=== PATIENT | female | born 2000 | race Caucasian/White ===

== ENCOUNTER 2021-03-09 08:04 | Inpatient (IN) ==
[2021-03-09] MEDS ORDERED: MoRPHine SULFATE 4 MG/ML 1 ML CARP\\VIAL IV STA (08:22)
--- NOTE | 2021-03-09 08:30 | Emergency Department Note ---
Impression & Plan Portal vein thrombosis, Superior mesenteric vein thrombosis, Acute vascular insufficiency of intestine ED Provider Note CHIEF COMPLAINT: Diffuse abdominal pain HISTORY OF PRESENTING ILLNESS: This is a 20-year-old female who presents to the emergency department by private vehicle with complaint of diffuse abdominal pain that started this morning a few hours ago and woke her up out of sleep. The patient was recently evaluated about 1 week ago for similar pain and was diagnosed with portal vein thrombosis and superior mesenteric vein thrombosis. The patient was transferred to [facility] in [place] and was admitted for 3 days on a heparin drip and states that she was discharged on Eliquis. She denies having any interventions done while she was in the hospital. She states she is supposed to follow-up with her primary care provider. She does note that she saw her PCP yesterday and they did some blood work. She also notes a history of asplenia from childhood and states that her PCP stopped her penicillin yesterday, which she has been on daily "for years." She states her PCP said that they stopped the penicillin after age 19 for asplenia. The patient has not had any other changes since yesterday. Patient states that the pain is all over her abdomen, is constant, and she describes it as a dull ache. She rates the pain 8/10. She took 2 extra strength Tylenol this morning without any relief, and she notes this was previously controlling her pain. She also has a history of moyamoya disease and notes that she had brain surgery a little over 1 year ago for this, and she takes aspirin and Plavix since that surgery as well. REVIEW OF SYSTEMS: A complete 10 point review of systems was reviewed with the patient with pertinent positives and negatives as per history of present illness. All else were negative. 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 Nontoxic-appearing and in no acute distress, but appears uncomfortable from pain. Well appearing and well nourished. HEENT: Normocephalic, atraumatic. PERRL, EOMI. TMs normal. Pharynx normal. NECK: Supple, full active range of motion without discomfort. RESPIRATORY: Clear to auscultation bilaterally with no wheezing, crackles, rhonchi or stridor. Equal expansion bilaterally. CARDIOVASCULAR: Regular rate and rhythm with no murmurs, rubs or gallops. Normal peripheral perfusion. No edema. GASTROINTESTINAL: Tender to palpation throughout the diffuse abdomen, no rebound tenderness or guarding. Abdomen is soft and nondistended. Obese abdomen. No palpable masses or HSM. Bowel sounds present in all quadrants. No CVA tenderness bilaterally. MUSCULOSKELETAL: Full range of motion of all joints without discomfort. INTEGUMENTARY: No rash or other significant dermatologic conditions noted. NEUROLOGIC: Alert and oriented X 4 with normal affect. Normal strength and sensation in all 4 extremities. Normal speech. Normal gait observed. ED COURSE AND MEDICAL DECISION MAKING: CC: Patient presenting with complaint of diffuse abdominal pain DIFFERENTIAL DIAGNOSIS: Includes, but not limited to mesenteric ischemia, abdominal vein thrombosis, appendicitis, ovarian cyst, ovarian torsion, ectopic , diverticulitis, UTI, small bowel obstruction,aortic pathology, i nflammatory bowel disease, renal colic, PUD, pancreatitis, biliary pathology, hernia, volvulus, constipation, pulmonary embolism, as well as other pathologies. INTERPRETATION OF LABS: Mild leukocytosis, mild anemia, thrombocytosis, no significant electrolyte abnormality, normal renal function, normal liver enzymes and lipase, elevated alk phos. Urinalysis is negative, negative urine . SARS-CoV-2 negative. MEDICATION RECONCILIATION: I attest that I have personally reviewed the darren prabhakar's current medication list. INITIAL VITAL SIGNS REVIEW: I reviewed the patient's initial vital signs and interpret them as follows: T: Afebrile; BP: Normotensive; HR: Mildly tachycardic; RR: Within normal limit; Pulse Ox: Within normal limits on room air. MDM SUMMARY: Patient was evaluated at bedside, history and physical exam performed. Patient is alert and oriented, in no acute distress, resting calmly in stretcher. She is afebrile and nontoxic-appearing, but is noted to be mildly tachycardic and appears uncomfortable from pain. Diffuse abdominal tenderness to palpation throughout, no acute abdomen. Cardiac monitoring: An order was placed for continuous cardiac monitoring. The monitor shows a rate of 107 bpm with sinus tachycardia rhythm. The patient's chart was reviewed, noting her recent evaluation and transfer for thrombosis of the portal vein and superior mesenteric vein. I did request records from [facility] and reviewed these, she was evaluated by vascular surgery and was discharged after 4-day stay on Eliquis. The patient states she has been taking the Eliquis as prescribed and has not missed any doses. Orders were placed for labs, lactic acid level, UA and urine , IV morphine for pain, CT angio of the chest, abdomen and pelvis to evaluate for worsening abdominal pain and flank pain in the setting of tachycardia with known thrombus. Patient discussed with Dr. Wiley, who agrees with my assessment, plan, and disposition. Labs and imaging reviewed, labs notable for mild leukocytosis and her lactate is slightly elevated. 1 L normal saline IV fluid bolus was ordered for hydration and a repeat lactate is pending. CTA of the chest is negative for PE or other abnormality. CTA of the abdomen/pelvis shows progression of her thrombus, with interval development of mesenteric venous congestion associated with multiple small bowel loops within the left mid abdomen and trace interloop fluid. There was no pneumatosis, portal venous gas, or bowel obstruction. Given the findings on the patient's abdominal CTA, I did speak with vascular s suzi at [facility] in [place], Dr. Lora. He did not feel anything needed to be done from a vascular standpoint, but recommended the patient be evaluated by a general surgeon and recommended the patient be transferred to their facility due to her complicated history. I spoke on the phone with Dr. Mendoza, general surgery at [facility], who agreed to accept the patient in transfer. However, they do not have any available beds and she states that it may be as much as 24 hours until they are able to accept the patient in transfer. Dr. Mendoza recommended q6hour lactic acid levels and MIVF and keep her NPO for now. I spoke with Myrna Cerda PA-C with general surgery at [facility], who agrees to be available for the patient's care. I also spoke with MACEY Martinez with the [facility] Hospitalist service, who agrees to evaluate the patient for admission here pending transfer to [facility]. All consent forms and paperwork was completed for the transfer. Patient reassessed multiple times throughout ED stay, she has remained hemodynamically stable and afebrile, her abdominal pain is improved after the morphine and her abdominal exam has remained soft and with no concerns for peritoneal signs. The patient was updated on all results and plan for temporary admission here until she is able to be transferred to [place], all questions were answered to the best of my ability the patient was agreeable to the plan of care. The patient was stable at time of admission. The chart was completed utilizing [employer] Speech voice recognition software. Grammatical errors, random word insertions, pronoun errors, and incomplete sentences are an occasional consequence of this system due to software limitations, ambient noise, and hardware issues. Any formal questions or concerns about the content, text, or information contained within the body of this dictation should be directly addressed to the nurse practitioner for c larification. Past Med/Surg History Medical History Asplenia Brock brock disease Social History Smoking Status: Never smoker Preferred Language: Kyrgyz Feels Safe at Home: Yes Allergies Allergies Allergy/AdvReac Type Severity Reaction Status Date / Time vancomycin Allergy Mild Red/Itchy Unverified 03/09/21 09:49 skin Home Meds Home Medications Medication Instructions Recorded Confirmed aspirin 81 mg tablet,delayed 81 mg PO QAM 03/01/21 03/09/21 release (Aspirin Low Dose) clopidogrel 75 mg tablet (Plavix) 75 mg PO QAM 03/01/21 03/09/21 acetaminophen 500 mg tablet 1,000 mg PO Q6H PRN 03/09/21 03/09/21 (Tylenol Extra Strength) apixaban 5 mg tablet (Eliquis) 5 mg PO BID 03/09/21 03/09/21 benztropine 2 mg tablet 2 mg PO BID 03/09/21 03/09/21 duloxetine 30 mg capsule,delayed 30 mg PO DAILY 03/09/21 03/09/21 release duloxetine 60 mg capsule,delayed 60 mg PO DAILY 03/09/21 03/09/21 release famotidine 20 mg tablet 20 mg PO BID 03/09/21 03/09/21 gabapentin 800 mg tablet 800 mg PO TID 03/09/21 03/09/21 haloperidol 5 mg tablet 5 mg PO DAILY 03/09/21 03/09/21 haloperidol 5 mg tablet 10 mg PO HS 03/09/21 03/09/21 hydroxyzine pamoate 50 mg capsule 50 mg PO TID PRN 03/09/21 03/09/21 mirtazapine 15 mg tablet 15 mg PO HS 03/09/21 03/09/21 propranolol 40 mg tablet 40 mg PO BID 03/09/21 03/09/21 Results & Data (ED) Vital Signs Vital Signs - 24 hr 03/09/21 08:04 03/09/21 08:07 03/09/21 08:22 Temperature 37 C 36.8 C Temperature Source Oral Temporal Artery Scan Pulse Rate 107 H Pulse Rate [Right Finger] 78 Pulse Rhythm [Right Finger] Regular Pulse Strength [Right Finger] Normal Respiratory Rate 17 18 Respiratory Effort / Characteristics Non-Labored Respiratory Depth Normal Blood Pressure 128/83 Blood Pressure [Right Arm] 131/71 Blood Pressure Mean 98 Blood Pressure Mean [Right Arm] 91 Pulse Oximetry 94 98 94 Oxygen Delivery Method Room Air Room Air Room Air Sepsis Recent Fever Within 48 Hours No Sepsis New/Unexplained Change in Mental Status No Sepsis Action Taken by Nursing No Action Required 03/09/21 10:04 03/09/21 12:00 03/09/21 13:54 Temperature 36.6 C 37 C 36.8 C Temperature Source Oral Oral Oral Pulse Rate Pulse Rate [Right Finger] 74 75 81 Pulse Rhythm [Right Finger] Regular Regular Regular Pulse Strength [Right Finger] Respiratory Rate 18 15 16 Respiratory Effort / Characteristics Respiratory Depth Normal Blood Pressure Blood Pressure [Right Arm] 115/67 117/77 116/76 Blood Pressure Mean Blood Pressure Mean [Right Arm] 83 90 89 Pulse Oximetry 94 97 98 Oxygen Delivery Method Room Air Room Air Sepsis Recent Fever Within 48 Hours Sepsis New/Unexplained Change in Mental Status Sepsis Action Taken by Nursing Laboratory Data Result diagrams: 03/09/21 08:55 03/09/21 08:55 Lab Results 03/09/21 03/09/21 03/09/21 Range/Units 08:19 08:19 08:55 WBC 12.12 H (4.8-10.8) K/uL RBC 3.95 L (4.2-5.4) M/uL Hgb 11.7 L (12.0-16.0) g/dL Hct 34.4 L (37-47) % MCV 87.1 (80-100) fL MCH 29.6 (25-34) pg MCHC 34.0 (32-36) g/dL RDW Std Deviation 44.7 (36.4-46.3) fL RDW Coeff of Toni 14.1 (11.5-14.5) % Plt Count 934 H (130-400) K/uL MPV 8.6 (7.4-10.4) fL Immature Gran % (Auto) 0.4 % Neut % (Auto) 63.6 % Lymph % (Auto) 20.4 % [place] % (Auto) 13.2 % Eos % (Auto) 2.1 % Baso % (Auto) 0.3 % Neut # (Auto) 7.71 H (1.4-6.5) K/uL Lymph # (Auto) 2.47 (1.2-3.4) K/uL [place] # (Auto) 1.60 H (0.11-0.59) K/uL Eos # (Auto) 0.25 (0-0.5) K/uL Baso # (Auto) 0.04 (0-0.2) K/uL Immature Gran # (Auto) 0.05 H (0.00-0.02) K/uL Sodium (136-145) mmol/L Potassium (3.5-5.1) mmol/L Chloride (98-107) mmol/L Carbon Dioxide (21-32) mmol/L Anion Gap (3-11) BUN (7-18) mg/dl Creatinine (0.6-1.2) mg/dl Est Cr Clr Drug Dosing ml/min Est GFR ( Amer) ml/min Est GFR (Non-Af Amer) ml/min BUN/Creatinine Ratio (10-20) Glucose (70-99) mg/dl Lactate (0.4-2.0) mmol/L Calcium (8.5-10.1) mg/dl Total Bilirubin (0.2-1) mg/dl AST (15-37) U/L ALT (12-78) U/L Alkaline Phosphatase (45-117) U/L Total Protein (6.4-8.2) gm/dl Albumin (3.4-5.0) gm/dl Globulin (2.5-4.0) gm/dl Albumin/Globulin Ratio (0.9-2) Lipase (73-393) U/L Urine Color Yellow Urine Appearance Clear (Clear) Urine pH 6.5 (4.5-7.5) Ur Specific [place] 1.025 (1.000-1.030) Urine Protein Negative (Negative) Urine Glucose (UA) Negative (Negative) Urine Ketones Negative (Negative) Urine Blood Negative (Negative) Urine Nitrite Negative (Negative) Urine Bilirubin Negative (Negative) Urine Urobilinogen Negative (Negative) Ur Leukocyte Esterase Negative (Negative) POC Ur Test NEG (NEG) COVID-19 Eval Order SARS-CoV-2 (PCR) (Negative) 03/09/21 03/09/21 03/09/21 Range/Units 08:55 09:09 13:15 WBC (4.8-10.8) K/uL RBC (4.2-5.4) M/uL Hgb (12.0-16.0) g/dL Hct (37-47) % MCV (80-100) fL MCH (25-34) pg MCHC (32-36) g/dL RDW Std Deviation (36.4-46.3) fL RDW Coeff of Toni (11.5-14.5) % Plt Count (130-400) K/uL MPV (7.4-10.4) fL Immature Gran % (Auto) % Neut % (Auto) % Lymph % (Auto) % [place] % (Auto) % Eos % (Auto) % Baso % (Auto) % Neut # (Auto) (1.4-6.5) K/uL Lymph # (Auto) (1.2-3.4) K/uL [place] # (Auto) (0.11-0.59) K/uL Eos # (Auto) (0-0.5) K/uL Baso # (Auto) (0-0.2) K/uL Immature Gran # (Auto) (0.00-0.02) K/uL Sodium 139 (136-145) mmol/L Potassium 4.2 (3.5-5.1) mmol/L Chloride 111 H (98-107) mmol/L Carbon Dioxide 22 (21-32) mmol/L Anion Gap 6.0 (3-11) BUN 9 (7-18) mg/dl Creatinine 0.60 (0.6-1.2) mg/dl Est Cr Clr Drug Dosing 156.1 ml/min Est GFR ( Amer) 150.0 ml/min Est GFR (Non-Af Amer) 129.4 ml/min BUN/Creatinine Ratio 14.5 (10-20) Glucose 100 H (70-99) mg/dl Lactate 2.2 H* (0.4-2.0) mmol/L Calcium 9.0 (8.5-10.1) mg/dl Total Bilirubin 0.3 (0.2-1) mg/dl AST 34 (15-37) U/L ALT 58 (12-78) U/L Alkaline Phosphatase 258 H (45-117) U/L Total Protein 7.0 (6.4-8.2) gm/dl Albumin 3.1 L (3.4-5.0) gm/dl Globulin 3.9 (2.5-4.0) gm/dl Albumin/Globulin Ratio 0.8 L (0.9-2) Lipase 293 (73-393) U/L Urine Color Urine Appearance (Clear) Urine pH (4.5-7.5) Ur Specific [place] (1.000-1.030) Urine Protein (Negative) Urine Glucose (UA) (Negative) Urine Ketones (Negative) Urine Blood (Negative) Urine Nitrite (Negative) Urine Bilirubin (Negative) Urine Urobilinogen (Negative) Ur Leukocyte Esterase (Negative) POC Ur Test (NEG) COVID-19 Eval Order Covid19 at [facility] SARS-CoV-2 (PCR) (Negative) 03/09/21 03/09/21 Range/Units 13:15 13:50 WBC (4.8-10.8) K/uL RBC (4.2-5.4) M/uL Hgb (12.0-16.0) g/dL Hct (37-47) % MCV (80-100) fL MCH (25-34) pg MCHC (32-36) g/dL RDW Std Deviation (36.4-46.3) fL RDW Coeff of Toni (11.5-14.5) % Plt Count (130-400) K/uL MPV (7.4-10.4) fL Immature Gran % (Auto) % Neut % (Auto) % Lymph % (Auto) % [place] % (Auto) % Eos % (Auto) % Baso % (Auto) % Neut # (Auto) (1.4-6.5) K/uL Lymph # (Auto) (1.2-3.4) K/uL [place] # (Auto) (0.11-0.59) K/uL Eos # (Auto) (0-0.5) K/uL Baso # (Auto) (0-0.2) K/uL Immature Gran # (Auto) (0.00-0.02) K/uL Sodium (136-145) mmol/L Potassium (3.5-5.1) mmol/L Chloride (98-107) mmol/L Carbon Dioxide (21-32) mmol/L Anion Gap (3-11) BUN (7-18) mg/dl Creatinine (0.6-1.2) mg/dl Est Cr Clr Drug Dosing ml/min Est GFR ( Amer) ml/min Est GFR (Non-Af Amer) ml/min BUN/Creatinine Ratio (10-20) Glucose (70-99) mg/dl Lactate 0.7 (0.4-2.0) mmol/L Calcium (8.5-10.1) mg/dl Total Bilirubin (0.2-1) mg/dl AST (15-37) U/L ALT (12-78) U/L Alkaline Phosphatase (45-117) U/L Total Protein (6.4-8.2) gm/dl Albumin (3.4-5.0) gm/dl Globulin (2.5-4.0) gm/dl Albumin/Globulin Ratio (0.9-2) Lipase (73-393) U/L Urine Color Urine Appearance (Clear) Urine pH (4.5-7.5) Ur Specific [place] (1.000-1.030) Urine Protein (Negative) Urine Glucose (UA) (Negative) Urine Ketones (Negative) Urine Blood (Negative) Urine Nitrite (Negative) Urine Bilirubin (Negative) Urine Urobilinogen (Negative) Ur Leukocyte Esterase (Negative) POC Ur Test (NEG) COVID-19 Eval Order SARS-CoV-2 (PCR) NEGATIVE (Negative) Administered Medications Discontinued Medications Sodium Chloride (Nss 1000ml) 1,000 mls @ 999 mls/hr IV .Q1H1M ONE Stop: 03/09/21 13:37 Last Infusion: 03/09/21 13:57 Dose: 0 mls/hr Documented by: [id number] Admin: 03/09/21 12:57 Dose: 999 mls/hr Documented by: [id number] Morphine Sulfate (Morphine Sulfate 4 Mg/Ml 1 Ml Carp\\Vial) 4 mg IV NOW STA Stop: 03/09/21 08:23 Last Admin: 03/09/21 09:33 Dose: 4 mg Documented by: [id number] Imaging Data Radiologist's Impression: Abdomen/Pelvis CTA 03/09/21 08:22 CT ANGIOGRAPHY OF THE ABDOMEN AND PELVIS CLINICAL HISTORY: diffuse abd pain, recent portal and SMV thrombosis COMPARISON STUDY: CT of the abdomen and pelvis March 01, 2021. TECHNIQUE: Axial images of the abdomen and pelvis were obtained during arterial phase following intravenous injection of 120 cc Optiray 320 IV. Sagittal and coronal reconstructions were viewed as well as maximal intensity projections on an independent 3-D workstation. Automated exposure control was utilized for the study. A dose lowering technique was utilized adhering to the principles of ALARA. FINDINGS: Please note that the chest CT will be reported separately. No pneumatosis, free air or portal venous gas is present. No hepatic lesions are present. There is slight heterogeneity of the liver. Note is again made of extensive portal and superior mesenteric venous thrombus which was shown on CT of March 01, 2021. The amount of flow within the superior mesenteric vein has slightly decreased since prior examination. Vessels are essentially thrombosed. Flow within the feeding veins is also diminished. The findings represent slight progression of extensive thrombus. Note is again made of reactive stranding within the mesentery. Mildly enlarged lymph nodes are also unchanged. Mesenteric venous congestion associated with multiple small bowel loops within the left mid abdomen has increased. There is trace interloop fluid. No definite bowel wall thickening is noted. There is trace ascites. The appendix is normal. The spleen is absent. The adrenal glands, kidneys and pancreas are unremarkable. There is no biliary or pancreatic ductal dilatation. IMPRESSION: 1. Extensive portal and superior mesenteric venous thrombosis with slight progression of thrombosis since CT of March 01, 2021, as detailed above. 2. Interval development of mesenteric venous congestion associated with multiple small bowel loops within the left mid abdomen with trace interloop fluid. No pne umatosis or portal venous gas. 3. Otherwise, unchanged appearance of the abdomen and pelvis, as described above. ACT 112: Negative or not required by law. Electronically signed by: Fitz Javier M.D. 03/09/2021 11:14 AM Chest CTA 03/09/21 08:22 CT ANGIOGRAM OF THE CHEST CLINICAL HISTORY: recent thrombus, tachycardic, flank pain COMPARISON STUDY: No previous studies for comparison. TECHNIQUE: Following the IV administration of 120 mL of Optiray, CT angiogram of the thorax was performed from the thoracic inlet to the lung bases utilizing the pulmonary embolus protocol. Images are reviewed in the axial, sagittal, and coronal planes. IV contrast was administered without complication. MIP imaging was performed. A dose lowering technique was utilized adhering to the principles of ALARA. CT DOSE: 883.34 mGy.cm FINDINGS: Left axillary lymph nodes are the upper limits of normal in size. There is no pathologic mediastinal or hilar lymphadenopathy There was no evidence of thoracic aortic dilatation. There is a left aortic arch with an aberrant right subclavian artery. There were no pulmonary artery filling defects to indicate acute pulmonary embolism. No pleural effusions are visualized. There was no evidence of focal pulmonary consolidation. There is an azygos fissure. The visualized portions the upper abdomen suggest enlargement of the superior mesenteric vein. This is consistent with the patient's known superior mesenteric and portal vein thrombus. IMPRESSION: 1. No evidence of acute pulmonary embolism. 2. Left aortic arch with an aberrant right subclavian artery ACT 112: Negative or not required by law. Electronically signed by: Lemuel Winn M.D. 03/09/2021 10:41 AM Discharge Plan Visit Data Chief Complaint: Abdominal Pain Stated Complaint: BACK AND ABDOMINAL PAIN ED Provider: Christopher Wiley ED Midlevel Provider: Adeline Zhu Discharge Problem: Portal vein thrombosis, Superior mesenteric vein thrombosis, Acute vascular insufficiency of intestine Patient Disposition: Admitted As Inpatient Condition: Good Forms Stand Alone Forms: My [employer] Prescriptions Prescriptions: No Action clopidogrel [Plavix] 75 mg Tablet 75 mg PO QAM RF: 0 aspirin [Aspirin Low Dose] 81 mg Tablet,Delayed Release (Dr/Ec) 81 mg PO QAM RF: 0 acetaminophen [Tylenol Extra Strength] 500 mg Tablet 1,000 mg PO Q6H PRN (Reason: Pain) RF: 0 gabapentin 800 mg tablet 800 mg PO TID RF: 0 haloperidol 5 mg tablet 5 mg PO DAILY RF: 0 haloperidol 5 mg tablet 10 mg PO HS RF: 0 hydroxyzine pamoate 50 mg capsule 50 mg PO TID PRN (Reason: Anxiety) RF: 0 propranolol 40 mg tablet 40 mg PO BID RF: 0 famotidine 20 mg tablet 20 mg PO BID RF: 0 benztropine 2 mg tablet 2 mg PO BID RF: 0 mirtazapine 15 mg tablet 15 mg PO HS RF: 0 duloxetine 30 mg capsule,delayed release(DR/EC) 30 mg PO DAILY RF: 0 duloxetine 60 mg capsule,delayed release(DR/EC) 60 mg PO DAILY RF: 0 Eliquis 5 mg tablet 5 mg PO BID RF: 0 Referrals Referrals: Babatunde Bergman MD [Primary Care Provider] -
[2021-03-09 09:23] LABS: Basophils # (auto) 0.04 K/uL (0-0.2); Basophils % (auto) 0.3 %; Eosinophils # (auto) 0.25 K/uL (0-0.5); Eosinophils % (auto) 2.1 %; Hematocrit (blood only) 34.4 % (37-47); Hemoglobin 11.7 g/dL (12.0-16.0); Immature Granulocytes # (auto) 0.05 K/uL (0.00-0.02); Immature Granulocytes % (auto) 0.4 %; Lymphocytes # (auto) 2.47 K/uL (1.2-3.4); Lymphocytes % (auto) 20.4 %; Mean Corpuscular Hemoglobin 29.6 pg (25-34); Mean Corpuscular Volume 87.1 fL (80-100); Mean Platelet Volume 8.6 fL (7.4-10.4); Monocytes % (auto) 13.2 %; Neutrophils # (auto) 7.71 K/uL (1.4-6.5); Neutrophils % (auto) 63.6 %; Platelet Count 934 K/uL (130-400); RDW Coefficient of Variation 14.1 % (11.5-14.5); RDW Standard Deviation 44.7 fL (36.4-46.3); Red Blood Count 3.95 M/uL (4.2-5.4); White Blood Count 12.12 K/uL (4.8-10.8)
[2021-03-09 09:24] LABS: Appearance Urine Clear (Clear); Bilirubin Urine Negative (Negative); Blood Urine Negative (Negative); Color Urine Yellow; Glucose Urine UA Negative (Negative); Ketones Urine Negative (Negative); Leukocyte Esterase Urine Negative (Negative); Nitrite Urine Negative (Negative); Protein Urine Negative (Negative); Specific Gravity Urine 1.025 (1.000-1.030); Urobilinogen Urine Negative (Negative); pH Urine 6.5 (4.5-7.5)
[2021-03-09 09:41] LABS: Albumin Level 3.1 gm/dl (3.4-5.0); BUN Creatinine Ratio 14.5 (10-20); Creatinine Clr Calc Pharmacy 156.1 ml/min; Est GFR (Non-African American) 129.4 ml/min; Potassium 4.2 mmol/L (3.5-5.1)
[2021-03-09 09:44] LABS: Albumin Globulin Ratio 0.8 (0.9-2); Bilirubin,Total 0.3 mg/dl (0.2-1); Globulin 3.9 gm/dl (2.5-4.0)
--- NOTE | 2021-03-09 10:43 | CT Scan Report ---
CT ANGIOGRAM OF THE CHEST CLINICAL HISTORY: recent thrombus, tachycardic, flank pain COMPARISON STUDY: No previous studies for comparison. TECHNIQUE: Following the IV administration of 120 mL of Optiray, CT angiogram of the thorax was perfo rmed from the thoracic inlet to the lung bases utilizing the pulmonary embolus protocol. Images are r eviewed in the axial, sagittal, and coronal planes. IV contrast was administered without complication . MIP imaging was performed. A dose lowering technique was utilized adhering to the principles of AL LU. CT DOSE: 883.34 mGy.cm FINDINGS: Left axillary lymph nodes are the upper limits of normal in size. There is no pathologic mediastinal or hilar lymphadenopathy There was no evidence of thoracic aortic dilatation. There is a left aortic arch with an aberrant rig ht subclavian artery. There were no pulmonary artery filling defects to indicate acute pulmonary embolism. No pleural effusions are visualized. There was no evidence of focal pulmonary consolidation. There is an azygos fissure. The visualized portions the upper abdomen suggest enlargement of the superior mesenteric vein. This i s consistent with the patient's known superior mesenteric and portal vein thrombus. IMPRESSION: 1. No evidence of acute pulmonary embolism. 2. Left aortic arch with an aberrant right subclavian artery ACT 112: Negative or not required by law. Electronically signed by: Lemuel Winn M.D. 03/09/2021 10:41 AM
--- NOTE | 2021-03-09 11:15 | CT Scan Report ---
CT ANGIOGRAPHY OF THE ABDOMEN AND PELVIS CLINICAL HISTORY: diffuse abd pain, recent portal and SMV thrombosis COMPARISON STUDY: CT of the abdomen and pelvis March 01, 2021. TECHNIQUE: Axial images of the abdomen and pelvis were obtained during arterial phase following intra venous injection of 120 cc Optiray 320 IV. Sagittal and coronal reconstructions were viewed as well a s maximal intensity projections on an independent 3-D workstation. Automated exposure control was uti lized for the study. A dose lowering technique was utilized adhering to the principles of ALARA. FINDINGS: Please note that the chest CT will be reported separately. No pneumatosis, free air or port al venous gas is present. No hepatic lesions are present. There is slight heterogeneity of the liver. Note is again made of extensive portal and superior mesenteric venous thrombus which was shown on CT of March 01, 2021. The amount of flow within the superior mesenteric vein has slightly decreased since prior examination. Vessels are essentially thrombosed. Flow within the feeding veins is also diminis hed. The findings represent slight progression of extensive thrombus. Note is again made of reactive stranding within the mesentery. Mildly enlarged lymph nodes are also unchanged. Mesenteric venous co ngestion associated with multiple small bowel loops within the left mid abdomen has increased. There is trace interloop fluid. No definite bowel wall thickening is noted. There is trace ascites. The [place] endix is normal. The spleen is absent. The adrenal glands, kidneys and pancreas are unremarkable. The re is no biliary or pancreatic ductal dilatation. IMPRESSION: 1. Extensive portal and superior mesenteric venous thrombosis with slight progression of thrombosis s keya CT of March 01, 2021, as detailed above. 2. Interval development of mesenteric venous congestion associated with multiple small bowel loops wi thin the left mid abdomen with trace interloop fluid. No pneumatosis or portal venous gas. 3. Otherwise, unchanged appearance of the abdomen and pelvis, as described above. ACT 112: Negative or not required by law. Electronically signed by: Fitz Javier M.D. 03/09/2021 11:14 AM
[2021-03-09] MEDS ORDERED: SODIUM CHLORIDE 0.9% 1000ML 1,000 ML IV ONE (12:37)
--- NOTE | 2021-03-09 13:45 | Surgery Consultation ---
Date of Consultation March 09, 2021 Assessment & Plan (1) Superior mesenteric vein thrombosis: This is a 20y F with a PMH of brock brock disease, and splenectomy in 2002, who presents to the [facility] ED on 03/09/21 with complaints of abdominal pain. Of significance the patient was here last week and diagnosed with portal and superior mesenteric vein thrombus. She was transferred to [facility] and was on 3 days of IV heparin and transitioned to eliquis prior to discharge. Patient has been doing okay up until this AM she woke up with more severe abdominal pain. She presented to the ER where a CT a/p obtained showed "extensive portal and superior mesenteric venous thrombosis with slight progression of thrombosis since CT of March 01, 2021. As well as interval development of mesenteric venous congestion associated with multiple small bowel loops within the left mid abdomen with trace interloop fluid. No pneumatosis or portal venous gas." WBC 12. Lactate 2.2. Vital signs are stable. On examination patient's abdomen is soft and tender to palpation in the epigastric region. She reports mild improve ment in her pain since arrival. Plan is in place for patient to be transferred to [facility] for further treatment, however there are no beds at this current time. For now the hospitalists will plan to admit with our services on consult if needed. We recommend a vascular consult given the extent of thrombus, should she need anything done procedurally while she is here should she decompensate. We would want to avoid an extensive bowel resection in this patient. In the meantime she will be started on an IV heparin gtt. Plan to continue to monitor patient and repeat labs and lactate q6h. Patient was seen and examined by Dr. Keenan. (2) Portal vein thrombosis: Supervising Physician Co-Signing Physician Notes Last evening I discussed situation with Dr. Oneill vascular surgery apparently he had been contacted on the patient prior visit to the emergency room where he recommended transferring to a tertiary center possibility of doing a TIPS procedure and chemical thrombolysis The patient has a bed available this morning at [facility] and is waiting to be transferred Patient states her abdomen is unchanged as far as discomfort from yesterday and pretty much the physical exam confirms that History of Present Illness History of Present Illness This is a 20y F with a PMH of brock brock disease, & splenectomy in 2002 who presents to the [facility] ED on 03/09/21 with complaints of abdominal pain. Of significance the patient was here last week and diagnosed with portal and superior mesenteric vein thrombus. She was transferred to [facility] due to multiple medical issues and she was on IV heparin for a few days prior to transitioning to Eliquis and discharging to home. Patient says since diagnosis she has had some mild abdominal pain that has been controlled with Tylenol. She went to her PCP yesterday for post discharge follow up and everything went well. Only change is they took her off her twice daily penicillin she was on since s/p splenectomy. Today patient woke up with worsening abdominal pain. She drove her significant other to work and felt like the pain increased over bumps in the road. Upon returning home she attempted to take a nap, but could not get comfortable and sleep. She tried taking Tylenol which usually works for her but today it did not. She then presented to the ER for further evaluation. In the ER a CT a/p was performed that revealed "extensive portal and superior mesenteric venous thrombosis with slight progression of thrombosis since CT of March 01, 2021. As well as interval development of mesenteric venous congestion associated with multiple small bowel loops within the left mid abdomen with trace interloop fluid. No pneumatosis or portal venous gas." Patient denies any fever/chills, nausea/vomiting, diarrhea/constipation, bloody stools. She says she has been eating well without issues. Allergies Allergy/AdvReac Type Severity Reaction Status Date / Time vancomycin Allergy Mild Red/Itchy Unverified 03/09/21 09:49 skin Home Medications Medication Instructions Recorded Confirmed Type aspirin 81 mg tablet,delayed 81 mg PO QAM 03/01/21 03/09/21 History release (Aspirin Low Dose) clopidogrel 75 mg tablet (Plavix) 75 mg PO QAM 03/01/21 03/09/21 History acetaminophen 500 mg tablet 1,000 mg PO Q6H PRN 03/09/21 03/09/21 History (Tylenol Extra Strength) apixaban 5 mg tablet (Eliquis) 5 mg PO BID 03/09/21 03/09/21 History benztropine 2 mg tablet 2 mg PO BID 03/09/21 03/09/21 History duloxetine 30 mg capsule,delayed 30 mg PO DAILY 03/09/21 03/09/21 History release duloxetine 60 mg capsule,delayed 60 mg PO DAILY 03/09/21 03/09/21 History release famotidine 20 mg tablet 20 mg PO BID 03/09/21 03/09/21 History gabapentin 800 mg tablet 800 mg PO TID 03/09/21 03/09/21 History haloperidol 5 mg tablet 5 mg PO DAILY 03/09/21 03/09/21 History haloperidol 5 mg tablet 10 mg PO HS 03/09/21 03/09/21 History hydroxyzine pamoate 50 mg capsule 50 mg PO TID PRN 03/09/21 03/09/21 History mirtazapine 15 mg tablet 15 mg PO HS 03/09/21 03/09/21 History propranolol 40 mg tablet 40 mg PO BID 03/09/21 03/09/21 History Patient History Medical History Asplenia Intermittent asthma Brock brock disease Portal vein thrombosis PTSD (post-traumatic stress disorder) Schizoaffective disorder Superior mesenteric vein thrombosis Thrombocytosis Family History Other Family history non-contributory Social History Smoking Status: Never smoker Hx Alcohol Use: No Hx Substance Use: No Preferred Language: Irish Communication Ability: Effective Online User Experience Strategist Required: No Beliefs That Will Affect Care: None Current Living Situation: Spouse Other Information That Helps Us Care for You: No Feels Safe at Home: Yes Safety Concerns: Feels Safe At This Time Assistive Devices: None Review of Systems Review of Systems: awake/alert Constitutional: no fever and no chills Respiratory: no dyspnea Cardiovascular: no chest pain Gastrointestinal: + abdominal pain; no bloating, no nausea, no vomiting, no change in bowel habits and no blood in stools Physical Exam Physical Exam: awake/alert Constitutional: no acute distress Respiratory: normal respiratory effort Gastrointestinal (Abdomen): Inspection/Auscultation: abdomen not distended Percussion/Palpation: + abdomen tender (in epigastric region) and abdomen soft Results & Data ([facility]) Vital Signs (Past 12 Hours) Vital Signs Temp Pulse Pulse Resp BP BP Pulse Ox 03/09/21 12:00 37 C 75 15 117/77 97 03/09/21 10:04 36.6 C 74 18 115/67 94 03/09/21 08:22 94 03/09/21 08:07 36.8 C 107 H 18 128/83 98 03/09/21 08:04 37 C 78 17 131/71 94 PG Care Time/CCT Total # of Minutes Spent Total Time Spent with Patient: Total time spent is greater than 50% in coordination of care (as documented) at patient's floor/unit and/or counseling patient: Coding Level of Care Code 35399 Inpt Consult Level 3 Diagnoses Superior mesenteric vein thrombosis K55.069 Portal vein thrombosis I81
--- NOTE | 2021-03-09 18:10 | History & Physical Report ---
Date of Service March 09, 2021 Assessment & Plan (1) Superior mesenteric vein thrombosis: (2) Portal vein thrombosis: Plan: 20-year-old female with PMH of moyamoya disease, splenectomy in 2002 who presented to the ED with reports of abdominal pain. Diagnosed last week with superior mesenteric venous and portal vein thrombosis. Treated at [facility] with IV heparin with transition to Eliquis. Repeat CTA ABD/pelvis today shows slight progression of thrombosis. Patient accepted in transfer to [facility] however awaiting bed. Case was discussed with Dr. Geovanni Hair with hematology who recommends holding Eliquis and starting patient on IV heparin. History of Present Illness Chief Complaint: Abdominal pain Primary Care Provider: Babatunde Bergman MD 20-year-old female with PMH intermittent asthma, moyamoya disease, history of splenectomy with resultant thrombocytosis, schizoaffective disorder, PTSD, and other problems listed below who presents to the ED for evaluation abdominal pain. 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 Patient was transferred to [facility] for further management. Patient was placed on a heparin drip and subsequently transitioned to Eliquis. Patient discharged on 03/06. Reports abdominal pain was controlled with Tylenol until today. She then presented back to the ED for further evaluation. Patient reports pain is located in the mid abdomen and along both sides. She denies fevers and chills. No nausea, vomiting, diarrhea. Denies chest pain or shortness of breath. No lightheadedness, dizziness, diaphoresis, syncopal events. Denies urinary symptoms. 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 Patient is hemodynamically stable. Initial lactate 2.2, repeat 0.7. Vascular surgery at [facility] was contacted and patient was accepted in transfer however no beds available at this time. Case was discussed with Dr. Geovanni Hair, hematology, who recommends holding Eliquis and starting IV heparin drip. Allergies Allergy/AdvReac Type Severity Reaction Status Date / Time vancomycin Allergy Mild Red/Itchy Unverified 03/09/21 09:49 skin Home Medications Medication Instructions Recorded Confirmed Type aspirin 81 mg tablet,delayed 81 mg PO QAM 03/01/21 03/09/21 History release (Aspirin Low Dose) clopidogrel 75 mg tablet (Plavix) 75 mg PO QAM 03/01/21 03/09/21 History acetaminophen 500 mg tablet 1,000 mg PO Q6H PRN 03/09/21 03/09/21 History (Tylenol Extra Strength) apixaban 5 mg tablet (Eliquis) 5 mg PO BID 03/09/21 03/09/21 History benztropine 2 mg tablet 2 mg PO BID 03/09/21 03/09/21 History duloxetine 30 mg capsule,delayed 30 mg PO DAILY 03/09/21 03/09/21 History release duloxetine 60 mg capsule,delayed 60 mg PO DAILY 03/09/21 03/09/21 History release famotidine 20 mg tablet 20 mg PO BID 03/09/21 03/09/21 History gabapentin 800 mg tablet 800 mg PO TID 03/09/21 03/09/21 History haloperidol 5 mg tablet 5 mg PO DAILY 03/09/21 03/09/21 History haloperidol 5 mg tablet 10 mg PO HS 03/09/21 03/09/21 History hydroxyzine pamoate 50 mg capsule 50 mg PO TID PRN 03/09/21 03/09/21 History mirtazapine 15 mg tablet 15 mg PO HS 03/09/21 03/09/21 History propranolol 40 mg tablet 40 mg PO BID 03/09/21 03/09/21 History Past Med/Surg History Medical History Asplenia Intermittent asthma Brock brock disease Portal vein thrombosis PTSD (post-traumatic stress disorder) Schizoaffective disorder Superior mesenteric vein thrombosis Thrombocytosis Family History Other Family history non-contributory Social History Smoking Status: Never smoker Hx Alcohol Use: No Hx Substance Use: No Preferred Language: Maltese Communication Ability: Effective Mash Tub Cooker Required: No Beliefs That Will Affect Care: None Current Living Situation: Spouse Feels Safe at Home: Yes Assistive Devices: None Review of Systems Review of Systems: ROS per HPI, all other systems reviewed and negative Physical Exam Constitutional: WD/WN, vitals as above Eyes: PERRL, conjunctivae normal, anicteric sclerae ENMT: external ear and nose normal, oropharynx normal Respiratory: normal respiratory effort, lungs clear to auscultation Cardiovascular: Rate/Rhythm: regular rate and regular rhythm Vessels: normal peripheral pulses Extremities: no edema Gastrointestinal (Abdomen): normal bowel sounds, soft, nontender, no hepatosplenomegaly Musculoskeletal: no cyanosis or clubbing, extremities motor strength 5/5 Skin: no rashes, warm and dry Neurologic: PERRL, EOMI, accommodation nl, no face palsy, no dysarthria Psychiatric: A+Ox3, euthymic affect Results & Data Results & Data ([facility]) Vital Signs (Past 12 Hours) Vital Signs Temp Pulse Pulse Resp BP BP Pulse Ox 03/09/21 17:39 36.8 C 84 18 95 03/09/21 16:25 36.8 C 70 17 116/59 L 97 03/09/21 15:00 36.8 C 72 18 106/84 97 03/09/21 13:54 36.8 C 81 16 116/76 98 03/09/21 12:00 37 C 75 15 117/77 97 03/09/21 10:04 36.6 C 74 18 115/67 94 03/09/21 08:22 94 03/09/21 08:07 36.8 C 107 H 18 128/83 98 03/09/21 08:04 37 C 78 17 131/71 94 Laboratory Results Short CBC 03/09/21 03/09/21 03/09/21 Range/Units 08:55 09:09 13:50 WBC 12.12 H (4.8-10.8) K/uL Hgb 11.7 L (12.0-16.0) g/dL Hct 34.4 L (37-47) % Plt Count 934 H (130-400) K/uL Lactate 2.2 H* 0.7 (0.4-2.0) mmol/L 03/09/21 03/09/21 Range/Units 18:55 19:11 WBC 11.08 H (4.8-10.8) K/uL Hgb 12.2 (12.0-16.0) g/dL Hct 36.7 L (37-47) % Plt Count 912 H (130-400) K/uL Lactate 1.2 (0.4-2.0) mmol/L [facility] 03/09/21 08:55 Sodium 139 Potassium 4.2 Chloride 111 H Carbon Dioxide 22 BUN 9 Creatinine 0.60 Glucose 100 H Calcium 9.0 Liver Function 03/09/21 Range/Units 08:55 Total Bilirubin 0.3 (0.2-1) mg/dl AST 34 (15-37) U/L ALT 58 (12-78) U/L Alkaline Phosphatase 258 H (45-117) U/L Albumin 3.1 L (3.4-5.0) gm/dl Urine 03/09/21 Range/Units 08:19 Urine Color Yellow Urine Appearance Clear (Clear) Urine pH 6.5 (4.5-7.5) Ur Specific [place] 1.025 (1.000-1.030) Urine Protein Negative (Negative) Urine Glucose (UA) Negative (Negative) Diagnostic Findings Abdomen/Pelvis CTA 03/09/21 08:22 CT ANGIOGRAPHY OF THE ABDOMEN AND PELVIS CLINICAL HISTORY: diffuse abd pain, recent portal and SMV thrombosis COMPARISON STUDY: CT of the abdomen and pelvis March 01, 2021. TECHNIQUE: Axial images of the abdomen and pelvis were obtained during arterial phase following intravenous injection of 120 cc Optiray 320 IV. Sagittal and coronal reconstructions were viewed as well as maximal intensity projections on an independent 3-D workstation. Automated exposure control was utilized for the study. A dose lowering technique was utilized adhering to the principles of ALARA. FINDINGS: Please note that the chest CT will be reported separately. No pneumatosis, free air or portal venous gas is present. No hepatic lesions are present. There is slight heterogeneity of the liver. Note is again made of extensive portal and superior mesenteric venous thrombus which was shown on CT of March 01, 2021. The amount of flow within the superior mesenteric vein has slightly decreased since prior examination. Vessels are essentially thrombosed. Flow within the feeding veins is also diminished. The findings represent slight progression of extensive thrombus. Note is again made of reactive stranding within the mesentery. Mildly enlarged lymph nodes are also unchanged. Mesenteric venous congestion associated with multiple small bowel loops within the left mid abdomen has increased. There is trace interloop fluid. No definite bowel wall thickening is noted. There is trace ascites. The appendix is normal. The spleen is absent. The adrenal glands, kidneys and pancreas are unremarkable. There is no biliary or pancreatic ductal dilatation. IMPRESSION: 1. Extensive portal and superior mesenteric venous thrombosis with slight progression of thrombosis since CT of March 01, 2021, as detailed above. 2. Interval development of mesenteric venous congestion associated with multiple small bowel loops within the left mid abdomen with trace interloop fluid. No pneumatosis or portal venous gas. 3. Otherwise, unchanged appearance of the abdomen and pelvis, as described above. ACT 112: Negative or not required by law. Electronically signed by: Fitz Javier M.D. 03/09/2021 11:14 AM Chest CTA 03/09/21 08:22 CT ANGIOGRAM OF THE CHEST CLINICAL HISTORY: recent thrombus, tachycardic, flank pain COMPARISON STUDY: No previous studies for comparison. TECHNIQUE: Following the IV administration of 120 mL of Optiray, CT angiogram of the thorax was performed from the thoracic inlet to the lung bases utilizing the pulmonary embolus protocol. Images are reviewed in the axial, sagittal, and dru nal planes. IV contrast was administered without complication. MIP imaging was performed. A dose lowering technique was utilized adhering to the principles of ALARA. CT DOSE: 883.34 mGy.cm FINDINGS: Left axillary lymph nodes are the upper limits of normal in size. There is no pathologic mediastinal or hilar lymphadenopathy There was no evidence of thoracic aortic dilatation. There is a left aortic arch with an aberrant right subclavian artery. There were no pulmonary artery filling defects to indicate acute pulmonary embolism. No pleural effusions are visualized. There was no evidence of focal pulmonary consolidation. There is an azygos fissure. The visualized portions the upper abdomen suggest enlargement of the superior mesenteric vein. This is consistent with the patient's known superior mesenteric and portal vein thrombus. IMPRESSION: 1. No evidence of acute pulmonary embolism. 2. Left aortic arch with an aberrant right subclavian artery ACT 112: Negative or not required by law. Electronically signed by: Lemuel Winn M.D. 03/09/2021 10:41 AM Code Status & VTE Plan VTE Prophylaxis Plan VTE Prophylaxis will be ordered: No Supervising Physician Co-Signing Physician Notes Attending Addendum: Delayed entry Date of service noted above care coordinated with MACEY andrade please refer to her notes for full details, I agree with her notes patient seen and examined, records reviewed by myself as well on exam, patient seen resting in bed, comfortable not in distress abdominal pain improving no other symptoms VS noted and reviewed oriented x 3, not in distress, speaks in sentences with no effort nor accessory muscle use normal rate, regular rhythm, no murmurs clear breath sounds bilaterally non distended, soft, nontender no bipedal edema, erythema, warmth no neuro deficits WBC 12.2 Hg 11.7 Crea 0.6 ASSESSMENT AND PLAN Progression of superior mesenteric venous and portal vein thrombosis. -- IV heparin awaiting transfer to [facility] other diagnoses and plan of care as per MACEY Ricks MD
[2021-03-09] MEDS ORDERED: HEPARIN SODIUM/DEXTROSE 25,000 UNITS/500 ML BAG IV SCH (18:24)
[2021-03-09] MEDS ORDERED: Heparin IV Adult Wt-Based Standard *NO* Bolus Protocol IV SCH (18:24)
[2021-03-09] MEDS ORDERED: ACETAMINOPHEN 325 MG TAB PO PRN (18:30)
[2021-03-09 19:26] LABS: Basophils # (auto) 0.03 K/uL (0-0.2); Basophils % (auto) 0.3 %; Eosinophils # (auto) 0.31 K/uL (0-0.5); Eosinophils % (auto) 2.8 %; Hematocrit (blood only) 36.7 % (37-47); Hemoglobin 12.2 g/dL (12.0-16.0); Immature Granulocytes # (auto) 0.02 K/uL (0.00-0.02); Immature Granulocytes % (auto) 0.2 %; Lymphocytes # (auto) 4.39 K/uL (1.2-3.4); Lymphocytes % (auto) 39.6 %; Mean Corpuscular Hemoglobin 29.8 pg (25-34); Mean Corpuscular Volume 89.7 fL (80-100); Mean Platelet Volume 8.3 fL (7.4-10.4); Monocytes # (auto) 1.32 K/uL (0.11-0.59); Monocytes % (auto) 11.9 %; Neutrophils # (auto) 5.01 K/uL (1.4-6.5); Neutrophils % (auto) 45.2 %; Nucleated RBC # (auto) 0.02 K/uL (0-0); Nucleated RBC % (auto) 0.2 %; Platelet Count 912 K/uL (130-400); RDW Coefficient of Variation 14.4 % (11.5-14.5); RDW Standard Deviation 47.1 fL (36.4-46.3); Red Blood Count 4.09 M/uL (4.2-5.4); White Blood Count 11.08 K/uL (4.8-10.8)
[2021-03-09 19:36] LABS: Mean Corpuscular Hgb Conc 33.2 g/dL (32-36)
[2021-03-09 19:39] LABS: Partial Thromboplastin Time 26.4 Seconds (21.0-31.0); Prothrombin Time 10.6 Seconds (9.0-12.0)
--- NOTE | 2021-03-09 20:35 | Discharge Summary ---
Date of Service March 09, 2021 Admission HPI Per Admitting Provider 20-year-old female with PMH intermittent asthma, moyamoya disease, history of splenectomy with resultant thrombocytosis, schizoaffective disorder, PTSD, and other problems listed below who presents to the ED for evaluation abdominal pain. 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 Patient was transferred to [facility] for further management. Patient was placed on a heparin drip and subsequently transitioned to Eliquis. Patient discharged on 03/06. Reports abdominal pain was controlled with Tylenol until today. She then presented back to the ED for further evaluation. Patient reports pain is located in the mid abdomen and along both sides. She denies fevers and chills. No nausea, vomiting, diarrhea. Denies chest pain or shortness of breath. No lightheadedness, dizziness, diaphoresis, syncopal events. Denies urinary symptoms. 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 Patient is hemodynamically stable. Initial lactate 2.2, repeat 0.7. Vascular surgery at [facility] was contacted and patient was accepted in transfer however no beds available at this time. Case was discussed with Dr. Geovanni Hair, hematology, who recommends holding Eliquis and starting IV heparin drip. Admission Exam Per Admitting Provider Constitutional: WD/WN, vitals as above Eyes: PERRL, conjunctivae normal, anicteric sclerae ENMT: external ear and nose normal, oropharynx normal Respiratory: normal respiratory effort, lungs clear to auscultation Cardiovascular: Rate/Rhythm: regular rate and regular rhythm Vessels: normal peripheral pulses Extremities: no edema Gastrointestinal (Abdomen): normal bowel sounds, soft, nontender, no hepatosplenomegaly Musculoskeletal: no cyanosis or clubbing, extremities motor strength 5/5 Skin: no rashes, warm and dry Neurologic: PERRL, EOMI, accommodation nl, no face palsy, no dysarthria Psychiatric: A+Ox3, euthymic affect Principal Diagnosis 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 Discharge Exam Constitutional WD/WN, vitals as above Eyes PERRL, conjunctivae normal, anicteric sclerae ENMT external ear and nose normal, oropharynx normal Respiratory normal respiratory effort, lungs clear to auscultation Cardiovascular Rate/Rhythm: regular rate and regular rhythm Vessels: normal peripheral pulses Extremities: no edema Gastrointestinal (Abdomen) normal bowel sounds, soft, nontender, no hepatosplenomegaly Musculoskeletal no cyanosis or clubbing, extremities motor strength 5/5 Skin no rashes, warm and dry Neurologic PERRL, EOMI, accommodation nl, no face palsy, no dysarthria Psychiatric A+Ox3, euthymic affect Discharge Data Allergies Allergy/AdvReac Type Severity Reaction Status Date / Time vancomycin Allergy Mild Red/Itchy Unverified 03/09/21 09:49 skin Consultations 03/09/21 13:22 ED Decision to Admit Stat 03/09/21 15:31 Consult Vascular Surgery Routine 03/09/21 17:47 Consult General Surgery Routine Ordered Studies 03/09/21 08:22 CT angio abdomen pelvis w con Stat CT angio chest PE protocol Stat Hospital Course (1) Superior mesenteric vein thrombosis: (2) Portal vein thrombosis: 20-year-old female with PMH of moyamoya disease, splenectomy in 2002 who presented to the ED with reports of abdominal pain. Diagnosed last week with superior mesenteric venous and portal vein thrombosis. Treated at [facility] with IV heparin with transition to Eliquis. Repeat CTA ABD/pelvis today shows slight progression of thrombosis. Patient accepted in transfer to [facility] however awaiting bed. Case was discussed with Dr. Geovanni Hair with hematology who recommends holding Eliquis and starting patient on IV heparin. Attending Addendum: care coordinated with MACEY Carlton please refer to her notes for full details, I agree with her notes patient seen and examined, records reviewed by myself as well on exam, patient seen resting, comfortable no abdominal pain, bleeding no other symptoms Jorge Ricks MD Total Time Total Time Spent Total Time Spent (In Minutes): 40 Discharge Plan Discharge Items Patient Disposition: Transfer Acute Care Hospital Reason For Visit: [facility] THROMBOSIS Discharge Diagnosis: Portal and mesenteric vein thrombus History of moyamoya disease Condition on Discharge: Good Activity: Resume your previous activity Non-emergency contact: Primary Care Provider Call non-emergency contact if: you have any medication questions, your symptoms worsen, your pain is not controlled, your pain is worsening, your pain is unusual for you and your pain is concerning for you Follow-up/Referrals: Babatunde Bergman MD [Primary Care Provider] - Diet: Regular Addtl Attending Provider Instructions: Please refer to discharge summary for further details Pending Studies at Discharge: No Stand-Alone Forms: My [facility] Skilled Items Patient informed of condition?: Yes DNR: No Discharge Level of Care: Other Communicable Disease: No Discharge Prognosis: Stable Lines: Peripheral IV Urinary Catheter: No Medications and DC Order Prescriptions: Continued clopidogrel [Plavix] 75 mg Tablet 75 mg PO QAM RF: 0 aspirin [Aspirin Low Dose] 81 mg Tablet,Delayed Release (Dr/Ec) 81 mg PO QAM RF: 0 acetaminophen [Tylenol Extra Strength] 500 mg Tablet 1,000 mg PO Q6H PRN (Reason: Pain) RF: 0 gabapentin 800 mg tablet 800 mg PO TID RF: 0 haloperidol 5 mg tablet 5 mg PO DAILY RF: 0 haloperidol 5 mg tablet 10 mg PO HS RF: 0 hydroxyzine pamoate 50 mg capsule 50 mg PO TID PRN (Reason: Anxiety) RF: 0 propranolol 40 mg tablet 40 mg PO BID RF: 0 benztropine 2 mg tablet 2 mg PO BID RF: 0 mirtazapine 15 mg tablet 15 mg PO HS RF: 0 duloxetine 30 mg capsule,delayed release(DR/EC) 30 mg PO DAILY RF: 0 duloxetine 60 mg capsule,delayed release(DR/EC) 60 mg PO DAILY RF: 0 Discontinued Eliquis 5 mg tablet 5 mg PO BID RF: 0 No Action famotidine 20 mg tablet 20 mg PO BID RF: 0 Discharge Orders: Discharge Order (Routine); Ordered 03/09/21 Ordered By: Jorge Ricks Admission Data Admit Date/Time: 03/09/21 13:24 Attending Provider: Jorge Ricks Admit Provider: Jorge Ricks Primary Care Provider: Babatunde Bergman Other Providers: Rudy Keenan ; Jorge Ricks ; Raleigh Oneill Other Interventions: Discharge Summary Assessment (RN) Last Done: 03/10/21 10:38
[2021-03-09] MEDS ORDERED: haloperidoL 5 MG TAB PO SCH (21:00)
[2021-03-09] MEDS ORDERED: MIRTAZAPINE TAB 15 MG TAB PO SCH (21:00)
[2021-03-09] MEDS: PROPRANOLOL HCL 20 MG TAB PO SCH (21:09)
[2021-03-09] MEDS: BENZTROPINE MESYLATE 1 MG TAB PO SCH (21:10)
[2021-03-09] MEDS: FAMOTIDINE 20 MG TAB PO SCH (21:11)
[2021-03-09] MEDS: MoRPHine SULFATE 2 MG/ML CARP IV PRN (21:11)
[2021-03-09] MEDS: GABAPENTIN 800 MG TAB PO SCH (21:11)
[2021-03-10 02:34] LABS: Partial Thromboplastin Time 53.4 Seconds (21.0-31.0)
[2021-03-10] MEDS: FAMOTIDINE 20 MG TAB PO SCH (08:16)
[2021-03-10] MEDS: PROPRANOLOL HCL 20 MG TAB PO SCH (08:16)
[2021-03-10] MEDS: GABAPENTIN 800 MG TAB PO SCH (08:16)
[2021-03-10] MEDS: BENZTROPINE MESYLATE 1 MG TAB PO SCH (08:17)
[2021-03-10] MEDS: MoRPHine SULFATE 2 MG/ML CARP IV PRN (08:52)
[2021-03-10] MEDS ORDERED: DULoxetine HCL 30 MG CAP PO SCH (09:00)
[2021-03-10] MEDS ORDERED: haloperidoL 5 MG TAB PO SCH (09:00)
[2021-03-10] MEDS ORDERED: ASPIRIN 81 MG ECTAB PO SCH (09:00)
[2021-03-10] MEDS ORDERED: CLOPIDOGREL BISULFATE 75 MG TAB PO SCH (09:00)
[2021-03-10] MEDS ORDERED: DULoxetine HCL 60 MG CAP PO SCH (09:00)
[2021-03-10 09:40] LABS: Hematocrit (blood only) 37.1 % (37-47); Hemoglobin 12.3 g/dL (12.0-16.0); Mean Corpuscular Hemoglobin 29.9 pg (25-34); Mean Corpuscular Hgb Conc 33.2 g/dL (32-36); Mean Platelet Volume 8.3 fL (7.4-10.4); Nucleated RBC # (auto) 0.03 K/uL (0-0); Nucleated RBC % (auto) 0.2 %; Platelet Count 974 K/uL (130-400); RDW Coefficient of Variation 14.3 % (11.5-14.5); RDW Standard Deviation 47.1 fL (36.4-46.3); Red Blood Count 4.12 M/uL (4.2-5.4); White Blood Count 12.76 K/uL (4.8-10.8)
[2021-03-10 10:04] LABS: Basophils # (auto) 0.05 K/uL (0-0.2); Basophils % (auto) 0.4 %; Eosinophils # (auto) 0.45 K/uL (0-0.5); Eosinophils % (auto) 3.5 %; Immature Granulocytes # (auto) 0.03 K/uL (0.00-0.02); Immature Granulocytes % (auto) 0.2 %; Lymphocytes # (auto) 5.73 K/uL (1.2-3.4); Lymphocytes % (auto) 44.9 %; Monocytes # (auto) 1.29 K/uL (0.11-0.59); Monocytes % (auto) 10.1 %; Neutrophils # (auto) 5.21 K/uL (1.4-6.5); Neutrophils % (auto) 40.9 %
[2021-03-10 10:11] LABS: BUN Creatinine Ratio 11.9 (10-20); Calcium 8.9 mg/dl (8.5-10.1); Creatinine Clr Calc Pharmacy 144.8 ml/min; Est GFR (African American) 146.8 ml/min; Est GFR (Non-African American) 126.7 ml/min; Potassium 3.7 mmol/L (3.5-5.1)
--- NOTE | 2021-03-10 19:11 | Hospitalist Progress Note ---
Date of Service March 10, 2021 Assessment & Plan (1) Superior mesenteric vein thrombosis: (2) Portal vein thrombosis: Plan: hemodynamically stable abdominal pain resolved no signs of bleeding tolerating heparin IV Admission and Anticipated Discharge Date Admission Date: March 09, 2021 Subjective delayed entry date of service noted above seen resting in bed, comfortable not in distress states she feels fine overall no abdominal pain, chest pain, dyspnea, palpitations, dizziness no other symptoms states she is ready for transfer to [facility] Review of Systems Review of Systems: all noted and negative except for above Physical Exam Physical Exam: General- oriented x 3, not in distress, speaks in sentences with no effort or accessory muscle use Eyes- anicteric Neck- no JVD Lungs- clear breath sounds bilaterally, no rales/wheezes Heart- normal rate, regular rhythm; no murmurs Abdomen- normal bowel sounds, nondistended, soft, nontender Extremities- no pretibial edema, no calf tenderness Neuro- alert, oriented x 3; no gross focal neurologic deficits Skin- warm & dry Results & Data Results & Data ([facility]) Vital Signs (Past 12 Hours) Vital Signs Temp Pulse Pulse Resp BP BP Pulse Ox 03/10/21 10:38 36.9 C 82 16 112/68 116/59 L 98 03/10/21 08:00 36.9 C 79 82 16 112/68 98
--- NOTE | 2021-03-14 12:33 | Consultation ---
Date of Consultation March 14, 2021 History of Present Illness Attending Physician: Jorge Ricks MD History of Present Illness Pt was transferred prior to being seen by vascular surgery. DO NOT charge pt for this consult. Allergies Allergy/AdvReac Type Severity Reaction Status Date / Time vancomycin Allergy Mild Red/Itchy Unverified 03/09/21 09:49 skin Home Medications Medication Instructions Recorded Confirmed Type aspirin 81 mg tablet,delayed 81 mg PO QAM 03/01/21 03/09/21 History release (Aspirin Low Dose) clopidogrel 75 mg tablet (Plavix) 75 mg PO QAM 03/01/21 03/09/21 History acetaminophen 500 mg tablet 1,000 mg PO Q6H PRN 03/09/21 03/09/21 History (Tylenol Extra Strength) apixaban 5 mg tablet (Eliquis) 5 mg PO BID 03/09/21 03/09/21 History benztropine 2 mg tablet 2 mg PO BID 03/09/21 03/09/21 History duloxetine 30 mg capsule,delayed 30 mg PO DAILY 03/09/21 03/09/21 History release duloxetine 60 mg capsule,delayed 60 mg PO DAILY 03/09/21 03/09/21 History release famotidine 20 mg tablet 20 mg PO BID 03/09/21 03/09/21 History gabapentin 800 mg tablet 800 mg PO TID 03/09/21 03/09/21 History haloperidol 5 mg tablet 5 mg PO DAILY 03/09/21 03/09/21 History haloperidol 5 mg tablet 10 mg PO HS 03/09/21 03/09/21 History hydroxyzine pamoate 50 mg capsule 50 mg PO TID PRN 03/09/21 03/09/21 History mirtazapine 15 mg tablet 15 mg PO HS 03/09/21 03/09/21 History propranolol 40 mg tablet 40 mg PO BID 03/09/21 03/09/21 History Patient History Medical History Asplenia Intermittent asthma Brock brock disease Portal vein thrombosis PTSD (post-traumatic stress disorder) Schizoaffective disorder Superior mesenteric vein thrombosis Thrombocytosis Family History Other Family history non-contributory Social History Smoking Status: Never smoker Hx Alcohol Use: No Hx Substance Use: No Preferred Language: Swazi Communication Ability: Effective Furnace Feeder Required: No Beliefs That Will Affect Care: None Current Living Situation: Spouse Feels Safe at Home: Yes Assistive Devices: None
== END 2021-03-10 10:39 | disposition short-term general hospital (02) | DRG 441 ==
LOC: ED 08:04 → 1E 13:24
DX: I67.5 Moyamoya disease; K55.059 Acute (reversible) ischemia of intestine, part and extent unspecified; J45.909 Unspecified asthma, uncomplicated; I81 Portal vein thrombosis; Z79.82 Long term (current) use of aspirin; F43.10 Post-traumatic stress disorder, unspecified; F25.9 Schizoaffective disorder, unspecified; Z79.02 Long term (current) use of antithrombotics/antiplatelets; Z90.81 Acquired absence of spleen; Z88.1 Allergy status to other antibiotic agents

== ENCOUNTER 2021-05-10 21:22 | Inpatient (IN) ==
[2021-05-11] MEDS ORDERED: MoRPHine SULFATE 2 MG/ML CARP IV STA (00:10)
[2021-05-11 00:28] LABS: Basophils # (auto) 0.06 K/uL (0-0.2); Basophils % (auto) 0.4 %; Eosinophils # (auto) 0.15 K/uL (0-0.5); Eosinophils % (auto) 0.9 %; Hematocrit (blood only) 40.3 % (37-47); Hemoglobin 13.7 g/dL (12.0-16.0); Immature Granulocytes # (auto) 0.04 K/uL (0.00-0.02); Immature Granulocytes % (auto) 0.2 %; Lymphocytes # (auto) 4.91 K/uL (1.2-3.4); Lymphocytes % (auto) 28.9 %; Mean Corpuscular Hemoglobin 30.2 pg (25-34); Mean Platelet Volume 8.7 fL (7.4-10.4); Monocytes # (auto) 1.95 K/uL (0.11-0.59); Monocytes % (auto) 11.5 %; Neutrophils # (auto) 9.89 K/uL (1.4-6.5); Neutrophils % (auto) 58.1 %; Platelet Count 740 K/uL (130-400); RDW Coefficient of Variation 13.9 % (11.5-14.5); RDW Standard Deviation 45.6 fL (36.4-46.3); Red Blood Count 4.53 M/uL (4.2-5.4)
[2021-05-11 00:35] LABS: Appearance Urine Clear (Clear); Bilirubin Urine Negative (Negative); Blood Urine Negative (Negative); Color Urine Yellow; Glucose Urine UA Negative (Negative); Ketones Urine Negative (Negative); Leukocyte Esterase Urine Negative (Negative); Nitrite Urine Negative (Negative); Protein Urine Negative (Negative); Specific Gravity Urine 1.007 (1.000-1.030); Urobilinogen Urine Negative (Negative); pH Urine 7.5 (4.5-7.5)
[2021-05-11 00:46] LABS: Alanine Aminotransferase 96 U/L (12-78); Albumin Level 3.7 gm/dl (3.4-5.0); Aspartate Aminotransferase 60 U/L (15-37); BUN Creatinine Ratio 7.1 (10-20); Blood Urea Nitrogen 6 mg/dl (7-18); Calcium 9.3 mg/dl (8.5-10.1); Carbon Dioxide 29 mmol/L (21-32); Chloride 104 mmol/L (98-107); Est GFR (African American) 105.2 ml/min; Est GFR (Non-African American) 90.8 ml/min; Glucose 107 mg/dl (70-99); Lipase 70 U/L (73-393); Potassium 3.6 mmol/L (3.5-5.1); Sodium 138 mmol/L (136-145)
[2021-05-11 00:49] LABS: Albumin Globulin Ratio 0.9 (0.9-2); Alkaline Phosphatase 242 U/L (45-117); Bilirubin,Total 0.5 mg/dl (0.2-1); Globulin 4.2 gm/dl (2.5-4.0); Total Protein 7.9 gm/dl (6.4-8.2)
[2021-05-11] MEDS ORDERED: OPTIRAY 320 100ml IV ONE (01:39)
[2021-05-11] MEDS ORDERED: MoRPHine SULFATE 4 MG/ML 1 ML CARP\\VIAL IV STA (02:39)
--- NOTE | 2021-05-11 07:17 | Emergency Department Note ---
History of Present Illness General Chief complaint: Abdominal Pain Stated complaint: ABDOMINAL PAIN Time Seen by Provider: 05/10/21 23:54 Source: patient Mode of arrival: ambulatory Limitations: no limitations History of Present Illness Maximum Pain Intensity: 6 This patient is a 20-year-old female who presents to the emergency department for evaluation of abdominal pain. She states that she was here yesterday for the same symptoms. She was also seen here a few weeks ago and diagnosed with mesenteric adenitis. She states that at that time, the pain was only on her right side, however now her entire abdomen hurts. It hurts to lay down. Tylenol has not helped. She states that her pain now feels different than a few weeks ago when she had a CT scan of her abdomen. Patient currently is on Lovenox due to history of a superior mesenteric vein thrombosis. She denies missing any doses of this. She does also report a history of moyamoya disease. Home Medications Medication Instructions Recorded Confirmed Type acetaminophen 500 mg tablet 1,000 mg PO Q6H PRN 03/09/21 05/11/21 History (Tylenol Extra Strength) benztropine 2 mg tablet 2 mg PO BID 03/09/21 05/11/21 History duloxetine 30 mg capsule,delayed 30 mg PO DAILY 03/09/21 05/11/21 History release duloxetine 60 mg capsule,delayed 60 mg PO DAILY 03/09/21 05/11/21 History release famotidine 20 mg tablet 20 mg PO BID 03/09/21 05/11/21 History gabapentin 800 mg tablet 800 mg PO TID 03/09/21 05/11/21 History haloperidol 5 mg tablet 5 mg PO DAILY 03/09/21 05/11/21 History haloperidol 5 mg tablet 10 mg PO HS 03/09/21 05/11/21 History hydroxyzine pamoate 50 mg capsule 50 mg PO TID PRN 03/09/21 05/11/21 History mirtazapine 15 mg tablet 15 mg PO HS 03/09/21 05/11/21 History propranolol 40 mg tablet 40 mg PO BID 03/09/21 05/11/21 History enoxaparin 60 mg/0.6 mL 60 mg SUBCUT Q12H 04/30/21 05/11/21 History subcutaneous syringe (Lovenox) Allergies Allergy/AdvReac Type Severity Reaction Status Date / Time vancomycin Allergy Mild Red/Itchy Verified 05/09/21 20:25 skin Past Med/Surg History Medical History Asplenia Intermittent asthma Brock brock disease Portal vein thrombosis PTSD (post-traumatic stress disorder) Schizoaffective disorder Superior mesenteric vein thrombosis Thrombocytosis Family History Other Family history non-contributory Social History Smoking Status: Never smoker Hx Alcohol Use: No Hx Substance Use: No Preferred Language: Armenian Communication Ability: Effective Locomotive Engineer Required: No Beliefs That Will Affect Care: None Current Living Situation: Spouse Feels Safe at Home: Yes Assistive Devices: None Review of Systems A total of 10 systems reviewed and were otherwise negative Physical Exam Vital Signs Vital Signs - 24 hr 05/10/21 21:25 05/11/21 00:29 05/11/21 00:30 Temperature 36.6 C Temperature Source Temporal Artery Scan Pulse Rate 101 H 78 Pulse Rate [Right] 81 Pulse Rate from SpO2 Sensor 78 Pulse Rhythm [Right] Regular Pulse Strength [Right] Normal Respiratory Rate 20 16 16 Respiratory Effort / Characteristics Non-Labored Spontaneous Respiratory Depth Normal Blood Pressure 119/73 125/65 Blood Pressure [Right Arm] 114/78 Blood Pressure Mean 88 85 Blood Pressure Mean [Right Arm] 90 Blood Pressure Position Sitting Blood Pressure Position [Right Arm] Lying Pulse Oximetry 96 98 94 Oxygen Delivery Method Room Air Room Air Sepsis Recent Fever Within 48 Hours No Sepsis New/Unexplained Change in Mental Status N/A Sepsis Action Taken by Nursing No Action Required 05/11/21 01:00 05/11/21 01:50 05/11/21 02:00 Temperature Temperature Source Pulse Rate 81 76 86 Pulse Rate [Right] Pulse Rate from SpO2 Sensor 81 76 88 Pulse Rhythm [Right] Pulse Strength [Right] Respiratory Rate 16 20 19 Respiratory Effort / Characteristics Respiratory Depth Blood Pressure 105/77 114/64 Blood Pressure [Right Arm] Blood Pressure Mean 86 80 Blood Pressure Mean [Right Arm] Blood Pressure Position Blood Pressure Position [Right Arm] Pulse Oximetry 95 99 97 Oxygen Delivery Method Sepsis Recent Fever Within 48 Hours Sepsis New/Unexplained Change in Mental Status Sepsis Action Taken by Nursing 05/11/21 02:50 05/11/21 03:00 05/11/21 03:30 Temperature Temperature Source Pulse Rate 86 91 H 93 H Pulse Rate [Right] Pulse Rate from SpO2 Sensor 89 91 H 95 H Pulse Rhythm [Right] Pulse Strength [Right] Respiratory Rate 17 16 18 Respiratory Effort / Characteristics Respiratory Depth Blood Pressure 109/51 L 130/61 102/59 L Blood Pressure [Right Arm] Blood Pressure Mean 70 84 73 Blood Pressure Mean [Right Arm] Blood Pressure Position Blood Pressure Position [Right Arm] Pulse Oximetry 98 94 91 Oxygen Delivery Method Sepsis Recent Fever Within 48 Hours Sepsis New/Unexplained Change in Mental Status Sepsis Action Taken by Nursing 05/11/21 04:00 05/11/21 04:30 05/11/21 05:00 Temperature Temperature Source Pulse Rate 85 89 89 Pulse Rate [Right] Pulse Rate from SpO2 Sensor 85 89 88 Pulse Rhythm [Right] Pulse Strength [Right] Respiratory Rate 17 19 16 Respiratory Effort / Characteristics Respiratory Depth Blood Pressure 115/54 L 105/68 124/66 Blood Pressure [Right Arm] Blood Pressure Mean 74 80 85 Blood Pressure Mean [Right Arm] Blood Pressure Position Blood Pressure Position [Right Arm] Pulse Oximetry 90 91 92 Oxygen Delivery Method Sepsis Recent Fever Within 48 Hours Sepsis New/Unexplained Change in Mental Status Sepsis Action Taken by Nursing 05/11/21 05:30 05/11/21 06:00 Temperature Temperature Source Pulse Rate 88 88 Pulse Rate [Right] Pulse Rate from SpO2 Sensor 87 88 Pulse Rhythm [Right] Pulse Strength [Right] Respiratory Rate 18 20 Respiratory Effort / Characteristics Respiratory Depth Blood Pressure 116/74 110/65 Blood Pressure [Right Arm] Blood Pressure Mean 88 80 Blood Pressure Mean [Right Arm] Blood Pressure Position Blood Pressure Position [Right Arm] Pulse Oximetry 92 97 Oxygen Delivery Method Sepsis Recent Fever Within 48 Hours Sepsis New/Unexplained Change in Mental Status Sepsis Action Taken by Nursing VITALS: Vitals are noted on the nurse's note and reviewed by myself. GENERAL: This is a 20-year-old female, in no acute distress, well-developed well-nourished. SKIN: The skin was without rashes. EARS: External auditory canals clear, tympanic membranes pearly monroe without erythema or effusion bilaterally. EYES: Pupils equal round and reactive to light and accommodation. MOUTH: Mucous membranes moist. Tonsils are not enlarged. Pharynx without erythema or exudate. NECK: Supple without nuchal rigidity. No lymphadenopathy. HEART: Regular rate and rhythm without murmurs gallops or rubs. LUNGS: Clear to auscultation bilaterally without wheezes, rales or rhonchi. ABDOMEN: Positive bowel sounds x 4. Soft, generalized mild tenderness to palpation. No guarding or rebound tenderness. NEURO: Patient was alert and oriented to person place and time. Course Consultations Consultation #1: [facility] hospitalist Administered Medications Discontinued Medications Ioversol (Optiray 320 100ml) 89 ml IV ONCE ONE Stop: 05/11/21 01:40 Last Admin: 05/11/21 01:40 Dose: 89 ml Documented by: [id number] Morphine Sulfate (Morphine Sulfate 2 Mg/Ml Carp) 2 mg IV NOW STA Stop: 05/11/21 00:11 Last Admin: 05/11/21 00:28 Dose: 2 mg Documented by: [id number] Morphine Sulfate (Morphine Sulfate 4 Mg/Ml 1 Ml Carp\Vial) 4 mg IV NOW STA Stop: 05/11/21 02:40 Last Admin: 05/11/21 02:47 Dose: 4 mg Documented by: [id number] Medical Decision Making Differential Diagnosis Appendicitis, ovarian cyst, ovarian torsion, ectopic , TOA, PID, infections, diverticulitis, UTI, obstruction, mesenteric ischemia, aortic pathology, inflammatory bowel disease, renal colic, PUD, pancreatitis, biliary pathology, hernia, volvulus, constipation, as well as other pathologies. Home Medications Current Medication List: was personally reviewed by me Laboratory Data Attestation: I reviewed the patient's lab results. Result diagrams: 05/11/21 00:18 05/11/21 00:18 Lab Results 05/11/21 05/11/21 05/11/21 Range/Units 00:18 00:18 00:18 WBC 17.00 H (4.8-10.8) K/uL RBC 4.53 (4.2-5.4) M/uL Hgb 13.7 (12.0-16.0) g/dL Hct 40.3 (37-47) % MCV 89.0 (80-100) fL MCH 30.2 (25-34) pg MCHC 34.0 (32-36) g/dL RDW Std Deviation 45.6 (36.4-46.3) fL RDW Coeff of Toni 13.9 (11.5-14.5) % Plt Count 740 H (130-400) K/uL MPV 8.7 (7.4-10.4) fL Immature Gran % (Auto) 0.2 % Neut % (Auto) 58.1 % Lymph % (Auto) 28.9 % [place] % (Auto) 11.5 % Eos % (Auto) 0.9 % Baso % (Auto) 0.4 % Neut # (Auto) 9.89 H (1.4-6.5) K/uL Lymph # (Auto) 4.91 H (1.2-3.4) K/uL [place] # (Auto) 1.95 H (0.11-0.59) K/uL Eos # (Auto) 0.15 (0-0.5) K/uL Baso # (Auto) 0.06 (0-0.2) K/uL Immature Gran # (Auto) 0.04 H (0.00-0.02) K/uL Sodium 138 (136-145) mmol/L Potassium 3.6 (3.5-5.1) mmol/L Chloride 104 (98-107) mmol/L Carbon Dioxide 29 (21-32) mmol/L Anion Gap 5.0 (3-11) BUN 6 L (7-18) mg/dl Creatinine 0.90 (0.6-1.2) mg/dl Est Cr Clr Drug Dosing Not Reportable Est GFR ( Amer) 105.2 ml/min Est GFR (Non-Af Amer) 90.8 ml/min BUN/Creatinine Ratio 7.1 L (10-20) Glucose 107 H (70-99) mg/dl Calcium 9.3 (8.5-10.1) mg/dl Total Bilirubin 0.5 (0.2-1) mg/dl AST 60 H (15-37) U/L ALT 96 H (12-78) U/L Alkaline Phosphatase 242 H (45-117) U/L Total Protein 7.9 (6.4-8.2) gm/dl Albumin 3.7 (3.4-5.0) gm/dl Globulin 4.2 H (2.5-4.0) gm/dl Albumin/Globulin Ratio 0.9 (0.9-2) Lipase 70 L (73-393) U/L Urine Color Yellow Urine Appearance Clear (Clear) Urine pH 7.5 (4.5-7.5) Ur Specific Burgess 1.007 (1.000-1.030) Urine Protein Negative (Negative) Urine Glucose (UA) Negative (Negative) Urine Ketones Negative (Negative) Urine Blood Negative (Negative) Urine Nitrite Negative (Negative) Urine Bilirubin Negative (Negative) Urine Urobilinogen Negative (Negative) Ur Leukocyte Esterase Negative (Negative) POC Ur Test (NEG) COVID-19 Eval Order SARS-CoV-2 (PCR) (Negative) 05/11/21 05/11/21 05/11/21 Range/Units 00:18 02:52 02:52 WBC (4.8-10.8) K/uL RBC (4.2-5.4) M/uL Hgb (12.0-16.0) g/dL Hct (37-47) % MCV (80-100) fL MCH (25-34) pg MCHC (32-36) g/dL RDW Std Deviation (36.4-46.3) fL RDW Coeff of Toni (11.5-14.5) % Plt Count (130-400) K/uL MPV (7.4-10.4) fL Immature Gran % (Auto) % Neut % (Auto) % Lymph % (Auto) % [place] % (Auto) % Eos % (Auto) % Baso % (Auto) % Neut # (Auto) (1.4-6.5) K/uL Lymph # (Auto) (1.2-3.4) K/uL [place] # (Auto) (0.11-0.59) K/uL Eos # (Auto) (0-0.5) K/uL Baso # (Auto) (0-0.2) K/uL Immature Gran # (Auto) (0.00-0.02) K/uL Sodium (136-145) mmol/L Potassium (3.5-5.1) mmol/L Chloride (98-107) mmol/L Carbon Dioxide (21-32) mmol/L Anion Gap (3-11) BUN (7-18) mg/dl Creatinine (0.6-1.2) mg/dl Est Cr Clr Drug Dosing Est GFR ( Amer) ml/min Est GFR (Non-Af Amer) ml/min BUN/Creatinine Ratio (10-20) Glucose (70-99) mg/dl Calcium (8.5-10.1) mg/dl Total Bilirubin (0.2-1) mg/dl AST (15-37) U/L ALT (12-78) U/L Alkaline Phosphatase (45-117) U/L Total Protein (6.4-8.2) gm/dl Albumin (3.4-5.0) gm/dl Globulin (2.5-4.0) gm/dl Albumin/Globulin Ratio (0.9-2) Lipase (73-393) U/L Urine Color Urine Appearance (Clear) Urine pH (4.5-7.5) Ur Specific Burg[place] (1.000-1.030) Urine Protein (Negative) Urine Glucose (UA) (Negative) Urine Ketones (Negative) Urine Blood (Negative) Urine Nitrite (Negative) Urine Bilirubin (Negative) Urine Urobilinogen (Negative) Ur Leukocyte Esterase (Negative) POC Ur Test NEG (NEG) COVID-19 Eval Order Covid19 at [facility] SARS-CoV-2 (PCR) NEGATIVE (Negative) Imaging Data Attestation: I personally reviewed and interpreted this imaging study as follows: Radiologist's Impression: CT ABDOMEN & PELVIS With Contrast: The solid organs are within normal limits. There is inflammatory stranding of the mesentery with prominent lymph nodes concerning for panniculitis. Normal appendix. No obstruction. No fracture. Radiologist: Giselle Reddy MD MDM Narrative Continuous monitor technician: Order was placed for continuous monitor technician. Patient was placed on the monitor technician. Patient was noted to be in normal sinus rhythm at an initial rate of 80 bpm. The patient is a 20-year-old female who presents today complaining of generalized abdominal pain. Patient has been seen here twice recently. She did have a CT scan done about 10 days ago which showed findings suggestive of mesenteric adenitis. A repeat CT was performed today as patient reports her symptoms have changed. This shows inflammation of the mesentery, likely panniculitis. Patient has not been coping well with her pain at home. She did require 2 doses of IV pain medication. Patient does not feel that she can go home. [facility] the patient for further care. Impression & Plan Generalized abdominal pain, Mesenteric adenitis Discharge Plan Visit Data Chief Complaint: Abdominal Pain Stated Complaint: ABDOMINAL PAIN ED Provider: Tim Holliday ED Midlevel Provider: Susan Phillips Discharge Problem: Generalized abdominal pain, Mesenteric adenitis Forms Stand Alone Forms: [facility] Prescriptions Prescriptions: No Action acetaminophen [Tylenol Extra Strength] 500 mg Tablet 1,000 mg PO Q6H PRN (Reason: Pain) RF: 0 gabapentin 800 mg tablet 800 mg PO TID RF: 0 haloperidol 5 mg tablet 5 mg PO DAILY RF: 0 haloperidol 5 mg tablet 10 mg PO HS RF: 0 hydroxyzine pamoate 50 mg capsule 50 mg PO TID PRN (Reason: Anxiety) RF: 0 propranolol 40 mg tablet 40 mg PO BID RF: 0 famotidine 20 mg tablet 20 mg PO BID RF: 0 benztropine 2 mg tablet 2 mg PO BID RF: 0 mirtazapine 15 mg tablet 15 mg PO HS RF: 0 duloxetine 30 mg capsule,delayed release(DR/EC) 30 mg PO DAILY RF: 0 duloxetine 60 mg capsule,delayed release(DR/EC) 60 mg PO DAILY RF: 0 enoxaparin [Lovenox] 60 mg/0.6 mL Syringe 60 mg SUBCUT Q12H RF: 0 Referrals Referrals: Babatunde Bergman MD [Primary Care Provider] -
--- NOTE | 2021-05-11 07:42 | History and Physical Report ---
DATE OF ADMISSION: 05/11/21 CHIEF COMPLAINT: Abdominal pain. 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 The patient was recently diagnosed with splenic and portal vein thrombosis, currently on Lovenox. The patient had a splenectomy at the age of 1 or 2 for hereditary spherocytosis. In 10/2019 she started to have recurrent headaches and episodes of syncope which led her to do MRI scan of the brain, which was abnormal and investigations revealed presence of occlusive disease of the right carotid and was documented as moyamoya disease and led to carotid bypass surgery by neurosurgery at [facility] around 12/2019. At that time she was found to have moderate thrombocytosis. In February of this year she was at [facility] with abdominal pain and found to have portal and splenic as well as superior mesenteric vein thrombosis and transferred to [facility]. She was discharged on Eliquis and was readmitted to [facility] to general surgery service and discharged with Lovenox. She also got admitted one more time to [facility] and also discharged on Lovenox. Currently comes again with abdominal pain. CT scan preliminary report unremarkable. Currently, resting comfortably, hemodynamically stable. Denies any chest pain, no shortness of breath, no cough, no nausea, no headache, no blurred vision, no earache, no runny nose, no sore throat. Appetite is okay, no dysphagia, no nausea, no diarrhea or constipation, no blood in stool or black stools, no hematuria. Ambulating okay. ALLERGIES: VANCOMYCIN. PAST MEDICAL HISTORY: As mentioned above. PAST SURGICAL HISTORY: Bilateral carotid artery catheter placement, fusion of skull arteries, nasal surgery, splenectomy, sinus surgery. MEDICATIONS: Currently the patient is on Tylenol 1000 mg p.o. q. 6 hours p.r.n., benztropine 2 mg p.o. b.i.d., duloxetine 90 mg p.o. daily, Lovenox 60 mg subcutaneous b.i.d., famotidine 20 mg p.o. b.i.d., gabapentin 800 mg p.o. t.i.d., haloperidol 5 mg p.o. daily, enalapril 10 mg p.o. at bedtime, hydroxyzine 50 mg p.o. t.i.d. p.r.n., mirtazapine 15 mg p.o. at bedtime, propranolol 40 mg p.o. b.i.d. FAMILY HISTORY: No significant family history. SOCIAL HISTORY: , no smoking. Alcohol, occasional. No drug use. REVIEW OF SYSTEMS: As per HPI. Rest of the review of systems is negative. PHYSICAL EXAMINATION: GENERAL: The patient is moderate build, not in acute distress. VITAL SIGNS: Temperature 36.6, pulse 89, respiratory rate 16, blood pressure 124/66, oxygen 92% on room air. HEENT: Pupils equal, round and reactive to light. Oral mucosa moist. NECK: No JVD, no neck masses. CARDIOVASCULAR: S1 and S2 heard. Regular rate and rhythm. No murmur, no gallop. RESPIRATORY SYSTEM: Normal AP diameter. No accessory muscle use. No wheezing, no crackles. ABDOMEN: Soft, bowel sounds are present. Mild abdominal discomfort, no guarding, no rigidity, no distention. CENTRAL NERVOUS SYSTEM: Cranial nerves II-XII grossly intact, nonfocal. EXTREMITIES: No edema, no erythema. LABORATORY DATA: WBC 17, hemoglobin 13.7, hematocrit 40.3, platelets 740. Sodium 138, potassium 3.6, chloride 104, bicarbonate 29, BUN 6, creatinine 0.9, serum glucose 107, calcium 9.3, total bilirubin 0.5, AST 60, ALT 96, alkaline phosphatase 242. Lipase 17. Urinalysis negative. SARS-CoV-2 PCR negative. IMAGING DATA: CT of abdomen and pelvis with contrast:Superior mesenteric venous thrombosis. Surrounding inflammatory changes including fat stranding and lymphadenopathy may be reactive or represent infectious/inflammatory component. ASSESSMENT AND PLAN: This 20-year-old female who was admitted with splenic and portal vein thrombosis, presents with ongoing abdominal pain. 1. Abdominal pain. The patient has almost 3 months of diagnosis of splenic and portal vein thrombosis on Lovenox, with multiple times admitted with abdominal pain. Pain control with tramadol p.r.n. We will also consider GI evaluation in the hospital. Keep her on full liquid diet and gentle fluids. 2. 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 Continue her home medications. 3. History of hereditary spherocytosis. 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 5. Deep venous thrombosis prophylaxis: Lovenox. DISPOSITION: Observation in medical floor. Expect to discharge home and follow with family doctor. Job ID: [id number] [facility]
--- NOTE | 2021-05-11 07:58 | CT Scan Report ---
CT abd pelvis IV con only CLINICAL INDICATION: MN ^C6 CTR ^diffuse abdominal pain. TECHNIQUE: Helical axial images of the abdomen and pelvis were obtained and displayed at 5 and 1 mm i ntervals. Automated dose lowering techniques and/or adjustment according to patient size were utilize d for this exam. This exam was performed with intravenous contrast. COMPARISON: Comparison is made to CT abdomen and pelvis 04/30/2021 FINDINGS: Lower chest: No acute abnormality Liver: Unremarkable. No focal lesions are seen. Gallbladder and biliary tree: No calcified gallstones. Normal caliber wall. No intra- or extrahepatic biliary ductal dilation. Pancreas: Unremarkable, no focal lesions. Spleen: Patient is status post splenectomy. Adrenals: Unremarkable. Kidneys and ureters: Subcentimeter hypodensities are too small to characterize. Bladder: Unremarkable. Bowel: The appendix is unremarkable. There is diffuse fat stranding in the mesentery without a defini te focus of bowel thickening or obstruction. Lymph nodes Retroperitoneal: Subcentimeter lymph nodes are noted. Mesenteric: Multiple enlarged mesenteric lymph nodes are seen measuring up to 11 mm in diameter. Pelvic: Unremarkable. Reproductive organs: A left ovarian hypodensity is seen compatible with follicle. Peritoneum: A small amount of free fluid is seen in the abdomen. Vessels: Distended and hypodense superior mesenteric vein with surrounding fat stranding compatible w ith thrombosis. Abdominal wall: Soft tissue densities in the subcutaneous fat may represent injection granulomata. Bones: Unremarkable. IMPRESSION: Superior mesenteric venous thrombosis. Surrounding inflammatory changes including fat stranding and l ymphadenopathy may be reactive or represent infectious/inflammatory component. ACT 112: Negative or not required by law. Electronically signed by: Rakesh Dimas M.D. 05/11/2021 7:57 AM
[2021-05-11] MEDS ORDERED: ACETAMINOPHEN HOME PACK 500 MG TABLET PO PRN (09:02)
[2021-05-11] MEDS ORDERED: ONDANSETRON INJ 2 MG/ML 2 ML VIAL IV PRN (09:02)
[2021-05-11] MEDS ORDERED: hydrOXYzine HCl 25 MG TAB PO PRN (09:02)
[2021-05-11] MEDS ORDERED: SODIUM CHLORIDE 0.9% 1000ML 1,000 ML IV SCH (09:02)
[2021-05-11] MEDS ORDERED: POLYETHYLENE (MIRALAX) 17 GM PACK PO PRN (09:02)
[2021-05-11] MEDS ORDERED: PIPERACILL/TAZOBAC CONSULT ACTIVE PRN (09:39)
[2021-05-11] MEDS: traMADol HCL 50 MG TABLET PO PRN ×2 (09:42→20:22)
[2021-05-11] MEDS ORDERED: ENOXAPARIN INJ 60 MG/0.6 ML SYR SQ SCH (10:00)
[2021-05-11] MEDS ORDERED: PIPERACILLIN/TAZOBACTAM 3.375 GM in DEXTROSE 5% 100 ML IV ONE (10:00)
--- NOTE | 2021-05-11 10:29 | Gastrointestinal Consultation ---
Date of Consultation May 11, 2021 Assessment & Plan (1) Diffuse abdominal pain: This is a 20-year-old female with multiple comorbidities including recent splenic, portal vein and superior mesenteric vein thrombosis of unclear etiology. Patient now admitted with right lower quadrant abdominal pain, and is noted to have elevated LFTs. Previous imaging reviewed. On exam abd is soft; no jaundice/icterus; she's afebrile, no tachycardia. - Regarding her thrombotic disease, will obtain Doppler ultrasound of the hepatic and portal veins to further evaluate for any additional occlusive disease - Recommend vascular surgery consult as an outpt; we will arrange - F/u with hematology as an outpt - Will arrange outpt EGD/colonoscopy given her abd pain and h/o mesenteric thrombosis - No obvious need for ABX at this point - For elevated LFTs: MRCP pending - Check liver serologies including viral, AIH labs - Check Tylenol and ETOH level - Daily LFTs, CMP, INR - Diet as tolerated - Avoid hepatotoxins (2) Elevated LFTs: Supervising Physician Co-Signing Physician Notes I performed a history and physical examination of the patient today, including specifically on physical exam - soft abdomen. I have discussed the patient's management with the advanced practitioner. Please refer to the nurse practitioner's note for the documented findings and plan of care. Chronic SMV thrombosis, unclear etiology, on Lovenox, admitted with abdominal pain, lactic acid normal. No signs of mesenteric ischemia. Has abnormal LFTs hence will obtain labs and MRCP and PV duplex US. EGD/colonoscopy as OP F/U with Vascular surgery as OP. History of Present Illness Reason for Consultation: abdominal pain, portal thrombosis Requesting Physician: Dr. Dorado Attending Physician: Charles Merrill MD History of Present Illness This is a 20 y/o female with PMhX schizoaffective disorder, depression, hereditary spherocytosis status post splenectomy age 1 or 2, moyamoya disease, with recent multiple admissions including [facility] for portal and splenic, as well as superior mesenteric vein thrombosis, currently prescribed Lovenox. She is followed by hematology. She presented to the ER yesterday with abdominal pain. CT on admission essentially similar to previous ones, noting SMV thrombosis, surrounding inflammatory changes. GI consulted for abd pain, SMV thrombosis. Of note, she's had elevated LFTs since February. Currently, resting comfortably, hemodynamically stable. She states for the past 4 days, she has had chronic stabbing right lower quadrant abdominal pain rated as an 8 out of 10. No improvement or worsening with any particular factor, including eating or defecation. Otherwise she has no complaints. She has chronic thrombocytosis, baseline ~ 500, today is 740; WBC 17 (chronic). LFTs elevated including ALP (since February 2021). Denies any chest pain, no shortness of breath, no cough, no nausea, no headache, no blurred vision, no earache, no runny nose, no sore throat. Appetite is okay, no dysphagia, no nausea, no diarrhea or constipation, no blood in stool or black stools, no hematuria, jaundice, icterus, pruritus, leg edema. No NSAIDs, EtOH or tobacco use. No herbal medicines. No other new meds. Uses Tylenol may be 1-2000 mg daily. CTAP on admission = Superior mesenteric venous thrombosis. Surrounding inflammatory changes including fat stranding and lymphadenopathy may be reactive or represent infectious/inflammatory component. CTA 02/2021: 1. Redemonstration of extensive portal/superior mesenteric vein thrombosis with associated reactive mesenteric edema. 2. Patent celiac and superior mesenteric arteries. 3. Additional chronic and incidental findings as above. Allergies Allergy/AdvReac Type Severity Reaction Status Date / Time vancomycin Allergy Mild Red/Itchy Verified 05/09/21 20:25 skin Home Medications Medication Instructions Recorded Confirmed Type acetaminophen 500 mg tablet 1,000 mg PO Q6H PRN 03/09/21 05/11/21 History (Tylenol Extra Strength) benztropine 2 mg tablet 2 mg PO BID 03/09/21 05/11/21 History duloxetine 30 mg capsule,delayed 30 mg PO DAILY 03/09/21 05/11/21 History release duloxetine 60 mg capsule,delayed 60 mg PO DAILY 03/09/21 05/11/21 History release famotidine 20 mg tablet 20 mg PO BID 03/09/21 05/11/21 History gabapentin 800 mg tablet 800 mg PO TID 03/09/21 05/11/21 History haloperidol 5 mg tablet 5 mg PO DAILY 03/09/21 05/11/21 History haloperidol 5 mg tablet 10 mg PO HS 03/09/21 05/11/21 History hydroxyzine pamoate 50 mg capsule 50 mg PO TID PRN 03/09/21 05/11/21 History mirtazapine 15 mg tablet 15 mg PO HS 03/09/21 05/11/21 History propranolol 40 mg tablet 40 mg PO BID 03/09/21 05/11/21 History enoxaparin 60 mg/0.6 mL 60 mg SUBCUT Q12H 04/30/21 05/11/21 History subcutaneous syringe (Lovenox) Patient History Medical History Asplenia Intermittent asthma Brock brock disease Portal vein thrombosis PTSD (post-traumatic stress disorder) Schizoaffective disorder Superior mesenteric vein thrombosis Thrombocytosis Family History Other Family history non-contributory Social History Smoking Status: Never smoker Hx Alcohol Use: No Hx Substance Use: No Preferred Language: Iranian Communication Ability: Effective Director Trading Required: No Beliefs That Will Affect Care: None Current Living Situation: Significant Other Other Information That Helps Us Care for You: No Feels Safe at Home: Yes Safety Concerns: Feels Safe At This Time Assistive Devices: None Review of Systems Review of Systems: A complete review of systems is performed and negative except as noted in HPI Physical Exam Constitutional: WD/WN, vitals as above Eyes: Sclera anicteric Neck: trachea midline, no thyromegaly Respiratory: normal respiratory effort, lungs clear to auscultation Cardiovascular: RRR, no murmur, no edema Gastrointestinal (Abdomen): Inspection/Auscultation: abdomen normal to inspection Percussion/Palpation: abdomen soft; no guarding tender to RLQ; no rebound, distention Skin: no rashes, warm and dry Psychiatric: A+Ox3, euthymic affect Results & Data ([facility]) Vital Signs (Past 12 Hours) Vital Signs Temp Pulse Pulse Resp BP BP Pulse Ox 05/11/21 08:53 36.8 C 83 16 102/68 92 05/11/21 08:00 81 14 110/65 96 05/11/21 07:30 83 16 05/11/21 07:00 92 H 17 05/11/21 06:00 88 20 110/65 97 09/16/21 05:30 88 18 116/74 92 05/11/21 05:00 89 16 124/66 92 05/11/21 04:30 89 19 105/68 91 05/11/21 04:00 85 17 115/54 L 90 05/11/21 03:30 93 H 18 102/59 L 91 05/11/21 03:00 91 H 16 130/61 94 05/11/21 02:50 86 17 109/51 L 98 05/11/21 02:00 86 19 114/64 97 05/11/21 01:50 76 20 99 05/11/21 01:00 81 16 105/77 95 05/11/21 00:30 78 16 125/65 94 05/11/21 00:29 81 16 114/78 98 Laboratory Results 05/11/21 05/11/21 05/11/21 Range/Units 02:52 02:52 00:18 WBC (4.8-10.8) K/uL RBC (4.2-5.4) M/uL Hgb (12.0-16.0) g/dL Hct (37-47) % MCV (80-100) fL MCH (25-34) pg MCHC (32-36) g/dL RDW Std Deviation (36.4-46.3) fL RDW Coeff of Toni (11.5-14.5) % Plt Count (130-400) K/uL MPV (7.4-10.4) fL Immature Gran % (Auto) % Neut % (Auto) % Lymph % (Auto) % [place] % (Auto) % Eos % (Auto) % Baso % (Auto) % Neut # (Auto) (1.4-6.5) K/uL Lymph # (Auto) (1.2-3.4) K/uL [place] # (Auto) (0.11-0.59) K/uL Eos # (Auto) (0-0.5) K/uL Baso # (Auto) (0-0.2) K/uL Immature Gran # (Auto) (0.00-0.02) K/uL Sodium (136-145) mmol/L Potassium (3.5-5.1) mmol/L Chloride (98-107) mmol/L Carbon Dioxide (21-32) mmol/L Anion Gap (3-11) BUN (7-18) mg/dl Creatinine (0.6-1.2) mg/dl Est Cr Clr Drug Dosing Est GFR ( Amer) ml/min Est GFR (Non-Af Amer) ml/min BUN/Creatinine Ratio (10-20) Glucose (70-99) mg/dl Calcium (8.5-10.1) mg/dl Total Bilirubin (0.2-1) mg/dl AST (15-37) U/L ALT (12-78) U/L Alkaline Phosphatase (45-117) U/L Total Protein (6.4-8.2) gm/dl Albumin (3.4-5.0) gm/dl Globulin (2.5-4.0) gm/dl Albumin/Globulin Ratio (0.9-2) Lipase (73-393) U/L Urine Color Urine Appearance (Clear) Urine pH (4.5-7.5) Ur Specific [place] (1.000-1.030) Urine Protein (Negative) Urine Glucose (UA) (Negative) Urine Ketones (Negative) Urine Blood (Negative) Urine Nitrite (Negative) Urine Bilirubin (Negative) Urine Urobilinogen (Negative) Ur Leukocyte Esterase (Negative) POC Ur Test NEG (NEG) COVID-19 Eval Order Covid19 at [facility] SARS-CoV-2 (PCR) NEGATIVE (Negative) 05/11/21 05/11/21 05/11/21 Range/Units 00:18 00:18 00:18 WBC 17.00 H (4.8-10.8) K/uL RBC 4.53 (4.2-5.4) M/uL Hgb 13.7 (12.0-16.0) g/dL Hct 40.3 (37-47) % MCV 89.0 (80-100) fL MCH 30.2 (25-34) pg MCHC 34.0 (32-36) g/dL RDW Std Deviation 45.6 (36.4-46.3) fL RDW Coeff of Toni 13.9 (11.5-14.5) % Plt Count 740 H (130-400) K/uL MPV 8.7 (7.4-10.4) fL Immature Gran % (Auto) 0.2 % Neut % (Auto) 58.1 % Lymph % (Auto) 28.9 % [place] % (Auto) 11.5 % Eos % (Auto) 0.9 % Baso % (Auto) 0.4 % Neut # (Auto) 9.89 H (1.4-6.5) K/uL Lymph # (Auto) 4.91 H (1.2-3.4) K/uL [place] # (Auto) 1.95 H (0.11-0.59) K/uL Eos # (Auto) 0.15 (0-0.5) K/uL Baso # (Auto) 0.06 (0-0.2) K/uL Immature Gran # (Auto) 0.04 H (0.00-0.02) K/uL Sodium 138 (136-145) mmol/L Potassium 3.6 (3.5-5.1) mmol/L Chloride 104 (98-107) mmol/L Carbon Dioxide 29 (21-32) mmol/L Anion Gap 5.0 (3-11) BUN 6 L (7-18) mg/dl Creatinine 0.90 (0.6-1.2) mg/dl Est Cr Clr Drug Dosing Not Reportable Est GFR ( Amer) 105.2 ml/min Est GFR (Non-Af Amer) 90.8 ml/min BUN/Creatinine Ratio 7.1 L (10-20) Glucose 107 H (70-99) mg/dl Calcium 9.3 (8.5-10.1) mg/dl Total Bilirubin 0.5 (0.2-1) mg/dl AST 60 H (15-37) U/L ALT 96 H (12-78) U/L Alkaline Phosphatase 242 H (45-117) U/L Total Protein 7.9 (6.4-8.2) gm/dl Albumin 3.7 (3.4-5.0) gm/dl Globulin 4.2 H (2.5-4.0) gm/dl Albumin/Globulin Ratio 0.9 (0.9-2) Lipase 70 L (73-393) U/L Urine Color Yellow Urine Appearance Clear (Clear) Urine pH 7.5 (4.5-7.5) Ur Specific [place] 1.007 (1.000-1.030) Urine Protein Negative (Negative) Urine Glucose (UA) Negative (Negative) Urine Ketones Negative (Negative) Urine Blood Negative (Negative) Urine Nitrite Negative (Negative) Urine Bilirubin Negative (Negative) Urine Urobilinogen Negative (Negative) Ur Leukocyte Esterase Negative (Negative) POC Ur Test (NEG) COVID-19 Eval Order SARS-CoV-2 (PCR) (Negative) Diagnostic Findings CTAP: Superior mesenteric venous thrombosis. Surrounding inflammatory changes including fat stranding and lymphadenopathy may be reactive or represent infectious/inflammatory component.
[2021-05-11] MEDS ORDERED: Heparin IV Adult Wt-Based Standard WITH Bolus Protocol IV SCH (10:41)
[2021-05-11] MEDS ORDERED: HEPARIN SOD (PORCINE) 1000 UNIT/ML IV ONE (11:15)
[2021-05-11 11:23] LABS: Basophils # (auto) 0.04 K/uL (0-0.2); Basophils % (auto) 0.3 %; Eosinophils # (auto) 0.34 K/uL (0-0.5); Eosinophils % (auto) 2.5 %; Hematocrit (blood only) 37.1 % (37-47); Hemoglobin 12.7 g/dL (12.0-16.0); Immature Granulocytes # (auto) 0.03 K/uL (0.00-0.02); Immature Granulocytes % (auto) 0.2 %; Lymphocytes # (auto) 3.93 K/uL (1.2-3.4); Lymphocytes % (auto) 28.9 %; Mean Corpuscular Hemoglobin 30.5 pg (25-34); Mean Platelet Volume 8.4 fL (7.4-10.4); Monocytes # (auto) 2.01 K/uL (0.11-0.59); Monocytes % (auto) 14.8 %; Neutrophils # (auto) 7.24 K/uL (1.4-6.5); Neutrophils % (auto) 53.3 %; Nucleated RBC # (auto) 0.02 K/uL (0-0); Nucleated RBC % (auto) 0.2 %; Platelet Count 659 K/uL (130-400); RDW Standard Deviation 45.8 fL (36.4-46.3); Red Blood Count 4.17 M/uL (4.2-5.4); White Blood Count 13.59 K/uL (4.8-10.8)
[2021-05-11 11:29] LABS: Mean Corpuscular Hgb Conc 34.2 g/dL (32-36)
[2021-05-11] MEDS: PROPRANOLOL HCL 20 MG TAB PO SCH ×2 (11:49→20:18)
[2021-05-11] MEDS: GABAPENTIN 800 MG TAB PO SCH ×3 (11:49→20:16)
[2021-05-11] MEDS: FAMOTIDINE 20 MG TAB PO SCH ×2 (11:49→20:15)
[2021-05-11] MEDS: BENZTROPINE MESYLATE 1 MG TAB PO SCH ×2 (11:49→20:14)
[2021-05-11] MEDS: haloperidoL 5 MG TAB PO SCH ×2 (11:49→20:16)
[2021-05-11] MEDS: DULoxetine HCL 30 MG CAP PO SCH (11:49)
[2021-05-11] MEDS: DULoxetine HCL 60 MG CAP PO SCH (11:49)
[2021-05-11] MEDS: HEPARIN SODIUM/DEXTROSE 25,000 UNITS/500 ML BAG IV SCH (11:52)
[2021-05-11 12:17] LABS: Partial Thromboplastin Time 26.8 Seconds (21.0-31.0)
[2021-05-11] MEDS: MoRPHine SULFATE 2 MG/ML CARP IV PRN (13:08)
--- NOTE | 2021-05-11 13:12 | Hospitalist Progress Note ---
Date of Service May 11, 2021 Assessment & Plan (1) Generalized abdominal pain: (2) Mesenteric adenitis: (3) Superior mesenteric vein thrombosis: Plan: Superior mesenteric vein thrombosis This is a 20-year-old female who was admitted with splenic and portal vein thrombosis, presents with ongoing abdominal pain. 1. Abdominal pain. The patient has almost 3 months of diagnosis of splenic and portal vein thrombosis on Lovenox, with multiple times admitted with abdominal pain. Pain control with tramadol p.r.n. Will add IV morphine [address] abdomen / pelvis - Superior mesenteric venous thrombosis. Surrounding inflammatory changes including fat stranding and lymphadenopathy may be reactive or represent infectious/inflammatory component. Discussed CT abdomen pelvis with the radiologist, reports vein itself is more distended, more inflammation, mesenteric lymph nodes enlarged, possible infection/adenitis Patient uses Lovenox 60 mg every 12 hours Reports using it at 4:45 AM and 4:[address] Hair, hematology, that her antiten a factor should be checked 4 hours after injection For now recommend IV heparin, and monitor for small bowel ischemia Given WBC 17K on admission -also ordered blood cultures and started empiric [facility] also consulted and appreciate their evaluation MRCP ordered, awaiting further recommendations full liquid diet and gentle fluids. 2. 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 Continue her home medications. 3. History of hereditary spherocytosis. 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 DVT prophylaxis: Lovenox changed to IV heparin Admission and Anticipated Discharge Date Admission Date: May 11, 2021 Subjective Patient seen in follow-up of abdominal pain, supraventricular vein thrombosis Patient was admitted this morning by my colleague Dr. Dorado Currently sitting up in bed, in no acute distress, however reports pain 8 out of 10 in her right lower quadrant Also reports it feels worse with eating, reports stabbing pain and also says that usually her pain is at left side of her abdomen Denies any blood in the stool Reports having regular bowel movement once a day, no diarrhea Denies any fevers or chills chest pain, shortness of breath Review of Systems Review of Systems: All systems reviewed & are unremarkable except as noted in Subjective Physical Exam Physical Exam: GENERAL: The patient is moderate build, not in acute distress. HEENT: NC, EOMI, PERRL, Oral mucosa moist. NECK: No JVD, no neck masses. CARDIOVASCULAR: S1 and S2 heard. Regular rate and rhythm. No murmur, no gallop. RESPIRATORY SYSTEM: Normal AP diameter. No accessory muscle use. No wheezing, no crackles. ABDOMEN: Soft, bowel sounds are present. Mild abdominal discomfort pratima. at RLQ, no guarding, no rigidity, no distention. NEURO: Awake and alert, answering questions appropriately, speech fluent, moves extremities EXTREMITIES: No edema, no erythema. Results & Data Results & Data ([facility]) Vital Signs (Past 12 Hours) Vital Signs Temp Pulse Pulse Pulse Resp BP BP 05/11/21 09:00 36.8 C 83 16 102/68 05/11/21 08:53 36.8 C 83 16 102/68 05/11/21 08:00 81 14 110/65 05/11/21 07:30 83 16 05/11/21 07:00 92 H 17 05/11/21 06:00 88 20 110/65 05/11/21 05:30 88 18 116/74 05/11/21 05:00 89 16 124/66 05/11/21 04:30 89 19 105/68 05/11/21 04:00 85 17 115/54 L 05/11/21 03:30 93 H 18 102/59 L 05/11/21 03:00 91 H 16 130/61 05/11/21 02:50 86 17 109/51 L 05/11/21 02:00 86 19 114/64 05/11/21 01:50 76 20 Pulse Ox 05/11/21 09:00 92 05/11/21 08:53 92 05/11/21 08:00 96 05/11/21 07:30 05/11/21 07:00 05/11/21 06:00 97 05/11/21 05:30 92 05/11/21 05:00 92 05/11/21 04:30 91 05/11/21 04:00 90 05/11/21 03:30 91 05/11/21 03:00 94 05/11/21 02:50 98 05/11/21 02:00 97 05/11/21 01:50 99 Laboratory Results 05/11/21 05/11/21 05/11/21 Range/Units 11:05 11:05 02:52 WBC 13.59 H (4.8-10.8) K/uL RBC 4.17 L (4.2-5.4) M/uL Hgb 12.7 (12.0-16.0) g/dL Hct 37.1 (37-47) % MCV 89.0 (80-100) fL MCH 30.5 (25-34) pg MCHC 34.2 (32-36) g/dL RDW Std Deviation 45.8 (36.4-46.3) fL RDW Coeff of Toni 14.0 (11.5-14.5) % Plt Count 659 H (130-400) K/uL MPV 8.4 (7.4-10.4) fL Immature Gran % (Auto) 0.2 % Neut % (Auto) 53.3 % Lymph % (Auto) 28.9 % [place]rick % (Auto) 14.8 % Eos % (Auto) 2.5 % Baso % (Auto) 0.3 % Neut # (Auto) 7.24 H (1.4-6.5) K/uL Lymph # (Auto) 3.93 H (1.2-3.4) K/uL Warrick # (Auto) 2.01 H (0.11-0.59) K/uL Eos # (Auto) 0.34 (0-0.5) K/uL Baso # (Auto) 0.04 (0-0.2) K/uL Immature Gran # (Auto) 0.03 H (0.00-0.02) K/uL Absolute Nucleated RBC 0.02 H (0-0) K/uL Nucleated RBC % (auto) 0.2 % PT 10.0 (9.0-12.0) Seconds INR 1.0 (0.9-1.1) APTT 26.8 (21.0-31.0) Seconds PTT Ratio 1.0 Sodium (136-145) mmol/L Potassium (3.5-5.1) mmol/L Chloride (98-107) mmol/L Carbon Dioxide (21-32) mmol/L Anion Gap (3-11) BUN (7-18) mg/dl Creatinine (0.6-1.2) mg/dl Est Cr Clr Drug Dosing Est GFR ( Amer) ml/min Est GFR (Non-Af Amer) ml/min BUN/Creatinine Ratio (10-20) Glucose (70-99) mg/dl Calcium (8.5-10.1) mg/dl Total Bilirubin (0.2-1) mg/dl AST (15-37) U/L ALT (12-78) U/L Alkaline Phosphatase (45-117) U/L Total Protein (6.4-8.2) gm/dl Albumin (3.4-5.0) gm/dl Globulin (2.5-4.0) gm/dl Albumin/Globulin Ratio (0.9-2) Lipase (73-393) U/L Urine Color Urine Appearance (Clear) Urine pH (4.5-7.5) Ur Specific [place] (1.000-1.030) Urine Protein (Negative) Urine Glucose (UA) (Negative) Urine Ketones (Negative) Urine Blood (Negative) Urine Nitrite (Negative) Urine Bilirubin (Negative) Urine Urobilinogen (Negative) Ur Leukocyte Esterase (Negative) POC Ur Test (NEG) COVID-19 Eval Order SARS-CoV-2 (PCR) NEGATIVE (Negative) 05/11/21 05/11/21 05/11/21 Range/Units 02:52 00:18 00:18 WBC (4.8-10.8) K/uL RBC (4.2-5.4) M/uL Hgb (12.0-16.0) g/dL Hct (37-47) % MCV (80-100) fL MCH (25-34) pg MCHC (32-36) g/dL RDW Std Deviation (36.4-46.3) fL RDW Coeff of Toni (11.5-14.5) % Plt Count (130-400) K/uL MPV (7.4-10.4) fL Immature Gran % (Auto) % Neut % (Auto) % Lymph % (Auto) % [place] % (Auto) % Eos % (Auto) % Baso % (Auto) % Neut # (Auto) (1.4-6.5) K/uL Lymph # (Auto) (1.2-3.4) K/uL [place] # (Auto) (0.11-0.59) K/uL Eos # (Auto) (0-0.5) K/uL Baso # (Auto) (0-0.2) K/uL Immature Gran # (Auto) (0.00-0.02) K/uL Absolute Nucleated RBC (0-0) K/uL Nucleated RBC % (auto) % PT (9.0-12.0) Seconds INR (0.9-1.1) APTT (21.0-31.0) Seconds PTT Ratio Sodium (136-145) mmol/L Potassium (3.5-5.1) mmol/L Chloride (98-107) mmol/L Carbon Dioxide (21-32) mmol/L Anion Gap (3-11) BUN (7-18) mg/dl Creatinine (0.6-1.2) mg/dl Est Cr Clr Drug Dosing Est GFR ( Amer) ml/min Est GFR (Non-Af Amer) ml/min BUN/Creatinine Ratio (10-20) Glucose (70-99) mg/dl Calcium (8.5-10.1) mg/dl Total Bilirubin (0.2-1) mg/dl AST (15-37) U/L ALT (12-78) U/L Alkaline Phosphatase (45-117) U/L Total Protein (6.4-8.2) gm/dl Albumin (3.4-5.0) gm/dl Globulin (2.5-4.0) gm/dl Albumin/Globulin Ratio (0.9-2) Lipase (73-393) U/L Urine Color Yellow Urine Appearance Clear (Clear) Urine pH 7.5 (4.5-7.5) Ur Specific [place] 1.007 (1.000-1.030) Urine Protein Negative (Negative) Urine Glucose (UA) Negative (Negative) Urine Ketones Negative (Negative) Urine Blood Negative (Negative) Urine Nitrite Negative (Negative) Urine Bilirubin Negative (Negative) Urine Urobilinogen Negative (Negative) Ur Leukocyte Esterase Negative (Negative) POC Ur Test NEG (NEG) COVID-19 Eval Order Covid19 at [facility] SARS-CoV-2 (PCR) (Negative) 05/11/21 05/11/21 Range/Units 00:18 00:18 WBC 17.00 H (4.8-10.8) K/uL RBC 4.53 (4.2-5.4) M/uL Hgb 13.7 (12.0-16.0) g/dL Hct 40.3 (37-47) % MCV 89.0 (80-100) fL MCH 30.2 (25-34) pg MCHC 34.0 (32-36) g/dL RDW Std Deviation 45.6 (36.4-46.3) fL RDW Coeff of Toni 13.9 (11.5-14.5) % Plt Count 740 H (130-400) K/uL MPV 8.7 (7.4-10.4) fL Immature Gran % (Auto) 0.2 % Neut % (Auto) 58.1 % Lymph % (Auto) 28.9 % [place] % (Auto) 11.5 % Eos % (Auto) 0.9 % Baso % (Auto) 0.4 % Neut # (Auto) 9.89 H (1.4-6.5) K/uL Lymph # (Auto) 4.91 H (1.2-3.4) K/uL [place] # (Auto) 1.95 H (0.11-0.59) K/uL Eos # (Auto) 0.15 (0-0.5) K/uL Baso # (Auto) 0.06 (0-0.2) K/uL Immature Gran # (Auto) 0.04 H (0.00-0.02) K/uL Absolute Nucleated RBC (0-0) K/uL Nucleated RBC % (auto) % PT (9.0-12.0) Seconds INR (0.9-1.1) APTT (21.0-31.0) Seconds PTT Ratio Sodium 138 (136-145) mmol/L Potassium 3.6 (3.5-5.1) mmol/L Chloride 104 (98-107) mmol/L Carbon Dioxide 29 (21-32) mmol/L Anion Gap 5.0 (3-11) BUN 6 L (7-18) mg/dl Creatinine 0.90 (0.6-1.2) mg/dl Est Cr Clr Drug Dosing Not Reportable Est GFR ( Amer) 105.2 ml/min Est GFR (Non-Af Amer) 90.8 ml/min BUN/Creatinine Ratio 7.1 L (10-20) Glucose 107 H (70-99) mg/dl Calcium 9.3 (8.5-10.1) mg/dl Total Bilirubin 0.5 (0.2-1) mg/dl AST 60 H (15-37) U/L ALT 96 H (12-78) U/L Alkaline Phosphatase 242 H (45-117) U/L Total Protein 7.9 (6.4-8.2) gm/dl Albumin 3.7 (3.4-5.0) gm/dl Globulin 4.2 H (2.5-4.0) gm/dl Albumin/Globulin Ratio 0.9 (0.9-2) Lipase 70 L (73-393) U/L Urine Color Urine Appearance (Clear) Urine pH (4.5-7.5) Ur Specific [place] (1.000-1.030) Urine Protein (Negative) Urine Glucose (UA) (Negative) Urine Ketones (Negative) Urine Blood (Negative) Urine Nitrite (Negative) Urine Bilirubin (Negative) Urine Urobilinogen (Negative) Ur Leukocyte Esterase (Negative) POC Ur Test (NEG) COVID-19 Eval Order SARS-CoV-2 (PCR) (Negative) Medications Administered Current Inpatient Medications Acetaminophen (Acetaminophen 325 Mg Tab) 650 mg PO Q4H PRN PRN Reason: pain/fever Stop: 06/10/21 09:01 Benztropine Mesylate (Benztropine Mesylate 1 Mg Tab) 2 mg PO BID RENU Stop: 06/10/21 09:59 Last Admin: 05/11/21 11:49 Dose: 2 mg Documented by: Duloxetine HCl (Duloxetine Hcl 30 Mg Cap) 30 mg PO DAILY RENU Stop: 06/10/21 09:59 Last Admin: 05/11/21 11:49 Dose: 30 mg Documented by: Duloxetine HCl (Duloxetine Hcl 60 Mg Cap) 60 mg PO DAILY RENU Stop: 06/10/21 09:59 Last Admin: 05/11/21 11:49 Dose: 60 mg Documented by: Famotidine (Famotidine 20 Mg Tab) 20 mg PO BID RENU Stop: 06/10/21 09:59 Last Admin: 05/11/21 11:49 Dose: 20 mg Documented by: Gabapentin (Gabapentin 800 Mg Tab) 800 mg PO TID RENU Stop: 06/10/21 09:59 Last Admin: 05/11/21 11:49 Dose: 800 mg Documented by: Haloperidol (Haloperidol 5 Mg Tab) 5 mg PO DAILY RENU Stop: 06/10/21 09:59 Last Admin: 05/11/21 11:49 Dose: 5 mg Documented by: Haloperidol (Haloperidol 5 Mg Tab) 10 mg PO HS [facility] Stop: 06/10/21 20:59 Hydroxyzine HCl (Hydroxyzine Hcl 25 Mg Tab) 50 mg PO TID PRN PRN Reason: Anxiety Stop: 06/10/21 09:01 Sodium Chloride (Nss 1000ml) 1,000 mls @ 100 mls/hr IV .Q10H [facility] Stop: 05/11/21 19:01 Last Admin: 05/11/21 09:44 Dose: 100 mls/hr Documented by: Heparin Sodium/Dextrose (Heparin Sodium/Dextrose) 25,000 units in 500 mls @ 24 mls/hr IV .[id number] [facility]; Protocol Stop: 06/10/21 10:59 Last Admin: 05/11/21 11:52 Dose: 1,200 units/hr, 24 mls/hr Documented by: Piperacillin Sod/Tazobactam (Sod 3.375 gm/ Dextrose) 115 mls @ 28.75 mls/hr IV Q8H [facility]; Protocol Stop: 05/13/21 14:59 Mirtazapine (Mirtazapine Tab 15 Mg Tab) 15 mg PO HS [facility] Stop: 06/10/21 20:59 Miscellaneous Information (Piperacill/Tazobac Consult Active) 1 ea N/A UD PRN PRN Reason: Consult Stop: 06/10/21 09:38 Morphine Sulfate (Morphine Sulfate 2 Mg/Ml [place]) 2 mg IV Q3H PRN PRN Reason: Pain Stop: 05/25/21 12:26 Ondansetron HCl (Ondansetron Inj 2 Mg/Ml 2 Ml Vial) 4 mg IV Q6H PRN PRN Reason: Nausea Stop: 06/10/21 09:01 Polyethylene Glycol (Polyethylene (Miralax) 17 Gm Pack) 17 gm PO DAILY PRN PRN Reason: Constipation Stop: 06/10/21 09:01 Propranolol HCl (Propranolol Hcl 20 Mg Tab) 40 mg PO BID [facility] Stop: 06/10/21 09:59 Last Admin: 05/11/21 11:49 Dose: 40 mg Documented by: Tramadol HCl (Tramadol Hcl 50 Mg Tablet) 50 mg PO Q6H PRN PRN Reason: Pain Stop: 06/10/21 09:01 Last Admin: 05/11/21 09:42 Dose: 50 mg Documented by:
[2021-05-11 14:40] LABS: Ferritin 55.2 ng/ml (8-388)
[2021-05-11 15:02] LABS: Hepatitis B Surf Ag Rflx Conf Neg (Neg)
[2021-05-11 15:31] LABS: Hepatitis C IgG 13Yrs+Old_Rflx Neg (Neg)
[2021-05-11] MEDS: PIPERACILLIN/TAZOBACTAM 3.375 GM in DEXTROSE 5% 100 ML IV SCH (15:51)
[2021-05-11 19:11] LABS: Partial Thromboplastin Ratio 2.6
[2021-05-11 19:28] LABS: Partial Thromboplastin Time 68.4 Seconds (21.0-31.0)
--- NOTE | 2021-05-11 19:35 | Ultrasound Report ---
DOPPLER ULTRASOUND OF THE HEPATIC AND PORTAL VASCULATURE CLINICAL HISTORY: Splenic and portal venous thrombosis. COMPARISON STUDY: Abdominal CT dated 05/11/2021. FINDINGS: Real-time grayscale and color Doppler sonography of the hepatic and portal vasculature is p erformed. 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 The right and le ft portal venous branches are patent. The hepatic artery is patent with velocities measuring up to 11 7 cm/s. The hepatic veins are patent and maintain normal hepatic venous waveforms. The inferior vena cava is patent. The superior mesenteric vein and the splenic vein were not visualized. IMPRESSION: 1. There is thrombosis in the main portal vein with cavernous transformation. This was better assesse d on today's CT scan. 2. The superior mesenteric vein and the splenic vein were not visualized. This was better evaluated o n today's CT scan. Electronically signed by: Angelito Hanks M.D. 05/11/2021 7:34 PM
--- NOTE | 2021-05-11 20:15 | Magnetic Resonance Report ---
MRCP CLINICAL HISTORY: Elevated hepatic transaminases. COMPARISON STUDY: Abdominal CT dated 05/11/2021. TECHNIQUE: Abdominal MRCP is performed utilizing various T2-weighted sequences in the axial and coron al planes. IV contrast was not administered for this examination. 3-D reformats are created and asses sed. The examination is degraded by motion artifact. Several sequences were repeated in an effort to improve image quality. FINDINGS: The gallbladder is normal in appearance. No gallstones are identified. There is no intra or extrahepa tic biliary ductal dilatation. The common bile duct measures up to 4 mm in diameter. No intraluminal filling defects are identified to suggest choledocholithiasis. The pancreatic duct is normal in calib er. The unenhanced liver, adrenal glands, kidneys, and pancreas are grossly normal. A normal spleen is no t identified and this is presumed surgically absent. Again seen is evidence of thrombosis of the main portal vein with cavernous transformation. There is also thrombosis of the superior mesenteric vein with associated mesenteric lymphadenopathy. The abdominal aorta is normal in caliber. There is trace abdominal ascites, as well as trace pleural effusions. The bony structures are intact as visualized. IMPRESSION: 1. Normal MRCP. 2. Trace pleural effusions and trace abdominal ascites. 3. Again seen is evidence of thrombosis of the main portal vein with cavernous transformation and thr ombosis of the superior mesenteric vein. There is infiltration of the surrounding mesentery. 4. Status post splenectomy. Dictated: 05/11/2021 7:26 PM Transcribed: 05/11/2021 8:08 PM Liv [id number] [email or web address] Electronically signed by: Angelito Hanks M.D. 05/11/2021 8:13 PM
[2021-05-11] MEDS: MIRTAZAPINE TAB 15 MG TAB PO SCH (20:17)
[2021-05-12] MEDS: PIPERACILLIN/TAZOBACTAM 3.375 GM in DEXTROSE 5% 100 ML IV SCH ×4 (00:16→22:46)
[2021-05-12 02:34] LABS: Partial Thromboplastin Ratio 2.2
[2021-05-12 02:50] LABS: Partial Thromboplastin Time 58.8 Seconds (21.0-31.0)
[2021-05-12 05:39] LABS: Hematocrit (blood only) 36.4 % (37-47); Hemoglobin 12.4 g/dL (12.0-16.0); Mean Corpuscular Hgb Conc 34.1 g/dL (32-36); Mean Corpuscular Volume 87.9 fL (80-100); Mean Platelet Volume 8.4 fL (7.4-10.4); Nucleated RBC # (auto) 0.03 K/uL (0-0); Nucleated RBC % (auto) 0.2 %; Platelet Count 641 K/uL (130-400); RDW Coefficient of Variation 14.2 % (11.5-14.5); RDW Standard Deviation 46.1 fL (36.4-46.3); Red Blood Count 4.14 M/uL (4.2-5.4); White Blood Count 15.24 K/uL (4.8-10.8)
[2021-05-12 06:00] LABS: Partial Thromboplastin Ratio 2.7
[2021-05-12 06:05] LABS: Albumin Level 2.9 gm/dl (3.4-5.0); Calcium 8.5 mg/dl (8.5-10.1); Creatinine Clr Calc Pharmacy 127.7 ml/min; Est GFR (African American) 137.8 ml/min; Est GFR (Non-African American) 118.9 ml/min; Magnesium 2.2 mg/dl (1.8-2.4); Potassium 3.8 mmol/L (3.5-5.1)
[2021-05-12 06:08] LABS: Albumin Globulin Ratio 0.8 (0.9-2); Bilirubin,Total 0.6 mg/dl (0.2-1); Globulin 3.7 gm/dl (2.5-4.0); Total Protein 6.6 gm/dl (6.4-8.2)
[2021-05-12 06:20] LABS: Partial Thromboplastin Time 68.4 Seconds (21.0-31.0)
[2021-05-12] MEDS: traMADol HCL 50 MG TABLET PO PRN ×3 (06:42→19:04)
[2021-05-12 06:52] LABS: Basophils # (auto) 0.06 K/uL (0-0.2); Basophils % (auto) 0.4 %; Eosinophils # (auto) 0.51 K/uL (0-0.5); Eosinophils % (auto) 3.3 %; Immature Granulocytes # (auto) 0.04 K/uL (0.00-0.02); Immature Granulocytes % (auto) 0.3 %; Lymphocytes # (auto) 7.12 K/uL (1.2-3.4); Lymphocytes % (auto) 46.7 %; Monocytes # (auto) 1.92 K/uL (0.11-0.59); Monocytes % (auto) 12.6 %; Neutrophils # (auto) 5.59 K/uL (1.4-6.5); Neutrophils % (auto) 36.7 %
[2021-05-12] MEDS: DULoxetine HCL 60 MG CAP PO SCH (08:00)
[2021-05-12] MEDS: DULoxetine HCL 30 MG CAP PO SCH (08:00)
[2021-05-12] MEDS: haloperidoL 5 MG TAB PO SCH ×2 (08:01→20:37)
[2021-05-12] MEDS: FAMOTIDINE 20 MG TAB PO SCH ×2 (08:01→20:36)
[2021-05-12] MEDS: GABAPENTIN 800 MG TAB PO SCH ×3 (08:01→20:36)
[2021-05-12] MEDS: BENZTROPINE MESYLATE 1 MG TAB PO SCH ×2 (08:01→20:36)
[2021-05-12] MEDS: PROPRANOLOL HCL 20 MG TAB PO SCH ×2 (08:03→20:37)
[2021-05-12] MEDS: HEPARIN SODIUM/DEXTROSE 25,000 UNITS/500 ML BAG IV SCH (08:21)
--- NOTE | 2021-05-12 10:11 | Gastroenterology Progress Note ---
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 Patient now admitted with right lower quadrant abdominal pain, and is noted to have elevated LFTs. 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 Please call with any acute changes, questions or concerns. Please see addendum below with additional recommendation from my supervising physician. (2) Elevated LFTs: Admission and Anticipated Discharge Date Admission Date: May 11, 2021 Supervising Physician Co-Signing Physician Notes I performed a history and physical examination of the patient today, including specifically on physical exam - soft abdomen. I have discussed the patient's management with the advanced practitioner. Please refer to the nurse practitioner's note for the documented findings and plan of care. 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 Recommend: Follow up with Vascular surgery. Recall GI if needed. Subjective Pt was seen and evaluated, chart reviewed. Remained stable overnight. No change in her symptoms, some persistent gwyn denies nausea/vomiting Review of Systems Review of Systems: All systems reviewed & are unremarkable except as noted in HPI & below Physical Exam Constitutional: WD/WN, vitals as above Respiratory: normal respiratory effort, lungs clear to auscultation Cardiovascular: RRR, no murmur, no edema Gastrointestinal (Abdomen): Inspection/Auscultation: abdomen normal to inspection and normal bowel sounds Percussion/Palpation: + abdomen tender (right side) and abdomen soft Skin: no rashes, warm and dry Results & Data ([facility]) Vital Signs (Past 12 Hours) Vital Signs Temp Pulse Resp BP Pulse Ox 05/12/21 08:33 37.4 C 73 16 110/76 91 05/11/21 23:00 36.9 C 73 16 87/63 L 95 Laboratory Results 05/12/21 05/12/21 05/12/21 Range/Units 05:24 05:24 05:24 WBC 15.24 H (4.8-10.8) K/uL RBC 4.14 L (4.2-5.4) M/uL Hgb 12.4 (12.0-16.0) g/dL Hct 36.4 L (37-47) % MCV 87.9 (80-100) fL MCH 30.0 (25-34) pg MCHC 34.1 (32-36) g/dL RDW Std Deviation 46.1 (36.4-46.3) fL RDW Coeff of Toni 14.2 (11.5-14.5) % Plt Count 641 H (130-400) K/uL MPV 8.4 (7.4-10.4) fL Immature Gran % (Auto) 0.3 % Neut % (Auto) 36.7 % Lymph % (Auto) 46.7 % [place] % (Auto) 12.6 % Eos % (Auto) 3.3 % Baso % (Auto) 0.4 % Neut # (Auto) 5.59 (1.4-6.5) K/uL Lymph # (Auto) 7.12 H (1.2-3.4) K/uL [place] # (Auto) 1.92 H (0.11-0.59) K/uL Eos # (Auto) 0.51 H (0-0.5) K/uL Baso # (Auto) 0.06 (0-0.2) K/uL Immature Gran # (Auto) 0.04 H (0.00-0.02) K/uL Absolute Nucleated RBC 0.03 H (0-0) K/uL Nucleated RBC % (auto) 0.2 % PT (9.0-12.0) Seconds INR (0.9-1.1) APTT (21.0-31.0) Seconds PTT Ratio Sodium 139 (136-145) mmol/L Potassium 3.8 (3.5-5.1) mmol/L Chloride 109 H (98-107) mmol/L Carbon Dioxide 25 (21-32) mmol/L Anion Gap 5.0 (3-11) BUN 4 L (7-18) mg/dl Creatinine 0.72 (0.6-1.2) mg/dl Est Cr Clr Drug Dosing 127.7 ml/min Est GFR ( Amer) 137.8 ml/min Est GFR (Non-Af Amer) 118.9 ml/min BUN/Creatinine Ratio 5.0 L (10-20) Glucose 95 (70-99) mg/dl Calcium 8.5 (8.5-10.1) mg/dl Magnesium 2.2 (1.8-2.4) mg/dl Iron (35-150) mcg/dl Ferritin (8-388) ng/ml Total Bilirubin 0.6 (0.2-1) mg/dl AST 46 H (15-37) U/L ALT 86 H (12-78) U/L Alkaline Phosphatase 204 H (45-117) U/L Total Protein 6.6 (6.4-8.2) gm/dl Total Protein (PEP) Pending Albumin 2.9 L (3.4-5.0) gm/dl Albumin (PEP) Pending Globulin 3.7 (2.5-4.0) gm/dl Albumin/Globulin Ratio 0.8 L (0.9-2) Jzfcp-2-Gbhrfvbdp Pending Sddfq-9-Bvarqghdk Pending Cxrj-9-Vihfoulx Pending Ptut-1-Pzomlddv Pending Gamma Globulins Pending Monoclonal Peak 3 Pending Ser Monoclonl Protein Pending Ser Monoclonal Prot 2 Pending PEP Interpretation Pending Hfaea-8-Tvicsnogijk Ceruloplasmin Acetaminophen (10-30) ug/ml Ethyl Alcohol mg/dL (0-3) mg/dl RISHI Screen Anti-Mitochondrial Ab Anti-Smooth Muscle Ab CMV IgM Ab EBV Capsid Ag IgM Ab Hepatitis A IgM Ab Hep Bs Antigen (Neg) Hep B Core IgM Ab Hepatitis C Antibody (Neg) HSV I IgM TORCH HSV II IgM TORCH 05/12/21 05/12/21 05/11/21 Range/Units 05:24 01:53 18:28 WBC (4.8-10.8) K/uL RBC (4.2-5.4) M/uL Hgb (12.0-16.0) g/dL Hct (37-47) % MCV (80-100) fL MCH (25-34) pg MCHC (32-36) g/dL RDW Std Deviation (36.4-46.3) fL RDW Coeff of Toni (11.5-14.5) % Plt Count (130-400) K/uL MPV (7.4-10.4) fL Immature Gran % (Auto) % Neut % (Auto) % Lymph % (Auto) % [place] % (Auto) % Eos % (Auto) % Baso % (Auto) % Neut # (Auto) (1.4-6.5) K/uL Lymph # (Auto) (1.2-3.4) K/uL [place] # (Auto) (0.11-0.59) K/uL Eos # (Auto) (0-0.5) K/uL Baso # (Auto) (0-0.2) K/uL Immature Gran # (Auto) (0.00-0.02) K/uL Absolute Nucleated RBC (0-0) K/uL Nucleated RBC % (auto) % PT (9.0-12.0) Seconds INR (0.9-1.1) APTT 68.4 H* 58.8 H* 68.4 H* (21.0-31.0) Seconds PTT Ratio 2.7 2.2 2.6 Sodium (136-145) mmol/L Potassium (3.5-5.1) mmol/L Chloride (98-107) mmol/L Carbon Dioxide (21-32) mmol/L Anion Gap (3-11) BUN (7-18) mg/dl Creatinine (0.6-1.2) mg/dl Est Cr Clr Drug Dosing ml/min Est GFR ( Amer) ml/min Est GFR (Non-Af Amer) ml/min BUN/Creatinine Ratio (10-20) Glucose (70-99) mg/dl Calcium (8.5-10.1) mg/dl Magnesium (1.8-2.4) mg/dl Iron (35-150) mcg/dl Ferritin (8-388) ng/ml Total Bilirubin (0.2-1) mg/dl AST (15-37) U/L ALT (12-78) U/L Alkaline Phosphatase (45-117) U/L Total Protein (6.4-8.2) gm/dl Total Protein (PEP) Albumin (3.4-5.0) gm/dl Albumin (PEP) Globulin (2.5-4.0) gm/dl Albumin/Globulin Ratio (0.9-2) Piskl-5-Bsrlonaaf Fdbix-9-Yxpqttlfy Jlbe-3-Ywjhcman Svab-9-Ixqrcyvm Gamma Globulins Monoclonal Peak 3 Ser Monoclonl Protein Ser Monoclonal Prot 2 PEP Interpretation Pyzco-0-Rgqrztqxgum Ceruloplasmin Acetaminophen (10-30) ug/ml Ethyl Alcohol mg/dL (0-3) mg/dl RISHI Screen Anti-Mitochondrial Ab Anti-Smooth Muscle Ab CMV IgM Ab EBV Capsid Ag IgM Ab Hepatitis A IgM Ab Hep Bs Antigen (Neg) Hep B Core IgM Ab Hepatitis C Antibody (Neg) HSV I IgM TORCH HSV II IgM TORCH 05/11/21 05/11/21 05/11/21 Range/Units 14:29 14:29 14:29 WBC (4.8-10.8) K/uL RBC (4.2-5.4) M/uL Hgb (12.0-16.0) g/dL Hct (37-47) % MCV (80-100) fL MCH (25-34) pg MCHC (32-36) g/dL RDW Std Deviation (36.4-46.3) fL RDW Coeff of Toni (11.5-14.5) % Plt Count (130-400) K/uL MPV (7.4-10.4) fL Immature Gran % (Auto) % Neut % (Auto) % Lymph % (Auto) % [place] % (Auto) % Eos % (Auto) % Baso % (Auto) % Neut # (Auto) (1.4-6.5) K/uL Lymph # (Auto) (1.2-3.4) K/uL [place] # (Auto) (0.11-0.59) K/uL Eos # (Auto) (0-0.5) K/uL Baso # (Auto) (0-0.2) K/uL Immature Gran # (Auto) (0.00-0.02) K/uL Absolute Nucleated RBC (0-0) K/uL Nucleated RBC % (auto) % PT (9.0-12.0) Seconds INR (0.9-1.1) APTT (21.0-31.0) Seconds PTT Ratio Sodium (136-145) mmol/L Potassium (3.5-5.1) mmol/L Chloride (98-107) mmol/L Carbon Dioxide (21-32) mmol/L Anion Gap (3-11) BUN (7-18) mg/dl Creatinine (0.6-1.2) mg/dl Est Cr Clr Drug Dosing ml/min Est GFR ( Amer) ml/min Est GFR (Non-Af Amer) ml/min BUN/Creatinine Ratio (10-20) Glucose (70-99) mg/dl Calcium (8.5-10.1) mg/dl Magnesium (1.8-2.4) mg/dl Iron (35-150) mcg/dl Ferritin (8-388) ng/ml Total Bilirubin (0.2-1) mg/dl AST (15-37) U/L ALT (12-78) U/L Alkaline Phosphatase (45-117) U/L Total Protein (6.4-8.2) gm/dl Total Protein (PEP) Albumin (3.4-5.0) gm/dl Albumin (PEP) Globulin (2.5-4.0) gm/dl Albumin/Globulin Ratio (0.9-2) Loqgp-7-Qbpgwjlvj Ckpbq-3-Ybalpbkpk Leua-4-Njgammer Kste-5-Wdsozypt Gamma Globulins Monoclonal Peak 3 Ser Monoclonl Protein Ser Monoclonal Prot 2 PEP Interpretation Njgzy-9-Plcnugqcuth Pending Ceruloplasmin Pending Acetaminophen < 2 L (10-30) ug/ml Ethyl Alcohol mg/dL < 3.0 (0-3) mg/dl RISHI Screen Pending Anti-Mitochondrial Ab Pending Anti-Smooth Muscle Ab Pending CMV IgM Ab Pending EBV Capsid Ag IgM Ab Pending Hepatitis A IgM Ab Pending Hep Bs Antigen (Neg) Hep B Core IgM Ab Pending Hepatitis C Antibody (Neg) HSV I IgM TORCH Pending HSV II IgM TORCH Pending 05/11/21 05/11/21 05/11/21 Range/Units 11:05 11:05 10:35 WBC 13.59 H (4.8-10.8) K/uL RBC 4.17 L (4.2-5.4) M/uL Hgb 12.7 (12.0-16.0) g/dL Hct 37.1 (37-47) % MCV 89.0 (80-100) fL MCH 30.5 (25-34) pg MCHC 34.2 (32-36) g/dL RDW Std Deviation 45.8 (36.4-46.3) fL RDW Coeff of Toni 14.0 (11.5-14.5) % Plt Count 659 H (130-400) K/uL MPV 8.4 (7.4-10.4) fL Immature Gran % (Auto) 0.2 % Neut % (Auto) 53.3 % Lymph % (Auto) 28.9 % [place] % (Auto) 14.8 % Eos % (Auto) 2.5 % Baso % (Auto) 0.3 % Neut # (Auto) 7.24 H (1.4-6.5) K/uL Lymph # (Auto) 3.93 H (1.2-3.4) K/uL [place] # (Auto) 2.01 H (0.11-0.59) K/uL Eos # (Auto) 0.34 (0-0.5) K/uL Baso # (Auto) 0.04 (0-0.2) K/uL Immature Gran # (Auto) 0.03 H (0.00-0.02) K/uL Absolute Nucleated RBC 0.02 H (0-0) K/uL Nucleated RBC % (auto) 0.2 % PT 10.0 (9.0-12.0) Seconds INR 1.0 (0.9-1.1) APTT 26.8 (21.0-31.0) Seconds PTT Ratio 1.0 Sodium (136-145) mmol/L Potassium (3.5-5.1) mmol/L Chloride (98-107) mmol/L Carbon Dioxide (21-32) mmol/L Anion Gap (3-11) BUN (7-18) mg/dl Creatinine (0.6-1.2) mg/dl Est Cr Clr Drug Dosing ml/min Est GFR ( Amer) ml/min Est GFR (Non-Af Amer) ml/min BUN/Creatinine Ratio (10-20) Glucose (70-99) mg/dl Calcium (8.5-10.1) mg/dl Magnesium (1.8-2.4) mg/dl Iron (35-150) mcg/dl Ferritin (8-388) ng/ml Total Bilirubin (0.2-1) mg/dl AST (15-37) U/L ALT (12-78) U/L Alkaline Phosphatase (45-117) U/L Total Protein (6.4-8.2) gm/dl Total Protein (PEP) Albumin (3.4-5.0) gm/dl Albumin (PEP) Globulin (2.5-4.0) gm/dl Albumin/Globulin Ratio (0.9-2) Bqahe-9-Kowlsdokj Fucfh-9-Idxeghuhk Snwu-9-Picxedbl Ryel-0-Gejlxkci Gamma Globulins Monoclonal Peak 3 Ser Monoclonl Protein Ser Monoclonal Prot 2 PEP Interpretation Ismbz-7-Wvssjhxtraz Ceruloplasmin Acetaminophen (10-30) ug/ml Ethyl Alcohol mg/dL (0-3) mg/dl RISHI Screen Anti-Mitochondrial Ab Anti-Smooth Muscle Ab CMV IgM Ab EBV Capsid Ag IgM Ab Hepatitis A IgM Ab Hep Bs Antigen Neg (Neg) Hep B Core IgM Ab Hepatitis C Antibody Neg (Neg) HSV I IgM TORCH HSV II IgM TORCH 05/11/21 Range/Units 10:35 WBC (4.8-10.8) K/uL RBC (4.2-5.4) M/uL Hgb (12.0-16.0) g/dL Hct (37-47) % MCV (80-100) fL MCH (25-34) pg MCHC (32-36) g/dL RDW Std Deviation (36.4-46.3) fL RDW Coeff of Toni (11.5-14.5) % Plt Count (130-400) K/uL MPV (7.4-10.4) fL Immature Gran % (Auto) % Neut % (Auto) % Lymph % (Auto) % [place] % (Auto) % Eos % (Auto) % Baso % (Auto) % Neut # (Auto) (1.4-6.5) K/uL Lymph # (Auto) (1.2-3.4) K/uL [place] # (Auto) (0.11-0.59) K/uL Eos # (Auto) (0-0.5) K/uL Baso # (Auto) (0-0.2) K/uL Immature Gran # (Auto) (0.00-0.02) K/uL Absolute Nucleated RBC (0-0) K/uL Nucleated RBC % (auto) % PT (9.0-12.0) Seconds INR (0.9-1.1) APTT (21.0-31.0) Seconds PTT Ratio Sodium (136-145) mmol/L Potassium (3.5-5.1) mmol/L Chloride (98-107) mmol/L Carbon Dioxide (21-32) mmol/L Anion Gap (3-11) BUN (7-18) mg/dl Creatinine (0.6-1.2) mg/dl Est Cr Clr Drug Dosing ml/min Est GFR ( Amer) ml/min Est GFR (Non-Af Amer) ml/min BUN/Creatinine Ratio (10-20) Glucose (70-99) mg/dl Calcium (8.5-10.1) mg/dl Magnesium (1.8-2.4) mg/dl Iron 29 L (35-150) mcg/dl Ferritin 55.2 (8-388) ng/ml Total Bilirubin (0.2-1) mg/dl AST (15-37) U/L ALT (12-78) U/L Alkaline Phosphatase (45-117) U/L Total Protein (6.4-8.2) gm/dl Total Protein (PEP) Albumin (3.4-5.0) gm/dl Albumin (PEP) Globulin (2.5-4.0) gm/dl Albumin/Globulin Ratio (0.9-2) Qqwoi-1-Ucyygfzpv Cbqoq-3-Iagkjbyym Xhab-9-Hezgmjah Wmyb-4-Lrryoyav Gamma Globulins Monoclonal Peak 3 Ser Monoclonl Protein Ser Monoclonal Prot 2 PEP Interpretation Nnmje-8-Jbioukxhzzr Ceruloplasmin Acetaminophen (10-30) ug/ml Ethyl Alcohol mg/dL (0-3) mg/dl RISHI Screen Anti-Mitochondrial Ab Anti-Smooth Muscle Ab CMV IgM Ab EBV Capsid Ag IgM Ab Hepatitis A IgM Ab Hep Bs Antigen (Neg) Hep B Core IgM Ab Hepatitis C Antibody (Neg) HSV I IgM TORCH HSV II IgM TORCH
--- NOTE | 2021-05-12 10:49 | Hospitalist Progress Note ---
Date of Service May 12, 2021 Assessment & Plan (1) Generalized abdominal pain: (2) Mesenteric adenitis: (3) Superior mesenteric vein thrombosis: Plan: Splenic, portal vein and superior mesenteric vein thrombosis of unclear etiology This is a 20-year-old female who was admitted with splenic and portal vein thrombosis, presents with ongoing abdominal pain. 1. Abdominal pain. The patient has almost 3 months of diagnosis of splenic and portal vein thrombosis on Lovenox, with multiple times admitted with abdominal pain. Pain control with tramadol p.r.n. Add IV morphine [address] abdomen / pelvis - Superior mesenteric venous thrombosis. Surrounding inflammatory changes including fat stranding and lymphadenopathy may be reactive or represent infectious/inflammatory component. Discussed CT abdomen pelvis with the radiologist, reports vein itself is more distended, more inflammation, mesenteric lymph nodes enlarged, possible infection/adenitis Patient uses Lovenox 60 mg every 12 hours Reports using it at 4:45 AM and 4:[address] Hair, hematology, that her anti-Xa factor should be checked 4 hours after injection For now recommend IV heparin, and monitor for small bowel ischemia Given WBC 17K on admission -also ordered blood cultures and started empiric Zosyn, will DC zosyn now GI also consulted and appreciate their evaluation MRCP obtained - IMPRESSION: 1. Normal MRCP. 2. Trace pleural effusions and trace abdominal ascites. 3. Again seen is evidence of thrombosis of the main portal vein with cavernous transformation and thrombosis of the superior mesenteric vein. There is infiltration of the surrounding mesentery. 4. Status post splenectomy. US of portal and hepatic vasculature IMPRESSION: 1. There is thrombosis in the main portal vein with cavernous transformation. This was better assessed on today's CT scan. 2. The superior mesenteric vein and the splenic vein were not visualized. This was better evaluated on today's CT scan. For now continue full liquid diet and gentle fluids. per GI - patient will need outpatient EGD/colonoscopy and evaluation with vascular surgery -Close follow-up with anticoagulation clinic, anticoagulant clinic contacted 2. 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 Continue her home medications. 3. History of hereditary spherocytosis. 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 DVT prophylaxis: Lovenox changed to IV heparin while inpt Admission and Anticipated Discharge Date Admission Date: May 11, 2021 Subjective Patient seen in follow-up of abdominal pain, splenic, portal vein and superior mesenteric vein thrombosis Currently sitting up in bed, in no acute distress, however reports pain 8/10 in her right lower quadrant Reports that her night was uneventful, she actually did not have much of abdominal pain overnight however as soon as she starts eating, she develops pain Also reports that usually her pain is at left side of her abdomen Denies any blood in the stool (did not have a BM this admission) Reports having regular bowel movement once a day, no diarrhea Denies any fevers or chills chest pain, shortness of breath Review of Systems Review of Systems: All systems reviewed & are unremarkable except as noted in Subjective Physical Exam Physical Exam: GENERAL: obese young F, not in acute distress. HEENT: NC, EOMI, PERRL, Oral mucosa moist. NECK: No JVD, no neck masses. CARDIOVASCULAR: S1 and S2 heard. Regular rate and rhythm. No murmur, no gallop. RESPIRATORY SYSTEM: Normal AP diameter. No accessory muscle use. No wheezing, no crackles. ABDOMEN: Soft, bowel sounds are present. + abdominal discomfort pratima. at RLQ, no guarding, no rigidity, no distention. NEURO: Awake and alert, answering questions appropriately, speech fluent, moves extremities EXTREMITIES: No edema, no erythema. Results & Data Results & Data ([facility]) Vital Signs (Past 12 Hours) Vital Signs Temp Pulse Resp BP Pulse Ox 05/12/21 08:33 37.4 C 73 16 110/76 91 05/11/21 23:00 36.9 C 73 16 87/63 L 95 Laboratory Results 05/12/21 05/12/21 05/12/21 Range/Units 05:24 05:24 05:24 WBC 15.24 H (4.8-10.8) K/uL RBC 4.14 L (4.2-5.4) M/uL Hgb 12.4 (12.0-16.0) g/dL Hct 36.4 L (37-47) % MCV 87.9 (80-100) fL MCH 30.0 (25-34) pg MCHC 34.1 (32-36) g/dL RDW Std Deviation 46.1 (36.4-46.3) fL RDW Coeff of Toni 14.2 (11.5-14.5) % Plt Count 641 H (130-400) K/uL MPV 8.4 (7.4-10.4) fL Immature Gran % (Auto) 0.3 % Neut % (Auto) 36.7 % Lymph % (Auto) 46.7 % [place] % (Auto) 12.6 % Eos % (Auto) 3.3 % Baso % (Auto) 0.4 % Neut # (Auto) 5.59 (1.4-6.5) K/uL Lymph # (Auto) 7.12 H (1.2-3.4) K/uL [place] # (Auto) 1.92 H (0.11-0.59) K/uL Eos # (Auto) 0.51 H (0-0.5) K/uL Baso # (Auto) 0.06 (0-0.2) K/uL Immature Gran # (Auto) 0.04 H (0.00-0.02) K/uL Absolute Nucleated RBC 0.03 H (0-0) K/uL Nucleated RBC % (auto) 0.2 % PT (9.0-12.0) Seconds INR (0.9-1.1) APTT (21.0-31.0) Seconds PTT Ratio Sodium 139 (136-145) mmol/L Potassium 3.8 (3.5-5.1) mmol/L Chloride 109 H (98-107) mmol/L Carbon Dioxide 25 (21-32) mmol/L Anion Gap 5.0 (3-11) BUN 4 L (7-18) mg/dl Creatinine 0.72 (0.6-1.2) mg/dl Est Cr Clr Drug Dosing 127.7 ml/min Est GFR ( Amer) 137.8 ml/min Est GFR (Non-Af Amer) 118.9 ml/min BUN/Creatinine Ratio 5.0 L (10-20) Glucose 95 (70-99) mg/dl Calcium 8.5 (8.5-10.1) mg/dl Magnesium 2.2 (1.8-2.4) mg/dl Iron (35-150) mcg/dl Ferritin (8-388) ng/ml Total Bilirubin 0.6 (0.2-1) mg/dl AST 46 H (15-37) U/L ALT 86 H (12-78) U/L Alkaline Phosphatase 204 H (45-117) U/L Total Protein 6.6 (6.4-8.2) gm/dl Total Protein (PEP) Pending Albumin 2.9 L (3.4-5.0) gm/dl Albumin (PEP) Pending Globulin 3.7 (2.5-4.0) gm/dl Albumin/Globulin Ratio 0.8 L (0.9-2) Yayaf-8-Potkljvfx Pending Zhqga-7-Cbnngzsbe Pending Mwds-8-Viwksrjt Pending Pyfk-0-Gphwsgnn Pending Gamma Globulins Pending Monoclonal Peak 3 Pending Ser Monoclonl Protein Pending Ser Monoclonal Prot 2 Pending PEP Interpretation Pending Dwask-6-Ninbsvchmyn Ceruloplasmin Acetaminophen (10-30) ug/ml Ethyl Alcohol mg/dL (0-3) mg/dl RISHI Screen Anti-Mitochondrial Ab Anti-Smooth Muscle Ab CMV IgM Ab EBV Capsid Ag IgM Ab Hepatitis A IgM Ab Hep Bs Antigen (Neg) Hep B Core IgM Ab Hepatitis C Antibody (Neg) HSV I IgM TORCH HSV II IgM TORCH 05/12/21 05/12/21 05/11/21 Range/Units 05:24 01:53 18:28 WBC (4.8-10.8) K/uL RBC (4.2-5.4) M/uL Hgb (12.0-16.0) g/dL Hct (37-47) % MCV (80-100) fL MCH (25-34) pg MCHC (32-36) g/dL RDW Std Deviation (36.4-46.3) fL RDW Coeff of Toni (11.5-14.5) % Plt Count (130-400) K/uL MPV (7.4-10.4) fL Immature Gran % (Auto) % Neut % (Auto) % Lymph % (Auto) % [place] % (Auto) % Eos % (Auto) % Baso % (Auto) % Neut # (Auto) (1.4-6.5) K/uL Lymph # (Auto) (1.2-3.4) K/uL [place] # (Auto) (0.11-0.59) K/uL Eos # (Auto) (0-0.5) K/uL Baso # (Auto) (0-0.2) K/uL Immature Gran # (Auto) (0.00-0.02) K/uL Absolute Nucleated RBC (0-0) K/uL Nucleated RBC % (auto) % PT (9.0-12.0) Seconds INR (0.9-1.1) APTT 68.4 H* 58.8 H* 68.4 H* (21.0-31.0) Seconds PTT Ratio 2.7 2.2 2.6 Sodium (136-145) mmol/L Potassium (3.5-5.1) mmol/L Chloride (98-107) mmol/L Carbon Dioxide (21-32) mmol/L Anion Gap (3-11) BUN (7-18) mg/dl Creatinine (0.6-1.2) mg/dl Est Cr Clr Drug Dosing ml/min Est GFR ( Amer) ml/min Est GFR (Non-Af Amer) ml/min BUN/Creatinine Ratio (10-20) Glucose (70-99) mg/dl Calcium (8.5-10.1) mg/dl Magnesium (1.8-2.4) mg/dl Iron (35-150) mcg/dl Ferritin (8-388) ng/ml Total Bilirubin (0.2-1) mg/dl AST (15-37) U/L ALT (12-78) U/L Alkaline Phosphatase (45-117) U/L Total Protein (6.4-8.2) gm/dl Total Protein (PEP) Albumin (3.4-5.0) gm/dl Albumin (PEP) Globulin (2.5-4.0) gm/dl Albumin/Globulin Ratio (0.9-2) Rlvtv-2-Oktpgqiby Jonob-2-Cbdnxigzz Nlcz-2-Vldkucem Ijlh-8-Zjzmieql Gamma Globulins Monoclonal Peak 3 Ser Monoclonl Protein Ser Monoclonal Prot 2 PEP Interpretation Lpizk-8-Wyifqrlsamc Ceruloplasmin Acetaminophen (10-30) ug/ml Ethyl Alcohol mg/dL (0-3) mg/dl RISHI Screen Anti-Mitochondrial Ab Anti-Smooth Muscle Ab CMV IgM Ab EBV Capsid Ag IgM Ab Hepatitis A IgM Ab Hep Bs Antigen (Neg) Hep B Core IgM Ab Hepatitis C Antibody (Neg) HSV I IgM TORCH HSV II IgM TORCH 05/11/21 05/11/21 05/11/21 Range/Units 14:29 14:29 14:29 WBC (4.8-10.8) K/uL RBC (4.2-5.4) M/uL Hgb (12.0-16.0) g/dL Hct (37-47) % MCV (80-100) fL MCH (25-34) pg MCHC (32-36) g/dL RDW Std Deviation (36.4-46.3) fL RDW Coeff of Toni (11.5-14.5) % Plt Count (130-400) K/uL MPV (7.4-10.4) fL Immature Gran % (Auto) % Neut % (Auto) % Lymph % (Auto) % [place] % (Auto) % Eos % (Auto) % Baso % (Auto) % Neut # (Auto) (1.4-6.5) K/uL Lymph # (Auto) (1.2-3.4) K/uL [place] # (Auto) (0.11-0.59) K/uL Eos # (Auto) (0-0.5) K/uL Baso # (Auto) (0-0.2) K/uL Immature Gran # (Auto) (0.00-0.02) K/uL Absolute Nucleated RBC (0-0) K/uL Nucleated RBC % (auto) % PT (9.0-12.0) Seconds INR (0.9-1.1) APTT (21.0-31.0) Seconds PTT Ratio Sodium (136-145) mmol/L Potassium (3.5-5.1) mmol/L Chloride (98-107) mmol/L Carbon Dioxide (21-32) mmol/L Anion Gap (3-11) BUN (7-18) mg/dl Creatinine (0.6-1.2) mg/dl Est Cr Clr Drug Dosing ml/min Est GFR ( Amer) ml/min Est GFR (Non-Af Amer) ml/min BUN/Creatinine Ratio (10-20) Glucose (70-99) mg/dl Calcium (8.5-10.1) mg/dl Magnesium (1.8-2.4) mg/dl Iron (35-150) mcg/dl Ferritin (8-388) ng/ml Total Bilirubin (0.2-1) mg/dl AST (15-37) U/L ALT (12-78) U/L Alkaline Phosphatase (45-117) U/L Total Protein (6.4-8.2) gm/dl Total Protein (PEP) Albumin (3.4-5.0) gm/dl Albumin (PEP) Globulin (2.5-4.0) gm/dl Albumin/Globulin Ratio (0.9-2) Yoipm-2-Prjbyegbv Krkbc-4-Tictjwalj Stud-5-Qomyhnne Khvn-5-Byutmbsa Gamma Globulins Monoclonal Peak 3 Ser Monoclonl Protein Ser Monoclonal Prot 2 PEP Interpretation Goanh-0-Gqmzqvvnrnj Pending Ceruloplasmin Pending Acetaminophen < 2 L (10-30) ug/ml Ethyl Alcohol mg/dL < 3.0 (0-3) mg/dl RISHI Screen Pending Anti-Mitochondrial Ab Pending Anti-Smooth Muscle Ab Pending CMV IgM Ab Pending EBV Capsid Ag IgM Ab Pending Hepatitis A IgM Ab Pending Hep Bs Antigen (Neg) Hep B Core IgM Ab Pending Hepatitis C Antibody (Neg) HSV I IgM TORCH Pending HSV II IgM TORCH Pending 05/11/21 05/11/21 05/11/21 Range/Units 11:05 11:05 10:35 WBC 13.59 H (4.8-10.8) K/uL RBC 4.17 L (4.2-5.4) M/uL Hgb 12.7 (12.0-16.0) g/dL Hct 37.1 (37-47) % MCV 89.0 (80-100) fL MCH 30.5 (25-34) pg MCHC 34.2 (32-36) g/dL RDW Std Deviation 45.8 (36.4-46.3) fL RDW Coeff of Toni 14.0 (11.5-14.5) % Plt Count 659 H (130-400) K/uL MPV 8.4 (7.4-10.4) fL Immature Gran % (Auto) 0.2 % Neut % (Auto) 53.3 % Lymph % (Auto) 28.9 % [place] % (Auto) 14.8 % Eos % (Auto) 2.5 % Baso % (Auto) 0.3 % Neut # (Auto) 7.24 H (1.4-6.5) K/uL Lymph # (Auto) 3.93 H (1.2-3.4) K/uL [place] # (Auto) 2.01 H (0.11-0.59) K/uL Eos # (Auto) 0.34 (0-0.5) K/uL Baso # (Auto) 0.04 (0-0.2) K/uL Immature Gran # (Auto) 0.03 H (0.00-0.02) K/uL Absolute Nucleated RBC 0.02 H (0-0) K/uL Nucleated RBC % (auto) 0.2 % PT 10.0 (9.0-12.0) Seconds INR 1.0 (0.9-1.1) APTT 26.8 (21.0-31.0) Seconds PTT Ratio 1.0 Sodium (136-145) mmol/L Potassium (3.5-5.1) mmol/L Chloride (98-107) mmol/L Carbon Dioxide (21-32) mmol/L Anion Gap (3-11) BUN (7-18) mg/dl Creatinine (0.6-1.2) mg/dl Est Cr Clr Drug Dosing ml/min Est GFR ( Amer) ml/min Est GFR (Non-Af Amer) ml/min BUN/Creatinine Ratio (10-20) Glucose (70-99) mg/dl Calcium (8.5-10.1) mg/dl Magnesium (1.8-2.4) mg/dl Iron (35-150) mcg/dl Ferritin (8-388) ng/ml Total Bilirubin (0.2-1) mg/dl AST (15-37) U/L ALT (12-78) U/L Alkaline Phosphatase (45-117) U/L Total Protein (6.4-8.2) gm/dl Total Protein (PEP) Albumin (3.4-5.0) gm/dl Albumin (PEP) Globulin (2.5-4.0) gm/dl Albumin/Globulin Ratio (0.9-2) Blvos-3-Mqvykccuc Rpgms-2-Lmspvzwam Unhx-3-Qfypbxty Rdgm-3-Pvnquhki Gamma Globulins Monoclonal Peak 3 Ser Monoclonl Protein Ser Monoclonal Prot 2 PEP Interpretation Ctbkt-1-Ahbrtftpezo Ceruloplasmin Acetaminophen (10-30) ug/ml Ethyl Alcohol mg/dL (0-3) mg/dl RISHI Screen Anti-Mitochondrial Ab Anti-Smooth Muscle Ab CMV IgM Ab EBV Capsid Ag IgM Ab Hepatitis A IgM Ab Hep Bs Antigen Neg (Neg) Hep B Core IgM Ab Hepatitis C Antibody Neg (Neg) HSV I IgM TORCH HSV II IgM TORCH 05/11/21 Range/Units 10:35 WBC (4.8-10.8) K/uL RBC (4.2-5.4) M/uL Hgb (12.0-16.0) g/dL Hct (37-47) % MCV (80-100) fL MCH (25-34) pg MCHC (32-36) g/dL RDW Std Deviation (36.4-46.3) fL RDW Coeff of Toni (11.5-14.5) % Plt Count (130-400) K/uL MPV (7.4-10.4) fL Immature Gran % (Auto) % Neut % (Auto) % Lymph % (Auto) % [place] % (Auto) % Eos % (Auto) % Baso % (Auto) % Neut # (Auto) (1.4-6.5) K/uL Lymph # (Auto) (1.2-3.4) K/uL [place] # (Auto) (0.11-0.59) K/uL Eos # (Auto) (0-0.5) K/uL Baso # (Auto) (0-0.2) K/uL Immature Gran # (Auto) (0.00-0.02) K/uL Absolute Nucleated RBC (0-0) K/uL Nucleated RBC % (auto) % PT (9.0-12.0) Seconds INR (0.9-1.1) APTT (21.0-31.0) Seconds PTT Ratio Sodium (136-145) mmol/L Potassium (3.5-5.1) mmol/L Chloride (98-107) mmol/L Carbon Dioxide (21-32) mmol/L Anion Gap (3-11) BUN (7-18) mg/dl Creatinine (0.6-1.2) mg/dl Est Cr Clr Drug Dosing ml/min Est GFR ( Amer) ml/min Est GFR (Non-Af Amer) ml/min BUN/Creatinine Ratio (10-20) Glucose (70-99) mg/dl Calcium (8.5-10.1) mg/dl Magnesium (1.8-2.4) mg/dl Iron 29 L (35-150) mcg/dl Ferritin 55.2 (8-388) ng/ml Total Bilirubin (0.2-1) mg/dl AST (15-37) U/L ALT (12-78) U/L Alkaline Phosphatase (45-117) U/L Total Protein (6.4-8.2) gm/dl Total Protein (PEP) Albumin (3.4-5.0) gm/dl Albumin (PEP) Globulin (2.5-4.0) gm/dl Albumin/Globulin Ratio (0.9-2) Yqyho-6-Sxlkzrnbh Xygbz-7-Hakocaiei Qbji-5-Sbnbkzod Twix-6-Fepvyajr Gamma Globulins Monoclonal Peak 3 Ser Monoclonl Protein Ser Monoclonal Prot 2 PEP Interpretation Ewkvc-3-Wrxhclunsbb Ceruloplasmin Acetaminophen (10-30) ug/ml Ethyl Alcohol mg/dL (0-3) mg/dl RISHI Screen Anti-Mitochondrial Ab Anti-Smooth Muscle Ab CMV IgM Ab EBV Capsid Ag IgM Ab Hepatitis A IgM Ab Hep Bs Antigen (Neg) Hep B Core IgM Ab Hepatitis C Antibody (Neg) HSV I IgM TORCH HSV II IgM TORCH Medications Administered Current Inpatient Medications Acetaminophen (Acetaminophen 325 Mg Tab) 650 mg PO Q4H PRN PRN Reason: pain/fever Stop: 06/10/21 09:01 Benztropine Mesylate (Benztropine Mesylate 1 Mg Tab) 2 mg PO BID RENU Stop: 06/10/21 09:59 Last Admin: 05/12/21 08:01 Dose: 2 mg Documented by: Duloxetine HCl (Duloxetine Hcl 30 Mg Cap) 30 mg PO DAILY RENU Stop: 06/10/21 09:59 Last Admin: 05/12/21 08:00 Dose: 30 mg Documented by: Duloxetine HCl (Duloxetine Hcl 60 Mg Cap) 60 mg PO DAILY RENU Stop: 06/10/21 09:59 Last Admin: 05/12/21 08:00 Dose: 60 mg Documented by: Famotidine (Famotidine 20 Mg Tab) 20 mg PO BID RENU Stop: 06/10/21 09:59 Last Admin: 05/12/21 08:01 Dose: 20 mg Documented by: Gabapentin (Gabapentin 800 Mg Tab) 800 mg PO TID [facility] Stop: 06/10/21 09:59 Last Admin: 05/12/21 08:01 Dose: 800 mg Documented by: Haloperidol (Haloperidol 5 Mg Tab) 5 mg PO DAILY [facility] Stop: 06/10/21 09:59 Last Admin: 05/12/21 08:01 Dose: 5 mg Documented by: Haloperidol (Haloperidol 5 Mg Tab) 10 mg PO [facility] Stop: 06/10/21 20:59 Last Admin: 05/11/21 20:16 Dose: 10 mg Documented by: Hydroxyzine HCl (Hydroxyzine Hcl 25 Mg Tab) 50 mg PO TID PRN PRN Reason: Anxiety Stop: 06/10/21 09:01 Heparin Sodium/Dextrose (Heparin Sodium/Dextrose) 25,000 units in 500 mls @ 23 mls/hr IV .[id number] [facility]; Protocol Stop: 06/10/21 10:59 Last Admin: 05/12/21 08:21 Dose: 1,150 units/hr, 23 mls/hr Documented by: Piperacillin Sod/Tazobactam (Sod 3.375 gm/ Dextrose) 115 mls @ 28.75 mls/hr IV Q8H [facility]; Protocol Stop: 05/13/21 14:59 Last Admin: 05/12/21 08:00 Dose: 28.8 mls/hr Documented by: Mirtazapine (Mirtazapine Tab 15 Mg Tab) 15 mg PO [facility] Stop: 06/10/21 20:59 Last Admin: 05/11/21 20:17 Dose: 15 mg Documented by: Miscellaneous Information (Piperacill/Tazobac Consult Active) 1 ea N/A UD PRN PRN Reason: Consult Stop: 06/10/21 09:38 Morphine Sulfate (Morphine Sulfate 2 Mg/Ml Carp) 2 mg IV Q3H PRN PRN Reason: Pain Stop: 05/25/21 12:26 Last Admin: 05/11/21 13:08 Dose: 2 mg Documented by: Ondansetron HCl (Ondansetron Inj 2 Mg/Ml 2 Ml Vial) 4 mg IV Q6H PRN PRN Reason: Nausea Stop: 06/10/21 09:01 Polyethylene Glycol (Polyethylene (Miralax) 17 Gm Pack) 17 gm PO DAILY PRN PRN Reason: Constipation Stop: 06/10/21 09:01 Propranolol HCl (Propranolol Hcl 20 Mg Tab) 40 mg PO BID RENU Stop: 06/10/21 09:59 Last Admin: 05/12/21 08:03 Dose: 40 mg Documented by: Tramadol HCl (Tramadol Hcl 50 Mg Tablet) 50 mg PO Q6H PRN PRN Reason: Pain Stop: 06/10/21 09:01 Last Admin: 05/12/21 06:42 Dose: 50 mg Documented by:
[2021-05-12] MEDS: ACETAMINOPHEN 325 MG TAB PO PRN (17:58)
[2021-05-12] MEDS: MIRTAZAPINE TAB 15 MG TAB PO SCH (20:37)
[2021-05-13] MEDS: traMADol HCL 50 MG TABLET PO PRN ×3 (02:36→13:56)
[2021-05-13] MEDS: ACETAMINOPHEN 325 MG TAB PO PRN ×2 (04:06→22:41)
[2021-05-13] MEDS: HEPARIN SODIUM/DEXTROSE 25,000 UNITS/500 ML BAG IV SCH ×3 (04:06→10:03)
[2021-05-13] MEDS: PIPERACILLIN/TAZOBACTAM 3.375 GM in DEXTROSE 5% 100 ML IV SCH (06:22)
[2021-05-13 06:40] LABS: Hematocrit (blood only) 36.9 % (37-47); Hemoglobin 12.6 g/dL (12.0-16.0); Mean Corpuscular Hemoglobin 29.7 pg (25-34); Mean Corpuscular Hgb Conc 34.1 g/dL (32-36); Mean Platelet Volume 8.6 fL (7.4-10.4); Nucleated RBC # (auto) 0.02 K/uL (0-0); Nucleated RBC % (auto) 0.2 %; Platelet Count 705 K/uL (130-400); RDW Standard Deviation 44.5 fL (36.4-46.3); Red Blood Count 4.24 M/uL (4.2-5.4)
[2021-05-13 07:13] LABS: Albumin Globulin Ratio 0.9 (0.9-2); Albumin Level 3.1 gm/dl (3.4-5.0); BUN Creatinine Ratio 4.2 (10-20); Bilirubin,Total 0.4 mg/dl (0.2-1); Calcium 8.8 mg/dl (8.5-10.1); Est GFR (African American) 129.1 ml/min; Est GFR (Non-African American) 111.3 ml/min; Globulin 3.6 gm/dl (2.5-4.0); Magnesium 2.3 mg/dl (1.8-2.4); Phosphorus 4.2 mg/dl (2.5-4.9); Potassium 3.8 mmol/L (3.5-5.1); Total Protein 6.7 gm/dl (6.4-8.2)
[2021-05-13 07:45] LABS: Partial Thromboplastin Ratio 3.2
[2021-05-13 08:00] LABS: Partial Thromboplastin Time 83.1 Seconds (21.0-31.0)
[2021-05-13] MEDS: haloperidoL 5 MG TAB PO SCH ×2 (09:13→21:22)
[2021-05-13] MEDS: FAMOTIDINE 20 MG TAB PO SCH ×2 (09:13→21:21)
[2021-05-13] MEDS: GABAPENTIN 800 MG TAB PO SCH ×3 (09:13→21:22)
[2021-05-13] MEDS: DULoxetine HCL 60 MG CAP PO SCH (09:13)
[2021-05-13] MEDS: DULoxetine HCL 30 MG CAP PO SCH (09:13)
[2021-05-13] MEDS: BENZTROPINE MESYLATE 1 MG TAB PO SCH ×2 (09:13→21:21)
[2021-05-13] MEDS: PROPRANOLOL HCL 20 MG TAB PO SCH ×2 (09:14→21:22)
[2021-05-13 14:36] LABS: Partial Thromboplastin Ratio 2.5
[2021-05-13 14:44] LABS: Partial Thromboplastin Time 66.5 Seconds (21.0-31.0)
[2021-05-13] MEDS: AMPICILLIN/SULBACTAM SOD 1,500 MG in 0.9 % SODIUM CHLORIDE 100 ML IV SCH ×2 (15:21→21:19)
--- NOTE | 2021-05-13 18:44 | Hospitalist Progress Note ---
Date of Service May 13, 2021 Assessment & Plan (1) Generalized abdominal pain: (2) Mesenteric adenitis: (3) Superior mesenteric vein thrombosis: Plan: Superior mesenteric vein thrombosis H/O Splenic, portal vein thrombosis On Lovenox prior to admission --CT abdomen / pelvis - Superior mesenteric venous thrombosis. Surrounding inflammatory changes including fat stranding and lymphadenopathy may be reactive or represent infectious/inflammatory component. Discussed CT abdomen pelvis with the radiologist, reports vein itself is more distended, more inflammation, mesenteric lymph nodes enlarged, possible infection/adenitis --MRCP: Normal MRCP. Trace pleural effusions and trace abdominal ascites. Again seen is evidence of thrombosis of the main portal vein with cavernous transformation and thrombosis of the superior mesenteric vein. There is infiltra tion of the surrounding mesentery. Status post splenectomy. --US of portal and hepatic vasculature: There is thrombosis in the main portal vein with cavernous transformation. This was better assessed on today's CT scan. The superior mesenteric vein and the splenic vein were not visualized. This was better evaluated on today's CT scan. -Held Lovenox Continue IV Heparin Appreciate GI/ Oncology Input Had Anti-Xa factor as outpatient Monitor for small bowel ischemia Empirically started on IV Zosyn for leukocytosis>>Unasyn Blood Cx: Negative to date -Needs follow-up with vascular surgery upon discharge--Has appointment on Saturday -We will need outpatient EGD colonoscopy -Also will need follow-up with anticoagulation clinic, anticoagulant clinic contacted Borderline personality disorder Schizoaffective disorder 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 H/O Hereditary spherocytosis. H/O Moyamoya disease S/P Carotid endarterectomy. DVT Px: IV heparin Admission and Anticipated Discharge Date Admission Date: May 11, 2021 Subjective Patient is seen and examined at bedside Abdominal pain is better today Tolerating diet No new complaints Denies chest pain, dyspnea, dizziness, nausea, vomiting Review of Systems Review of Systems: All systems reviewed & are unremarkable except as noted in Subjective Physical Exam Physical Exam: Physical Exam: Vitals signs as noted above General Appearance:Moderately built and nourished, no apparent distress Head: normocephalic, Atraumatic Eyes: normal inspection, EOMI Neck: supple, Trachea midline Respiratory/Chest: Normal breath sounds, CTA, No accessory muscle use Cardiovascular: S1, S2, No murmur Abdomen/GI:Soft, Mild Epigastric/ RLQ tender, Bowel sounds present Extremities/Musculoskeletal:normal inspection, no edema Neurologic/Psych:AAOX3, grossly no focal neurological deficits Skin: normal color, warm Results & Data Results & Data ([facility]) Vital Signs (Past 12 Hours) Vital Signs Temp Pulse Pulse Pulse Resp BP BP 05/13/21 15:05 36.5 C 70 16 93/61 L 05/13/21 12:21 36.5 C 80 80 18 120/76 05/13/21 08:18 36.5 C 76 18 118/76 05/13/21 07:14 36.5 C 73 16 112/73 Pulse Ox 05/13/21 15:05 95 05/13/21 12:21 98 05/13/21 08:18 98 05/13/21 07:14 98 Laboratory Results Short CBC 05/13/21 Range/Units 06:05 WBC 12.40 H (4.8-10.8) K/uL Hgb 12.6 (12.0-16.0) g/dL Hct 36.9 L (37-47) % Plt Count 705 H (130-400) K/uL BMP 05/13/21 06:05 Sodium 138 Potassium 3.8 Chloride 105 Carbon Dioxide 28 BUN 3 L Creatinine 0.76 Glucose 101 H Calcium 8.8 Liver Function 05/13/21 Range/Units 06:05 Total Bilirubin 0.4 (0.2-1) mg/dl AST 47 H (15-37) U/L ALT 100 H (12-78) U/L Alkaline Phosphatase 230 H (45-117) U/L Albumin 3.1 L (3.4-5.0) gm/dl
[2021-05-13] MEDS: MoRPHine SULFATE 2 MG/ML CARP IV PRN (20:10)
[2021-05-13] MEDS ORDERED: SODIUM CHLORIDE 0.9% 500 ML IV SCH (20:15)
[2021-05-13] MEDS: MIRTAZAPINE TAB 15 MG TAB PO SCH (21:22)
[2021-05-13 21:52] LABS: Partial Thromboplastin Ratio 2.2
[2021-05-13 21:55] LABS: Partial Thromboplastin Time 58.9 Seconds (21.0-31.0)
[2021-05-14] MEDS: AMPICILLIN/SULBACTAM SOD 1,500 MG in 0.9 % SODIUM CHLORIDE 100 ML IV SCH ×4 (02:15→19:54)
[2021-05-14] MEDS: HEPARIN SODIUM/DEXTROSE 25,000 UNITS/500 ML BAG IV SCH (02:16)
[2021-05-14] MEDS: ACETAMINOPHEN 325 MG TAB PO PRN (02:45)
[2021-05-14 08:07] LABS: Partial Thromboplastin Ratio 2.5
[2021-05-14 08:08] LABS: Partial Thromboplastin Time 66.1 Seconds (21.0-31.0)
[2021-05-14] MEDS: PROPRANOLOL HCL 20 MG TAB PO SCH ×2 (08:54→20:27)
[2021-05-14] MEDS: GABAPENTIN 800 MG TAB PO SCH ×3 (08:55→20:26)
[2021-05-14] MEDS: DULoxetine HCL 30 MG CAP PO SCH (08:55)
[2021-05-14] MEDS: DULoxetine HCL 60 MG CAP PO SCH (08:55)
[2021-05-14] MEDS: FAMOTIDINE 20 MG TAB PO SCH ×2 (08:55→20:26)
[2021-05-14] MEDS: haloperidoL 5 MG TAB PO SCH ×2 (08:55→20:26)
[2021-05-14] MEDS: BENZTROPINE MESYLATE 1 MG TAB PO SCH ×2 (08:55→20:26)
[2021-05-14] MEDS: traMADol HCL 50 MG TABLET PO PRN ×2 (12:20→20:26)
[2021-05-14] MEDS: MoRPHine SULFATE 2 MG/ML CARP IV PRN ×2 (14:30→21:41)
--- NOTE | 2021-05-14 16:53 | Hospitalist Progress Note ---
Date of Service May 14, 2021 Assessment & Plan (1) Generalized abdominal pain: (2) Mesenteric adenitis: (3) Superior mesenteric vein thrombosis: Plan: Superior mesenteric vein thrombosis H/O Splenic, portal vein thrombosis On Lovenox prior to admission --CT abdomen / pelvis - Superior mesenteric venous thrombosis. Surrounding inflammatory changes including fat stranding and lymphadenopathy may be reactive or represent infectious/inflammatory component. Discussed CT abdomen pelvis with the radiologist, reports vein itself is more distended, more inflammation, mesenteric lymph nodes enlarged, possible infection/adenitis --MRCP: Normal MRCP. Trace pleural effusions and trace abdominal ascites. Again seen is evidence of thrombosis of the main portal vein with cavernous transformation and thrombosis of the superior mesenteric vein. There is infiltra tion of the surrounding mesentery. Status post splenectomy. --US of portal and hepatic vasculature: There is thrombosis in the main portal vein with cavernous transformation. This was better assessed on today's CT scan. The superior mesenteric vein and the splenic vein were not visualized. This was better evaluated on today's CT scan. -Held Lovenox Continue IV Heparin for now Appreciate GI/ Oncology Input Had Anti-Xa factor as outpatient Monitor for small bowel ischemia Empirically started on IV Zosyn for leukocytosis>>Unasyn Blood Cx: Negative to date -Needs follow-up with vascular surgery upon discharge--Has appointment on Saturday -We will need outpatient EGD colonoscopy -Also will need follow-up with anticoagulation clinic, anticoagulant clinic contacted Leukocytosis trending down -Adjust Lovenox dose upon discharge based on Anti-Xa levels Borderline personality disorder Schizoaffective disorder 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 H/O Hereditary spherocytosis. H/O Moyamoya disease S/P Carotid endarterectomy. DVT Px: IV heparin Admission and Anticipated Discharge Date Admission Date: May 11, 2021 Subjective Patient is seen and examined at bedside Abdominal pain continues to improve Tolerating diet Denies chest pain, dyspnea, dizziness, nausea, vomiting, bleeding issues Review of Systems Review of Systems: All systems reviewed & are unremarkable except as noted in Subjective Physical Exam Physical Exam: Physical Exam: Vitals signs as noted above General Appearance:Moderately built and nourished, no apparent distress Head: normocephalic, Atraumatic Eyes: normal inspection, EOMI Neck: supple, Trachea midline Respiratory/Chest: Normal breath sounds, CTA, No accessory muscle use Cardiovascular: S1, S2, No murmur Abdomen/GI:Soft, Mild Epigastric/ RLQ tender, Bowel sounds present Extremities/Musculoskeletal:normal inspection, no edema Neurologic/Psych:AAOX3, grossly no focal neurological deficits Skin: normal color, warm Results & Data Results & Data ([facility]) Vital Signs (Past 12 Hours) Vital Signs Temp Pulse Pulse Resp BP BP Pulse Ox 05/14/21 15:02 36.9 C 77 16 106/71 93 05/14/21 11:49 36.4 C L 64 16 94/62 L 98 05/14/21 07:13 36.1 C L 76 16 118/72 98
[2021-05-14] MEDS: MIRTAZAPINE TAB 15 MG TAB PO SCH (20:27)
--- NOTE | 2021-05-14 20:29 | Electrocardiogram Report ---
Test Reason : Blood Pressure : / mmHG Vent. Rate : 080 BPM Atrial Rate : 080 BPM P-R Int : 138 ms QRS Dur : 094 ms QT Int : 380 ms P-R-T Axes : 041 081 058 degrees QTc Int : 438 ms Normal sinus rhythm Incomplete right bundle branch block Borderline ECG When compared with ECG of 01-MAR-2021 15:42, Nonspecific T wave abnormality no longer evident in Inferior leads Confirmed by Santana Gonzales ([id number]) on 05/14/2021 8:28:44 PM Referred By: REFERRED SELF Confirmed By:Santana Gonzales
[2021-05-15] MEDS: HEPARIN SODIUM/DEXTROSE 25,000 UNITS/500 ML BAG IV SCH ×2 (02:10→06:10)
[2021-05-15] MEDS: AMPICILLIN/SULBACTAM SOD 1,500 MG in 0.9 % SODIUM CHLORIDE 100 ML IV SCH ×3 (02:11→14:13)
[2021-05-15] MEDS: traMADol HCL 50 MG TABLET PO PRN ×2 (02:36→09:01)
[2021-05-15 05:21] LABS: Hematocrit (blood only) 38.6 % (37-47); Hemoglobin 13.2 g/dL (12.0-16.0); Mean Corpuscular Hemoglobin 29.9 pg (25-34); Mean Corpuscular Hgb Conc 34.2 g/dL (32-36); Mean Corpuscular Volume 87.5 fL (80-100); Mean Platelet Volume 8.4 fL (7.4-10.4); Nucleated RBC # (auto) 0.02 K/uL (0-0); Nucleated RBC % (auto) 0.1 %; Platelet Count 754 K/uL (130-400); RDW Coefficient of Variation 13.9 % (11.5-14.5); RDW Standard Deviation 44.2 fL (36.4-46.3); Red Blood Count 4.41 M/uL (4.2-5.4); White Blood Count 14.88 K/uL (4.8-10.8)
[2021-05-15 05:49] LABS: Partial Thromboplastin Ratio 2.7
[2021-05-15 06:00] LABS: Albumin Level 3.2 gm/dl (3.4-5.0); BUN Creatinine Ratio 3.8 (10-20); Creatinine Clr Calc Pharmacy 110.8 ml/min; Est GFR (Non-African American) 100.1 ml/min; Potassium 3.6 mmol/L (3.5-5.1)
[2021-05-15 06:01] LABS: Partial Thromboplastin Time 72.1 Seconds (21.0-31.0)
[2021-05-15 06:03] LABS: Albumin Globulin Ratio 0.8 (0.9-2); Bilirubin,Total 0.3 mg/dl (0.2-1); Globulin 3.8 gm/dl (2.5-4.0)
--- NOTE | 2021-05-15 08:36 | Hospitalist Progress Note ---
Date of Service May 15, 2021 Assessment & Plan (1) Generalized abdominal pain: (2) Mesenteric adenitis: (3) Superior mesenteric vein thrombosis: Plan: Superior mesenteric vein thrombosis H/O Splenic, portal vein thrombosis On Lovenox prior to admission --CT abdomen / pelvis - Superior mesenteric venous thrombosis. Surrounding inflammatory changes including fat stranding and lymphadenopathy may be reactive or represent infectious/inflammatory component. Discussed CT abdomen pelvis with the radiologist, reports vein itself is more distended, more inflammation, mesenteric lymph nodes enlarged, possible infection/adenitis --MRCP: Normal MRCP. Trace pleural effusions and trace abdominal ascites. Again seen is evidence of thrombosis of the main portal vein with cavernous transformation and thrombosis of the superior mesenteric vein. There is infiltra tion of the surrounding mesentery. Status post splenectomy. --US of portal and hepatic vasculature: There is thrombosis in the main portal vein with cavernous transformation. This was better assessed on today's CT scan. The superior mesenteric vein and the splenic vein were not visualized. This was better evaluated on today's CT scan. -Held Lovenox Continue IV Heparin while inpt Appreciate GI/ Oncology Input Had Anti-Xa factor as outpatient Monitor for small bowel ischemia Empirically started on IV Zosyn for leukocytosis>>Unasyn - ok to stop Abx per GI Blood Cx: Negative to date -Needs follow-up with vascular surgery upon discharge -- Has appointment on Saturday05/16/2021 -We will need outpatient EGD colonoscopy -Also will need follow-up with anticoagulation clinic, anticoagulant clinic contacted - for now recommend to continue current dose of Lovenox 60 twice daily, plan to follow-up closely Leukocytosis trending down (some leukocytosis present at baseline) Borderline personality disorder Schizoaffective disorder 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 H/O Hereditary spherocytosis. H/O Moyamoya disease S/P Carotid endarterectomy. DVT Px: IV heparin - switch to lovenox as outpt Admission and Anticipated Discharge Date Admission Date: May 11, 2021 Subjective Patient seen in follow-up of abdominal pain, splenic, portal vein and superior mesenteric vein thrombosis Currently sitting up in bed, in no acute distress Abdominal pain continues to improve Tolerating diet Denies any blood in the stool, reports normal stools while in the hospital Denies any fevers or chills chest pain, shortness of breath, nausea, vomiting Patient to be seen by vascular surgery as outpatient tomorrow, plan for discharge today, patient aware of the plan Review of Systems Review of Systems: All systems reviewed & are unremarkable except as noted in Subjective Physical Exam Physical Exam: GENERAL: obese young F, not in acute distress. HEENT: NC, EOMI, PERRL, Oral mucosa moist. NECK: No JVD, no neck masses. CARDIOVASCULAR: S1 and S2 heard. Regular rate and rhythm. No murmur, no gallop. RESPIRATORY SYSTEM: Normal AP diameter. No accessory muscle use. No wheezing, no crackles. ABDOMEN: Soft, bowel sounds are present. + mild abdominal discomfort pratima. at RLQ (much improved), no guarding, no rigidity, no distention. NEURO: Awake and alert, answering questions appropriately, speech fluent, moves extremities EXTREMITIES: No edema, no erythema. Results & Data Results & Data ([facility]) Vital Signs (Past 12 Hours) Vital Signs Temp Pulse Resp BP BP Pulse Ox 05/15/21 07:51 37.0 C 78 16 100/68 97 05/14/21 22:47 36.8 C 75 16 101/64 93 Laboratory Results 05/15/21 05/15/21 05/15/21 Range/Units 05:02 05:02 05:02 WBC 14.88 H (4.8-10.8) K/uL RBC 4.41 (4.2-5.4) M/uL Hgb 13.2 (12.0-16.0) g/dL Hct 38.6 (37-47) % MCV 87.5 (80-100) fL MCH 29.9 (25-34) pg MCHC 34.2 (32-36) g/dL RDW Std Deviation 44.2 (36.4-46.3) fL RDW Coeff of Toni 13.9 (11.5-14.5) % Plt Count 754 H (130-400) K/uL MPV 8.4 (7.4-10.4) fL Absolute Nucleated RBC 0.02 H (0-0) K/uL Nucleated RBC % (auto) 0.1 % APTT 72.1 H* (21.0-31.0) Seconds PTT Ratio 2.7 Sodium 138 (136-145) mmol/L Potassium 3.6 (3.5-5.1) mmol/L Chloride 103 (98-107) mmol/L Carbon Dioxide 30 (21-32) mmol/L Anion Gap 5.0 (3-11) BUN 3 L (7-18) mg/dl Creatinine 0.83 (0.6-1.2) mg/dl Est Cr Clr Drug Dosing 110.8 ml/min Est GFR ( Amer) 116.0 ml/min Est GFR (Non-Af Amer) 100.1 ml/min BUN/Creatinine Ratio 3.8 L (10-20) Glucose 108 H (70-99) mg/dl Calcium 9.0 (8.5-10.1) mg/dl Total Bilirubin 0.3 (0.2-1) mg/dl AST 21 (15-37) U/L ALT 74 (12-78) U/L Alkaline Phosphatase 226 H (45-117) U/L Total Protein 7.0 (6.4-8.2) gm/dl Albumin 3.2 L (3.4-5.0) gm/dl Globulin 3.8 (2.5-4.0) gm/dl Albumin/Globulin Ratio 0.8 L (0.9-2) Medications Administered Current Inpatient Medications Acetaminophen (Acetaminophen 325 Mg Tab) 650 mg PO Q4H PRN PRN Reason: pain/fever Stop: 06/10/21 09:01 Last Admin: 05/14/21 02:45 Dose: 650 mg Documented by: Benztropine Mesylate (Benztropine Mesylate 1 Mg Tab) 2 mg PO BID [facility] Stop: 06/10/21 09:59 Last Admin: 05/14/21 20:26 Dose: 2 mg Documented by: Duloxetine HCl (Duloxetine Hcl 30 Mg Cap) 30 mg PO DAILY RENU Stop: 06/10/21 09:59 Last Admin: 05/14/21 08:55 Dose: 30 mg Documented by: Duloxetine HCl (Duloxetine Hcl 60 Mg Cap) 60 mg PO DAILY RENU Stop: 06/10/21 09:59 Last Admin: 05/14/21 08:55 Dose: 60 mg Documented by: Famotidine (Famotidine 20 Mg Tab) 20 mg PO BID [facility] Stop: 06/10/21 09:59 Last Admin: 05/14/21 20:26 Dose: 20 mg Documented by: Gabapentin (Gabapentin 800 Mg Tab) 800 mg PO TID [facility] Stop: 06/10/21 09:59 Last Admin: 05/14/21 20:26 Dose: 800 mg Documented by: Haloperidol (Haloperidol 5 Mg Tab) 5 mg PO DAILY [facility] Stop: 06/10/21 09:59 Last Admin: 05/14/21 08:55 Dose: 5 mg Documented by: Haloperidol (Haloperidol 5 Mg Tab) 10 mg PO HS [facility] Stop: 06/10/21 20:59 Last Admin: 05/14/21 20:26 Dose: 10 mg Documented by: Hydroxyzine HCl (Hydroxyzine Hcl 25 Mg Tab) 50 mg PO TID PRN PRN Reason: Anxiety Stop: 06/10/21 09:01 Heparin Sodium/Dextrose (Heparin Sodium/Dextrose) 25,000 units in 500 mls @ 20 mls/hr IV .Q24H [facility]; Protocol Stop: 06/10/21 10:59 Last Titration: 05/15/21 07:08 Dose: 1,000 units/hr, 20 mls/hr Documented by: Ampicillin Sodium/Sulbactam Sodium 1,500 mg/ Sodium Chloride 104 mls @ 208 mls/hr IV Q6H [facility]; Protocol Stop: 05/16/21 23:59 Last Admin: 05/15/21 08:06 Dose: 208 mls/hr Documented by: Mirtazapine (Mirtazapine Tab 15 Mg Tab) 15 mg PO HS [facility] Stop: 06/10/21 20:59 Last Admin: 05/14/21 20:27 Dose: 15 mg Documented by: Morphine Sulfate (Morphine Sulfate 2 Mg/Ml Carp) 2 mg IV Q3H PRN PRN Reason: Pain Stop: 05/25/21 12:26 Last Admin: 05/14/21 21:41 Dose: 2 mg Documented by: Ondansetron HCl (Ondansetron Inj 2 Mg/Ml 2 Ml Vial) 4 mg IV Q6H PRN PRN Reason: Nausea Stop: 06/10/21 09:01 Polyethylene Glycol (Polyethylene (Miralax) 17 Gm Pack) 17 gm PO DAILY PRN PRN Reason: Constipation Stop: 06/10/21 09:01 Last Admin: 05/13/21 08:10 Dose: 17 gm Documented by: Propranolol HCl (Propranolol Hcl 20 Mg Tab) 40 mg PO BID [facility] Stop: 06/10/21 09:59 Last Admin: 05/14/21 20:27 Dose: 40 mg Documented by: Tramadol HCl (Tramadol Hcl 50 Mg Tablet) 50 mg PO Q6H PRN PRN Reason: Pain Stop: 06/10/21 09:01 Last Admin: 05/15/21 02:36 Dose: 50 mg Documented by:
[2021-05-15] MEDS: FAMOTIDINE 20 MG TAB PO SCH (08:53)
[2021-05-15] MEDS: BENZTROPINE MESYLATE 1 MG TAB PO SCH (08:53)
[2021-05-15] MEDS: DULoxetine HCL 30 MG CAP PO SCH (08:53)
[2021-05-15] MEDS: GABAPENTIN 800 MG TAB PO SCH ×2 (08:53→13:38)
[2021-05-15] MEDS: DULoxetine HCL 60 MG CAP PO SCH (08:53)
[2021-05-15] MEDS: PROPRANOLOL HCL 20 MG TAB PO SCH (08:54)
[2021-05-15] MEDS: haloperidoL 5 MG TAB PO SCH (08:54)
[2021-05-15] MEDS ORDERED: POTASSIUM CHLORIDE CRTAB 20 MEQ TABCR PO STA (10:40)
[2021-05-15] MEDS: MoRPHine SULFATE 2 MG/ML CARP IV PRN (10:46)
--- NOTE | 2021-05-15 11:09 | Discharge Summary ---
Date of Service May 15, 2021 Admission HPI Per Admitting Provider This is a 20-year-old female with past medical history significant for asthma, history of thrombus in the mesenteric vein, moyamoya disease, portal vein thrombosis, vitamin D deficiency, posttraumatic stress disorder, opioid dependence in remission, migraines, thrombocytosis after splenectomy, hereditary spherocytosis, depression, schizoaffective disorder, depression type major depression with psychotic features, borderline personality disorder, presents with abdominal pain. The patient was recently diagnosed with splenic and portal vein thrombosis, currently on Lovenox. The patient had a splenectomy at the age of 1 or 2 for hereditary spherocytosis. In 10/2019 she started to have recurrent headaches and episodes of syncope which led her to do MRI scan of the brain, which was abnormal and investigations revealed presence of occlusive disease of the right carotid and was documented as moyamoya disease and led to carotid bypass surgery by neurosurgery at [facility] around 12/2019. At that time she was found to have moderate thrombocytosis. In February of this year she was at [facility] with abdominal pain and found to have portal and splenic as well as superior mesenteric vein thrombosis and transferred to [facility]. She was discharged on Eliquis and was readmitted to [facility] to general surgery service and discharged with Lovenox. She also got admitted one more time to [facility] and also discharged on Lovenox. Currently comes again with abdominal pain. CT scan preliminary report unremarkable. Currently, resting comfortably, hemodynamically stable. Denies any chest pain, no shortness of breath, no cough, no nausea, no headache, no blurred vision, no earache, no runny nose, no sore throat. Appetite is okay, no dysphagia, no nausea, no diarrhea or constipation, no blood in stool or black stools, no hematuria. Ambulating okay. Admission Exam Per Admitting Provider GENERAL: The patient is moderate build, not in acute distress. VITAL SIGNS: Temperature 36.6, pulse 89, respiratory rate 16, blood pressure 124/66, oxygen 92% on room air. HEENT: Pupils equal, round and reactive to light. Oral mucosa moist. NECK: No JVD, no neck masses. CARDIOVASCULAR: S1 and S2 heard. Regular rate and rhythm. No murmur, no gallop. RESPIRATORY SYSTEM: Normal AP diameter. No accessory muscle use. No wheezing, no crackles. ABDOMEN: Soft, bowel sounds are present. Mild abdominal discomfort, no guarding, no rigidity, no distention. CENTRAL NERVOUS SYSTEM: Cranial nerves II-XII grossly intact, nonfocal. EXTREMITIES: No edema, no erythema. Principal Diagnosis Abdominal pain in the setting of splenic, portal vein and superior mesenteric vein thrombosis Discharge Exam GENERAL: obese young F, not in acute distress. HEENT: NC, EOMI, PERRL, Oral mucosa moist. NECK: No JVD, no neck masses. CARDIOVASCULAR: S1 and S2 heard. Regular rate and rhythm. No murmur, no gallop. RESPIRATORY SYSTEM: Normal AP diameter. No accessory muscle use. No wheezing, no crackles. ABDOMEN: Soft, bowel sounds are present. + mild abdominal discomfort pratima. at RLQ (much improved), no guarding, no rigidity, no distention. NEURO: Awake and alert, answering questions appropriately, speech fluent, moves extremities EXTREMITIES: No edema, no erythema. Discharge Data Allergies Allergy/AdvReac Type Severity Reaction Status Date / Time vancomycin Allergy Mild Red/Itchy Verified 05/09/21 20:25 skin Consultations 05/11/21 06:00 ED Decision to Admit Stat 05/11/21 09:02 Consult Gastroenterology Routine Ordered Studies 05/11/21 00:30 CT abd pelvis IV con only Urgent 05/11/21 11:30 MR MRCP Routine 05/11/21 13:59 US duplex portal hepatic veins Routine Hospital Course (1) Generalized abdominal pain: (2) Mesenteric adenitis: (3) Superior mesenteric vein thrombosis: Superior mesenteric vein thrombosis H/O Splenic, portal vein thrombosis On Lovenox prior to admission --CT abdomen / pelvis - Superior mesenteric venous thrombosis. Surrounding inflammatory changes including fat stranding and lymphadenopathy may be reactive or represent infectious/inflammatory component. Discussed CT abdomen pelvis with the radiologist, reports vein itself is more distended, more inflammation, mesenteric lymph nodes enlarged, possible infecti on/adenitis --MRCP: Normal MRCP. Trace pleural effusions and trace abdominal ascites. Again seen is evidence of thrombosis of the main portal vein with cavernous transformation and thrombosis of the superior mesenteric vein. There is infiltration of the surrounding mesentery. Status post splenectomy. --US of portal and hepatic vasculature: There is thrombosis in the main portal vein with cavernous transformation. This was better assessed on today's CT scan. The superior mesenteric vein and the splenic vein were not visualized. This was better evaluated on today's CT scan. -Held Lovenox Continue IV Heparin while inpt Appreciate GI/ Oncology Input Had Anti-Xa factor as outpatient Monitor for small bowel ischemia Empirically started on IV Zosyn for leukocytosis>>Unasyn - ok to stop Abx per GI Blood Cx: Negative to date -Needs follow-up with vascular surgery upon discharge -- Has appointment on Saturday05/16/2021 -We will need outpatient EGD colonoscopy -Also will need follow-up with anticoagulation clinic, anticoagulant clinic contacted - for now recommend to continue current dose of Lovenox 60 twice daily, plan to follow-up closely Leukocytosis trending down (some leukocytosis present at baseline) Borderline personality disorder Schizoaffective disorder 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 H/O Hereditary spherocytosis. H/O Moyamoya disease S/P Carotid endarterectomy. DVT Px: IV heparin - switch to lovenox as outpt Total Time Total Time Spent Total Time Spent (In Minutes): 40 Discharge Plan Discharge Items Patient Disposition: Home - Self-Care Reason For Visit: ABDOMINAL PAIN Discharge Diagnosis: Abdominal pain in the setting of splenic, portal vein and superior mesenteric vein thrombosis Activity: Per Instructions section Non-emergency contact: Primary Care Provider Call non-emergency contact if: you have any medication questions and your symptoms worsen Follow-up/Referrals: Babatunde Bergman MD [Primary Care Provider] - 05/18/21 10:20 am (Date & Time 05/18/2021 10:20 AM Provider Babatunde Bergman MD [facility] ) Diet: Full liquid Addtl Attending Provider Instructions: The appointment with vascular surgery was arranged for you at the [facility], for tomorrow - 05/16/2021. Your Lovenox dose was also discussed with anticoagulation clinic, you will need to follow-up with them closely. For now they recommend that you continue Lovenox 60 twice daily, as previously. Lastly, follow-up with your primary care doctor, the appointment was scheduled for you for May 18. Pending Studies at Discharge: No Stand-Alone Forms: My [employer], Smoking Cessation Medications and DC Order Prescriptions: New tramadol 50 mg Tablet 50 mg PO Q6H PRN (Reason: pain) Qty: 10 RF: 0 Continued acetaminophen [Tylenol Extra Strength] 500 mg Tablet 1,000 mg PO Q6H PRN (Reason: Pain) RF: 0 gabapentin 800 mg tablet 800 mg PO TID RF: 0 haloperidol 5 mg tablet 5 mg PO DAILY RF: 0 haloperidol 5 mg tablet 10 mg PO HS RF: 0 hydroxyzine pamoate 50 mg capsule 50 mg PO TID PRN (Reason: Anxiety) RF: 0 propranolol 40 mg tablet 40 mg PO BID RF: 0 famotidine 20 mg tablet 20 mg PO BID RF: 0 benztropine 2 mg tablet 2 mg PO BID RF: 0 mirtazapine 15 mg tablet 15 mg PO HS RF: 0 duloxetine 30 mg capsule,delayed release(DR/EC) 30 mg PO DAILY RF: 0 duloxetine 60 mg capsule,delayed release(DR/EC) 60 mg PO DAILY RF: 0 enoxaparin [Lovenox] 60 mg/0.6 mL Syringe 60 mg SUBCUT Q12H RF: 0 Discharge Orders: Discharge Order (Routine); Ordered 05/15/21 Ordered By: Charles Merrill Admission Data Admit Date/Time: 05/11/21 18:04 Attending Provider: Charles Merrill Admit Provider: Toi Dorado Primary Care Provider: Babatunde Bergman Other Providers: Toi Dorado ; Pop Daniel ; Hima Espinal
[2021-05-15 13:27] LABS: Partial Thromboplastin Ratio 2.1
[2021-05-15 13:36] LABS: Partial Thromboplastin Time 56.4 Seconds (21.0-31.0)
[2021-05-15] MEDS ORDERED: ENOXAPARIN INJ 60 MG/0.6 ML SYR SQ SCH (16:30)
[2021-05-16 18:01] LABS: Albumin 3.2 g/dL (3.8-4.8); Alpha 1 Globulin 0.4 g/dL (0.2-0.3); Alpha 2 Globulin 0.9 g/dL (0.5-0.9); Beta-1-Globulin 0.4 g/dL (0.4-0.6); Beta-2-Globulin 0.4 g/dL (0.2-0.5); Gamma Globulin 0.6 g/dL (0.8-1.7); Monoclonal Protein Band 1 DNR g/dL (NONE DETECTED); Monoclonal Protein Band 2 DNR g/dL (NONE DETECTED); Monoclonal Protein Band 3 DNR g/dL (NONE DETECTED); Total Protein 5.9 g/dL (6.1-8.1)
[2021-05-18 17:45] LABS: Alpha 1 Antitrypsin 207 mg/dL (83-199); Anti Mitochondrial Antibody NEGATIVE (NEGATIVE); Anti Nuclear Antibody Screen NEGATIVE (NEGATIVE); CMV IgM Antibody <30.00 AU/mL; Ceruloplasmin 35 mg/dL (18-53); Hepatitis A Antibody IgM NON-REACTIVE (NON-REACTIVE); Hepatitis B Core Antibody IgM NON-REACTIVE (NON-REACTIVE); Smooth Muscle Antibody NEGATIVE (NEGATIVE)
== END 2021-05-15 16:30 | disposition home or self-care (01) | DRG 441 ==
LOC: 3W 21:22 → ED 21:22 → 3W 05-11 08:16 → SUATTDRO 05-11 18:04

== ENCOUNTER 2021-06-07 06:32 | Inpatient (IN) ==
--- NOTE | 2021-06-07 06:58 | Emergency Department Note ---
Impression & Plan Schizoaffective disorder, Bipolar disorder ED Provider Note NAME: MAKENZIE COSTA AGE: 20 SEX: F : 2000 ARRIVES VIA: Walk-In INFORMANT: Patient ED PROVIDER(S): Enrique Guillen DO CHIEF COMPLAINT: Suicidal ideations HPI: Patient is a 20-year-old female who presents ER for suicidal ideations. She has a history of PTSD, and depression. She notes that she feels unsafe at home and she has thoughts of grabbing a knife and killing her self. This started in the past 24 hours. She does not believe she can take it anymore. She denies any auditory or visual hallucinations. No chest pain or shortness of breath. No belly pain, nausea, vomiting, or diarrhea. No dysuria, urgency, or frequency. No other exacerbating or remitting factors. ROS: See above HPI for pertinent positives & negatives. A total of 10 systems reviewed and were otherwise negative. PAST MEDICAL HISTORY:See Below PAST SURGICAL HISTORY:See Below FAMILY HISTORY:See Below SOCIAL HISTORY:See Below HOME MEDICATIONS:See Below ALLERGIES:See Below VITALS:See Below PHYSICAL EXAMINATION: GENERAL: Sitting up in bed, alert, well appearing, well nourished, no distress, non-toxic EYE EXAM: normal conjunctiva. OROPHARYNX: no exudate, no erythema, lips, buccal mucosa, and tongue normal and mucous membranes are moist NECK: supple, no nuchal rigidity, no adenopathy, non-tender LUNGS: Clear to auscultation. Normal chest wall mechanics HEART: no murmurs, S1 normal and S2 normal ABDOMEN: abdomen soft, non-tender, normo-active bowel sounds, no masses, no rebound or guarding. UPPER EXTREMITIES: upper extremities are grossly normal. LOWER EXTREMITIES: No pitting edema. NEURO EXAM: Normal sensorium, cranial nerves II-XII grossly intact, normal speech, no gross weakness of arms, no gross weakness of legs. PSYCH: Admits to suicidal ideations with a plan to kill her self with a knife MEDICAL DECISION MAKING: Patient is a 18-year-old female who presents ER for suicidal ideations with a plan to kill her self. Blood work was obtained and showed no significant leukocytosis or anemia. Platelets were slightly elevated at 638. BMP with LFTs bilirubin and TSH was unremarkable. UA was clean. Tox was negative. Alcohol was negative. Covid was negative. Patient was seen and evaluated and accepted to 3 S. on 201. Observation Status: Indication: Medical stability and psychiatric evaluation Patient with no pertinent family history, was seen first at 0630 hrs and was necessary in order to determine medical stability and avoid unnecessary admission. Upon reevaluation, 8 hours of observation revealed that the patient should be admitted to 3 S. Disposition date and time 1450 on 06/07/2021. Triage Nursing notes reviewed. Limited review of prior medical records performed Vital Signs: reviewed and remarkable for no significant abnormalities Differential diagnosis: Mood disorder, infection, hypoglycemia, electrolyte abnormalities, cardiac sources, intracerebral event, toxicologic, trauma, neurologic, as well as other pathologies. ER treatment provided: See below Diagnostics interpreted by me: ECG: none Laboratory studies: As stated above and show below. 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 Beliefs That Will Affect Care: None marital status: Current Living Situation: Significant Other How many Children do You have: 0 Feels Safe at Home: Yes Assistive Devices: None Allergies Allergies Allergy/AdvReac Type Severity Reaction Status Date / Time vancomycin Allergy Mild Red/Itchy Verified 06/05/21 22:53 skin Home Meds Home Medications Medication Instructions Recorded Confirmed acetaminophen 500 mg tablet 1,000 mg PO Q6H PRN 03/09/21 06/07/21 (Tylenol Extra Strength) benztropine 2 mg tablet 2 mg PO BID 03/09/21 06/07/21 duloxetine 30 mg capsule,delayed 30 mg PO DAILY 03/09/21 06/07/21 release duloxetine 60 mg capsule,delayed 60 mg PO DAILY 03/09/21 06/07/21 release famotidine 20 mg tablet 20 mg PO BID 03/09/21 06/07/21 gabapentin 800 mg tablet 800 mg PO TID 03/09/21 06/07/21 haloperidol 5 mg tablet 5 mg PO DAILY 03/09/21 06/07/21 haloperidol 5 mg tablet 10 mg PO HS 03/09/21 06/07/21 hydroxyzine pamoate 50 mg capsule 50 mg PO TID PRN 03/09/21 06/07/21 mirtazapine 15 mg tablet 15 mg PO HS 03/09/21 06/07/21 propranolol 40 mg tablet 40 mg PO BID 03/09/21 06/07/21 enoxaparin 60 mg/0.6 mL 60 mg SUBCUT Q12H 04/30/21 06/07/21 subcutaneous syringe (Lovenox) Previous Rx's Medication Instructions Recorded tramadol 50 mg tablet 50 mg PO Q6H PRN #10 tab 05/15/21 Results & Data (ED) Vital Signs Vital Signs - 24 hr 06/07/21 06:35 Temperature 36.7 C Temperature Source Oral Pulse Rate 112 H Respiratory Rate 20 Respiratory Effort / Characteristics Non-Labored Spontaneous Respiratory Depth Normal Blood Pressure 109/73 Blood Pressure Mean 85 Pulse Oximetry 97 Oxygen Delivery Method Room Air Sepsis New/Unexplained Change in Mental Status N/A Sepsis Action Taken by Nursing No Action Required Laboratory Data Result diagrams: 06/07/21 07:29 06/07/21 07:29 Lab Results 06/07/21 06/07/21 06/07/21 Range/Units 07:15 07:15 07:29 WBC 8.33 (4.8-10.8) K/uL RBC 4.33 (4.2-5.4) M/uL Hgb 12.9 (12.0-16.0) g/dL Hct 37.2 (37-47) % MCV 85.9 (80-100) fL MCH 29.8 (25-34) pg MCHC 34.7 (32-36) g/dL RDW Std Deviation 44.3 (36.4-46.3) fL RDW Coeff of Toni 14.0 (11.5-14.5) % Plt Count 638 H (130-400) K/uL MPV 8.3 (7.4-10.4) fL Immature Gran % (Auto) 0.1 % Neut % (Auto) 36.9 % Lymph % (Auto) 44.3 % [place] % (Auto) 13.0 % Eos % (Auto) 5.3 % Baso % (Auto) 0.4 % Neut # (Auto) 3.08 (1.4-6.5) K/uL Lymph # (Auto) 3.69 H (1.2-3.4) K/uL [place] # (Auto) 1.08 H (0.11-0.59) K/uL Eos # (Auto) 0.44 (0-0.5) K/uL Baso # (Auto) 0.03 (0-0.2) K/uL Immature Gran # (Auto) 0.01 (0.00-0.02) K/uL PT (9.0-12.0) Seconds INR (0.9-1.1) APTT (21.0-31.0) Seconds PTT Ratio Sodium (136-145) mmol/L Potassium (3.5-5.1) mmol/L Chloride (98-107) mmol/L Carbon Dioxide (21-32) mmol/L Anion Gap (3-11) BUN (7-18) mg/dl Creatinine (0.6-1.2) mg/dl Est Cr Clr Drug Dosing ml/min Est GFR ( Amer) ml/min Est GFR (Non-Af Amer) ml/min BUN/Creatinine Ratio (10-20) Glucose (70-99) mg/dl Calcium (8.5-10.1) mg/dl Total Bilirubin (0.2-1) mg/dl AST (15-37) U/L ALT (12-78) U/L Alkaline Phosphatase (45-117) U/L Total Protein (6.4-8.2) gm/dl Albumin (3.4-5.0) gm/dl Globulin (2.5-4.0) gm/dl Albumin/Globulin Ratio (0.9-2) TSH (0.300-4.500) uIu/ml Urine Color Urine Appearance (Clear) Urine pH (4.5-7.5) Ur Specific [place] (1.000-1.030) Urine Protein (Negative) Urine Glucose (UA) (Negative) Urine Ketones (Negative) Urine Blood (Negative) Urine Nitrite (Negative) Urine Bilirubin (Negative) Urine Urobilinogen (Negative) Ur Leukocyte Esterase (Negative) POC Ur Test (NEG) Salicylates (2.8-20) mg/dl Urine Opiates Screen (Neg) Ur Methadone, Qual (Neg) Acetaminophen (10-30) ug/ml Urine Barbiturates (Neg) Ur Phencyclidine (PCP) (Neg) U Amphetamin/Meth Scrn (Neg) MDMA (Ecstasy) Screen (Neg) U Benzodiazepines Scrn (Neg) Ur Cocaine Metabolite (Neg) U Marijuana (THC) Screen (Neg) Ethyl Alcohol mg/dL (0-3) mg/dl COVID-19 Eval [facility] SARS-[facility]-2, RNA, NAAT NEGATIVE (NEGATIVE) 06/07/21 06/07/21 06/07/21 Range/Units 07:29 07:29 07:29 WBC (4.8-10.8) K/uL RBC (4.2-5.4) M/uL Hgb (12.0-16.0) g/dL Hct (37-47) % MCV (80-100) fL MCH (25-34) pg MCHC (32-36) g/dL RDW Std Deviation (36.4-46.3) fL RDW Coeff of Toni (11.5-14.5) % Plt Count (130-400) K/uL MPV (7.4-10.4) fL Immature Gran % (Auto) % Neut % (Auto) % Lymph % (Auto) % [place] % (Auto) % Eos % (Auto) % Baso % (Auto) % Neut # (Auto) (1.4-6.5) K/uL Lymph # (Auto) (1.2-3.4) K/uL [place] # (Auto) (0.11-0.59) K/uL Eos # (Auto) (0-0.5) K/uL Baso # (Auto) (0-0.2) K/uL Immature Gran # (Auto) (0.00-0.02) K/uL PT (9.0-12.0) Seconds INR (0.9-1.1) APTT (21.0-31.0) Seconds PTT Ratio Sodium 137 (136-145) mmol/L Potassium 4.2 (3.5-5.1) mmol/L Chloride 106 (98-107) mmol/L Carbon Dioxide 26 (21-32) mmol/L Anion Gap 5.0 (3-11) BUN 8 (7-18) mg/dl Creatinine 0.76 (0.6-1.2) mg/dl Est Cr Clr Drug Dosing 117.9 ml/min Est GFR ( Amer) 129.1 ml/min Est GFR (Non-Af Amer) 111.3 ml/min BUN/Creatinine Ratio 10.3 (10-20) Glucose 104 H (70-99) mg/dl Calcium 8.9 (8.5-10.1) mg/dl Total Bilirubin 0.4 (0.2-1) mg/dl AST 13 L (15-37) U/L ALT 24 (12-78) U/L Alkaline Phosphatase 109 (45-117) U/L Total Protein 6.6 (6.4-8.2) gm/dl Albumin 3.4 (3.4-5.0) gm/dl Globulin 3.2 (2.5-4.0) gm/dl Albumin/Globulin Ratio 1.1 (0.9-2) TSH 1.800 (0.300-4.500) uIu/ml Urine Color Urine Appearance (Clear) Urine pH (4.5-7.5) Ur Specific [place] (1.000-1.030) Urine Protein (Negative) Urine Glucose (UA) (Negative) Urine Ketones (Negative) Urine Blood (Negative) Urine Nitrite (Negative) Urine Bilirubin (Negative) Urine Urobilinogen (Negative) Ur Leukocyte Esterase (Negative) POC Ur Test (NEG) Salicylates < 1.7 L (2.8-20) mg/dl Urine Opiates Screen (Neg) Ur Methadone, Qual (Neg) Acetaminophen < 2 L (10-30) ug/ml Urine Barbiturates (Neg) Ur Phencyclidine (PCP) (Neg) U Amphetamin/Meth Scrn (Neg) MDMA (Ecstasy) Screen (Neg) U Benzodiazepines Scrn (Neg) Ur Cocaine Metabolite (Neg) U Marijuana (THC) Screen (Neg) Ethyl Alcohol mg/dL < 3.0 (0-3) mg/dl COVID-19 Eval Order SARS-CoV-2, RNA, NAAT (NEGATIVE) 06/07/21 06/07/21 06/07/21 Range/Units 10:30 10:30 10:30 WBC (4.8-10.8) K/uL RBC (4.2-5.4) M/uL Hgb (12.0-16.0) g/dL Hct (37-47) % MCV (80-100) fL MCH (25-34) pg MCHC (32-36) g/dL RDW Std Deviation (36.4-46.3) fL RDW Coeff of Toni (11.5-14.5) % Plt Count (130-400) K/uL MPV (7.4-10.4) fL Immature Gran % (Auto) % Neut % (Auto) % Lymph % (Auto) % [place] % (Auto) % Eos % (Auto) % Baso % (Auto) % Neut # (Auto) (1.4-6.5) K/uL Lymph # (Auto) (1.2-3.4) K/uL [place] # (Auto) (0.11-0.59) K/uL Eos # (Auto) (0-0.5) K/uL Baso # (Auto) (0-0.2) K/uL Immature Gran # (Auto) (0.00-0.02) K/uL PT (9.0-12.0) Seconds INR (0.9-1.1) APTT (21.0-31.0) Seconds PTT Ratio Sodium (136-145) mmol/L Potassium (3.5-5.1) mmol/L Chloride (98-107) mmol/L Carbon Dioxide (21-32) mmol/L Anion Gap (3-11) BUN (7-18) mg/dl Creatinine (0.6-1.2) mg/dl Est Cr Clr Drug Dosing ml/min Est GFR ( Amer) ml/min Est GFR (Non-Af Amer) ml/min BUN/Creatinine Ratio (10-20) Glucose (70-99) mg/dl Calcium (8.5-10.1) mg/dl Total Bilirubin (0.2-1) mg/dl AST (15-37) U/L ALT (12-78) U/L Alkaline Phosphatase (45-117) U/L Total Protein (6.4-8.2) gm/dl Albumin (3.4-5.0) gm/dl Globulin (2.5-4.0) gm/dl Albumin/Globulin Ratio (0.9-2) TSH (0.300-4.500) uIu/ml Urine Color Yellow Urine Appearance Clear (Clear) Urine pH 8.0 H (4.5-7.5) Ur Specific [place] 1.004 (1.000-1.030) Urine Protein Negative (Negative) Urine Glucose (UA) Negative (Negative) Urine Ketones Negative (Negative) Urine Blood Negative (Negative) Urine Nitrite Negative (Negative) Urine Bilirubin Negative (Negative) Urine Urobilinogen Negative (Negative) Ur Leukocyte Esterase Negative (Negative) POC Ur Test NEG (NEG) Salicylates (2.8-20) mg/dl Urine Opiates Screen Neg (Neg) Ur Methadone, Qual Neg (Neg) Acetaminophen (10-30) ug/ml Urine Barbiturates Neg (Neg) Ur Phencyclidine (PCP) Neg (Neg) U Amphetamin/Meth Scrn Neg (Neg) MDMA (Ecstasy) Screen Neg (Neg) U Benzodiazepines Scrn Neg (Neg) Ur Cocaine Metabolite Neg (Neg) U Marijuana (THC) Screen Neg (Neg) Ethyl Alcohol mg/dL (0-3) mg/dl COVID-19 Eval Order SARS-CoV-2, RNA, NAAT (NEGATIVE) 06/07/21 Range/Units 13:49 WBC (4.8-10.8) K/uL RBC (4.2-5.4) M/uL Hgb (12.0-16.0) g/dL Hct (37-47) % MCV (80-100) fL MCH (25-34) pg MCHC (32-36) g/dL RDW Std Deviation (36.4-46.3) fL RDW Coeff of Toni (11.5-14.5) % Plt Count (130-400) K/uL MPV (7.4-10.4) fL Immature Gran % (Auto) % Neut % (Auto) % Lymph % (Auto) % [place] % (Auto) % Eos % (Auto) % Baso % (Auto) % Neut # (Auto) (1.4-6.5) K/uL Lymph # (Auto) (1.2-3.4) K/uL [place] # (Auto) (0.11-0.59) K/uL Eos # (Auto) (0-0.5) K/uL Baso # (Auto) (0-0.2) K/uL Immature Gran # (Auto) (0.00-0.02) K/uL PT 10.3 (9.0-12.0) Seconds INR 1.0 (0.9-1.1) APTT 23.9 (21.0-31.0) Seconds PTT Ratio 0.9 Sodium (136-145) mmol/L Potassium (3.5-5.1) mmol/L Chloride (98-107) mmol/L Carbon Dioxide (21-32) mmol/L Anion Gap (3-11) BUN (7-18) mg/dl Creatinine (0.6-1.2) mg/dl Est Cr Clr Drug Dosing ml/min Est GFR ( Amer) ml/min Est GFR (Non-Af Amer) ml/min BUN/Creatinine Ratio (10-20) Glucose (70-99) mg/dl Calcium (8.5-10.1) mg/dl Total Bilirubin (0.2-1) mg/dl AST (15-37) U/L ALT (12-78) U/L Alkaline Phosphatase (45-117) U/L Total Protein (6.4-8.2) gm/dl Albumin (3.4-5.0) gm/dl Globulin (2.5-4.0) gm/dl Albumin/Globulin Ratio (0.9-2) TSH (0.300-4.500) uIu/ml Urine Color Urine Appearance (Clear) Urine pH (4.5-7.5) Ur Specific [place] (1.000-1.030) Urine Protein (Negative) Urine Glucose (UA) (Negative) Urine Ketones (Negative) Urine Blood (Negative) Urine Nitrite (Negative) Urine Bilirubin (Negative) Urine Urobilinogen (Negative) Ur Leukocyte Esterase (Negative) POC Ur Test (NEG) Salicylates (2.8-20) mg/dl Urine Opiates Screen (Neg) Ur Methadone, Qual (Neg) Acetaminophen (10-30) ug/ml Urine Barbiturates (Neg) Ur Phencyclidine (PCP) (Neg) U Amphetamin/Meth Scrn (Neg) MDMA (Ecstasy) Screen (Neg) U Benzodiazepines Scrn (Neg) Ur Cocaine Metabolite (Neg) U Marijuana (THC) Screen (Neg) Ethyl Alcohol mg/dL (0-3) mg/dl COVID-19 Eval Order SARS-CoV-2, RNA, NAAT (NEGATIVE) Discharge Plan Visit Data Chief Complaint: Mental Health Evaluation Stated Complaint: SUICIDAL ED Provider: Enrique Guillen Discharge Problem: Schizoaffective disorder, Bipolar disorder Forms Stand Alone Forms: [facility], Suicide Prevention Resources Prescriptions Prescriptions: No Action acetaminophen [Tylenol Extra Strength] 500 mg Tablet 1,000 mg PO Q6H PRN (Reason: Pain) RF: 0 gabapentin 800 mg tablet 800 mg PO TID RF: 0 haloperidol 5 mg tablet 5 mg PO DAILY RF: 0 haloperidol 5 mg tablet 10 mg PO HS RF: 0 hydroxyzine pamoate 50 mg capsule 50 mg PO TID PRN (Reason: Anxiety) RF: 0 propranolol 40 mg tablet 40 mg PO BID RF: 0 famotidine 20 mg tablet 20 mg PO BID RF: 0 benztropine 2 mg tablet 2 mg PO BID RF: 0 mirtazapine 15 mg tablet 15 mg PO HS RF: 0 duloxetine 30 mg capsule,delayed release(DR/EC) 30 mg PO DAILY RF: 0 duloxetine 60 mg capsule,delayed release(DR/EC) 60 mg PO DAILY RF: 0 enoxaparin [Lovenox] 60 mg/0.6 mL Syringe 60 mg SUBCUT Q12H RF: 0 tramadol 50 mg Tablet 50 mg PO Q6H PRN (Reason: pain) Qty: 10 RF: 0 Referrals Referrals: Babatunde Bergman MD [Primary Care Provider] - Discharge Problem: Schizoaffective disorder Qualifiers: Schizoaffective disorder type: unspecified Qualified Code(s): F25.9 - Schizoaffective disorder, unspecified Bipolar disorder Qualifiers: Active/Remission status: remission status unspecified Qualified Code(s): F31.9 - Bipolar disorder, unspecified
[2021-06-07 07:41] LABS: Basophils # (auto) 0.03 K/uL (0-0.2); Basophils % (auto) 0.4 %; Eosinophils # (auto) 0.44 K/uL (0-0.5); Eosinophils % (auto) 5.3 %; Hematocrit (blood only) 37.2 % (37-47); Hemoglobin 12.9 g/dL (12.0-16.0); Immature Granulocytes # (auto) 0.01 K/uL (0.00-0.02); Immature Granulocytes % (auto) 0.1 %; Lymphocytes # (auto) 3.69 K/uL (1.2-3.4); Lymphocytes % (auto) 44.3 %; Mean Corpuscular Hemoglobin 29.8 pg (25-34); Mean Corpuscular Hgb Conc 34.7 g/dL (32-36); Mean Corpuscular Volume 85.9 fL (80-100); Mean Platelet Volume 8.3 fL (7.4-10.4); Monocytes # (auto) 1.08 K/uL (0.11-0.59); Neutrophils # (auto) 3.08 K/uL (1.4-6.5); Neutrophils % (auto) 36.9 %; Platelet Count 638 K/uL (130-400); RDW Standard Deviation 44.3 fL (36.4-46.3); Red Blood Count 4.33 M/uL (4.2-5.4); White Blood Count 8.33 K/uL (4.8-10.8)
[2021-06-07 08:11] LABS: Acetaminophen < 2 ug/ml (10-30); Salicylate < 1.7 mg/dl (2.8-20)
[2021-06-07 08:12] LABS: Albumin Level 3.4 gm/dl (3.4-5.0); BUN Creatinine Ratio 10.3 (10-20); Calcium 8.9 mg/dl (8.5-10.1); Creatinine Clr Calc Pharmacy 117.9 ml/min; Est GFR (African American) 129.1 ml/min; Est GFR (Non-African American) 111.3 ml/min; Potassium 4.2 mmol/L (3.5-5.1)
[2021-06-07 08:23] LABS: Albumin Globulin Ratio 1.1 (0.9-2); Bilirubin,Total 0.4 mg/dl (0.2-1); Globulin 3.2 gm/dl (2.5-4.0); Thyroid Stimulating Hormone 1.8 uIu/ml (0.300-4.500); Total Protein 6.6 gm/dl (6.4-8.2)
[2021-06-07 10:44] LABS: Appearance Urine Clear (Clear); Bilirubin Urine Negative (Negative); Blood Urine Negative (Negative); Color Urine Yellow; Glucose Urine UA Negative (Negative); Ketones Urine Negative (Negative); Leukocyte Esterase Urine Negative (Negative); Nitrite Urine Negative (Negative); Protein Urine Negative (Negative); Specific Gravity Urine 1.004 (1.000-1.030); Urobilinogen Urine Negative (Negative)
[2021-06-07 11:09] LABS: Amphetamines+Metham, Urine Neg (Neg); Barbiturates, Urine Neg (Neg); Benzodiazepine, Urine Neg (Neg); Cocaine, Urine Neg (Neg); MDMA (Ecstacy), Urine Neg (Neg); Methadone, Urine Neg (Neg); Opiate, Urine Neg (Neg); Phencyclidine, Urine Neg (Neg)
[2021-06-07] MEDS ORDERED: MAGNESIUM HYDROXIDE SUSP 30 ML UDC PO PRN (13:59)
[2021-06-07] MEDS ORDERED: BISMUTH SUBSALICYLATE LIQD 236 ML PO PRN (13:59)
[2021-06-07] MEDS ORDERED: hydrOXYzine HCl 25 MG TAB PO PRN ×2 (13:59)
[2021-06-07] MEDS ORDERED: ACETAMINOPHEN 325 MG TAB PO PRN (13:59)
[2021-06-07] MEDS ORDERED: SODIUM CHLORIDE 0.65% NA SOLN 45 ML (OCEAN) PRN (13:59)
[2021-06-07] MEDS ORDERED: ALUMINUM/MAGNESIUM SUSP 30 ML UDC PO PRN (13:59)
[2021-06-07 14:25] LABS: Partial Thromboplastin Ratio 0.9; Partial Thromboplastin Time 23.9 Seconds (21.0-31.0); Prothrombin Time 10.3 Seconds (9.0-12.0)
[2021-06-07] MEDS: ENOXAPARIN INJ 60 MG/0.6 ML SYR SQ SCH (18:03)
[2021-06-07] MEDS ORDERED: MIRTAZAPINE TAB 15 MG TAB PO SCH (21:00)
[2021-06-07] MEDS: BENZTROPINE MESYLATE 1 MG TAB PO SCH (21:03)
[2021-06-07] MEDS: FAMOTIDINE 20 MG TAB PO SCH (21:03)
[2021-06-07] MEDS: GABAPENTIN 800 MG TAB PO SCH (21:04)
[2021-06-07] MEDS: haloperidoL 5 MG TAB PO SCH (21:04)
[2021-06-07] MEDS: PROPRANOLOL HCL 20 MG TAB PO SCH (21:04)
[2021-06-08] MEDS: ENOXAPARIN INJ 60 MG/0.6 ML SYR SQ SCH ×2 (06:06→17:44)
[2021-06-08] MEDS: GABAPENTIN 800 MG TAB PO SCH ×3 (08:33→20:56)
[2021-06-08] MEDS: DULoxetine HCL 60 MG CAP PO SCH (08:33)
[2021-06-08] MEDS: DULoxetine HCL 30 MG CAP PO SCH (08:33)
[2021-06-08] MEDS: BENZTROPINE MESYLATE 1 MG TAB PO SCH ×2 (08:33→20:56)
[2021-06-08] MEDS: FAMOTIDINE 20 MG TAB PO SCH ×2 (08:33→20:56)
[2021-06-08] MEDS: haloperidoL 5 MG TAB PO SCH ×2 (08:34→20:56)
[2021-06-08 08:56] LABS: Chol HDL Ratio 5; Cholesterol 169 mg/dl (0-200); HDL Cholesterol 34 mg/dl; LDL Cholesterol Calculated 107 mg/dl; Triglycerides 141 mg/dl (0-150); VLDL Cholesterol 28 mg/dl
[2021-06-08 09:38] LABS: Estimated Average Glucose 103 mg/dl; Hemoglobin A1C 5.2 % (4.5-5.6)
[2021-06-08] MEDS: PROPRANOLOL HCL 20 MG TAB PO SCH ×2 (10:36→20:56)
[2021-06-08] MEDS: ACETAMINOPHEN 500 MG TAB PO PRN (10:43)
--- NOTE | 2021-06-08 11:31 | History & Physical ---
Date of Service June 08, 2021 Impression / Recommendations Impression 20 yo female with multiple medical conditions, reports hx of primarily depressive dx but both schizoaffective and bipolar disorder have been listed on chart for various admissions (records pending). Patient presented with CAH in the context of worsening depression with SI. Currently experiencing generalized abdominal complaints. (1) Major depression: (2) Generalized abdominal pain: (3) Mesenteric adenitis: (4) Thrombocytosis: (5) Asplenia: (6) Brock brock disease: The patient was admitted to the [facility] ([facility]) on q15 min checks (behavioral with suicide precautions) for safety. The patient will participate in group, recreational, and milieu therapies and will be offered additional individual and family sessions as clinically appropriate. MNPR given multiple medical issues/risk of peers to patient if unpredictable/aggressive behavior and during COVID. Continue current medications pending records, patient may benefit from increase in hs Remeron. Likely some anxiety component to rhoades as resolved upon admission. Unlikely to taper Cymbalta as may be helping recurrent pain syndromes. Consider medical consult (currently nothing acute as pain is typical and offering prns). Inventory Assets Strengths: working, supportive , wants to resume therapy Needs: therapist, coordination with medical Risk Factors Assessment Male: No : Yes Do You Have Access To A Gun?: No Health Problems: Yes Mental Health Diagnoses: Yes Substance Use Disorders: No Previous Attempt: Yes Family History of Suicide: No Previous Psychiatric Hospitalization: Yes Protective Factors Assessment : Yes Responsible for Young Children: No Employed: Yes ([employer]) Psychiatric History Identifying Data MAKENZIE COSTA is a 20-year-old F who currently lives in [place], has a history of depression with SI and a prior suicide attempt, and was admitted on 06/07/21 14:00 on a 201 voluntary commitment for SI with plan. Chief Complaint "My depression just gets out of hand and I can't deal with it". History of Present Illness Makenzie presented to ED yesterday with worsening depression for a few weeks, doesn't feel like meds are helping or "I wouldn't get voices". States when she becomes depressed her voices tell her to cut herself. Her suicide plan would be to "slit" her wrist. 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 She denies ever having hallucinations outside of depression and denies she has been diagnosed with schizoaffective disorder so it will be removed from her problem list. She did not endorse any periods of elevated mood. Her mood symptoms resulted in inpatient care age 18, only diagnosed with brock brock disease about 1 year ago as "I kept passing out". 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 She reports her marriage is strong and views and her sister as supportive, otherwise "family doesn't understand me". Her parents remain in [place] and brother is at [place] and won't respond to texts but he's "always been like that". Past Psychiatric History Previous Psych History: MDD, ARELY Current Psychiatric Diagnosis: MDD Outpatient Services: Dr. Renae--Myles MIGUEL, previously therapy with [facility] and would like to resume. Previous Psych Admissions: [facility]--6 months ago, [facility] 1 year ago s/p OD. Do You Have Access To A Gun?: No History of Previous Suicide Attempt: Yes Describe Attempts in the Past: overdose of prescription sleeping pills Past Medication Trials: only notes Prozac. Denies Invega. Allergies Allergy/AdvReac Type Severity Reaction Status Date / Time vancomycin Allergy Mild Red/Itchy Verified 06/05/21 22:53 skin Home Medications Medication Instructions Recorded Confirmed Type acetaminophen 500 mg tablet 1,000 mg PO Q6H PRN 03/09/21 06/07/21 History (Tylenol Extra Strength) benztropine 2 mg tablet 2 mg PO BID 03/09/21 06/07/21 History duloxetine 30 mg capsule,delayed 30 mg PO DAILY 03/09/21 06/07/21 History release duloxetine 60 mg capsule,delayed 60 mg PO DAILY 03/09/21 06/07/21 History release famotidine 20 mg tablet 20 mg PO BID 03/09/21 06/07/21 History gabapentin 800 mg tablet 800 mg PO TID 03/09/21 06/07/21 History haloperidol 5 mg tablet 5 mg PO DAILY 03/09/21 06/07/21 History haloperidol 5 mg tablet 10 mg PO HS 03/09/21 06/07/21 History hydroxyzine pamoate 50 mg capsule 50 mg PO TID PRN 03/09/21 06/07/21 History mirtazapine 15 mg tablet 15 mg PO HS 03/09/21 06/07/21 History propranolol 40 mg tablet 40 mg PO BID 03/09/21 06/07/21 History enoxaparin 60 mg/0.6 mL 60 mg SUBCUT Q12H 04/30/21 06/07/21 History subcutaneous syringe (Lovenox) tramadol 50 mg tablet 50 mg PO Q6H PRN #10 tab 05/15/21 06/07/21 Rx Family History Family History of: None Alcohol History Hx of Alcohol Use Over the Past 12 Months: No AUDIT Total Score: 1 Smoking Use Have You Smoked or Used Tobacco Products in the Last 30 Days: No Smoking Status: Never smoker Substance History Hx of Prescription Med Misuse Over the Past 12 Months: No Hx of Over the Counter Med Misuse Over the Past 12 Months: No Hx of Inhalent Misuse Over the Past 12 Months: No Hx of Organic Substance Use Over the Past 12 Months: No Hx of Illegal Substances/Street Drug Use Over Past 12 Months: No Problems as a Result of Past Substance Use: None Identified Personal History Living Arrangements: Apartment Childhood: 1 bro and 1 sis, grew up in [place] Highest Grade Completed: Some College 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[employer]) Marital Status: Number Of Children: 0 Beliefs That Will Affect Care: None Current Legal Problems: No Hx Traumatic Life Events: No Patient History Medical History Asplenia Intermittent asthma Brock brock disease Portal vein thrombosis PTSD (post-traumatic stress disorder) Superior mesenteric vein thrombosis Thrombocytosis Family History Other Family history non-contributory Social History Smoking Status: Never smoker Hx Alcohol Use: No Hx Substance Use: No Preferred Language: Bengali Communication Ability: Effective Molecular Technologist Required: No Beliefs That Will Affect Care: None marital status: Current Living Situation: Significant Other How many Children do You have: 0 Feels Safe at Home: Yes Assistive Devices: None Review of Systems Review of Systems: All systems reviewed & are unremarkable except as noted in HPI & below Physical Exam Psychiatric: Orientation: alert and oriented x 3 Apperance: appropriately dressed and appropriately groomed Eye Contact: + fair eye contact Motor Behavior: no abnormal motor movements Speech: normal rate/rhythm/volume of speech Affect: + depressed affect Mood: + depressed mood Thought Process: goal directed thought process Thought Content: reality based without delusions Suicidal Thoughts: denies suicidal intent; + reports suicidal thoughts and + reports suicidal plan Homicidal Thoughts: denies homicidal thoughts Hallucinations: no auditory hallucinations and no visual hallucinations Cognition: attention grossly intact and language grossly intact Estimated Intelligence: consistent with education level Insight: + limited insight Judgement: + limited judgement Vital Signs (Past 24 Hours): Last Vital Signs Temp 36.8 C 06/08/21 06:24 Pulse 75 06/08/21 08:41 Resp 16 06/08/21 06:24 BP 94/60 L 06/08/21 10:47 Pulse Ox 97 06/07/21 06:35 Exam Statement: A physical exam was performed in the ED by Dr. Guillen for the purposes of medical clearance. I accept that physical as correct and adequate for the purposes of the inpatient physical exam. Results & Data ([facility]) Laboratory Results Laboratory Results - last 24 hr 06/07/21 06/07/21 06/08/21 10:30 13:49 07:30 PT 10.3 INR 1.0 APTT 23.9 PTT Ratio 0.9 Estimat Average Glucose 103 Hemoglobin A1c 5.2 Triglycerides Cholesterol LDL Cholesterol, Calc VLDL Cholesterol, Calc HDL Cholesterol Cholesterol/HDL Ratio Urine Opiates Screen Neg Ur Methadone, Qual Neg Urine Barbiturates Neg Ur Phencyclidine (PCP) Neg U Amphetamin/Meth Scrn Neg MDMA (Ecstasy) Screen Neg U Benzodiazepines Scrn Neg Ur Cocaine Metabolite Neg U Marijuana (THC) Screen Neg 06/08/21 07:30 PT INR APTT PTT Ratio Estimat Average Glucose Hemoglobin A1c Triglycerides 141 Cholesterol 169 LDL Cholesterol, Calc 107 VLDL Cholesterol, Calc 28 HDL Cholesterol 34 Cholesterol/HDL Ratio 5 Urine Opiates Screen Ur Methadone, Qual Urine Barbiturates Ur Phencyclidine (PCP) U Amphetamin/Meth Scrn MDMA (Ecstasy) Screen U Benzodiazepines Scrn Ur Cocaine Metabolite U Marijuana (THC) Screen Current Inpatient Medications Current Inpatient Medications: Current Inpatient Medications Acetaminophen (Acetaminophen 500 Mg Tab) 1,000 mg PO Q6H PRN PRN Reason: Pain Stop: 07/07/21 16:27 Last Admin: 06/08/21 10:43 Dose: 1,000 mg Documented by: Al Hydrox/Mg Hydrox/Simethicone (Aluminum/Magnesium Susp 30 Ml Udc) 30 ml PO Q4H PRN PRN Reason: GI Upset Stop: 07/07/21 13:58 Benztropine Mesylate (Benztropine Mesylate 1 Mg Tab) 2 mg PO BID RENU Stop: 07/07/21 20:59 Last Admin: 06/08/21 08:33 Dose: 2 mg Documented by: Bismuth Subsalicylate (Bismuth Subsalicylate Liqd 236 Ml) 15 ml PO PRN PRN PRN Reason: Loose Stool Stop: 07/07/21 13:58 Duloxetine HCl (Duloxetine Hcl 30 Mg Cap) 30 mg PO DAILY RENU Stop: 07/08/21 08:59 Last Admin: 06/08/21 08:33 Dose: 30 mg Documented by: Duloxetine HCl (Duloxetine Hcl 60 Mg Cap) 60 mg PO DAILY RENU Stop: 07/08/21 08:59 Last Admin: 06/08/21 08:33 Dose: 60 mg Documented by: Enoxaparin Sodium (Enoxaparin Inj 60 Mg/0.6 Ml Syr) 60 mg SQ Q12H RENU Stop: 07/07/21 17:59 Last Admin: 06/08/21 06:06 Dose: 60 mg Documented by: Famotidine (Famotidine 20 Mg Tab) 20 mg PO BID RENU Stop: 07/07/21 20:59 Last Admin: 06/08/21 08:33 Dose: 20 mg Documented by: Gabapentin (Gabapentin 800 Mg Tab) 800 mg PO TID RENU Stop: 07/07/21 20:59 Last Admin: 06/08/21 08:33 Dose: 800 mg Documented by: Haloperidol (Haloperidol 5 Mg Tab) 5 mg PO DAILY RENU Stop: 07/08/21 08:59 Last Admin: 06/08/21 08:34 Dose: 5 mg Documented by: Haloperidol (Haloperidol 5 Mg Tab) 10 mg PO HS RENU Stop: 07/07/21 20:59 Last Admin: 06/07/21 21:04 Dose: 10 mg Documented by: Hydroxyzine HCl (Hydroxyzine Hcl 25 Mg Tab) 50 mg PO TID PRN PRN Reason: Anxiety Stop: 07/07/21 14:02 Magnesium Hydroxide (Magnesium Hydroxide Susp 30 Ml Udc) 30 ml PO DAILY PRN PRN Reason: Constipation Stop: 07/07/21 13:58 Mirtazapine (Mirtazapine Tab 15 Mg Tab) 15 mg PO HS RENU Stop: 07/07/21 20:59 Last Admin: 06/07/21 21:04 Dose: 15 mg Documented by: Propranolol HCl (Propranolol Hcl 20 Mg Tab) 40 mg PO BID RENU Stop: 07/07/21 20:59 Last Admin: 06/08/21 10:36 Dose: Not Given Documented by: Sodium Chloride (Sodium Chloride 0.65% Na Soln 45 Ml ([place])) 1 - 2 sprays NA PRN PRN PRN Reason: Nasal Dryness/Congestion Stop: 07/07/21 13:58 Tramadol HCl (Tramadol Hcl 50 Mg Tablet) 50 mg PO Q6H PRN PRN Reason: pain Stop: 07/07/21 14:02
--- NOTE | 2021-06-08 13:47 | Communication Note ---
Date of Service: June 08, 2021 Patient seen following meal. States pain is unchanged. Reviewed nature of prns and that Ultram is ordered. Continues to deny hx of bipolar or schizoaffective disorder, states only depression with subsequent psychotic symptoms. Patient agreed to titrate Remeron to 30 mg hs.
[2021-06-08] MEDS: traMADol HCL 50 MG TABLET PO PRN (13:52)
[2021-06-08] MEDS: MIRTAZAPINE TAB 15 MG TAB PO SCH (20:56)
[2021-06-09] MEDS: ENOXAPARIN INJ 60 MG/0.6 ML SYR SQ SCH ×2 (06:08→17:38)
[2021-06-09] MEDS: BENZTROPINE MESYLATE 1 MG TAB PO SCH ×2 (09:03→20:44)
[2021-06-09] MEDS: DULoxetine HCL 30 MG CAP PO SCH (09:04)
[2021-06-09] MEDS: GABAPENTIN 800 MG TAB PO SCH ×3 (09:04→20:44)
[2021-06-09] MEDS: FAMOTIDINE 20 MG TAB PO SCH ×2 (09:04→20:44)
[2021-06-09] MEDS: DULoxetine HCL 60 MG CAP PO SCH (09:04)
[2021-06-09] MEDS: PROPRANOLOL HCL 20 MG TAB PO SCH ×2 (09:05→20:44)
[2021-06-09] MEDS: haloperidoL 5 MG TAB PO SCH ×2 (09:05→20:45)
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
[2021-06-09] MEDS: traMADol HCL 50 MG TABLET PO PRN ×2 (14:42→20:47)
[2021-06-09] MEDS: ACETAMINOPHEN 500 MG TAB PO PRN (17:18)
[2021-06-09] MEDS: MIRTAZAPINE TAB 15 MG TAB PO SCH (20:45)
[2021-06-10] MEDS: ACETAMINOPHEN 500 MG TAB PO PRN (02:20)
[2021-06-10] MEDS: ENOXAPARIN INJ 60 MG/0.6 ML SYR SQ SCH ×2 (06:18→17:40)
[2021-06-10] MEDS: BENZTROPINE MESYLATE 1 MG TAB PO SCH ×2 (10:25→21:11)
[2021-06-10] MEDS: GABAPENTIN 800 MG TAB PO SCH ×3 (10:26→21:10)
[2021-06-10] MEDS: DULoxetine HCL 60 MG CAP PO SCH (10:26)
[2021-06-10] MEDS: DULoxetine HCL 30 MG CAP PO SCH (10:27)
[2021-06-10] MEDS: haloperidoL 5 MG TAB PO SCH (10:27)
[2021-06-10] MEDS: FAMOTIDINE 20 MG TAB PO SCH ×2 (10:27→21:10)
[2021-06-10] MEDS: PROPRANOLOL HCL 20 MG TAB PO SCH ×2 (10:36→21:10)
[2021-06-10] MEDS: traMADol HCL 50 MG TABLET PO PRN (15:29)
--- NOTE | 2021-06-10 16:05 | Psychiatric Progress Note ---
Date of Service June 10, 2021 Impression / Recommendations Impression 20 yo woman with history of brock brock disease, mesenteric adenitis, pain and possible schizoaffective vs BPAD vs depression who was admitted for cAH with worsening depression and SI. 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 She remains at high acute risk given ongoing cAH telling her to harm herself. Discussed medication options at length. She finds remeron, cymbalta and gabapentin to be helpful and denies any side effects. Discussed switching from haldol to an alternative antipsychotic given poor control of cAH. She would like to try risperidone instead and consented to this. Discussed risks of movement side effects (dystonia, TD, akathisia), elevated prolactin and metabolic risks. -Voluntary -MNPR due to intensity of psychotic symptoms (1) Major depression: (2) Generalized abdominal pain: (3) Mesenteric adenitis: (4) Thrombocytosis: (5) Asplenia: (6) Brock brock disease: 06/10/21: Start cross-taper from haldol to risperidone. Decrease haldol from 5mg qAm to 2.5 and evening dose from 10 mg to 5 mg qhs. Will start risperi done 0.25 qAM & 0.5 qHS. Continue remeron, cymbalta and gabapentin. Goal to taper cogentin to discontinuation once cross-taper is complete. 06/09/21: Remeron just increased last pm. I'm hesitant to increase haldol as rhoades seem mood driven and it is not clear to me that she has been tried on atypcials other than Invega or Seroquel. Consider Abilify or Latuda trial. 06/08/21: [facility] patient [facility] ([facility] inpatient mental health unit) on q15 min checks (behavioral with suicide precautions) for safety. The patient will participate in group, recreational, and milieu therapies and will be offered additional individual and family sessions as clinically appropriate. MNPR given multiple medical issues/risk of peers to patient if unpredictable/aggressive behavior and during COVID. Continue current medications pending records, patient may benefit from increase in hs Remeron. Likely some anxiety component to rhoades as resolved upon admission. Unlikely to taper Cymbalta as may be helping recurrent pain syndromes. Consider medical consult (currently nothing acute as pain is typical and offering prns). Inventory Assets Strengths: working, supportive , wants to resume therapy Needs: therapist, coordination with medical Risk Factors Assessment Male: No : Yes Do You Have Access To A Gun?: No Health Problems: Yes Mental Health Diagnoses: Yes Substance Use Disorders: No Previous Attempt: Yes Family History of Suicide: No Previous Psychiatric Hospitalization: Yes Protective Factors Assessment : Yes Responsible for Young Children: No Employed: Yes ([employer]) Interval History Identifying Information MAKENZIE COSTA is a 20-year-old F with a history of depression with SI and a prior suicide attempt, who was admitted on 06/07/21 14:00 on a 201 voluntary commitment for cAH telling her to hurt herself and SI with plan. Chief Complaint "The voices are still telling me to hurt myself". Review of Systems Sleep Information Total Hours of Sleep: 5.75 Sleep Comments: pt on q-15 minute checks Meal Information Percent Meal Consumed - Breakfast: 100 Percent Meal Consumed - Lunch: 100 Percent Meal Consumed - Dinner: 100 Subjective Subjective Patient was seen & assessed and interval progress reviewed with treatment team nursing and social work. She is lying in bed but has been eating. She reports low mood due to intensity of cAH telling her to hurt herself. These voices have been present for a long time but intensity recently worsened. Haldol doesn't seem to help much. Physical Exam Psychiatric Orientation: alert and oriented x 3 Apperance: appropriately dressed and appropriately groomed Eye Contact: good eye contact Motor Behavior: no abnormal motor movements Speech: normal rate/rhythm/volume of speech Affect: + flat affect Mood: + depressed mood Thought Process: linear/logical thought process and + concrete thought process Thought Content: reality based without delusions intermittent ego-dystonic SI related to cAH Homicidal Thoughts: denies homicidal thoughts Hallucinations: + auditory hallucinations Cognition: recent memory grossly intact, remote memory grossly intact, attention grossly intact and language grossly intact Estimated Intelligence: + below average estimated intelligence Insight: + fair insight Judgement: + fair judgement Vital Signs (Past 24 Hours) Last Vital Signs Temp 36.7 C 06/10/21 06:00 Pulse 87 06/10/21 06:40 Resp 16 06/10/21 06:00 BP 102/70 06/10/21 10:38 Pulse Ox 97 06/07/21 06:35 Results & Data ([facility]) Current Inpatient Medications Current Inpatient Medications: Current Inpatient Medications Acetaminophen (Acetaminophen 500 Mg Tab) 1,000 mg PO Q6H PRN PRN Reason: Pain Stop: 07/07/21 16:27 Last Admin: 06/10/21 02:20 Dose: 1,000 mg Documented by: Al Hydrox/Mg Hydrox/Simethicone (Aluminum/Magnesium Susp 30 Ml Udc) 30 ml PO Q4H PRN PRN Reason: GI Upset Stop: 07/07/21 13:58 Benztropine Mesylate (Benztropine Mesylate 1 Mg Tab) 2 mg PO BID RENU Stop: 07/07/21 20:59 Last Admin: 06/10/21 10:25 Dose: 2 mg Documented by: Bismuth Subsalicylate (Bismuth Subsalicylate Liqd 236 Ml) 15 ml PO PRN PRN PRN Reason: Loose Stool Stop: 07/07/21 13:58 Duloxetine HCl (Duloxetine Hcl 30 Mg Cap) 30 mg PO DAILY RENU Stop: 07/08/21 08:59 Last Admin: 06/10/21 10:27 Dose: 30 mg Documented by: Duloxetine HCl (Duloxetine Hcl 60 Mg Cap) 60 mg PO DAILY RENU Stop: 07/08/21 08:59 Last Admin: 06/10/21 10:26 Dose: 60 mg Documented by: Enoxaparin Sodium (Enoxaparin Inj 60 Mg/0.6 Ml Syr) 60 mg SQ Q12H RENU Stop: 07/07/21 17:59 Last Admin: 06/10/21 06:18 Dose: 60 mg Documented by: Famotidine (Famotidine 20 Mg Tab) 20 mg PO BID RENU Stop: 07/07/21 20:59 Last Admin: 06/10/21 10:27 Dose: 20 mg Documented by: Gabapentin (Gabapentin 800 Mg Tab) 800 mg PO TID RENU Stop: 07/07/21 20:59 Last Admin: 06/10/21 12:58 Dose: 800 mg Documented by: Haloperidol (Haloperidol 5 Mg Tab) 5 mg PO HS RENU Stop: 07/10/21 21:59 Haloperidol (Haloperidol 0.5 Mg Tab) 2.5 mg PO DAILY RENU Stop: 07/11/21 08:59 Hydroxyzine HCl (Hydroxyzine Hcl 25 Mg Tab) 50 mg PO TID PRN PRN Reason: Anxiety Stop: 07/07/21 14:02 Magnesium Hydroxide (Magnesium Hydroxide Susp 30 Ml Udc) 30 ml PO DAILY PRN PRN Reason: Constipation Stop: 07/07/21 13:58 Mirtazapine (Mirtazapine Tab 15 Mg Tab) 30 mg PO HS RENU Stop: 07/08/21 21:59 Last Admin: 06/09/21 20:45 Dose: 30 mg Documented by: Propranolol HCl (Propranolol Hcl 20 Mg Tab) 40 mg PO BID RENU Stop: 07/07/21 20:59 Last Admin: 06/10/21 10:36 Dose: 40 mg Documented by: Risperidone (Risperidone 0.5 Mg Tablet) 0.5 mg PO HS RENU Stop: 07/10/21 21:59 Risperidone (Risperidone 0.5 Mg Tablet) 0.25 mg PO QAM RENU Stop: 07/11/21 08:59 Sodium Chloride (Sodium Chloride 0.65% Na Soln 45 Ml ([place])) 1 - 2 sprays NA PRN PRN PRN Reason: Nasal Dryness/Congestion Stop: 07/07/21 13:58 Tramadol HCl (Tramadol Hcl 50 Mg Tablet) 50 mg PO Q6H PRN PRN Reason: pain Stop: 07/07/21 14:02 Last Admin: 06/10/21 15:29 Dose: 50 mg Documented by: Mental Health & Subst Abuse Tx Psychiatrist Name of Psychiatrist: Bruna Renae Psychiatrist's Date of Appointment with Psychiatrist: 06/30/21 Time of Appointment with Psychiatrist: 2 p.m. Psychiatric Appointment Comment: telehealth Therapist Name of Therapist: [facility] Therapist's Therapy Appointment Comment: [phone] [facility] [address] Receivables Specialist Name of Receivables Specialist: . Post Discharge Appointments Primary Care Physician Name Of Family Doctor: Guido Bergman Primary Care Provider Appointment Comment: [address] [facility] [place] [address] Contact Information Discharge Discharge Address: [facility] [address] [place], [place] [address]
[2021-06-10] MEDS: hydrOXYzine HCl 25 MG TAB PO PRN (18:49)
[2021-06-10] MEDS: MIRTAZAPINE TAB 15 MG TAB PO SCH (21:10)
[2021-06-10] MEDS ORDERED: haloperidoL 5 MG TAB PO SCH (22:00)
[2021-06-10] MEDS ORDERED: risperiDONE 0.5 MG TABLET PO SCH (22:00)
[2021-06-11] MEDS: ACETAMINOPHEN 500 MG TAB PO PRN ×2 (01:54→18:05)
[2021-06-11] MEDS: ENOXAPARIN INJ 60 MG/0.6 ML SYR SQ SCH ×2 (06:10→16:31)
[2021-06-11 08:40] LABS: Hematocrit (blood only) 41.4 % (37-47); Hemoglobin 14.4 g/dL (12.0-16.0); Mean Corpuscular Hemoglobin 30.3 pg (25-34); Mean Corpuscular Hgb Conc 34.8 g/dL (32-36); Mean Corpuscular Volume 87.2 fL (80-100); Mean Platelet Volume 8.4 fL (7.4-10.4); Platelet Count 650 K/uL (130-400); RDW Coefficient of Variation 13.7 % (11.5-14.5); Red Blood Count 4.75 M/uL (4.2-5.4); White Blood Count 7.81 K/uL (4.8-10.8)
[2021-06-11] MEDS: BENZTROPINE MESYLATE 1 MG TAB PO SCH ×2 (08:45→20:50)
[2021-06-11] MEDS: DULoxetine HCL 60 MG CAP PO SCH (08:45)
[2021-06-11] MEDS: DULoxetine HCL 30 MG CAP PO SCH (08:45)
[2021-06-11] MEDS: GABAPENTIN 800 MG TAB PO SCH ×3 (08:46→20:51)
[2021-06-11] MEDS: FAMOTIDINE 20 MG TAB PO SCH ×2 (08:46→20:51)
[2021-06-11] MEDS: PROPRANOLOL HCL 20 MG TAB PO SCH ×2 (08:49→20:52)
[2021-06-11 08:57] LABS: Creatinine Clr Calc Pharmacy 109.7 ml/min; Est GFR (African American) 117.7 ml/min; Est GFR (Non-African American) 101.6 ml/min
[2021-06-11] MEDS ORDERED: haloperidoL 5 MG TAB PO SCH (09:00)
[2021-06-11] MEDS ORDERED: risperiDONE 0.5 MG TABLET PO SCH (09:00)
--- NOTE | 2021-06-11 13:02 | Psychiatric Progress Note ---
Date of Service June 11, 2021 Impression / Recommendations Impression 20 yo woman with history of brock brock disease, mesenteric adenitis, pain and possible schizoaffective vs BPAD vs depression who was admitted for cAH with worsening depression and SI. 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 She remains at high acute risk given ongoing cAH telling her to harm herself. She would like to discontinue remeron and consented to reducing the dose today and then discontinuing after tomorrow night. Continuing with cross-taper. Discussed strategies to help distract from cAH and ways to cope with urges for self-harm. Evenings remain much more challenging for her. -Voluntary -MNPR due to intensity of psychotic symptoms in the evenings and need for reduced stimulation (1) Major depression: (2) Generalized abdominal pain: (3) Mesenteric adenitis: (4) Thrombocytosis: (5) Asplenia: (6) Brock brock disease: 06/11/21: Some improvement in intensity of cAH today but continues to struggle in the evenings with increased thoughts of SI and self-harm urges. Tolerating cross-taper well will continue with haldol reduction from 5mg to 2.5mg at qhs and discontinuation of qAM dose and increase of risperidone from 0.5 to 1 mg at qhs and from 0.25 to 0.5 at qAM. Will taper remeron per her request from 30mg qhs to 15 mg qhs with plan for discontinuation after that. 06/10/21: Start cross-taper from haldol to risperidone. Decrease haldol from 5mg qAm to 2.5 and evening dose from 10 mg to 5 mg qhs. Will start risperidone 0.25 qAM & 0.5 qHS. Continue remeron, cymbalta and gabapentin. Goal to taper cogentin to discontinuation once cross-taper is complete. 06/09/21: Remeron just increased last pm. I'm hesitant to increase haldol as rhoades seem mood driven and it is not clear to me that she has been tried on atypcials other than Invega or Seroquel. Consider Abilify or Latuda trial. 06/08/21: The patient was admitted to the [facility] ([facility] inpatient mental health unit) on q15 min checks (behavioral with suicide precautions) for safety. The patient will participate in group, recreational, and milieu therapies and will be offered additional individual and family sessions as clinically appropriate. MNPR given multiple medical issues/risk of peers to patient if unpredictable/aggressive behavior and during COVID. Continue current medications pending records, patient may benefit from increase in hs Remeron. Likely some anxiety component to rhoades as resolved upon admission. Unlikely to taper Cymbalta as may be helping recurrent pain syndromes. Consider medical consult (currently nothing acute as pain is typical and offering prns). Inventory Assets Strengths: working, supportive , wants to resume therapy Needs: therapist, coordination with medical Risk Factors Assessment Male: No : Yes Do You Have Access To A Gun?: No Health Problems: Yes Mental Health Diagnoses: Yes Substance Use Disorders: No Previous Attempt: Yes Family History of Suicide: No Previous Psychiatric Hospitalization: Yes Protective Factors Assessment : Yes Responsible for Young Children: No Employed: Yes ([employer]) Interval History Identifying Information MAKENZIE COSTA is a 20-year-old F with a history of depression with SI and a prior suicide attempt, who was admitted on 06/07/21 14:00 on a 201 voluntary commitment for cAH telling her to hurt herself and SI with plan. Chief Complaint "I'm feeling a little more like myself". Review of Systems Sleep Information Total Hours of Sleep: 6.25 Sleep Comments: pt on q-15 minute checks Meal Information Percent Meal Consumed - Breakfast: 100 Percent Meal Consumed - Lunch: 100 Percent Meal Consumed - Dinner: 100 Subjective Subjective Chart and events of last 24 hours reviewed and discussed with multidisciplinary treatment team including nursing and social work. Had increasing SI last night and required some 1:1 support before improving and being able to sleep. Slept well after that. Eating well. Adherent with medications. Today she reports stable mood with some lessening in the intensity of cAH but they are still telling her to hurt herself. She had a family meeting and her brought up a concern for purging at times. Makenzie reports this occurs about once per month when she intentionally throws up due to feeling strong emotions. Discussed alternative strategies she can use when she experiences this urge including talking to her and going for a walk which she agreed to try. she denies any purging since being admitted. She hasn't noticed any side effects from the risperidone. Her raised concern for morning grogginess which they both attribute to the mirtazapine and she worries about driving in the mornings to pick him up from work while groggy. Spent more than 20 minutes in the care and coordination of this patient of which greater than 50% was dedicated to counseling and coordination of care. Physical Exam Psychiatric Orientation: alert and oriented x 3 Apperance: appropriately dressed and appropriately groomed Eye Contact: + fair eye contact Motor Behavior: no abnormal motor movements Speech: normal rate/rhythm/volume of speech Affect: + flat affect Mood: + depressed mood Thought Process: goal directed thought process and + concrete thought process Thought Content: reality based without delusions Suicidal Thoughts: denies suicidal thoughts Homicidal Thoughts: denies homicidal thoughts Hallucinations: + auditory hallucinations (cAH instructing her to harm herself, less loud today) and + visual hallucinations Cognition: recent memory grossly intact, remote memory grossly intact, attention grossly intact and language grossly intact Estimated Intelligence: + below average estimated intelligence Insight: + fair insight Judgement: + fair judgement Vital Signs (Past 24 Hours) Last Vital Signs Temp 36.9 C 06/11/21 06:00 Pulse 70 06/11/21 06:28 Resp 14 06/11/21 06:00 BP 90/62 L 06/11/21 06:28 Pulse Ox 97 06/07/21 06:35 Results & Data ([facility]) Laboratory Results Laboratory Results - last 24 hr 06/11/21 06/11/21 08:29 08:29 WBC 7.81 RBC 4.75 Hgb 14.4 Hct 41.4 MCV 87.2 MCH 30.3 MCHC 34.8 RDW Std Deviation 44.0 RDW Coeff of Toni 13.7 Plt Count 650 H MPV 8.4 Creatinine 0.82 Est Cr Clr Drug Dosing 109.7 Est GFR ( Amer) 117.7 Est GFR (Non-Af Amer) 101.6 Current Inpatient Medications Current Inpatient Medications: Current Inpatient Medications Acetaminophen (Acetaminophen 500 Mg Tab) 1,000 mg PO Q6H PRN PRN Reason: Pain Stop: 07/07/21 16:27 Last Admin: 06/11/21 01:54 Dose: 1,000 mg Documented by: Al Hydrox/Mg Hydrox/Simethicone (Aluminum/Magnesium Susp 30 Ml Udc) 30 ml PO Q4H PRN PRN Reason: GI Upset Stop: 07/07/21 13:58 Benztropine Mesylate (Benztropine Mesylate 1 Mg Tab) 2 mg PO BID RENU Stop: 07/07/21 20:59 Last Admin: 06/11/21 08:45 Dose: 2 mg Documented by: Bismuth Subsalicylate (Bismuth Subsalicylate Liqd 236 Ml) 15 ml PO PRN PRN PRN Reason: Loose Stool Stop: 07/07/21 13:58 Duloxetine HCl (Duloxetine Hcl 30 Mg Cap) 30 mg PO DAILY RENU Stop: 07/08/21 08:59 Last Admin: 06/11/21 08:45 Dose: 30 mg Documented by: Duloxetine HCl (Duloxetine Hcl 60 Mg Cap) 60 mg PO DAILY RENU Stop: 07/08/21 08:59 Last Admin: 06/11/21 08:45 Dose: 60 mg Documented by: Enoxaparin Sodium (Enoxaparin Inj 60 Mg/0.6 Ml Syr) 60 mg SQ Q12H RENU Stop: 07/07/21 17:59 Last Admin: 06/11/21 06:10 Dose: 60 mg Documented by: Famotidine (Famotidine 20 Mg Tab) 20 mg PO BID RENU Stop: 07/07/21 20:59 Last Admin: 06/11/21 08:46 Dose: 20 mg Documented by: Gabapentin (Gabapentin 800 Mg Tab) 800 mg PO TID RENU Stop: 07/07/21 20:59 Last Admin: 06/11/21 08:46 Dose: 800 mg Documented by: Haloperidol (Haloperidol 0.5 Mg Tab) 2.5 mg PO HS RENU Stop: 07/11/21 21:59 Hydroxyzine HCl (Hydroxyzine Hcl 25 Mg Tab) 50 mg PO TID PRN PRN Reason: Anxiety Stop: 07/07/21 14:02 Last Admin: 06/10/21 18:49 Dose: 50 mg Documented by: Magnesium Hydroxide (Magnesium Hydroxide Susp 30 Ml Udc) 30 ml PO DAILY PRN PRN Reason: Constipation Stop: 07/07/21 13:58 Mirtazapine (Mirtazapine Tab 15 Mg Tab) 15 mg PO HS RENU Stop: 07/11/21 21:59 Propranolol HCl (Propranolol Hcl 20 Mg Tab) 40 mg PO BID RENU Stop: 07/07/21 20:59 Last Admin: 06/11/21 08:49 Dose: Not Given Documented by: Risperidone (Risperidone 1 Mg Tablet) 1 mg PO HS RENU Stop: 07/11/21 21:59 Risperidone (Risperidone 0.5 Mg Tablet) 0.5 mg PO QAM RENU Stop: 07/12/21 08:59 Sodium Chloride (Sodium Chloride 0.65% Na Soln 45 Ml ([place])) 1 - 2 sprays NA PRN PRN PRN Reason: Nasal Dryness/Congestion Stop: 07/07/21 13:58 Tramadol HCl (Tramadol Hcl 50 Mg Tablet) 50 mg PO Q6H PRN PRN Reason: pain Stop: 07/07/21 14:02 Last Admin: 06/10/21 15:29 Dose: 50 mg Documented by: Mental Health & Subst Abuse Tx Psychiatrist Name of Psychiatrist: Bruna Renae Psychiatrist's Date of Appointment with Psychiatrist: 06/30/21 Time of Appointment with Psychiatrist: 2 p.m. Psychiatric Appointment Comment: telehealth Therapist Name of Therapist: [facility] Therapist's Therapy Appointment Comment: [phone] [place] [address] In Flight Refueling Manager Name of In Flight Refueling Manager: . Post Discharge Appointments Primary Care Physician Name Of Family Doctor: Guido Bergman Primary Care Provider Appointment Comment: [address] [place] [address] Contact Information Discharge Discharge Address: [address] [place] [address] [place] [address]
[2021-06-11] MEDS: risperiDONE 1 MG TABLET PO SCH (20:52)
[2021-06-11] MEDS ORDERED: haloperidoL 0.5 MG TAB PO SCH (22:00)
[2021-06-11] MEDS ORDERED: MIRTAZAPINE TAB 15 MG TAB PO SCH (22:00)
[2021-06-12] MEDS: ACETAMINOPHEN 500 MG TAB PO PRN ×3 (03:05→18:09)
[2021-06-12] MEDS: ENOXAPARIN INJ 60 MG/0.6 ML SYR SQ SCH ×2 (06:14→17:15)
[2021-06-12] MEDS ORDERED: risperiDONE 0.5 MG TABLET PO SCH (09:00)
[2021-06-12] MEDS: BENZTROPINE MESYLATE 1 MG TAB PO SCH ×2 (09:06→20:10)
[2021-06-12] MEDS: DULoxetine HCL 30 MG CAP PO SCH (09:07)
[2021-06-12] MEDS: DULoxetine HCL 60 MG CAP PO SCH (09:07)
[2021-06-12] MEDS: FAMOTIDINE 20 MG TAB PO SCH ×2 (09:07→20:10)
[2021-06-12] MEDS: PROPRANOLOL HCL 20 MG TAB PO SCH ×2 (09:07→20:12)
[2021-06-12] MEDS: GABAPENTIN 800 MG TAB PO SCH ×3 (09:07→20:11)
--- NOTE | 2021-06-12 16:10 | Psychiatric Progress Note ---
Date of Service June 12, 2021 Impression / Recommendations Impression 20 yo woman with history of brock brock disease, mesenteric adenitis, pain and possible schizoaffective vs BPAD vs depression with psychotic features who was admitted for cAH with worsening depression and SI. 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 She remains at high acute risk given ongoing cAH telling her to harm herself. Showing some ongoing slow improvements as she's better able to distract from and not listen to the voices. Per record review from outpatient psychiatry appointments and past hospitalization the voices have been present since 10th grade. Differential diagnoses from these providers have included MDD with psychotic features, BPAD, schizoaffective disorder, and BPD. -Voluntary -MNPR due to intensity of psychotic symptoms in the evenings and need for reduced stimulation and comorbid medical condition (1) Major depression: (2) Generalized abdominal pain: (3) Mesenteric adenitis: (4) Thrombocytosis: (5) Asplenia: (6) Brock brock disease: 06/12/21: Will continue with cross-taper with discontinuation of haldol at qhs and will move risperidone dose from 0.5 mg qam to qafternoon (cAH are loudest then) and continue with risperidone 1 mg at qhs. Will discontinue mirtazapine. Patient consents to this plan. 06/11/21: Some improvement in intensity of cAH today but continues to struggle in the evenings with increased thoughts of SI and self-harm urges. Tolerating cross-taper well will continue with haldol reduction from 5mg to 2.5mg at qhs and discontinuation of qAM dose and increase of risperidone from 0.5 to 1 mg at qhs and from 0.25 to 0.5 at qAM. Will taper remeron per her request from 30mg qhs to 15 mg qhs with plan for discontinuation after that. 06/10/21: Start cross-taper from haldol to risperidone. Decrease haldol from 5mg qAm to 2.5 and evening dose from 10 mg to 5 mg qhs. Will start risperidone 0.25 qAM & 0.5 qHS. Continue remeron, cymbalta and gabapentin. Goal to taper cogentin to discontinuation once cross-taper is complete. 06/09/21: Remeron just increased last pm. I'm hesitant to increase haldol as rhoades seem mood driven and it is not clear to me that she has been tried on atypcials other than Invega or Seroquel. Consider Abilify or Latuda trial. 06/08/21: The patient was admitted to the [facility] ([facility]) on q15 min checks (behavioral with suicide precautions) for safety. The patient will participate in group, recreational, and milieu therapies and will be offered additional individual and family sessions as clinically appropriate. MNPR given multiple medical issues/risk of peers to patient if unpredictable/aggressive behavior and during COVID. Continue current medications pending records, patient may benefit from increase in hs Remeron. Likely some anxiety component to rhoades as resolved upon admission. Unlikely to taper Cymbalta as may be helping recurrent pain syndromes. Consider medical consult (currently nothing acute as pain is typical and offering prns). Inventory Assets Strengths: working, supportive , wants to resume therapy Needs: therapist, coordination with medical Risk Factors Assessment Male: No : Yes Do You Have Access To A Gun?: No Health Problems: Yes Mental Health Diagnoses: Yes Substance Use Disorders: No Previous Attempt: Yes Family History of Suicide: No Previous Psychiatric Hospitalization: Yes Protective Factors Assessment : Yes Responsible for Young Children: No Employed: Yes ([employer]) Interval History Identifying Information MAKENZIE COSTA is a 20-year-old F with a history of depression with SI and a prior suicide attempt, who was admitted on 06/07/21 14:00 on a 201 voluntary commitment for [facility] telling her to hurt herself and SI with plan. Chief Complaint "I'm good". Review of Systems Sleep Information Total Hours of Sleep: 7.5 Sleep Comments: pt on q-15 minute checks Meal Information Percent Meal Consumed - Breakfast: 100 Percent Meal Consumed - Lunch: 100 Percent Meal Consumed - Dinner: 100 Subjective Subjective Chart and events of last 24 hours reviewed and discussed with multidisciplinary treatment team including nursing and social work. No acute events reported overnight. Slept well. Eating well. Attending a few groups. Adherent with medications. Makenzie reports some improvement in mood today though she continues to find afternoons and evenings the most difficult, often with worsening of cAH and emergence of SI. Currently she feels the voices are less intense and while she continues to have cAH telling her to harm herself they are quieter and manageable. She denies any medication side effects. Spent more than 20 minutes in the care and coordination of this patient of which greater than 50% was dedicated to counseling and coordination of care. Physical Exam Psychiatric Orientation: alert and oriented x 3 Apperance: appropriately dressed and appropriately groomed Eye Contact: + fair eye contact Motor Behavior: no abnormal motor movements Speech: normal rate/rhythm/volume of speech Affect: + flat affect Mood: + depressed mood Thought Process: + concrete thought process Thought Content: reality based without delusions Suicidal Thoughts: denies suicidal thoughts Homicidal Thoughts: denies homicidal thoughts Hallucinations: + auditory hallucinations (cAH instructing her to harm herself, less loud today) Cognition: recent memory grossly intact, remote memory grossly intact, attention grossly intact and language grossly intact Estimated Intelligence: + below average estimated intelligence Insight: + fair insight Judgement: + fair judgement Vital Signs (Past 24 Hours) Last Vital Signs Temp 36.6 C 06/12/21 06:36 Pulse 94 H 06/12/21 06:37 Resp 16 06/12/21 06:36 BP 106/74 06/12/21 06:37 Pulse Ox 97 06/07/21 06:35 Results & Data ([facility]) Laboratory Results Laboratory Results - last 24 hr 06/12/21 Unknown SARS-CoV-2 RNA (NAOMY) Pending Current Inpatient Medications Current Inpatient Medications: Current Inpatient Medications Acetaminophen (Acetaminophen 500 Mg Tab) 1,000 mg PO Q6H PRN PRN Reason: Pain Stop: 07/07/21 16:27 Last Admin: 06/12/21 11:17 Dose: 1,000 mg Documented by: Al Hydrox/Mg Hydrox/Simethicone (Aluminum/Magnesium Susp 30 Ml Udc) 30 ml PO Q4H PRN PRN Reason: GI Upset Stop: 07/07/21 13:58 Benztropine Mesylate (Benztropine Mesylate 1 Mg Tab) 2 mg PO BID RENU Stop: 07/07/21 20:59 Last Admin: 06/12/21 09:06 Dose: 2 mg Documented by: Bismuth Subsalicylate (Bismuth Subsalicylate Liqd 236 Ml) 15 ml PO PRN PRN PRN Reason: Loose Stool Stop: 07/07/21 13:58 Duloxetine HCl (Duloxetine Hcl 30 Mg Cap) 30 mg PO DAILY RENU Stop: 07/08/21 08:59 Last Admin: 06/12/21 09:07 Dose: 30 mg Documented by: Duloxetine HCl (Duloxetine Hcl 60 Mg Cap) 60 mg PO DAILY RENU Stop: 07/08/21 08:59 Last Admin: 06/12/21 09:07 Dose: 60 mg Documented by: Enoxaparin Sodium (Enoxaparin Inj 60 Mg/0.6 Ml Syr) 60 mg SQ Q12H RENU Stop: 07/07/21 17:59 Last Admin: 06/12/21 06:14 Dose: 60 mg Documented by: Famotidine (Famotidine 20 Mg Tab) 20 mg PO BID RENU Stop: 07/07/21 20:59 Last Admin: 06/12/21 09:07 Dose: 20 mg Documented by: Gabapentin (Gabapentin 800 Mg Tab) 800 mg PO TID RENU Stop: 07/07/21 20:59 Last Admin: 06/12/21 14:20 Dose: 800 mg Documented by: Haloperidol (Haloperidol 0.5 Mg Tab) 2.5 mg PO HS RENU Stop: 07/11/21 21:59 Last Admin: 06/11/21 20:51 Dose: 2.5 mg Documented by: Hydroxyzine HCl (Hydroxyzine Hcl 25 Mg Tab) 50 mg PO TID PRN PRN Reason: Anxiety Stop: 07/07/21 14:02 Last Admin: 06/10/21 18:49 Dose: 50 mg Documented by: Magnesium Hydroxide (Magnesium Hydroxide Susp 30 Ml Udc) 30 ml PO DAILY PRN PRN Reason: Constipation Stop: 07/07/21 13:58 Mirtazapine (Mirtazapine Tab 15 Mg Tab) 15 mg PO HS RENU Stop: 07/11/21 21:59 Last Admin: 06/11/21 20:51 Dose: 15 mg Documented by: Propranolol HCl (Propranolol Hcl 20 Mg Tab) 40 mg PO BID RENU Stop: 07/07/21 20:59 Last Admin: 06/12/21 09:07 Dose: 40 mg Documented by: Risperidone (Risperidone 1 Mg Tablet) 1 mg PO HS RENU Stop: 07/11/21 21:59 Last Admin: 06/11/21 20:52 Dose: 1 mg Documented by: Risperidone (Risperidone 0.5 Mg Tablet) 0.5 mg PO QAM RENU Stop: 07/12/21 08:59 Last Admin: 06/12/21 09:07 Dose: 0.5 mg Documented by: Sodium Chloride (Sodium Chloride 0.65% Na Soln 45 Ml ([place])) 1 - 2 sprays NA PRN PRN PRN Reason: Nasal Dryness/Congestion Stop: 07/07/21 13:58 Tramadol HCl (Tramadol Hcl 50 Mg Tablet) 50 mg PO Q6H PRN PRN Reason: pain Stop: 07/07/21 14:02 Last Admin: 06/10/21 15:29 Dose: 50 mg Documented by: Mental Health & Subst Abuse Tx Psychiatrist Name of Psychiatrist: Bruna Renae Psychiatrist's Date of Appointment with Psychiatrist: 06/30/21 Time of Appointment with Psychiatrist: 2 p.m. Psychiatric Appointment Comment: telehealth Therapist Name of Therapist: [facility] Therapist's Therapy Appointment Comment: [id number] [place] [address] - they will call to do intake Air Conditioning Engineer Name of Air Conditioning Engineer: . Post Discharge Appointments Primary Care Physician Name Of Family Doctor: Bubba [facility] Date of Appointment with PCP: 06/19/21 Time of Appointment with PCP: 11:00 a.m. Provider Appointment Comment: [address] [place] [address] Contact Information Discharge Discharge Address: [facility] [place] [address]
[2021-06-12] MEDS: risperiDONE 0.5 MG TABLET PO SCH (17:14)
[2021-06-12] MEDS: risperiDONE 1 MG TABLET PO SCH (20:12)
[2021-06-12] MEDS: hydrOXYzine HCl 25 MG TAB PO PRN (21:53)
[2021-06-13] MEDS: ENOXAPARIN INJ 60 MG/0.6 ML SYR SQ SCH ×2 (06:17→16:59)
[2021-06-13] MEDS: DULoxetine HCL 60 MG CAP PO SCH (08:36)
[2021-06-13] MEDS: DULoxetine HCL 30 MG CAP PO SCH (08:36)
[2021-06-13] MEDS: BENZTROPINE MESYLATE 1 MG TAB PO SCH ×2 (08:36→20:12)
[2021-06-13] MEDS: PROPRANOLOL HCL 20 MG TAB PO SCH ×2 (08:37→20:13)
[2021-06-13] MEDS: GABAPENTIN 800 MG TAB PO SCH ×3 (08:37→20:13)
[2021-06-13] MEDS: FAMOTIDINE 20 MG TAB PO SCH ×2 (08:37→20:13)
--- NOTE | 2021-06-13 16:14 | Psychiatric Progress Note ---
Date of Service June 13, 2021 Impression / Recommendations Impression 20 yo woman with history of brock brock disease, mesenteric adenitis, pain and possible schizoaffective vs BPAD vs depression with psychotic features who was admitted for cAH with worsening depression and SI. 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 She remains at high acute risk given ongoing cAH telling her to harm herself. Showing ongoing slow improvements as she's better able to distract from and not listen to the voices and feels that frequency of SI has lessened-only passive SI last night that went away quickly. -Voluntary -MNPR due to intensity of psychotic symptoms in the evenings and need for reduced stimulation and comorbid medical condition (1) Major depression: (2) Generalized abdominal pain: (3) Mesenteric adenitis: (4) Thrombocytosis: (5) Asplenia: (6) Brock brock disease: 06/13/21: She tolerated the cross-taper well without side effects and reduction in intensity of the cAH. Continue with current regimen. Discussed option to use atarax for anxiety. If chest pain persists or worsens we will get an EKG to assess for QTc but vital signs, medical workup, and ROS all reassuring that somatic symptom from anxiety. She was able to discuss reading and her love for this with brighter affect and more linear thought process-most give and take spontaneous conversation since her admission signaling good progress. 06/12/21: Will continue with cross-taper with discontinuation of haldol at qhs and will move risperidone dose from 0.5 mg qam to qafternoon (cAH are loudest then) and continue with risperidone 1 mg at qhs. Will discontinue mirtazapine. Patient consents to this plan. 06/11/21: Some improvement in intensity of cAH today but continues to struggle in the evenings with increased thoughts of SI and self-harm urges. Tolerating cross-taper well will continue with haldol reduction from 5mg to 2.5mg at qhs and discontinuation of qAM dose and increase of risperidone from 0.5 to 1 mg at qhs and from 0.25 to 0.5 at qAM. Will taper remeron per her request from 30mg qhs to 15 mg qhs with plan for discontinuation after that. 06/10/21: Start cross-taper from haldol to risperidone. Decrease haldol from 5mg qAm to 2.5 and evening dose from 10 mg to 5 mg qhs. Will start risperidone 0.25 qAM & 0.5 qHS. Continue remeron, cymbalta and gabapentin. Goal to taper cogentin to discontinuation once cross-taper is complete. 06/09/21: Remeron just increased last pm. I'm hesitant to increase haldol as rhoades seem mood driven and it is not clear to me that she has been tried on atypcials other than Invega or Seroquel. Consider Abilify or Latuda trial. 06/08/21: The patient was admitted to the [facility] ([facility] mental health unit) on q15 min checks (behavioral with suicide precautions) for safety. The patient will participate in group, recreational, and milieu therapies and will be offered additional individual and family sessions as clinically appropriate. MNPR given multiple medical issues/risk of peers to patient if unpredictable/aggressive behavior and during COVID. Continue current medications pending records, patient may benefit from increase in hs Remeron. Likely some anxiety component to rhoades as resolved upon admission. Unlikely to taper Cymbalta as may be helping recurrent pain syndromes. Consider medical consult (currently nothing acute as pain is typical and offering prns). Inventory Assets Strengths: working, supportive , wants to resume therapy Needs: therapist, coordination with medical Risk Factors Assessment Male: No : Yes Do You Have Access To A Gun?: No Health Problems: Yes Mental Health Diagnoses: Yes Substance Use Disorders: No Previous Attempt: Yes Family History of Suicide: No Previous Psychiatric Hospitalization: Yes Protective Factors Assessment : Yes Responsible for Young Children: No Employed: Yes ([employer]) Interval History Identifying Information MAKENZIE COSTA is a 20-year-old F with a history of depression with SI and a prior suicide attempt, who was admitted on 06/07/21 14:00 on a 201 voluntary commitment for [facility] telling her to hurt herself and SI with plan. Chief Complaint "I love reading". Review of Systems Sleep Information Total Hours of Sleep: 5.5 Sleep Comments: pt on q-15 minute checks Meal Information Percent Meal Consumed - Breakfast: 100 Percent Meal Consumed - Lunch: 100 Percent Meal Consumed - Dinner: 100 Subjective Subjective Chart and events of last 24 hours reviewed and discussed with multidisciplinary treatment team including nursing and social work. Isolative yesterday, had some passive SI last night. Slept well. Eating well. Adherent with medications. Today she is lying in bed reading. Her affect is slightly more expressive and she notes her mood is "better". She attributes this to the change from haldol to risperidone and that it's easier to distract herself from the voices. She had SI last night but found she could get the thought out of her mind quickly. She hasn't noticed any side effects from the medications. Continues to experience anxiety which she notices as somatic symptoms of chest tightness, and worries. She denies any palpitations, SOB, heart racing, dizziness, arm pain, jaw pain, diaphoresis, nausea or other symptoms. Spent more than 20 minutes in the care and coordination of this patient of which greater than 50% was dedicated to counseling and coordination of care. Physical Exam Psychiatric Orientation: alert and oriented x 3 Apperance: appropriately dressed and appropriately groomed Eye Contact: good eye contact Motor Behavior: no abnormal motor movements Speech: normal rate/rhythm/volume of speech Affect: + blunted affect Mood: + depressed mood Thought Process: linear/logical thought process Suicidal Thoughts: denies suicidal intent; + reports suicidal thoughts (passive SI last night) Homicidal Thoughts: denies homicidal thoughts Hallucinations: + auditory hallucinations (cAH instructing her to harm herself, less loud today) Cognition: recent memory grossly intact, remote memory grossly intact, attention grossly intact and language grossly intact Estimated Intelligence: consistent with education level Insight: + fair insight Judgement: + fair judgement Vital Signs (Past 24 Hours) Last Vital Signs Temp 36.8 C 06/13/21 06:32 Pulse 80 06/13/21 06:32 Resp 16 06/13/21 06:32 BP 104/70 06/13/21 06:32 Pulse Ox 97 06/07/21 06:35 Results & Data ([facility]) Laboratory Results Laboratory Results - last 24 hr 06/12/21 Unknown SARS-CoV-2 RNA (NAOMY) Negative Current Inpatient Medications Current Inpatient Medications: Current Inpatient Medications Acetaminophen (Acetaminophen 500 Mg Tab) 1,000 mg PO Q6H PRN PRN Reason: Pain Stop: 07/07/21 16:27 Last Admin: 06/12/21 18:09 Dose: 1,000 mg Documented by: Al Hydrox/Mg Hydrox/Simethicone (Aluminum/Magnesium Susp 30 Ml Udc) 30 ml PO Q4H PRN PRN Reason: GI Upset Stop: 07/07/21 13:58 Benztropine Mesylate (Benztropine Mesylate 1 Mg Tab) 2 mg PO BID RENU Stop: 07/07/21 20:59 Last Admin: 06/13/21 08:36 Dose: 2 mg Documented by: Bismuth Subsalicylate (Bismuth Subsalicylate Liqd 236 Ml) 15 ml PO PRN PRN PRN Reason: Loose Stool Stop: 07/07/21 13:58 Duloxetine HCl (Duloxetine Hcl 30 Mg Cap) 30 mg PO DAILY [facility] Stop: 07/08/21 08:59 Last Admin: 06/13/21 08:36 Dose: 30 mg Documented by: Duloxetine HCl (Duloxetine Hcl 60 Mg Cap) 60 mg PO DAILY [facility] Stop: 07/08/21 08:59 Last Admin: 06/13/21 08:36 Dose: 60 mg Documented by: Enoxaparin Sodium (Enoxaparin Inj 60 Mg/0.6 Ml Syr) 60 mg SQ Q12H [facility] Stop: 07/07/21 17:59 Last Admin: 06/13/21 06:17 Dose: 60 mg Documented by: Famotidine (Famotidine 20 Mg Tab) 20 mg PO BID RENU Stop: 07/07/21 20:59 Last Admin: 06/13/21 08:37 Dose: 20 mg Documented by: Gabapentin (Gabapentin 800 Mg Tab) 800 mg PO TID RENU Stop: 07/07/21 20:59 Last Admin: 06/13/21 13:09 Dose: 800 mg Documented by: Hydroxyzine HCl (Hydroxyzine Hcl 25 Mg Tab) 50 mg PO TID PRN PRN Reason: Anxiety Stop: 07/07/21 14:02 Last Admin: 06/12/21 21:53 Dose: 50 mg Documented by: Magnesium Hydroxide (Magnesium Hydroxide Susp 30 Ml Udc) 30 ml PO DAILY PRN PRN Reason: Constipation Stop: 07/07/21 13:58 Propranolol HCl (Propranolol Hcl 20 Mg Tab) 40 mg PO BID [facility] Stop: 07/07/21 20:59 Last Admin: 06/13/21 08:37 Dose: 40 mg Documented by: Risperidone (Risperidone 1 Mg Tablet) 1 mg PO HS RENU Stop: 07/11/21 21:59 Last Admin: 06/12/21 20:12 Dose: 1 mg Documented by: Risperidone (Risperidone 0.5 Mg Tablet) 0.5 mg PO DAILYBD RENU Stop: 07/12/21 17:14 Last Admin: 06/12/21 17:14 Dose: 0.5 mg Documented by: Sodium Chloride (Sodium Chloride 0.65% Na Soln 45 Ml ([place])) 1 - 2 sprays NA PRN PRN PRN Reason: Nasal Dryness/Congestion Stop: 07/07/21 13:58 Tramadol HCl (Tramadol Hcl 50 Mg Tablet) 50 mg PO Q6H PRN PRN Reason: pain Stop: 07/07/21 14:02 Last Admin: 06/10/21 15:29 Dose: 50 mg Documented by: Mental Health & Subst Abuse Tx Psychiatrist Name of Psychiatrist: Bruna Renae Psychiatrist's Date of Appointment with Psychiatrist: 06/30/21 Time of Appointment with Psychiatrist: 2 p.m. Psychiatric Appointment Comment: telehealth Therapist Name of Therapist: [facility] Therapist's Therapy Appointment Comment: [phone] [place] [address] - they will call to do intake Horizontal Resaw Operator Name of Horizontal Resaw Operator: . Post Discharge Appointments Primary Care Physician Name Of Family Doctor: Bubba [facility] Date of Appointment with PCP: 06/19/21 Time of Appointment with PCP: 11:00 a.m. Provider Appointment Comment: [address] [place] [address] Contact Information Discharge Discharge Address: [place] [address]
[2021-06-13] MEDS: hydrOXYzine HCl 25 MG TAB PO PRN (16:56)
[2021-06-13] MEDS: risperiDONE 0.5 MG TABLET PO SCH (16:58)
[2021-06-13] MEDS: risperiDONE 1 MG TABLET PO SCH (20:14)
[2021-06-14] MEDS: ENOXAPARIN INJ 60 MG/0.6 ML SYR SQ SCH ×2 (06:23→16:24)
[2021-06-14] MEDS: DULoxetine HCL 30 MG CAP PO SCH (07:54)
[2021-06-14] MEDS: BENZTROPINE MESYLATE 1 MG TAB PO SCH (07:54)
[2021-06-14] MEDS: DULoxetine HCL 60 MG CAP PO SCH (07:54)
[2021-06-14] MEDS: FAMOTIDINE 20 MG TAB PO SCH (07:55)
[2021-06-14] MEDS: GABAPENTIN 800 MG TAB PO SCH ×2 (07:55→13:24)
[2021-06-14] MEDS: PROPRANOLOL HCL 20 MG TAB PO SCH (07:55)
[2021-06-14 08:29] LABS: Hematocrit (blood only) 40.7 % (37-47); Hemoglobin 13.9 g/dL (12.0-16.0); Mean Corpuscular Hgb Conc 34.2 g/dL (32-36); Mean Corpuscular Volume 87.7 fL (80-100); Mean Platelet Volume 8.5 fL (7.4-10.4); Platelet Count 797 K/uL (130-400); RDW Coefficient of Variation 14.1 % (11.5-14.5); RDW Standard Deviation 45.5 fL (36.4-46.3); Red Blood Count 4.64 M/uL (4.2-5.4); White Blood Count 10.75 K/uL (4.8-10.8)
[2021-06-14 09:02] LABS: Creatinine Clr Calc Pharmacy 115.3 ml/min; Est GFR (African American) 125.1 ml/min; Est GFR (Non-African American) 107.9 ml/min
--- NOTE | 2021-06-14 11:13 | Discharge Summary ---
Date of Service June 14, 2021 History of Present Illness Delfina presented to ED yesterday with worsening depression for a few weeks, doesn't feel like meds are helping or "I wouldn't get voices". States when she becomes depressed her voices tell her to cut herself. Her suicide plan would be to "slit" her wrist. 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 She denies ever having hallucinations outside of depression and denies she has been diagnosed with schizoaffective disorder so it will be removed from her problem list. She did not endorse any periods of elevated mood. Her mood symptoms resulted in inpatient care age 18, only diagnosed with brock brock disease about 1 year ago as "I kept passing out". 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 She reports her marriage is strong and views and her sister as supportive, otherwise "family doesn't understand me". Her parents remain in [place] and brother is at [place] and won't respond to texts but he's "always been like that". Physical Exam Vital Signs (Past 24 Hours) Last Vital Signs Temp 36.7 C 06/14/21 06:00 Pulse 81 06/14/21 06:40 Resp 16 06/14/21 06:00 BP 105/73 06/14/21 06:40 Pulse Ox 97 06/07/21 06:35 See admission H&P and DOD summary. Principal Diagnosis Major Depressive Disorder with psychotic features Psychiatric Data See daily stay summary. In short, patient was engaged with the social/therapeutic milieu of the unit, safety was maintained and the patient was cooperative with care. Medication changes included cross-taper from haldol to ri speridone and discontinuation of mirtazapine due to morning sedation and they tolerated this well. Her platelet count was elevated during her stay (ranging 638- 797). She reports these were all within the normal elevated range for her and agreed to discuss this with her PCP at her scheduled follow-up appointment. Baseline labs of fasting glucose, fasting lipid profile were preformed and WNL with exception of slightly elevated glucose and low HDL. Recommend repeat weight in one month. Recommend repeat fasting glucose, HbA1c and fasting lipid profile every 12 weeks and then annually. If symptoms arise recommend checking BP, EKG, prolactin level as clinically indicated or relevant. A family session was held and safety plan was completed prior to discharge. Day of Discharge Assessment Today the patient voices readiness for discharge. She has a bright affect, spontaneous speech, enjoys discussing books she has been reading, future- oriented and states she "feels like myself again". She is no longer having any suicidal thoughts and hasn't had any cAH today. She did a few cAH last night (they have been chronic since 10th grade) but the voices were quiet and she was able to put them out of her mind "immediately". She feels safe and is excited about discharge. She had no further chest pain yesterday overnight, last night or today. She notes improvement in mood and anxiety. They deny thoughts of harm to self or others. Thoughts are organized and they are clinically improved from admission. There is no evidence of psychosis. They improved in the hospital with support and medication adjustments. They agree to take medications as prescribed and keep follow-up appointments. At the time of the discharge they are deemed to be stable and appropriate for outpatient level of care. They are not deemed to be at imminent risk of harm to self or others. They are aware of emergency and crisis services. Knows to call 911 or go to nearest emergency care center if in a crisis which cannot be handled as an outpatient. Transition of Care Transition Of Care Record: was reviewed with the patient Advance Directives Advance Directives Information Provided: Yes Advance Directives: No Mental Health Advance Directive: No Advance Directives on File: No Living Will: No Power of Cigarette Maker: No Advance Directives Reason:: Declines as Mental Health Visit. Risk Factors Assessment Male: No : Yes Do You Have Access To A Gun?: No Health Problems: Yes Mental Health Diagnoses: Yes Substance Use Disorders: No Previous Attempt: Yes Family History of Suicide: No Previous Psychiatric Hospitalization: Yes Hopelessness: No Protective Factors Assessment : Yes Responsible for Young Children: No Employed: Yes ([employer]) Stable Relationships: Yes Supportive Family: Yes Good Rapport with Provider: Yes Discharge Data Lab Results 06/07/21 06/07/21 06/07/21 07:15 07:15 07:29 WBC 8.33 RBC 4.33 Hgb 12.9 Hct 37.2 MCV 85.9 MCH 29.8 MCHC 34.7 RDW Std Deviation 44.3 RDW Coeff of Toni 14.0 Plt Count 638 H MPV 8.3 Immature Gran % (Auto) 0.1 Neut % (Auto) 36.9 Lymph % (Auto) 44.3 [place] % (Auto) 13.0 Eos % (Auto) 5.3 Baso % (Auto) 0.4 Neut # (Auto) 3.08 Lymph # (Auto) 3.69 H [place] # (Auto) 1.08 H Eos # (Auto) 0.44 Baso # (Auto) 0.03 Immature Gran # (Auto) 0.01 PT INR APTT PTT Ratio Sodium Potassium Chloride Carbon Dioxide Anion Gap BUN Creatinine Est Cr Clr Drug Dosing Est GFR ( Amer) Est GFR (Non-Af Amer) BUN/Creatinine Ratio Glucose Estimat Average Glucose Hemoglobin A1c Calcium Total Bilirubin AST ALT Alkaline Phosphatase Total Protein Albumin Globulin Albumin/Globulin Ratio Triglycerides Cholesterol LDL Cholesterol, Calc VLDL Cholesterol, Calc HDL Cholesterol Cholesterol/HDL Ratio TSH Urine Color Urine Appearance Urine pH Ur Specific [place] Urine Protein Urine Glucose (UA) Urine Ketones Urine Blood Urine Nitrite Urine Bilirubin Urine Urobilinogen Ur Leukocyte Esterase POC Ur Test Salicylates Urine Opiates Screen Ur Methadone, Qual Acetaminophen Urine Barbiturates Ur Phencyclidine (PCP) U Amphetamin/Meth Scrn MDMA (Ecstasy) Screen U Benzodiazepines Scrn Ur Cocaine Metabolite U Marijuana (THC) Screen Ethyl Alcohol mg/dL COVID-19 Eval [facility] [place] SARS-CoV-2 RNA (NAOMY) SARS-CoV-2, RNA, NAAT NEGATIVE 06/07/21 06/07/21 06/07/21 07:29 07:29 07:29 WBC RBC Hgb Hct MCV MCH MCHC RDW Std Deviation RDW Coeff of Toni Plt Count MPV Immature Gran % (Auto) Neut % (Auto) Lymph % (Auto) [place] % (Auto) Eos % (Auto) Baso % (Auto) Neut # (Auto) Lymph # (Auto) [place] # (Auto) Eos # (Auto) Baso # (Auto) Immature Gran # (Auto) PT INR APTT PTT Ratio Sodium 137 Potassium 4.2 Chloride 106 Carbon Dioxide 26 Anion Gap 5.0 BUN 8 Creatinine 0.76 Est Cr Clr Drug Dosing 117.9 Est GFR ( Amer) 129.1 Est GFR (Non-Af Amer) 111.3 BUN/Creatinine Ratio 10.3 Glucose 104 H Estimat Average Glucose Hemoglobin A1c Calcium 8.9 Total Bilirubin 0.4 AST 13 L ALT 24 Alkaline Phosphatase 109 Total Protein 6.6 Albumin 3.4 Globulin 3.2 Albumin/Globulin Ratio 1.1 Triglycerides Cholesterol LDL Cholesterol, Calc VLDL Cholesterol, Calc HDL Cholesterol Cholesterol/HDL Ratio TSH 1.800 Urine Color Urine Appearance Urine pH Ur Specific [place] Urine Protein Urine Glucose (UA) Urine Ketones Urine Blood Urine Nitrite Urine Bilirubin Urine Urobilinogen Ur Leukocyte Esterase POC Ur Test Salicylates < 1.7 L Urine Opiates Screen Ur Methadone, Qual Acetaminophen < 2 L Urine Barbiturates Ur Phencyclidine (PCP) U Amphetamin/Meth Scrn MDMA (Ecstasy) Screen U Benzodiazepines Scrn Ur Cocaine Metabolite U Marijuana (THC) Screen Ethyl Alcohol mg/dL < 3.0 COVID-19 Eval Order SARS-CoV-2 RNA (NAOMY) SARS-CoV-2, RNA, NAAT 06/07/21 06/07/21 06/07/21 10:30 10:30 10:30 WBC RBC Hgb Hct MCV MCH MCHC RDW Std Deviation RDW Coeff of Toni Plt Count MPV Immature Gran % (Auto) Neut % (Auto) Lymph % (Auto) [place] % (Auto) Eos % (Auto) Baso % (Auto) Neut # (Auto) Lymph # (Auto) [place] # (Auto) Eos # (Auto) Baso # (Auto) Immature Gran # (Auto) PT INR APTT PTT Ratio Sodium Potassium Chloride Carbon Dioxide Anion Gap BUN Creatinine Est Cr Clr Drug Dosing Est GFR ( Amer) Est GFR (Non-Af Amer) BUN/Creatinine Ratio Glucose Estimat Average Glucose Hemoglobin A1c Calcium Total Bilirubin AST ALT Alkaline Phosphatase Total Protein Albumin Globulin Albumin/Globulin Ratio Triglycerides Cholesterol LDL Cholesterol, Calc VLDL Cholesterol, Calc HDL Cholesterol Cholesterol/HDL Ratio TSH Urine Color Yellow Urine Appearance Clear Urine pH 8.0 H Ur Specific [place] 1.004 Urine Protein Negative Urine Glucose (UA) Negative Urine Ketones Negative Urine Blood Negative Urine Nitrite Negative Urine Bilirubin Negative Urine Urobilinogen Negative Ur Leukocyte Esterase Negative POC Ur Test NEG Salicylates Urine Opiates Screen Neg Ur Methadone, Qual Neg Acetaminophen Urine Barbiturates Neg Ur Phencyclidine (PCP) Neg U Amphetamin/Meth Scrn Neg MDMA (Ecstasy) Screen Neg U Benzodiazepines Scrn Neg Ur Cocaine Metabolite Neg U Marijuana (THC) Screen Neg Ethyl Alcohol mg/dL COVID-19 Eval Order SARS-CoV-2 RNA (NAOMY) SARS-CoV-2, RNA, NAAT 06/07/21 06/08/21 06/08/21 13:49 07:30 07:30 WBC RBC Hgb Hct MCV MCH MCHC RDW Std Deviation RDW Coeff of Toni Plt Count MPV Immature Gran % (Auto) Neut % (Auto) Lymph % (Auto) [place] % (Auto) Eos % (Auto) Baso % (Auto) Neut # (Auto) Lymph # (Auto) [place] # (Auto) Eos # (Auto) Baso # (Auto) Immature Gran # (Auto) PT 10.3 INR 1.0 APTT 23.9 PTT Ratio 0.9 Sodium Potassium Chloride Carbon Dioxide Anion Gap BUN Creatinine Est Cr Clr Drug Dosing Est GFR ( Amer) Est GFR (Non-Af Amer) BUN/Creatinine Ratio Glucose Estimat Average Glucose 103 Hemoglobin A1c 5.2 Calcium Total Bilirubin AST ALT Alkaline Phosphatase Total Protein Albumin Globulin Albumin/Globulin Ratio Triglycerides 141 Cholesterol 169 LDL Cholesterol, Calc 107 VLDL Cholesterol, Calc 28 HDL Cholesterol 34 Cholesterol/HDL Ratio 5 TSH Urine Color Urine Appearance Urine pH Ur Specific [place] Urine Protein Urine Glucose (UA) Urine Ketones Urine Blood Urine Nitrite Urine Bilirubin Urine Urobilinogen Ur Leukocyte Esterase POC Ur Test Salicylates Urine Opiates Screen Ur Methadone, Qual Acetaminophen Urine Barbiturates Ur Phencyclidine (PCP) U Amphetamin/Meth Scrn MDMA (Ecstasy) Screen U Benzodiazepines Scrn Ur Cocaine Metabolite U Marijuana (THC) Screen Ethyl Alcohol mg/dL COVID-19 Eval Order SARS-CoV-2 RNA (NAOMY) SARS-CoV-2, RNA, NAAT 06/11/21 06/11/21 06/12/21 08:29 08:29 Unknown WBC 7.81 RBC 4.75 Hgb 14.4 Hct 41.4 MCV 87.2 MCH 30.3 MCHC 34.8 RDW Std Deviation 44.0 RDW Coeff of Toni 13.7 Plt Count 650 H MPV 8.4 Immature Gran % (Auto) Neut % (Auto) Lymph % (Auto) [place] % (Auto) Eos % (Auto) Baso % (Auto) Neut # (Auto) Lymph # (Auto) [place] # (Auto) Eos # (Auto) Baso # (Auto) Immature Gran # (Auto) PT INR APTT PTT Ratio Sodium Potassium Chloride Carbon Dioxide Anion Gap BUN Creatinine 0.82 Est Cr Clr Drug Dosing 109.7 Est GFR ( Amer) 117.7 Est GFR (Non-Af Amer) 101.6 BUN/Creatinine Ratio Glucose Estimat Average Glucose Hemoglobin A1c Calcium Total Bilirubin AST ALT Alkaline Phosphatase Total Protein Albumin Globulin Albumin/Globulin Ratio Triglycerides Cholesterol LDL Cholesterol, Calc VLDL Cholesterol, Calc HDL Cholesterol Cholesterol/HDL Ratio TSH Urine Color Urine Appearance Urine pH Ur Specific [place] Urine Protein Urine Glucose (UA) Urine Ketones Urine Blood Urine Nitrite Urine Bilirubin Urine Urobilinogen Ur Leukocyte Esterase POC Ur Test Salicylates Urine Opiates Screen Ur Methadone, Qual Acetaminophen Urine Barbiturates Ur Phencyclidine (PCP) U Amphetamin/Meth Scrn MDMA (Ecstasy) Screen U Benzodiazepines Scrn Ur Cocaine Metabolite U Marijuana (THC) Screen Ethyl Alcohol mg/dL COVID-19 Eval Order SARS-CoV-2 RNA (NAOMY) Negative SARS-CoV-2, RNA, NAAT 06/14/21 06/14/21 08:07 08:07 WBC 10.75 RBC 4.64 Hgb 13.9 Hct 40.7 MCV 87.7 MCH 30.0 MCHC 34.2 RDW Std Deviation 45.5 RDW Coeff of Toni 14.1 Plt Count 797 H MPV 8.5 Immature Gran % (Auto) Neut % (Auto) Lymph % (Auto) [place] % (Auto) Eos % (Auto) Baso % (Auto) Neut # (Auto) Lymph # (Auto) [place] # (Auto) Eos # (Auto) Baso # (Auto) Immature Gran # (Auto) PT INR APTT PTT Ratio Sodium Potassium Chloride Carbon Dioxide Anion Gap BUN Creatinine 0.78 Est Cr Clr Drug Dosing 115.3 Est GFR ( Amer) 125.1 Est GFR (Non-Af Amer) 107.9 BUN/Creatinine Ratio Glucose Estimat Average Glucose Hemoglobin A1c Calcium Total Bilirubin AST ALT Alkaline Phosphatase Total Protein Albumin Globulin Albumin/Globulin Ratio Triglycerides Cholesterol LDL Cholesterol, Calc VLDL Cholesterol, Calc HDL Cholesterol Cholesterol/HDL Ratio TSH Urine Color Urine Appearance Urine pH Ur Specific [place] Urine Protein Urine Glucose (UA) Urine Ketones Urine Blood Urine Nitrite Urine Bilirubin Urine Urobilinogen Ur Leukocyte Esterase POC Ur Test Salicylates Urine Opiates Screen Ur Methadone, Qual Acetaminophen Urine Barbiturates Ur Phencyclidine (PCP) U Amphetamin/Meth Scrn MDMA (Ecstasy) Screen U Benzodiazepines Scrn Ur Cocaine Metabolite U Marijuana (THC) Screen Ethyl Alcohol mg/dL COVID-19 Eval Order SARS-CoV-2 RNA (NAOMY) SARS-CoV-2, RNA, NAAT Hospital Course (1) Major depression: (2) Generalized abdominal pain: (3) Mesenteric adenitis: (4) Thrombocytosis: (5) Asplenia: (6) Brock brock disease: 06/13/21: She tolerated the cross-taper well without side effects and reduction in intensity of the cAH. Continue with current regimen. Discussed option to use atarax for anxiety. If chest pain persists or worsens we will get an EKG to assess for QTc but vital signs, medical workup, and ROS all reassuring that somatic symptom from anxiety. She was able to discuss reading and her love for this with brighter affect and more linear thought process-most give and take spontaneous conversation since her admission signaling good progress. 06/12/21: Will continue with cross-taper with discontinuation of haldol at qhs and will move risperidone dose from 0.5 mg qam to qafternoon (cAH are loudest then) and continue with risperidone 1 mg at qhs. Will discontinue mirtazapine. Patient consents to this plan. 06/11/21: Some improvement in intensity of cAH today but continues to struggle in the evenings with increased thoughts of SI and self-harm urges. Tolerating cross-taper well will continue with haldol reduction from 5mg to 2.5mg at qhs and discontinuation of qAM dose and increase of risperidone from 0.5 to 1 mg at qhs and from 0.25 to 0.5 at qAM. Will taper remeron per her request from 30mg qhs to 15 mg qhs with plan for discontinuation after that. 06/10/21: Start cross-taper from haldol to risperidone. Decrease haldol from 5mg qAm to 2.5 and evening dose from 10 mg to 5 mg qhs. Will start risperidone 0.25 qAM & 0.5 qHS. Continue remeron, cymbalta and gabapentin. Goal to taper cogentin to discontinuation once cross-taper is complete. 06/09/21: Remeron just increased last pm. I'm hesitant to increase haldol as gentile seem mood driven and it is not clear to me that she has been tried on atypcials other than Invega or Seroquel. Consider Abilify or Latuda trial. 06/08/21: The patient was admitted to the [facility] ([facility]) on q15 min checks (behavioral with suicide precautions) for safety. The patient will participate in group, recreational, and milieu therapies and will be offered additional individual and family sessions as clinically appropriate. MNPR given multiple medical issues/risk of peers to patient if unpredictable/aggressive behavior and during COVID. Continue current medications pending records, patient may benefit from increase in hs Remeron. Likely some anxiety component to gentile as resolved upon admission. Unlikely to taper Cymbalta as may be helping recurrent pain syndromes. Consider medical consult (currently nothing acute as pain is typical and offering prns). Mental Health & Subst Abuse Tx Psychiatrist Name of Psychiatrist: Bruna Renae Psychiatrist's Date of Appointment with Psychiatrist: 06/30/21 Time of Appointment with Psychiatrist: 2 p.m. Psychiatric Appointment Comment: telehealth Therapist Name of Therapist: [facility] The[facility]'s Therapy Appointment Comment: [address] [facility] [place] [phone] -they will call to do intake Mud Jack Operator Name of Mud Jack Operator: . Post Discharge Appointments Primary Care Physician Name Of Family Doctor: Bubba Bergman Primary Care Date of Appointment with PCP: 06/19/21 Time of Appointment with PCP: 11:00 a.m. Provider Appointment Comment: [address] [place] [address] Contact Information Discharge Discharge [address] [address] [place], [place] [address] [address] Discharge Plan Discharge Items Patient Disposition: Home - Self-Care Reason For Visit: MDD Discharge Diagnosis: Major Depressive Disorder with psychotic features Activity: Resume your previous activity Non-emergency contact: Primary Care Provider and Psychiatrist Call non-emergency contact if: you have any medication questions and your symptoms worsen Follow-up/Referrals: Babatunde Bergman MD [Primary Care Provider] - Diet: Regular Addtl Attending Provider Instructions: SPECIAL CARE INSTRUCTIONS: 1. Follow through with your scheduled aftercare appointments. If unable to keep an appointment, please call to reschedule. 2. Take your medication only as prescribed. Medication should not be changed or stopped without the approval of your doctor. In the event of worsening symptoms or concerns about side effects, contact your doctor immediately. 3. Utilize new healthy coping skills, anger management skills, and stress management skills learned during your hospitalization. Journal feelings and process them with a support person. Identify stressors or situations that may result in relapse, deterioration or inappropriate behaviors and develop a plan to deal with those issues. 4. If your coping skills are ineffective and you are in crisis, contact your outpatient providers for direction. If unable to reach your providers, please call the [facility] CRISIS LINE AT , go to the [facility] walk-in center at [address], [place], or go to the closest Emergency Room. 5. Avoid alcohol and un-prescribed drugs. 6. You have been provided with the Mental Health Advance Directives Pamphlet for your review. 7. Your condition is stable for discharge to outpatient level of care, but recovery is an ongoing process. Ifthoughts to harm yourself or others return, follow the safety plan developed during your stay. Planning for a safe return home includes securing weapons. Our treatment team recommends weaponsbe removed from the home until your outpatient provider reassesses your progress. In rare cases where the items themselvescannot be removed, guns and ammunitionshould be secured separatelyand keys stored by a reliable personoutside of the home. If you were admitted on an involuntary commitment, the police or other legal authorities may be involved in this process. AFTERCARE APPOINTMENTS: * Please call your insurance company prior to your scheduled appointment to confirm your aftercare providers are covered. Take your insurance information to your appointments. WHO TO CALL AND WHEN: Medical Emergencies: For questions or emergencies related to your hospital stay, please contact the Inpatient Behavioral Health Unit at [phone]. A eap clinician is on-call 18/03 for the Behavioral Health Unit for emergencies At any time you feel your situation is an emergency, you may also call 911 immediately. Pending Studies at Discharge: No Stand-Alone Forms: My [facility] Medications and DC Order Prescriptions: New risperidone 1 mg Tablet 1 mg PO HS 30 Days Qty: 30 RF: 0 risperidone 0.5 mg Tablet 0.5 mg PO DAILYBD 30 Days Qty: 30 RF: 0 Continued acetaminophen [Tylenol Extra Strength] 500 mg Tablet 1,000 mg PO Q6H PRN (Reason: Pain) RF: 0 gabapentin 800 mg tablet 800 mg PO TID RF: 0 hydroxyzine pamoate 50 mg capsule 50 mg PO TID PRN (Reason: Anxiety) RF: 0 propranolol 40 mg tablet 40 mg PO BID RF: 0 famotidine 20 mg tablet 20 mg PO BID RF: 0 benztropine 2 mg tablet 2 mg PO BID RF: 0 duloxetine 30 mg capsule,delayed release(DR/EC) 30 mg PO DAILY RF: 0 duloxetine 60 mg capsule,delayed release(DR/EC) 60 mg PO DAILY RF: 0 enoxaparin [Lovenox] 60 mg/0.6 mL Syringe 60 mg SUBCUT Q12H RF: 0 tramadol 50 mg Tablet 50 mg PO Q6H PRN (Reason: pain) Qty: 10 RF: 0 Discontinued haloperidol 5 mg tablet 5 mg PO DAILY RF: 0 haloperidol 5 mg tablet 10 mg PO HS RF: 0 mirtazapine 15 mg tablet 15 mg PO HS RF: 0 Discharge Orders: Discharge Order (Routine); Ordered 06/14/21 Ordered By: Alma Rosa Yanez/Other Patient Handouts: Depression: Tips to Help Yourself Admission Data Admit Date/Time: 06/07/21 14:00 Attending Provider: Alma Rosa Mendez Admit Provider: Deepthi Mayo Primary Care Provider: Babatunde Bergman Coding Level of Care Code 90311 D/C day mgmt > 30 min Diagnoses Major depression F32.9 Generalized abdominal pain R10.84 Mesenteric adenitis I88.0 Thrombocytosis D47.3 Asplenia Q89.01 Brock brock disease I67.5 Time Spent (min) 45
[2021-06-14] MEDS: risperiDONE 0.5 MG TABLET PO SCH (16:23)
== END 2021-06-14 16:55 | disposition home or self-care (01) | DRG 885 ==
LOC: ED 06:32 → 3S 14:00 → SUATTDRO 14:00 → 3S 15:47

== ENCOUNTER 2021-06-22 14:36 | Observation (INO) ==
[2021-06-22] MEDS ORDERED: cefTRIAXone SODIUM 2,000 MG/70 ML BAG IV STA (15:14)
--- NOTE | 2021-06-22 15:14 | Emergency Department Note ---
History of Present Illness General Chief complaint: Flu Like Symptoms Stated complaint: ILLNESS, HEADACHE, SORE THROAT, COUGH Time Seen by Provider: 06/22/21 14:57 Source: patient Mode of arrival: ambulatory Limitations: no limitations History of Present Illness Maximum Pain Intensity: 8 This patient is a 20-year-old female who comes in after having Covid-like symptoms since yesterday. Her qiojuu-ba-oqf has Covid and she was exposed to him she has had a headache and fever at home. Has been coughing and body aches and nausea. She says her headache is in line with typical headache she get it is not extreme. She has no focal numbness or weakness. No nausea vomiting diarrhea. She has shortness of breath with exertion only. She had the A-STAR vaccine x2 with the last dose in December. She has been keeping up with her fluids. She is asplenic and her spleen was removed at age 1. 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 She had vascular brain surgery done this past year in [place]. He said her T-max at home was 99.9 Home Medications Medication Instructions Recorded Confirmed Type acetaminophen 500 mg tablet 1,000 mg PO Q6H PRN 03/09/21 06/22/21 History (Tylenol Extra Strength) benztropine 2 mg tablet 2 mg PO BID 03/09/21 06/22/21 History duloxetine 30 mg capsule,delayed 30 mg PO DAILY 03/09/21 06/22/21 History release duloxetine 60 mg capsule,delayed 60 mg PO DAILY 03/09/21 06/22/21 History release famotidine 20 mg tablet 20 mg PO BID PRN 03/09/21 06/22/21 History gabapentin 800 mg tablet 800 mg PO TID 03/09/21 06/22/21 History hydroxyzine pamoate 50 mg capsule 50 mg PO TID PRN 03/09/21 06/22/21 History propranolol 40 mg tablet 40 mg PO BID 03/09/21 06/22/21 History enoxaparin 60 mg/0.6 mL 60 mg SUBCUT Q12H 04/30/21 06/22/21 History subcutaneous syringe (Lovenox) tramadol 50 mg tablet 50 mg PO Q6H PRN #10 tab 05/15/21 06/22/21 Rx risperidone 0.5 mg tablet 0.5 mg PO DAILYBD 30 Days #30 tab 06/14/21 06/22/21 Rx risperidone 1 mg tablet 1 mg PO HS 30 Days #30 tab 06/14/21 06/22/21 Rx dicyclomine 10 mg capsule 10 mg PO QID PRN 06/22/21 06/22/21 History Allergies Allergy/AdvReac Type Severity Reaction Status Date / Time vancomycin Allergy Mild Red/Itchy Verified 06/22/21 16:49 skin Past Med/Surg History Medical History Asplenia Intermittent asthma Major depressive disorder with psychotic 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 PTSD (post-traumatic stress disorder) Superior mesenteric vein thrombosis Thrombocytosis Family History Other Family history non-contributory Social History Smoking Status: Never smoker Hx Alcohol Use: No Hx Substance Use: No Preferred Language: Estonian Communication Ability: Effective Overlock Hemmer Required: No Beliefs That Will Affect Care: None marital status: Current Living Situation: Significant Other How many Children do You have: 0 Feels Safe at Home: Yes Assistive Devices: None Review of Systems A total of 10 systems reviewed and were otherwise negative Physical Exam Vital Signs Vital Signs - 24 hr 06/22/21 14:51 06/22/21 15:16 06/22/21 15:19 Pulse Rate 86 84 Pulse Rate [Right Finger] Respiratory Rate 20 Respiratory Effort / Characteristics Non-Labored Non-Labored Respiratory Depth Normal Blood Pressure 143/82 H Blood Pressure [Right Arm] Blood Pressure Mean 102 Blood Pressure Mean [Right Arm] Pulse Oximetry 98 98 99 Oxygen Delivery Method Room Air Room Air Room Air Sepsis Recent Fever Within 48 Hours No Sepsis New/Unexplained Change in Mental Status N/A Sepsis Action Taken by Nursing No Action Required 06/22/21 15:31 06/22/21 16:00 06/22/21 17:00 Pulse Rate Pulse Rate [Right Finger] 82 82 97 H Respiratory Rate 22 18 20 Respiratory Effort / Characteristics Non-Labored Respiratory Depth Normal Blood Pressure Blood Pressure [Right Arm] 106/71 112/73 107/88 Blood Pressure Mean Blood Pressure Mean [Right Arm] 82 86 94 Pulse Oximetry 100 98 97 Oxygen Delivery Method Room Air Room Air Room Air Sepsis Recent Fever Within 48 Hours Sepsis New/Unexplained Change in Mental Status Sepsis Action Taken by Nursing 06/22/21 18:00 06/22/21 19:38 06/22/21 19:39 Pulse Rate Pulse Rate [Right Finger] 86 82 82 Respiratory Rate 14 18 18 Respiratory Effort / Characteristics Non-Labored Spontaneous Non-Labored Spontaneous Respiratory Depth Normal Normal Blood Pressure Blood Pressure [Right Arm] 111/67 117/73 117/73 Blood Pressure Mean Blood Pressure Mean [Right Arm] 81 87 87 Pulse Oximetry 95 97 97 Oxygen Delivery Method Room Air Room Air Room Air Sepsis Recent Fever Within 48 Hours Sepsis New/Unexplained Change in Mental Status Sepsis Action Taken by Nursing General: Well developed well nourished not ill-appearing young female who appears in no acute distress, breathing comfortably on room air. Normal speech HEENT: Normal cephalic atraumatic. Pupils are equal round and reactive to light. Extraocular movements are intact. Oropharynx is pink with moist mucous membranes. No swelling of the mouth lips or tongue. Neck: Supple with a midline trachea. No meningeal signs or stiffness, no JVD or bruits. No Stridor. Chest: Clear to auscultation bilaterally. No wheezes or rhonchi. No increased work of breathing. Heart: Regular rate and rhythm without murmurs or gallops. Abdomen: Soft nontender, nondistended without rebound guarding or rigidity. Extremities: No cyanosis clubbing or edema. No calf tenderness or assymetry Spine/Back. Non tender to palpation. No CVA tenderness Skin: Good turgor without rashes. Neurologic exam: Cranial nerves two through 12 are intact. Motor and sensation are intact and symmetrical throughout. Course Administered Medications Discontinued Medications Ceftriaxone Sodium (Rocephin) 2,000 mg in 70 mls @ 140 mls/hr IV NOW STA Stop: 06/22/21 15:43 Last Infusion: 06/22/21 17:38 Dose: 0 mls/hr Documented by: [id number] Admin: 06/22/21 15:53 Dose: 140 mls/hr Documented by: [id number] Medical Decision Making Differential Diagnosis Covid, sepsis, pneumonia, meningitis, electrolyte or metabolic abnormality, complications related to asplenia or moyamoya Medical Records Attestation: I reviewed the patient's medical records. Home Medications Current Medication List: was personally reviewed by me Laboratory Data Attestation: I reviewed the patient's lab results. Result diagrams: 06/22/21 15:07 06/22/21 15:07 Lab Results 06/22/21 06/22/21 06/22/21 Range/Units 15:07 15:07 15:07 WBC 10.51 (4.8-10.8) K/uL RBC 4.60 (4.2-5.4) M/uL Hgb 13.9 (12.0-16.0) g/dL Hct 40.6 (37-47) % MCV 88.3 (80-100) fL MCH 30.2 (25-34) pg MCHC 34.2 (32-36) g/dL RDW Std Deviation 44.8 (36.4-46.3) fL RDW Coeff of Toni 13.9 (11.5-14.5) % Plt Count 1031 H* (130-400) K/uL MPV 8.7 (7.4-10.4) fL Immature Gran % (Auto) 0.2 % Neut % (Auto) 33.3 % Lymph % (Auto) 49.4 % [place] % (Auto) 14.1 % Eos % (Auto) 2.5 % Baso % (Auto) 0.5 % Neut # (Auto) 3.51 (1.4-6.5) K/uL Lymph # (Auto) 5.19 H (1.2-3.4) K/uL [place] # (Auto) 1.48 H (0.11-0.59) K/uL Eos # (Auto) 0.26 (0-0.5) K/uL Baso # (Auto) 0.05 (0-0.2) K/uL Immature Gran # (Auto) 0.02 (0.00-0.02) K/uL RBC Morphology Unremarkable PT 10.3 (9.0-12.0) Seconds INR 1.0 (0.9-1.1) APTT 26.8 (21.0-31.0) Seconds PTT Ratio 1.0 Sodium 138 (136-145) mmol/L Potassium 3.6 (3.5-5.1) mmol/L Chloride 106 (98-107) mmol/L Carbon Dioxide 24 (21-32) mmol/L Anion Gap 8.0 (3-11) BUN 6 L (7-18) mg/dl Creatinine 0.74 (0.6-1.2) mg/dl Est Cr Clr Drug Dosing 122.4 ml/min Est GFR ( Amer) 133.3 ml/min Est GFR (Non-Af Amer) 115.0 ml/min BUN/Creatinine Ratio 8.3 L (10-20) Glucose 88 (70-99) mg/dl Lactate (0.4-2.0) mmol/L Calcium 9.6 (8.5-10.1) mg/dl Magnesium 2.4 (1.8-2.4) mg/dl Total Bilirubin 0.4 (0.2-1) mg/dl AST 20 (15-37) U/L ALT 88 H (12-78) U/L Alkaline Phosphatase 202 H (45-117) U/L Total Protein 8.0 (6.4-8.2) gm/dl Albumin 3.9 (3.4-5.0) gm/dl Globulin 4.1 H (2.5-4.0) gm/dl Albumin/Globulin Ratio 1.0 (0.9-2) COVID-19 Eval Order SARS-CoV-2 (PCR) (Negative) 06/22/21 06/22/21 06/22/21 Range/Units 15:19 15:19 15:40 WBC (4.8-10.8) K/uL RBC (4.2-5.4) M/uL Hgb (12.0-16.0) g/dL Hct (37-47) % MCV (80-100) fL MCH (25-34) pg MCHC (32-36) g/dL RDW Std Deviation (36.4-46.3) fL RDW Coeff of Toni (11.5-14.5) % Plt Count (130-400) K/uL MPV (7.4-10.4) fL Immature Gran % (Auto) % Neut % (Auto) % Lymph % (Auto) % [place] % (Auto) % Eos % (Auto) % Baso % (Auto) % Neut # (Auto) (1.4-6.5) K/uL Lymph # (Auto) (1.2-3.4) K/uL [place] # (Auto) (0.11-0.59) K/uL Eos # (Auto) (0-0.5) K/uL Baso # (Auto) (0-0.2) K/uL Immature Gran # (Auto) (0.00-0.02) K/uL RBC Morphology PT (9.0-12.0) Seconds INR (0.9-1.1) APTT (21.0-31.0) Seconds PTT Ratio Sodium (136-145) mmol/L Potassium (3.5-5.1) mmol/L Chloride (98-107) mmol/L Carbon Dioxide (21-32) mmol/L Anion Gap (3-11) BUN (7-18) mg/dl Creatinine (0.6-1.2) mg/dl Est Cr Clr Drug Dosing ml/min Est GFR ( Amer) ml/min Est GFR (Non-Af Amer) ml/min BUN/Creatinine Ratio (10-20) Glucose (70-99) mg/dl Lactate 0.8 (0.4-2.0) mmol/L Calcium (8.5-10.1) mg/dl Magnesium (1.8-2.4) mg/dl Total Bilirubin (0.2-1) mg/dl AST (15-37) U/L ALT (12-78) U/L Alkaline Phosphatase (45-117) U/L Total Protein (6.4-8.2) gm/dl Albumin (3.4-5.0) gm/dl Globulin (2.5-4.0) gm/dl Albumin/Globulin Ratio (0.9-2) COVID-19 Eval Order Covid19 at [facility] SARS-CoV-2 (PCR) POSITIVE A* (Negative) Imaging Data Attestation: I personally reviewed and interpreted this imaging study as follows: My Impression: Chest x-rayno acute infiltrate, failure, pneumothorax seen. Radiologist's Impression: Chest X-Ray 06/22/21 15:07 XR chest 1V portable CLINICAL HISTORY: SEPSIS TECHNIQUE: Single frontal radiograph of the chest was obtained. Comparison: None available at the time of this dictation. FINDINGS: No lines and tubes are seen. The cardiomediastinal silhouette is normal. The lungs are clear. An azygos fissure is incidentally noted. No evidence of pleural effusion or pneumothorax. IMPRESSION: No acute chest disease. ACT 112: Negative or not required by law. Electronically signed by: Rakesh Dimas M.D. 06/22/2021 3:36 PM ECG Data Attestation: I personally reviewed and interpreted this ECG as follows: Indication: + chest pain and + weakness Rate (beats per minute): 77 Rhythm: + normal sinus ECG Intervals/blocks: + Normal QRS and + Normal QT ECG [place]: + Normal ECG ST segments: + Normal ST segments ECG Findings: + Other (Nonspecific T wave abnormality); no PACs or no PVCs Comparison ECG Date: from (05/13/21) Change: the following changes noted (Nonspecific T waves are now present) MDM Narrative This patient comes in as described above. She was placed on a school lunch monitor room C5 she looks well and has stable vital signs my only concern with her is she is asplenic. She reports a low-grade fever at home up to 99.9 In light, a full sepsis work-up was obtained. she was hydrated with IV normal saline she was given IV Rocephin. She tells me she is only allergic to vancomycin. Chest x-ray does not show any focal infiltrates. EKG does not suggest ischemia. Covid testing was positive. Lactic acid was not elevated which would go against sepsis. There is no significant l electrolyte or metabolic abnormalities. CBC showed a significant elevated platelets. This is even higher than her baseline. Her white count is normal. She looks well but given her asplenic status as well as her elevated platelets and her fever and Covid diagnosis, I do think she would benefit from observation. I have consulted [facility] to see her in the ER for these measures. Continuous cardiac monitoring: Due to the patient's concern for infection/sepsis, an order was placed in EMR for tenuous cardiac monitoring. Upon my interpretation she was noted to be in normal sinus rhythm with a rate of 85 Impression & Plan COVID, Acquired asplenia, Elevated platelet count, Fever Discharge Plan Visit Data Chief Complaint: Flu Like Symptoms Stated Complaint: ILLNESS, HEADACHE, SORE THROAT, COUGH ED Provider: Javon Joseph Discharge Problem: COVID, Acquired asplenia, Elevated platelet count, Fever Forms Stand Alone Forms: [facility] [employer] Prescriptions Prescriptions: No Action acetaminophen [Tylenol Extra Strength] 500 mg Tablet 1,000 mg PO Q6H PRN (Reason: Pain) RF: 0 gabapentin 800 mg tablet 800 mg PO TID RF: 0 hydroxyzine pamoate 50 mg capsule 50 mg PO TID PRN (Reason: Anxiety) RF: 0 propranolol 40 mg tablet 40 mg PO BID RF: 0 famotidine 20 mg tablet 20 mg PO BID PRN (Reason: Acid Reflux) RF: 0 benztropine 2 mg tablet 2 mg PO BID RF: 0 duloxetine 30 mg capsule,delayed release(DR/EC) 30 mg PO DAILY RF: 0 duloxetine 60 mg capsule,delayed release(DR/EC) 60 mg PO DAILY RF: 0 dicyclomine 10 mg capsule 10 mg PO QID PRN (Reason: ..) RF: 0 enoxaparin [Lovenox] 60 mg/0.6 mL Syringe 60 mg SUBCUT Q12H RF: 0 tramadol 50 mg Tablet 50 mg PO Q6H PRN (Reason: pain) Qty: 10 RF: 0 risperidone 1 mg Tablet 1 mg PO HS 30 Days Qty: 30 RF: 0 risperidone 0.5 mg Tablet 0.5 mg PO DAILYBD 30 Days Qty: 30 RF: 0 Referrals Referrals: Babatunde Bergman MD [Primary Care Provider] -
--- NOTE | 2021-06-22 15:38 | XRay Report ---
XR chest 1V portable CLINICAL HISTORY: SEPSIS TECHNIQUE: Single frontal radiograph of the chest was obtained. Comparison: None available at the time of this dictation. FINDINGS: No lines and tubes are seen. The cardiomediastinal silhouette is normal. The lungs are clear. An azyg os fissure is incidentally noted. No evidence of pleural effusion or pneumothorax. IMPRESSION: No acute chest disease. ACT 112: Negative or not required by law. Electronically signed by: Rakesh Dimas M.D. 06/22/2021 3:36 PM
[2021-06-22 15:43] LABS: Partial Thromboplastin Time 26.8 Seconds (21.0-31.0); Prothrombin Time 10.3 Seconds (9.0-12.0)
[2021-06-22 16:11] LABS: Albumin Level 3.9 gm/dl (3.4-5.0); BUN Creatinine Ratio 8.3 (10-20); Calcium 9.6 mg/dl (8.5-10.1); Creatinine Clr Calc Pharmacy 122.4 ml/min; Est GFR (African American) 133.3 ml/min; Magnesium 2.4 mg/dl (1.8-2.4); Potassium 3.6 mmol/L (3.5-5.1)
[2021-06-22 16:14] LABS: Bilirubin,Total 0.4 mg/dl (0.2-1); Globulin 4.1 gm/dl (2.5-4.0)
[2021-06-22 16:39] LABS: Hematocrit (blood only) 40.6 % (37-47); Hemoglobin 13.9 g/dL (12.0-16.0); Mean Corpuscular Hemoglobin 30.2 pg (25-34); Mean Corpuscular Hgb Conc 34.2 g/dL (32-36); Mean Corpuscular Volume 88.3 fL (80-100); Mean Platelet Volume 8.7 fL (7.4-10.4); Platelet Count 1031 K/uL (130-400); RDW Coefficient of Variation 13.9 % (11.5-14.5); RDW Standard Deviation 44.8 fL (36.4-46.3); White Blood Count 10.51 K/uL (4.8-10.8)
[2021-06-22 16:47] LABS: Basophils # (auto) 0.05 K/uL (0-0.2); Basophils % (auto) 0.5 %; Eosinophils # (auto) 0.26 K/uL (0-0.5); Eosinophils % (auto) 2.5 %; Immature Granulocytes # (auto) 0.02 K/uL (0.00-0.02); Immature Granulocytes % (auto) 0.2 %; Lymphocytes # (auto) 5.19 K/uL (1.2-3.4); Lymphocytes % (auto) 49.4 %; Monocytes # (auto) 1.48 K/uL (0.11-0.59); Monocytes % (auto) 14.1 %; Neutrophils # (auto) 3.51 K/uL (1.4-6.5); Neutrophils % (auto) 33.3 %; RBC Morphology Unremarkable
--- NOTE | 2021-06-22 20:06 | Communication Note ---
Date of Service: June 22, 2021 Attending Addendum: care coordinated with BRIANNE Neeru Cheema please refer to her notes for full details, I agree with her notes patient seen and examined, records reviewed by myself as well on exam, patient seen resting in bed, sitting up, not in distress main complaint is headache, fever, cough no active dyspnea, chest pain, palpitations no abdominal pain, nausea/vomiting no diarrhea, dysuria no other symptoms VS noted and reviewed oriented x 3 , not in distress, speaks in sentences with no effort nor accessory muscle use normal rate, regular rhythm, no murmurs clear breath sounds bilaterally non distended, soft, nontender no bipedal edema, erythema, warmth no neuro deficits WBC 10.5 Hg 13.9 Crea 0.74 CXR: no infiltrates ASSESSMENT AND PLAN COVID 19 Infection Asplenia -- no signs of sepsis -- no hypoxia CXR clear -- cultures pending -- continue Ceftriaxone IV for now monitor closely other diagnoses and plan of care as per BRIANNE Ricks MD
--- NOTE | 2021-06-22 20:31 | History & Physical Report ---
Date of Service June 22, 2021 Assessment & Plan (1) COVID: (2) Acquired asplenia: (3) Thrombocytosis: (4) Elevated LFTs: (5) Superior mesenteric vein thrombosis: (6) Brock brock disease: Plan: This is a 20-year-old female who has significant past medical history of moyamoya syndrome, hyperprolactinemia, thrombosis of mesenteric vein, portal vein thrombosis, asthma, 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 CXR: No acute disease No oxygen requirements Given hx of asplenia, known vaccination status, thrombocytosis, fever will admit for observation and monitoring admit to med tele continue 2g Rocephin blood cultures pending IVF 80cc/hr x 1 L supportive care for Covid Sx Thrombocytosis 2/2 to splenectomy also hx of brock brock Plt persistently elevated 6-800s 1031 today consider discussion with heme in a.m. Superior mesenteric vein thrombosis/portal vein thrombosis Therapeutic Lovenox 60mg Q12 follows [facility] Elevated LFT no abd pain alt 88, alp 202 likely 2/2 to covid follow Brock Brock disease Dispo: med tele, d/c to home when stable FULL CODE PCP: Pacheco Pt was seen and examined in collaboration with Dr. Ricks, please see addendum/communication note History of Present Illness Chief Complaint: Flulike symptoms x1 day. Primary Care Provider: Babatunde Bergman MD This is a 20-year-old female who has significant past medical history of moyamoya syndrome, hyperprolactinemia, thrombosis of mesenteric vein, portal vein thrombosis, asthma, 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 Of significance patient is immunocompromise in setting of splenectomy. She is fully vaccinated for Covid with last dose in December. Her [id number] tested positive for Covid and she was exposed to him. She developed symptoms yesterday including headache and fever at home. She further complains of body aches, myalgias, nausea, and shortness of breath with exert ion. Her T-max at home was 99.9. She denies chills, sweats, lightheadedness, dizziness, chest pain, palpitations, emesis, abdominal pain, diarrhea, dysuria, hematochezia, hematuria. In ED patient remained hemodynamically stable. Her CBC and CMP was generally unremarkable except for thrombocytosis with platelet count of 1031. She did test positive for SARS-CoV-2. Her chest x-ray was negative for acute infection. She was saturating well on room air. In setting of asplenia and moyamoya blood cultures were obtained. She received IV Rocephin to cover for encapsulated organisms. Given underlying ailments it was recommended she be admitted for observation. Of significance patient had recent admission to [facility] from 06/08-06/14 Secondary to major depressive disorder. Allergies Allergy/AdvReac Type Severity Reaction Status Date / Time vancomycin Allergy Mild Red/Itchy Verified 06/22/21 16:49 skin Home Medications Medication Instructions Recorded Confirmed Type acetaminophen 500 mg tablet 1,000 mg PO Q6H PRN 03/09/21 06/22/21 History (Tylenol Extra Strength) benztropine 2 mg tablet 2 mg PO BID 03/09/21 06/22/21 History duloxetine 30 mg capsule,delayed 30 mg PO DAILY 03/09/21 06/22/21 History release duloxetine 60 mg capsule,delayed 60 mg PO DAILY 03/09/21 06/22/21 History release famotidine 20 mg tablet 20 mg PO BID PRN 03/09/21 06/22/21 History gabapentin 800 mg tablet 800 mg PO TID 03/09/21 06/22/21 History hydroxyzine pamoate 50 mg capsule 50 mg PO TID PRN 03/09/21 06/22/21 History propranolol 40 mg tablet 40 mg PO BID 03/09/21 06/22/21 History enoxaparin 60 mg/0.6 mL 60 mg SUBCUT Q12H 04/30/21 06/22/21 History subcutaneous syringe (Lovenox) tramadol 50 mg tablet 50 mg PO Q6H PRN #10 tab 05/15/21 06/22/21 Rx risperidone 0.5 mg tablet 0.5 mg PO DAILYBD 30 Days #30 tab 06/14/21 06/22/21 Rx risperidone 1 mg tablet 1 mg PO HS 30 Days #30 tab 06/14/21 06/22/21 Rx dicyclomine 10 mg capsule 10 mg PO QID PRN 06/22/21 06/22/21 History Past Med/Surg History Medical History Asplenia Intermittent asthma Major depressive disorder with psychotic 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 PTSD (post-traumatic stress disorder) Superior mesenteric vein thrombosis Thrombocytosis Surgical History (Updated 06/22/21 @ 20:19 by Neeru Cheema PA-C) History of splenectomy Family History (Updated 06/22/21 @ 20:21 by Neeru Cheema PA-C) Denies family history of Coronary heart disease Social History Smoking Status: Never smoker Hx Alcohol Use: No Hx Substance Use: No Preferred Language: Danish Communication Ability: Effective Production Supv Required: No Beliefs That Will Affect Care: None marital status: Current Living Situation: Significant Other How many Children do You have: 0 Feels Safe at Home: Yes Safety Concerns: Feels Safe At This Time Assistive Devices: None Review of Systems Review of Systems: All systems reviewed & are unremarkable except as noted in HPI & below Physical Exam Physical Exam: Please refer to attending communication note for physical exam findings Results & Data Results & Data ([facility]) Vital Signs (Past 12 Hours) Vital Signs Pulse Pulse Resp BP BP Pulse Ox 06/22/21 19:39 82 18 117/73 97 06/22/21 19:38 82 18 117/73 97 06/22/21 18:00 86 14 111/67 95 06/22/21 17:00 97 H 20 107/88 97 06/22/21 16:00 82 18 112/73 98 06/22/21 15:31 82 22 106/71 100 06/22/21 15:19 99 06/22/21 15:16 84 98 06/22/21 14:51 86 20 143/82 H 98 Diagnostic Findings Chest X-Ray 06/22/21 15:07 XR chest 1V portable CLINICAL HISTORY: SEPSIS TECHNIQUE: Single frontal radiograph of the chest was obtained. Comparison: None available at the time of this dictation. FINDINGS: No lines and tubes are seen. The cardiomediastinal silhouette is normal. The lungs are clear. An azygos fissure is incidentally noted. No evidence of pleural effusion or pneumothorax. IMPRESSION: No acute chest disease. ACT 112: Negative or not required by law. Electronically signed by: Rakesh Dimas M.D. 06/22/2021 3:36 PM Medications Administered Medication List Discontinued Medications Ceftriaxone Sodium (Rocephin) 2,000 mg in 70 mls @ 140 mls/hr IV NOW STA Stop: 06/22/21 15:43 Last Infusion: 06/22/21 17:38 Dose: 0 mls/hr Documented by: [id number] Admin: 06/22/21 15:53 Dose: 140 mls/hr Documented by: [id number] ECG Rate (beats per minute): 77 Rhythm: normal sinus COVID-19 Results Results COVID-19 Adm Lab Results: RBC 4.59 M/uL (4.2-5.4) 06/24/21 WBC 7.25 K/uL (4.8-10.8) 06/24/21 Hgb 13.8 g/dL (12.0-16.0) 06/24/21 Hct 40.5 % (37-47) 06/24/21 Plt Count 887 K/uL (130-400) H 06/24/21 Neutrophils (%) (Auto) 48.8 % 06/24/21 Lymphocytes (%) (Auto) 26.1 % 06/24/21 Monocytes # (Auto) 1.53 K/uL (0.11-0.59) H 06/24/21 Eosinophils # (Auto) 0.20 K/uL (0-0.5) 06/24/21 Immature Granulocyte % (Auto) 0.1 % 06/24/21 Neutrophils # (Auto) 3.54 K/uL (1.4-6.5) 06/24/21 Lymphocytes # (Auto) 1.89 K/uL (1.2-3.4) 06/24/21 Monocytes # (Auto) 1.53 K/uL (0.11-0.59) H 06/24/21 Eosinophils # (Auto) 0.20 K/uL (0-0.5) 06/24/21 Basophils # (Auto) 0.08 K/uL (0-0.2) 06/24/21 Immature Granulocyte # (Auto) 0.01 K/uL (0.00-0.02) 06/24/21 Red Blood Cell Morphology Unremarkable 06/22/21 Na 137 mmol/L (136-145) 06/24/21 K 3.9 mmol/L (3.5-5.1) 06/24/21 Cl 106 mmol/L (98-107) 06/24/21 CO2 23 mmol/L (21-32) 06/24/21 Anion Gap 8.0 (3-11) 06/24/21 BUN 9 mg/dl (7-18) 06/24/21 Creatinine 0.72 mg/dl (0.6-1.2) 06/24/21 BUN/Creatinine Ratio 12.6 (10-20) 06/24/21 Glucose Level 90 mg/dl (70-99) 06/24/21 Ca 9.1 mg/dl (8.5-10.1) 06/24/21 Total Bilirubin 0.3 mg/dl (0.2-1) 06/24/21 AST/SGOT 16 U/L (15-37) 06/24/21 ALT/SGPT 58 U/L (12-78) 06/24/21 Alkaline Phosphatase 164 U/L (45-117) H 06/24/21 Total Protein 7.1 gm/dl (6.4-8.2) 06/24/21 Albumin 3.4 gm/dl (3.4-5.0) 06/24/21 Globulin 3.7 gm/dl (2.5-4.0) 06/24/21 Albumin/Globulin Ratio 0.9 (0.9-2) 06/24/21 PTT 26.8 Seconds (21.0-31.0) 06/22/21 INR 1.0 (0.9-1.1) 06/22/21 COVID-19 PCR POSITIVE (Negative) A* 06/22/21 Chest X-Ray 06/22/21 Code Status & VTE Plan Code Status Full code VTE Prophylaxis Plan VTE Prophylaxis will be ordered: Yes Supervising Physician Co-Signing Physician Notes Attending Addendum: delayed entry date of service noted above care coordinated with BRIANNE Schaeffer please refer to her notes for full details, I agree with her notes patient seen and examined, records reviewed by myself as well on exam, patient seen resting in bed, comfortable not in distress denies active shortness of breath, chest pain, headache, dizziness, nausea/vomiting has occasional cough no other symptoms VS noted and reviewed oriented x 3, not in distress, speaks in sentences with no effort nor accessory muscle use normal rate, regular rhythm, no murmurs clear breath sounds bilaterally non distended, soft, nontender no bipedal edema, erythema, warmth no neuro deficits WBC 7.2 Hg 13.8 Crea 0.72 CXR: no infiltrates ASSESSMENT AND PLAN> COVID 19 infection History of Asplenia - no hypoxia, no signs of pneumonia on CXR - ff up blood cultures - Ceftriaxone IV ordered Superior Mesenteric Vein Thrombosis - continue Lovenox other diagnoses and plan of care as per BRIANNE Neeru Rueda notes Jorge Ricks MD
[2021-06-22] MEDS ORDERED: SODIUM CHLORIDE 0.9% 1000ML 1,000 ML IV SCH (22:04)
[2021-06-22] MEDS ORDERED: ALBUTEROL HFA 8 GM INHALER INH PRN (22:04)
[2021-06-22] MEDS ORDERED: POLYETHYLENE (MIRALAX) 17 GM PACK PO PRN (22:04)
[2021-06-22] MEDS ORDERED: traMADol HCL 50 MG TABLET PO PRN (22:04)
[2021-06-22] MEDS ORDERED: FAMOTIDINE 20 MG TAB PO PRN (22:04)
[2021-06-22] MEDS ORDERED: ALUMINUM/MAGNESIUM SUSP 30 ML UDC PO PRN (22:04)
[2021-06-22] MEDS ORDERED: MAGNESIUM HYDROXIDE SUSP 30 ML UDC PO PRN (22:04)
[2021-06-22] MEDS ORDERED: ONDANSETRON INJ 2 MG/ML 2 ML VIAL IV PRN (22:04)
[2021-06-22] MEDS ORDERED: hydrOXYzine HCl 25 MG TAB PO PRN (22:04)
[2021-06-22] MEDS ORDERED: DICYCLOMINE HCL 10 MG CAP PO PRN (22:04)
[2021-06-22] MEDS ORDERED: BENZONATATE 100 MG CAPSULE PO PRN (22:04)
[2021-06-22] MEDS: BENZTROPINE MESYLATE 1 MG TAB PO SCH (22:59)
[2021-06-22] MEDS: GABAPENTIN 800 MG TAB PO SCH (23:00)
[2021-06-22] MEDS: PROPRANOLOL HCL 20 MG TAB PO SCH (23:00)
[2021-06-22] MEDS: risperiDONE 1 MG TABLET PO SCH (23:01)
[2021-06-22] MEDS: ENOXAPARIN INJ 60 MG/0.6 ML SYR SQ SCH (23:31)
--- NOTE | 2021-06-23 06:40 | Electrocardiogram Report ---
Test Reason : Blood Pressure : / mmHG Vent. Rate : 077 BPM Atrial Rate : 077 BPM P-R Int : 148 ms QRS Dur : 092 ms QT Int : 380 ms P-R-T Axes : 020 061 017 degrees QTc Int : 430 ms Normal sinus rhythm Nonspecific T wave abnormality When compared with ECG of 13-MAY-2021 19:58, Nonspecific T wave abnormality now evident in Inferior leads Confirmed by Yaya Bey ([id number]) on 06/23/2021 6:40:08 AM Referred By: ED Confirmed By:Yaya Bey
[2021-06-23 06:52] LABS: Basophils # (auto) 0.07 K/uL (0-0.2); Basophils % (auto) 0.8 %; Eosinophils # (auto) 0.29 K/uL (0-0.5); Eosinophils % (auto) 3.5 %; Hematocrit (blood only) 39.7 % (37-47); Immature Granulocytes # (auto) 0.02 K/uL (0.00-0.02); Immature Granulocytes % (auto) 0.2 %; Mean Corpuscular Hemoglobin 29.3 pg (25-34); Mean Corpuscular Hgb Conc 32.7 g/dL (32-36); Mean Corpuscular Volume 89.4 fL (80-100); Mean Platelet Volume 8.6 fL (7.4-10.4); Monocytes # (auto) 1.48 K/uL (0.11-0.59); Monocytes % (auto) 17.9 %; Neutrophils # (auto) 4.02 K/uL (1.4-6.5); Neutrophils % (auto) 48.6 %; Nucleated RBC # (auto) 0.02 K/uL (0-0); Nucleated RBC % (auto) 0.3 %; Platelet Count 930 K/uL (130-400); RDW Standard Deviation 45.8 fL (36.4-46.3); Red Blood Count 4.44 M/uL (4.2-5.4); White Blood Count 8.28 K/uL (4.8-10.8)
[2021-06-23 07:28] LABS: Albumin Level 3.3 gm/dl (3.4-5.0); BUN Creatinine Ratio 10.5 (10-20); Calcium 9.1 mg/dl (8.5-10.1); Creatinine Clr Calc Pharmacy 120.3 ml/min; Est GFR (African American) 131.1 ml/min; Est GFR (Non-African American) 113.1 ml/min; Potassium 3.9 mmol/L (3.5-5.1)
[2021-06-23 07:31] LABS: Albumin Globulin Ratio 0.9 (0.9-2); Bilirubin,Total 0.5 mg/dl (0.2-1); Globulin 3.5 gm/dl (2.5-4.0); Total Protein 6.8 gm/dl (6.4-8.2)
[2021-06-23] MEDS: ENOXAPARIN INJ 60 MG/0.6 ML SYR SQ SCH ×2 (10:20→20:08)
[2021-06-23] MEDS: GABAPENTIN 800 MG TAB PO SCH ×3 (10:20→20:08)
[2021-06-23] MEDS: DULoxetine HCL 30 MG CAP PO SCH (10:21)
[2021-06-23] MEDS: DULoxetine HCL 60 MG CAP PO SCH (10:21)
[2021-06-23] MEDS: BENZTROPINE MESYLATE 1 MG TAB PO SCH ×2 (10:22→20:08)
[2021-06-23] MEDS: PROPRANOLOL HCL 20 MG TAB PO SCH ×2 (10:22→20:15)
[2021-06-23] MEDS: cefTRIAXone SODIUM 2,000 MG in DEXTROSE 5% 50 ML IV SCH (11:51)
[2021-06-23] MEDS ORDERED: risperiDONE 0.5 MG TABLET PO SCH (15:30)
--- NOTE | 2021-06-23 15:55 | Hospitalist Progress Note ---
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 COVID-19 infection status post vaccination CXR: No acute disease No oxygen requirements Given hx of asplenia, known vaccination status, thrombocytosis, fever will admit for observation and monitoring Has been saturating normally on room air Does not require any medications for Covid infection Given asplenia and fever antibiotic was started as below continue 2g Rocephin blood cultures pending IVF 80cc/hr x 1 L Continue antibiotic until the cultures are back Thrombocytosis 2/2 to splenectomy also hx of brock brock Plt persistently elevated 6-800s 1031 today Platelet count has been improving Superior mesenteric vein thrombosis/portal vein thrombosis Therapeutic Lovenox 60mg Q12 follows [facility] Will continue Lovenox Elevated LFT no abd pain alt 88, alp 202 likely 2/2 to covid follow-LFTs are better Brock Brock disease Dispo: med tele, d/c to home when stable FULL CODE PCP: Pacheco Likely discharge tomorrow Admission and Anticipated Discharge Date Admission Date: June 22, 2021 Subjective 06/23/2021 The patient was seen and examined in medical telemetry unit and in the Covid room She denies any symptoms of shortness of breath but has minimal cough Remains generally weak and lethargic but no fever and/or chill Review of Systems Review of Systems: All systems reviewed and are unremarkable except as noted below Musculoskeletal: Generalized weakness Physical Exam Physical Exam: Lying in bed comfortably Constitutional: well developed, well nourished and + obese; not ill appearing Eyes: PERRL, conjunctivae normal, anicteric sclerae ENMT: external ear and nose normal, oropharynx normal Neck: trachea midline, no thyromegaly Respiratory: + cough; no respiratory distress Auscultation: lungs clear to auscultation bilaterally and + diminished lung sounds; no crackles and no wheezes Cardiovascular: Rate/Rhythm: regular rate and regular rhythm; not tachycardic Heart Sounds: normal S1 and normal S2; no murmur Extremities: + edema (Trace edema bilaterally) Gastrointestinal (Abdomen): Inspection/Auscultation: normal bowel sounds; abdomen not distended Percussion/Palpation: abdomen soft; abdomen nontender Musculoskeletal: No acute arthritis in any joint Neurologic: Alert, awake and oriented x3. No focal sensory and motor deficit appreciated Results & Data Results & Data ([facility]) Vital Signs (Past 12 Hours) Vital Signs Temp Pulse Resp BP BP Pulse Ox 06/23/21 11:48 37.3 C 80 20 93/62 L 96 06/23/21 08:30 37.1 C 70 20 93/60 L 96 06/23/21 04:04 36.8 C 66 16 89/54 L 95 Laboratory Results Short CBC 06/22/21 06/23/21 Range/Units 15:07 06:05 WBC 10.51 8.28 (4.8-10.8) K/uL Hgb 13.9 13.0 (12.0-16.0) g/dL Hct 40.6 39.7 (37-47) % Plt Count 1031 H* 930 H (130-400) K/uL BMP 06/22/21 06/23/21 15:07 06:05 Sodium 138 140 Potassium 3.6 3.9 Chloride 106 108 H Carbon Dioxide 24 26 BUN 6 L 8 Creatinine 0.74 0.75 Glucose 88 87 Calcium 9.6 9.1 Liver Function 06/22/21 06/23/21 Range/Units 15:07 06:05 Total Bilirubin 0.4 0.5 (0.2-1) mg/dl AST 20 21 (15-37) U/L ALT 88 H 71 (12-78) U/L Alkaline Phosphatase 202 H 171 H (45-117) U/L Albumin 3.9 3.3 L (3.4-5.0) gm/dl Medications Administered Current Inpatient Medications Acetaminophen (Acetaminophen 325 Mg Tab) 650 mg PO Q4H PRN PRN Reason: Pain or Fever Stop: 07/22/21 22:03 Al Hydrox/Mg Hydrox/Simethicone (Aluminum/Magnesium Susp 30 Ml Udc) 15 ml PO Q4H PRN PRN Reason: Dyspepsia Stop: 07/22/21 22:03 Albuterol (Albuterol Hfa 8 Gm Inhaler) 2 puffs INH Q4H PRN PRN Reason: sob/wheezing Stop: 07/22/21 22:03 Benzonatate (Benzonatate 100 Mg Capsule) 100 mg PO TID PRN PRN Reason: Cough Stop: 07/22/21 22:03 Benztropine Mesylate (Benztropine Mesylate 1 Mg Tab) 2 mg PO BID [facility] Stop: 07/22/21 22:03 Last Admin: 06/23/21 10:22 Dose: 2 mg Documented by: Dicyclomine HCl (Dicyclomine Hcl 10 Mg Cap) 10 mg PO QID PRN PRN Reason: .. Stop: 07/22/21 22:03 Duloxetine HCl (Duloxetine Hcl 30 Mg Cap) 30 mg PO DAILY [facility] Stop: 07/23/21 08:59 Last Admin: 06/23/21 10:21 Dose: 30 mg Documented by: Duloxetine HCl (Duloxetine Hcl 60 Mg Cap) 60 mg PO DAILY [facility] Stop: 07/23/21 08:59 Last Admin: 06/23/21 10:21 Dose: 60 mg Documented by: Enoxaparin Sodium (Enoxaparin Inj 60 Mg/0.6 Ml Syr) 60 mg SQ Q12 [facility] Stop: 07/22/21 22:59 Last Admin: 06/23/21 10:20 Dose: 60 mg Documented by: Famotidine (Famotidine 20 Mg Tab) 20 mg PO BID PRN PRN Reason: Acid Reflux Stop: 07/22/21 22:03 Gabapentin (Gabapentin 800 Mg Tab) 800 mg PO TID [facility] Stop: 07/22/21 22:03 Last Admin: 06/23/21 13:25 Dose: 800 mg Documented by: Hydroxyzine HCl (Hydroxyzine Hcl 25 Mg Tab) 50 mg PO TID PRN PRN Reason: Anxiety Stop: 07/22/21 22:03 Ceftriaxone Sodium 2,000 mg/ (Dextrose) 70 mls @ 100 mls/hr IV Q24H [facility]; Protocol Stop: 06/25/21 07:59 Last Infusion: 06/23/21 12:50 Dose: Infused Documented by: Magnesium Hydroxide (Magnesium Hydroxide Susp 30 Ml Udc) 30 ml PO Q12H PRN PRN Reason: Constipation Stop: 07/22/21 22:03 Ondansetron HCl (Ondansetron Inj 2 Mg/Ml 2 Ml Vial) 4 mg IV Q6H PRN PRN Reason: Nausea Stop: 07/22/21 22:03 Polyethylene Glycol (Polyethylene (Miralax) 17 Gm Pack) 17 gm PO DAILY PRN PRN Reason: Constipation Stop: 07/22/21 22:03 Propranolol HCl (Propranolol Hcl 20 Mg Tab) 40 mg PO BID [facility] Stop: 07/22/21 22:03 Last Admin: 06/23/21 10:22 Dose: Not Given Documented by: Risperidone (Risperidone 1 Mg Tablet) 1 mg PO HS [facility] Stop: 07/22/21 22:03 Last Admin: 06/22/21 23:01 Dose: 1 mg Documented by: Risperidone (Risperidone 0.5 Mg Tablet) 0.5 mg PO DAILYBD [facility] Stop: 07/23/21 15:29 Tramadol HCl (Tramadol Hcl 50 Mg Tablet) 50 mg PO Q6H PRN PRN Reason: pain Stop: 07/22/21 22:03
[2021-06-23] MEDS: ACETAMINOPHEN 325 MG TAB PO PRN (17:08)
[2021-06-23] MEDS: risperiDONE 1 MG TABLET PO SCH (20:09)
[2021-06-24 08:11] LABS: Basophils # (auto) 0.08 K/uL (0-0.2); Basophils % (auto) 1.1 %; Eosinophils % (auto) 2.8 %; Hematocrit (blood only) 40.5 % (37-47); Hemoglobin 13.8 g/dL (12.0-16.0); Immature Granulocytes # (auto) 0.01 K/uL (0.00-0.02); Immature Granulocytes % (auto) 0.1 %; Lymphocytes # (auto) 1.89 K/uL (1.2-3.4); Lymphocytes % (auto) 26.1 %; Mean Corpuscular Hemoglobin 30.1 pg (25-34); Mean Corpuscular Hgb Conc 34.1 g/dL (32-36); Mean Corpuscular Volume 88.2 fL (80-100); Mean Platelet Volume 8.7 fL (7.4-10.4); Monocytes # (auto) 1.53 K/uL (0.11-0.59); Monocytes % (auto) 21.1 %; Neutrophils # (auto) 3.54 K/uL (1.4-6.5); Neutrophils % (auto) 48.8 %; Platelet Count 887 K/uL (130-400); RDW Coefficient of Variation 13.8 % (11.5-14.5); RDW Standard Deviation 44.5 fL (36.4-46.3); Red Blood Count 4.59 M/uL (4.2-5.4); White Blood Count 7.25 K/uL (4.8-10.8)
[2021-06-24 08:28] LABS: Albumin Level 3.4 gm/dl (3.4-5.0); BUN Creatinine Ratio 12.6 (10-20); Calcium 9.1 mg/dl (8.5-10.1); Creatinine Clr Calc Pharmacy 125.3 ml/min; Est GFR (African American) 137.8 ml/min; Est GFR (Non-African American) 118.9 ml/min; Potassium 3.9 mmol/L (3.5-5.1)
[2021-06-24 08:31] LABS: Albumin Globulin Ratio 0.9 (0.9-2); Bilirubin,Total 0.3 mg/dl (0.2-1); Globulin 3.7 gm/dl (2.5-4.0); Total Protein 7.1 gm/dl (6.4-8.2)
[2021-06-24] MEDS: cefTRIAXone SODIUM 2,000 MG in DEXTROSE 5% 50 ML IV SCH (08:46)
[2021-06-24] MEDS: BENZTROPINE MESYLATE 1 MG TAB PO SCH (08:47)
[2021-06-24] MEDS: GABAPENTIN 800 MG TAB PO SCH (08:48)
[2021-06-24] MEDS: PROPRANOLOL HCL 20 MG TAB PO SCH (08:48)
[2021-06-24] MEDS: ENOXAPARIN INJ 60 MG/0.6 ML SYR SQ SCH (08:49)
[2021-06-24] MEDS: DULoxetine HCL 60 MG CAP PO SCH (08:50)
[2021-06-24] MEDS: DULoxetine HCL 30 MG CAP PO SCH (08:50)
[2021-06-24] MEDS: ACETAMINOPHEN 325 MG TAB PO PRN (11:53)
--- NOTE | 2021-06-24 13:07 | Hospitalist Progress Note ---
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 also hx of brock brock Plt persistently elevated 6-800s 1031 today Platelet count has been improving and it is 8087 as of 06/24/2021 Superior mesenteric vein thrombosis/portal vein thrombosis Therapeutic Lovenox 60mg Q12 follows [facility] Will continue Lovenox Elevated LFT no abd pain alt 88, alp 202 likely 2/2 to covid follow-LFTs are better Brock Brock disease Dispo: med tele, d/c to home when stable FULL CODE PCP: Pacheco Discussed with the and she will be discharged home this afternoon Admission and Anticipated Discharge Date Admission Date: June 22, 2021 Subjective 06/23/2021 The patient was seen and examined in medical telemetry unit and in the Covid room She denies any symptoms of shortness of breath but has minimal cough Remains generally weak and lethargic but no fever and/or chill 06/24/2021 The patient was seen and examined in medical telemetry unit and in Covid room She denies any symptoms of shortness of breath and her cough Does not have any fever and/or chills No headache and no blurred vision and no abdominal pain nausea and or vomiting Review of Systems Review of Systems: All systems reviewed and are unremarkable except as noted below Musculoskeletal: Generalized weakness Physical Exam Physical Exam: Lying in bed comfortably Constitutional: well developed, well nourished and + obese; not ill appearing Eyes: PERRL, conjunctivae normal, anicteric sclerae ENMT: external ear and nose normal, oropharynx normal Neck: trachea midline, no thyromegaly Respiratory: + cough; no respiratory distress Auscultation: lungs clear to auscultation bilaterally and + diminished lung sounds; no crackles and no wheezes Cardiovascular: Rate/Rhythm: regular rate and regular rhythm; not tachycardic Heart Sounds: normal S1 and normal S2; no murmur Extremities: + edema ( Trace edema bilaterally) Gastrointestinal (Abdomen): Inspection/Auscultation: normal bowel sounds; abdomen not distended Percussion/Palpation: abdomen soft; abdomen nontender Musculoskeletal: No acute arthritis in any joint Neurologic: Alert awake and oriented. No focal neuro deficit Lymphatic: no cervical or axillary lymphadenopathy Results & Data Results & Data ([facility]) Vital Signs (Past 12 Hours) Vital Signs Temp Pulse Resp BP Pulse Ox 06/24/21 08:51 37 C 86 20 104/60 96 06/24/21 03:03 37.1 C 83 18 96/54 L 94 Laboratory Results Short CBC 06/24/21 Range/Units 07:16 WBC 7.25 (4.8-10.8) K/uL Hgb 13.8 (12.0-16.0) g/dL Hct 40.5 (37-47) % Plt Count 887 H (130-400) K/uL BMP 06/24/21 07:16 Sodium 137 Potassium 3.9 Chloride 106 Carbon Dioxide 23 BUN 9 Creatinine 0.72 Glucose 90 Calcium 9.1 Liver Function 06/24/21 Range/Units 07:16 Total Bilirubin 0.3 (0.2-1) mg/dl AST 16 (15-37) U/L ALT 58 (12-78) U/L Alkaline Phosphatase 164 H (45-117) U/L Albumin 3.4 (3.4-5.0) gm/dl Medications Administered Current Inpatient Medications Acetaminophen (Acetaminophen 325 Mg Tab) 650 mg PO Q4H PRN PRN Reason: Pain or Fever Stop: 07/22/21 22:03 Last Admin: 06/24/21 11:53 Dose: 650 mg Documented by: Al Hydrox/Mg Hydrox/Simethicone (Aluminum/Magnesium Susp 30 Ml Udc) 15 ml PO Q4H PRN PRN Reason: Dyspepsia Stop: 07/22/21 22:03 Albuterol (Albuterol Hfa 8 Gm Inhaler) 2 puffs INH Q4H PRN PRN Reason: sob/wheezing Stop: 07/22/21 22:03 Benzonatate (Benzonatate 100 Mg Capsule) 100 mg PO TID PRN PRN Reason: Cough Stop: 07/22/21 22:03 Benztropine Mesylate (Benztropine Mesylate 1 Mg Tab) 2 mg PO BID [facility] Stop: 07/22/21 22:03 Last Admin: 06/24/21 08:47 Dose: 2 mg Documented by: Dicyclomine HCl (Dicyclomine Hcl 10 Mg Cap) 10 mg PO QID PRN PRN Reason: .. Stop: 07/22/21 22:03 Duloxetine HCl (Duloxetine Hcl 30 Mg Cap) 30 mg PO DAILY [facility] Stop: 07/23/21 08:59 Last Admin: 06/24/21 08:50 Dose: 30 mg Documented by: Duloxetine HCl (Duloxetine Hcl 60 Mg Cap) 60 mg PO DAILY [facility] Stop: 07/23/21 08:59 Last Admin: 06/24/21 08:50 Dose: 60 mg Documented by: Enoxaparin Sodium (Enoxaparin Inj 60 Mg/0.6 Ml Syr) 60 mg SQ Q12 [facility] Stop: 07/22/21 22:59 Last Admin: 06/24/21 08:49 Dose: 60 mg Documented by: Famotidine (Famotidine 20 Mg Tab) 20 mg PO BID PRN PRN Reason: Acid Reflux Stop: 07/22/21 22:03 Gabapentin (Gabapentin 800 Mg Tab) 800 mg PO TID [facility] Stop: 07/22/21 22:03 Last Admin: 06/24/21 08:48 Dose: 800 mg Documented by: Hydroxyzine HCl (Hydroxyzine Hcl 25 Mg Tab) 50 mg PO TID PRN PRN Reason: Anxiety Stop: 07/22/21 22:03 Ceftriaxone Sodium 2,000 mg/ (Dextrose) 70 mls @ 100 mls/hr IV Q24H [facility]; Protocol Stop: 06/25/21 07:59 Last Infusion: 06/24/21 10:57 Dose: Infused Documented by: Magnesium Hydroxide (Magnesium Hydroxide Susp 30 Ml Udc) 30 ml PO Q12H PRN PRN Reason: Constipation Stop: 07/22/21 22:03 Ondansetron HCl (Ondansetron Inj 2 Mg/Ml 2 Ml Vial) 4 mg IV Q6H PRN PRN Reason: Nausea Stop: 07/22/21 22:03 Polyethylene Glycol (Polyethylene (Miralax) 17 Gm Pack) 17 gm PO DAILY PRN PRN Reason: Constipation Stop: 07/22/21 22:03 Propranolol HCl (Propranolol Hcl 20 Mg Tab) 40 mg PO BID [facility] Stop: 07/22/21 22:03 Last Admin: 06/24/21 08:48 Dose: 40 mg Documented by: Risperidone (Risperidone 1 Mg Tablet) 1 mg PO HS [facility] Stop: 07/22/21 22:03 Last Admin: 06/23/21 20:09 Dose: 1 mg Documented by: Risperidone (Risperidone 0.5 Mg Tablet) 0.5 mg PO DAILYBD [facility] Stop: 07/23/21 15:29 Last Admin: 06/23/21 18:55 Dose: 0.5 mg Documented by: Tramadol HCl (Tramadol Hcl 50 Mg Tablet) 50 mg PO Q6H PRN PRN Reason: pain Stop: 07/22/21 22:03
--- NOTE | 2021-06-24 17:36 | Discharge Summary ---
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 Of significance patient is immunocompromise in setting of splenectomy. She is fully vaccinated for Covid with last dose in December. Her [id number] tested positive for Covid and she was exposed to him. She developed symptoms yesterday including headache and fever at home. She further complains of body aches, myalgias, nausea, and shortness of breath with exertion. Her T-max at home was 99.9. She denies chills, sweats, lightheadedness, dizziness, chest pain, palpitations, emesis, abdominal pain, diarrhea, dysuria, hematochezia, hematuria. In ED patient remained hemodynamically stable. Her CBC and CMP was generally unremarkable except for thrombocytosis with platelet count of 1031. She did test positive for SARS-CoV-2. Her chest x-ray was negative for acute infection. She was saturating well on room air. In setting of asplenia and moyamoya blood cultures were obtained. She received IV Rocephin to cover for encapsulated organisms. Given underlying ailments it was recommended she be admitted for observation. Of significance patient had recent admission to [facility] from 06/08- 06/14 Secondary to major depressive disorder. Admission Exam Per Admitting Provider Oriented x 3 , not in distress, speaks in sentences with no effort nor accessory muscle use normal rate, regular rhythm, no murmurs clear breath sounds bilaterally non distended, soft, nontender no bipedal edema, erythema, warmth no neuro deficits Principal Diagnosis COVID-19 infection status post vaccination, asplenic without any evidence of other infection, thrombocytosis Discharge Exam Lying in bed comfortably Constitutional well developed, well nourished and + obese; not ill appearing Eyes PERRL, conjunctivae normal, anicteric sclerae ENMT external ear and nose normal, oropharynx normal Neck trachea midline, no thyromegaly Respiratory + cough; no respiratory distress Auscultation: lungs clear to auscultation bilaterally and + diminished lung sounds; no crackles and no wheezes Cardiovascular Rate/Rhythm: regular rate and regular rhythm; not tachycardic Heart Sounds: normal S1 and normal S2; no murmur Extremities: + edema (Trace edema bilaterally) Gastrointestinal (Abdomen) Inspection/Auscultation: normal bowel sounds; abdomen not distended Percussion/Palpation: abdomen soft; abdomen nontender Lymphatic no cervical or axillary lymphadenopathy Discharge Data Allergies Allergy/AdvReac Type Severity Reaction Status Date / Time vancomycin Allergy Mild Red/Itchy Verified 06/22/21 16:49 skin Consultations 06/22/21 17:53 ED Decision to Admit Stat Hospital Course (1) COVID: Asymptomatic Covid 19 infection (2) Acquired asplenia: (3) Thrombocytosis: Secondary to asplenia Level has been improving from 1031 to 887 as of 06/24/2021 Advised to drink more fluid (4) Elevated LFTs: (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 also hx of brock brock Plt persistently elevated 6-800s 1031 today Platelet count has been improving and it is 8087 as of 06/24/2021 Superior mesenteric vein thrombosis/portal vein thrombosis Therapeutic Lovenox 60mg Q12 follows [facility] Will continue Lovenox Elevated LFT no abd pain alt 88, alp 202 likely 2/2 to covid follow-LFTs are better Brock Brock disease Dispo: med tele, d/c to home when stable FULL CODE PCP: Pacheco Discussed with the and she will be discharged home this afternoon Total Time Total Time Spent Total Time Spent (In Minutes): 35 minutes Discharge Plan Discharge Items Patient Disposition: Home - Self-Care Reason For Visit: COVID-19, FEVER, ASPLENIC Discharge Diagnosis: COVID-19 infection status post vaccination, asplenic without any evidence of other infection, thrombocytosis Activity: Resume your previous activity Non-emergency contact: Primary Care Provider Call non-emergency contact if: you have any medication questions and your symptoms worsen Follow-up/Referrals: Babatunde Bergman MD [Primary Care Provider] - (Your doctor's office will call you with an appointment within 7 days) Diet: Regular Addtl Attending Provider Instructions: Please take precautions to avoid falls Please drink more fluid No change in your medications Please maintain home isolation for the next 7 days as per CDC guideline below: Home Isolation COVID-19 Instructions The following information about Home Isolation is from the CDC Website: https://www.cdc.gov/coronavirus/2019-ncov/hcp/rfcrhsav-xgzifpq-tvgywy.html Stay home except to get medical care People who are mildly ill with COVID-19 are able to isolate at home during their illness. You should restrict activities outside your home, except for getting medical care. Do not go to work, school, or public areas. Avoid using public transportation, ride-sharing, or taxis. Separate yourself from other people and animals in your home People: As much as possible, you should stay in a specific room and away from other people in your home. Also, you should use a separate bathroom, if av ailable. Animals: You should restrict contact with pets and other animals while you are sick with COVID-19, just like you would around other people. Although there have not been reports of pets or other animals becoming sick with COVID-19, it is still recommended that people sick with COVID-19 limit contact with animals until more information is known about the virus. When possible, have another member of your household care for your animals while you are sick. If you are sick with COVID-19, avoid contact with your pet, including petting, snuggling, being kissed or licked, and sharing food. If you must care for your pet or be around animals while you are sick, wash your hands before and after you interact with pets and wear a face mask. Call ahead before visiting your doctor If you have a medical appointment, call the healthcare provider and tell them that you have or may have COVID-19. This will help the healthcare providers office take steps to keep other people from getting infected or exposed. Wear a face mask You should wear a face mask when you are around other people (e.g., sharing a room or vehicle) or pets and before you enter a healthcare providers office. If you are not able to wear a face mask (for example, because it causes trouble breathing), then people who live with you should not stay in the same room with you, or they should wear a face mask if they enter your room. Cover your coughs and sneezes Cover your mouth and nose with a tissue when you cough or sneeze. Throw used tissues in a lined trash can. Immediately wash your hands with soap and water for at least 20 seconds or, if soap and water are not available, clean your hands with an alcohol-based hand application software developer that contains at least 60% alcohol. Clean your hands often Wash your hands often with soap and water for at least 20 seconds, especially after blowing your nose, coughing, or sneezing; going to the bathroom; and before eating or preparing food. If soap and water are not readily available, use an alcohol-based hand application software developer with at least 60% alcohol, covering all surfaces of your hands and rubbing them together until they feel dry. Soap and water are the best option if hands are visibly dirty. Avoid touching your eyes, nose, and mouth with unwashed hands. Avoid sharing personal household items You should not share dishes, drinking glasses, cups, eating utensils, towels, or bedding with other people or pets in your home. After using these items, they should be washed thoroughly with soap and water. Clean all high-touch surfaces everyday High touch surfaces include counters, tabletops, doorknobs, bathroom fixtures, toilets, phones, keyboards, tablets, and bedside tables. Also, clean any surfaces that may have blood, stool, or body fluids on them. Use a household cleaning spray or wipe, according to the label instructions. Labels contain instructions for safe and effective use of the cleaning product including precautions you should take when applying the product, such as wearing gloves and making sure you have good ventilation during use of the product. Monitor your symptoms Seek prompt medical attention if your illness is worsening (e.g., difficulty ranulfo athing).Beforeseeking care, call your healthcare provider and tell them that you have, or are being evaluated for, COVID-19. Put on a face mask before you enter the facility. These steps will help the healthcare providers office to keep other people in the office or waiting room from getting infected or exposed. Ask your healthcare provider to call the local or state health department. Persons who are placed under active monitoring or facilitated self- monitoring should follow instructions provided by their local health department or occupational health professionals, as appropriate. When working with your local health department check their available hours. If you have a medical emergency and need to call 911, notify the dispatch personnel that you have, or are being evaluated for COVID-19. If possible, put on a face mask before emergency medical services arrive. Discontinuing home isolation Patients with confirmed COVID-19 should remain under home isolation precautions until the risk of secondary transmission to others is thought to be low. The decision to discontinue home isolation precautions should be made on a [id number] basis, in consultation with healthcare providers and [facility] and [facility] health departments. Please maintain isolation for next 7 days as per CDC guideline below; No change in new medication Pending Studies at Discharge: No Stand-Alone Forms: [facility], Smoking Cessation Medications and DC Order Prescriptions: Continued acetaminophen [Tylenol Extra Strength] 500 mg Tablet 1,000 mg PO Q6H PRN (Reason: Pain) RF: 0 gabapentin 800 mg tablet 800 mg PO TID RF: 0 hydroxyzine pamoate 50 mg capsule 50 mg PO TID PRN (Reason: Anxiety) RF: 0 propranolol 40 mg tablet 40 mg PO BID RF: 0 famotidine 20 mg tablet 20 mg PO BID PRN (Reason: Acid Reflux) RF: 0 benztropine 2 mg tablet 2 mg PO BID RF: 0 duloxetine 30 mg capsule,delayed release(DR/EC) 30 mg PO DAILY RF: 0 duloxetine 60 mg capsule,delayed release(DR/EC) 60 mg PO DAILY RF: 0 dicyclomine 10 mg capsule 10 mg PO QID PRN (Reason: ..) RF: 0 enoxaparin [Lovenox] 60 mg/0.6 mL Syringe 60 mg SUBCUT Q12H RF: 0 tramadol 50 mg Tablet 50 mg PO Q6H PRN (Reason: pain) Qty: 10 RF: 0 risperidone 1 mg Tablet 1 mg PO HS 30 Days Qty: 30 RF: 0 risperidone 0.5 mg Tablet 0.5 mg PO DAILYBD 30 Days Qty: 30 RF: 0 Discharge Orders: Discharge Order (Routine); Ordered 06/24/21 Ordered By: Wellington Black Admission Data Admit Date/Time: 06/22/21 18:11 Attending Provider: Wellington Black Admit Provider: Jorge Ricks Primary Care Provider: Babatunde Bergman Other Providers: Jorge Ricks Other Interventions: Discharge Summary Assessment (RN) Last Done: 06/24/21 14:24
== END 2021-06-24 15:06 | disposition home or self-care (01) ==
LOC: 2W 14:36 → ED 14:36 → SUATTDRO 18:11 → 2W 21:28

== ENCOUNTER 2022-04-04 18:15 | Inpatient (IN) ==
--- NOTE | 2022-04-04 18:35 | Emergency Department Note ---
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 She notes over the past 1 to 2 weeks she is becoming more depressed. She is currently trying to switch meds but is still on her Effexor. Nothing in particular has sparked this. She notes that she is having trouble refraining from killing herself. She does want to come in. called the police to bring her in as she initially wanted to go to work after expressing these thoughts to her and come in afterward. ROS: See above HPI for pertinent positives & negatives. A total of 10 systems reviewed and were otherwise negative. PAST MEDICAL HISTORY:See Below PAST SURGICAL HISTORY:See Below FAMILY HISTORY:See Below SOCIAL HISTORY:See Below HOME MEDICATIONS:See Below ALLERGIES:See Below VITALS:See Below PHYSICAL EXAMINATION: GENERAL: Sitting up in bed, alert, well appearing, well nourished, no distress, non-toxic EYE EXAM: normal conjunctiva. PERRL and EOM's grossly intact. OROPHARYNX: no exudate, no erythema, lips, buccal mucosa, and tongue normal and mucous membranes are moist NECK: supple, no nuchal rigidity, no adenopathy, non-tender LUNGS: Clear to auscultation. Normal chest wall mechanics HEART: no murmurs, S1 normal and S2 normal ABDOMEN: abdomen soft, non-tender, normo-active bowel sounds, no masses, no rebound or guarding. UPPER EXTREMITIES: upper extremities are grossly normal. LOWER EXTREMITIES: No pitting edema. NEURO EXAM: Normal sensorium, cranial nerves II-XII grossly intact, normal speech, no gross weakness of arms, no gross weakness of legs. MEDICAL DECISION MAKING: Patient is a 21-year-old female who presents ER for suicidal ideations with a plan to kill her self. She wants to come in on 201. IV was established blood work was obtained. CBC was unremarkable. BMP with LFTs and TSH was unremarkable as well. INR was slightly low at 1.7. This will need to be followed up on in 2 days but no recent PEs or DVTs. UA was unremarkable. negative. Tox negative. COVID-negative. Patient was updated bedside evaluated by 3 S. and admitted for further work-up. Triage Nursing notes reviewed. Limited review of prior medical records performed Vital Signs: reviewed and remarkable for no significant abnormalities Differential diagnosis: Mood disorder, infection, hypoglycemia, electrolyte abnormalities, cardiac sources, intracerebral event, toxicologic, trauma, neurologic, as well as other pathologies. ER treatment provided: See below Diagnostics interpreted by me: ECG: none Laboratory studies: As stated above and show below. 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 PTSD (post-traumatic stress disorder) Superior mesenteric vein thrombosis Thrombocytosis Surgical History History of splenectomy Family History Denies family history of Coronary heart disease Social History Smoking Status: Never smoker Hx Alcohol Use: No Hx Substance Use: No Preferred Language: Uzbek Communication Ability: Effective Yarn Packer Required: No Beliefs That Will Affect Care: None marital status: Current Living Situation: Significant Other How many Children do You have: 0 Feels Safe at Home: Yes Assistive Devices: Glasses Allergies Allergies Allergy/AdvReac Type Severity Reaction Status Date / Time vancomycin Allergy Intermediate Red/Itchy Verified 03/31/22 19:40 skin Home Meds Home Medications Medication Instructions Recorded Confirmed acetaminophen 500 mg tablet 1,000 mg PO Q6H PRN Pain 03/09/21 04/04/22 (Tylenol Extra Strength) famotidine 20 mg tablet 20 mg PO BID PRN Acid Reflux 03/09/21 04/04/22 gabapentin 800 mg tablet See Rx Instructions .Route .COMPLEX 03/09/21 04/04/22 propranolol 40 mg tablet 40 mg PO BID 03/09/21 04/04/22 dicyclomine 10 mg capsule 10 mg PO QID PRN ABD PAIN 06/22/21 04/04/22 warfarin 5 mg tablet See Rx Instructions .Route .COMPLEX 03/31/22 04/04/22 lurasidone 20 mg tablet (Latuda) 20 mg PO DAILY 04/04/22 04/04/22 Results & Data (ED) Vital Signs Vital Signs - 24 hr 04/04/22 18:06 04/04/22 20:08 Temperature 37.0 C Temperature Source Oral Pulse Rate 78 Pulse Rate [Finger] 67 Respiratory Rate 16 20 Respiratory Effort / Characteristics Non-Labored Non-Labored Spontaneous Respiratory Depth Normal Normal Respiratory Pattern Regular Blood Pressure 107/68 Blood Pressure [Right Arm] 100/53 L Blood Pressure Mean 81 Blood Pressure Mean [Right Arm] 68 Blood Pressure Position Lying Blood Pressure Position [Right Arm] Lying Pulse Oximetry 96 98 Oxygen Delivery Method Room Air Room Air Sepsis Recent Fever Within 48 Hours No Sepsis New/Unexplained Change in Mental Status No Sepsis Action Taken by Nursing No Action Required Laboratory Data Result diagrams: 04/04/22 19:01 04/04/22 19:01 Lab Results 04/04/22 04/04/22 04/04/22 Range/Units 18:20 18:20 18:32 WBC (4.8-10.8) K/ul RBC (3.93-5.22) M/uL Hgb (12.0-16.0) g/dl Hct (34.1-44.9) % MCV (80.0-100.0) fL MCH (25.0-34.0) pg MCHC (32.0-36.0) g/dL RDW Std Deviation (36.4-46.3) fL RDW Coeff of Toni (11.5-14.5) % Plt Count (130-400) K/uL MPV (9.4-12.3) fL Immature Gran % (Auto) % Neut % (Auto) % Lymph % (Auto) % [place] % (Auto) % Eos % (Auto) % Baso % (Auto) % Neut # (Auto) (1.4-6.5) K/uL Lymph # (Auto) (1.2-3.4) K/uL [place] # (Auto) (0.24-0.82) K/uL Eos # (Auto) (0-0.50) K/uL Baso # (Auto) (0-0.2) K/uL Immature Gran # (Auto) (0.00-0.02) K/uL PT (9.0-12.0) Seconds INR (0.9-1.1) Sodium (136-145) mmol/L Potassium (3.5-5.1) mmol/L Chloride (98-107) mmol/L Carbon Dioxide (21-32) mmol/L Anion Gap (3-11) BUN (6-23) mg/dl Creatinine (0.6-1.2) mg/dl Est Cr Clr Drug Dosing Est GFR ( Amer) ml/min Est GFR (Non-Af Amer) ml/min BUN/Creatinine Ratio (10-20) Glucose (70-99(Fasting)) mg/dl Calcium (8.5-10.1) mg/dl Total Bilirubin (0.2-1.0) mg/dl AST (13-39) U/L ALT (7-52) U/L Alkaline Phosphatase (34-104) U/L Total Protein (6.0-8.3) gm/dl Albumin (3.4-5.0) gm/dl Globulin (2.5-4.0) gm/dl Albumin/Globulin Ratio (0.9-2) TSH (0.300-4.500) uIu/ml Urine Color Dark Yellow Urine Appearance Clear (Clear) Urine pH 6.0 (4.5-7.5) Ur Specific [place] 1.026 (1.000-1.030) Urine Protein Trace H (Negative) Urine Glucose (UA) Negative (Negative) Urine Ketones Trace H (Negative) Urine Blood 2+ H (Negative) Urine Nitrite Negative (Negative) Urine Bilirubin Negative (Negative) Urine Urobilinogen Negative (Negative) Ur Leukocyte Esterase Negative (Negative) Urine WBC (Auto) 1-5 (0-5) /hpf Urine RBC (Auto) 0-4 (0-4) /hpf U Hyaline Cast (Auto) 1-5 (0-5) /lpf U Epithel Cells (Auto) >30 H (0-5) /lpf Urine Bacteria (Auto) 1+ H (Negative) POC Ur Test NEG (NEG) Salicylates (3.0-30) mg/dl Urine Opiates Screen Neg (Neg) Ur Methadone, Qual Neg (Neg) Acetaminophen (10-30) ug/ml Urine Barbiturates Neg (Neg) Ur Phencyclidine (PCP) Neg (Neg) U Amphetamin/Meth Scrn Neg (Neg) MDMA (Ecstasy) Screen Pos H (Neg) U Benzodiazepines Scrn Neg (Neg) Ur Cocaine Metabolite Neg (Neg) U Marijuana (THC) Screen Neg (Neg) Ethyl Alcohol mg/dL (<10.0) mg/dl 04/04/22 04/04/22 04/04/22 Range/Units 19:01 19:01 19:01 WBC 10.60 (4.8-10.8) K/ul RBC 4.69 (3.93-5.22) M/uL Hgb 14.0 (12.0-16.0) g/dl Hct 40.5 (34.1-44.9) % MCV 86.4 (80.0-100.0) fL MCH 29.9 (25.0-34.0) pg MCHC 34.6 (32.0-36.0) g/dL RDW Std Deviation 42.4 (36.4-46.3) fL RDW Coeff of Toni 13.6 (11.5-14.5) % Plt Count 593 H (130-400) K/uL MPV 8.8 L (9.4-12.3) fL Immature Gran % (Auto) 0.2 % Neut % (Auto) 44.7 % Lymph % (Auto) 43.5 % [place] % (Auto) 9.5 % Eos % (Auto) 1.5 % Baso % (Auto) 0.6 % Neut # (Auto) 4.74 (1.4-6.5) K/uL Lymph # (Auto) 4.61 H (1.2-3.4) K/uL [place] # (Auto) 1.01 H (0.24-0.82) K/uL Eos # (Auto) 0.16 (0-0.50) K/uL Baso # (Auto) 0.06 (0-0.2) K/uL Immature Gran # (Auto) 0.02 (0.00-0.02) K/uL PT 17.6 H (9.0-12.0) Seconds INR 1.7 H (0.9-1.1) Sodium 138 (136-145) mmol/L Potassium 3.9 (3.5-5.1) mmol/L Chloride 106 (98-107) mmol/L Carbon Dioxide 25 (21-32) mmol/L Anion Gap 7 (3-11) BUN 9 (6-23) mg/dl Creatinine 0.76 (0.6-1.2) mg/dl Est Cr Clr Drug Dosing Not Reportable Est GFR ( Amer) 128.1 ml/min Est GFR (Non-Af Amer) 110.6 ml/min BUN/Creatinine Ratio 11.8 (10-20) Glucose 87 (70-99(Fasting)) mg/dl Calcium 9.1 (8.5-10.1) mg/dl Total Bilirubin 0.6 (0.2-1.0) mg/dl AST 16 (13-39) U/L ALT 25 (7-52) U/L Alkaline Phosphatase 116 H (34-104) U/L Total Protein 7.2 (6.0-8.3) gm/dl Albumin 4.2 (3.4-5.0) gm/dl Globulin 3.0 (2.5-4.0) gm/dl Albumin/Globulin Ratio 1.4 (0.9-2) TSH (0.300-4.500) uIu/ml Urine Color Urine Appearance (Clear) Urine pH (4.5-7.5) Ur Specific [place] (1.000-1.030) Urine Protein (Negative) Urine Glucose (UA) (Negative) Urine Ketones (Negative) Urine Blood (Negative) Urine Nitrite (Negative) Urine Bilirubin (Negative) Urine Urobilinogen (Negative) Ur Leukocyte Esterase (Negative) Urine WBC (Auto) (0-5) /hpf Urine RBC (Auto) (0-4) /hpf U Hyaline Cast (Auto) (0-5) /lpf U Epithel Cells (Auto) (0-5) /lpf Urine Bacteria (Auto) (Negative) POC Ur Test (NEG) Salicylates (3.0-30) mg/dl Urine Opiates Screen (Neg) Ur Methadone, Qual (Neg) Acetaminophen (10-30) ug/ml Urine Barbiturates (Neg) Ur Phencyclidine (PCP) (Neg) U Amphetamin/Meth Scrn (Neg) MDMA (Ecstasy) Screen (Neg) U Benzodiazepines Scrn (Neg) Ur Cocaine Metabolite (Neg) U Marijuana (THC) Screen (Neg) Ethyl Alcohol mg/dL (<10.0) mg/dl 04/04/22 04/04/22 04/04/22 Range/Units 19:01 19:01 19:01 WBC (4.8-10.8) K/ul RBC (3.93-5.22) M/uL Hgb (12.0-16.0) g/dl Hct (34.1-44.9) % MCV (80.0-100.0) fL MCH (25.0-34.0) pg MCHC (32.0-36.0) g/dL RDW Std Deviation (36.4-46.3) fL RDW Coeff of Toni (11.5-14.5) % Plt Count (130-400) K/uL MPV (9.4-12.3) fL Immature Gran % (Auto) % Neut % (Auto) % Lymph % (Auto) % [place] % (Auto) % Eos % (Auto) % Baso % (Auto) % Neut # (Auto) (1.4-6.5) K/uL Lymph # (Auto) (1.2-3.4) K/uL [place] # (Auto) (0.24-0.82) K/uL Eos # (Auto) (0-0.50) K/uL Baso # (Auto) (0-0.2) K/uL Immature Gran # (Auto) (0.00-0.02) K/uL PT (9.0-12.0) Seconds INR (0.9-1.1) Sodium (136-145) mmol/L Potassium (3.5-5.1) mmol/L Chloride (98-107) mmol/L Carbon Dioxide (21-32) mmol/L Anion Gap (3-11) BUN (6-23) mg/dl Creatinine (0.6-1.2) mg/dl Est Cr Clr Drug Dosing Est GFR ( Amer) ml/min Est GFR (Non-Af Amer) ml/min BUN/Creatinine Ratio (10-20) Glucose (70-99(Fasting)) mg/dl Calcium (8.5-10.1) mg/dl Total Bilirubin (0.2-1.0) mg/dl AST (13-39) U/L ALT (7-52) U/L Alkaline Phosphatase (34-104) U/L Total Protein (6.0-8.3) gm/dl Albumin (3.4-5.0) gm/dl Globulin (2.5-4.0) gm/dl Albumin/Globulin Ratio (0.9-2) TSH 3.394 (0.300-4.500) uIu/ml Urine Color Urine Appearance (Clear) Urine pH (4.5-7.5) Ur Specific [place] (1.000-1.030) Urine Protein (Negative) Urine Glucose (UA) (Negative) Urine Ketones (Negative) Urine Blood (Negative) Urine Nitrite (Negative) Urine Bilirubin (Negative) Urine Urobilinogen (Negative) Ur Leukocyte Esterase (Negative) Urine WBC (Auto) (0-5) /hpf Urine RBC (Auto) (0-4) /hpf U Hyaline Cast (Auto) (0-5) /lpf U Epithel Cells (Auto) (0-5) /lpf Urine Bacteria (Auto) (Negative) POC Ur Test (NEG) Salicylates < 3.0 L (3.0-30) mg/dl Urine Opiates Screen (Neg) Ur Methadone, Qual (Neg) Acetaminophen < 3 L (10-30) ug/ml Urine Barbiturates (Neg) Ur Phencyclidine (PCP) (Neg) U Amphetamin/Meth Scrn (Neg) MDMA (Ecstasy) Screen (Neg) U Benzodiazepines Scrn (Neg) Ur Cocaine Metabolite (Neg) U Marijuana (THC) Screen (Neg) Ethyl Alcohol mg/dL < 10.0 (<10.0) mg/dl Administered Medications Dicyclomine HCl (Dicyclomine Hcl 10 Mg Cap) 10 mg PO BID PRN PRN Reason: ABDOMINAL Pain Stop: 05/04/22 21:59 Last Admin: 04/04/22 22:35 Dose: 10 mg Documented By: TK Famotidine (Famotidine 20 Mg Tab) 20 mg PO BID PRN PRN Reason: Stomach pain Stop: 05/04/22 22:14 Last Admin: 04/04/22 22:35 Dose: 20 mg Documented By: TK Discharge Plan Visit Data Chief Complaint: Mental Health Evaluation Stated Complaint: [facility] ED Provider: Enrique Guillen Discharge Problem: Suicidal ideation, Depression, Subtherapeutic international normalized ratio (INR) Patient Disposition: Admitted As Inpatient Discharge Instructions Interventions: ED Discharge Assessment Last Done: 04/04/22 20:35
[2022-04-04 18:53] LABS: Appearance Urine Clear (Clear); Bacteria Urine Automated 1+ (Negative); Bilirubin Urine Negative (Negative); Blood Urine 2+ (Negative); Color Urine Dark Yellow; Epithelial Cell Urine Auto >30 /lpf (0-5); Glucose Urine UA Negative (Negative); Ketones Urine Trace (Negative); Leukocyte Esterase Urine Negative (Negative); Nitrite Urine Negative (Negative); Protein Urine Trace (Negative); RBC Urine Automated 0-4 /hpf (0-4); Specific Gravity Urine 1.026 (1.000-1.030); Urobilinogen Urine Negative (Negative)
[2022-04-04 19:15] LABS: Basophils # (auto) 0.06 K/uL (0-0.2); Basophils % (auto) 0.6 %; Eosinophils # (auto) 0.16 K/uL (0-0.50); Eosinophils % (auto) 1.5 %; Hematocrit (blood only) 40.5 % (34.1-44.9); Immature Granulocytes # (auto) 0.02 K/uL (0.00-0.02); Immature Granulocytes % (auto) 0.2 %; Lymphocytes # (auto) 4.61 K/uL (1.2-3.4); Lymphocytes % (auto) 43.5 %; Mean Corpuscular Hemoglobin 29.9 pg (25.0-34.0); Mean Corpuscular Hgb Conc 34.6 g/dL (32.0-36.0); Mean Corpuscular Volume 86.4 fL (80.0-100.0); Mean Platelet Volume 8.8 fL (9.4-12.3); Monocytes # (auto) 1.01 K/uL (0.24-0.82); Monocytes % (auto) 9.5 %; Neutrophils # (auto) 4.74 K/uL (1.4-6.5); Neutrophils % (auto) 44.7 %; Platelet Count 593 K/uL (130-400); RDW Coefficient of Variation 13.6 % (11.5-14.5); RDW Standard Deviation 42.4 fL (36.4-46.3); Red Blood Count 4.69 M/uL (3.93-5.22)
[2022-04-04 19:24] LABS: Amphetamines+Metham, Urine Neg (Neg); Barbiturates, Urine Neg (Neg); Benzodiazepine, Urine Neg (Neg); Cocaine, Urine Neg (Neg); MDMA (Ecstacy), Urine Pos (Neg); Methadone, Urine Neg (Neg); Opiate, Urine Neg (Neg); Phencyclidine, Urine Neg (Neg)
[2022-04-04 19:25] LABS: INR 1.7 (0.9-1.1); Prothrombin Time 17.6 Seconds (9.0-12.0)
[2022-04-04 19:47] LABS: Acetaminophen < 3 ug/ml (10-30); Salicylate < 3.0 mg/dl (3.0-30)
[2022-04-04 19:48] LABS: Alanine Aminotransferase 25 U/L (7-52); Albumin Globulin Ratio 1.4 (0.9-2); Albumin Level 4.2 gm/dl (3.4-5.0); Alkaline Phosphatase 116 U/L (34-104); Anion Gap 7 (3-11); Aspartate Aminotransferase 16 U/L (13-39); BUN Creatinine Ratio 11.8 (10-20); Bilirubin,Total 0.6 mg/dl (0.2-1.0); Blood Urea Nitrogen 9 mg/dl (6-23); Calcium 9.1 mg/dl (8.5-10.1); Carbon Dioxide 25 mmol/L (21-32); Chloride 106 mmol/L (98-107); Est GFR (African American) 128.1 ml/min; Est GFR (Non-African American) 110.6 ml/min; Glucose 87 mg/dl (70-99(Fasting)); Potassium 3.9 mmol/L (3.5-5.1); Sodium 138 mmol/L (136-145); Total Protein 7.2 gm/dl (6.0-8.3)
[2022-04-04] MEDS ORDERED: ACETAMINOPHEN 325 MG TAB PO PRN (20:45)
[2022-04-04] MEDS ORDERED: MAGNESIUM HYDROXIDE SUSP 30 ML UDC PO PRN (20:45)
[2022-04-04] MEDS ORDERED: SODIUM CHLORIDE 0.65% NA SOLN 45 ML (OCEAN) PRN (20:45)
[2022-04-04] MEDS ORDERED: ALUMINUM/MAGNESIUM SUSP 30 ML UDC PO PRN (20:45)
[2022-04-04] MEDS ORDERED: hydrOXYzine HCl 25 MG TAB PO PRN ×2 (20:45)
[2022-04-04] MEDS ORDERED: BISMUTH SUBSALICYLATE LIQD 236 ML PO PRN (20:45)
[2022-04-04] MEDS ORDERED: DICYCLOMINE HCL 10 MG CAP PO PRN (22:00)
[2022-04-04] MEDS ORDERED: FAMOTIDINE 20 MG TAB PO PRN (22:02)
--- NOTE | 2022-04-05 14:27 | History & Physical ---
Date of Service April 05, 2022 Impression / Recommendations Impression The patient is a 21-year-old woman has a history of MDD with psychotic features, PTSD, Brock brock disease, superior mesenteric venous thrombus, admitted for worsening depression and SI with plan of slitting her wrists in the context of recent transitions and care providers due to change in insurance and medication adjustments as well as worsening restrictive eating disorder. Diagnostically consistent with major depressive disorder and restrictive eating disorder. The patient is deemed unstable and requires psychiatric hospitalization for diagnostic clarification, safety and stabilization, medication management and development of further coping skills. Discussed medication treatment options in detail. Discussed risks, benefits and alternatives including SSRI/SNRI/mirtazapine/Latuda. Patient would like to continue with and consented to Latuda for depression. Reviewed side effects including but not limited to: movement (TD, NMS), cardiac (QTc prolongation), and metabolic (stroke, insulin resistance) and necessity for fasting lipid and glucose labwork and AIMS done with score of 0. Reviewed side effects of gabapentin including dizziness, she would like to continue with taper of this. She also consented to start mirtazapine to help with sleep and appetite and mood-reviewed side effects including but not limited to fatigue and increased appetite. MNPR due to asplenia with increased infection risk and other medical co- morbidities with increased bleeding risk on coumadin (1) MDD (major depressive disorder), recurrent episode, severe: (2) Suicidal ideation: (3) PTSD (post-traumatic stress disorder): (4) Eating disorder, unspecified: (5) Acquired asplenia: (6) Current use of senior care anticoagulation: (7) Elevated platelet count: (8) Superior mesenteric vein thrombosis: (9) Brock brock disease: Plan 04/05/22: The patient was admitted to the [facility] ([facility] mental [facility] unit) on q15 min checks (behavioral with suicide precautions) for safety. The patient will participate in group, recreational, and milieu therapies and will be offered additional individual and family sessions as clinically appropriate. -Fasting lipid panel qAM -Latuda 20mg qdinner -Warfarin -Gabapentin 600mg qd with plan for ongoing taper Inventory Assets Strengths: supportive and in-laws, employed, good rapport with PCP Needs: safety and stabilization, medication adjustment, additional coping skills, incr eased outpatient services Suicide Risk Level Suicide Risk Level Comments: High-Moderate due to severe depression with SI with plan prior to admission but feels safe in the hospital, able to safety contract and agrees to let nursing/staff know should they develop plan, intent or feel unable to remain safe. Risk Factors Assessment : Yes Do You Have Access To A Gun?: No Health Problems: Yes Mental Health Diagnoses: Yes Previous Attempt: Yes Previous Psychiatric Hospitalization: Yes Hopelessness: Yes Protective Factors Assessment : Yes Employed: Yes ([employer]) Stable Relationships: Yes Supportive Family: Yes Good Rapport with Provider: Yes Psychiatric History Identifying Data MAKENZIE COSTA is a 21-year-old woman who currently lives in [place] with her and his extended family, has a history of MDD with psychotic features, PTSD, Brock brock disease, superior mesenteric venous thrombus , and was admitted on 04/04/22 20:46 on a 201 voluntary commitment for SI with plan of slitting her wrists. Chief Complaint "The depression got really bad". History of Present Illness Makenzie presents for psychiatric admission for worsening depression and suicidal ideation with plans of slitting her wrists. He states that her depression suddenly worsened significantly on Saturday afternoon, 5 days ago, and by Saturday evening she was having intense suicidal ideation with thoughts of slitting her wrist. She states that the suicidal ideation got "pretty bad" to the point that she did not feel she would be able to remain safe. She told her that she was having these suicidal thoughts but that she still wanted to go to work he was very concerned for her safety and thus called police who then brought her to the emergency department where she agreed to voluntary treatment. She notes no specific recent stressors did change insurance after she started a new job and has had to switch providers resulting in no current therapist and switching between primary care doctors. She had been quite stable on Effexor 225 mg and recently due to her worsening depression her primary care provider had increased the dose to 150 mg twice a day. However her depression continued to worsen and so they tapered her off the Effexor and started Latuda but due to issues with insurance prior authorization she was not able to pick this up until yesterday. Her primary care doctor has also been tapering her gabapentin, which she states was started years ago for mood, due to ineffectiveness and she continues to use hydroxyzine for anxiety but feels that this is not helpful. She endorses depressive symptoms including tearfulness, anhedonia, decreased motivation, self-guilt, helplessness, hopelessness, decreased energy, decreased appetite, and intermittent sleep. She continues to have suicidal ideation with thoughts of cutting her wrists. She also endorses symptoms of anxiety including generalized worries and easily overwhelmed. She denies any symptoms of psychosis. She endorses ongoing self-harm via scratching her wrists. She notes that her eating disorder has gotten worse recently with increased restriction over the last few months but that she also has a low appetite due to depression. States she continues to eat every day but some days skips lunch. Psychiatric ROS notable for no current nor history of symptoms of sarmad, history of command auditory hallucinations in the context of worsening depression during her hospitalization in May 2021, hx PTSD, hx restrictive eating disorder. Past Psychiatric History Current Psychiatric Diagnosis: MDD w/ SI. Outpatient Services: Between therapists at [facility], no current psychiatrist due to a change in her insurance Previous Psych Admissions: Multiple most recently at [facility] in May 2021, previously at the [facility] in early 2020 and [facility] in 2019 status post overdose Do You Have Access To A Gun?: No History of Previous Suicide Attempt: Yes Describe Attempts in the Past: Overdose of prescription sleeping pills in 2020 Past Medication Trials: History of fluoxetine, Effexor, mom Haldol, risperidone, mirtazapine she states she has also tried Lexapro, sertraline Past Head Trauma/Neuro History History of Concussion/Seizure: No Allergies Allergy/AdvReac Type Severity Reaction Status Date / Time vancomycin Allergy Intermediate Red/Itchy Verified 03/31/22 19:40 skin Home Medications Medication Instructions Recorded Confirmed Type acetaminophen 500 mg tablet 1,000 mg PO Q6H PRN Pain 03/09/21 04/04/22 History (Tylenol Extra Strength) famotidine 20 mg tablet 20 mg PO BID PRN Acid Reflux 03/09/21 04/04/22 History gabapentin 800 mg tablet See Rx Instructions .Route .COMPLEX 03/09/21 04/04/22 History propranolol 40 mg tablet 40 mg PO BID 03/09/21 04/04/22 History dicyclomine 10 mg capsule 10 mg PO QID PRN ABD PAIN 06/22/21 04/04/22 History warfarin 5 mg tablet See Rx Instructions .Route .COMPLEX 03/31/22 04/04/22 History lurasidone 20 mg tablet (Latuda) 20 mg PO DAILY 04/04/22 04/04/22 History Family History Family History of: Doesn't Know Alcohol History Hx of Alcohol Use Over the Past 12 Months: Yes (a few drinks, a few times a month, a few weeks ago.) AUDIT Total Score: 2 Smoking Use Have You Smoked or Used Tobacco Products in the Last 30 Days: No Smoking Status: Never smoker Substance History Hx of Prescription Med Misuse Over the Past 12 Months: No Hx of Over the Counter Med Misuse Over the Past 12 Months: No Hx of Inhalent Misuse Over the Past 12 Months: No Hx of Organic Substance Use Over the Past 12 Months: No Hx of Illegal Substances/Street Drug Use Over Past 12 Months: No Problems as a Result of Past Substance Use: None Identified Personal History Living Arrangements: Apartment (Lives with and [id number] and 's grandmother) Childhood: Has a brother and sister but is not close with either of them Highest Grade Completed: Some College 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) Marital Status: Beliefs That Will Affect Care: None Current Legal Problems: No Hx Legal Problems: No Hx Traumatic Life Events: Yes Patient History Medical History (Updated 04/05/22 @ 17:03 by Alma Rosa Mendez MD) Asplenia Eating disorder, unspecified Intermittent asthma Major depressive disorder with psychotic 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 PTSD (post-traumatic stress disorder) Superior mesenteric vein thrombosis Thrombocytosis Surgical History History of splenectomy Family History Denies family history of Coronary heart disease Social History Smoking Status: Never smoker Hx Alcohol Use: No Hx Substance Use: No Preferred Language: Portuguese Communication Ability: Effective 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 Assisted Living Required: No Beliefs That Will Affect Care: None marital status: Current Living Situation: Significant Other How many Children do You have: 0 Feels Safe at Home: Yes Assistive Devices: Glasses Review of Systems Review of Systems: All systems reviewed & are unremarkable except as noted in HPI & below Physical Exam Psychiatric: Orientation: alert and oriented x 3 Apperance: appropriately dressed and appropriately groomed Eye Contact: good eye contact Motor Behavior: no abnormal motor movements Speech: normal rate/rhythm/volume of speech Affect: + flat affect Mood: + depressed mood and + anxious mood Thought Process: goal directed thought process and + concrete thought process Thought Content: reality based without delusions Suicidal Thoughts: denies suicidal intent; + reports suicidal thoughts and + reports suicidal plan (to cut Wrists if outside the hospital ) Homicidal Thoughts: denies homicidal thoughts Hallucinations: no auditory hallucinations and no visual hallucinations Cognition: recent memory grossly intact, remote memory grossly intact, attention grossly intact and language grossly intact Estimated Intelligence: consistent with education level Insight: + fair insight Judgement: + limited judgement Vital Signs (Past 24 Hours): Last Vital Signs Temp 36.9 C 04/05/22 06:00 Pulse 77 04/05/22 06:43 Resp 16 04/05/22 06:00 BP 97/67 L 04/05/22 06:43 Pulse Ox 98 04/05/22 06:00 O2 Del Method 04/05/22 06:00 Exam Statement: A physical exam was performed in the ED by Dr. Guillen for the purposes of medical clearance. I accept that physical as correct and adequate for the purposes of the inpatient physical exam. Results & Data ([facility]) Laboratory Results Laboratory Results - last 24 hr 04/04/22 04/04/22 04/04/22 18:20 18:20 18:20 WBC RBC Hgb Hct MCV MCH MCHC RDW Std Deviation RDW Coeff of Toni Plt Count MPV Immature Gran % (Auto) Neut % (Auto) Lymph % (Auto) [place] % (Auto) Eos % (Auto) Baso % (Auto) Neut # (Auto) Lymph # (Auto) [place] # (Auto) Eos # (Auto) Baso # (Auto) Immature Gran # (Auto) PT INR Sodium Potassium Chloride Carbon Dioxide Anion Gap BUN Creatinine Est Cr Clr Drug Dosing Est GFR ( Amer) Est GFR (Non-Af Amer) BUN/Creatinine Ratio Glucose Calcium Total Bilirubin AST ALT Alkaline Phosphatase Total Protein Albumin Globulin Albumin/Globulin Ratio TSH Urine Color Dark Yellow Urine Appearance Clear Urine pH 6.0 Ur Specific [place] 1.026 Urine Protein Trace H Urine Glucose (UA) Negative Urine Ketones Trace H Urine Blood 2+ H Urine Nitrite Negative Urine Bilirubin Negative Urine Urobilinogen Negative Ur Leukocyte Esterase Negative Urine WBC (Auto) 1-5 Urine RBC (Auto) 0-4 U Hyaline Cast (Auto) 1-5 U Epithel Cells (Auto) >30 H Urine Bacteria (Auto) 1+ H POC Ur Test Salicylates Urine Opiates Screen Neg Ur Methadone, Qual Neg Acetaminophen Urine Barbiturates Neg Ur Phencyclidine (PCP) Neg U Amphetamin/Meth Scrn Neg Urine MDEA Pending MDMA (Ecstasy) Screen Pos H MDMA Pending Urine MDMA Pending U Benzodiazepines Scrn Neg Ur Cocaine Metabolite Neg U Marijuana (THC) Screen Neg Ethyl Alcohol mg/dL SARS-CoV-2, RNA, NAAT 04/04/22 04/04/22 04/04/22 18:32 19:01 19:01 WBC 10.60 RBC 4.69 Hgb 14.0 Hct 40.5 MCV 86.4 MCH 29.9 MCHC 34.6 RDW Std Deviation 42.4 RDW Coeff of Toni 13.6 Plt Count 593 H MPV 8.8 L Immature Gran % (Auto) 0.2 Neut % (Auto) 44.7 Lymph % (Auto) 43.5 [place] % (Auto) 9.5 Eos % (Auto) 1.5 Baso % (Auto) 0.6 Neut # (Auto) 4.74 Lymph # (Auto) 4.61 H [place] # (Auto) 1.01 H Eos # (Auto) 0.16 Baso # (Auto) 0.06 Immature Gran # (Auto) 0.02 PT 17.6 H INR 1.7 H Sodium Potassium Chloride Carbon Dioxide Anion Gap BUN Creatinine Est Cr Clr Drug Dosing Est GFR ( Amer) Est GFR (Non-Af Amer) BUN/Creatinine Ratio Glucose Calcium Total Bilirubin AST ALT Alkaline Phosphatase Total Protein Albumin Globulin Albumin/Globulin Ratio TSH Urine Color Urine Appearance Urine pH Ur Specific [place] Urine Protein Urine Glucose (UA) Urine Ketones Urine Blood Urine Nitrite Urine Bilirubin Urine Urobilinogen Ur Leukocyte Esterase Urine WBC (Auto) Urine RBC (Auto) U Hyaline Cast (Auto) U Epithel Cells (Auto) Urine Bacteria (Auto) POC Ur Test NEG Salicylates Urine Opiates Screen Ur Methadone, Qual Acetaminophen Urine Barbiturates Ur Phencyclidine (PCP) U Amphetamin/Meth Scrn Urine MDEA MDMA (Ecstasy) Screen MDMA Urine MDMA U Benzodiazepines Scrn Ur Cocaine Metabolite U Marijuana (THC) Screen Ethyl Alcohol mg/dL SARS-CoV-2, RNA, NAAT 04/04/22 04/04/22 04/04/22 19:01 19:01 19:01 WBC RBC Hgb Hct MCV MCH MCHC RDW Std Deviation RDW Coeff of Toni Plt Count MPV Immature Gran % (Auto) Neut % (Auto) Lymph % (Auto) [place] % (Auto) Eos % (Auto) Baso % (Auto) Neut # (Auto) Lymph # (Auto) [place] # (Auto) Eos # (Auto) Baso # (Auto) Immature Gran # (Auto) PT INR Sodium 138 Potassium 3.9 Chloride 106 Carbon Dioxide 25 Anion Gap 7 BUN 9 Creatinine 0.76 Est Cr Clr Drug Dosing Not Reportable Est GFR ( Amer) 128.1 Est GFR (Non-Af Amer) 110.6 BUN/Creatinine Ratio 11.8 Glucose 87 Calcium 9.1 Total Bilirubin 0.6 AST 16 ALT 25 Alkaline Phosphatase 116 H Total Protein 7.2 Albumin 4.2 Globulin 3.0 Albumin/Globulin Ratio 1.4 TSH 3.394 Urine Color Urine Appearance Urine pH Ur Specific [place] Urine Protein Urine Glucose (UA) Urine Ketones Urine Blood Urine Nitrite Urine Bilirubin Urine Urobilinogen Ur Leukocyte Esterase Urine WBC (Auto) Urine RBC (Auto) U Hyaline Cast (Auto) U Epithel Cells (Auto) Urine Bacteria (Auto) POC Ur Test Salicylates < 3.0 L Urine Opiates Screen Ur Methadone, Qual Acetaminophen < 3 L Urine Barbiturates Ur Phencyclidine (PCP) U Amphetamin/Meth Scrn Urine MDEA MDMA (Ecstasy) Screen MDMA Urine MDMA U Benzodiazepines Scrn Ur Cocaine Metabolite U Marijuana (THC) Screen Ethyl Alcohol mg/dL SARS-CoV-2, RNA, NAAT 04/04/22 04/04/22 19:01 Unknown WBC RBC Hgb Hct MCV MCH MCHC RDW Std Deviation RDW Coeff of Toni Plt Count MPV Immature Gran % (Auto) Neut % (Auto) Lymph % (Auto) [place] % (Auto) Eos % (Auto) Baso % (Auto) Neut # (Auto) Lymph # (Auto) [place] # (Auto) Eos # (Auto) Baso # (Auto) Immature Gran # (Auto) PT INR Sodium Potassium Chloride Carbon Dioxide Anion Gap BUN Creatinine Est Cr Clr Drug Dosing Est GFR ( Amer) Est GFR (Non-Af Amer) BUN/Creatinine Ratio Glucose Calcium Total Bilirubin AST ALT Alkaline Phosphatase Total Protein Albumin Globulin Albumin/Globulin Ratio TSH Urine Color Urine Appearance Urine pH Ur Specific [place] Urine Protein Urine Glucose (UA) Urine Ketones Urine Blood Urine Nitrite Urine Bilirubin Urine Urobilinogen Ur Leukocyte Esterase Urine WBC (Auto) Urine RBC (Auto) U Hyaline Cast (Auto) U Epithel Cells (Auto) Urine Bacteria (Auto) POC Ur Test Salicylates Urine Opiates Screen Ur Methadone, Qual Acetaminophen Urine Barbiturates Ur Phencyclidine (PCP) U Amphetamin/Meth Scrn Urine MDEA MDMA (Ecstasy) Screen MDMA Urine MDMA U Benzodiazepines Scrn Ur Cocaine Metabolite U Marijuana (THC) Screen Ethyl Alcohol mg/dL < 10.0 SARS-CoV-2, RNA, NAAT NEGATIVE Current Inpatient Medications Current Inpatient Medications: Current Inpatient Medications Acetaminophen (Acetaminophen 325 Mg Tab) 650 mg PO Q4H PRN PRN Reason: Headache or Minor Fever Stop: 05/04/22 20:44 Al Hydrox/Mg Hydrox/Simethicone (Aluminum/Magnesium Susp 30 Ml Udc) 30 ml PO Q4H PRN PRN Reason: GI Upset Stop: 05/04/22 20:44 Bismuth Subsalicylate (Bismuth Subsalicylate Liqd 236 Ml) 15 ml PO PRN PRN PRN Reason: Loose Stool Stop: 05/04/22 20:44 Dicyclomine HCl (Dicyclomine Hcl 10 Mg Cap) 10 mg PO BID PRN PRN Reason: ABDOMINAL Pain Stop: 05/04/22 21:59 Last Admin: 04/04/22 22:35 Dose: 10 mg Famotidine (Famotidine 20 Mg Tab) 20 mg PO BID PRN PRN Reason: Stomach pain Stop: 05/04/22 22:14 Last Admin: 04/04/22 22:35 Dose: 20 mg Hydroxyzine HCl (Hydroxyzine Hcl 25 Mg Tab) 50 mg PO HSZ PRN PRN Reason: Insomnia Stop: 05/04/22 20:44 Hydroxyzine HCl (Hydroxyzine Hcl 25 Mg Tab) 25 mg PO Q4H PRN PRN Reason: Anxiety Stop: 05/04/22 20:44 Magnesium Hydroxide (Magnesium Hydroxide Susp 30 Ml Udc) 30 ml PO DAILY PRN PRN Reason: Constipation Stop: 05/04/22 20:44 Sodium Chloride (Sodium Chloride 0.65% Na Soln 45 Ml ([place])) 1 - 2 sprays NA P RN PRN PRN Reason: Nasal Dryness/Congestion Stop: 05/04/22 20:44
[2022-04-05] MEDS ORDERED: FAMOTIDINE 20 MG TAB PO PRN (17:05)
[2022-04-05] MEDS ORDERED: DICYCLOMINE HCL 10 MG CAP PO PRN (17:05)
[2022-04-05] MEDS ORDERED: WARFARIN SOD 5 MG TAB PO SCH (17:15)
[2022-04-05] MEDS: LURASIDONE HCL 40 MG TAB PO SCH (18:31)
[2022-04-05] MEDS: WARFARIN SOD 5 MG TAB PO SCH (18:32)
[2022-04-05] MEDS: PROPRANOLOL HCL 20 MG TAB PO SCH (20:23)
[2022-04-05] MEDS ORDERED: LORazepam 0.5 MG TAB PO PRN (21:15)
[2022-04-05] MEDS ORDERED: MIRTAZAPINE TAB 15 MG TAB PO SCH (22:00)
[2022-04-06 09:04] LABS: INR 1.5 (0.9-1.1); Prothrombin Time 15.7 Seconds (9.0-12.0)
[2022-04-06] MEDS ORDERED: LORazepam 0.5 MG TAB PO PRN (09:07)
[2022-04-06 09:13] LABS: Chol HDL Ratio 6.6 (0-5)
[2022-04-06] MEDS: GABAPENTIN 600 MG TAB PO SCH (09:41)
[2022-04-06] MEDS: PROPRANOLOL HCL 20 MG TAB PO SCH ×2 (09:41→22:04)
[2022-04-06] MEDS ORDERED: WARFARIN SOD 2.5 MG TAB PO SCH (16:00)
--- NOTE | 2022-04-06 16:07 | Psychiatric Progress Note ---
Date of Service April 06, 2022 Impression / Recommendations Impression The patient is a 21-year-old woman has a history of MDD with psychotic features, PTSD, Brock brock disease, superior mesenteric venous thrombus, admitted for worsening depression and SI with plan of slitting her wrists in the context of recent transitions and care providers due to change in insurance and medication adjustments as well as worsening restrictive eating disorder. Diagnostically consistent with major depressive disorder and restrictive eating disorder. The patient is deemed unstable and requires psychiatric hospitalization for diagnostic clarification, safety and stabilization, medication management and development of further coping skills. MNPR due to asplenia with increased infection risk and other medical co- morbidities with increased bleeding risk on coumadin 04/06/22: Reviewed fasting glucose and lipid panel which was normal with exception of very low HDL. Discussed trying to increase exercise to help with HDL and mood/anxiety management benefits. Will discontinue mirtazapine as she does not want to continue with this as she finds it unhelpful and is not interested in a dose adjustment. Discussed medication treatment options for sleep and mood to work with kalee for augmentation for depression and anxiety. Discussed risks, benefits and alternatives including SSRI, SNRI, trazodone, vs alternative antipsychotics vs buspar vs gabapentin adjustments vs lamictal. Patient would like to start and consented to trazodone for sleep and fluvoxamine for depression and anxiety. Reviewed side effects including but not limited to: GI, MERCADO, sexual side effects, and counseled on black box warning of potential for emergence of or increased SI and need to let staff know should this occur or should they feel unsafe. Also discussed importance of seeking emergency care following discharge if this side effect occurs in the future as well as syncope and fatigue with trazodone. Continued to encourage increased po intake to help with mood. (1) MDD (major depressive disorder), recurrent episode, severe: (2) Suicidal ideation: (3) PTSD (post-traumatic stress disorder): (4) Eating disorder, unspecified: (5) Acquired asplenia: (6) Current use of watermaster anticoagulation: (7) Elevated platelet count: (8) Superior mesenteric vein thrombosis: (9) Brock brock disease: Plan 04/06/22: Start fluvoxamine 50mg qd. Discontinued mirtazapine. Start trazodone 50mg qhs prn. Added ativan prn before meals to help with distress related to eating or for intensified SI. 04/05/22: The patient was admitted to the [facility] ([facility] unit) on q15 min checks (behavioral with suicide precautions) for safety. The patient will participate in group, recreational, and milieu therapies and will be offered additional individual and family sessions as clinically appropriate. -Fasting lipid panel qAM -Latuda 20mg qdinner -Warfarin -Gabapentin 600mg qd with plan for ongoing taper Inventory Assets Strengths: supportive and in-laws, employed, good rapport with PCP Needs: safety and stabilization, medication adjustment, additional coping skills, increased outpatient services Suicide Risk Level Suicide Risk Level Comments: High-Moderate due to severe depression with SI with plan prior to admission but feels safe in the hospital, able to safety contract and agrees to let nursing/staff know should they develop plan, intent or feel unable to remain safe. Domstrated she can alert nursing if she feels unsafe and felt support was helpful. Risk Factors Assessment : Yes Do You Have Access To A Gun?: No Health Problems: Yes Mental Health Diagnoses: Yes Previous Attempt: Yes Previous Psychiatric Hospitalization: Yes Hopelessness: Yes Protective Factors Assessment : Yes Employed: Yes ([employer]) Stable Relationships: Yes Supportive Family: Yes Good Rapport with Provider: Yes Interval History Identifying Information MAKENZIE COSTA is a 21-year-old woman who currently lives in [place] with her and his extended family, has a history of MDD with psychotic features, PTSD, Brock brock disease, superior mesenteric venous thrombus , and was admitted on 04/04/22 20:46 on a 201 voluntary commitment for SI with plan of slitting her wrists. Chief Complaint "The mirtazapine doesn't work, I need something for anxiety". Review of Systems Sleep Information Total Hours of Sleep: 7 Meal Information Percent Meal Consumed - Breakfast: 0 Percent Meal Consumed - Lunch: 0 Percent Meal Consumed - Dinner: 0 Subjective Subjective Patient was seen & assessed and interval progress reviewed with treatment team nursing and social work. Last night she alerted nursing when her suicidal id eation intensified and was offered as medication early and support was then able to fall asleep. When nursing did safety checks yesterday night there was a pillowcase on the floor next to her bed and she was asked about this though denied that it was at all related to suicidal ideation or self-harm but rather she prefers to sleep without a pillowcase. She did not eat anything yesterday and remained isolative to her room. Today she was isolative to her room all day laying in bed at times pulling the covers over her head when nursing tried to engage with her. Given limited p.o. intake and her history of eating disorder ordered a safe tray and she was provided food in her room at which point she then did consume a large portion of her lunch and was offered and drink a soda. This afternoon her mood is quite irritable and she notes that the suicidal ideation remains "they are still bad" and that she continues to think about possibly trying to cut her wrist but states she feels safe in the hospital as here there is nothing she can use to do this and continues to agree to let nursing know like she did last night if the thoughts intensify. She denies any self harming via scratching today. She continues to endorse high levels of anxiety for which she feels Vistaril is not helpful. Reviewed mirtazapine which she states "does not work" and that she does not want to continue trying this. Reviewed if any other medications have worked well for sleep in the past and she noted that trazodone was helpful so we will start this. Discussed potential medications to help with her mood see assessment below. Reviewed importance of attending groups to learn additional coping skills and strategies. Physical Exam Psychiatric Orientation: alert and oriented x 3 Apperance: appropriately dressed and appropriately groomed Eye Contact: good eye contact Motor Behavior: no abnormal motor movements Speech: normal rate/rhythm/volume of speech Affect: + flat affect and + irritable affect Mood: + depressed mood, + anxious mood and + irritable mood Thought Process: goal directed thought process and + concrete thought process Thought Content: reality based without delusions Suicidal Thoughts: denies suicidal intent; + reports suicidal thoughts and + reports suicidal plan (to cut Wrists if outside the hospital ) Homicidal Thoughts: denies homicidal thoughts Hallucinations: no auditory hallucinations and no visual hallucinations Cognition: recent memory grossly intact, remote memory grossly intact, attention grossly intact and language grossly intact Estimated Intelligence: consistent with education level Insight: + limited insight Judgement: + limited judgement Vital Signs (Past 24 Hours) Last Vital Signs Temp 37.0 C 04/06/22 06:00 Pulse 76 04/06/22 06:31 Resp 16 04/06/22 06:00 BP 98/68 L 04/06/22 09:40 Pulse Ox 98 04/06/22 06:00 O2 Del Method 04/06/22 06:00 Results & Data ([facility]) Laboratory Results Laboratory Results - last 24 hr 04/06/22 04/06/22 08:10 08:10 PT 15.7 H INR 1.5 H Fasting Glucose 70 Triglycerides 116 Cholesterol 171 LDL Cholesterol, Calc 122 VLDL Cholesterol, Calc 23 HDL Cholesterol 26 Cholesterol/HDL Ratio 6.6 H Current Inpatient Medications Current Inpatient Medications: Current Inpatient Medications Acetaminophen (Acetaminophen 500 Mg Tab) 1,000 mg PO Q6H PRN PRN Reason: Pain Stop: 05/05/22 17:04 Al Hydrox/Mg Hydrox/Simethicone (Aluminum/Magnesium Susp 30 Ml Udc) 30 ml PO Q4H PRN PRN Reason: GI Upset Stop: 05/04/22 20:44 Bismuth Subsalicylate (Bismuth Subsalicylate Liqd 236 Ml) 15 ml PO PRN PRN PRN Reason: Loose Stool Stop: 05/04/22 20:44 Dicyclomine HCl (Dicyclomine Hcl 10 Mg Cap) 10 mg PO QID PRN PRN Reason: ABD PAIN Stop: 05/05/22 17:04 Famotidine (Famotidine 20 Mg Tab) 20 mg PO BID PRN PRN Reason: Acid Reflux Stop: 05/05/22 17:04 Gabapentin (Gabapentin 600 Mg Tab) 600 mg PO QAM RENU Stop: 05/06/22 08:59 Last Admin: 04/06/22 09:41 Dose: 600 mg Hydroxyzine HCl (Hydroxyzine Hcl 25 Mg Tab) 50 mg PO HSZ PRN PRN Reason: Insomnia Stop: 05/04/22 20:44 Hydroxyzine HCl (Hydroxyzine Hcl 25 Mg Tab) 25 mg PO Q4H PRN PRN Reason: Anxiety Stop: 05/04/22 20:44 Lorazepam (Lorazepam 0.5 Mg Tab) 0.5 mg PO BID PRN PRN Reason: SI/distress before meals Stop: 05/05/22 21:14 Lurasidone HCl (Lurasidone Hcl 40 Mg Tab) 20 mg PO DAILYBD RENU Stop: 05/05/22 17:14 Last Admin: 04/05/22 18:31 Dose: 20 mg Magnesium Hydroxide (Magnesium Hydroxide Susp 30 Ml Udc) 30 ml PO DAILY PRN PRN Reason: Constipation Stop: 05/04/22 20:44 Mirtazapine (Mirtazapine Tab 15 Mg Tab) 7.5 mg PO HS [facility] Stop: 05/05/22 21:59 Last Admin: 04/05/22 20:20 Dose: 7.5 mg Olanzapine (Olanzapine 2.5 Mg Tab) 2.5 mg PO BID PRN PRN Reason: Anxiety/Agitation Stop: 05/06/22 08:59 Propranolol HCl (Propranolol Hcl 20 Mg Tab) 40 mg PO BID [facility] Stop: 05/05/22 20:59 Last Admin: 04/06/22 09:41 Dose: Not Given Sodium Chloride (Sodium Chloride 0.65% Na Soln 45 Ml ([place])) 1 - 2 sprays NA PRN PRN PRN Reason: Nasal Dryness/Congestion Stop: 05/04/22 20:44 Warfarin Sodium (Warfarin Sod 5 Mg Tab) 5 mg PO [id number] [facility] Stop: 05/05/22 17:29 Last Admin: 04/05/22 18:32 Dose: 5 mg Warfarin Sodium (Warfarin Sod 2.5 Mg Tab) 2.5 mg PO [email or web address] [facility] Stop: 05/06/22 15:59 Mental Health & Subst Abuse Tx Therapist Name of Therapist: Susan Mac. Post Discharge Appointments Primary Care Physician Name Of Family Doctor: Kinsey Chaparro PA-C
[2022-04-06] MEDS: LURASIDONE HCL 40 MG TAB PO SCH (17:35)
[2022-04-06] MEDS: traZODone HCL 50 MG TAB PO PRN (22:09)
[2022-04-07 08:22] LABS: INR 1.7 (0.9-1.1); Prothrombin Time 17.4 Seconds (9.0-12.0)
[2022-04-07] MEDS: fluvoxaMINE MALEATE 50 MG TAB PO SCH (08:57)
[2022-04-07] MEDS: GABAPENTIN 600 MG TAB PO SCH (08:57)
[2022-04-07] MEDS: PROPRANOLOL HCL 20 MG TAB PO SCH ×2 (08:58→21:39)
--- NOTE | 2022-04-07 13:42 | Psychiatric Progress Note ---
Date of Service April 07, 2022 Impression / Recommendations Impression The patient is a 21-year-old woman has a history of MDD with psychotic features, PTSD, Brock brock disease, superior mesenteric venous thrombus, admitted for worsening depression and SI with plan of slitting her wrists in the context of recent transitions and care providers due to change in insurance and medication adjustments as well as worsening restrictive eating disorder. Diagnostically consistent with major depressive disorder and restrictive eating disorder. The patient is deemed unstable and requires psychiatric hospitalization for diagnostic clarification, safety and stabilization, medication management and development of further coping skills. MNPR due to asplenia with increased infection risk and other medical co- morbidities with increased bleeding risk on coumadin 04/07/22: as per Dr. Mendez above, minimal change. 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 Confirm target INR and frequency of draws. 04/06/22: Start fluvoxamine 50mg qd. Discontinued mirtazapine. Start trazodone 50mg qhs prn. Added ativan prn before meals to help with distress related to eating or for intensified SI. 04/05/22: The patient was admitted to the [facility] ([facility] health unit) on q15 min checks (behavioral with suicide precautions) for safety. The patient will participate in group, recreational, and milieu therapies and will be offered additional individual and family sessions as clinically appropriate. -Fasting lipid panel qAM -Latuda 20mg qdinner -Warfarin -Gabapentin 600mg qd with plan for ongoing taper Inventory Assets Strengths: supportive and in-laws, employed, good rapport with PCP Needs: safety and stabilization, medication adjustment, additional coping skills, increased outpatient services Suicide Risk Level Suicide Risk Level Comments: High-Moderate due to severe depression with SI with plan prior to admission but feels safe in the hospital, able to safety contract and agrees to let nursing/staff know should they develop plan, intent or feel unable to remain safe. Domstrated she can alert nursing if she feels unsafe and felt support was helpful. Risk Factors Assessment : Yes Do You Have Access To A Gun?: No Health Problems: Yes Mental Health Diagnoses: Yes Previous Attempt: Yes Previous Psychiatric Hospitalization: Yes Hopelessness: Yes Protective Factors Assessment : Yes Employed: Yes ([place]) Stable Relationships: Yes Supportive Family: Yes Good Rapport with Provider: Yes Interval History Identifying Information MAKENZIE COSTA is a 21-year-old woman who currently lives in [place] with her and his extended family, has a history of MDD with psychotic features, PTSD, Brock brock disease, superior mesenteric venous thrombus , and was admitted on 04/04/22 20:46 on a 201 voluntary commitment for SI with plan of slitting her wrists. Chief Complaint "whatever". Review of Systems Sleep Information Total Hours of Sleep: 6.5 Meal Information Percent Meal Consumed - Breakfast: 0 Percent Meal Consumed - Lunch: 0 Percent Meal Consumed - Dinner: 25 Subjective Subjective Patient was seen & assessed and interval progress reviewed with nursing and social work. She has not been attending many groups, stays in room, hadn't been eating well but did eat 50% of dinner last night when allowed to eat in room. States she is tolerating medication changes, otherwise would not remove her covers to meet with me. Reviewed that ssris can impact bleeding as on warfarin. Physical Exam Psychiatric Orientation: alert Eye Contact: good eye contact Speech: + abnormal rate/rhythm/volume of speech (limited) Affect: + flat affect Mood: + depressed mood Thought Process: + concrete thought process Thought Content: reality based without delusions Suicidal Thoughts: denies suicidal intent; + reports suicidal thoughts and + reports suicidal plan (to cut Wrists if outside the hospital ) Homicidal Thoughts: denies homicidal thoughts Hallucinations: no auditory hallucinations and no visual hallucinations Cognition: recent memory grossly intact, remote memory grossly intact, attention grossly intact and language grossly intact Estimated Intelligence: consistent with education level Vital Signs (Past 24 Hours) Last Vital Signs Temp 36.7 C 04/06/22 20:00 Pulse 76 04/06/22 06:31 Resp 16 04/06/22 06:00 BP 98/68 L 04/06/22 09:40 Pulse Ox 98 04/06/22 06:00 O2 Del Method 04/06/22 06:00 Results & Data ([facility]) Laboratory Results Laboratory Results - last 24 hr 08/13/22 07:59 PT 17.4 H INR 1.7 H Current Inpatient Medications Current Inpatient Medications: Current Inpatient Medications Acetaminophen (Acetaminophen 500 Mg Tab) 1,000 mg PO Q6H PRN PRN Reason: Pain Stop: 05/05/22 17:04 Al Hydrox/Mg Hydrox/Simethicone (Aluminum/Magnesium Susp 30 Ml Udc) 30 ml PO Q4H PRN PRN Reason: GI Upset Stop: 05/04/22 20:44 Bismuth Subsalicylate (Bismuth Subsalicylate Liqd 236 Ml) 15 ml PO PRN PRN PRN Reason: Loose Stool Stop: 05/04/22 20:44 Dicyclomine HCl (Dicyclomine Hcl 10 Mg Cap) 10 mg PO QID PRN PRN Reason: ABD PAIN Stop: 05/05/22 17:04 Famotidine (Famotidine 20 Mg Tab) 20 mg PO BID PRN PRN Reason: Acid Reflux Stop: 05/05/22 17:04 Fluvoxamine Maleate (Fluvoxamine Maleate 50 Mg Tab) 50 mg PO DAILY RENU Stop: 05/07/22 08:59 Last Admin: 04/07/22 08:57 Dose: 50 mg Gabapentin (Gabapentin 600 Mg Tab) 600 mg PO QAM RENU Stop: 05/06/22 08:59 Last Admin: 04/07/22 08:57 Dose: 600 mg Hydroxyzine HCl (Hydroxyzine Hcl 25 Mg Tab) 50 mg PO HSZ PRN PRN Reason: Insomnia Stop: 05/04/22 20:44 Hydroxyzine HCl (Hydroxyzine Hcl 25 Mg Tab) 25 mg PO Q4H PRN PRN Reason: Anxiety Stop: 05/04/22 20:44 Lorazepam (Lorazepam 0.5 Mg Tab) 0.5 mg PO BID PRN PRN Reason: SI/distress before meals Stop: 05/05/22 21:14 Lurasidone HCl (Lurasidone Hcl 40 Mg Tab) 20 mg PO DAILYBD RENU Stop: 05/05/22 17:14 Last Admin: 04/06/22 17:35 Dose: 20 mg Magnesium Hydroxide (Magnesium Hydroxide Susp 30 Ml Udc) 30 ml PO DAILY PRN PRN Reason: Constipation Stop: 05/04/22 20:44 Olanzapine (Olanzapine 2.5 Mg Tab) 2.5 mg PO BID PRN PRN Reason: Anxiety/Agitation Stop: 05/06/22 08:59 Propranolol HCl (Propranolol Hcl 20 Mg Tab) 40 mg PO BID [facility] Stop: 05/05/22 20:59 Last Admin: 04/07/22 08:58 Dose: Not Given Sodium Chloride (Sodium Chloride 0.65% Na Soln 45 Ml ([place])) 1 - 2 sprays NA PRN PRN PRN Reason: Nasal Dryness/Congestion Stop: 05/04/22 20:44 Trazodone HCl (Trazodone Hcl 50 Mg Tab) 50 mg PO HS PRN PRN Reason: Insomnia Stop: 05/06/22 21:59 Last Admin: 04/06/22 22:09 Dose: 50 mg Warfarin Sodium (Warfarin Sod 5 Mg Tab) 5 mg PO [id number] [facility] Stop: 05/05/22 17:29 Last Admin: 04/05/22 18:32 Dose: 5 mg Warfarin Sodium (Warfarin Sod 2.5 Mg Tab) 2.5 mg PO [id number] [facility] Stop: 05/06/22 15:59 Last Admin: 04/06/22 17:34 Dose: 2.5 mg Mental Health & Subst Abuse Tx Therapist Name of Therapist: Susan Mac. Post Discharge Appointments Primary Care Physician Name Of Family Doctor: Kinsey Chaparro PA-C
[2022-04-07] MEDS: WARFARIN SOD 5 MG TAB PO SCH (17:06)
[2022-04-07] MEDS: LURASIDONE HCL 40 MG TAB PO SCH (17:06)
[2022-04-07] MEDS: OLANZAPINE 2.5 MG TAB PO PRN (19:27)
[2022-04-07] MEDS: traZODone HCL 50 MG TAB PO PRN (21:41)
[2022-04-08] MEDS: GABAPENTIN 600 MG TAB PO SCH (08:13)
[2022-04-08] MEDS: PROPRANOLOL HCL 20 MG TAB PO SCH ×2 (08:13→22:05)
[2022-04-08] MEDS: fluvoxaMINE MALEATE 50 MG TAB PO SCH (08:13)
[2022-04-08 08:23] LABS: INR 1.9 (0.9-1.1); Prothrombin Time 19.8 Seconds (9.0-12.0)
[2022-04-08] MEDS: ACETAMINOPHEN 500 MG TAB PO PRN ×2 (11:56→18:03)
--- NOTE | 2022-04-08 12:22 | Psychiatric Progress Note ---
Date of Service April 08, 2022 Impression / Recommendations Impression The patient is a 21-year-old woman has a history of MDD with psychotic features, PTSD, Brock brock disease, superior mesenteric venous thrombus, admitted for worsening depression and SI with plan of slitting her wrists in the context of recent transitions and care providers due to change in insurance and medication adjustments as well as worsening restrictive eating disorder. Diagnostically consistent with major depressive disorder and restrictive eating disorder. The patient is deemed unstable and requires psychiatric hospitalization for diagnostic clarification, safety and stabilization, medication management and development of further coping skills. 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 04/07/22: continue current meds and treatment plan as multiple changes on admission. Confirm target INR and frequency of draws. 04/06/22: Start fluvoxamine 50mg qd. Discontinued mirtazapine. Start trazodone 50mg qhs prn. Added ativan prn before meals to help with distress related to eating or for intensified SI. 04/05/22: The patient was admitted to the [facility] ([facility]) on q15 min checks (behavioral with suicide precautions) for safety. The patient will participate in group, recreational, and milieu therapies and will be offered additional individual and family sessions as clinically appropriate. -Fasting lipid panel qAM -Latuda 20mg qdinner -Warfarin -Gabapentin 600mg qd with plan for ongoing taper Inventory Assets Strengths: supportive and in-laws, employed, good rapport with PCP Needs: safety and stabilization, medication adjustment, additional coping skills, increased outpatient services Suicide Risk Level Suicide Risk Level: Moderate (q15 min suicide checks) Risk Factors Assessment : Yes Do You Have Access To A Gun?: No Health Problems: Yes Mental Health Diagnoses: Yes Previous Attempt: Yes Previous Psychiatric Hospitalization: Yes Hopelessness: Yes Protective Factors Assessment : Yes Employed: Yes ([employer]) Stable Relationships: Yes Supportive Family: Yes Good Rapport with Provider: Yes Interval History Identifying Information MAKENZIE COSTA is a 21-year-old woman who currently lives in [place] with her and his extended family, has a history of MDD with psychotic features, PTSD, Brock brock disease, superior mesenteric venous thrombus , and was admitted on 04/04/22 20:46 on a 201 voluntary commitment for SI with plan of slitting her wrists. Chief Complaint "I had some command hallucinations last night" Review of Systems Sleep Information Total Hours of Sleep: 8.5 Sleep Comments: trazodone 50 mg Meal Information Percent Meal Consumed - Breakfast: 90 Percent Meal Consumed - Lunch: 0 Percent Meal Consumed - Dinner: 80 Subjective Subjective Patient was seen & assessed and interval progress reviewed with nursing and social work. The patient is up early, bright and interacting with peers. Agreeable to meeting with . Staff report although she requested prn last pm she did not appear distressed or as if she was responding to internal stimuli. Physical Exam Psychiatric Orientation: alert and oriented x 3 Apperance: appropriately dressed and appropriately groomed Eye Contact: good eye contact Motor Behavior: no abnormal motor movements Speech: normal rate/rhythm/volume of speech Affect: euthymic affect Mood: + depressed mood Thought Process: goal directed thought process Thought Content: reality based without delusions Suicidal Thoughts: denies suicidal thoughts Homicidal Thoughts: denies homicidal thoughts Hallucinations: no auditory hallucinations and no visual hallucinations Cognition: attention grossly intact and language grossly intact Estimated Intelligence: consistent with education level Insight: + limited insight Judgement: + limited judgement Vital Signs (Past 24 Hours) Last Vital Signs Temp 36.7 C 04/07/22 20:00 Pulse 79 04/07/22 21:00 Resp 16 04/06/22 06:00 BP 105/74 04/07/22 21:00 Pulse Ox 98 04/06/22 06:00 O2 Del Method 04/06/22 06:00 Results & Data ([facility]) Laboratory Results Laboratory Results - last 24 hr 04/08/22 07:31 PT 19.8 H INR 1.9 H Current Inpatient Medications Current Inpatient Medications: Current Inpatient Medications Acetaminophen (Acetaminophen 500 Mg Tab) 1,000 mg PO Q6H PRN PRN Reason: Pain Stop: 05/05/22 17:04 Last Admin: 04/08/22 11:56 Dose: 1,000 mg Al Hydrox/Mg Hydrox/Simethicone (Aluminum/Magnesium Susp 30 Ml Udc) 30 ml PO Q4H PRN PRN Reason: GI Upset Stop: 05/04/22 20:44 Bismuth Subsalicylate (Bismuth Subsalicylate Liqd 236 Ml) 15 ml PO PRN PRN PRN Reason: Loose Stool Stop: 05/04/22 20:44 Dicyclomine HCl (Dicyclomine Hcl 10 Mg Cap) 10 mg PO QID PRN PRN Reason: ABD PAIN Stop: 05/05/22 17:04 Famotidine (Famotidine 20 Mg Tab) 20 mg PO BID PRN PRN Reason: Acid Reflux Stop: 05/05/22 17:04 Fluvoxamine Maleate (Fluvoxamine Maleate 50 Mg Tab) 50 mg PO DAILY RENU Stop: 05/07/22 08:59 Last Admin: 04/08/22 08:13 Dose: 50 mg Gabapentin (Gabapentin 600 Mg Tab) 600 mg PO QAM RENU Stop: 05/06/22 08:59 Last Admin: 04/08/22 08:13 Dose: 600 mg Hydroxyzine HCl (Hydroxyzine Hcl 25 Mg Tab) 50 mg PO HSZ PRN PRN Reason: Insomnia Stop: 05/04/22 20:44 Hydroxyzine HCl (Hydroxyzine Hcl 25 Mg Tab) 25 mg PO Q4H PRN PRN Reason: Anxiety Stop: 05/04/22 20:44 Lorazepam (Lorazepam 0.5 Mg Tab) 0.5 mg PO BID PRN PRN Reason: SI/distress before meals Stop: 05/05/22 21:14 Lurasidone HCl (Lurasidone Hcl 40 Mg Tab) 40 mg PO DAILYBD RENU Stop: 05/08/22 17:14 Magnesium Hydroxide (Magnesium Hydroxide Susp 30 Ml Udc) 30 ml PO DAILY PRN PRN Reason: Constipation Stop: 05/04/22 20:44 Olanzapine (Olanzapine 2.5 Mg Tab) 2.5 mg PO BID PRN PRN Reason: Anxiety/Agitation Stop: 05/06/22 08:59 Last Admin: 04/07/22 19:27 Dose: 2.5 mg Propranolol HCl (Propranolol Hcl 20 Mg Tab) 40 mg PO BID RENU Stop: 05/05/22 20:59 Last Admin: 04/08/22 08:13 Dose: 40 mg Sodium Chloride (Sodium Chloride 0.65% Na Soln 45 Ml ([place])) 1 - 2 sprays NA PRN PRN PRN Reason: Nasal Dryness/Congestion Stop: 05/04/22 20:44 Trazodone HCl (Trazodone Hcl 50 Mg Tab) 50 mg PO HS PRN PRN Reason: Insomnia Stop: 05/06/22 21:59 Last Admin: 04/07/22 21:41 Dose: 50 mg Warfarin Sodium (Warfarin Sod 5 Mg Tab) 5 mg PO [id number] [facility] Stop: 05/05/22 17:29 Last Admin: 04/07/22 17:06 Dose: 5 mg Warfarin Sodium (Warfarin Sod 2.5 Mg Tab) 2.5 mg PO [email or web address] [facility] Stop: 05/06/22 15:59 Last Admin: 04/06/22 17:34 Dose: 2.5 mg Mental Health & Subst Abuse Tx Psychiatrist Name of Psychiatrist: Temitope Trimble Psychiatrist's Psychiatric Appointment Comment: [address] [facility] Therapist Name of Therapist: [facility] Therapist's Therapy Appointment Comment: [address] [place] [address], [address] Implementation Analyst Name of Implementation Analyst: Andreea Smith Phone Number for Implementation Analyst: [phone] Case Management Appointment Comment: Call to re-establish your services Post Discharge Appointments Primary Care Physician Name Of Family Doctor: Bubba Chaparro PA-C Primary Care Provider Appointment Comment: [address] [facility] Contact Information Discharge Discharge Address: [address] [place] [address]
[2022-04-08] MEDS: OLANZAPINE 2.5 MG TAB PO PRN ×2 (12:40→19:59)
[2022-04-08] MEDS ORDERED: LURASIDONE HCL 40 MG TAB PO SCH (17:15)
[2022-04-08] MEDS: WARFARIN SOD 5 MG TAB PO SCH (17:17)
[2022-04-08 19:28] LABS: Appearance Urine Clear (Clear); Bacteria Urine Automated Negative (Negative); Bilirubin Urine Negative (Negative); Blood Urine 1+ (Negative); Cast Urine Automated 0 /lpf (0-5); Color Urine Yellow; Epithelial Cell Urine Auto 20-30 /lpf (0-5); Glucose Urine UA Negative (Negative); Ketones Urine Negative (Negative); Leukocyte Esterase Urine Negative (Negative); Nitrite Urine Negative (Negative); Protein Urine Negative (Negative); Specific Gravity Urine 1.009 (1.000-1.030); Urobilinogen Urine Negative (Negative); WBC Urine Automated 0 /hpf (0-5); pH Urine 6.5 (4.5-7.5)
[2022-04-08] MEDS: traZODone HCL 50 MG TAB PO PRN (22:02)
[2022-04-09] MEDS: PROPRANOLOL HCL 20 MG TAB PO SCH (09:01)
[2022-04-09] MEDS: GABAPENTIN 600 MG TAB PO SCH (09:03)
[2022-04-09] MEDS: fluvoxaMINE MALEATE 50 MG TAB PO SCH (09:03)
[2022-04-09 09:05] LABS: INR 2.1 (0.9-1.1); Prothrombin Time 21.4 Seconds (9.0-12.0)
--- NOTE | 2022-04-09 13:23 | Discharge Summary ---
Date of Service April 09, 2022 History of Present Illness As per Dr. Mendez on admission: Delfina presents for psychiatric admission for worsening depression and suicidal ideation with plans of slitting her wrists. He states that her depression suddenly worsened significantly on Saturday afternoon, 5 days ago, and by Saturday evening she was having intense suicidal ideation with thoughts of slitting her wrist. She states that the suicidal ideation got "pretty bad" to the point that she did not feel she would be able to remain safe. She told her that she was having these suicidal thoughts but that she still wanted to go to work he was very concerned for her safety and thus called police who then brought her to the emergency department where she agreed to voluntary treatment. She notes no specific recent stressors did change insurance after she started a new job and has had to switch providers resulting in no current therapist and switching between primary care doctors. She had been quite stable on Effexor 225 mg and recently due to her worsening depression her primary care provider had increased the dose to 150 mg twice a day. However her depression continued to worsen and so they tapered her off the Effexor and started Latuda but due to issues with insurance prior authorization she was not able to pick this up until yesterday. Her primary care doctor has also been tapering her gabapentin, which she states was started years ago for mood, due to ineffectiveness and she continues to use hydroxyzine for anxiety but feels that this is not helpful. She endorses depressive symptoms including tearfulness, anhedonia, decreased motivation, self-guilt, helplessness, hopelessness, decreased energy, decreased appetite, and intermittent sleep. She continues to have suicidal ideation with thoughts of cutting her wrists. She also endorses symptoms of anxiety including generalized worries and easily overwhelmed. She denies any symptoms of psychosis. She endorses ongoing self-harm via scratching her wrists. She notes that her eating disorder has gotten worse recently with increased restriction over the last few months but that she also has a low appetite due to depression. States she continues to eat every day but some days skips lunch. Psychiatric ROS notable for no current nor history of symptoms of sarmad, history of command auditory hallucinations in the context of worsening depression during her hospitalization in May 2021, hx PTSD, hx restrictive eating disorder. Physical Exam Vital Signs (Past 24 Hours) Last Vital Signs Temp 36.8 C 04/09/22 10:41 Pulse 79 04/09/22 10:41 Resp 16 04/09/22 10:41 BP 105/74 04/09/22 10:41 Pulse Ox 98 04/09/22 10:41 O2 Del Method 04/06/22 06:00 Principal Diagnosis major depressive disorder Psychiatric Data See daily stay summary. In short, safety was maintained and the patient was cooperative with care, though initially spent excessive time in room and avoided groups initially (like last stay). Medication changes included starting trial of Latuda and Luvox (SSRI in place of Remeron) and they tolerated this well. A family session was held with and safety plan was completed prior to discharge. Reviewed that a few doses of her propranolol (non-psychiatric indication) were held here due to low BP. She denies this is an issue at home and has a BP cuff. She voiced understanding of holding doses if dizzy and will notify provider if recurs/persists. She agrees to continue PT/INR as per Bubba. She expressed understanding of need for ongoing monitoring for longer term side effects of medications such as TD and metabolic. At discharge she reported having trazodone 50 mg hs prn at home. Day of Discharge Assessment Today the patient voices readiness for discharge. They note improvement in mood and deny thoughts to harm self or others. Thoughts remain organized and they are improved from admission. There is no evidence of psychosis. They agree to take mediations as prescribed and keep follow-up appointments. They are stable for discharge to outpatient level of care. Transition of Care Transition Of Care Record: was reviewed with the patient Advance Directives Advance Directives Information Provided: Yes Advance Directives: No Mental Health Advance Directive: No Advance Directives on File: No Living Will: No Power of Medicine Technologist: No Advance Directives Reason:: Declines as Mental Health Visit. Suicide Risk Level Suicide Risk Level Comments: Suicide risk at discharge is deemed low as the patient is no longer requiring 24-hr monitoring, has a safety plan, and is free of suicidal ideation at discharge. Risk Factors Assessment : Yes Do You Have Access To A Gun?: No Health Problems: Yes Mental Health Diagnoses: Yes Previous Attempt: Yes Previous Psychiatric Hospitalization: Yes Hopelessness: Yes Protective Factors Assessment : Yes Employed: Yes ([employer]) Stable Relationships: Yes Supportive Family: Yes Good Rapport with Provider: Yes Tobacco Cessation at Discharge Tobacco Cessation Medication Prescribed at Discharge: Not Applicable/Non-Smoker Total Time Total Time Spent: Greater Than 30 Minutes Total Time Includes: Examination of the patient, Discharge Planning and Medication Reconciliation Discharge Data Lab Results 04/04/22 04/04/22 04/04/22 18:20 18:20 18:32 WBC RBC Hgb Hct MCV MCH MCHC RDW Std Deviation RDW Coeff of Toni Plt Count MPV Immature Gran % (Auto) Neut % (Auto) Lymph % (Auto) [place] % (Auto) Eos % (Auto) Baso % (Auto) Neut # (Auto) Lymph # (Auto) [place] # (Auto) Eos # (Auto) Baso # (Auto) Immature Gran # (Auto) PT INR Sodium Potassium Chloride Carbon Dioxide Anion Gap BUN Creatinine Est Cr Clr Drug Dosing Est GFR ( Amer) Est GFR (Non-Af Amer) BUN/Creatinine Ratio Glucose Fasting Glucose Calcium Total Bilirubin AST ALT Alkaline Phosphatase Total Protein Albumin Globulin Albumin/Globulin Ratio Triglycerides Cholesterol LDL Cholesterol, Calc VLDL Cholesterol, Calc HDL Cholesterol Cholesterol/HDL Ratio TSH Urine Color Dark Yellow Urine Appearance Clear Urine pH 6.0 Ur Specific [place] 1.026 Urine Protein Trace H Urine Glucose (UA) Negative Urine Ketones Trace H Urine Blood 2+ H Urine Nitrite Negative Urine Bilirubin Negative Urine Urobilinogen Negative Ur Leukocyte Esterase Negative Urine WBC (Auto) 1-5 Urine RBC (Auto) 0-4 U Hyaline Cast (Auto) 1-5 U Epithel Cells (Auto) >30 H Urine Bacteria (Auto) 1+ H POC Ur Test NEG Salicylates Urine Opiates Screen Neg Ur Methadone, Qual Neg Acetaminophen Urine Barbiturates Neg Ur Phencyclidine (PCP) Neg U Amphetamin/Meth Scrn Neg MDMA (Ecstasy) Screen Pos H U Benzodiazepines Scrn Neg Ur Cocaine Metabolite Neg U Marijuana (THC) Screen Neg Ethyl Alcohol mg/dL SARS-CoV-2, RNA, NAAT 04/04/22 04/04/22 04/04/22 19:01 19:01 19:01 WBC 10.60 RBC 4.69 Hgb 14.0 Hct 40.5 MCV 86.4 MCH 29.9 MCHC 34.6 RDW Std Deviation 42.4 RDW Coeff of Toni 13.6 Plt Count 593 H MPV 8.8 L Immature Gran % (Auto) 0.2 Neut % (Auto) 44.7 Lymph % (Auto) 43.5 [place] % (Auto) 9.5 Eos % (Auto) 1.5 Baso % (Auto) 0.6 Neut # (Auto) 4.74 Lymph # (Auto) 4.[address] [place] # (Auto) 1.01 H Eos # (Auto) 0.16 Baso # (Auto) 0.06 Immature Gran # (Auto) 0.02 PT 17.6 H INR 1.7 H Sodium 138 Potassium 3.9 Chloride 106 Carbon Dioxide 25 Anion Gap 7 BUN 9 Creatinine 0.76 Est Cr Clr Drug Dosing Not Reportable Est GFR ( Amer) 128.1 Est GFR (Non-Af Amer) 110.6 BUN/Creatinine Ratio 11.8 Glucose 87 Fasting Glucose Calcium 9.1 Total Bilirubin 0.6 AST 16 ALT 25 Alkaline Phosphatase 116 H Total Protein 7.2 Albumin 4.2 Globulin 3.0 Albumin/Globulin Ratio 1.4 Triglycerides Cholesterol LDL Cholesterol, Calc VLDL Cholesterol, Calc HDL Cholesterol Cholesterol/HDL Ratio TSH Urine Color Urine Appearance Urine pH Ur Specific [place] Urine Protein Urine Glucose (UA) Urine Ketones Urine Blood Urine Nitrite Urine Bilirubin Urine Urobilinogen Ur Leukocyte Esterase Urine WBC (Auto) Urine RBC (Auto) U Hyaline Cast (Auto) U Epithel Cells (Auto) Urine Bacteria (Auto) POC Ur Test Salicylates Urine Opiates Screen Ur Methadone, Qual Acetaminophen Urine Barbiturates Ur Phencyclidine (PCP) U Amphetamin/Meth Scrn MDMA (Ecstasy) Screen U Benzodiazepines Scrn Ur Cocaine Metabolite U Marijuana (THC) Screen Ethyl Alcohol mg/dL SARS-CoV-2, RNA, NAAT 04/04/22 04/04/22 04/04/22 19:01 19:01 19:01 WBC RBC Hgb Hct MCV MCH MCHC RDW Std Deviation RDW Coeff of Toni Plt Count MPV Immature Gran % (Auto) Neut % (Auto) Lymph % (Auto) [place] % (Auto) Eos % (Auto) Baso % (Auto) Neut # (Auto) Lymph # (Auto) [place] # (Auto) Eos # (Auto) Baso # (Auto) Immature Gran # (Auto) PT INR Sodium Potassium Chloride Carbon Dioxide Anion Gap BUN Creatinine Est Cr Clr Drug Dosing Est GFR ( Amer) Est GFR (Non-Af Amer) BUN/Creatinine Ratio Glucose Fasting Glucose Calcium Total Bilirubin AST ALT Alkaline Phosphatase Total Protein Albumin Globulin Albumin/Globulin Ratio Triglycerides Cholesterol LDL Cholesterol, Calc VLDL Cholesterol, Calc HDL Cholesterol Cholesterol/HDL Ratio TSH 3.394 Urine Color Urine Appearance Urine pH Ur Specific [place] Urine Protein Urine Glucose (UA) Urine Ketones Urine Blood Urine Nitrite Urine Bilirubin Urine Urobilinogen Ur Leukocyte Esterase Urine WBC (Auto) Urine RBC (Auto) U Hyaline Cast (Auto) U Epithel Cells (Auto) Urine Bacteria (Auto) POC Ur Test Salicylates < 3.0 L Urine Opiates Screen Ur Methadone, Qual Acetaminophen < 3 L Urine Barbiturates Ur Phencyclidine (PCP) U Amphetamin/Meth Scrn MDMA (Ecstasy) Screen U Benzodiazepines Scrn Ur Cocaine Metabolite U Marijuana (THC) Screen Ethyl Alcohol mg/dL < 10.0 SARS-CoV-2, RNA, NAAT 04/04/22 04/06/22 04/06/22 Unknown 08:10 08:10 WBC RBC Hgb Hct MCV MCH MCHC RDW Std Deviation RDW Coeff of Toni Plt Count MPV Immature Gran % (Auto) Neut % (Auto) Lymph % (Auto) [place] % (Auto) Eos % (Auto) Baso % (Auto) Neut # (Auto) Lymph # (Auto) [place] # (Auto) Eos # (Auto) Baso # (Auto) Immature Gran # (Auto) PT 15.7 H INR 1.5 H Sodium Potassium Chloride Carbon Dioxide Anion Gap BUN Creatinine Est Cr Clr Drug Dosing Est GFR ( Amer) Est GFR (Non-Af Amer) BUN/Creatinine Ratio Glucose Fasting Glucose 70 Calcium Total Bilirubin AST ALT Alkaline Phosphatase Total Protein Albumin Globulin Albumin/Globulin Ratio Triglycerides 116 Cholesterol 171 LDL Cholesterol, Calc 122 VLDL Cholesterol, Calc 23 HDL Cholesterol 26 Cholesterol/HDL Ratio 6.6 H TSH Urine Color Urine Appearance Urine pH Ur Specific [place] Urine Protein Urine Glucose (UA) Urine Ketones Urine Blood Urine Nitrite Urine Bilirubin Urine Urobilinogen Ur Leukocyte Esterase Urine WBC (Auto) Urine RBC (Auto) U Hyaline Cast (Auto) U Epithel Cells (Auto) Urine Bacteria (Auto) POC Ur Test Salicylates Urine Opiates Screen Ur Methadone, Qual Acetaminophen Urine Barbiturates Ur Phencyclidine (PCP) U Amphetamin/Meth Scrn MDMA (Ecstasy) Screen U Benzodiazepines Scrn Ur Cocaine Metabolite U Marijuana (THC) Screen Ethyl Alcohol mg/dL SARS-CoV-2, RNA, NAAT NEGATIVE 04/07/22 04/08/22 04/08/22 07:59 07:31 19:15 WBC RBC Hgb Hct MCV MCH MCHC RDW Std Deviation RDW Coeff of Toni Plt Count MPV Immature Gran % (Auto) Neut % (Auto) Lymph % (Auto) [place] % (Auto) Eos % (Auto) Baso % (Auto) Neut # (Auto) Lymph # (Auto) [place] # (Auto) Eos # (Auto) Baso # (Auto) Immature Gran # (Auto) PT 17.4 H 19.8 H INR 1.7 H 1.9 H Sodium Potassium Chloride Carbon Dioxide Anion Gap BUN Creatinine Est Cr Clr Drug Dosing Est GFR ( Amer) Est GFR (Non-Af Amer) BUN/Creatinine Ratio Glucose Fasting Glucose Calcium Total Bilirubin AST ALT Alkaline Phosphatase Total Protein Albumin Globulin Albumin/Globulin Ratio Triglycerides Cholesterol LDL Cholesterol, Calc VLDL Cholesterol, Calc HDL Cholesterol Cholesterol/HDL Ratio TSH Urine Color Yellow Urine Appearance Clear Urine pH 6.5 Ur Specific [place] 1.009 Urine Protein Negative Urine Glucose (UA) Negative Urine Ketones Negative Urine Blood 1+ H Urine Nitrite Negative Urine Bilirubin Negative Urine Urobilinogen Negative Ur Leukocyte Esterase Negative Urine WBC (Auto) 0 Urine RBC (Auto) 5-10 H U Hyaline Cast (Auto) 0 U Epithel Cells (Auto) 20-30 H Urine Bacteria (Auto) Negative POC Ur Test Salicylates Urine Opiates Screen Ur Methadone, Qual Acetaminophen Urine Barbiturates Ur Phencyclidine (PCP) U Amphetamin/Meth Scrn MDMA (Ecstasy) Screen U Benzodiazepines Scrn Ur Cocaine Metabolite U Marijuana (THC) Screen Ethyl Alcohol mg/dL SARS-CoV-2, RNA, NAAT 04/09/22 08:24 WBC RBC Hgb Hct MCV MCH MCHC RDW Std Deviation RDW Coeff of Toni Plt Count MPV Immature Gran % (Auto) Neut % (Auto) Lymph % (Auto) [place] % (Auto) Eos % (Auto) Baso % (Auto) Neut # (Auto) Lymph # (Auto) [place] # (Auto) Eos # (Auto) Baso # (Auto) Immature Gran # (Auto) PT 21.4 H INR 2.1 H Sodium Potassium Chloride Carbon Dioxide Anion Gap BUN Creatinine Est Cr Clr Drug Dosing Est GFR ( Amer) Est GFR (Non-Af Amer) BUN/Creatinine Ratio Glucose Fasting Glucose Calcium Total Bilirubin AST ALT Alkaline Phosphatase Total Protein Albumin Globulin Albumin/Globulin Ratio Triglycerides Cholesterol LDL Cholesterol, Calc VLDL Cholesterol, Calc HDL Cholesterol Cholesterol/HDL Ratio TSH Urine Color Urine Appearance Urine pH Ur Specific [place] Urine Protein Urine Glucose (UA) Urine Ketones Urine Blood Urine Nitrite Urine Bilirubin Urine Urobilinogen Ur Leukocyte Esterase Urine WBC (Auto) Urine RBC (Auto) U Hyaline Cast (Auto) U Epithel Cells (Auto) Urine Bacteria (Auto) POC Ur Test Salicylates Urine Opiates Screen Ur Methadone, Qual Acetaminophen Urine Barbiturates Ur Phencyclidine (PCP) U Amphetamin/Meth Scrn MDMA (Ecstasy) Screen U Benzodiazepines Scrn Ur Cocaine Metabolite U Marijuana (THC) Screen Ethyl Alcohol mg/dL SARS-CoV-2, RNA, NAAT Hospital Course (1) MDD (major depressive disorder), recurrent episode, severe: (2) Suicidal ideation: (3) PTSD (post-traumatic stress disorder): (4) Eating disorder, unspecified: (5) Acquired asplenia: (6) Current use of predatory animal exterminator anticoagulation: (7) Elevated platelet count: (8) Superior mesenteric vein thrombosis: (9) Brock brock disease: Plan 04/08/22: titrate Latuda 40 mg daily. 04/07/22: continue current meds and treatment plan as multiple changes on admission. Confirm target INR and frequency of draws. 04/06/22: Start fluvoxamine 50mg qd. Discontinued mirtazapine. Start trazodone 50mg qhs prn. Added ativan prn before meals to help with distress related to eating or for intensified SI. 04/05/22: The patient was admitted to the [facility] ([facility]) on q15 min checks (behavioral with suicide precautions) for safety. The patient will participate in group, recreational, and milieu therapies and will be offered additional individual and family sessions as clinically appropriate. -Fasting lipid panel qAM -Latuda 20mg qdinner -Warfarin -Gabapentin 600mg qd with plan for ongoing taper Mental Health & Subst Abuse Tx Psychiatrist Name of Psychiatrist: [facility] Psych[facility]rist's Date of Appointment with Psychiatrist: 04/27/22 Time of Appointment with Psychiatrist: 10:15am Psychiatric Appointment Comment: [address] [facility] Therapist Name of Therapist: [facility] Date of Therapist Appointment: 04/10/22 Time of Therapist Appointment: 10:30 am Therapy Appointment Comment: [address], [address], [place] [employer]arnish Blender Name of Varnish Blender: Andreea Smith Phone Number for Varnish Blender: [phone] Case Management Appointment Comment: Call to re-establish your services Post Discharge Appointments Primary Care Physician Name Of Family Doctor: Bubba Chaparro PA-C Primary Care Date of Appointment with PCP: 04/10/22 Time of Appointment with PCP: 2:05pm arrival for 2:20pm appt. Provider Appointment Comment: [address] [facility] Smoking Cessation Counseling Tobacco Cessation Medication Prescribed at Discharge: Not Applicable/Non-Smoker Contact Information Discharge Discharge Address: [address] [place] [id number] Discharge Plan Discharge Items Patient Disposition: Home - Self-Care Reason For Visit: MDD W/ SI Discharge Diagnosis: major depressive disorder Activity: Resume your previous activity Non-emergency contact: Primary Care Provider, Psychiatrist and Therapist Call non-emergency contact if: you have any medication questions and your symptoms worsen Follow-up/Referrals: Swapna Ponce PA-C [Primary Care Provider] - Diet: Regular Addtl Attending Provider Instructions: SPECIAL CARE INSTRUCTIONS: 1. Follow through with your scheduled aftercare appointments. If unable to keep an appointment, please call to reschedule. 2. Take your medication only as prescribed. Medication should not be changed or stopped without the approval of your doctor. In the event of worsening symptoms or concerns about side effects, contact your doctor immediately. 3. Utilize new healthy coping skills, anger management skills, and stress management skills learned during your hospitalization. Journal feelings and process them with a support person. Identify stressors or situations that may result in relapse, deterioration or inappropriate behaviors and develop a plan to deal with those issues. 4. If your coping skills are ineffective and you are in crisis, contact your outpatient providers for direction. If unable to reach your providers, please call the [facility] CRISIS LINE AT , go to the [facility] walk-in center at [address], [place], or go to the closest Emergency Room. 5. Avoid alcohol and un-prescribed drugs. 6. You have been provided with the Mental Health Advance Directives Pamphlet for your review. 7. Your condition is stable for discharge to outpatient level of care, but recovery is an ongoing process. Ifthoughts to harm yourself or others return, follow the safety plan developed during your stay. Planning for a safe return home includes securing weapons. Our treatment team recommends weaponsbe removed from the home until your outpatient provider reassesses your progress. In rare cases where the items themselvescannot be removed, guns and ammunitionshould be secured separatelyand keys stored by a reliable personoutside of the home. If you were admitted on an involuntary commitment, the police or other legal authorities may be involved in this process. AFTERCARE APPOINTMENTS: * Please call your insurance company prior to your scheduled appointment to confirm your aftercare providers are covered. Take your insurance information to your appointments. WHO TO CALL AND WHEN: Medical Emergencies: For questions or emergencies related to your hospital stay, please contact the Inpatient Behavioral Health Unit at [phone]. A parquetry floor layer is on-call 18/03 for the Behavioral Health Unit for emergencies At any time you feel your situation is an emergency, you may also call 911 immediately. Pending Studies at Discharge: No Studies:: but follow your doctor's instructions re: Coumadin monitoring of PT/INR Stand-Alone Forms: [facility], Smoking Cessation Medications and DC Order Prescriptions: New Latuda 40 mg tablet See Rx Instructions .ROUTE .COMPLEX Qty: 30 0RF Rx Instructions: 40 mg orally with evening meal; must administer with food (at least 350 calories) trazodone 50 mg Tablet 50 mg PO HS PRN (Reason: insomnia) Qty: 1 0RF Rx Instructions: home supply fluvoxamine 50 mg Tablet 50 mg PO DAILY 30 Days Qty: 30 0RF Continued acetaminophen [Tylenol Extra Strength] 500 mg Tablet 1,000 mg PO Q6H PRN (Reason: Pain) gabapentin 800 mg tablet See Rx Instructions .ROUTE .COMPLEX Label Comments: 800mg dose on day alternating with 600mg the next day for 10 days then to taper to 600mg one day and 400mg alternating days. Rx Instructions: 800mg dose on day alternating with 600mg the next day for 10 days then to taper to 600mg one day and 400mg alternating days. propranolol 40 mg tablet 40 mg PO BID famotidine 20 mg tablet 20 mg PO BID PRN (Reason: Acid Reflux) dicyclomine 10 mg capsule 10 mg PO QID PRN (Reason: ABD PAIN) warfarin 5 mg Tablet See Rx Instructions .ROUTE .COMPLEX Rx Instructions: 5 mg orally; TAKES 5 MG ON SUN, TUES, THURS, & SAT., THEN 2.5 MG ON MON, WED, & FRI. Discontinued Latuda 20 mg Tablet 20 mg PO DAILY Label Comments: Pt to start Today Discharge Orders: Discharge Order (Routine); Ordered 04/09/22 Ordered By: Deepthi Mayo Admission Data Admit Date/Time: 04/04/22 20:46 Attending Provider: Deepthi Mayo Admit Provider: Alma Rosa Mendez Primary Care Provider: Swapna Ponce Other Interventions: Discharge Summary Assessment (RN) Last Done: 04/09/22 10:41 PSY Interdisciplinary Discharge Planning Last Done: 04/09/22 09:29 Coding Level of Care Code 31591 D/C day mgmt > 30 min Diagnoses MDD (major depressive disorder), recurrent episode, severe F33.2 Suicidal ideation R45.851 PTSD (post-traumatic stress disorder) F43.10 Eating disorder, unspecified F50.9 Acquired asplenia Z90.81 Current use of predatory animal exterminator anticoagulation Z79.01 Elevated platelet count R79.89 Superior mesenteric vein thrombosis K55.069 Brock brock disease I67.5
[2022-04-10 12:16] LABS: MDA negative; MDEA negative; MDMA (Ecstasy) Urine, Confirm negative
== END 2022-04-09 11:50 | disposition home or self-care (01) | DRG 885 ==
LOC: ED 18:15 → 3S 20:35 → SUATTDRO 20:46
DX: R45.851 Suicidal ideations; F33.2 Major depressive disorder, recurrent severe without psychotic features; I88.0 Nonspecific mesenteric lymphadenitis; F50.9 Eating disorder, unspecified; Z79.899 Other long term (current) drug therapy; Z88.1 Allergy status to other antibiotic agents; Z86.718 Personal history of other venous thrombosis and embolism; Z91.51 Personal history of suicidal behavior; F43.10 Post-traumatic stress disorder, unspecified; Z20.822 Contact with and (suspected) exposure to COVID-19; Z79.01 Long term (current) use of anticoagulants; I67.5 Moyamoya disease; Q89.01 Asplenia (congenital)

== ENCOUNTER 2022-04-15 23:27 | Inpatient (IN) ==
--- NOTE | 2022-04-16 00:07 | Emergency Department Note ---
Impression & Plan Depression with suicidal ideation ADMIT ED Provider Note HPI: Patient is a 21-year-old female with history of major depressive disorder, presents to the emergency department with chief complaint of suicidal thoughts. Patient states that throughout the day today she is having thoughts of overdosing on medications to kill herself or possibly slitting her wrist. Fox nt states that she talked her [id number] about this and he contacted police and patient was ultimately transported to the ED for further assessment. On arrival here to the ED the patient is in no acute distress, she is cooperative on my examination. ROS: -Psychiatric: Suicidal thoughts *10 point review systems was conducted and is otherwise negative unless stated above *Outpatient medications and allergy history reviewed PE: General: Alert, NAD HEENT: Normocephalic, atraumatic Eyes: Extraocular eye movement is intact, no scleral erythema Pulmonary: Clear to auscultation bilaterally, no wheezing Cardio: Regular rate and rhythm GI: Abdomen is soft, nontender : No suprapubic tenderness MSK: No evidence of trauma or malformation of the extremities, no edema Skin: No evidence of rash Neuro: Alert, no focal deficits Psychiatric: Cooperative Medical Decision Making: Patient overall appears well here in the ED today, she is admitted to some suicidal thoughts recently, patient was medically cleared for psychiatric/case management assessment following my evaluation, patient was determined appropriate for 302 petition to be upheld secondary to her suicidal thoughts and declining voluntary transport in the field. Patient does admit to having specific thoughts of wanting to overdose on medications or cut her wrist to kill herself. Patient appears in no acute distress here in the ED, she is in agreement for admission at this time to [facility] where she was accepted. Patient was transferred in stable condition for further care. Diagnosis: 1. Suicidal thoughts 2. Anxiety/depression, major depressive disorder Disposition: Admission Babatunde Gates DO Emergency Medicine Past Med/Surg History Medical History (Updated 04/16/22 @ 05:05 by Babatunde Gates DO) Asplenia Eating disorder, unspecified Intermittent asthma Major depressive disorder with psychotic 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 PTSD (post-traumatic stress disorder) Superior mesenteric vein thrombosis Thrombocytosis Surgical History History of splenectomy Family History Denies family history of Coronary heart disease Social History Smoking Status: Never smoker Hx Alcohol Use: No Hx Substance Use: No Preferred Language: Maldivian Communication Ability: Effective Informatics Consultant Required: No Beliefs That Will Affect Care: None marital status: Current Living Situation: Significant Other How many Children do You have: 0 Feels Safe at Home: Yes Assistive Devices: Glasses Allergies Allergies Allergy/AdvReac Type Severity Reaction Status Date / Time vancomycin Allergy Intermediate Red/Itchy Verified 03/31/22 19:40 skin Home Meds Home Medications Medication Instructions Recorded Confirmed acetaminophen 500 mg tablet 1,000 mg PO Q6H PRN Pain 03/09/21 04/16/22 (Tylenol Extra Strength) famotidine 20 mg tablet 20 mg PO BID PRN Acid Reflux 03/09/21 04/16/22 propranolol 40 mg tablet 40 mg PO BID 03/09/21 04/16/22 dicyclomine 10 mg capsule 10 mg PO QID PRN ABD PAIN 06/22/21 04/16/22 warfarin 5 mg tablet 5 mg PO DAILY 03/31/22 04/16/22 gabapentin 100 mg tablet 200 mg PO DAILY 04/16/22 04/16/22 Previous Rx's Medication Instructions Recorded lurasidone 40 mg tablet (Latuda) See Rx Instructions .Route 04/08/22 .COMPLEX #30 tabs fluvoxamine 50 mg tablet 50 mg PO DAILY 30 days #30 tabs 04/09/22 trazodone 50 mg tablet 50 mg PO HS PRN insomnia #1 tab 04/09/22 Results & Data (ED) Vital Signs Vital Signs - 24 hr 04/15/22 23:38 04/16/22 02:19 04/16/22 04:57 Temperature 36.8 C Temperature Source Temporal Artery Scan Pulse Rate 76 Pulse Rate [Left Finger] 68 67 Respiratory Rate 18 14 16 Respiratory Effort / Characteristics Non-Labored Spontaneous Non-Labored Non-Labored Spontaneous Respiratory Depth Normal Normal Blood Pressure 107/73 Blood Pressure [Left Arm] 119/58 L 108/61 Blood Pressure Mean 84 Blood Pressure Mean [Left Arm] 78 76 Blood Pressure Position Sitting Pulse Oximetry 96 95 96 Oxygen Delivery Method Room Air Room Air Room Air Sepsis Recent Fever Within 48 Hours No Sepsis New/Unexplained Change in Mental Status No Sepsis Action Taken by Nursing No Action Required Laboratory Data Result diagrams: 04/15/22 23:55 04/15/22 23:55 Lab Results 04/15/22 04/15/22 04/15/22 Range/Units 23:47 23:47 23:47 WBC (4.8-10.8) K/ul RBC (3.93-5.22) M/uL Hgb (12.0-16.0) g/dl Hct (34.1-44.9) % MCV (80.0-100.0) fL MCH (25.0-34.0) pg MCHC (32.0-36.0) g/dL RDW Std Deviation (36.4-46.3) fL RDW Coeff of Toni (11.5-14.5) % Plt Count (130-400) K/uL MPV (9.4-12.3) fL Immature Gran % (Auto) % Neut % (Auto) % Lymph % (Auto) % [place] % (Auto) % Eos % (Auto) % Baso % (Auto) % Neut # (Auto) (1.4-6.5) K/uL Lymph # (Auto) (1.2-3.4) K/uL [place] # (Auto) (0.24-0.82) K/uL Eos # (Auto) (0-0.50) K/uL Baso # (Auto) (0-0.2) K/uL Immature Gran # (Auto) (0.00-0.02) K/uL Absolute Nucleated RBC (0-0) K/uL Nucleated RBC % (auto) % [place] Bodies [place] Bodies Sodium (136-145) mmol/L Potassium (3.5-5.1) mmol/L Chloride (98-107) mmol/L Carbon Dioxide (21-32) mmol/L Anion Gap (3-11) BUN (6-23) mg/dl Creatinine (0.6-1.2) mg/dl Est Cr Clr Drug Dosing ml/min Est GFR ( Amer) ml/min Est GFR (Non-Af Amer) ml/min BUN/Creatinine Ratio (10-20) Glucose (70-99(Fasting)) mg/dl Calcium (8.5-10.1) mg/dl Total Bilirubin (0.2-1.0) mg/dl AST (13-39) U/L ALT (7-52) U/L Alkaline Phosphatase (34-104) U/L Total Protein (6.0-8.3) gm/dl Albumin (3.4-5.0) gm/dl Globulin (2.5-4.0) gm/dl Albumin/Globulin Ratio (0.9-2) TSH (0.300-4.500) uIu/ml Urine Color Yellow Urine Appearance Clear (Clear) Urine pH 7.5 (4.5-7.5) Ur Specific [place] 1.011 (1.000-1.030) Urine Protein Negative (Negative) Urine Glucose (UA) Negative (Negative) Urine Ketones Negative (Negative) Urine Blood Negative (Negative) Urine Nitrite Negative (Negative) Urine Bilirubin Negative (Negative) Urine Urobilinogen Negative (Negative) Ur Leukocyte Esterase Negative (Negative) Salicylates (3.0-30) mg/dl Urine Opiates Screen Neg (Neg) Ur Methadone, Qual Neg (Neg) Acetaminophen (10-30) ug/ml Urine Barbiturates Neg (Neg) Ur Phencyclidine (PCP) Neg (Neg) U Amphetamin/Meth Scrn Neg (Neg) MDMA (Ecstasy) Screen Neg (Neg) U Benzodiazepines Scrn Neg (Neg) Ur Cocaine Metabolite Neg (Neg) U Marijuana (THC) Screen Neg (Neg) Ethyl Alcohol mg/dL (<10.0) mg/dl SARS-CoV-2, RNA, NAAT NEGATIVE (NEGATIVE) 04/15/22 04/15/22 04/15/22 Range/Units 23:55 23:55 23:55 WBC 13.34 H (4.8-10.8) K/ul RBC 4.75 (3.93-5.22) M/uL Hgb 14.1 (12.0-16.0) g/dl Hct 41.2 (34.1-44.9) % MCV 86.7 (80.0-100.0) fL MCH 29.7 (25.0-34.0) pg MCHC 34.2 (32.0-36.0) g/dL RDW Std Deviation 44.4 (36.4-46.3) fL RDW Coeff of Toni 14.0 (11.5-14.5) % Plt Count 702 H (130-400) K/uL MPV 8.9 L (9.4-12.3) fL Immature Gran % (Auto) 0.1 % Neut % (Auto) 40.4 % Lymph % (Auto) 43.4 % [place] % (Auto) 12.8 % Eos % (Auto) 2.6 % Baso % (Auto) 0.7 % Neut # (Auto) 5.37 (1.4-6.5) K/uL Lymph # (Auto) 5.79 H (1.2-3.4) K/uL [place] # (Auto) 1.71 H (0.24-0.82) K/uL Eos # (Auto) 0.35 (0-0.50) K/uL Baso # (Auto) 0.10 (0-0.2) K/uL Immature Gran # (Auto) 0.02 (0.00-0.02) K/uL Absolute Nucleated RBC 0.02 H (0-0) K/uL Nucleated RBC % (auto) 0.1 % [place] Bodies 1+ [place] Bodies 1+ Sodium 138 (136-145) mmol/L Potassium 3.9 (3.5-5.1) mmol/L Chloride 105 (98-107) mmol/L Carbon Dioxide 23 (21-32) mmol/L Anion Gap 10 (3-11) BUN 6 (6-23) mg/dl Creatinine 0.78 (0.6-1.2) mg/dl Est Cr Clr Drug Dosing 108.0 ml/min Est GFR ( Amer) 124.2 ml/min Est GFR (Non-Af Amer) 107.2 ml/min BUN/Creatinine Ratio 7.7 L (10-20) Glucose 108 H (70-99(Fasting)) mg/dl Calcium 9.3 (8.5-10.1) mg/dl Total Bilirubin 0.3 (0.2-1.0) mg/dl AST 77 H (13-39) U/L ALT 110 H (7-52) U/L Alkaline Phosphatase 143 H (34-104) U/L Total Protein 7.1 (6.0-8.3) gm/dl Albumin 4.4 (3.4-5.0) gm/dl Globulin 2.7 (2.5-4.0) gm/dl Albumin/Globulin Ratio 1.6 (0.9-2) TSH 5.949 H (0.300-4.500) uIu/ml Urine Color Urine Appearance (Clear) Urine pH (4.5-7.5) Ur Specific [place] (1.000-1.030) Urine Protein (Negative) Urine Glucose (UA) (Negative) Urine Ketones (Negative) Urine Blood (Negative) Urine Nitrite (Negative) Urine Bilirubin (Negative) Urine Urobilinogen (Negative) Ur Leukocyte Esterase (Negative) Salicylates (3.0-30) mg/dl Urine Opiates Screen (Neg) Ur Methadone, Qual (Neg) Acetaminophen (10-30) ug/ml Urine Barbiturates (Neg) Ur Phencyclidine (PCP) (Neg) U Amphetamin/Meth Scrn (Neg) MDMA (Ecstasy) Screen (Neg) U Benzodiazepines Scrn (Neg) Ur Cocaine Metabolite (Neg) U Marijuana (THC) Screen (Neg) Ethyl Alcohol mg/dL (<10.0) mg/dl SARS-CoV-2, RNA, NAAT (NEGATIVE) 04/15/22 04/15/22 Range/Units 23:55 23:55 WBC (4.8-10.8) K/ul RBC (3.93-5.22) M/uL Hgb (12.0-16.0) g/dl Hct (34.1-44.9) % MCV (80.0-100.0) fL MCH (25.0-34.0) pg MCHC (32.0-36.0) g/dL RDW Std Deviation (36.4-46.3) fL RDW Coeff of Toni (11.5-14.5) % Plt Count (130-400) K/uL MPV (9.4-12.3) fL Immature Gran % (Auto) % Neut % (Auto) % Lymph % (Auto) % [place] % (Auto) % Eos % (Auto) % Baso % (Auto) % Neut # (Auto) (1.4-6.5) K/uL Lymph # (Auto) (1.2-3.4) K/uL [place] # (Auto) (0.24-0.82) K/uL Eos # (Auto) (0-0.50) K/uL Baso # (Auto) (0-0.2) K/uL Immature Gran # (Auto) (0.00-0.02) K/uL Absolute Nucleated RBC (0-0) K/uL Nucleated RBC % (auto) % [place] Bodies [place] Bodies Sodium (136-145) mmol/L Potassium (3.5-5.1) mmol/L Chloride (98-107) mmol/L Carbon Dioxide (21-32) mmol/L Anion Gap (3-11) BUN (6-23) mg/dl Creatinine (0.6-1.2) mg/dl Est Cr Clr Drug Dosing ml/min Est GFR ( Amer) ml/min Est GFR (Non-Af Amer) ml/min BUN/Creatinine Ratio (10-20) Glucose (70-99(Fasting)) mg/dl Calcium (8.5-10.1) mg/dl Total Bilirubin (0.2-1.0) mg/dl AST (13-39) U/L ALT (7-52) U/L Alkaline Phosphatase (34-104) U/L Total Protein (6.0-8.3) gm/dl Albumin (3.4-5.0) gm/dl Globulin (2.5-4.0) gm/dl Albumin/Globulin Ratio (0.9-2) TSH (0.300-4.500) uIu/ml Urine Color Urine Appearance (Clear) Urine pH (4.5-7.5) Ur Specific [place] (1.000-1.030) Urine Protein (Negative) Urine Glucose (UA) (Negative) Urine Ketones (Negative) Urine Blood (Negative) Urine Nitrite (Negative) Urine Bilirubin (Negative) Urine Urobilinogen (Negative) Ur Leukocyte Esterase (Negative) Salicylates < 3.0 L (3.0-30) mg/dl Urine Opiates Screen (Neg) Ur Methadone, Qual (Neg) Acetaminophen < 3 L (10-30) ug/ml Urine Barbiturates (Neg) Ur Phencyclidine (PCP) (Neg) U Amphetamin/Meth Scrn (Neg) MDMA (Ecstasy) Screen (Neg) U Benzodiazepines Scrn (Neg) Ur Cocaine Metabolite (Neg) U Marijuana (THC) Screen (Neg) Ethyl Alcohol mg/dL < 10.0 (<10.0) mg/dl SARS-CoV-2, RNA, NAAT (NEGATIVE) Administered Medications Discontinued Medications Acetaminophen (Acetaminophen 500 Mg Tab) 500 mg PO NOW STA Stop: 04/16/22 03:38 Last Admin: 04/16/22 03:42 Dose: 500 mg Documented By: COCO Ibuprofen (Ibuprofen 600 Mg Tab) 600 mg PO NOW STA Stop: 04/16/22 03:31 Last Admin: 04/16/22 03:35 Dose: Not Given Documented By: CHANTEF Discharge Plan Visit Data Chief Complaint: Mental Health Evaluation Stated Complaint: SUCIDAL THOUGHTS, PLANS. ED Provider: Babatunde Gates Discharge Problem: Depression with suicidal ideation Patient Disposition: Admitted As Inpatient Condition: Good Discharge Instructions Interventions: ED Discharge Assessment Last Done: 04/16/22 05:01 Forms Stand Alone Forms: [facility], Suicide Prevention Resources, Virtual Emergency Department, Important Visit Information Prescriptions Prescriptions: No Action acetaminophen [Tylenol Extra Strength] 500 mg Tablet 1,000 mg PO Q6H PRN (Reason: Pain) propranolol 40 mg tablet 40 mg PO BID famotidine 20 mg tablet 20 mg PO BID PRN (Reason: Acid Reflux) dicyclomine 10 mg capsule 10 mg PO QID PRN (Reason: ABD PAIN) warfarin 5 mg Tablet 5 mg PO DAILY Latuda 40 mg tablet See Rx Instructions .ROUTE .COMPLEX Qty: 30 0RF Rx Instructions: 40 mg orally with evening meal; must administer with food (at least 350 calories) trazodone 50 mg Tablet 50 mg PO HS PRN (Reason: insomnia) Qty: 1 0RF Rx Instructions: home supply fluvoxamine 50 mg Tablet 50 mg PO DAILY 30 Days Qty: 30 0RF gabapentin 100 mg Tablet 200 mg PO DAILY Rx Instructions: take 200 mg daily for 10 days starting 04/14/22, then discontinue medication Referrals Referrals: Swapna Ponce PA-C [Primary Care Provider] -
[2022-04-16 00:11] LABS: Appearance Urine Clear (Clear); Bilirubin Urine Negative (Negative); Blood Urine Negative (Negative); Color Urine Yellow; Glucose Urine UA Negative (Negative); Ketones Urine Negative (Negative); Leukocyte Esterase Urine Negative (Negative); Nitrite Urine Negative (Negative); Protein Urine Negative (Negative); Specific Gravity Urine 1.011 (1.000-1.030); Urobilinogen Urine Negative (Negative); pH Urine 7.5 (4.5-7.5)
[2022-04-16 00:33] LABS: Amphetamines+Metham, Urine Neg (Neg); Barbiturates, Urine Neg (Neg); Benzodiazepine, Urine Neg (Neg); Cocaine, Urine Neg (Neg); MDMA (Ecstacy), Urine Neg (Neg); Methadone, Urine Neg (Neg); Opiate, Urine Neg (Neg); Phencyclidine, Urine Neg (Neg)
[2022-04-16 00:42] LABS: Hematocrit (blood only) 41.2 % (34.1-44.9); Hemoglobin 14.1 g/dl (12.0-16.0); Mean Corpuscular Hemoglobin 29.7 pg (25.0-34.0); Mean Corpuscular Hgb Conc 34.2 g/dL (32.0-36.0); Mean Corpuscular Volume 86.7 fL (80.0-100.0); Mean Platelet Volume 8.9 fL (9.4-12.3); Nucleated RBC # (auto) 0.02 K/uL (0-0); Nucleated RBC % (auto) 0.1 %; Platelet Count 702 K/uL (130-400); RDW Standard Deviation 44.4 fL (36.4-46.3); Red Blood Count 4.75 M/uL (3.93-5.22); White Blood Count 13.34 K/ul (4.8-10.8)
[2022-04-16 01:05] LABS: Acetaminophen < 3 ug/ml (10-30); Salicylate < 3.0 mg/dl (3.0-30)
[2022-04-16 01:10] LABS: Albumin Globulin Ratio 1.6 (0.9-2); Albumin Level 4.4 gm/dl (3.4-5.0); BUN Creatinine Ratio 7.7 (10-20); Bilirubin,Total 0.3 mg/dl (0.2-1.0); Calcium 9.3 mg/dl (8.5-10.1); Est GFR (African American) 124.2 ml/min; Est GFR (Non-African American) 107.2 ml/min; Globulin 2.7 gm/dl (2.5-4.0); Potassium 3.9 mmol/L (3.5-5.1); Total Protein 7.1 gm/dl (6.0-8.3)
[2022-04-16 01:25] LABS: Basophils % (auto) 0.7 %; Eosinophils # (auto) 0.35 K/uL (0-0.50); Eosinophils % (auto) 2.6 %; Howell-Jolly Bodies 1+; Immature Granulocytes # (auto) 0.02 K/uL (0.00-0.02); Immature Granulocytes % (auto) 0.1 %; Lymphocytes # (auto) 5.79 K/uL (1.2-3.4); Lymphocytes % (auto) 43.4 %; Monocytes # (auto) 1.71 K/uL (0.24-0.82); Monocytes % (auto) 12.8 %; Neutrophils # (auto) 5.37 K/uL (1.4-6.5); Neutrophils % (auto) 40.4 %; Pappenheimer Bodies 1+
[2022-04-16] MEDS ORDERED: IBUPROFEN 600 MG TAB PO STA (03:30)
[2022-04-16] MEDS ORDERED: ACETAMINOPHEN 500 MG TAB PO STA (03:37)
[2022-04-16] MEDS ORDERED: BISMUTH SUBSALICYLATE LIQD 236 ML PO PRN (04:42)
[2022-04-16] MEDS ORDERED: SODIUM CHLORIDE 0.65% NA SOLN 45 ML (OCEAN) PRN (04:42)
[2022-04-16] MEDS ORDERED: MAGNESIUM HYDROXIDE SUSP 30 ML UDC PO PRN (04:42)
[2022-04-16] MEDS ORDERED: ALUMINUM/MAGNESIUM SUSP 30 ML UDC PO PRN (04:42)
[2022-04-16] MEDS ORDERED: ACETAMINOPHEN 325 MG TAB PO PRN (04:42)
[2022-04-16] MEDS: hydrOXYzine HCl 25 MG TAB PO PRN (05:41)
[2022-04-16] MEDS ORDERED: traZODone HCL 50 MG TAB PO PRN (13:32)
[2022-04-16] MEDS ORDERED: FAMOTIDINE 20 MG TAB PO PRN (13:32)
--- NOTE | 2022-04-16 13:32 | History & Physical ---
Date of Service April 16, 2022 Impression / Recommendations Impression The patient is a 21-year-old woman has a history of MDD with psychotic features, PTSD, Brock brock disease, superior mesenteric venous thrombus, re-admitted after recent discharge for SI with plan and intent and unable to safety plan for outside of the hospital with increased auditory hallucinations in context of recent care transitions and gabapentin taper.Diagnostically consistent with major depressive disorder with psychotic features vs complex PTSD component and restrictive eating disorder and possible cluster B traits/component to presentation.The patient is deemed unstable and requires psychiatric hosp italization for diagnostic clarification, safety and stabilization, medication management and development of further coping skills. Discussed medication treatment options in detail. She would like to continue with and consented to Luvox and Latuda and Buspar. For the short time she would like to have risperidone available as a prn in case the voices intensify. Reviewed side effects of Latuda and risperidone, and increased risk of side effects with dual antipsychotics, including but not limited to: movement (TD, NMS), cardiac (QTc prolongation), and metabolic (stroke, insulin resistance) and reviewed recent fasting lipid and glucose labwork on chart and AIMS done with score of 0. Reviewed side effects of Luvox including but not limited to: GI, MERCADO, sexual side effects, and counseled on black box warning of potential for emergence of or increased SI and need to let staff know should this occur or should they feel unsafe. Also discussed importance of seeking emergency care following discharge if this side effect occurs in the future. Reviewed side effects of Buspar including but not limited to: GI symptoms, dizziness. MNPR due to asplenia with increased infection risk and other medical co- morbidities with increased bleeding risk on Coumadin (1) Depression with suicidal ideation: (2) Suicidal ideation: (3) Eating disorder, unspecified: (4) Acquired asplenia: (5) Superior mesenteric vein thrombosis: (6) Brock brock disease: (7) PTSD (post-traumatic stress disorder): (8) MDD (major depressive disorder), recurrent, severe, with psychosis: Plan 04/16/22: The patient was admitted to the [facility]) on q15 min checks (behavioral with suicide precautions) for safety. The patient will participate in group, recreational, and milieu therapies and will be offered additional individual and family sessions as clinically appropriate. -Continue Latuda 40mg (but will switch to with lunch instead of with dinner as symptoms are worse in late afternoon) and Luvox 50mg qd and Buspar 10mg BID. -Continue trazodone 50mg qhs prn for insomnia. -Discontinue gabapentin -Risperidone 0.5mg BID prn for agitation/anxiety/psychosis Inventory Assets Strengths: housing, employed, good support from Needs: increased coping skills, increased outpatient services, medication adjustments Suicide Risk Level Suicide Risk Level Comments: High-Moderate due to depression with SI with plan and command auditory hallucinations prior to admission but feels safe in the hospital, able to safety contract and agrees to continue to let nursing/staff know should she develop plan, intent, if the voices intensify or feels unable to remain safe while in the hospital and she been following recommendations including spending time in the group room when this occurs or asking for prn medication with good effect. Risk Factors Assessment : Yes Do You Have Access To A Gun?: No Health Problems: Yes Mental Health Diagnoses: Yes Substance Use Disorders: No Previous Attempt: Yes Family History of Suicide: No Previous Psychiatric Hospitalization: Yes Hopelessness: Yes Protective Factors Assessment : Yes Employed: Yes ([employer]) Stable Relationships: Yes Supportive Family: Yes Psychiatric History Identifying Data MAKENZIE COSTA is a 21-year-old F who currently lives in [place] with her and in-laws, has a history of MDD with psychotic features, PTSD, Brock brock disease, superior mesenteric venous thrombus, asplenia and was admitted on 04/16/22 04:42 on a 302 involuntary commitment for SI with plan and intent of cutting her wrists or overdosing on medication. Chief Complaint "I started to hear voices telling me to hurt myself, they've gotten really bad". History of Present Illness Makenzie represents for psychiatric admission after recent admission last week from 04/05/22-04/09/22 for similar symptoms of depression with SI with plan. She was started on fluvoxamine and her Latuda dose was increased with improvement in mood and she was discharged with psychiatric and outpatient therapy follow-up. She was brought to the ED yesterday evening by police after she told her [id number] she was having increased SI and spoke with [facility] Crisis services but was unable to safety plan and refused to seek voluntary treatment. 302 petitioning statement completed by [facility] home health clinician notes: "I reached out to Makenzie Costa to offer some support and services to her. Makenzie disclosed to me that she is having extreme suicidal thoughts with plans on overdosing or slitting her wrist. She has access to her medications and sharp objects around the house. Makenzie has intentions on fulfilling her plans and after I safety planned she stated she will still find another way." Today she continues to endorse depression with hopelessness and SI stating thoughts of strangling herself this morning but came to nursing to report these thoughts and remained in the group room, adjacent to the nurses station until these thoughts diminished. States she "was in a good spot with aftercare and my medications were working" after she left but then she developed increased anxiety and three days ago developed "command auditory hallucinations". She describes the voices as similar to the past in that they tell her she is "worthless and not good enough" but also starting telling her to hurt herself by overdosing or slitting her wrist. She feels they have been worsening over the last three days. In the past risperidone worked well for the voices but "it made me not myself" so she had switched to Latuda. States at home she had been eating every meal and taking the Latuda at dinner with enough calories. She saw her PCP shortly after discharge and was started on Buspar as she reported increased anxiety. She feels afternoons are the hardest time of the day as the voices often tend to get worse and anxiety increases. She also endorses feeling more paranoid noting "I'm more fearful that someone is watching me even though I know that no one is in my room". She also reported an episode of purging after eating breakfast this morning as she continues to struggle with low self-esteem and feeling a need to restrict or purge food. She has been taking her medications with no new side effects. Psychiatric ROS notable for history of trauma/PTSD, hx psychosis with depressive episode, history of food restriction. Past Psychiatric History Current Psychiatric Diagnosis: MDD with SI Outpatient Services: set up with [facility] after recent admission. Given information to reconnect with case management services at [facility]. Previous Psych Admissions: multiple: [facility] last week March 2022 and May 2021, previously at the [facility] in early 2020 and [place] in 2019 status post overdose Do You Have Access To A Gun?: No History of Previous Suicide Attempt: Yes Describe Attempts in the Past: Overdose of prescription sleeping pills in 2019 Past Medication Trials: History of fluoxetine, Effexor, Haldol, risperidone, mirtazapine, Lexapro, sertraline, trazodone Past Head Trauma/Neuro History History of Concussion/Seizure: No Allergies Allergy/AdvReac Type Severity Reaction Status Date / Time vancomycin Allergy Intermediate Red/Itchy Verified 03/31/22 19:40 skin Home Medications Medication Instructions Recorded Confirmed Type acetaminophen 500 mg tablet 1,000 mg PO Q6H PRN Pain 03/09/21 04/16/22 History (Tylenol Extra Strength) famotidine 20 mg tablet 20 mg PO BID PRN Acid Reflux 03/09/21 04/16/22 History propranolol 40 mg tablet 40 mg PO BID 03/09/21 04/16/22 History dicyclomine 10 mg capsule 10 mg PO QID PRN ABD PAIN 06/22/21 04/16/22 History lurasidone 40 mg tablet (Latuda) See Rx Instructions .Route 04/08/22 04/16/22 Rx .COMPLEX #30 tabs fluvoxamine 50 mg tablet 50 mg PO DAILY 30 days #30 tabs 04/09/22 04/16/22 Rx trazodone 50 mg tablet 50 mg PO HS PRN insomnia #1 tab 04/09/22 04/16/22 Rx gabapentin 100 mg tablet 200 mg PO DAILY 04/16/22 04/16/22 History warfarin 2.5 mg tablet See Rx Instructions .Route .COMPLEX 04/16/22 04/16/22 History warfarin 5 mg tablet See Rx Instructions .Route .COMPLEX 04/16/22 04/16/22 History Family History Family History of: Depression Alcohol History Hx of Alcohol Use Over the Past 12 Months: No AUDIT Total Score: 0 rare social use Smoking Use Have You Smoked or Used Tobacco Products in the Last 30 Days: No Smoking Status: Former smoker Smoking packs per day: 0 Substance History Hx of Prescription Med Misuse Over the Past 12 Months: No Hx of Over the Counter Med Misuse Over the Past 12 Months: No Hx of Inhalent Misuse Over the Past 12 Months: No Hx of Organic Substance Use Over the Past 12 Months: No Hx of Illegal Substances/Street Drug Use Over Past 12 Months: No Problems as a Result of Past Substance Use: None Identified Problems as a Result of Past Substance Use Comments: none Personal History Living Arrangements: Apartment Living Arrangements Comments: PT lives with and MIL, NATALI, and 's grandmother Highest Grade Completed: Some College Employment Status: [employer] Employed Marital Status: Number Of Children: 0 Beliefs That Will Affect Care: None Current Legal Problems: No Hx Legal Problems: No Hx Traumatic Life Events: Yes Patient History Medical History Asplenia Eating disorder, unspecified Intermittent asthma Major depressive disorder with psychotic 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 PTSD (post-traumatic stress disorder) Superior mesenteric vein thrombosis Thrombocytosis Surgical History History of splenectomy Family History Denies family history of Coronary heart disease Social History Smoking Status: Former smoker Hx Alcohol Use: No Hx Substance Use: No Preferred Language: Thai Communication Ability: Effective Case Operator Required: No Beliefs That Will Affect Care: None marital status: Current Living Situation: Significant Other How many Children do You have: 0 Feels Safe at Home: Yes Assistive Devices: None Review of Systems Review of Systems: All systems reviewed & are unremarkable except as noted in HPI & below Physical Exam Psychiatric: Orientation: alert and oriented x 3 Apperance: appropriately dressed and + disheveled Eye Contact: + fair eye contact Motor Behavior: no abnormal motor movements Speech: normal rate/rhythm/volume of speech Affect: + depressed affect and + flat affect Mood: + depressed mood and + irritable mood Thought Process: + concrete thought process Thought Content: reality based without delusions Suicidal Thoughts: denies suicidal intent; + reports suicidal thoughts and + reports suicidal plan (not for here but if outside the hospital) Homicidal Thoughts: denies homicidal thoughts Hallucinations: + auditory hallucinations; no visual hallucinations Cognition: recent memory grossly intact, remote memory grossly intact, attention grossly intact and language grossly intact Estimated Intelligence: consistent with education level Insight: + limited insight Judgement: + limited judgement Vital Signs (Past 24 Hours): Last Vital Signs Temp 36.8 C 04/16/22 06:00 Pulse 67 04/16/22 06:00 Resp 16 04/16/22 06:00 BP 116/79 04/16/22 06:00 Pulse Ox 99 04/16/22 06:00 O2 Del Method 04/16/22 06:00 Exam Statement: A physical exam was performed in the ED by Dr. Gates for the purposes of medical clearance. I accept that physical as correct and adequate for the purposes of the inpatient physical exam. Results & Data ([facility]) Laboratory Results Laboratory Results - last 24 hr 04/15/22 04/15/22 04/15/22 23:47 23:47 23:47 WBC RBC Hgb Hct MCV MCH MCHC RDW Std Deviation RDW Coeff of Toni Plt Count MPV Immature Gran % (Auto) Neut % (Auto) Lymph % (Auto) [place] % (Auto) Eos % (Auto) Baso % (Auto) Neut # (Auto) Lymph # (Auto) [place] # (Auto) Eos # (Auto) Baso # (Auto) Immature Gran # (Auto) Absolute Nucleated RBC Nucleated RBC % (auto) [place]heimer Bodies [place] Bodies Sodium Potassium Chloride Carbon Dioxide Anion Gap BUN Creatinine Est Cr Clr Drug Dosing Est GFR ( Amer) Est GFR (Non-Af Amer) BUN/Creatinine Ratio Glucose Calcium Total Bilirubin AST ALT Alkaline Phosphatase Total Protein Albumin Globulin Albumin/Globulin Ratio TSH Urine Color Yellow Urine Appearance Clear Urine pH 7.5 Ur Specific Posey 1.011 Urine Protein Negative Urine Glucose (UA) Negative Urine Ketones Negative Urine Blood Negative Urine Nitrite Negative Urine Bilirubin Negative Urine Urobilinogen Negative Ur Leukocyte Esterase Negative Salicylates Urine Opiates Screen Neg Ur Methadone, Qual Neg Acetaminophen Urine Barbiturates Neg Ur Phencyclidine (PCP) Neg U Amphetamin/Meth Scrn Neg MDMA (Ecstasy) Screen Neg U Benzodiazepines Scrn Neg Ur Cocaine Metabolite Neg U Marijuana (THC) Screen Neg Ethyl Alcohol mg/dL SARS-CoV-2, RNA, NAAT NEGATIVE 04/15/22 04/15/22 04/15/22 23:55 23:55 23:55 WBC 13.34 H RBC 4.75 Hgb 14.1 Hct 41.2 MCV 86.7 MCH 29.7 MCHC 34.2 RDW Std Deviation 44.4 RDW Coeff of Toni 14.0 Plt Count 702 H MPV 8.9 L Immature Gran % (Auto) 0.1 Neut % (Auto) 40.4 Lymph % (Auto) 43.4 [place] % (Auto) 12.8 Eos % (Auto) 2.6 Baso % (Auto) 0.7 Neut # (Auto) 5.37 Lymph # (Auto) 5.79 H [place] # (Auto) 1.71 H Eos # (Auto) 0.35 Baso # (Auto) 0.10 Immature Gran # (Auto) 0.02 Absolute Nucleated RBC 0.02 H Nucleated RBC % (auto) 0.1 [place]enheimer Bodies 1+ [place] Bodies 1+ Sodium 138 Potassium 3.9 Chloride 105 Carbon Dioxide 23 Anion Gap 10 BUN 6 Creatinine 0.78 Est Cr Clr Drug Dosing 108.0 Est GFR ( Amer) 124.2 Est GFR (Non-Af Amer) 107.2 BUN/Creatinine Ratio 7.7 L Glucose 108 H Calcium 9.3 Total Bilirubin 0.3 AST 77 H ALT 110 H Alkaline Phosphatase 143 H Total Protein 7.1 Albumin 4.4 Globulin 2.7 Albumin/Globulin Ratio 1.6 TSH 5.949 H Urine Color Urine Appearance Urine pH Ur Specific [place] Urine Protein Urine Glucose (UA) Urine Ketones Urine Blood Urine Nitrite Urine Bilirubin Urine Urobilinogen Ur Leukocyte Esterase Salicylates Urine Opiates Screen Ur Methadone, Qual Acetaminophen Urine Barbiturates Ur Phencyclidine (PCP) U Amphetamin/Meth Scrn MDMA (Ecstasy) Screen U Benzodiazepines Scrn Ur Cocaine Metabolite U Marijuana (THC) Screen Ethyl Alcohol mg/dL SARS-CoV-2, RNA, NAAT 04/15/22 04/15/22 23:55 23:55 WBC RBC Hgb Hct MCV MCH MCHC RDW Std Deviation RDW Coeff of Toni Plt Count MPV Immature Gran % (Auto) Neut % (Auto) Lymph % (Auto) [place] % (Auto) Eos % (Auto) Baso % (Auto) Neut # (Auto) Lymph # (Auto) [place] # (Auto) Eos # (Auto) Baso # (Auto) Immature Gran # (Auto) Absolute Nucleated RBC Nucleated RBC % (auto) [place]heimer Bodies [place] Bodies Sodium Potassium Chloride Carbon Dioxide Anion Gap BUN Creatinine Est Cr Clr Drug Dosing Est GFR ( Amer) Est GFR (Non-Af Amer) BUN/Creatinine Ratio Glucose Calcium Total Bilirubin AST ALT Alkaline Phosphatase Total Protein Albumin Globulin Albumin/Globulin Ratio TSH Urine Color Urine Appearance Urine pH Ur Specific [place] Urine Protein Urine Glucose (UA) Urine Ketones Urine Blood Urine Nitrite Urine Bilirubin Urine Urobilinogen Ur Leukocyte Esterase Salicylates < 3.0 L Urine Opiates Screen Ur Methadone, Qual Acetaminophen < 3 L Urine Barbiturates Ur Phencyclidine (PCP) U Amphetamin/Meth Scrn MDMA (Ecstasy) Screen U Benzodiazepines Scrn Ur Cocaine Metabolite U Marijuana (THC) Screen Ethyl Alcohol mg/dL < 10.0 SARS-CoV-2, RNA, NAAT Current Inpatient Medications Current Inpatient Medications: Current Inpatient Medications Acetaminophen (Acetaminophen 325 Mg Tab) 650 mg PO Q4H PRN PRN Reason: Headache or Minor Fever Stop: 05/16/22 04:41 Al Hydrox/Mg Hydrox/Simethicone (Aluminum/Magnesium Susp 30 Ml Udc) 30 ml PO Q4H PRN PRN Reason: GI Upset Stop: 05/16/22 04:41 Bismuth Subsalicylate (Bismuth Subsalicylate Liqd 236 Ml) 15 ml PO PRN PRN PRN Reason: Loose Stool Stop: 05/16/22 04:41 Hydroxyzine HCl (Hydroxyzine Hcl 25 Mg Tab) 50 mg PO HSZ PRN PRN Reason: Insomnia Stop: 05/16/22 04:41 Last Admin: 04/16/22 05:41 Dose: 50 mg Hydroxyzine HCl (Hydroxyzine Hcl 25 Mg Tab) 25 mg PO Q4H PRN PRN Reason: Anxiety Stop: 05/16/22 04:41 Magnesium Hydroxide (Magnesium Hydroxide Susp 30 Ml Udc) 30 ml PO DAILY PRN PRN Reason: Constipation Stop: 05/16/22 04:41 Sodium Chloride (Sodium Chloride 0.65% Na Soln 45 Ml ([place])) 1 - 2 sprays NA PRN PRN PRN Reason: Nasal Dryness/Congestion Stop: 05/16/22 04:41
[2022-04-16] MEDS: fluvoxaMINE MALEATE 50 MG TAB PO SCH (14:21)
[2022-04-16 14:41] LABS: Prothrombin Time 20.3 Seconds (9.0-12.0)
[2022-04-16] MEDS ORDERED: WARFARIN SOD 2.5 MG TAB PO SCH (16:30)
[2022-04-16] MEDS ORDERED: WARFARIN SOD 5 MG TAB PO SCH (16:30)
[2022-04-16] MEDS: WARFARIN SOD 2.5 MG TAB PO SCH (17:10)
[2022-04-16] MEDS ORDERED: LURASIDONE HCL 40 MG TAB PO SCH (17:45)
[2022-04-16] MEDS: risperiDONE 0.5 MG TABLET PO PRN (18:32)
[2022-04-16] MEDS: busPIRone 5 MG TAB PO SCH (20:25)
[2022-04-16] MEDS: PROPRANOLOL HCL 20 MG TAB PO SCH (20:26)
[2022-04-17] MEDS: busPIRone 5 MG TAB PO SCH ×2 (07:52→22:26)
[2022-04-17] MEDS: fluvoxaMINE MALEATE 50 MG TAB PO SCH (07:52)
[2022-04-17] MEDS: PROPRANOLOL HCL 20 MG TAB PO SCH ×2 (07:54→22:27)
[2022-04-17 08:07] LABS: INR 1.8 (0.9-1.1); Prothrombin Time 18.4 Seconds (9.0-12.0)
[2022-04-17] MEDS: risperiDONE 0.5 MG TABLET PO PRN (08:31)
--- NOTE | 2022-04-17 09:01 | Psychiatric Progress Note ---
Date of Service April 17, 2022 Impression / Recommendations Impression The patient is a 21-year-old woman has a history of MDD with psychotic features, PTSD, Brock brock disease, superior mesenteric venous thrombus, re-admitted after recent discharge for SI with plan and intent and unable to safety plan for outside of the hospital with increased auditory hallucinations in context of recent care transitions and gabapentin taper.Diagnostically consistent with major depressive disorder with psychotic features vs complex PTSD component and restrictive eating disorder and possible cluster B traits/component to presentation.The patient is deemed unstable and requires psychiatric hosp italization for diagnostic clarification, safety and stabilization, medication management and development of further coping skills. MNPR due to asplenia with increased infection risk and other medical co- morbidities with increased bleeding risk on Coumadin 04/17/22: Ongoing depression with SI and AH. Finding some benefit from risperidone and no side effects. Reviewed medication options and she wants to stop the Latuda and start scheduled risperidone at lower dose than past 1.5mg which gave her side effects. Reviewed that mood shifts could represent BPAD type II and that risperidone can help with mood stabilization for this. (1) Depression with suicidal ideation: (2) Suicidal ideation: (3) Eating disorder, unspecified: (4) Acquired asplenia: (5) Superior mesenteric vein thrombosis: (6) Brock brock disease: (7) PTSD (post-traumatic stress disorder): (8) MDD (major depressive disorder), recurrent, severe, with psychosis: Plan 04/17/22: Stop Latuda. Schedule risperidone 0.5mg BID. Continue with Luvox, Buspar and Trazodone. 04/16/22: The patient was admitted to the [facility] ([facility] unit) on q15 min checks (behavioral with suicide precautions) for safety. The patient will participate in group, recreational, and milieu therapies and will be offered additional individual and family sessions as clinically appropriate. -Continue Latuda 40mg (but will switch to with lunch instead of with dinner as symptoms are worse in late afternoon) and Luvox 50mg qd and Buspar 10mg BID. -Continue trazodone 50mg qhs prn for insomnia. -Discontinue gabapentin -Risperidone 0.5mg BID prn for agitation/anxiety/psychosis Inventory Assets Strengths: housing, employed, good support from Needs: increased coping skills, increased outpatient services, medication adjustments Suicide Risk Level Suicide Risk Level Comments: High-Moderate due to depression with SI with plan and command auditory hallucinations prior to admission but feels safe in the hospital, able to safety contract and agrees to continue to let nursing/staff know should she develop plan, intent, if the voices intensify or feels unable to remain safe while in the hospital and she been following recommendations including spending time in the group room when this occurs or asking for prn medication with good effect. Risk Factors Assessment : Yes Do You Have Access To A Gun?: No Health Problems: Yes Mental Health Diagnoses: Yes Substance Use Disorders: No Previous Attempt: Yes Family History of Suicide: No Previous Psychiatric Hospitalization: Yes Hopelessness: Yes Protective Factors Assessment : Yes Employed: Yes ([employer]) Stable Relationships: Yes Supportive Family: Yes Interval History Identifying Information MAKENZIE COSTA is a 21-year-old F who currently lives in [place] with her and in-laws, has a history of MDD with psychotic features, PTSD, Brock brcok disease, superior mesenteric venous thrombus, asplenia and was admitted on 04/16/22 04:42 on a 302 involuntary commitment for SI with plan and intent of cutting her wrists or overdosing on medication. Chief Complaint "The risperidone is helping a lot". Review of Systems Sleep Information Total Hours of Sleep: 6.5 Sleep Comments: new admit Meal Information Percent Meal Consumed - Breakfast: 75 Percent Meal Consumed - Lunch: 0 Percent Meal Consumed - Dinner: 50 Subjective Subjective Patient was seen & assessed and interval progress reviewed with treatment team nursing and social work. Reporting SI last night but bright affect on interactions. Asked for and received prn risperidone last night. Attending some groups. Today is eating her meals and more interactive. Feels the voices have reduced in intensity and she's better able to use distraction strategies and coping skills with addition of risperidone. Hasn't noticed any benefit with shifting timing of Latuda. Denies any medication side effects. States the SI "is still there but able to distract myself more today". Reviewed that at home she's noticed pattern of going a few days with increased energy, 'cleaning all day" and needing only a few hours of sleep and then going into more depressed mood. Physical Exam Psychiatric Orientation: alert and oriented x 3 Apperance: appropriately dressed Eye Contact: + fair eye contact Motor Behavior: no abnormal motor movements Speech: normal rate/rhythm/volume of speech Affect: + depressed affect Mood: + depressed mood Thought Process: + concrete thought process Thought Content: reality based without delusions Suicidal Thoughts: denies suicidal intent; + reports suicidal thoughts and + reports suicidal plan (not for here but if outside the hospital) Homicidal Thoughts: denies homicidal thoughts Hallucinations: + auditory hallucinations; no visual hallucinations Cognition: recent memory grossly intact, remote memory grossly intact, attention grossly intact and language grossly intact Estimated Intelligence: consistent with education level Insight: + limited insight Judgement: + limited judgement Vital Signs (Past 24 Hours) Last Vital Signs Temp 37 C 04/17/22 06:50 Pulse 89 04/17/22 07:50 Resp 16 04/17/22 06:50 BP 108/73 04/17/22 07:50 Pulse Ox 99 04/16/22 06:00 O2 Del Method 04/16/22 06:00 Results & Data ([facility]) Laboratory Results Laboratory Results - last 24 hr 04/16/22 04/17/22 14:00 07:10 PT 20.3 H 18.4 H INR 2.0 H 1.8 H Current Inpatient Medications Current Inpatient Medications: Current Inpatient Medications Acetaminophen (Acetaminophen 325 Mg Tab) 650 mg PO Q4H PRN PRN Reason: Headache or Minor Fever Stop: 05/16/22 04:41 Al Hydrox/Mg Hydrox/Simethicone (Aluminum/Magnesium Susp 30 Ml Udc) 30 ml PO Q4H PRN PRN Reason: GI Upset Stop: 05/16/22 04:41 Bismuth Subsalicylate (Bismuth Subsalicylate Liqd 236 Ml) 15 ml PO PRN PRN PRN Reason: Loose Stool Stop: 05/16/22 04:41 Buspirone HCl (Buspirone 5 Mg Tab) 10 mg PO BID RENU Stop: 05/16/22 20:59 Last Admin: 04/17/22 07:52 Dose: 10 mg Dicyclomine HCl (Dicyclomine Hcl 10 Mg Cap) 10 mg PO QID PRN PRN Reason: ABD PAIN Stop: 05/16/22 13:31 Famotidine (Famotidine 20 Mg Tab) 20 mg PO BID PRN PRN Reason: Acid Reflux Stop: 05/16/22 13:31 Fluvoxamine Maleate (Fluvoxamine Maleate 50 Mg Tab) 50 mg PO DAILY RENU Stop: 05/16/22 13:59 Last Admin: 04/17/22 07:52 Dose: 50 mg Hydroxyzine HCl (Hydroxyzine Hcl 25 Mg Tab) 50 mg PO HSZ PRN PRN Reason: Insomnia Stop: 05/16/22 04:41 Last Admin: 04/16/22 05:41 Dose: 50 mg Hydroxyzine HCl (Hydroxyzine Hcl 25 Mg Tab) 25 mg PO Q4H PRN PRN Reason: Anxiety Stop: 05/16/22 04:41 Lurasidone HCl (Lurasidone Hcl 40 Mg Tab) 40 mg PO DAILYBL RENU Stop: 05/17/22 11:59 Magnesium Hydroxide (Magnesium Hydroxide Susp 30 Ml Udc) 30 ml PO DAILY PRN PRN Reason: Constipation Stop: 05/16/22 04:41 Propranolol HCl (Propranolol Hcl 20 Mg Tab) 40 mg PO BID RENU Stop: 05/16/22 20:59 Last Admin: 04/17/22 07:54 Dose: 40 mg Risperidone (Risperidone 0.5 Mg Tablet) 0.5 mg PO BID PRN PRN Reason: Anxiety/Agitation/Psychosis Stop: 05/16/22 16:28 Last Admin: 04/17/22 08:31 Dose: 0.5 mg Sodium Chloride (Sodium Chloride 0.65% Na Soln 45 Ml (Colp)) 1 - 2 sprays NA PRN PRN PRN Reason: Nasal Dryness/Congestion Stop: 05/16/22 04:41 Trazodone HCl (Trazodone Hcl 50 Mg Tab) 50 mg PO HS PRN PRN Reason: insomnia Stop: 05/16/22 13:31 Last Admin: 04/16/22 20:26 Dose: 50 mg Warfarin Sodium (Warfarin Sod 5 Mg Tab) 5 mg PO [email or web address] [facility] Stop: 05/17/22 15:59 Warfarin Sodium (Warfarin Sod 2.5 Mg Tab) 2.5 mg PO [email or web address] [facility] Stop: 05/16/22 15:59 Last Admin: 04/16/22 17:10 Dose: 2.5 mg Mental Health & Subst Abuse Tx Psychiatrist Name of Psychiatrist: [facility] Psychiatrist's Date of Appointment with Psychiatrist: 04/27/22 Time of Appointment with Psychiatrist: 10:15am Psychiatric Appointment Comment: [address] [place], [place] Therapist Name of Therapist: [facility] Therapist's Date of Therapist Appointment: 04/24/22 Time of Therapist Appointment: 11 am Therapy Appointment Comment: [email or web address], [address], [place], [place] Verification Lead Name of Verification Lead: Andreea Smith Post Discharge Appointments Primary Care Physician Name Of Family Doctor: Bruna Chaparro Primary Care Contact Information Discharge Discharge Address: [address] [place] [address]
[2022-04-17] MEDS: hydrOXYzine HCl 25 MG TAB PO PRN ×2 (10:21→14:43)
[2022-04-17] MEDS ORDERED: LURASIDONE HCL 40 MG TAB PO SCH (12:00)
[2022-04-17] MEDS: WARFARIN SOD 5 MG TAB PO SCH (17:08)
[2022-04-17] MEDS: risperiDONE 0.5 MG TABLET PO SCH (22:28)
[2022-04-18 08:27] LABS: INR 1.7 (0.9-1.1); Prothrombin Time 17.9 Seconds (9.0-12.0)
[2022-04-18] MEDS: PROPRANOLOL HCL 20 MG TAB PO SCH ×2 (08:35→20:49)
[2022-04-18] MEDS: fluvoxaMINE MALEATE 50 MG TAB PO SCH (08:35)
[2022-04-18] MEDS: busPIRone 5 MG TAB PO SCH ×2 (08:35→20:49)
[2022-04-18] MEDS: risperiDONE 0.5 MG TABLET PO SCH ×2 (08:36→16:10)
[2022-04-18] MEDS: DICYCLOMINE HCL 10 MG CAP PO PRN (09:56)
[2022-04-18] MEDS: hydrOXYzine HCl 25 MG TAB PO PRN ×2 (11:45→21:32)
[2022-04-18] MEDS: WARFARIN SOD 2.5 MG TAB PO SCH (16:10)
--- NOTE | 2022-04-18 17:00 | Psychiatric Progress Note ---
Date of Service April 18, 2022 Impression / Recommendations Impression The patient is a 21-year-old woman has a history of MDD with psychotic features, PTSD, Brock brock disease, superior mesenteric venous thrombus, re-admitted after recent discharge for SI with plan and intent and unable to safety plan for outside of the hospital with increased auditory hallucinations in context of recent care transitions and gabapentin taper.Diagnostically consistent with major depressive disorder with psychotic features vs complex PTSD component and restrictive eating disorder and possible cluster B traits/component to presentation.The patient is deemed unstable and requires psychiatric hosp italization for diagnostic clarification, safety and stabilization, medication management and development of further coping skills.302 expires on 04/20/22 in the evening. MNPR due to asplenia with increased infection risk and other medical co- morbidities with increased bleeding risk on Coumadin 04/17/22: Ongoing depression with SI and AH. Finding some benefit from risperidone and no side effects. Reviewed medication options and she wants to stop the Latuda and start scheduled risperidone at lower dose than past 1.5mg which gave her side effects. Reviewed that mood shifts could represent BPAD type II and that risperidone can help with mood stabilization for this. (1) Depression with suicidal ideation: (2) Suicidal ideation: (3) Eating disorder, unspecified: (4) Acquired asplenia: (5) Superior mesenteric vein thrombosis: (6) Brock brock disease: (7) PTSD (post-traumatic stress disorder): (8) MDD (major depressive disorder), recurrent, severe, with psychosis: Plan 04/18/22: Change timing of risperidone to qAM and 1400 to help with afternoon symptoms. Will increase trazodone to 100mg qhs to help with insomnia. Buspar and Vistaril are working well for anxiety. 04/17/22: Stop Latuda. Schedule risperidone 0.5mg BID. Continue with Luvox, Buspar and Trazodone. 04/16/22: The patient was admitted to the [facility] ([facility] inpatient mental health unit) on q15 min checks (behavioral with suicide precautions) for safety. The patient will participate in group, recreational, and milieu therapies and will be offered additional individual and family sessions as clinically appropriate. -Continue Latuda 40mg (but will switch to with lunch instead of with dinner as symptoms are worse in late afternoon) and Luvox 50mg qd and Buspar 10mg BID. -Continue trazodone 50mg qhs prn for insomnia. -Discontinue gabapentin -Risperidone 0.5mg BID prn for agitation/anxiety/psychosis Inventory Assets Strengths: housing, employed, good support from Needs: increased coping skills, increased outpatient services, medication adjustments Suicide Risk Level Suicide Risk Level Comments: High-Moderate due to depression with SI with plan and command auditory hallucinations prior to admission but feels safe in the hospital, able to safety contract and agrees to continue to let nursing/staff know should she develop plan, intent, if the voices intensify or feels unable to remain safe while in the hospital and she been following recommendations including spending time in the group room when this occurs or asking for prn medication with good effect. Risk Factors Assessment : Yes Do You Have Access To A Gun?: No Health Problems: Yes Mental Health Diagnoses: Yes Substance Use Disorders: No Previous Attempt: Yes Family History of Suicide: No Previous Psychiatric Hospitalization: Yes Hopelessness: Yes Protective Factors Assessment : Yes Employed: Yes ([place]) Stable Relationships: Yes Supportive Family: Yes Interval History Identifying Information MAKENZIE COSTA is a 21-year-old F who currently lives in [place] with her and in-laws, has a history of MDD with psychotic features, PTSD, Brock brock disease, superior mesenteric venous thrombus, asplenia and was admitted on 04/16/22 04:42 on a 302 involuntary commitment for SI with plan and intent of cutting her wrists or overdosing on medication. Chief Complaint "The voices are better with the risperidone but we still need to work on my mood". Review of Systems Sleep Information Total Hours of Sleep: 6.5 Sleep Comments: new admit Meal Information Percent Meal Consumed - Breakfast: 75 Percent Meal Consumed - Lunch: 95 Percent Meal Consumed - Dinner: 50 Subjective Subjective Patient was seen & assessed and interval progress reviewed with treatment team nursing and social work. She feels the risperidone is helping reduce the voices but she still finds the late afternoon very difficult for her mood with increased SI during this time. She also continues to have significant difficulty with sleep. She met with her new pillowcase folder this morning. Physical Exam Psychiatric Orientation: alert and oriented x 3 Apperance: appropriately dressed Eye Contact: + fair eye contact Motor Behavior: no abnormal motor movements Affect: + depressed affect Mood: + depressed mood Thought Process: + concrete thought process Thought Content: reality based without delusions Suicidal Thoughts: denies suicidal intent; + reports suicidal thoughts and + reports suicidal plan (not for here but if outside the hospital) Homicidal Thoughts: denies homicidal thoughts Hallucinations: + auditory hallucinations; no visual hallucinations Cognition: recent memory grossly intact, remote memory grossly intact, attention grossly intact and language grossly intact Estimated Intelligence: consistent with education level Insight: + limited insight Judgement: + limited judgement Vital Signs (Past 24 Hours) Last Vital Signs Temp 36.9 C 04/18/22 06:38 Pulse 71 04/18/22 08:30 Resp 16 04/18/22 06:38 BP 102/70 04/18/22 08:30 Pulse Ox 99 04/16/22 06:00 O2 Del Method 04/16/22 06:00 Results & Data ([facility]) Laboratory Results Laboratory Results - last 24 hr 04/18/22 08:00 PT 17.9 H INR 1.7 H Current Inpatient Medications Current Inpatient Medications: Current Inpatient Medications Acetaminophen (Acetaminophen 325 Mg Tab) 650 mg PO Q4H PRN PRN Reason: Headache or Minor Fever Stop: 05/16/22 04:41 Al Hydrox/Mg Hydrox/Simethicone (Aluminum/Magnesium Susp 30 Ml Udc) 30 ml PO Q4H PRN PRN Reason: GI Upset Stop: 05/16/22 04:41 Bismuth Subsalicylate (Bismuth Subsalicylate Liqd 236 Ml) 15 ml PO PRN PRN PRN Reason: Loose Stool Stop: 05/16/22 04:41 Buspirone HCl (Buspirone 5 Mg Tab) 10 mg PO BID RENU Stop: 05/16/22 20:59 Last Admin: 04/18/22 08:35 Dose: 10 mg Dicyclomine HCl (Dicyclomine Hcl 10 Mg Cap) 10 mg PO QID PRN PRN Reason: ABD PAIN Stop: 05/16/22 13:31 Last Admin: 04/18/22 09:56 Dose: 10 mg Famotidine (Famotidine 20 Mg Tab) 20 mg PO BID PRN PRN Reason: Acid Reflux Stop: 05/16/22 13:31 Last Admin: 04/18/22 09:57 Dose: 20 mg Fluvoxamine Maleate (Fluvoxamine Maleate 50 Mg Tab) 50 mg PO DAILY RENU Stop: 05/16/22 13:59 Last Admin: 04/18/22 08:35 Dose: 50 mg Hydroxyzine HCl (Hydroxyzine Hcl 25 Mg Tab) 50 mg PO HSZ PRN PRN Reason: Insomnia Stop: 05/16/22 04:41 Last Admin: 04/16/22 05:41 Dose: 50 mg Hydroxyzine HCl (Hydroxyzine Hcl 25 Mg Tab) 25 mg PO Q4H PRN PRN Reason: Anxiety Stop: 05/16/22 04:41 Last Admin: 04/18/22 11:45 Dose: 25 mg Magnesium Hydroxide (Magnesium Hydroxide Susp 30 Ml Udc) 30 ml PO DAILY PRN PRN Reason: Constipation Stop: 05/16/22 04:41 Propranolol HCl (Propranolol Hcl 20 Mg Tab) 40 mg PO BID RENU Stop: 05/16/22 20:59 Last Admin: 04/18/22 08:35 Dose: 40 mg Risperidone (Risperidone 0.5 Mg Tablet) 0.5 mg PO [id number] [facility] Stop: 05/18/22 15:44 Last Admin: 04/18/22 16:10 Dose: 0.5 mg Sodium Chloride (Sodium Chloride 0.65% Na Soln 45 Ml ([place])) 1 - 2 sprays NA PRN PRN PRN Reason: Nasal Dryness/Congestion Stop: 05/16/22 04:41 Trazodone HCl (Trazodone Hcl 100 Mg Tab) 100 mg PO HS PRN PRN Reason: insomnia Stop: 05/16/22 13:31 Warfarin Sodium (Warfarin Sod 5 Mg Tab) 5 mg PO [id number] [facility] Stop: 05/17/22 15:59 Last Admin: 04/17/22 17:08 Dose: 5 mg Warfarin Sodium (Warfarin Sod 2.5 Mg Tab) 2.5 mg PO [email or web address] [facility] Stop: 05/16/22 15:59 Last Admin: 04/18/22 16:10 Dose: 2.5 mg Mental Health & Subst Abuse Tx Psychiatrist Name of Psychiatrist: Evgeny Trimble Psychiatrist's Date of Appointment with Psychiatrist: 04/27/22 Time of Appointment with Psychiatrist: 10:15am Psychiatric Appointment Comment: [address] [place], [place] Therapist Name of Therapist: [facility] Therapist's Date of Therapist Appointment: 04/24/22 Time of Therapist Appointment: 11 am Therapy Appointment Comment: [email or web address], [address], [place], [place] City Supervisor Name of City Supervisor: Andreea Lyman Phone Number for City Supervisor: [phone] Case Management Appointment Comment: will meet in the home/community Post Discharge Appointments Primary Care Physician Name Of Family Doctor: Bruna Chaparro Primary Care Contact Information Discharge Discharge Address: [address] [place] [address]
[2022-04-18] MEDS: traZODone HCL 100 MG TAB PO PRN (21:57)
[2022-04-19] MEDS: DICYCLOMINE HCL 10 MG CAP PO PRN (06:23)
[2022-04-19] MEDS: busPIRone 5 MG TAB PO SCH ×2 (08:04→20:52)
[2022-04-19] MEDS: risperiDONE 0.5 MG TABLET PO SCH ×2 (08:04→14:11)
[2022-04-19] MEDS: fluvoxaMINE MALEATE 50 MG TAB PO SCH (08:04)
[2022-04-19] MEDS: PROPRANOLOL HCL 20 MG TAB PO SCH ×2 (08:04→20:52)
[2022-04-19 08:52] LABS: INR 1.7 (0.9-1.1); Prothrombin Time 17.2 Seconds (9.0-12.0)
--- NOTE | 2022-04-19 09:04 | Psychiatric Progress Note ---
Date of Service April 19, 2022 Impression / Recommendations Impression The patient is a 21-year-old woman has a history of MDD with psychotic features, PTSD, Brock brock disease, superior mesenteric venous thrombus, re-admitted after recent discharge for SI with plan and intent and unable to safety plan for outside of the hospital with increased auditory hallucinations in context of recent care transitions and gabapentin taper.Diagnostically consistent with major depressive disorder with psychotic features vs complex PTSD component and restrictive eating disorder and possible cluster B traits/component to presentation.The patient is deemed unstable and requires psychiatric hosp italization for diagnostic clarification, safety and stabilization, medication management and development of further coping skills.302 expires on 04/20/22 in the evening. MNPR due to asplenia with increased infection risk and other medical co- morbidities with increased bleeding risk on Coumadin 04/18/22:Mood improving, still with AH but no SI today and likes change in dosing of risperidone. Affect is much brighter and engaging with peers. Eating all her meals. Slept well with higher dose of trazodone. Also spent 20 minutes completing disability paperwork for her work due to being in the hospital. (1) Depression with suicidal ideation: (2) Suicidal ideation: (3) Eating disorder, unspecified: (4) Acquired asplenia: (5) 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 Needs family meeting/call with . 04/18/22: Change timing of risperidone to qAM and 1400 to help with afternoon symptoms. Will increase trazodone to 100mg qhs to help with insomnia. Buspar and Vistaril are working well for anxiety. 04/17/22: Stop Latuda. Schedule risperidone 0.5mg BID. Continue with Luvox, Buspar and Trazodone. 04/16/22: The patient was admitted to the [facility] ([facility] mental [facility] unit) on q15 min checks (behavioral with suicide precautions) for safety. The patient will participate in group, recreational, and milieu therapies and will be offered additional individual and family sessions as clinically appropriate. -Continue Latuda 40mg (but will switch to with lunch instead of with dinner as symptoms are worse in late afternoon) and Luvox 50mg qd and Buspar 10mg BID. -Continue trazodone 50mg qhs prn for insomnia. -Discontinue gabapentin -Risperidone 0.5mg BID prn for agitation/anxiety/psychosis Inventory Assets Strengths: housing, employed, good support from Needs: increased coping skills, increased outpatient services, medication adjustments Suicide Risk Level Suicide Risk Level: Moderate (q15 min suicide checks) Suicide Risk Level Comments: HModerate due to depression with SI with plan and command auditory hallucinations prior to admission but now denies SI and AH but none are command in nature and feels safe in the hospital, able to safety contract and agrees to continue to let nursing/staff know should she develop plan, intent, if the voices intensify or feels unable to remain safe while in the hospital and she been following recommendations including spending time in the group room when this occurs or asking for prn medication with good effect. Risk Factors Assessment : Yes Do You Have Access To A Gun?: No Health Problems: Yes Mental Health Diagnoses: Yes Substance Use Disorders: No Previous Attempt: Yes Family History of Suicide: No Previous Psychiatric Hospitalization: Yes Hopelessness: Yes Protective Factors Assessment : Yes Employed: Yes ([employer]) Stable Relationships: Yes Supportive Family: Yes Interval History Identifying Information MAKENZIE COSTA is a 21-year-old F who currently lives in [place] with her and in-laws, has a history of MDD with psychotic features, PTSD, Brock brock disease, superior mesenteric venous thrombus, asplenia and was admitted on 04/16/22 04:42 on a 302 involuntary commitment for SI with plan and intent of cutting her wrists or overdosing on medication. Chief Complaint "The risperidone at the new time is really helping". Review of Systems Sleep Information Total Hours of Sleep: 7 Sleep Comments: new admit Meal Information Percent Meal Consumed - Breakfast: 75 Percent Meal Consumed - Lunch: 95 Percent Meal Consumed - Dinner: 100 Subjective Subjective Patient was seen & assessed and interval progress reviewed with treatment team nursing and social work. Still some negative voices but she feels this is easier to manage with risperidone and change to second dose mid-day. No side effects from risperidone. Denies SI today. Physical Exam Psychiatric Orientation: alert and oriented x 3 Apperance: appropriately dressed and appropriately groomed Eye Contact: good eye contact Motor Behavior: no abnormal motor movements Speech: normal rate/rhythm/volume of speech Affect: euthymic affect Mood: + depressed mood; no anxious mood Thought Process: linear/logical thought process and + concrete thought process Thought Content: reality based without delusions Suicidal Thoughts: denies suicidal thoughts Homicidal Thoughts: denies homicidal thoughts Hallucinations: + auditory hallucinations; no visual hallucinations Cognition: recent memory grossly intact, remote memory grossly intact, attention grossly intact and language grossly intact Estimated Intelligence: consistent with education level Insight: + fair insight Judgement: + fair judgement Vital Signs (Past 24 Hours) Last Vital Signs Temp 36.5 C 04/18/22 20:06 Pulse 70 04/19/22 06:23 Resp 16 04/19/22 06:22 BP 107/64 04/19/22 06:23 Pulse Ox 99 04/16/22 06:00 O2 Del Method 04/16/22 06:00 Results & Data ([facility] [email or web address] Laboratory Results Laboratory Results - last 24 hr 04/19/22 08:18 PT 17.2 H INR 1.7 H Current Inpatient Medications Current Inpatient Medications: Current Inpatient Medications Acetaminophen (Acetaminophen 325 Mg Tab) 650 mg PO Q4H PRN PRN Reason: Headache or Minor Fever Stop: 05/16/22 04:41 Al Hydrox/Mg Hydrox/Simethicone (Aluminum/Magnesium Susp 30 Ml Udc) 30 ml PO Q4H PRN PRN Reason: GI Upset Stop: 05/16/22 04:41 Last Admin: 04/19/22 08:36 Dose: 30 ml Bismuth Subsalicylate (Bismuth Subsalicylate Liqd 236 Ml) 15 ml PO PRN PRN PRN Reason: Loose Stool Stop: 05/16/22 04:41 Buspirone HCl (Buspirone 5 Mg Tab) 10 mg PO BID RENU Stop: 05/16/22 20:59 Last Admin: 04/19/22 08:04 Dose: 10 mg Dicyclomine HCl (Dicyclomine Hcl 10 Mg Cap) 10 mg PO QID PRN PRN Reason: ABD PAIN Stop: 05/16/22 13:31 Last Admin: 04/19/22 06:23 Dose: 10 mg Famotidine (Famotidine 20 Mg Tab) 20 mg PO BID PRN PRN Reason: Acid Reflux Stop: 05/16/22 13:31 Last Admin: 04/18/22 09:57 Dose: 20 mg Fluvoxamine Maleate (Fluvoxamine Maleate 50 Mg Tab) 50 mg PO DAILY [facility] Stop: 05/16/22 13:59 Last Admin: 04/19/22 08:04 Dose: 50 mg Hydroxyzine HCl (Hydroxyzine Hcl 25 Mg Tab) 50 mg PO HSZ PRN PRN Reason: Insomnia Stop: 05/16/22 04:41 Last Admin: 04/18/22 21:32 Dose: 50 mg Hydroxyzine HCl (Hydroxyzine Hcl 25 Mg Tab) 25 mg PO Q4H PRN PRN Reason: Anxiety Stop: 05/16/22 04:41 Last Admin: 04/18/22 11:45 Dose: 25 mg Magnesium Hydroxide (Magnesium Hydroxide Susp 30 Ml Udc) 30 ml PO DAILY PRN PRN Reason: Constipation Stop: 05/16/22 04:41 Propranolol HCl (Propranolol Hcl 20 Mg Tab) 40 mg PO BID RENU Stop: 05/16/22 20:59 Last Admin: 04/19/22 08:04 Dose: 40 mg Risperidone (Risperidone 0.5 Mg Tablet) 0.5 mg PO [id number] [facility] Stop: 05/18/22 15:44 Last Admin: 04/19/22 08:04 Dose: 0.5 mg Sodium Chloride (Sodium Chloride 0.65% Na Soln 45 Ml ([place])) 1 - 2 sprays NA PRN PRN PRN Reason: Nasal Dryness/Congestion Stop: 05/16/22 04:41 Trazodone HCl (Trazodone Hcl 100 Mg Tab) 100 mg PO HS PRN PRN Reason: insomnia Stop: 05/16/22 13:31 Last Admin: 04/18/22 21:57 Dose: 100 mg Warfarin Sodium (Warfarin Sod 5 Mg Tab) 5 mg PO [email or web address] [facility] Stop: 05/17/22 15:59 Last Admin: 04/17/22 17:08 Dose: 5 mg Warfarin Sodium (Warfarin Sod 2.5 Mg Tab) 2.5 mg PO [email or web address] [facility] Stop: 05/16/22 15:59 Last Admin: 04/18/22 16:10 Dose: 2.5 mg Mental Health & Subst Abuse Tx Psychiatrist Name of Psychiatrist: [facility] Psychiatrist's Date of Appointment with Psychiatrist: 04/27/22 Time of Appointment with Psychiatrist: 10:15am Psychiatric Appointment Comment: [address] [place], [place] Therapist Name of Therapist: [facility] Therapist's Date of Therapist Appointment: 04/24/22 Time of Therapist Appointment: 11 am Therapy Appointment Comment: [address], [address], [place], [place] Clam Picker Name of Clam Picker: Andreea Lyman Phone Number for Clam Picker: [phone] Case Management Appointment Comment: will meet in the home/community Post Discharge Appointments Primary Care Physician Name Of Family Doctor: Bruna Chaparro Primary [facility] Contact Information Discharge Discharge Address: [address] [place] [address]
[2022-04-19] MEDS: hydrOXYzine HCl 25 MG TAB PO PRN ×2 (10:35→20:52)
[2022-04-19] MEDS: WARFARIN SOD 5 MG TAB PO SCH (15:44)
[2022-04-19] MEDS: traZODone HCL 100 MG TAB PO PRN (21:10)
[2022-04-20] MEDS: DICYCLOMINE HCL 10 MG CAP PO PRN (07:35)
[2022-04-20] MEDS: risperiDONE 0.5 MG TABLET PO SCH (08:04)
[2022-04-20] MEDS: fluvoxaMINE MALEATE 50 MG TAB PO SCH (08:04)
[2022-04-20] MEDS: PROPRANOLOL HCL 20 MG TAB PO SCH (08:04)
[2022-04-20] MEDS: busPIRone 5 MG TAB PO SCH (08:04)
[2022-04-20 08:38] LABS: INR 1.7 (0.9-1.1); Prothrombin Time 17.7 Seconds (9.0-12.0)
--- NOTE | 2022-04-20 09:05 | Discharge Summary ---
Date of Service April 20, 2022 History of Present Illness Delfina represents for psychiatric admission after recent admission last week from 04/05/22-04/09/22 for similar symptoms of depression with SI with plan. She was started on fluvoxamine and her Latuda dose was increased with improvement in mood and she was discharged with psychiatric and outpatient therapy follow-up. She was brought to the ED yesterday evening by police after she told her [id number] she was having increased SI and spoke with [facility] Crisis services but was unable to safety plan and refused to seek voluntary treatment. 302 petitioning statement completed by [facility] embalmer/funeral director notes: "I reached out to Delfina Muñoz to offer some support and services to her. Delfina disclosed to me that she is having extreme suicidal thoughts with plans on overdosing or slitting her wrist. She has access to her medications and sharp objects around the house. Delfina has intentions on fulfilling her plans and after I safety planned she stated she will still find another way." Today she continues to endorse depression with hopelessness and SI stating thoughts of strangling herself this morning but came to nursing to report these thoughts and remained in the group room, adjacent to the nurses station until these thoughts diminished. States she "was in a good spot with aftercare and my medications were working" after she left but then she developed increased anxiety and three days ago developed "command auditory hallucinations". She describes the voices as similar to the past in that they tell her she is "worthless and not good enough" but also starting telling her to hurt herself by overdosing or slitting her wrist. She feels they have been worsening over the last three days. In the past risperidone worked well for the voices but "it made me not myself" so she had switched to Latuda. States at home she had been eating every meal and taking the Latuda at dinner with enough calories. She saw her PCP shortly after discharge and was started on Buspar as she reported increased anxiety. She feels afternoons are the hardest time of the day as the voices often tend to get worse and anxiety increases. She also endorses feeling more paranoid noting "I'm more fearful that someone is watching me even though I know that no one is in my room". She also reported an episode of purging after eating breakfast this morning as she continues to struggle with low self-esteem and feeling a need to restrict or purge food. She has been taking her medications with no new side effects. Psychiatric ROS notable for history of trauma/PTSD, hx psychosis with depressive episode, history of food restriction. Physical Exam Vital Signs (Past 24 Hours) Last Vital Signs Temp 36.9 C 04/20/22 06:57 Pulse 85 04/20/22 06:57 Resp 18 04/20/22 06:57 BP 110/69 04/20/22 06:57 Pulse Ox 99 04/16/22 06:00 O2 Del Method 04/16/22 06:00 See admission H&P and DOD summary. Principal Diagnosis Major depressive disorder, recurrent, severe with psychotic features Psychiatric Data See daily stay summary. In short, patient was engaged with the social/therapeutic milieu of the unit, safety was maintained and the patient was cooperative with care. Medication changes included discontinuation of Latuda, initiation of risperidone and increase in trazodone and they tolerated this well. Baseline labs of fasting glucose, fasting lipid profile, and weight were preformed on 04/06/22 and WNL. Recommend repeat weight in one month (consider blinded weight given hx eating disorder). Recommend repeat fasting glucose, HbA1c and fasting lipid profile every 12 weeks and then annually. If symptoms arise recommend checking BP, EKG, prolactin level as clinically indicated or relevant. A family session was held and safety plan was completed prior to discharge. She had a previous script for Buspar sent by her PCP so new script was not ordered for this. Understands her warfarin regimen and importance of continuing to follow-up as needed for INR checks. She significantly more engaged with treatment during this admission, attended all groups, interacted with peers during free time, ate all of her meals including snacks and was future-oriented about engaging with increased aftercare services. Diagnostically suspect also component of complex PTSD contributing to ongoing intermittent voices. The voices are no longer "mean" in nature, she finds she can easily distract herself if the voices occur, she finds the risperidone effective for eliminating the voices if they occur before a dose and has not had any command auditory hallucinations in the days leading up to discharge. She actively and insightfully participated in safety planning and in discussions about ways to seek support and recognizing warning signs, including command auditory hallucinations, and utilizing coping skills. Reviewed mobile apps that could be used for additional ways to have her safety plan and contacts easily available should thoughts of SI re-emerge in the future. Reviewed importance of seeking emergency care should SI intensify, worsen or should she feel unsafe in the future which she agrees to do. On the day of discharge she stated her mood was "good and excited" and remained future-oriented including seeing her in- laws, her , relaxing, and getting back into "my normal routine" and reading and engaging in aftercare appointments for psychiatry, therapy, case management and peer support. Day of Discharge Assessment Today the patient voices readiness for discharge. They note improvement in mood and anxiety. They deny thoughts of harm to self or others. Thoughts are organized and they are clinically improved from admission. There is no evidence of acute psychosis nor responding to internal stimuli; she continues to experience intermittent auditory hallucinations at times but none today and when these do occur the voices are not command in nature, quiet, and she can easily distract herself if she hears them. They improved in the hospital with support and medication adjustments. They agree to take medications as prescribed and keep follow-up appointments. At the time of the discharge they are deemed to be stable and appropriate for outpatient level of care. They are not deemed to be at imminent risk of harm to self or others. They are aware of emergency and crisis services. Knows to call 911 or go to nearest emergency care center if in a crisis which cannot be handled as an outpatient. Transition of Care Transition Of Care Record: was reviewed with the patient Advance Directives Advance Directives Information Provided: No Advance Directives: No Mental Health Advance Directive: No Advance Directives on File: No Living Will: No Power of Compensation And Benefits Advisor: No Advance Directives Reason:: Declines as Mental Health Visit. Suicide Risk Level Suicide Risk Level Comments: Acute risk is low given improvement in mood and auditory hallucinations, denial of SI, lack of access to lethal means, improvement in sleep, hopefulness and brightened affect with engagement with peers. Chronic risk is moderate given psychiatric co-morbid diagnoses, periods of impulsivity, prior attempt, emotional reactivity, chronic illness, prior psychiatric hospitalizations, mood disorder, childhood trauma but also with protective factors including supportive , in-laws, working, and additional outpatient supports/services she plans to engage with. Counseled on ways to reduce acute and chronic risk including engaging with outpatient providers, using safety plan if needed, utilizing supports, taking medication, using coping skills and seeking additional support if auditory hallucinations intensify. Modifiable risk factors of SI, psychosis and depression were addressed during hospitalization through development of new coping skills, family meeting, safety planning, and medication adjustments. Risk Factors Assessment : Yes Do You Have Access To A Gun?: No Health Problems: Yes Mental Health Diagnoses: Yes Substance Use Disorders: No Previous Attempt: Yes Family History of Suicide: No Previous Psychiatric Hospitalization: Yes Hopelessness: No Protective Factors Assessment : Yes Employed: Yes ([employer]) Stable Relationships: Yes Supportive Family: Yes Discharge Data Lab Results 04/15/22 04/15/22 04/15/22 23:47 23:47 23:47 WBC RBC Hgb Hct MCV MCH MCHC RDW Std Deviation RDW Coeff of Toni Plt Count MPV Immature Gran % (Auto) Neut % (Auto) Lymph % (Auto) [place] % (Auto) Eos % (Auto) Baso % (Auto) Neut # (Auto) Lymph # (Auto) [place] # (Auto) Eos # (Auto) Baso # (Auto) Immature Gran # (Auto) Absolute Nucleated RBC Nucleated RBC % (auto) Pappenheimer Bodies Bell-[place]fferle Bodies PT INR Sodium Potassium Chloride Carbon Dioxide Anion Gap BUN Creatinine Est Cr Clr Drug Dosing Est GFR ( Amer) Est GFR (Non-Af Amer) BUN/Creatinine Ratio Glucose Calcium Total Bilirubin AST ALT Alkaline Phosphatase Total Protein Albumin Globulin Albumin/Globulin Ratio TSH Urine Color Yellow Urine Appearance Clear Urine pH 7.5 Ur Specific [place] 1.011 Urine Protein Negative Urine Glucose (UA) Negative Urine Ketones Negative Urine Blood Negative Urine Nitrite Negative Urine Bilirubin Negative Urine Urobilinogen Negative Ur Leukocyte Esterase Negative Salicylates Urine Opiates Screen Neg Ur Methadone, Qual Neg Acetaminophen Urine Barbiturates Neg Ur Phencyclidine (PCP) Neg U Amphetamin/Meth Scrn Neg MDMA (Ecstasy) Screen Neg U Benzodiazepines Scrn Neg Ur Cocaine Metabolite Neg U Marijuana (THC) Screen Neg Ethyl Alcohol mg/dL SARS-CoV-2, RNA, NAAT NEGATIVE 04/15/22 04/15/22 04/15/22 23:55 23:55 23:55 WBC 13.34 H RBC 4.75 Hgb 14.1 Hct 41.2 MCV 86.7 MCH 29.7 MCHC 34.2 RDW Std Deviation 44.4 RDW Coeff of Toni 14.0 Plt Count 702 H MPV 8.9 L Immature Gran % (Auto) 0.1 Neut % (Auto) 40.4 Lymph % (Auto) 43.4 [place] % (Auto) 12.8 Eos % (Auto) 2.6 Baso % (Auto) 0.7 Neut # (Auto) 5.37 Lymph # (Auto) 5.79 H [place] # (Auto) 1.71 H Eos # (Auto) 0.35 Baso # (Auto) 0.10 Immature Gran # (Auto) 0.02 Absolute Nucleated RBC 0.02 H Nucleated RBC % (auto) 0.1 Pappenheimer Bodies 1+ Bell-Offerle Bodies 1+ PT INR Sodium 138 Potassium 3.9 Chloride 105 Carbon Dioxide 23 Anion Gap 10 BUN 6 Creatinine 0.78 Est Cr Clr Drug Dosing 108.0 Est GFR ( Amer) 124.2 Est GFR (Non-Af Amer) 107.2 BUN/Creatinine Ratio 7.7 L Glucose 108 H Calcium 9.3 Total Bilirubin 0.3 AST 77 H ALT 110 H Alkaline Phosphatase 143 H Total Protein 7.1 Albumin 4.4 Globulin 2.7 Albumin/Globulin Ratio 1.6 TSH 5.949 H Urine Color Urine Appearance Urine pH Ur Specific [place] Urine Protein Urine Glucose (UA) Urine Ketones Urine Blood Urine Nitrite Urine Bilirubin Urine Urobilinogen Ur Leukocyte Esterase Salicylates Urine Opiates Screen Ur Methadone, Qual Acetaminophen Urine Barbiturates Ur Phencyclidine (PCP) U Amphetamin/Meth Scrn MDMA (Ecstasy) Screen U Benzodiazepines Scrn Ur Cocaine Metabolite U Marijuana (THC) Screen Ethyl Alcohol mg/dL SARS-CoV-2, RNA, NAAT 04/15/22 04/15/22 04/16/22 23:55 23:55 14:00 WBC RBC Hgb Hct MCV MCH MCHC RDW Std Deviation RDW Coeff of Toni Plt Count MPV Immature Gran % (Auto) Neut % (Auto) Lymph % (Auto) [place] % (Auto) Eos % (Auto) Baso % (Auto) Neut # (Auto) Lymph # (Auto) [place] # (Auto) Eos # (Auto) Baso # (Auto) Immature Gran # (Auto) Absolute Nucleated RBC Nucleated RBC % (auto) Pappenheimer Bodies Bell-[place]fferle Bodies PT 20.3 H INR 2.0 H Sodium Potassium Chloride Carbon Dioxide Anion Gap BUN Creatinine Est Cr Clr Drug Dosing Est GFR ( Amer) Est GFR (Non-Af Amer) BUN/Creatinine Ratio Glucose Calcium Total Bilirubin AST ALT Alkaline Phosphatase Total Protein Albumin Globulin Albumin/Globulin Ratio TSH Urine Color Urine Appearance Urine pH Ur Specific [place] Urine Protein Urine Glucose (UA) Urine Ketones Urine Blood Urine Nitrite Urine Bilirubin Urine Urobilinogen Ur Leukocyte Esterase Salicylates < 3.0 L Urine Opiates Screen Ur Methadone, Qual Acetaminophen < 3 L Urine Barbiturates Ur Phencyclidine (PCP) U Amphetamin/Meth Scrn MDMA (Ecstasy) Screen U Benzodiazepines Scrn Ur Cocaine Metabolite U Marijuana (THC) Screen Ethyl Alcohol mg/dL < 10.0 SARS-CoV-2, RNA, NAAT 04/17/22 04/18/22 04/19/22 07:10 08:00 08:18 WBC RBC Hgb Hct MCV MCH MCHC RDW Std Deviation RDW Coeff of Toni Plt Count MPV Immature Gran % (Auto) Neut % (Auto) Lymph % (Auto) [place] % (Auto) Eos % (Auto) Baso % (Auto) Neut # (Auto) Lymph # (Auto) [place] # (Auto) Eos # (Auto) Baso # (Auto) Immature Gran # (Auto) Absolute Nucleated RBC Nucleated RBC % (auto) Pappenheimer Bodies Bell-[place]fferle Bodies PT 18.4 H 17.9 H 17.2 H INR 1.8 H 1.7 H 1.7 H Sodium Potassium Chloride Carbon Dioxide Anion Gap BUN Creatinine Est Cr Clr Drug Dosing Est GFR ( Amer) Est GFR (Non-Af Amer) BUN/Creatinine Ratio Glucose Calcium Total Bilirubin AST ALT Alkaline Phosphatase Total Protein Albumin Globulin Albumin/Globulin Ratio TSH Urine Color Urine Appearance Urine pH Ur Specific [place] Urine Protein Urine Glucose (UA) Urine Ketones Urine Blood Urine Nitrite Urine Bilirubin Urine Urobilinogen Ur Leukocyte Esterase Salicylates Urine Opiates Screen Ur Methadone, Qual Acetaminophen Urine Barbiturates Ur Phencyclidine (PCP) U Amphetamin/Meth Scrn MDMA (Ecstasy) Screen U Benzodiazepines Scrn Ur Cocaine Metabolite U Marijuana (THC) Screen Ethyl Alcohol mg/dL SARS-CoV-2, RNA, NAAT 04/20/22 07:57 WBC RBC Hgb Hct MCV MCH MCHC RDW Std Deviation RDW Coeff of Toni Plt Count MPV Immature Gran % (Auto) Neut % (Auto) Lymph % (Auto) [place] % (Auto) Eos % (Auto) Baso % (Auto) Neut # (Auto) Lymph # (Auto) [place] # (Auto) Eos # (Auto) Baso # (Auto) Immature Gran # (Auto) Absolute Nucleated RBC Nucleated RBC % (auto) Pappenheimer Bodies Bell-[place]fferle Bodies PT 17.7 H INR 1.7 H Sodium Potassium Chloride Carbon Dioxide Anion Gap BUN Creatinine Est Cr Clr Drug Dosing Est GFR ( Amer) Est GFR (Non-Af Amer) BUN/Creatinine Ratio Glucose Calcium Total Bilirubin AST ALT Alkaline Phosphatase Total Protein Albumin Globulin Albumin/Globulin Ratio TSH Urine Color Urine Appearance Urine pH Ur Specific [place] Urine Protein Urine Glucose (UA) Urine Ketones Urine Blood Urine Nitrite Urine Bilirubin Urine Urobilinogen Ur Leukocyte Esterase Salicylates Urine Opiates Screen Ur Methadone, Qual Acetaminophen Urine Barbiturates Ur Phencyclidine (PCP) U Amphetamin/Meth Scrn MDMA (Ecstasy) Screen U Benzodiazepines Scrn Ur Cocaine Metabolite U Marijuana (THC) Screen Ethyl Alcohol mg/dL SARS-CoV-2, RNA, NAAT Hospital Course (1) Depression with suicidal ideation: (2) Suicidal ideation: (3) Eating disorder, unspecified: (4) Acquired asplenia: (5) 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 Needs family meeting/call with . 04/18/22: Change timing of risperidone to qAM and 1400 to help with afternoon symptoms. Will increase trazodone to 100mg qhs to help with insomnia. Buspar and Vistaril are working well for anxiety. 04/17/22: Stop Latuda. Schedule risperidone 0.5mg BID. Continue with Luvox, Buspar and Trazodone. 04/16/22: The patient was admitted to the [facility] ([facility] mental health unit) on q15 min checks (behavioral with suicide precautions) for safety. The patient will participate in group, recreational, and milieu therapies and will be offered additional individual and family sessions as clinically appropriate. -Continue Latuda 40mg (but will switch to with lunch instead of with dinner as symptoms are worse in late afternoon) and Luvox 50mg qd and Buspar 10mg BID. -Continue trazodone 50mg qhs prn for insomnia. -Discontinue gabapentin -Risperidone 0.5mg BID prn for agitation/anxiety/psychosis Mental Health & Subst Abuse Tx Psychiatrist Name of Psychiatrist: Evgeny Trimble Psychiatrist's Date of Appointment with Psychiatrist: 04/27/22 Time of Appointment with Psychiatrist: 10:15am Psychiatric Appointment Comment: [address] [place], [place] Therapist Name of Therapist: [facility] Therapist's Date of Therapist Appointment: 04/24/22 Time of Therapist Appointment: 11 am Therapy Appointment Comment: [address], [address], [place], [place] Blueprint Developer Name of Blueprint Developer: Andreea Lyman Phone Number for Blueprint Developer: [phone] Case Management Appointment Comment: will meet in the home/community Post Discharge Appointments Primary Care Physician Name Of Family Doctor: Bruna Chaparro Primary Care Contact Information Discharge Discharge Address: [address] [place] [address] Discharge Plan Discharge Items Patient Disposition: Home - Self-Care Reason For Visit: MDD Discharge Diagnosis: Major Depressive Disorder, recurrent, with psychotic features Condition on Discharge: Good Activity: Resume your previous activity Non-emergency contact: Primary Care Provider, Psychiatrist, Therapist and Senior Technical Program Manager Call non-emergency contact if: you have any medication questions and your symptoms worsen Follow-up/Referrals: Swapna Ponce PA-C [Primary Care Provider] - Diet: Regular Addtl Attending Provider Instructions: Optional mobile apps we discussed: -Suicide safety plan -Virtual Hope Box SPECIAL CARE INSTRUCTIONS: 1. Follow through with your scheduled aftercare appointments. If unable to keep an appointment, please call to reschedule. 2. Take your medication only as prescribed. Medication should not be changed or stopped without the approval of your doctor. In the event of worsening symptoms or concerns about side effects, contact your doctor immediately. 3. Utilize new healthy coping skills, anger management skills, and stress management skills learned during your hospitalization. Journal feelings and process them with a support person. Identify stressors or situations that may result in relapse, deterioration or inappropriate behaviors and develop a plan to deal with those issues. 4. If your coping skills are ineffective and you are in crisis, contact your outpatient providers for direction. If unable to reach your providers, please call the [facility] CRISIS LINE AT , go to the [facility] walk-in center at [address], [address], [place], or go to the closest Emergency Room. 5. Avoid alcohol and un-prescribed drugs. 6. You have been provided with the Mental Health Advance Directives Pamphlet for your review. 7. Your condition is stable for discharge to outpatient level of care, but recovery is an ongoing process. Ifthoughts to harm yourself or others return, follow the safety plan developed during your stay. Planning for a safe return home includes securing weapons. Our treatment team recommends weaponsbe removed from the home until your outpatient provider reassesses your progress. In rare cases where the items themselvescannot be removed, guns and ammunitionshould be secured separatelyand keys stored by a reliable personoutside of the home. If you were admitted on an involuntary commitment, the police or other legal authorities may be involved in this process. AFTERCARE APPOINTMENTS: * Please call your insurance company prior to your scheduled appointment to confirm your aftercare providers are covered. Take your insurance information to your appointments. WHO TO CALL AND WHEN: Medical Emergencies: For questions or emergencies related to your hospital stay, please contact the Inpatient Behavioral Health Unit at [phone]. A roll filler is on-call 18/03 for the Behavioral Health Unit for e mergencies At any time you feel your situation is an emergency, you may also call 911 immediately. Pending Studies at Discharge: No Stand-Alone Forms: [facility] Medications and DC Order Prescriptions: New trazodone 100 mg Tablet 100 mg PO HS PRN (Reason: insomnia) 30 Days Qty: 30 0RF buspirone 5 mg Tablet 10 mg PO BID 1 Days Qty: 4 0RF hydroxyzine HCl 25 mg Tablet 25 mg PO DAILY PRN (Reason: anxiety) 30 Days Qty: 30 0RF hydroxyzine HCl 50 mg tablet 50 mg PO HSZ PRN (Reason: insomnia/anxiety) 30 Days Qty: 30 0RF Rx Instructions: Take only if trazodone is ineffective risperidone 0.5 mg Tablet 0.5 mg PO [id number] 30 Days Qty: 30 0RF Continued acetaminophen [Tylenol Extra Strength] 500 mg Tablet 1,000 mg PO Q6H PRN (Reason: Pain) propranolol 40 mg tablet 40 mg PO BID famotidine 20 mg tablet 20 mg PO BID PRN (Reason: Acid Reflux) dicyclomine 10 mg capsule 10 mg PO QID PRN (Reason: ABD PAIN) fluvoxamine 50 mg Tablet 50 mg PO DAILY 30 Days Qty: 30 0RF warfarin 2.5 mg Tablet See Rx Instructions .ROUTE .COMPLEX Rx Instructions: 2.5 mg orally on Saturday,Saturday and Saturday warfarin 5 mg Tablet See Rx Instructions .ROUTE .COMPLEX Rx Instructions: 5 mg orally Sat, Sun, Tues and Thurs Discontinued Latuda 40 mg tablet See Rx Instructions .ROUTE .COMPLEX Qty: 30 0RF Rx Instructions: 40 mg orally with evening meal; must administer with food (at least 350 calories) trazodone 50 mg Tablet 50 mg PO HS PRN (Reason: insomnia) Qty: 1 0RF Rx Instructions: home supply gabapentin 100 mg Tablet 200 mg PO DAILY Rx Instructions: take 200 mg daily for 10 days starting 04/14/22, then discontinue medication Discharge Orders: Discharge Order (Routine); Ordered 04/20/22 Ordered By: Alma Rosa Mendez Admission Data Admit Date/Time: 04/16/22 04:42 Attending Provider: Alma Rosa Mendez Admit Provider: Alma Rosa Mendez Primary Care Provider: Swapna Ponce Other Interventions: Discharge Summary Assessment (RN) Last Done: 04/20/22 10:17 PSY Interdisciplinary Discharge Planning Last Done: 04/20/22 10:17 Coding Level of Care Code 56988 D/C day mgmt > 30 min Diagnoses Depression with suicidal ideation F32.A; R45.851 Suicidal ideation R45.851 Eating disorder, unspecified F50.9 Acquired asplenia Z90.81 Superior mesenteric vein thrombosis K55.069 Brock brock disease I67.5 PTSD (post-traumatic stress disorder) F43.10 MDD (major depressive disorder), recurrent, severe, with psychosis F33.3 Time Spent (min) 35
== END 2022-04-20 10:51 | disposition home or self-care (01) | DRG 885 ==
LOC: ED 23:27 → 3S 04-16 04:42
DX: Z90.81 Acquired absence of spleen; F32.3 Major depressive disorder, single episode, severe with psychotic features; F43.10 Post-traumatic stress disorder, unspecified; F50.82 Avoidant/restrictive food intake disorder; Z79.01 Long term (current) use of anticoagulants; Z79.899 Other long term (current) drug therapy; G47.00 Insomnia, unspecified; Z88.1 Allergy status to other antibiotic agents; Z86.718 Personal history of other venous thrombosis and embolism; I67.5 Moyamoya disease; Z87.891 Personal history of nicotine dependence

== ENCOUNTER 2022-04-24 16:07 | Inpatient (IN) ==
[2022-04-24 17:03] LABS: INR 1.5 (0.9-1.1); Prothrombin Time 15.6 Seconds (9.0-12.0)
[2022-04-24 17:05] LABS: Pregnancy Test, Serum Negative (Negative)
[2022-04-24 17:07] LABS: Basophils # (auto) 0.06 K/uL (0-0.2); Basophils % (auto) 0.6 %; Eosinophils # (auto) 0.21 K/uL (0-0.50); Eosinophils % (auto) 2.2 %; Hematocrit (blood only) 39.8 % (34.1-44.9); Immature Granulocytes # (auto) 0.02 K/uL (0.00-0.02); Immature Granulocytes % (auto) 0.2 %; Lymphocytes # (auto) 4.09 K/uL (1.2-3.4); Lymphocytes % (auto) 42.1 %; Mean Corpuscular Hgb Conc 35.2 g/dL (32.0-36.0); Mean Corpuscular Volume 85.2 fL (80.0-100.0); Mean Platelet Volume 8.4 fL (9.4-12.3); Monocytes # (auto) 1.21 K/uL (0.24-0.82); Monocytes % (auto) 12.4 %; Neutrophils # (auto) 4.13 K/uL (1.4-6.5); Neutrophils % (auto) 42.5 %; Platelet Count 695 K/uL (130-400); RDW Coefficient of Variation 13.5 % (11.5-14.5); RDW Standard Deviation 41.8 fL (36.4-46.3); Red Blood Count 4.67 M/uL (3.93-5.22); White Blood Count 9.72 K/ul (4.8-10.8)
[2022-04-24 17:32] LABS: Acetaminophen < 3 ug/ml (10-30); Albumin Globulin Ratio 1.6 (0.9-2); Albumin Level 4.3 gm/dl (3.4-5.0); BUN Creatinine Ratio 18.3 (10-20); Bilirubin,Total 0.3 mg/dl (0.2-1.0); Calcium 9.3 mg/dl (8.5-10.1); Creatinine Clr Calc Pharmacy 119.4 ml/min; Est GFR (African American) 139.1 ml/min; Est GFR (Non-African American) 120.1 ml/min; Globulin 2.7 gm/dl (2.5-4.0); Potassium 3.8 mmol/L (3.5-5.1); Salicylate < 3.0 mg/dl (3.0-30)
--- NOTE | 2022-04-24 18:04 | Emergency Department Note ---
History of Present Illness General Chief complaint: Mental Health Evaluation Stated complaint: SUICIDAL THOUGHTS Time Seen by Provider: 04/24/22 16:12 History of Present Illness 21-year-old female presents to the ED with a chief complaint of suicidal ideation. The patient was reportedly just discharged from [facility] psychiatric unit here at [facility] a few days ago. The patient is still feeling suicidal. She reports that she is taking her medications. She has been feeling suicidal for the past 2 days. Her plan is to overdose or run away from her family and get lost. She has had other previous mental health admissions. No additional complaints at this time. Home Medications Medication Instructions Recorded Confirmed Type acetaminophen 500 mg tablet 1,000 mg PO Q6H PRN Pain 03/09/21 04/16/22 History (Tylenol Extra Strength) famotidine 20 mg tablet 20 mg PO BID PRN Acid Reflux 03/09/21 04/16/22 History propranolol 40 mg tablet 40 mg PO BID 03/09/21 04/16/22 History dicyclomine 10 mg capsule 10 mg PO QID PRN ABD PAIN 06/22/21 04/16/22 History fluvoxamine 50 mg tablet 50 mg PO DAILY 30 days #30 tabs 04/09/22 04/16/22 Rx warfarin 2.5 mg tablet See Rx Instructions .Route .COMPLEX 04/16/22 04/16/22 History warfarin 5 mg tablet See Rx Instructions .Route .COMPLEX 04/16/22 04/16/22 History hydroxyzine HCl 25 mg tablet 25 mg PO DAILY PRN anxiety 30 days 04/20/22 Rx #30 tabs hydroxyzine HCl 50 mg tablet 50 mg PO HSZ PRN insomnia/anxiety 04/20/22 Rx 30 days #30 tabs risperidone 0.5 mg tablet 0.5 mg PO [id number] MDD with 04/20/22 Rx psychotic features 30 days #30 tabs trazodone 100 mg tablet 100 mg PO HS PRN insomnia 30 days 04/20/22 Rx #30 tabs Allergies Allergy/AdvReac Type Severity Reaction Status Date / Time vancomycin Allergy Intermediate Red/Itchy Verified 03/31/22 19:40 skin Past Med/Surg History Medical History Asplenia Eating disorder, unspecified Intermittent asthma Major depressive disorder with psychotic 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 PTSD (post-traumatic stress disorder) Superior mesenteric vein thrombosis Thrombocytosis Surgical History History of splenectomy Family History Denies family history of Coronary heart disease Social History Smoking Status: Never smoker Hx Alcohol Use: No Hx Substance Use: No Preferred Language: Monegasque Communication Ability: Effective 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 Beliefs That Will Affect Care: None marital status: Current Living Situation: Significant Other How many Children do You have: 0 Feels Safe at Home: Yes Assistive Devices: None Review of Systems A total of 10 systems reviewed and were otherwise negative Physical Exam Vital Signs Vital Signs - 24 hr 04/24/22 16:09 Temperature 36.8 C Temperature Source Temporal Artery Scan Pulse Rate 76 Respiratory Rate 16 Respiratory Effort / Characteristics Non-Labored Spontaneous Respiratory Depth Normal Respiratory Pattern Regular Blood Pressure 101/67 Blood Pressure Mean 78 Pulse Oximetry 96 Oxygen Delivery Method Room Air Sepsis Recent Fever Within 48 Hours No Sepsis New/Unexplained Change in Mental Status N/A Sepsis Action Taken by Nursing No Action Required CONSTITUTIONAL/VITAL SIGNS: Reviewed / noted above. GENERAL: Non-toxic in appearance. INTEGUMENTARY: Warm, dry, and [place]. HEAD: Normocephalic. EYES: without scleral icterus or trauma. ENT/OROPHARYNX: clear and moist. LYMPHADENOPATHY/NECK: Is supple without lymphadenopathy or meningismus. RESPIRATORY: Clear to auscultation bilaterally. No increased work of breathing. CARDIOVASCULAR: Regular rate and rhythm. GI/ABDOMEN: Soft and nontender. No organomegaly or pulsatile mass. EXTREMITIES: Warm and well perfused. BACK: No CVA tenderness. NEUROLOGICAL: Intact without focal deficits. PSYCHIATRIC: Flat affect. MUSCULOSKELETAL: Normally developed with good muscle tone. TRIAGE NURSING DOCUMENTATION REVIEWED. Medical Decision Making Differential Diagnosis Differential includes toxic ingestions, self-mutilation, suicidal ideation, suicide attempt, depression. Medical Records Attestation: I reviewed the patient's medical records. Home Medications Current Medication List: was personally reviewed by me Laboratory Data Attestation: I reviewed the patient's lab results. Result diagrams: 04/24/22 16:33 04/24/22 16:33 Lab Results 04/24/22 04/24/22 04/24/22 Range/Units 16:13 16:33 16:33 WBC 9.72 (4.8-10.8) K/ul RBC 4.67 (3.93-5.22) M/uL Hgb 14.0 (12.0-16.0) g/dl Hct 39.8 (34.1-44.9) % MCV 85.2 (80.0-100.0) fL MCH 30.0 (25.0-34.0) pg MCHC 35.2 (32.0-36.0) g/dL RDW Std Deviation 41.8 (36.4-46.3) fL RDW Coeff of Toni 13.5 (11.5-14.5) % Plt Count 695 H (130-400) K/uL MPV 8.4 L (9.4-12.3) fL Immature Gran % (Auto) 0.2 % Neut % (Auto) 42.5 % Lymph % (Auto) 42.1 % [place] % (Auto) 12.4 % Eos % (Auto) 2.2 % Baso % (Auto) 0.6 % Neut # (Auto) 4.13 (1.4-6.5) K/uL Lymph # (Auto) 4.09 H (1.2-3.4) K/uL [place] # (Auto) 1.21 H (0.24-0.82) K/uL Eos # (Auto) 0.21 (0-0.50) K/uL Baso # (Auto) 0.06 (0-0.2) K/uL Immature Gran # (Auto) 0.02 (0.00-0.02) K/uL PT 15.6 H (9.0-12.0) Seconds INR 1.5 H (0.9-1.1) Sodium (136-145) mmol/L Potassium (3.5-5.1) mmol/L Chloride (98-107) mmol/L Carbon Dioxide (21-32) mmol/L Anion Gap (3-11) BUN (6-23) mg/dl Creatinine (0.6-1.2) mg/dl Est Cr Clr Drug Dosing ml/min Est GFR ( Amer) ml/min Est GFR (Non-Af Amer) ml/min BUN/Creatinine Ratio (10-20) Glucose (70-99(Fasting)) mg/dl Calcium (8.5-10.1) mg/dl Total Bilirubin (0.2-1.0) mg/dl AST (13-39) U/L ALT (7-52) U/L Alkaline Phosphatase (34-104) U/L Total Protein (6.0-8.3) gm/dl Albumin (3.4-5.0) gm/dl Globulin (2.5-4.0) gm/dl Albumin/Globulin Ratio (0.9-2) TSH (0.300-4.500) uIu/ml HCG, Qual Negative (Negative) Urine Color Urine Appearance (Clear) Urine pH (4.5-7.5) Ur Specific [place] (1.000-1.030) Urine Protein (Negative) Urine Glucose (UA) (Negative) Urine Ketones (Negative) Urine Blood (Negative) Urine Nitrite (Negative) Urine Bilirubin (Negative) Urine Urobilinogen (Negative) Ur Leukocyte Esterase (Negative) Urine WBC (Auto) (0-5) /hpf Urine RBC (Auto) (0-4) /hpf U Hyaline Cast (Auto) (0-5) /lpf U Epithel Cells (Auto) (0-5) /lpf Urine Bacteria (Auto) (Negative) Salicylates (3.0-30) mg/dl Urine Opiates Screen (Neg) Ur Methadone, Qual (Neg) Acetaminophen (10-30) ug/ml Urine Barbiturates (Neg) Ur Phencyclidine (PCP) (Neg) U Amphetamin/Meth Scrn (Neg) MDMA (Ecstasy) Screen (Neg) U Benzodiazepines Scrn (Neg) Ur Cocaine Metabolite (Neg) U Marijuana (THC) Screen (Neg) Ethyl Alcohol mg/dL (<10.0) mg/dl SARS-CoV-2, RNA, NAAT (NEGATIVE) 04/24/22 04/24/22 04/24/22 Range/Units 16:33 16:33 16:33 WBC (4.8-10.8) K/ul RBC (3.93-5.22) M/uL Hgb (12.0-16.0) g/dl Hct (34.1-44.9) % MCV (80.0-100.0) fL MCH (25.0-34.0) pg MCHC (32.0-36.0) g/dL RDW Std Deviation (36.4-46.3) fL RDW Coeff of Toni (11.5-14.5) % Plt Count (130-400) K/uL MPV (9.4-12.3) fL Immature Gran % (Auto) % Neut % (Auto) % Lymph % (Auto) % [place] % (Auto) % Eos % (Auto) % Baso % (Auto) % Neut # (Auto) (1.4-6.5) K/uL Lymph # (Auto) (1.2-3.4) K/uL [place] # (Auto) (0.24-0.82) K/uL Eos # (Auto) (0-0.50) K/uL Baso # (Auto) (0-0.2) K/uL Immature Gran # (Auto) (0.00-0.02) K/uL PT (9.0-12.0) Seconds INR (0.9-1.1) Sodium 138 (136-145) mmol/L Potassium 3.8 (3.5-5.1) mmol/L Chloride 104 (98-107) mmol/L Carbon Dioxide 26 (21-32) mmol/L Anion Gap 8 (3-11) BUN 13 (6-23) mg/dl Creatinine 0.71 (0.6-1.2) mg/dl Est Cr Clr Drug Dosing 119.4 ml/min Est GFR ( Amer) 139.1 ml/min Est GFR (Non-Af Amer) 120.1 ml/min BUN/Creatinine Ratio 18.3 (10-20) Glucose 86 (70-99(Fasting)) mg/dl Calcium 9.3 (8.5-10.1) mg/dl Total Bilirubin 0.3 (0.2-1.0) mg/dl AST 30 (13-39) U/L ALT 80 H (7-52) U/L Alkaline Phosphatase 137 H (34-104) U/L Total Protein 7.0 (6.0-8.3) gm/dl Albumin 4.3 (3.4-5.0) gm/dl Globulin 2.7 (2.5-4.0) gm/dl Albumin/Globulin Ratio 1.6 (0.9-2) TSH 2.625 (0.300-4.500) uIu/ml HCG, Qual (Negative) Urine Color Urine Appearance (Clear) Urine pH (4.5-7.5) Ur Specific [place] (1.000-1.030) Urine Protein (Negative) Urine Glucose (UA) (Negative) Urine Ketones (Negative) Urine Blood (Negative) Urine Nitrite (Negative) Urine Bilirubin (Negative) Urine Urobilinogen (Negative) Ur Leukocyte Esterase (Negative) Urine WBC (Auto) (0-5) /hpf Urine RBC (Auto) (0-4) /hpf U Hyaline Cast (Auto) (0-5) /lpf U Epithel Cells (Auto) (0-5) /lpf Urine Bacteria (Auto) (Negative) Salicylates < 3.0 L (3.0-30) mg/dl Urine Opiates Screen (Neg) Ur Methadone, Qual (Neg) Acetaminophen < 3 L (10-30) ug/ml Urine Barbiturates (Neg) Ur Phencyclidine (PCP) (Neg) U Amphetamin/Meth Scrn (Neg) MDMA (Ecstasy) Screen (Neg) U Benzodiazepines Scrn (Neg) Ur Cocaine Metabolite (Neg) U Marijuana (THC) Screen (Neg) Ethyl Alcohol mg/dL (<10.0) mg/dl SARS-CoV-2, RNA, NAAT (NEGATIVE) 04/24/22 04/24/22 04/24/22 Range/Units 16:33 16:38 18:40 WBC (4.8-10.8) K/ul RBC (3.93-5.22) M/uL Hgb (12.0-16.0) g/dl Hct (34.1-44.9) % MCV (80.0-100.0) fL MCH (25.0-34.0) pg MCHC (32.0-36.0) g/dL RDW Std Deviation (36.4-46.3) fL RDW Coeff of Toni (11.5-14.5) % Plt Count (130-400) K/uL MPV (9.4-12.3) fL Immature Gran % (Auto) % Neut % (Auto) % Lymph % (Auto) % [place] % (Auto) % Eos % (Auto) % Baso % (Auto) % Neut # (Auto) (1.4-6.5) K/uL Lymph # (Auto) (1.2-3.4) K/uL [place] # (Auto) (0.24-0.82) K/uL Eos # (Auto) (0-0.50) K/uL Baso # (Auto) (0-0.2) K/uL Immature Gran # (Auto) (0.00-0.02) K/uL PT (9.0-12.0) Seconds INR (0.9-1.1) Sodium (136-145) mmol/L Potassium (3.5-5.1) mmol/L Chloride (98-107) mmol/L Carbon Dioxide (21-32) mmol/L Anion Gap (3-11) BUN (6-23) mg/dl Creatinine (0.6-1.2) mg/dl Est Cr Clr Drug Dosing ml/min Est GFR ( Amer) ml/min Est GFR (Non-Af Amer) ml/min BUN/Creatinine Ratio (10-20) Glucose (70-99(Fasting)) mg/dl Calcium (8.5-10.1) mg/dl Total Bilirubin (0.2-1.0) mg/dl AST (13-39) U/L ALT (7-52) U/L Alkaline Phosphatase (34-104) U/L Total Protein (6.0-8.3) gm/dl Albumin (3.4-5.0) gm/dl Globulin (2.5-4.0) gm/dl Albumin/Globulin Ratio (0.9-2) TSH (0.300-4.500) uIu/ml HCG, Qual (Negative) Urine Color Yellow Urine Appearance Cloudy A (Clear) Urine pH 7.5 (4.5-7.5) Ur Specific [place] 1.015 (1.000-1.030) Urine Protein Negative (Negative) Urine Glucose (UA) Negative (Negative) Urine Ketones Negative (Negative) Urine Blood Negative (Negative) Urine Nitrite Negative (Negative) Urine Bilirubin Negative (Negative) Urine Urobilinogen Negative (Negative) Ur Leukocyte Esterase Negative (Negative) Urine WBC (Auto) 1-5 (0-5) /hpf Urine RBC (Auto) 0-4 (0-4) /hpf U Hyaline Cast (Auto) 0 (0-5) /lpf U Epithel Cells (Auto) 10-20 H (0-5) /lpf Urine Bacteria (Auto) Negative (Negative) Salicylates (3.0-30) mg/dl Urine Opiates Screen (Neg) Ur Methadone, Qual (Neg) Acetaminophen (10-30) ug/ml Urine Barbiturates (Neg) Ur Phencyclidine (PCP) (Neg) U Amphetamin/Meth Scrn (Neg) MDMA (Ecstasy) Screen (Neg) U Benzodiazepines Scrn (Neg) Ur Cocaine Metabolite (Neg) U Marijuana (THC) Screen (Neg) Ethyl Alcohol mg/dL < 10.0 (<10.0) mg/dl SARS-CoV-2, RNA, NAAT NEGATIVE (NEGATIVE) 04/24/22 Range/Units 18:40 WBC (4.8-10.8) K/ul RBC (3.93-5.22) M/uL Hgb (12.0-16.0) g/dl Hct (34.1-44.9) % MCV (80.0-100.0) fL MCH (25.0-34.0) pg MCHC (32.0-36.0) g/dL RDW Std Deviation (36.4-46.3) fL RDW Coeff of Toni (11.5-14.5) % Plt Count (130-400) K/uL MPV (9.4-12.3) fL Immature Gran % (Auto) % Neut % (Auto) % Lymph % (Auto) % [place] % (Auto) % Eos % (Auto) % Baso % (Auto) % Neut # (Auto) (1.4-6.5) K/uL Lymph # (Auto) (1.2-3.4) K/uL [place] # (Auto) (0.24-0.82) K/uL Eos # (Auto) (0-0.50) K/uL Baso # (Auto) (0-0.2) K/uL Immature Gran # (Auto) (0.00-0.02) K/uL PT (9.0-12.0) Seconds INR (0.9-1.1) Sodium (136-145) mmol/L Potassium (3.5-5.1) mmol/L Chloride (98-107) mmol/L Carbon Dioxide (21-32) mmol/L Anion Gap (3-11) BUN (6-23) mg/dl Creatinine (0.6-1.2) mg/dl Est Cr Clr Drug Dosing ml/min Est GFR ( Amer) ml/min Est GFR (Non-Af Amer) ml/min BUN/Creatinine Ratio (10-20) Glucose (70-99(Fasting)) mg/dl Calcium (8.5-10.1) mg/dl Total Bilirubin (0.2-1.0) mg/dl AST (13-39) U/L ALT (7-52) U/L Alkaline Phosphatase (34-104) U/L Total Protein (6.0-8.3) gm/dl Albumin (3.4-5.0) gm/dl Globulin (2.5-4.0) gm/dl Albumin/Globulin Ratio (0.9-2) TSH (0.300-4.500) uIu/ml HCG, Qual (Negative) Urine Color Urine Appearance (Clear) Urine pH (4.5-7.5) Ur Specific [place] (1.000-1.030) Urine Protein (Negative) Urine Glucose (UA) (Negative) Urine Ketones (Negative) Urine Blood (Negative) Urine Nitrite (Negative) Urine Bilirubin (Negative) Urine Urobilinogen (Negative) Ur Leukocyte Esterase (Negative) Urine WBC (Auto) (0-5) /hpf Urine RBC (Auto) (0-4) /hpf U Hyaline Cast (Auto) (0-5) /lpf U Epithel Cells (Auto) (0-5) /lpf Urine Bacteria (Auto) (Negative) Salicylates (3.0-30) mg/dl Urine Opiates Screen Neg (Neg) Ur Methadone, Qual Neg (Neg) Acetaminophen (10-30) ug/ml Urine Barbiturates Neg (Neg) Ur Phencyclidine (PCP) Neg (Neg) U Amphetamin/Meth Scrn Neg (Neg) MDMA (Ecstasy) Screen Neg (Neg) U Benzodiazepines Scrn Neg (Neg) Ur Cocaine Metabolite Neg (Neg) U Marijuana (THC) Screen Neg (Neg) Ethyl Alcohol mg/dL (<10.0) mg/dl SARS-CoV-2, RNA, NAAT (NEGATIVE) MDM Narrative 21-year-old female presents with suicidal ideation and depression. Her blood work was unremarkable. COVID test was negative. Alcohol is negative. She is felt to be medically cleared for mental health evaluation. Signed out to Dr. Leong awaiting placement. Impression & Plan Depression with suicidal ideation Discharge Plan Visit Data Chief Complaint: Mental Health Evaluation Stated Complaint: SUICIDAL THOUGHTS ED Provider: Trevor Aguiar Discharge Problem: Depression with suicidal ideation Patient Disposition: Transfer Behavioral Health Fac Forms Stand Alone Forms: My [facility], Suicide Prevention Resources Prescriptions Prescriptions: No Action acetaminophen [Tylenol Extra Strength] 500 mg Tablet 1,000 mg PO Q6H PRN (Reason: Pain) propranolol 40 mg tablet 40 mg PO BID famotidine 20 mg tablet 20 mg PO BID PRN (Reason: Acid Reflux) dicyclomine 10 mg capsule 10 mg PO QID PRN (Reason: ABD PAIN) fluvoxamine 50 mg Tablet 50 mg PO DAILY 30 Days Qty: 30 0RF warfarin 2.5 mg Tablet See Rx Instructions .ROUTE .COMPLEX Rx Instructions: 2.5 mg orally on Saturday,Saturday and Saturday warfarin 5 mg Tablet See Rx Instructions .ROUTE .COMPLEX Rx Instructions: 5 mg orally Sat, Sun, Tues and Thurs trazodone 100 mg Tablet 100 mg PO HS PRN (Reason: insomnia) 30 Days Qty: 30 0RF hydroxyzine HCl 25 mg Tablet 25 mg PO DAILY PRN (Reason: anxiety) 30 Days Qty: 30 0RF hydroxyzine HCl 50 mg tablet 50 mg PO HSZ PRN (Reason: insomnia/anxiety) 30 Days Qty: 30 0RF Rx Instructions: Take only if trazodone is ineffective risperidone 0.5 mg Tablet 0.5 mg PO [id number] 30 Days Qty: 30 0RF Referrals Referrals: Kinsey Chaparro PA-C [Primary Care Provider] -
[2022-04-24 18:55] LABS: Appearance Urine Cloudy (Clear); Bacteria Urine Automated Negative (Negative); Bilirubin Urine Negative (Negative); Blood Urine Negative (Negative); Cast Urine Automated 0 /lpf (0-5); Color Urine Yellow; Glucose Urine UA Negative (Negative); Ketones Urine Negative (Negative); Leukocyte Esterase Urine Negative (Negative); Nitrite Urine Negative (Negative); Protein Urine Negative (Negative); RBC Urine Automated 0-4 /hpf (0-4); Specific Gravity Urine 1.015 (1.000-1.030); Urobilinogen Urine Negative (Negative); pH Urine 7.5 (4.5-7.5)
[2022-04-24 19:13] LABS: Amphetamines+Metham, Urine Neg (Neg); Barbiturates, Urine Neg (Neg); Benzodiazepine, Urine Neg (Neg); Cocaine, Urine Neg (Neg); MDMA (Ecstacy), Urine Neg (Neg); Methadone, Urine Neg (Neg); Opiate, Urine Neg (Neg); Phencyclidine, Urine Neg (Neg)
[2022-04-24] MEDS ORDERED: BISMUTH SUBSALICYLATE LIQD 236 ML PO PRN (22:01)
[2022-04-24] MEDS ORDERED: MAGNESIUM HYDROXIDE SUSP 30 ML UDC PO PRN (22:01)
[2022-04-24] MEDS ORDERED: hydrOXYzine HCl 25 MG TAB PO PRN ×2 (22:01)
[2022-04-24] MEDS ORDERED: ALUMINUM/MAGNESIUM SUSP 30 ML UDC PO PRN (22:01)
[2022-04-24] MEDS ORDERED: ACETAMINOPHEN 325 MG TAB PO PRN (22:01)
[2022-04-24] MEDS ORDERED: SODIUM CHLORIDE 0.65% NA SOLN 45 ML (OCEAN) PRN (22:01)
--- NOTE | 2022-04-24 22:17 | Emergency Department Note ---
ED Visit Note Patient signed out to me at change of shift. Patient medically cleared at time of signout. Patient with recent inpatient mental health admission to [facility] and discharged several days ago. Patient returned today with suicidal ideation and plan to overdose. Patient requesting to be sent to [facility]. Patient accepted to [facility] again, I signed 201. Patient stable during my shift. .
[2022-04-24] MEDS ORDERED: traZODone HCL 100 MG TAB PO PRN (22:47)
[2022-04-24] MEDS: PROPRANOLOL HCL 20 MG TAB PO SCH (23:14)
[2022-04-25] MEDS ORDERED: ACETAMINOPHEN 500 MG TAB PO PRN (06:57)
[2022-04-25] MEDS ORDERED: FAMOTIDINE 20 MG TAB PO PRN (06:57)
[2022-04-25] MEDS ORDERED: DICYCLOMINE HCL 10 MG CAP PO PRN (06:57)
--- NOTE | 2022-04-25 06:57 | History & Physical ---
Date of Service April 25, 2022 Impression / Recommendations Impression The patient is a 21-year-old woman has a history of MDD with psychotic features, PTSD, Brock brock disease, superior mesenteric venous thrombus, re-admitted after recent discharge for SI with plan and intent and unable to safety plan for outside of the hospital with increased auditory hallucinations in context of recent care transitions. (1) MDD (major depressive disorder), recurrent, severe, with psychosis: (2) Acquired asplenia: (3) Subtherapeutic international normalized ratio (INR): (4) Brock brock disease: Plan The patient was admitted to the [facility] ([facility] mental health unit) on q15 min checks (behavioral with suicide precautions) for safety. The patient will participate in group, recreational, and milieu therapies and will be offered additional individual and family sessions as clinically appropriate. NNPR given community COVID and asplenia. Risks/benefits/alternatives reviewed re: current meds, consented to continue Luvox titration. Consider trial of a different mood stabilizer. Clarify short term disability paperwork status. Coumadin monitoring. Inventory Assets Strengths: help seeking, managing her medical conditions Needs: coping skills, structure outside of work Suicide Risk Level Suicide Risk Level: High-Moderate (q15 min suicide checks) Risk Factors Assessment : Yes Do You Have Access To A Gun?: No Health Problems: Yes Mental Health Diagnoses: Yes Previous Attempt: Yes Previous Psychiatric Hospitalization: Yes Protective Factors Assessment : Yes Employed: Yes ([employer]) Supportive Family: Yes Psychiatric History Identifying Data MAKENZIE HILLIARD is a 21-year-old F who currently lives in [place], has a history of MDD with psychotic features, brock brock, superior mesenteric venous thrombus, and asplenia, and was readmitted on 04/24/22 22:01 on a 201 voluntary commitment for SI. Chief Complaint "yeah my depression still gets bad and I just think I left too soon". History of Present Illness Patient was admitted on 04/16/22 and discharged with 1 week of short term disability. She was also admitted 04/05/22-04/09/22 for SI with plan. She told ED CM that: Pt was discharged last week from [facility]. She reports increasing SI since discharge with a plan to overdose or "run away and hurt herself". Pt was prescribed Luvox, Risperdone, Trazadone, and Vistaril upon discharge from [address] [place] [address] and is taking them as prescribed. She also reports command hallucinations and states voices are telling her to overdose and kill herself. Pt lives with her and his parents. She is employed at [employer] but has not been working due to her mental health. Pt has a hx of SA by overdose, attempted hanging, and cutting her wrists. She has had inpatient treatment at [place], [place] and [place]. She sees a therapist at [facility] and has her first appointment at [facility] for psychiatric med management. She is requesting inpatient tx because she does not believe she can be safe at home. She confirms the same today, is rather non specific re: her symptoms or why her coping skills didn't work. She denies vegetative symptoms of depression. Reports that tends to have more symptoms in the later afternoon and doesn't feel that Risperdal is enough or that she can tolerate a higher dose due to hx of side effects on 1.5 mg total daily dose. She did benefit from Zyprexa prn last stay but would not want risk of weight gain. Past Psychiatric History Current Psychiatric Diagnosis: Depression Do You Have Access To A Gun?: No Describe Attempts in the Past: OD on sleeping pills 2019 Past Medication Trials: History of fluoxetine, Effexor, Haldol, risperidone, mirtazapine, Lexapro, sertraline, trazodone, now also reports Abilify; latuda was d/c last admit infavor of a trial Risperdal Additional Notes: Current Psychiatric Diagnosis: MDD with SI Outpatient Services: set up with [facility] after recent admission. Given information to reconnect with case management services at [facility]. Previous Psych Admissions: multiple: [facility] last week March 2022 and May 2021, previously at [facility] in early 2020 and [facility] in 2019 status post overdose Allergies Allergy/AdvReac Type Severity Reaction Status Date / Time vancomycin Allergy Intermediate Red/Itchy Verified 03/31/22 19:40 skin Home Medications Medication Instructions Recorded Confirmed Type acetaminophen 500 mg tablet 1,000 mg PO Q6H PRN Pain 03/09/21 04/24/22 History (Tylenol Extra Strength) famotidine 20 mg tablet 20 mg PO BID PRN Acid Reflux 03/09/21 04/24/22 History propranolol 40 mg tablet 40 mg PO BID 03/09/21 04/24/22 History dicyclomine 10 mg capsule 10 mg PO QID PRN ABD PAIN 06/22/21 04/24/22 History fluvoxamine 50 mg tablet 50 mg PO DAILY 30 days #30 tabs 04/09/22 04/24/22 Rx warfarin 2.5 mg tablet See Rx Instructions .Route .COMPLEX 04/16/22 04/24/22 History warfarin 5 mg tablet See Rx Instructions .Route .COMPLEX 04/16/22 04/24/22 History hydroxyzine HCl 25 mg tablet 25 mg PO DAILY PRN anxiety 30 days 04/20/22 04/24/22 Rx #30 tabs hydroxyzine HCl 50 mg tablet 50 mg PO HSZ PRN insomnia/anxiety 04/20/22 04/24/22 Rx 30 days #30 tabs risperidone 0.5 mg tablet 0.5 mg PO [id number] MDD with 04/20/22 04/24/22 Rx psychotic features 30 days #30 tabs trazodone 100 mg tablet 100 mg PO HS PRN insomnia 30 days 04/20/22 04/24/22 Rx #30 tabs Family History Family History of: Depression Alcohol History Hx of Alcohol Use Over the Past 12 Months: No AUDIT Total Score: 0 Smoking Use Have You Smoked or Used Tobacco Products in the Last 30 Days: No Smoking Status: Never smoker Substance History Hx of Prescription Med Misuse Over the Past 12 Months: No Hx of Over the Counter Med Misuse Over the Past 12 Months: No Hx of Inhalent Misuse Over the Past 12 Months: No Hx of Organic Substance Use Over the Past 12 Months: No Hx of Illegal Substances/Street Drug Use Over Past 12 Months: No Problems as a Result of Past Substance Use: None Identified Personal History Living Arrangements: Home Living Arrangements Comments: with and inlaws Highest Grade Completed: Some College 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[employer]) Marital Status: Number Of Children: 0 Beliefs That Will Affect Care: None Hx Legal Problems: No Hx Traumatic Life Events: Yes Patient History Medical History Asplenia Eating disorder, unspecified Intermittent asthma Major depressive disorder with psychotic 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 PTSD (post-traumatic stress disorder) Superior mesenteric vein thrombosis Thrombocytosis Surgical History History of splenectomy Family History Denies family history of Coronary heart disease Social History Smoking Status: Never smoker Hx Alcohol Use: No Hx Substance Use: No Preferred Language: Central African Communication Ability: Effective 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: No Beliefs That Will Affect Care: None marital status: Current Living Situation: Significant Other How many Children do You have: 0 Feels Safe at Home: Yes Assistive Devices: None Review of Systems Review of Systems: All systems reviewed & are unremarkable except as noted in HPI & below Physical Exam Psychiatric: Orientation: alert and oriented x 3 Apperance: appropriately dressed and appropriately groomed Eye Contact: good eye contact Motor Behavior: no abnormal motor movements Speech: normal rate/rhythm/volume of speech Affect: + depressed affect Mood: + depressed mood Thought Process: goal directed thought process Thought Content: reality based without delusions Suicidal Thoughts: denies suicidal thoughts Homicidal Thoughts: denies homicidal thoughts Hallucinations: no auditory hallucinations and no visual hallucinations Cognition: attention grossly intact and language grossly intact Estimated Intelligence: consistent with education level Insight: + limited insight Judgement: + limited judgement Vital Signs (Past 24 Hours): Last Vital Signs Temp 36.8 C 04/25/22 06:43 Pulse 73 04/25/22 06:44 Resp 16 04/25/22 06:43 BP 110/77 04/25/22 06:44 Pulse Ox 99 04/24/22 22:59 O2 Del Method 04/24/22 22:59 Exam Statement: A physical exam was performed in the ED by Dr. Torres for t he purposes of medical clearance. I accept that physical as correct and adequate for the purposes of the inpatient physical exam. Results & Data ([facility]) Laboratory Results Laboratory Results - last 24 hr 04/24/22 04/24/22 04/24/22 16:13 16:33 16:33 WBC 9.72 RBC 4.67 Hgb 14.0 Hct 39.8 MCV 85.2 MCH 30.0 MCHC 35.2 RDW Std Deviation 41.8 RDW Coeff of Toni 13.5 Plt Count 695 H MPV 8.4 L Immature Gran % (Auto) 0.2 Neut % (Auto) 42.5 Lymph % (Auto) 42.1 [place] % (Auto) 12.4 Eos % (Auto) 2.2 Baso % (Auto) 0.6 Neut # (Auto) 4.13 Lymph # (Auto) 4.09 H [place] # (Auto) 1.21 H Eos # (Auto) 0.21 Baso # (Auto) 0.06 Immature Gran # (Auto) 0.02 PT 15.6 H INR 1.5 H Sodium Potassium Chloride Carbon Dioxide Anion Gap BUN Creatinine Est Cr Clr Drug Dosing Est GFR ( Amer) Est GFR (Non-Af Amer) BUN/Creatinine Ratio Glucose Calcium Total Bilirubin AST ALT Alkaline Phosphatase Total Protein Albumin Globulin Albumin/Globulin Ratio TSH HCG, Qual Negative Urine Color Urine Appearance Urine pH Ur Specific Candor Urine Protein Urine Glucose (UA) Urine Ketones Urine Blood Urine Nitrite Urine Bilirubin Urine Urobilinogen Ur Leukocyte Esterase Urine WBC (Auto) Urine RBC (Auto) U Hyaline Cast (Auto) U Epithel Cells (Auto) Urine Bacteria (Auto) Salicylates Urine Opiates Screen Ur Methadone, Qual Acetaminophen Urine Barbiturates Ur Phencyclidine (PCP) U Amphetamin/Meth Scrn MDMA (Ecstasy) Screen U Benzodiazepines Scrn Ur Cocaine Metabolite U Marijuana (THC) Screen Ethyl Alcohol mg/dL SARS-CoV-2, RNA, NAAT 04/24/22 04/24/22 04/24/22 16:33 16:33 16:33 WBC RBC Hgb Hct MCV MCH MCHC RDW Std Deviation RDW Coeff of Toni Plt Count MPV Immature Gran % (Auto) Neut % (Auto) Lymph % (Auto) [place] % (Auto) Eos % (Auto) Baso % (Auto) Neut # (Auto) Lymph # (Auto) [place] # (Auto) Eos # (Auto) Baso # (Auto) Immature Gran # (Auto) PT INR Sodium 138 Potassium 3.8 Chloride 104 Carbon Dioxide 26 Anion Gap 8 BUN 13 Creatinine 0.71 Est Cr Clr Drug Dosing 119.4 Est GFR ( Amer) 139.1 Est GFR (Non-Af Amer) 120.1 BUN/Creatinine Ratio 18.3 Glucose 86 Calcium 9.3 Total Bilirubin 0.3 AST 30 ALT 80 H Alkaline Phosphatase 137 H Total Protein 7.0 Albumin 4.3 Globulin 2.7 Albumin/Globulin Ratio 1.6 TSH 2.625 HCG, Qual Urine Color Urine Appearance Urine pH Ur Specific Candor Urine Protein Urine Glucose (UA) Urine Ketones Urine Blood Urine Nitrite Urine Bilirubin Urine Urobilinogen Ur Leukocyte Esterase Urine WBC (Auto) Urine RBC (Auto) U Hyaline Cast (Auto) U Epithel Cells (Auto) Urine Bacteria (Auto) Salicylates < 3.0 L Urine Opiates Screen Ur Methadone, Qual Acetaminophen < 3 L Urine Barbiturates Ur Phencyclidine (PCP) U Amphetamin/Meth Scrn MDMA (Ecstasy) Screen U Benzodiazepines Scrn Ur Cocaine Metabolite U Marijuana (THC) Screen Ethyl Alcohol mg/dL SARS-CoV-2, RNA, NAAT 04/24/22 04/24/22 04/24/22 16:33 16:38 18:40 WBC RBC Hgb Hct MCV MCH MCHC RDW Std Deviation RDW Coeff of Toni Plt Count MPV Immature Gran % (Auto) Neut % (Auto) Lymph % (Auto) [place] % (Auto) Eos % (Auto) Baso % (Auto) Neut # (Auto) Lymph # (Auto) [place] # (Auto) Eos # (Auto) Baso # (Auto) Immature Gran # (Auto) PT INR Sodium Potassium Chloride Carbon Dioxide Anion Gap BUN Creatinine Est Cr Clr Drug Dosing Est GFR ( Amer) Est GFR (Non-Af Amer) BUN/Creatinine Ratio Glucose Calcium Total Bilirubin AST ALT Alkaline Phosphatase Total Protein Albumin Globulin Albumin/Globulin Ratio TSH HCG, Qual Urine Color Yellow Urine Appearance Cloudy A Urine pH 7.5 Ur Specific Candor 1.015 Urine Protein Negative Urine Glucose (UA) Negative Urine Ketones Negative Urine Blood Negative Urine Nitrite Negative Urine Bilirubin Negative Urine Urobilinogen Negative Ur Leukocyte Esterase Negative Urine WBC (Auto) 1-5 Urine RBC (Auto) 0-4 U Hyaline Cast (Auto) 0 U Epithel Cells (Auto) 10-20 H Urine Bacteria (Auto) Negative Salicylates Urine Opiates Screen Ur Methadone, Qual Acetaminophen Urine Barbiturates Ur Phencyclidine (PCP) U Amphetamin/Meth Scrn MDMA (Ecstasy) Screen U Benzodiazepines Scrn Ur Cocaine Metabolite U Marijuana (THC) Screen Ethyl Alcohol mg/dL < 10.0 SARS-CoV-2, RNA, NAAT NEGATIVE 04/24/22 18:40 WBC RBC Hgb Hct MCV MCH MCHC RDW Std Deviation RDW Coeff of Toni Plt Count MPV Immature Gran % (Auto) Neut % (Auto) Lymph % (Auto) [place] % (Auto) Eos % (Auto) Baso % (Auto) Neut # (Auto) Lymph # (Auto) [place] # (Auto) Eos # (Auto) Baso # (Auto) Immature Gran # (Auto) PT INR Sodium Potassium Chloride Carbon Dioxide Anion Gap BUN Creatinine Est Cr Clr Drug Dosing Est GFR ( Amer) Est GFR (Non-Af Amer) BUN/Creatinine Ratio Glucose Calcium Total Bilirubin AST ALT Alkaline Phosphatase Total Protein Albumin Globulin Albumin/Globulin Ratio TSH HCG, Qual Urine Color Urine Appearance Urine pH Ur Specific Candor Urine Protein Urine Glucose (UA) Urine Ketones Urine Blood Urine Nitrite Urine Bilirubin Urine Urobilinogen Ur Leukocyte Esterase Urine WBC (Auto) Urine RBC (Auto) U Hyaline Cast (Auto) U Epithel Cells (Auto) Urine Bacteria (Auto) Salicylates Urine Opiates Screen Neg Ur Methadone, Qual Neg Acetaminophen Urine Barbiturates Neg Ur Phencyclidine (PCP) Neg U Amphetamin/Meth Scrn Neg MDMA (Ecstasy) Screen Neg U Benzodiazepines Scrn Neg Ur Cocaine Metabolite Neg U Marijuana (THC) Screen Neg Ethyl Alcohol mg/dL SARS-CoV-2, RNA, NAAT Current Inpatient Medications Current Inpatient Medications: Current Inpatient Medications Acetaminophen (Acetaminophen 325 Mg Tab) 650 mg PO Q4H PRN PRN Reason: Headache or Minor Fever Stop: 05/24/22 22:00 Al Hydrox/Mg Hydrox/Simethicone (Aluminum/Magnesium Susp 30 Ml Udc) 30 ml PO Q4H PRN PRN Reason: GI Upset Stop: 05/24/22 22:00 Bismuth Subsalicylate (Bismuth Subsalicylate Liqd 236 Ml) 15 ml PO PRN PRN PRN Reason: Loose Stool Stop: 05/24/22 22:00 Hydroxyzine HCl (Hydroxyzine Hcl 25 Mg Tab) 50 mg PO HSZ PRN PRN Reason: Insomnia Stop: 05/24/22 22:00 Hydroxyzine HCl (Hydroxyzine Hcl 25 Mg Tab) 25 mg PO Q4H PRN PRN Reason: Anxiety Stop: 05/24/22 22:00 Magnesium Hydroxide (Magnesium Hydroxide Susp 30 Ml Udc) 30 ml PO DAILY PRN PRN Reason: Constipation Stop: 05/24/22 22:00 Propranolol HCl (Propranolol Hcl 20 Mg Tab) 40 mg PO BID RENU Stop: 05/24/22 22:59 Last Admin: 04/24/22 23:14 Dose: 40 mg Sodium Chloride (Sodium Chloride 0.65% Na Soln 45 Ml ([place])) 1 - 2 sprays NA PRN PRN PRN Reason: Nasal Dryness/Congestion Stop: 05/24/22 22:00 Trazodone HCl (Trazodone Hcl 100 Mg Tab) 100 mg PO HS PRN PRN Reason: Insomnia Stop: 05/24/22 22:46
[2022-04-25] MEDS ORDERED: risperiDONE 0.5 MG TABLET PO SCH (07:00)
[2022-04-25] MEDS ORDERED: fluvoxaMINE MALEATE 50 MG TAB PO SCH (09:00)
[2022-04-25] MEDS: PROPRANOLOL HCL 20 MG TAB PO SCH ×2 (09:11→20:47)
[2022-04-25] MEDS ORDERED: fluvoxaMINE MALEATE 50 MG TAB PO ONE (12:00)
[2022-04-25] MEDS ORDERED: WARFARIN SOD 2.5 MG TAB PO SCH (16:00)
[2022-04-25] MEDS: OLANZapine 5 MG TABLET PO PRN (17:52)
[2022-04-26] MEDS: PROPRANOLOL HCL 20 MG TAB PO SCH (08:33)
[2022-04-26 08:43] LABS: INR 1.5 (0.9-1.1); Prothrombin Time 15.7 Seconds (9.0-12.0)
[2022-04-26] MEDS ORDERED: fluvoxaMINE MALEATE 50 MG TAB PO SCH (09:00)
[2022-04-26] MEDS: OLANZapine 5 MG TABLET PO PRN (12:04)
--- NOTE | 2022-04-26 14:36 | Discharge Summary ---
Date of Service April 26, 2022 History of Present Illness Patient was admitted on 04/16/22 and discharged with 1 week of short term disability. She was also admitted 04/05/22-04/09/22 for SI with plan. She told ED CM that: Pt was discharged last week from [facility]. She reports increasing SI since discharge with a plan to overdose or "run away and hurt herself". Pt was prescribed Luvox, Risperdone, Trazadone, and Vistaril upon discharge from [address] [place] [address] and is taking them as prescribed. She also reports command hallucinations and states voices are telling her to overdose and kill herself. Pt lives with her and his parents. She is employed at [employer] but has not been working due to her mental health. Pt has a hx of SA by overdose, attempted hanging, and cutting her wrists. She has had inpatient treatment at [place], [place] and [facility]. She sees a therapist at [facility] and has her first appointment at [facility] for psychiatric med management. She is requesting inpatient tx because she does not believe she can be safe at home. She confirms the same today, is rather non specific re: her symptoms or why her coping skills didn't work. She denies vegetative symptoms of depression. Reports that tends to have more symptoms in the later afternoon and doesn't feel that Risperdal is enough or that she can tolerate a higher dose due to hx of side effects on 1.5 mg total daily dose. She did benefit from Zyprexa prn last stay but would not want risk of weight gain. Physical Exam Psychiatric See admission H&P and DOD assessment. Vital Signs (Past 24 Hours) Last Vital Signs Temp 36.7 C 04/26/22 06:42 Pulse 73 04/26/22 06:42 Resp 16 04/26/22 06:42 BP 113/64 04/26/22 06:42 Pulse Ox 96 04/25/22 20:45 O2 Del Method 04/25/22 20:45 Principal Diagnosis major depressive disorder Psychiatric Data See daily stay summary. In short, safety was maintained and the patient was cooperative with care. She actually appeared brighter and calmer than during previous stays and ultimately recognized that she didn't really want to be in the hospital, just wasn't sure with how to cope with her symptoms and going back to work. She was relieved that her medical leave could be extended and would prefer to establish with her outpatient providers at [facility] tomorrow than remain hospitalized as the changes that were initiated here were helpful. She is aware that Zyprexa prn would likely be temporary pending another mood stabilizer given metabolic profile but that [facility] may have access to samples of Lybalvi or other newer atypical that are nonformulary here. Medication changes also included titration of Luvox to 100 mg and they tolerated this well. She feels she can follow her outpatient safety plan and did meet with her showcase maker here who was also supportive of discharge with CSG referral for additional programming. Day of Discharge Assessment Today the patient voices readiness for discharge. They note improvement in mood and deny thoughts to harm self or others. Thoughts remain organized and they are improved from admission. There is no evidence of psychosis. They agree to take mediations as prescribed and keep follow-up appointments. They are stable for discharge to outpatient level of care. Transition of Care Transition Of Care Record: was reviewed with the patient Advance Directives Advance Directives Information Provided: Yes Advance Directives: No Mental Health Advance Directive: No Advance Directives on File: No Living Will: No Power of Manager Chinese: No Advance Directives Reason:: Declines as Mental Health Visit. Suicide Risk Level Suicide Risk Level Comments: Suicide risk at discharge is deemed low as the patient is no longer requiring 24-hr monitoring, has a safety plan, and is free of suicidal ideation at discharge. Risk Factors Assessment : Yes Do You Have Access To A Gun?: No Health Problems: Yes Mental Health Diagnoses: Yes Previous Attempt: Yes Previous Psychiatric Hospitalization: Yes Protective Factors Assessment : Yes Employed: Yes ([employer]) Supportive Family: Yes Tobacco Cessation at Discharge Tobacco Cessation Medication Prescribed at Discharge: Not Applicable/Non-Smoker Total Time Total Time Spent: Greater Than 30 Minutes Total Time Includes: Examination of the patient, Discharge Planning and Medication Reconciliation Discharge Data Lab Results 04/24/22 04/24/22 04/24/22 16:13 16:33 16:33 WBC 9.72 RBC 4.67 Hgb 14.0 Hct 39.8 MCV 85.2 MCH 30.0 MCHC 35.2 RDW Std Deviation 41.8 RDW Coeff of Toni 13.5 Plt Count 695 H MPV 8.4 L Immature Gran % (Auto) 0.2 Neut % (Auto) 42.5 Lymph % (Auto) 42.1 Sumter % (Auto) 12.4 Eos % (Auto) 2.2 Baso % (Auto) 0.6 Neut # (Auto) 4.13 Lymph # (Auto) 4.09 H Sum[place] # (Auto) 1.21 H Eos # (Auto) 0.21 Baso # (Auto) 0.06 Immature Gran # (Auto) 0.02 PT 15.6 H INR 1.5 H Sodium Potassium Chloride Carbon Dioxide Anion Gap BUN Creatinine Est Cr Clr Drug Dosing Est GFR ( Amer) Est GFR (Non-Af Amer) BUN/Creatinine Ratio Glucose Calcium Total Bilirubin AST ALT Alkaline Phosphatase Total Protein Albumin Globulin Albumin/Globulin Ratio TSH HCG, Qual Negative Urine Color Urine Appearance Urine pH Ur Specific [place] Urine Protein Urine Glucose (UA) Urine Ketones Urine Blood Urine Nitrite Urine Bilirubin Urine Urobilinogen Ur Leukocyte Esterase Urine WBC (Auto) Urine RBC (Auto) U Hyaline Cast (Auto) U Epithel Cells (Auto) Urine Bacteria (Auto) Salicylates Urine Opiates Screen Ur Methadone, Qual Acetaminophen Urine Barbiturates Ur Phencyclidine (PCP) U Amphetamin/Meth Scrn MDMA (Ecstasy) Screen U Benzodiazepines Scrn Ur Cocaine Metabolite U Marijuana (THC) Screen Ethyl Alcohol mg/dL SARS-CoV-2, RNA, NAAT 04/24/22 04/24/22 04/24/22 16:33 16:33 16:33 WBC RBC Hgb Hct MCV MCH MCHC RDW Std Deviation RDW Coeff of Toni Plt Count MPV Immature Gran % (Auto) Neut % (Auto) Lymph % (Auto) Sumter % (Auto) Eos % (Auto) Baso % (Auto) Neut # (Auto) Lymph # (Auto) [place] # (Auto) Eos # (Auto) Baso # (Auto) Immature Gran # (Auto) PT INR Sodium 138 Potassium 3.8 Chloride 104 Carbon Dioxide 26 Anion Gap 8 BUN 13 Creatinine 0.71 Est Cr Clr Drug Dosing 119.4 Est GFR ( Amer) 139.1 Est GFR (Non-Af Amer) 120.1 BUN/Creatinine Ratio 18.3 Glucose 86 Calcium 9.3 Total Bilirubin 0.3 AST 30 ALT 80 H Alkaline Phosphatase 137 H Total Protein 7.0 Albumin 4.3 Globulin 2.7 Albumin/Globulin Ratio 1.6 TSH 2.625 HCG, Qual Urine Color Urine Appearance Urine pH Ur Specific [place] Urine Protein Urine Glucose (UA) Urine Ketones Urine Blood Urine Nitrite Urine Bilirubin Urine Urobilinogen Ur Leukocyte Esterase Urine WBC (Auto) Urine RBC (Auto) U Hyaline Cast (Auto) U Epithel Cells (Auto) Urine Bacteria (Auto) Salicylates < 3.0 L Urine Opiates Screen Ur Methadone, Qual Acetaminophen < 3 L Urine Barbiturates Ur Phencyclidine (PCP) U Amphetamin/Meth Scrn MDMA (Ecstasy) Screen U Benzodiazepines Scrn Ur Cocaine Metabolite U Marijuana (THC) Screen Ethyl Alcohol mg/dL SARS-CoV-2, RNA, NAAT 04/24/22 04/24/22 04/24/22 16:33 16:38 18:40 WBC RBC Hgb Hct MCV MCH MCHC RDW Std Deviation RDW Coeff of Toni Plt Count MPV Immature Gran % (Auto) Neut % (Auto) Lymph % (Auto) [place] % (Auto) Eos % (Auto) Baso % (Auto) Neut # (Auto) Lymph # (Auto) [place] # (Auto) Eos # (Auto) Baso # (Auto) Immature Gran # (Auto) PT INR Sodium Potassium Chloride Carbon Dioxide Anion Gap BUN Creatinine Est Cr Clr Drug Dosing Est GFR ( Amer) Est GFR (Non-Af Amer) BUN/Creatinine Ratio Glucose Calcium Total Bilirubin AST ALT Alkaline Phosphatase Total Protein Albumin Globulin Albumin/Globulin Ratio TSH HCG, Qual Urine Color Yellow Urine Appearance Cloudy A Urine pH 7.5 Ur Specific [place] 1.015 Urine Protein Negative Urine Glucose (UA) Negative Urine Ketones Negative Urine Blood Negative Urine Nitrite Negative Urine Bilirubin Negative Urine Urobilinogen Negative Ur Leukocyte Esterase Negative Urine WBC (Auto) 1-5 Urine RBC (Auto) 0-4 U Hyaline Cast (Auto) 0 U Epithel Cells (Auto) 10-20 H Urine Bacteria (Auto) Negative Salicylates Urine Opiates Screen Ur Methadone, Qual Acetaminophen Urine Barbiturates Ur Phencyclidine (PCP) U Amphetamin/Meth Scrn MDMA (Ecstasy) Screen U Benzodiazepines Scrn Ur Cocaine Metabolite U Marijuana (THC) Screen Ethyl Alcohol mg/dL < 10.0 SARS-CoV-2, RNA, NAAT NEGATIVE 04/24/22 04/26/22 18:40 08:10 WBC RBC Hgb Hct MCV MCH MCHC RDW Std Deviation RDW Coeff of Toni Plt Count MPV Immature Gran % (Auto) Neut % (Auto) Lymph % (Auto) [place] % (Auto) Eos % (Auto) Baso % (Auto) Neut # (Auto) Lymph # (Auto) [place] # (Auto) Eos # (Auto) Baso # (Auto) Immature Gran # (Auto) PT 15.7 H INR 1.5 H Sodium Potassium Chloride Carbon Dioxide Anion Gap BUN Creatinine Est Cr Clr Drug Dosing Est GFR ( Amer) Est GFR (Non-Af Amer) BUN/Creatinine Ratio Glucose Calcium Total Bilirubin AST ALT Alkaline Phosphatase Total Protein Albumin Globulin Albumin/Globulin Ratio TSH HCG, Qual Urine Color Urine Appearance Urine pH Ur Specific [place] Urine Protein Urine Glucose (UA) Urine Ketones Urine Blood Urine Nitrite Urine Bilirubin Urine Urobilinogen Ur Leukocyte Esterase Urine WBC (Auto) Urine RBC (Auto) U Hyaline Cast (Auto) U Epithel Cells (Auto) Urine Bacteria (Auto) Salicylates Urine Opiates Screen Neg Ur Methadone, Qual Neg Acetaminophen Urine Barbiturates Neg Ur Phencyclidine (PCP) Neg U Amphetamin/Meth Scrn Neg MDMA (Ecstasy) Screen Neg U Benzodiazepines Scrn Neg Ur Cocaine Metabolite Neg U Marijuana (THC) Screen Neg Ethyl Alcohol mg/dL SARS-CoV-2, RNA, NAAT Hospital Course (1) MDD (major depressive disorder), recurrent, severe, with psychosis: (2) Acquired asplenia: (3) Subtherapeutic international normalized ratio (INR): (4) Brock brock disease: Plan 04/25/22: The patient was admitted to the [facility] on q15 min checks (behavioral with suicide precautions) for safety. The patient will participate in group, recreational, and milieu therapies and will be offered additional individual and family sessions as clinically appropriate. NNPR given community COVID and asplenia. Risks/benefits/alternatives reviewed re: current meds, consented to continue Luvox titration. Consider trial of a different mood stabilizer. Clarify short term disability paperwork status. Coumadin monitoring. Mental Health & Subst Abuse Tx Psychiatrist [facility] Date of Appointment with Psychiatrist: 04/27/22 Time of Appointment with Psychiatrist: 10:15am Psychiatric Appointment Comment: [address] [place], [place] Psychiatrist Release of Information: Obtained, Reviewed and Signed Therapist Name of Therapist: [facility] Date of Therapist Appointment: 05/03/22 Time of Therapist Appointment: 9am Therapy Appointment Comment: [address], [address], [place], [place] Therapist Release of Information: Obtained, Reviewed and Signed Senior Data Warehouse Developer Name of Senior Data Warehouse Developer: Andreea SmithAyse Gina Phone Number for Senior Data Warehouse Developer: [phone] Time of Appointment with Senior Data Warehouse Developer: Gina will attend your psychiatry appointment with you on 04/27. Senior Data Warehouse Developer Release of Information: Obtained, Reviewed and Signed Post Discharge Appointments Primary Care Physician Name Of Family Doctor: Bubba Chaparro Primary Care Provider Appointment Comment: follow up as needed Primary Care Release of Information: Obtained, Reviewed and Signed Smoking Cessation Counseling Tobacco Cessation Medication Prescribed at Discharge: Not Applicable/Non-Smoker Contact Information Discharge Discharge Address: [address] [place] [address] Discharge Plan Discharge Items Patient Disposition: Home - Self-Care Reason For Visit: SUICIDAL THOUGHTS/MDD Discharge Diagnosis: major depressive disorder Activity: Resume your previous activity Non-emergency contact: Primary Care Provider, Psychiatrist and Therapist Call non-emergency contact if: you have any medication questions and your symptoms worsen Follow-up/Referrals: Kinsey Chaparro PA-C [Primary Care Provider] - Diet: Regular Addtl Attending Provider Instructions: SPECIAL CARE INSTRUCTIONS: 1. Follow through with your scheduled aftercare appointments. If unable to keep an appointment, please call to reschedule. 2. Take your medication only as prescribed. Medication should not be changed or stopped without the approval of your doctor. In the event of worsening symptoms or concerns about side effects, contact your doctor immediately. 3. Utilize new healthy coping skills, anger management skills, and stress management skills learned during your hospitalization. Journal feelings and process them with a support person. Identify stressors or situations that may result in relapse, deterioration or inappropriate behaviors and develop a plan to deal with those issues. 4. If your coping skills are ineffective and you are in crisis, contact your outpatient providers for direction. If unable to reach your providers, please call the [facility] CRISIS LINE AT , go to the [facility] walk-in center at [address], [address], [place], or go to the closest Emergency Room. 5. Avoid alcohol and un-prescribed drugs. 6. You have been provided with the Mental Health Advance Directives Pamphlet for your review. 7. Your condition is stable for discharge to outpatient level of care, but recovery is an ongoing process. Ifthoughts to harm yourself or others return, follow the safety plan developed during your stay. Planning for a safe return home includes securing weapons. Our treatment team recommends weaponsbe removed from the home until your outpatient provider reassesses your progress. In rare cases where the items themselvescannot be removed, guns and ammunitionshould be secured separatelyand keys stored by a reliable personoutside of the home. If you were admitted on an involuntary commitment, the police or other legal authorities may be involved in this process. AFTERCARE APPOINTMENTS: * Please call your insurance company prior to your scheduled appointment to confirm your aftercare providers are covered. Take your insurance information to your appointments. WHO TO CALL AND WHEN: Medical Emergencies: For questions or emergencies related to your hospital stay, please contact the Inpatient Behavioral Health Unit at [phone]. A medical laboratory assistant is on-call 18/03 for the Behavioral Health Unit for emergencies At any time you feel your situation is an emergency, you may also call 911 immediately. Pending Studies at Discharge: No Stand-Alone Forms: My [facility] [employer], Smoking Cessation Medications and DC Order Prescriptions: New fluvoxamine 100 mg tablet 100 mg PO DAILY Qty: 30 0RF olanzapine 5 mg Tablet 5 mg PO BID PRN (Reason: hallucinations) 21 Days Qty: 30 0RF Continued acetaminophen [Tylenol Extra Strength] 500 mg Tablet 1,000 mg PO Q6H PRN (Reason: Pain) propranolol 40 mg tablet 40 mg PO BID famotidine 20 mg tablet 20 mg PO BID PRN (Reason: Acid Reflux) dicyclomine 10 mg capsule 10 mg PO QID PRN (Reason: ABD PAIN) warfarin 2.5 mg Tablet See Rx Instructions .ROUTE .COMPLEX Rx Instructions: 2.5 mg orally on Saturday,Saturday and Saturday warfarin 5 mg Tablet See Rx Instructions .ROUTE .COMPLEX Rx Instructions: 5 mg orally Sat, Sun, Tues and Thurs trazodone 100 mg Tablet 100 mg PO HS PRN (Reason: insomnia) 30 Days Qty: 30 0RF hydroxyzine HCl 25 mg Tablet 25 mg PO DAILY PRN (Reason: anxiety) 30 Days Qty: 30 0RF hydroxyzine HCl 50 mg tablet 50 mg PO HSZ PRN (Reason: insomnia/anxiety) 30 Days Qty: 30 0RF Rx Instructions: Take only if trazodone is ineffective Discontinued fluvoxamine 50 mg Tablet 50 mg PO DAILY 30 Days Qty: 30 0RF risperidone 0.5 mg Tablet 0.5 mg PO [id number] 30 Days Qty: 30 0RF Discharge Orders: Discharge Order (Routine); Ordered 04/26/22 Ordered By: Deepthi Mayo Admission Data Admit Date/Time: 04/24/22 22:01 Attending Provider: Deepthi Mayo Admit Provider: Deepthi Mayo Primary Care Provider: Kinsey Chaparro Coding Level of Care Code 13245 D/C day mgmt > 30 min Diagnoses MDD (major depressive disorder), recurrent, severe, with psychosis F33.3 Acquired asplenia Z90.81 Subtherapeutic international normalized ratio (INR) R79.1 Brock brock disease I67.5
[2022-04-26] MEDS ORDERED: WARFARIN SOD 5 MG TAB PO SCH (16:00)
== END 2022-04-26 15:30 | disposition home or self-care (01) | DRG 885 ==
LOC: ED 16:07 → 3S 22:01

== ENCOUNTER 2022-05-27 18:08 | Inpatient (IN) ==
--- NOTE | 2022-05-27 18:33 | Emergency Department Note ---
Impression & Plan Depression with suicidal ideation, MDD (major depressive disorder), recurrent episode, severe, Involuntary commitment ED Provider Note Name: MAKENZIE COSTA Age: 21 Sex: F Arrives Via: Ambulance Informant: Patient, Case Management EMS ED Provider: Tim Holliday MD Chief Complaint: Mental health evaluation Impression: As per impressions above Medical Decision Makin-year-old female with a long history of mental health disease along with multiple medical comorbidities arrives for evaluation of worsening depression over the last day or so and having increasing intrusive thoughts to kill her self by overdose with pills. Patient is unable to comprehend the dangers of the current situation even after several discussions with her. Medically she is cl ear through work-up. There is no evidence of actual overdose nor other harm to self or other acute medical condition going on at this time. Discussion with case management and they as well feel she is incapable of signing self and for mental health treatment. 302 warrant was signed and upheld by [facility] delegate. Patient was excepted to [facility] for further management. Prior Medical Record and Triage/Nursing Notes reviewed by Me Additional history obtained from chart Differentials:Mood disorder, infection, hypoglycemia, electrolyte abnormalities, cardiac sources, intracerebral event, toxicologic, trauma, neurologic, as well as other pathologies. Vital Signs: reviewed and remarkable for no significant abnormalities Labs:Reviewed and remarkable for no significant abnormalities Consults:Mental health case management agrees with hospitalization for acute psychiatric illness. [facility] accepts for transfer to their facility Plan: Disposition:Hospitalization Condition: Good History of Present Illness: 21-year-old female arrives for evaluation of suicidal ideation. Patient with plan to kill self. She was given overdose on all her medications. She has extensive number of medication she is available to do so. She states she was Probably take all of them. She states that the suicide plan was developed today due to worsening depression and intrusive thoughts. She got out of the [facility] about a week ago and states she had initially been doing well until today. Denies any specific inciting event today. Denies actually attempting to harm herself. No etoh, drugs used today. Nothing makes better nor worse. Notes diffuse total body pain. Unknown when that started. No medications taken for this. Denies chest pain, sob, nausea, vomiting, abdominal pain, headache, urinary symptoms, rashes nor other symptoms. ROS: See above HPI for pertinent positives & negatives. A total of 10 systems reviewed and were otherwise negative. Past Medical History:See Below Past Surgical History:See Below Family History:See Below Social History:See Below Home Medications:See Below Allergies:vancomycin Vitals:Blood Pressure: 119/77, Pulse 72, RR 18, T 36.6C, O2 95% on RA Physical Exam: GENERAL: Patient is depressed appearing and in minimal distress. Sleeping on my walking in the room. EYES: No scleral icterus, unremarkable pupils. ENT: Mucous membranes moist, no nasal congestion. NECK: No masses appreciated, nomeningismus, trachea is midline. RESPIRATORY: No dyspnea. Clear to auscultation and equal bilaterally. No wheeze, no rhonchi. CARDIOVASCULAR: Regular rate and rhythm.No murmurs, rubs, gallops appreciated. GASTROINTESTINAL: Abdomen soft, non-tender, no peritonitis.Bowel sounds positive.No masses appreciated. BACK: No midline tenderness, no CVA tenderness EXTREMITIES: Normal motion all extremities, no cyanosis, no edema. NEUROLOGIC: Alert and oriented, no acute motor or sensory deficits, no focal weakness, cranial nerves grossly intact. SKIN: No rash, no jaundice, no diaphoresis. PSYCH: states suicidal with plan to overdose and having intrusive thoughts. 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 PTSD (post-traumatic stress disorder) Superior mesenteric vein thrombosis Thrombocytosis Surgical History History of splenectomy Family History Denies family history of Coronary heart disease Social History Smoking Status: Never smoker Hx Alcohol Use: No Hx Substance Use: No Preferred Language: Icelandic Communication Ability: Effective Conduit Cleaner Required: No Beliefs That Will Affect Care: None marital status: Current Living Situation: Significant Other How many Children do You have: 0 Feels Safe at Home: Yes Assistive Devices: Glasses Allergies Allergies Allergy/AdvReac Type Severity Reaction Status Date / Time vancomycin Allergy Intermediate Red/Itchy Verified 03/31/22 19:40 skin Home Meds Home Medications Medication Instructions Recorded Confirmed famotidine 20 mg tablet 20 mg PO BID PRN Acid Reflux 03/09/21 05/28/22 dicyclomine 10 mg capsule 10 mg PO QID PRN ABD PAIN 06/22/21 05/28/22 warfarin 2.5 mg tablet See Rx Instructions .Route .COMPLEX 04/16/22 05/28/22 warfarin 5 mg tablet See Rx Instructions .Route .COMPLEX 04/16/22 05/28/22 gabapentin 600 mg tablet 600 mg PO TID 05/28/22 05/28/22 levetiracetam 1,000 mg tablet 1,000 mg PO HS mood 05/28/22 05/28/22 (Keppra) levetiracetam 500 mg tablet 500 mg PO BID 05/28/22 05/28/22 prazosin 1 mg capsule 1 mg PO HS 05/28/22 05/28/22 propranolol 20 mg tablet 20 mg PO BID 05/28/22 05/28/22 sertraline 100 mg tablet 200 mg PO DAILY 05/28/22 05/28/22 trazodone 150 mg tablet 150 mg HS insomnia 05/28/22 05/28/22 Results & Data (ED) Vital Signs Vital Signs - 24 hr 05/27/22 18:17 Temperature 36.5 C Temperature Source Oral Pulse Rate 72 Respiratory Rate 16 Respiratory Effort / Characteristics Non-Labored Spontaneous Respiratory Depth Normal Blood Pressure 110/68 Blood Pressure Mean 82 Pulse Oximetry 95 Oxygen Delivery Method Room Air Sepsis Recent Fever Within 48 Hours No Sepsis New/Unexplained Change in Mental Status No Sepsis Action Taken by Nursing No Action Required Laboratory Data Result diagrams: 05/27/22 18:32 05/27/22 18:32 Lab Results 05/27/22 05/27/22 05/27/22 Range/Units 18:26 18:26 18:26 WBC (4.8-10.8) K/ul RBC (3.93-5.22) M/uL Hgb (12.0-16.0) g/dl Hct (34.1-44.9) % MCV (80.0-100.0) fL MCH (25.0-34.0) pg MCHC (32.0-36.0) g/dL RDW Std Deviation (36.4-46.3) fL RDW Coeff of Toni (11.5-14.5) % Plt Count (130-400) K/uL MPV (9.4-12.3) fL Immature Gran % (Auto) % Neut % (Auto) % Lymph % (Auto) % [place] % (Auto) % Eos % (Auto) % Baso % (Auto) % Neut # (Auto) (1.4-6.5) K/uL Lymph # (Auto) (1.2-3.4) K/uL [place] # (Auto) (0.24-0.82) K/uL Eos # (Auto) (0-0.50) K/uL Baso # (Auto) (0-0.2) K/uL Immature Gran # (Auto) (0.00-0.02) K/uL Sodium (136-145) mmol/L Potassium (3.5-5.1) mmol/L Chloride (98-107) mmol/L Carbon Dioxide (21-32) mmol/L Anion Gap (3-11) BUN (6-23) mg/dl Creatinine (0.6-1.2) mg/dl Est Cr Clr Drug Dosing ml/min Est GFR ( Amer) ml/min Est GFR (Non-Af Amer) ml/min BUN/Creatinine Ratio (10-20) Glucose (70-99(Fasting)) mg/dl Calcium (8.5-10.1) mg/dl Total Bilirubin (0.2-1.0) mg/dl AST (13-39) U/L ALT (7-52) U/L Alkaline Phosphatase (34-104) U/L Total Protein (6.0-8.3) gm/dl Albumin (3.4-5.0) gm/dl Globulin (2.5-4.0) gm/dl Albumin/Globulin Ratio (0.9-2) TSH (0.300-4.500) uIu/ml Urine Color Yellow Urine Appearance Clear (Clear) Urine pH 7.0 (4.5-7.5) Ur Specific [place] 1.014 (1.000-1.030) Urine Protein Negative (Negative) Urine Glucose (UA) Negative (Negative) Urine Ketones 3+ H (Negative) Urine Blood Negative (Negative) Urine Nitrite Negative (Negative) Urine Bilirubin Negative (Negative) Urine Urobilinogen Negative (Negative) Ur Leukocyte Esterase Negative (Negative) Urine Test Negative (Negative) Salicylates (3.0-30) mg/dl Urine Opiates Screen (Neg) Ur Methadone, Qual (Neg) Acetaminophen (10-30) ug/ml Urine Barbiturates (Neg) Ur Phencyclidine (PCP) (Neg) U Amphetamin/Meth Scrn (Neg) MDMA (Ecstasy) Screen (Neg) U Benzodiazepines Scrn (Neg) Ur Cocaine Metabolite (Neg) U Marijuana (THC) Screen (Neg) Ethyl Alcohol mg/dL (<10.0) mg/dl SARS-CoV-2, RNA, NAAT NEGATIVE (NEGATIVE) 05/27/22 05/27/22 05/27/22 Range/Units 18:26 18:32 18:32 WBC 10.61 (4.8-10.8) K/ul RBC 4.82 (3.93-5.22) M/uL Hgb 14.6 (12.0-16.0) g/dl Hct 40.4 (34.1-44.9) % MCV 83.8 (80.0-100.0) fL MCH 30.3 (25.0-34.0) pg MCHC 36.1 H (32.0-36.0) g/dL RDW Std Deviation 39.6 (36.4-46.3) fL RDW Coeff of Toni 12.9 (11.5-14.5) % Plt Count 726 H (130-400) K/uL MPV 8.4 L (9.4-12.3) fL Immature Gran % (Auto) 0.3 % Neut % (Auto) 48.6 % Lymph % (Auto) 36.0 % [place] % (Auto) 12.3 % Eos % (Auto) 1.8 % Baso % (Auto) 1.0 % Neut # (Auto) 5.16 (1.4-6.5) K/uL Lymph # (Auto) 3.82 H (1.2-3.4) K/uL [place] # (Auto) 1.30 H (0.24-0.82) K/uL Eos # (Auto) 0.19 (0-0.50) K/uL Baso # (Auto) 0.11 (0-0.2) K/uL Immature Gran # (Auto) 0.03 H (0.00-0.02) K/uL Sodium 135 L (136-145) mmol/L Potassium 4.2 (3.5-5.1) mmol/L Chloride 103 (98-107) mmol/L Carbon Dioxide 24 (21-32) mmol/L Anion Gap 8 (3-11) BUN 11 (6-23) mg/dl Creatinine 0.71 (0.6-1.2) mg/dl Est Cr Clr Drug Dosing 121.5 ml/min Est GFR ( Amer) 139.1 ml/min Est GFR (Non-Af Amer) 120.1 ml/min BUN/Creatinine Ratio 15.5 (10-20) Glucose 84 (70-99(Fasting)) mg/dl Calcium 9.2 (8.5-10.1) mg/dl Total Bilirubin 0.4 (0.2-1.0) mg/dl AST 19 (13-39) U/L ALT 19 (7-52) U/L Alkaline Phosphatase 119 H (34-104) U/L Total Protein 7.5 (6.0-8.3) gm/dl Albumin 4.4 (3.4-5.0) gm/dl Globulin 3.1 (2.5-4.0) gm/dl Albumin/Globulin Ratio 1.4 (0.9-2) TSH (0.300-4.500) uIu/ml Urine Color Urine Appearance (Clear) Urine pH (4.5-7.5) Ur Specific [place] (1.000-1.030) Urine Protein (Negative) Urine Glucose (UA) (Negative) Urine Ketones (Negative) Urine Blood (Negative) Urine Nitrite (Negative) Urine Bilirubin (Negative) Urine Urobilinogen (Negative) Ur Leukocyte Esterase (Negative) Urine Test (Negative) Salicylates (3.0-30) mg/dl Urine Opiates Screen Neg (Neg) Ur Methadone, Qual Neg (Neg) Acetaminophen (10-30) ug/ml Urine Barbiturates Neg (Neg) Ur Phencyclidine (PCP) Neg (Neg) U Amphetamin/Meth Scrn Neg (Neg) MDMA (Ecstasy) Screen Pos H (Neg) U Benzodiazepines Scrn Neg (Neg) Ur Cocaine Metabolite Neg (Neg) U Marijuana (THC) Screen Neg (Neg) Ethyl Alcohol mg/dL (<10.0) mg/dl SARS-CoV-2, RNA, NAAT (NEGATIVE) 05/27/22 05/27/22 05/27/22 Range/Units 18:32 18:32 18:32 WBC (4.8-10.8) K/ul RBC (3.93-5.22) M/uL Hgb (12.0-16.0) g/dl Hct (34.1-44.9) % MCV (80.0-100.0) fL MCH (25.0-34.0) pg MCHC (32.0-36.0) g/dL RDW Std Deviation (36.4-46.3) fL RDW Coeff of Toni (11.5-14.5) % Plt Count (130-400) K/uL MPV (9.4-12.3) fL Immature Gran % (Auto) % Neut % (Auto) % Lymph % (Auto) % [place] % (Auto) % Eos % (Auto) % Baso % (Auto) % Neut # (Auto) (1.4-6.5) K/uL Lymph # (Auto) (1.2-3.4) K/uL [place] # (Auto) (0.24-0.82) K/uL Eos # (Auto) (0-0.50) K/uL Baso # (Auto) (0-0.2) K/uL Immature Gran # (Auto) (0.00-0.02) K/uL Sodium (136-145) mmol/L Potassium (3.5-5.1) mmol/L Chloride (98-107) mmol/L Carbon Dioxide (21-32) mmol/L Anion Gap (3-11) BUN (6-23) mg/dl Creatinine (0.6-1.2) mg/dl Est Cr Clr Drug Dosing ml/min Est GFR ( Amer) ml/min Est GFR (Non-Af Amer) ml/min BUN/Creatinine Ratio (10-20) Glucose (70-99(Fasting)) mg/dl Calcium (8.5-10.1) mg/dl Total Bilirubin (0.2-1.0) mg/dl AST (13-39) U/L ALT (7-52) U/L Alkaline Phosphatase (34-104) U/L Total Protein (6.0-8.3) gm/dl Albumin (3.4-5.0) gm/dl Globulin (2.5-4.0) gm/dl Albumin/Globulin Ratio (0.9-2) TSH 2.475 (0.300-4.500) uIu/ml Urine Color Urine Appearance (Clear) Urine pH (4.5-7.5) Ur Specific [place] (1.000-1.030) Urine Protein (Negative) Urine Glucose (UA) (Negative) Urine Ketones (Negative) Urine Blood (Negative) Urine Nitrite (Negative) Urine Bilirubin (Negative) Urine Urobilinogen (Negative) Ur Leukocyte Esterase (Negative) Urine Test (Negative) Salicylates < 3.0 L (3.0-30) mg/dl Urine Opiates Screen (Neg) Ur Methadone, Qual (Neg) Acetaminophen < 3 L (10-30) ug/ml Urine Barbiturates (Neg) Ur Phencyclidine (PCP) (Neg) U Amphetamin/Meth Scrn (Neg) MDMA (Ecstasy) Screen (Neg) U Benzodiazepines Scrn (Neg) Ur Cocaine Metabolite (Neg) U Marijuana (THC) Screen (Neg) Ethyl Alcohol mg/dL < 10.0 (<10.0) mg/dl SARS-CoV-2, RNA, NAAT (NEGATIVE) Administered Medications Warfarin Sodium (Warfarin Sod 2.5 Mg Tab) 2.5 mg PO [id number] Stop: 06/27/22 15:59 Last Admin: 05/28/22 15:34 Dose: 2.5 mg Documented By: LEOBARDO Discontinued Medications Levetiracetam (Levetiracetam 500 Mg Tab) 1,000 mg PO NOW STA Stop: 05/28/22 00:28 Last Admin: 05/28/22 00:50 Dose: 1,000 mg Documented By: TOSHIA Prazosin HCl (Prazosin Hcl 1 Mg Cap) 1 mg PO NOW STA Stop: 05/28/22 00:30 Last Admin: 05/28/22 00:50 Dose: 1 mg Documented By: TOSHIA Trazodone HCl (Trazodone Hcl 50 Mg Tab) 150 mg PO NOW STA Stop: 05/28/22 00:30 Last Admin: 05/28/22 00:50 Dose: 150 mg Documented By: TOSHIA Discharge Plan Visit Data Chief Complaint: Mental Health Evaluation Stated Complaint: [facility] ED Provider: Tim Holliday Discharge Problem: Depression with suicidal ideation, MDD (major depressive disorder), recurrent episode, severe, Involuntary commitment Patient Disposition: Admitted As Inpatient Discharge Instructions Interventions: ED Discharge Assessment Last Done: 05/27/22 23:59 : MDD (major depressive disorder), recurrent episode, severe Qualifiers: Psychotic features: without psychotic features Qualified Code(s): F33.2 - Major depressive disorder, recurrent severe without psychotic features
[2022-05-27 18:43] LABS: Basophils # (auto) 0.11 K/uL (0-0.2); Eosinophils # (auto) 0.19 K/uL (0-0.50); Eosinophils % (auto) 1.8 %; Hematocrit (blood only) 40.4 % (34.1-44.9); Hemoglobin 14.6 g/dl (12.0-16.0); Immature Granulocytes # (auto) 0.03 K/uL (0.00-0.02); Immature Granulocytes % (auto) 0.3 %; Lymphocytes # (auto) 3.82 K/uL (1.2-3.4); Mean Corpuscular Hemoglobin 30.3 pg (25.0-34.0); Mean Corpuscular Hgb Conc 36.1 g/dL (32.0-36.0); Mean Corpuscular Volume 83.8 fL (80.0-100.0); Mean Platelet Volume 8.4 fL (9.4-12.3); Monocytes % (auto) 12.3 %; Neutrophils # (auto) 5.16 K/uL (1.4-6.5); Neutrophils % (auto) 48.6 %; Platelet Count 726 K/uL (130-400); RDW Coefficient of Variation 12.9 % (11.5-14.5); RDW Standard Deviation 39.6 fL (36.4-46.3); Red Blood Count 4.82 M/uL (3.93-5.22); White Blood Count 10.61 K/ul (4.8-10.8)
[2022-05-27 18:47] LABS: Pregnancy Test, Urine Negative (Negative)
[2022-05-27 18:49] LABS: Appearance Urine Clear (Clear); Bilirubin Urine Negative (Negative); Blood Urine Negative (Negative); Color Urine Yellow; Glucose Urine UA Negative (Negative); Ketones Urine 3+ (Negative); Leukocyte Esterase Urine Negative (Negative); Nitrite Urine Negative (Negative); Protein Urine Negative (Negative); Specific Gravity Urine 1.014 (1.000-1.030); Urobilinogen Urine Negative (Negative)
[2022-05-27 19:09] LABS: Albumin Globulin Ratio 1.4 (0.9-2); Albumin Level 4.4 gm/dl (3.4-5.0); BUN Creatinine Ratio 15.5 (10-20); Bilirubin,Total 0.4 mg/dl (0.2-1.0); Calcium 9.2 mg/dl (8.5-10.1); Creatinine Clr Calc Pharmacy 121.5 ml/min; Est GFR (African American) 139.1 ml/min; Est GFR (Non-African American) 120.1 ml/min; Globulin 3.1 gm/dl (2.5-4.0); Potassium 4.2 mmol/L (3.5-5.1); Total Protein 7.5 gm/dl (6.0-8.3)
[2022-05-27 19:18] LABS: Acetaminophen < 3 ug/ml (10-30); Salicylate < 3.0 mg/dl (3.0-30)
[2022-05-27 19:19] LABS: Amphetamines+Metham, Urine Neg (Neg); Barbiturates, Urine Neg (Neg); Benzodiazepine, Urine Neg (Neg); Cocaine, Urine Neg (Neg); MDMA (Ecstacy), Urine Pos (Neg); Methadone, Urine Neg (Neg); Opiate, Urine Neg (Neg); Phencyclidine, Urine Neg (Neg)
[2022-05-28] MEDS ORDERED: levETIRAcetam 500 MG TAB PO STA (00:27)
[2022-05-28] MEDS ORDERED: traZODone HCL 50 MG TAB PO STA (00:29)
[2022-05-28] MEDS ORDERED: PRAZOSIN HCL 1 MG CAP PO STA (00:29)
[2022-05-28] MEDS ORDERED: BISMUTH SUBSALICYLATE LIQD 236 ML PO PRN (00:30)
[2022-05-28] MEDS ORDERED: ALUMINUM/MAGNESIUM SUSP 30 ML UDC PO PRN (00:30)
[2022-05-28] MEDS ORDERED: hydrOXYzine HCl 25 MG TAB PO PRN (00:30)
[2022-05-28] MEDS ORDERED: SODIUM CHLORIDE 0.65% NA SOLN 45 ML (OCEAN) PRN (00:30)
[2022-05-28] MEDS ORDERED: MAGNESIUM HYDROXIDE SUSP 30 ML UDC PO PRN (00:30)
--- NOTE | 2022-05-28 08:25 | History & Physical ---
Date of Service May 28, 2022 Impression / Recommendations Impression The patient is a 21 year old with a history of BPD, PTSD and MDD with psychotic features with multiple recent psychiatric hospitalizations, this is the fifth since mid-March, for SI with plan of overdosing and continuing decompensation in the outpatient setting, no longer working. Diagnostically differential includes BPD with worsening SI though unclear what potential interpersonal stressors may be contributing to this versus restrictive eating disorder versus secondary gain of getting disability versus MDD. The patient is deemed unstable and requires psychiatric hospitalization for diagnostic clarification, safety and stabilization, medication management and development of further coping skills. She was able to participate somewhat in a discussion about her medications. She has been on various medication trials in the past and typically improves quickly and then also decompensates quickly when she re-develops SI in the outpatient setting. This seems to be more consistent with BPD presentation than MDD which also fits with limited benefit of medication trials to date. She consents to continue with sertraline, trazodone, prazosin, gabapentin and taper Keppra. Reviewed side effects including but not limited to: GI/MERCADO/vivid dreams/SI with sertraline; sedation with trazodone; syncope with prazosin; dizziness/respiratory suppression with gabapentin; irritability with Keppra. MNPR due to high community prevalence of COVID and asplenic with higher infection risk (1) Borderline personality disorder: (2) Depression with suicidal ideation: (3) Eating disorder, unspecified: (4) Acquired asplenia: (5) PTSD (post-traumatic stress disorder): (6) Asplenia: Plan 05/28/22: The patient was admitted to the [facility] ([facility] mental health unit) on q15 min checks (behavioral with suicide precautions) for safety. The patient will participate in group, recreational, and milieu therapies and will be offered additional individual and family sessions as clinically appropriate. -Continue sertraline 200mg qd, trazodone 150mg qhs, prazosin 1mg qhs, gabapentin 600mg BID -Taper Keppra as concern this is adding to irritability, will reduce to 500mg BID with plan for taper to discontinuation -Continue to monitor and encourage po intake -No available records from the [facility] as discharge paperwork has not yet been completed from her stay Inventory Assets Strengths: supportive relationships, outpatient providers, had period of outpatient stability in the past, manages medical issues Needs: safety and stabilization, medication adjustment, additional coping skills, increased outpatient services Suicide Risk Level Suicide Risk Level: High-Moderate (q15 min suicide checks) Suicide Risk Level Comments: High-Moderate due to severe depression with SI with plan prior to admission but no specific plan in the hospital, able to safety contract and agrees to let nursing/staff know should she develop specific plan, intent or feel unable to remain safe. Risk Factors Assessment : Yes Do You Have Access To A Gun?: No Health Problems: Yes Mental Health Diagnoses: Yes Substance Use Disorders: No Previous Attempt: Yes Previous Psychiatric Hospitalization: Yes Hopelessness: Yes Protective Factors Assessment : Yes Employed: No Stable Relationships: Yes Supportive Family: Yes Psychiatric History Identifying Data MAKENZIE COSTA is a 21-year-old F who currently lives in [place] with her and in-laws, has a history of MDD with psychotic features, PTSD, BPD, Brock brokc disease, superior mesenteric venous thrombus, asplenia and was admitted on 05/27/22 22:55 on a 302 involuntary commitment for SI with plan of overdosing on medications. Chief Complaint "I'd rather be ". History of Present Illness Makenzie is well known to our service and presents for psychiatric admission for worsening depression and SI with plan of overdosing on her medications after she told her of her plan and he contacted EMS. She would not agree to voluntary treatment and is on a 302 commitment. This is her fifth hospitalization since mid-March and was just discharged from [facility] after a three week admission on May 21. Since admission last night to [facility] she has been continuing to endorse SI and has been lying in the quiet room all day refusing to engage or engaging only minimally. She feels the [facility] hospitalization was helpful and that she benefitting from her medications but that a few days ago she started to feel depressed again and have SI. She cannot identify any acute stressors or precipitants to her SI. She continues to feel depressed reporting no po intake over the last two days stating a desire to , "I'm going to starve myself so I can kill myself". She feels very hopeless. She denies any voices or auditory hallucinations. She was recently fired from her job in early April. She states she has been adherent with her Coumadin as well as the medications started at the [facility] which include: sertraline, Keppra (she confirms this was for mood symptoms, denies any history of nor recent seizures), prazosin, gabapentin, and trazodone. Initially had been reports of recent venlafaxine 150mg BID as well. Further history reviewed per ED case management note on 05/27/22: "Met with Makenzie bedside. Makenzie stated "I was suicidal and planning to OD on all my pills. My called 911." Makenzie stated she had all of her medication bottles with intent to take them all. She reports prior suicide attempt by OD in 2019. [...] She reports increasing paranoia that people are out to get her. She is unable to identify a specific stressors stating "it's just my depression." Makenzie is not agreeable with recommendation for inpatient mental health treatment. Explained involuntary commitment process and petitioning statement. Makenzie stated she has been 302'd before and "just do what you need to do."" Further history limited by her reluctance/inability to engage with the interview. She has a history of restrictive eating disorder as well as PTSD and hearing voices and was self-harming during her admission at the [facility] using a spork. No known history of sarmad. Past Psychiatric History Current Psychiatric Diagnosis: Borderline Personality; PTSD; MDD Outpatient Services: [facility] and [facility] Previous Psych Admissions: multiple: [facility] for 3 weeks in Apr 2022 [facility] x 3 in March 2022 [facility] May 2021 [place] early 2020 [facility] 2019 Do You Have Access To A Gun?: No History of Previous Suicide Attempt: Yes Describe Attempts in the Past: OD in 2019 Past Medication Trials: SSRIs: luvox, sertraline, fluoxetine, escitalopram SNRI: venlafaxine Trazodone mirtazapine Vistaril Antipsychotics: Latuda, abilify, risperidone, haldol, zyprexa Gabapentin Keppra Clonazepam Past Head Trauma/Neuro History History of Concussion/Seizure: No Allergies Allergy/AdvReac Type Severity Reaction Status Date / Time vancomycin Allergy Intermediate Red/Itchy Verified 03/31/22 19:40 skin Home Medications Medication Instructions Recorded Confirmed Type famotidine 20 mg tablet 20 mg PO BID PRN Acid Reflux 03/09/21 05/28/22 History dicyclomine 10 mg capsule 10 mg PO QID PRN ABD PAIN 06/22/21 05/28/22 History warfarin 2.5 mg tablet See Rx Instructions .Route .COMPLEX 04/16/22 05/28/22 History warfarin 5 mg tablet See Rx Instructions .Route .COMPLEX 04/16/22 05/28/22 History gabapentin 600 mg tablet 600 mg PO TID 05/28/22 05/28/22 History levetiracetam 1,000 mg tablet 1,000 mg PO HS mood 05/28/22 05/28/22 History (Keppra) levetiracetam 500 mg tablet 500 mg PO BID 05/28/22 05/28/22 History prazosin 1 mg capsule 1 mg PO HS 05/28/22 05/28/22 History propranolol 20 mg tablet 20 mg PO BID 05/28/22 05/28/22 History sertraline 100 mg tablet 200 mg PO DAILY 05/28/22 05/28/22 History trazodone 150 mg tablet 150 mg HS insomnia 05/28/22 05/28/22 History Family History Family History of: Doesn't Know Alcohol History Hx of Alcohol Use Over the Past 12 Months: No AUDIT Total Score: 0 Smoking Use Have You Smoked or Used Tobacco Products in the Last 30 Days: No Smoking Status: Never smoker Substance History Hx of Prescription Med Misuse Over the Past 12 Months: No Hx of Over the Counter Med Misuse Over the Past 12 Months: No Hx of Inhalent Misuse Over the Past 12 Months: No Hx of Organic Substance Use Over the Past 12 Months: No Hx of Illegal Substances/Street Drug Use Over Past 12 Months: No Problems as a Result of Past Substance Use: None Identified Personal History Living Arrangements: Apartment Highest Grade Completed: Some College Employment Status: Unemployed Marital Status: Number Of Children: 0 Beliefs That Will Affect Care: None Current Legal Problems: No Hx Legal Problems: No Hx Traumatic Life Events: Yes Patient History Medical History Asplenia Depression with suicidal ideation Eating disorder, unspecified Intermittent asthma Major depressive disorder with psychotic 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 PTSD (post-traumatic stress disorder) Suicidal ideation Superior mesenteric vein thrombosis Thrombocytosis Surgical History History of splenectomy Family History Denies family history of Coronary heart disease Social History Smoking Status: Never smoker Hx Alcohol Use: No Hx Substance Use: No Preferred Language: Citizen Of [place] Communication Ability: Effective District Representative Required: No Beliefs That Will Affect Care: None marital status: Current Living Situation: Significant Other How many Children do You have: 0 Feels Safe at Home: Yes Assistive Devices: Glasses Review of Systems Review of Systems: All systems reviewed & are unremarkable except as noted in HPI & below Physical Exam Psychiatric: Orientation: alert and oriented x 3 Apperance: + disheveled Eye Contact: + poor eye contact Motor Behavior: no abnormal motor movements Speech: normal rate/rhythm/volume of speech Affect: + flat affect Mood: + depressed mood and + irritable mood Thought Process: goal directed thought process Thought Content: reality based without delusions Suicidal Thoughts: denies suicidal thoughts and denies suicidal intent; + reports suicidal plan (starve herself, denies any plans since she is in the hospital "not here") Homicidal Thoughts: denies homicidal thoughts Hallucinations: no auditory hallucinations and no visual hallucinations Cognition: recent memory grossly intact, remote memory grossly intact, attention grossly intact and language grossly intact Estimated Intelligence: consistent with education level Insight: + limited insight Judgement: + impaired judgement Vital Signs (Past 24 Hours): Last Vital Signs Temp 36.6 C 05/28/22 00:16 Pulse 72 05/27/22 18:17 Resp 18 05/28/22 00:16 BP 119/77 05/28/22 00:16 Pulse Ox 95 05/27/22 18:17 O2 Del Method 05/27/22 18:17 Exam Statement: A physical exam was performed in the ED by Dr. Holliday for the purposes of medical clearance. I accept that physical as correct and adequate for the purposes of the inpatient physical exam. Results & Data ([facility]) Laboratory Results Laboratory Results - last 24 hr 05/27/22 05/27/22 05/27/22 18:26 18:26 18:26 WBC RBC Hgb Hct MCV MCH MCHC RDW Std Deviation RDW Coeff of Toni Plt Count MPV Immature Gran % (Auto) Neut % (Auto) Lymph % (Auto) Grand % (Auto) Eos % (Auto) Baso % (Auto) Neut # (Auto) Lymph # (Auto) Grand # (Auto) Eos # (Auto) Baso # (Auto) Immature Gran # (Auto) Sodium Potassium Chloride Carbon Dioxide Anion Gap BUN Creatinine Est Cr Clr Drug Dosing Est GFR ( Amer) Est GFR (Non-Af Amer) BUN/Creatinine Ratio Glucose Calcium Total Bilirubin AST ALT Alkaline Phosphatase Total Protein Albumin Globulin Albumin/Globulin Ratio TSH Urine Color Yellow Urine Appearance Clear Urine pH 7.0 Ur Specific [place] 1.014 Urine Protein Negative Urine Glucose (UA) Negative Urine Ketones 3+ H Urine Blood Negative Urine Nitrite Negative Urine Bilirubin Negative Urine Urobilinogen Negative Ur Leukocyte Esterase Negative Urine Test Negative Salicylates Urine Opiates Screen Ur Methadone, Qual Acetaminophen Urine Barbiturates Ur Phencyclidine (PCP) U Amphetamin/Meth Scrn Urine MDEA MDMA (Ecstasy) Screen MDMA Urine MDMA U Benzodiazepines Scrn Ur Cocaine Metabolite U Marijuana (THC) Screen Ethyl Alcohol mg/dL SARS-CoV-2, RNA, NAAT NEGATIVE 05/27/22 05/27/22 05/27/22 18:26 18:26 18:32 WBC 10.61 RBC 4.82 Hgb 14.6 Hct 40.4 MCV 83.8 MCH 30.3 MCHC 36.1 H RDW Std Deviation 39.6 RDW Coeff of Toni 12.9 Plt Count 726 H MPV 8.4 L Immature Gran % (Auto) 0.3 Neut % (Auto) 48.6 Lymph % (Auto) 36.0 Grand % (Auto) 12.3 Eos % (Auto) 1.8 Baso % (Auto) 1.0 Neut # (Auto) 5.16 Lymph # (Auto) 3.82 H Grand # (Auto) 1.30 H Eos # (Auto) 0.19 Baso # (Auto) 0.11 Immature Gran # (Auto) 0.03 H Sodium Potassium Chloride Carbon Dioxide Anion Gap BUN Creatinine Est Cr Clr Drug Dosing Est GFR ( Amer) Est GFR (Non-Af Amer) BUN/Creatinine Ratio Glucose Calcium Total Bilirubin AST ALT Alkaline Phosphatase Total Protein Albumin Globulin Albumin/Globulin Ratio TSH Urine Color Urine Appearance Urine pH Ur Specific [place] Urine Protein Urine Glucose (UA) Urine Ketones Urine Blood Urine Nitrite Urine Bilirubin Urine Urobilinogen Ur Leukocyte Esterase Urine Test Salicylates Urine Opiates Screen Neg Ur Methadone, Qual Neg Acetaminophen Urine Barbiturates Neg Ur Phencyclidine (PCP) Neg U Amphetamin/Meth Scrn Neg Urine MDEA Pending MDMA (Ecstasy) Screen Pos H MDMA Pending Urine MDMA Pending U Benzodiazepines Scrn Neg Ur Cocaine Metabolite Neg U Marijuana (THC) Screen Neg Ethyl Alcohol mg/dL SARS-CoV-2, RNA, NAAT 05/27/22 05/27/22 05/27/22 18:32 18:32 18:32 WBC RBC Hgb Hct MCV MCH MCHC RDW Std Deviation RDW Coeff of Toni Plt Count MPV Immature Gran % (Auto) Neut % (Auto) Lymph % (Auto) Grand % (Auto) Eos % (Auto) Baso % (Auto) Neut # (Auto) Lymph # (Auto) Grand # (Auto) Eos # (Auto) Baso # (Auto) Immature Gran # (Auto) Sodium 135 L Potassium 4.2 Chloride 103 Carbon Dioxide 24 Anion Gap 8 BUN 11 Creatinine 0.71 Est Cr Clr Drug Dosing 121.5 Est GFR ( Amer) 139.1 Est GFR (Non-Af Amer) 120.1 BUN/Creatinine Ratio 15.5 Glucose 84 Calcium 9.2 Total Bilirubin 0.4 AST 19 ALT 19 Alkaline Phosphatase 119 H Total Protein 7.5 Albumin 4.4 Globulin 3.1 Albumin/Globulin Ratio 1.4 TSH 2.475 Urine Color Urine Appearance Urine pH Ur Specific [place] Urine Protein Urine Glucose (UA) Urine Ketones Urine Blood Urine Nitrite Urine Bilirubin Urine Urobilinogen Ur Leukocyte Esterase Urine Test Salicylates < 3.0 L Urine Opiates Screen Ur Methadone, Qual Acetaminophen < 3 L Urine Barbiturates Ur Phencyclidine (PCP) U Amphetamin/Meth Scrn Urine MDEA MDMA (Ecstasy) Screen MDMA Urine MDMA U Benzodiazepines Scrn Ur Cocaine Metabolite U Marijuana (THC) Screen Ethyl Alcohol mg/dL SARS-CoV-2, RNA, NAAT 05/27/22 18:32 WBC RBC Hgb Hct MCV MCH MCHC RDW Std Deviation RDW Coeff of Toni Plt Count MPV Immature Gran % (Auto) Neut % (Auto) Lymph % (Auto) Grand % (Auto) Eos % (Auto) Baso % (Auto) Neut # (Auto) Lymph # (Auto) Grand # (Auto) Eos # (Auto) Baso # (Auto) Immature Gran # (Auto) Sodium Potassium Chloride Carbon Dioxide Anion Gap BUN Creatinine Est Cr Clr Drug Dosing Est GFR ( Amer) Est GFR (Non-Af Amer) BUN/Creatinine Ratio Glucose Calcium Total Bilirubin AST ALT Alkaline Phosphatase Total Protein Albumin Globulin Albumin/Globulin Ratio TSH Urine Color Urine Appearance Urine pH Ur Specific [place] Urine Protein Urine Glucose (UA) Urine Ketones Urine Blood Urine Nitrite Urine Bilirubin Urine Urobilinogen Ur Leukocyte Esterase Urine Test Salicylates Urine Opiates Screen Ur Methadone, Qual Acetaminophen Urine Barbiturates Ur Phencyclidine (PCP) U Amphetamin/Meth Scrn Urine MDEA MDMA (Ecstasy) Screen MDMA Urine MDMA U Benzodiazepines Scrn Ur Cocaine Metabolite U Marijuana (THC) Screen Ethyl Alcohol mg/dL < 10.0 SARS-CoV-2, RNA, NAAT Current Inpatient Medications Current Inpatient Medications: Current Inpatient Medications Acetaminophen (Acetaminophen 325 Mg Tab) 650 mg PO Q4H PRN PRN Reason: Headache or Minor Fever Stop: 06/27/22 00:29 Al Hydrox/Mg Hydrox/Simethicone (Aluminum/Magnesium Susp 30 Ml Udc) 30 ml PO Q4H PRN PRN Reason: GI Upset Stop: 06/27/22 00:29 Bismuth Subsalicylate (Bismuth Subsalicylate Liqd 236 Ml) 15 ml PO PRN PRN PRN Reason: Loose Stool Stop: 06/27/22 00:29 Hydroxyzine HCl (Hydroxyzine Hcl 25 Mg Tab) 25 mg PO Q4H PRN PRN Reason: Anxiety Stop: 06/27/22 00:29 Hydroxyzine HCl (Hydroxyzine Hcl 25 Mg Tab) 50 mg PO HSZ PRN PRN Reason: Insomnia Stop: 06/27/22 00:29 Magnesium Hydroxide (Magnesium Hydroxide Susp 30 Ml Udc) 30 ml PO DAILY PRN PRN Reason: Constipation Stop: 06/27/22 00:29 Sodium Chloride (Sodium Chloride 0.65% Na Soln 45 Ml (Foster)) 1 - 2 sprays NA PRN PRN PRN Reason: Nasal Dryness/Congestion Stop: 06/27/22 00:29
[2022-05-28 12:38] LABS: Prothrombin Time 30.3 Seconds (9.0-12.0)
[2022-05-28] MEDS: WARFARIN SOD 2.5 MG TAB PO SCH (15:34)
[2022-05-28] MEDS ORDERED: FAMOTIDINE 20 MG TAB PO PRN (16:11)
[2022-05-28] MEDS ORDERED: DICYCLOMINE HCL 10 MG CAP PO PRN (16:11)
[2022-05-28] MEDS: PROPRANOLOL HCL 20 MG TAB PO SCH (21:51)
[2022-05-28] MEDS: levETIRAcetam 500 MG TAB PO SCH (21:51)
[2022-05-28] MEDS: GABAPENTIN 600 MG TAB PO SCH (21:51)
[2022-05-28] MEDS: traZODone HCL 50 MG TAB PO SCH (21:52)
[2022-05-28] MEDS: PRAZOSIN HCL 1 MG CAP PO SCH (21:52)
--- NOTE | 2022-05-29 08:44 | Psychiatric Progress Note ---
Date of Service May 29, 2022 Impression / Recommendations Impression The patient is a 21 year old with a history of BPD, PTSD and MDD with psychotic features with multiple recent psychiatric hospitalizations, this is the fifth since mid-March, for SI with plan of overdosing and continuing decompensation in the outpatient setting, no longer working. Diagnostically differential includes BPD with worsening SI though unclear what potential interpersonal stressors may be contributing to this versus restrictive eating disorder versus secondary gain of getting disability versus MDD. The patient is deemed unstable and requires psychiatric hospitalization for diagnostic clarification, safety and stabilization, medication management and development of further coping skills. MNPR due to high community prevalence of COVID and asplenic with higher infection risk 05/29/22: Remains severely depressed and refusing all po intake except some soda and refusing all of her medications including coumadin which is important for her hx of superior mesenteric venous thrombus. (1) Borderline personality disorder: (2) Depression with suicidal ideation: (3) Eating disorder, unspecified: (4) Acquired asplenia: (5) PTSD (post-traumatic stress disorder): (6) Asplenia: Plan 05/29/22: Continue to encourage adherence with medications and po intake. Continue efforts for labwork to check INR. External med rec also notable for venlafaxine 150mg BID. Given maximum dose of sertraline and her ongoing refusal for medications will avoid restarting this given serotonin syndrome risk with concurrent sertraline and now through most of the withdrawal symptoms period/refusing all medications. 05/28/22: The patient was admitted to the [facility] ([facility]) on q15 min checks (behavioral with suicide precautions) for safety. The patient will participate in group, recreational, and milieu therapies and will be offered additional individual and family sessions as clinically appropriate. -Continue sertraline 200mg qd, trazodone 150mg qhs, prazosin 1mg qhs, gabapentin 600mg BID -Taper Keppra as concern this is adding to irritability, will reduce to 500mg BID with plan for taper to discontinuation -Continue to monitor and encourage po intake -No available records from the [facility] as discharge paperwork has not yet been completed from her stay Inventory Assets Strengths: supportive relationships, outpatient providers, had period of outpatient stability in the past, manages medical issues Needs: safety and stabilization, medication adjustment, additional coping skills, increased outpatient services Suicide Risk Level Suicide Risk Level: High-Moderate (q15 min suicide checks) Suicide Risk Level Comments: High-Moderate due to severe depression with SI with plan prior to admission and now refusing medications and food but has maintained safe behaviors and able to safety contract and agrees to let nursing/staff know should she develop specific plan, intent or feel unable to remain safe. Risk Factors Assessment : Yes Do You Have Access To A Gun?: No Health Problems: Yes Mental Health Diagnoses: Yes Substance Use Disorders: No Previous Attempt: Yes Previous Psychiatric Hospitalization: Yes Hopelessness: Yes Protective Factors Assessment : Yes Employed: No Stable Relationships: Yes Supportive Family: Yes Interval History Identifying Information MAKENZIE COSTA is a 21-year-old F who currently lives in [place] with her and in-laws, has a history of MDD with psychotic features, PTSD, BPD, Brock brock disease, superior mesenteric venous thrombus, asplenia and was admitted on 05/27/22 22:55 on a 302 involuntary commitment for SI with plan of overdosing on medications. Chief Complaint "I'm not taking any meds because I want to ". Review of Systems Sleep Information Total Hours of Sleep: 6 Sleep Comments: pt on q-15 minute checks Meal Information Percent Meal Consumed - Breakfast: 0 Percent Meal Consumed - Lunch: 0 Percent Meal Consumed - Dinner: 0 Subjective Subjective Patient was seen & assessed and interval progress reviewed with treatment team nursing and social work. Refused her medication last night and refused her blood draw for INR this morning and subsequently refused her medications all day including her coudamin and repeat attempt at labdraw this afternoon. She also refused to meet with her case repairer who came this morning. She laid in her bed all day and refused to eat or interact with anyone. Was observed to walk with stable gait and quickly when asked to move from the quiet room to her room. Otherwise isolative to bed all day. Engages minimally with me, won't make eye contact only brief responses to questions. States her mood is "I don't know" and states she will continue to refuse labwork and medications because she wants to . States she will continue to refuse food and drinks and asked why states "I don't know". Tells me she did have some gingerale today. Physical Exam Psychiatric Orientation: alert and oriented x 3 Apperance: + disheveled Eye Contact: + poor eye contact Motor Behavior: no abnormal motor movements Speech: normal rate/rhythm/volume of speech Affect: + flat affect Mood: + depressed mood and + irritable mood Thought Process: goal directed thought process Thought Content: reality based without delusions Suicidal Thoughts: denies suicidal thoughts; + reports suicidal plan (starve herself, refuse her medications) and + reports suicidal intent (is refusing to eat or take medications) Homicidal Thoughts: denies homicidal thoughts Hallucinations: no auditory hallucinations and no visual hallucinations Cognition: recent memory grossly intact, remote memory grossly intact, attention grossly intact and language grossly intact Estimated Intelligence: consistent with education level Insight: + limited insight Judgement: + severely impaired judgement Vital Signs (Past 24 Hours) Last Vital Signs Temp 36.7 C 05/28/22 20:31 Pulse 72 05/27/22 18:17 Resp 18 05/28/22 00:16 BP 119/77 05/28/22 00:16 Pulse Ox 95 05/27/22 18:17 O2 Del Method 05/27/22 18:17 Results & Data ([facility]) Laboratory Results Laboratory Results - last 24 hr 05/28/22 11:54 PT 30.3 H INR 3.0 H Current Inpatient Medications Current Inpatient Medications: Current Inpatient Medications Acetaminophen (Acetaminophen 325 Mg Tab) 650 mg PO Q4H PRN PRN Reason: Headache or Minor Fever Stop: 06/27/22 00:29 Al Hydrox/Mg Hydrox/Simethicone (Aluminum/Magnesium Susp 30 Ml Udc) 30 ml PO Q4H PRN PRN Reason: GI Upset Stop: 06/27/22 00:29 Dicyclomine HCl (Dicyclomine Hcl 10 Mg Cap) 10 mg PO QID PRN PRN Reason: ABD PAIN Stop: 06/27/22 16:10 Famotidine (Famotidine 20 Mg Tab) 20 mg PO BID PRN PRN Reason: Acid Reflux Stop: 06/27/22 16:10 Gabapentin (Gabapentin 600 Mg Tab) 600 mg PO TID RENU Stop: 06/27/22 20:59 Last Admin: 05/28/22 21:51 Dose: Not Given Hydroxyzine HCl (Hydroxyzine Hcl 25 Mg Tab) 25 mg PO Q4H PRN PRN Reason: Anxiety Stop: 06/27/22 00:29 Hydroxyzine HCl (Hydroxyzine Hcl 25 Mg Tab) 50 mg PO HSZ PRN PRN Reason: Insomnia Stop: 06/27/22 00:29 Levetiracetam (Levetiracetam 500 Mg Tab) 500 mg PO BID RENU Stop: 06/27/22 20:59 Last Admin: 05/28/22 21:51 Dose: Not Given Magnesium Hydroxide (Magnesium Hydroxide Susp 30 Ml Udc) 30 ml PO DAILY PRN PRN Reason: Constipation Stop: 06/27/22 00:29 Prazosin HCl (Prazosin Hcl 1 Mg Cap) 1 mg PO HS RENU Stop: 06/27/22 21:59 Last Admin: 05/28/22 21:52 Dose: Not Given Propranolol HCl (Propranolol Hcl 20 Mg Tab) 20 mg PO BID RENU Stop: 06/27/22 20:59 Last Admin: 05/28/22 21:51 Dose: Not Given Sertraline HCl (Sertraline Hcl 100 Mg Tablet) 200 mg PO DAILY RENU Stop: 06/28/22 08:59 Sodium Chloride (Sodium Chloride 0.65% Na Soln 45 Ml ([place])) 1 - 2 sprays NA PRN PRN PRN Reason: Nasal Dryness/Congestion Stop: 06/27/22 00:29 Trazodone HCl (Trazodone Hcl 50 Mg Tab) 150 mg PO HS RENU Stop: 06/27/22 21:59 Last Admin: 05/28/22 21:52 Dose: Not Given Warfarin Sodium (Warfarin Sod 2.5 Mg Tab) 2.5 mg PO [id number] RENU Stop: 06/27/22 15:59 Last Admin: 05/28/22 15:34 Dose: 2.5 mg Warfarin Sodium (Warfarin Sod 5 Mg Tab) 5 mg PO [id number] RENU Stop: 06/28/22 15:59 Mental Health & Subst Abuse Tx Psychiatrist Name of Psychiatrist: [facility] Psychiatrist's Date of Appointment with Psychiatrist: 06/06/22 Time of Appointment with Psychiatrist: 2:20PM Psychiatric Appointment Comment: [address] [place] [address] Therapist Name of Therapist: Jazzmine Galvan Therapist's Date of Therapist Appointment: 06/14/22 Time of Therapist Appointment: 9 AM Therapy Appointment Comment: [address] [facility], [address], [place] [address] Graphic Technician Name of Graphic Technician: Andreea Soares Phone Number for Graphic Technician: [phone] Case Management Appointment Comment: Please resume your normal schedule. Post Discharge Appointments Primary Care Physician Name Of Family Doctor: Bubba Chaparro (appointment is with Dr. Kelvin Dhaliwal) Primary Care Date of Appointment with PCP: 06/06/22 Time of Appointment with PCP: 10:45 AM Provider Appointment Comment: [address] [facility], [place] [address] Contact Information Discharge Discharge Address: [address] [place] [id number]
[2022-05-29] MEDS: GABAPENTIN 600 MG TAB PO SCH ×3 (08:52→21:01)
[2022-05-29] MEDS: PROPRANOLOL HCL 20 MG TAB PO SCH ×2 (08:52→21:01)
[2022-05-29] MEDS: levETIRAcetam 500 MG TAB PO SCH ×2 (08:52→21:01)
[2022-05-29] MEDS: SERTRALINE HCL 100 MG TABLET PO SCH (08:52)
[2022-05-29] MEDS: WARFARIN SOD 5 MG TAB PO SCH (16:09)
[2022-05-29] MEDS: traZODone HCL 50 MG TAB PO SCH (21:01)
[2022-05-29] MEDS: PRAZOSIN HCL 1 MG CAP PO SCH (21:01)
[2022-05-30] MEDS: GABAPENTIN 600 MG TAB PO SCH ×3 (09:18→21:05)
[2022-05-30] MEDS: levETIRAcetam 500 MG TAB PO SCH ×2 (09:18→21:05)
[2022-05-30] MEDS: SERTRALINE HCL 100 MG TABLET PO SCH (09:19)
[2022-05-30] MEDS: PROPRANOLOL HCL 20 MG TAB PO SCH ×2 (09:19→21:05)
--- NOTE | 2022-05-30 14:41 | Psychiatric Progress Note ---
Date of Service May 30, 2022 Impression / Recommendations Impression The patient is a 21 year old with a history of BPD, PTSD and MDD with psychotic features with multiple recent psychiatric hospitalizations, this is the fifth since mid-March, for SI with plan of overdosing and continuing decompensation in the outpatient setting, no longer working. Diagnostically differential includes BPD with worsening SI though unclear what potential interpersonal stressors may be contributing to this versus restrictive eating disorder versus secondary gain of getting disability versus MDD. The patient is deemed unstable and requires psychiatric hospitalization for diagnostic clarification, safety and stabilization, medication management and development of further coping skills. MNPR due to high community prevalence of COVID and asplenic with higher infection risk 05/30/22: Remains severely depressed and refusing all po intake except some soda and refusing most of her medications except one dose of gabapentin today. Reviewed risks and medication options regarding her superior mesenteric venous thrombus with [facility] hospitalist consult provider. She recommended alternative formulations available for treating the thrombus would be Lovenox 70mg q12h or Eliquis 5mg BID. Prior to admission she was being prescribed warfarin 7.5mg MWF and 5mg SSTTh. I completed 303 paperwork, hearing scheduled for tomorrow (1) Borderline personality disorder: (2) Depression with suicidal ideation: (3) Eating disorder, unspecified: (4) Acquired asplenia: (5) PTSD (post-traumatic stress disorder): (6) Asplenia: Plan 05/30/22: Continue to encourage po intake and medications. Pursuing 303 commitment and likely medication over objection if she continues to refuse warfarin. 05/29/22: Continue to encourage adherence with medications and po intake. Continue efforts for labwork to check INR. External med rec also notable for venlafaxine 150mg BID. Given maximum dose of sertraline and her ongoing refusal for medications will avoid restarting this given serotonin syndrome risk with concurrent sertraline and now through most of the withdrawal symptoms period/refusing all medications. 05/28/22: The patient was admitted to the [facility] ([facility] mental health unit) on q15 min checks (behavioral with suicide precautions) for safety. The patient will participate in group, recreational, and milieu therapies and will be offered additional individual and family sessions as clinically appropriate. -Continue sertraline 200mg qd, trazodone 150mg qhs, prazosin 1mg qhs, gabapentin 600mg BID -Taper Keppra as concern this is adding to irritability, will reduce to 500mg BID with plan for taper to discontinuation -Continue to monitor and encourage po intake -No available records from the [facility] as discharge paperwork has not yet been completed from her stay Inventory Assets Strengths: supportive relationships, outpatient providers, had period of outpatient stability in the past, manages medical issues Needs: safety and stabilization, medication adjustment, additional coping skills, increased outpatient services Suicide Risk Level Suicide Risk Level: High-Moderate (q15 min suicide checks) Suicide Risk Level Comments: High-Moderate due to severe depression with SI with plan prior to admission and now refusing medications and food but has maintained safe behaviors and able to safety contract and agrees to let nursing/staff know should she develop specific plan, intent or feel unable to remain safe. Risk Factors Assessment : Yes Do You Have Access To A Gun?: No Health Problems: Yes Mental Health Diagnoses: Yes Substance Use Disorders: No Previous Attempt: Yes Previous Psychiatric Hospitalization: Yes Hopelessness: Yes Protective Factors Assessment : Yes Employed: No Stable Relationships: Yes Supportive Family: Yes Interval History Identifying Information MAKENZIE COSTA is a 21-year-old F who currently lives in [place] with her and in-laws, has a history of MDD with psychotic features, PTSD, BPD, Brock brock disease, superior mesenteric venous thrombus, asplenia and was admitted on 05/27/22 22:55 on a 302 involuntary commitment for SI with plan of overdosing on medications. Chief Complaint "I still want to ". Review of Systems Sleep Information Total Hours of Sleep: 7.5 Sleep Comments: pt on q-15 minute checks Meal Information Percent Meal Consumed - Breakfast: 0 Percent Meal Consumed - Lunch: 25 Percent Meal Consumed - Dinner: 0 Subjective Subjective Patient was seen & assessed and interval progress reviewed with treatment team nursing and social work. Continues to refuse meals and all medications overnight and this morning. I completely 303 paperwork and informed her of this. Later in the day she attended groups and accepted a dose of her gabapentin. Continues to refuse labwork. Continues to endorse depression and SI with thoughts of starving herself. Understands not taking her coumadin can lead to blood clots, still not interested in taking it or other medication for blood clot prevention like lovenox. Denies any dizziness/lightheadedness or abdominal pain. Physical Exam Psychiatric Orientation: alert and oriented x 3 Apperance: + disheveled Eye Contact: + poor eye contact Motor Behavior: no abnormal motor movements Speech: normal rate/rhythm/volume of speech Affect: + flat affect Mood: + depressed mood and + irritable mood Thought Process: goal directed thought process Thought Content: reality based without delusions Suicidal Thoughts: denies suicidal thoughts; + reports suicidal plan (starve herself, refuse her medications) and + reports suicidal intent (is refusing to eat or take medications) Homicidal Thoughts: denies homicidal thoughts Hallucinations: no auditory hallucinations and no visual hallucinations Cognition: recent memory grossly intact, remote memory grossly intact, attention grossly intact and language grossly intact Estimated Intelligence: consistent with education level Insight: + limited insight Judgement: + severely impaired judgement Vital Signs (Past 24 Hours) Last Vital Signs Temp 36.6 C 05/30/22 06:14 Pulse 97 H 05/30/22 06:16 Resp 16 05/30/22 06:14 BP 121/85 05/30/22 06:16 Pulse Ox 95 05/27/22 18:17 O2 Del Method 05/27/22 18:17 Results & Data ([facility]) Current Inpatient Medications Current Inpatient Medications: Current Inpatient Medications Acetaminophen (Acetaminophen 325 Mg Tab) 650 mg PO Q4H PRN PRN Reason: Headache or Minor Fever Stop: 06/27/22 00:29 Al Hydrox/Mg Hydrox/Simethicone (Aluminum/Magnesium Susp 30 Ml Udc) 30 ml PO Q4H PRN PRN Reason: GI Upset Stop: 06/27/22 00:29 Dicyclomine HCl (Dicyclomine Hcl 10 Mg Cap) 10 mg PO QID PRN PRN Reason: ABD PAIN Stop: 06/27/22 16:10 Famotidine (Famotidine 20 Mg Tab) 20 mg PO BID PRN PRN Reason: Acid Reflux Stop: 06/27/22 16:10 Gabapentin (Gabapentin 600 Mg Tab) 600 mg PO TID RENU Stop: 06/27/22 20:59 Last Admin: 05/30/22 14:23 Dose: 600 mg Hydroxyzine HCl (Hydroxyzine Hcl 25 Mg Tab) 25 mg PO Q4H PRN PRN Reason: Anxiety Stop: 06/27/22 00:29 Hydroxyzine HCl (Hydroxyzine Hcl 25 Mg Tab) 50 mg PO HSZ PRN PRN Reason: Insomnia Stop: 06/27/22 00:29 Levetiracetam (Levetiracetam 500 Mg Tab) 500 mg PO BID [facility] Stop: 06/27/22 20:59 Last Admin: 05/30/22 09:18 Dose: Not Given Magnesium Hydroxide (Magnesium Hydroxide Susp 30 Ml Udc) 30 ml PO DAILY PRN PRN Reason: Constipation Stop: 06/27/22 00:29 Prazosin HCl (Prazosin Hcl 1 Mg Cap) 1 mg PO HS [facility] Stop: 06/27/22 21:59 Last Admin: 05/29/22 21:01 Dose: Not Given Propranolol HCl (Propranolol Hcl 20 Mg Tab) 20 mg PO BID [facility] Stop: 06/27/22 20:59 Last Admin: 05/30/22 09:19 Dose: Not Given Sertraline HCl (Sertraline Hcl 100 Mg Tablet) 200 mg PO DAILY RENU Stop: 06/28/22 08:59 Last Admin: 05/30/22 09:19 Dose: Not Given Sodium Chloride (Sodium Chloride 0.65% Na Soln 45 Ml (Agar)) 1 - 2 sprays NA PRN PRN PRN Reason: Nasal Dryness/Congestion Stop: 06/27/22 00:29 Trazodone HCl (Trazodone Hcl 50 Mg Tab) 150 mg PO [facility] Stop: 06/27/22 21:59 Last Admin: 05/29/22 21:01 Dose: Not Given Warfarin Sodium (Warfarin Sod 2.5 Mg Tab) 2.5 mg PO [id number] [facility] Stop: 06/27/22 15:59 Last Admin: 05/28/22 15:34 Dose: 2.5 mg Warfarin Sodium (Warfarin Sod 5 Mg Tab) 5 mg PO [id number] [facility] Stop: 06/28/22 15:59 Last Admin: 05/29/22 16:09 Dose: Not Given Mental Health & Subst Abuse Tx Psychiatrist Name of Psychiatrist: [employer] Psychiatrist's Date of Appointment with Psychiatrist: 06/06/22 Time of Appointment with Psychiatrist: 2:20PM Psychiatric Appointment Comment: [address] [facility], [place] [address] Therapist Name of Therapist: Jazzmine Galvan Therapist's Date of Therapist Appointment: 06/14/22 Time of Therapist Appointment: 9 AM Therapy Appointment Comment: [address] [facility], [address], [place] [address] Manager Membership Name of Manager Membership: Andreea Soares Phone Number for Manager Membership: [phone] Case Management Appointment Comment: Please resume your normal schedule. Post Discharge Appointments Primary Care Physician Name Of Family Doctor: Bubba Chaparro (appointment is with Dr. Kelvin Dhaliwal) Primary Care Date of Appointment with PCP: 06/06/22 Time of Appointment with PCP: 10:45 AM Provider Appointment Comment: [address], [place] [address] Contact Information Discharge Discharge Address: [address] [place] [id number]
[2022-05-30] MEDS: WARFARIN SOD 2.5 MG TAB PO SCH (16:00)
[2022-05-30] MEDS: hydrOXYzine HCl 25 MG TAB PO PRN (17:35)
[2022-05-30] MEDS: PRAZOSIN HCL 1 MG CAP PO SCH (21:05)
[2022-05-30] MEDS: traZODone HCL 50 MG TAB PO SCH (21:05)
[2022-05-31] MEDS: PROPRANOLOL HCL 20 MG TAB PO SCH ×2 (08:54→21:54)
[2022-05-31] MEDS: levETIRAcetam 500 MG TAB PO SCH (08:54)
[2022-05-31] MEDS: SERTRALINE HCL 100 MG TABLET PO SCH (08:54)
[2022-05-31] MEDS: GABAPENTIN 600 MG TAB PO SCH ×3 (08:54→21:53)
--- NOTE | 2022-05-31 10:16 | Psychiatric Progress Note ---
Date of Service May 31, 2022 Impression / Recommendations Impression The patient is a 21 year old with a history of BPD, PTSD and MDD with psychotic features with multiple recent psychiatric hospitalizations, this is the fifth since mid-March, for SI with plan of overdosing and continuing decompensation in the outpatient setting, no longer working. Diagnostically differential includes BPD with worsening SI though unclear what potential interpersonal stressors may be contributing to this versus restrictive eating disorder versus secondary gain of getting disability versus MDD. The patient is deemed unstable and requires psychiatric hospitalization for diagnostic clarification, safety and stabilization, medication management and development of further coping skills. MNPR due to high community prevalence of COVID and asplenic with higher infection risk 05/31/22: 303 hearing held and 303 commitment granted. Starting to eat and take medications again. More bright and interaction today but still reporting significant depression and SI. Suspect BPD component to chronic SI and significant mood lability from day to day. Suspect the improvement in nutritional intake is also helping with her level of engagement. I spent 15 minutes participating in her 303 hearing in addition to meeting with her individually in the afternoon. (1) Borderline personality disorder: (2) Depression with suicidal ideation: (3) Eating disorder, unspecified: (4) Acquired asplenia: (5) PTSD (post-traumatic stress disorder): (6) Asplenia: Plan 05/31/22: 303 commitment granted. Decrease Keppra to 250mg BID and then discontinue. Consider taper of gabapentin but fo now helping with anxiety. 05/30/22: Continue to encourage po intake and medications. Pursuing 303 commitment and likely medication over objection if she continues to refuse warfarin. 05/29/22: Continue to encourage adherence with medications and po intake. Continue efforts for labwork to check INR. External med rec also notable for venlafaxine 150mg BID. Given maximum dose of sertraline and her ongoing refusal for medications will avoid restarting this given serotonin syndrome risk with concurrent sertraline and now through most of the withdrawal symptoms perio d/refusing all medications. 05/28/22: The patient was admitted to the [facility] ([facility] mental health unit) on q15 min checks (behavioral with suicide precautions) for safety. The patient will participate in group, recreational, and milieu therapies and will be offered additional individual and family sessions as clinically appropriate. -Continue sertraline 200mg qd, trazodone 150mg qhs, prazosin 1mg qhs, gabapentin 600mg BID -Taper Keppra as concern this is adding to irritability, will reduce to 500mg BID with plan for taper to discontinuation -Continue to monitor and encourage po intake -No available records from the [facility] as discharge paperwork has not yet been completed from her stay Inventory Assets Strengths: supportive relationships, outpatient providers, had period of outpatient stability in the past, manages medical issues Needs: safety and stabilization, medication adjustment, additional coping skills, increased outpatient services Suicide Risk Level Suicide Risk Level: High-Moderate (q15 min suicide checks) Suicide Risk Level Comments: High-Moderate due to severe depression with SI with plan prior to admission and now refusing medications and food but has maintained safe behaviors and able to safety contract and agrees to let nursing/staff know should she develop specific plan, intent or feel unable to remain safe. Risk Factors Assessment : Yes Do You Have Access To A Gun?: No Health Problems: Yes Mental Health Diagnoses: Yes Substance Use Disorders: No Previous Attempt: Yes Previous Psychiatric Hospitalization: Yes Hopelessness: Yes Protective Factors Assessment : Yes Employed: No Stable Relationships: Yes Supportive Family: Yes Interval History Identifying Information MAKENZIE COSTA is a 21-year-old F who currently lives in [place] with her and in-laws, has a history of MDD with psychotic features, PTSD, BPD, Brock brock disease, superior mesenteric venous thrombus, asplenia and was admitted on 05/27/22 22:55 on a 302 involuntary commitment for SI with plan of overdosing on medications. Chief Complaint "I'm trying to block out the negative thinking". Review of Systems Sleep Information Total Hours of Sleep: 8.25 Sleep Comments: pt on q-15 minute checks Meal Information Percent Meal Consumed - Breakfast: 0 Percent Meal Consumed - Lunch: 25 Percent Meal Consumed - Dinner: 75 Subjective Subjective Patient was seen & assessed and interval progress reviewed with treatment team nursing and social work. She participated in 303 hearing, was not in opposition to commitment. Continues to feel depressed and have SI but feeling able to block out SI a little more today and ate dinner last night and some meals today and ate a cookie while we talked. Reviewed her medications, she remains in agreement with tapering Keppra. Discussed that she struggles with panic attacks and feels that Vistaril doesn't work. Took her medications last night, and today and allowed mid-day blood draw. Physical Exam Psychiatric Orientation: alert and oriented x 3 Apperance: appropriately dressed and + disheveled Eye Contact: good eye contact Motor Behavior: no abnormal motor movements Speech: normal rate/rhythm/volume of speech Affect: euthymic affect and mood congruent with affect Mood: + depressed mood and + anxious mood Thought Process: goal directed thought process Thought Content: reality based without delusions Suicidal Thoughts: denies suicidal plan and denies suicidal intent; + reports suicidal thoughts Homicidal Thoughts: denies homicidal thoughts Hallucinations: no auditory hallucinations and no visual hallucinations Cognition: recent memory grossly intact, remote memory grossly intact, attention grossly intact and language grossly intact Estimated Intelligence: consistent with education level Insight: + limited insight Judgement: + impaired judgement Vital Signs (Past 24 Hours) Last Vital Signs Temp 36.7 C 05/31/22 06:00 Pulse 106 H 05/31/22 06:10 Resp 18 05/31/22 06:00 BP 106/73 05/31/22 06:10 Pulse Ox 97 05/30/22 21:00 O2 Del Method 05/30/22 21:00 Results & Data ([facility]) Current Inpatient Medications Current Inpatient Medications: Current Inpatient Medications Acetaminophen (Acetaminophen 325 Mg Tab) 650 mg PO Q4H PRN PRN Reason: Headache or Minor Fever Stop: 06/27/22 00:29 Al Hydrox/Mg Hydrox/Simethicone (Aluminum/Magnesium Susp 30 Ml Udc) 30 ml PO Q4H PRN PRN Reason: GI Upset Stop: 06/27/22 00:29 Dicyclomine HCl (Dicyclomine Hcl 10 Mg Cap) 10 mg PO QID PRN PRN Reason: ABD PAIN Stop: 06/27/22 16:10 Famotidine (Famotidine 20 Mg Tab) 20 mg PO BID PRN PRN Reason: Acid Reflux Stop: 06/27/22 16:10 Gabapentin (Gabapentin 600 Mg Tab) 600 mg PO TID RENU Stop: 06/27/22 20:59 Last Admin: 05/31/22 08:54 Dose: 600 mg Hydroxyzine HCl (Hydroxyzine Hcl 25 Mg Tab) 25 mg PO Q4H PRN PRN Reason: Anxiety Stop: 06/27/22 00:29 Last Admin: 05/30/22 17:35 Dose: 25 mg Hydroxyzine HCl (Hydroxyzine Hcl 25 Mg Tab) 50 mg PO HSZ PRN PRN Reason: Insomnia Stop: 06/27/22 00:29 Levetiracetam (Levetiracetam 500 Mg Tab) 500 mg PO BID [facility] Stop: 06/27/22 20:59 Last Admin: 05/31/22 08:54 Dose: 500 mg Magnesium Hydroxide (Magnesium Hydroxide Susp 30 Ml Udc) 30 ml PO DAILY PRN PRN Reason: Constipation Stop: 06/27/22 00:29 Prazosin HCl (Prazosin Hcl 1 Mg Cap) 1 mg PO HS [facility] Stop: 06/27/22 21:59 Last Admin: 05/30/22 21:05 Dose: 1 mg Propranolol HCl (Propranolol Hcl 20 Mg Tab) 20 mg PO BID [facility] Stop: 06/27/22 20:59 Last Admin: 05/31/22 08:54 Dose: 20 mg Sertraline HCl (Sertraline Hcl 100 Mg Tablet) 200 mg PO DAILY [facility] Stop: 06/28/22 08:59 Last Admin: 05/31/22 08:54 Dose: 200 mg Sodium Chloride (Sodium Chloride 0.65% Na Soln 45 Ml ([place])) 1 - 2 sprays NA PRN PRN PRN Reason: Nasal Dryness/Congestion Stop: 06/27/22 00:29 Trazodone HCl (Trazodone Hcl 50 Mg Tab) 150 mg PO HS [facility] Stop: 06/27/22 21:59 Last Admin: 05/30/22 21:05 Dose: 150 mg Warfarin Sodium (Warfarin Sod 2.5 Mg Tab) 2.5 mg PO [id number] [facility] Stop: 06/27/22 15:59 Last Admin: 05/30/22 16:00 Dose: 2.5 mg Warfarin Sodium (Warfarin Sod 5 Mg Tab) 5 mg PO [id number] [facility] Stop: 06/28/22 15:59 Last Admin: 05/29/22 16:09 Dose: Not Given Mental Health & Subst Abuse Tx Psychiatrist Name of Psychiatrist: [facility] Psychiatrist's Date of Appointment with Psychiatrist: 06/06/22 Time of Appointment with Psychiatrist: 2:20PM Psychiatric Appointment Comment: [address] [place] [address] Therapist Name of Therapist: Jazzmine Galvan Therapist's Date of Therapist Appointment: 06/14/22 Time of Therapist Appointment: 9 AM Therapy Appointment Comment: [address], [address], [place] [address] Air Box Tester Name of Air Box Tester: Andreea Soares Phone Number for Air Box Tester: [phone] Case Management Appointment Comment: Please resume your normal schedule. Post Discharge Appointments Primary Care Physician Name Of Family Doctor: Bubba Chaparro (appointment is with Dr. Kelvin Dhaliwal) Primary Care Date of Appointment with PCP: 06/06/22 Time of Appointment with PCP: 10:45 AM Provider Appointment Comment: [address], [place] [address] Contact Information Discharge Discharge Address: [address] [place] [id number]
[2022-05-31 13:05] LABS: INR 2.2 (0.9-1.1); Prothrombin Time 22.6 Seconds (9.0-12.0)
[2022-05-31 14:40] LABS: MDA negative; MDEA negative; MDMA (Ecstasy) Urine, Confirm negative
[2022-05-31] MEDS: WARFARIN SOD 5 MG TAB PO SCH (15:59)
[2022-05-31] MEDS: ACETAMINOPHEN 325 MG TAB PO PRN (17:02)
[2022-05-31] MEDS ORDERED: COUGH DROP (SUGAR FREE) LOZ 24 LOZ/1 BOX BUCCAL ONE (17:16)
[2022-05-31] MEDS: levETIRAcetam 250 MG TAB PO SCH (21:54)
[2022-05-31] MEDS: PRAZOSIN HCL 1 MG CAP PO SCH (21:54)
[2022-05-31] MEDS: traZODone HCL 50 MG TAB PO SCH (21:55)
[2022-06-01 08:01] LABS: INR 1.9 (0.9-1.1); Prothrombin Time 19.8 Seconds (9.0-12.0)
[2022-06-01] MEDS: levETIRAcetam 250 MG TAB PO SCH (08:06)
[2022-06-01] MEDS: GABAPENTIN 600 MG TAB PO SCH ×3 (08:06→21:46)
[2022-06-01] MEDS: SERTRALINE HCL 100 MG TABLET PO SCH (08:06)
[2022-06-01] MEDS: PROPRANOLOL HCL 20 MG TAB PO SCH ×3 (08:08→21:47)
[2022-06-01] MEDS: hydrOXYzine HCl 25 MG TAB PO PRN (08:09)
[2022-06-01] MEDS: WARFARIN SOD 2.5 MG TAB PO SCH (15:51)
--- NOTE | 2022-06-01 16:48 | Psychiatric Progress Note ---
Date of Service June 01, 2022 Impression / Recommendations Impression The patient is a 21 year old with a history of BPD, PTSD and MDD with psychotic features with multiple recent psychiatric hospitalizations, this is the fifth since mid-March, for SI with plan of overdosing and continuing decompensation in the outpatient setting, no longer working. Diagnostically differential includes BPD with worsening SI though unclear what potential interpersonal stressors may be contributing to this versus restrictive eating disorder versus secondary gain of getting disability versus MDD. The patient is deemed unstable and requires psychiatric hospitalization for diagnostic clarification, safety and stabilization, medication management and development of further coping skills. MNPR due to high community prevalence of COVID and asplenic with higher infection risk 06/01/22: Significantly more depressed again today isolative to her room with intensified suicidal ideation. Again refusing her Coumadin this afternoon. We will consult dietitian given history of varying restrictive eating versus binge eating is concerns this may be contributing to some of her challenges with emotional regulation/self esteem/self worth and may be one of the factors prompting periods of SI. Denies medication side effects and is tolerating the reinitiation well when adherent with these. This point I feel that if Makenzie continues to refuse her medications that she meets criteria for medication over objection given her severe depression with suicidal ideation and stated plan of potentially killing herself by refusing medication. Given her moyamoya disease and superior mesenteric venous thrombosis she remains at very high risk for or serious disability within the next 30 days if she is not adherent with her medications particularly her blood thinner. Dr. Mayo is coming on service tomorrow and can weigh in regarding a second opinion for medication over objection. If she agrees I would support her decision regarding starting an alternative medication to treat her thrombus, I had previously spoken with [facility] hospitalist service who provided recommendations for this per below on 05/30/22, as well as medications to treat her severe depression with suicidal ideation particularly as she has been intermittently refusing to eat or drink which also places her at risk of or serious disability within the next 30 days without treatment. (1) Borderline personality disorder: (2) Depression with suicidal ideation: (3) Eating disorder, unspecified: (4) Acquired asplenia: (5) PTSD (post-traumatic stress disorder): (6) Asplenia: Plan 06/01/22: Continue current medication and tx plan. If she continues to refuse coumadin consider medication over objection. Will place retail sales associate bilingual consult given history of unspecified eating disorder which seems to impact her mood significantly. 05/31/22: 303 commitment granted. Decrease Keppra to 250mg BID and then discontinue. Consider taper of gabapentin but fo now helping with anxiety. 05/30/22: Continue to encourage po intake and medications. Pursuing 303 commitment and likely medication over objection if she continues to refuse warfarin. Per discussion with [facility] hospitalist consult provider alternative formulations available for treating the thrombus would be Lovenox 70mg q12h or Eliquis 5mg BID. Prior to admission she was being prescribed warfarin 7.5mg MWF and 5mg SSTTh. 05/29/22: Continue to encourage adherence with medications and po intake. Continue efforts for labwork to check INR. External med rec also notable for venlafaxine 150mg BID. Given maximum dose of sertraline and her ongoing refusal for medications will avoid restarting this given serotonin syndrome risk with concurrent sertraline and now through most of the withdrawal symptoms period/refusing all medications. 05/28/22: The patient was admitted to the [facility] ([facility] mental health unit) on q15 min checks (behavioral with suicide precautions) for safety. The patient will participate in group, recreational, and milieu therapies and will be offered additional individual and family sessions as clinically appropriate. -Continue sertraline 200mg qd, trazodone 150mg qhs, prazosin 1mg qhs, gabapentin 600mg BID -Taper Keppra as concern this is adding to irritability, will reduce to 500mg BID with plan for taper to discontinuation -Continue to monitor and encourage po intake -No available records from the [facility] as discharge paperwork has not yet been completed from her stay Inventory Assets Strengths: supportive relationships, outpatient providers, had period of outpatient stability in the past, manages medical issues Needs: safety and stabilization, medication adjustment, additional coping skills, increased outpatient services Suicide Risk Level Suicide Risk Level: High-Moderate (q15 min suicide checks) Suicide Risk Level Comments: High-Moderate due to severe depression with SI with plan prior to admission and now refusing medications and food but has maintained safe behaviors and able to safety contract and agrees to let nursing/staff know should she develop specific plan, intent or feel unable to remain safe. Risk Factors Assessment : Yes Do You Have Access To A Gun?: No Health Problems: Yes Mental Health Diagnoses: Yes Substance Use Disorders: No Previous Attempt: Yes Previous Psychiatric Hospitalization: Yes Hopelessness: Yes Protective Factors Assessment : Yes Employed: No Stable Relationships: Yes Supportive Family: Yes Interval History Identifying Information MAKENZIE COSTA is a 21-year-old F who currently lives in [place] with her and in-laws, has a history of MDD with psychotic features, PTSD, BPD, Brock brock disease, superior mesenteric venous thrombus, asplenia and was admitted on 05/27/22 22:55 on a 302 involuntary commitment for SI with plan of overdosing on medications. Chief Complaint "The suicidal thoughts are worse today". Review of Systems Sleep Information Total Hours of Sleep: 7.75 Sleep Comments: pt on q-15 minute checks Meal Information Percent Meal Consumed - Breakfast: 90 Percent Meal Consumed - Lunch: 100 Percent Meal Consumed - Dinner: 85 Subjective Subjective Patient was seen & assessed and interval progress reviewed with treatment team nursing and social work. Initially this morning had brighter affect but as the day went on became more isolative and returned to her room where she laid in bed with the lights off. She did meet with her outpatient case planner who came to visit. This afternoon tells me her mood is depressed and "I do not know". She endorses that "the suicidal thoughts are much worse today" though she remains unable to identify any precipitants for this. She refused her Coumadin dose this afternoon. Information she shared during one of the group therapy sessions apparently her biological father is dying of cancer and this may be a potential stressor recently. He is in agreement with the ongoing taper to discontinuation of Keppra today. She denies side effects from any of her her other meds though notes frustration that she has not noticed any benefit from them either since she started taking them again over the last day and a half. Physical Exam Psychiatric Orientation: alert and oriented x 3 Apperance: appropriately dressed and + disheveled Eye Contact: + poor eye contact Motor Behavior: no abnormal motor movements Speech: normal rate/rhythm/volume of speech Affect: + flat affect Mood: + depressed mood and + irritable mood Thought Process: + concrete thought process Thought Content: reality based without delusions Suicidal Thoughts: denies suicidal plan and denies suicidal intent; + reports suicidal thoughts Homicidal Thoughts: denies homicidal thoughts Hallucinations: no auditory hallucinations and no visual hallucinations Cognition: recent memory grossly intact, remote memory grossly intact, attention grossly intact and language grossly intact Insight: + limited insight Judgement: + impaired judgement Vital Signs (Past 24 Hours) Last Vital Signs Temp 36.8 C 06/01/22 06:32 Pulse 81 06/01/22 06:32 Resp 18 06/01/22 06:32 BP 92/60 L 06/01/22 06:33 Pulse Ox 97 05/31/22 20:47 O2 Del Method 05/30/22 21:00 Results & Data ([facility]) Laboratory Results Laboratory Results - last 24 hr 06/01/22 07:36 PT 19.8 H INR 1.9 H Current Inpatient Medications Current Inpatient Medications: Current Inpatient Medications Acetaminophen (Acetaminophen 325 Mg Tab) 650 mg PO Q4H PRN PRN Reason: Headache or Minor Fever Stop: 06/27/22 00:29 Last Admin: 05/31/22 17:02 Dose: 650 mg Al Hydrox/Mg Hydrox/Simethicone (Aluminum/Magnesium Susp 30 Ml Udc) 30 ml PO Q4H PRN PRN Reason: GI Upset Stop: 06/27/22 00:29 Dicyclomine HCl (Dicyclomine Hcl 10 Mg Cap) 10 mg PO QID PRN PRN Reason: ABD PAIN Stop: 06/27/22 16:10 Famotidine (Famotidine 20 Mg Tab) 20 mg PO BID PRN PRN Reason: Acid Reflux Stop: 06/27/22 16:10 Gabapentin (Gabapentin 600 Mg Tab) 600 mg PO TID [facility] Stop: 06/27/22 20:59 Last Admin: 06/01/22 14:08 Dose: Not Given Hydroxyzine HCl (Hydroxyzine Hcl 25 Mg Tab) 25 mg PO Q4H PRN PRN Reason: Anxiety Stop: 06/27/22 00:29 Last Admin: 06/01/22 08:09 Dose: 25 mg Hydroxyzine HCl (Hydroxyzine Hcl 25 Mg Tab) 50 mg PO HSZ PRN PRN Reason: Insomnia Stop: 06/27/22 00:29 Levetiracetam (Levetiracetam 250 Mg Tab) 250 mg PO BID [facility] Stop: 06/30/22 20:59 Last Admin: 06/01/22 08:06 Dose: 250 mg Magnesium Hydroxide (Magnesium Hydroxide Susp 30 Ml Udc) 30 ml PO DAILY PRN PRN Reason: Constipation Stop: 06/27/22 00:29 Prazosin HCl (Prazosin Hcl 1 Mg Cap) 1 mg PO HS [facility] Stop: 06/27/22 21:59 Last Admin: 05/31/22 21:54 Dose: 1 mg Propranolol HCl (Propranolol Hcl 20 Mg Tab) 20 mg PO BID [facility] Stop: 06/27/22 20:59 Last Admin: 06/01/22 10:05 Dose: 20 mg Sertraline HCl (Sertraline Hcl 100 Mg Tablet) 200 mg PO DAILY [facility] Stop: 06/28/22 08:59 Last Admin: 06/01/22 08:06 Dose: 200 mg Sodium Chloride (Sodium Chloride 0.65% Na Soln 45 Ml ([place])) 1 - 2 sprays NA PRN PRN PRN Reason: Nasal Dryness/Congestion Stop: 06/27/22 00:29 Trazodone HCl (Trazodone Hcl 50 Mg Tab) 150 mg PO [facility] Stop: 06/27/22 21:59 Last Admin: 05/31/22 21:55 Dose: 150 mg Warfarin Sodium (Warfarin Sod 2.5 Mg Tab) 2.5 mg PO [id number] [facility] Stop: 06/27/22 15:59 Last Admin: 06/01/22 15:51 Dose: Not Given Warfarin Sodium (Warfarin Sod 5 Mg Tab) 5 mg PO [id number]@1600 [facility] Stop: 06/28/22 15:59 Last Admin: 05/31/22 15:59 Dose: 5 mg Mental Health & Subst Abuse Tx Psychiatrist Name of Psychiatrist: [facility] Psychiatrist's Date of Appointment with Psychiatrist: 06/06/22 Time of Appointment with Psychiatrist: 2:20PM Psychiatric Appointment Comment: [address] [place] [address] Therapist Name of Therapist: Jazzmine Galvan Therapist's Date of Therapist Appointment: 06/14/22 Time of Therapist Appointment: 9 AM Therapy Appointment Comment: [address], [address], [place] [address] Buyer Planner Name of Buyer Planner: Andreea Soares Phone Number for Buyer Planner: [phone] Case Management Appointment Comment: Please resume your normal schedule. Post Discharge Appointments Primary Care Physician Name Of Family Doctor: Bubba Chaparro (appointment is with Dr. Kelvin Dhaliwal) Primary Care Date of Appointment with PCP: 06/06/22 Time of Appointment with PCP: 10:45 AM Provider Appointment Comment: [address], [place] [address] Contact Information Discharge Discharge Address: [address] [place] [address]
[2022-06-01] MEDS: traZODone HCL 50 MG TAB PO SCH (21:47)
[2022-06-01] MEDS: PRAZOSIN HCL 1 MG CAP PO SCH (21:47)
--- NOTE | 2022-06-02 09:05 | Psychiatric Progress Note ---
Date of Service June 02, 2022 Impression / Recommendations Impression The patient is a 21 year old with a history of BPD, PTSD and MDD with psychotic features with multiple recent psychiatric hospitalizations, this is the fifth since mid-March, for SI with plan of overdosing and continuing decompensation in the outpatient setting, no longer working. Diagnostically differential includes BPD with worsening SI though unclear what potential interpersonal stressors may be contributing to this versus restrictive eating disorder versus secondary gain of getting disability versus MDD. MNPR due to high community prevalence of COVID and asplenic with higher infection risk 06/02/22: acute SI last pm, more cooperative this am. (1) Depression with suicidal ideation: (2) Borderline personality disorder: (3) Eating disorder, unspecified: (4) Acquired asplenia: (5) PTSD (post-traumatic stress disorder): Plan 06/02/22: d/c 1-on-1, patient's room being moved to [facility]. Consider longer term hospital referral. Keppra has been discontinued, has Zyprexa prn (previously helpful) and Zoloft held for now in case activating. 06/01/22: Continue current medication and tx plan. If she continues to refuse coumadin consider medication over objection. Will place physics professor consult given history of unspecified eating disorder which seems to impact her mood significantly. 05/31/22: 303 commitment granted. Decrease Keppra to 250mg BID and then discontinue. Consider taper of gabapentin but fo now helping with anxiety. 05/30/22: Continue to encourage po intake and medications. Pursuing 303 commitment and likely medication over objection if she continues to refuse warfarin. Per discussion with [facility] hospitalist consult provider alternative formulations available for treating the thrombus would be Lovenox 70mg q12h or Eliquis 5mg BID. Prior to admission she was being prescribed warfarin 7.5mg MWF and 5mg SSTTh. 05/29/22: Continue to encourage adherence with medications and po intake. Continue efforts for labwork to check INR. External med rec also notable for venlafaxine 150mg BID. Given maximum dose of sertraline and her ongoing refusal for medications will avoid restarting this given serotonin syndrome risk with concurrent sertraline and now through most of the withdrawal symptoms period/refusing all medications. 05/28/22: The patient was admitted to the [facility] (locked inpatient mental health unit) on q15 min checks (behavioral with suicide precautions) for safety. The patient will participate in group, recreational, and milieu therapies and will be offered additional individual and family sessions as clinically appropriate. -Continue sertraline 200mg qd, trazodone 150mg qhs, prazosin 1mg qhs, gabapentin 600mg BID -Taper Keppra as concern this is adding to irritability, will reduce to 500mg BID with plan for taper to discontinuation -Continue to monitor and encourage po intake -No available records from the [facility] as discharge paperwork has not yet been completed from her stay Inventory Assets Strengths: supportive relationships, outpatient providers, had period of outpatient stability in the past, manages medical issues Needs: safety and stabilization, medication adjustment, additional coping skills, increased outpatient services Suicide Risk Level Suicide Risk Level: High-Moderate (q15 min suicide checks) Risk Factors Assessment : Yes Do You Have Access To A Gun?: No Health Problems: Yes Mental Health Diagnoses: Yes Substance Use Disorders: No Previous Attempt: Yes Previous Psychiatric Hospitalization: Yes Hopelessness: Yes Protective Factors Assessment : Yes Employed: No Stable Relationships: Yes Supportive Family: Yes Interval History Identifying Information MAKENZIE COSTA is a 21-year-old F who currently lives in [place] with her and in-laws, has a history of MDD with psychotic features, PTSD, BPD, Brock brock disease, superior mesenteric venous thrombus, asplenia and was admitted on 05/27/22 22:55 on a 302 involuntary commitment for SI with plan of overdosing on medications. Chief Complaint reassess need for 1-on-1. Review of Systems Sleep Information Total Hours of Sleep: 6 Meal Information Percent Meal Consumed - Breakfast: 90 Percent Meal Consumed - Lunch: 100 Percent Meal Consumed - Dinner: 0 Subjective Subjective Patient was seen & assessed and interval progress reviewed with nursing and social work. Difficult evening in that found with blanket over head with pillow case around neck. Patient would not speak to staff and was escorted to unlocked seclusion and placed on 1 on 1 and safe tray for safety. Has been more resistant to meds compared to previous stays. More cooperative this am after sleeping in, did take medications and agree to labs. Zoloft held given possible mixed sarmad picture. Keppra taper was also sped up given acute worsening. Physical Exam Psychiatric Orientation: alert and oriented x 3 Apperance: appropriately dressed Eye Contact: + poor eye contact Motor Behavior: no abnormal motor movements Speech: normal rate/rhythm/volume of speech Affect: + flat affect Mood: + depressed mood Thought Process: + concrete thought process Suicidal Thoughts: denies suicidal plan and denies suicidal intent; + reports suicidal thoughts (in that won't deny but no evidence of intent or plan, later denied) Homicidal Thoughts: denies homicidal thoughts Hallucinations: no auditory hallucinations and no visual hallucinations Cognition: attention grossly intact and language grossly intact Vital Signs (Past 24 Hours) Last Vital Signs Temp 36.8 C 06/02/22 06:37 Pulse 73 06/02/22 06:37 Resp 16 06/02/22 06:37 BP 111/78 06/02/22 06:37 Pulse Ox 97 05/31/22 20:47 O2 Del Method 05/30/22 21:00 Results & Data ([facility]) Current Inpatient Medications Current Inpatient Medications: Current Inpatient Medications Acetaminophen (Acetaminophen 325 Mg Tab) 650 mg PO Q4H PRN PRN Reason: Headache or Minor Fever Stop: 06/27/22 00:29 Last Admin: 05/31/22 17:02 Dose: 650 mg Al Hydrox/Mg Hydrox/Simethicone (Aluminum/Magnesium Susp 30 Ml Udc) 30 ml PO Q4H PRN PRN Reason: GI Upset Stop: 06/27/22 00:29 Dicyclomine HCl (Dicyclomine Hcl 10 Mg Cap) 10 mg PO QID PRN PRN Reason: ABD PAIN Stop: 06/27/22 16:10 Famotidine (Famotidine 20 Mg Tab) 20 mg PO BID PRN PRN Reason: Acid Reflux Stop: 06/27/22 16:10 Gabapentin (Gabapentin 600 Mg Tab) 600 mg PO TID RENU Stop: 06/27/22 20:59 Last Admin: 06/01/22 21:46 Dose: Not Given Hydroxyzine HCl (Hydroxyzine Hcl 25 Mg Tab) 25 mg PO Q4H PRN PRN Reason: Anxiety Stop: 06/27/22 00:29 Last Admin: 06/01/22 08:09 Dose: 25 mg Hydroxyzine HCl (Hydroxyzine Hcl 25 Mg Tab) 50 mg PO HSZ PRN PRN Reason: Insomnia Stop: 06/27/22 00:29 Magnesium Hydroxide (Magnesium Hydroxide Susp 30 Ml Udc) 30 ml PO DAILY PRN PRN Reason: Constipation Stop: 06/27/22 00:29 Olanzapine (Olanzapine 5 Mg Tablet) 5 mg PO Q6 PRN PRN Reason: Anxiety/Agitation Stop: 07/01/22 17:59 Prazosin HCl (Prazosin Hcl 1 Mg Cap) 1 mg PO HS [facility] Stop: 06/27/22 21:59 Last Admin: 06/01/22 21:47 Dose: Not Given Propranolol HCl (Propranolol Hcl 20 Mg Tab) 20 mg PO BID RENU Stop: 06/27/22 20:59 Last Admin: 06/01/22 21:47 Dose: Not Given Sertraline HCl (Sertraline Hcl 100 Mg Tablet) 200 mg PO DAILY RENU Stop: 06/28/22 08:59 Last Admin: 06/01/22 08:06 Dose: 200 mg Sodium Chloride (Sodium Chloride 0.65% Na Soln 45 Ml ([place])) 1 - 2 sprays NA PRN PRN PRN Reason: Nasal Dryness/Congestion Stop: 06/27/22 00:29 Trazodone HCl (Trazodone Hcl 50 Mg Tab) 150 mg PO HS [facility] Stop: 06/27/22 21:59 Last Admin: 06/01/22 21:47 Dose: Not Given Warfarin Sodium (Warfarin Sod 2.5 Mg Tab) 2.5 mg PO [email or web address]@1600 [facility] Stop: 06/27/22 15:59 Last Admin: 06/01/22 15:51 Dose: Not Given Warfarin Sodium (Warfarin Sod 5 Mg Tab) 5 mg PO [email or web address]@1600 [facility] Stop: 06/28/22 15:59 Last Admin: 05/31/22 15:59 Dose: 5 mg Mental Health & Subst Abuse Tx Psychiatrist Name of Psychiatrist: aXess [facility] Psychiatrist's Date of Appointment with Psychiatrist: 06/06/22 Time of Appointment with Psychiatrist: 2:20PM Psychiatric Appointment Comment: [address] [place] [address] Therapist Name of Therapist: Jazzmine Galvan Therapist's Date of Therapist Appointment: 06/14/22 Time of Therapist Appointment: 9 AM Therapy Appointment Comment: [address], [address], [place] [address] Airport Skilled Maintenance Supervisor Name of Airport Skilled Maintenance Supervisor: Andreea Soares Phone Number for Airport Skilled Maintenance Supervisor: [phone] Case Management Appointment Comment: Please resume your normal schedule. Post Discharge Appointments Primary Care Physician Name Of Family Doctor: Bubba Chaparro (appointment is with Dr. Kelvin Dhaliwal) Primary Care Date of Appointment with PCP: 06/06/22 Time of Appointment with PCP: 10:45 AM Provider Appointment Comment: [address] [facility], [place] [address] Contact Information Discharge Discharge Address: [address] [place] [id number]
[2022-06-02] MEDS: GABAPENTIN 600 MG TAB PO SCH ×3 (09:51→22:18)
[2022-06-02] MEDS: PROPRANOLOL HCL 20 MG TAB PO SCH ×2 (09:51→22:18)
[2022-06-02] MEDS: OLANZapine 5 MG TABLET PO PRN ×2 (10:40→18:35)
[2022-06-02 10:54] LABS: INR 1.3 (0.9-1.1); Prothrombin Time 13.9 Seconds (9.0-12.0)
[2022-06-02] MEDS: hydrOXYzine HCl 25 MG TAB PO PRN (12:11)
[2022-06-02] MEDS: WARFARIN SOD 5 MG TAB PO SCH (15:54)
[2022-06-02] MEDS: PRAZOSIN HCL 1 MG CAP PO SCH (22:18)
[2022-06-02] MEDS: traZODone HCL 50 MG TAB PO SCH (22:18)
[2022-06-03] MEDS: PROPRANOLOL HCL 20 MG TAB PO SCH ×2 (08:51→20:50)
[2022-06-03] MEDS: GABAPENTIN 600 MG TAB PO SCH ×3 (08:51→20:50)
[2022-06-03] MEDS: OLANZapine 5 MG TABLET PO PRN (10:22)
[2022-06-03] MEDS: hydrOXYzine HCl 25 MG TAB PO PRN (11:00)
--- NOTE | 2022-06-03 12:09 | Psychiatric Progress Note ---
Date of Service June 03, 2022 Impression / Recommendations Impression The patient is a 21 year old with a history of BPD, PTSD and MDD with psychotic features with multiple recent psychiatric hospitalizations, this is the fifth since mid-March, for SI with plan of overdosing and continuing decompensation in the outpatient setting, no longer working. Diagnostically differential includes BPD with worsening SI though unclear what potential interpersonal stressors may be contributing to this versus restrictive eating disorder versus secondary gain of getting disability versus MDD. MNPR due to high community prevalence of COVID and asplenic with higher infection risk 06/03/22: slight improvement in SI but remains labile. (1) Depression with suicidal ideation: (2) Borderline personality disorder: (3) Eating disorder, unspecified: (4) Acquired asplenia: (5) PTSD (post-traumatic stress disorder): Plan 06/03/22: patient prefers to d/c Zoloft and monitor for discontinuation syndrome rather than tapering, agreeable to Zyprexa standing order at hs. Prn Ativan in place of Vistaril which is ineffective. Consider switch from Coumadin to Lovenox as patient cannot afford Eliquis. 06/02/22: d/c 1-on-1, patient's room being moved to [facility]. Consider longer term hospital referral. Keppra has been discontinued, has Zyprexa prn (previously helpful) and Zoloft held for now in case activating. 06/01/22: Continue current medication and tx plan. If she continues to refuse coumadin consider medication over objection. Will place pecan mallow dipper consult given history of unspecified eating disorder which seems to impact her mood signif icantly. 05/31/22: 303 commitment granted. Decrease Keppra to 250mg BID and then discontinue. Consider taper of gabapentin but fo now helping with anxiety. 05/30/22: Continue to encourage po intake and medications. Pursuing 303 commitment and likely medication over objection if she continues to refuse warfarin. Per discussion with [facility] hospitalist consult provider alternative formulations available for treating the thrombus would be Lovenox 70mg q12h or Eliquis 5mg BID. Prior to admission she was being prescribed warfarin 7.5mg MWF and 5mg SSTTh. 05/29/22: Continue to encourage adherence with medications and po intake. Continue efforts for labwork to check INR. External med rec also notable for venlafaxine 150mg BID. Given maximum dose of sertraline and her ongoing refusal for medications will avoid restarting this given serotonin syndrome risk with concurrent sertraline and now through most of the withdrawal symptoms period/refusing all medications. 05/28/22: The patient was admitted to the [facility] ([facility] mental health unit) on q15 min checks (behavioral with suicide precautions) for safety. The patient will participate in group, recreational, and milieu therapies and will be offered additional individual and family sessions as clinically appropriate. -Continue sertraline 200mg qd, trazodone 150mg qhs, prazosin 1mg qhs, gabapentin 600mg BID -Taper Keppra as concern this is adding to irritability, will reduce to 500mg BID with plan for taper to discontinuation -Continue to monitor and encourage po intake -No available records from the [facility] as discharge paperwork has not yet been completed from her stay Inventory Assets Strengths: supportive relationships, outpatient providers, had period of outpatient stability in the past, manages medical issues Needs: safety and stabilization, medication adjustment, additional coping skills, increased outpatient services Suicide Risk Level Suicide Risk Level: High-Moderate (q15 min suicide checks) Suicide Risk Level Comments: High-Moderate due to severe depression with SI with plan prior to admission and now refusing medications and food but has maintained safe behaviors and able to safety contract and agrees to let nursing/staff know should she develop specific plan, intent or feel unable to remain safe. Risk Factors Assessment : Yes Do You Have Access To A Gun?: No Health Problems: Yes Mental Health Diagnoses: Yes Substance Use Disorders: No Previous Attempt: Yes Previous Psychiatric Hospitalization: Yes Hopelessness: Yes Protective Factors Assessment : Yes Employed: No Stable Relationships: Yes Supportive Family: Yes Interval History Identifying Information MAKENZIE COSTA is a 21-year-old F who currently lives in [place] with her and in-laws, has a history of MDD with psychotic features, PTSD, BPD, Brock brock disease, superior mesenteric venous thrombus, asplenia and was admitted on 05/27/22 22:55 on a 302 involuntary commitment for SI with plan of overdosing on medications. Chief Complaint "my anxiety is till pretty high" Review of Systems Sleep Information Total Hours of Sleep: 8 Sleep Comments: pt on q-15 minute checks Meal Information Percent Meal Consumed - Breakfast: 100 Percent Meal Consumed - Lunch: 100 Percent Meal Consumed - Dinner: 100 Subjective Subjective Patient was seen & assessed and interval progress reviewed with nursing and social work. Patient has been more visible in the milieu, regressed near bedtime after a peer called her out on enjoying a movie but rating her mood as a 1. She is interested in switch to Lovenox as doesn't mind the injections as Elliquis not [place] by [place] which is her secondary [place]. She doesn't like blood draws for Coumadin and states has never been in range. Physical Exam Psychiatric Orientation: alert and oriented x 3 Apperance: appropriately dressed Eye Contact: good eye contact Motor Behavior: no abnormal motor movements Speech: normal rate/rhythm/volume of speech Affect: euthymic affect Mood: + anxious mood Thought Process: + concrete thought process Thought Content: reality based without delusions Suicidal Thoughts: denies suicidal plan and denies suicidal intent; + reports suicidal thoughts (intermittent, no intent on unit, can't safety plan outside of unit) Homicidal Thoughts: denies homicidal thoughts Hallucinations: no auditory hallucinations and no visual hallucinations Cognition: attention grossly intact Vital Signs (Past 24 Hours) Last Vital Signs Temp 37.1 C 06/02/22 20:00 Pulse 83 06/03/22 08:50 Resp 18 06/03/22 08:50 BP 109/71 06/03/22 08:50 Pulse Ox 97 05/31/22 20:47 O2 Del Method 05/30/22 21:00 Results & Data ([facility]) Current Inpatient Medications Current Inpatient Medications: Current Inpatient Medications Acetaminophen (Acetaminophen 325 Mg Tab) 650 mg PO Q4H PRN PRN Reason: Headache or Minor Fever Stop: 06/27/22 00:29 Last Admin: 05/31/22 17:02 Dose: 650 mg Al Hydrox/Mg Hydrox/Simethicone (Aluminum/Magnesium Susp 30 Ml Udc) 30 ml PO Q4H PRN PRN Reason: GI Upset Stop: 06/27/22 00:29 Dicyclomine HCl (Dicyclomine Hcl 10 Mg Cap) 10 mg PO QID PRN PRN Reason: ABD PAIN Stop: 06/27/22 16:10 Famotidine (Famotidine 20 Mg Tab) 20 mg PO BID PRN PRN Reason: Acid Reflux Stop: 06/27/22 16:10 Gabapentin (Gabapentin 600 Mg Tab) 600 mg PO TID RENU Stop: 06/27/22 20:59 Last Admin: 06/03/22 08:51 Dose: 600 mg Lorazepam (Lorazepam 0.5 Mg Tab) 0.5 mg PO Q6 PRN PRN Reason: Anxiety Stop: 07/03/22 12:07 Magnesium Hydroxide (Magnesium Hydroxide Susp 30 Ml Udc) 30 ml PO DAILY PRN PRN Reason: Constipation Stop: 06/27/22 00:29 Olanzapine (Olanzapine 5 Mg Tablet) 5 mg PO Q6 PRN PRN Reason: Anxiety/Agitation Stop: 07/01/22 17:59 Last Admin: 06/03/22 10:22 Dose: 5 mg Prazosin HCl (Prazosin Hcl 1 Mg Cap) 1 mg PO HS [facility] Stop: 06/27/22 21:59 Last Admin: 06/02/22 22:18 Dose: Not Given Propranolol HCl (Propranolol Hcl 20 Mg Tab) 20 mg PO BID [facility] Stop: 06/27/22 20:59 Last Admin: 06/03/22 08:51 Dose: 20 mg Sodium Chloride (Sodium Chloride 0.65% Na Soln 45 Ml ([place])) 1 - 2 sprays NA PRN PRN PRN Reason: Nasal Dryness/Congestion Stop: 06/27/22 00:29 Trazodone HCl (Trazodone Hcl 50 Mg Tab) 150 mg PO [facility] Stop: 06/27/22 21:59 Last Admin: 06/02/22 22:18 Dose: Not Given Warfarin Sodium (Warfarin Sod 2.5 Mg Tab) 2.5 mg PO [id number]@1600 [facility] Stop: 06/27/22 15:59 Last Admin: 06/01/22 15:51 Dose: Not Given Warfarin Sodium (Warfarin Sod 5 Mg Tab) 5 mg PO [email or web address]@1600 [facility] Stop: 06/28/22 15:59 Last Admin: 06/02/22 15:54 Dose: Not Given Mental Health & Subst Abuse Tx Psychiatrist Name of Psychiatrist: [employer] Psychiatrist's Date of Appointment with Psychiatrist: 06/06/22 Time of Appointment with Psychiatrist: 2:20PM Psychiatric Appointment Comment: [address], [place] [address] Therapist Name of Therapist: Jazzmine Galvan Therapist's Date of Therapist Appointment: 06/14/22 Time of Therapist Appointment: 9 AM Therapy Appointment Comment: [address], [address], [place] [address] Rip And Groove Machine Operator Name of Rip And Groove Machine Operator: Andreea Soares Phone Number for [employer] Machine Operator: [phone] Case Management Appointment Comment: Please resume your normal schedule. Post Discharge Appointments Primary Care Physician Name Of Family Doctor: Bubba Chaparro (appointment is with Dr. Kelvin Dhaliwal) Primary Care Date of Appointment with PCP: 06/06/22 Time of Appointment with PCP: 10:45 AM Provider Appointment Comment: [address] [facility], [place] [address] Contact Information Discharge Discharge Address: [address] [place] [id number]
[2022-06-03] MEDS: WARFARIN SOD 5 MG TAB PO SCH (16:18)
[2022-06-03] MEDS: OLANZapine 5 MG TABLET PO SCH (20:50)
[2022-06-03] MEDS: PRAZOSIN HCL 1 MG CAP PO SCH (20:50)
[2022-06-03] MEDS: traZODone HCL 50 MG TAB PO SCH (20:51)
[2022-06-04] MEDS: GABAPENTIN 600 MG TAB PO SCH ×3 (08:57→21:09)
[2022-06-04] MEDS: PROPRANOLOL HCL 20 MG TAB PO SCH ×2 (08:57→21:09)
[2022-06-04] MEDS: LORazepam 0.5 MG TAB PO PRN ×2 (09:53→22:33)
--- NOTE | 2022-06-04 09:53 | Psychiatric Progress Note ---
Date of Service June 04, 2022 Impression / Recommendations Impression The patient is a 21 year old with a history of BPD, PTSD and MDD with psychotic features with multiple recent psychiatric hospitalizations, this is the fifth since mid-March, for SI with plan of overdosing and continuing decompensation in the outpatient setting, no longer working. 06/04/22: intermittent SI. In lieu of formal behavior plan are limiting access to clothes today (no sweatshirts), has safety blanket and pillow, back on safety tray. Patient is currently pleasant and cooperative, SI is chronic. Will d/c 1-on-1 and monitor. Patient has been hospitalized 6 times in the past year:[facility] for 3 weeks in Apr 2022, [facility] x 3 in March 2022, [facility] May 2021 and would benefit from more extended stay facility. (1) Depression with suicidal ideation: (2) Borderline personality disorder: (3) Eating disorder, unspecified: (4) Acquired asplenia: (5) PTSD (post-traumatic stress disorder): Plan 06/04/22: d/c 1-on-1, INR less than 2 so change to Eliquis 5 mg BID to improve compliance. [facility] is an acute care facility, will explore referral to [facility]. 06/03/22: patient prefers to d/c Zoloft and monitor for discontinuation syndrome rather than tapering, agreeable to Zyprexa standing order at . Prn Ativan in place of Vistaril which is ineffective. Consider switch from Coumadin to Lovenox as patient cannot afford Eliquis. 06/02/22: d/c 1-on-1, patient[facility] being [facility] to [facility]. Consider longer term hospital referral. Keppra has been discontinued, has Zyprexa prn (previously helpful) and Zoloft held for now in case activating. 06/01/22: Continue current medication and tx plan. If she continues to refuse coumadin consider medication over objection. Will place manager telemetry consult given history of unspecified eating disorder which seems to impact her mood significantly. 05/31/22: 303 commitment granted. Decrease Keppra to 250mg BID and then discontinue. Consider taper of gabapentin but fo now helping with anxiety. 05/30/22: Continue to encourage po intake and medications. Pursuing 303 commitment and likely medication over objection if she continues to refuse warfarin. Per discussion with [facility] hospitalist consult provider alternative formulations available for treating the thrombus would be Lovenox 70mg q12h or Eliquis 5mg BID. Prior to admission she was being prescribed warfarin 7.5mg MWF and 5mg SSTTh. 05/29/22: Continue to encourage adherence with medications and po intake. Continue efforts for labwork to check INR. External med rec also notable for venlafaxine 150mg BID. Given maximum dose of sertraline and her ongoing refusal for medications will avoid restarting this given serotonin syndrome risk with concurrent sertraline and now through most of the withdrawal symptoms period/refusing all medications. 05/28/22: The patient was admitted to the [facility] ([facility] unit) on q15 min checks (behavioral with suicide precautions) for safety. The patient will participate in group, recreational, and milieu therapies and will be offered additional individual and family sessions as clinically appropriate. -Continue sertraline 200mg qd, trazodone 150mg qhs, prazosin 1mg qhs, gabapentin 600mg BID -Taper Keppra as concern this is adding to irritability, will reduce to 500mg BID with plan for taper to discontinuation -Continue to monitor and encourage po intake -No available records from the [facility] as discharge paperwork has not yet been completed from her stay Inventory Assets Strengths: supportive relationships, outpatient providers, had period of outpatient stability in the past, manages medical issues Needs: safety and stabilization, medication adjustment, additional coping skills, increased outpatient services Suicide Risk Level Suicide Risk Level: High-Moderate (q15 min suicide checks) Risk Factors Assessment : Yes Do You Have Access To A Gun?: No Health Problems: Yes Mental Health Diagnoses: Yes Substance Use Disorders: No Previous Attempt: Yes Previous Psychiatric Hospitalization: Yes Hopelessness: Yes Protective Factors Assessment : Yes Employed: No Stable Relationships: Yes Supportive Family: Yes Interval History Identifying Information MAKENZIE COSTA is a 21-year-old F who currently lives in [place] with her and in-laws, has a history of MDD with psychotic features, PTSD, BPD, Brock brock disease, superior mesenteric venous thrombus, asplenia and was admitted on 05/27/22 22:55 on a 302 involuntary commitment for SI with plan of overdosing on medications. Chief Complaint "No one here triggered me, this just happens." Review of Systems Sleep Information Total Hours of Sleep: 5.5 Sleep Comments: pt on q-15 minute checks patient was placed on 1 to 1 Meal Information Percent Meal Consumed - Breakfast: 100 Percent Meal Consumed - Lunch: 100 Percent Meal Consumed - Dinner: 100 Subjective Subjective Patient was seen & assessed and interval progress reviewed with treatment team. Staff contacted me last pm that patient was in room tapping her head on the wall loud enough to be heard but not to point of causing any contusion/injury. She is on blood thinner but dislikes the hospital protocol daily blood draw and had refused pm meds including Coumadin since I had already spoken to patient about conversion to Lovenox as prefers injections to blood draws but I had some concern her desire was for SIB and given that she is hospitalized would suggest Elliquis for now. Apparently seemed to escalate after staff questioned if she returned plastic raines or related to multiple discharges/shift in milieu last pm. Patient on phone with and appeared brighter after meeting with me. Physical Exam Psychiatric Orientation: alert and oriented x 3 Apperance: appropriately groomed Eye Contact: good eye contact Motor Behavior: no abnormal motor movements Speech: normal rate/rhythm/volume of speech Affect: euthymic affect Mood: + depressed mood Thought Process: + concrete thought process Thought Content: reality based without delusions Suicidal Thoughts: denies suicidal intent; + reports suicidal thoughts and + reports suicidal plan (suffocate) Homicidal Thoughts: denies homicidal thoughts Hallucinations: no auditory hallucinations and no visual hallucinations Cognition: attention grossly intact and language grossly intact Estimated Intelligence: consistent with education level Insight: + limited insight Judgement: + limited judgement Vital Signs (Past 24 Hours) Last Vital Signs Temp 36.6 C 06/04/22 08:55 Pulse 91 H 06/04/22 08:55 Resp 16 06/04/22 08:55 BP 110/72 06/04/22 08:55 Pulse Ox 97 05/31/22 20:47 O2 Del Method 05/30/22 21:00 Results & Data ([facility]) Current Inpatient Medications Current Inpatient Medications: Current Inpatient Medications Acetaminophen (Acetaminophen 325 Mg Tab) 650 mg PO Q4H PRN PRN Reason: Headache or Minor Fever Stop: 06/27/22 00:29 Last Admin: 05/31/22 17:02 Dose: 650 mg Al Hydrox/Mg Hydrox/Simethicone (Aluminum/Magnesium Susp 30 Ml Udc) 30 ml PO Q4H PRN PRN Reason: GI Upset Stop: 06/27/22 00:29 Apixaban (Apixaban 5 Mg Tablet) 5 mg PO BID RENU Stop: 07/04/22 09:44 Dicyclomine HCl (Dicyclomine Hcl 10 Mg Cap) 10 mg PO QID PRN PRN Reason: ABD PAIN Stop: 06/27/22 16:10 Famotidine (Famotidine 20 Mg Tab) 20 mg PO BID PRN PRN Reason: Acid Reflux Stop: 06/27/22 16:10 Gabapentin (Gabapentin 600 Mg Tab) 600 mg PO TID RENU Stop: 06/27/22 20:59 Last Admin: 06/04/22 08:57 Dose: 600 mg Lorazepam (Lorazepam 0.5 Mg Tab) 0.5 mg PO Q6 PRN PRN Reason: Anxiety Stop: 07/03/22 12:07 Magnesium Hydroxide (Magnesium Hydroxide Susp 30 Ml Udc) 30 ml PO DAILY PRN PRN Reason: Constipation Stop: 06/27/22 00:29 Olanzapine (Olanzapine 5 Mg Tablet) 5 mg PO Q6 PRN PRN Reason: Anxiety/Agitation Stop: 07/01/22 17:59 Last Admin: 06/03/22 10:22 Dose: 5 mg Olanzapine (Olanzapine 5 Mg Tablet) 5 mg PO HS RENU Stop: 07/03/22 21:59 Last Admin: 06/03/22 20:50 Dose: Not Given Prazosin HCl (Prazosin Hcl 1 Mg Cap) 1 mg PO HS RENU Stop: 06/27/22 21:59 Last Admin: 06/03/22 20:50 Dose: Not Given Propranolol HCl (Propranolol Hcl 20 Mg Tab) 20 mg PO BID RENU Stop: 06/27/22 20:59 Last Admin: 06/04/22 08:57 Dose: 20 mg Sodium Chloride (Sodium Chloride 0.65% Na Soln 45 Ml ([place])) 1 - 2 sprays NA PRN PRN PRN Reason: Nasal Dryness/Congestion Stop: 06/27/22 00:29 Trazodone HCl (Trazodone Hcl 50 Mg Tab) 150 mg PO HS RENU Stop: 06/27/22 21:59 Last Admin: 06/03/22 20:51 Dose: Not Given Mental Health & Subst Abuse Tx Psychiatrist Name of Psychiatrist: [facility] Date of Appointment with Psychiatrist: 06/06/22 Time of Appointment with Psychiatrist: 2:20PM [facility]ment [facility] [address] [facility] [place] [address] Therapist Name of Therapist: Jazzmine Galvan Therapist's Date of Therapist Appointment: 06/14/22 Time of Therapist Appointment: 9 AM Therapy Appointment Comment: [address], [address], [place] [address] Head Of Visual Merchandising Name of Head Of Visual Merchandising: Andreea Soares Phone Number for Head Of Visual Merchandising: [phone] Case Management Appointment Comment: Please resume your normal schedule. Post Discharge Appointments Primary Care Physician Name Of Family Doctor: Bubba Chaparro (appointment is with Dr. Kelvin Dhaliwal) Primary Care Date of Appointment with PCP: 06/06/22 Time of Appointment with PCP: 10:45 AM Provider Appointment Comment: [address] [place] [address] Contact Information Discharge Discharge Address: [address] [place] [id number]
[2022-06-04] MEDS: APIXABAN 5 MG TABLET PO SCH ×2 (10:09→21:09)
[2022-06-04] MEDS: OLANZapine 5 MG TABLET PO PRN (11:59)
[2022-06-04] MEDS: ACETAMINOPHEN 325 MG TAB PO PRN ×2 (16:04→22:32)
[2022-06-04] MEDS: PRAZOSIN HCL 1 MG CAP PO SCH (21:08)
[2022-06-04] MEDS: traZODone HCL 50 MG TAB PO SCH (21:08)
[2022-06-04] MEDS: OLANZapine 5 MG TABLET PO SCH (21:08)
[2022-06-05] MEDS: GABAPENTIN 600 MG TAB PO SCH ×3 (08:41→21:17)
[2022-06-05] MEDS: PROPRANOLOL HCL 20 MG TAB PO SCH ×2 (08:41→21:20)
[2022-06-05] MEDS: APIXABAN 5 MG TABLET PO SCH ×2 (08:41→21:17)
[2022-06-05] MEDS: LORazepam 0.5 MG TAB PO PRN (10:57)
--- NOTE | 2022-06-05 12:25 | Psychiatric Progress Note ---
Date of Service June 05, 2022 Impression / Recommendations Impression The patient is a 21 year old with a history of BPD, PTSD and MDD with psychotic features with multiple recent psychiatric hospitalizations, this is the fifth since mid-March, for SI with plan of overdosing and continuing decompensation in the outpatient setting, no longer working. 06/05/22: intermittent SI. Patient has been hospitalized 6 times in the past year:[facility] for 3 weeks in Apr 2022, [facility] x 3 in March 2022, [facility] May 2021 and would benefit from more extended stay facility. (1) Depression with suicidal ideation: (2) Borderline personality disorder: (3) Eating disorder, unspecified: (4) Acquired asplenia: (5) PTSD (post-traumatic stress disorder): Plan 06/05/22: compliant with Eliquis, [facility] declined, [facility] cannot accept [place] of [place] referrals. Treatment team discussion around [facility] hospital referral. Will need CXR, EKG for clearance and 304 commitment so paperwork completed. Patient is voicing agreement with this plan. 06/04/22: d/c 1-on-1, INR less than 2 so change to Eliquis 5 mg BID to improve compliance. [facility] is an acute care facility, will explore referral to [facility]. 06/03/22: patient prefers to d/c Zoloft and monitor for discontinuation syndrome rather than tapering, agreeable to Zyprexa standing order at . Prn Ativan in place of Vistaril which is ineffective. Consider switch from Coumadin to Lovenox as patient cannot afford Eliquis. 06/02/22: d/c 1-on-1, patient's room being moved to [facility]. Consider longer term hospital referral. Keppra has been discontinued, has Zyprexa prn (previously helpful) and Zoloft held for now in case activating. 06/01/22: Continue current medication and tx plan. If she continues to refuse coumadin consider medication over objection. Will place oil burner repairer consult given history of unspecified eating disorder which seems to impact her mood significantly. 05/31/22: 303 commitment granted. Decrease Keppra to 250mg BID and then discontinue. Consider taper of gabapentin but fo now helping with anxiety. 05/30/22: Continue to encourage po intake and medications. Pursuing 303 commitment and likely medication over objection if she continues to refuse warfarin. Per discussion with [facility] hospitalist consult provider alternative formulations available for treating the thrombus would be Lovenox 70mg q12h or Eliquis 5mg BID. Prior to admission she was being prescribed warfarin 7.5mg MWF and 5mg SSTTh. 05/29/22: Continue to encourage adherence with medications and po intake. Continue efforts for labwork to check INR. External med rec also notable for venlafaxine 150mg BID. Given maximum dose of sertraline and her ongoing refusal for medications will avoid restarting this given serotonin syndrome risk with concurrent sertraline and now through most of the withdrawal symptoms period/refusing all medications. 05/28/22: The patient was admitted to the [facility]) on q15 min checks (behavioral with suicide precautions) for safety. The patient will participate in group, recreational, and milieu therapies and will be offered additional individual and family sessions as clinically appropriate. -Continue sertraline 200mg qd, trazodone 150mg qhs, prazosin 1mg qhs, gabapentin 600mg BID -Taper Keppra as concern this is adding to irritability, will reduce to 500mg BID with plan for taper to discontinuation -Continue to monitor and encourage po intake -No available records from the [facility] as discharge paperwork has not yet been completed from her stay Inventory Assets Strengths: supportive relationships, outpatient providers, had period of outpatient stability in the past, manages medical issues Needs: safety and stabilization, medication adjustment, additional coping skills, increased outpatient services Suicide Risk Level Suicide Risk Level: High-Moderate (q15 min suicide checks) Risk Factors Assessment : Yes Do You Have Access To A Gun?: No Health Problems: Yes Mental Health Diagnoses: Yes Substance Use Disorders: No Previous Attempt: Yes Previous Psychiatric Hospitalization: Yes Hopelessness: Yes Protective Factors Assessment : Yes Employed: No Stable Relationships: Yes Supportive Family: Yes Interval History Identifying Information MAKENZIE COSTA is a 21-year-old F who currently lives in [place] with her and in-laws, has a history of MDD with psychotic features, PTSD, BPD, Brock brock disease, superior mesenteric venous thrombus, asplenia and was admitted on 05/27/22 22:55 on a 302 involuntary commitment for SI with plan of overdosing on medications. Chief Complaint "what's happening? I'm still suicidal but would like my stuff back." Review of Systems Sleep Information Total Hours of Sleep: 6.5 Sleep Comments: pt on q-15 minute checks patient was placed on 1 to 1 Meal Information Percent Meal Consumed - Breakfast: 100 Percent Meal Consumed - Lunch: 100 Percent Meal Consumed - Dinner: 0 Subjective Subjective Patient was seen & assessed and interval progress reviewed with nursing and sw. continues to rate mood as 1/10, depressed and suicidal. Denies any urge to act on SI here though clearly seeking to get more of her belonging back. Remains on safe tray. Requests prn regularly. She was declined for an extended acute unit and [facility] only takes referrals from their [facility] as part of diversion. Patient is aware we would like to start the [facility] hospital referral process given 6 inpatient hospitalization this year and unable to maintain safety, recent gesture on unit, etc. Physical Exam Psychiatric Orientation: alert and oriented x 3 Apperance: appropriately dressed and appropriately groomed Eye Contact: good eye contact Motor Behavior: no abnormal motor movements Speech: normal rate/rhythm/volume of speech Affect: + depressed affect Mood: + depressed mood Thought Process: + concrete thought process Thought Content: reality based without delusions Suicidal Thoughts: denies suicidal plan and denies suicidal intent; + reports suicidal thoughts Homicidal Thoughts: denies homicidal thoughts Hallucinations: + auditory hallucinations (but does not appear to be responding to internal stimuli); no visual hallucinations Cognition: attention grossly intact and language grossly intact Estimated Intelligence: consistent with education level Insight: + limited insight Judgement: + limited judgement Vital Signs (Past 24 Hours) Last Vital Signs Temp 37 C 06/05/22 06:45 Pulse 82 06/05/22 06:46 Resp 16 06/05/22 06:45 BP 105/65 06/05/22 06:46 Pulse Ox 97 05/31/22 20:47 O2 Del Method 05/30/22 21:00 Results & Data ([facility]) Current Inpatient Medications Current Inpatient Medications: Current Inpatient Medications Acetaminophen (Acetaminophen 325 Mg Tab) 650 mg PO Q4H PRN PRN Reason: Headache or Minor Fever Stop: 06/27/22 00:29 Last Admin: 06/04/22 22:32 Dose: 650 mg Al Hydrox/Mg Hydrox/Simethicone (Aluminum/Magnesium Susp 30 Ml Udc) 30 ml PO Q4H PRN PRN Reason: GI Upset Stop: 06/27/22 00:29 Apixaban (Apixaban 5 Mg Tablet) 5 mg PO BID RENU Stop: 07/04/22 09:44 Last Admin: 06/05/22 08:41 Dose: 5 mg Dicyclomine HCl (Dicyclomine Hcl 10 Mg Cap) 10 mg PO QID PRN PRN Reason: ABD PAIN Stop: 06/27/22 16:10 Famotidine (Famotidine 20 Mg Tab) 20 mg PO BID PRN PRN Reason: Acid Reflux Stop: 06/27/22 16:10 Gabapentin (Gabapentin 600 Mg Tab) 600 mg PO TID RENU Stop: 06/27/22 20:59 Last Admin: 06/05/22 08:41 Dose: 600 mg Lorazepam (Lorazepam 0.5 Mg Tab) 0.5 mg PO Q6 PRN PRN Reason: Anxiety Stop: 07/03/22 12:07 Last Admin: 06/05/22 10:57 Dose: 0.5 mg Magnesium Hydroxide (Magnesium Hydroxide Susp 30 Ml Udc) 30 ml PO DAILY PRN PRN Reason: Constipation Stop: 06/27/22 00:29 Olanzapine (Olanzapine 5 Mg Tablet) 5 mg PO Q6 PRN PRN Reason: Anxiety/Agitation Stop: 07/01/22 17:59 Last Admin: 06/04/22 11:59 Dose: 5 mg Olanzapine (Olanzapine 5 Mg Tablet) 5 mg PO HS RENU Stop: 07/03/22 21:59 Last Admin: 06/04/22 21:08 Dose: 5 mg Prazosin HCl (Prazosin Hcl 1 Mg Cap) 1 mg PO HS RENU Stop: 06/27/22 21:59 Last Admin: 06/04/22 21:08 Dose: 1 mg Propranolol HCl (Propranolol Hcl 20 Mg Tab) 20 mg PO BID RENU Stop: 06/27/22 20:59 Last Admin: 06/05/22 08:41 Dose: 20 mg Sodium Chloride (Sodium Chloride 0.65% Na Soln 45 Ml ([place])) 1 - 2 sprays NA PRN PRN PRN Reason: Nasal Dryness/Congestion Stop: 06/27/22 00:29 Trazodone HCl (Trazodone Hcl 50 Mg Tab) 150 mg PO HS RENU Stop: 06/27/22 21:59 Last Admin: 06/04/22 21:08 Dose: 150 mg Mental Health & Subst Abuse Tx Psychiatrist Name of Psychiatrist: [facility] Psychiatrist's Date of Appointment with Psychiatrist: 06/06/22 Time of Appointment with Psychiatrist: 2:20PM Psychiatric Appointment Comment: [address] [facility] [place] [address] Therapist Name of Therapist: Jazzmine Galvan Therapist's Date of Therapist Appointment: 06/14/22 Time of Therapist Appointment: 9 AM Therapy Appointment Comment: [address], [address], [place] [address] Product Management Manager Name of Product Management Manager: Andreea Soares Phone Number for Product Management Manager: [phone] Case Management Appointment Comment: Please resume your normal schedule. Post Discharge Appointments Primary Care Physician Name Of Family Doctor: Bubba Chaparro Primary Care Date of Appointment with PCP: 06/06/22 Time of Appointment with PCP: 10:45 AM Provider Appointment Comment: [address] [facility], [place] [address] Contact Information Discharge Discharge Address: [address] [place] [id number]
--- NOTE | 2022-06-05 13:21 | XRay Report ---
XR chest 1V portable CLINICAL HISTORY: TB screening TECHNIQUE: Single frontal radiograph of the chest was obtained. Comparison: Comparison is made to chest radiograph 06/22/2021 FINDINGS: No lines and tubes are seen. The cardiomediastinal silhouette is normal. The lungs are clear. No evid ence of pleural effusion or pneumothorax. IMPRESSION: No acute abnormality and in particular no evidence of radiographic findings of tuberculosis. ACT 112: Negative or not required by law. Electronically signed by: Rakesh Dimas M.D. 06/05/2022 1:19 PM
[2022-06-05] MEDS ORDERED: COUGH DROP (SUGAR FREE) LOZ 24 LOZ/1 BOX BUCCAL PRN (14:24)
[2022-06-05] MEDS: BACITRACIN OINT 15 GM TUBE EXT SCH ×2 (14:51→19:57)
--- NOTE | 2022-06-05 15:01 | Electrocardiogram Report ---
Test Reason : Blood Pressure : / mmHG Vent. Rate : 077 BPM Atrial Rate : 077 BPM P-R Int : 130 ms QRS Dur : 092 ms QT Int : 380 ms P-R-T Axes : 064 083 078 degrees QTc Int : 430 ms Normal sinus rhythm RSR' or QR pattern in V1 suggests right ventricular conduction delay Borderline ECG When compared with ECG of 22-JUN-2021 15:31, Non-specific change in ST segment in Anterior leads Nonspecific T wave abnormality no longer evident in Inferior leads Confirmed by Elvis Richardson ([id number]) on 06/05/2022 3:01:26 PM Referred By: REFERRED SELF Confirmed By:Elvis Richardson
[2022-06-05] MEDS: OLANZapine 5 MG TABLET PO SCH (21:17)
[2022-06-05] MEDS: PRAZOSIN HCL 1 MG CAP PO SCH (21:18)
[2022-06-05] MEDS: traZODone HCL 50 MG TAB PO SCH (21:18)
[2022-06-06] MEDS: PROPRANOLOL HCL 20 MG TAB PO SCH ×3 (08:30→22:27)
[2022-06-06] MEDS: GABAPENTIN 600 MG TAB PO SCH ×4 (08:30→22:27)
[2022-06-06] MEDS: BACITRACIN OINT 15 GM TUBE EXT SCH ×3 (08:30→22:26)
[2022-06-06] MEDS: APIXABAN 5 MG TABLET PO SCH ×3 (08:30→22:28)
[2022-06-06] MEDS: LORazepam 0.5 MG TAB PO PRN (11:53)
--- NOTE | 2022-06-06 14:21 | Psychiatric Progress Note ---
Date of Service June 06, 2022 Impression / Recommendations Impression The patient is a 21 year old with a history of BPD, PTSD and MDD with psychotic features with multiple recent psychiatric hospitalizations, this is the fifth since mid-March, for SI with plan of overdosing and continuing decompensation in the outpatient setting, no longer working. Converted to 304 on 06/06/22. 06/06/22: intermittent SI. Patient has been hospitalized 6 times in the past year:[facility] for 3 weeks in Apr 2022, [facility] x 3 in March 2022, [facility] May 2021 and would benefit from more extended stay facility. (1) Depression with suicidal ideation: (2) Borderline personality disorder: (3) Eating disorder, unspecified: (4) Acquired asplenia: (5) PTSD (post-traumatic stress disorder): Plan 06/06/22: 304 commitment granted. EKG and CXR reviewed. Routine hospitalist consult for medical clearance. 06/05/22: compliant with Eliquis, [facility] declined, [facility] cannot accept [place] referrals. Treatment team discussion around [facility] hospital referral. Will need CXR, EKG for clearance and 304 commitment so paperwork completed. Patient is voicing agreement with this plan. 06/04/22: d/c 1-on-1, INR less than 2 so change to Eliquis 5 mg BID to improve compliance. [facility] is an acute care facility, will explore referral to [facility]. 06/03/22: patient prefers to d/c Zoloft and monitor for discontinuation syndrome rather than tapering, agreeable to Zyprexa standing order at . Prn Ativan in place of Vistaril which is ineffective. Consider switch from Coumadin to Lovenox as patient cannot afford Eliquis. 06/02/22: d/c 1-on-1, patient[facility] being [facility]. Consider longer term hospital referral. Keppra has been discontinued, has Zyprexa prn (previously helpful) and Zoloft held for now in case activating. 06/01/22: Continue current medication and tx plan. If she continues to refuse coumadin consider medication over objection. Will place director of valuation consult given history of unspecified eating disorder which seems to impact her mood significantly. 05/31/22: 303 commitment granted. Decrease Keppra to 250mg BID and then discontinue. Consider taper of gabapentin but fo now helping with anxiety. 05/30/22: Continue to encourage po intake and medications. Pursuing 303 commitment and likely medication over objection if she continues to refuse warfarin. Per discussion with [facility] hospitalist consult provider alternative formulations available for treating the thrombus would be Lovenox 70mg q12h or Eliquis 5mg BID. Prior to admission she was being prescribed warfarin 7.5mg MWF and 5mg SSTTh. 05/29/22: Continue to encourage adherence with medications and po intake. Continue efforts for labwork to check INR. External med rec also notable for venlafaxine 150mg BID. Given maximum dose of sertraline and her ongoing refusal for medications will avoid restarting this given serotonin syndrome risk with concurrent sertraline and now through most of the withdrawal symptoms period/refusing all medications. 05/28/22: The patient was admitted to the [facility] ([facility]) on q15 min checks (behavioral with suicide precautions) for safety. The patient will participate in group, recreational, and milieu therapies and will be offered additional individual and family sessions as clinically appropriate. -Continue sertraline 200mg qd, trazodone 150mg qhs, prazosin 1mg qhs, gabapentin 600mg BID -Taper Keppra as concern this is adding to irritability, will reduce to 500mg BID with plan for taper to discontinuation -Continue to monitor and encourage po intake -No available records from the [facility] as discharge paperwork has not yet been completed from her stay Inventory Assets Strengths: supportive relationships, outpatient providers, had period of outpatient stability in the past, manages medical issues Needs: safety and stabilization, medication adjustment, additional coping skills, increased outpatient services Suicide Risk Level Suicide Risk Level: High-Moderate (q15 min suicide checks) Suicide Risk Level Comments: High-Moderate due to severe depression with SI with plan prior to admission and now refusing medications and food but has maintained safe behaviors and able to safety contract and agrees to let nursing/staff know should she develop specific plan, intent or feel unable to remain safe. Risk Factors Assessment : Yes Do You Have Access To A Gun?: No Health Problems: Yes Mental Health Diagnoses: Yes Substance Use Disorders: No Previous Attempt: Yes Previous Psychiatric Hospitalization: Yes Hopelessness: Yes Protective Factors Assessment : Yes Employed: No Stable Relationships: Yes Supportive Family: Yes Interval History Identifying Information MAKENZIE COSTA is a 21-year-old F who currently lives in [place] with her and in-laws, has a history of MDD with psychotic features, PTSD, BPD, Brock brock disease, superior mesenteric venous thrombus, asplenia and was admitted on 05/27/22 22:55 on a 302 involuntary commitment for SI with plan of overdosing on medications. Chief Complaint 304 hearing Review of Systems Sleep Information Total Hours of Sleep: 8 Sleep Comments: pt on q-15 minute checks patient was placed on 1 to 1 Meal Information Percent Meal Consumed - Breakfast: 100 Percent Meal Consumed - Lunch: 100 Percent Meal Consumed - Dinner: 100 Subjective Subjective Patient was seen & assessed and interval progress reviewed with treatment team. cooperative with staff as motivated to earn back clothes, etc. cooperative with safety tray. Participated in hearing. Physical Exam Psychiatric Orientation: alert and oriented x 3 Apperance: appropriately dressed and appropriately groomed Eye Contact: good eye contact Motor Behavior: no abnormal motor movements Speech: normal rate/rhythm/volume of speech Affect: + depressed affect and mood congruent with affect Mood: + anxious mood Thought Process: + concrete thought process Suicidal Thoughts: denies suicidal plan and denies suicidal intent; + reports suicidal thoughts Homicidal Thoughts: denies homicidal thoughts Hallucinations: + auditory hallucinations (but does not appear to be responding to internal stimuli); no visual hallucinations Cognition: attention grossly intact and language grossly intact Vital Signs (Past 24 Hours) Last Vital Signs Temp 36.8 C 06/06/22 06:00 Pulse 85 06/06/22 08:32 Resp 18 06/06/22 06:00 BP 109/76 06/06/22 08:32 Pulse Ox 97 05/31/22 20:47 O2 Del Method 05/30/22 21:00 Results & Data ([facility]) Diagnostic Findings Chest X-Ray 06/05/22 12:14 XR chest 1V portable CLINICAL HISTORY: TB screening TECHNIQUE: Single frontal radiograph of the chest was obtained. Comparison: Comparison is made to chest radiograph 06/22/2021 FINDINGS: No lines and tubes are seen. The cardiomediastinal silhouette is normal. The lungs are clear. No evidence of pleural effusion or pneumothorax. IMPRESSION: No acute abnormality and in particular no evidence of radiographic findings of tuberculosis. ACT 112: Negative or not required by law. Electronically signed by: Rakesh Dimas M.D. 06/05/2022 1:19 PM Current Inpatient Medications Current Inpatient Medications: Current Inpatient Medications Acetaminophen (Acetaminophen 325 Mg Tab) 650 mg PO Q4H PRN PRN Reason: Headache or Minor Fever Stop: 06/27/22 00:29 Last Admin: 06/04/22 22:32 Dose: 650 mg Al Hydrox/Mg Hydrox/Simethicone (Aluminum/Magnesium Susp 30 Ml Udc) 30 ml PO Q4H PRN PRN Reason: GI Upset Stop: 06/27/22 00:29 Apixaban (Apixaban 5 Mg Tablet) 5 mg PO BID [facility] Stop: 07/04/22 09:44 Last Admin: 06/06/22 08:30 Dose: 5 mg Bacitracin (Bacitracin Oint 15 Gm Tube) 1 appln EXT BID RENU Stop: 07/05/22 14:24 Last Admin: 06/06/22 08:30 Dose: 1 appln Dicyclomine HCl (Dicyclomine Hcl 10 Mg Cap) 10 mg PO QID PRN PRN Reason: ABD PAIN Stop: 06/27/22 16:10 Famotidine (Famotidine 20 Mg Tab) 20 mg PO BID PRN PRN Reason: Acid Reflux Stop: 06/27/22 16:10 Gabapentin (Gabapentin 600 Mg Tab) 600 mg PO TID RENU Stop: 06/27/22 20:59 Last Admin: 06/06/22 08:30 Dose: 600 mg Lorazepam (Lorazepam 0.5 Mg Tab) 0.5 mg PO Q6 PRN PRN Reason: Anxiety Stop: 07/03/22 12:07 Last Admin: 06/06/22 11:53 Dose: 0.5 mg Magnesium Hydroxide (Magnesium Hydroxide Susp 30 Ml Udc) 30 ml PO DAILY PRN PRN Reason: Constipation Stop: 06/27/22 00:29 Menthol (Cough Drop (Sugar Free) Wenceslao 24 Wenceslao/1 Box) 1 wenceslao BUCCAL Q1HWA PRN PRN Reason: Sore Throat Stop: 07/05/22 14:23 Last Admin: 06/05/22 14:34 Dose: 1 wenceslao Olanzapine (Olanzapine 5 Mg Tablet) 5 mg PO Q6 PRN PRN Reason: Anxiety/Agitation Stop: 07/01/22 17:59 Last Admin: 06/04/22 11:59 Dose: 5 mg Olanzapine (Olanzapine 5 Mg Tablet) 5 mg PO HS RENU Stop: 07/03/22 21:59 Last Admin: 06/05/22 21:17 Dose: 5 mg Prazosin HCl (Prazosin Hcl 1 Mg Cap) 1 mg PO HS RNEU Stop: 06/27/22 21:59 Last Admin: 06/05/22 21:18 Dose: 1 mg Propranolol HCl (Propranolol Hcl 20 Mg Tab) 20 mg PO BID RENU Stop: 06/27/22 20:59 Last Admin: 06/06/22 08:30 Dose: 20 mg Sodium Chloride (Sodium Chloride 0.65% Na Soln 45 Ml (Gonzales)) 1 - 2 sprays NA PRN PRN PRN Reason: Nasal Dryness/Congestion Stop: 06/27/22 00:29 Trazodone HCl (Trazodone Hcl 50 Mg Tab) 150 mg PO HS RENU Stop: 06/27/22 21:59 Last Admin: 06/05/22 21:18 Dose: 150 mg Mental Health & Subst Abuse Tx Psychiatrist Name of Psychiatrist: [facility] Date of Appointment with Psychiatrist: 06/06/22 Time of Appointment with Psychiatrist: 2:20PM Psychiatric Appointment Comment: [address] [place] [address] Therapist Name of Therapist: Jazzmine Galvan Therapist's Date of Therapist Appointment: 06/14/22 Time of Therapist Appointment: 9 AM Therapy Appointment Comment: [address], [address], [place] [address] Performance Engineer Name of Performance Engineer: Andreea Soares Phone Number for Performance Engineer: [phone] Case Management Appointment Comment: Please resume your normal schedule. Post Discharge Appointments Primary Care Physician Name Of Family Doctor: Bubba Chaparro Primary [facility] Date of Appointment with PCP: 06/06/22 Time of Appointment with PCP: 10:45 AM Provider Appointment Comment: [address] [place] [address] Contact Information Discharge Discharge Address: [address] [place], [place] [id number]
--- NOTE | 2022-06-06 14:34 | Hospitalist Consultation ---
Date of Consultation June 06, 2022 Assessment & Plan (1) Borderline personality disorder: (2) Depression with suicidal ideation: (3) MDD (major depressive disorder), recurrent, severe, with psychosis: (4) Eating disorder, unspecified: - Continue medication adjustments/ therapy, group/therapy/counselling as per psychiatry - pending possible transfer/discharge to [facility] for further management (5) Superior mesenteric vein thrombosis: - Diagnosed since March 01, 2021 - Continue on Eliquis 5 mg BID for patient compliance and limiting daily INR checks with medications such as when she was previously on coumadin. Due to insurance coverage and out of pocket costs, pt may require switch back to coumadin after discharge- but only if compliance improves with medication adjustments/coping mechanisms for the items listed above. - EKG reviewed from 06/05/2022 showing NSR, non specific change in ST segment in the anterior leads is comparable to previous from 06/22/2021. - Pt remains on room air, without cardiac complaints. - No abnormal bleeding as per HPI. Obtain CBC if any suspicion or concern for bleeding, monitor menstrual cycle to avoid excessive bleeding while on Eliquis. Discussion regarding contraceptive was held with the patient at bedside as she is currently not on any form of contraceptive. - CXR reviewed and is negative for acute abnormalities, no radiographic findings of TB. Cough noted in symptoms but is dry, resolving. DVT ppx: ambulatory, continue Eliquis CODE: Full code Dispo: From home, likely to remain hospitalized per the primary team for ongoing management Thank you for involving us in the care of Mrs Muñoz. Please do not hesitate to call with questions or concerns. At this time medicine service will follow along. Supervising Physician Co-Signing Physician Notes Pt seen and examined by me, care coordinated w/ Jacki Ball PA-C, pls refer to her note above for further detail (including addendum). Pt is a 21 yo with a history of [place], Superior mesenteric vein thrombosis, Borderline personality d/o, PTSD and MDD with psychotic features with multiple recent psychiatric hospitalizations, this one for suicidal ideations with plan of overdosing. Prior to her admission she was being prescribed warfarin 7.5 mg MWF and 5 mg SSTTh. She was transitioned to Eliquis to eliminate the needs for routine blood work and increase compliance. Pt was seen in her room, lying in bed resting in no distress. She is awake alert and cooperative, answering appropriately. Denies any chest pain, palpitations, shortness of breath, dizziness, lightheadedness, abdominal pain, or nausea. Reports good appetite. Pt denies any abnormal bleeding since being on Eliquis. Physical exam, lung sounds clear to auscultation bilaterally without any wheez ing rhonchi crackles. Heart sounds regular, without any murmurs noted.Abdomen soft nontender to palpation, nondistended, positive bowel sounds. There is no lower extremity edema. Patient moves extremities spontaneously and without difficulty. Chest x-ray and ECG reviewed as well. Patient should continue anticoagulation, either in the form of Eliquis or Coumadin. Patient should continue with her routine outpatient follow-ups with primary care physician, hematology and neurosurgery. MD [place] History of Present Illness Reason for Consultation: Medical management Requesting Physician: Dr. Mayo Attending Physician: Deepthi Mayo MD History of Present Illness This is a 21 year old with a history of BPD, PTSD and MDD with psychotic features with multiple recent psychiatric hospitalizations, this one being the fifth since mid-March, for suicidal ideations with plan of overdosing and continuing decompensation in the outpatient setting. Diagnostically differentia l includes bipolar disorder with worsening suicidal ideations though, it is unclear what potential interpersonal stressors may be contributing to this versus restrictive eating disorder versus secondary gain of getting disability versus major depressive disorder. Medicine has been consulted for mesenteric artery thrombus, treatment options, where previously the patient was refusing INR checks for coumadin use. Prior to her admission she was being prescribed warfarin 7.5 mg MWF and 5 mg SSTTh. She was transitioned to Eliquis to eliminate the needs for routine blood work and increase compliance. It was found that her insurance will not cover Eliquis, and patient cannot afford it out of pocket. Pt was seen in her room, she is lying down resting upon the beginning of my visit with her. She notes she is feeling well today and is agreeable to talking with me. Denies any acute complaints. Specifically denies any cardiac symptoms including palpitations, flutter, chest pain, pressure, heaviness, lightheadedness or dizziness. Recently has gotten over a small cold with respiratory symptoms and has a lingering dry cough. No shortness of breath. Pt denies any abnormal bleeding since being on Eliquis - no bleeding with brushing teeth, no changes in bowels, no dark tarry stools. Pt notes has not had a regular period since having Nexplanon removed from her arm in March this year. It was in place for 8 months for contraception and reports it was removed due to increased bleeding issues while also being on coumadin. She is no longer on any form of contraception. Pt lives at home with her of 2 years, and father in law. Allergies Allergy/AdvReac Type Severity Reaction Status Date / Time vancomycin Allergy Intermediate Red/Itchy Verified 03/31/22 19:40 skin Home Medications Medication Instructions Recorded Confirmed Type famotidine 20 mg tablet 20 mg PO BID PRN Acid Reflux 03/09/21 05/28/22 History dicyclomine 10 mg capsule 10 mg PO QID PRN ABD PAIN 06/22/21 05/28/22 History warfarin 2.5 mg tablet See Rx Instructions .Route .COMPLEX 04/16/22 05/28/22 History warfarin 5 mg tablet See Rx Instructions .Route .COMPLEX 04/16/22 05/28/22 History gabapentin 600 mg tablet 600 mg PO TID 05/28/22 05/28/22 History levetiracetam 1,000 mg tablet 1,000 mg PO HS mood 05/28/22 05/28/22 History (Keppra) levetiracetam 500 mg tablet 500 mg PO BID 05/28/22 05/28/22 History prazosin 1 mg capsule 1 mg PO HS 05/28/22 05/28/22 History propranolol 20 mg tablet 20 mg PO BID 05/28/22 05/28/22 History sertraline 100 mg tablet 200 mg PO DAILY 05/28/22 05/28/22 History trazodone 150 mg tablet 150 mg HS insomnia 05/28/22 05/28/22 History venlafaxine 150 mg tablet,extended 300 mg PO DAILY 05/29/22 05/29/22 History release 24 hr Patient History Medical History Asplenia Depression with suicidal ideation Eating disorder, unspecified Intermittent asthma Major depressive disorder with psychotic 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 PTSD (post-traumatic stress disorder) Suicidal ideation Superior mesenteric vein thrombosis Thrombocytosis Surgical History History of splenectomy Family History Denies family history of Coronary heart disease Social History Smoking Status: Never smoker Hx Alcohol Use: No Hx Substance Use: No Preferred Language: Filipino Communication Ability: Effective Plant Puller Required: No Beliefs That Will Affect Care: None marital status: Current Living Situation: Significant Other How many Children do You have: 0 Feels Safe at Home: Yes Assistive Devices: Glasses Review of Systems Review of Systems: Constitutional: No fever, sweats or chills Eyes: No diplopia, no worsening or blurred vision ENT: normal hearing, no trouble swallowing Respiratory: No cough, sputum, dyspnea at rest or on exertion Cardiovascular: No chest pain, tightness or palpitations Abdomen: No pain, nausea, vomiting, diarrhea or constipation Musculoskeletal: No joint pain, calf pain, swelling Neurologic: No weakness, numbness/tingling, or balance problems Psychiatric: No anxiety or depression Skin: No rash or itch Physical Exam Physical Exam: General: awake, alert, no apparent distress Head: Normocephalic, atraumatic ENT: PERRL, EOMI, no pharyngeal exudate, mucous membranes moist Chest: Clear to auscultation, on room air, no adventitious breath sounds Cardiac: Regular rate and rhythm, no murmur, no JVD, normal peripheral pulses, good capillary refill Abdominal: NABS x 4 quadrants, soft, nondistended, nontender to palpation, no rebound or guarding Extremities: Normal inspection, no peripheral edema or erythema, calfs nontender to palpation Psych: Normal mood and affect Neuro: AAO x 3, strength intact bilaterally and rated 5/5, no motor deficits, speech is clear, no peripheral sensory deficits Results & Data Results & Data ([facility]) Vital Signs (Past 12 Hours) Vital Signs Temp Pulse Pulse Resp BP BP 06/06/22 08:32 85 109/76 06/06/22 06:50 87 106/71 06/06/22 06:00 36.8 C 87 18 94/56 L
[2022-06-06] MEDS: OLANZapine 5 MG TABLET PO PRN (18:26)
[2022-06-06] MEDS: OLANZapine 5 MG TABLET PO SCH ×2 (20:49→22:28)
[2022-06-06] MEDS: PRAZOSIN HCL 1 MG CAP PO SCH ×2 (20:49→22:29)
[2022-06-06] MEDS: traZODone HCL 50 MG TAB PO SCH ×2 (20:49→22:26)
[2022-06-07] MEDS: GABAPENTIN 600 MG TAB PO SCH ×3 (08:28→21:15)
[2022-06-07] MEDS: BACITRACIN OINT 15 GM TUBE EXT SCH ×2 (08:28→21:13)
[2022-06-07] MEDS: PROPRANOLOL HCL 20 MG TAB PO SCH ×2 (08:28→21:14)
[2022-06-07] MEDS: APIXABAN 5 MG TABLET PO SCH ×2 (08:28→21:15)
[2022-06-07] MEDS: OLANZapine 5 MG TABLET PO PRN (11:37)
[2022-06-07] MEDS: LORazepam 0.5 MG TAB PO PRN (12:10)
[2022-06-07] MEDS: OLANZapine 5 MG TABLET PO SCH ×2 (12:52→21:14)
--- NOTE | 2022-06-07 13:42 | Hospitalist Progress Note ---
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 Diagnosed since March 01, 2021 - Continue on Eliquis 5 mg BID for patient compliance and limiting daily INR checks with medications such as when she was previously on coumadin. Due to insurance coverage and out of pocket costs, pt may require switch back to coumadin after discharge unless we can get a prior authorization for this. There are also drug coupons that may be explored. For now continue apixaban as this is the patient's first choice and is the easiest and well tolerated by her in the past. -she is on Nexplanon for contraception while on apixaban. 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 Risks include ischemic stroke or intrcranial bleeding. (3) Spherocytosis: Plan: chronic, no evidence of anemia. Cont following with hematology outpatient. (4) Thrombocytosis: Plan: chronically elevated and around her baseline level 2/2 asplenia (5) Asplenia: Plan: as a child, she has received vaccinations against encapsulated organisms including pneumococcal vaccine, meningococcal vaccine nincluding serogroup B, however, [facility] record reflects there was no Haemophilus influenza B given as was deferred. Annual influenza vaccine recommended. (6) Borderline personality disorder: (7) Depression with suicidal ideation: (8) MDD (major depressive disorder), recurrent, severe, with psychosis: (9) Eating disorder, unspecified: Plan: - Continue medication adjustments/ therapy, group/therapy/counselling as per psychiatry - pending possible transfer/discharge to state hospital for further management DVT ppx: ambulatory, continue Eliquis CODE: Full code Dispo: From home, likely to remain hospitalized per the primary team for ongoing management. Recent 304. Would consider additional prior authorizations for apixaban once she is going back home again. For now cont apixaban. She is medically stable. Will sign off for now, but please re-consult if there are any changes. 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 There was no clear provoking cause and she was placed on Lovenox for possible which was switched to apixaban after nexplanon implantation. Recently she changed insurance carriers and was unable to afford the apixaban, and was switched to coumadin. Recently, she was admitted for SI and is going to be committed for longer term with recent 304. Today she denies any bleeding or abdominal discomfort. She is overall doing well and easily tells me her historical medical problems. She is very helpful and a good historian. She is in good spirits and has clear understanding of her disease process. Review of Systems Review of Systems: All systems were reviewed and negative except as indicated on subjective above. Physical Exam Physical Exam: CONSTITUTIONAL: WNWD, vitals as above, generally well- appearing, NAD EYES: normal conjunctivae, no scleral icterus ENT: external ear and nose normal, MMM NECK: trachea midline RESPIRATORY: clear to auscultation bilaterally, no crackles, rales or wheezes, normal respiratory effort CARDIOVASCULAR: regular rate and rhythm, S1 and 2 heard without murmurs, gallops or rubs, no JVD, no peripheral edema CHEST: inspection of chest was normal GASTROINTESTINAL: soft, nontender, no hepatomegaly, no guarding MUSCULOSKELETAL: strength 5/5 throughout, head is normocephalic and atraumatic SKIN: warm and dry, NEUROLOGIC: CN 2-12 grossly intact, no sensory deficit, normal cognition, normal speech, no tremor PSYCHIATRIC: alert cooperative and oriented to person, place and time. Euthymic mood, makes good eye contact, language grossly intact, recent and remote memory grossly intact. Results & Data Results & Data ([facility]) Vital Signs (Past 12 Hours) Vital Signs Temp Pulse Resp BP 06/07/22 06:37 92 H 105/74 06/07/22 06:37 36.5 C 86 16 118/72 Medications Administered Current Inpatient Medications Acetaminophen (Acetaminophen 325 Mg Tab) 650 mg PO Q4H PRN PRN Reason: Headache or Minor Fever Stop: 06/27/22 00:29 Last Admin: 06/04/22 22:32 Dose: 650 mg Al Hydrox/Mg Hydrox/Simethicone (Aluminum/Magnesium Susp 30 Ml Udc) 30 ml PO Q4H PRN PRN Reason: GI Upset Stop: 06/27/22 00:29 Apixaban (Apixaban 5 Mg Tablet) 5 mg PO BID RENU Stop: 07/04/22 09:44 Last Admin: 06/07/22 08:28 Dose: 5 mg Bacitracin (Bacitracin Oint 15 Gm Tube) 1 appln EXT BID RENU Stop: 07/05/22 14:24 Last Admin: 06/07/22 08:28 Dose: 1 appln Dicyclomine HCl (Dicyclomine Hcl 10 Mg Cap) 10 mg PO QID PRN PRN Reason: ABD PAIN Stop: 06/27/22 16:10 Famotidine (Famotidine 20 Mg Tab) 20 mg PO BID PRN PRN Reason: Acid Reflux Stop: 06/27/22 16:10 Gabapentin (Gabapentin 600 Mg Tab) 600 mg PO TID RENU Stop: 06/27/22 20:59 Last Admin: 06/07/22 08:28 Dose: 600 mg Lorazepam (Lorazepam 0.5 Mg Tab) 0.5 mg PO Q6 PRN PRN Reason: Anxiety Stop: 07/03/22 12:07 Last Admin: 06/07/22 12:10 Dose: 0.5 mg Magnesium Hydroxide (Magnesium Hydroxide Susp 30 Ml Udc) 30 ml PO DAILY PRN PRN Reason: Constipation Stop: 06/27/22 00:29 Menthol (Cough Drop (Sugar Free) Wenceslao 24 Wenceslao/1 Box) 1 wenceslao BUCCAL Q1HWA PRN PRN Reason: Sore Throat Stop: 07/05/22 14:23 Last Admin: 06/05/22 14:34 Dose: 1 wenceslao Olanzapine (Olanzapine 5 Mg Tablet) 5 mg PO Q6 PRN PRN Reason: Anxiety/Agitation Stop: 07/01/22 17:59 Last Admin: 06/07/22 11:37 Dose: 5 mg Olanzapine (Olanzapine 5 Mg Tablet) 5 mg PO BID RENU Stop: 07/07/22 11:59 Last Admin: 06/07/22 12:52 Dose: 5 mg Prazosin HCl (Prazosin Hcl 1 Mg Cap) 1 mg PO HS RENU Stop: 06/27/22 21:59 Last Admin: 06/06/22 22:29 Dose: 1 mg Propranolol HCl (Propranolol Hcl 20 Mg Tab) 20 mg PO BID RENU Stop: 06/27/22 20:59 Last Admin: 06/07/22 08:28 Dose: 20 mg Sodium Chloride (Sodium Chloride 0.65% Na Soln 45 Ml ([employer] [place])) 1 - 2 sprays NA PRN PRN PRN Reason: Nasal Dryness/Congestion Stop: 06/27/22 00:29 Trazodone HCl (Trazodone Hcl 50 Mg Tab) 150 mg PO HS [facility] Stop: 06/27/22 21:59 Last Admin: 06/06/22 22:26 Dose: 150 mg
--- NOTE | 2022-06-07 14:22 | Psychiatric Progress Note ---
Date of Service June 07, 2022 Impression / Recommendations Impression The patient is a 21 year old with a history of BPD, PTSD and MDD with psychotic features with multiple recent psychiatric hospitalizations, this is the fifth since mid-March, for SI with plan of overdosing and continuing decompensation in the outpatient setting, no longer working. Converted to 304 on 06/06/22. 06/07/22: intermittent SI. Patient has been hospitalized 6 times in the past year:[facility] for 3 weeks in Apr 2022, [facility] x 3 in March 2022, [facility] May 2021 and would benefit from more extended stay facility. ongoing dysregulation, SI with mild SIB (head tapping) (1) Depression with suicidal ideation: (2) Borderline personality disorder: (3) Eating disorder, unspecified: (4) Acquired asplenia: (5) PTSD (post-traumatic stress disorder): Plan 06/07/22: hospitalist consult appreciated. Routine monitoring for Eliquis. Risks/benefits/alternatives reviewed lithium for mood stabilization. Discussion included but was not limited to risks of toxicity in overdose and need for ongoing blood monitoring (levels, kidney function, and thyroid). The patient was made aware to avoid regular use of NSAIDs as can increase levels and that lithium may need to be held during GI or other illnesses that result in dehydration. Will start Morton 300 mg Bid and titrate. 06/06/22: 304 commitment granted. EKG and CXR reviewed. Routine hospitalist consult for medical clearance. 06/05/22: compliant with Eliquis, [facility] declined, [facility] cannot accept out of [facility] referrals. Treatment team discussion around [facility] referral. Will need CXR, EKG for clearance and 304 commitment so paperwork completed. Patient is voicing agreement with this plan. 06/04/22: d/c 1-on-1, INR less than 2 so change to Eliquis 5 mg BID to improve compliance. [facility] is an acute care facility, will explore referral to [facility]. 06/03/22: patient prefers to d/c Zoloft and monitor for discontinuation syndrome rather than tapering, agreeable to Zyprexa standing order at . Prn Ativan in place of Vistaril which is ineffective. Consider switch from Coumadin to Lovenox as patient cannot afford Eliquis. 06/02/22: d/c 1-on-1, patient's room being moved to [facility]. Consider longer term hospital referral. Keppra has been discontinued, has Zyprexa prn (previously helpful) and Zoloft held for now in case activating. 06/01/22: Continue current medication and tx plan. If she continues to refuse coumadin consider medication over objection. Will place off track betting manager consult given history of unspecified eating disorder which seems to impact her mood significantly. 05/31/22: 303 commitment granted. Decrease Keppra to 250mg BID and then discontinue. Consider taper of gabapentin but fo now helping with anxiety. 05/30/22: Continue to encourage po intake and medications. Pursuing 303 commitment and likely medication over objection if she continues to refuse warfarin. Per discussion with [facility] hospitalist consult provider alternative formulations available for treating the thrombus would be Lovenox 70mg q12h or Eliquis 5mg BID. Prior to admission she was being prescribed warfarin 7.5mg MWF and 5mg SSTTh. 05/29/22: Continue to encourage adherence with medications and po intake. Continue efforts for labwork to check INR. External med rec also notable for venlafaxine 150mg BID. Given maximum dose of sertraline and her ongoing refusal for medications will avoid restarting this given serotonin syndrome risk with concurrent sertraline and now through most of the withdrawal symptoms period/refusing all medications. 05/28/22: The patient was admitted to the [facility] ([facility] mental health unit) on q15 min checks (behavioral with suicide precautions) for safety. The patient will participate in group, recreational, and milieu therapies and will be offered additional individual and family sessions as clinically appropriate. -Continue sertraline 200mg qd, trazodone 150mg qhs, prazosin 1mg qhs, gabapentin 600mg BID -Taper Keppra as concern this is adding to irritability, will reduce to 500mg BID with plan for taper to discontinuation -Continue to monitor and encourage po intake -No available records from the [facility] as discharge paperwork has not yet been completed from her stay Inventory Assets Strengths: supportive relationships, outpatient providers, had period of outpatient stability in the past, manages medical issues Needs: safety and stabilization, medication adjustment, additional coping skills, increased outpatient services Suicide Risk Level Suicide Risk Level: High-Moderate (q15 min suicide checks) Suicide Risk Level Comments: High-Moderate due to severe depression with SI with plan prior to admission and now refusing medications and food but has maintained safe behaviors and able to safety contract and agrees to let nursing/staff know should she develop specific plan, intent or feel unable to remain safe. Risk Factors Assessment : Yes Do You Have Access To A Gun?: No Health Problems: Yes Mental Health Diagnoses: Yes Substance Use Disorders: No Previous Attempt: Yes Previous Psychiatric Hospitalization: Yes Hopelessness: Yes Protective Factors Assessment : Yes Employed: No Stable Relationships: Yes Supportive Family: Yes Interval History Identifying Information MAKENZIE CSOTA is a 21-year-old F who currently lives in [place] with her and in-laws, has a history of MDD with psychotic features, PTSD, BPD, Brock brock disease, superior mesenteric venous thrombus, asplenia and was admitted on 05/27/22 22:55 on a 302 involuntary commitment for SI with plan of overdosing on medications. Chief Complaint "I'm dysregulated, I need more for anxiety, depression, mood swings." Review of Systems Sleep Information Total Hours of Sleep: 7 Meal Information Percent Meal Consumed - Breakfast: 100 Percent Meal Consumed - Lunch: 95 Percent Meal Consumed - Dinner: 100 Subjective Subjective Patient was seen & assessed and interval progress reviewed with nursing and social work. met with patient three times today as she was in bed and requesting to be taken off of safe tray despite rocking her head on the wall last pm and covering her face with safety blanket/pillow last night while refusing hs scheduled meds. She ultimately took. Seems triggered by peers level of depression on unit and was rather demanding. She had agreed to an increase in Zyprexa and then wanted to discuss other antidepressant options. Reviewed her past trials, not all are listed in our records. She seems disinhibited/active SI on multiple antidepressants and I feel a mood stabilizer would be safer. Discussed retrial of lithium vs. depakote or lamictal. Physical Exam Psychiatric Orientation: alert and oriented x 3 Apperance: appropriately dressed and appropriately groomed Eye Contact: good eye contact Motor Behavior: no abnormal motor movements Speech: normal rate/rhythm/volume of speech Affect: + depressed affect and + irritable affect Mood: + depressed mood, + anxious mood and + irritable mood Thought Process: + concrete thought process Thought Content: reality based without delusions Suicidal Thoughts: denies suicidal plan and denies suicidal intent; + reports suicidal thoughts Homicidal Thoughts: denies homicidal thoughts Hallucinations: + auditory hallucinations (but does not appear to be responding to internal stimuli); no visual hallucinations Cognition: recent memory grossly intact, remote memory grossly intact, attention grossly intact and language grossly intact Estimated Intelligence: consistent with education level Vital Signs (Past 24 Hours) Last Vital Signs Temp 36.5 C 06/07/22 06:37 Pulse 92 H 06/07/22 06:37 Resp 16 06/07/22 06:37 BP 105/74 06/07/22 06:37 Pulse Ox 97 05/31/22 20:47 O2 Del Method 05/30/22 21:00 Results & Data ([facility]) Current Inpatient Medications Current Inpatient Medications: Current Inpatient Medications Acetaminophen (Acetaminophen 325 Mg Tab) 650 mg PO Q4H PRN PRN Reason: Headache or Minor Fever Stop: 06/27/22 00:29 Last Admin: 06/04/22 22:32 Dose: 650 mg Al Hydrox/Mg Hydrox/Simethicone (Aluminum/Magnesium Susp 30 Ml Udc) 30 ml PO Q4H PRN PRN Reason: GI Upset Stop: 06/27/22 00:29 Apixaban (Apixaban 5 Mg Tablet) 5 mg PO BID RENU Stop: 07/04/22 09:44 Last Admin: 06/07/22 08:28 Dose: 5 mg Bacitracin (Bacitracin Oint 15 Gm Tube) 1 appln EXT BID RENU Stop: 07/05/22 14:24 Last Admin: 06/07/22 08:28 Dose: 1 appln Dicyclomine HCl (Dicyclomine Hcl 10 Mg Cap) 10 mg PO QID PRN PRN Reason: ABD PAIN Stop: 06/27/22 16:10 Famotidine (Famotidine 20 Mg Tab) 20 mg PO BID PRN PRN Reason: Acid Reflux Stop: 06/27/22 16:10 Gabapentin (Gabapentin 600 Mg Tab) 600 mg PO TID RENU Stop: 06/27/22 20:59 Last Admin: 06/07/22 08:28 Dose: 600 mg Lorazepam (Lorazepam 0.5 Mg Tab) 0.5 mg PO Q6 PRN PRN Reason: Anxiety Stop: 07/03/22 12:07 Last Admin: 06/07/22 12:10 Dose: 0.5 mg Magnesium Hydroxide (Magnesium Hydroxide Susp 30 Ml Udc) 30 ml PO DAILY PRN PRN Reason: Constipation Stop: 06/27/22 00:29 Menthol (Cough Drop (Sugar Free) Wenceslao 24 Wenceslao/1 Box) 1 wenceslao BUCCAL Q1HWA PRN PRN Reason: Sore Throat Stop: 07/05/22 14:23 Last Admin: 06/05/22 14:34 Dose: 1 wenceslao Olanzapine (Olanzapine 5 Mg Tablet) 5 mg PO Q6 PRN PRN Reason: Anxiety/Agitation Stop: 07/01/22 17:59 Last Admin: 06/07/22 11:37 Dose: 5 mg Olanzapine (Olanzapine 5 Mg Tablet) 5 mg PO BID RENU Stop: 07/07/22 11:59 Last Admin: 06/07/22 12:52 Dose: 5 mg Prazosin HCl (Prazosin Hcl 1 Mg Cap) 1 mg PO HS RENU Stop: 06/27/22 21:59 Last Admin: 06/06/22 22:29 Dose: 1 mg Propranolol HCl (Propranolol Hcl 20 Mg Tab) 20 mg PO BID RENU Stop: 06/27/22 20:59 Last Admin: 06/07/22 08:28 Dose: 20 mg Sodium Chloride (Sodium Chloride 0.65% Na Soln 45 Ml ([place])) 1 - 2 sprays NA PRN PRN PRN Reason: Nasal Dryness/Congestion Stop: 06/27/22 00:29 Trazodone HCl (Trazodone Hcl 50 Mg Tab) 150 mg PO HS RENU Stop: 06/27/22 21:59 Last Admin: 06/06/22 22:26 Dose: 150 mg Mental Health & Subst Abuse Tx Psychiatrist Name of Psychiatrist: [facility] Psychiatrist's Date of Appointment with Psychiatrist: 06/06/22 Time of Appointment with Psychiatrist: 2:20PM Psychiatric Appointment Comment: [address] [place] [address] Therapist Name of Therapist: Jazzmine Galvan Therapist's Date of Therapist Appointment: 06/14/22 Time of Therapist Appointment: 9 AM Therapy Appointment Comment: [address] [facility], [address], [place] [address] Tank Tender Name of Tank Tender: Andreea Soares Phone Number for Tank Tender: [phone] Case Management Appointment Comment: Please resume your normal schedule. Post Discharge Appointments Primary Care Physician Name Of Family Doctor: Bubba Chaparro [facility] Date of Appointment with PCP: 06/06/22 Time of Appointment with PCP: 10:45 AM Provider Appointment Comment: [address] [place] [address] Contact Information Discharge Discharge [address]: [address] [place] [id number]
[2022-06-07] MEDS: PRAZOSIN HCL 1 MG CAP PO SCH (21:14)
[2022-06-07] MEDS: LITHIUM CARBONATE SLOW REL 300 MG TAB PO SCH (21:15)
[2022-06-07] MEDS: traZODone HCL 50 MG TAB PO SCH (21:41)
[2022-06-08] MEDS: PROPRANOLOL HCL 20 MG TAB PO SCH ×2 (08:07→20:46)
[2022-06-08] MEDS: BACITRACIN OINT 15 GM TUBE EXT SCH ×2 (08:07→20:47)
[2022-06-08] MEDS: LITHIUM CARBONATE SLOW REL 300 MG TAB PO SCH ×2 (08:07→20:46)
[2022-06-08] MEDS: APIXABAN 5 MG TABLET PO SCH ×2 (08:08→20:46)
[2022-06-08] MEDS: GABAPENTIN 600 MG TAB PO SCH ×3 (08:08→20:46)
[2022-06-08] MEDS: OLANZapine 5 MG TABLET PO SCH ×2 (08:08→20:46)
--- NOTE | 2022-06-08 15:33 | Psychiatric Progress Note ---
Date of Service June 08, 2022 Impression / Recommendations Impression The patient is a 21 year old with a history of BPD, PTSD and MDD with psychotic features with multiple recent psychiatric hospitalizations, this is the fifth since mid-March, for SI with plan of overdosing and continuing decompensation in the outpatient setting, no longer working. Converted to 304 on 06/06/22. Patient has been hospitalized 6 times in the past year:[facility] for 3 weeks in Apr 2022, [facility] x 3 in March 2022, [facility] May 2021 and would benefit from more extended stay facility. ongoing dysregulation, SI with mild SIB (head tapping) 06/08/22: less SIB/lability in past 24 hrs. (1) Depression with suicidal ideation: (2) Borderline personality disorder: (3) Eating disorder, unspecified: (4) Acquired asplenia: (5) PTSD (post-traumatic stress disorder): Plan 06/08/22: d/c safe tray, continue current meds and tx plan. 06/07/22: hospitalist consult appreciated. Routine monitoring for Eliquis. Risks/benefits/alternatives reviewed lithium for mood stabilization. Discussion included but was not limited to risks of toxicity in overdose and need for ongoing blood monitoring (levels, kidney function, and thyroid). The patient was made aware to avoid regular use of NSAIDs as can increase levels and that lithium may need to be held during GI or other illnesses that result in dehydration. Will start [place] 300 mg Bid and titrate. 06/06/22: 304 commitment granted. EKG and CXR reviewed. Routine hospitalist consult for medical clearance. 06/05/22: compliant with [facility], [facility] declined, [facility] cannot accept out of [facility] referrals. Treatment team discussion around [facility] referral. Will need CXR, EKG for clearance and 304 commitment so paperwork completed. Patient is voicing agreement with this plan. 06/04/22: d/c 1-on-1, INR less than 2 so change to Eliquis 5 mg BID to improve compliance. [facility] is an acute care facility, will explore referral to [place]. 06/03/22: patient prefers to d/c Zoloft and monitor for discontinuation syndrome rather than tapering, agreeable to Zyprexa standing order at . Prn Ativan in place of Vistaril which is ineffective. Consider switch from Coumadin to Lovenox as patient cannot afford Eliquis. 06/02/22: d/c 1-on-1, patient's room being moved to [facility]. Consider longer term hospital referral. Keppra has been discontinued, has Zyprexa prn (previously helpful) and Zoloft held for now in case activating. 06/01/22: Continue current medication and tx plan. If she continues to refuse coumadin consider medication over objection. Will place electrical installation inspector consult given history of unspecified eating disorder which seems to impact her mood significantly. 05/31/22: 303 commitment granted. Decrease Keppra to 250mg BID and then discontinue. Consider taper of gabapentin but fo now helping with anxiety. 05/30/22: Continue to encourage po intake and medications. Pursuing 303 commitment and likely medication over objection if she continues to refuse warfarin. Per discussion with [facility] hospitalist consult provider alternative formulations available for treating the thrombus would be Lovenox 70mg q12h or Eliquis 5mg BID. Prior to admission she was being prescribed warfarin 7.5mg MWF and 5mg SSTTh. 05/29/22: Continue to encourage adherence with medications and po intake. Continue efforts for labwork to check INR. External med rec also notable for venlafaxine 150mg BID. Given maximum dose of sertraline and her ongoing refusal for medications will avoid restarting this given serotonin syndrome risk with concurrent sertraline and now through most of the withdrawal symptoms period/refusing all medications. 05/28/22: The patient was admitted to the [facility] ([facility]) on q15 min checks (behavioral with suicide precautions) for safety. The patient will participate in group, recreational, and milieu therapies and will be offered additional individual and family sessions as clinically appropriate. -Continue sertraline 200mg qd, trazodone 150mg qhs, prazosin 1mg qhs, gabapentin 600mg BID -Taper Keppra as concern this is adding to irritability, will reduce to 500mg BID with plan for taper to discontinuation -Continue to monitor and encourage po intake -No available records from the [facility] as discharge paperwork has not yet been completed from her stay Inventory Assets Strengths: supportive relationships, outpatient providers, had period of outpatient stability in the past, manages medical issues Needs: safety and stabilization, medication adjustment, additional coping skills, increased outpatient services Suicide Risk Level Suicide Risk Level: High-Moderate (q15 min suicide checks) Suicide Risk Level Comments: High-Moderate due to severe depression with SI with plan prior to admission and now refusing medications and food but has maintained safe behaviors and able to safety contract and agrees to let nursing/staff know should she develop specific plan, intent or feel unable to remain safe. Risk Factors Assessment : Yes Do You Have Access To A Gun?: No Health Problems: Yes Mental Health Diagnoses: Yes Substance Use Disorders: No Previous Attempt: Yes Previous Psychiatric Hospitalization: Yes Hopelessness: Yes Protective Factors Assessment : Yes Employed: No Stable Relationships: Yes Supportive Family: Yes Interval History Identifying Information MAKENZIE COSTA is a 21-year-old F who currently lives in [place] with her and in-laws, has a history of MDD with psychotic features, PTSD, BPD, Brock brock disease, superior mesenteric venous thrombus, asplenia and was admitted on 05/27/22 22:55 on a 302 involuntary commitment for SI with plan of overdosing on medications. Chief Complaint "can I be off safe tray?" Review of Systems Sleep Information Total Hours of Sleep: 6 Sleep Comments: pt on q-15 minute checks patient was placed on 1 to 1 Meal Information Percent Meal Consumed - Breakfast: 90 Percent Meal Consumed - Lunch: 100 Percent Meal Consumed - Dinner: 45 Subjective Subjective Patient was seen & assessed and interval progress reviewed with treatment team. behaviorally appropriate last pm. Physical Exam Psychiatric Orientation: alert and oriented x 3 Apperance: appropriately dressed and appropriately groomed Eye Contact: good eye contact Motor Behavior: no abnormal motor movements Speech: normal rate/rhythm/volume of speech Affect: + flat affect and mood congruent with affect Mood: + depressed mood and + anxious mood Thought Process: + concrete thought process Suicidal Thoughts: denies suicidal plan and denies suicidal intent; + reports suicidal thoughts Homicidal Thoughts: denies homicidal thoughts Hallucinations: + auditory hallucinations (but does not appear to be responding to internal stimuli); no visual hallucinations Cognition: recent memory grossly intact, remote memory grossly intact, attention grossly intact and language grossly intact Estimated Intelligence: consistent with education level Insight: + limited insight Judgement: + limited judgement Vital Signs (Past 24 Hours) Last Vital Signs Temp 36.9 C 06/08/22 06:43 Pulse 92 H 06/08/22 06:45 Resp 16 06/08/22 06:43 BP 109/69 06/08/22 06:45 Pulse Ox 97 05/31/22 20:47 O2 Del Method 05/30/22 21:00 Results & Data ([facility]) Current Inpatient Medications Current Inpatient Medications: Current Inpatient Medications Acetaminophen (Acetaminophen 325 Mg Tab) 650 mg PO Q4H PRN PRN Reason: Headache or Minor Fever Stop: 06/27/22 00:29 Last Admin: 06/04/22 22:32 Dose: 650 mg Al Hydrox/Mg Hydrox/Simethicone (Aluminum/Magnesium Susp 30 Ml Udc) 30 ml PO Q4H PRN PRN Reason: GI Upset Stop: 06/27/22 00:29 Apixaban (Apixaban 5 Mg Tablet) 5 mg PO BID [facility] Stop: 07/04/22 09:44 Last Admin: 06/08/22 08:08 Dose: 5 mg Bacitracin (Bacitracin Oint 15 Gm Tube) 1 appln EXT BID RENU Stop: 07/05/22 14:24 Last Admin: 06/08/22 08:07 Dose: 1 appln Dicyclomine HCl (Dicyclomine Hcl 10 Mg Cap) 10 mg PO QID PRN PRN Reason: ABD PAIN Stop: 06/27/22 16:10 Famotidine (Famotidine 20 Mg Tab) 20 mg PO BID PRN PRN Reason: Acid Reflux Stop: 06/27/22 16:10 Gabapentin (Gabapentin 600 Mg Tab) 600 mg PO TID RENU Stop: 06/27/22 20:59 Last Admin: 06/08/22 13:30 Dose: 600 mg [place] Carbonate ([place] Carbonate Slow Rel 300 Mg Tab) 300 mg PO BID RENU Stop: 07/07/22 20:59 Last Admin: 06/08/22 08:07 Dose: 300 mg Lorazepam (Lorazepam 0.5 Mg Tab) 0.5 mg PO Q6 PRN PRN Reason: Anxiety Stop: 07/03/22 12:07 Last Admin: 06/07/22 12:10 Dose: 0.5 mg Magnesium Hydroxide (Magnesium Hydroxide Susp 30 Ml Udc) 30 ml PO DAILY PRN PRN Reason: Constipation Stop: 06/27/22 00:29 Menthol (Cough Drop (Sugar Free) [place] 24 [place]/1 Box) 1 wenceslao BUCCAL Q1HWA PRN PRN Reason: Sore Throat Stop: 07/05/22 14:23 Last Admin: 06/05/22 14:34 Dose: 1 wenceslao Olanzapine (Olanzapine 5 Mg Tablet) 5 mg PO Q6 PRN PRN Reason: Anxiety/Agitation Stop: 07/01/22 17:59 Last Admin: 06/07/22 11:37 Dose: 5 mg Olanzapine (Olanzapine 5 Mg Tablet) 5 mg PO BID RENU Stop: 07/07/22 11:59 Last Admin: 06/08/22 08:08 Dose: 5 mg Prazosin HCl (Prazosin Hcl 1 Mg Cap) 1 mg PO HS RENU Stop: 06/27/22 21:59 Last Admin: 06/07/22 21:14 Dose: 1 mg Propranolol HCl (Propranolol Hcl 20 Mg Tab) 20 mg PO BID RENU Stop: 06/27/22 20:59 Last Admin: 06/08/22 08:07 Dose: 20 mg Sodium Chloride (Sodium Chloride 0.65% Na Soln 45 Ml ([place])) 1 - 2 sprays NA PRN PRN PRN Reason: Nasal Dryness/Congestion Stop: 06/27/22 00:29 Trazodone HCl (Trazodone Hcl 50 Mg Tab) 150 mg PO HS RENU Stop: 06/27/22 21:59 Last Admin: 06/07/22 21:41 Dose: 150 mg Mental Health & Subst Abuse Tx Psychiatrist Name of Psychiatrist: [employer] Psychiatrist's Date of Appointment with Psychiatrist: 06/06/22 Time of Appointment with Psychiatrist: 2:20PM Psychiatric Appointment Comment: [address] [place] [address] Therapist Name of Therapist: Jazzmine Galvan Therapist's Date of Therapist Appointment: 06/14/22 Time of Therapist Appointment: 9 AM Therapy Appointment Comment: [address], [address], [place] [address] Homicide Squad Commanding Officer Name of Homicide Squad Commanding Officer: Andreea Soares Phone Number for Homicide Squad Commanding Officer: [phone] Case Management Appointment Comment: Please resume your normal schedule. Post Discharge Appointments Primary Care Physician Name Of Family Doctor: Bubba Chaparro Primary Care Date of Appointment with PCP: 06/06/22 Time of Appointment with PCP: 10:45 AM Provider Appointment Comment: [address], [place] [address] Contact Information Discharge Discharge Address: [address] [place], [place] [address] [id number]
[2022-06-08] MEDS: traZODone HCL 50 MG TAB PO SCH (20:45)
[2022-06-08] MEDS: PRAZOSIN HCL 1 MG CAP PO SCH (20:45)
[2022-06-08] MEDS: LORazepam 0.5 MG TAB PO PRN (20:45)
[2022-06-09] MEDS: BACITRACIN OINT 15 GM TUBE EXT SCH ×2 (09:00→20:16)
[2022-06-09] MEDS: APIXABAN 5 MG TABLET PO SCH ×2 (09:00→20:16)
[2022-06-09] MEDS: LITHIUM CARBONATE SLOW REL 300 MG TAB PO SCH ×2 (09:01→20:16)
[2022-06-09] MEDS: GABAPENTIN 600 MG TAB PO SCH ×3 (09:01→20:16)
[2022-06-09] MEDS: PROPRANOLOL HCL 20 MG TAB PO SCH ×2 (09:01→20:16)
[2022-06-09] MEDS: OLANZapine 5 MG TABLET PO SCH ×2 (09:01→20:16)
--- NOTE | 2022-06-09 09:44 | Psychiatric Progress Note ---
Date of Service June 09, 2022 Impression / Recommendations Impression The patient is a 21 year old with a history of BPD, PTSD and MDD with psychotic features with multiple recent psychiatric hospitalizations, this is the fifth since mid-March, for SI with plan of overdosing and continuing decompensation in the outpatient setting, no longer working. Converted to 304 on 06/06/22. Patient has been hospitalized 6 times in the past year:[facility] for 3 weeks in Apr 2022, [facility] x 3 in March 2022, [facility] May 2021 and would benefit from more extended stay facility. Ongoing dysregulation, SI with mild SIB (head tapping) 06/09/22: ongoing depression and SI with self-harm urges but hasn't acted on this today or yesterday. Tolerating medications without side effects. Reviewed ACT approach to some of her depression symptoms. (1) Depression with suicidal ideation: (2) Borderline personality disorder: (3) Eating disorder, unspecified: (4) Acquired asplenia: (5) PTSD (post-traumatic stress disorder): Plan 06/09/22: Continue with current medications and tx plan. 06/08/22: d/c safe tray, continue current meds and tx plan. 06/07/22: hospitalist consult appreciated. Routine monitoring for Eliquis. Risks/benefits/alternatives reviewed lithium for mood stabilization. Discussion included but was not limited to risks of toxicity in overdose and need for ongoing blood monitoring (levels, kidney function, and thyroid). The patient was made aware to avoid regular use of NSAIDs as can increase levels and that lithium may need to be held during GI or other illnesses that result in dehydration. Will start [place] 300 mg Bid and titrate. 06/06/22: 304 commitment granted. EKG and CXR reviewed. Routine hospitalist consult for medical clearance. 06/05/22: compliant with Yehuda, [place] declined, [facility] cannot accept out of [facility] referrals. Treatment team discussion around [facility] referral. Will need CXR, EKG for clearance and 304 commitment so paperwork completed. Patient is voicing agreement with this plan. 06/04/22: d/c 1-on-1, INR less than 2 so change to Eliquis 5 mg BID to improve compliance. [facility] is an acute care facility, will explore referral to [place]. 06/03/22: patient prefers to d/c Zoloft and monitor for discontinuation syndrome rather than tapering, agreeable to Zyprexa standing order at hs. Prn Ativan in place of Vistaril which is ineffective. Consider switch from Coumadin to Lovenox as patient cannot afford Eliquis. 06/02/22: d/c 1-on-1, [facility] Consider longer term hospital referral. Keppra has been discontinued, has Zyprexa prn (previously helpful) and Zoloft held for now in case activating. 06/01/22: Continue current medication and tx plan. If she continues to refuse coumadin consider medication over objection. Will place mechanical adjuster consult given history of unspecified eating disorder which seems to impact her mood significantly. 05/31/22: 303 commitment granted. Decrease Keppra to 250mg BID and then discontinue. Consider taper of gabapentin but fo now helping with anxiety. 05/30/22: Continue to encourage po intake and medications. Pursuing 303 commitment and likely medication over objection if she continues to refuse warfarin. Per discussion with [facility] hospitalist consult provider alternative formulations available for treating the thrombus would be Lovenox 70mg q12h or Eliquis 5mg BID. Prior to admission she was being prescribed warfarin 7.5mg MWF and 5mg SSTTh. 05/29/22: Continue to encourage adherence with medications and po intake. Continue efforts for labwork to check INR. External med rec also notable for venlafaxine 150mg BID. Given maximum dose of sertraline and her ongoing refusal for medications will avoid restarting this given serotonin syndrome risk with concurrent sertraline and now through most of the withdrawal symptoms period/refusing all medications. 05/28/22: The patient was admitted to the [facility] on q15 min checks (behavioral with suicide precautions) for safety. The patient will participate in group, recreational, and milieu therapies and will be offered additional individual and family sessions as clinically appropriate. -Continue sertraline 200mg qd, trazodone 150mg qhs, prazosin 1mg qhs, gabapentin 600mg BID -Taper Keppra as concern this is adding to irritability, will reduce to 500mg BID with plan for taper to discontinuation -Continue to monitor and encourage po intake -No available records from the [facility] as discharge paperwork has not yet been completed from her stay Inventory Assets Strengths: supportive relationships, outpatient providers, had period of outpatient stability in the past, manages medical issues Needs: safety and stabilization, medication adjustment, additional coping skills, increased outpatient services Suicide Risk Level Suicide Risk Level: High-Moderate (q15 min suicide checks) Suicide Risk Level Comments: High-Moderate due to severe depression with SI with plan prior to admission and intermittent ongoing SI and eopisodes of self-harm but has maintained safe behaviors and able to safety contract and agrees to let nursing/staff know should she develop specific plan, intent or feel unable to remain safe. Risk Factors Assessment : Yes Do You Have Access To A Gun?: No Health Problems: Yes Mental Health Diagnoses: Yes Substance Use Disorders: No Previous Attempt: Yes Previous Psychiatric Hospitalization: Yes Hopelessness: Yes Protective Factors Assessment : Yes Employed: No Stable Relationships: Yes Supportive Family: Yes Interval History Identifying Information MAKENZIE COSTA is a 21-year-old F who currently lives in [place] with her and in-laws, has a history of MDD with psychotic features, PTSD, BPD, Brokc brock disease, superior mesenteric venous thrombus, asplenia and was admitted on 05/27/22 22:55 on a 302 involuntary commitment for SI with plan of overdosing on medications. Chief Complaint "I'm ok". Review of Systems Sleep Information Total Hours of Sleep: 9.5 Sleep Comments: pt on q-15 minute checks patient was placed on 1 to 1 Meal Information Percent Meal Consumed - Breakfast: 90 Percent Meal Consumed - Lunch: 100 Percent Meal Consumed - Dinner: 75 Subjective Subjective Patient was seen & assessed and interval progress reviewed with treatment team nursing and social work. No unsafe behaviors overnight. Still with safety blanket and safety pillow. Reports that her mood is improving but "the depression is still bad if that makes any sense". Clarified that she feels she can have moments of improvement but then feels very unmotivated with low energy and anhedonia and feels very hopeless and suicidal again. Ongoing intermittent SI and strong urges to self-harm via scratching but hasn't acted on these and able to safety contract to alert staff should this intensify or she feel unable to remain safe. Physical Exam Psychiatric Orientation: alert and oriented x 3 Apperance: appropriately dressed and appropriately groomed Eye Contact: good eye contact Motor Behavior: no abnormal motor movements Speech: normal rate/rhythm/volume of speech Affect: + flat affect Mood: + depressed mood and + anxious mood Thought Process: + concrete thought process Thought Content: reality based without delusions Suicidal Thoughts: denies suicidal plan and denies suicidal intent; + reports suicidal thoughts Homicidal Thoughts: denies homicidal thoughts Hallucinations: no auditory hallucinations and no visual hallucinations Cognition: recent memory grossly intact, remote memory grossly intact, attention grossly intact and language grossly intact Estimated Intelligence: consistent with education level Insight: + limited insight Judgement: + limited judgement Vital Signs (Past 24 Hours) Last Vital Signs Temp 36.7 C 06/09/22 06:00 Pulse 96 H 06/09/22 09:03 Resp 18 06/09/22 06:00 BP 106/75 06/09/22 09:03 Pulse Ox 97 05/31/22 20:47 O2 Del Method 05/30/22 21:00 Results & Data ([facility]) Current Inpatient Medications Current Inpatient Medications: Current Inpatient Medications Acetaminophen (Acetaminophen 325 Mg Tab) 650 mg PO Q4H PRN PRN Reason: Headache or Minor Fever Stop: 06/27/22 00:29 Last Admin: 06/04/22 22:32 Dose: 650 mg Al Hydrox/Mg Hydrox/Simethicone (Aluminum/Magnesium Susp 30 Ml Udc) 30 ml PO Q4H PRN PRN Reason: GI Upset Stop: 06/27/22 00:29 Apixaban (Apixaban 5 Mg Tablet) 5 mg PO BID [facility] Stop: 07/04/22 09:44 Last Admin: 06/09/22 09:00 Dose: 5 mg Bacitracin (Bacitracin Oint 15 Gm Tube) 1 appln EXT BID RENU Stop: 07/05/22 14:24 Last Admin: 06/09/22 09:00 Dose: 1 appln Dicyclomine HCl (Dicyclomine Hcl 10 Mg Cap) 10 mg PO QID PRN PRN Reason: ABD PAIN Stop: 06/27/22 16:10 Famotidine (Famotidine 20 Mg Tab) 20 mg PO BID PRN PRN Reason: Acid Reflux Stop: 06/27/22 16:10 Gabapentin (Gabapentin 600 Mg Tab) 600 mg PO TID RENU Stop: 06/27/22 20:59 Last Admin: 06/09/22 09:01 Dose: 600 mg [place] Carbonate ([place] Carbonate Slow Rel 300 Mg Tab) 300 mg PO BID RENU Stop: 07/07/22 20:59 Last Admin: 06/09/22 09:01 Dose: 300 mg Lorazepam (Lorazepam 0.5 Mg Tab) 0.5 mg PO Q6 PRN PRN Reason: Anxiety Stop: 07/03/22 12:07 Last Admin: 06/08/22 20:45 Dose: 0.5 mg Magnesium Hydroxide (Magnesium Hydroxide Susp 30 Ml Udc) 30 ml PO DAILY PRN PRN Reason: Constipation Stop: 06/27/22 00:29 Menthol (Cough Drop (Sugar Free) W[place]lao 24 [place]/1 Box) 1 wenceslao BUCCAL Q1HWA PRN PRN Reason: Sore Throat Stop: 07/05/22 14:23 Last Admin: 06/05/22 14:34 Dose: 1 wenceslao Olanzapine (Olanzapine 5 Mg Tablet) 5 mg PO Q6 PRN PRN Reason: Anxiety/Agitation Stop: 07/01/22 17:59 Last Admin: 06/07/22 11:37 Dose: 5 mg Olanzapine (Olanzapine 5 Mg Tablet) 5 mg PO BID RENU Stop: 07/07/22 11:59 Last Admin: 06/09/22 09:01 Dose: 5 mg Prazosin HCl (Prazosin Hcl 1 Mg Cap) 1 mg PO HS RENU Stop: 06/27/22 21:59 Last Admin: 06/08/22 20:45 Dose: 1 mg Propranolol HCl (Propranolol Hcl 20 Mg Tab) 20 mg PO BID RENU Stop: 06/27/22 20:59 Last Admin: 06/09/22 09:01 Dose: 20 mg Sodium Chloride (Sodium Chloride 0.65% Na Soln 45 Ml ([place])) 1 - 2 sprays NA PRN PRN PRN Reason: Nasal Dryness/Congestion Stop: 06/27/22 00:29 Trazodone HCl (Trazodone Hcl 50 Mg Tab) 150 mg PO HS RENU Stop: 06/27/22 21:59 Last Admin: 06/08/22 20:45 Dose: 150 mg Mental Health & Subst Abuse Tx Psychiatrist Name of Psychiatrist: [id number] Psychiatrist's Date of Appointment with Psychiatrist: 06/06/22 Time of Appointment with Psychiatrist: 2:20PM Psychiatric Appointment Comment: [address] [place] [address] Therapist Name of Therapist: Jazzmine Galvan Therapist's Date of Therapist Appointment: 06/14/22 Time of Therapist Appointment: 9 AM Therapy Appointment Comment: [address], [address], [place] [address] Athletic Training Internship Name of Athletic Training Internship: Andreea Soares Phone Number for Athletic Training Internship: [phone] Case Management Appointment Comment: Please resume your normal schedule. Post Discharge Appointments Primary Care Physician Name Of Family Doctor: Bubba Chaparro Primary Care Date of Appointment with PCP: 06/06/22 Time of Appointment with PCP: 10:45 AM Provider Appointment Comment: [address] [facility], [place] [address] Contact Information Discharge Discharge Address: [address] [place] [id number]
[2022-06-09] MEDS: LORazepam 0.5 MG TAB PO PRN (13:16)
[2022-06-09] MEDS: PRAZOSIN HCL 1 MG CAP PO SCH (20:16)
[2022-06-09] MEDS: traZODone HCL 50 MG TAB PO SCH (20:16)
[2022-06-10] MEDS: APIXABAN 5 MG TABLET PO SCH ×2 (07:57→21:39)
[2022-06-10] MEDS: GABAPENTIN 600 MG TAB PO SCH ×3 (07:58→21:40)
[2022-06-10] MEDS: BACITRACIN OINT 15 GM TUBE EXT SCH ×2 (07:58→21:40)
[2022-06-10] MEDS: OLANZapine 5 MG TABLET PO SCH ×2 (07:58→21:40)
[2022-06-10] MEDS: LITHIUM CARBONATE SLOW REL 300 MG TAB PO SCH ×2 (07:58→21:40)
[2022-06-10] MEDS: PROPRANOLOL HCL 20 MG TAB PO SCH ×2 (07:58→21:41)
--- NOTE | 2022-06-10 09:27 | Psychiatric Progress Note ---
Date of Service June 10, 2022 Impression / Recommendations Impression The patient is a 21 year old with a history of BPD, PTSD and MDD with psychotic features with multiple recent psychiatric hospitalizations, this is the fifth since mid-March, for SI with plan of overdosing and continuing decompensation in the outpatient setting, no longer working. Converted to 304 on 06/06/22. Patient has been hospitalized 6 times in the past year:[facility] for 3 weeks in Apr 2022, [facility] x 3 in March 2022, [facility] May 2021 and would benefit from more extended stay facility. Ongoing dysregulation, SI with mild SIB (head tapping) 06/10/22: ongoing depression and SI with self-harm urges and increased feelings of worthlessness today (1) Depression with suicidal ideation: (2) Borderline personality disorder: (3) Eating disorder, unspecified: (4) Acquired asplenia: (5) PTSD (post-traumatic stress disorder): Plan 06/10/22: Continue current medications and tx plan. Consider further titration of lithium tomorrow. 06/09/22: Continue with current medications and tx plan. 06/08/22: d/c safe tray, continue current meds and tx plan. 06/07/22: hospitalist consult appreciated. Routine monitoring for Eliquis. Risks/benefits/alternatives reviewed lithium for mood stabilization. Discussion included but was not limited to risks of toxicity in overdose and need for ongoing blood monitoring (levels, kidney function, and thyroid). The patient was made aware to avoid regular use of NSAIDs as can increase levels and that lithium may need to be held during GI or other illnesses that result in dehydration. Will start Kaplan 300 mg Bid and titrate. 06/06/22: 304 commitment granted. EKG and CXR reviewed. Routine hospitalist consult for medical clearance. 06/05/22: compliant with Dustin Blackman declined, [facility] cannot accept out of [facility] referrals. Treatment team discussion around [facility] hospital referral. Will need CXR, EKG for clearance and 304 commitment so paperwork completed. Patient is voicing agreement with this plan. 06/04/22: d/c 1-on-1, INR less than 2 so change to Eliquis 5 mg BID to improve compliance. [facility] is an acute care facility, will explore referral to [place]. 06/03/22: patient prefers to d/c Zoloft and monitor for discontinuation syndrome rather than tapering, agreeable to Zyprexa standing order at hs. Prn Ativan in place of Vistaril which is ineffective. Consider switch from Coumadin to Lovenox as patient cannot afford Eliquis. 06/02/22: d/c 1-on-1, patient's room being moved to [facility]. Consider longer term hospital referral. Keppra has been discontinued, has Zyprexa prn (previously helpful) and Zoloft held for now in case activating. 06/01/22: Continue current medication and tx plan. If she continues to refuse coumadin consider medication over objection. Will place repairer typewriter consult given history of unspecified eating disorder which seems to impact her mood significantly. 05/31/22: 303 commitment granted. Decrease Keppra to 250mg BID and then discontinue. Consider taper of gabapentin but fo now helping with anxiety. 05/30/22: Continue to encourage po intake and medications. Pursuing 303 commitment and likely medication over objection if she continues to refuse warfarin. Per discussion with [facility] hospitalist consult provider alternative formulations available for treating the thrombus would be Lovenox 70mg q12h or Eliquis 5mg BID. Prior to admission she was being prescribed warfarin 7.5mg MWF and 5mg SSTTh. 05/29/22: Continue to encourage adherence with medications and po intake. Continue efforts for labwork to check INR. External med rec also notable for venlafaxine 150mg BID. Given maximum dose of sertraline and her ongoing refusal for medications will avoid restarting this given serotonin syndrome risk with concurrent sertraline and now through most of the withdrawal symptoms period/refusing all medications. 05/28/22: The patient was admitted to the [facility] ([facility]) on q15 min checks (behavioral with suicide precautions) for safety. The patient will participate in group, recreational, and milieu therapies and will be offered additional individual and family sessions as clinically appropriate. -Continue sertraline 200mg qd, trazodone 150mg qhs, prazosin 1mg qhs, gabapentin 600mg BID -Taper Keppra as concern this is adding to irritability, will reduce to 500mg BID with plan for taper to discontinuation -Continue to monitor and encourage po intake -No available records from the [facility] as discharge paperwork has not yet been completed from her stay Inventory Assets Strengths: supportive relationships, outpatient providers, had period of outpatient stability in the past, manages medical issues Needs: safety and stabilization, medication adjustment, additional coping skills, increased outpatient services Suicide Risk Level Suicide Risk Level: High-Moderate (q15 min suicide checks) Suicide Risk Level Comments: High-Moderate due to severe depression with SI with plan prior to admission and intermittent ongoing SI and eopisodes of self-harm but has maintained safe behaviors and able to safety contract and agrees to let nursing/staff know should she develop specific plan, intent or feel unable to remain safe. Risk Factors Assessment : Yes Do You Have Access To A Gun?: No Health Problems: Yes Mental Health Diagnoses: Yes Substance Use Disorders: No Previous Attempt: Yes Previous Psychiatric Hospitalization: Yes Hopelessness: Yes Protective Factors Assessment : Yes Employed: No Stable Relationships: Yes Supportive Family: Yes Interval History Identifying Information MAKENZIE COSTA is a 21-year-old F who currently lives in [place] with her and in-laws, has a history of MDD with psychotic features, PTSD, BPD, Brock brock disease, superior mesenteric venous thrombus, asplenia and was admitted on 05/27/22 22:55 on a 302 involuntary commitment for SI with plan of overdosing on medications. Chief Complaint "I'm dealing with a lot of suicidal thoughts today". Review of Systems Sleep Information Total Hours of Sleep: 8.25 Sleep Comments: pt on q-15 minute checks patient was placed on 1 to 1 Meal Information Percent Meal Consumed - Breakfast: 90 Percent Meal Consumed - Lunch: 100 Percent Meal Consumed - Dinner: 100 Subjective Subjective Patient was seen & assessed and interval progress reviewed with treatment team nursing and social work. Rated her mood very low and depressed at community meeting. Slept well. Had anxiety yesterday afternoon and got prn ativan. Today more isolative to her room, increased depression due to increased SI today. She feels SI comes on when she feels worthless and due to "feeling like I'm a failure at everything" and "thinking I won't ever get better". Practiced some ACT strategies. Physical Exam Psychiatric Orientation: alert and oriented x 3 Apperance: appropriately dressed and appropriately groomed Eye Contact: good eye contact Motor Behavior: no abnormal motor movements Speech: normal rate/rhythm/volume of speech Affect: + depressed affect Mood: + depressed mood Thought Process: goal directed thought process and + concrete thought process Thought Content: reality based without delusions and + worthlessness Suicidal Thoughts: denies suicidal plan and denies suicidal intent; + reports suicidal thoughts Homicidal Thoughts: denies homicidal thoughts Hallucinations: no auditory hallucinations and no visual hallucinations Cognition: recent memory grossly intact, remote memory grossly intact, attention grossly intact and language grossly intact Estimated Intelligence: consistent with education level Insight: + limited insight Judgement: + limited judgement Vital Signs (Past 24 Hours) Last Vital Signs Temp 36.9 C 06/10/22 06:00 Pulse 72 06/10/22 07:56 Resp 18 06/10/22 06:00 BP 106/73 06/10/22 07:56 Pulse Ox 97 05/31/22 20:47 O2 Del Method 05/30/22 21:00 Results & Data ([facility]) Current Inpatient Medications Current Inpatient Medications: Current Inpatient Medications Acetaminophen (Acetaminophen 325 Mg Tab) 650 mg PO Q4H PRN PRN Reason: Headache or Minor Fever Stop: 06/27/22 00:29 Last Admin: 06/04/22 22:32 Dose: 650 mg Al Hydrox/Mg Hydrox/Simethicone (Aluminum/Magnesium Susp 30 Ml Udc) 30 ml PO Q4H PRN PRN Reason: GI Upset Stop: 06/27/22 00:29 Apixaban (Apixaban 5 Mg Tablet) 5 mg PO BID [facility] Stop: 07/04/22 09:44 Last Admin: 06/10/22 07:57 Dose: 5 mg Bacitracin (Bacitracin Oint 15 Gm Tube) 1 appln EXT BID [facility] Stop: 07/05/22 14:24 Last Admin: 06/10/22 07:58 Dose: 1 appln Dicyclomine HCl (Dicyclomine Hcl 10 Mg Cap) 10 mg PO QID PRN PRN Reason: ABD PAIN Stop: 06/27/22 16:10 Last Admin: 06/09/22 17:52 Dose: 10 mg Famotidine (Famotidine 20 Mg Tab) 20 mg PO BID PRN PRN Reason: Acid Reflux Stop: 06/27/22 16:10 Gabapentin (Gabapentin 600 Mg Tab) 600 mg PO TID RENU Stop: 06/27/22 20:59 Last Admin: 06/10/22 07:58 Dose: 600 mg Kaplan Carbonate (Kaplan Carbonate Slow Rel 300 Mg Tab) 300 mg PO BID RENU Stop: 07/07/22 20:59 Last Admin: 06/10/22 07:58 Dose: 300 mg Lorazepam (Lorazepam 0.5 Mg Tab) 0.5 mg PO Q6 PRN PRN Reason: Anxiety Stop: 07/03/22 12:07 Last Admin: 06/09/22 13:16 Dose: 0.5 mg Magnesium Hydroxide (Magnesium Hydroxide Susp 30 Ml Udc) 30 ml PO DAILY PRN PRN Reason: Constipation Stop: 06/27/22 00:29 Menthol (Cough Drop (Sugar Free) Wenceslao 24 Wenceslao/1 Box) 1 wenceslao BUCCAL Q1HWA PRN PRN Reason: Sore Throat Stop: 07/05/22 14:23 Last Admin: 06/05/22 14:34 Dose: 1 wenceslao Olanzapine (Olanzapine 5 Mg Tablet) 5 mg PO Q6 PRN PRN Reason: Anxiety/Agitation Stop: 07/01/22 17:59 Last Admin: 06/07/22 11:37 Dose: 5 mg Olanzapine (Olanzapine 5 Mg Tablet) 5 mg PO BID RENU Stop: 07/07/22 11:59 Last Admin: 06/10/22 07:58 Dose: 5 mg Prazosin HCl (Prazosin Hcl 1 Mg Cap) 1 mg PO HS RENU Stop: 06/27/22 21:59 Last Admin: 06/09/22 20:16 Dose: 1 mg Propranolol HCl (Propranolol Hcl 20 Mg Tab) 20 mg PO BID RENU Stop: 06/27/22 20:59 Last Admin: 06/10/22 07:58 Dose: 20 mg Sodium Chloride (Sodium Chloride 0.65% Na Soln 45 Ml ([place])) 1 - 2 sprays NA PRN PRN PRN Reason: Nasal Dryness/Congestion Stop: 06/27/22 00:29 Trazodone HCl (Trazodone Hcl 50 Mg Tab) 150 mg PO HS RENU Stop: 06/27/22 21:59 Last Admin: 06/09/22 20:16 Dose: 150 mg Mental Health & Subst Abuse Tx Psychiatrist Name of Psychiatrist: [employer] Psychiatrist's Date of Appointment with Psychiatrist: 06/06/22 Time of Appointment with Psychiatrist: 2:20PM Psychiatric Appointment Comment: [address] [place] [address] Therapist Name of Therapist: Jazzmine Galvan Therapist's Date of Therapist Appointment: 06/14/22 Time of Therapist Appointment: 9 AM Therapy Appointment Comment: [address], [address], [place] [address] Fur Comber Name of Fur Comber: Andreea Soares Phone Number for Fur Comber: [phone] Case Management Appointment Comment: Please resume your normal schedule. Post Discharge Appointments Primary Care Physician Name Of Family Doctor: Bubba Chaparro Primary Care Date of Appointment with PCP: 06/06/22 Time of Appointment with PCP: 10:45 AM Provider [facility]ment [facility] [address] [facility] [place] [address] Contact Information Discharge Discharge Address: [address] [place] [id number]
[2022-06-10] MEDS: ACETAMINOPHEN 325 MG TAB PO PRN (17:50)
[2022-06-10] MEDS: PRAZOSIN HCL 1 MG CAP PO SCH (21:43)
[2022-06-10] MEDS: traZODone HCL 50 MG TAB PO SCH (21:44)
[2022-06-11] MEDS: BACITRACIN OINT 15 GM TUBE EXT SCH ×2 (08:50→22:11)
[2022-06-11] MEDS: LITHIUM CARBONATE SLOW REL 300 MG TAB PO SCH ×2 (08:51→22:12)
[2022-06-11] MEDS: OLANZapine 5 MG TABLET PO SCH ×2 (08:51→22:11)
[2022-06-11] MEDS: APIXABAN 5 MG TABLET PO SCH ×2 (08:51→22:11)
[2022-06-11] MEDS: PROPRANOLOL HCL 20 MG TAB PO SCH ×2 (08:52→22:12)
[2022-06-11] MEDS: GABAPENTIN 600 MG TAB PO SCH ×3 (08:52→22:11)
[2022-06-11] MEDS: LORazepam 0.5 MG TAB PO PRN (11:26)
[2022-06-11] MEDS: ACETAMINOPHEN 325 MG TAB PO PRN ×2 (12:04→16:23)
--- NOTE | 2022-06-11 17:01 | Psychiatric Progress Note ---
Date of Service June 11, 2022 Impression / Recommendations Impression The patient is a 21 year old with a history of BPD, PTSD and MDD with psychotic features with multiple recent psychiatric hospitalizations, this is the fifth since mid-March, for SI with plan of overdosing and continuing decompensation in the outpatient setting, no longer working. Converted to 304 on 06/06/22. Patient has been hospitalized 6 times in the past year:[facility] for 3 weeks in Apr 2022, [facility] x 3 in March 2022, [facility] May 2021 and would benefit from more extended stay facility. Ongoing dysregulation, SI with mild SIB (head tapping) 06/11/22: ongoing depression and SI with self-harm urges though mood a bit better today with some lessening of SI. (1) Depression with suicidal ideation: (2) Borderline personality disorder: (3) Eating disorder, unspecified: (4) Acquired asplenia: (5) PTSD (post-traumatic stress disorder): Plan 06/11/22: Increase [place] to 300mg qAM & 600mg qhs 06/10/22: Continue current medications and tx plan. Consider further titration of lithium tomorrow. 06/09/22: Continue with current medications and tx plan. 06/08/22: d/c safe tray, continue current meds and tx plan. 06/07/22: hospitalist consult appreciated. Routine monitoring for Eliquis. Risks/benefits/alternatives reviewed lithium for mood stabilization. Discussion included but was not limited to risks of toxicity in overdose and need for ongo ing blood monitoring (levels, kidney function, and thyroid). The patient was made aware to avoid regular use of NSAIDs as can increase levels and that lithium may need to be held during GI or other illnesses that result in dehydration. Will start [place] 300 mg Bid and titrate. 06/06/22: 304 commitment granted. EKG and CXR reviewed. Routine hospitalist consult for medical clearance. 06/05/22: compliant with Yehuda, [facility], [facility] cannot accept out of county referrals. Treatment team discussion around [facility] hospital referral. Will need CXR, EKG for clearance and 304 commitment so paperwork completed. Patient is voicing agreement with this plan. 06/04/22: d/c 1-on-1, INR less than 2 so change to Eliquis 5 mg BID to improve compliance. [facility] is an acute care facility, will explore referral to [place]. 06/03/22: patient prefers to d/c Zoloft and monitor for discontinuation syndrome rather than tapering, agreeable to Zyprexa standing order at . Prn Ativan in place of Vistaril which is ineffective. Consider switch from Coumadin to Lovenox as patient cannot afford Eliquis. 06/02/22: d/c 1-on-1, patient's room being moved to [facility]. Consider longer term hospital referral. Keppra has been discontinued, has Zyprexa prn (previously helpful) and Zoloft held for now in case activating. 06/01/22: Continue current medication and tx plan. If she continues to refuse coumadin consider medication over objection. Will place adjunct latin professor consult given history of unspecified eating disorder which seems to impact her mood significantly. 05/31/22: 303 commitment granted. Decrease Keppra to 250mg BID and then discontinue. Consider taper of gabapentin but fo now helping with anxiety. 05/30/22: Continue to encourage po intake and medications. Pursuing 303 commitment and likely medication over objection if she continues to refuse warfarin. Per discussion with [facility] hospitalist consult provider alternative formulations available for treating the thrombus would be Lovenox 70mg q12h or Eliquis 5mg BID. Prior to admission she was being prescribed warfarin 7.5mg MWF and 5mg SSTTh. 05/29/22: Continue to encourage adherence with medications and po intake. Continue efforts for labwork to check INR. External med rec also notable for venlafaxine 150mg BID. Given maximum dose of sertraline and her ongoing refusal for medications will avoid restarting this given serotonin syndrome risk with concurrent sertraline and now through most of the withdrawal symptoms period/refusing all medications. 05/28/22: [facility] mental health [facility]) on q15 min checks (behavioral with suicide precautions) for safety. The patient will participate in group, recreational, and milieu therapies and will be offered additional individual and family sessions as clinically appropriate. -Continue sertraline 200mg qd, trazodone 150mg qhs, prazosin 1mg qhs, gabapentin 600mg BID -Taper Keppra as concern this is adding to irritability, will reduce to 500mg BID with plan for taper to discontinuation -Continue to monitor and encourage po intake -No available records from the [facility] as discharge paperwork has not yet been completed from her stay Inventory Assets Strengths: supportive relationships, outpatient providers, had period of outpatient stability in the past, manages medical issues Needs: safety and stabilization, medication adjustment, additional coping skills, increased outpatient services Suicide Risk Level Suicide Risk Level: High-Moderate (q15 min suicide checks) Suicide Risk Level Comments: High-Moderate due to severe depression with SI with plan prior to admission and intermittent ongoing SI and eopisodes of self-harm but has maintained safe behaviors and able to safety contract and agrees to let nursing/staff know should she develop specific plan, intent or feel unable to remain safe. Risk Factors Assessment : Yes Do You Have Access To A Gun?: No Health Problems: Yes Mental Health Diagnoses: Yes Substance Use Disorders: No Previous Attempt: Yes Previous Psychiatric Hospitalization: Yes Hopelessness: Yes Protective Factors Assessment : Yes Employed: No Stable Relationships: Yes Supportive Family: Yes Interval History Identifying Information MAKENZIE COSTA is a 21-year-old F who currently lives in [place] with her and in-laws, has a history of MDD with psychotic features, PTSD, BPD, Brock brock disease, superior mesenteric venous thrombus, asplenia and was admitted on 05/27/22 22:55 on a 302 involuntary commitment for SI with plan of overdosing on medications. Chief Complaint "I'm pretty good". Review of Systems Sleep Information Total Hours of Sleep: 7.45 Sleep Comments: pt on q-15 minute checks patient was placed on 1 to 1 Meal Information Percent Meal Consumed - Breakfast: 100 Percent Meal Consumed - Lunch: 100 Percent Meal Consumed - Dinner: 100 Subjective Subjective Patient was seen & assessed and interval progress reviewed with treatment team nursing and social work. Today reports improved mood due to lessening of SI today though she notes "it's still there but only a little bit today". No medication side effects. Agreeable to increasing [place]. Practiced some ACT strategies last night related to her feelings of worthlessness and found this helpful. Physical Exam Psychiatric Orientation: alert and oriented x 3 Apperance: appropriately dressed and appropriately groomed Eye Contact: good eye contact Motor Behavior: no abnormal motor movements Speech: normal rate/rhythm/volume of speech Affect: + flat affect Mood: + depressed mood Thought Process: goal directed thought process Thought Content: + worthlessness Suicidal Thoughts: denies suicidal plan and denies suicidal intent; + reports suicidal thoughts Homicidal Thoughts: denies homicidal thoughts Hallucinations: no auditory hallucinations and no visual hallucinations Cognition: recent memory grossly intact, remote memory grossly intact, attention grossly intact and language grossly intact Insight: + limited insight Judgement: + limited judgement Vital Signs (Past 24 Hours) Last Vital Signs Temp 36.9 C 06/11/22 06:47 Pulse 79 06/11/22 08:02 Resp 16 06/11/22 06:47 BP 114/76 06/11/22 08:02 Pulse Ox 97 05/31/22 20:47 O2 Del Method 05/30/22 21:00 Results & Data ([facility]) Current Inpatient Medications Current Inpatient Medications: Current Inpatient Medications Acetaminophen (Acetaminophen 325 Mg Tab) 650 mg PO Q4H PRN PRN Reason: Headache or Minor Fever Stop: 06/27/22 00:29 Last Admin: 06/11/22 16:23 Dose: 650 mg Al Hydrox/Mg Hydrox/Simethicone (Aluminum/Magnesium Susp 30 Ml Udc) 30 ml PO Q4H PRN PRN Reason: GI Upset Stop: 06/27/22 00:29 Apixaban (Apixaban 5 Mg Tablet) 5 mg PO BID [facility] Stop: 07/04/22 09:44 Last Admin: 06/11/22 08:51 Dose: 5 mg Bacitracin (Bacitracin Oint 15 Gm Tube) 1 appln EXT BID RENU Stop: 07/05/22 14:24 Last Admin: 06/11/22 08:50 Dose: 1 appln Dicyclomine HCl (Dicyclomine Hcl 10 Mg Cap) 10 mg PO QID PRN PRN Reason: ABD PAIN Stop: 06/27/22 16:10 Last Admin: 06/09/22 17:52 Dose: 10 mg Famotidine (Famotidine 20 Mg Tab) 20 mg PO BID PRN PRN Reason: Acid Reflux Stop: 06/27/22 16:10 Gabapentin (Gabapentin 600 Mg Tab) 600 mg PO TID RENU Stop: 06/27/22 20:59 Last Admin: 06/11/22 13:52 Dose: 600 mg [place] Carbonate ([place] Carbonate Slow Rel 300 Mg Tab) 300 mg PO QD@08 RENU Stop: 07/12/22 07:59 [place] Carbonate ([place] Carbonate 300 Mg Tab) 600 mg PO HS RENU Stop: 07/11/22 21:59 Lorazepam (Lorazepam 0.5 Mg Tab) 0.5 mg PO Q6 PRN PRN Reason: Anxiety Stop: 07/03/22 12:07 Last Admin: 06/11/22 11:26 Dose: 0.5 mg Magnesium Hydroxide (Magnesium Hydroxide Susp 30 Ml Udc) 30 ml PO DAILY PRN PRN Reason: Constipation Stop: 06/27/22 00:29 Menthol (Cough Drop (Sugar Free) Wenceslao 24 Wenceslao/1 Box) 1 wenceslao BUCCAL Q1HWA PRN PRN Reason: Sore Throat Stop: 07/05/22 14:23 Last Admin: 06/05/22 14:34 Dose: 1 wenceslao Olanzapine (Olanzapine 5 Mg Tablet) 5 mg PO Q6 PRN PRN Reason: Anxiety/Agitation Stop: 07/01/22 17:59 Last Admin: 06/07/22 11:37 Dose: 5 mg Olanzapine (Olanzapine 5 Mg Tablet) 5 mg PO BID RENU Stop: 07/07/22 11:59 Last Admin: 06/11/22 08:51 Dose: 5 mg Prazosin HCl (Prazosin Hcl 1 Mg Cap) 1 mg PO HS RENU Stop: 06/27/22 21:59 Last Admin: 06/10/22 21:43 Dose: 1 mg Propranolol HCl (Propranolol Hcl 20 Mg Tab) 20 mg PO BID RENU Stop: 06/27/22 20:59 Last Admin: 06/11/22 08:52 Dose: 20 mg Sodium Chloride (Sodium Chloride 0.65% Na Soln 45 Ml ([place])) 1 - 2 sprays NA PRN PRN PRN Reason: Nasal Dryness/Congestion Stop: 06/27/22 00:29 Trazodone HCl (Trazodone Hcl 50 Mg Tab) 150 mg PO HS RENU Stop: 06/27/22 21:59 Last Admin: 06/10/22 21:44 Dose: 150 mg Mental Health & Subst Abuse Tx Psychiatrist Name of Psychiatrist: [facility] Psychiatrist's Date of Appointment with Psychiatrist: 06/06/22 Time of Appointment with Psychiatrist: 2:20PM Psychiatric Appointment Comment: [address] [place] [address] Therapist Name of Therapist: Jazzmine Galvan Therapist's Date of Therapist Appointment: 06/14/22 Time of Therapist Appointment: 9 AM Therapy Appointment Comment: [address] [facility], [address], [place] [address] Through Operator Name of Through Operator: Andreea Soares Phone Number for Through Operator: [phone] Case Management Appointment Comment: Please resume your normal schedule. Post Discharge Appointments Primary Care Physician Name Of Family Doctor: Bubba Chaparro Primary Care Date of Appointment with PCP: 06/06/22 Time of Appointment with PCP: 10:45 AM Provider [facility]ment [facility] [address] [facility] [place] [address] Contact Information Discharge Discharge Address: [address] [place], [place] [address] [id number]
[2022-06-11] MEDS ORDERED: LITHIUM CARBONATE 300 MG TAB PO SCH (22:00)
[2022-06-11] MEDS: traZODone HCL 50 MG TAB PO SCH (22:12)
[2022-06-11] MEDS: PRAZOSIN HCL 1 MG CAP PO SCH (22:12)
[2022-06-12] MEDS: APIXABAN 5 MG TABLET PO SCH ×2 (08:27→20:35)
[2022-06-12] MEDS: BACITRACIN OINT 15 GM TUBE EXT SCH ×2 (08:28→20:36)
[2022-06-12] MEDS: OLANZapine 5 MG TABLET PO SCH ×2 (08:28→20:35)
[2022-06-12] MEDS: PROPRANOLOL HCL 20 MG TAB PO SCH ×2 (08:28→20:36)
[2022-06-12] MEDS: GABAPENTIN 600 MG TAB PO SCH ×3 (08:28→20:35)
[2022-06-12] MEDS: LITHIUM CARBONATE SLOW REL 300 MG TAB PO SCH ×2 (08:29→20:36)
[2022-06-12] MEDS: LORazepam 0.5 MG TAB PO PRN ×2 (14:35→20:35)
--- NOTE | 2022-06-12 16:04 | Psychiatric Progress Note ---
Date of Service June 12, 2022 Impression / Recommendations Impression The patient is a 21 year old with a history of BPD, PTSD and MDD with psychotic features with multiple recent psychiatric hospitalizations, this is the fifth since mid-March, for SI with plan of overdosing and continuing decompensation in the outpatient setting, no longer working. Converted to 304 on 06/06/22. Patient has been hospitalized 6 times in the past year:[facility] for 3 weeks in Apr 2022, [facility] x 3 in March 2022, [facility] May 2021 and would benefit from more extended stay facility. Ongoing dysregulation, SI with mild SIB (head tapping) MNPR due to asplenic and high community prevalence of COVID as well as periods of emotional and behavioral dysregulation with self-harming 06/12/22: ongoing depression and SI with self-harm urges, increased SI last night resulting in strong urges to self-harm requiring RN redirection and refusal of evening meds and meal. Review Li level of 0.2. Low as expected and appropriate and safe for dose increase to continue to target depression and SI. (1) Depression with suicidal ideation: (2) Borderline personality disorder: (3) Eating disorder, unspecified: (4) Acquired asplenia: (5) PTSD (post-traumatic stress disorder): Plan 06/12/22: Continue with current medications and tx plan. 06/11/22: Increase [place] to 300mg qAM & 600mg qhs 06/10/22: Continue current medications and tx plan. Consider further titration of lithium tomorrow. 06/09/22: Continue with current medications and tx plan. 06/08/22: d/c safe tray, continue current meds and tx plan. 06/07/22: hospitalist consult appreciated. Routine monitoring for Eliquis. Risks/benefits/alternatives reviewed lithium for mood stabilization. Discussion included but was not limited to risks of toxicity in overdose and need for ongoing blood monitoring (levels, kidney function, and thyroid). The patient was made aware to avoid regular use of NSAIDs as can increase levels and that lithium may need to be held during GI or other illnesses that result in dehydration. Will start [place] 300 mg Bid and titrate. 06/06/22: 304 commitment granted. EKG and CXR reviewed. Routine hospitalist consult for medical clearance. 06/05/22: compliant with Eliquis, [place] declined, [facility] cannot accept out of county referrals. Treatment team discussion around [facility] hospital referral. Will need CXR, EKG for clearance and 304 commitment so paperwork completed. Patient is voicing agreement with this plan. 06/04/22: d/c 1-on-1, INR less than 2 so change to Eliquis 5 mg BID to improve compliance. [facility] is an acute care facility, will explore referral to [place]. 06/03/22: patient prefers to d/c Zoloft and monitor for discontinuation syndrome rather than tapering, agreeable to Zyprexa standing order at hs. Prn Ativan in place of Vistaril which is ineffective. Consider switch from Coumadin to Lovenox as patient cannot afford Eliquis. 06/02/22: d/c 1-on-1, patient's room being moved to [facility]. Consider longer term hospital referral. Keppra has been discontinued, has Zyprexa prn (previously helpful) and Zoloft held for now in case activating. 06/01/22: Continue current medication and tx plan. If she continues to refuse coumadin consider medication over objection. Will place cotton bag clipper consult given history of unspecified eating disorder which seems to impact her mood significantly. 05/31/22: 303 commitment granted. Decrease Keppra to 250mg BID and then discontinue. Consider taper of gabapentin but fo now helping with anxiety. 05/30/22: Continue to encourage po intake and medications. Pursuing 303 commitment and likely medication over objection if she continues to refuse warfarin. Per discussion with [facility] hospitalist consult provider alternative formulations available for treating the thrombus would be Lovenox 70mg q12h or Eliquis 5mg BID. Prior to admission she was being prescribed warfarin 7.5mg MWF and 5mg SSTTh. 05/29/22: Continue to encourage adherence with medications and po intake. C ontinue efforts for labwork to check INR. External med rec also notable for venlafaxine 150mg BID. Given maximum dose of sertraline and her ongoing refusal for medications will avoid restarting this given serotonin syndrome risk with concurrent sertraline and now through most of the withdrawal symptoms period/refusing all medications. 05/28/22: The patient [facility] inpatient mental health unit) on q15 min checks (behavioral with suicide precautions) for safety. The patient will participate in group, recreational, and milieu therapies and will be offered additional individual and family sessions as clinically appropriate. -Continue sertraline 200mg qd, trazodone 150mg qhs, prazosin 1mg qhs, gabapentin 600mg BID -Taper Keppra as concern this is adding to irritability, will reduce to 500mg BID with plan for taper to discontinuation -Continue to monitor and encourage po intake -No available records from the [facility] as discharge paperwork has not yet been completed from her stay Inventory Assets Strengths: supportive relationships, outpatient providers, had period of outpatient sta bility in the past, manages medical issues Needs: safety and stabilization, medication adjustment, additional coping skills, increased outpatient services Suicide Risk Level Suicide Risk Level: High-Moderate (q15 min suicide checks) Suicide Risk Level Comments: High-Moderate due to severe depression with SI with plan prior to admission and intermittent ongoing SI and episodes of self-harm but is able to safety contract and agrees to let nursing/staff know should she develop specific plan, intent or feel unable to remain safe. Risk Factors Assessment : Yes Do You Have Access To A Gun?: No Health Problems: Yes Mental Health Diagnoses: Yes Substance Use Disorders: No Previous Attempt: Yes Previous Psychiatric Hospitalization: Yes Hopelessness: Yes Protective Factors Assessment : Yes Employed: No Stable Relationships: Yes Supportive Family: Yes Interval History Identifying Information MAKENZIE COSTA is a 21-year-old F who currently lives in [place] with her and in-laws, has a history of MDD with psychotic features, PTSD, BPD, Brock brock disease, superior mesenteric venous thrombus, asplenia and was admitted on 05/27/22 22:55 on a 302 involuntary commitment for SI with plan of overdosing on medications. Chief Complaint "It was really bad last night". Review of Systems Sleep Information Total Hours of Sleep: 6.5 Sleep Comments: Meal Information Percent Meal Consumed - Breakfast: 90 Percent Meal Consumed - Lunch: 90 Percent Meal Consumed - Dinner: 0 Subjective Subjective Patient was seen & assessed and interval progress reviewed with treatment team nursing and social work. Allowed li level blood draw last night but then refused dinner, refused all qhs medication and isolated to her bed. She told staff last night she was having increased thoughts of SI and had to be redirected to remove the safe pillow from over her head. Tells me she had intensified SI last night but isn't sure why. Had family meeting today to review safety strategies for periods of heightened SI and self-harm. She feels this was helpful and her and in-laws have a better understanding now of warning signs and ways to help her. Denies medication side effects. Mood is better today which she attributes to lessening of SI today. Still with SI but states "I'm able to cope with it today". Physical Exam Psychiatric Orientation: alert and oriented x 3 Apperance: appropriately dressed and appropriately groomed Eye Contact: good eye contact Motor Behavior: no abnormal motor movements Speech: normal rate/rhythm/volume of speech Affect: + labile affect (constricted at times, later observed laughing while on the phone) Mood: + depressed mood and + anxious mood Thought Process: goal directed thought process and + concrete thought process Thought Content: reality based without delusions and + worthlessness Suicidal Thoughts: denies suicidal plan and denies suicidal intent; + reports suicidal thoughts (intermittent) Homicidal Thoughts: denies homicidal thoughts Hallucinations: no auditory hallucinations and no visual hallucinations Cognition: recent memory grossly intact, remote memory grossly intact, attention grossly intact and language grossly intact Estimated Intelligence: consistent with education level Insight: + limited insight Judgement: + limited judgement Vital Signs (Past 24 Hours) Last Vital Signs Temp 36.9 C 06/11/22 20:00 Pulse 79 06/11/22 08:02 Resp 16 06/11/22 06:47 BP 114/76 06/11/22 08:02 Pulse Ox 97 05/31/22 20:47 O2 Del Method 05/30/22 21:00 Results & Data ([facility]) Laboratory Results Laboratory Results - last 24 hr 06/11/22 21:51 [place] 0.2 L Current Inpatient Medications Current Inpatient Medications: Current Inpatient Medications Acetaminophen (Acetaminophen 325 Mg Tab) 650 mg PO Q4H PRN PRN Reason: Headache or Minor Fever Stop: 06/27/22 00:29 Last Admin: 06/11/22 16:23 Dose: 650 mg Al Hydrox/Mg Hydrox/Simethicone (Aluminum/Magnesium Susp 30 Ml Udc) 30 ml PO Q4H PRN PRN Reason: GI Upset Stop: 06/27/22 00:29 Apixaban (Apixaban 5 Mg Tablet) 5 mg PO BID RENU Stop: 07/04/22 09:44 Last Admin: 06/12/22 08:27 Dose: 5 mg Bacitracin (Bacitracin Oint 15 Gm Tube) 1 appln EXT BID RENU Stop: 07/05/22 14:24 Last Admin: 06/12/22 08:28 Dose: 1 appln Dicyclomine HCl (Dicyclomine Hcl 10 Mg Cap) 10 mg PO QID PRN PRN Reason: ABD PAIN Stop: 06/27/22 16:10 Last Admin: 06/09/22 17:52 Dose: 10 mg Famotidine (Famotidine 20 Mg Tab) 20 mg PO BID PRN PRN Reason: Acid Reflux Stop: 06/27/22 16:10 Gabapentin (Gabapentin 600 Mg Tab) 600 mg PO TID RENU Stop: 06/27/22 20:59 Last Admin: 06/12/22 14:35 Dose: 600 mg [place] Carbonate ([place] Carbonate Slow Rel 300 Mg Tab) 300 mg PO QD@08 RENU Stop: 07/12/22 07:59 Last Admin: 06/12/22 08:29 Dose: 300 mg [place] Carbonate ([place] Carbonate Slow Rel 300 Mg Tab) 600 mg PO HS RENU Stop: 07/11/22 21:59 Last Admin: 06/11/22 22:12 Dose: Not Given Lorazepam (Lorazepam 0.5 Mg Tab) 0.5 mg PO Q6 PRN PRN Reason: Anxiety Stop: 07/03/22 12:07 Last Admin: 06/12/22 14:35 Dose: 0.5 mg Magnesium Hydroxide (Magnesium Hydroxide Susp 30 Ml Udc) 30 ml PO DAILY PRN PRN Reason: Constipation Stop: 06/27/22 00:29 Menthol (Cough Drop (Sugar Free) E[place]o 24 Wenceslao/1 Box) 1 wenceslao BUCCAL Q1HWA PRN PRN Reason: Sore Throat Stop: 07/05/22 14:23 Last Admin: 06/05/22 14:34 Dose: 1 wenceslao Olanzapine (Olanzapine 5 Mg Tablet) 5 mg PO Q6 PRN PRN Reason: Anxiety/Agitation Stop: 07/01/22 17:59 Last Admin: 06/07/22 11:37 Dose: 5 mg Olanzapine (Olanzapine 5 Mg Tablet) 5 mg PO BID RENU Stop: 07/07/22 11:59 Last Admin: 06/12/22 08:28 Dose: 5 mg Prazosin HCl (Prazosin Hcl 1 Mg Cap) 1 mg PO HS RENU Stop: 06/27/22 21:59 Last Admin: 06/11/22 22:12 Dose: Not Given Propranolol HCl (Propranolol Hcl 20 Mg Tab) 20 mg PO BID RENU Stop: 06/27/22 20:59 Last Admin: 06/12/22 08:28 Dose: 20 mg Sodium Chloride (Sodium Chloride 0.65% Na Soln 45 Ml ([place])) 1 - 2 sprays NA PRN PRN PRN Reason: Nasal Dryness/Congestion Stop: 06/27/22 00:29 Trazodone HCl (Trazodone Hcl 50 Mg Tab) 150 mg PO HS RENU Stop: 06/27/22 21:59 Last Admin: 06/11/22 22:12 Dose: Not Given Mental Health & Subst Abuse Tx Psychiatrist Name of Psychiatrist: [facility] Date of Appointment with Psychiatrist: 06/06/22 Time of Appointment with Psychiatrist: 2:20PM Psychiatric Appointment Comment: [address] [place] [address] Therapist Name of Therapist: Jazzmine Galvan Therapist's Date of Therapist Appointment: 06/14/22 Time of Therapist Appointment: 9 AM Therapy Appointment Comment: [address], [address], [place] [address] Chief Creative Officer Name of Chief Creative Officer: Andreea Soares Phone Number for Chief Creative Officer: [phone] Case Management Appointment Comment: Please resume your normal schedule. Post Discharge Appointments Primary Care Physician Name Of Family Doctor: Bubba Chaparro [facility] Date of Appointment with PCP: 06/06/22 Time of Appointment with PCP: 10:45 AM Provider Appointment Comment: [address] [facility], [place] [address] Contact Information Discharge Discharge Address: [address] [place] [id number]
[2022-06-12] MEDS: OLANZapine 5 MG TABLET PO PRN (16:15)
[2022-06-12] MEDS: traZODone HCL 50 MG TAB PO SCH (20:36)
[2022-06-12] MEDS: PRAZOSIN HCL 1 MG CAP PO SCH (20:36)
[2022-06-13] MEDS: LITHIUM CARBONATE SLOW REL 300 MG TAB PO SCH ×2 (07:39→20:52)
[2022-06-13] MEDS: PROPRANOLOL HCL 20 MG TAB PO SCH ×2 (07:40→20:51)
[2022-06-13] MEDS: APIXABAN 5 MG TABLET PO SCH ×2 (07:40→20:50)
[2022-06-13] MEDS: GABAPENTIN 600 MG TAB PO SCH ×3 (07:40→20:51)
[2022-06-13] MEDS: BACITRACIN OINT 15 GM TUBE EXT SCH ×2 (07:41→20:50)
[2022-06-13] MEDS: OLANZapine 5 MG TABLET PO SCH ×2 (07:42→20:51)
--- NOTE | 2022-06-13 08:44 | Psychiatric Progress Note ---
Date of Service June 13, 2022 Impression / Recommendations Impression The patient is a 21 year old with a history of BPD, PTSD and MDD with psychotic features with multiple recent psychiatric hospitalizations, this is the fifth since mid-March, for SI with plan of overdosing and continuing decompensation in the outpatient setting, no longer working. Converted to 304 on 06/06/22. Patient has been hospitalized 6 times in the past year:[facility] for 3 weeks in Apr 2022, [facility] x 3 in March 2022, [facility] May 2021 and would benefit from more extended stay facility. Ongoing dysregulation, SI with mild SIB (head tapping) MNPR due to asplenic and high community prevalence of COVID as well as periods of emotional and behavioral dysregulation with self-harming 06/13/22:worsened depression, irritability and SI today. Tolerating higher dose of Centropolis and other medications. (1) Depression with suicidal ideation: (2) Borderline personality disorder: (3) Eating disorder, unspecified: (4) Acquired asplenia: (5) PTSD (post-traumatic stress disorder): Plan 06/13/22: Continue current medication and tx plan. 06/12/22: Continue with current medications and tx plan. 06/11/22: Increase Centropolis to 300mg qAM & 600mg qhs 06/10/22: Continue current medications and tx plan. Consider further titration of lithium tomorrow. 06/09/22: Continue with current medications and tx plan. 06/08/22: d/c safe tray, continue current meds and tx plan. 06/07/22: hospitalist consult appreciated. Routine monitoring for Eliquis. Risks/benefits/alternatives reviewed lithium for mood stabilization. Discussion included but was not limited to risks of toxicity in overdose and need for ongoing blood monitoring (levels, kidney function, and thyroid). The patient was made aware to avoid regular use of NSAIDs as can increase levels and that lithium may need to be held during GI or other illnesses that result in dehydration. Will start Centropolis 300 mg Bid and titrate. 06/06/22: 304 commitment granted. EKG and CXR reviewed. Routine hospitalist consult for medical clearance. 06/05/22: compliant with Eliquis, [facility], [facility] accept [facility]. Treatment team discussion around [facility] referral. W ill need CXR, EKG for clearance and 304 commitment so paperwork completed. Patient is voicing agreement with this plan. 06/04/22: d/c 1-on-1, INR less than 2 so change to Eliquis 5 mg BID to improve compliance. [facility] is an acute care facility, will explore referral to [place]. 06/03/22: patient prefers to d/c Zoloft and monitor for discontinuation syndrome rather than tapering, agreeable to Zyprexa standing order at hs. Prn Ativan in place of Vistaril which is ineffective. Consider switch from Coumadin to Lovenox as patient cannot afford Eliquis. 06/02/22: d/c 1-on-1, patient's room being moved to [facility]. Consider longer term hospital referral. Keppra has been discontinued, has Zyprexa prn (previously helpful) and Zoloft held for now in case activating. 06/01/22: Continue current medication and tx plan. If she continues to refuse coumadin consider medication over objection. Will place caddymaster consult given history of unspecified eating disorder which seems to impact her mood signif icantly. 05/31/22: 303 commitment granted. Decrease Keppra to 250mg BID and then discontinue. Consider taper of gabapentin but fo now helping with anxiety. 05/30/22: Continue to encourage po intake and medications. Pursuing 303 commitment and likely medication over objection if she continues to refuse warfarin. Per discussion with [facility] hospitalist consult provider alternative formulations available for treating the thrombus would be Lovenox 70mg q12h or Eliquis 5mg BID. Prior to admission she was being prescribed warfarin 7.5mg MWF and 5mg SSTTh. 05/29/22: Continue to encourage adherence with medications and po intake. Continue efforts for labwork to check INR. External med rec also notable for venlafaxine 150mg BID. Given maximum dose of sertraline and her ongoing refusal for medications will avoid restarting this given serotonin syndrome risk with concurrent sertraline and now through most of the withdrawal symptoms period/refusing all medications. 05/28/22: The patient was admitted to the [facility] ([facility] unit) on q15 min checks (behavioral with suicide precautions) for safety. The patient will participate in group, recreational, and milieu therapies and will be offered additional individual and family sessions as clinically appropriate. -Continue sertraline 200mg qd, trazodone 150mg qhs, prazosin 1mg qhs, gabapentin 600mg BID -Taper Keppra as concern this is adding to irritability, will reduce to 500mg BID with plan for taper to discontinuation -Continue to monitor and encourage po intake -No available records from the [facility] as discharge paperwork has not yet been completed from her stay Inventory Assets Strengths: supportive relationships, outpatient providers, had period of outpatient stability in the past, manages medical issues Needs: safety and stabilization, medication adjustment, additional coping skills, increased outpatient services Suicide Risk Level Suicide Risk Level: High-Moderate (q15 min suicide checks) Suicide Risk Level Comments: High-Moderate due to severe depression with SI with plan prior to admission and intermittent ongoing SI and episodes of self-harm but is able to safety contract and agrees to let nursing/staff know should she develop specific plan, intent or feel unable to remain safe. Risk Factors Assessment : Yes Do You Have Access To A Gun?: No Health Problems: Yes Mental Health Diagnoses: Yes Substance Use Disorders: No Previous Attempt: Yes Previous Psychiatric Hospitalization: Yes Hopelessness: Yes Protective Factors Assessment : Yes Employed: No Stable Relationships: Yes Supportive Family: Yes Interval History Identifying Information MAKENZIE COSTA is a 21-year-old F who currently lives in [place] with her and in-laws, has a history of MDD with psychotic features, PTSD, BPD, Brock brock disease, superior mesenteric venous thrombus, asplenia and was admitted on 05/27/22 22:55 on a 302 involuntary commitment for SI with plan of overdosing on medications. Chief Complaint "I'm just agitated and irritated". Review of Systems Sleep Information Total Hours of Sleep: 9.5 Meal Information Percent Meal Consumed - Breakfast: 90 Percent Meal Consumed - Lunch: 90 Percent Meal Consumed - Dinner: 100 Subjective Subjective Patient was seen & assessed and interval progress reviewed with treatment team nursing and social work. Took her medications last night. Today participative in the morning but then mid-day retreated to her room and isolative. Reported increased intensity of SI but no plan and no self-harm behaviors nor urges. States "I'm just agitated and don't want to be around people". Couldn't identify any precipitants to her mood change or stressors. Physical Exam Psychiatric Orientation: alert and oriented x 3 Apperance: appropriately dressed and appropriately groomed Eye Contact: + poor eye contact Motor Behavior: no abnormal motor movements Speech: normal rate/rhythm/volume of speech Affect: + flat affect and + irritable affect Mood: + depressed mood and + irritable mood Thought Process: goal directed thought process and + concrete thought process Thought Content: reality based without delusions Suicidal Thoughts: denies suicidal plan and denies suicidal intent; + reports suicidal thoughts (intermittent) Homicidal Thoughts: denies homicidal thoughts Hallucinations: no auditory hallucinations and no visual hallucinations Cognition: recent memory grossly intact, remote memory grossly intact, attention grossly intact and language grossly intact Estimated Intelligence: consistent with education level Insight: + limited insight Judgement: + limited judgement Vital Signs (Past 24 Hours) Last Vital Signs Temp 36.8 C 06/13/22 06:45 Pulse 105 H 06/13/22 06:45 Resp 16 06/13/22 06:45 BP 115/77 06/13/22 06:45 Pulse Ox 97 05/31/22 20:47 O2 Del Method 05/30/22 21:00 Results & Data ([facility]) Current Inpatient Medications Current Inpatient Medications: Current Inpatient Medications Acetaminophen (Acetaminophen 325 Mg Tab) 650 mg PO Q4H PRN PRN Reason: Headache or Minor Fever Stop: 06/27/22 00:29 Last Admin: 06/11/22 16:23 Dose: 650 mg Al Hydrox/Mg Hydrox/Simethicone (Aluminum/Magnesium Susp 30 Ml Udc) 30 ml PO Q4H PRN PRN Reason: GI Upset Stop: 06/27/22 00:29 Apixaban (Apixaban 5 Mg Tablet) 5 mg PO BID ERNU Stop: 07/04/22 09:44 Last Admin: 06/13/22 07:40 Dose: 5 mg Bacitracin (Bacitracin Oint 15 Gm Tube) 1 appln EXT BID RENU Stop: 07/05/22 14:24 Last Admin: 06/13/22 07:41 Dose: Not Given Dicyclomine HCl (Dicyclomine Hcl 10 Mg Cap) 10 mg PO QID PRN PRN Reason: ABD PAIN Stop: 06/27/22 16:10 Last Admin: 06/09/22 17:52 Dose: 10 mg Famotidine (Famotidine 20 Mg Tab) 20 mg PO BID PRN PRN Reason: Acid Reflux Stop: 06/27/22 16:10 Gabapentin (Gabapentin 600 Mg Tab) 600 mg PO TID RENU Stop: 06/27/22 20:59 Last Admin: 06/13/22 07:40 Dose: 600 mg Centropolis Carbonate (Centropolis Carbonate Slow Rel 300 Mg Tab) 300 mg PO QD@08 RENU Stop: 07/12/22 07:59 Last Admin: 06/13/22 07:39 Dose: 300 mg Centropolis Carbonate (Centropolis Carbonate Slow Rel 300 Mg Tab) 600 mg PO HS RENU Stop: 07/11/22 21:59 Last Admin: 06/12/22 20:36 Dose: 600 mg Lorazepam (Lorazepam 0.5 Mg Tab) 0.5 mg PO Q6 PRN PRN Reason: Anxiety Stop: 07/03/22 12:07 Last Admin: 06/12/22 20:35 Dose: 0.5 mg Magnesium Hydroxide (Magnesium Hydroxide Susp 30 Ml Udc) 30 ml PO DAILY PRN PRN Reason: Constipation Stop: 06/27/22 00:29 Menthol (Cough Drop (Sugar Free) Wenceslao 24 Wenceslao/1 Box) 1 wenceslao BUCCAL Q1HWA PRN PRN Reason: Sore Throat Stop: 07/05/22 14:23 Last Admin: 06/05/22 14:34 Dose: 1 wenceslao Olanzapine (Olanzapine 5 Mg Tablet) 5 mg PO Q6 PRN PRN Reason: Anxiety/Agitation Stop: 07/01/22 17:59 Last Admin: 06/12/22 16:15 Dose: 5 mg Olanzapine (Olanzapine 5 Mg Tablet) 5 mg PO BID RENU Stop: 07/07/22 11:59 Last Admin: 06/13/22 07:42 Dose: 5 mg Prazosin HCl (Prazosin Hcl 1 Mg Cap) 1 mg PO HS RENU Stop: 06/27/22 21:59 Last Admin: 06/12/22 20:36 Dose: 1 mg Propranolol HCl (Propranolol Hcl 20 Mg Tab) 20 mg PO BID RENU Stop: 06/27/22 20:59 Last Admin: 06/13/22 07:40 Dose: 20 mg Sodium Chloride (Sodium Chloride 0.65% Na Soln 45 Ml ([place])) 1 - 2 sprays NA PRN PRN PRN Reason: Nasal Dryness/Congestion Stop: 06/27/22 00:29 Trazodone HCl (Trazodone Hcl 50 Mg Tab) 150 mg PO HS RENU Stop: 06/27/22 21:59 Last Admin: 06/12/22 20:36 Dose: 150 mg Mental Health & Subst Abuse Tx Psychiatrist Name of Psychiatrist: iiMonde Psychiatrist's Date of Appointment with Psychiatrist: 06/06/22 Time of Appointment with Psychiatrist: 2:20PM Psychiatric Appointment Comment: [address] [place] [address] Therapist Name of Therapist: Jazzmine Galvan Therapist's Date of Therapist Appointment: 06/14/22 Time of Therapist Appointment: 9 AM Therapy Appointment Comment: [address], [address], [place] [address] Milk Runner Name of Milk Runner: Andreea Soares Phone Number for Milk Runner: [phone] Case Management Appointment Comment: Please resume your normal schedule. Post Discharge Appointments Primary Care Physician Name Of Family Doctor: Bubba Chaparro Primary Care Date of Appointment with PCP: 06/06/22 Time of Appointment with PCP: 10:45 AM Provider Appointment Comment: [address] [address], [place] [address] Contact Information Discharge Discharge Address: [address] [place] [id number]
[2022-06-13] MEDS: ACETAMINOPHEN 325 MG TAB PO PRN ×2 (10:59→18:50)
[2022-06-13] MEDS: PRAZOSIN HCL 1 MG CAP PO SCH (20:53)
[2022-06-13] MEDS: traZODone HCL 50 MG TAB PO SCH (20:53)
[2022-06-14] MEDS: GABAPENTIN 600 MG TAB PO SCH ×3 (08:48→21:00)
[2022-06-14] MEDS: APIXABAN 5 MG TABLET PO SCH ×2 (08:48→21:00)
[2022-06-14] MEDS: OLANZapine 5 MG TABLET PO SCH ×2 (08:48→21:00)
[2022-06-14] MEDS: LITHIUM CARBONATE SLOW REL 300 MG TAB PO SCH ×2 (08:48→21:01)
[2022-06-14] MEDS: PROPRANOLOL HCL 20 MG TAB PO SCH ×2 (08:48→21:01)
[2022-06-14] MEDS: BACITRACIN OINT 15 GM TUBE EXT SCH ×2 (08:49→21:00)
--- NOTE | 2022-06-14 09:19 | Psychiatric Progress Note ---
Date of Service June 14, 2022 Impression / Recommendations Impression The patient is a 21 year old with a history of BPD, PTSD and MDD with psychotic features with multiple recent psychiatric hospitalizations, this is the fifth since mid-March, for SI with plan of overdosing and continuing decompensation in the outpatient setting, no longer working. Converted to 304 on 06/06/22. Patient has been hospitalized 6 times in the past year:[facility] for 3 weeks in Apr 2022, [facility] x 3 in March 2022, [facility] May 2021 and would benefit from more extended stay facility. Ongoing dysregulation, SI with mild SIB (head tapping) MNPR due to asplenic and high community prevalence of COVID as well as periods of emotional and behavioral dysregulation with self-harming 06/14/22:Still with SI, less intense today. Has new cough but negative COVID test, afebrile, stable vitals and no SOB so will continue with rest, encouragement of fluids. Tolerating higher dose of [place] and other medications. (1) Depression with suicidal ideation: (2) Borderline personality disorder: (3) Eating disorder, unspecified: (4) Acquired asplenia: (5) PTSD (post-traumatic stress disorder): Plan 06/14/22: Continue current medication and tx plan. 06/13/22: Continue current medication and tx plan. 06/12/22: Continue with current medications and tx plan. 06/11/22: Increase [place] to 300mg qAM & 600mg qhs 06/10/22: Continue current medications and tx plan. Consider further titration of lithium tomorrow. 06/09/22: Continue with current medications and tx plan. 06/08/22: d/c safe tray, continue current meds and tx plan. 06/07/22: hospitalist consult appreciated. Routine monitoring for Eliquis. Risks/benefits/alternatives reviewed lithium for mood stabilization. Discussion included but was not limited to risks of toxicity in overdose and need for ongoing blood monitoring (levels, kidney function, and thyroid). The patient was made aware to avoid regular use of NSAIDs as can increase levels and that lithium may need to be held during GI or other illnesses that result in dehydration. Will start [place] 300 mg Bid and titrate. 06/06/22: 304 commitment granted. EKG and CXR reviewed. Routine hospitalist consult for medical clearance. 06/05/22: compliant with Eliquis, [place] declined, [facility] cannot accept out of county referrals. Treatment team discussion around state hospital referral. Will need CXR, EKG for clearance and 304 commitment so paperwork completed. Patient is voicing agreement with this plan. 06/04/22: d/c 1-on-1, INR less than 2 so change to Eliquis 5 mg BID to improve compliance. [facility] is an acute care facility, will explore referral to [place]. 06/03/22: patient prefers to d/c Zoloft and monitor for discontinuation syndrome rather than tapering, agreeable to Zyprexa standing order at . Prn Ativan in place of Vistaril which is ineffective. Consider switch from Coumadin to Lovenox as patient cannot afford Eliquis. 06/02/22: d/c 1-on-1, patient's room being moved to [facility]. Consider longer term hospital referral. Keppra has been discontinued, has Zyprexa prn (previously helpful) and Zoloft held for now in case activating. 06/01/22: Continue current medication and tx plan. If she continues to refuse coumadin consider medication over objection. Will place rn research consult given history of unspecified eating disorder which seems to impact her mood significantly. 05/31/22: 303 commitment granted. Decrease Keppra to 250mg BID and then discontinue. Consider taper of gabapentin but fo now helping with anxiety. 05/30/22: Continue to encourage po intake and medications. Pursuing 303 com mitment and likely medication over objection if she continues to refuse warfarin. Per discussion with [facility] hospitalist consult provider alternative formulations available for treating the thrombus would be Lovenox 70mg q12h or Eliquis 5mg BID. Prior to admission she was being prescribed warfarin 7.5mg MWF and 5mg SSTTh. 05/29/22: Continue to encourage adherence with medications and po intake. Continue efforts for labwork to check INR. External med rec also notable for venlafaxine 150mg BID. Given maximum dose of sertraline and her ongoing refusal for medications will avoid restarting this given serotonin syndrome risk with concurrent sertraline and now through most of the withdrawal symptoms period/refusing all medications. 05/28/22: The patient was admitted to the [facility] (locked inpatient mental health unit) on q15 min checks (behavioral with suicide precautions) for safety. The patient will participate in group, recreational, and milieu therapies and will be offered additional individual and family sessions as clinically appropriate. -Continue sertraline 200mg qd, trazodone 150mg qhs, prazosin 1mg qhs, gabapentin 600mg BID -Taper Keppra as concern this is adding to irritability, will reduce to 500mg BID with plan for taper to discontinuation -Continue to monitor and encourage po intake -No available records from the [facility] as discharge paperwork has not yet been completed from her stay Inventory Assets Strengths: supportive relationships, outpatient providers, had period of outpatient stability in the past, manages medical issues Needs: safety and stabilization, medication adjustment, additional coping skills, increased outpatient services Suicide Risk Level Suicide Risk Level: High-Moderate (q15 min suicide checks) Suicide Risk Level Comments: High-Moderate due to severe depression with SI with plan prior to admission and intermittent ongoing SI and episodes of self-harm but is able to safety contract and agrees to let nursing/staff know should she develop specific plan, intent or feel unable to remain safe. Risk Factors Assessment : Yes Do You Have Access To A Gun?: No Health Problems: Yes Mental Health Diagnoses: Yes Substance Use Disorders: No Previous Attempt: Yes Previous Psychiatric Hospitalization: Yes Hopelessness: Yes Protective Factors Assessment : Yes Employed: No Stable Relationships: Yes Supportive Family: Yes Interval History Identifying Information MAKENZIE COSTA is a 21-year-old F who currently lives in [place] with her and in-laws, has a history of MDD with psychotic features, PTSD, BPD, Brock brock disease, superior mesenteric venous thrombus, asplenia and was admitted on 05/27/22 22:55 on a 302 involuntary commitment for SI with plan of overdosing on medications. Chief Complaint "I'm ok". Review of Systems Sleep Information Total Hours of Sleep: 5.5 Meal Information Percent Meal Consumed - Breakfast: 85 Percent Meal Consumed - Lunch: 100 Percent Meal Consumed - Dinner: 75 Subjective Subjective Patient was seen & assessed and interval progress reviewed with treatment team nursing and social work. Isolative to her room. Has a cough and reporting body aches. COVID test last night was negative. Today still with cough but afebrile, normal vitals. She denies SOB, chest pain. SI but today feels these thoughts are "faint". Physical Exam Psychiatric Orientation: alert and oriented x 3 Apperance: appropriately dressed and appropriately groomed Eye Contact: good eye contact Motor Behavior: no abnormal motor movements Speech: normal rate/rhythm/volume of speech Affect: + depressed affect Mood: + depressed mood Thought Process: goal directed thought process and + concrete thought process Thought Content: reality based without delusions Suicidal Thoughts: denies suicidal plan and denies suicidal intent; + reports suicidal thoughts (intermittent) Homicidal Thoughts: denies homicidal thoughts Hallucinations: no auditory hallucinations and no visual hallucinations Cognition: recent memory grossly intact, remote memory grossly intact, attention grossly intact and language grossly intact Estimated Intelligence: consistent with education level Insight: + limited insight Judgement: + limited judgement Vital Signs (Past 24 Hours) Last Vital Signs Temp 36.7 C 06/14/22 06:52 Pulse 89 06/14/22 06:54 Resp 18 06/14/22 06:52 BP 115/76 06/14/22 06:54 Pulse Ox 97 05/31/22 20:47 O2 Del Method 05/30/22 21:00 Results & Data ([facility]) Laboratory Results Laboratory Results - last 24 hr 06/13/22 21:21 SARS-CoV-2 (PCR) NEGATIVE Current Inpatient Medications Current Inpatient Medications: Current Inpatient Medications Acetaminophen (Acetaminophen 325 Mg Tab) 650 mg PO Q4H PRN PRN Reason: Headache or Minor Fever Stop: 06/27/22 00:29 Last Admin: 06/13/22 18:50 Dose: 650 mg Al Hydrox/Mg Hydrox/Simethicone (Aluminum/Magnesium Susp 30 Ml Udc) 30 ml PO Q4H PRN PRN Reason: GI Upset Stop: 06/27/22 00:29 Apixaban (Apixaban 5 Mg Tablet) 5 mg PO BID RENU Stop: 07/04/22 09:44 Last Admin: 06/14/22 08:48 Dose: 5 mg Bacitracin (Bacitracin Oint 15 Gm Tube) 1 appln EXT BID RENU Stop: 07/05/22 14:24 Last Admin: 06/14/22 08:49 Dose: 1 appln Dicyclomine HCl (Dicyclomine Hcl 10 Mg Cap) 10 mg PO QID PRN PRN Reason: ABD PAIN Stop: 06/27/22 16:10 Last Admin: 06/09/22 17:52 Dose: 10 mg Famotidine (Famotidine 20 Mg Tab) 20 mg PO BID PRN PRN Reason: Acid Reflux Stop: 06/27/22 16:10 Gabapentin (Gabapentin 600 Mg Tab) 600 mg PO TID RENU Stop: 06/27/22 20:59 Last Admin: 06/14/22 08:48 Dose: 600 mg [place] Carbonate ([place] Carbonate Slow Rel 300 Mg Tab) 300 mg PO QD@08 RENU Stop: 07/12/22 07:59 Last Admin: 06/14/22 08:48 Dose: 300 mg [place] Carbonate ([place] Carbonate Slow Rel 300 Mg Tab) 600 mg PO HS RENU Stop: 07/11/22 21:59 Last Admin: 06/13/22 20:52 Dose: 600 mg Lorazepam (Lorazepam 0.5 Mg Tab) 0.5 mg PO Q6 PRN PRN Reason: Anxiety Stop: 07/03/22 12:07 Last Admin: 06/12/22 20:35 Dose: 0.5 mg Magnesium Hydroxide (Magnesium Hydroxide Susp 30 Ml Udc) 30 ml PO DAILY PRN PRN Reason: Constipation Stop: 06/27/22 00:29 Menthol (Cough Drop (Sugar Free) Wenceslao 24 Wenceslao/1 Box) 1 wenceslao BUCCAL Q1HWA PRN PRN Reason: Sore Throat Stop: 07/05/22 14:23 Last Admin: 06/05/22 14:34 Dose: 1 wenceslao Olanzapine (Olanzapine 5 Mg Tablet) 5 mg PO Q6 PRN PRN Reason: Anxiety/Agitation Stop: 07/01/22 17:59 Last Admin: 06/12/22 16:15 Dose: 5 mg Olanzapine (Olanzapine 5 Mg Tablet) 5 mg PO BID RENU Stop: 07/07/22 11:59 Last Admin: 06/14/22 08:48 Dose: 5 mg Prazosin HCl (Prazosin Hcl 1 Mg Cap) 1 mg PO HS RENU Stop: 06/27/22 21:59 Last Admin: 06/13/22 20:53 Dose: 1 mg Propranolol HCl (Propranolol Hcl 20 Mg Tab) 20 mg PO BID RENU Stop: 06/27/22 20:59 Last Admin: 06/14/22 08:48 Dose: 20 mg Sodium Chloride (Sodium Chloride 0.65% Na Soln 45 Ml ([place])) 1 - 2 sprays NA PRN PRN PRN Reason: Nasal Dryness/Congestion Stop: 06/27/22 00:29 Trazodone HCl (Trazodone Hcl 50 Mg Tab) 150 mg PO HS RENU Stop: 06/27/22 21:59 Last Admin: 06/13/22 20:53 Dose: 150 mg Mental Health & Subst Abuse Tx Psychiatrist Name of Psychiatrist: [email or web address] Psychiatrist's Date of Appointment with Psychiatrist: 06/06/22 Time of Appointment with Psychiatrist: 2:20PM Psychiatric Appointment Comment: [address] [place] [address] Therapist Name of Therapist: Jazzmine Galvan Therapist's Date of Therapist Appointment: 06/14/22 Time of Therapist Appointment: 9 AM Therapy Appointment Comment: [address] [facility], [address], [place] [address] Cement Finisher Name of Cement Finisher: Andreea Soares Phone Number for Cement Finisher: [phone] Case Management Appointment Comment: Please resume your normal schedule. Post Discharge Appointments Primary Care Physician Name Of Family Doctor: Bubba Chaparro Primary Care Date of Appointment with PCP: 06/06/22 Time of Appointment with PCP: 10:45 AM Provider Appointment Comment: [address] [facility], [place] [address] Contact Information Discharge Discharge Address: [address] [place] [id number]
[2022-06-14] MEDS: traZODone HCL 50 MG TAB PO SCH (21:02)
[2022-06-14] MEDS: PRAZOSIN HCL 1 MG CAP PO SCH (21:02)
[2022-06-14] MEDS: ACETAMINOPHEN 325 MG TAB PO PRN (21:12)
[2022-06-15] MEDS: LITHIUM CARBONATE SLOW REL 300 MG TAB PO SCH ×2 (08:44→20:37)
[2022-06-15] MEDS: GABAPENTIN 600 MG TAB PO SCH ×3 (08:44→20:35)
[2022-06-15] MEDS: APIXABAN 5 MG TABLET PO SCH ×2 (08:44→20:34)
[2022-06-15] MEDS: OLANZapine 5 MG TABLET PO SCH ×2 (08:44→20:35)
[2022-06-15] MEDS: PROPRANOLOL HCL 20 MG TAB PO SCH ×2 (08:44→20:36)
[2022-06-15] MEDS: BACITRACIN OINT 15 GM TUBE EXT SCH ×2 (08:45→20:34)
--- NOTE | 2022-06-15 13:20 | Psychiatric Progress Note ---
Date of Service June 15, 2022 Impression / Recommendations Impression The patient is a 21 year old with a history of BPD, PTSD and MDD with psychotic features with multiple recent psychiatric hospitalizations, this is the fifth since mid-March, for SI with plan of overdosing and continuing decompensation in the outpatient setting, no longer working. Converted to 304 on 06/06/22. Patient has been hospitalized 6 times in the past year[place], [facility] x 3 in March 2022, [facility] May 2021 and would benefit from more extended stay facility. Ongoing dysregulation, SI with mild SIB (head tapping) MNPR due to asplenic and high community prevalence of COVID as well as periods of emotional and behavioral dysregulation with self-harming 06/15/22:Mood improving, still with SI but lessening. (1) Depression with suicidal ideation: (2) Borderline personality disorder: (3) Eating disorder, unspecified: (4) Acquired asplenia: (5) PTSD (post-traumatic stress disorder): Plan 06/15/22: Continue current medications and tx plan. Li level scheduled for 06/17/22 before AM dose for 5 day level since dose adjustment. 06/14/22: Continue current medication and tx plan. 06/13/22: Continue current medication and tx plan. 06/12/22: Continue with current medications and tx plan. 06/11/22: Increase Rivergrove to 300mg qAM & 600mg qhs 06/10/22: Continue current medications and tx plan. Consider further titration of lithium tomorrow. 06/09/22: Continue with current medications and tx plan. 06/08/22: d/c safe tray, continue current meds and tx plan. 06/07/22: hospitalist consult appreciated. Routine monitoring for Eliquis. Risks/benefits/alternatives reviewed lithium for mood stabilization. Discussion included but was not limited to risks of toxicity in overdose and need for ongoing blood monitoring (levels, kidney function, and thyroid). The patient was made aware to avoid regular use of NSAIDs as can increase levels and that lithium may need to be held during GI or other illnesses that result in dehydration. Will start Rivergrove 300 mg Bid and titrate. 06/06/22: 304 commitment granted. EKG and CXR reviewed. Routine hospitalist consult for medical clearance. 06/05/22: compliant with Eliquis, [facility] declined, [facility] cannot accept out of county referrals. Treatment team discussion around [facility] referral. Will need CXR, EKG for clearance and 304 commitment so paperwork completed. Patient is voicing agreement with this plan. 06/04/22: d/c 1-on-1, INR less than 2 so change to Eliquis 5 mg BID to improve compliance. [facility] is an acute care facility, will explore referral to [facility]. 06/03/22: patient prefers to d/c Zoloft and monitor for discontinuation syndrome rather than tapering, agreeable to Zyprexa standing order at . Prn Ativan in place of Vistaril which is ineffective. Consider switch from Coumadin to Lovenox as patient cannot afford Eliquis. 06/02/22: d/c 1-on-1, patient's room being moved to [facility]. Consider longer term hospital referral. Keppra has been discontinued, has Zyprexa prn (previously helpful) and Zoloft held for now in case activating. 06/01/22: Continue current medication and tx plan. If she continues to refuse coumadin consider medication over objection. Will place cuffer consult given history of unspecified eating disorder which seems to impact her mood significantly. 05/31/22: 303 commitment granted. Decrease Keppra to 250mg BID and then discontinue. Consider taper of gabapentin but fo now helping with anxiety. 05/30/22: Continue to encourage po intake and medications. Pursuing 303 commitment and likely medication over objection if she continues to refuse warfarin. Per discussion with [facility] hospitalist consult provider alternative formulations available for treating the thrombus would be Lovenox 70mg q12h or Eliquis 5mg BID. Prior to admission she was being prescribed warfarin 7.5mg MWF and 5mg SSTTh. 05/29/22: Continue to encourage adherence with medications and po intake. Continue efforts for labwork to check INR. External med rec also notable for venlafaxine 150mg BID. Given maximum dose of sertraline and her ongoing refusal for medications will avoid restarting this given serotonin syndrome risk with concurrent sertraline and now through most of the withdrawal symptoms period/refusing all medications. 05/28/22: The patient was admitted to the [facility] ([facility] mental [facility] unit) on q15 min checks (behavioral with suicide precautions) for safety. The patient will participate in group, recreational, and milieu therapies and will be offered additional individual and family sessions as clinically appropriate. -Continue sertraline 200mg qd, trazodone 150mg qhs, prazosin 1mg qhs, gabapentin 600mg BID -Taper Keppra as concern this is adding to irritability, will reduce to 500mg BID with plan for taper to discontinuation -Continue to monitor and encourage po intake -No available records from the [facility] [place] as discharge paperwork has not yet been completed from her stay Inventory Assets Strengths: supportive relationships, outpatient providers, had period of outpatient stability in the past, manages medical issues Needs: safety and stabilization, medication adjustment, additional coping skills, increased outpatient services Suicide Risk Level Suicide Risk Level: High-Moderate (q15 min suicide checks) Suicide Risk Level Comments: High-Moderate due to severe depression with SI with plan prior to admission and intermittent ongoing SI and episodes of self-harm but is able to safety contract and agrees to let nursing/staff know should she develop specific plan, intent or feel unable to remain safe. Risk Factors Assessment : Yes Do You Have Access To A Gun?: No Health Problems: Yes Mental Health Diagnoses: Yes Substance Use Disorders: No Previous Attempt: Yes Previous Psychiatric Hospitalization: Yes Hopelessness: Yes Protective Factors Assessment : Yes Employed: No Stable Relationships: Yes Supportive Family: Yes Interval History Identifying Information MAKENZIE COSTA is a 21-year-old F who currently lives in [place] with her and in-laws, has a history of MDD with psychotic features, PTSD, BPD, Brock brock disease, superior mesenteric venous thrombus, asplenia and was admitted on 05/27/22 22:55 on a 302 involuntary commitment for SI with plan of overdosing on medications. Chief Complaint "I'm pretty good today". Review of Systems Sleep Information Total Hours of Sleep: 7.5 Meal Information Percent Meal Consumed - Breakfast: 100 Percent Meal Consumed - Lunch: 100 Percent Meal Consumed - Dinner: 85 Subjective Subjective Patient was seen & assessed and interval progress reviewed with treatment team nursing and social work. Still with cough, worse at night but otherwise feeling better physically today. At home uses tesalon pearls which she finds helpful and albuterol prn when she has a cold. Feels her mood is improving due to lessening of SI. Still has some SI but she feels it's much easier to distract from. Denies any medication side effects. She feels the current combination of medications is working well. Physical Exam Psychiatric Orientation: alert and oriented x 3 Apperance: appropriately dressed and appropriately groomed Eye Contact: good eye contact Motor Behavior: no abnormal motor movements Speech: normal rate/rhythm/volume of speech Affect: + constricted affect Mood: + depressed mood Thought Process: goal directed thought process and + concrete thought process Thought Content: reality based without delusions Suicidal Thoughts: denies suicidal plan and denies suicidal intent; + reports suicidal thoughts (intermittent) Homicidal Thoughts: denies homicidal thoughts Hallucinations: no auditory hallucinations and no visual hallucinations Cognition: recent memory grossly intact, remote memory grossly intact, attention grossly intact and language grossly intact Estimated Intelligence: consistent with education level Insight: + limited insight Judgement: + limited judgement Vital Signs (Past 24 Hours) Last Vital Signs Temp 36.5 C 06/15/22 06:00 Pulse 77 06/15/22 06:34 Resp 16 06/15/22 06:00 BP 106/73 06/15/22 06:34 Pulse Ox 97 06/14/22 20:39 O2 Del Method 06/14/22 20:39 Results & Data ([facility]) Current Inpatient Medications Current Inpatient Medications: Current Inpatient Medications Acetaminophen (Acetaminophen 325 Mg Tab) 650 mg PO Q4H PRN PRN Reason: Headache or Minor Fever Stop: 06/27/22 00:29 Last Admin: 06/14/22 21:12 Dose: 650 mg Al Hydrox/Mg Hydrox/Simethicone (Aluminum/Magnesium Susp 30 Ml Udc) 30 ml PO Q4H PRN PRN Reason: GI Upset Stop: 06/27/22 00:29 Apixaban (Apixaban 5 Mg Tablet) 5 mg PO BID RENU Stop: 07/04/22 09:44 Last Admin: 06/15/22 08:44 Dose: 5 mg Bacitracin (Bacitracin Oint 15 Gm Tube) 1 appln EXT BID RENU Stop: 07/05/22 14:24 Last Admin: 06/15/22 08:45 Dose: 1 appln Dicyclomine HCl (Dicyclomine Hcl 10 Mg Cap) 10 mg PO QID PRN PRN Reason: ABD PAIN Stop: 06/27/22 16:10 Last Admin: 06/09/22 17:52 Dose: 10 mg Famotidine (Famotidine 20 Mg Tab) 20 mg PO BID PRN PRN Reason: Acid Reflux Stop: 06/27/22 16:10 Gabapentin (Gabapentin 600 Mg Tab) 600 mg PO TID RENU Stop: 06/27/22 20:59 Last Admin: 06/15/22 13:16 Dose: 600 mg Rivergrove Carbonate (Rivergrove Carbonate Slow Rel 300 Mg Tab) 300 mg PO QD@08 RENU Stop: 07/12/22 07:59 Last Admin: 06/15/22 08:44 Dose: 300 mg [place]grove Carbonate (Rivergrove Carbonate Slow Rel 300 Mg Tab) 600 mg PO HS RENU Stop: 07/11/22 21:59 Last Admin: 06/14/22 21:01 Dose: 600 mg Lorazepam (Lorazepam 0.5 Mg Tab) 0.5 mg PO Q6 PRN PRN Reason: Anxiety Stop: 07/03/22 12:07 Last Admin: 06/12/22 20:35 Dose: 0.5 mg Magnesium Hydroxide (Magnesium Hydroxide Susp 30 Ml Udc) 30 ml PO DAILY PRN PRN Reason: Constipation Stop: 06/27/22 00:29 Menthol (Cough Drop (Sugar Free) Wenceslao 24 Wenceslao/1 Box) 1 wenceslao BUCCAL Q1HWA PRN PRN Reason: Sore Throat Stop: 07/05/22 14:23 Last Admin: 06/05/22 14:34 Dose: 1 wenceslao Olanzapine (Olanzapine 5 Mg Tablet) 5 mg PO Q6 PRN PRN Reason: Anxiety/Agitation Stop: 07/01/22 17:59 Last Admin: 06/12/22 16:15 Dose: 5 mg Olanzapine (Olanzapine 5 Mg Tablet) 5 mg PO BID RENU Stop: 07/07/22 11:59 Last Admin: 06/15/22 08:44 Dose: 5 mg Prazosin HCl (Prazosin Hcl 1 Mg Cap) 1 mg PO HS RENU Stop: 06/27/22 21:59 Last Admin: 06/14/22 21:02 Dose: 1 mg Propranolol HCl (Propranolol Hcl 20 Mg Tab) 20 mg PO BID RENU Stop: 06/27/22 20:59 Last Admin: 06/15/22 08:44 Dose: 20 mg Sodium Chloride (Sodium Chloride 0.65% Na Soln 45 Ml ([place])) 1 - 2 sprays NA PRN PRN PRN Reason: Nasal Dryness/Congestion Stop: 06/27/22 00:29 Trazodone HCl (Trazodone Hcl 50 Mg Tab) 150 mg PO HS RENU Stop: 06/27/22 21:59 Last Admin: 06/14/22 21:02 Dose: 150 mg Mental Health & Subst Abuse Tx Psychiatrist Name of Psychiatrist: [facility] Psych[facility]rist[facility] Date of Appointment with Psychiatrist: 06/06/22 Time of Appointment with Psychiatrist: 2:20PM Psychiatric Appointment Comment: [address] [place] [address] Therapist Name of Therapist: Jazzmine Galvan Therapist's Date of Therapist Appointment: 06/14/22 Time of Therapist Appointment: 9 AM Therapy Appointment Comment: [address], [address], [place] [address] Hand Upper And Bottom Lacer Name of Hand Upper And Bottom Lacer: Andreea Soares Phone Number for Hand Upper And Bottom Lacer: [phone] Case Management Appointment Comment: Please resume your normal schedule. Post Discharge Appointments Primary Care Physician Name Of Family Doctor: Bubba Chaparro Primary Care Date of Appointment with PCP: 06/06/22 Time of Appointment with PCP: 10:45 AM Provider Appointment Comment: [address] [facility], [place] [address] Contact Information Discharge Discharge Address: [address] [place] [id number]
[2022-06-15] MEDS ORDERED: BENZONATATE 100 MG CAPSULE PO PRN (17:14)
[2022-06-15] MEDS: traZODone HCL 50 MG TAB PO SCH (20:38)
[2022-06-15] MEDS: PRAZOSIN HCL 1 MG CAP PO SCH (20:38)
[2022-06-16] MEDS: BACITRACIN OINT 15 GM TUBE EXT SCH ×2 (09:05→21:33)
[2022-06-16] MEDS: LITHIUM CARBONATE SLOW REL 300 MG TAB PO SCH ×2 (09:05→21:33)
[2022-06-16] MEDS: APIXABAN 5 MG TABLET PO SCH ×2 (09:05→21:33)
[2022-06-16] MEDS: GABAPENTIN 600 MG TAB PO SCH ×3 (09:05→21:33)
[2022-06-16] MEDS: OLANZapine 5 MG TABLET PO SCH ×2 (09:06→21:33)
[2022-06-16] MEDS: PROPRANOLOL HCL 20 MG TAB PO SCH ×2 (09:06→21:33)
--- NOTE | 2022-06-16 10:03 | Psychiatric Progress Note ---
Date of Service June 16, 2022 Impression / Recommendations Impression The patient is a 21 year old with a history of BPD, PTSD and MDD with psychotic features with multiple recent psychiatric hospitalizations, this is the fifth since mid-March, for SI with plan of overdosing and continuing decompensation in the outpatient setting, no longer working. Converted to 304 on 06/06/22. Patient has been hospitalized 6 times in the past year:[facility] for 3 weeks in Apr 2022, [facility] x 3 in March 2022, [facility] May 2021 and would benefit from more extended stay facility. Ongoing dysregulation, SI with mild SIB (head tapping) MNPR due to asplenic and high community prevalence of COVID as well as periods of emotional and behavioral dysregulation with self-harming 06/16/22: improving (1) Depression with suicidal ideation: (2) Borderline personality disorder: (3) Eating disorder, unspecified: (4) Acquired asplenia: (5) PTSD (post-traumatic stress disorder): Plan 06/16/22: continue current medication and tx plan. 06/15/22: Continue current medications and tx plan. Li level scheduled for 06/17/22 before AM dose for 5 day level since dose adjustment. 06/14/22: Continue current medication and tx plan. 06/13/22: Continue current medication and tx plan. 06/12/22: Continue with current medications and tx plan. 06/11/22: Increase [place] to 300mg qAM & 600mg qhs 06/10/22: Continue current medications and tx plan. Consider further titration of lithium tomorrow. 06/09/22: Continue with current medications and tx plan. 06/08/22: d/c safe tray, continue current meds and tx plan. 06/07/22: hospitalist consult appreciated. Routine monitoring for Eliquis. Risks/benefits/alternatives reviewed lithium for mood stabilization. Discussion included but was not limited to risks of toxicity in overdose and need for lia oing blood monitoring (levels, kidney function, and thyroid). The patient was made aware to avoid regular use of NSAIDs as can increase levels and that lithium may need to be held during GI or other illnesses that result in dehydration. Will start [place] 300 mg Bid and titrate. 06/06/22: 304 commitment granted. EKG and CXR reviewed. Routine hospitalist consult for medical clearance. 06/05/22: compliant with Eliquis, [facility] declined, [facility] cannot accept out of county referrals. Treatment team discussion around [facility] referral. Will need CXR, EKG for clearance and 304 commitment so paperwork completed. Patient is voicing agreement with this plan. 06/04/22: d/c 1-on-1, INR less than 2 so change to Eliquis 5 mg BID to improve compliance. [facility] is an acute care facility, will explore referral to [facility]. 06/03/22: patient prefers to d/c Zoloft and monitor for discontinuation syndrome rather than tapering, agreeable to Zyprexa standing order at . Prn Ativan in place of Vistaril which is ineffective. Consider switch from Coumadin to Lovenox as patient cannot afford Eliquis. 06/02/22: d/c 1-on-1, patient's room being moved to [facility]. Consider longer term hospital referral. Keppra has been discontinued, has Zyprexa prn (previously helpful) and Zoloft held for now in case activating. 06/01/22: Continue current medication and tx plan. If she continues to refuse coumadin consider medication over objection. Will place aquatic laborer consult given history of unspecified eating disorder which seems to impact her mood significantly. 05/31/22: 303 commitment granted. Decrease Keppra to 250mg BID and then discontinue. Consider taper of gabapentin but fo now helping with anxiety. 05/30/22: Continue to encourage po intake and medications. Pursuing 303 commitment and likely medication over objection if she continues to refuse warfarin. Per discussion with [facility] hospitalist consult provider alternative formulations available for treating the thrombus would be Lovenox 70mg q12h or Eliquis 5mg BID. Prior to admission she was being prescribed warfarin 7.5mg MWF and 5mg SSTTh. 05/29/22: Continue to encourage adherence with medications and po intake. Continue efforts for labwork to check INR. External med rec also notable for venlafaxine 150mg BID. Given maximum dose of sertraline and her ongoing refusal for medications will avoid restarting this given serotonin syndrome risk with concurrent sertraline and now through most of the withdrawal symptoms period/refusing all medications. 05/28/22: The patient was admitted to the [facility] ([facility] mental health unit) on q15 min checks (behavioral with suicide precautions) for safety. The patient will participate in group, recreational, and milieu therapies and will be offered additional individual and family sessions as clinically appropriate. -Continue sertraline 200mg qd, trazodone 150mg qhs, prazosin 1mg qhs, gabapentin 600mg BID -Taper Keppra as concern this is adding to irritability, will reduce to 500mg BID with plan for taper to discontinuation -Continue to monitor and encourage po intake -No available records from the [facility] as discharge paperwork has not yet been completed from her stay Inventory Assets Strengths: supportive relationships, outpatient providers, had period of outpatient stability in the past, manages medical issues Needs: safety and stabilization, medication adjustment, additional coping skills, increased outpatient services Suicide Risk Level Suicide Risk Level: High-Moderate (q15 min suicide checks) Suicide Risk Level Comments: High-Moderate due to severe depression with SI with plan prior to admission and intermittent ongoing SI and episodes of self-harm but is able to safety contract and agrees to let nursing/staff know should she develop specific plan, intent or feel unable to remain safe. Risk Factors Assessment : Yes Do You Have Access To A Gun?: No Health Problems: Yes Mental Health Diagnoses: Yes Substance Use Disorders: No Previous Attempt: Yes Previous Psychiatric Hospitalization: Yes Hopelessness: Yes Protective Factors Assessment : Yes Employed: No Stable Relationships: Yes Supportive Family: Yes Interval History Identifying Information MAKENZIE COSTA is a 21-year-old F who currently lives in [place] with her and in-laws, has a history of MDD with psychotic features, PTSD, BPD, Brock brock disease, superior mesenteric venous thrombus, asplenia and was admitted on 05/27/22 22:55 on a 302 involuntary commitment for SI with plan of overdosing on medications. Chief Complaint "I think I'm more stable/even" Review of Systems Sleep Information Total Hours of Sleep: 7.25 Meal Information Percent Meal Consumed - Breakfast: 100 Percent Meal Consumed - Lunch: 100 Percent Meal Consumed - Dinner: 100 Subjective Subjective Patient was seen & assessed and interval progress reviewed with nursing and social work. Reports good tolerability of lithium and mood is improving, family has been educated re: crisis protocol. Physical Exam Psychiatric Orientation: alert and oriented x 3 Apperance: appropriately dressed and appropriately groomed Eye Contact: good eye contact Motor Behavior: no abnormal motor movements Speech: normal rate/rhythm/volume of speech Affect: euthymic affect Mood: + depressed mood Thought Process: goal directed thought process Thought Content: reality based without delusions Suicidal Thoughts: denies suicidal thoughts Homicidal Thoughts: denies homicidal thoughts Hallucinations: no auditory hallucinations and no visual hallucinations Cognition: attention grossly intact and language grossly intact Estimated Intelligence: consistent with education level Insight: + limited insight Judgement: + limited judgement Vital Signs (Past 24 Hours) Last Vital Signs Temp 36.7 C 06/16/22 06:30 Pulse 105 H 06/16/22 06:31 Resp 16 06/16/22 06:30 BP 106/74 06/16/22 06:31 Pulse Ox 97 06/15/22 19:49 O2 Del Method 06/15/22 19:49 Results & Data ([facility]) Current Inpatient Medications Current Inpatient Medications: Current Inpatient Medications Acetaminophen (Acetaminophen 325 Mg Tab) 650 mg PO Q4H PRN PRN Reason: Headache or Minor Fever Stop: 06/27/22 00:29 Last Admin: 06/14/22 21:12 Dose: 650 mg Al Hydrox/Mg Hydrox/Simethicone (Aluminum/Magnesium Susp 30 Ml Udc) 30 ml PO Q4H PRN PRN Reason: GI Upset Stop: 06/27/22 00:29 Apixaban (Apixaban 5 Mg Tablet) 5 mg PO BID RENU Stop: 07/04/22 09:44 Last Admin: 06/16/22 09:05 Dose: 5 mg Bacitracin (Bacitracin Oint 15 Gm Tube) 1 appln EXT BID RENU Stop: 07/05/22 14:24 Last Admin: 06/16/22 09:05 Dose: 1 appln Benzonatate (Benzonatate 100 Mg Capsule) 100 mg PO HS PRN PRN Reason: Cough Stop: 07/15/22 17:13 Last Admin: 06/15/22 20:38 Dose: 100 mg Dicyclomine HCl (Dicyclomine Hcl 10 Mg Cap) 10 mg PO QID PRN PRN Reason: ABD PAIN Stop: 06/27/22 16:10 Last Admin: 06/09/22 17:52 Dose: 10 mg Famotidine (Famotidine 20 Mg Tab) 20 mg PO BID PRN PRN Reason: Acid Reflux Stop: 06/27/22 16:10 Gabapentin (Gabapentin 600 Mg Tab) 600 mg PO TID RENU Stop: 06/27/22 20:59 Last Admin: 06/16/22 09:05 Dose: 600 mg Nazareth Carbonate ([place] Carbonate Slow Rel 300 Mg Tab) 300 mg PO QD@08 RENU Stop: 07/12/22 07:59 Last Admin: 06/16/22 09:05 Dose: 300 mg Naz[place] Carbonate ([place] Carbonate Slow Rel 300 Mg Tab) 600 mg PO HS RENU Stop: 07/11/22 21:59 Last Admin: 06/15/22 20:37 Dose: 600 mg Lorazepam (Lorazepam 0.5 Mg Tab) 0.5 mg PO Q6 PRN PRN Reason: Anxiety Stop: 07/03/22 12:07 Last Admin: 06/12/22 20:35 Dose: 0.5 mg Magnesium Hydroxide (Magnesium Hydroxide Susp 30 Ml Udc) 30 ml PO DAILY PRN PRN Reason: Constipation Stop: 06/27/22 00:29 Menthol (Cough Drop (Sugar Free) Wenceslao 24 Wenceslao/1 Box) 1 wenceslao BUCCAL Q1HWA PRN PRN Reason: Sore Throat Stop: 07/05/22 14:23 Last Admin: 06/05/22 14:34 Dose: 1 wenceslao Olanzapine (Olanzapine 5 Mg Tablet) 5 mg PO Q6 PRN PRN Reason: Anxiety/Agitation Stop: 07/01/22 17:59 Last Admin: 06/12/22 16:15 Dose: 5 mg Olanzapine (Olanzapine 5 Mg Tablet) 5 mg PO BID RENU Stop: 07/07/22 11:59 Last Admin: 06/16/22 09:06 Dose: 5 mg Prazosin HCl (Prazosin Hcl 1 Mg Cap) 1 mg PO HS RENU Stop: 06/27/22 21:59 Last Admin: 06/15/22 20:38 Dose: 1 mg Propranolol HCl (Propranolol Hcl 20 Mg Tab) 20 mg PO BID RENU Stop: 06/27/22 20:59 Last Admin: 06/16/22 09:06 Dose: 20 mg Sodium Chloride (Sodium Chloride 0.65% Na Soln 45 Ml ([place])) 1 - 2 sprays NA PRN PRN PRN Reason: Nasal Dryness/Congestion Stop: 06/27/22 00:29 Trazodone HCl (Trazodone Hcl 50 Mg Tab) 150 mg PO HS RENU Stop: 06/27/22 21:59 Last Admin: 06/15/22 20:38 Dose: 150 mg Mental Health & Subst Abuse Tx Psychiatrist Name of Psychiatrist: [facility]'s Date of Appointment with Psychiatrist: 07/05/22 Time of Appointment with Psychiatrist: 1 PM Psychiatric Appointment Comment: A link will be sent to you via text and email. Therapist Name of Therapist: Jazzmine Galvna Therapist's Date of Therapist Appointment: 07/03/22 Time of Therapist Appointment: 3 PM Therapy Appointment Comment: [address], [address], [place] [address] Tax Advisor Name of Tax Advisor: Andreea Evans Phone Number for Tax Advisor: [phone] Case Management Appointment Comment: Your director of casework department will follow-up with you directly to schedule. Post Discharge Appointments Primary Care Physician Name Of Family Doctor: Bubba Chaparro Primary Care Date of Appointment with PCP: 06/20/22 Time of Appointment with PCP: 1:45 PM Provider Appointment Comment: [address] [facility] [address], [place] [address] Contact Information Discharge Discharge Address: [address] [place] [id number]
[2022-06-16] MEDS: LORazepam 0.5 MG TAB PO PRN (11:45)
[2022-06-16] MEDS: traZODone HCL 50 MG TAB PO SCH (21:33)
[2022-06-16] MEDS: PRAZOSIN HCL 1 MG CAP PO SCH (21:33)
[2022-06-17] MEDS: PROPRANOLOL HCL 20 MG TAB PO SCH ×2 (09:12→21:08)
[2022-06-17] MEDS: APIXABAN 5 MG TABLET PO SCH ×2 (09:13→21:20)
[2022-06-17] MEDS: LITHIUM CARBONATE SLOW REL 300 MG TAB PO SCH ×2 (09:13→21:07)
[2022-06-17] MEDS: OLANZapine 5 MG TABLET PO SCH ×2 (09:14→21:08)
[2022-06-17] MEDS: GABAPENTIN 600 MG TAB PO SCH ×3 (09:14→21:08)
[2022-06-17] MEDS: BACITRACIN OINT 15 GM TUBE EXT SCH ×2 (09:14→21:09)
[2022-06-17] MEDS: LORazepam 0.5 MG TAB PO PRN ×2 (11:45→21:08)
--- NOTE | 2022-06-17 12:07 | Psychiatric Progress Note ---
Date of Service June 17, 2022 Impression / Recommendations Impression The patient is a 21 year old with a history of BPD, PTSD and MDD with psychotic features with multiple recent psychiatric hospitalizations, this is the fifth since mid-March, for SI with plan of overdosing and continuing decompensation in the outpatient setting, no longer working. Converted to 304 on 06/06/22. Patient has been hospitalized 6 times in the past year:[facility] for 3 weeks in Apr 2022, [facility] x 3 in March 2022, [facility] May 2021 and would benefit from more extended stay facility. Ongoing dysregulation, SI with mild SIB (head tapping) MNPR due to asplenic and high community prevalence of COVID as well as periods of emotional and behavioral dysregulation with self-harming 06/17/22: improving (1) Depression with suicidal ideation: (2) Borderline personality disorder: (3) Eating disorder, unspecified: (4) Acquired asplenia: (5) PTSD (post-traumatic stress disorder): Plan 06/17/22: lithium level low therapeutic range 0.6, continue current meds, 306 conversion to outpatient on 06/18/22 when critical access hospital reope. 06/16/22: continue current medication and tx plan. 06/15/22: Continue current medications and tx plan. Li level scheduled for before AM dose for 5 day level since dose adjustment. 06/14/22: Continue current medication and tx plan. 06/13/22: Continue current medication and tx plan. 06/12/22: Continue with current medications and tx plan. 06/11/22: Increase Paulina to 300mg qAM & 600mg qhs 06/10/22: Continue current medications and tx plan. Consider further titration of lithium tomorrow. 06/09/22: Continue with current medications and tx plan. 06/08/22: d/c safe tray, continue current meds and tx plan. 06/07/22: hospitalist consult appreciated. Routine monitoring for Eliquis. Risks/benefits/alternatives reviewed lithium for mood stabilization. Discussion included but was not limited to risks of toxicity in overdose and need for ongoing blood monitoring (levels, kidney function, and thyroid). The patient was made aware to avoid regular use of NSAIDs as can increase levels and that lithium may need to be held during GI or other illnesses that result in dehydration. Will start Paulina 300 mg Bid and titrate. 10/12/22: 304 commitment granted. EKG and CXR reviewed. Routine hospitalist consult for medical clearance. 06/05/22: compliant with Eliquis, [facility] declined, [facility] cannot accept out of county referrals. Treatment team discussion around [facility] referral. Will need CXR, EKG for clearance and 304 commitment so paperwork completed. Patient is voicing agreement with this plan. 06/04/22: d/c 1-on-1, INR less than 2 so change to Eliquis 5 mg BID to improve compliance. [facility] is an acute care facility, will explore referral to [facility]. 06/03/22: patient prefers to d/c Zoloft and monitor for discontinuation syndrome rather than tapering, agreeable to Zyprexa standing order at . Prn Ativan in place of Vistaril which is ineffective. Consider switch from Coumadin to Lovenox as patient cannot afford Eliquis. 06/02/22: d/c 1-on-1, patient's room being moved to [facility]. Consider longer term hospital referral. Keppra has been discontinued, has Zyprexa prn (previously helpful) and Zoloft held for now in case activating. 06/01/22: Continue current medication and tx plan. If she continues to refuse coumadin consider medication over objection. Will place underwriting consultant consult given history of unspecified eating disorder which seems to impact her mood significantly. 05/31/22: 303 commitment granted. Decrease Keppra to 250mg BID and then discontinue. Consider taper of gabapentin but fo now helping with anxiety. 05/30/22: Continue to encourage po intake and medications. Pursuing 303 commitment and likely medication over objection if she continues to refuse warfarin. Per discussion with [facility] hospitalist consult provider alternative formulations available for treating the thrombus would be Lovenox 70mg q12h or Eliquis 5mg BID. Prior to admission she was being prescribed warfarin 7.5mg MWF and 5mg SSTTh. 05/29/22: Continue to encourage adherence with medications and po intake. Continue efforts for labwork to check INR. External med rec also notable for venlafaxine 150mg BID. Given maximum dose of sertraline and her ongoing refusal for medications will avoid restarting this given serotonin syndrome risk with concurrent sertraline and now through most of the withdrawal symptoms period/refusing all medications. 05/28/22: The patient was admitted to the [facility] ([facility] health unit) on q15 min checks (behavioral with suicide precautions) for safety. The patient will participate in group, recreational, and milieu therapies and will be offered additional individual and family sessions as clinically appropriate. -Continue sertraline 200mg qd, trazodone 150mg qhs, prazosin 1mg qhs, gabapentin 600mg BID -Taper Keppra as concern this is adding to irritability, will reduce to 500mg BID with plan for taper to discontinuation -Continue to monitor and encourage po intake -No available records from the [facility] as discharge paperwork has not yet been completed from her stay Inventory Assets Strengths: supportive relationships, outpatient providers, had period of outpatient stability in the past, manages medical issues Needs: safety and stabilization, medication adjustment, additional coping skills, increased outpatient services Suicide Risk Level Suicide Risk Level: Moderate (q15 min suicide checks) Risk Factors Assessment : Yes Do You Have Access To A Gun?: No Health Problems: Yes Mental Health Diagnoses: Yes Substance Use Disorders: No Previous Attempt: Yes Previous Psychiatric Hospitalization: Yes Hopelessness: Yes Protective Factors Assessment : Yes Employed: No Stable Relationships: Yes Supportive Family: Yes Interval History Identifying Information MAKENZIE COSTA is a 21-year-old F who currently lives in [place] with her and in-laws, has a history of MDD with psychotic features, PTSD, BPD, Brock brock disease, superior mesenteric venous thrombus, asplenia and was admitted on 05/27/22 22:55 on a 302 involuntary commitment for SI with plan of overdosing on medications. Chief Complaint "when can I leave?" Review of Systems Sleep Information Total Hours of Sleep: 7.75 Meal Information Percent Meal Consumed - Breakfast: 100 Percent Meal Consumed - Lunch: 100 Percent Meal Consumed - Dinner: 100 Subjective Subjective Patient was seen & assessed and interval progress reviewed with nursing and social work. cooperative with blood work, please that Eliquis will be covered on insurance. Reviewed rationale for conversion of 304 to outpatient. Physical Exam Psychiatric Orientation: alert and oriented x 3 Apperance: appropriately dressed and appropriately groomed Eye Contact: good eye contact Motor Behavior: no abnormal motor movements Speech: normal rate/rhythm/volume of speech Affect: euthymic affect Mood: no anxious mood Thought Process: goal directed thought process Thought Content: reality based without delusions Suicidal Thoughts: denies suicidal thoughts Homicidal Thoughts: denies homicidal thoughts Hallucinations: no auditory hallucinations and no visual hallucinations Cognition: attention grossly intact and language grossly intact Estimated Intelligence: consistent with education level Insight: + limited insight Judgement: + limited judgement Vital Signs (Past 24 Hours) Last Vital Signs Temp 36.4 C L 06/17/22 06:31 Pulse 106 H 06/17/22 09:11 Resp 16 06/17/22 06:31 BP 99/61 L 06/17/22 09:11 Pulse Ox 97 06/16/22 21:11 O2 Del Method 06/16/22 21:11 Results & Data ([facility]) Laboratory Results Laboratory Results - last 24 hr 06/17/22 07:55 Paulina 0.6 Current Inpatient Medications Current Inpatient Medications: Current Inpatient Medications Acetaminophen (Acetaminophen 325 Mg Tab) 650 mg PO Q4H PRN PRN Reason: Headache or Minor Fever Stop: 06/27/22 00:29 Last Admin: 06/14/22 21:12 Dose: 650 mg Al Hydrox/Mg Hydrox/Simethicone (Aluminum/Magnesium Susp 30 Ml Udc) 30 ml PO Q4H PRN PRN Reason: GI Upset Stop: 06/27/22 00:29 Apixaban (Apixaban 5 Mg Tablet) 5 mg PO BID RENU Stop: 07/04/22 09:44 Last Admin: 06/17/22 09:13 Dose: 5 mg Bacitracin (Bacitracin Oint 15 Gm Tube) 1 appln EXT BID RENU Stop: 07/05/22 14:24 Last Admin: 06/17/22 09:14 Dose: 1 appln Benzonatate (Benzonatate 100 Mg Capsule) 100 mg PO HS PRN PRN Reason: Cough Stop: 07/15/22 17:13 Last Admin: 06/15/22 20:38 Dose: 100 mg Dicyclomine HCl (Dicyclomine Hcl 10 Mg Cap) 10 mg PO QID PRN PRN Reason: ABD PAIN Stop: 06/27/22 16:10 Last Admin: 06/09/22 17:52 Dose: 10 mg Famotidine (Famotidine 20 Mg Tab) 20 mg PO BID PRN PRN Reason: Acid Reflux Stop: 06/27/22 16:10 Gabapentin (Gabapentin 600 Mg Tab) 600 mg PO TID RENU Stop: 06/27/22 20:59 Last Admin: 06/17/22 09:14 Dose: 600 mg Paulina Carbonate (Paulina Carbonate Slow Rel 300 Mg Tab) 300 mg PO QD@08 RENU Stop: 07/12/22 07:59 Last Admin: 06/17/22 09:13 Dose: 300 mg Paulina Carbonate (Paulina Carbonate Slow Rel 300 Mg Tab) 600 mg PO HS RENU Stop: 07/11/22 21:59 Last Admin: 06/16/22 21:33 Dose: 600 mg Lorazepam (Lorazepam 0.5 Mg Tab) 0.5 mg PO Q6 PRN PRN Reason: Anxiety Stop: 07/03/22 12:07 Last Admin: 06/17/22 11:45 Dose: 0.5 mg Magnesium Hydroxide (Magnesium Hydroxide Susp 30 Ml Udc) 30 ml PO DAILY PRN PRN Reason: Constipation Stop: 06/27/22 00:29 Menthol (Cough Drop (Sugar Free) Wenceslao 24 Wenceslao/1 Box) 1 wenceslao BUCCAL Q1HWA PRN PRN Reason: Sore Throat Stop: 07/05/22 14:23 Last Admin: 06/05/22 14:34 Dose: 1 wenceslao Olanzapine (Olanzapine 5 Mg Tablet) 5 mg PO Q6 PRN PRN Reason: Anxiety/Agitation Stop: 07/01/22 17:59 Last Admin: 06/12/22 16:15 Dose: 5 mg Olanzapine (Olanzapine 5 Mg Tablet) 5 mg PO BID RENU Stop: 07/07/22 11:59 Last Admin: 06/17/22 09:14 Dose: 5 mg Prazosin HCl (Prazosin Hcl 1 Mg Cap) 1 mg PO HS RENU Stop: 06/27/22 21:59 Last Admin: 06/16/22 21:33 Dose: 1 mg Propranolol HCl (Propranolol Hcl 20 Mg Tab) 20 mg PO BID RENU Stop: 06/27/22 20:59 Last Admin: 06/17/22 09:12 Dose: Not Given Sodium Chloride (Sodium Chloride 0.65% Na Soln 45 Ml ([place])) 1 - 2 sprays NA PRN PRN PRN Reason: Nasal Dryness/Congestion Stop: 06/27/22 00:29 Trazodone HCl (Trazodone Hcl 50 Mg Tab) 150 mg PO HS RENU Stop: 06/27/22 21:59 Last Admin: 06/16/22 21:33 Dose: 150 mg Mental Health & Subst Abuse Tx Psychiatrist Name of Psychiatrist: [facility] Date of Appointment with Psychiatrist: 07/05/22 Time of Appointment with Psychiatrist: 1 PM Psychiatric Appointment Comment: A link will be sent to you via text and email. Therapist Name of Therapist: Jazzmine Galvan Therapist's Date of Therapist Appointment: 07/03/22 Time of Therapist Appointment: 3 PM Therapy Appointment Comment: [address], [address], [place] [address] Service Secretary Name of Service Secretary: Andreea Evans Phone Number for Service Secretary: [phone] Case Management Appointment Comment: Your foster care case manager will follow-up with you directly to schedule. Post Discharge Appointments Primary Care Physician Name Of Family Doctor: [facility] Date of Appointment with PCP: 06/20/22 Time of Appointment with PCP: 1:45 PM Provider Appointment Comment: [address], [place] [address] Contact Information Discharge Discharge Address: [address] [place], [place] [address] [id number]
[2022-06-17] MEDS: PRAZOSIN HCL 1 MG CAP PO SCH (21:09)
[2022-06-17] MEDS: traZODone HCL 50 MG TAB PO SCH (21:09)
[2022-06-18] MEDS: LITHIUM CARBONATE SLOW REL 300 MG TAB PO SCH (08:39)
[2022-06-18] MEDS: APIXABAN 5 MG TABLET PO SCH (08:39)
[2022-06-18] MEDS: BACITRACIN OINT 15 GM TUBE EXT SCH (08:39)
[2022-06-18] MEDS: PROPRANOLOL HCL 20 MG TAB PO SCH (08:40)
[2022-06-18] MEDS: OLANZapine 5 MG TABLET PO SCH (08:40)
[2022-06-18] MEDS: GABAPENTIN 600 MG TAB PO SCH (08:40)
--- NOTE | 2022-06-18 08:50 | Discharge Summary ---
Date of Service June 18, 2022 History of Present Illness As per Dr. Mendez on admission: Delfina is well known to our service and presents for psychiatric admission for worsening depression and SI with plan of overdosing on her medications after she told her of her plan and he contacted EMS. She would not agree to voluntary treatment and is on a 302 commitment. This is her fifth hospitalization since mid-March and was just discharged from [facility] after a three week admission on May 21. Since admission last night to [facility] she has been continuing to endorse SI and has been lying in the quiet room all day refusing to engage or engaging only minimally. She feels the [facility] hospitalization was helpful and that she benefitting from her medications but that a few days ago she started to feel depressed again and have SI. She cannot identify any acute stressors or precipitants to her SI. She continues to feel depressed reporting no po intake over the last two days stating a desire to , "I'm going to starve myself so I can kill myself". She feels very hopeless. She denies any voices or auditory hallucinations. She was recently fired from her job in early April. She states she has been adherent with her Coumadin as well as the medications started at the [facility] which include: sertraline, Keppra (she confirms this was for mood symptoms, denies any history of nor recent seizures), prazosin, gabapentin, and trazodone. Initially had been reports of recent venlafaxine 150mg BID as well. Further history reviewed per ED case management note on 05/27/22: "Met with Delfina bedside. Delfina stated "I was suicidal and planning to OD on all my pills. My called 911." Delfina stated she had all of her medication bottles with intent to take them all. She reports prior suicide attempt by OD in 2019. [...] She reports increasing paranoia that people are out to get her. She is unable to identify a specific stressors stating "it's just my depression." Delfina is not agreeable with recommendation for inpatient mental health treatment. Explained involuntary commitment process and petitioning statement. Delfina stated she has been 302'd before and "just do what you need to do."" Further history limited by her reluctance/inability to engage with the interview. She has a history of restrictive eating disorder as well as PTSD and hearing voices and was self-harming during her admission at the [facility] using a spork. No known history of sarmad. Physical Exam Psychiatric See admission H&P and DOD assessment. Vital Signs (Past 24 Hours) Last Vital Signs Temp 36.5 C 06/18/22 06:45 Pulse 98 H 06/18/22 06:45 Resp 16 06/18/22 06:45 BP 104/71 06/18/22 06:45 Pulse Ox 96 06/17/22 20:54 O2 Del Method 06/17/22 20:54 Principal Diagnosis major depressive disorder Psychiatric Data See daily stay summary. In short, safety was maintained and the patient was initially resistant to care with acute medication/lab refusal and periods of SIB requiring 1-on-1 on 2 separate occasions. She was referred to extended acute care units and ultimately the [facility] as she was on a 303 then 304 commitment. Medication changes included d/c of Coumadin in favor of Eliquis in informal consultation with hospitalist service to improve compliance with meds/blood work. The patient had taken this med previously but couldn't afford the $60 copay at the time, currently staff confirmed was $3. Zoloft was discontinued as potentially activating as were medications started at the [facility] (keppra, Effexor) given impulsive lability, ongoing reports of rhoades suspect bipolar variant but activation on antidepressants at minimum. Improvement was noted with retrial of lithium. Given family progress in crisis/safety planning, willingness for additional community resourses, and therapeutic on lithium she stabilized for discharge to a 304 outpatient commitment. She was counseled re; risks of lithium in OD and family will continue to lock meds as they had been. Also discussed control given potential teratogenecity of psych meds. She and her are reliably using condoms since her Nexplanon was removed recently. She does plan to discuss options with [facility] providers at follow up. She voiced good understanding for need for ongoing blood and other monitoring with lithium, atypicals like Zyprexa, and Eliquis. Day of Discharge Assessment Today the patient voices readiness for discharge. They note improvement in mood and deny thoughts to harm self or others. Thoughts remain organized and they are improved from admission. There is no evidence of psychosis. They agree to take mediations as prescribed and keep follow-up appointments. They are stable for discharge to outpatient level of care. Transition of Care Transition Of Care Record: was reviewed with the patient Advance Directives Advance Directives Information Provided: Yes Advance Directives: No Mental Health Advance Directive: No Advance Directives on File: No Living Will: No Power of Triage Rn: No Advance Directives Reason:: Declines as Mental Health Visit. Suicide Risk Level Suicide Risk Level Comments: Suicide risk at discharge is deemed low as the patient is no longer requiring 24-hr monitoring, has a safety plan, and is free of suicidal ideation at discharge. Risk Factors Assessment : Yes Do You Have Access To A Gun?: No Health Problems: Yes Mental Health Diagnoses: Yes Substance Use Disorders: No Previous Attempt: Yes Previous Psychiatric Hospitalization: Yes Hopelessness: Yes Protective Factors Assessment : Yes Employed: No Stable Relationships: Yes Supportive Family: Yes Tobacco Cessation at Discharge Tobacco Cessation Medication Prescribed at Discharge: Not Applicable/Non-Smoker Total Time Total Time Spent: Greater Than 30 Minutes Total Time Includes: Examination of the patient, Discharge Planning and Medication Reconciliation Discharge Data Consultations 06/06/22 14:16 Consult Hospitalist Routine Procedures Performed EKG Chest X-Ray 06/05/22 12:14 XR chest 1V portable CLINICAL HISTORY: TB screening TECHNIQUE: Single frontal radiograph of the chest was obtained. Comparison: Comparison is made to chest radiograph 06/22/2021 FINDINGS: No lines and tubes are seen. The cardiomediastinal silhouette is normal. The lungs are clear. No evidence of pleural effusion or pneumothorax. IMPRESSION: No acute abnormality and in particular no evidence of radiographic findings of tuberculosis. ACT 112: Negative or not required by law. Electronically signed by: Rakesh Dimas M.D. 06/05/2022 1:19 PM Lab Results 05/27/22 05/27/22 05/27/22 18:26 18:26 18:26 WBC RBC Hgb Hct MCV MCH MCHC RDW Std Deviation RDW Coeff of Toni Plt Count MPV Immature Gran % (Auto) Neut % (Auto) Lymph % (Auto) [place] % (Auto) Eos % (Auto) Baso % (Auto) Neut # (Auto) Lymph # (Auto) [place] # (Auto) Eos # (Auto) Baso # (Auto) Immature Gran # (Auto) PT INR Sodium Potassium Chloride Carbon Dioxide Anion Gap BUN Creatinine Est Cr Clr Drug Dosing Est GFR ( Amer) Est GFR (Non-Af Amer) BUN/Creatinine Ratio Glucose Calcium Total Bilirubin AST ALT Alkaline Phosphatase Total Protein Albumin Globulin Albumin/Globulin Ratio TSH Urine Color Yellow Urine Appearance Clear Urine pH 7.0 Ur Specific [place] 1.014 Urine Protein Negative Urine Glucose (UA) Negative Urine Ketones 3+ H Urine Blood Negative Urine Nitrite Negative Urine Bilirubin Negative Urine Urobilinogen Negative Ur Leukocyte Esterase Negative Urine Test Negative Salicylates Urine Opiates Screen Ur Methadone, Qual Acetaminophen Urine Barbiturates Ur Phencyclidine (PCP) U Amphetamin/Meth Scrn Urine MDEA MDMA (Ecstasy) Screen MDMA Urine MDMA U Benzodiazepines Scrn [place] Ur Cocaine Metabolite U Marijuana (THC) Screen Ethyl Alcohol mg/dL SARS-CoV-2 (PCR) SARS-CoV-2, RNA, NAAT NEGATIVE 05/27/22 05/27/22 05/27/22 18:26 18:26 18:32 WBC 10.61 RBC 4.82 Hgb 14.6 Hct 40.4 MCV 83.8 MCH 30.3 MCHC 36.1 H RDW Std Deviation 39.6 RDW Coeff of Toni 12.9 Plt Count 726 H MPV 8.4 L Immature Gran % (Auto) 0.3 Neut % (Auto) 48.6 Lymph % (Auto) 36.0 [place] % (Auto) 12.3 Eos % (Auto) 1.8 Baso % (Auto) 1.0 Neut # (Auto) 5.16 Lymph # (Auto) 3.82 H [place] # (Auto) 1.30 H Eos # (Auto) 0.19 Baso # (Auto) 0.11 Immature Gran # (Auto) 0.03 H PT INR Sodium Potassium Chloride Carbon Dioxide Anion Gap BUN Creatinine Est Cr Clr Drug Dosing Est GFR ( Amer) Est GFR (Non-Af Amer) BUN/Creatinine Ratio Glucose Calcium Total Bilirubin AST ALT Alkaline Phosphatase Total Protein Albumin Globulin Albumin/Globulin Ratio TSH Urine Color Urine Appearance Urine pH Ur Specific [place] Urine Protein Urine Glucose (UA) Urine Ketones Urine Blood Urine Nitrite Urine Bilirubin Urine Urobilinogen Ur Leukocyte Esterase Urine Test Salicylates Urine Opiates Screen Neg Ur Methadone, Qual Neg Acetaminophen Urine Barbiturates Neg Ur Phencyclidine (PCP) Neg U Amphetamin/Meth Scrn Neg Urine MDEA negative MDMA (Ecstasy) Screen Pos H MDMA negative Urine MDMA negative U Benzodiazepines Scrn Neg [place] Ur Cocaine Metabolite Neg U Marijuana (THC) Screen Neg Ethyl Alcohol mg/dL SARS-CoV-2 (PCR) SARS-CoV-2, RNA, NAAT 05/27/22 05/27/22 05/27/22 18:32 18:32 18:32 WBC RBC Hgb Hct MCV MCH MCHC RDW Std Deviation RDW Coeff of Toni Plt Count MPV Immature Gran % (Auto) Neut % (Auto) Lymph % (Auto) [place] % (Auto) Eos % (Auto) Baso % (Auto) Neut # (Auto) Lymph # (Auto) [place] # (Auto) Eos # (Auto) Baso # (Auto) Immature Gran # (Auto) PT INR Sodium 135 L Potassium 4.2 Chloride 103 Carbon Dioxide 24 Anion Gap 8 BUN 11 Creatinine 0.71 Est Cr Clr Drug Dosing 121.5 Est GFR ( Amer) 139.1 Est GFR (Non-Af Amer) 120.1 BUN/Creatinine Ratio 15.5 Glucose 84 Calcium 9.2 Total Bilirubin 0.4 AST 19 ALT 19 Alkaline Phosphatase 119 H Total Protein 7.5 Albumin 4.4 Globulin 3.1 Albumin/Globulin Ratio 1.4 TSH 2.475 Urine Color Urine Appearance Urine pH Ur Specific [place] Urine Protein Urine Glucose (UA) Urine Ketones Urine Blood Urine Nitrite Urine Bilirubin Urine Urobilinogen Ur Leukocyte Esterase Urine Test Salicylates < 3.0 L Urine Opiates Screen Ur Methadone, Qual Acetaminophen < 3 L Urine Barbiturates Ur Phencyclidine (PCP) U Amphetamin/Meth Scrn Urine MDEA MDMA (Ecstasy) Screen MDMA Urine MDMA U Benzodiazepines Scrn [place] Ur Cocaine Metabolite U Marijuana (THC) Screen Ethyl Alcohol mg/dL SARS-CoV-2 (PCR) SARS-CoV-2, RNA, NAAT 05/27/22 05/28/22 05/31/22 18:32 11:54 12:08 WBC RBC Hgb Hct MCV MCH MCHC RDW Std Deviation RDW Coeff of Toni Plt Count MPV Immature Gran % (Auto) Neut % (Auto) Lymph % (Auto) [place] % (Auto) Eos % (Auto) Baso % (Auto) Neut # (Auto) Lymph # (Auto) [place] # (Auto) Eos # (Auto) Baso # (Auto) Immature Gran # (Auto) PT 30.3 H 22.6 H INR 3.0 H 2.2 H Sodium Potassium Chloride Carbon Dioxide Anion Gap BUN Creatinine Est Cr Clr Drug Dosing Est GFR ( Amer) Est GFR (Non-Af Amer) BUN/Creatinine Ratio Glucose Calcium Total Bilirubin AST ALT Alkaline Phosphatase Total Protein Albumin Globulin Albumin/Globulin Ratio TSH Urine Color Urine Appearance Urine pH Ur Specific [place] Urine Protein Urine Glucose (UA) Urine Ketones Urine Blood Urine Nitrite Urine Bilirubin Urine Urobilinogen Ur Leukocyte Esterase Urine Test Salicylates Urine Opiates Screen Ur Methadone, Qual Acetaminophen Urine Barbiturates Ur Phencyclidine (PCP) U Amphetamin/Meth Scrn Urine MDEA MDMA (Ecstasy) Screen MDMA Urine MDMA U Benzodiazepines Scrn [place] Ur Cocaine Metabolite U Marijuana (THC) Screen Ethyl Alcohol mg/dL < 10.0 SARS-CoV-2 (PCR) SARS-CoV-2, RNA, NAAT 06/01/22 06/02/22 06/11/22 07:36 10:31 21:51 WBC RBC Hgb Hct MCV MCH MCHC RDW Std Deviation RDW Coeff of Toni Plt Count MPV Immature Gran % (Auto) Neut % (Auto) Lymph % (Auto) [place] % (Auto) Eos % (Auto) Baso % (Auto) Neut # (Auto) Lymph # (Auto) [place] # (Auto) Eos # (Auto) Baso # (Auto) Immature Gran # (Auto) PT 19.8 H 13.9 H INR 1.9 H 1.3 H Sodium Potassium Chloride Carbon Dioxide Anion Gap BUN Creatinine Est Cr Clr Drug Dosing Est GFR ( Amer) Est GFR (Non-Af Amer) BUN/Creatinine Ratio Glucose Calcium Total Bilirubin AST ALT Alkaline Phosphatase Total Protein Albumin Globulin Albumin/Globulin Ratio TSH Urine Color Urine Appearance Urine pH Ur Specific [place] Urine Protein Urine Glucose (UA) Urine Ketones Urine Blood Urine Nitrite Urine Bilirubin Urine Urobilinogen Ur Leukocyte Esterase Urine Test Salicylates Urine Opiates Screen Ur Methadone, Qual Acetaminophen Urine Barbiturates Ur Phencyclidine (PCP) U Amphetamin/Meth Scrn Urine MDEA MDMA (Ecstasy) Screen MDMA Urine MDMA U Benzodiazepines Scrn [place] 0.2 L Ur Cocaine Metabolite U Marijuana (THC) Screen Ethyl Alcohol mg/dL SARS-CoV-2 (PCR) SARS-CoV-2, RNA, NAAT 06/13/22 06/17/22 21:21 07:55 WBC RBC Hgb Hct MCV MCH MCHC RDW Std Deviation RDW Coeff of Toni Plt Count MPV Immature Gran % (Auto) Neut % (Auto) Lymph % (Auto) [place] % (Auto) Eos % (Auto) Baso % (Auto) Neut # (Auto) Lymph # (Auto) [place] # (Auto) Eos # (Auto) Baso # (Auto) Immature Gran # (Auto) PT INR Sodium Potassium Chloride Carbon Dioxide Anion Gap BUN Creatinine Est Cr Clr Drug Dosing Est GFR ( Amer) Est GFR (Non-Af Amer) BUN/Creatinine Ratio Glucose Calcium Total Bilirubin AST ALT Alkaline Phosphatase Total Protein Albumin Globulin Albumin/Globulin Ratio TSH Urine Color Urine Appearance Urine pH Ur Specific [place] Urine Protein Urine Glucose (UA) Urine Ketones Urine Blood Urine Nitrite Urine Bilirubin Urine Urobilinogen Ur Leukocyte Esterase Urine Test Salicylates Urine Opiates Screen Ur Methadone, Qual Acetaminophen Urine Barbiturates Ur Phencyclidine (PCP) U Amphetamin/Meth Scrn Urine MDEA MDMA (Ecstasy) Screen MDMA Urine MDMA U Benzodiazepines Scrn [place] 0.6 Ur Cocaine Metabolite U Marijuana (THC) Screen Ethyl Alcohol mg/dL SARS-CoV-2 (PCR) NEGATIVE SARS-CoV-2, RNA, NAAT Hospital Course (1) Depression with suicidal ideation: (2) Borderline personality disorder: (3) Eating disorder, unspecified: (4) Acquired asplenia: (5) PTSD (post-traumatic stress disorder): Plan 06/17/22: lithium level low therapeutic range 0.6, continue current meds, 306 conversion to outpatient on 06/18/22 when [facility] reopens. 06/16/22: continue current medication and tx plan. 06/15/22: Continue current medications and tx plan. Li level scheduled for 06/17/22 before AM dose for 5 day level since dose adjustment. 06/14/22: Continue current medication and tx plan. 06/13/22: Continue current medication and tx plan. 06/12/22: Continue with current medications and tx plan. 06/11/22: Increase [place] to 300mg qAM & 600mg qhs 06/10/22: Continue current medications and tx plan. Consider further titration of lithium tomorrow. 06/09/22: Continue with current medications and tx plan. 06/08/22: d/c safe tray, continue current meds and tx plan. 06/07/22: hospitalist consult appreciated. Routine monitoring for Eliquis. Risks/benefits/alternatives reviewed lithium for mood stabilization. Discussion included but was not limited to risks of toxicity in overdose and need for ongoing blood monitoring (levels, kidney function, and thyroid). The patient was made aware to avoid regular use of NSAIDs as can increase levels and that lithium may need to be held during GI or other illnesses that result in dehydration. Will start [place] 300 mg Bid and titrate. 06/06/22: 304 commitment granted. EKG and CXR reviewed. Routine hospitalist consult for medical clearance. 06/05/22: compliant with Eliquis, [facility] declined, [facility] cannot accept out of [facility] referrals. Treatment team discussion around [facility] referral. Will need CXR, EKG for clearance and 304 commitment so paperwork completed. Patient is voicing agreement with this plan. 06/04/22: d/c 1-on-1, INR less than 2 so change to Eliquis 5 mg BID to improve compliance. [facility] is an acute care facility, will explore referral to [facility]. 06/03/22: patient prefers to d/c Zoloft and monitor for discontinuation syndrome rather than tapering, agreeable to Zyprexa standing order at . Prn Ativan in place of Vistaril which is ineffective. Consider switch from Coumadin to Lovenox as patient cannot afford Eliquis. 06/02/22: d/c 1-on-1, patient's room being moved to [facility]. Consider longer term hospital referral. Keppra has been discontinued, has Zyprexa prn (previously helpful) and Zoloft held for now in case activating. 06/01/22: Continue current medication and tx plan. If she continues to refuse coumadin consider medication over objection. Will place band sawing machine operator consult given history of unspecified eating disorder which seems to impact her mood significantly. 05/31/22: 303 commitment granted. Decrease Keppra to 250mg BID and then discontinue. Consider taper of gabapentin but fo now helping with anxiety. 05/30/22: Continue to encourage po intake and medications. Pursuing 303 commitment and likely medication over objection if she continues to refuse warfarin. Per discussion with [facility] hospitalist consult provider alternative formulations available for treating the thrombus would be Lovenox 70mg q12h or Eliquis 5mg BID. Prior to admission she was being prescribed warfarin 7.5mg MWF and 5mg SSTTh. 05/29/22: Continue to encourage adherence with medications and po intake. Continue efforts for labwork to check INR. External med rec also notable for venlafaxine 150mg BID. Given maximum dose of sertraline and her ongoing refusal for medications will avoid restarting this given serotonin syndrome risk with concurrent sertraline and now through most of the withdrawal symptoms period/ refusing all medications. 05/28/22: The patient was admitted to the [facility] on q15 min checks (behavioral with suicide precautions) for safety. The patient will participate in group, recreational, and milieu therapies and will be offered additional individual and family sessions as clinically appropriate. -Continue sertraline 200mg qd, trazodone 150mg qhs, prazosin 1mg qhs, gabapentin 600mg BID -Taper Keppra as concern this is adding to irritability, will reduce to 500mg BID with plan for taper to discontinuation -Continue to monitor and encourage po intake -No available records from the [facility] as discharge paperwork has not yet been completed from her stay Mental Health & Subst Abuse Tx Psychiatrist Name of Psychiatrist: [facility] Psych[facility]rist's Date of Appointment with Psychiatrist: 07/05/22 Time of Appointment with Psychiatrist: 1 PM Psychiatric Appointment Comment: A link will be sent to you via text and email. Therapist Name of Therapist: Jazzmine Galvan Therapist's Date of Therapist Appointment: 07/03/22 Time of Therapist Appointment: 3 PM Therapy Appointment Comment: [address], [address], [place] [address] Investigations Consultant Name of Investigations Consultant: Andreea Evans Phone Number for Investigations Consultant: [phone] Case Management Appointment Comment: Your director case management will follow-up with you directly to schedule. Post Discharge Appointments Primary Care Physician Name Of Family Doctor: Bubba Chaparro [facility] Date of Appointment with PCP: 06/20/22 Time of Appointment with PCP: 1:45 PM Provider Appointment Comment: [address] [place], [place] [address], [place] [address] Smoking Cessation Counseling Tobacco Cessation Medication Prescribed at Discharge: Not Applicable/Non-Smoker Other #1: Name of Aftercare Appointment: [facility] Phone Number of Aftercare Appointment: Aftercare Appointment Comment: [facility] will follow-up with you directly to set-up psychiatric rehab services. #2: Name of Aftercare Appointment: [facility] Phone Number of Aftercare Appointment: Aftercare Appointment Comment: [facility] will follow-up with you directly with you to schedule intake. #3: Name of Aftercare Appointment: [facility] Phone Number of Aftercare Appointment: [phone] Date of Aftercare Appointment: 06/19/22 Time of Aftercare Appointment: 2:00 PM Aftercare Appointment Comment: Insurance case management will call you to follow-up on your care. Contact Information Discharge Discharge [address]: [address] [place] [id number] Discharge Plan Discharge Items Patient Disposition: Home - Self-Care Reason For Visit: MAJOR DEPRESSIVE DISORDER Discharge Diagnosis: same Activity: Resume your previous activity Non-emergency contact: Primary Care Provider, Psychiatrist, Therapist and Car Worker Helper Call non-emergency contact if: you have any medication questions and your symptoms worsen Follow-up/Referrals: Kinsey Chaparro PA-C [Primary Care Provider] - Diet: Regular Addtl Attending Provider Instructions: SPECIAL CARE INSTRUCTIONS: 1. Follow through with your scheduled aftercare appointments. If unable to keep an appointment, please call to reschedule. 2. Take your medication only as prescribed. Medication should not be changed or stopped without the approval of your doctor. In the event of worsening symptoms or concerns about side effects, contact your doctor immediately. 3. Utilize new healthy coping skills, anger management skills, and stress management skills learned during your hospitalization. Journal feelings and process them with a support person. Identify stressors or situations that may result in relapse, deterioration or inappropriate behaviors and develop a plan to deal with those issues. 4. If your coping skills are ineffective and you are in crisis, contact your outpatient providers for direction. If unable to reach your providers, please call the [facility] CRISIS LINE AT , go to the [facility] walk-in center at [address] [place] [address], [address], [place], or go to the closest Emergency Room. 5. Avoid alcohol and un-prescribed drugs. 6. You have been provided with the Mental Health Advance Directives Pamphlet for your review. 7. Your condition is stable for discharge to outpatient level of care, but recovery is an ongoing process. Ifthoughts to harm yourself or others return, follow the safety plan developed during your stay. Planning for a safe return home includes securing weapons. Our treatment team recommends weaponsbe removed from the home until your outpatient provider reassesses your progress. In rare cases where the items themselvescannot be removed, guns and ammunitionshould be secured separatelyand keys stored by a reliable personoutside of the home. If you were admitted on an involuntary commitment, the police or other legal authorities may be involved in this process. AFTERCARE APPOINTMENTS: * Please call your insurance company prior to your scheduled appointment to confirm your aftercare providers are covered. Take your insurance information to your appointments. WHO TO CALL AND WHEN: Medical Emergencies: For questions or emergencies related to your hospital stay, please contact the Inpatient Behavioral Health Unit at [phone]. A tin recovery worker is on-call 18/03 for the Behavioral Health Unit for emergencies At any time you feel your situation is an emergency, you may also call 911 immediately. Pending Studies at Discharge: No Stand-Alone Forms: [facility], Smoking Cessation Medications and DC Order Prescriptions: New Eliquis 5 mg Tablet 5 mg PO BID Qty: 60 0RF lithium carbonate 300 mg Tablet Extended Release 300 mg PO QD@08 Qty: 90 0RF Rx Instructions: and 2 tabs PO qpm olanzapine 5 mg Tablet 5 mg PO BID Qty: 60 0RF lorazepam 0.5 mg Tablet 0.5 mg PO Q6 PRN (Reason: Anxiety) Qty: 10 0RF Continued famotidine 20 mg tablet 20 mg PO BID PRN (Reason: Acid Reflux) dicyclomine 10 mg capsule 10 mg PO QID PRN (Reason: ABD PAIN) trazodone 150 mg Tablet 150 mg HS propranolol 20 mg Tablet 20 mg PO BID gabapentin 600 mg Tablet 600 mg PO TID Qty: 90 0RF prazosin 1 mg Capsule 1 mg PO HS 30 Days Qty: 30 0RF Discontinued warfarin 2.5 mg Tablet See Rx Instructions .ROUTE .COMPLEX Rx Instructions: 2.5 mg orally on Saturday and Saturday warfarin 5 mg Tablet See Rx Instructions .ROUTE .COMPLEX Rx Instructions: 5 mg orally Sat, Sun, Tues and Thurs levetiracetam [Keppra] 1,000 mg Tablet 1,000 mg PO HS MDD 2000 levetiracetam 500 mg Tablet 500 mg PO BID sertraline 100 mg Tablet 200 mg PO DAILY venlafaxine 150 mg Tablet Extended Release 24hr 300 mg PO DAILY Discharge Orders: Discharge Order (Routine); Ordered 06/18/22 Ordered By: Deepthi Mayo Admission Data Admit Date/Time: 05/27/22 22:55 Attending Provider: Deepthi Mayo Admit Provider: Alma Rosa Mendez Primary Care Provider: Kinsey Chaparro Other Providers: Zee Ball ; Giselle Ghotra I. ; Alan Berg ; Wellington Black ; Mary Baca ; Sowmya Carlton ; Matilde Suarez ; Anton Hummel ; Toi Dorado ; Jorge Ricks ; Jennifer Tillman ; Hima Espinal ; Adriana Deshpande ; Neeru Cheema ; Hector Woodson ; Liana Hill ; Henrietta Boss ; Tam Colbert ; Mone Jason I. ; Charles Merrill ; Sesar Wilder ; Andi Ferguson ; Luis Carlos Guevara ; Toni Abdalla ; Bry Armstrong ; Ashwin Schulte ; Blue Olivarez ; Kimberly Gee Other Interventions: Discharge Summary Assessment (RN) Last Done: 06/18/22 09:12 PSY Interdisciplinary Discharge Planning Last Done: 06/18/22 10:32 Coding Level of Care Code 79119 D/C day mgmt > 30 min Diagnoses Depression with suicidal ideation F32.A; R45.851 Borderline personality disorder F60.3 Eating disorder, unspecified F50.9 Acquired asplenia Z90.81 PTSD (post-traumatic stress disorder) F43.10
== END 2022-06-18 11:35 | disposition home or self-care (01) | DRG 885 ==
LOC: ED 18:08 → SUATTDRO 22:55 → 3S 22:55

== ENCOUNTER 2023-04-08 17:32 | Inpatient (IN) ==
--- NOTE | 2023-04-08 18:16 | Emergency Department Note ---
Impression & Plan Suicidal ideation, Bipolar disorder, Auditory hallucinations ED Provider Note NAME: MAKENZIE HILLIARD AGE: 22 SEX: F ARRIVES VIA: Walk-In INFORMANT: Patient ED PROVIDER(S): Matthew Mcnamara MD CHIEF COMPLAINT: Suicidal ideation, depression, bipolar disorder. PLAN: Disposition: Inpatient psychiatric admission, 3 S. MEDICAL DECISION MAKING: The patient is a 22-year-old woman with a past medical history of bipolar disorder on lithium who presents to the emergency department via walk-in for evaluation of worsening symptoms of depression and suicidal ideation where she reports ongoing command hallucinations telling him to hurt herself. Patient was seen by crisis today and it was recommended she continue outpatient follow-up with her psychiatrist. The patient reports her is concerned about her worsening symptoms over the past couple of days and feels her medications "need adjustment". They contacted her psychiatrist at [facility] and they did not feel that it was time yet to make any changes as the patient does describe she was started on Invega 2 weeks ago and they have been downtrending down titrating her lithium dose. However due to 's concern the patient was in agreement to come to the hospital for evaluation and she is willing for voluntary inpatient psychiatric treatment. She has any recent fevers, chills, cough, congestion, GI/ symptoms. On my evaluation the patient is no acute distress, afebrile stable vital signs. She is melancholy appearing. She endorses SI with plan to cut herself, she endorses command auditory hallucinations telling her to hurt herself. WBC 11.9K nonspecific. H/H within normal limits. Platelets 724K, nonspecific and similar to prior. Chemistry without metabolic acidosis. Electrolytes LFTs unremarkable. TSH within normal limits. hCG negative. UA without convincing evidence of infection. Drug screen was unremarkable. [place] 0.4, subtherapeutic. COVID-19 RNA, FAISAL test was negative patient was subsequently medically cleared. Referral made to 3 S. and the patient was accepted for voluntary inpatient psychiatric treatment. 201 signed. Triage Nursing notes reviewed and agree them. Prior/outside medical records reviewed Vital Signs: reviewed Differential diagnosis: Mood disorder, infection, hypoglycemia, electrolyte abnormalities, cardiac sources, intracerebral event, toxicologic, trauma, neurologic, as well as other pathologies. ER treatment provided: See below. Laboratory studies: See below HPI: The patient is a 22-year-old woman with a past medical history of bipolar disorder on lithium who presents to the emergency department via walk-in for evaluation of worsening symptoms of depression and suicidal ideation where she reports ongoing command hallucinations telling him to hurt herself. Patient was seen by crisis today and it was recommended she continue outpatient follow-up with her psychiatrist. The patient reports her is concerned about her worsening symptoms over the past couple of days and feels her medications "need adjustment". They contacted her psychiatrist at [facility] and they did not feel that it was time yet to make any changes as the patient does describe she was started on Invega 2 weeks ago and they have been downtrending down titrating her lithium dose. However due to 's concern the patient was in agreement to come to the hospital for evaluation and she is willing for voluntary inpatient psychiatric treatment. She has any recent fevers, chills, cough, congestion, GI/ symptoms. ROS: See above HPI for pertinent positives & negatives. A total of 10 systems reviewed and were otherwise negative. VITALS:See Below PHYSICAL EXAMINATION: GENERAL: Awake, alert, melancholy-appearing, in no distress HENT: Normocephalic, atraumatic. Oropharynx unremarkable. EYES: Normal conjunctiva. Sclera non-icteric. NECK: Supple. No nuchal rigidity. FROM. No JVD. RESPIRATORY: Clear to auscultation. CARDIAC: Regular rate, normal rhythm. Extremities warm and well perfused. Pulses equal. ABDOMEN: Soft, non-distended. No tenderness to palpation. No rebound or guarding. No masses. RECTAL: Deferred. MUSCULOSKELETAL: Chest examination reveals no tenderness. The back is symmetrical on inspection without obvious abnormality. There is no CVA tenderness to palpation. No joint edema. LOWER EXTREMITIES: Calves are equal size bilaterally and non-tender. No edema. No discoloration. NEURO: Normal sensorium. No sensory or motor deficits noted. SKIN: No rash or jaundice noted. PSYCH: Endorses depression and SI with plan to cut herself, she endorses command auditory hallucinations telling her to hurt herself. Endorses insomnia x 2 days. Matthew Mcnamara MD Past Med/Surg History Medical History Asplenia Depression with suicidal ideation Depression with suicidal ideation Eating disorder, unspecified Intermittent asthma Involuntary commitment Major depression Major depressive disorder with psychotic features MDD (major depressive disorder), recurrent, severe, with psychosis Brock brock disease Portal vein thrombosis PTSD (post-traumatic stress disorder) Spherocytosis Suicidal ideation Superior mesenteric vein thrombosis Thrombocytosis Surgical History History of splenectomy Family History Denies family history of Coronary heart disease Social History Smoking Status: Never smoker Hx Alcohol Use: No Hx Substance Use: No Preferred Language: Tajik Communication Ability: Effective Communications Intern Required: No Beliefs That Will Affect Care: None marital status: Current Living Situation: Significant Other How many Children do You have: 0 Feels Safe at Home: Yes Gender Identity: Female Assistive Devices: Glasses Allergies Allergies Allergy/AdvReac Type Severity Reaction Status Date / Time vancomycin Allergy Intermediate Red/Itchy Verified 01/23/23 22:25 skin Home Meds Home Medications Medication Instructions Recorded Confirmed apixaban 5 mg tablet (Eliquis) 5 mg PO AMHS 07/27/22 04/08/23 propranolol 40 mg tablet 40 mg PO BID 07/27/22 04/08/23 famotidine 20 mg tablet 20 mg PO BID 10/13/22 04/08/23 lasmiditan 50 mg tablet (Reyvow) 50 mg PO DAILY PRN Migraine 10/13/22 04/08/23 Headache lithium carbonate 300 mg 300 mg PO BID 10/13/22 04/08/23 tablet,extended release galcanezumab-gnlm 120 mg/mL 120 mg subcut MONTHLY 01/23/23 04/08/23 subcutaneous pen injector (Emgality Pen) omeprazole 40 mg capsule,delayed 40 mg PO QAM 01/23/23 04/08/23 release bupropion HCl 150 mg 24 hr tablet, 150 mg PO 04/08/23 extended release clonidine HCl 0.1 mg tablet mg 04/08/23 doxepin 25 mg capsule mg 04/08/23 levothyroxine 50 mcg tablet mcg 04/08/23 Results & Data (ED) Vital Signs Vital Signs - 24 hr 04/08/23 17:38 Temperature 36.5 C Temperature Source Temporal Artery Scan Pulse Rate 71 Respiratory Rate 16 Respiratory Effort / Characteristics Non-Labored Spontaneous Respiratory Depth Normal Blood Pressure 103/73 Blood Pressure Mean 83 Pulse Oximetry 99 Oxygen Delivery Method Room Air Sepsis Recent Fever Within 48 Hours No Sepsis New/Unexplained Change in Mental Status No Sepsis Action Taken by Nursing No Action Required Laboratory Data Attestation: I reviewed the patient's lab results. 04/08/23 18:08 04/08/23 18:08 Lab Results 04/08/23 04/08/23 04/08/23 Range/Units 17:47 17:47 17:55 WBC (4.8-10.8) K/ul RBC (4.20-5.40) M/uL Hgb (12.0-16.0) g/dl Hct (37.0-47.0) % MCV (80.0-100.0) fL MCH (25.0-34.0) pg MCHC (32.0-36.0) g/dL RDW Std Deviation (36.4-46.3) fL RDW Coeff of Toni (11.5-14.5) % Plt Count (130-400) K/uL MPV (9.4-12.4) fL Immature Gran % (Auto) % Neut % (Auto) % Lymph % (Auto) % [place] % (Auto) % Eos % (Auto) % Baso % (Auto) % Neut # (Auto) (1.40-6.50) K/uL Lymph # (Auto) (1.2-3.4) K/uL [place] # (Auto) (0.11-0.59) K/uL Eos # (Auto) (0-0.50) K/uL Baso # (Auto) (0-0.2) K/uL Immature Gran # (Auto) (0.01-0.20) K/uL Sodium (136-145) mmol/L Potassium (3.5-5.1) mmol/L Chloride (98-107) mmol/L Carbon Dioxide (21-32) mmol/L Anion Gap (3-11) BUN (6-23) mg/dl Creatinine (0.6-1.2) mg/dl Est Cr Clr Drug Dosing ml/min Est GFR ( Amer) ml/min Est GFR (Non-Af Amer) ml/min BUN/Creatinine Ratio (10-20) Glucose (70-99(Fasting)) mg/dl Calcium (8.6-10.3) mg/dl Total Bilirubin (0.2-1.0) mg/dl AST (13-39) U/L ALT (7-52) U/L Alkaline Phosphatase (34-104) U/L Total Protein (6.0-8.3) gm/dl Albumin (3.4-5.0) gm/dl Globulin (2.5-4.0) gm/dl Albumin/Globulin Ratio (0.9-2) TSH (0.300-4.500) uIu/ml HCG, Qual (Negative) Urine Color Yellow Urine Appearance Clear (Clear) Urine pH 7.5 (4.5-7.5) Ur Specific [place] 1.012 (1.000-1.030) Urine Protein Negative (Negative) Urine Glucose (UA) Negative (Negative) Urine Ketones Negative (Negative) Urine Blood 2+ H (Negative) Urine Nitrite Negative (Negative) Urine Bilirubin Negative (Negative) Urine Urobilinogen Negative (Negative) Ur Leukocyte Esterase Negative (Negative) Urine WBC (Auto) 1-5 (0-5) /hpf Urine RBC (Auto) 0-4 (0-4) /hpf U Hyaline Cast (Auto) 1-5 (0-5) /lpf U Epithel Cells (Auto) >30 H (0-5) /lpf Urine Bacteria (Auto) Negative (Negative) Salicylates (3.0-30) mg/dl Urine Opiates Screen Neg (Neg) Ur Methadone, Qual Neg (Neg) Acetaminophen (10-30) ug/ml Urine Barbiturates Neg (Neg) Ur Phencyclidine (PCP) Neg (Neg) U Amphetamin/Meth Scrn Neg (Neg) MDMA (Ecstasy) Screen Neg (Neg) U Benzodiazepines Scrn Neg (Neg) [place] (0.6-1.2) mmol/L Ur Cocaine Metabolite Neg (Neg) U Marijuana (THC) Screen Neg (Neg) Ethyl Alcohol mg/dL (<10.0) mg/dl SARS-CoV-2, RNA, NAAT NEGATIVE (NEGATIVE) 04/08/23 04/08/23 04/08/23 Range/Units 18:08 18:08 18:08 WBC 11.95 H (4.8-10.8) K/ul RBC 4.26 (4.20-5.40) M/uL Hgb 13.5 (12.0-16.0) g/dl Hct 38.8 (37.0-47.0) % MCV 91.1 (80.0-100.0) fL MCH 31.7 (25.0-34.0) pg MCHC 34.8 (32.0-36.0) g/dL RDW Std Deviation 43.4 (36.4-46.3) fL RDW Coeff of Toni 13.0 (11.5-14.5) % Plt Count 724 H (130-400) K/uL MPV 9.1 L (9.4-12.4) fL Immature Gran % (Auto) 0.3 % Neut % (Auto) 43.7 % Lymph % (Auto) 40.5 % [place] % (Auto) 11.2 % Eos % (Auto) 3.5 % Baso % (Auto) 0.8 % Neut # (Auto) 5.23 (1.40-6.50) K/uL Lymph # (Auto) 4.84 H (1.2-3.4) K/uL [place] # (Auto) 1.34 H (0.11-0.59) K/uL Eos # (Auto) 0.42 (0-0.50) K/uL Baso # (Auto) 0.09 (0-0.2) K/uL Immature Gran # (Auto) 0.03 (0.01-0.20) K/uL Sodium 137 (136-145) mmol/L Potassium 3.9 (3.5-5.1) mmol/L Chloride 108 H (98-107) mmol/L Carbon Dioxide 22 (21-32) mmol/L Anion Gap 7 (3-11) BUN 9 (6-23) mg/dl Creatinine 0.81 (0.6-1.2) mg/dl Est Cr Clr Drug Dosing 116.6 ml/min Est GFR ( Amer) 117.8 ml/min Est GFR (Non-Af Amer) 101.7 ml/min BUN/Creatinine Ratio 11.1 (10-20) Glucose 85 (70-99(Fasting)) mg/dl Calcium 9.1 (8.6-10.3) mg/dl Total Bilirubin 0.4 (0.2-1.0) mg/dl AST 11 L (13-39) U/L ALT 14 (7-52) U/L Alkaline Phosphatase 100 (34-104) U/L Total Protein 7.0 (6.0-8.3) gm/dl Albumin 4.3 (3.4-5.0) gm/dl Globulin 2.7 (2.5-4.0) gm/dl Albumin/Globulin Ratio 1.6 (0.9-2) TSH 2.978 (0.300-4.500) uIu/ml HCG, Qual (Negative) Urine Color Urine Appearance (Clear) Urine pH (4.5-7.5) Ur Specific Marion (1.000-1.030) Urine Protein (Negative) Urine Glucose (UA) (Negative) Urine Ketones (Negative) Urine Blood (Negative) Urine Nitrite (Negative) Urine Bilirubin (Negative) Urine Urobilinogen (Negative) Ur Leukocyte Esterase (Negative) Urine WBC (Auto) (0-5) /hpf Urine RBC (Auto) (0-4) /hpf U Hyaline Cast (Auto) (0-5) /lpf U Epithel Cells (Auto) (0-5) /lpf Urine Bacteria (Auto) (Negative) Salicylates (3.0-30) mg/dl Urine Opiates Screen (Neg) Ur Methadone, Qual (Neg) Acetaminophen (10-30) ug/ml Urine Barbiturates (Neg) Ur Phencyclidine (PCP) (Neg) U Amphetamin/Meth Scrn (Neg) MDMA (Ecstasy) Screen (Neg) U Benzodiazepines Scrn (Neg) [place] (0.6-1.2) mmol/L Ur Cocaine Metabolite (Neg) U Marijuana (THC) Screen (Neg) Ethyl Alcohol mg/dL (<10.0) mg/dl SARS-CoV-2, RNA, NAAT (NEGATIVE) 04/08/23 04/08/23 04/08/23 Range/Units 18:08 18:08 18:08 WBC (4.8-10.8) K/ul RBC (4.20-5.40) M/uL Hgb (12.0-16.0) g/dl Hct (37.0-47.0) % MCV (80.0-100.0) fL MCH (25.0-34.0) pg MCHC (32.0-36.0) g/dL RDW Std Deviation (36.4-46.3) fL RDW Coeff of Toni (11.5-14.5) % Plt Count (130-400) K/uL MPV (9.4-12.4) fL Immature Gran % (Auto) % Neut % (Auto) % Lymph % (Auto) % [place] % (Auto) % Eos % (Auto) % Baso % (Auto) % Neut # (Auto) (1.40-6.50) K/uL Lymph # (Auto) (1.2-3.4) K/uL [place] # (Auto) (0.11-0.59) K/uL Eos # (Auto) (0-0.50) K/uL Baso # (Auto) (0-0.2) K/uL Immature Gran # (Auto) (0.01-0.20) K/uL Sodium (136-145) mmol/L Potassium (3.5-5.1) mmol/L Chloride (98-107) mmol/L Carbon Dioxide (21-32) mmol/L Anion Gap (3-11) BUN (6-23) mg/dl Creatinine (0.6-1.2) mg/dl Est Cr Clr Drug Dosing ml/min Est GFR ( Amer) ml/min Est GFR (Non-Af Amer) ml/min BUN/Creatinine Ratio (10-20) Glucose (70-99(Fasting)) mg/dl Calcium (8.6-10.3) mg/dl Total Bilirubin (0.2-1.0) mg/dl AST (13-39) U/L ALT (7-52) U/L Alkaline Phosphatase (34-104) U/L Total Protein (6.0-8.3) gm/dl Albumin (3.4-5.0) gm/dl Globulin (2.5-4.0) gm/dl Albumin/Globulin Ratio (0.9-2) TSH (0.300-4.500) uIu/ml HCG, Qual Negative (Negative) Urine Color Urine Appearance (Clear) Urine pH (4.5-7.5) Ur Specific [place] (1.000-1.030) Urine Protein (Negative) Urine Glucose (UA) (Negative) Urine Ketones (Negative) Urine Blood (Negative) Urine Nitrite (Negative) Urine Bilirubin (Negative) Urine Urobilinogen (Negative) Ur Leukocyte Esterase (Negative) Urine WBC (Auto) (0-5) /hpf Urine RBC (Auto) (0-4) /hpf U Hyaline Cast (Auto) (0-5) /lpf U Epithel Cells (Auto) (0-5) /lpf Urine Bacteria (Auto) (Negative) Salicylates < 3.0 L (3.0-30) mg/dl Urine Opiates Screen (Neg) Ur Methadone, Qual (Neg) Acetaminophen < 3 L (10-30) ug/ml Urine Barbiturates (Neg) Ur Phencyclidine (PCP) (Neg) U Amphetamin/Meth Scrn (Neg) MDMA (Ecstasy) Screen (Neg) U Benzodiazepines Scrn (Neg) [place] 0.4 L (0.6-1.2) mmol/L Ur Cocaine Metabolite (Neg) U Marijuana (THC) Screen (Neg) Ethyl Alcohol mg/dL < 10.0 (<10.0) mg/dl SARS-CoV-2, RNA, NAAT (NEGATIVE) Administered Medications Apixaban (Apixaban 5 Mg Tablet) 5 mg PO AMHS RENU Stop: 05/08/23 20:59 Last Admin: 04/08/23 22:00 Dose: 5 mg Documented By: STANISLAW Doxepin HCl (Doxepin Hcl 25 Mg Capsule) 25 mg PO HS RENU Stop: 05/08/23 21:59 Last Admin: 04/08/23 21:40 Dose: 25 mg Documented By: CLD Famotidine (Famotidine 20 Mg Tab) 20 mg PO BID RENU Stop: 05/08/23 20:59 Last Admin: 04/08/23 21:35 Dose: 20 mg Documented By: STANISLAW [place] Carbonate ([place] Carbonate Slow Rel 300 Mg Tab) 300 mg PO BID RENU Stop: 05/08/23 20:59 Last Admin: 04/08/23 21:36 Dose: 300 mg Documented By: STANISLAW Propranolol HCl (Propranolol Hcl 20 Mg Tab) 40 mg PO BID RENU Stop: 05/08/23 20:59 Last Admin: 04/08/23 21:37 Dose: 40 mg Documented By: CLD Discharge Plan Visit Data Chief Complaint: Mental Health Evaluation Stated Complaint: [facility] ED Provider: Matthew Mcnamara Discharge Problem: Suicidal ideation, Bipolar disorder, Auditory hallucinations Patient Disposition: Admitted As Inpatient Discharge Instructions Interventions: ED Discharge Assessment Last Done: 04/08/23 21:05
[2023-04-08 18:31] LABS: Basophils # (auto) 0.09 K/uL (0-0.2); Basophils % (auto) 0.8 %; Eosinophils # (auto) 0.42 K/uL (0-0.50); Eosinophils % (auto) 3.5 %; Hematocrit (blood only) 38.8 % (37.0-47.0); Hemoglobin 13.5 g/dl (12.0-16.0); Immature Granulocytes # (auto) 0.03 K/uL (0.01-0.20); Immature Granulocytes % (auto) 0.3 %; Lymphocytes # (auto) 4.84 K/uL (1.2-3.4); Lymphocytes % (auto) 40.5 %; Mean Corpuscular Hemoglobin 31.7 pg (25.0-34.0); Mean Corpuscular Hgb Conc 34.8 g/dL (32.0-36.0); Mean Corpuscular Volume 91.1 fL (80.0-100.0); Mean Platelet Volume 9.1 fL (9.4-12.4); Monocytes # (auto) 1.34 K/uL (0.11-0.59); Monocytes % (auto) 11.2 %; Neutrophils # (auto) 5.23 K/uL (1.40-6.50); Neutrophils % (auto) 43.7 %; Platelet Count 724 K/uL (130-400); RDW Standard Deviation 43.4 fL (36.4-46.3); Red Blood Count 4.26 M/uL (4.20-5.40); White Blood Count 11.95 K/ul (4.8-10.8)
[2023-04-08 18:33] LABS: Appearance Urine Clear (Clear); Bacteria Urine Automated Negative (Negative); Bilirubin Urine Negative (Negative); Blood Urine 2+ (Negative); Color Urine Yellow; Epithelial Cell Urine Auto >30 /lpf (0-5); Glucose Urine UA Negative (Negative); Ketones Urine Negative (Negative); Leukocyte Esterase Urine Negative (Negative); Nitrite Urine Negative (Negative); Protein Urine Negative (Negative); RBC Urine Automated 0-4 /hpf (0-4); Specific Gravity Urine 1.012 (1.000-1.030); Urobilinogen Urine Negative (Negative); pH Urine 7.5 (4.5-7.5)
[2023-04-08 18:41] LABS: Albumin Level 4.3 gm/dl (3.4-5.0); Bilirubin,Total 0.4 mg/dl (0.2-1.0); Calcium 9.1 mg/dl (8.6-10.3); Potassium 3.9 mmol/L (3.5-5.1)
[2023-04-08 18:47] LABS: Albumin Globulin Ratio 1.6 (0.9-2); BUN Creatinine Ratio 11.1 (10-20); Creatinine Clr Calc Pharmacy 116.6 ml/min; Est GFR (African American) 117.8 ml/min; Est GFR (Non-African American) 101.7 ml/min; Globulin 2.7 gm/dl (2.5-4.0)
[2023-04-08 18:48] LABS: Pregnancy Test, Serum Negative (Negative)
[2023-04-08 18:49] LABS: Lithium 0.4 mmol/L (0.6-1.2)
[2023-04-08 18:54] LABS: Acetaminophen < 3 ug/ml (10-30); Salicylate < 3.0 mg/dl (3.0-30)
[2023-04-08 19:01] LABS: Amphetamines+Metham, Urine Neg (Neg); Barbiturates, Urine Neg (Neg); Benzodiazepine, Urine Neg (Neg); Cocaine, Urine Neg (Neg); MDMA (Ecstacy), Urine Neg (Neg); Methadone, Urine Neg (Neg); Opiate, Urine Neg (Neg); Phencyclidine, Urine Neg (Neg)
[2023-04-08] MEDS ORDERED: MAGNESIUM HYDROXIDE SUSP 30 ML UDC PO PRN (20:29)
[2023-04-08] MEDS ORDERED: hydrOXYzine HCl 25 MG TAB PO PRN ×2 (20:29)
[2023-04-08] MEDS ORDERED: ACETAMINOPHEN 325 MG TAB PO PRN (20:29)
[2023-04-08] MEDS ORDERED: BISMUTH SUBSALICYLATE LIQD 236 ML PO PRN (20:29)
[2023-04-08] MEDS ORDERED: ALUMINUM/MAGNESIUM SUSP 30 ML UDC PO PRN (20:29)
[2023-04-08] MEDS ORDERED: SODIUM CHLORIDE 0.65% NA SOLN 45 ML (OCEAN) PRN (20:29)
[2023-04-08] MEDS: FAMOTIDINE 20 MG TAB PO SCH (21:35)
[2023-04-08] MEDS: LITHIUM CARBONATE SLOW REL 300 MG TAB PO SCH (21:36)
[2023-04-08] MEDS: PROPRANOLOL HCL 20 MG TAB PO SCH (21:37)
[2023-04-08] MEDS: DOXEPIN HCL 25 MG CAPSULE PO SCH (21:40)
[2023-04-08] MEDS: APIXABAN 5 MG TABLET PO SCH (22:00)
[2023-04-09] MEDS: APIXABAN 5 MG TABLET PO SCH ×2 (09:04→20:57)
[2023-04-09] MEDS: PANTOprazole 40 MG TAB PO SCH (09:04)
[2023-04-09] MEDS: LITHIUM CARBONATE SLOW REL 300 MG TAB PO SCH ×2 (09:04→20:58)
[2023-04-09] MEDS: FAMOTIDINE 20 MG TAB PO SCH ×2 (09:05→20:57)
[2023-04-09] MEDS: PROPRANOLOL HCL 20 MG TAB PO SCH ×2 (10:20→20:58)
[2023-04-09] MEDS: LEVOTHYROXINE SODIUM 50 MCG TABLET PO SCH (10:24)
--- NOTE | 2023-04-09 15:22 | History & Physical ---
Date of Service April 09, 2023 Impression / Recommendations Impression 22 yo female well known to our service with repeated hospitalizations over past 2 years, no clear stressor at home, limited coping skills. (1) Bipolar disorder: Active/Remission status: currently active Current bipolar episode type: depressed Psychotic features: with psychotic features (2) Borderline personality disorder: (3) Acquired asplenia: Plan The patient was admitted to the [facility] ([facility] mental [facility] unit) on q15 min checks (behavioral with suicide precautions) for safety. The patient will participate in group, recreational, and milieu therapies and will be offered additional individual and family sessions as clinically appropriate. Need to confirm dose/last injection of Invega. Continue doxepin and lithium for now. Zyprexa prn. need planning meeting with CM. Inventory Assets Strengths: managing medical issues, supportive partner Needs: improve coping skills, coordination with [facility] services. Suicide Risk Level Suicide Risk Level: High-Moderate (q15 min suicide checks) Risk Factors Assessment : Yes Do You Have Access To A Gun?: No Health Problems: Yes Mental Health Diagnoses: Yes Substance Use Disorders: No Previous Attempt: Yes Previous Psychiatric Hospitalization: Yes Protective Factors Assessment Employed: No Stable Relationships: Yes Supportive Family: Yes Psychiatric History Identifying Data MAKENZIE HILLIARD is a 22-year-old F who continues to live in [place], has a history of multiple inpatient psychiatric admission, and was admitted on 04/08/23 20:30 on a 201 voluntary commitment for SI with auditory command hallucinations. Chief Complaint "I was at [place] and now I'm on this injectable but I'd still a mess". History of Present Illness Patient was last seen on our service in May 2022. Since that time she has been hospitalized at 07/17 [facility], 08/16 [place], 10/18 [place], 11/15 [facility], 01/15 [facility], 02/15 [place]. Hospitalizations are always for SI, typically with plan to OD on medication and reports command auditory rhoades to act on these thoughts. Presents with same, can only add that her Western was decreased to 300 mg BID from 600 mg BID as she felt "foggy" and now on GILLETTE but I do not see rx in surecripts and am pending records. She has difficulties describing her safety plan or identifying specific coping skills. Denies issues at home. Now gets disability. Past Psychiatric History Previous Psych History: borderline personality disorder, PTSD, MDD Current Psychiatric Diagnosis: MDD with SI Outpatient Services: med management ([facility]), [facility] counseling, [facility]. Previous Psych Admissions: in addition to those in HPI, [facility] 2019, [facility] (2020, 05/17), [facility] 06/15, 04/16 [facility]. Do You Have Access To A Gun?: No History of Previous Suicide Attempt: Yes Past Medication Trials: SSRIs: luvox, sertraline, fluoxetine, escitalopram SNRI: venlafaxine Trazodone mirtazapine, Vistaril Antipsychotics: Latuda, abilify, risperidone, haldol, zyprexa Gabapentin Keppra Clonazepam--patient unable to name others, certainly has responded to Zyprexa on the unit, current meds, need records Allergies Allergy/AdvReac Type Severity Reaction Status Date / Time vancomycin Allergy Intermediate Red/Itchy Verified 01/23/23 22:25 skin Home Medications Medication Instructions Recorded Confirmed Type apixaban 5 mg tablet (Eliquis) 5 mg PO AMHS 07/27/22 04/08/23 History propranolol 40 mg tablet 40 mg PO BID 07/27/22 04/08/23 History famotidine 20 mg tablet 20 mg PO BID 10/13/22 04/08/23 History lasmiditan 50 mg tablet (Reyvow) 50 mg PO DAILY PRN Migraine 10/13/22 04/08/23 History Headache lithium carbonate 300 mg 300 mg PO BID 10/13/22 04/08/23 History tablet,extended release galcanezumab-gnlm 120 mg/mL 120 mg subcut MONTHLY 01/23/23 04/08/23 History subcutaneous pen injector (Emgality Pen) omeprazole 40 mg capsule,delayed 40 mg PO QAM 01/23/23 04/08/23 History release bupropion HCl 150 mg 24 hr tablet, 150 mg PO 04/08/23 History extended release clonidine HCl 0.1 mg tablet mg 04/08/23 History doxepin 25 mg capsule mg 04/08/23 History levothyroxine 50 mcg tablet mcg 04/08/23 History Family History Family History of: Doesn't Know Alcohol History Hx of Alcohol Use Over the Past 12 Months: No AUDIT Total Score: 0 Smoking Use Have You Smoked or Used Tobacco Products in the Last 30 Days: No Smoking Status: Never smoker Substance History Hx of Prescription Med Misuse Over the Past 12 Months: No Hx of Over the Counter Med Misuse Over the Past 12 Months: No Hx of Inhalent Misuse Over the Past 12 Months: No Hx of Organic Substance Use Over the Past 12 Months: No Hx of Illegal Substances/Street Drug Use Over Past 12 Months: No Personal History Living Arrangements: Apartment Living Arrangements Comments: lives with and in-laws Highest Grade Completed: Some College Marital Status: Number Of Children: 0 Beliefs That Will Affect Care: None Hx Legal Problems: No Hx Traumatic Life Events: Yes Patient History Medical History Asplenia Depression with suicidal ideation Depression with suicidal ideation Eating disorder, unspecified Intermittent asthma Involuntary commitment Major depression Major depressive disorder with psychotic features MDD (major depressive disorder), recurrent, severe, with psychosis Brock brock disease Portal vein thrombosis PTSD (post-traumatic stress disorder) Spherocytosis Suicidal ideation Superior mesenteric vein thrombosis Thrombocytosis Surgical History History of splenectomy Family History Denies family history of Coronary heart disease Social History Smoking Status: Never smoker Hx Alcohol Use: No Hx Substance Use: No Preferred Language: Welsh Communication Ability: Effective 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 Beliefs That Will Affect Care: None marital status: Current Living Situation: Significant Other How many Children do You have: 0 Feels Safe at Home: Yes Gender Identity: Female Assistive Devices: Glasses Review of Systems Review of Systems: All systems reviewed & are unremarkable except as noted in HPI & below Physical Exam Psychiatric: Orientation: alert and oriented x 3 Apperance: appropriately dressed and appropriately groomed Eye Contact: + poor eye contact Motor Behavior: no abnormal motor movements Speech: normal rate/rhythm/volume of speech Affect: + depressed affect Mood: + depressed mood Thought Process: + concrete thought process Thought Content: reality based without delusions Suicidal Thoughts: denies suicidal intent; + reports suicidal thoughts and + reports suicidal plan (OD, no access to meds on unit) Homicidal Thoughts: denies homicidal thoughts Hallucinations: + auditory hallucinations (but does not appear to be responding to internal stimuli); no visual hallucinations Cognition: language grossly intact; + attention not intact Estimated Intelligence: consistent with education level Insight: + limited insight Judgment: + limited judgement Vital Signs (Past 24 Hours): Last Vital Signs Temp 36.9 C 04/09/23 06:41 Pulse 71 04/09/23 06:41 Resp 16 04/09/23 06:41 BP 90/64 L 04/09/23 06:41 Pulse Ox 99 04/08/23 17:38 O2 Del Method Room Air 04/08/23 17:38 Exam Statement: A physical exam was performed in the ED by Dr. Mcnamara for the purposes of medical clearance. I accept that physical as correct and adequate for the purposes of the inpatient physical exam. Results & Data ([facility]) Laboratory Results Laboratory Results - last 24 hr 04/08/23 04/08/23 04/08/23 17:47 17:47 17:55 WBC RBC Hgb Hct MCV MCH MCHC RDW Std Deviation RDW Coeff of Toni Plt Count MPV Immature Gran % (Auto) Neut % (Auto) Lymph % (Auto) Yates % (Auto) Eos % (Auto) Baso % (Auto) Neut # (Auto) Lymph # (Auto) Yates # (Auto) Eos # (Auto) Baso # (Auto) Immature Gran # (Auto) Sodium Potassium Chloride Carbon Dioxide Anion Gap BUN Creatinine Est Cr Clr Drug Dosing Est GFR ( Amer) Est GFR (Non-Af Amer) BUN/Creatinine Ratio Glucose Calcium Total Bilirubin AST ALT Alkaline Phosphatase Total Protein Albumin Globulin Albumin/Globulin Ratio TSH HCG, Qual Urine Color Yellow Urine Appearance Clear Urine pH 7.5 Ur Specific [place] 1.012 Urine Protein Negative Urine Glucose (UA) Negative Urine Ketones Negative Urine Blood 2+ H Urine Nitrite Negative Urine Bilirubin Negative Urine Urobilinogen Negative Ur Leukocyte Esterase Negative Urine WBC (Auto) 1-5 Urine RBC (Auto) 0-4 U Hyaline Cast (Auto) 1-5 U Epithel Cells (Auto) >30 H Urine Bacteria (Auto) Negative Salicylates Urine Opiates Screen Neg Ur Methadone, Qual Neg Acetaminophen Urine Barbiturates Neg Ur Phencyclidine (PCP) Neg U Amphetamin/Meth Scrn Neg MDMA (Ecstasy) Screen Neg U Benzodiazepines Scrn Neg Western Ur Cocaine Metabolite Neg U Marijuana (THC) Screen Neg Ethyl Alcohol mg/dL SARS-CoV-2, RNA, NAAT NEGATIVE 04/08/23 04/08/23 04/08/23 18:08 18:08 18:08 WBC 11.95 H RBC 4.26 Hgb 13.5 Hct 38.8 MCV 91.1 MCH 31.7 MCHC 34.8 RDW Std Deviation 43.4 RDW Coeff of Toni 13.0 Plt Count 724 H MPV 9.1 L Immature Gran % (Auto) 0.3 Neut % (Auto) 43.7 Lymph % (Auto) 40.5 Yates % (Auto) 11.2 Eos % (Auto) 3.5 Baso % (Auto) 0.8 Neut # (Auto) 5.23 Lymph # (Auto) 4.84 H Yates # (Auto) 1.34 H Eos # (Auto) 0.42 Baso # (Auto) 0.09 Immature Gran # (Auto) 0.03 Sodium 137 Potassium 3.9 Chloride 108 H Carbon Dioxide 22 Anion Gap 7 BUN 9 Creatinine 0.81 Est Cr Clr Drug Dosing 116.6 Est GFR ( Amer) 117.8 Est GFR (Non-Af Amer) 101.7 BUN/Creatinine Ratio 11.1 Glucose 85 Calcium 9.1 Total Bilirubin 0.4 AST 11 L ALT 14 Alkaline Phosphatase 100 Total Protein 7.0 Albumin 4.3 Globulin 2.7 Albumin/Globulin Ratio 1.6 TSH 2.978 HCG, Qual Urine Color Urine Appearance Urine pH Ur Specific [place] Urine Protein Urine Glucose (UA) Urine Ketones Urine Blood Urine Nitrite Urine Bilirubin Urine Urobilinogen Ur Leukocyte Esterase Urine WBC (Auto) Urine RBC (Auto) U Hyaline Cast (Auto) U Epithel Cells (Auto) Urine Bacteria (Auto) Salicylates Urine Opiates Screen Ur Methadone, Qual Acetaminophen Urine Barbiturates Ur Phencyclidine (PCP) U Amphetamin/Meth Scrn MDMA (Ecstasy) Screen U Benzodiazepines Scrn Western Ur Cocaine Metabolite U Marijuana (THC) Screen Ethyl Alcohol mg/dL SARS-CoV-2, RNA, NAAT 04/08/23 04/08/23 04/08/23 18:08 18:08 18:08 WBC RBC Hgb Hct MCV MCH MCHC RDW Std Deviation RDW Coeff of Toni Plt Count MPV Immature Gran % (Auto) Neut % (Auto) Lymph % (Auto) Yates % (Auto) Eos % (Auto) Baso % (Auto) Neut # (Auto) Lymph # (Auto) Yates # (Auto) Eos # (Auto) Baso # (Auto) Immature Gran # (Auto) Sodium Potassium Chloride Carbon Dioxide Anion Gap BUN Creatinine Est Cr Clr Drug Dosing Est GFR ( Amer) Est GFR (Non-Af Amer) BUN/Creatinine Ratio Glucose Calcium Total Bilirubin AST ALT Alkaline Phosphatase Total Protein Albumin Globulin Albumin/Globulin Ratio TSH HCG, Qual Negative Urine Color Urine Appearance Urine pH Ur Specific [place] Urine Protein Urine Glucose (UA) Urine Ketones Urine Blood Urine Nitrite Urine Bilirubin Urine Urobilinogen Ur Leukocyte Esterase Urine WBC (Auto) Urine RBC (Auto) U Hyaline Cast (Auto) U Epithel Cells (Auto) Urine Bacteria (Auto) Salicylates < 3.0 L Urine Opiates Screen Ur Methadone, Qual Acetaminophen < 3 L Urine Barbiturates Ur Phencyclidine (PCP) U Amphetamin/Meth Scrn MDMA (Ecstasy) Screen U Benzodiazepines Scrn Western 0.4 L Ur Cocaine Metabolite U Marijuana (THC) Screen Ethyl Alcohol mg/dL < 10.0 SARS-CoV-2, RNA, NAAT Current Inpatient Medications Current Inpatient Medications: Current Inpatient Medications Acetaminophen (Acetaminophen 325 Mg Tab) 650 mg PO Q4H PRN PRN Reason: Headache or Minor Fever Stop: 05/08/23 20:28 Al Hydrox/Mg Hydrox/Simethicone (Aluminum/Magnesium Susp 30 Ml Udc) 30 ml PO Q4H PRN PRN Reason: GI Upset Stop: 05/08/23 20:28 Apixaban (Apixaban 5 Mg Tablet) 5 mg PO AMHS RENU Stop: 05/08/23 20:59 Last Admin: 04/09/23 09:04 Dose: 5 mg Bismuth Subsalicylate (Bismuth Subsalicylate Liqd 236 Ml) 15 ml PO PRN PRN PRN Reason: Loose Stool Stop: 05/08/23 20:28 Doxepin HCl (Doxepin Hcl 25 Mg Capsule) 25 mg PO HS RENU Stop: 05/08/23 21:59 Last Admin: 04/08/23 21:40 Dose: 25 mg Famotidine (Famotidine 20 Mg Tab) 20 mg PO BID RENU Stop: 05/08/23 20:59 Last Admin: 04/09/23 09:05 Dose: 20 mg Hydroxyzine HCl (Hydroxyzine Hcl 25 Mg Tab) 50 mg PO HSZ PRN PRN Reason: Insomnia Stop: 05/08/23 20:28 Hydroxyzine HCl (Hydroxyzine Hcl 25 Mg Tab) 25 mg PO Q4H PRN PRN Reason: Anxiety Stop: 05/08/23 20:28 Levothyroxine Sodium (Levothyroxine Sodium 50 Mcg Tablet) 50 mcg PO DAILYBB RENU Stop: 05/09/23 10:59 Last Admin: 04/09/23 10:24 Dose: 50 mcg [place] Carbonate ([place] Carbonate Slow Rel 300 Mg Tab) 300 mg PO BID RENU Stop: 05/08/23 20:59 Last Admin: 04/09/23 09:04 Dose: 300 mg Magnesium Hydroxide (Magnesium Hydroxide Susp 30 Ml Udc) 30 ml PO DAILY PRN PRN Reason: Constipation Stop: 05/08/23 20:28 Miscellaneous (*Oral Contraceptive*Order Awaiting Action) 1 each N/A QS [facility] Stop: 05/09/23 15:59 Olanzapine (Olanzapine 5 Mg Tablet) 5 mg PO Q6 PRN PRN Reason: Anxiety/Agitation Stop: 05/09/23 00:00 Pantoprazole Sodium (Pantoprazole 40 Mg Tab) 40 mg PO QAM RENU Stop: 05/09/23 08:59 Last Admin: 04/09/23 09:04 Dose: 40 mg Propranolol HCl (Propranolol Hcl 20 Mg Tab) 40 mg PO BID RENU Stop: 05/08/23 20:59 Last Admin: 04/09/23 10:20 Dose: Not Given Sodium Chloride (Sodium Chloride 0.65% Na Soln 45 Ml ([place])) 1 - 2 sprays NA PRN PRN PRN Reason: Nasal Dryness/Congestion Stop: 05/08/23 20:28
[2023-04-09] MEDS: DOXEPIN HCL 25 MG CAPSULE PO SCH (20:58)
[2023-04-10] MEDS: LEVOTHYROXINE SODIUM 50 MCG TABLET PO SCH ×2 (09:07→10:41)
[2023-04-10] MEDS: APIXABAN 5 MG TABLET PO SCH ×3 (09:07→21:12)
[2023-04-10] MEDS: PROPRANOLOL HCL 20 MG TAB PO SCH ×3 (09:08→21:13)
[2023-04-10] MEDS: FAMOTIDINE 20 MG TAB PO SCH ×3 (09:08→21:12)
[2023-04-10] MEDS: PANTOprazole 40 MG TAB PO SCH ×2 (09:08→10:38)
[2023-04-10] MEDS: LITHIUM CARBONATE SLOW REL 300 MG TAB PO SCH ×3 (09:08→21:13)
--- NOTE | 2023-04-10 11:21 | Psychiatric Progress Note ---
Date of Service April 10, 2023 Impression / Recommendations Impression 22 yo female well known to our service with repeated hospitalizations over past 2 years, no clear stressor at home, limited coping skills. MNPR due to acquired asplenia/Brock brock 04/10/23: noncompliant with treatment thus far (typical pattern first 1-2 days) (1) Bipolar disorder: (2) Borderline personality disorder: (3) Acquired asplenia: Plan 04/10/23: continue current medications and tx plan. 04/09/23: The patient was admitted to the [facility] ([facility] mental health unit) on q15 min checks (behavioral with suicide precautions) for safety. The patient will participate in group, recreational, and milieu therapies and will be offered additional individual and family sessions as clinically appropriate. Need to confirm dose/last injection of Invega. Continue doxepin and lithium for now. Zyprexa prn. need planning meeting with CM. Inventory Assets Strengths: managing medical issues, supportive partner Needs: improve coping skills, coordination with [facility] services. Suicide Risk Level Suicide Risk Level: High-Moderate (q15 min suicide checks) Risk Factors Assessment : Yes Do You Have Access To A Gun?: No Health Problems: Yes Mental Health Diagnoses: Yes Substance Use Disorders: No Previous Attempt: Yes Previous Psychiatric Hospitalization: Yes Protective Factors Assessment Employed: No Stable Relationships: Yes Supportive Family: Yes Interval History Identifying Information MAKENZIE HILLIARD is a 22-year-old F who continues to live in [place], has a history of multiple inpatient psychiatric admission, and was admitted on 04/08/23 20:30 on a 201 voluntary commitment for SI with auditory command hallucinations. Chief Complaint "meghna" Review of Systems Sleep Information Total Hours of Sleep: 6.5 Meal Information Percent Meal Consumed - Breakfast: 50 Percent Meal Consumed - Lunch: 80 Percent Meal Consumed - Dinner: 0 Subjective Subjective Patient was seen & assessed and interval progress reviewed with treatment team. Patient is spending alot of time in bed but did go to community meeting last pm where rated mood as 1 and suicidal. Refused hs meds and meds this am. Patient refusing to make eye contact at this time. Awaiting records. Physical Exam Psychiatric Orientation: alert and oriented x 3 Apperance: appropriately dressed and appropriately groomed Eye Contact: + poor eye contact Motor Behavior: no abnormal motor movements Speech: normal rate/rhythm/volume of speech Affect: + depressed affect Mood: + depressed mood Thought Process: + concrete thought process Thought Content: reality based without delusions Suicidal Thoughts: denies suicidal intent; + reports suicidal thoughts and + reports suicidal plan (OD, no access to meds on unit) Homicidal Thoughts: denies homicidal thoughts Hallucinations: + auditory hallucinations (but does not appear to be responding to internal stimuli); no visual hallucinations Cognition: language grossly intact; + attention not intact Estimated Intelligence: consistent with education level Insight: + limited insight Judgment: + limited judgement Vital Signs (Past 24 Hours) Last Vital Signs Temp 36.7 C 04/10/23 06:41 Pulse 86 04/10/23 06:42 Resp 16 04/10/23 06:41 BP 101/61 04/10/23 06:42 Pulse Ox 99 04/08/23 17:38 O2 Del Method Room Air 04/08/23 17:38 Results & Data ([facility]) Current Inpatient Medications Current Inpatient Medications: Current Inpatient Medications Acetaminophen (Acetaminophen 325 Mg Tab) 650 mg PO Q4H PRN PRN Reason: Headache or Minor Fever Stop: 05/08/23 20:28 Al Hydrox/Mg Hydrox/Simethicone (Aluminum/Magnesium Susp 30 Ml Udc) 30 ml PO Q4H PRN PRN Reason: GI Upset Stop: 05/08/23 20:28 Apixaban (Apixaban 5 Mg Tablet) 5 mg PO AMHS RENU Stop: 05/08/23 20:59 Last Admin: 04/10/23 10:38 Dose: 5 mg Bismuth Subsalicylate (Bismuth Subsalicylate Liqd 236 Ml) 15 ml PO PRN PRN PRN Reason: Loose Stool Stop: 05/08/23 20:28 Doxepin HCl (Doxepin Hcl 25 Mg Capsule) 25 mg PO HS RENU Stop: 05/08/23 21:59 Last Admin: 04/09/23 20:58 Dose: Not Given Famotidine (Famotidine 20 Mg Tab) 20 mg PO BID RENU Stop: 05/08/23 20:59 Last Admin: 04/10/23 10:39 Dose: 20 mg Hydroxyzine HCl (Hydroxyzine Hcl 25 Mg Tab) 50 mg PO HSZ PRN PRN Reason: Insomnia Stop: 05/08/23 20:28 Hydroxyzine HCl (Hydroxyzine Hcl 25 Mg Tab) 25 mg PO Q4H PRN PRN Reason: Anxiety Stop: 05/08/23 20:28 Levothyroxine Sodium (Levothyroxine Sodium 50 Mcg Tablet) 50 mcg PO DAILYBB RENU Stop: 05/09/23 10:59 Last Admin: 04/10/23 10:41 Dose: 50 mcg [place] Carbonate ([place] Carbonate Slow Rel 300 Mg Tab) 300 mg PO BID RENU Stop: 05/08/23 20:59 Last Admin: 04/10/23 10:40 Dose: 300 mg Magnesium Hydroxide (Magnesium Hydroxide Susp 30 Ml Udc) 30 ml PO DAILY PRN PRN Reason: Constipation Stop: 05/08/23 20:28 Miscellaneous (*Oral Contraceptive*Order Awaiting Action) 1 each N/A QS [facility] Stop: 05/09/23 15:59 Last Admin: 04/10/23 09:09 Dose: Not Given Olanzapine (Olanzapine 5 Mg Tablet) 5 mg PO Q6 PRN PRN Reason: Anxiety/Agitation Stop: 05/09/23 00:00 Pantoprazole Sodium (Pantoprazole 40 Mg Tab) 40 mg PO QAM [facility] Stop: 05/09/23 08:59 Last Admin: 04/10/23 10:38 Dose: 40 mg Propranolol HCl (Propranolol Hcl 20 Mg Tab) 40 mg PO BID RENU Stop: 05/08/23 20:59 Last Admin: 04/10/23 10:40 Dose: 40 mg Sodium Chloride (Sodium Chloride 0.65% Na Soln 45 Ml ([place])) 1 - 2 sprays NA PRN PRN PRN Reason: Nasal Dryness/Congestion Stop: 05/08/23 20:28 Mental Health & Subst Abuse Tx Therapist Name of Therapist: Jeremy Elkins Small Business Director Name of Small Business Director: Andreea Evans (1) Bipolar disorder Active/Remission status: currently active Current bipolar episode type: depressed Psychotic features: with psychotic features
[2023-04-10] MEDS: OLANZapine 5 MG TABLET PO PRN (14:10)
[2023-04-10] MEDS: DOXEPIN HCL 25 MG CAPSULE PO SCH (21:13)
[2023-04-11] MEDS: PANTOprazole 40 MG TAB PO SCH (08:50)
[2023-04-11] MEDS: APIXABAN 5 MG TABLET PO SCH ×2 (08:50→20:29)
[2023-04-11] MEDS: LITHIUM CARBONATE SLOW REL 300 MG TAB PO SCH ×2 (08:50→20:30)
[2023-04-11] MEDS: PROPRANOLOL HCL 20 MG TAB PO SCH ×2 (08:51→20:30)
[2023-04-11] MEDS: LEVOTHYROXINE SODIUM 50 MCG TABLET PO SCH (08:51)
[2023-04-11] MEDS: FAMOTIDINE 20 MG TAB PO SCH ×2 (08:51→20:30)
--- NOTE | 2023-04-11 09:58 | Psychiatric Progress Note ---
Date of Service April 11, 2023 Impression / Recommendations Impression 22 yo female well known to our service with repeated hospitalizations over past 2 years, no clear stressor at home, limited coping skills. MNPR due to acquired asplenia/Brock brock 04/11/23: brighter today but endorsing ongoing SI. (1) Bipolar disorder: (2) Borderline personality disorder: (3) Acquired asplenia: Plan 04/11/23: risks/benefits/alternatives reviewed re: Caplyta retrial after, timing depending on proximity to Invega (though in hospital and can be monitored for EPS, etc.). Rx sent to pharmacy to obtain auth as non-formulary. 04/10/23: continue current medications and tx plan. 04/09/23: The patient was admitted to the [facility] ([facility] mental health unit) on q15 min checks (behavioral with suicide precautions) for safety. The patient will participate in group, recreational, and milieu therapies and will be offered additional individual and family sessions as clinically appropriate. Need to confirm dose/last injection of Invega. Continue doxepin and lithium for now. Zyprexa prn. need planning meeting with CM. Inventory Assets Strengths: managing medical issues, supportive partner Needs: improve coping skills, coordination with [facility] services. Suicide Risk Level Suicide Risk Level: High-Moderate (q15 min suicide checks) Risk Factors Assessment : Yes Do You Have Access To A Gun?: No Health Problems: Yes Mental Health Diagnoses: Yes Substance Use Disorders: No Previous Attempt: Yes Previous Psychiatric Hospitalization: Yes Protective Factors Assessment Employed: No Stable Relationships: Yes Supportive Family: Yes Interval History Identifying Information MAKENZIE HILLIARD is a 22-year-old F who continues to live in [place], has a history of multiple inpatient psychiatric admission, and was admitted on 04/08/23 20:30 on a 201 voluntary commitment for SI with auditory command hallucinations. Chief Complaint "yeah, my hospitalizations go with my period." Review of Systems Sleep Information Total Hours of Sleep: 8.25 Meal Information Percent Meal Consumed - Breakfast: 30 Percent Meal Consumed - Lunch: 50 Percent Meal Consumed - Dinner: 100 Nutrition Comment: updated from paper meal log Subjective Subjective Patient was seen & assessed and interval progress reviewed with nursing and social work. Patient remains noncompliant with pm meds but awoke in a better mood and complied this am. States was started on norethindrone earlier this month for PMDD component. States did best on Caplyta prior to her last hospitalization at [place]. She states her family noted day to day functioning was significantly improved but she did have breakthrough and since rehospitalized was started on Invega sustenna 2 weeks ago (awaiting records to confirm date/timing). Physical Exam Psychiatric Orientation: alert and oriented x 3 Apperance: appropriately dressed and appropriately groomed Eye Contact: + fair eye contact Motor Behavior: no abnormal motor movements Speech: normal rate/rhythm/volume of speech Affect: euthymic affect Mood: + depressed mood Thought Process: + concrete thought process Thought Content: reality based without delusions Suicidal Thoughts: denies suicidal intent; + reports suicidal thoughts and + reports suicidal plan (OD, no access to meds on unit) Homicidal Thoughts: denies homicidal thoughts Hallucinations: no auditory hallucinations and no visual hallucinations Cognition: attention grossly intact and language grossly intact Estimated Intelligence: consistent with education level Insight: + limited insight Judgment: + limited judgement Vital Signs (Past 24 Hours) Last Vital Signs Temp 36.9 C 04/11/23 06:40 Pulse 92 H 04/11/23 06:40 Resp 16 04/11/23 06:40 BP 113/63 04/11/23 06:40 Pulse Ox 99 04/08/23 17:38 O2 Del Method Room Air 04/08/23 17:38 Results & Data ([facility]) Current Inpatient Medications Current Inpatient Medications: Current Inpatient Medications Acetaminophen (Acetaminophen 325 Mg Tab) 650 mg PO Q4H PRN PRN Reason: Headache or Minor Fever Stop: 05/08/23 20:28 Al Hydrox/Mg Hydrox/Simethicone (Aluminum/Magnesium Susp 30 Ml Udc) 30 ml PO Q4H PRN PRN Reason: GI Upset Stop: 05/08/23 20:28 Apixaban (Apixaban 5 Mg Tablet) 5 mg PO AMHS RENU Stop: 05/08/23 20:59 Last Admin: 04/11/23 08:50 Dose: 5 mg Bismuth Subsalicylate (Bismuth Subsalicylate Liqd 236 Ml) 15 ml PO PRN PRN PRN Reason: Loose Stool Stop: 05/08/23 20:28 Doxepin HCl (Doxepin Hcl 25 Mg Capsule) 25 mg PO HS RENU Stop: 05/08/23 21:59 Last Admin: 04/10/23 21:13 Dose: Not Given Famotidine (Famotidine 20 Mg Tab) 20 mg PO BID R[facility]U Stop: 05/08/23 20:59 Last Admin: 04/11/23 08:51 Dose: 20 mg Hydroxyzine HCl (Hydroxyzine Hcl 25 Mg Tab) 50 mg PO HSZ PRN PRN Reason: Insomnia Stop: 05/08/23 20:28 Hydroxyzine HCl (Hydroxyzine Hcl 25 Mg Tab) 25 mg PO Q4H PRN PRN Reason: Anxiety Stop: 05/08/23 20:28 Levothyroxine Sodium (Levothyroxine Sodium 50 Mcg Tablet) 50 mcg PO DAILYBB [facility] Stop: 05/09/23 10:59 Last Admin: 04/11/23 08:51 Dose: 50 mcg [place] Carbonate ([place] Carbonate Slow Rel 300 Mg Tab) 300 mg PO BID RENU Stop: 05/08/23 20:59 Last Admin: 04/11/23 08:50 Dose: 300 mg Magnesium Hydroxide (Magnesium Hydroxide Susp 30 Ml Udc) 30 ml PO DAILY PRN PRN Reason: Constipation Stop: 05/08/23 20:28 Miscellaneous (*Oral Contraceptive*Order Awaiting Action) 1 each N/A QS RENU Stop: 05/09/23 15:59 Last Admin: 04/11/23 09:20 Dose: Not Given Olanzapine (Olanzapine 5 Mg Tablet) 5 mg PO Q6 PRN PRN Reason: Anxiety/Agitation Stop: 05/09/23 00:00 Last Admin: 04/10/23 14:10 Dose: 5 mg Pantoprazole Sodium (Pantoprazole 40 Mg Tab) 40 mg PO QAM [facility] Stop: 05/09/23 08:59 Last Admin: 04/11/23 08:50 Dose: 40 mg Propranolol HCl (Propranolol Hcl 20 Mg Tab) 40 mg PO BID RENU Stop: 05/08/23 20:59 Last Admin: 04/11/23 08:51 Dose: 40 mg Sodium Chloride (Sodium Chloride 0.65% Na Soln 45 Ml ([place])) 1 - 2 sprays NA PRN PRN PRN Reason: Nasal Dryness/Congestion Stop: 05/08/23 20:28 Mental Health & Subst Abuse Tx Therapist Name of Therapist: Jeremy Elkins Evening Or Night Nurse Supervisor Name of Evening Or Night Nurse Supervisor: Andreea Evans (1) Bipolar disorder Active/Remission status: currently active Current bipolar episode type: depressed Psychotic features: with psychotic features
[2023-04-11] MEDS: OLANZapine 5 MG TABLET PO PRN (13:07)
[2023-04-11] MEDS: DOXEPIN HCL 25 MG CAPSULE PO SCH (20:30)
[2023-04-12] MEDS: LEVOTHYROXINE SODIUM 50 MCG TABLET PO SCH (08:33)
[2023-04-12] MEDS: APIXABAN 5 MG TABLET PO SCH ×2 (09:06→16:48)
[2023-04-12] MEDS: FAMOTIDINE 20 MG TAB PO SCH (09:07)
[2023-04-12] MEDS: LITHIUM CARBONATE SLOW REL 300 MG TAB PO SCH (09:07)
[2023-04-12] MEDS: PANTOprazole 40 MG TAB PO SCH (09:07)
[2023-04-12] MEDS: PROPRANOLOL HCL 20 MG TAB PO SCH ×2 (09:07→16:48)
--- NOTE | 2023-04-12 09:44 | Psychiatric Progress Note ---
Date of Service April 12, 2023 Impression / Recommendations Impression 22 yo female well known to our service with repeated hospitalizations over past 2 years, no clear stressor at home, limited coping skills. 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 04/11/23: risks/benefits/alternatives reviewed re: Caplyta retrial after, timing depending on proximity to Invega (though in hospital and can be monitored for EPS, etc.). Rx sent to pharmacy to obtain auth as non-formulary. 04/10/23: continue current medications and tx plan. 04/09/23: The patient was admitted to the [facility] ([facility] mental health unit) on q15 min checks (behavioral with suicide precautions) for safety. The patient will participate in group, recreational, and milieu therapies and will be offered additional individual and family sessions as clinically appropriate. Need to confirm dose/last injection of Invega. Continue doxepin and lithium for now. Zyprexa prn. need planning meeting with CM. Inventory Assets Strengths: managing medical issues, supportive partner Needs: improve coping skills, coordination with critical access hospital services. Suicide Risk Level Suicide Risk Level: Moderate (q15 min suicide checks) Risk Factors Assessment : Yes Do You Have Access To A Gun?: No Health Problems: Yes Mental Health Diagnoses: Yes Substance Use Disorders: No Previous Attempt: Yes Previous Psychiatric Hospitalization: Yes Protective Factors Assessment Employed: No Stable Relationships: Yes Supportive Family: Yes Interval History Identifying Information MAKENZIE HILLIARD is a 22-year-old F who continues to live in [place], has a history of multiple inpatient psychiatric admission, and was admitted on 04/08/23 20:30 on a 201 voluntary commitment for SI with auditory command hallucinations. Chief Complaint "I had a decent day." Review of Systems Sleep Information Total Hours of Sleep: 7 Meal Information Percent Meal Consumed - Breakfast: 30 Percent Meal Consumed - Lunch: 90 Percent Meal Consumed - Dinner: 90 Nutrition Comment: updated from paper meal log Subjective Subjective Patient was seen & assessed and interval progress reviewed with treatment team. Patient updated her safety plan with her outpatient CM yesterday and in meeting reconfirmed that meds are locked and administered by inlaws. Unclear why patient said they weren't. She will also appear bright and interactive and then when asked to rate her mood will say 1 and suicidal. Staff to work on redirecting to a feeling rather than a thought. She continues to refuse hs meds, she is concrete and doesn't feel they "work". Reviewed that doxepin will be d/c but recommend take Eliquis with evening meal here as I believe mainly refuses hs as control issue with evening shift. Physical Exam Psychiatric Orientation: alert and oriented x 3 Apperance: appropriately dressed and appropriately groomed Eye Contact: good eye contact Motor Behavior: no abnormal motor movements Speech: normal rate/rhythm/volume of speech Affect: euthymic affect Mood: + depressed mood (self report) Thought Process: + concrete thought process Thought Content: reality based without delusions Suicidal Thoughts: denies suicidal intent; + reports suicidal thoughts and + reports suicidal plan (OD, no access to meds on unit) Homicidal Thoughts: denies homicidal thoughts Hallucinations: no auditory hallucinations and no visual hallucinations Cognition: attention grossly intact and language grossly intact Estimated Intelligence: consistent with education level Insight: + limited insight Judgment: + limited judgement Vital Signs (Past 24 Hours) Last Vital Signs Temp 36.9 C 04/12/23 06:00 Pulse 103 H 04/12/23 08:56 Resp 18 04/12/23 06:00 BP 102/59 L 04/12/23 08:56 Pulse Ox 98 04/12/23 06:00 O2 Del Method Room Air 04/12/23 06:00 Results & Data ([facility] [[email or web address] Current Inpatient Medications Current Inpatient Medications: Current Inpatient Medications Acetaminophen (Acetaminophen 325 Mg Tab) 650 mg PO Q4H PRN PRN Reason: Headache or Minor Fever Stop: 05/08/23 20:28 Al Hydrox/Mg Hydrox/Simethicone (Aluminum/Magnesium Susp 30 Ml Udc) 30 ml PO Q4H PRN PRN Reason: GI Upset Stop: 05/08/23 20:28 Apixaban (Apixaban 5 Mg Tablet) 5 mg PO BID17 [facility] Stop: 05/12/23 08:59 Last Admin: 04/12/23 09:06 Dose: 5 mg Bismuth Subsalicylate (Bismuth Subsalicylate Liqd 236 Ml) 15 ml PO PRN PRN PRN Reason: Loose Stool Stop: 05/08/23 20:28 Famotidine (Famotidine 20 Mg Tab) 20 mg PO QAM [facility] Stop: 05/12/23 08:59 Last Admin: 04/12/23 09:07 Dose: 20 mg Hydroxyzine HCl (Hydroxyzine Hcl 25 Mg Tab) 50 mg PO HSZ PRN PRN Reason: Insomnia Stop: 05/08/23 20:28 Hydroxyzine HCl (Hydroxyzine Hcl 25 Mg Tab) 25 mg PO Q4H PRN PRN Reason: Anxiety Stop: 05/08/23 20:28 Levothyroxine Sodium (Levothyroxine Sodium 50 Mcg Tablet) 50 mcg PO DAILYBB [facility] Stop: 05/09/23 10:59 Last Admin: 04/12/23 08:33 Dose: 50 mcg [place] Carbonate ([place] Carbonate Slow Rel 300 Mg Tab) [facility] Stop: 05/12/23 08:59 Last Admin: 04/12/23 09:07 Dose: 300 mg Magnesium Hydroxide (Magnesium Hydroxide Susp 30 Ml Udc) 30 ml PO DAILY PRN PRN Reason: Constipation Stop: 05/08/23 20:28 Miscellaneous (*Oral Contraceptive*Order Awaiting Action) 1 each N/A QS [facility] Stop: 05/09/23 15:59 Last Admin: 04/12/23 08:40 Dose: Not Given Olanzapine (Olanzapine 5 Mg Tablet) 5 mg PO Q6 PRN PRN Reason: Anxiety/Agitation Stop: 05/09/23 00:00 Last Admin: 04/11/23 13:07 Dose: 5 mg Pantoprazole Sodium (Pantoprazole 40 Mg Tab) 40 mg PO QAM [facility] Stop: 05/09/23 08:59 Last Admin: 04/12/23 09:07 Dose: 40 mg Propranolol HCl (Propranolol Hcl 20 Mg Tab) 40 mg PO BID17 [facility] Stop: 05/12/23 08:59 Last Admin: 04/12/23 09:07 Dose: 40 mg Sodium Chloride (Sodium Chloride 0.65% Na Soln 45 Ml ([place])) 1 - 2 sprays NA PRN PRN PRN Reason: Nasal Dryness/Congestion Stop: 05/08/23 20:28 Mental Health & Subst Abuse Tx Psychiatrist Name of Psychiatrist: Temitope Trimble Psychiatrist's Date Of Appointment With Psychiatric Provider: 04/16/23 Time of Appointment with Psychiatrist: 8:30am Psychiatric Appointment Comment: [address] [place] [address] Therapist Name of Therapist: Jeremy Elkins Therapist's Date of Therapist Appointment: 04/17/1200 Time of Therapist Appointment: 12:00 PM Therapy Appointment Comment: This appointment is via telehealth. Flue Gas Analyst Name of Flue Gas Analyst: Andreea Evasn Phone Number for Flue Gas Analyst: [phone] Date of Appointment with Flue Gas Analyst: 04/16/23 Time of Appointment with Flue Gas Analyst: 12:15 PM Post Discharge Appointments Primary Care Physician Name Of Family Doctor/PCP: Bubba Chaparro PA-C Primary Care Time of Appointment with PCP: [facility] Addie Garcia, [place] [address] Provider Appointment Comment: Please follow-up with your PCP as needed. Highway Painter Name of Highway Painter: ABELARDO Crisis Peer Support Phone Number of Highway Painter: [phone] Highway Painter Appointment Comment: A crisis peer accounting support specialist will follow-up with you directly to schedule. Specialist Name of Specialist: Gynecology (1) Bipolar disorder Active/Remission status: currently active Current bipolar episode type: depressed Psychotic features: with psychotic features
[2023-04-12] MEDS: OLANZapine 5 MG TABLET PO PRN ×2 (14:27→21:15)
[2023-04-13] MEDS: PANTOprazole 40 MG TAB PO SCH (09:05)
[2023-04-13] MEDS: LEVOTHYROXINE SODIUM 50 MCG TABLET PO SCH (09:05)
[2023-04-13] MEDS: APIXABAN 5 MG TABLET PO SCH ×2 (09:06→17:41)
[2023-04-13] MEDS: LITHIUM CARBONATE SLOW REL 300 MG TAB PO SCH (09:06)
[2023-04-13] MEDS: FAMOTIDINE 20 MG TAB PO SCH (09:07)
[2023-04-13] MEDS: PROPRANOLOL HCL 20 MG TAB PO SCH ×2 (09:07→17:43)
--- NOTE | 2023-04-13 09:35 | Psychiatric Progress Note ---
Date of Service April 13, 2023 Impression / Recommendations Impression 22 yo woman well known to our service with repeated hospitalizations over past 2 years, no clear stressor at home, limited coping skills. Diagnostically most consistent with BPD given chronic intermittent SI, periods of AH without any other signs of psychosis/disorganization, hx self-harm and food restriction. MNPR due to acquired asplenia/Teresa brock 04/13/23: mood stable, denies SI, able to speak about [employer] books she is enjoying. Reviewed that no medication is likely to offer full symptom resolution and rather goal of focusing effort on DBT as repeated hospitalizations and medication trials have shown limited if any benefit to date. Fasting labwork in AM. Overall, I spent a total of 55 minutes including review of chart records, review of labwork, direct evaluation of the patient at bedside, counseling the patient, ordering labwork, discussion of the patient at treatment team rounds, review of DBT resources, and documentation in the electronic health record. (1) Bipolar disorder: (2) Borderline personality disorder: (3) Acquired asplenia: Plan 04/13/2023: Continue with [place] 300mg qAM and olanzapine prn. Fasting lipid panel and glucose in the AM. Discussed with her potential risks of Caplyta use concurrently with Invega GILLETTE on board, discussed consideration to await start of Caplyta until after Invega GILLETTE effects start to wear off at 4 week chon. She is agreeable to this. 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 04/11/23: risks/benefits/alternatives reviewed re: Caplyta retrial after, timing depending on proximity to Invega (though in hospital and can be monitored for EPS, etc.). Rx sent to pharmacy to obtain auth as non-formulary. 04/10/23: continue current medications and tx plan. 04/09/23: The patient was admitted to the [facility]) on q15 min checks (behavioral with suicide precautions) for safety. The patient will participate in group, recreational, and milieu therapies and will be offered additional individual and family sessions as clinically appropriate. Need to confirm dose/last injection of Invega. Continue doxepin and lithium for now. Zyprexa prn. need planning meeting with CM. Inventory Assets Strengths: managing medical issues, supportive partner Needs: improve coping skills, coordination with [facility]. Suicide Risk Level Suicide Risk Level: Moderate (q15 min suicide checks) Suicide Risk Level Comments: denies current SI and mood improving, chronic intermittent SI Risk Factors Assessment : Yes Do You Have Access To A Gun?: No Health Problems: Yes Mental Health Diagnoses: Yes Substance Use Disorders: No Previous Attempt: Yes Previous Psychiatric Hospitalization: Yes Protective Factors Assessment Employed: No Stable Relationships: Yes Supportive Family: Yes Interval History Identifying Information MAKENZIE HILLIARD is a 22-year-old F who continues to live in [place], has a history of multiple inpatient psychiatric admission, and was admitted on 04/08/23 20:30 on a 201 voluntary commitment for SI with auditory command hallucinations. Chief Complaint "I don't have them today". Review of Systems Sleep Information Total Hours of Sleep: 7 Meal Information Percent Meal Consumed - Breakfast: 100 Percent Meal Consumed - Lunch: 100 Percent Meal Consumed - Dinner: 75 Nutrition Comment: updated from paper meal log Subjective Subjective Patient was seen & assessed and interval progress reviewed with treatment team nursing and social work. Bright at times including laughing while on the phone last night, later endorsed AH yesterday and got olanzapine which she finds helpful. Denies SI today, notes that she has difficulty predicting when the thoughts will come and go as it tends to be "random". Reviewed data regarding BPD and lack of medication efficacy and focus on use of DBT, she was open to looking at some DBT resources for distress tolerance, distraction coping skills. Agrees to fasting labwork given recent Invega injection ~2 weeks ago and use of olanzapine. Physical Exam Psychiatric Orientation: alert and oriented x 3 Apperance: appropriately dressed and appropriately groomed Eye Contact: good eye contact Motor Behavior: no abnormal motor movements Speech: normal rate/rhythm/volume of speech Affect: euthymic affect Mood: + depressed mood (self report) Thought Process: + concrete thought process Thought Content: reality based without delusions Suicidal Thoughts: denies suicidal thoughts, denies suicidal plan and denies suicidal intent Homicidal Thoughts: denies homicidal thoughts Hallucinations: no auditory hallucinations (none today but reports intermittently) and no visual hallucinations Cognition: attention grossly intact and language grossly intact Estimated Intelligence: consistent with education level Insight: + limited insight Judgment: + limited judgement Vital Signs (Past 24 Hours) Last Vital Signs Temp 37.3 C 04/13/23 06:00 Pulse 100 H 04/13/23 06:36 Resp 18 04/13/23 06:00 BP 105/69 04/13/23 06:36 Pulse Ox 98 04/13/23 06:00 O2 Del Method Room Air 04/13/23 06:00 Results & Data ([facility]) Current Inpatient Medications Current Inpatient Medications: Current Inpatient Medications Acetaminophen (Acetaminophen 325 Mg Tab) 650 mg PO Q4H PRN PRN Reason: Headache or Minor Fever Stop: 05/08/23 20:28 Al Hydrox/Mg Hydrox/Simethicone (Aluminum/Magnesium Susp 30 Ml Udc) 30 ml PO Q4H PRN PRN Reason: GI Upset Stop: 05/08/23 20:28 Apixaban (Apixaban 5 Mg Tablet) 5 mg PO BID17 [facility] Stop: 05/12/23 08:59 Last Admin: 04/13/23 09:06 Dose: 5 mg Bismuth Subsalicylate (Bismuth Subsalicylate Liqd 236 Ml) 15 ml PO PRN PRN PRN Reason: Loose Stool Stop: 05/08/23 20:28 Famotidine (Famotidine 20 Mg Tab) 20 mg PO QAM [facility] Stop: 05/12/23 08:59 Last Admin: 04/13/23 09:07 Dose: 20 mg Hydroxyzine HCl (Hydroxyzine Hcl 25 Mg Tab) 50 mg PO HSZ PRN PRN Reason: Insomnia Stop: 05/08/23 20:28 Hydroxyzine HCl (Hydroxyzine Hcl 25 Mg Tab) 25 mg PO Q4H PRN PRN Reason: Anxiety Stop: 05/08/23 20:28 Levothyroxine Sodium (Levothyroxine Sodium 50 Mcg Tablet) 50 mcg PO DAILYBB [facility] Stop: 05/09/23 10:59 Last Admin: 04/13/23 09:05 Dose: 50 mcg [place] Carbonate ([place] Carbonate Slow Rel 300 Mg Tab) 300 mg PO QAM [facility] Stop: 05/12/23 08:59 Last Admin: 04/13/23 09:06 Dose: 300 mg Magnesium Hydroxide (Magnesium Hydroxide Susp 30 Ml Udc) 30 ml PO DAILY PRN PRN Reason: Constipation Stop: 05/08/23 20:28 Olanzapine (Olanzapine 5 Mg Tablet) 5 mg PO Q6 PRN PRN Reason: Anxiety/Agitation Stop: 05/09/23 00:00 Last Admin: 04/12/23 21:15 Dose: 5 mg Pantoprazole Sodium (Pantoprazole 40 Mg Tab) 40 mg PO QAM [facility] Stop: 05/09/23 08:59 Last Admin: 04/13/23 09:05 Dose: 40 mg Propranolol HCl (Propranolol Hcl 20 Mg Tab) 40 mg PO BID17 [facility] Stop: 05/12/23 08:59 Last Admin: 04/13/23 09:07 Dose: 40 mg Sodium Chloride (Sodium Chloride 0.65% Na Soln 45 Ml ([place])) 1 - 2 sprays NA PRN PRN PRN Reason: Nasal Dryness/Congestion Stop: 05/08/23 20:28 Mental Health & Subst Abuse Tx Psychiatrist Name of Psychiatrist: Temit[facility] Psychiatrist's Date Of Appointment With Psychiatric Provider: 04/16/23 Time of Appointment with Psychiatrist: 8:30am Psychiatric Appointment Comment: [address] [place] [address] Therapist Name of Therapist: Jeremy Elkins Therapist's Date of Therapist Appointment: 04/17/1200 Time of Therapist Appointment: 12:00 PM Therapy Appointment Comment: This appointment is via telehealth. Electric Motor Tester Assembler Name of Electric Motor Tester Assembler: Andreea Evans Phone Number for Electric Motor Tester Assembler: [phone] Date of Appointment with Electric Motor Tester Assembler: 04/16/23 Time of Appointment with Electric Motor Tester Assembler: 12:15 PM Post Discharge Appointments Primary Care Physician Name Of Family Doctor/PCP: Bubba Chaparro PA-C Primary Care Time of Appointment with PCP: [facility] [address] [address] Provider Appointment Comment: Please follow-up with your PCP as needed. City Library Director Name of City Library Director: ABELARDO Crisis Peer Support Phone Number of City Library Director: [phone] City Library Director Appointment Comment: A crisis peer technical support internship will follow-up with you directly to schedule. Specialist Name of Specialist: Gynecology (1) Bipolar disorder Active/Remission status: currently active Current bipolar episode type: depressed Psychotic features: with psychotic features
[2023-04-13] MEDS: OLANZapine 5 MG TABLET PO PRN (13:30)
[2023-04-14] MEDS: PANTOprazole 40 MG TAB PO SCH (08:34)
[2023-04-14] MEDS: LEVOTHYROXINE SODIUM 50 MCG TABLET PO SCH (08:34)
[2023-04-14] MEDS: FAMOTIDINE 20 MG TAB PO SCH (08:34)
[2023-04-14] MEDS: LITHIUM CARBONATE SLOW REL 300 MG TAB PO SCH (08:34)
[2023-04-14] MEDS: APIXABAN 5 MG TABLET PO SCH (08:34)
[2023-04-14] MEDS: PROPRANOLOL HCL 20 MG TAB PO SCH (08:35)
--- NOTE | 2023-04-14 09:11 | Psychiatric Progress Note ---
Date of Service April 14, 2023 Impression / Recommendations Impression 22 yo woman well known to our service with repeated hospitalizations over past 2 years, no clear stressor at home, limited coping skills. Diagnostically most consistent with BPD given chronic intermittent SI, periods of AH without any other signs of psychosis/disorganization, hx self-harm and food restriction. MNPR due to acquired asplenia/Brock brock 04/14/23: mood stable, denies SI, future-oriented. Fasting labwork reviewed, glucose normal, triglycerides elevated, cholesterol within normal limits. Overall, I spent a total of 55 minutes including review of chart records, review of labwork, direct evaluation of the patient at bedside, counseling the patient, ordering labwork, discussion of the patient at treatment team rounds, review of DBT resources, and documentation in the electronic health record. (1) Bipolar disorder: (2) Borderline personality disorder: (3) Acquired asplenia: Plan 04/13/2023: Continue with [place] 300mg qAM and olanzapine prn. Fasting lipid panel and glucose in the AM. Discussed with her potential risks of Caplyta use concurrently with Invega GILLETTE on board, discussed consideration to await start of Caplyta until after Invega GILLETTE effects start to wear off at 4 week chon. She is agreeable to this. 04/12/23: continue current meds and tx plan--does have voucher for 10.5 mg Caplyta waiting at [facility], family encouraged to brick picker for retrial here but may have transportation barrier to provide med through weekend. 04/11/23: risks/benefits/alternatives reviewed re: Caplyta retrial after, timing depending on proximity to Invega (though in hospital and can be monitored for EPS, etc.). Rx sent to pharmacy to obtain auth as non-formulary. 04/10/23: continue current medications and tx plan. 04/09/23: The patient was admitted to the [facility] ([facility] inpatient mental health unit) on q15 min checks (behavioral with suicide precautions) for safety. The patient will participate in group, recreational, and milieu therapies and will be offered additional individual and family sessions as clinically appropriate. Need to confirm dose/last injection of Invega. Continue doxepin and lithium for now. Zyprexa prn. need planning meeting with CM. Inventory Assets Strengths: managing medical issues, supportive partner Needs: improve coping skills, coordination with [facility]. Suicide Risk Level Suicide Risk Level: Moderate (q15 min suicide checks) Suicide Risk Level Comments: denies current SI and mood improving, chronic intermittent SI Risk Factors Assessment : Yes Do You Have Access To A Gun?: No Health Problems: Yes Mental Health Diagnoses: Yes Substance Use Disorders: No Previous Attempt: Yes Previous Psychiatric Hospitalization: Yes Protective Factors Assessment Employed: No Stable Relationships: Yes Supportive Family: Yes Interval History Identifying Information MAKENZIE HILLIARD is a 22-year-old F who continues to live in [place], has a history of multiple inpatient psychiatric admission, and was admitted on 04/08/23 20:30 on a 201 voluntary commitment for SI with auditory command hallucinations. Chief Complaint "[]". Review of Systems Sleep Information Total Hours of Sleep: 7 Meal Information Percent Meal Consumed - Breakfast: 95 Percent Meal Consumed - Lunch: 100 Percent Meal Consumed - Dinner: 90 Nutrition Comment: updated from paper meal log Subjective Subjective Patient was seen & assessed and interval progress reviewed with treatment team nursing and social work. Attending groups. Physical Exam Vital Signs (Past 24 Hours) Last Vital Signs Temp 36.7 C 04/14/23 06:28 Pulse 69 04/14/23 06:28 Resp 16 04/14/23 06:28 BP 118/74 04/14/23 06:28 Pulse Ox 98 04/13/23 06:00 O2 Del Method Room Air 04/13/23 06:00 Results & Data ([facility]) Laboratory Results Laboratory Results - last 24 hr 04/14/23 07:28 Fasting Glucose 96 Triglycerides 250 H Cholesterol 170 LDL Cholesterol, Calc 86 VLDL Cholesterol, Calc 50 H HDL Cholesterol 34 Cholesterol/HDL Ratio 5.0 Current Inpatient Medications Current Inpatient Medications: Current Inpatient Medications Acetaminophen (Acetaminophen 325 Mg Tab) 650 mg PO Q4H PRN PRN Reason: Headache or Minor Fever Stop: 05/08/23 20:28 Last Admin: 04/13/23 15:33 Dose: 650 mg Al Hydrox/Mg Hydrox/Simethicone (Aluminum/Magnesium Susp 30 Ml Udc) 30 ml PO Q4H PRN PRN Reason: GI Upset Stop: 05/08/23 20:28 Apixaban (Apixaban 5 Mg Tablet) 5 mg PO [id number] RENU Stop: 05/12/23 08:59 Last Admin: 04/14/23 08:34 Dose: 5 mg Bismuth Subsalicylate (Bismuth Subsalicylate Liqd 236 Ml) 15 ml PO PRN PRN PRN Reason: Loose Stool Stop: 05/08/23 20:28 Famotidine (Famotidine 20 Mg Tab) 20 mg PO QAM [facility] Stop: 05/12/23 08:59 Last Admin: 04/14/23 08:34 Dose: 20 mg Hydroxyzine HCl (Hydroxyzine Hcl 25 Mg Tab) 50 mg PO HSZ PRN PRN Reason: Insomnia Stop: 05/08/23 20:28 Hydroxyzine HCl (Hydroxyzine Hcl 25 Mg Tab) 25 mg PO Q4H PRN PRN Reason: Anxiety Stop: 05/08/23 20:28 Levothyroxine Sodium (Levothyroxine Sodium 50 Mcg Tablet) 50 mcg PO DAILYBB [facility] Stop: 05/09/23 10:59 Last Admin: 04/14/23 08:34 Dose: 50 mcg [place] Carbonate ([place] Carbonate Slow Rel 300 Mg Tab) 300 mg PO QAM [facility] Stop: 05/12/23 08:59 Last Admin: 04/14/23 08:34 Dose: 300 mg Magnesium Hydroxide (Magnesium Hydroxide Susp 30 Ml Udc) 30 ml PO DAILY PRN PRN Reason: Constipation Stop: 05/08/23 20:28 Olanzapine (Olanzapine 5 Mg Tablet) 5 mg PO Q6 PRN PRN Reason: Anxiety/Agitation Stop: 05/09/23 00:00 Last Admin: 04/13/23 13:30 Dose: 5 mg Pantoprazole Sodium (Pantoprazole 40 Mg Tab) 40 mg PO QAM [facility] Stop: 05/09/23 08:59 Last Admin: 04/14/23 08:34 Dose: 40 mg Propranolol HCl (Propranolol Hcl 20 Mg Tab) 40 mg PO BID17 RENU Stop: 05/12/23 08:59 Last Admin: 04/14/23 08:35 Dose: 40 mg Sodium Chloride (Sodium Chloride 0.65% Na Soln 45 Ml ([place])) 1 - 2 sprays NA PRN PRN PRN Reason: Nasal Dryness/Congestion Stop: 05/08/23 20:28 Mental Health & Subst Abuse Tx Psychiatrist Name of Psychiatrist: [facility] Psychiatrist's Date Of Appointment With Psychiatric Provider: 04/16/23 Time of Appointment with Psychiatrist: 8:30am Psychiatric Appointment Comment: [address] [place] [address] Therapist Name of Therapist: Jeremy Elkins Therapist's Date of Therapist Appointment: 04/17/1200 Time of Therapist Appointment: 12:00 PM Therapy Appointment Comment: This appointment is via telehealth. Synthetic Filament Extruder Name of Synthetic Filament Extruder: Andreea Evans Phone Number for Synthetic Filament Extruder: [phone] Date of Appointment with Synthetic Filament Extruder: 04/16/23 Time of Appointment with Synthetic Filament Extruder: 12:15 PM Post Discharge Appointments Primary Care Physician Name Of Family Doctor/PCP: Bubba Chaparro PA-C Primary Care Time of Appointment with PCP: [facility] [address] [place] [address] Provider Appointment Comment: Please follow-up with your PCP as needed. Socket Welder Helper Name of Socket Welder Helper: ABELARDO Crisis Peer Support Phone Number of Socket Welder Helper: [phone] Socket Welder Helper Appointment Comment: A crisis peer technical support associate will follow-up with you directly to schedule. Specialist Name of Specialist: Gynecology (1) Bipolar disorder Active/Remission status: currently active Current bipolar episode type: depressed Psychotic features: with psychotic features
--- NOTE | 2023-04-14 13:59 | Discharge Summary ---
Date of Service April 14, 2023 History of Present Illness Patient was last seen on our service in May 2022. Since that time she has been hospitalized at 07/17 [facility], 08/16 [facility], 10/18 [facility], 11/15 [facility], 01/15 [facility], 02/15 [place]. Hospitalizations are always for SI, typically with plan to OD on medication and reports command auditory rhoades to act on these thoughts. Presents with same, can only add that her [place]on was decreased to 300 mg BID from 600 mg BID as she felt "foggy" and now on GILLETTE but I do not see rx in surecripts and am pending records. She has difficulties describing her safety plan or identifying specific coping skills. Denies issues at home. Now gets disability. Physical Exam Vital Signs (Past 24 Hours) Last Vital Signs Temp 36.7 C 04/14/23 06:28 Pulse 69 04/14/23 06:28 Resp 16 04/14/23 06:28 BP 118/74 04/14/23 06:28 Pulse Ox 98 04/13/23 06:00 O2 Del Method Room Air 04/13/23 06:00 See admission H&P and DOD summary. Principal Diagnosis Borderline Personality Disorder Psychiatric Data See daily stay summary. In short, safety was maintained and after isolating to her room and declining medication for the initial days of her admission she was then cooperative with care. Medication changes included reduction of [place] to 300mg qAM, discontinuation of Wellbutrin and use of olanzapine 5mg daily prn for auditory hallucinations and they tolerated this well. Baseline labs of fasting glucose and fasting lipid profile were preformed and normal with the exception of elevated triglycerides. Delfina agrees to discuss this further with her primary care provider, recommend ongoing monitoring if she remains on antipsychotic medication. Recommend repeat fasting glucose, HbA1c if indicated and fasting lipid profile at least annually. If symptoms arise recommend checking BP, EKG, prolactin level as clinically indicated or relevant. A support session was held and safety plan was completed prior to discharge. She actively participated in safety planning and in discussions about ways to seek support and recognizing warning signs and utilizing coping skills. Discussed recommendation that she engage in outpatient DBT work to address her chronic intermittent SI and continue to develop increased distress tolerance skills. Reviewed importance of seeking emergency care should SI intensify, worsen or should they feel unsafe in the future which they agree to do. On the day of discharge she stated her mood was "good" and remained future-oriented including seeing her and in-laws and engaging in aftercare appointments for psychiatry, therapy and case management. Day of Discharge Assessment Today the patient voices readiness for discharge. They note improvement in mood and anxiety. They deny thoughts of harm to self or others. Thoughts are organized and they are clinically improved from admission. There is no evidence of psychosis. They improved in the hospital with support and medication adjustments. They agree to take medications as prescribed and keep follow-up appointments. At the time of the discharge they are deemed to be stable and appropriate for outpatient level of care. They are not deemed to be at imminent risk of harm to self or others. They are aware of emergency and crisis services. Knows to call 911 or go to nearest emergency care center if in a crisis which cannot be handled as an outpatient. Transition of Care Transition Of Care Record: was reviewed with the patient Advance Directives Advance Directives Information Provided: Yes Advance Directives: No Mental Health Advance Directive: No Advance Directives on File: No Living Will: No Power of Oil Dispatcher: No Advance Directives Reason:: Declines as Mental Health Visit. Suicide Risk Level Suicide Risk Level Comments: Acute risk is low given improvement in mood and denial of SI, lack of access to lethal means, hopefulness and decrease in auditory hallucinations. Chronic risk is moderate given multiple non-modifiable risk factors: psychiatric co-morbid diagnoses, periods of impulsivity, prior attempt, hx self-harm, emotional re activity, chronic illness, prior psychiatric hospitalizations, mood disorder, cluster B personality disorder but also with protective factors including: good social support, sense of responsibility to family and social supports, outpatient care in place, willingness to engage with treatment. Counseled on ways to reduce acute and chronic risk including working on DBT skills, engaging with outpatient providers, using safety plan if needed, utilizing supports, taking medication, and using coping skills. Modifiable risk factors of SI and depression were addressed during hospitalization through practicing coping skills, support meeting, safety planning, and medication adjustments. Risk Factors Assessment Male: No : Yes Do You Have Access To A Gun?: No Health Problems: Yes Mental Health Diagnoses: Yes Substance Use Disorders: No Previous Attempt: Yes Family History of Suicide: No Previous Psychiatric Hospitalization: Yes Hopelessness: No Protective Factors Assessment Employed: No Stable Relationships: Yes Supportive Family: Yes Good Rapport with Provider: Yes Antipsychotic Medications Cross-taper from Invega GILLETTE to olanzapine as needed for auditory hallucinations in progress at the time of discharge. She may start Caplyta in the future but agrees not to start this until after the Invega GILLETTE is out of her system, likely in about two more weeks, and will not do so without first discussing with her outpatient psychiatric provider as she knows that she should not take both Caplyta and Invega and/or olanzapine concurrently to minimize side effect risks. Discharge Data Lab Results 04/08/23 04/08/23 04/08/23 17:47 17:47 17:55 WBC RBC Hgb Hct MCV MCH MCHC RDW Std Deviation RDW Coeff of Toni Plt Count MPV Immature Gran % (Auto) Neut % (Auto) Lymph % (Auto) [place] % (Auto) Eos % (Auto) Baso % (Auto) Neut # (Auto) Lymph # (Auto) [place] # (Auto) Eos # (Auto) Baso # (Auto) Immature Gran # (Auto) Sodium Potassium Chloride Carbon Dioxide Anion Gap BUN Creatinine Est Cr Clr Drug Dosing Est GFR ( Amer) Est GFR (Non-Af Amer) BUN/Creatinine Ratio Glucose Fasting Glucose Calcium Total Bilirubin AST ALT Alkaline Phosphatase Total Protein Albumin Globulin Albumin/Globulin Ratio Triglycerides Cholesterol LDL Cholesterol, Calc VLDL Cholesterol, Calc HDL Cholesterol Cholesterol/HDL Ratio TSH HCG, Qual Urine Color Yellow Urine Appearance Clear Urine pH 7.5 Ur Specific [place] 1.012 Urine Protein Negative Urine Glucose (UA) Negative Urine Ketones Negative Urine Blood 2+ H Urine Nitrite Negative Urine Bilirubin Negative Urine Urobilinogen Negative Ur Leukocyte Esterase Negative Urine WBC (Auto) 1-5 Urine RBC (Auto) 0-4 U Hyaline Cast (Auto) 1-5 U Epithel Cells (Auto) >30 H Urine Bacteria (Auto) Negative Salicylates Urine Opiates Screen Neg Ur Methadone, Qual Neg Acetaminophen Urine Barbiturates Neg Ur Phencyclidine (PCP) Neg U Amphetamin/Meth Scrn Neg MDMA (Ecstasy) Screen Neg U Benzodiazepines Scrn Neg [place] Ur Cocaine Metabolite Neg U Marijuana (THC) Screen Neg Ethyl Alcohol mg/dL SARS-CoV-2, RNA, NAAT NEGATIVE 04/08/23 04/08/23 04/08/23 18:08 18:08 18:08 WBC 11.95 H RBC 4.26 Hgb 13.5 Hct 38.8 MCV 91.1 MCH 31.7 MCHC 34.8 RDW Std Deviation 43.4 RDW Coeff of Toni 13.0 Plt Count 724 H MPV 9.1 L Immature Gran % (Auto) 0.3 Neut % (Auto) 43.7 Lymph % (Auto) 40.5 [place] % (Auto) 11.2 Eos % (Auto) 3.5 Baso % (Auto) 0.8 Neut # (Auto) 5.23 Lymph # (Auto) 4.84 H [place] # (Auto) 1.34 H Eos # (Auto) 0.42 Baso # (Auto) 0.09 Immature Gran # (Auto) 0.03 Sodium 137 Potassium 3.9 Chloride 108 H Carbon Dioxide 22 Anion Gap 7 BUN 9 Creatinine 0.81 Est Cr Clr Drug Dosing 116.6 Est GFR ( Amer) 117.8 Est GFR (Non-Af Amer) 101.7 BUN/Creatinine Ratio 11.1 Glucose 85 Fasting Glucose Calcium 9.1 Total Bilirubin 0.4 AST 11 L ALT 14 Alkaline Phosphatase 100 Total Protein 7.0 Albumin 4.3 Globulin 2.7 Albumin/Globulin Ratio 1.6 Triglycerides Cholesterol LDL Cholesterol, Calc VLDL Cholesterol, Calc HDL Cholesterol Cholesterol/HDL Ratio TSH 2.978 HCG, Qual Urine Color Urine Appearance Urine pH Ur Specific [place] Urine Protein Urine Glucose (UA) Urine Ketones Urine Blood Urine Nitrite Urine Bilirubin Urine Urobilinogen Ur Leukocyte Esterase Urine WBC (Auto) Urine RBC (Auto) U Hyaline Cast (Auto) U Epithel Cells (Auto) Urine Bacteria (Auto) Salicylates Urine Opiates Screen Ur Methadone, Qual Acetaminophen Urine Barbiturates Ur Phencyclidine (PCP) U Amphetamin/Meth Scrn MDMA (Ecstasy) Screen U Benzodiazepines Scrn [place] Ur Cocaine Metabolite U Marijuana (THC) Screen Ethyl Alcohol mg/dL SARS-CoV-2, RNA, NAAT 04/08/23 04/08/23 04/08/23 18:08 18:08 18:08 WBC RBC Hgb Hct MCV MCH MCHC RDW Std Deviation RDW Coeff of Toni Plt Count MPV Immature Gran % (Auto) Neut % (Auto) Lymph % (Auto) [place] % (Auto) Eos % (Auto) Baso % (Auto) Neut # (Auto) Lymph # (Auto) [place] # (Auto) Eos # (Auto) Baso # (Auto) Immature Gran # (Auto) Sodium Potassium Chloride Carbon Dioxide Anion Gap BUN Creatinine Est Cr Clr Drug Dosing Est GFR ( Amer) Est GFR (Non-Af Amer) BUN/Creatinine Ratio Glucose Fasting Glucose Calcium Total Bilirubin AST ALT Alkaline Phosphatase Total Protein Albumin Globulin Albumin/Globulin Ratio Triglycerides Cholesterol LDL Cholesterol, Calc VLDL Cholesterol, Calc HDL Cholesterol Cholesterol/HDL Ratio TSH HCG, Qual Negative Urine Color Urine Appearance Urine pH Ur Specific [place] Urine Protein Urine Glucose (UA) Urine Ketones Urine Blood Urine Nitrite Urine Bilirubin Urine Urobilinogen Ur Leukocyte Esterase Urine WBC (Auto) Urine RBC (Auto) U Hyaline Cast (Auto) U Epithel Cells (Auto) Urine Bacteria (Auto) Salicylates < 3.0 L Urine Opiates Screen Ur Methadone, Qual Acetaminophen < 3 L Urine Barbiturates Ur Phencyclidine (PCP) U Amphetamin/Meth Scrn MDMA (Ecstasy) Screen U Benzodiazepines Scrn [place] 0.4 L Ur Cocaine Metabolite U Marijuana (THC) Screen Ethyl Alcohol mg/dL < 10.0 SARS-CoV-2, RNA, NAAT 04/14/23 07:28 WBC RBC Hgb Hct MCV MCH MCHC RDW Std Deviation RDW Coeff of Toni Plt Count MPV Immature Gran % (Auto) Neut % (Auto) Lymph % (Auto) [place] % (Auto) Eos % (Auto) Baso % (Auto) Neut # (Auto) Lymph # (Auto) [place] # (Auto) Eos # (Auto) Baso # (Auto) Immature Gran # (Auto) Sodium Potassium Chloride Carbon Dioxide Anion Gap BUN Creatinine Est Cr Clr Drug Dosing Est GFR ( Amer) Est GFR (Non-Af Amer) BUN/Creatinine Ratio Glucose Fasting Glucose 96 Calcium Total Bilirubin AST ALT Alkaline Phosphatase Total Protein Albumin Globulin Albumin/Globulin Ratio Triglycerides 250 H Cholesterol 170 LDL Cholesterol, Calc 86 VLDL Cholesterol, Calc 50 H HDL Cholesterol 34 Cholesterol/HDL Ratio 5.0 TSH HCG, Qual Urine Color Urine Appearance Urine pH Ur Specific [place] Urine Protein Urine Glucose (UA) Urine Ketones Urine Blood Urine Nitrite Urine Bilirubin Urine Urobilinogen Ur Leukocyte Esterase Urine WBC (Auto) Urine RBC (Auto) U Hyaline Cast (Auto) U Epithel Cells (Auto) Urine Bacteria (Auto) Salicylates Urine Opiates Screen Ur Methadone, Qual Acetaminophen Urine Barbiturates Ur Phencyclidine (PCP) U Amphetamin/Meth Scrn MDMA (Ecstasy) Screen U Benzodiazepines Scrn [place] Ur Cocaine Metabolite U Marijuana (THC) Screen Ethyl Alcohol mg/dL SARS-CoV-2, RNA, NAAT Hospital Course (1) Borderline personality disorder: (2) Bipolar disorder: (3) Acquired asplenia: Mental Health & Subst Abuse Tx Psychiatrist Name of Psychiatrist: Temitope Trimble Psychiatrist's Date Of Appointment With Psychiatric Provider: 04/16/23 Time of Appointment with Psychiatrist: 8:30am Psychiatric Appointment Comment: [address] [place] [address] Therapist Name of Therapist: Jeremy Elkins Therapist's Date of Therapist Appointment: 04/17/1200 Time of Therapist Appointment: 12:00 PM Therapy Appointment Comment: This appointment is via telehealth. Senior Media Buyer Name of Senior Media Buyer: Andreea Evans Phone Number for Senior Media Buyer: [phone] Date of Appointment with Senior Media Buyer: 04/16/23 Time of Appointment with Senior Media Buyer: 12:15 PM Post Discharge Appointments Primary Care Physician Name Of Family Doctor/PCP: Bubba Chaparro PA-C Primary Care Time of Appointment with PCP: [facility] [address] [place] [id number] Provider Appointment Comment: Please follow-up with your PCP as needed. Coat Fitter Name of Coat Fitter: ABELARDO Crisis Peer Support Phone Number of Coat Fitter: [phone] Coat Fitter Appointment Comment: A crisis peer direct support professional home health will follow-up with you directly to schedule. Specialist Name of Specialist: Gynecology Discharge Plan Discharge Items Patient Disposition: Home - Self-Care Reason For Visit: DEPRESSION Discharge Diagnosis: Borderline Personality Disorder Activity: Resume your previous activity Non-emergency contact: Primary Care Provider, Psychiatrist, Therapist and Firestop/Containment Worker Call non-emergency contact if: you have any medication questions and your symptoms worsen Follow-up/Referrals: Kinsey Chaparro PA-C [Primary Care Provider] - Diet: Regular Addtl Attending Provider Instructions: Optional mobile apps: -Suicide safety plan -Virtual Hope Box SPECIAL CARE INSTRUCTIONS: 1. Follow through with your scheduled aftercare appointments. If unable to keep an appointment, please call to reschedule. 2. Take your medication only as prescribed. Medication should not be changed or stopped without the approval of your doctor. In the event of worsening symptoms or concerns about side effects, contact your doctor immediately. 3. Utilize new healthy coping skills, anger management skills, and stress management skills learned during your hospitalization. Journal feelings and process them with a support person. Identify stressors or situations that may result in relapse, deterioration or inappropriate behaviors and develop a plan to deal with those issues. 4. If your coping skills are ineffective and you are in crisis, contact your outpatient providers for direction. If unable to reach your providers, please call the [facility] CRISIS LINE AT , go to the [facility] walk-in center at [address], [address], [place], or go to the closest Emergency Room. 5. Avoid alcohol and un-prescribed drugs. 6. You have been provided with the Mental Health Advance Directives Pamphlet for your review. 7. Your condition is stable for discharge to outpatient level of care, but recovery is an ongoing process. Ifthoughts to harm yourself or others return, follow the safety plan developed during your stay. Planning for a safe return home includes securing weapons. Our treatment team recommends weaponsbe removed from the home until your outpatient provider reassesses your progress. In rare cases where the items themselvescannot be removed, guns and ammunitionshould be secured separatelyand keys stored by a reliable personoutside of the home. If you were admitted on an involuntary commitment, the police or other legal authorities may be involved in this process. AFTERCARE APPOINTMENTS: * Please call your insurance company prior to your scheduled appointment to confirm your aftercare providers are covered. Take your insurance information to your appointments. WHO TO CALL AND WHEN: Medical Emergencies: For questions or emergencies related to your hospital stay, please contact the Inpatient Behavioral Health Unit at [phone]. A leather repairer is on-call 18/03 for the Behavioral Health Unit for emergencies At any time you feel your situation is an emergency, you may also call 911 immediately. National Crisis Hotline 706 Pending Studies at Discharge: No Stand-Alone Forms: My [facility] Medications and DC Order Prescriptions: New Caplyta 10.5 mg capsule 10.5 mg PO DAILY Qty: 30 0RF olanzapine 5 mg Tablet 5 mg PO DAILY PRN (Reason: auditory hallucinations) 5 Days Qty: 5 0RF lithium carbonate 300 mg Tablet Extended Release 300 mg PO QAM 30 Days Qty: 30 0RF Continued Reyvow 50 mg Tablet 50 mg PO DAILY MDD 1 tablet PRN (Reason: Migraine Headache) Rx Instructions: take at onset of migraine famotidine 20 mg Tablet 20 mg PO BID Eliquis 5 mg tablet 5 mg PO AMHS propranolol 40 mg tablet 40 mg PO BID omeprazole 40 mg capsule,delayed release(DR/EC) 40 mg PO QAM Emgality Pen 120 mg/mL pen injector 120 mg SUBCUT MONTHLY levothyroxine 50 mcg tablet 50 mcg PO DAILY clonidine HCl 0.1 mg tablet 0.1 mg PO BID PRN (Reason: Anxiety) norethindrone (contraceptive) 0.35 mg tablet 0.35 mg PO DAILY Discontinued lithium carbonate 300 mg tablet extended release 300 mg PO BID bupropion HCl 150 mg tablet extended release 24 hr 150 mg PO DAILY doxepin 25 mg capsule 25 mg PO HS PRN (Reason: Insomnia) Rx Instructions: PRN Invega Sustenna 156 mg/mL Syringe 156 mg IM MONTHLY Discharge Orders: Discharge Order (Routine); Ordered 04/14/23 Ordered By: Alma Rosa Mendez Admission Data Admit Date/Time: 04/08/23 20:30 Attending Provider: Alma Rosa Mendez Admit Provider: Deepthi Mayo Primary Care Provider: Kinsey Chaparro Other Interventions: Discharge Summary Assessment (RN) Last Done: 04/14/23 14:03 PSY Interdisciplinary Discharge Planning Last Done: 04/14/23 14:14 Coding Level of Care Code 23350 D/C day mgmt > 30 min Diagnoses Borderline personality disorder F60.3 Bipolar disorder F31.9 Active/Remission status: currently active Current bipolar episode type: depressed Psychotic features: with psychotic features Acquired asplenia Z90.81 Time Spent (min) 50
== END 2023-04-14 14:24 | disposition home or self-care (01) | DRG 883 ==
LOC: ED 17:32 → 3S 20:30 → SUATTDRO 20:30 → 3S 21:05

== ENCOUNTER 2023-08-30 17:27 | Inpatient (IN) ==
--- NOTE | 2023-08-30 18:15 | Emergency Department Note ---
Impression & Plan COVID-19 ED Provider Note NAME: MAKENZIE HILLIARD AGE: 22 SEX: F : 2000 ARRIVES VIA: Walk-In INFORMANT: Patient, ED PROVIDER(S): Elda Hair MD CHIEF COMPLAINT: SI HPI: This is a 22-year-old with history of SI, bipolar, MDD, PTSD presenting for SI. Patient states she was recently here with suicidal thoughts, was at [place] and discharge. States that she was doing well but then had recurring suicidal thoughts. She notes that she was thinking about overdosing on her pills. She does not feel safe to go home as she think she would not act on these. Otherwise she states she hears voices, male voices, telling her to hurt herself. She has no triggering events that led to this suicidal thoughts. ROS: See above HPI for pertinent positives & negatives. A total of 10 systems reviewed and were otherwise negative. PAST MEDICAL HISTORY: See Below PAST SURGICAL HISTORY: See Below FAMILY HISTORY: See Below SOCIAL HISTORY: See Below HOME MEDICATIONS: See Below ALLERGIES: See Below VITALS: See Below PHYSICAL EXAMINATION: General: resting comfortably in no acute distress Head: Normocephalic and atraumatic Eyes: Normal inspection, extraocular muscles intact Ear, nose, throat: Normal external exam Neck: Normal range of motion Respiratory: lungs clear to auscultation bilaterally Cardiovascular: Regular rate/rhythm, no murmur GI: soft, nontender, no guarding or rebound Extremities: nontender, moves all extremities Neuro: The patient awake and alert, appropriately conversive, no focal deficits, symmetric faces Skin: Warm, dry, and intact Psych: Flat affect MEDICAL DECISION MAKING: This is a 22-year-old female with history of SI, Eppler, MDD, PTSD presenting for SI. Patient recently admitted inpatient for SI. Discharged with recurrence of SI. Patient does not feel safe going home after discussion with myself and onsite case manager. -COVID-positive -Patient is have transaminitis of unclear etiology without abdominal pain -No evidence of ingestion of any type of coingestions or illicit drug -Patient is not a candidate for psychiatric mission due to COVID-19 status -Will admit to [facility] hospital service until patient is medically clear Past Med/Surg History Medical History Asplenia Depression with suicidal ideation Depression with suicidal ideation Eating disorder, unspecified Intermittent asthma Involuntary commitment Major depression Major depressive disorder with psychotic features MDD (major depressive disorder), recurrent, severe, with psychosis Brock brock disease Portal vein thrombosis PTSD (post-traumatic stress disorder) Spherocytosis Suicidal ideation Superior mesenteric vein thrombosis Thrombocytosis Surgical History History of splenectomy Family History Denies family history of Coronary heart disease Social History Smoking Status: Never smoker Hx Alcohol Use: No Hx Substance Use: No Preferred Language: Belarusian Communication Ability: Effective Automatic Transmission Mechanic Required: No Beliefs That Will Affect Care: None marital status: Current Living Situation: Significant Other How many Children do You have: 0 Feels Safe at Home: Yes Gender Identity: Female Assistive Devices: Glasses Allergies Allergies Allergy/AdvReac Type Severity Reaction Status Date / Time vancomycin Allergy Intermediate Red/Itchy Verified 01/23/23 22:25 skin Home Meds Home Medications Medication Instructions Recorded Confirmed apixaban 5 mg tablet (Eliquis) 5 mg PO AMHS 07/27/22 08/30/23 propranolol 40 mg tablet 40 mg PO BID 07/27/22 08/30/23 famotidine 20 mg tablet 20 mg PO BID 10/13/22 08/30/23 galcanezumab-gnlm 120 mg/mL 120 mg subcut MONTHLY 01/23/23 08/30/23 subcutaneous pen injector (Emgality Pen) omeprazole 40 mg capsule,delayed 40 mg PO QAM 01/23/23 08/30/23 release levothyroxine 50 mcg tablet 50 mcg PO DAILY 04/08/23 08/30/23 norethindrone (contraceptive) 0.35 0.35 mg PO DAILY 04/11/23 08/30/23 mg tablet haloperidol 5 mg tablet 5 mg PO 1XD 08/30/23 08/30/23 lithium carbonate 300 mg capsule 300 mg 3XD 08/30/23 08/30/23 naltrexone 50 mg tablet 25 mg PO 1XD 08/30/23 08/30/23 olanzapine 20 mg tablet 20 mg PO 1XD HS 08/30/23 08/30/23 Results & Data (ED) Vital Signs Vital Signs - 24 hr 08/30/23 17:31 Temperature 36.6 C Temperature Source Temporal Artery Scan Pulse Rate 96 H Respiratory Rate 16 Respiratory Effort / Characteristics Non-Labored Spontaneous Respiratory Depth Normal Respiratory Pattern Regular Blood Pressure 116/77 Blood Pressure Mean 90 Pulse Oximetry 96 Oxygen Delivery Method Room Air Sepsis Recent Fever Within 48 Hours No Sepsis New/Unexplained Change in Mental Status No Sepsis Action Taken by Nursing No Action Required Laboratory Data 08/30/23 18:03 08/30/23 18:03 Lab Results 08/30/23 08/30/23 08/30/23 Range/Units 15:37 18:03 Unknown WBC 9.32 (4.8-10.8) K/ul RBC 4.71 (4.20-5.40) M/uL Hgb 14.3 (12.0-16.0) g/dl Hct 41.2 (37.0-47.0) % MCV 87.5 (80.0-100.0) fL MCH 30.4 (25.0-34.0) pg MCHC 34.7 (32.0-36.0) g/dL RDW Std Deviation 43.1 (36.4-46.3) fL RDW Coeff of Toni 13.4 (11.5-14.5) % Plt Count 508 H (130-400) K/uL MPV 9.5 (9.4-12.4) fL Immature Gran % (Auto) 0.1 % Neut % (Auto) 46.5 % Lymph % (Auto) 34.0 % [place] % (Auto) 17.6 % Eos % (Auto) 1.3 % Baso % (Auto) 0.5 % Neut # (Auto) 4.33 (1.40-6.50) K/uL Lymph # (Auto) 3.17 (1.20-3.40) K/uL [place] # (Auto) 1.64 H (0.11-0.59) K/uL Eos # (Auto) 0.12 (0.00-0.50) K/uL Baso # (Auto) 0.05 (0.00-0.20) K/uL Immature Gran # (Auto) 0.01 (0.01-0.20) K/uL Sodium 138 (136-145) mmol/L Potassium 3.7 (3.5-5.1) mmol/L Chloride 105 (98-107) mmol/L Carbon Dioxide 23 (21-32) mmol/L Anion Gap 10 (3-11) BUN 12 (6-23) mg/dl Creatinine 0.74 (0.6-1.2) mg/dl Est Cr Clr Drug Dosing 108.0 ml/min Est GFR ( Amer) 131.4 ml/min Est GFR (Non-Af Amer) 113.4 ml/min BUN/Creatinine Ratio 16.2 (10-20) Glucose 91 (70-99(Fasting)) mg/dl Calcium 9.1 (8.6-10.3) mg/dl Total Bilirubin 0.5 (0.2-1.0) mg/dl AST 54 H (13-39) U/L ALT 183 H (7-52) U/L Alkaline Phosphatase 203 H (34-104) U/L Total Protein 7.2 (6.0-8.3) gm/dl Albumin 4.2 (3.4-5.0) gm/dl Globulin 3.0 (2.5-4.0) gm/dl Albumin/Globulin Ratio 1.4 (0.9-2) TSH 2.030 (0.300-4.500) uIu/ml Urine Color Yellow Urine Appearance Clear (Clear) Urine pH 7.0 (4.5-7.5) Ur Specific [place] 1.018 (1.000-1.030) Urine Protein Negative (Negative) Urine Glucose (UA) Negative (Negative) Urine Ketones Negative (Negative) Urine Blood Negative (Negative) Urine Nitrite Negative (Negative) Urine Bilirubin Negative (Negative) Urine Urobilinogen Negative (Negative) Ur Leukocyte Esterase Negative (Negative) Salicylates < 3.0 L (3.0-30) mg/dl Urine Opiates Screen Neg (Neg) Ur Methadone, Qual Neg (Neg) Acetaminophen < 3 L (10-30) ug/ml Urine Barbiturates Neg (Neg) Ur Phencyclidine (PCP) Neg (Neg) U Amphetamin/Meth Scrn Neg (Neg) MDMA (Ecstasy) Screen Neg (Neg) U Benzodiazepines Scrn Neg (Neg) Ur Cocaine Metabolite Neg (Neg) U Marijuana (THC) Screen Neg (Neg) Ethyl Alcohol mg/dL < 10.0 (<10.0) mg/dl SARS-CoV-2, RNA, NAAT POSITIVE A* (NEGATIVE) Discharge Plan Visit Data Chief Complaint: Mental Health Evaluation Stated Complaint: SUICIDAL THOUGHTS/ATTEMPT ED Provider: Elda Hair Discharge Problem: COVID-19 Forms Stand Alone Forms: My [facility], Suicide Prevention Resources Prescriptions Prescriptions: No Action famotidine 20 mg Tablet 20 mg PO BID Eliquis 5 mg tablet 5 mg PO AMHS propranolol 40 mg tablet 40 mg PO BID omeprazole 40 mg capsule,delayed release(DR/EC) 40 mg PO QAM Emgality Pen 120 mg/mL pen injector 120 mg SUBCUT MONTHLY levothyroxine 50 mcg tablet 50 mcg PO DAILY norethindrone (contraceptive) 0.35 mg tablet 0.35 mg PO DAILY haloperidol 5 mg tablet 5 mg PO 1XD naltrexone 50 mg tablet 25 mg PO 1XD lithium carbonate 300 mg capsule 300 mg 3XD olanzapine 20 mg tablet 20 mg PO 1XD Referrals Referrals: Kinsey Chaparro PA-C [Primary Care Provider] -
[2023-08-30 18:22] LABS: Appearance Urine Clear (Clear); Bilirubin Urine Negative (Negative); Blood Urine Negative (Negative); Color Urine Yellow; Glucose Urine UA Negative (Negative); Ketones Urine Negative (Negative); Leukocyte Esterase Urine Negative (Negative); Nitrite Urine Negative (Negative); Protein Urine Negative (Negative); Specific Gravity Urine 1.018 (1.000-1.030); Urobilinogen Urine Negative (Negative)
[2023-08-30 18:49] LABS: Basophils # (auto) 0.05 K/uL (0.00-0.20); Basophils % (auto) 0.5 %; Eosinophils # (auto) 0.12 K/uL (0.00-0.50); Eosinophils % (auto) 1.3 %; Hematocrit (blood only) 41.2 % (37.0-47.0); Hemoglobin 14.3 g/dl (12.0-16.0); Immature Granulocytes # (auto) 0.01 K/uL (0.01-0.20); Immature Granulocytes % (auto) 0.1 %; Lymphocytes # (auto) 3.17 K/uL (1.20-3.40); Mean Corpuscular Hemoglobin 30.4 pg (25.0-34.0); Mean Corpuscular Hgb Conc 34.7 g/dL (32.0-36.0); Mean Corpuscular Volume 87.5 fL (80.0-100.0); Mean Platelet Volume 9.5 fL (9.4-12.4); Monocytes # (auto) 1.64 K/uL (0.11-0.59); Monocytes % (auto) 17.6 %; Neutrophils # (auto) 4.33 K/uL (1.40-6.50); Neutrophils % (auto) 46.5 %; Platelet Count 508 K/uL (130-400); RDW Coefficient of Variation 13.4 % (11.5-14.5); RDW Standard Deviation 43.1 fL (36.4-46.3); Red Blood Count 4.71 M/uL (4.20-5.40); White Blood Count 9.32 K/ul (4.8-10.8)
[2023-08-30 18:50] LABS: Amphetamines+Metham, Urine Neg (Neg); Barbiturates, Urine Neg (Neg); Benzodiazepine, Urine Neg (Neg); Cocaine, Urine Neg (Neg); MDMA (Ecstacy), Urine Neg (Neg); Marijuana, Urine Neg (Neg); Methadone, Urine Neg (Neg); Opiate, Urine Neg (Neg); Phencyclidine, Urine Neg (Neg)
[2023-08-30 18:52] LABS: Acetaminophen < 3 ug/ml (10-30); Salicylate < 3.0 mg/dl (3.0-30)
[2023-08-30 19:09] LABS: Est GFR (African American) 131.4 ml/min; Potassium 3.7 mmol/L (3.5-5.1)
[2023-08-30 19:10] LABS: Albumin Globulin Ratio 1.4 (0.9-2); Albumin Level 4.2 gm/dl (3.4-5.0); BUN Creatinine Ratio 16.2 (10-20); Bilirubin,Total 0.5 mg/dl (0.2-1.0); Calcium 9.1 mg/dl (8.6-10.3); Est GFR (Non-African American) 113.4 ml/min; Total Protein 7.2 gm/dl (6.0-8.3)
[2023-08-30 19:23] LABS: Thyroid Stimulating Hormone 2.03 uIu/ml (0.300-4.500)
[2023-08-30] MEDS ORDERED: ACETAMINOPHEN 325 MG TAB PO STA (20:45)
--- NOTE | 2023-08-30 20:45 | History & Physical Report ---
Date of Service August 30, 2023 Assessment & Plan (1) Suicidal ideation: Plan: 22-year-old female with past med significant for hyperprolactinemia, asthma, allergic rhinitis, history of thrombosis of mesenteric vein, portal vein thrombosis, moyamoya disease, GERD, amenorrhea, migraine, thrombocytosis after splenectomy, history of essential hemorrhagic thrombocythemia, hereditary spherocytosis, severe depression with psychotic features,schizo affective disor janice, PTSD, borderline personal disorder, eating disorder with history of social ideation comes again with thoughts of hurting herself. She still had thoughts to hurt herself. Last 2 days she is having some runny nose, sore throat and cough. Denies any fevers. Has some headache. No body aches. No nausea. No chest pain or shortness of breath. No abdominal pain. Somewhat constipated. Normal bladder movements. Resting comfortably. Suicidal ideation One-on-one observation Suicidal precautions Psych consult COVID COVID precautions Supportive care History of portal vein thrombosis On [facility] Depression schizo affective disorder PTSD Borderline personality disorder Management as per psychiatry DVT prophylaxis On [facility] Disposition Medical floor Full code History of Present Illness Chief Complaint: Suicidal ideation, COVID Primary Care Provider: Kinsey Chaparro PA-C 22-year-old female with past med history significant for hyperprolactinemia, asthma, allergic rhinitis, history of thrombosis of mesenteric vein, portal vein thrombosis, moyamoya disease, GERD, amenorrhea, migraine, thrombocytosis after splenectomy, history of essential hemorrhagic thrombocythemia, hereditary spherocytosis, severe depression with psychotic features,schizo affective disorder, PTSD, borderline personal disorder, eating disorder with history of social ideation comes again with thoughts of hurting herself. She still had thoughts to hurt herself. Last 2 days she is having some runny nose, sore throat and cough. Denies any fevers. Has some headache. No body aches. No nausea. No chest pain or shortness of breath. No abdominal pain. Somewhat constipated. Normal bladder movements. Resting comfortably. Past med history. As mentioned above Past surgical history. Fusion of skull arteries. Nasal surgery. Splenectomy. Spinal puncture drainage. Stereotactic cranial intradural navigation. Vertebral artery catheter placement. Social history. . No smoking. alcohol occasional. No drug use. Family history. Father had allergy rhinitis. Mother is allergies. Maternal grandfather had CAD. Maternal grandmother had dementia. Allergies Allergy/AdvReac Type Severity Reaction Status Date / Time vancomycin Allergy Intermediate Red/Itchy Verified 01/23/23 22:25 skin Home Medications Medication Instructions Recorded Confirmed Type apixaban 5 mg tablet (Eliquis) 5 mg PO AMHS 07/27/22 08/30/23 History propranolol 40 mg tablet 40 mg PO BID 07/27/22 08/30/23 History famotidine 20 mg tablet 20 mg PO BID 10/13/22 08/30/23 History galcanezumab-gnlm 120 mg/mL 120 mg subcut MONTHLY 01/23/23 08/30/23 History subcutaneous pen injector (Emgality Pen) omeprazole 40 mg capsule,delayed 40 mg PO QAM 01/23/23 08/30/23 History release levothyroxine 50 mcg tablet 50 mcg PO DAILY 04/08/23 08/30/23 History norethindrone (contraceptive) 0.35 0.35 mg PO DAILY 04/11/23 08/30/23 History mg tablet doxepin 25 mg capsule 25 mg PO DAILY 08/30/23 08/30/23 History haloperidol 5 mg tablet 5 mg PO 1XD 08/30/23 08/30/23 History lithium carbonate 300 mg capsule 300 mg 3XD 08/30/23 08/30/23 History naltrexone 50 mg tablet 25 mg PO 1XD 08/30/23 08/30/23 History olanzapine 20 mg tablet 20 mg PO 1XD HS 08/30/23 08/30/23 History Past Med/Surg History Medical History Asplenia Depression with suicidal ideation Depression with suicidal ideation Eating disorder, unspecified Intermittent asthma Involuntary commitment Major depression Major depressive disorder with psychotic features MDD (major depressive disorder), recurrent, severe, with psychosis Brock brock disease Portal vein thrombosis PTSD (post-traumatic stress disorder) Spherocytosis Suicidal ideation Superior mesenteric vein thrombosis Thrombocytosis Surgical History History of splenectomy Family History Denies family history of Coronary heart disease Social History Smoking Status: Never smoker Hx Alcohol Use: No Hx Substance Use: No Preferred Language: Sinhala Communication Ability: Effective [place] [employer] Required: No Beliefs That Will Affect Care: None marital status: Current Living Situation: Spouse and Family How many Children do You have: 0 Feels Safe at Home: Yes Gender Identity: Female Assistive Devices: Glasses Review of Systems Review of Systems: All systems reviewed & are unremarkable except as noted in HPI & below Physical Exam Physical Exam: General- Not in distress Head- atraumatic Eyes- EOMI ENT- oropharynx clear Neck- supple, no JVD. Lungs- clear to auscultation no wheezing or crackles. Heart- regular rhythm; no murmur, no gallop. Abdomen- normal bowel sounds, soft, nontender, no distension. Extremities- no pretibial edema, no erythema. Neuro- alert, oriented x 3; EOMI; no facial palsy; no dysarthria; moves extremities Results & Data Results & Data Vital Signs (Past 12 Hours) Vital Signs Temp Pulse Resp BP Pulse Ox O2 Del Method 08/30/23 17:31 36.6 C 96 H 16 116/77 96 Room Air Diagnostic Findings Laboratory Results WBC 9.32 K/ul (4.8-10.8) 08/30/23 18:03 RBC 4.71 M/uL (4.20-5.40) 08/30/23 18:03 Hgb 14.3 g/dl (12.0-16.0) 08/30/23 18:03 Hct 41.2 % (37.0-47.0) 08/30/23 18:03 MCV 87.5 fL (80.0-100.0) 08/30/23 18:03 MCH 30.4 pg (25.0-34.0) 08/30/23 18:03 MCHC 34.7 g/dL (32.0-36.0) 08/30/23 18:03 RDW Std Deviation 43.1 fL (36.4-46.3) 08/30/23 18:03 RDW Coeff of Toni 13.4 % (11.5-14.5) 08/30/23 18:03 Plt Count 508 K/uL (130-400) H 08/30/23 18:03 MPV 9.5 fL (9.4-12.4) 08/30/23 18:03 Immature Gran % (Auto) 0.1 % 08/30/23 18:03 Neut % (Auto) 46.5 % 08/30/23 18:03 Lymph % (Auto) 34.0 % 08/30/23 18:03 [place] % (Auto) 17.6 % 08/30/23 18:03 Eos % (Auto) 1.3 % 08/30/23 18:03 Baso % (Auto) 0.5 % 08/30/23 18:03 Neut # (Auto) 4.33 K/uL (1.40-6.50) 08/30/23 18:03 Lymph # (Auto) 3.17 K/uL (1.20-3.40) 08/30/23 18:03 [place] # (Auto) 1.64 K/uL (0.11-0.59) H 08/30/23 18:03 Eos # (Auto) 0.12 K/uL (0.00-0.50) 08/30/23 18:03 Baso # (Auto) 0.05 K/uL (0.00-0.20) 08/30/23 18:03 Immature Gran # (Auto) 0.01 K/uL (0.01-0.20) 08/30/23 18:03 Sodium 138 mmol/L (136-145) 08/30/23 18:03 Potassium 3.7 mmol/L (3.5-5.1) 08/30/23 18:03 Chloride 105 mmol/L (98-107) 08/30/23 18:03 Carbon Dioxide 23 mmol/L (21-32) 08/30/23 18:03 Anion Gap 10 (3-11) 08/30/23 18:03 BUN 12 mg/dl (6-23) 08/30/23 18:03 Creatinine 0.74 mg/dl (0.6-1.2) 08/30/23 18:03 Est Cr Clr Drug Dosing 108.0 ml/min 08/30/23 18:03 Est GFR ( Amer) 131.4 ml/min 08/30/23 18:03 Est GFR (Non-Af Amer) 113.4 ml/min 08/30/23 18:03 BUN/Creatinine Ratio 16.2 (10-20) 08/30/23 18:03 Glucose 91 mg/dl (70-99(Fasting)) 08/30/23 18:03 Calcium 9.1 mg/dl (8.6-10.3) 08/30/23 18:03 Total Bilirubin 0.5 mg/dl (0.2-1.0) 08/30/23 18:03 AST 54 U/L (13-39) H 08/30/23 18:03 ALT 183 U/L (7-52) H 08/30/23 18:03 Alkaline Phosphatase 203 U/L (34-104) H 08/30/23 18:03 Total Protein 7.2 gm/dl (6.0-8.3) 08/30/23 18:03 Albumin 4.2 gm/dl (3.4-5.0) 08/30/23 18:03 Globulin 3.0 gm/dl (2.5-4.0) 08/30/23 18:03 Albumin/Globulin Ratio 1.4 (0.9-2) 08/30/23 18:03 TSH 2.030 uIu/ml (0.300-4.500) 08/30/23 18:03 Urine Color Yellow 08/30/23 Unknown Urine Appearance Clear (Clear) 08/30/23 Unknown Urine pH 7.0 (4.5-7.5) 08/30/23 Unknown Ur Specific [place] 1.018 (1.000-1.030) 08/30/23 Unknown Urine Protein Negative (Negative) 08/30/23 Unknown Urine Glucose (UA) Negative (Negative) 08/30/23 Unknown Urine Ketones Negative (Negative) 08/30/23 Unknown Urine Blood Negative (Negative) 08/30/23 Unknown Urine Nitrite Negative (Negative) 08/30/23 Unknown Urine Bilirubin Negative (Negative) 08/30/23 Unknown Urine Urobilinogen Negative (Negative) 08/30/23 Unknown Ur Leukocyte Esterase Negative (Negative) 08/30/23 Unknown Salicylates < 3.0 mg/dl (3.0-30) L 08/30/23 18:03 Urine Opiates Screen Neg (Neg) 08/30/23 Unknown Ur Methadone, Qual Neg (Neg) 08/30/23 Unknown Acetaminophen < 3 ug/ml (10-30) L 08/30/23 18:03 Urine Barbiturates Neg (Neg) 08/30/23 Unknown Ur Phencyclidine (PCP) Neg (Neg) 08/30/23 Unknown U Amphetamin/Meth Scrn Neg (Neg) 08/30/23 Unknown MDMA (Ecstasy) Screen Neg (Neg) 08/30/23 Unknown U Benzodiazepines Scrn Neg (Neg) 08/30/23 Unknown Ur Cocaine Metabolite Neg (Neg) 08/30/23 Unknown U Marijuana (THC) Screen Neg (Neg) 08/30/23 Unknown Ethyl Alcohol mg/dL < 10.0 mg/dl (<10.0) 08/30/23 18:03 SARS-CoV-2, RNA, NAAT POSITIVE (NEGATIVE) A* 08/30/23 15:37 Code Status & VTE Plan VTE Prophylaxis Plan VTE Prophylaxis will be ordered: Yes
[2023-08-31] MEDS: APIXABAN 5 MG TABLET PO SCH ×3 (00:03→20:23)
[2023-08-31] MEDS: FAMOTIDINE 20 MG TAB PO SCH ×3 (00:03→20:24)
[2023-08-31] MEDS: PROPRANOLOL HCL 20 MG TAB PO SCH ×3 (00:03→20:24)
[2023-08-31] MEDS: ACETAMINOPHEN 325 MG TAB PO PRN ×2 (02:23→13:15)
[2023-08-31 04:56] LABS: Basophils # (auto) 0.05 K/uL (0.00-0.20); Basophils % (auto) 0.8 %; Eosinophils # (auto) 0.17 K/uL (0.00-0.50); Eosinophils % (auto) 2.6 %; Hemoglobin 13.5 g/dl (12.0-16.0); Immature Granulocytes # (auto) 0.01 K/uL (0.01-0.20); Immature Granulocytes % (auto) 0.2 %; Lymphocytes # (auto) 3.11 K/uL (1.20-3.40); Lymphocytes % (auto) 47.1 %; Mean Corpuscular Hemoglobin 30.1 pg (25.0-34.0); Mean Corpuscular Hgb Conc 34.6 g/dL (32.0-36.0); Mean Corpuscular Volume 87.1 fL (80.0-100.0); Mean Platelet Volume 9.3 fL (9.4-12.4); Monocytes # (auto) 1.51 K/uL (0.11-0.59); Monocytes % (auto) 22.9 %; Neutrophils # (auto) 1.75 K/uL (1.40-6.50); Neutrophils % (auto) 26.4 %; Platelet Count 497 K/uL (130-400); RDW Coefficient of Variation 13.3 % (11.5-14.5); Red Blood Count 4.48 M/uL (4.20-5.40)
[2023-08-31 05:00] LABS: BUN Creatinine Ratio 16.4 (10-20); Calcium 8.5 mg/dl (8.6-10.3); Creatinine Clr Calc Pharmacy 119.8 ml/min; Est GFR (African American) 133.6 ml/min; Est GFR (Non-African American) 115.3 ml/min; Magnesium 2.1 mg/dl (1.7-2.4); Potassium 3.6 mmol/L (3.5-5.1)
[2023-08-31] MEDS: LEVOTHYROXINE SODIUM 50 MCG TABLET PO SCH (06:30)
[2023-08-31] MEDS: PANTOprazole 40 MG TAB PO SCH (09:21)
--- OUTSIDE RECORDS SUMMARY | 2023-08-31 10:18 | External Medical Summary | Summary of Care ---
Author Name Unknown Organization [facility] Address [address] [place] [address] Phone [phone] Care Team Providers Care Disaster Recovery Coordinator Name Role Phone Kinsey Chaparro PA-C Primary Care Provider [phone] Reason for Visit * Reason Onset Date Comments Medication Refill 08/15/2023 Encounter Details Date Type Department Care Team (Late st Contact Info) Description 08/15/2023 Refill Neurology, Jeremy [address] [facility] [place] [phone] Wendy Solorio PA-C [address] [facility] [place] [address] Allergies Active Allergy Reactions Criticality Noted Date Comments Vancomycin Itching 08/03/2019 Redness of skin documented as of this encounter (statuses as of 08/16/2023) Medications Medication Sig Dispensed Refills Start Date End Date Status Dicyclomine HCl 10 MG Oral Capsule (Bentyl)Indications :Abdominal pain, generalized Take 1 Capsule by mouth 4 times a day as needed for Pain, Mild, Pain, Moderate or Cramping. For abdominal pain 360 Capsule 1 08/08/2021 Active Albuterol Sulfate HFA 108 (90 Base) MCG/ACT Inhalation Aerosol Solution Inhale by mouth 2 Puffs every 4 hours as needed (dyspnea). INHALE TWO PUFFS BY MOUTH EVERY 4 HOURS NEEDED FOR DYSPNEA 18 g 4 03/09/2022 Active Doxepin HCl 25 MG Oral Capsule (SINEquan) Take 1 Capsule by mouth at bedtime. 0 08/02/2023 Active LORazepam 1 MG Oral Tablet (Ativan) Take 1 Tablet by mouth every 8 hours as needed. 0 Active Famotidine 20 MG Oral Tablet (Pepcid)Indications :Dyspepsia Take 1 Tablet by mouth in the morning and 1 Tablet before bedtime. 180 Tablet 1 08/13/2023 Active Ondansetron 4 MG Oral Tablet Disintegrating (Zofran) Place 1 Tablet on tongue every 8 hours as needed for Nausea. 40 Tablet 0 08/13/2023 Active Apixaban 5 MG Oral Tablet (Eliquis) Take 1 Tablet by mouth in the morning and 1 Tablet before bedtime. 60 Tablet 4 08/13/2023 Active Levothyroxine Sodium 50 MCG Oral Tablet (Levoxyl) Take 1 Tablet by mouth in the morning. (at least 30 min prior to breakfast or other meds). 30 Tablet 6 08/13/2023 Active Omeprazole 40 MG Oral Capsule Delayed Release (PriLOSEC)Indicatio ns:Dyspepsia TAKE ONE CAPSULE BY MOUTH EVERY MORNING 1 HOUR BEFORE THE FIRST MEAL OF THE DAY 90 Capsule 0 08/13/2023 Active Propranolol HCl 40 MG Oral Tablet (Inderal)Indication s:Headache, unspecified headache type TAKE ONE TABLET BY MOUTH TWICE A DAY IN THE MORNING AND BEFORE BEDTIME 60 Tablet 4 08/13/2023 Active Norethindrone 0.35 MG Oral TabletIndications:P MDD (premenstrual dysphoric disorder) Take 1 Tablet by mouth in the morning. 84 Tablet 0 08/13/2023 Active Emgality 120 MG/ML Subcutaneous Solution Auto-injector (Galcanezumab-[facility]) Inject 1 mL under the skin Every Month. 1 mL 2 08/13/2023 Active Reyvow 50 MG Oral Tablet (Lasmiditan Succinate) 1 at onset of migraine. Max 1 dose in 24 hours. 15 Tablet 0 08/16/2023 Active Reyvow 50 MG Oral Tablet (Lasmiditan Succinate) 1 at onset of migraine. Max 1 dose in 24 hours. 15 Tablet 0 08/16/2022 3 Discontinue d(Refill) documented as of this encounter (statuses as of 08/16/2023) Active Problems Problem Noted Date Diagnosed Date Right wrist pain 10/27/2021 Eating disorder 10/04/2021 Allergic rhinitis 09/07/2021 Other problems related to social environment Gastro-esophageal reflux disease without esophag itis 07/17/2021 Major depression with psychotic features 021 Hereditary spherocytosis 03/16/2021 Pulmonary nodule, left 03/04/2021 Overview: Equivocal small pulmonary nodule at the left base, possibly inflammatory given none is apparent on the 03/01/2021 CT; attention can be paid with a follow-up radiograph. 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 PTSD (post-traumatic stress disorder) 12/21/2020 Overview: Per CSG 11/09/20. Borderline personality disorder 12/21/2020 Overview: Per CSG 11/09/20. Asplenia 12/14/2020 Hyperprolactinemia 08/25/2020 Migraine without aura and wi thout status migrainosus, not intractable 08/05/2020 Last Assessment & Plan: Recommendations 1. Ensure adequate hydration and small frequent meals to prevent migraines. 2. Supplementing daily with magnesium 400 mg, coenzyme Q-10 200 mg, and riboflavin (vitamin B2) 400 mg may decrease the frequency of migraine headaches. These can be obtained over the counter at any pharmacy and are not contraindicated in . The three must be taken daily to prevent migraines. Once a migraine starts, they are not effective. If you experience migraines in spite of taking all three medications, please increase the dosing of each to twice daily: once in the morning with breakfast, and again in the evening with dinner. 2. In case of migraine, Tylenol with a caffeinated beverage or Excedrin Tension Headache as needed. Advise limiting Tylenol to 1-2 doses per day. 3. Medications containing aspirin, ibuprofen and other NSAIDs should be avoided. 4. Occasional Fioricet for up to a grand total of 5 tabs in for refractory migraine is safe. 5. Recommend Neurology consult if headache symptoms worsen. 6. She should follow up with her primary provider regarding her current headache complaints. 7. Consider neurology referral for consideration of agent switch from propranolol to Lamictal for headache control and simultaneous mood stabilization. Intermittent asthma with rel iever use up to twice per week without complication 08/05/2020 Overview: Occasional inhaler use less than 1x weekly Last Assessment & Plan: Recommendations: Continue compliance with prescribed medications. Avoid triggers (such as tobacco smoke, mold, dust mite exposure, animal dander and cockroaches) Seek medical care immediately if an asthma flare does not respond to therapy promptly. Obesity, Class I, BMI 30.0-34.9 (see actual BMI) 08/05/2020 Last Assessment & Plan: DISCUSSION: 1. Discussed obstetrical risks associated with class I obesity (pre- BMI of 30 to 34.9) to include increased incidence of the following: spontaneous miscarriage, recurrent loss, diabetes in , hypertension/pre-eclampsia, IUFD, macrosomia and shoulder dystocia, hemorrhage or infection, venous thromboembolism, increased length of labor and delivery, complications with anesthesia, as well as a possibly increased risk of congenital anomalies (neural tube defects, cardiovascular, orofacial). 2. Reviewed that the accuracy of ultrasound at diagnosing anomalies is significantly decreased for women with an increased BMI. RECOMMENDATIONS: 1. Recommend restricting weight gain during to 11-20 pounds. Consider referral for nutrition consult. 2. Recommend evaluation for signs and symptoms (snoring, excessive daytime sleepiness witnessed apnea or unexplained hypoxia) of obstructive sleep apnea. If any of these are present, referral to Sleep Medicine specialist for further evaluation should be considered. 3. Recommend performing gestational diabetes mellitus screen at first visit. Female infertility 08/05/2020 Overview: Reports 12 months of infertility; oligomenorrhea. Last Assessment & Plan: Recommendations 1. Referral provided to Reproductive Endocrinology & Infertility 2. Recommend delaying until after angiogram in spring 2020; attend neurosurgery appointment on 11/21/20. Amenorrhea 06/27/2020 Overview: Intermittent periods; 5 mos off then a period 2 days ago. 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 Last Assessment & Plan: Recommendations: The incidence of hypertensive disease in is increased in [place]; during , monitor for signs & symtoms of pre-eclampsia; During , please notify your echocardiography radiology technologist if you experience headache, changes in vision, right upper quadrant abdominal pain, or neurological symptoms; Continue checking blood pressure at home twice daily; Continue low-dose aspirin therapy; Continue antiplatelet therapy; Continue hydrating with 3-4 L of water daily and avoid dehydration; During , in the setting of new, acute onset severe headache, discontinue anti-platelet therapy and seek immediate further evaluation; Preconception: consider neurology or neurosurgery referral and/or single photon emission computerized tomography (SPECT) scan or magnetic resonance imaging (MRI); Early encounter in for Maternal- Medicine consultation. Vitamin D deficiency 10/22/2019 Last Assessment & Plan: 1. Continue Vitamin D supplementations. 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 DISCUSSION: 1. Discussed with patient that depression can and should be treated during when the benefits of treatment outweigh potential risks. Risks of leaving maternal depression untreated or inadequately treated are maternal suicide/homicide, an increased risk of depression/psychosis, relapse during and impaired maternal-child bonding. Risks of untreated mental illness pose additional risks in , such as miscarriage, low weight, and delivery. 2. Discussed that although there have been reports in the past regarding anti-depressant therapy and abnormalities or complications, research has not confirmed or supported this claim. Studies of first-trimester SSRI exposure do not demonstrate consistent data to support an increased risk for structural malformations, however, echocardiogram is indicated at this time for patients who were treated with paroxetine (Paxil) in the first trimester. 3. Anti- depressants have been associated with transient effects (withdrawal syndrome). RECOMMENDATIONS: 1. Follow-up with Jazmine Logan. 2. Women who are stable from a psychiatric standpoint may be able to stay on their medication after consultation between their mental health provider and their obstetric provider. However, for most women, accessible and acceptable mental health treatment may be very limited. 3. Women who would like to discontinue their medication may attempt medication tapering and discontinuation under the direction of their prescribing physician. 4. Women who have recurrent depression or who have depression despite medication may benefit from psychotherapy to replace or augment medication. 5. Women with severe depression should continue their medication. 6. Alternative treatments such as light therapy, acupuncture treatment and omega-3 fatty acids may be tried if the patient desires. Chlorpromazine can cause abnormal embryo development in rodents. Human experience has not shown an increase in malformation risk, although transient complications including extrapyramidal symptoms might occur following 3rd trimester exposure to this agent. An increase in oral clefts was suspected after lamotrigine exposure during based on results from one registry but not confirmed in other registries or in a large record-linkage study. Based on experimental animal studies and human experience, propranolol is not anticipated to increase the risk of congenital anomalies. Intrauterine growth restriction may be associated with propranolol therapy. documented as of this encounter (statuses as of 08/16/2023) Resolved Problems Problem Noted Date Diagnosed Date Resolved Date Food insecurity 11/05/2022 03/07/2023 Overview: Per [facility] Protocol Opioid dependence in remission 05/09/2021 11/27/2022 Right upper quadrant abdominal pain 03/21/2021 03/21/2021 Schizoaffective disorder 03/08/2021 Unspecified asthma, uncomplicated 12/14/2020 05/09/2021 Encounter for initial prescr iption of implantable subdermal contraceptive 06/27/202004/26 Last Assessment & Plan: DISCUSSION: 1. Explained that the goal of pre-conception care is to identify and modify medical, behavioral and social risks to a woman's health or outcome through prevention and management. A multi-disciplinary care approach may be indicated specific to the patient's medical problems. 2. Discussed patient's and partner s family history of heritable genetic disorders. RECOMMENDATIONS: 1. Start daily vitamin supplementation with at least 400 micrograms folic acid. 2. Ensure patient is up-to-date with her immunizations. Assess maternal immunity to rubella and varicella prior to conception. If indicated, MMR and VZV should be administered greater than 1 month prior to conception. Recommend annual influenza vaccination for the patient and her partner to reduce risk of maternal infection. Tdap vaccination should be offered to women who have not been vaccinated in the past 2 years. 3. Recommend appropriate routine exercise and proper diet. Consider referral to a regional account manager prior to conception for maternal conditions that may adversely affect maternal nutritional status including obesity, diabetes, history of gastric bypass, hypertensive disorders, underweight and/or history of gastrointestinal or eating disorders. Advise regular physical activity for 30-60 minutes/day for 5 or more days per week. 4. A detailed history of prescribed and over the counter medications, teratogens, including chemical radiation exposures, infections and tobacco, alcohol or substance abuse should be obtained at least annually for all women of reproductive age. The vast majority of prescribed medications are safe in , even in the first trimester. Patient's current medication/teratogen exposures were reviewed with the patient at today's consult visit. Patient was advised to abstain from alcohol preconceptionally. 5. Patient was offered formal genetic counseling with the Maternal - Medicine genetic counselor for detailed review of risk factors for heritable genetic disorders and of appropriate genetic screenings. 6. Recommend patient seek early care once is confirmed. Rhinitis 03/21/2020 03/21/2020 History of splenectomy 08/03/201905/09 Last Assessment & Plan: Recommended vaccinations received, including Flu shot in 2020. Immunization History Administered Date(s) Administered DTaP - Dipth/Tet/Acell Pertussis 03/19/2000, 03/08/2003 HPV Vaccine, 9-Valent 10/20/2019, 01/07/2020, 05/26/2020 Hep A - Hepatitis A (ped/adole, 1-18 Yrs) 03/26/2011, 06/24/2012 Hepatitis B, 0-19 yrs 1998, 01/31/1999, 12/26/1999 IPV - Polio Virus Vaccine (Inact) 01/31/1999, 04/25/1999, 06/13/1999, 03/08/2003 MMR - Measles/Mumps/Rubella Vaccine 03/19/2000, 03/08/2003 Meningococcal Conjugate Vaccine 02/13/2000, 03/26/2011, 03/27/2016 PPD 03/01/2020, 05/26/2020, 06/07/2020 Pneumococcal Conjugate Vacc, 13 Valent (Prevnar) 04/15/2000, 05/09/2001, 10/29/2006, 06/05/2011 Pneumococcal Polysaccharide PPV23 (Pneumovax) 02/13/2000, 09/14/2019 Seasonal Influenza, Quadrivalent, No Preserve, 6 Mons & Above, IM 08/08/2001, 09/10/2001, 06/05/2011, 08/03/2019, 05/06/2020 TDAP (age 10 and older)(Boostrix) 03/26/2011 Varicella Vaccine (Chicken Pox) 07/02/2000, 03/21/2010 Seasonal allergies 08/03/2019 1 Last Assessment & Plan: Recommendations: Use only regular Claritin (loratidine); avoid use of Claritin-D (contains psuedoephedrine). Avoid use of phenylephrine-containing products, such as Sudafed, Theraflu, Benadryl Allergy Plus, Tylenol Sinus & Headache, Afrin, Sinex, Benzedrex, Axel-synephrine, and other similar nasal decongestants. documented as of this encounter (statuses as of 08/16/2023) Immunizations Name Administration Dates Next Due COVID-19 mRNA, LNP-s, No Pre serve, 2-Dose Series (Pfizer) 12/30/2020,12/07/2020 DTaP Dipth/Tet/Acell Pertussis (Infanrix), Peds 03/08/2003,03/19/2000 HIB PRP-T, 4 dose (ActHib) 12/30/2019(Loja: Contraindication - to be given prior to discharge per dr henderson) HPV Vaccine, 9-Valent 05/26/2020,01/07/2020,09/27 Hep A - Hepatitis A (ped/ado le, 1-18 Yrs) 06/24/2012,03/26/2011 Hepatitis B, 0-19 yrs 12/26/1999,01/31/1999,10/1998 IPV - Polio Virus Vaccine (Inact) 2002,06/13/1999,04/25/1999,1998 MMR - Measles/Mumps/Rubella Vaccine 03/08/2003,0 03/19/2000 Meningococcal B, OMV AJD, 2- Dose Series (BEXSERO) 09/08/2021 Meningococcal Conjugate Vaccine 03/27/2016,03/26,02/13/2000 PPD 06/07/2020,05/26/2020,03/01/2020 Pneumococcal Conjugate Vacc, 13 Valent (Prevnar) 06/05/2011,10/29/2006,05/09/2001,1999 Pneumococcal Polysaccharide PPV23 (Pneumovax) 09/14/2019,11/03/2007,10/29/2006,1999 Seasonal Influenza Virus Vac cine, Unspecified Formulation 05/06/2020 Seasonal Influenza, PF, 6 M & above, IM , (FluLaval or Fluzone) 06/20/2022,05/18/2021,05/06/2020,2018,06/05/2011,09/10/2001,08/08/2001 TDAP (age 10 and older)(Boostrix) 09/08/2021,08/2010 Varicella Vaccine (Chicken Pox) 03/21/2010,07/02 documented as of this encounter Social History Tobacco Use Types Packs/Day Years Used Date Smoking Tobacco: Never Smokeless Tobacco: Never Comments:No passive smoke ex posures Alcohol Use Standard Drinks/Week Comments Yes 0 (1 standard drink = 0.6 oz pur e alcohol) once per month or less AUDIT-C Answer Date Recorded Frequency of Alcohol Consumption Never 08/03/2019 Average Number of Drinks Not on file 019 Frequency of Binge Drinking Not on file 04/2019 PHQ-2 Answer Date Recorded PHQ Adult Total Score 0 06/25/2022 Hunger Vital Sign Answer Date Recorded Within the past 12 months, y ou worried that your food would run out before you got the money to buy more. Patient refused Within the past 12 months, t he food you bought just didn't last and you didn't have money to get more. Patient refused Sex and Gender Information Value Date Recorded Sex Assigned at Female 03/31/2020 10:23 AM EDT Gender Identity Female 03/31/2020 10:23 AM EDT Sexual Orientation Straight 03/31/2020 10 :23 AM EDT Job Start Date Occupation Industry Not on file Not on file Not on file documented as of this encounter Functional Status Functional Status Response Date of Assess ment Are you deaf or do you have serious difficulty h earing? No 03/18/2021 Are you blind or do you have serious difficulty seeing, even when wearing glasses? No 03/18/2021 Do you have serious difficul ty walking or climbing stairs? (5 years old or older) No 03/18/2021 Do you have difficulty dress ing or bathing? (5 years old or older) No 03/18/2021 Because of a physical, menta l, or emotional condition, do you have difficulty doing errands alone such as visiting a doctor s office or shopping? (15 years old or older) No 03/18/20 21 Cognitive Status Response Date of Assessm ent Because of a physical, menta l, or emotional condition, do you have serious difficulty concentrating, remembering, or making decisions? (5 years old or older) No 03/18/2021 documented as of this encounter Miscellaneous Notes * Telephone Encounter - Cathi Mabry MD - 08/16/2023 2:46 PM ESTSigned Prescriptions: Disp Refills Reyvow 50 MG Oral Tablet (Lasmiditan Succi*15 Tab*0 Si at onset of migraine. Max 1 dose in 24 hours. Authorizing Provider: CATHI MABRY * Telephone Encounter - Tita Dempsey LPN - 08/16/2023 8:38 AM ESTPending Prescriptions: Disp Refills Reyvow 50 MG Oral Tablet (Lasmiditan Succi*15 Tab*0 Si at onset of migraine. Max 1 dose in 24 hours. * Telephone Encounter - Pablo Torres, tractor engine mechanic - 08/15/2023 1:40 PM EST Did you pend patient's preferred pharmacy and medication before forwarding?yes Pharmacy: [facility] Pending Prescriptions: Disp Refills Reyvow 50 MG Oral Tablet (Lasmiditan Succ*15 Tab*0 Si at onset of migraine. Max 1 dose in 24 hours. Last Visit: Visit date not found (in office), Visit date not found (telemedicine) Next Visit: 09/19/2023 If no future appointments scheduled, and last appointment is greater than a year ago, please schedule patient for a follow-up appointment Last date the medication was ordered: 08/16/2022 Is this request for a controlled substance?No Urine Drug Screen:No results found. However, due to the size of the patient record, not all encounters were searched. Please check Results Review for a complete set of results. Patient Phone Numbers Labs: Lab Results Component Value Date/Time CREAT 0.8 04/19/2023 08:56 AM CREAT 0.71 05/27/2022 12:00 AM CREAT 0.7 05/23/2020 06:20 AM POTASSIUM 4.6 04/19/2023 08:56 AM POTASSIUM 4.2 05/27/2022 12:00 AM POTASSIUM 3.9 05/23/2020 06:20 AM TSH 1.03 05/22/2023 08:23 AM TSH 0.39 06/27/2020 08:43 AM LDLCALC 148 (H) 03/29/2021 08:45 AM LDLCALC 101 03/01/2020 09:47 AM ALT 101 (H) 04/19/2023 08:56 AM ALT 22 11/25/2019 07:46 PM ALT 20 10/20/2019 06:42 PM HGBA1C 4.9 02/21/2023 07:59 AM HGBA1C 5.2 03/01/2020 09:47 AM documented in this encounter Plan of Treatment Upcoming Encounters Date Type Department Care Team (Late st Contact Info) Description 08/29/2023 1:00 PM EST Telemedicine Psychology, [facility] [address] [facility] [place] [address] Donna Lazaro PsyD [address] [facility] [place] [phone] 09/03/2023 10:00 AM EST Telemedicine Nutrition, [place] [address] [place] [address] Alma Rosa Staley, RDN [address] [facility] [place] [phone] 09/06/2023 10:00 AM EST Office Visit Family Practice [facility] [address] [place] [phone] Julia Mccain PA-C [address] [place] [phone] 09/19/2023 8:40 AM EST Office Visit Neurology [employer] [address] [place] [id number] Cathi Wheeler PA-C [address] [place] [phone] Scheduled Procedures Name Priority Associated Diagnoses Date/Ti me COLONOSCOPY FLEXIBLE PROXIMAL DIAGNOSTIC Recall Left sided abdominal pain Thrombosis of mesenteric vein (HCC) Portal vein thrombosis ESOPHAGOGASTRODUODENOSCOPY ( EGD), FLEXIBLE, TRANSORAL, DIAGNOSTIC Recall Left sided abdominal pain Thrombosis of mesenteric vein (HCC) Portal vein thrombosis Health Maintenance Due Date Last Done Comments MENINGOCOCCAL (MENACTRA/MENV EO) (1 - Risk start 2-23 months series) 05/22/2016 03/27/2016, 1, 02/13/2000 Hepatitis C Screening 2016 Meningitis B Vaccine (Bexsero/Trumemba) (2 of 4 - Increased Risk Bexsero 2-dose series) 10/06/2021 09/08/2021 Pap Smear 02/07/2023 02/08/2020 COVID-19 Vaccine (3 - 2022-2 4 season) 2023 12/30/2020, 12/07/2020 Influenza Vaccine (FLU shot) (#1) 2023 06/20/2022, 05/18/2021, 05/06/2020, Additional history exists Gonorrhea / Chlamydia Screen 06/20/2023, 06/27/2020, 02/08/2020, Additional history exists Depression Screening 06/25/2023 06/25/2022 TSH 05/22/2024 05/22/2023, 0812/2022, 03/19/2023, Additional history exists DTaP,Tdap,and Td Vaccines (5 - Td or Tdap) 09/08/2031 09/08/2021, 03/26/2011, 03/08/2003, Additional history exists Pneumococcal Vaccine: Pediat rics (0 to 5 Years) and At-Risk Patients (6 to 64 Years) (3 - PPSV23 or PCV20) 11/27/2063 09/14/2019, 06/05/2011, 11/03/2007, Additional history exists Hepatitis B Completed 12/26/1999, 03/1999, 1998 GARDASIL-HPV IMMUNIZATION SERIES Completed 05/26/2020, 01/07/2020, 10/20/2019 documented as of this encounter Medical Devices Implanted Type Area Hand Ironer Device Identifier Shelf Expiration Date Model / Serial / Lot Plate Ti Lo Pro Str 2h [id number] - [id number] Implanted:Qty: 4 on 12/28/2019 by Linden Townsend [place] [facility] [place] Head [employer] [id number] / / Description:no expiration da te - reprocessed set documented as of this encounter Advance Directives Latest Code Status on File Code Status Date Activated Date Inactivated Comments Full Code 03/18/2021 8:22 PM 03/21/2021 10:22 PM This order reflects the patients wishes and were consensually agreed upon. Question Answer Comments Discussion of Advance Directives occurred with: Not Discussed Does the patient have a Living Will? No Does the patient have Health Care Power of Splitting Machine Operator? No Code Status History Code Status Date Activated Date Inactivated Comments Full Code 03/10/2021 11:40 PM 03/12/2021 11:06 PM Thi s order reflects the patients wishes and were consensually agreed upon. Full Code 03/01/2021 7:41 PM 03/05/2021 7:35 PM This o rder reflects the patients wishes and were consensually agreed upon. Question Answer Comments Discussion of Advance Directives occurred with: Patient Full Code 12/28/2019 9:42 AM 12/30/2019 6:38 PM This or janice reflects the patients wishes and were consensually agreed upon. Question Answer Comments Discussion of Advance Directives occurred with: Patient Does the patient have a Living Will? No Does the patient have Health Care Power of Splitting Machine Operator? No Full Code 12/27/2019 6:35 PM 12/28/2019 9:42 AM This or janice reflects the patients wishes and were consensually agreed upon. Question Answer Comments Discussion of Advance Directives occurred with: Not Discussed Healthcare Agents on File Name Relationship [facility] Communication Mike Doherty Spouse Emergency Contact Care Teams Disaster Recovery Coordinator Relationship Specialty Start Date End Date Krysta November ZAYRA Buchanan [address] Do[address] [place] [address] PCP - General Physician Medical Review Specialist 03/23/22 documented as of this encounter
--- OUTSIDE RECORDS SUMMARY | 2023-08-31 10:18 | External Medical Summary | Summary of Care ---
Author Name Unknown Organization [facility] Address [address] [place] [address] Phone [phone] Care Team Providers Care Field Nurse Name Role Phone CourtneyKinsey peralta Dewayne IVERSON Primary Care Provider [phone] Reason for Visit * Reason Comments NEW PATIENT * - Pending Review Specialty Diagnoses / Procedures Referred By Jil t Referred To Contact Referral ID Status Reason Start Date Expiration Date V isits Requested Visits Authorized [id number] Pending Review 03/14/2023 03/12/2024 [id number] Encounter Details Date Type Department Care Team (Late st Contact Info) Description 08/29/2023 1:00 PM [facility] Telemedicine Psychology, [facility] [address] [place] [address] Donna Lazaro, Alok [address] [place] [address] Major depressive disorder, recurrent severe without psychotic features (HCC)*; History of trauma Allergies Active Allergy Reactions Criticality Noted Date Comments Vancomycin Itching 08/03/2019 Redness of skin documented as of this encounter (statuses as of 08/29/2023) Medications Medication Sig Dispensed Refills Start Date End Date Status Albuterol Sulfate HFA 108 (90 Base) MCG/ACT [...] 0 Active Famotidine 20 MG Oral Tablet (Pepcid)Indications:D yspepsia Take 1 Tablet by mouth in the [...] Omeprazole 40 MG Oral Capsule Delayed Release (PriLOSEC)Indications :Dyspepsia TAKE ONE CAPSULE BY MOUTH EVERY MORNING 1 HOUR BEFORE THE FIRST MEAL OF THE DAY 90 Capsule 0 08/13/2023 Active Propranolol HCl 40 MG Oral Tablet (Inderal)Indications: Headache, unspecified headache type TAKE ONE TABLET BY MOUTH TWICE A DAY IN THE MORNING AND BEFORE BEDTIME 60 Tablet 4 08/13/2023 Active Norethindrone 0.35 MG Oral TabletIndications:PMD D (premenstrual dysphoric disorder) Take 1 Tablet by mouth in the morning. 84 Tablet 0 08/13/2023 Active Emgality 120 MG/ML Subcutaneous Solution Auto-injector (Galcanezumab-[facility]) Inject 1 mL under the skin Every Month. 1 mL 2 08/13/2023 Active Reyvow 50 MG Oral Tablet (Lasmiditan Succinate) 1 at onset of migraine. Max 1 dose in 24 hours. 15 Tablet 0 08/16/2023 Active Dicyclomine HCl 10 MG Oral Capsule (Bentyl)Indications:A bdominal pain, generalized Take 1 Capsule by mouth 4 times a day as needed for Pain, Mild, Pain, Moderate or Cramping. For abdominal pain 360 Capsule 1 08/16/2023 Active documented as of this encounter (statuses as of 08/29/2023) Active Problems Problem Noted Date Diagnosed Date [...] of pre-eclampsia; During , please notify your chair finisher if you experience headache, changes in vision, [...] as of this encounter (statuses as of 08/29/2023) Resolved Problems Problem Noted Date Diagnosed Date Resolved Date Food insecurity 11/05/2022 03/07/2023 Overview: Per [facility] Protocol Opioid dependence in remission 05/09/2021 [...] and proper diet. Consider referral to a legal executive prior to conception for maternal conditions that [...] as of this encounter (statuses as of 08/29/2023) Immunizations Name Administration Dates Next Due COVID-19 mRNA, LNP-s, No Pre serve, 2-Dose Series (Pfizer) 12/30/2020,12/07/2020 DTaP Dipth/Tet/Acell Pertussis (Infanrix), Peds 03/08/2003,03/19/2000 HIB PRP-T, 4 dose (ActHib) 12/30/2019(De hien: Contraindication - to be given prior to discharge per dr henderson) HPV Vaccine, 9-Valent 05/26/2020,01/07/2020,09/27 Hep A - Hepatitis A (ped/ado le, 1-18 Yrs) 06/24/2012,03/26/2011 Hepatitis B, 0-19 yrs 12/26/1999,01/31/1999,1998 IPV - Polio Virus Vaccine (Inact) 2002,06/13/1999,04/25/1999,1998 [...] No 03/18/2021 documented as of this encounter Progress Notes * Donna Lazaro, PsyD - 08/29/2023 1:00 PM EST Patient location: HOME. I was not in a hospital or clinic location. After connecting through [employer], patient was verified with two unique identifiers. Patient (or authorized legal factory representative) was then informed that this was a Telemedicine visit and being conducted confidentially over secure lines. Methods to assure confidentiality were taken. Patient acknowledged consent and understanding of privacy and security of the Telemedicine visit. The patient agreed to participate. My office door was closed. No one else was in the room with me. I informed the patient that I have reviewed their record in [facility] and presented the opportunity for them to ask any questions regarding the visit today. The patient agreed to participate. Provider reviewed elements of Outpatient Services Description including limits of confidentiality, how to contact the department, risks and benefits of treatment and consent for treatment. Start Time: 1:02pm; 1:22pm Stop Time: 1:48pm Total direct [id number] time: 3 minutes; 26 minutes Confirmed Pt's location at home in [place], [place]. Televideo platform was delayed making efficient conversation and assessment difficult. At approximately 1:05pm, Delfina and manny agreed to continue via telephone. Undersigned confirmed Delfina's phone number as primary listed in EMR. Undersigned called immediately. Delfina did not answer. Voicemail was not available. Undersigned sent message via CloudHashing requesting a call back (see also CloudHashing message from today's date). Pt called around 1:22pm, and appointment was resumed from there. BEHAVIORAL MEDICINE PROGRESS NOTE Psychology, [address] [facility] [address] 08/29/2023 1:00 PM TYPE OF VISIT: Individual DIAGNOSIS: MDD, recurrent, severe without psychotic features; Hx of Trauma R/O Bipolar Disorder; ARELY; PTSD REASON FOR FOLLOW-UP: Individual therapy Session #: 1 SESSION FOCUS: Transfer; Safety Planning; Treatment Planning NOTES: [facility] EMR indicates last appointment was on 05/07/2023. Subsequent appointments were scheduled but not attended. Rajeshigned reviewed notes from treatment with [facility] and EMR since that treatment. EMR indicates recent hospitalization via [facility] due to SI. Delfina reported that she was discharged today from [facility]. She reported that she voluntarily went to [facility] due to SI and thoughts of a method, and she wanted to seek help before she experienced any SI intent. Delfina reported that her experience was positive. She stated thatjanelle has a current psychiatry provider at [facility]. She reported that her current mental health medications consist of [place], Zyprexa, Haldol, and Ativan, as needed. Delfina reported an extensive hx of OP therapy/counseling, psychiatric hospitalizations, and psychotropic medications. She reported a hx of 4 suicide attempts, and she denied any within the last year. Delfina denied any alcohol or substance use currently. Delfina reported that currently she experiences depression symptoms, anxiety symptoms, and is impacted by her history of traumatic experience. She reported that her depression symptoms currently consist of sadness, lethargy, decreased motivation, anhedonia, and her anxiety symptoms consist of worry and tension. Delfina reported that she currently liveswith her of 3 years, her wfhkrt-kt-xvv, and her rgczfz-is-nqd and all are supports for her.She reported that she works part-time at [employer]. The remainder of the appointment focused on creating a [facility] Crisis Plan and Treatment Plan (see in plan of care documentation for both).Delfina reported that her main goals were to manage her depression symptoms and developed a treatment plan goal surrounding that. She reported that current coping strategies she utilizes are: word searches, meditating, deep breathing, distraction, and social support. Undersigned provided information about frequency of appointments, duration of appointments, and the evidence- based, time-limited, goal-focused nature of OP Psychology at [facility]. Delfina was receptive and determined the structurewould be a good fit. PROGRESS TOWARDS GOALS: -Safety planning -Treatment planning and goal setting Goal: Improved self-management of depression and anxiety symptoms. Objective Measures: [place] Suicide Severity Rating Scale Results 08/29/2023 13:30 [place] SUICIDE SEVERITY RATING SCALE (C-SSRS) Have you wished you were or wished you could go to sleep and not wake up? (In the Past Month or Since Last Visit) No Have you had any actual thoughts of killing yourself? (In the Past Month or Since Last Visit) Yes Have you been thinking about how you might do this? (In the Past Month or Since Last Visit) Yes Have you had thoughts and had some intention of acting on them? (In the Past Month or Since Last Visit) No Have you started to work out or worked out the details of how to kill yourself? Do you intend to carry out this plan? (In the Past Month or Since Last Visit) No Have you ever done anything, started to do anything, or prepared to do anything to end your life? (Lifetime) Yes Was this within the past 3 months? No Level of Risk Moderate Protective Factors Social Support/Family;Supervision and monitoring available;Identifies reasons for living;Future Plans;Cares about job/school;Hopeful attitude and or beliefs;Willing to participate in less restrictive means of help;Help-Seeking Behaviors Risk Factors History of Depression;History of Trauma;Anxiety;Family history of suicide attempts/completion INTERVENTION: -Emotional validation, support, reflections to build rapport -Safety planning -Treatment planning and goal setting PATIENT EDUCATION: Verbal & written MENTAL STATUS AND BEHAVIORAL OBSERVATIONS: Appearance: within normal limits Behavior: within normal limits Speech: normal pitch, rate and volume Affect: Congruent with content of conversation Thought Process: within normal limits and goal directed Thought Content: within normal limits Intellectual Function: within normal limits Sensorium: alert and oriented to person, place, time and situation Cognition: grossly intact Insight/Judgment: good Suicide/Homicidal Assessment Validated Screening and Assessment Measures C-SSRS administered. Denied any current or recent HI or NSSIB. Risk Level Impression: -Intermediate risk: Begin individual OP Therapy; address suicide risk; use [facility] Crisis plan and/or crisis resources, as needed. FOLLOW-UP PLAN: Return: approximately 1 weeks Action Plan: 1. Continue Cognitive Behavioral Therapy 2. Continue medication management with Joanne Steele at [facility]. Treatment plan reviewed with the patient. Patient voices understanding and concurs with plan. Donna Lazaro PsyD Division of Psychiatry & Behavioral Medicine [facility] [phone] documented in this encounter Plan of Treatment Upcoming Encounters Date Type Department Care Team (Late st Contact Info) Description 09/03/2023 10:00 AM EST Telemedicine [facility] [place] [address] [place] [address] [place] [address] Alma Rosa Staley RDN [address] [facility] [place] [phone] 09/04/2023 5:00 PM EST Office Visit [facility] [address] [place] [address] [address] Julia Mccain PA-C [address] [place] [address] [address] 09/06/2023 10:00 AM EST Office Visit [facility] [place] [address] [place] [address] [address] [address] Julia Mccain PA-C [address] [place] [address] [address] 09/09/2023 1:00 PM EST Telemedicine Psychology, [facility] [address] [facility] [address] [place], [place] [address] Donna Lazaro PsyD [address] [facility] [address] [place], [place] [address] 09/19/2023 8:40 AM EST Office Visit Neurology [facility] [place] [address] [facility] [place] [address] Cathi Wheeler PA-C [address] [facility] [place] [address] 09/24/2023 10:30 AM EST Telemedicine Psychology, [facility] [address] [facility] [address] [place], [place] [address] Donna Lazaro PsJames [address] [facility] [place] [address] Scheduled Procedures Name Priority Associated Diagnoses Date/Ti me COLONOSCOPY FLEXIBLE PROXIMAL DIAGNOSTIC Recall Left sided abdominal pain Thrombosis of mesenteric vein (HCC) Portal vein thrombosis ESOPHAGOGASTRODUODENOSCOPY ( EGD), FLEXIBLE, TRANSORAL, DIAGNOSTIC Recall Left sided abdominal pain Thrombosis of mesenteric vein (HCC) Portal vein thrombosis Health Maintenance Due Date Last Done Comments MENINGOCOCCAL (MENACTRA/MENV EO) (1 - Risk start 2-23 months series) 05/22/2016 03/27/2016, , 02/13/2000 Hepatitis C Screening 2016 Meningitis B Vaccine (Bexsero/Trumemba) (2 of 4 - Increased Risk Bexsero 2-dose series) 10/06/2021 09/08/2021 Pap Smear 02/07/2023 02/08/2020 COVID-19 Vaccine (3 - 2022-2 4 season) 2023 12/30/2020, 12/07/2020 Influenza Vaccine (FLU shot) (#1) 2023 06/20/2022, 05/18/2021, 05/06/2020, Additional history exists Gonorrhea / Chlamydia Screen 06/20/2023, 06/27/2020, 02/08/2020, Additional history exists Depression Screening 06/25/2023 06/25/2022 TSH 05/22/2024 05/22/2023, 08/12/2022, 03/19/2023, Additional history exists DTaP,Tdap,and Td Vaccines [...] this encounter Medical Devices Implanted Type Area Transitional Care Manager Device Identifier Shelf Expiration Date Model / Serial / Lot Plate Ti Lo Pro Str 2h 421.502 - [id number] Implanted:Qty: 4 on 12/28/2019 by Linden Townsend MD at [facility] Right: Head [employer]ES MAXILLOFACIAL 421.502 / / Description:no expiration da te - reprocessed set documented as of this encounter Visit Diagnoses Diagnosis Major depressive disorder, recurrent severe without psychotic features (HCC)- Primary Major depressive disorder, recurrent episode, severe, without mention of psychotic behavior History of trauma Personal history of other injury documented in this encounter Advance Directives Latest Code Status on File Code Status Date Activated Date Inactivated Comments Full Code 03/18/2021 8:22 PM 03/21/2021 10:22 PM This order reflects the patients wishes and were consensually agreed upon. Question Answer Comments Discussion of Advance Directives occurred with: Not Discussed Does the patient have a Living Will? No Does the patient have Health Care Power of Lumber Planer? No Code Status History Code Status Date [...] the patient have Health Care Power of Lumber Planer? No Full Code 12/27/2019 6:35 PM 12/28/2019 9:42 AM This or janice reflects the patients wishes and were consensually agreed upon. Question Answer Comments Discussion of Advance Directives occurred with: Not Discussed Healthcare Agents on File Name Relationship Healthcare Agent [facility] p Communication Mike Doherty Spouse Emergency Contact Care Teams Field Nurse Relationship Specialty Start Date End Date Courtneynovember ZAYRA Buchanan [address] [facility] [place] [address] PCP - General Physician Hvac Design Engineer 03/23/22 documented as of this encounter
--- OUTSIDE RECORDS SUMMARY | 2023-08-31 10:18 | External Medical Summary | Summary of Care ---
Author Name Unknown Organization [facility] Address [address] [place] [address] Phone [phone] Care Team Providers Care Bias Cutting Machine Operator Vertical Name Role Phone Kinsey Chaparro PA-C Primary Care Provider [phone] Reason for Visit * Reason Onset Date Comments Medication Refill 08/16/2023 Encounter Details Date Type Department Care Team (Late st Contact Info) Description 08/16/2023 Refill [facility] [place] [address] [facility] [place] [address] Kinsey Chaparro PA-C [address] [facility] [place] [address] Abdominal pain, generalized Allergies Active Allergy Reactions Criticality Noted Date [...] Active Emgality 120 MG/ML Subcutaneous Solution Auto-injector (Galcanezumab-gnlm) Inject 1 mL under the skin Every Month. 1 mL 2 08/13/2023 Active Dicyclomine HCl 10 MG Oral Capsule (Bentyl)Indications :Abdominal pain, generalized Take 1 Capsule by mouth 4 times a day as needed for Pain, Mild, Pain, Moderate or Cramping. For abdominal pain 360 Capsule 1 08/16/2023 Active Dicyclomine HCl 10 MG Oral Capsule (Bentyl)Indications :Abdominal pain, generalized Take 1 Capsule by mouth 4 times a day as needed for Pain, Mild, Pain, Moderate or Cramping. For abdominal pain 360 Capsule 1 08/08/2021 3 Discontinue d(Refill) documented as of this encounter (statuses as of 08/16/2023) Active Problems Problem Noted Date Diagnosed Date Right wrist pain 10/27/2021 Eating disorder 10/04/2021 Allergic rhinitis 09/07/2021 Other problems related to social environment 11/ Gastro-esophageal reflux disease without esophag itis 07/17/2021 [...] of pre-eclampsia; During , please notify your body painter if you experience headache, changes in vision, [...] Date Food insecurity 11/05/2022 03/07/2023 Overview: Per [facility] Protocol Opioid dependence in remission 05/09/2021 [...] and proper diet. Consider referral to a wood boatbuilder prior to conception for maternal conditions that [...] (15 years old or older) No 03/18/20 Cognitive Status Response Date of Assessm ent Because of a physical, menta l, or emotional condition, do you have serious difficulty concentrating, remembering, or making decisions? (5 years old or older) No 03/18/2021 documented as of this encounter Miscellaneous Notes * Telephone Encounter - Kb Dhaliwal DO - 08/16/2023 5:30 PM ESTSigned Prescriptions: Disp Refills Dicyclomine HCl 10 MG Oral Capsule (Bentyl)360 Ca*1 Sig: Take 1 Capsule by mouth 4 times a day as needed for Pain, Mild, Pain, Moderate or Cramping. For abdominal pain Authorizing Provider: KB DHALIWAL * Telephone Encounter - Saritha Obrien LPN - 08/16/2023 10:22 AM EST Did you pend patient's preferred pharmacy and medication before forwarding?yes Pharmacy: [facility] [address] Pending Prescriptions: Disp Refills Dicyclomine HCl 10 MG Oral Capsule (Benty*360 Ca*1 Sig: Take 1 Capsule by mouth 4 times a day as needed for Pain, Mild, Pain, Moderate or Cramping. For abdominal pain Last Visit: 03/19/2023 (in office), 08/07/2023 (telemedicine) Next Visit: 09/06/2023 If no future appointments scheduled, and last appointment is greater than a year ago, please schedule patient for a follow-up appointment Last date the medication was ordered: 08/08/21 Is this request for a controlled substance?No [...] Upcoming Encounters Date Type Department Care Team ([facility] st Contact Info) Description 08/29/2023 1:00 PM EST Telemedicine Psychology, [address] [place] [address] Donna Lazaro, PsyD [address] [facility] [address] [place], [place] [address] 09/03/2023 10:00 AM EST Telemedicine Nutrition, [place] [address] [place] [address] Alma Rosa Staley, RDN [address] [facility] [place] [phone] 09/06/2023 10:00 AM EST Office Visit Family [facility] [employer] [address] [facility] [place] [address] Julia Mccain PA-C [address] [facility] [place] [address] 09/19/2023 8:40 AM EST Office Visit Neurology [employer] [address] [facility] [place] [address] Cathi Wheeler PA-C [address] [facility] [place] [address] Scheduled Procedures Name Priority Associated Diagnoses Date/Ti [...] Depression Screening 06/25/2023 06/25/2022 TSH 05/22/2024 05/22/2023, 03/27, 03/19/2023, Additional history exists DTaP,Tdap,and Td Vaccines [...] this encounter Medical Devices Implanted Type Area Dot Compliance Coordinator Device Identifier Shelf Expiration Date Model / Serial / Lot Plate Ti Lo Pro Str 421.502 - [id number] Implanted:Qty: 4 on 12/28/2019 by Linden Townsend MD at [facility] Right: Head [employer] MAXILLOF[employer] [id number] / / Description:no expiration da te - reprocessed set documented as of this encounter Visit Diagnoses Diagnosis Abdominal pain, generalized documented in this encounter Advance Directives Latest [...] the patient have Health Care Power of Ict Security Specialist? No Code Status History Code Status Date [...] the patient have Health Care Power of Ict Security Specialist? No Full Code 12/27/2019 6:35 PM 12/28/2019 9:42 AM This or janice reflects the patients wishes and were consensually agreed upon. Question Answer Comments Discussion of Advance Directives occurred with: Not Discussed Healthcare Agents on File Name Relationship Healthcare Agent [facility] Communication Mike Doherty Spouse Emergency Contact Care Teams Bias Cutting Machine Operator Vertical Relationship Specialty Start Date End Date Courtneynovember ZAYRA [place] [address] [place] [address] PCP - General Physician Outside Salesman 03/23/22 documented as of this encounter
--- OUTSIDE RECORDS SUMMARY | 2023-08-31 10:18 | External Medical Summary | Summary of Care ---
Author Name Unknown Organization [facility] Address [address] [place] [address] Phone [phone] Care Team Providers Care Optical Instrument Inspector Name Role Phone Kinsey Chaparro PA-C Primary Care Provider [phone] Reason for Visit * Reason Comments Follow Up Routine follow-up Encounter Details Date Type Department Care Team (Latest Contact Info) Description 08/07/2023 1:00 PM [facility] [place] [address] [facility] [place] [address] Julia Mccain PA-C [address] [facility] [place] [address] Intermittent asthma with reliever use up to twice per week without complication*; Gastro-esophageal reflux disease without esophagitis; Thrombosis of mesenteric vein (HCC); Portal vein thrombosis; Migraine without aura and without status migrainosus, not intractable; Hereditary spherocytosis (HCC); Schizoaffective disorder, depressive type (HCC); Borderline personality disorder (HCC); Eating disorder, unspecified type; Major depression with psychotic features (HCC); PTSD (post-traumatic stress disorder); Hypothyroidism, unspecified type; Medication management Allergies Active Allergy Reactions Criticality Noted Date [...] HOURS NEEDED FOR DYSPNEA 18 g 4 2 Active Doxepin HCl 25 MG Oral Capsule (SINEquan) Take 1 Capsule by mouth at bedtime. 0 3 Active LORazepam 1 MG Oral Tablet (Ativan) Take 1 Tablet by mouth every 8 hours as needed. 0 Active Dicyclomine HCl 10 MG Oral Capsule (Bentyl)Indication s:Abdominal pain, generalized Take 1 Capsule by mouth 4 times a day as needed for Pain, Mild, Pain, Moderate or Cramping. For abdominal pain 360 Capsule 1 1 08/16/20 23 Discontinued(Ref ill) Reyvow 50 MG Oral Tablet (Lasmiditan Succinate) 1 at onset of migraine. Max 1 dose in 24 hours. 15 Tablet 0 2 08/15/20 23 Discontinued(Ref ill) [place] Carbonate 600 MG Oral Capsule Take 1 Capsule by mouth in the morning and 1 Capsule in the evening. Taking 150 mg for 7 days. 0 08/07/20 23 Discontinued Ondansetron 4 MG Oral Tablet Disintegrating (Zofran) DISSOLVE ONE TABLET ON TONGUE EVERY 8 HOURS NEEDED FOR NAUSEA 40 Tablet 0 3 08/12/20 23 Discontinued(Ref ill) Famotidine 20 MG Oral Tablet (Pepcid)Indication s:Dyspepsia TAKE ONE TABLET BY MOUTH TWICE A DAY IN THE MORNING AND BEFORE BEDTIME 180 Tablet 1 3 08/12/20 23 Discontinued(Ref ill) Caplyta 42 MG Oral Capsule Take 1 Capsule by mouth in the morning. 0 3 08/07/20 23 Discontinued buPROPion HCl ER (XL) 150 MG Oral Tablet Extended Release 24 Hour (Wellbutrin XL) 0 3 08/07/20 23 Discontinued cloNIDine HCl 0.1 MG Oral Tablet (Catapres) 0 3 08/07/20 23 Discontinued Norethindrone 0.35 MG Oral TabletIndications: PMDD (premenstrual dysphoric disorder) Take 1 Tablet by mouth in the morning. 84 Tablet 2 3 08/12/20 23 Discontinued(Ref ill) OLANZapine 10 MG Oral Tablet (zyPREXA) Take 1 Tablet by mouth as needed. 0 3 08/07/20 23 Discontinued Omeprazole 40 MG Oral Capsule Delayed Release (PriLOSEC)Indicati ons:Dyspepsia TAKE ONE CAPSULE BY MOUTH EVERY MORNING 1 HOUR BEFORE THE FIRST MEAL OF THE DAY 90 Capsule 1 3 08/12/20 23 Discontinued(Ref ill) Apixaban 5 MG Oral Tablet (Eliquis) Take 1 Tablet by mouth in the morning and 1 Tablet before bedtime. 60 Tablet 5 3 08/12/20 23 Discontinued(Ref ill) Propranolol HCl 40 MG Oral Tablet (Inderal)Indicatio ns:Headache, unspecified headache type TAKE ONE TABLET BY MOUTH TWICE A DAY IN THE MORNING AND BEFORE BEDTIME 60 Tablet 5 3 08/12/20 23 Discontinued(Ref ill) Levothyroxine Sodium 50 MCG Oral Tablet (Levoxyl) Take 1 Tablet by mouth in the morning. (at least 30 min prior to breakfast or other meds). 30 Tablet 7 3 08/12/20 23 Discontinued(Ref ill) Emgality 120 MG/ML Subcutaneous Solution Auto-injector (Galcanezumab-[facility] ) Inject 1 mL under the skin Every Month. 1 mL 3 3 08/12/20 23 Discontinued(Ref ill) documented as of this encounter (statuses as [...] of pre-eclampsia; During , please notify your data compiler if you experience headache, changes in vision, [...] Date Food insecurity 11/05/2022 03/07/2023 Overview: Per [facility] Protocol Opioid dependence in remission 05/09/2021 [...] and proper diet. Consider referral to a linux system engineer prior to conception for maternal conditions that [...] (Chicken Pox) 07/02/2000, 03/21/2010 Seasonal allergies 08/03/2019 Last Assessment & Plan: Recommendations: Use only [...] 03/08/2003,03/19/2000 HIB PRP-T, 4 dose (ActHib) 12/30/2019(De ferred: Contraindication - to be given prior to discharge per dr henderson) HPV Vaccine, 9-Valent 05/26/2020,01/07/2020,09/27 Hep A - Hepatitis A (ped/ado le, 1-18 Yrs) 06/24/2012,03/26/2011 Hepatitis B, 0-19 yrs 12/26/1999,01/31/1999,0410/1998 IPV - Polio Virus Vaccine (Inact) 2002,06/13/1999,04/25/1999,1998 [...] as of this encounter Progress Notes * Julia Mccain PA-C - 08/07/2023 1:18 PM EST Patient location: HOME. I was in a hospital or clinic location. After connecting through [employer],patient was verified with two unique identifiers. Patient (or authorized legal delivery representative) was then informed that this was a Telemedicine visit and being conducted confidentially over secure lines. Methods to assure confidentiality were taken. Patient acknowledged consent and understanding of pr ivacy and security of the Telemedicine visit. The patient agreed to participate. Justine Doherty is a 22 year old female that presents for Follow Up (Routine follow-up) 22 y/o female presents for routine follow-up. She continues to follow with psych for schizoaffective disorder. Only taking lorazepam and Doxepin currently for mood. No suicidal ideation, homicidal ideation, self harm or thoughts of self harm. Hx of eating disorder, doing better with meals, has been seen by Dr. Aparicio for assistance with management and clinical practice consultant. On Eliquis for chronic anticoagulation. Follows with neurology for migraines, stable. Objective There were no vitals taken for this visit. There is no height or weight on file to calculate BMI. BP Readings from Last 3 Encounters: 04/27/23 116/70 03/27/23 118/72 03/22/23 118/62 Wt Readings from Last 3 Encounters: 03/27/23 84.8 kg (187 lb) 03/22/23 84.2 kg (185 lb 9.6 oz) 03/19/23 84.7 kg (186 lb 12.8 oz) Physical Exam Constitutional: General: She is not in acute distress. Pulmonary: Effort: Pulmonary effort is normal. Neurological: Mental Status: She is oriented to person, place, and time. Psychiatric: Mood and Affect: Mood normal. Behavior: Behavior normal. Assessment and plan 1. Intermittent asthma with reliever use up to twice per week without complication -stable 2. Gastro-esophageal reflux disease without esophagitis -stable on current meds- bentyl, famotidine 3. Thrombosis of mesenteric vein (HCC) -continue anticiagulation 4. Portal vein thrombosis -as above 5. Migraine without aura and without status migrainosus, not intractable -continue follow-up with neuro 6. Hereditary spherocytosis (HCC) 7. Schizoaffective disorder, depressive type (HCC) -continue follow-up with psych 8. Borderline personality disorder (HCC) -as above 9. Eating disorder, unspecified type -as above 10. Major depression with psychotic features (HCC) -as above 11. PTSD (post-traumatic stress disorder) -as above 12. Hypothyroidism, unspecified type -need to schedule in person appt for routine visit and labs Follow up Follow-up: Return in about 4 weeks (around 09/04/2023). | Check-out note: In office for pap smear and lab review Total time today including reviewing chart before the visit, pertinent labs, imaging reports, face to face time, and documentation time was 20 minutes. The above was discussed and understanding was expressed. Julia Mccain PA-C documented in this encounter Plan of Treatment Upcoming Encounters Date Type Department Care Team (Late st Contact Info) Description 08/29/2023 1:00 PM EST Telemedicine Psychology, [facility] [address] [facility] [place] [address] Donna Lazaro, Geovany [address] [facility] [place] [address] 09/03/2023 10:00 AM EST Telemedicine Jeremy Redding [address] [place] [address] Alma Rosa Staley RDN [address] [facility] [place] [phone] 09/06/2023 10:00 AM EST Office Visit Family Practice [facility] [address] [facility] [address] [place], [place] [address] Julia Mccain PA-C [address] [facility] [place], [place] [address] 09/19/2023 8:40 AM EST Office Visit Neurology [facility] [place] [address] [facility] [place], [place] [address] Cathi Wheeler PA-C [address] [facility] [place], [place] [address] Scheduled Orders Name Type Priority Associated Diagnoses Orde r Schedule TSH WITH FREE T4 IF INDICATED Lab Routine Hypothyroidism, unspecified type Expected: 08/16/2023 (Approximate), Expires: 08/15/2024 VITAMIN B12 Lab Routine Medication management Expected: 08/16/2023 (Approximate), Expires: 08/15/2024 MAGNESIUM Lab Routine Medication management Expected: 08/16/2023 (Approximate), Expires: 08/15/2024 CBC Lab Routine Medication management Expected: 08/16/2023 (Approximate), Expires: 08/15/2024 COMPREHENSIVE METABOLIC PANEL Lab Routine Medication management Expected: 08/16/2023 (Approximate), Expires: 08/15/2024 Scheduled Procedures Name Priority Associated Diagnoses Date/Ti [...] this encounter Medical Devices Implanted Type Area Matrix Drier Tender Device Identifier Shelf Expiration Date Model / Serial / Lot Plate Ti Lo Pro Str 2h [id number] - [id number] Implanted:Qty: 4 on 12/28/2019 by Linden Townsend MD at [place] [facility] Right: Head [employer] [id number] / / Description:no expiration da te - reprocessed set documented as of this encounter Visit Diagnoses Diagnosis Intermittent asthma with reliever use up to twice per week without complication- Primary Gastro-esophageal reflux disease without esophagitis Esophageal reflux Thrombosis of mesenteric vein (HCC) Acute vascular insufficiency of intestine Portal vein thrombosis Migraine without aura and without status migrainosus, not intractable Migraine without aura, without mention of intractable migraine without mention of status migrainosus Hereditary spherocytosis (HCC) Hereditary spherocytosis Schizoaffective disorder, depressive type (HCC) Schizoaffective disorder, unspecified condition Borderline personality disorder (HCC) Borderline personality disorder Eating disorder, unspecified type Major depression with psychotic features (HCC) PTSD (post-traumatic stress disorder) Posttraumatic stress disorder Hypothyroidism, unspecified type Medication management Encounter for long-term (current) use of other medications documented in this encounter Advance Directives Latest [...] the patient have Health Care Power of Intelligence Group Supervisor? No Code Status History Code Status Date [...] the patient have Health Care Power of Intelligence Group Supervisor? No Full Code 12/27/2019 6:35 PM 12/28/2019 9:42 AM This or janice reflects the patients wishes and were consensually agreed upon. Question Answer Comments Discussion of Advance Directives occurred with: Not Discussed Healthcare Agents on File Name Relationship Healthcare Agent [facility] p Communication Mike Doherty Spouse Emergency Contact Care Teams Optical Instrument Inspector Relationship Specialty Start Date End Date Krysta November ZAYRA Buchanan [address] [place] [address] [facility] [place] [id number] PCP - General Physician Corporate Real Estate Manager 03/23/22 documented as of this encounter
--- NOTE | 2023-08-31 15:07 | Hospitalist Progress Note ---
Date of Service August 31, 2023 Assessment & Plan (1) Suicidal ideation: Plan: 22-year-old female with past med significant for hyperprolactinemia, asthma, allergic rhinitis, history of thrombosis of mesenteric vein, portal vein thrombosis, moyamoya disease, GERD, amenorrhea, migraine, thrombocytosis after splenectomy, history of essential hemorrhagic thrombocythemia, hereditary spherocytosis, severe depression with psychotic features,schizo affective disor janice, PTSD, borderline personal disorder, eating disorder with history of social ideation comes again with thoughts of hurting herself. She still had thoughts to hurt herself. Last 2 days she is having some runny nose, sore throat and cough. Denies any fevers. Has some headache. No body aches. No nausea. No chest pain or shortness of breath. No abdominal pain. Somewhat constipated. Normal bladder movements. Resting comfortably. Suicidal ideation One-on-one observation Suicidal precautions Psych consult Elevated liver enzymes AST/ALT/ALP54/183/203 Patient denies any abdominal pain can be drug induced secondary to lithium, naltrexone or doxepin Obtain right upper quadrant ultrasound Follow-up as outpatient with primary care doctor with repeat liver function test. Discussed with patient regarding this. Patient agreeable to the plan. COVID COVID precautions Supportive care History of portal vein thrombosis On [facility] Depression schizo affective disorder PTSD Borderline personality disorder Management as per psychiatry DVT prophylaxis On [facility] Disposition Medical floor Full code Please note the above document was generated using voice recognition software. It may contain grammatical, syntax or spelling errors. Any formal questions or concerns about the content, text or information contained within the body of this dictation should be directly addressed to the provider for clarification Admission and Anticipated Discharge Date Admission Date: August 30, 2023 Subjective Patient seen and examined at bedside. Comfortable; not in distress. Denies fever, chills, chest pain, shortness of breath, abdominal pain or urinary symptoms. No significant overnight events Review of Systems Review of Systems: All systems reviewed & are unremarkable except as noted in Subjective Physical Exam Physical Exam: General- Not in distress Head- atraumatic Eyes- EOMI ENT- oropharynx clear Neck- supple, no JVD. Lungs- clear to auscultation no wheezing or crackles. Heart- regular rhythm; no murmur, no gallop. Abdomen- normal bowel sounds, soft, nontender, no distension. Extremities- no pretibial edema, no erythema. Neuro- alert, oriented x 3; EOMI; no facial palsy; no dysarthria; moves extremities Results & Data Results & Data Vital Signs (Past 12 Hours) Vital Signs Temp Pulse Resp BP Pulse Ox O2 Del Method 08/31/23 11:18 36.6 C 96 H 20 96/64 L 96 Room Air 08/31/23 07:45 78 18 108/74 98 Room Air
[2023-08-31] MEDS ORDERED: IBUPROFEN 600 MG TAB PO STA (15:46)
[2023-08-31] MEDS ORDERED: IBUPROFEN 600 MG TAB PO ONE (18:31)
--- NOTE | 2023-08-31 18:43 | Ultrasound Report ---
US liver CLINICAL HISTORY: Elevated liver enzymes. COMPARISON STUDY: CT of the abdomen and pelvis, Doppler ultrasound of the hepatic vessels and and MR CP May 11, 2021. FINDINGS: Liver morphology is normal. No hepatic lesions are identified. There is no biliary ductal d ilatation. The common bile duct measures 4 mm in caliber. Pancreas is partially obscured. The gallbla dder is normal. There are no gallstones. There is no gallbladder wall thickening. There is no right h ydronephrosis. Portal vein thrombosis with cavernous transformation is not well depicted by ultrasoun d. This was shown on CT and MRI May 11, 2021. IMPRESSION: 1. No gallstones or biliary ductal dilatation. 2. Portal vein thrombosis with cavernous transformation shown on CT and MRI May 11, 2021 is not well visualized by sonography. ACT 112: Negative or not required by law. Electronically signed by: Fitz Javier M.D. 08/31/2023 6:41 PM
--- NOTE | 2023-08-31 19:15 | Psychiatric Consultation ---
Date of Consultation August 31, 2023 Impression / Recommendations Impression 22 y/o F with history of bipolar disorder vs. major depressive disorder, borderline personality disorder, PTSD and numerous psychiatric hospitalizations who presented to the ED 3 days after discharge from an acute psychiatric admission reporting suicidal ruminations with a provisional plan of overdosing on medication but no intent of acting on those thoughts. She has been hospitalized for more days than not over the past year. A significant factor in her presentation to the ED last night seems to be her family's belief that she was "discharged too soon" from the most recent hospitalization. Pt has had access to extensive inpatient and outpatient resources without a sense that much has helped her. She's currently on low-dose doxepin that seems to have been started recently and fairly low-dose lithium. These are, hypothetically, appropriate medications so will continue and titrate them based on tolerability and blood levels. The naltrexone is likely intended for self- injurious behavior. Overall I spent a total of 63 minutes on the floor for this admission including review of chart records, review of test results, reconciling and ordering medication, risk assessment, discussion with the psychiatric liaison nurse, and documentation in the electronic health record. (1) Borderline personality disorder: (2) PTSD (post-traumatic stress disorder): (3) Bipolar disorder: Active/Remission status: currently active Current bipolar episode type: depressed Psychotic features: with psychotic features Plan * continue doxepin 25 mg daily - prior to admission medication * continue haloperidol 5 mg daily - prior to admission medication * continue lithium 300 mg TID - prior to admission medication * lithium level in AM * continue naltrexone 25 mg daily - prior to admission medication * continue olanzapine 20 mg QHS - prior to admission medication Psych History Identifying Data MAKENZIE HILLIARD is a 22-year-old F with a history of multiple hospitalizations, admitted on 08/30/2023 for suicidal ideation. Consult is by the hospitalist service for "suicideal ideation". Pt presented to the ED with psychiatric complaints warranting psychiatric admission but due to positive SARS-CoV-2 screen could not be admitted to the psychiatric unit. Chief Complaint "I needed longer". History of Present Illness As part of a thorough review of the available medical records, I have read and and incorporated into my assessment the following note by the ED physician: "This is a 22-year-old with history of SI, bipolar, MDD, PTSD presenting for SI. Patient states she was recently here with suicidal thoughts, was at [facility] and discharge. States that she was doing well but then had recurring suicidal thoughts. She notes that she was thinking about overdosing on her pills. She does not feel safe to go home as she think she would not act on these. Otherwise she states she hears voices, male voices, telling her to hurt herself. She has no triggering events that led to this suicidal thoughts." the following note by the hospitalist: "22-year-old female with past med history significant for hyperprolactinemia, asthma, allergic rhinitis, history of thrombosis of mesenteric vein, portal vein thrombosis, moyamoya disease, GERD, amenorrhea, migraine, thrombocytosis after splenectomy, history of essential hemorrhagic thrombocythemia, hereditary spherocytosis, severe depression with psychotic features,schizo affective disorder, PTSD, borderline personal disorder, eating disorder with history of social ideation comes again with thoughts of hurting herself. She still had thoughts to hurt herself. Last 2 days she is having some runny nose, sore throat and cough. Denies any fevers. Has some headache. No body aches. No nausea. No chest pain or shortness of breath. No abdominal pain. Somewhat constipated. Normal bladder movements. Resting comfortably." the following notes by the ED psychiatric employment case manager: "Patient tested positive for COVID. Met with patient to advise of this - she states she was just discharged from [facility] two days ago and felt symptoms. She was provided with allergy medication at that time. Makenzie gives her permission to share her COVID status with [facility]. Spoke with Makenzie about safety-planning, and she remained adamant that she is not safe at home and not safe to be discharged. I questioned Makenzie that she had communicated that she had no intentions on acting on a plan and she states that she can't be sure she would be safe at home and does not want to be discharged home. Advised Makenzie that she would have to be admitted medically with psychiatry consult and wouldn't be able to be admitted to . She states this is fine. This employment case manager went into her room shortly after to speak with Makenzie and observed her to be laughing while talking on the phone." "Met with pt to complete brief mental health assessment. Pt reports being suicidal with a plan to overdose on medications. No specific medications and pt states she has no intentions of carrying out this plan but felt she needed to come to the ED to evaluated since she does have plan. She reports nothing triggered these thoughts and everything at home is going well. She reports hearing male voices telling her to harm herself. " and the following note by the psychiatric liaison nurse: "Patient originally presented to ED with SI and requesting inpatient treatment. Incidentally, patient is COVID positive and unable to be placed in a psych unit. Patient medically admitted for psych management/discharge planning and safety. Patient is well known to psych service from several previous admissions/visits. Patient was recently inpatient at [facility] and was discharged , 3 days ago. Patient has been hospitalized more than not, in the past year. She lives with her and his parents. Patient has a history of chronic SI with past suicide attempts as well as self injurious behaviors (typically scratching/cutting bilateral arms). She reports being on a 303 commitment while at [facility] and was told "I would be there for 20 days and then would go to a assistant terminal manager residential place. Then they discharged me the next day. My in-laws think I was discharged too soon". On Saturday, pt reports having SI thoughts "with no intent to act on them" and was advised to come to the ED "because once I have intent, it would be hard to get me to come to the hospital and I have a history". Patient cannot identify any specific stressors contributing to her SI. Patient is wrapped in outpatient services/supports including psych provider ([employer]), Therapy ([employer]), Mobile psych ([employer]), and CM ([facility]). She gives consent to communicate with all outpatient providers. Patient reports she is interested in medication adjustments, which had been changed during recent admission. She is able to confirm her current psych med regimen as Doxepin, Ativan, Naltrexone, Zyprexa and Haldol. [place] is also noted to be prescribed. Today, patient reports having passive thoughts to this morning and denies any plans or intent. She denies any thoughts of self harm and feels [facility] can notify staff if she begins to have the urge of SIB. She reports last SIB was during hospitalization at [facility] vis scratching with fingernails. Superficial scratches noted to left forearm." Review of the medical record revealas most recent discharge from [facility] March 2020. Pt. carries diagnosis of borderline personality disorder, bipolar vs MDD, PTSD. . Review of pertinent labs reveals they are noncontributory except for positive SARS-CoV-2 screen. A urine toxicology screen was negative for all tested substrates. BAL was <10 mg/dL. screen was negative. Past Psychiatric History Current Psychiatric Diagnosis: MDD Previous Psych Admissions: many Do You Have Access To A Gun?: No Past Medication Trials: many Allergies Allergy/AdvReac Type Severity Reaction Status Date / Time vancomycin Allergy Intermediate Red/Itchy Verified 01/23/23 22:25 skin Home Medications Medication Instructions Recorded Confirmed Type apixaban 5 mg tablet (Eliquis) 5 mg PO AMHS 07/27/22 08/30/23 History propranolol 40 mg tablet 40 mg PO BID 07/27/22 08/30/23 History famotidine 20 mg tablet 20 mg PO BID 10/13/22 08/30/23 History galcanezumab-gnlm 120 mg/mL 120 mg subcut MONTHLY 01/23/23 08/30/23 History subcutaneous pen injector (Emgality Pen) omeprazole 40 mg capsule,delayed 40 mg PO QAM 01/23/23 08/30/23 History release levothyroxine 50 mcg tablet 50 mcg PO DAILY 04/08/23 08/30/23 History norethindrone (contraceptive) 0.35 0.35 mg PO DAILY 04/11/23 08/30/23 History mg tablet doxepin 25 mg capsule 25 mg PO DAILY 08/30/23 08/30/23 History haloperidol 5 mg tablet 5 mg PO 1XD 08/30/23 08/30/23 History lithium carbonate 300 mg capsule 300 mg 3XD 08/30/23 08/30/23 History naltrexone 50 mg tablet 25 mg PO 1XD 08/30/23 08/30/23 History olanzapine 20 mg tablet 20 mg PO 1XD HS 08/30/23 08/30/23 History Patient History Medical History Asplenia Depression with suicidal ideation Depression with suicidal ideation Eating disorder, unspecified Intermittent asthma Involuntary commitment Major depression Major depressive disorder with psychotic features MDD (major depressive disorder), recurrent, severe, with psychosis Brock brock disease Portal vein thrombosis PTSD (post-traumatic stress disorder) Spherocytosis Suicidal ideation Superior mesenteric vein thrombosis Thrombocytosis Surgical History History of splenectomy Family History Denies family history of Coronary heart disease Social History Smoking Status: Never smoker Hx Alcohol Use: No Hx Substance Use: No Preferred Language: Upper Sorbian Communication Ability: Effective Grocery Bagger Required: No Beliefs That Will Affect Care: None marital status: Current Living Situation: Spouse and Family How many Children do You have: 0 Feels Safe at Home: Yes Gender Identity: Female Assistive Devices: Glasses Physical Exam Psychiatric: Orientation: alert, oriented to person, oriented to place and oriented to time Apperance: appropriately dressed and appropriately groomed Eye Contact: + fair eye contact Motor Behavior: no abnormal motor movements Speech: normal rate/rhythm/volume of speech Affect: + constricted affect Mood: + depressed mood Thought Process: + concrete thought process Thought Content: reality based without delusions Suicidal Thoughts: denies suicidal intent (clearly says she "would not" act on thoughts); + reports suicidal thoughts (contingent, vague) and + reports suicidal plan ("would overdose") Homicidal Thoughts: denies homicidal thoughts Hallucinations: no auditory hallucinations and no visual hallucinations Cognition: recent memory grossly intact, remote memory grossly intact and attention grossly intact Estimated Intelligence: average estimated intelligence Insight: + limited insight Judgment: + limited judgement Vital Signs (Past 24 Hours): Last Vital Signs Temp 36.6 C 08/31/23 11:18 Pulse 69 08/31/23 18:00 Resp 17 08/31/23 18:00 BP 100/64 08/31/23 18:00 Pulse Ox 96 08/31/23 18:00 O2 Del Method Room Air 08/31/23 18:00 Exam Statement: Physical exams were performed in the ED and by the admitting hospitalist for the purposes of medical clearance. I accept those physicals as correct and adequate and have incorporated that information into my assessment. Review of Systems Psychiatric: + depression, + suicidal ideation and + anxiety Results & Data (PSY) Medications Administered Acetaminophen (Acetaminophen 325 Mg Tab) 650 mg PO Q4H PRN PRN Reason: pain/fever Stop: 09/29/23 22:41 Last Admin: 08/31/23 13:15 Dose: 650 mg Documented By: Admin: 08/31/23 02:23 Dose: 650 mg Documented By: TRA Apixaban (Apixaban 5 Mg Tablet) 5 mg PO AMHS [facility] Stop: 09/29/23 22:41 Last Admin: 08/31/23 11:56 Dose: 5 mg Documented By: Admin: 08/31/23 00:03 Dose: 5 mg Documented By: TRA Famotidine (Famotidine 20 Mg Tab) 20 mg PO BID [facility] Stop: 09/29/23 22:41 Last Admin: 08/31/23 09:21 Dose: 20 mg Documented By: Admin: 08/31/23 00:03 Dose: 20 mg Documented By: TRA Levothyroxine Sodium (Levothyroxine Sodium 50 Mcg Tablet) 50 mcg PO DAILYBB [facility] Stop: 09/30/23 06:29 Last Admin: 08/31/23 06:30 Dose: 50 mcg Documented By: ASMITA Pantoprazole Sodium (Pantoprazole 40 Mg Tab) [facility] Stop: 09/30/23 08:59 Last Admin: 08/31/23 09:21 Dose: 40 mg Documented By: MAURY Propranolol HCl (Propranolol Hcl 20 Mg Tab) 40 mg PO BID [facility] Stop: 09/29/23 22:41 Last Admin: 08/31/23 10:08 Dose: 40 mg Documented By: Admin: 08/31/23 00:03 Dose: 40 mg Documented By: TRA Coding Level of Care Code 79907 [facility] Intl Hosp Care l 3 Diagnoses Borderline personality disorder F60.3 PTSD (post-traumatic stress disorder) F43.10 Bipolar disorder F31.9 Active/Remission status: currently active Current bipolar episode type: depressed Psychotic features: with psychotic features Time Spent (min) 63
[2023-08-31] MEDS: OLANZapine 20 MG TABLET PO SCH (20:23)
[2023-08-31] MEDS: LITHIUM CARBONATE 300 MG TAB PO SCH (22:07)
[2023-08-31] MEDS: NALTREXONE HCL 50 MG TAB PO SCH (22:07)
[2023-08-31] MEDS: haloperidoL 5 MG TAB PO SCH (22:08)
[2023-09-01 06:37] LABS: Albumin Globulin Ratio 1.5 (0.9-2); Albumin Level 3.8 gm/dl (3.4-5.0); BUN Creatinine Ratio 17.2 (10-20); Bilirubin,Total 0.6 mg/dl (0.2-1.0); Calcium 8.8 mg/dl (8.6-10.3); Creatinine Clr Calc Pharmacy 150.8 ml/min; Est GFR (African American) 149.5 ml/min; Globulin 2.6 gm/dl (2.5-4.0); Potassium 3.9 mmol/L (3.5-5.1); Total Protein 6.4 gm/dl (6.0-8.3)
[2023-09-01] MEDS: LEVOTHYROXINE SODIUM 50 MCG TABLET PO SCH (06:49)
[2023-09-01] MEDS: APIXABAN 5 MG TABLET PO SCH ×2 (08:34→20:05)
[2023-09-01] MEDS: DOXEPIN HCL 25 MG CAPSULE PO SCH (08:34)
[2023-09-01] MEDS: haloperidoL 5 MG TAB PO SCH ×3 (08:35→20:05)
[2023-09-01] MEDS: FAMOTIDINE 20 MG TAB PO SCH ×2 (08:35→20:05)
[2023-09-01] MEDS: LITHIUM CARBONATE 300 MG TAB PO SCH ×4 (08:35→20:05)
[2023-09-01] MEDS: NALTREXONE HCL 50 MG TAB PO SCH (08:39)
[2023-09-01] MEDS: PANTOprazole 40 MG TAB PO SCH (08:40)
[2023-09-01] MEDS: PROPRANOLOL HCL 20 MG TAB PO SCH ×2 (08:49→20:06)
--- NOTE | 2023-09-01 10:08 | Psychiatric Progress Note ---
Date of Service September 01, 2023 Impression / Recommendations Impression 09/01/2023: Trough lithium level this morning was 0.3 mmol/L, substantially below the therapeutic range of 0.8-1.2 mmol/L. Pt has been preoccupied with getting "something for the voices", making many requests to staff. In my meeting with pt, she was pleasant, appropriate, and did not appear to be responding to internal stimuli. She spoke of her "need to get the voices under control" but had difficulty articulating details about any current voices. She clarifies that she's "been on doxepin for years and it really helps with sleep". At her most recent psychiatric admission she was on only that and lorazepam; lithium, olanzapine, and haloperidol were started during that stay. She doesn't think olanzapine was very helpful but that haloperidol "used as a PRN worked pretty well", but had to be used 3 times a day consistently. Discussed known risks of typical (i.e., haloperidol) and atypical (i.e., olanzapine) antipsychotics including potentially permanent neurological side effects, metabolic changes including elevated lipids or glucose. Discussed as well that olanzapine could be helpful fairly rapidly as a mood stabilizer while lithium will likely require some time for titration. Pt has taken lithium in the past and was already aware of renal risk, need to avoid dehydration. She even knew that her current blood level of 0.3 mmol/L is very low, though she wasn't sure of the therapeutic range of 0.8 to 1.2 mmol/L. 08/31/2023: 22 y/o F with history of bipolar disorder vs. major depressive disorder, borderline personality disorder, PTSD and numerous psychiatric hos pitalizations who presented to the ED 3 days after discharge from an acute psychiatric admission reporting suicidal ruminations with a provisional plan of overdosing on medication but no intent of acting on those thoughts. She has been hospitalized for more days than not over the past year. A significant factor in her presentation to the ED last night seems to be her family's belief that she was "discharged too soon" from the most recent hospitalization. Pt has had access to extensive inpatient and outpatient resources without a sense that much has helped her. She's currently on low-dose doxepin that seems to have been started recently and fairly low-dose lithium. These are, hypothetically, appropriate medications so will continue and titrate them based on tolerability and blood levels. The naltrexone is likely intended for self- injurious behavior. (1) Borderline personality disorder: (2) PTSD (post-traumatic stress disorder): (3) Bipolar disorder: Plan * increase haloperidol to 5 mg TID - prior to admission medication at 5 mg daily * increase lithium to 600 mg TID - prior to admission medication at 300 mg TID * continue doxepin 25 mg daily - prior to admission medication * continue naltrexone 25 mg daily - prior to admission medication * continue olanzapine 20 mg QHS - prior to admission medication Suicide Risk Level Suicide Risk Level: Moderate (q15 min suicide checks) (chronic thoughts, denies intent) Risk Factors Assessment Male: No : Yes Do You Have Access To A Gun?: No Health Problems: Yes Mental Health Diagnoses: Yes Substance Use Disorders: No Previous Attempt: Yes Previous Psychiatric Hospitalization: Yes Protective Factors Assessment Responsible for Young Children: No Employed: No Supportive Family: Yes Good Rapport with Provider: Yes Interval History Identifying Information MAKENZIE HILLIARD is a 22-year-old F with a history of multiple hospitalizations, admitted on 08/30/2023 for suicidal ideation. Consult is by the hospitalist service for "suicideal ideation". Pt presented to the ED with psychiatric complaints warranting psychiatric admission but due to positive SARS-CoV-2 screen could not be admitted to the psychiatric unit. Chief Complaint "I need something for the voices". Subjective Subjective The patient was seen and assessed and interval progress reviewed in a multidisciplinary team meeting with psychiatric liaison nursing and social work. For details, see the "Impression" section. Overall I spent a total of 63 minutes for this consultation follow-up including review of chart records, review of test results, direct evaluation of the patient [id number], counseling the patient, medication education with the patient, risk assessment, discussion with the psychiatric liaison nurse, and documentation in the electronic health record. Physical Exam Psychiatric Orientation: alert, oriented to person, oriented to place and oriented to time Apperance: appropriately dressed and appropriately groomed Eye Contact: + fair eye contact Motor Behavior: no abnormal motor movements Speech: normal rate/rhythm/volume of speech Affect: + constricted affect Mood: + depressed mood Thought Process: + concrete thought process Thought Content: reality based without delusions Suicidal Thoughts: denies suicidal intent (clearly says she "would not" act on thoughts); + reports suicidal thoughts (contingent, vague) and + reports suicidal plan ("would overdose if I did anything, but I won't") Homicidal Thoughts: denies homicidal thoughts Hallucinations: + auditory hallucinations (difficult for pt to describe); no visual hallucinations Cognition: recent memory grossly intact, remote memory grossly intact and attention grossly intact Estimated Intelligence: average estimated intelligence Insight: + limited insight Judgment: + limited judgement Vital Signs (Past 24 Hours) Last Vital Signs Temp 36.4 C L 09/01/23 06:52 Pulse 63 09/01/23 08:51 Resp 16 09/01/23 08:51 BP 96/63 L 09/01/23 08:51 Pulse Ox 96 09/01/23 08:51 O2 Del Method Room Air 09/01/23 08:51 Results & Data (U) Laboratory Results Laboratory Results - last 24 hr 09/01/23 05:49 Sodium 139 Potassium 3.9 Chloride 108 H Carbon Dioxide 23 Anion Gap 8 BUN 10 Creatinine 0.58 L Est Cr Clr Drug Dosing 150.8 Est GFR ( Amer) 149.5 Est GFR (Non-Af Amer) 129.0 BUN/Creatinine Ratio 17.2 Glucose 89 Calcium 8.8 Total Bilirubin 0.6 AST 22 ALT 95 H Alkaline Phosphatase 149 H Total Protein 6.4 Albumin 3.8 Globulin 2.6 Albumin/Globulin Ratio 1.5 [place] 0.3 L Current Inpatient Medications Current Inpatient Medications: Current Inpatient Medications Acetaminophen (Acetaminophen 325 Mg Tab) 650 mg PO Q4H PRN PRN Reason: pain/fever Stop: 09/29/23 22:41 Last Admin: 08/31/23 13:15 Dose: 650 mg Apixaban (Apixaban 5 Mg Tablet) 5 mg PO AMHS [facility] Stop: 09/29/23 22:41 Last Admin: 09/01/23 08:34 Dose: 5 mg Doxepin HCl (Doxepin Hcl 25 Mg Capsule) 25 mg PO DAILY [facility] Stop: 10/01/23 08:59 Last Admin: 09/01/23 08:34 Dose: 25 mg Famotidine (Famotidine 20 Mg Tab) 20 mg PO BID [facility] Stop: 09/29/23 22:41 Last Admin: 09/01/23 08:35 Dose: 20 mg Haloperidol (Haloperidol 5 Mg Tab) 5 mg PO DAILY [facility] Stop: 09/30/23 21:44 Last Admin: 09/01/23 08:35 Dose: 5 mg Levothyroxine Sodium (Levothyroxine Sodium 50 Mcg Tablet) 50 mcg PO DAILYBB [facility] Stop: 09/30/23 06:29 Last Admin: 09/01/23 06:49 Dose: 50 mcg [place] Carbonate ([place] Carbonate 300 Mg Tab) 300 mg PO TID [facility] Stop: 09/30/23 21:44 Last Admin: 09/01/23 08:35 Dose: 300 mg Miscellaneous (Galcanezumab-Gnlm [Emgality Pen] 120 Mg/Ml Pen Injector- Order Awaiting Action) 1 each N/A QS [facility] Stop: 10/01/23 00:00 Last Admin: 09/01/23 08:13 Dose: Not Given Miscellaneous (Norethindrone (Contraceptive) 0.35 Mg Tablet- Order Awaiting Action) 1 each N/A QS [facility] Stop: 10/01/23 00:00 Last Admin: 09/01/23 08:13 Dose: Not Given Naltrexone HCl (Naltrexone Hcl 50 Mg Tab) 50 mg PO DAILY [facility] Stop: 09/30/23 21:59 Last Admin: 09/01/23 08:39 Dose: 50 mg Olanzapine (Olanzapine 20 Mg Tablet) 20 mg PO HS [facility] Stop: 09/30/23 20:59 Last Admin: 08/31/23 20:23 Dose: 20 mg Pantoprazole Sodium (Pantoprazole 40 Mg Tab) 40 mg PO QAM [facility] Stop: 09/30/23 08:59 Last Admin: 09/01/23 08:40 Dose: 40 mg Propranolol HCl (Propranolol Hcl 20 Mg Tab) 40 mg PO BID [facility] Stop: 09/29/23 22:41 Last Admin: 09/01/23 08:49 Dose: Not Given Mental Health & Subst Abuse Tx Psychiatrist Name of Psychiatrist: Temitope Trimble Psychiatrist's Copra Sampler Name of Copra Sampler: Andreea Smith Phone Number for Copra Sampler: [phone] Post Discharge Appointments Primary Care Physician [facility] Information Discharge Discharge Address: [address] [place] [id number] (3) Bipolar disorder Active/Remission status: currently active Current bipolar episode type: depressed Psychotic features: with psychotic features
[2023-09-01] MEDS: CONTRACEPTIVE PO SCH (12:29)
[2023-09-01] MEDS: ACETAMINOPHEN 325 MG TAB PO PRN (12:33)
--- NOTE | 2023-09-01 14:37 | Hospitalist Progress Note ---
Date of Service September 01, 2023 Assessment & Plan (1) Suicidal ideation: Plan: 22-year-old female with past med significant for hyperprolactinemia, asthma, allergic rhinitis, history of thrombosis of mesenteric vein, portal vein thrombosis, moyamoya disease, GERD, amenorrhea, migraine, thrombocytosis after splenectomy, history of essential hemorrhagic thrombocythemia, hereditary spherocytosis, severe depression with psychotic features,schizo affective disor janice, PTSD, borderline personal disorder, eating disorder with history of social ideation comes again with thoughts of hurting herself. She still had thoughts to hurt herself. Last 2 days she is having some runny nose, sore throat and cough. Denies any fevers. Has some headache. No body aches. No nausea. No chest pain or shortness of breath. No abdominal pain. Somewhat constipated. Normal bladder movements. Resting comfortably. Suicidal ideation One-on-one observation Suicidal precautions Psych consult Elevated liver enzymes AST/ALT/ALP54/183/203 on admission Patient denies any abdominal pain can be drug induced secondary to lithium, naltrexone or doxepin Right upper quadrant ultrasound does not show any gallstone or biliary duct dilation. Improvement in LFTs noted. COVID COVID precautions Supportive care History of portal vein thrombosis On [facility] Depression schizo affective disorder PTSD Borderline personality disorder Management as per psychiatry DVT prophylaxis On [facility] Disposition Medical floor. Appreciate psychiatry help for disposition. Full code Please note the above document was generated using voice recognition software. It may contain grammatical, syntax or spelling errors. Any formal questions or concerns about the content, text or information contained within the body of this dictation should be directly addressed to the provider for clarification Admission and Anticipated Discharge Date Admission Date: August 30, 2023 Subjective Patient seen and examined at bedside. She is comfortable; not in distress. Vital stable. She is saturating well in room air Review of Systems Review of Systems: All systems reviewed & are unremarkable except as noted in Subjective Physical Exam Physical Exam: General- Not in distress Lungs- clear to auscultation no wheezing or crackles. Heart- regular rhythm; no murmur, no gallop. Abdomen- normal bowel sounds, soft, nontender, no distension. Extremities- no pretibial edema, no erythema. Neuro- alert, oriented x 3; EOMI; no facial palsy; no dysarthria; moves extremities Results & Data Results & Data Vital Signs (Past 12 Hours) Vital Signs Temp Pulse Resp BP Pulse Ox O2 Del Method 09/01/23 08:51 63 16 96/63 L 96 Room Air 09/01/23 06:52 36.4 C L 61 16 118/76 96 Room Air
[2023-09-01] MEDS: OLANZapine 20 MG TABLET PO SCH (20:44)
[2023-09-02] MEDS: LEVOTHYROXINE SODIUM 50 MCG TABLET PO SCH (06:25)
[2023-09-02] MEDS: APIXABAN 5 MG TABLET PO SCH ×2 (09:25→21:59)
[2023-09-02] MEDS: NALTREXONE HCL 50 MG TAB PO SCH (09:26)
[2023-09-02] MEDS: PANTOprazole 40 MG TAB PO SCH (09:26)
[2023-09-02] MEDS: PROPRANOLOL HCL 20 MG TAB PO SCH ×2 (09:26→21:26)
[2023-09-02] MEDS: DOXEPIN HCL 25 MG CAPSULE PO SCH (09:26)
[2023-09-02] MEDS: LITHIUM CARBONATE 300 MG TAB PO SCH ×2 (09:26→21:26)
[2023-09-02] MEDS: FAMOTIDINE 20 MG TAB PO SCH ×2 (09:26→21:27)
[2023-09-02] MEDS: haloperidoL 5 MG TAB PO SCH ×3 (09:26→21:27)
[2023-09-02] MEDS: CONTRACEPTIVE PO SCH (09:26)
--- NOTE | 2023-09-02 10:06 | Psychiatric Progress Note ---
Date of Service September 02, 2023 Impression / Recommendations Impression 09/02/2013: [place] was increased from 300 mg TID to 600 mg TID following a blood level of 0.3 mmol/L and haloperidol was increased from 0.5 mg once daily to 0.5 mg TID to reflect the dose she reported having actually received during her very recent hospitalization. Pt complains "they didn't up the Haldol", though I ordered the increase myself yesterday evening, and insists she's had none so far today. She says symptoms are completely unchanged. She does say she has tolerated the increased lithium dose thus far. 09/01/2023: Trough lithium level this morning was 0.3 mmol/L, substantially below the therapeutic range of 0.8-1.2 mmol/L. Pt has been preoccupied with getting "something for the voices", making many requests to staff. In my meeting with pt, she was pleasant, appropriate, and did not appear to be responding to internal stimuli. She spoke of her "need to get the voices under control" but had difficulty articulating details about any current voices. She clarifies that she's "been on doxepin for years and it really helps with sleep". At her most recent psychiatric admission she was on only that and lorazepam; lithium, olanzapine, and haloperidol were started during that stay. She doesn't think olanzapine was very helpful but that haloperidol "used as a PRN worked pretty well", but had to be used 3 times a day consistently. Discussed known risks of t ypical (i.e., haloperidol) and atypical (i.e., olanzapine) antipsychotics including potentially permanent neurological side effects, metabolic changes including elevated lipids or glucose. Discussed as well that olanzapine could be helpful fairly rapidly as a mood stabilizer while lithium will likely require some time for titration. Pt has taken lithium in the past and was already aware of renal risk, need to avoid dehydration. She even knew that her current blood level of 0.3 mmol/L is very low, though she wasn't sure of the therapeutic range of 0.8 to 1.2 mmol/L. 08/31/2023: 22 y/o F with history of bipolar disorder vs. major depressive disorder, borderline personality disorder, PTSD and numerous psychiatric hospitalizations who presented to the ED 3 days after discharge from an acute psychiatric admission reporting suicidal ruminations with a provisional plan of overdosing on medication but no intent of acting on those thoughts. She has been hospitalized for more days than not over the past year. A significant factor in her presentation to the ED last night seems to be her family's belief that she was "discharged too soon" from the most recent hospitalization. Pt has had access to extensive inpatient and outpatient resources without a sense that much has helped her. She's currently on low-dose doxepin that seems to have been started recently and fairly low-dose lithium. These are, hypothetically, appropriate medications so will continue and titrate them based on tolerability and blood levels. The naltrexone is likely intended for self-injurious behavior. (1) Borderline personality disorder: (2) PTSD (post-traumatic stress disorder): (3) Bipolar disorder: Plan * continue doxepin 25 mg daily - prior to admission medication * continue haloperidol 5 mg TID - prior to admission medication at 5 mg daily * continue lithium 600 mg TID - prior to admission medication at 300 mg TID * continue naltrexone 25 mg daily - prior to admission medication * continue olanzapine 20 mg QHS - prior to admission medication Suicide Risk Level Suicide Risk Level: Moderate (q15 min suicide checks) (chronic thoughts, denies intent) Risk Factors Assessment Male: No : Yes Do You Have Access To A Gun?: No Health Problems: Yes Mental Health Diagnoses: Yes Substance Use Disorders: No Previous Attempt: Yes Previous Psychiatric Hospitalization: Yes Protective Factors Assessment Responsible for Young Children: No Employed: No Supportive Family: Yes Good Rapport with Provider: Yes Interval History Identifying Information MAKENZIE HILLIARD is a 22-year-old F with a history of multiple hospitalizations, admitted on 08/30/2023 for suicidal ideation. Consult is by the hospitalist service for "suicideal ideation". Pt presented to the ED with psychiatric complaints warranting psychiatric admission but due to positive SARS-CoV-2 screen could not be admitted to the psychiatric unit. Chief Complaint "Just the same". Subjective Subjective The patient was seen and assessed and interval progress reviewed in a multidisciplinary team meeting with the treatment team and psychiatric liaison. For details, see the "Impression" section. Overall I spent a total of 47 minutes for this consultation follow-up including review of chart records, direct evaluation of the patient [id number], donning and doffing PPE for droplet precautions, counseling the patient, medication education with the patient, risk assessment, discussion during interdisciplinary treatment rounds, and documentation in the electronic health record. Physical Exam Psychiatric Orientation: alert, oriented to person, oriented to place and oriented to time Apperance: appropriately dressed and appropriately groomed Eye Contact: + fair eye contact Motor Behavior: no abnormal motor movements Speech: normal rate/rhythm/volume of speech Affect: + constricted affect Mood: + depressed mood Thought Process: + concrete thought process Thought Content: reality based without delusions Suicidal Thoughts: denies suicidal intent (clearly says she "would not" act on thoughts); + reports suicidal thoughts (contingent, vague) and + reports suicidal plan ("would overdose if I did anything, but I won't") Homicidal Thoughts: denies homicidal thoughts Hallucinations: + auditory hallucinations (difficult for pt to describe); no visual hallucinations Cognition: recent memory grossly intact, remote memory grossly intact and attention grossly intact Estimated Intelligence: average estimated intelligence Insight: + limited insight Judgment: + limited judgement Vital Signs (Past 24 Hours) Last Vital Signs Temp 36.4 C L 09/01/23 06:52 Pulse 71 09/02/23 08:41 Resp 16 09/02/23 08:41 BP 102/67 09/02/23 08:41 Pulse Ox 97 09/02/23 08:41 O2 Del Method Room Air 09/02/23 09:34 Results & Data ([facility]) Current Inpatient Medications Current Inpatient Medications: Current Inpatient Medications Acetaminophen (Acetaminophen 325 Mg Tab) 650 mg PO Q4H PRN PRN Reason: pain/fever Stop: 09/29/23 22:41 Last Admin: 09/01/23 12:33 Dose: 650 mg Apixaban (Apixaban 5 Mg Tablet) 5 mg PO [facility] Stop: 09/29/23 22:41 Last Admin: 09/02/23 09:25 Dose: 5 mg Doxepin HCl (Doxepin Hcl 25 Mg Capsule) 25 mg PO DAILY RENU Stop: 10/01/23 08:59 Last Admin: 09/02/23 09:26 Dose: 25 mg Famotidine (Famotidine 20 Mg Tab) 20 mg PO BID RENU Stop: 09/29/23 22:41 Last Admin: 09/02/23 09:26 Dose: 20 mg Haloperidol (Haloperidol 5 Mg Tab) 5 mg PO TID RENU Stop: 10/01/23 14:59 Last Admin: 09/02/23 09:26 Dose: 5 mg Levothyroxine Sodium (Levothyroxine Sodium 50 Mcg Tablet) 50 mcg PO DAILYBB RENU Stop: 09/30/23 06:29 Last Admin: 09/02/23 06:25 Dose: 50 mcg [place] Carbonate ([place] Carbonate 300 Mg Tab) 600 mg PO TID RENU Stop: 10/01/23 20:59 Last Admin: 09/02/23 09:26 Dose: 600 mg Miscellaneous (Galcanezumab-Gnlm [Emgality Pen] 120 Mg/Ml Pen Injector- Order Awaiting Action) 1 each N/A QS RENU Stop: 10/01/23 00:00 Last Admin: 09/02/23 09:26 Dose: Not Given Miscellaneous (Norethindrone (Contraceptive) 0.35 Mg Tablet- Order Awaiting Action) 1 each N/A QS RENU Stop: 10/01/23 00:00 Last Admin: 09/02/23 09:26 Dose: Not Given Naltrexone HCl (Naltrexone Hcl 50 Mg Tab) 50 mg PO DAILY RENU Stop: 09/30/23 21:59 Last Admin: 09/02/23 09:26 Dose: 50 mg Oral Contraceptive~ Non-Formulary Patient's Own Med 1 each PO DAILY RENU Stop: 10/01/23 11:59 Last Admin: 09/02/23 09:26 Dose: 1 tab Olanzapine (Olanzapine 20 Mg Tablet) 20 mg PO HS RENU Stop: 09/30/23 20:59 Last Admin: 09/01/23 20:44 Dose: 20 mg Pantoprazole Sodium (Pantoprazole 40 Mg Tab) 40 mg PO QAM RENU Stop: 09/30/23 08:59 Last Admin: 09/02/23 09:26 Dose: 40 mg Propranolol HCl (Propranolol Hcl 20 Mg Tab) 40 mg PO BID RENU Stop: 09/29/23 22:41 Last Admin: 09/02/23 09:26 Dose: 40 mg Mental Health & Subst Abuse Tx [facility]iat[facility]'s Nuclear Medical Tech Name of Nuclear Medical Tech: Andreea Valdovinos Phone Number for Nuclear Medical Tech: [phone] Case Management Appointment Comment: please follow up directly with CM to schedule Post Discharge Appointments Primary Care Physician Name Of Family Doctor/PCP: Bubba K[facility]y [facility] Contact Information Discharge Discharge Address: [address] [place] [address] (3) Bipolar disorder Active/Remission status: currently active Current bipolar episode type: depressed Psychotic features: with psychotic features
--- NOTE | 2023-09-02 14:45 | Hospitalist Progress Note ---
Date of Service September 02, 2023 Assessment & Plan (1) Suicidal ideation: Plan: 22-year-old female with past med significant for hyperprolactinemia, asthma, allergic rhinitis, history of thrombosis of mesenteric vein, portal vein thrombosis, moyamoya disease, GERD, amenorrhea, migraine, thrombocytosis after splenectomy, history of essential hemorrhagic thrombocythemia, hereditary spherocytosis, severe depression with psychotic features,schizo affective disor janice, PTSD, borderline personal disorder, eating disorder with history of social ideation comes again with thoughts of hurting herself. She was found to have COVID-19 infection and admitted to medicine service with psychiatry on consult. Suicidal ideation One-on-one observation Suicidal precautions Psychiatry recommended to increase Haldol to 500 3 times daily, increase lithium to 600 3 times daily. Elevated liver enzymes AST/ALT/ALP54/183/203 on admission Patient denies any abdominal pain can be drug induced secondary to lithium, naltrexone or doxepin Right upper quadrant ultrasound does not show any gallstone or biliary duct dilation. Improvement in LFTs noted. Follow-up as outpatient. COVID COVID precautions Supportive care History of portal vein thrombosis On [facility] Depression schizo affective disorder PTSD Borderline personality disorder Management as per psychiatry DVT prophylaxis On [facility] Disposition Medical floor. Appreciate psychiatry help for disposition. Full code Please note the above document was generated using voice recognition software. It may contain grammatical, syntax or spelling errors. Any formal questions or concerns about the content, text or information contained within the body of this dictation should be directly addressed to the provider for clarification Admission and Anticipated Discharge Date Admission Date: August 30, 2023 Subjective Patient seen and examined at bedside. Comfortable; not in distress. Denies fever, chills, chest pain, shortness of breath, abdominal pain or urinary symptoms. No significant overnight events Review of Systems Review of Systems: All systems reviewed & are unremarkable except as noted in Subjective Physical Exam Physical Exam: General- Not in distress Lungs- clear to auscultation no wheezing or crackles. Heart- regular rhythm; no murmur, no gallop. Abdomen- normal bowel sounds, soft, nontender, no distension. Extremities- no pretibial edema, no erythema. Neuro- alert, oriented x 3; EOMI; no facial palsy; no dysarthria; moves extremities Results & Data Results & Data Vital Signs (Past 12 Hours) Vital Signs Pulse Resp BP Pulse Ox O2 Del Method 09/02/23 09:34 Room Air 09/02/23 08:41 71 16 102/67 97 Room Air 09/02/23 02:48 22
[2023-09-02] MEDS: OLANZapine 20 MG TABLET PO SCH (21:59)
[2023-09-03] MEDS: LEVOTHYROXINE SODIUM 50 MCG TABLET PO SCH (07:43)
[2023-09-03] MEDS: haloperidoL 5 MG TAB PO SCH ×3 (08:11→22:48)
[2023-09-03] MEDS: PANTOprazole 40 MG TAB PO SCH (08:11)
[2023-09-03] MEDS: APIXABAN 5 MG TABLET PO SCH ×2 (08:11→22:48)
[2023-09-03] MEDS: PROPRANOLOL HCL 20 MG TAB PO SCH ×2 (08:11→22:49)
[2023-09-03] MEDS: CONTRACEPTIVE PO SCH (08:11)
[2023-09-03] MEDS: NALTREXONE HCL 50 MG TAB PO SCH (08:11)
[2023-09-03] MEDS: FAMOTIDINE 20 MG TAB PO SCH ×2 (08:12→22:48)
[2023-09-03] MEDS: DOXEPIN HCL 25 MG CAPSULE PO SCH (08:12)
[2023-09-03] MEDS: LITHIUM CARBONATE 300 MG TAB PO SCH ×3 (08:12→22:48)
--- NOTE | 2023-09-03 11:30 | Psychiatric Progress Note ---
Date of Service September 03, 2023 Impression / Recommendations Impression 09/03/2023: Pt reports feeling "better" today in terms of both mood and auditory hallucinations, which she currently rates on her subjective severity scale as 6/10 vs 10/10 at admission. She reports no adverse effects attributable to the haloperidol. Discussed possibly increasing it farther, either to 5 mg QID or to 7.5 mg TID. Pt has chronic, contingent suicidal thoughts. She does act on them at times but does not report ever having been free of them, so the presence of the suicidal thoughts is not a useful predictor in itself of her risk of attempting or completing suicide. Pt has consistently said that she has no suicidal intent and "would not" act on suicidal thoughts. She has reported that "if [she] did anything, it would be to overdose" but again says she "wouldn't do that". I reviewed with pt that she spent more time inpatient last year that outside the hospital, and that I take that as clear evidence that hospitalization itself is of scant benefit given that she presented recently with symptoms. I also pointed out that all the medication adjustments we can do in hospitals can be done at home as well. I told her that the goal should be discharge "in the next day or so". 09/02/2013: [place] was increased from 300 mg TID to 600 mg TID following a blood level of 0.3 mmol/L and haloperidol was increased from 0.5 mg once daily to 0.5 mg TID to reflect the dose she reported having actually received during her very recent hospitalization. Pt complains "they didn't up the Haldol", though I ordered the increase myself yesterday evening, and insists she's had none so far today. She says symptoms are completely unchanged. She does say she has tolerated the increased lithium dose thus far. 09/01/2023: Trough lithium level this morning was 0.3 mmol/L, substantially below the therapeutic range of 0.8-1.2 mmol/L. Pt has been preoccupied with getting "something for the voices", making many requests to staff. In my meeting with pt, she was pleasant, appropriate, and did not appear to be responding to internal stimuli. She spoke of her "need to get the voices under control" but had difficulty articulating details about any current voices. She clarifies that she's "been on doxepin for years and it really helps with sleep". At her most recent psychiatric admission she was on only that and lorazepam; lithium, olanzapine, and haloperidol were started during that stay. She doesn't think olanzapine was very helpful but that haloperidol "used as a PRN worked pretty well", but had to be used 3 times a day consistently. Discussed known risks of typical (i.e., haloperidol) and atypical (i.e., olanzapine) antipsychotics including potentially permanent neurological side effects, metabolic changes including elevated lipids or glucose. Discussed as well that olanzapine could be helpful fairly rapidly as a mood stabilizer while lithium will likely require some time for titration. Pt has taken lithium in the past and was already aware of renal risk, need to avoid dehydration. She even knew that her current blood level of 0.3 mmol/L is very low, though she wasn't sure of the therapeutic range of 0.8 to 1.2 mmol/L. 08/31/2023: 22 y/o F with history of bipolar disorder vs. major depressive disorder, borderline personality disorder, PTSD and numerous psychiatric hospitalizations who presented to the ED 3 days after discharge from an acute psychiatric admission reporting suicidal ruminations with a provisional plan of overdosing on medication but no intent of acting on those thoughts. She has been hospitalized for more days than not over the past year. A significant factor in her presentation to the ED last night seems to be her family's belief that she was "discharged too soon" from the most recent hospitalization. Pt has had access to extensive inpatient and outpatient resources without a sense that much has helped her. She's currently on low-dose doxepin that seems to have been started recently and fairly low-dose lithium. These are, hypothetically, appropriate medications so will continue and titrate them based on tolerability and blood levels. The naltrexone is likely intended for self- injurious behavior. (1) Borderline personality disorder: (2) PTSD (post-traumatic stress disorder): (3) Bipolar disorder: Plan * increase haloperidol 7.5 mg TID - prior to admission medication at 5 mg daily, increased to 5 mg TID on 09/01/2023 * continue doxepin 25 mg daily (for sleep) - prior to admission medication * continue lithium 600 mg TID - prior to admission medication at 300 mg TID, with level of 0.3 mmol/L * continue naltrexone 25 mg daily (to reduce self-injury) - prior to admission medication * continue olanzapine 20 mg QHS - prior to admission medication Suicide Risk Level Suicide Risk Level: Moderate (q15 min suicide checks) (chronic thoughts, denies intent) Risk Factors Assessment Male: No : Yes Do You Have Access To A Gun?: No Health Problems: Yes Mental Health Diagnoses: Yes Substance Use Disorders: No Previous Attempt: Yes Previous Psychiatric Hospitalization: Yes Protective Factors Assessment Responsible for Young Children: No Employed: No Supportive Family: Yes Good Rapport with Provider: Yes Interval History Identifying Information MAKENZIE HILLIARD is a 22-year-old F with a history of multiple hospitalizations, admitted on 08/30/2023 for suicidal ideation. Consult is by the hospitalist service for "suicideal ideation". Pt presented to the ED with psychiatric complaints warranting psychiatric admission but due to positive SARS-CoV-2 screen could not be admitted to the psychiatric unit. Chief Complaint "Better today". Subjective Subjective The patient was seen and assessed and interval progress reviewed in a multidisciplinary team meeting with the treatment team and with psychiatric liaison nursing and social work. For details, see the "Impression" section. Overall I spent a total of 68 minutes for this consultation follow-up including review of chart records, review of test results, donning and doffing PPE for droplet precautions, direct evaluation of the patient [id number], counseling the patient, medication education with the patient, risk assessment, discussion during interdisciplinary treatment rounds and with the psychiatric liaison nurse, and documentation in the electronic health record. Physical Exam Psychiatric Orientation: alert, oriented to person, oriented to place and oriented to time Apperance: appropriately dressed and appropriately groomed Eye Contact: + fair eye contact Motor Behavior: no abnormal motor movements Speech: normal rate/rhythm/volume of speech Affect: + constricted affect Mood: + depressed mood Thought Process: + concrete thought process Thought Content: reality based without delusions Suicidal Thoughts: denies suicidal intent (clearly says she "would not" act on thoughts); + reports suicidal thoughts (contingent, vague) and + reports suicidal plan ("would overdose if I did anything, but I won't") Homicidal Thoughts: denies homicidal thoughts Hallucinations: + auditory hallucinations (difficult for pt to describe); no visual hallucinations Cognition: recent memory grossly intact, remote memory grossly intact and attention grossly intact Estimated Intelligence: average estimated intelligence Insight: + limited insight Judgment: + limited judgement Vital Signs (Past 24 Hours) Last Vital Signs Temp 36.8 C 09/03/23 07:49 Pulse 64 09/03/23 07:49 Resp 14 09/03/23 07:49 BP 94/65 L 09/03/23 07:49 Pulse Ox 94 09/03/23 07:49 O2 Del Method Room Air 09/03/23 07:49 Results & Data ([facility]) Current Inpatient Medications Current Inpatient Medications: Current Inpatient Medications Acetaminophen (Acetaminophen 325 Mg Tab) 650 mg PO Q4H PRN PRN Reason: pain/fever Stop: 09/29/23 22:41 Last Admin: 09/01/23 12:33 Dose: 650 mg Apixaban (Apixaban 5 Mg Tablet) 5 mg PO AMHS [facility] Stop: 09/29/23 22:41 Last Admin: 09/03/23 08:11 Dose: 5 mg Doxepin HCl (Doxepin Hcl 25 Mg Capsule) 25 mg PO DAILY [facility] Stop: 10/01/23 08:59 Last Admin: 09/03/23 08:12 Dose: 25 mg Famotidine (Famotidine 20 Mg Tab) 20 mg PO BID [facility] Stop: 09/29/23 22:41 Last Admin: 09/03/23 08:12 Dose: 20 mg Haloperidol (Haloperidol 5 Mg Tab) 5 mg PO TID [facility] Stop: 10/01/23 14:59 Last Admin: 09/03/23 08:11 Dose: 5 mg Levothyroxine Sodium (Levothyroxine Sodium 50 Mcg Tablet) 50 mcg PO DAILYBB [facility] Stop: 09/30/23 06:29 Last Admin: 09/03/23 07:43 Dose: 50 mcg [place] Carbonate ([place] Carbonate 300 Mg Tab) 600 mg PO TID [facility] Stop: 10/01/23 20:59 Last Admin: 09/03/23 08:12 Dose: 600 mg Miscellaneous (Galcanezumab-Gnlm [Emgality Pen] 120 Mg/Ml Pen Injector- Order Awaiting Action) 1 each N/A QS [facility] Stop: 10/01/23 00:00 Last Admin: 09/03/23 08:12 Dose: Not Given Naltrexone HCl (Naltrexone Hcl 50 Mg Tab) 50 mg PO DAILY [facility] Stop: 09/30/23 21:59 Last Admin: 09/03/23 08:11 Dose: 50 mg Oral Contraceptive~ Non-Formulary Patient's Own Med 1 each PO DAILY [facility] Stop: 10/01/23 11:59 Last Admin: 09/03/23 08:11 Dose: 1 tab Olanzapine (Olanzapine 20 Mg Tablet) 20 mg PO HS [facility] Stop: 09/30/23 20:59 Last Admin: 09/02/23 21:59 Dose: 20 mg Pantoprazole Sodium (Pantoprazole 40 Mg Tab) 40 mg PO QAM [facility] Stop: 09/30/23 08:59 Last Admin: 09/03/23 08:11 Dose: 40 mg Propranolol HCl (Propranolol Hcl 20 Mg Tab) 40 mg PO BID [facility] Stop: 09/29/23 22:41 Last Admin: 09/03/23 08:11 Dose: 40 mg Mental Health & Subst Abuse Tx Psychiatrist Name of Psychiatrist: [employer] Name of [employer] Dealer: Andreea Valdovinos Phone Number for [facility] [employer]: [phone] Case Management Appointment Comment: please follow up directly with CM to schedule Post Discharge Appointments Primary Care Physician Name Of Family Doctor/PCP: Bubba [facility] Contact Information Discharge Discharge Address: [address] [place] [id number] (3) Bipolar disorder Active/Remission status: currently active Current bipolar episode type: depressed Psychotic features: with psychotic features
--- NOTE | 2023-09-03 16:00 | Hospitalist Progress Note ---
Date of Service September 03, 2023 Assessment & Plan (1) Suicidal ideation: Plan: 22-year-old female with past med significant for hyperprolactinemia, asthma, allergic rhinitis, history of thrombosis of mesenteric vein, portal vein thrombosis, moyamoya disease, GERD, amenorrhea, migraine, thrombocytosis after splenectomy, history of essential hemorrhagic thrombocythemia, hereditary spherocytosis, severe depression with psychotic features,schizo affective disor janice, PTSD, borderline personal disorder, eating disorder with history of social ideation comes again with thoughts of hurting herself. She was found to have COVID-19 infection and admitted to medicine service with psychiatry on consult. Suicidal ideation One-on-one observation Suicidal precautions Psychiatry recommended to increase Haldol to 7.5mg 3 times daily, increase lithium to 600 3 times daily. Elevated liver enzymes AST/ALT/ALP54/183/203 on admission Patient denies any abdominal pain can be drug induced secondary to lithium, naltrexone or doxepin Right upper quadrant ultrasound does not show any gallstone or biliary duct dilation. Improvement in LFTs noted. Follow-up as outpatient. COVID COVID precautions Supportive care History of portal vein thrombosis On [facility] Depression schizo affective disorder PTSD Borderline personality disorder Management as per psychiatry DVT prophylaxis On [facility] Disposition Medical floor. Appreciate psychiatry help for disposition. Full code Please note the above document was generated using voice recognition software. It may contain grammatical, syntax or spelling errors. Any formal questions or concerns about the content, text or information contained within the body of this dictation should be directly addressed to the provider for clarification Admission and Anticipated Discharge Date Admission Date: August 30, 2023 Subjective Patient seen and examined at bedside. Comfortable; not in distress. Denies fever, chills, chest pain, shortness of breath, abdominal pain or urinary symptoms. No significant overnight events Review of Systems Review of Systems: All systems reviewed & are unremarkable except as noted in Subjective Physical Exam Physical Exam: General- Not in distress Lungs- clear to auscultation no wheezing or crackles. Heart- regular rhythm; no murmur, no gallop. Abdomen- normal bowel sounds, soft, nontender, no distension. Extremities- no pretibial edema, no erythema. Neuro- alert, oriented x 3; EOMI; no facial palsy; no dysarthria; moves extremities Results & Data Results & Data Vital Signs (Past 12 Hours) Vital Signs Temp Pulse Resp BP Pulse Ox O2 Del Method 09/03/23 15:33 71 15 94/63 L 96 Room Air 09/03/23 14:28 37.2 C 68 16 95/65 L 95 Room Air 09/03/23 07:49 36.8 C 64 14 94/65 L 94 Room Air
[2023-09-03] MEDS: OLANZapine 20 MG TABLET PO SCH (22:48)
[2023-09-04] MEDS: LEVOTHYROXINE SODIUM 50 MCG TABLET PO SCH (05:34)
[2023-09-04] MEDS: PANTOprazole 40 MG TAB PO SCH (09:19)
[2023-09-04] MEDS: NALTREXONE HCL 50 MG TAB PO SCH (09:19)
[2023-09-04] MEDS: haloperidoL 5 MG TAB PO SCH ×3 (09:20→21:34)
[2023-09-04] MEDS: DOXEPIN HCL 25 MG CAPSULE PO SCH (09:21)
[2023-09-04] MEDS: FAMOTIDINE 20 MG TAB PO SCH ×2 (09:22→22:02)
[2023-09-04] MEDS: APIXABAN 5 MG TABLET PO SCH ×2 (09:23→21:34)
[2023-09-04] MEDS: LITHIUM CARBONATE 300 MG TAB PO SCH ×3 (09:23→21:33)
[2023-09-04] MEDS: CONTRACEPTIVE PO SCH (09:26)
[2023-09-04] MEDS: PROPRANOLOL HCL 20 MG TAB PO SCH ×2 (09:27→21:33)
--- NOTE | 2023-09-04 11:37 | Psychiatric Progress Note ---
Date of Service September 04, 2023 Impression / Recommendations Impression 09/04/2023: Shortly before I saw pt, she told Dr. Olivarez that she had ongoing suicidal thoughts but no plan or intent. We discussed that, as far as I know, she is never free from suicidal thoughts so we should focus on her lack of plan or intent. When I saw pt, she confirmed that she has no suicidal plan or intent. She doesn't like the "safe tray" she was brought for lunch and says she doesn't need it for safety. She says her mood is "not bad". Pt volunteers that "the voices are back where they were" (before admission and dose increases of haloperidol). She remains unable to describe these voices in any useful way. She reports no adverse effects attributable to the haloperidol. Discussed her desire to increase the dose. I reminded her that she'd just told me that the voices were now no better than prior to admission despite more than tripling the haloperidol dose, and that at a lower dose she did report ~40% improvement. I would interpret that as showing that higher doses work less well, and that "more medication" might not be helpful at all. We agreed to a cautious increase to 10 mg TID. I discussed the need for outpatient, not inpatient, treatment. I reminded her that very extensive time in hospitals last year doesn't seem to have made any positive difference and that some of the most important treatments (such as DBT) aren't available in hospitals. (Pt said she "thought [she'd] heard of DBT but never did it" when in fact she's been in DBT at least once.) She has a very extensive safety plan that was crafted during a previous admission. Little effort seems to have gone into using it. I told her we will plan for discharge tomorrow. 09/03/2023: Pt reports feeling "better" today in terms of both mood and auditory hallucinations, which she currently rates on her subjective severity scale as 6/10 vs 10/10 at admission. She reports no adverse effects attributable to the haloperidol. Discussed possibly increasing it farther, either to 5 mg QID or to 7.5 mg TID. Pt has chronic, contingent suicidal thoughts. She does act on them at times but does not report ever having been free of them, so the presence of the suicidal thoughts is not a useful predictor in itself of her risk of attempting or completing suicide. Pt has consistently said that she has no suicidal intent and "would not" act on suicidal thoughts. She has reported that "if [she] did anything, it would be to overdose" but again says she "wouldn't do that". I reviewed with pt that she spent more time inpatient last year that outside the hospital, and that I take that as clear evidence that hospitalization itself is of scant benefit given that she presented recently with symptoms. I also pointed out that all the medication adjustments we can do in hospitals can be done at home as well. I told her that the goal should be discharge "in the next day or so". 09/02/2013: [place] was increased from 300 mg TID to 600 mg TID following a blood level of 0.3 mmol/L and haloperidol was increased from 0.5 mg once daily to 0.5 mg TID to reflect the dose she reported having actually received during her very recent hospitalization. Pt complains "they didn't up the Haldol", though I ordered the increase myself yesterday evening, and insists she's had none so far today. She says symptoms are completely unchanged. She does say she has tolerated the increased lithium dose thus far. 09/01/2023: Trough lithium level this morning was 0.3 mmol/L, substantially below the therapeutic range of 0.8-1.2 mmol/L. Pt has been preoccupied with getting "something for the voices", making many requests to staff. In my meeting with pt, she was pleasant, appropriate, and did not appear to be responding to internal stimuli. She spoke of her "need to get the voices under control" but had difficulty articulating details about any current voices. She clarifies that she's "been on doxepin for years and it really helps with sleep". At her most recent psychiatric admission she was on only that and lorazepam; lithium, olanzapine, and haloperidol were started during that stay. She doesn't think olanzapine was very helpful but that haloperidol "used as a PRN worked pretty well", but had to be used 3 times a day consistently. Discussed known risks of typical (i.e., haloperidol) and atypical (i.e., olanzapine) antipsychotics including potentially permanent neurological side effects, metabolic changes including elevated lipids or glucose. Discussed as well that olanzapine could be helpful fairly rapidly as a mood stabilizer while lithium will likely require some time for titration. Pt has taken lithium in the past and was already aware of renal risk, need to avoid dehydration. She even knew that her current blood level of 0.3 mmol/L is very low, though she wasn't sure of the therapeutic range of 0.8 to 1.2 mmol/L. 08/31/2023: 22 y/o F with history of bipolar disorder vs. major depressive disorder, borderline personality disorder, PTSD and numerous psychiatric hospitalizations who presented to the ED 3 days after discharge from an acute psychiatric admission reporting suicidal ruminations with a provisional plan of overdosing on medication but no intent of acting on those thoughts. She has been hospitalized for more days than not over the past year. A significant factor in her presentation to the ED last night seems to be her family's belief that she was "discharged too soon" from the most recent hospitalization. Pt has had access to extensive inpatient and outpatient resources without a sense that much has helped her. She's currently on low-dose doxepin that seems to have been started recently and fairly low-dose lithium. These are, hypothetically, appropriate medications so will continue and titrate them based on tolerability and blood levels. The naltrexone is likely intended for self- injurious behavior. (1) Borderline personality disorder: (2) PTSD (post-traumatic stress disorder): (3) Bipolar disorder: Plan * increase haloperidol to 10 mg TID - prior to admission medication at 5 mg daily, increased to 5 mg TID on 09/01/2023 and to 7.5 mg TID on 09/03/2023 * continue doxepin 25 mg daily (for sleep) - prior to admission medication * continue lithium 600 mg TID - prior to admission medication at 300 mg TID, with level of 0.3 mmol/L * continue naltrexone 25 mg daily (to reduce self-injury) - prior to admission medication * continue olanzapine 20 mg QHS - prior to admission medication * lithium level in AM * anticipate discharge tomorrow Suicide Risk Level Suicide Risk Level: Moderate (q15 min suicide checks) (chronic thoughts, denies intent) Risk Factors Assessment Male: No : Yes Do You Have Access To A Gun?: No Health Problems: Yes Mental Health Diagnoses: Yes Substance Use Disorders: No Previous Attempt: Yes Previous Psychiatric Hospitalization: Yes Protective Factors Assessment Responsible for Young Children: No Employed: No Supportive Family: Yes Good Rapport with Provider: Yes Interval History Identifying Information MAKENZIE HILLIARD is a 22-year-old F with a history of multiple hospitalizations, admitted on 08/30/2023 for suicidal ideation. Consult is by the hospitalist service for "suicideal ideation". Pt presented to the ED with psychiatric complaints warranting psychiatric admission but due to positive SARS-CoV-2 screen could not be admitted to the psychiatric unit. Chief Complaint "The voices are bad again". Subjective Subjective The patient was seen and assessed and interval progress reviewed in a multidisciplinary team meeting with psychiatric liaison nursing and social work. For details, see the "Impression" section. Overall I spent a total of 44 minutes for this consultation follow-up including review of chart records, direct evaluation of the patient [id number], counseling the patient, reconciling and ordering medication, medication education with the patient, risk assessment, discussion with the psychiatric liaison nurse, and documentation in the electronic health record. Physical Exam Psychiatric Orientation: alert, oriented to person, oriented to place and oriented to time Apperance: appropriately dressed and appropriately groomed Eye Contact: + fair eye contact Motor Behavior: no abnormal motor movements Speech: normal rate/rhythm/volume of speech Affect: + constricted affect Mood: + depressed mood Thought Process: + concrete thought process Thought Content: reality based without delusions Suicidal Thoughts: denies suicidal plan and denies suicidal intent (clearly says she "would not" act on thoughts); + reports suicidal thoughts (contingent, vague) Homicidal Thoughts: denies homicidal thoughts Hallucinations: + auditory hallucinations (difficult for pt to describe); no visual hallucinations Cognition: recent memory grossly intact, remote memory grossly intact and attention grossly intact Estimated Intelligence: average estimated intelligence Insight: + limited insight Judgment: + limited judgement Vital Signs (Past 24 Hours) Last Vital Signs Temp 36.7 C 09/04/23 07:32 Pulse 76 09/04/23 09:28 Resp 18 09/04/23 07:32 BP 111/70 09/04/23 09:28 Pulse Ox 95 09/04/23 07:32 O2 Del Method Room Air 09/04/23 07:32 Results & Data ([facility]) Current Inpatient Medications Current Inpatient Medications: Current Inpatient Medications Acetaminophen (Acetaminophen 325 Mg Tab) 650 mg PO Q4H PRN PRN Reason: pain/fever Stop: 09/29/23 22:41 Last Admin: 09/01/23 12:33 Dose: 650 mg Apixaban (Apixaban 5 Mg Tablet) 5 mg PO AMHS RENU Stop: 09/29/23 22:41 Last Admin: 09/04/23 09:23 Dose: 5 mg Doxepin HCl (Doxepin Hcl 25 Mg Capsule) 25 mg PO DAILY RENU Stop: 10/01/23 08:59 Last Admin: 09/04/23 09:21 Dose: 25 mg Famotidine (Famotidine 20 Mg Tab) 20 mg PO BID RENU Stop: 09/29/23 22:41 Last Admin: 09/04/23 09:22 Dose: 20 mg Haloperidol (Haloperidol 5 Mg Tab) 7.5 mg PO TID RENU Stop: 10/03/23 20:59 Last Admin: 09/04/23 09:20 Dose: 7.5 mg Levothyroxine Sodium (Levothyroxine Sodium 50 Mcg Tablet) 50 mcg PO DAILYBB RENU Stop: 09/30/23 06:29 Last Admin: 09/04/23 05:34 Dose: 50 mcg [place] Carbonate ([place] Carbonate 300 Mg Tab) 600 mg PO TID RENU Stop: 10/01/23 20:59 Last Admin: 09/04/23 09:23 Dose: 600 mg Naltrexone HCl (Naltrexone Hcl 50 Mg Tab) 50 mg PO DAILY RENU Stop: 09/30/23 21:59 Last Admin: 09/04/23 09:19 Dose: 50 mg Oral Contraceptive~ Non-Formulary Patient's Own Med 1 each PO DAILY RENU Stop: 10/01/23 11:59 Last Admin: 09/04/23 09:26 Dose: 0.35 mg Olanzapine (Olanzapine 20 Mg Tablet) 20 mg PO HS RENU Stop: 09/30/23 20:59 Last Admin: 09/03/23 22:48 Dose: 20 mg Pantoprazole Sodium (Pantoprazole 40 Mg Tab) 40 mg PO QAM RENU Stop: 09/30/23 08:59 Last Admin: 09/04/23 09:19 Dose: 40 mg Propranolol HCl (Propranolol Hcl 20 Mg Tab) 40 mg PO BID RENU Stop: 09/29/23 22:41 Last Admin: 09/04/23 09:27 Dose: 40 mg Mental Health & Subst Abuse Tx Psychiatrist Name of Psychiatrist: [facility] Ayse Rubio Psychiatrist's Time of Appointment with Psychiatrist: Please resume your normal schedule. Psychiatric Appointment Comment: Telehealth Sales Ambassador Name of Sales Ambassador: Andreea Smith Ayse Mathewshernando Phone Number for Sales Ambassador: [phone] Case Management Appointment Comment: please follow up directly with TOBI garrido Post Discharge Appointments Primary Care Physician Name Of Family Doctor/PCP: Bubba Khoury - Kinsey Chaparro PA-C Primary Care Date of Future Appointment with PCP: 09/11/23 Time of Appointment with PCP: arrival time 11:45 AM Provider Appointment Comment: Yasmani Berumen, [place], [place] [id number] Contact Information Discharge Discharge Address: [address] [place] [id number] (3) Bipolar disorder Active/Remission status: currently active Current bipolar episode type: depressed Psychotic features: with psychotic features
--- NOTE | 2023-09-04 14:28 | Hospitalist Progress Note ---
Date of Service September 04, 2023 Assessment & Plan (1) Suicidal ideation: Plan 22-year-old female with past med significant for hyperprolactinemia, asthma, allergic rhinitis, history of thrombosis of mesenteric vein, portal vein thrombosis, moyamoya disease, GERD, amenorrhea, migraine, thrombocytosis after splenectomy, history of essential hemorrhagic thrombocythemia, hereditary spherocytosis, severe depression with psychotic features,schizo affective disorder, PTSD, borderline personal disorder, eating disorder with history of social ideation comes again with thoughts of hurting herself. She was found to have COVID-19 infection and admitted to medicine service with psychiatry on consult. Suicidal ideation One-on-one observation Suicidal precautions Psychiatry recommended to increase Haldol to 10mg 3 times daily, increase lithium to 600 3 times daily. During my eval she c/o suicidal ideation, but lack of intent, Per Dr. Rivers she chronically has S.I. but its important to focus on lack of intent Elevated liver enzymes AST/ALT/ALP54/183/203 on admission Patient denies any abdominal pain can be drug induced secondary to lithium, naltrexone or doxepin Right upper quadrant ultrasound does not show any gallstone or biliary duct dilation. Improvement in LFTs noted. Follow-up as outpatient. obtain cbc, cmp in a.m. COVID COVID precautions Supportive care History of portal vein thrombosis On [facility] Depression schizo affective disorder PTSD Borderline personality disorder Management as per psychiatry DVT prophylaxis On [facility] Disposition Medical floor. Appreciate psychiatry help for disposition. Full code Pt was seen and examined in collaboration with Dr. Ferguson, please see addendum A total of 40 was spent coordinating, documenting, and providing care for this patient excluding time spent in the performance of separately billed services. This included personally viewing all current laboratories and imaging studies, medication reconciliation, outpatient chart review, and discussion with specialists. Admission and Anticipated Discharge Date Admission Date: August 30, 2023 Supervising Physician Co-Signing Physician Notes Patient was seen and examined at bedside. Patient reports suicidal ideation but lacks intent. COVID vivar she is hemodynamically stable. Discussed with psychiatry, plan to care for today and possible discharge tomorrow. Medically she is stable. On exam, patient on room air, heart/lung/abdomen examination fairly WNL. I have seen and examined the patient and have discussed the case with the provider above. I agree with the assessment and plan as stated. Subjective Pt seen in room 380-1. F/U COVID and suicidal ideation. C/o suicidal ideation, no plan. C/o sinus congestion, dry cough, [place]. Covid sx mild and improving. 1:1 at bedside. Denies f/c/s, chest pain, sob, n/v/d. Review of Systems Review of Systems: All systems reviewed & are unremarkable except as noted in HPI & below Physical Exam Physical Exam: Gen: WD/WN, NAD, A&O x3 HEENT: Normocephalic, atraumatic, conjunctivae moist, sclerae anicteric, mucous membranes moist. Lung: Clear to Auscultation bilaterally, no wheezes/rales/rhonchi Heart: Regular rate, regular rhythm, no murmurs, rubs, or gallops Abdomen: Soft, NT, ND +BS x 4 Extremities: No edema Skin: Warm, no rash, negative turgor. Results & Data Results & Data Vital Signs (Past 12 Hours) Vital Signs Temp Pulse Resp BP BP Pulse Ox O2 Del Method 09/04/23 09:28 76 111/70 09/04/23 07:32 36.7 C 68 18 98/64 L 95 Room Air Medications Administered Current Inpatient Medications Acetaminophen (Acetaminophen 325 Mg Tab) 650 mg PO Q4H PRN PRN Reason: pain/fever Stop: 09/29/23 22:41 Last Admin: 09/01/23 12:33 Dose: 650 mg Apixaban (Apixaban 5 Mg Tablet) 5 mg PO AMHS RENU Stop: 09/29/23 22:41 Last Admin: 09/04/23 09:23 Dose: 5 mg Doxepin HCl (Doxepin Hcl 25 Mg Capsule) 25 mg PO DAILY RENU Stop: 10/01/23 08:59 Last Admin: 09/04/23 09:21 Dose: 25 mg Famotidine (Famotidine 20 Mg Tab) 20 mg PO BID RENU Stop: 09/29/23 22:41 Last Admin: 09/04/23 09:22 Dose: 20 mg Haloperidol (Haloperidol 5 Mg Tab) 7.5 mg PO TID RENU Stop: 10/03/23 20:59 Last Admin: 09/04/23 13:53 Dose: 7.5 mg Levothyroxine Sodium (Levothyroxine Sodium 50 Mcg Tablet) 50 mcg PO DAILYBB RENU Stop: 09/30/23 06:29 Last Admin: 09/04/23 05:34 Dose: 50 mcg [place] Carbonate ([place] Carbonate 300 Mg Tab) 600 mg PO TID RENU Stop: 10/01/23 20:59 Last Admin: 09/04/23 13:53 Dose: 600 mg Naltrexone HCl (Naltrexone Hcl 50 Mg Tab) 50 mg PO DAILY RENU Stop: 09/30/23 21:59 Last Admin: 09/04/23 09:19 Dose: 50 mg Oral Contraceptive~ Non-Formulary Patient's Own Med 1 each PO DAILY RENU Stop: 10/01/23 11:59 Last Admin: 09/04/23 09:26 Dose: 0.35 mg Olanzapine (Olanzapine 20 Mg Tablet) 20 mg PO HS [facility] Stop: 09/30/23 20:59 Last Admin: 09/03/23 22:48 Dose: 20 mg Pantoprazole Sodium (Pantoprazole 40 Mg Tab) 40 mg PO QAM RENU Stop: 09/30/23 08:59 Last Admin: 09/04/23 09:19 Dose: 40 mg Propranolol HCl (Propranolol Hcl 20 Mg Tab) 40 mg PO BID RENU Stop: 09/29/23 22:41 Last Admin: 09/04/23 09:27 Dose: 40 mg
--- NOTE | 2023-09-04 20:13 | Communication Note ---
Date of Service: September 04, 2023 I had a 36-minute phone discussion with pt's Mike about my recommendation for discharge. He and I agreed that she'd had an excessive number of hospitalizations over the past year with a marked tendency for medication changes to be made each time resulting in insufficient time to see any benefit. However, he took this to mean she should have been hospitalized more times while I take it to mean she should be hospitalized less. We discussed her detailed safety plan and my belief that it's important to follow it, [id number], every time vs his belief that the final step is "to call crisis" and that therefore that's always the appropriate thing to do and all the intervening approaches are merely wastes of time. He wondered if her Moyamoya disease (a rare progressive disease of basal gangliar arteries) could be a factor (which, especially as it's a rare condition, I think is completely unanswerable) and whether she should have additional surgery for it (which, given the association between brain injury and depression seemed very unlikely to improve her mood). I suggested the focus should be on the basic approaches that have been shown to work for a majority of patients and recognizing that the only medications we can use are the ones that exist and that there's a limited number of those, so the chances that some highly-effective, rapid-onset medication has been overlooked seems vanishingly small and that therefore using medication consistently and appropriately (including for appropriate durations) is very much more likely to be helpful than trying to find something new.
[2023-09-04] MEDS: OLANZapine 20 MG TABLET PO SCH (21:34)
[2023-09-05] MEDS: LEVOTHYROXINE SODIUM 50 MCG TABLET PO SCH (06:02)
[2023-09-05 08:33] LABS: Basophils # (auto) 0.06 K/uL (0.00-0.20); Basophils % (auto) 0.4 %; Eosinophils # (auto) 0.63 K/uL (0.00-0.50); Eosinophils % (auto) 4.4 %; Hemoglobin 14.9 g/dl (12.0-16.0); Immature Granulocytes # (auto) 0.07 K/uL (0.01-0.20); Immature Granulocytes % (auto) 0.5 %; Lymphocytes # (auto) 3.94 K/uL (1.20-3.40); Lymphocytes % (auto) 27.5 %; Mean Corpuscular Hemoglobin 30.1 pg (25.0-34.0); Mean Corpuscular Hgb Conc 34.7 g/dL (32.0-36.0); Mean Corpuscular Volume 86.9 fL (80.0-100.0); Monocytes # (auto) 1.62 K/uL (0.11-0.59); Monocytes % (auto) 11.3 %; Neutrophils # (auto) 7.99 K/uL (1.40-6.50); Neutrophils % (auto) 55.9 %; Platelet Count 704 K/uL (130-400); RDW Coefficient of Variation 13.2 % (11.5-14.5); RDW Standard Deviation 40.8 fL (36.4-46.3); Red Blood Count 4.95 M/uL (4.20-5.40); White Blood Count 14.31 K/ul (4.8-10.8)
[2023-09-05 08:47] LABS: Albumin Globulin Ratio 1.4 (0.9-2); BUN Creatinine Ratio 10.8 (10-20); Bilirubin,Total 0.6 mg/dl (0.2-1.0); Calcium 9.3 mg/dl (8.6-10.3); Creatinine Clr Calc Pharmacy 118.2 ml/min; Est GFR (African American) 131.4 ml/min; Est GFR (Non-African American) 113.4 ml/min; Globulin 2.8 gm/dl (2.5-4.0); Potassium 3.8 mmol/L (3.5-5.1); Total Protein 6.8 gm/dl (6.0-8.3)
[2023-09-05] MEDS: APIXABAN 5 MG TABLET PO SCH ×2 (09:46→20:18)
[2023-09-05] MEDS: haloperidoL 5 MG TAB PO SCH ×3 (09:47→20:17)
[2023-09-05] MEDS: DOXEPIN HCL 25 MG CAPSULE PO SCH (09:47)
[2023-09-05] MEDS: FAMOTIDINE 20 MG TAB PO SCH ×2 (09:47→21:23)
[2023-09-05] MEDS: NALTREXONE HCL 50 MG TAB PO SCH (09:48)
[2023-09-05] MEDS: CONTRACEPTIVE PO SCH (09:49)
[2023-09-05] MEDS: PANTOprazole 40 MG TAB PO SCH (09:49)
[2023-09-05] MEDS: PROPRANOLOL HCL 20 MG TAB PO SCH ×2 (09:49→20:17)
--- NOTE | 2023-09-05 10:17 | Psychiatric Progress Note ---
Date of Service September 05, 2023 Impression / Recommendations Impression 09/05/2023: This morning's lithium level was 1.7 mmol/L after 4 days on 600 mg TID dose, well above therapeutic and potentially in the toxic range. Since the level was 0.3 mmol/L on 300 mg TID, that means there's been a 467% increase in blood level with a 100% dose increase. This is difficult to explain if she had been taking it as ordered (as she says) but easy to explain if she had not. 09/04/2023: Shortly before I saw pt, she told Dr. Olivarez that she had ongoing suicidal thoughts but no plan or intent. We discussed that, as far as I know, she is never free from suicidal thoughts so we should focus on her lack of plan or intent. When I saw pt, she confirmed that she has no suicidal plan or intent. She doesn't like the "safe tray" she was brought for lunch and says she doesn't need it for safety. She says her mood is "not bad". Pt volunteers that "the voices are back where they were" (before admission and dose increases of haloperidol). She remains unable to describe these voices in any useful way. She reports no adverse effects attributable to the haloperidol. Discussed her desire to increase the dose. I reminded her that she'd just told m kathryn that the voices were now no better than prior to admission despite more than tripling the haloperidol dose, and that at a lower dose she did report ~40% improvement. I would interpret that as showing that higher doses work less well, and that "more medication" might not be helpful at all. We agreed to a cautious increase to 10 mg TID. I discussed the need for outpatient, not inpatient, treatment. I reminded her that very extensive time in hospitals last year doesn't seem to have made any positive difference and that some of the most important treatments (such as DBT) aren't available in hospitals. (Pt said she "thought [she'd] heard of DBT but never did it" when in fact she's been in DBT at least once.) She has a very extensive safety plan that was crafted during a previous admission. Little effort seems to have gone into using it. I told her we will plan for discharge tomorrow. 09/03/2023: Pt reports feeling "better" today in terms of both mood and auditory hallucinations, which she currently rates on her subjective severity scale as 6/10 vs 10/10 at admission. She reports no adverse effects attributable to the haloperidol. Discussed possibly increasing it farther, either to 5 mg QID or to 7.5 mg TID. Pt has chronic, contingent suicidal thoughts. She does act on them at times but does not report ever having been free of them, so the presence of the suicidal thoughts is not a useful predictor in itself of her risk of attempting or completing suicide. Pt has consistently said that she has no suicidal intent and "would not" act on suicidal thoughts. She has reported that "if [she] did anything, it would be to overdose" but again says she "wouldn't do that". I reviewed with pt that she spent more time inpatient last year that outside the hospital, and that I take that as clear evidence that hospitalization itself is of scant benefit given that she presented recently with symptoms. I also pointed out that all the medication adjustments we can do in hospitals can be done at home as well. I told her that the goal should be discharge "in the next day or so". 09/02/2013: [place] was increased from 300 mg TID to 600 mg TID following a blood level of 0.3 mmol/L and haloperidol was increased from 0.5 mg once daily to 0.5 mg TID to reflect the dose she reported having actually received during her very recent hospitalization. Pt complains "they didn't up the Haldol", though I ordered the increase myself yesterday evening, and insists she's had none so far today. She says symptoms are completely unchanged. She does say she has tolerated the increased lithium dose thus far. 09/01/2023: Trough lithium level this morning was 0.3 mmol/L, substantially below the therapeutic range of 0.8-1.2 mmol/L. Pt has been preoccupied with getting "something for the voices", making many requests to staff. In my meeting with pt, she was pleasant, appropriate, and did not appear to be responding to internal stimuli. She spoke of her "need to get the voices under control" but had difficulty articulating details about any current voices. She clarifies that she's "been on doxepin for years and it really helps with sleep". At her most recent psychiatric admission she was on only that and lorazepam; lithium, olanzapine, and haloperidol were started during that stay. She doesn't think olanzapine was very helpful but that haloperidol "used as a PRN worked pretty well", but had to be used 3 times a day consistently. Discussed known risks of typical (i.e., haloperidol) and atypical (i.e., olanzapine) antipsychotics including potentially permanent neurological side effects, metabolic changes including elevated lipids or glucose. Discussed as well that olanzapine could be helpful fairly rapidly as a mood stabilizer while lithium will likely require some time for titration. Pt has taken lithium in the past and was already aware of renal risk, need to avoid dehydration. She even knew that her current blood level of 0.3 mmol/L is very low, though she wasn't sure of the therapeutic range of 0.8 to 1.2 mmol/L. 08/31/2023: 22 y/o F with history of bipolar disorder vs. major depressive disorder, borderline personality disorder, PTSD and numerous psychiatric hospitalizations who presented to the ED 3 days after discharge from an acute psychiatric admission reporting suicidal ruminations with a provisional plan of overdosing on medication but no intent of acting on those thoughts. She has been hospitalized for more days than not over the past year. A significant factor in her presentation to the ED last night seems to be her family's belief that she was "discharged too soon" from the most recent hospitalization. Pt has had access to extensive inpatient and outpatient resources without a sense that much has helped her. She's currently on low-dose doxepin that seems to have been started recently and fairly low-dose lithium. These are, hypothetically, appropriate medications so will continue and titrate them based on tolerability and blood levels. The naltrexone is likely intended for self- injurious behavior. (1) Borderline personality disorder: (2) PTSD (post-traumatic stress disorder): (3) Bipolar disorder: Plan * hold lithium until tomorrow, resume at 300 mg BID & 600 mg QHS - prior to admission medication at 300 mg TID with level of 0.3 mmol/L, increased to 600 mg TID on 09/01 * continue doxepin 25 mg daily (for sleep) - prior to admission medication * continue naltrexone 25 mg daily (to reduce self-injury) - prior to admission medication * continue olanzapine 20 mg QHS - prior to admission medication Suicide Risk Level Suicide Risk Level: Moderate (q15 min suicide checks) (chronic thoughts, denies intent) Risk Factors Assessment Male: No : Yes Do You Have Access To A Gun?: No Health Problems: Yes Mental Health Diagnoses: Yes Substance Use Disorders: No Previous Attempt: Yes Previous Psychiatric Hospitalization: Yes Protective Factors Assessment Responsible for Young Children: No Employed: No Supportive Family: Yes Good Rapport with Provider: Yes Interval History Identifying Information MAKENZIE HILLIARD is a 22-year-old F with a history of multiple hospitalizations, admitted on 08/30/2023 for suicidal ideation. Consult is by the hospitalist service for "suicideal ideation". Pt presented to the ED with psychiatric complaints warranting psychiatric admission but due to positive SARS-CoV-2 screen could not be admitted to the psychiatric unit. Chief Complaint "[]". Subjective Subjective The patient was seen and assessed and interval progress reviewed in a multidisciplinary team meeting with the treatment team and psychiatric liaison nursing and social work. For details, see the "Impression" section. Overall I spent a total of 33 minutes for this consultation follow-up including review of chart records, review of test results, reconciling and ordering medication, risk assessment, discussion during interdisciplinary treatment rounds and with the psychiatric liaison nurse, and documentation in the electronic health record. Physical Exam Psychiatric Orientation: alert, oriented to person, oriented to place and oriented to time Apperance: appropriately dressed and appropriately groomed Eye Contact: + fair eye contact Motor Behavior: no abnormal motor movements Speech: normal rate/rhythm/volume of speech Affect: + constricted affect Mood: + depressed mood Thought Process: + concrete thought process Thought Content: reality based without delusions Suicidal Thoughts: denies suicidal plan and denies suicidal intent (clearly says she "would not" act on thoughts); + reports suicidal thoughts (contingent, vague) Homicidal Thoughts: denies homicidal thoughts Hallucinations: + auditory hallucinations (difficult for pt to describe); no visual hallucinations Cognition: recent memory grossly intact, remote memory grossly intact and attention grossly intact Estimated Intelligence: average estimated intelligence Insight: + limited insight Judgment: + limited judgement Vital Signs (Past 24 Hours) Last Vital Signs Temp 37.1 C 09/05/23 09:45 Pulse 69 09/05/23 09:45 Resp 18 09/05/23 09:45 BP 108/68 09/05/23 09:45 Pulse Ox 98 09/05/23 09:45 O2 Del Method Room Air 09/05/23 09:45 Results & Data ([facility]) Laboratory Results Laboratory Results - last 24 hr 09/05/23 08:16 WBC 14.31 H RBC 4.95 Hgb 14.9 Hct 43.0 MCV 86.9 MCH 30.1 MCHC 34.7 RDW Std Deviation 40.8 RDW Coeff of Toni 13.2 Plt Count 704 H MPV 9.0 L Immature Gran % (Auto) 0.5 Neut % (Auto) 55.9 Lymph % (Auto) 27.5 [place] % (Auto) 11.3 Eos % (Auto) 4.4 Baso % (Auto) 0.4 Neut # (Auto) 7.99 H Lymph # (Auto) 3.94 H [place] # (Auto) 1.62 H Eos # (Auto) 0.63 H Baso # (Auto) 0.06 Immature Gran # (Auto) 0.07 Sodium 135 L Potassium 3.8 Chloride 104 Carbon Dioxide 25 Anion Gap 6 BUN 8 Creatinine 0.74 Est Cr Clr Drug Dosing 118.2 Est GFR ( Amer) 131.4 Est GFR (Non-Af Amer) 113.4 BUN/Creatinine Ratio 10.8 Glucose 87 Calcium 9.3 Total Bilirubin 0.6 AST 17 ALT 36 Alkaline Phosphatase 141 H Total Protein 6.8 Albumin 4.0 Globulin 2.8 Albumin/Globulin Ratio 1.4 [place] 1.7 H Current Inpatient Medications Current Inpatient Medications: Current Inpatient Medications Acetaminophen (Acetaminophen 325 Mg Tab) 650 mg PO Q4H PRN PRN Reason: pain/fever Stop: 09/29/23 22:41 Last Admin: 09/01/23 12:33 Dose: 650 mg Apixaban (Apixaban 5 Mg Tablet) 5 mg PO AMHS RENU Stop: 09/29/23 22:41 Last Admin: 09/05/23 09:46 Dose: 5 mg Doxepin HCl (Doxepin Hcl 25 Mg Capsule) 25 mg PO DAILY RENU Stop: 10/01/23 08:59 Last Admin: 09/05/23 09:47 Dose: 25 mg Famotidine (Famotidine 20 Mg Tab) 20 mg PO BID RENU Stop: 09/29/23 22:41 Last Admin: 09/05/23 09:47 Dose: 20 mg Haloperidol (Haloperidol 5 Mg Tab) 10 mg PO TID RENU Stop: 10/04/23 20:59 Last Admin: 09/05/23 09:47 Dose: 10 mg Levothyroxine Sodium (Levothyroxine Sodium 50 Mcg Tablet) 50 mcg PO DAILYBB RENU Stop: 09/30/23 06:29 Last Admin: 09/05/23 06:02 Dose: 50 mcg [place] Carbonate ([place] Carbonate 300 Mg Tab) 300 mg PO [id number] RENU Stop: 10/06/23 06:59 [place] Carbonate ([place] Carbonate 300 Mg Tab) 600 mg PO HS RENU Stop: 10/05/23 20:59 Naltrexone HCl (Naltrexone Hcl 50 Mg Tab) 50 mg PO DAILY RENU Stop: 09/30/23 21:59 Last Admin: 09/05/23 09:48 Dose: 50 mg Oral Contraceptive~ Non-Formulary Patient's Own Med 1 each PO DAILY RENU Stop: 10/01/23 11:59 Last Admin: 09/05/23 09:49 Dose: 1 mg Olanzapine (Olanzapine 20 Mg Tablet) 20 mg PO HS [facility] Stop: 09/30/23 20:59 Last Admin: 09/04/23 21:34 Dose: 20 mg Pantoprazole Sodium (Pantoprazole 40 Mg Tab) 40 mg PO QAM RENU Stop: 09/30/23 08:59 Last Admin: 09/05/23 09:49 Dose: 40 mg Propranolol HCl (Propranolol Hcl 20 Mg Tab) 40 mg PO BID [facility] Stop: 09/29/23 22:41 Last Admin: 09/05/23 09:49 Dose: 40 mg Mental Health & Subst Abuse Tx Psychiatrist Name of Psychiatrist: Treatful Ayse Rubio Psychiatrist's Time of Appointment with Psychiatrist: Please resume your normal schedule. Psychiatric Appointment Comment: Telehealth Senior Sales Assistant Name of Senior Sales Assistant: Andreea Valdovinos Phone Number for Senior Sales Assistant: [phone] Case Management Appointment Comment: please follow up directly with CM to schedule Post Discharge Appointments Primary Care Physician Name Of Family Doctor/PCP: Bubba Khoury - Kinsey Chaparro PA-C Primary Care Date of Future Appointment with PCP: 09/11/23 Time of Appointment with PCP: arrival time 11:45 AM Provider Appointment Comment: Yasmani Berumen [place], [place] [id number] Contact Information Discharge Discharge Address: [address] [place] [address] (3) Bipolar disorder Active/Remission status: currently active Current bipolar episode type: depressed Psychotic features: with psychotic features
[2023-09-05] MEDS: LITHIUM CARBONATE 300 MG TAB PO SCH (10:20)
--- NOTE | 2023-09-05 14:29 | Hospitalist Progress Note ---
Date of Service September 05, 2023 Assessment & Plan (1) Suicidal ideation: Plan 22-year-old female with past med significant for hyperprolactinemia, asthma, allergic rhinitis, history of thrombosis of mesenteric vein, portal vein thrombosis, moyamoya disease, GERD, amenorrhea, migraine, thrombocytosis after splenectomy, history of essential hemorrhagic thrombocythemia, hereditary spherocytosis, severe depression with psychotic features,schizo affective disorder, PTSD, borderline personal disorder, eating disorder with history of social ideation comes again with thoughts of hurting herself. She was found to have COVID-19 infection and admitted to medicine service with psychiatry on consult. Suicidal ideation One-on-one observation discontinued and she is on q15 min checks Suicidal precautions Psychiatry recommended to increase Haldol to 10mg 3 times daily, increase lithium to 600 3 times daily. [place] level is elevated today at 1.7, Discussed with Dr. Rivers who recommends holding evening dose Plan is to hold lithium dose until tomorrow, resume at 300mg BID and 600mg QHS, obtain lithium level in a.m. Initial plan was to d/c today; however due to lithium level Psych recommends to remain hospitalized During my eval she c/o suicidal ideation, but lack of intent, Per Dr. Rivers she chronically has S.I. but its important to focus on lack of intent Elevated liver enzymes AST/ALT/ALP54/183/203 on admission Patient denies any abdominal pain can be drug induced secondary to lithium, naltrexone or doxepin Right upper quadrant ultrasound does not show any gallstone or biliary duct dilation. Improvement in LFTs noted. Follow-up as outpatient. Elevated [place] level plan as above COVID COVID precautions Supportive care History of portal vein thrombosis On Eliquis Thrombocytosis after splenectomy Depression schizo affective disorder PTSD Borderline personality disorder Management as per psychiatry DVT prophylaxis On Eliquis Disposition Medical floor. Appreciate psychiatry help for disposition. Full code Pt was seen and examined in collaboration with Dr. Ferguson, please see addendum A total of 45 was spent coordinating, documenting, and providing care for this patient excluding time spent in the performance of separately billed services. This included personally viewing all current laboratories and imaging studies, medication reconciliation, outpatient chart review, and discussion with specialists. Admission and Anticipated Discharge Date Admission Date: August 30, 2023 Supervising Physician Co-Signing Physician Notes Patient was seen and examined at bedside. Patient reports suicidal ideation but lacks intent. COVID vivar she is hemodynamically stable. d/t elevated lithium level, holding dc today, lithium dose being adjusted per psych, lithium level in AM. Medically she is stable. On exam, patient on room air, heart/lung/abdomen examination fairly WNL. I have seen and examined the patient and have discussed the case with the provider above. I agree with the assessment and plan as stated. Subjective Pt seen in room 380-1. F/U COVID and suicidal ideation. She feels improved today. She did not eat breakfast due to lack of appetite. She states she has a better appetite at home. She is hopeful for discharge home today. She continues to complain of suicidal ideation, but again lacks intent with no true plan. She continues to have mild sinus congestion and dry cough but is improving. Review of Systems Review of Systems: All systems reviewed & are unremarkable except as noted in HPI & below Physical Exam Physical Exam: Gen: WD/WN, NAD, A&O x3, flat affect HEENT: Normocephalic, atraumatic, conjunctivae moist, sclerae anicteric, mucous membranes moist. Lung: Clear to Auscultation bilaterally, no wheezes/rales/rhonchi Heart: Regular rate, regular rhythm, no murmurs, rubs, or gallops Abdomen: Soft, NT, ND +BS x 4 Extremities: No edema Skin: Warm, no rash, negative turgor. Results & Data Results & Data Vital Signs (Past 12 Hours) Vital Signs Temp Pulse Resp BP Pulse Ox O2 Del Method 09/05/23 09:45 37.1 C 69 18 108/68 98 Room Air Laboratory Results Short CBC 09/05/23 Range/Units 08:16 WBC 14.31 H (4.8-10.8) K/ul Hgb 14.9 (12.0-16.0) g/dl Hct 43.0 (37.0-47.0) % Plt Count 704 H (130-400) K/uL BMP 09/05/23 08:16 Sodium 135 L Potassium 3.8 Chloride 104 Carbon Dioxide 25 BUN 8 Creatinine 0.74 Glucose 87 Calcium 9.3 Liver Function 09/05/23 Range/Units 08:16 Total Bilirubin 0.6 (0.2-1.0) mg/dl AST 17 (13-39) U/L ALT 36 (7-52) U/L Alkaline Phosphatase 141 H (34-104) U/L Albumin 4.0 (3.4-5.0) gm/dl I have independently reviewed and interpreted patient's labs including CBC, CMP, lithium level Medications Administered Current Inpatient Medications Acetaminophen (Acetaminophen 325 Mg Tab) 650 mg PO Q4H PRN PRN Reason: pain/fever Stop: 09/29/23 22:41 Last Admin: 09/01/23 12:33 Dose: 650 mg Apixaban (Apixaban 5 Mg Tablet) 5 mg PO AMHS RENU Stop: 09/29/23 22:41 Last Admin: 09/05/23 09:46 Dose: 5 mg Doxepin HCl (Doxepin Hcl 25 Mg Capsule) 25 mg PO DAILY RENU Stop: 10/01/23 08:59 Last Admin: 09/05/23 09:47 Dose: 25 mg Famotidine (Famotidine 20 Mg Tab) 20 mg PO BID RENU Stop: 09/29/23 22:41 Last Admin: 09/05/23 09:47 Dose: 20 mg Haloperidol (Haloperidol 5 Mg Tab) 10 mg PO TID RENU Stop: 10/04/23 20:59 Last Admin: 09/05/23 13:39 Dose: 10 mg Levothyroxine Sodium (Levothyroxine Sodium 50 Mcg Tablet) 50 mcg PO DAILYBB RENU Stop: 09/30/23 06:29 Last Admin: 09/05/23 06:02 Dose: 50 mcg [place] Carbonate ([place] Carbonate 300 Mg Tab) 300 mg PO [id number] RENU Stop: 10/06/23 06:59 [place] Carbonate ([place] Carbonate 300 Mg Tab) 600 mg PO RENU Stop: 10/06/23 20:59 Naltrexone HCl (Naltrexone Hcl 50 Mg Tab) 50 mg PO DAILY RENU Stop: 09/30/23 21:59 Last Admin: 09/05/23 09:48 Dose: 50 mg Oral Contraceptive~ Non-Formulary Patient's Own Med 1 each PO DAILY RENU Stop: 10/01/23 11:59 Last Admin: 09/05/23 09:49 Dose: 1 mg Olanzapine (Olanzapine 20 Mg Tablet) 20 mg PO REUN Stop: 09/30/23 20:59 Last Admin: 09/04/23 21:34 Dose: 20 mg Pantoprazole Sodium (Pantoprazole 40 Mg Tab) 40 mg PO QAM [facility] Stop: 09/30/23 08:59 Last Admin: 09/05/23 09:49 Dose: 40 mg Propranolol HCl (Propranolol Hcl 20 Mg Tab) 40 mg PO BID [facility] Stop: 09/29/23 22:41 Last Admin: 09/05/23 09:49 Dose: 40 mg
[2023-09-05] MEDS: OLANZapine 20 MG TABLET PO SCH (20:18)
[2023-09-05] MEDS ORDERED: LITHIUM CARBONATE 300 MG TAB PO SCH (21:00)
[2023-09-06] MEDS: LEVOTHYROXINE SODIUM 50 MCG TABLET PO SCH (06:15)
[2023-09-06] MEDS ORDERED: LITHIUM CARBONATE 300 MG TAB PO SCH ×2 (07:00→21:00)
[2023-09-06 07:10] LABS: Hematocrit (blood only) 42.4 % (37.0-47.0); Hemoglobin 14.9 g/dl (12.0-16.0); Mean Corpuscular Hemoglobin 30.1 pg (25.0-34.0); Mean Corpuscular Hgb Conc 35.1 g/dL (32.0-36.0); Mean Corpuscular Volume 85.7 fL (80.0-100.0); Platelet Count 777 K/uL (130-400); RDW Coefficient of Variation 13.2 % (11.5-14.5); RDW Standard Deviation 40.9 fL (36.4-46.3); Red Blood Count 4.95 M/uL (4.20-5.40); White Blood Count 15.12 K/ul (4.8-10.8)
[2023-09-06 07:48] LABS: Calcium 9.5 mg/dl (8.6-10.3)
[2023-09-06 07:54] LABS: BUN Creatinine Ratio 11.5 (10-20); Creatinine Clr Calc Pharmacy 112.1 ml/min; Est GFR (African American) 123.3 ml/min; Est GFR (Non-African American) 106.4 ml/min
--- NOTE | 2023-09-06 08:28 | Psychiatric Progress Note ---
Date of Service September 06, 2023 Impression / Recommendations Impression 09/06/2023: Pt reports that she's "feeling really good", asks if she "can go home today". Says she has some vague suicidal thoughts (which she has at baseline) but that these are not compelling and that she has no suicidal plan or intent. When I ask about "the voices" she seemed initially unsure of what I was asking, then said "those aren't a problem now". Pt noted no adverse effects a ssociated with the supratherapeutic lithium level yesterday. Based on pt's reports of minimal depressed mood, no suicidal plan or intent, and her desire for discharge, in my opinion discharge would be reasonable and appropriate. 09/05/2023: This morning's lithium level was 1.7 mmol/L after 4 days on 600 mg TID dose, well above therapeutic and potentially in the toxic range. Since the level was 0.3 mmol/L on 300 mg TID, that means there's been a 467% increase in blood level with a 100% dose increase. This is difficult to explain if she had been taking it as ordered (as she says) but easy to explain if she had not. 09/04/2023: Shortly before I saw pt, she told Dr. Olivarez that she had ongoing suicidal thoughts but no plan or intent. We discussed that, as far as I know, she is never free from suicidal thoughts so we should focus on her lack of plan or intent. When I saw pt, she confirmed that she has no suicidal plan or intent. She doesn't like the "safe tray" she was brought for lunch and says she doesn't need it for safety. She says her mood is "not bad". Pt volunteers that "the voices are back where they were" (before admission and dose increases of haloperidol). She remains unable to describe these voices in any useful way. She reports no adverse effects attributable to the haloperidol. Discussed her desire to increase the dose. I reminded her that she'd just told me that the voices were now no better than prior to admission despite more than tripling the haloperidol dose, and that at a lower dose she did report ~40% i mprovement. I would interpret that as showing that higher doses work less well, and that "more medication" might not be helpful at all. We agreed to a cautious increase to 10 mg TID. I discussed the need for outpatient, not inpatient, treatment. I reminded her that very extensive time in hospitals last year doesn't seem to have made any positive difference and that some of the most important treatments (such as DBT) aren't available in hospitals. (Pt said she "thought [she'd] heard of DBT but never did it" when in fact she's been in DBT at least once.) She has a very extensive safety plan that was crafted during a previous admission. Little effort seems to have gone into using it. I told her we will plan for discharge tomorrow. 09/03/2023: Pt reports feeling "better" today in terms of both mood and auditory hallucinations, which she currently rates on her subjective severity scale as 6/10 vs 10/10 at admission. She reports no adverse effects attributable to the haloperidol. Discussed possibly increasing it farther, either to 5 mg QID or to 7.5 mg TID. Pt has chronic, contingent suicidal thoughts. She does act on them at times but does not report ever having been free of them, so the presence of the suicidal thoughts is not a useful predictor in itself of her risk of attempting or completing suicide. Pt has consistently said that she has no suicidal intent and "would not" act on suicidal thoughts. She has reported that "if [she] did anything, it would be to overdose" but again says she "wouldn't do that". I reviewed with pt that she spent more time inpatient last year that outside the hospital, and that I take that as clear evidence that hospitalization itself is of scant benefit given that she presented recently with symptoms. I also pointe d out that all the medication adjustments we can do in hospitals can be done at home as well. I told her that the goal should be discharge "in the next day or so". 09/02/2013: [place] was increased from 300 mg TID to 600 mg TID following a blood level of 0.3 mmol/L and haloperidol was increased from 0.5 mg once daily to 0.5 mg TID to reflect the dose she reported having actually received during her very recent hospitalization. Pt complains "they didn't up the Haldol", though I ordered the increase myself yesterday evening, and insists she's had none so far today. She says symptoms are completely unchanged. She does say she has tolerated the increased lithium dose thus far. 09/01/2023: Trough lithium level this morning was 0.3 mmol/L, substantially below the therapeutic range of 0.8-1.2 mmol/L. Pt has been preoccupied with getting "something for the voices", making many requests to staff. In my meeting with pt, she was pleasant, appropriate, and did not appear to be responding to internal stimuli. She spoke of her "need to get the voices under control" but had difficulty articulating details about any current voices. She clarifies that she's "been on doxepin for years and it really helps with sleep". At her most recent psychiatric admission she was on only that and lorazepam; lithium, olanzapine, and haloperidol were started during that stay. She doesn't think olanzapine was very helpful but that haloperidol "used as a PRN worked pretty well", but had to be used 3 times a day consistently. Discussed known risks of typical (i.e., haloperidol) and atypical (i.e., olanzapine) antipsychotics including potentially permanent neurological side effects, metabolic changes including elevated lipids or glucose. Discussed as well that olanzapine could be helpful fairly rapidly as a mood stabilizer while lithium will likely require some time for titration. Pt has taken lithium in the past and was already aware of renal risk, need to avoid dehydration. She even knew that her current blood level of 0.3 mmol/L is very low, though she wasn't sure of the therapeutic range of 0.8 to 1.2 mmol/L. 08/31/2023: 22 y/o F with history of bipolar disorder vs. major depressive disorder, borderline personality disorder, PTSD and numerous psychiatric hospitalizations who presented to the ED 3 days after discharge from an acute psychiatric admission reporting suicidal ruminations with a provisional plan of overdosing on medication but no intent of acting on those thoughts. She has been hospitalized for more days than not over the past year. A significant factor in her presentation to the ED last night seems to be her family's belief that she was "discharged too soon" from the most recent hospitalization. Pt has had access to extensive inpatient and outpatient resources without a sense that much has helped her. She's currently on low-dose doxepin that seems to have been started recently and fairly low-dose lithium. These are, hypothetically, appropriate medications so will continue and titrate them based on tolerability and blood levels. The naltrexone is likely intended for self- injurious behavior. (1) Borderline personality disorder: (2) PTSD (post-traumatic stress disorder): (3) Bipolar disorder: Plan * psychiatrically appropriate for discharge today * continue lithium 300 mg BID & 600 mg QHS - prior to admission medication at 300 mg TID with level of 0.3 mmol/L, increased to 600 mg TID on 09/01 resulting in level of 1.7 mmol/L * continue doxepin 25 mg daily (for sleep) - prior to admission medication * continue naltrexone 25 mg daily (to reduce self-injury) - prior to admission medication * continue olanzapine 20 mg QHS - prior to admission medication Suicide Risk Level Suicide Risk Level: Moderate (q15 min suicide checks) (chronic thoughts, denies intent) Risk Factors Assessment Male: No : Yes Do You Have Access To A Gun?: No Health Problems: Yes Mental Health Diagnoses: Yes Substance Use Disorders: No Previous Attempt: Yes Previous Psychiatric Hospitalization: Yes Protective Factors Assessment Responsible for Young Children: No Employed: No Supportive Family: Yes Good Rapport with Provider: Yes Interval History Identifying Information MAKENZIE HILLIARD is a 22-year-old F with a history of multiple hospitalizations, admitted on 08/30/2023 for suicidal ideation. Consult is by the hospitalist service for "suicideal ideation". Pt presented to the ED with psychiatric complaints warranting psychiatric admission but due to positive SARS-CoV-2 screen could not be admitted to the psychiatric unit. Chief Complaint "I'm feeling pretty good". Subjective Subjective The patient was seen and assessed and interval progress reviewed in a multidisciplinary team meeting with the treatment team and psychiatric liaison nursing and social work. For details, see the "Impression" section. Overall I spent a total of 39 minutes for this consultation follow-up including review of chart records, review of test results, direct evaluation of the patient [id number], counseling the patient, medication education with the patient, risk assessment, discussion during interdisciplinary treatment rounds and with the psychiatric liaison nurse, and documentation in the electronic health record. Physical Exam Psychiatric Orientation: alert, oriented to person, oriented to place and oriented to time Apperance: appropriately dressed and appropriately groomed Eye Contact: + fair eye contact Motor Behavior: no abnormal motor movements Speech: normal rate/rhythm/volume of speech Affect: + constricted affect Mood: + depressed mood Thought Process: + concrete thought process Thought Content: reality based without delusions Suicidal Thoughts: denies suicidal plan and denies suicidal intent (clearly says she "would not" act on thoughts); + reports suicidal thoughts (contingent, vague) Homicidal Thoughts: denies homicidal thoughts Hallucinations: + auditory hallucinations (difficult for pt to describe); no visual hallucinations Cognition: recent memory grossly intact, remote memory grossly intact and attention grossly intact Estimated Intelligence: average estimated intelligence Insight: + limited insight Judgment: + limited judgement Vital Signs (Past 24 Hours) Last Vital Signs Temp 37.1 C 09/05/23 20:13 Pulse 61 09/05/23 20:13 Resp 16 09/05/23 20:13 BP 98/66 L 09/05/23 15:58 Pulse Ox 95 09/05/23 20:13 O2 Del Method Room Air 09/05/23 20:13 Results & Data ([facility]) Laboratory Results Laboratory Results - last 24 hr 09/05/23 09/06/23 08:16 06:45 WBC 14.31 H 15.12 H RBC 4.95 4.95 Hgb 14.9 14.9 Hct 43.0 42.4 MCV 86.9 85.7 MCH 30.1 30.1 MCHC 34.7 35.1 RDW Std Deviation 40.8 40.9 RDW Coeff of Toni 13.2 13.2 Plt Count 704 H 777 H MPV 9.0 L 9.0 L Immature Gran % (Auto) 0.5 Neut % (Auto) 55.9 Lymph % (Auto) 27.5 [place] % (Auto) 11.3 Eos % (Auto) 4.4 Baso % (Auto) 0.4 Neut # (Auto) 7.99 H Lymph # (Auto) 3.94 H [place] # (Auto) 1.62 H Eos # (Auto) 0.63 H Baso # (Auto) 0.06 Immature Gran # (Auto) 0.07 Sodium 135 L 137 Potassium 3.8 4.0 Chloride 104 106 Carbon Dioxide 25 23 Anion Gap 6 8 BUN 8 9 Creatinine 0.74 0.78 Est Cr Clr Drug Dosing 118.2 112.1 Est GFR ( Amer) 131.4 123.3 Est GFR (Non-Af Amer) 113.4 106.4 BUN/Creatinine Ratio 10.8 11.5 Glucose 87 90 Calcium 9.3 9.5 Total Bilirubin 0.6 AST 17 ALT 36 Alkaline Phosphatase 141 H Total Protein 6.8 Albumin 4.0 Globulin 2.8 Albumin/Globulin Ratio 1.4 [place] 1.7 H Pending Current Inpatient Medications Current Inpatient Medications: Current Inpatient Medications Acetaminophen (Acetaminophen 325 Mg Tab) 650 mg PO Q4H PRN PRN Reason: pain/fever Stop: 09/29/23 22:41 Last Admin: 09/01/23 12:33 Dose: 650 mg Apixaban (Apixaban 5 Mg Tablet) 5 mg PO AMHS RENU Stop: 09/29/23 22:41 Last Admin: 09/05/23 20:18 Dose: 5 mg Doxepin HCl (Doxepin Hcl 25 Mg Capsule) 25 mg PO DAILY RENU Stop: 10/01/23 08:59 Last Admin: 09/05/23 09:47 Dose: 25 mg Famotidine (Famotidine 20 Mg Tab) 20 mg PO BID RENU Stop: 09/29/23 22:41 Last Admin: 09/05/23 21:23 Dose: 20 mg Haloperidol (Haloperidol 5 Mg Tab) 10 mg PO TID RENU Stop: 10/04/23 20:59 Last Admin: 09/05/23 20:17 Dose: 10 mg Levothyroxine Sodium (Levothyroxine Sodium 50 Mcg Tablet) 50 mcg PO DAILYBB RENU Stop: 09/30/23 06:29 Last Admin: 09/06/23 06:15 Dose: 50 mcg [place] Carbonate ([place] Carbonate 300 Mg Tab) 300 mg PO [id number] RENU Stop: 10/06/23 06:59 Last Admin: 09/06/23 06:15 Dose: 300 mg [place] Carbonate ([place] Carbonate 300 Mg Tab) 600 mg PO HS RENU Stop: 10/06/23 20:59 Naltrexone HCl (Naltrexone Hcl 50 Mg Tab) 50 mg PO DAILY RENU Stop: 09/30/23 21:59 Last Admin: 09/05/23 09:48 Dose: 50 mg Oral Contraceptive~ Non-Formulary Patient's Own Med 1 each PO DAILY RENU Stop: 10/01/23 11:59 Last Admin: 09/05/23 09:49 Dose: 1 mg Olanzapine (Olanzapine 20 Mg Tablet) 20 mg PO HS RENU Stop: 09/30/23 20:59 Last Admin: 09/05/23 20:18 Dose: 20 mg Pantoprazole Sodium (Pantoprazole 40 Mg Tab) 40 mg PO QAM RENU Stop: 09/30/23 08:59 Last Admin: 09/05/23 09:49 Dose: 40 mg Propranolol HCl (Propranolol Hcl 20 Mg Tab) 40 mg PO BID RENU Stop: 09/29/23 22:41 Last Admin: 09/05/23 20:17 Dose: 40 mg Mental Health & Subst Abuse Tx Psychiatrist Name of Psychiatrist: ncyclo Ayse Rubio Psychiatrist's Time of Appointment with Psychiatrist: Please resume your normal schedule. Psychiatric Appointment Comment: Telehealth Manager Domestic Name of Manager Domestic: Andreea Valdovinos Phone Number for Manager Domestic: [phone] Case Management Appointment Comment: please follow up directly with CM to schedule Post Discharge Appointments Primary Care Physician Name Of Family Doctor/PCP: Bubba Khoury - [facility] Date of Future Appointment with PCP: 09/11/23 Time of Appointment with PCP: arrival time 11:45 AM Provider Appointment Comment: Yasmani Berumen, [place], [place] [id number] Contact Information Discharge Discharge Address: [address] [place], [place] [id number] (3) Bipolar disorder Active/Remission status: currently active Current bipolar episode type: depressed Psychotic features: with psychotic features
[2023-09-06] MEDS: PANTOprazole 40 MG TAB PO SCH (08:57)
[2023-09-06] MEDS: APIXABAN 5 MG TABLET PO SCH (08:58)
[2023-09-06] MEDS: NALTREXONE HCL 50 MG TAB PO SCH (08:58)
[2023-09-06] MEDS: PROPRANOLOL HCL 20 MG TAB PO SCH (08:58)
[2023-09-06] MEDS: DOXEPIN HCL 25 MG CAPSULE PO SCH (08:58)
[2023-09-06] MEDS: haloperidoL 5 MG TAB PO SCH (08:59)
[2023-09-06] MEDS: CONTRACEPTIVE PO SCH (09:00)
[2023-09-06] MEDS: FAMOTIDINE 20 MG TAB PO SCH (10:12)
--- NOTE | 2023-09-06 10:28 | Discharge Summary ---
Discharge Summary Date of Service September 06, 2023 Notes For Next Care Provider Suicidal ideation back to baseline, per psych. Close psychiatry follow-up. Medication Changes From Visit [place] 300mg in morning and afternoon and then increased to 600mg at night. Haldol 10mg three times a day. Admission HPI Per Admitting Provider 22-year-old female with past med history significant for hyperprolactinemia, asthma, allergic rhinitis, history of thrombosis of mesenteric vein, portal vein thrombosis, moyamoya disease, GERD, amenorrhea, migraine, thrombocytosis after splenectomy, history of essential hemorrhagic thrombocythemia, hereditary spherocytosis, severe depression with psychotic features,schizo affective disorder, PTSD, borderline personal disorder, eating disorder with history of social ideation comes again with thoughts of hurting herself. She still had thoughts to hurt herself. Last 2 days she is having some runny nose, sore throat and cough. Denies any fevers. Has some headache. No body aches. No nausea. No chest pain or shortness of breath. No abdominal pain. Somewhat constipated. Normal bladder movements. Resting comfortably. Past med history. As mentioned above Past surgical history. Fusion of skull arteries. Nasal surgery. Splenectomy. Spinal puncture drainage. Stereotactic cranial intradural navigation. Vertebral artery catheter placement. Social history. . No smoking. alcohol occasional. No drug use. Family history. Father had allergy rhinitis. Mother is allergies. Maternal grandfather had CAD. Maternal grandmother had dementia. Admission Exam Per Admitting Provider General- Not in distress Head- atraumatic Eyes- EOMI ENT- oropharynx clear Neck- supple, no JVD. Lungs- clear to auscultation no wheezing or crackles. Heart- regular rhythm; no murmur, no gallop. Abdomen- normal bowel sounds, soft, nontender, no distension. Extremities- no pretibial edema, no erythema. Neuro- alert, oriented x 3; EOMI; no facial palsy; no dysarthria; moves extremities Principal Dx & Hospital Course #1 = Principal Diagnosis (1) Suicidal ideation: (2) COVID: Plan This is a 22-year-old female with past med significant for hyperprolactinemia, asthma, allergic rhinitis, history of thrombosis of mesenteric vein, portal vein thrombosis, moyamoya disease, GERD, amenorrhea, migraine, thrombocytosis after splenectomy, history of essential hemorrhagic thrombocythemia, hereditary spherocytosis, severe depression with psychotic features,schizo affective disorder, PTSD, borderline personal disorder, eating disorder with history of social ideation comes again with thoughts of hurting herself. Psychiatry following and feels that she is back to baseline and okay from psychiatry's perspective to discharge home with close outpatient psychiatry follow up, which she has early next week. No suicidal plan or intent. Psychiatry recommended to increase Haldol to 10mg 3 times daily as well as increasing lithium to 300 BID and 600mg HS. Liver enzymes elevated but no abdominal pain and felt to be drug induced 2/2 lithium, naltrexone or doxepin. Right upper quadrant ultrasound does not show any gallstone or biliary duct dilation. Recommend follow up CMP with PCP for continued monitoring. Notable intermittent leukocytosis during admission, which patient states is chronic. No new infectious signs or symptoms. Recommend follow-up CBC with PCP for continued monitoring. On admission, she was tested positive for COVID-19 infection and feels well with supportive care. Recommend continued masking while at close distance with family members. Feels comfortable and hemodynamically stable at time of discharge home. Discharge Exam Please see Dr. Tillman's addendum for physical exam. Updated Medication List Medication Instructions Recorded Confirmed Type apixaban 5 mg tablet (Eliquis) 5 mg PO AMHS 07/27/22 08/30/23 History propranolol 40 mg tablet 40 mg PO BID 07/27/22 08/30/23 History famotidine 20 mg tablet 20 mg PO BID 10/13/22 08/30/23 History galcanezumab-gnlm 120 mg/mL 120 mg subcut MONTHLY 01/23/23 08/30/23 History subcutaneous pen injector (Emgality Pen) omeprazole 40 mg capsule,delayed 40 mg PO QAM 01/23/23 08/30/23 History release levothyroxine 50 mcg tablet 50 mcg PO DAILY 04/08/23 08/30/23 History norethindrone (contraceptive) 0.35 0.35 mg PO DAILY 04/11/23 08/30/23 History mg tablet doxepin 25 mg capsule 25 mg PO DAILY 08/30/23 08/30/23 History naltrexone 50 mg tablet 25 mg PO 1XD 08/30/23 08/30/23 History olanzapine 20 mg tablet 20 mg PO 1XD HS 08/30/23 08/30/23 History haloperidol 10 mg tablet 10 mg PO TID #90 tabs 09/06/23 Rx lithium carbonate 300 mg tablet 300 mg PO DIRECTED #120 tabs 09/06/23 Rx Hospital Stay Data Consultations 08/30/23 22:42 Consult Psychiatry Routine Diagnostic Imagining Performed 08/31/23 11:45 liver Routine Pending Results Patient Have Any Pending Studies at Discharge: Yes Discharge Instructions Given to Patient (Per Discharging Provider) MEDICATION CHANGES: Take [place] 300mg in morning and afternoon and then increased to 600mg at night. Take Haldol 10mg three times a day. PENDING TEST RESULTS: None RECOMMENDATIONS FOR FOLLOW-UP: Follow up with PCP as scheduled. Will need to follow up on liver enzymes (repeat CMP) and CBC for elevated white blood cell count (15K on discharge) Follow up with psychiatry for continued management of care and lithium level monitoring. Continue medication regimen as scheduled aside from changes noted above. OTHER INSTRUCTIONS: Seek medical attention if you have: * temperature above 101 * chest pain or trouble breathing * abdominal pain, nausea, vomiting * diarrhea, dark stools or bloody stools * any unanswered questions or concerns Call 911 if symptoms are severe. Please take good care of yourself. Call if you have any questions or problems. You can reach a [facility] hospitalist on duty at 24 hours a day by calling [phone]. Total Time Total Time Spent Total Time Spent (In Minutes): 40 Supervising Physician Co-Signing Physician Notes I have seen and examined the patient and have discussed the case with the provider above. I agree with the assessment and plan as stated. Primo,
== END 2023-09-06 11:40 | disposition home or self-care (01) | DRG 177 ==
LOC: ED 17:27 → SUATTDRO 20:29 → EDINP 20:29 → 3N 09-03 16:40

== ENCOUNTER 2023-12-09 19:24 | Inpatient (IN) ==
[2023-12-09 20:26] LABS: Basophils # (auto) 0.08 K/uL (0.00-0.20); Basophils % (auto) 0.5 %; Eosinophils # (auto) 0.34 K/uL (0.00-0.50); Hematocrit (blood only) 34.8 % (37.0-47.0); Hemoglobin 12.2 g/dl (12.0-16.0); Immature Granulocytes # (auto) 0.06 K/uL (0.01-0.20); Immature Granulocytes % (auto) 0.4 %; Lymphocytes # (auto) 3.31 K/uL (1.20-3.40); Lymphocytes % (auto) 19.5 %; Mean Corpuscular Hemoglobin 31.9 pg (25.0-34.0); Mean Corpuscular Hgb Conc 35.1 g/dL (32.0-36.0); Mean Corpuscular Volume 90.9 fL (80.0-100.0); Mean Platelet Volume 8.9 fL (9.4-12.4); Monocytes # (auto) 2.34 K/uL (0.11-0.59); Monocytes % (auto) 13.8 %; Neutrophils # (auto) 10.84 K/uL (1.40-6.50); Neutrophils % (auto) 63.8 %; Platelet Count 623 K/uL (130-400); RDW Coefficient of Variation 13.3 % (11.5-14.5); Red Blood Count 3.83 M/uL (4.20-5.40); White Blood Count 16.97 K/ul (4.8-10.8)
[2023-12-09 20:45] LABS: Albumin Globulin Ratio 1.8 (0.9-2); Albumin Level 4.2 gm/dl (3.4-5.0); BUN Creatinine Ratio 11.1 (10-20); Bilirubin,Total 0.7 mg/dl (0.2-1.0); Calcium 9.6 mg/dl (8.6-10.3); Creatinine Clr Calc Pharmacy 82.5 ml/min; Est GFR (Non-African American) 88.9 ml/min; Globulin 2.3 gm/dl (2.5-4.0); Magnesium 2.1 mg/dl (1.7-2.4); Potassium 3.7 mmol/L (3.5-5.1); Total Protein 6.5 gm/dl (6.0-8.3)
[2023-12-09 20:49] LABS: Pregnancy Test, Serum Negative (Negative)
[2023-12-09 20:52] LABS: Troponin I High Sensitivity 2.8 pg/ml (0-14)
--- NOTE | 2023-12-09 20:53 | Emergency Department Note ---
Impression & Plan Seizure-like activity, Hx of craniotomy ED Provider Note NAME: MAKENZIE HILLIARD AGE: 23 SEX: Female INFORMANT: Patient and EMS ED PROVIDER(S): Sandeep Díaz MD CHIEF COMPLAINT: Seizure PLAN: Disposition: Admitted Outpatient prescription management: none Referral: None MEDICAL DECISION MAKING: Patient presented due to seizure-like activity. Second visit for today. Patient was placed in seizure precautions on arrival. She noted a mild headache that was there since the seizure but none prior. Patient was alert and oriented without any focal findings. Imaging done earlier today was negative. Given her anticoagulation history, recurrent seizure, and history of craniotomy recurrent CT imaging was ordered. Blood work ordered as well. Patient was found to have a leukocytosis again on CBC albeit somewhat higher. No fever or symptoms to suggest infection. Possibly due to demargination with seizure-like activity. She underwent head CT imaging which did not show any acute changes. Patient's ECG did not show any acute findings either nor did cardiac monitoring. No recurrent seizure activity while in the ER. Consultation was placed with Dr. Rene of [facility] neurology. Case discussed and diagnostics were reviewed. He recommended having the patient admitted for further monitoring, testing and neurology consultation. He did recommend EEG, MRI, holding bupropion, and CT angiography. CT angiography was ordered. Consultation was placed with the [facility] hospitalist. I discussed the case and neurology consultation with . He well-evaluated the patient in the emergency department and admit her for further management. Patient's urinalysis did come back abnormal after medicine consultation. Did contact medicine and Dr. Dorado will order appropriate treatment. Care/management discussed with: visual manager Level of care consideration(s): After review of the information above and other included data, I feel the patient requires escalation of care to admission Triage Nursing notes: reviewed and agree them. Vital Signs: reviewed and remarkable for no significant abnormalities Additional History obtained from: none Chronic Medical/Social Conditions affecting care: History of craniotomy, asplenia, portal vein thrombus Prior/ Outside/ External records reviewed: none Differential Diagnosis: Epilepsy, infection, hypoglycemia, electrolyte abnormalities, cardiac sources, intracerebral event, trauma, toxicologic, neurologic, syncope, as well as other pathologies. Diagnostics, independently interpreted by me: ECG: Twelve-lead ECG reveals normal sinus rhythm at 91 bpm. Incomplete right bundle branch block. None specific ST-T Cardiac Monitoring: Cardiac monitoring ordered by me: The patient was placed on continuous cardiac monitoring and observed. It revealed a normal sinus rhythm at 85 beats per minute without ectopy or evidence of dysrhythmia. Medical decision rules: none Imaging studies: I refer you to the EMR for further details. HPI: 23 year old Female arrives for evaluation of seizure-like activity. Patient was seen in the ER earlier today for an episode of possible seizure versus syncope. Workup at that time was negative. Patient stated that she was doing well and went home. She had an episode today that was witnessed by her [id number] and it was reported that she was shaking on the floor which lasted for about 3 minutes. Patient had some postictal like behavior for 3 minutes afterwards. There is no incontinence or tongue biting. Patient has no recollection of the event. Since the seizure she does note a mild headache. She feels some tingling in the tips of her right third fourth and fifth digit. Denies feeling like she suffered an injury from the event. Pt denies fevers, chills, diaphoresis, visual changes, neck pain, chest pain, breathing difficulties, nausea, vomiting, abdominal pain, back pain, melena, hematochezia, urinary symptoms, weakness, lymphadenopathy, rash, or other complaints. PAST MEDICAL HISTORY: See Below, moyamoya, PTSD, MDD, asplenia PAST SURGICAL HISTORY: See Below, craniotomy SOCIAL HISTORY: See Below, non-smoker HOME MEDICATIONS: See Below ALLERGIES: See Below VITALS: See Below PHYSICAL EXAMINATION: GENERAL: Awake, alert, nontoxic appearing, in no distress HENT: Normocephalic, atraumatic. Oropharynx unremarkable. EYES: Normal conjunctiva. Sclera non-icteric. PERRLA. EOMI. NECK: Inspection normal. Non-tender. Supple. No nuchal rigidity. FROM. No masses. RESPIRATORY: Clear to auscultation. No wheezes. No rales. Normal respiratory effort. CARDIAC: Normal rate. Normal rhythm. No murmurs. No rubs. Extremities warm and well perfused. Pulses equal. No JVD. GI: Soft, non-distended. No tenderness to palpation. No rebound or guarding. No masses. RECTAL: Deferred. MUSCULOSKELETAL: Atraumatic. Chest examination reveals no tenderness. The back is symmetrical on inspection without obvious abnormality. There is no CVA tenderness to palpation. No joint edema. LOWER EXTREMITIES: Calves are equal size bilaterally and non-tender. No edema. No discoloration. NEURO: Normal sensorium. No sensory or motor deficits noted. Speech normal. Cranial nerves II through XII intact. SKIN: No rash or jaundice noted. PROCEDURES: none CRITICAL CARE: none OBSERVATION NOTE: none Past Med/Surg History Medical History Suicidal ideation Auditory hallucinations Spherocytosis Involuntary commitment Depression with suicidal ideation MDD (major depressive disorder), recurrent, severe, with psychosis Depression with suicidal ideation Eating disorder, unspecified Suicidal ideation Major depressive disorder with psychotic features Major depression Thrombocytosis Intermittent asthma PTSD (post-traumatic stress disorder) Portal vein thrombosis Superior mesenteric vein thrombosis Asplenia Brock brock disease Surgical History History of splenectomy Family History Denies family history of Coronary heart disease Social History Smoking Status: Never smoker Second Hand Exposure: No; Do You Dip or Chew Tobacco: No; Tobacco Cessation Education Requested by Patient: No Hx Alcohol Use: No Hx Substance Use: No Preferred Language: Greenlandic Communication Ability: Effective Supply Chain Systems 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 Required: No Beliefs That Will Affect Care: None marital status: Current Living Situation: Spouse and Family How many Children do You have: 0 Other Information That Helps Us Care for You: No Feels Safe at Home: Yes Safety Concerns: Feels Safe At This Time Gender Identity: Female Assistive Devices: None Allergies Allergies Allergy/AdvReac Type Severity Reaction Status Date / Time vancomycin Allergy Intermediate Red/Itchy Verified 12/09/23 20:24 skin Home Meds Home Medications Medication Instructions Recorded Confirmed apixaban 5 mg tablet (Eliquis) 5 mg PO AMHS 07/27/22 12/09/23 propranolol 40 mg tablet 40 mg PO BID 07/27/22 12/09/23 famotidine 20 mg tablet 20 mg PO BID 10/13/22 12/09/23 omeprazole 40 mg capsule,delayed 40 mg PO QAM 01/23/23 12/09/23 release levothyroxine 50 mcg tablet 50 mcg PO DAILY 04/08/23 12/09/23 norethindrone (contraceptive) 0.35 0.35 mg PO DAILY 04/11/23 12/09/23 mg tablet doxepin 25 mg capsule 25 mg PO HS 08/30/23 12/09/23 naltrexone 50 mg tablet 50 mg PO DAILY 08/30/23 12/09/23 olanzapine 20 mg tablet 20 mg PO DAILY 08/30/23 12/09/23 benztropine 0.5 mg tablet 0.5 mg PO BID 12/09/23 12/09/23 bupropion HCl 150 mg 24 hr tablet, 150 mg PO BID 12/09/23 12/09/23 extended release gabapentin 300 mg capsule 300 mg PO TID 12/09/23 12/09/23 haloperidol 10 mg tablet 10 mg PO BID 12/09/23 12/09/23 lithium carbonate 300 mg tablet 300 mg PO BID 12/09/23 12/09/23 lithium carbonate 600 mg capsule 600 mg PO HS 12/09/23 12/09/23 Results & Data (ED) Vital Signs Vital Signs - 24 hr 12/09/23 19:29 12/09/23 19:29 12/09/23 19:29 Temperature 36.9 C 36.9 C Temperature Source Oral Oral Pulse Rate 92 H Pulse Rate [Finger] Pulse Rate from SpO2 Sensor Pulse Rhythm Regular Pulse Strength Normal Respiratory Rate 19 Respiratory Effort / Characteristics Non-Labored Spontaneous Respiratory Depth Normal Respiratory Pattern Regular Blood Pressure 137/95 Blood Pressure [Left Arm] Blood Pressure Mean 109 Blood Pressure Mean [Left Arm] Blood Pressure Position Semi-fowlers Pulse Oximetry 98 98 98 Oxygen Delivery Method Room Air Room Air Room Air Sepsis Recent Fever Within 48 Hours No Sepsis New/Unexplained Change in Mental Status N/A Sepsis Action Taken by Nursing No Action Required 12/09/23 19:30 12/09/23 19:33 12/09/23 19:56 Temperature Temperature Source Pulse Rate 96 H 90 Pulse Rate [Finger] Pulse Rate from SpO2 Sensor 97 H Pulse Rhythm Pulse Strength Respiratory Rate 21 Respiratory Effort / Characteristics Respiratory Depth Respiratory Pattern Blood Pressure 137/95 Blood Pressure [Left Arm] Blood Pressure Mean 109 Blood Pressure Mean [Left Arm] Blood Pressure Position Pulse Oximetry 97 98 Oxygen Delivery Method Room Air Sepsis Recent Fever Within 48 Hours Sepsis New/Unexplained Change in Mental Status Sepsis Action Taken by Nursing 12/09/23 20:00 12/09/23 20:30 12/09/23 21:00 Temperature Temperature Source Pulse Rate 84 82 93 H Pulse Rate [Finger] Pulse Rate from SpO2 Sensor 86 82 93 H Pulse Rhythm Pulse Strength Respiratory Rate 16 17 15 Respiratory Effort / Characteristics Respiratory Depth Respiratory Pattern Blood Pressure 132/85 124/77 114/75 Blood Pressure [Left Arm] Blood Pressure Mean 100 92 88 Blood Pressure Mean [Left Arm] Blood Pressure Position Pulse Oximetry 96 94 96 Oxygen Delivery Method Room Air Room Air Room Air Sepsis Recent Fever Within 48 Hours Sepsis New/Unexplained Change in Mental Status Sepsis Action Taken by Nursing 12/09/23 21:30 12/09/23 22:00 12/09/23 22:30 Temperature Temperature Source Pulse Rate 87 90 89 Pulse Rate [Finger] Pulse Rate from SpO2 Sensor 87 90 88 Pulse Rhythm Pulse Strength Respiratory Rate 22 17 22 Respiratory Effort / Characteristics Respiratory Depth Respiratory Pattern Blood Pressure 94/55 L 94/55 L 94/57 L Blood Pressure [Left Arm] Blood Pressure Mean 68 68 69 Blood Pressure Mean [Left Arm] Blood Pressure Position Pulse Oximetry 95 96 96 Oxygen Delivery Method Room Air Room Air Room Air Sepsis Recent Fever Within 48 Hours Sepsis New/Unexplained Change in Mental Status Sepsis Action Taken by Nursing 12/09/23 23:04 12/09/23 23:37 Temperature Temperature Source Pulse Rate 87 Pulse Rate [Finger] 83 Pulse Rate from SpO2 Sensor Pulse Rhythm Pulse Strength Respiratory Rate 18 Respiratory Effort / Characteristics Respiratory Depth Normal Respiratory Pattern Blood Pressure Blood Pressure [Left Arm] 103/59 L Blood Pressure Mean Blood Pressure Mean [Left Arm] 73 Blood Pressure Position Pulse Oximetry 96 Oxygen Delivery Method Room Air Sepsis Recent Fever Within 48 Hours Sepsis New/Unexplained Change in Mental Status Sepsis Action Taken by Nursing Laboratory Data 12/09/23 19:45 12/09/23 19:45 Lab Results 12/09/23 12/09/23 Range/Units 19:45 23:49 WBC 16.97 H (4.8-10.8) K/ul RBC 3.83 L (4.20-5.40) M/uL Hgb 12.2 (12.0-16.0) g/dl Hct 34.8 L (37.0-47.0) % MCV 90.9 (80.0-100.0) fL MCH 31.9 (25.0-34.0) pg MCHC 35.1 (32.0-36.0) g/dL RDW Std Deviation 44.0 (36.4-46.3) fL RDW Coeff of Toni 13.3 (11.5-14.5) % Plt Count 623 H (130-400) K/uL MPV 8.9 L (9.4-12.4) fL Immature Gran % (Auto) 0.4 % Neut % (Auto) 63.8 % Lymph % (Auto) 19.5 % Will % (Auto) 13.8 % Eos % (Auto) 2.0 % Baso % (Auto) 0.5 % Neut # (Auto) 10.84 H (1.40-6.50) K/uL Lymph # (Auto) 3.31 (1.20-3.40) K/uL Will # (Auto) 2.34 H (0.11-0.59) K/uL Eos # (Auto) 0.34 (0.00-0.50) K/uL Baso # (Auto) 0.08 (0.00-0.20) K/uL Immature Gran # (Auto) 0.06 (0.01-0.20) K/uL Sodium 138 (136-145) mmol/L Potassium 3.7 (3.5-5.1) mmol/L Chloride 106 (98-107) mmol/L Carbon Dioxide 25 (21-32) mmol/L Anion Gap 7 (3-11) BUN 10 (6-23) mg/dl Creatinine 0.90 (0.6-1.2) mg/dl Est Cr Clr Drug Dosing 82.5 ml/min Est GFR ( Amer) 103.0 ml/min Est GFR (Non-Af Amer) 88.9 ml/min BUN/Creatinine Ratio 11.1 (10-20) Glucose 81 (70-99(Fasting)) mg/dl Calcium 9.6 (8.6-10.3) mg/dl Magnesium 2.1 (1.7-2.4) mg/dl Total Bilirubin 0.7 (0.2-1.0) mg/dl AST 19 (13-39) U/L ALT 41 (7-52) U/L Alkaline Phosphatase 110 H (34-104) U/L Troponin I High Sens 2.8 (0-14) pg/ml Total Protein 6.5 (6.0-8.3) gm/dl Albumin 4.2 (3.4-5.0) gm/dl Globulin 2.3 L (2.5-4.0) gm/dl Albumin/Globulin Ratio 1.8 (0.9-2) HCG, Qual Negative (Negative) Urine Color Yellow Urine Appearance Turbid A (Clear) Urine pH 7.5 (4.5-7.5) Ur Specific [place] 1.008 (1.000-1.030) Urine Protein Trace H (Negative) Urine Glucose (UA) Negative (Negative) Urine Ketones Negative (Negative) Urine Blood 1+ H (Negative) Urine Nitrite Positive A (Negative) Urine Bilirubin Negative (Negative) Urine Urobilinogen Negative (Negative) Ur Leukocyte Esterase 3+ H (Negative) Urine WBC (Auto) >50 H (0-5) /hpf Urine RBC (Auto) 0-2 (0-2) /hpf U Hyaline Cast (Auto) 0-2 (0-2) /lpf U Epithel Cells (Auto) 0-2 (0-2) /hpf Urine Bacteria (Auto) 4+ H (None Seen) Administered Medications Ceftriaxone Sodium 2,000 mg/ (Dextrose) 50 mls @ 100 mls/hr IV Q24H [facility], 1928–1983; Protocol Stop: 12/20/23 00:59 Last Infusion: 12/10/23 01:33 Dose: Infused Documented By: Admin: 12/10/23 01:13 Dose: 100 mls/hr Documented By: JACQUES Discontinued Medications Ioversol (Optiray 320 125ml) 125 ml IV ONCE ONE Stop: 12/10/23 00:48 Last Admin: 12/10/23 00:48 Dose: 118 ml Documented By: KATHY Imaging Data Radiologist's Impression: Head CT 12/09/23 20:41 Exam(s): CT HEAD Without Contrast EXAM: CT Head Without Intravenous Contrast CLINICAL HISTORY: Reason for exam: recurrent seizure, on anticoagulation, MERCADO. TECHNIQUE: Axial computed tomography images of the head/brain without intravenous contrast. CTDI is 38.43 mGy and DLP is 546.36 mGy-cm. Automated exposure control was utilized for the study. A dose lowering technique was utilized adhering to the principles of ALARA. COMPARISON: CT head 12/09/2023. FINDINGS: Brain: Volume loss and white matter hypodensities seen in the right frontal and parieto-occipital lobes. No hemorrhage. Ventricles: Ex vacuo dilatation of the frontal horn of the right lateral ventricle.. Bones/joints: Postsurgical changes seen related to prior right parietal craniotomy. No acute fracture. Soft tissues: Unremarkable. Sinuses: Retention cyst in the right sphenoid sinus.. Mastoid air cells: Unremarkable as visualized. No mastoid effusion. IMPRESSION: 1. No intracranial hemorrhage or other acute intracranial abnormality. 2. Postsurgical change related to prior right frontal craniotomy with volume loss in the right hemisphere as described. Consider evaluation with MRI brain as clinically warranted. Electronically signed by: Marco Lubin MD 12/09/23 21:31 PM Head CTA 12/09/23 23:18 Exam(s): CTA HEAD With Contrast IV Amt: 118 ml optiray 320 EXAM: CT Angiography Head With Intravenous Contrast CLINICAL HISTORY: Reason for exam: seizure, hx of brock brock. TECHNIQUE: Axial computed tomographic angiography images of the head with intravenous contrast. Automated exposure control was utilized for the study. A dose lowering technique was utilized adhering to the principles of ALARA. MIP reconstructed images were created and reviewed. CONTRAST: Patient received 118 ml optiray 320 of IV contrast COMPARISON: No relevant prior studies available. FINDINGS: The dural venous sinuses are patent. 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 No aneurysm. Right anterior cerebral artery: Unremarkable. No occlusion or significant stenosis. No aneurysm. Right middle cerebral artery: There is diminished enhancement of the right MCA vessels.. No aneurysm. Right posterior cerebral artery: Unremarkable. No occlusion or significant stenosis. No aneurysm. Right vertebral artery: Unremarkable as visualized. Left internal carotid artery: No acute findings. Intracranial segment is patent with no significant stenosis. No aneurysm. Left anterior cerebral artery: Unremarkable. No occlusion or significant stenosis. No aneurysm. Left middle cerebral artery: Unremarkable. No occlusion or significant stenosis. No aneurysm. Left posterior cerebral artery: Unremarkable. No occlusion or significant stenosis. No aneurysm. Left vertebral artery: Unremarkable as visualized. Basilar artery: Unremarkable. No occlusion or significant stenosis. No aneurysm. 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 Electronically signed by: Abbey Prakash MD 12/10/23 01:42 AM Neck CTA 12/10/23 00:06 Exam(s): CTA NECK With Contrast IV Amt: 118 ml optiray 320 EXAM: CT Angiography Neck With Intravenous Contrast CLINICAL HISTORY: Reason for exam: seizures. TECHNIQUE: Routine carotid CT angiography protocol was performed with intravenous contrast. NASCET criteria using the distal ICAs for comparison were used for evaluation of stenoses. Automated exposure control was utilized for the study. A dose lowering technique was utilized adhering to the principles of ALARA. MIP reconstructed images were created and reviewed. CONTRAST: Patient received 118 ml optiray 320 of IV contrast COMPARISON: None. FINDINGS: VASCULATURE: Aberrant right subclavian artery. Right common carotid artery: Unremarkable. No occlusion or significant stenosis. No dissection. Right internal carotid artery: Diminished in size likely secondary to outflow obstruction. Right external carotid artery: Unremarkable. No occlusion. Right vertebral artery: Unremarkable. No occlusion or significant stenosis. No dissection. Left common carotid artery: Unremarkable. No occlusion or significant stenosis. No dissection. Left internal carotid artery: Unremarkable. Extracranial segment is patent with no occlusion or significant stenosis. No dissection. Left external carotid artery: Unremarkable. No occlusion. Left vertebral artery: Unremarkable. No occlusion or significant stenosis. No dissection. NECK: Bones/joints: Incomplete segmentation of C6 and C7. No acute fracture. Soft tissues: Prominent cervical lymph nodes. Prominent mediastinal lymph nodes. Lung apices: Clear. CAROTID STENOSIS REFERENCE USING NASCET CRITERIA: % ICA stenosis = (1 - narrowest ICA diameter/diameter of distal cervical ICA) x 100. Mild - <50% stenosis. Moderate - 50-69% stenosis. Severe - 70-94% stenosis. Near occlusion - 95-99% stenosis. Occluded - 100% stenosis. IMPRESSION: The right ICA is diminished in size likely secondary to outflow obstruction. Electronically signed by: Abbey Prakash MD 12/10/23 01:46 AM Discharge Plan Visit Data Chief Complaint: Seizure Stated Complaint: SEIZURE, HERE EARLIER FOR THE SAME ED Provider: Sandeep Díaz Discharge Problem: Seizure-like activity, Hx of craniotomy Patient Disposition: Admitted As Inpatient Discharge Instructions Interventions: ED Discharge Assessment Last Done: 12/10/23 01:31
--- NOTE | 2023-12-09 21:32 | CT Scan Report ---
Exam(s): CT HEAD Without Contrast EXAM: CT Head Without Intravenous Contrast CLINICAL HISTORY: Reason for exam: recurrent seizure, on anticoagulation, MERCADO. TECHNIQUE: Axial computed tomography images of the head/brain without intravenous contrast. CTDI is 38.43 mGy and DLP is 546.36 mGy-cm. Automated exposure control was utilized for the study. A dose lowering technique was utilized adhering to the principles of ALARA. COMPARISON: CT head 12/09/2023. FINDINGS: Brain: Volume loss and white matter hypodensities seen in the right frontal and parieto-occipital lobes. No hemorrhage. Ventricles: Ex vacuo dilatation of the frontal horn of the right lateral ventricle.. Bones/joints: Postsurgical changes seen related to prior right parietal craniotomy. No acute fracture. Soft tissues: Unremarkable. Sinuses: Retention cyst in the right sphenoid sinus.. Mastoid air cells: Unremarkable as visualized. No mastoid effusion. IMPRESSION: 1. No intracranial hemorrhage or other acute intracranial abnormality. 2. Postsurgical change related to prior right frontal craniotomy with volume loss in the right hemisphere as described. Consider evaluation with MRI brain as clinically warranted. Electronically signed by: Marco Lubin MD 12/09/23 21:31 PM
--- NOTE | 2023-12-09 23:08 | Communication Note ---
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 Patient seen in ED earlier today for brief unresponsiveness with ? shaking, discharged home, then returned tonight for an episode of what were described as tonic-clonic movements x ~3 minutes with an additional ~3 minutes of post-ictal confusion before returning to baseline. No focal findings in ED. CT shows chronic areas of R hemispheric encephalomalacia and prior R-sided craniotomy but no acute findings. Labs notable for WBC ~17k, similar to lab draw earlier today and of unclear significance. CO2 normal at 25. Impression/Plan: Seizure vs convulsive syncope. - CTA head/neck in ED. Assuming this appears stable, can remain at [facility]. - MRI brain - Routine EEG in AM - Would hold bupropion - Can hold anti-seizure medication for now unless she has additional events - Continue Eliquis - Keep euvolemic - Routine neurology evaluation in AM
[2023-12-10 00:11] LABS: Appearance Urine Turbid (Clear); Bacteria Urine Automated 4+ (None Seen); Bilirubin Urine Negative (Negative); Blood Urine 1+ (Negative); Cast Urine Automated 0-2 /lpf (0-2); Color Urine Yellow; Epithelial Cell Urine Auto 0-2 /hpf (0-2); Glucose Urine UA Negative (Negative); Ketones Urine Negative (Negative); Leukocyte Esterase Urine 3+ (Negative); Nitrite Urine Positive (Negative); Protein Urine Trace (Negative); RBC Urine Automated 0-2 /hpf (0-2); Specific Gravity Urine 1.008 (1.000-1.030); Urobilinogen Urine Negative (Negative); WBC Urine Automated >50 /hpf (0-5); pH Urine 7.5 (4.5-7.5)
[2023-12-10] MEDS: OPTIRAY 320 125ml IV ONE (00:48)
[2023-12-10] MEDS: cefTRIAXone SODIUM 2,000 MG in DEXTROSE 5 % MINI-B 50 ML IV SCH (01:13)
--- NOTE | 2023-12-10 01:21 | History & Physical Report ---
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 Patient was in the ER earlier in the day with brief unresponsive episode ,possible syncope versus seizures and workup was okay and she was discharged. After going home she seems to had a 3 minutes of tonic-clonic seizures and had 3 minutes of postictal state. Currently patient is alert and awake and oriented. Complains of a headache. Mild nausea. Denies any chest pain. No shortness of breath. Vision is okay. No sore throat or cough. No fevers. No nausea no abdominal pain. Normal bowel and bladder movements. Hemodynamics are okay. ER discussed with [place] neurology and plan to do CTA head and neck and if they are okay to monitor in [facility] and plan to do MRI and an EEG.. No antiepileptics for now. Patient was admitted in August 2023 with suicidal ideation at the time she also found to COVID and was seen by psychiatry.Currently denies any thoughts to hurt herself. Seizure-like activity As mentioned in H&P ER discussed with neurology [place] Antiseizure medication for now Will follow CTA head and neck if unremarkable will follow-up with EEG and MRI scan Seizure precautions IV Ativan as needed Will hold Wellbutrin Telemetry Consult neurology in a.m. for further recommendations UTI Started Rocephin Will follow cultures History of thrombosis of mesenteric vein History of portal vein thrombosis On Eliquis History of moyamoya disease S/p STA-MCA bypass History of severe depression Schizoaffective disorder depression type PTSD Borderline personality disorder Holding Wellbutrin for seizure potential Continue other home psych medications Will count psychiatry to help with her medications GERD On famotidine and omeprazole DVT prophylaxis On Eliquis Disposition Telemetry Full code History of Present Illness Chief Complaint: 23-year-old female with past med history significant for hyperprolactinemia, intermittent asthma, allergic rhinitis, history of thrombosis of mesenteric vein, history of portal vein thrombosis, 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 Patient was in the ER earlier in the day with brief unresponsive episode ,possible syncope versus seizures and workup was okay and she was discharged. After going home she seems to had a 3 minutes of tonic-clonic seizures and had 3 minutes of postictal state. Currently patient is alert and awake and oriented. Complains of a headache. Mild nausea. Denies any chest pain. No shortness of breath. Vision is okay. No sore throat or cough. No fevers. No nausea no abdominal pain. Normal bowel and bladder movements. Hemodynamics are okay. ER discussed with [place] neurolog[facility] and plan to do CTA head and neck and if they are okay to monitor in [facility] and plan to do MRI and an EEG.. No antiepileptics for now. Patient was admitted in August 2023 with suicidal ideation at the time she also found to COVID and was seen by psychiatry.Currently denies any thoughts to hurt herself. Past medical history. As mentioned above Past surgical history. Catheter placement internal carotid artery. Fusion of skull arteries. Nasal surgery for deviated septum. Removal of total splint. Sinus surgery. Spinal fluid tap. Drainage. Stereotactic cranial intradural navigation. Vertebral artery catheter placement. Social history. . No smoking. Alcohol rarely. No drug use. Family history. Father has allergies. Mother has allergies. Maternal grandfather had coronary disease. Maternal grandmother had dementia. Primary Care Provider: Kinsey Chaparro PA-C Allergies Allergy/AdvReac Type Severity Reaction Status Date / Time vancomycin Allergy Intermediate Red/Itchy Verified 12/09/23 20:24 skin Home Medications Medication Instructions Recorded Confirmed Type apixaban 5 mg tablet (Eliquis) 5 mg PO AMHS 07/27/22 12/09/23 History propranolol 40 mg tablet 40 mg PO BID 07/27/22 12/09/23 History famotidine 20 mg tablet 20 mg PO BID 10/13/22 12/09/23 History omeprazole 40 mg capsule,delayed 40 mg PO QAM 01/23/23 12/09/23 History release levothyroxine 50 mcg tablet 50 mcg PO DAILY 04/08/23 12/09/23 History norethindrone (contraceptive) 0.35 0.35 mg PO DAILY 04/11/23 12/09/23 History mg tablet doxepin 25 mg capsule 25 mg PO HS 08/30/23 12/09/23 History naltrexone 50 mg tablet 50 mg PO DAILY 08/30/23 12/09/23 History olanzapine 20 mg tablet 20 mg PO DAILY HS 08/30/23 12/09/23 History benztropine 0.5 mg tablet 0.5 mg PO BID 12/09/23 12/09/23 History bupropion HCl 150 mg 24 hr tablet, 150 mg PO BID 12/09/23 12/09/23 History extended release gabapentin 300 mg capsule 300 mg PO TID 12/09/23 12/09/23 History haloperidol 10 mg tablet 10 mg PO BID 12/09/23 12/09/23 History lithium carbonate 300 mg tablet 300 mg PO BID 12/09/23 12/09/23 History lithium carbonate 600 mg capsule 600 mg PO HS 12/09/23 12/09/23 History Past Med/Surg History Medical History Suicidal ideation Auditory hallucinations Spherocytosis Involuntary commitment Depression with suicidal ideation MDD (major depressive disorder), recurrent, severe, with psychosis Depression with suicidal ideation Eating disorder, unspecified Suicidal ideation Major depressive disorder with psychotic features Major depression Thrombocytosis Intermittent asthma PTSD (post-traumatic stress disorder) Portal vein thrombosis Superior mesenteric vein thrombosis Asplenia Brock brock disease Surgical History History of splenectomy Family History Denies family history of Coronary heart disease Social History Smoking Status: Never smoker Second Hand Exposure: No; Do You Dip or Chew Tobacco: No; Tobacco Cessation Education Requested by Patient: No Hx Alcohol Use: No Hx Substance Use: No Preferred Language: Uzbek Communication Ability: Effective Combiner Operator Required: No Beliefs That Will Affect Care: None marital status: Current Living Situation: Spouse and Family How many Children do You have: 0 Other Information That Helps Us Care for You: No Feels Safe at Home: Yes Safety Concerns: Feels Safe At This Time Gender Identity: Female Assistive Devices: None Review of Systems Review of Systems: All systems reviewed & are unremarkable except as noted in HPI & below Physical Exam 2 Physical Exam: General- adult Head- atraumatic Eyes- PERRL. ENT- oropharynx clear Neck- supple, no JVD. Lungs- clear to auscultation no wheezing or crackles Heart- regular rhythm; no murmur, no gallop. Abdomen- normal bowel sounds, soft, nontender, no distension Extremities- no pretibial edema, no erythema Neuro- alert, oriented PERRL, no facial palsy; no dysarthria; moves extremities, obeys simple commands Results & Data Results & Data Vital Signs (Past 12 Hours) Vital Signs Temp Pulse Pulse Resp BP BP Pulse Ox 12/09/23 23:37 87 12/09/23 23:04 83 18 103/59 L 96 12/09/23 22:30 89 22 94/57 L 96 12/09/23 22:00 90 17 94/55 L 96 12/09/23 21:30 87 22 94/55 L 95 12/09/23 21:00 93 H 15 114/75 96 12/09/23 20:30 82 17 124/77 94 12/09/23 20:00 84 16 132/85 96 12/09/23 19:56 98 12/09/23 19:33 90 12/09/23 19:30 96 H 21 137/95 97 12/09/23 19:29 36.9 C 98 12/09/23 19:29 98 12/09/23 19:29 36.9 C 92 H 19 137/95 98 O2 Del Method 12/09/23 23:37 12/09/23 23:04 Room Air 12/09/23 22:30 Room Air 12/09/23 22:00 Room Air 12/09/23 21:30 Room Air 12/09/23 21:00 Room Air 12/09/23 20:30 Room Air 12/09/23 20:00 Room Air 12/09/23 19:56 Room Air 12/09/23 19:33 12/09/23 19:30 12/09/23 19:29 Room Air 12/09/23 19:29 Room Air 12/09/23 19:29 Room Air Diagnostic Findings Laboratory Results WBC 16.97 K/ul (4.8-10.8) H 12/09/23 19:45 RBC 3.83 M/uL (4.20-5.40) L 12/09/23 19:45 Hgb 12.2 g/dl (12.0-16.0) 12/09/23 19:45 Hct 34.8 % (37.0-47.0) L 12/09/23 19:45 MCV 90.9 fL (80.0-100.0) 12/09/23 19:45 MCH 31.9 pg (25.0-34.0) 12/09/23 19:45 MCHC 35.1 g/dL (32.0-36.0) 12/09/23 19:45 RDW Std Deviation 44.0 fL (36.4-46.3) 12/09/23 19:45 RDW Coeff of Toni 13.3 % (11.5-14.5) 12/09/23 19:45 Plt Count 623 K/uL (130-400) H 12/09/23 19:45 MPV 8.9 fL (9.4-12.4) L 12/09/23 19:45 Immature Gran % (Auto) 0.4 % 12/09/23 19:45 Neut % (Auto) 63.8 % 12/09/23 19:45 Lymph % (Auto) 19.5 % 12/09/23 19:45 [place] % (Auto) 13.8 % 12/09/23 19:45 Eos % (Auto) 2.0 % 12/09/23 19:45 Baso % (Auto) 0.5 % 12/09/23 19:45 Neut # (Auto) 10.84 K/uL (1.40-6.50) H 12/09/23 19:45 Lymph # (Auto) 3.31 K/uL (1.20-3.40) 12/09/23 19:45 [place] # (Auto) 2.34 K/uL (0.11-0.59) H 12/09/23 19:45 Eos # (Auto) 0.34 K/uL (0.00-0.50) 12/09/23 19:45 Baso # (Auto) 0.08 K/uL (0.00-0.20) 12/09/23 19:45 Immature Gran # (Auto) 0.06 K/uL (0.01-0.20) 12/09/23 19:45 Sodium 138 mmol/L (136-145) 12/09/23 19:45 Potassium 3.7 mmol/L (3.5-5.1) 12/09/23 19:45 Chloride 106 mmol/L (98-107) 12/09/23 19:45 Carbon Dioxide 25 mmol/L (21-32) 12/09/23 19:45 Anion Gap 7 (3-11) 12/09/23 19:45 BUN 10 mg/dl (6-23) 12/09/23 19:45 Creatinine 0.90 mg/dl (0.6-1.2) 12/09/23 19:45 Est Cr Clr Drug Dosing 82.5 ml/min 12/09/23 19:45 Est GFR ( Amer) 103.0 ml/min 12/09/23 19:45 Est GFR (Non-Af Amer) 88.9 ml/min 12/09/23 19:45 BUN/Creatinine Ratio 11.1 (10-20) 12/09/23 19:45 Glucose 81 mg/dl (70-99(Fasting)) 12/09/23 19:45 Calcium 9.6 mg/dl (8.6-10.3) 12/09/23 19:45 Magnesium 2.1 mg/dl (1.7-2.4) 12/09/23 19:45 Total Bilirubin 0.7 mg/dl (0.2-1.0) 12/09/23 19:45 AST 19 U/L (13-39) 12/09/23 19:45 ALT 41 U/L (7-52) 12/09/23 19:45 Alkaline Phosphatase 110 U/L (34-104) H 12/09/23 19:45 Troponin I High Sens 2.8 pg/ml (0-14) 12/09/23 19:45 Total Protein 6.5 gm/dl (6.0-8.3) 12/09/23 19:45 Albumin 4.2 gm/dl (3.4-5.0) 12/09/23 19:45 Globulin 2.3 gm/dl (2.5-4.0) L 12/09/23 19:45 Albumin/Globulin Ratio 1.8 (0.9-2) 12/09/23 19:45 HCG, Qual Negative (Negative) 12/09/23 19:45 Urine Color Yellow 12/09/23 23:49 Urine Appearance Turbid (Clear) A 12/09/23 23:49 Urine pH 7.5 (4.5-7.5) 12/09/23 23:49 Ur Specific [place] 1.008 (1.000-1.030) 12/09/23 23:49 Urine Protein Trace (Negative) H 12/09/23 23:49 Urine Glucose (UA) Negative (Negative) 12/09/23 23:49 Urine Ketones Negative (Negative) 12/09/23 23:49 Urine Blood 1+ (Negative) H 12/09/23 23:49 Urine Nitrite Positive (Negative) A 12/09/23 23:49 Urine Bilirubin Negative (Negative) 12/09/23 23:49 Urine Urobilinogen Negative (Negative) 12/09/23 23:49 Ur Leukocyte Esterase 3+ (Negative) H 12/09/23 23:49 Urine WBC (Auto) >50 /hpf (0-5) H 12/09/23 23:49 Urine RBC (Auto) 0-2 /hpf (0-2) 12/09/23 23:49 U Hyaline Cast (Auto) 0-2 /lpf (0-2) 12/09/23 23:49 U Epithel Cells (Auto) 0-2 /hpf (0-2) 12/09/23 23:49 Urine Bacteria (Auto) 4+ (None Seen) H 12/09/23 23:[address] 12/09/23 20:41 Exam(s): CT HEAD Without Contrast EXAM: CT Head Without Intravenous Contrast CLINICAL HISTORY: Reason for exam: recurrent seizure, on anticoagulation, [place]. TECHNIQUE: Axial computed tomography images of the head/brain without intravenous contrast. CTDI is 38.43 mGy and DLP is 546.36 mGy-cm. Automated exposure control was utilized for the study. A dose lowering technique was utilized adhering to the principles of ALARA. COMPARISON: CT head 12/09/2023. FINDINGS: Brain: Volume loss and white matter hypodensities seen in the right frontal and parieto-occipital lobes. No hemorrhage. Ventricles: Ex vacuo dilatation of the frontal horn of the right lateral ventricle.. Bones/joints: Postsurgical changes seen related to prior right parietal craniotomy. No acute fracture. Soft tissues: Unremarkable. Sinuses: Retention cyst in the right sphenoid sinus.. Mastoid air cells: Unremarkable as visualized. No mastoid effusion. IMPRESSION: 1. No intracranial hemorrhage or other acute intracranial abnormality. 2. Postsurgical change related to prior right frontal craniotomy with volume loss in the right hemisphere as described. Consider evaluation with MRI brain as clinically warranted. Electronically signed by: Marco Lubin MD 12/09/23 21:31 PM ECG Additional Comments: ECG. Normal sinus rhythm with a rate of 91. Incomplete right bundle branch block. Nonspecific T wave abnormality. No significant change was found. Code Status & VTE Plan VTE Prophylaxis Plan VTE Prophylaxis will be ordered: Yes
--- NOTE | 2023-12-10 01:44 | CT Scan Report ---
Exam(s): CTA HEAD With Contrast IV Amt: 118 ml optiray 320 EXAM: CT Angiography Head With Intravenous Contrast CLINICAL HISTORY: Reason for exam: seizure, hx of brock brock. TECHNIQUE: Axial computed tomographic angiography images of the head with intravenous contrast. Automated exposure control was utilized for the study. A dose lowering technique was utilized adhering to the principles of ALARA. MIP reconstructed images were created and reviewed. CONTRAST: Patient received 118 ml optiray 320 of IV contrast COMPARISON: No relevant prior studies available. FINDINGS: The dural venous sinuses are patent. 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 No aneurysm. Right anterior cerebral artery: Unremarkable. No occlusion or significant stenosis. No aneurysm. Right middle cerebral artery: There is diminished enhancement of the right MCA vessels.. No aneurysm. Right posterior cerebral artery: Unremarkable. No occlusion or significant stenosis. No aneurysm. Right vertebral artery: Unremarkable as visualized. Left internal carotid artery: No acute findings. Intracranial segment is patent with no significant stenosis. No aneurysm. Left anterior cerebral artery: Unremarkable. No occlusion or significant stenosis. No aneurysm. Left middle cerebral artery: Unremarkable. No occlusion or significant stenosis. No aneurysm. Left posterior cerebral artery: Unremarkable. No occlusion or significant stenosis. No aneurysm. Left vertebral artery: Unremarkable as visualized. Basilar artery: Unremarkable. No occlusion or significant stenosis. No aneurysm. 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 Electronically signed by: Abbey Prakash MD 12/10/23 01:42 AM
--- NOTE | 2023-12-10 01:47 | CT Scan Report ---
Exam(s): CTA NECK With Contrast IV Amt: 118 ml optiray 320 EXAM: CT Angiography Neck With Intravenous Contrast CLINICAL HISTORY: Reason for exam: seizures. TECHNIQUE: Routine carotid CT angiography protocol was performed with intravenous contrast. NASCET criteria using the distal ICAs for comparison were used for evaluation of stenoses. Automated exposure control was utilized for the study. A dose lowering technique was utilized adhering to the principles of ALARA. MIP reconstructed images were created and reviewed. CONTRAST: Patient received 118 ml optiray 320 of IV contrast COMPARISON: None. FINDINGS: VASCULATURE: Aberrant right subclavian artery. Right common carotid artery: Unremarkable. No occlusion or significant stenosis. No dissection. Right internal carotid artery: Diminished in size likely secondary to outflow obstruction. Right external carotid artery: Unremarkable. No occlusion. Right vertebral artery: Unremarkable. No occlusion or significant stenosis. No dissection. Left common carotid artery: Unremarkable. No occlusion or significant stenosis. No dissection. Left internal carotid artery: Unremarkable. Extracranial segment is patent with no occlusion or significant stenosis. No dissection. Left external carotid artery: Unremarkable. No occlusion. Left vertebral artery: Unremarkable. No occlusion or significant stenosis. No dissection. NECK: Bones/joints: Incomplete segmentation of C6 and C7. No acute fracture. Soft tissues: Prominent cervical lymph nodes. Prominent mediastinal lymph nodes. Lung apices: Clear. CAROTID STENOSIS REFERENCE USING NASCET CRITERIA: % ICA stenosis = (1 - narrowest ICA diameter/diameter of distal cervical ICA) x 100. Mild - <50% stenosis. Moderate - 50-69% stenosis. Severe - 70-94% stenosis. Near occlusion - 95-99% stenosis. Occluded - 100% stenosis. IMPRESSION: The right ICA is diminished in size likely secondary to outflow obstruction. Electronically signed by: Abbey Prakash MD 12/10/23 01:46 AM
[2023-12-10] MEDS ORDERED: POLYETHYLENE (MIRALAX) 17 GM PACK PO PRN (01:49)
[2023-12-10] MEDS ORDERED: PROMETHAZINE HCL 12.5 MG in SODIUM CHLORIDE 0.9% 50 ML IV PRN (01:49)
[2023-12-10] MEDS ORDERED: LORazepam 1.5 MG in SYRINGE 0.75 ML IV PRN (01:49)
[2023-12-10] MEDS: SODIUM CHLORIDE 0.9% 1,000 ML IV SCH (02:11)
--- NOTE | 2023-12-10 02:34 | Communication Note ---
Date of Service: December 10, 2023 CTA shows occlusion of cavernous GENE; small R A1 with hypoplastic/absent R A2 and distal segments; small R M1 segment that fills via collaterals, including AComm -> R A1; and a R STA-MCA bypass. The bypass is new since her last CTA at [facility] on 12/28/2019, but the other findings were also seen on that study. Okay to remain at [facility] for further workup as recommended in my previous note. Can be seen by neuroogy in AM.
[2023-12-10] MEDS: LEVOTHYROXINE SODIUM 50 MCG TABLET PO SCH (06:18)
[2023-12-10] MEDS: LITHIUM CARBONATE 300 MG TAB PO SCH ×2 (07:34→20:16)
[2023-12-10 08:27] LABS: Basophils # (auto) 0.09 K/uL (0.00-0.20); Basophils % (auto) 0.5 %; Eosinophils # (auto) 0.26 K/uL (0.00-0.50); Eosinophils % (auto) 1.4 %; Hematocrit (blood only) 38.2 % (37.0-47.0); Hemoglobin 13.1 g/dl (12.0-16.0); Immature Granulocytes # (auto) 0.07 K/uL (0.01-0.20); Immature Granulocytes % (auto) 0.4 %; Lymphocytes # (auto) 2.53 K/uL (1.20-3.40); Lymphocytes % (auto) 13.6 %; Mean Corpuscular Hemoglobin 31.3 pg (25.0-34.0); Mean Corpuscular Hgb Conc 34.3 g/dL (32.0-36.0); Mean Corpuscular Volume 91.4 fL (80.0-100.0); Mean Platelet Volume 8.8 fL (9.4-12.4); Monocytes # (auto) 1.92 K/uL (0.11-0.59); Monocytes % (auto) 10.3 %; Neutrophils % (auto) 73.8 %; Nucleated RBC # (auto) 0.03 K/uL (0.00-0.12); Nucleated RBC % (auto) 0.2 %; Platelet Count 652 K/uL (130-400); RDW Coefficient of Variation 13.5 % (11.5-14.5); RDW Standard Deviation 45.3 fL (36.4-46.3); Red Blood Count 4.18 M/uL (4.20-5.40); White Blood Count 18.67 K/ul (4.8-10.8)
[2023-12-10 08:38] LABS: BUN Creatinine Ratio 7.8 (10-20); Calcium 9.7 mg/dl (8.6-10.3); Creatinine Clr Calc Pharmacy 82.5 ml/min; Est GFR (Non-African American) 88.9 ml/min; Magnesium 2.1 mg/dl (1.7-2.4); Potassium 4.3 mmol/L (3.5-5.1)
[2023-12-10] MEDS: GABAPENTIN 300 MG CAP PO SCH (08:48)
[2023-12-10] MEDS: OLANZapine 20 MG TABLET PO SCH (08:48)
[2023-12-10] MEDS: FAMOTIDINE 20 MG TAB PO SCH (08:49)
[2023-12-10] MEDS: PANTOprazole 40 MG TAB PO SCH (08:49)
[2023-12-10] MEDS: PROPRANOLOL HCL 20 MG TAB PO SCH (08:50)
[2023-12-10] MEDS: BENZTROPINE MESYLATE 0.5 MG TAB PO SCH (08:51)
[2023-12-10] MEDS: haloperidoL 5 MG TAB PO SCH (08:51)
[2023-12-10] MEDS: APIXABAN 5 MG TABLET PO SCH (08:51)
[2023-12-10] MEDS: NALTREXONE HCL 50 MG TAB PO SCH (08:52)
[2023-12-10] MEDS: GADOBUTROL 65ML VIAL IV ONE (09:42)
--- NOTE | 2023-12-10 10:56 | Magnetic Resonance Report ---
Brain MRI WITH AND WITHOUT CONTRAST HISTORY: seizures TECHNIQUE: Multiplanar multisequence MRI of the brain was performed both before and after the intrave nous administration of contrast. COMPARISON STUDY: Head CT 12/09/2023. FINDINGS: No areas restricted diffusion to suggest an acute infarction. The midline structures are in tact. The orbits are unremarkable. Small retention cyst within the left maxillary sinus and right sph enoid sinus. The basilar cells are clear. 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 This likely accounts for the mild diffuse atrophy within the right cerebral hemisphere. Small foci of encephalomalacia wit hin the right high convexity deep to the craniotomy site and within the right posterior occipital lob e. This could be due to old infarcts are old postoperative change. Asymmetric right periventricular w елена matter T2 hyperintensity is likely chronic. There is no mass, hematoma, midline shift. Mild ex v acuo dilatation of the right lateral ventricle comparison to the left. No evidence for monroe matter he terotopia. The medial temporal lobes are symmetric. Postcontrast sequences show no areas of abnormal enhancement. IMPRESSION: 1. No acute infarct or intracranial hemorrhage. 2. 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 This likely accounts for the mild diffuse atrophy within the right cerebral hemisphere. 3. Small foci of encephalomalacia within the right high convexity and right occipital lobe likely due to old infarcts or old postoperative change. ACT 112: Negative or not required by law. Electronically signed by: Nick Salgado M.D. 12/10/2023 10:55 AM
--- NOTE | 2023-12-10 11:18 | Neurology Consultation ---
Date of Consultation December 10, 2023 Assessment & Plan (1) Seizure-like activity: Patient reportedly demonstrated seizure like activity on two occasions yesterday She cannot recall events Notable for recent medication addition bupropion- she reports starting this med about one month ago Recommend discontinue bupropion Given hx intracranial pathology recommend AED Patient agreeable to AED and wants to get her license back in 6months or [place] She is aware of no driving per [place] state Law Primary/hospitalist team to submit [employer] DL form DO NOT recommend Keppra due to hx SI/suicide attempt Recommend Psychiatry consultation Recommend 100mg lacosamide BID Recommend obtain baseline EKG Continue to monitor telemetry closely EEG pending Continue seizure precautions Utilize benzothiazepines for any breakthrough clinical seizure like activity Continue to monitor renal and hepatic function Keep euvolemic VTE prophylaxis Follow up outpatient with Adult Neurology Telehealth Consultation Telehealth Information Telehealth Information: I performed this visit using a real-time telehealth connection between my location and the patients location ([facility]). After connecting through interactive tele-video, patient was identified by name and date of and/or wristband check.Patient (or authorized healthcare desk representative) was informed that this was a telemedicine visit and it was being conducted confidentially over secure lines. My office door was closed and no one else was present in the room with me.Patient (or authorized healthcare desk representative) provided consent to proceed with the visit, expressed an understanding of privacy and security of the telemedicine visit, and gave permission to have a hospital desk representative in the room in order to assist with the visit and to conduct portions of the visit, as needed. I informed the patient (or authorized healthcare desk representative) that I reviewed their record and presented the opportunity for them to ask any questions regarding the visit today. The patient agreed to participate. History of Present Illness Reason for Consultation: Seizure Requesting Physician: Dr. Dorado Attending Physician: Blue Olivarez MD History of Present Illness 23yo female with significant past medical hx including m[place]oya with STA-MCA bypass, splenectomy significant psychiatric illness including hx of SI/suicide attempt presented with reported witnessed seizure like activity. Was discharged from ER then returned with continued seizure like episodes. Bupropion was reportedly started approx one month ago now held/discontinued. She has undergone intracranial imaging without overt evidence of acute intracranial pathology- noting history as above. I have performed televideo consultation. She is alert & oriented; able to answer all questions appropriately, name objects on televideo monitor, repeat phrases and perform complex/embedded commands without deficit. Neurological exam is non lateralizing/nonfocal in terms of motor strength and coordination. Denies SI/HI at this time. Discussed option to initiate AED and patient reports being in favor of starting AED. She is aware of no driving per [facility] law for at least 6 months. EEG pending today. No reported cephalgia or cervicalgia Denies chest pain/palpitations or shortness of breath No reported changes in vision hearing dizziness or paresthesia Denies recent fevers chills nausea vomiting changes in bowels or bladder Denies recent medication changes, recent illness or sick contacts, no reported recent travel Allergies Allergy/AdvReac Type Severity Reaction Status Date / Time vancomycin Allergy Intermediate Red/Itchy Verified 12/09/23 20:24 skin Home Medications Medication Instructions Recorded Confirmed Type apixaban 5 mg tablet (Eliquis) 5 mg PO AMHS 07/27/22 12/09/23 History propranolol 40 mg tablet 40 mg PO BID 07/27/22 12/09/23 History famotidine 20 mg tablet 20 mg PO BID 10/13/22 12/09/23 History omeprazole 40 mg capsule,delayed 40 mg PO QAM 01/23/23 12/09/23 History release levothyroxine 50 mcg tablet 50 mcg PO DAILY 04/08/23 12/09/23 History norethindrone (contraceptive) 0.35 0.35 mg PO DAILY 04/11/23 12/09/23 History mg tablet doxepin 25 mg capsule 25 mg PO HS 08/30/23 12/09/23 History naltrexone 50 mg tablet 50 mg PO DAILY 08/30/23 12/09/23 History olanzapine 20 mg tablet 20 mg PO DAILY HS 08/30/23 12/09/23 History benztropine 0.5 mg tablet 0.5 mg PO BID 12/09/23 12/09/23 History bupropion HCl 150 mg 24 hr tablet, 150 mg PO BID 12/09/23 12/09/23 History extended release gabapentin 300 mg capsule 300 mg PO TID 12/09/23 12/09/23 History haloperidol 10 mg tablet 10 mg PO BID 12/09/23 12/09/23 History lithium carbonate 300 mg tablet 300 mg PO BID 12/09/23 12/09/23 History lithium carbonate 600 mg capsule 600 mg PO HS 12/09/23 12/09/23 History Patient History Medical History Suicidal ideation Auditory hallucinations Spherocytosis Involuntary commitment Depression with suicidal ideation MDD (major depressive disorder), recurrent, severe, with psychosis Depression with suicidal ideation Eating disorder, unspecified Suicidal ideation Major depressive disorder with psychotic features Major depression Thrombocytosis Intermittent asthma PTSD (post-traumatic stress disorder) Portal vein thrombosis Superior mesenteric vein thrombosis Asplenia Brock brock disease Surgical History History of splenectomy Family History Denies family history of Coronary heart disease Social History Smoking Status: Never smoker Second Hand Exposure: No; Do You Dip or Chew Tobacco: No; Tobacco Cessation Education Requested by Patient: No Hx Alcohol Use: No Hx Substance Use: No Preferred Language: Uzbek Communication Ability: Effective 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 Beliefs That Will Affect Care: None marital status: Current Living Situation: Spouse and Family How many Children do You have: 0 Other Information That Helps Us Care for You: No Feels Safe at Home: Yes Safety Concerns: Feels Safe At This Time Gender Identity: Female Assistive Devices: None Review of Systems No reported cephalgia or cervicalgia Denies chest pain/palpitations or shortness of breath No reported changes in vision hearing dizziness or paresthesia Denies recent fevers chills nausea vomiting changes in bowels or bladder Denies recent medication changes, recent illness or sick contacts, no reported recent travel Physical Exam Neurological Examination: Mental Status: Awake and alert. Oriented to person, place, and time. Fluency naming repetition and comprehension appear grossly intact. Affect remains appropriate. CN testing: I: Denies changes in ability to smell II:Reports no changes in visual acuity III/IV/: No evidence of gaze preference, hippus, nystagmus or roving eye movements V: Facial sensation reportedly grossly intact to light touch bilaterally VII: Facial movements appear without evidence of asymmetry VIII: Hearing appears grossly intact to loud voice bilaterally IX/X: Palate appears to elevate symmetrically XI: Shoulder shrug appears symmetric/ grossly intact bilaterally XII: Tongue protrudes midline without evidence of biting Motor exam: Strength appears grossly intact/symmetric in all extremities Sensory: Sensation is reportedly grossly intact throughout Coordination: Finger to nose and heel to hinds were intact. No apparent evidence of dysmetria or dysdiadochokinesia Reflexes: Deferred Gait: Deferred Results & Data Vital Signs (Past 12 Hours) Vital Signs Temp Pulse Pulse Resp BP Pulse Ox O2 Del Method 12/10/23 07:42 77 12/10/23 07:00 36.8 C 81 18 92/58 L 95 Room Air 12/10/23 03:35 37.5 C 90 16 105/61 98 Room Air 12/10/23 01:49 85 12/10/23 01:48 36.5 C 84 19 125/82 100 Room Air 12/10/23 01:43 36.5 C 84 19 125/82 100 Room Air 12/10/23 01:15 86 20 105/66 96 Room Air 12/09/23 23:37 87 Laboratory Results Abnormal lab results 12/09/23 12/09/23 12/10/23 Range/Units 19:45 23:49 08:04 WBC 16.97 H 18.67 H (4.8-10.8) K/ul RBC 3.83 L 4.18 L (4.20-5.40) M/uL Hct 34.8 L (37.0-47.0) % Plt Count 623 H 652 H (130-400) K/uL MPV 8.9 L 8.8 L (9.4-12.4) fL Neut # (Auto) 10.84 H 13.80 H (1.40-6.50) K/uL [place] # (Auto) 2.34 H 1.92 H (0.11-0.59) K/uL BUN/Creatinine Ratio 7.8 L (10-20) Glucose 140 H (70-99(Fasting)) mg/dl Alkaline Phosphatase 110 H (34-104) U/L Globulin 2.3 L (2.5-4.0) gm/dl Urine Appearance Turbid A (Clear) Urine Protein Trace H (Negative) Urine Blood 1+ H (Negative) Urine Nitrite Positive A (Negative) Ur Leukocyte Esterase 3+ H (Negative) Urine WBC (Auto) >50 H (0-5) /hpf Urine Bacteria (Auto) 4+ H (None Seen) [place] 0.5 L (0.6-1.2) mmol/L Diagnostic Findings Head CT 12/09/23 20:41 Exam(s): CT HEAD Without Contrast EXAM: CT Head Without Intravenous Contrast CLINICAL HISTORY: Reason for exam: recurrent seizure, on anticoagulation, [place]. TECHNIQUE: Axial computed tomography images of the head/brain without intravenous contrast. CTDI is 38.43 mGy and DLP is 546.36 mGy-cm. Automated exposure control was utilized for the study. A dose lowering technique was utilized adhering to the principles of ALARA. COMPARISON: CT head 12/09/2023. FINDINGS: Brain: Volume loss and white matter hypodensities seen in the right frontal and parieto-occipital lobes. No hemorrhage. Ventricles: Ex vacuo dilatation of the frontal horn of the right lateral ventricle.. Bones/joints: Postsurgical changes seen related to prior right parietal craniotomy. No acute fracture. Soft tissues: Unremarkable. Sinuses: Retention cyst in the right sphenoid sinus.. Mastoid air cells: Unremarkable as visualized. No mastoid effusion. IMPRESSION: 1. No intracranial hemorrhage or other acute intracranial abnormality. 2. Postsurgical change related to prior right frontal craniotomy with volume loss in the right hemisphere as described. Consider evaluation with MRI brain as clinically warranted. Electronically signed by: Marco Lubin MD 12/09/23 21:31 PM Head CTA 12/09/23 23:18 Exam(s): CTA HEAD With Contrast IV Amt: 118 ml optiray 320 EXAM: CT Angiography Head With Intravenous Contrast CLINICAL HISTORY: Reason for exam: seizure, hx of brock brock. TECHNIQUE: Axial computed tomographic angiography images of the head with intravenous contrast. Automated exposure control was utilized for the study. A dose lowering technique was utilized adhering to the principles of ALARA. MIP reconstructed images were created and reviewed. CONTRAST: Patient received 118 ml optiray 320 of IV contrast COMPARISON: No relevant prior studies available. FINDINGS: The dural venous sinuses are patent. 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 No aneurysm. Right anterior cerebral artery: Unremarkable. No occlusion or significant stenosis. No aneurysm. Right middle cerebral artery: There is diminished enhancement of the right MCA vessels.. No aneurysm. Right posterior cerebral artery: Unremarkable. No occlusion or significant stenosis. No aneurysm. Right vertebral artery: Unremarkable as visualized. Left internal carotid artery: No acute findings. Intracranial segment is patent with no significant stenosis. No aneurysm. Left anterior cerebral artery: Unremarkable. No occlusion or significant stenosis. No aneurysm. Left middle cerebral artery: Unremarkable. No occlusion or significant stenosis. No aneurysm. Left posterior cerebral artery: Unremarkable. No occlusion or significant stenosis. No aneurysm. Left vertebral artery: Unremarkable as visualized. Basilar artery: Unremarkable. No occlusion or significant stenosis. No aneurysm. 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 Electronically signed by: Abbey Prakash MD 12/10/23 01:42 AM Neck CTA 12/10/23 00:06 Exam(s): CTA NECK With Contrast IV Amt: 118 ml optiray 320 EXAM: CT Angiography Neck With Intravenous Contrast CLINICAL HISTORY: Reason for exam: seizures. TECHNIQUE: Routine carotid CT angiography protocol was performed with intravenous contrast. NASCET criteria using the distal ICAs for comparison were used for evaluation of stenoses. Automated exposure control was utilized for the study. A dose lowering technique was utilized adhering to the principles of ALARA. MIP reconstructed images were created and reviewed. CONTRAST: Patient received 118 ml optiray 320 of IV contrast COMPARISON: None. FINDINGS: VASCULATURE: Aberrant right subclavian artery. Right common carotid artery: Unremarkable. No occlusion or significant stenosis. No dissection. Right internal carotid artery: Diminished in size likely secondary to outflow obstruction. Right external carotid artery: Unremarkable. No occlusion. Right vertebral artery: Unremarkable. No occlusion or significant stenosis. No dissection. Left common carotid artery: Unremarkable. No occlusion or significant stenosis. No dissection. Left internal carotid artery: Unremarkable. Extracranial segment is patent with no occlusion or significant stenosis. No dissection. Left external carotid artery: Unremarkable. No occlusion. Left vertebral artery: Unremarkable. No occlusion or significant stenosis. No dissection. NECK: Bones/joints: Incomplete segmentation of C6 and C7. No acute fracture. Soft tissues: Prominent cervical lymph nodes. Prominent mediastinal lymph nodes. Lung apices: Clear. CAROTID STENOSIS REFERENCE USING NASCET CRITERIA: % ICA stenosis = (1 - narrowest ICA diameter/diameter of distal cervical ICA) x 100. Mild - <50% stenosis. Moderate - 50-69% stenosis. Severe - 70-94% stenosis. Near occlusion - 95-99% stenosis. Occluded - 100% stenosis. IMPRESSION: The right ICA is diminished in size likely secondary to outflow obstruction. Electronically signed by: Abbey Prakash MD 12/10/23 01:46 AM Brain MRI 12/10/23 07:09 Brain MRI WITH AND WITHOUT CONTRAST HISTORY: seizures TECHNIQUE: Multiplanar multisequence MRI of the brain was performed both before and after the intravenous administration of contrast. COMPARISON STUDY: Head CT 12/09/2023. FINDINGS: No areas restricted diffusion to suggest an acute infarction. The midline structures are intact. The orbits are unremarkable. Small retention cyst within the left maxillary sinus and right sphenoid sinus. The basilar cells are clear. 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 This likely accounts for the mild diffuse atrophy within the right cerebral hemisphere. Small foci of encephalomalacia within the right high convexity deep to the craniotomy site and within the right posterior occipital lobe. This could be due to old infarcts are old postoperative change. Asymmetric right periventricular white matter T2 hyperintensity is likely chronic. There is no mass, hematoma, midline shift. Mild ex vacuo dilatation of the right lateral ventricle comparison to the left. No evidence for monroe matter heterotopia. The medial temporal lobes are symmetric. Postcontrast sequences show no areas of abnormal enhancement. IMPRESSION: 1. No acute infarct or intracranial hemorrhage. 2. 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 This likely accounts for the mild diffuse atrophy within the right cerebral hemisphere. 3. Small foci of encephalomalacia within the right high convexity and right occipital lobe likely due to old infarcts or old postoperative change. ACT 112: Negative or not required by law. Electronically signed by: Nick Salgado M.D. 12/10/2023 10:55 AM Medications Administered Home Medications Medication Instructions Recorded Confirmed Last Taken apixaban 5 mg tablet (Eliquis) 5 mg PO AMHS 07/27/22 12/09/23 12/09/23 08:00 propranolol 40 mg tablet 40 mg PO BID 07/27/22 12/09/23 12/09/23 08:00 famotidine 20 mg tablet 20 mg PO BID 10/13/22 12/09/23 12/09/23 08:00 omeprazole 40 mg capsule,delayed 40 mg PO QAM 01/23/23 12/09/23 12/09/23 release levothyroxine 50 mcg tablet 50 mcg PO DAILY 04/08/23 12/09/23 12/09/23 norethindrone (contraceptive) 0.35 0.35 mg PO DAILY 04/11/23 12/09/23 11/24/23 mg tablet doxepin 25 mg capsule 25 mg PO HS 08/30/23 12/09/23 12/08/23 naltrexone 50 mg tablet 50 mg PO DAILY 08/30/23 12/09/23 12/09/23 olanzapine 20 mg tablet 20 mg PO DAILY 08/30/23 12/09/23 11/24/23 benztropine 0.5 mg tablet 0.5 mg PO BID 12/09/23 12/09/23 12/09/23 08:00 bupropion HCl 150 mg 24 hr tablet, 150 mg PO BID 12/09/23 12/09/23 12/09/23 08:00 extended release gabapentin 300 mg capsule 300 mg PO TID 12/09/23 12/09/23 12/09/23 16:00 haloperidol 10 mg tablet 10 mg PO BID 12/09/23 12/09/23 12/09/23 08:00 lithium carbonate 300 mg tablet 300 mg PO BID 12/09/23 12/09/23 12/09/23 16:00 lithium carbonate 600 mg capsule 600 mg PO 12/09/23 12/09/23 12/08/23 Active Medications Generic Name Dose Route Start Last Admin Trade Name Elizabeth PRN Reason Stop Dose Admin Apixaban 5 mg 12/10/23 09:00 12/10/23 08:51 Apixaban 5 Mg Tablet PO 01/09/24 08:59 5 mg AMHS RENU Administration Benztropine Mesylate 0.5 mg 12/10/23 09:00 12/10/23 08:51 Benztropine Mesylate 0.5 Mg Tab PO 01/09/24 08:59 0.5 mg BID RENU Administration Famotidine 20 mg 12/10/23 09:00 12/10/23 08:49 Famotidine 20 Mg Tab PO 01/09/24 08:59 20 mg BID RENU Administration Gabapentin 300 mg 12/10/23 09:00 12/10/23 08:48 Gabapentin 300 Mg Cap PO 01/09/24 08:59 300 mg TID RENU Administration Haloperidol 10 mg 12/10/23 09:00 12/10/23 08:51 Haloperidol 5 Mg Tab PO 01/09/24 08:59 10 mg BID RENU Administration Ceftriaxone Sodium 2,000 mg/ 50 mls @ 100 mls/hr 12/10/23 01:00 12/10/23 01:33 Dextrose IV 12/20/23 00:59 Infused Q24H RENU Infusion Protocol Sodium Chloride 1,000 mls @ 80 mls/hr 12/10/23 01:49 12/10/23 09:00 Nss IV 12/10/23 14:18 0 mls/hr .[id number] RENU Infusion Levothyroxine Sodium 50 mcg 12/10/23 06:30 12/10/23 06:18 Levothyroxine Sodium 50 Mcg Tablet PO 01/09/24 06:29 50 mcg DAILYBB RENU Administration [place] Carbonate 300 mg 12/10/23 07:30 12/10/23 07:34 [place] Carbonate 300 Mg Tab PO 01/09/24 07:29 300 mg BID@0730,1200 RENU Administration Naltrexone HCl 50 mg 12/10/23 09:00 12/10/23 08:52 Naltrexone Hcl 50 Mg Tab PO 01/09/24 08:59 50 mg DAILY RENU Administration Olanzapine 20 mg 12/10/23 09:00 12/10/23 08:48 Olanzapine 20 Mg Tablet PO 01/09/24 08:59 20 mg DAILY RENU Administration Pantoprazole Sodium 40 mg 12/10/23 09:00 12/10/23 08:49 Pantoprazole 40 Mg Tab PO 01/09/24 08:59 40 mg QAM RENU Administration Propranolol HCl 40 mg 12/10/23 09:00 12/10/23 08:50 Propranolol Hcl 20 Mg Tab PO 01/09/24 08:59 Not Given BID RENU
[2023-12-10] MEDS: LACOSAMIDE 50 MG TABLET PO SCH (12:38)
--- NOTE | 2023-12-10 12:58 | Psychiatric Consultation ---
Date of Consultation December 10, 2023 Impression / Recommendations Impression Delfina has multiple psychiatric diagnoses including bipolar disorder, borderline personality disorder, PTSD and history of eating disorder, self-harm, and suicide attempts with chronic intermittent SI and auditory hallucinations. We reviewed her psychiatric medications which she finds helpful and denies any current side effects or concerns with. Since October it appears her olanzapine was discontinued and replaced with haldol which she finds more beneficial. She is agreeable to being off the Wellbutrin given risk for lowered seizure threshold and feels her mood is currently stable and denies any current symptoms of depression. Reviewed possible option for this to be restarted in the future with her outpatient psychiatric provider should it be determined that this event was due to a syncopal episode rather than a seizure. If it was indeed a seizure then reviewed that an SSRI or SNRI would be preferred if needed in the future. Acute risk of self-harm is low given denial of SI. Chronic risk is high given many non-modifiable risk factors but also with some protective factors including outpatient providers, some coping skills and supportive and his extended family. Overall, I spent a total of 60 minutes with this case including review of chart records, review of labwork, review of EKG QTc, direct evaluation of the patient at bedside, counseling the patient, discussion of the patient with the hospitalist provider, discussion with the psychiatric liason during clinical rounds and documentation in the electronic health record. (1) Syncope and collapse: (2) Seizure-like activity: (3) Borderline personality disorder: (4) Bipolar disorder: Active/Remission status: currently active Current bipolar episode type: depressed Psychotic features: with psychotic features (5) PTSD (post-traumatic stress disorder): Plan -Psychiatric medications reviewed and dosages confirmed. Continue: * Carrick carbonate 300mg qAM & qnoon & 600mg HS * Haldol 10mg BID * Doxepin 25mg HS * Naltrexone 50mg daily * Benztropine 0.5mg BID (ideally could be transitioned to prn in the future, she can discuss this option with her outpatient psychiatrist) -Olanzapine discontinued -Agree with discontinuation of Wellbutrin given concern for seizure event Psych History Identifying Data 23 yo woman with a fairly extensive psychiatric history and complex medical history admitted medically after seizure vs syncopal episode. Psychiatry consulted for help with her psychiatric medication recommendations. Chief Complaint "I'm feeling better today". History of Present Illness Delfina is well known to the psychiatry service from previous inpatient admissions on the [facility]. She recalls an episode resembling a seizure, resulting in a fall. The event was witnessed by her [id number], who attempted revival using a sternum rub, but she did not respond. A subsequent episode occurred later the same day, leading to her return to the hospital for additional assessment. Her emotional state has been consistent, with no suicidal ideation reported. The current medication regimen includes lithium, naltrexone, doxepin, and Haldol. She knows and states that Wellbutrin was discontinued yesterday due to concerns about its potential to exacerbate seizure activity. She denies any recent bingeing or purging behaviors. Auditory hallucinations are stable and quiet. She describes them as infrequent and not disruptive. There have been no recent acts of self-harm. She is seeing Dr. Douglas for psychiatry and has a case technician. She isn't doing therapy currently due to insurance issues. About a week ago she was psychiatrically hospitalized at [facility] for about 10 days but reports no medication changes during her stay. Currently, she is not employed and has been out of work for the last several months. Allergies Allergy/AdvReac Type Severity Reaction Status Date / Time vancomycin Allergy Intermediate Red/Itchy Verified 12/09/23 20:24 skin Home Medications Medication Instructions Recorded Confirmed Type apixaban 5 mg tablet (Eliquis) 5 mg PO [facility] 07/27/22 12/09/23 History propranolol 40 mg tablet 40 mg PO BID 07/27/22 12/09/23 History famotidine 20 mg tablet 20 mg PO BID 10/13/22 12/09/23 History omeprazole 40 mg capsule,delayed 40 mg PO [facility] 01/23/23 12/09/23 History release levothyroxine 50 mcg tablet 50 mcg PO DAILY 04/08/23 12/09/23 History norethindrone (contraceptive) 0.35 0.35 mg PO DAILY 04/11/23 12/09/23 History mg tablet doxepin 25 mg capsule 25 mg PO HS 08/30/23 12/09/23 History naltrexone 50 mg tablet 50 mg PO DAILY 08/30/23 12/09/23 History olanzapine 20 mg tablet 20 mg PO DAILY HS 08/30/23 12/09/23 History benztropine 0.5 mg tablet 0.5 mg PO BID 12/09/23 12/09/23 History bupropion HCl 150 mg 24 hr tablet, 150 mg PO BID 12/09/23 12/09/23 History extended release gabapentin 300 mg capsule 300 mg PO TID 12/09/23 12/09/23 History haloperidol 10 mg tablet 10 mg PO BID 12/09/23 12/09/23 History lithium carbonate 300 mg tablet 300 mg PO BID 12/09/23 12/09/23 History lithium carbonate 600 mg capsule 600 mg PO HS 12/09/23 12/09/23 History Patient History Medical History Suicidal ideation Auditory hallucinations Spherocytosis Involuntary commitment Depression with suicidal ideation MDD (major depressive disorder), recurrent, severe, with psychosis Depression with suicidal ideation Eating disorder, unspecified Suicidal ideation Major depressive disorder with psychotic features Major depression Thrombocytosis Intermittent asthma PTSD (post-traumatic stress disorder) Portal vein thrombosis Superior mesenteric vein thrombosis Asplenia Brock brock disease Surgical History History of splenectomy Family History Denies family history of Coronary heart disease Social History Smoking Status: Never smoker Second Hand Exposure: No; Do You Dip or Chew Tobacco: No; Tobacco Cessation Education Requested by Patient: No Hx Alcohol Use: No Hx Substance Use: No Preferred Language: Belarusian Communication Ability: Effective [employer]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 Beliefs That Will Affect Care: None marital status: Current Living Situation: Spouse and Family How many Children do You have: 0 Other Information That Helps Us Care for You: No Feels Safe at Home: Yes Safety Concerns: Feels Safe At This Time Gender Identity: Female Assistive Devices: None Physical Exam Psychiatric: Orientation: alert and oriented x 3 Apperance: appropriately dressed and appropriately groomed Eye Contact: good eye contact Motor Behavior: no abnormal motor movements Speech: normal rate/rhythm/volume of speech Affect: euthymic affect Mood: no depressed mood and no anxious mood Thought Process: linear/logical thought process Thought Content: reality based without delusions Suicidal Thoughts: denies suicidal thoughts Homicidal Thoughts: denies homicidal thoughts Hallucinations: + auditory hallucinations (quiet and easy to ignore); no visual hallucinations Cognition: recent memory grossly intact, remote memory grossly intact, attention grossly intact and language grossly intact Insight: + fair insight Judgment: + fair judgement Vital Signs (Past 24 Hours): Last Vital Signs Temp 36.8 C 12/10/23 11:18 Pulse 80 12/10/23 11:18 Resp 16 12/10/23 11:18 BP 111/73 12/10/23 11:18 Pulse Ox 97 12/10/23 11:18 O2 Del Method Room Air 12/10/23 11:18 Results & Data (PSY) Medications Administered Apixaban (Apixaban 5 Mg Tablet) 5 mg PO [facility]U Stop: 01/09/24 08:59 Last Admin: 12/10/23 08:51 Dose: 5 mg Documented By: Benztropine Mesylate (Benztropine Mesylate 0.5 Mg Tab) 0.5 mg PO BID [facility]U Stop: 01/09/24 08:59 Last Admin: 12/10/23 08:51 Dose: 0.5 mg Documented By: Famotidine (Famotidine 20 Mg Tab) 20 mg PO BID R[facility]U Stop: 01/09/24 08:59 Last Admin: 12/10/23 08:49 Dose: 20 mg Documented By: Gabapentin (Gabapentin 300 Mg Cap) 300 mg PO TID [facility] Stop: 01/09/24 08:59 Last Admin: 12/10/23 08:48 Dose: 300 mg Documented By: Haloperidol (Haloperidol 5 Mg Tab) 10 mg PO BID [facility] Stop: 01/09/24 08:59 Last Admin: 12/10/23 08:51 Dose: 10 mg Documented By: Ceftriaxone Sodium 2,000 mg/ (Dextrose) 50 mls @ 100 mls/hr IV Q24H [facility]; Protocol Stop: 12/20/23 00:59 Last Infusion: 12/10/23 01:33 Dose: Infused Documented By: Admin: 12/10/23 01:13 Dose: 100 mls/hr Documented By: JACQUES Sodium Chloride (Nss) 1,000 mls @ 80 mls/hr IV .[id number] R[facility]U Stop: 12/10/23 14:18 Last Infusion: 12/10/23 09:00 Dose: 0 mls/hr Documented By: Admin: 12/10/23 02:11 Dose: 80 mls/hr Documented By: MAURICE Lacosamide (Lacosamide 50 Mg Tablet) 100 mg PO BID [facility] Stop: 01/09/24 11:44 Last Admin: 12/10/23 12:38 Dose: 100 mg Documented By: Levothyroxine Sodium (Levothyroxine Sodium 50 Mcg Tablet) 50 mcg PO DAILYBB [facility]U Stop: 01/09/24 06:29 Last Admin: 12/10/23 06:18 Dose: 50 mcg Documented By: MAURICE Carrick Carbonate (Carrick Carbonate 300 Mg Tab) 300 mg PO BID@0730,1200 [facility] Stop: 01/09/24 07:29 Last Admin: 12/10/23 12:38 Dose: 300 mg Documented By: Admin: 12/10/23 07:34 Dose: 300 mg Documented By: Naltrexone HCl (Naltrexone Hcl 50 Mg Tab) 50 mg PO DAILY [facility] Stop: 01/09/24 08:59 Last Admin: 12/10/23 08:52 Dose: 50 mg Documented By: Pantoprazole Sodium (Pantoprazole 40 Mg Tab) 40 mg PO QAM [facility] Stop: 01/09/24 08:59 Last Admin: 12/10/23 08:49 Dose: 40 mg Documented By: Propranolol HCl (Propranolol Hcl 20 Mg Tab) 40 mg PO BID [facility] Stop: 01/09/24 08:59 Last Admin: 12/10/23 08:50 Dose: Not Given Documented By: Coding Level of Care Code 09840 IN/OBS CONSULT LVL 4,60M Diagnoses Syncope and collapse R55 Seizure-like activity R56.9 Borderline personality disorder F60.3 Bipolar disorder F31.9 Active/Remission status: currently active Current bipolar episode type: depressed Psychotic features: with psychotic features PTSD (post-traumatic stress disorder) F43.10
--- NOTE | 2023-12-10 13:32 | Electrocardiogram Report ---
Test Reason : Blood Pressure : / mmHG Vent. Rate : 091 BPM Atrial Rate : 091 BPM P-R Int : 172 ms QRS Dur : 096 ms QT Int : 364 ms P-R-T Axes : 027 057 020 degrees QTc Int : 447 ms Normal sinus rhythm Incomplete right bundle branch block Nonspecific T wave abnormality Abnormal ECG When compared with ECG of 09-DEC-2023 11:36, No significant change was found Confirmed by Yeison Ko ([id number]) on 12/10/2023 1:32:01 PM Referred By: REFERRED SELF Confirmed By:Linden Ko
--- NOTE | 2023-12-10 15:37 | Communication Note ---
Date of Service: December 10, 2023 Patient seen and examined at bedside. She is comfortable; not in distress. No seizures overnight Appreciate neurology input; Wellbutrin stopped Started on 100mg lacosamide BID. EKG obtained yesterday shows normal sinus rhythm with incomplete right bundle branch block. Nonspecific T wave changes. Continue to monitor inpatient Seizure precaution Continue telemonitoring EEG pending. Benzodiazepine for breakthrough seizures. Physical exam; Constitutional: WD/WN, vitals as above, NAD, sitting up in bed, pleasant, conversing easily Respiratory: normal respiratory effort, lungs clear to auscultation, no wheeze, rales, rhonchi. Normal insp/exp effort, no accessory muscle use Cardiovascular: RRR, no murmur, no edema Vessels: no JVD or carotid bruit Chest: normal inspection of chest Abdomen: normal bowel sounds, soft, nontender, no hepatosplenomegaly Musculoskeletal: no cyanosis or clubbing, extremities motor strength 5/5 Skin: no rashes, warm and dry normal turgor Neurologic: PERRL, EOMI, accommodation nl, no face palsy, no dysarthria CN's II- XI intact bilaterally and moves all extremities Psychiatric: A+Ox3, euthymic affect
[2023-12-10] MEDS: ACETAMINOPHEN 325 MG TAB PO PRN (15:57)
[2023-12-10] MEDS: DOXEPIN HCL 25 MG CAPSULE PO SCH (20:15)
--- NOTE | 2023-12-11 06:33 | Electroencephalogram ---
EEG Procedure Note Date of Service December 10, 2023 Start / End Times Start Time: 10:33 End Time: 10:[address] Toi Dorado History A 23 year old female with seizure. EEG performed for evaluation of epileptiform activity. Home Medication List Medication Instructions Recorded Confirmed Type apixaban 5 mg tablet (Eliquis) 5 mg PO [facility] 07/27/22 12/09/23 History propranolol 40 mg tablet 40 mg PO BID 07/27/22 12/09/23 History famotidine 20 mg tablet 20 mg PO BID 10/13/22 12/09/23 History omeprazole 40 mg capsule,delayed 40 mg PO QAM 01/23/23 12/09/23 History release levothyroxine 50 mcg tablet 50 mcg PO DAILY 04/08/23 12/09/23 History norethindrone (contraceptive) 0.35 0.35 mg PO DAILY 04/11/23 12/09/23 History mg tablet doxepin 25 mg capsule 25 mg PO HS 08/30/23 12/09/23 History naltrexone 50 mg tablet 50 mg PO DAILY 08/30/23 12/09/23 History olanzapine 20 mg tablet 20 mg PO DAILY HS 08/30/23 12/09/23 History benztropine 0.5 mg tablet 0.5 mg PO BID 12/09/23 12/09/23 History bupropion HCl 150 mg 24 hr tablet, 150 mg PO BID 12/09/23 12/09/23 History extended release gabapentin 300 mg capsule 300 mg PO TID 12/09/23 12/09/23 History haloperidol 10 mg tablet 10 mg PO BID 12/09/23 12/09/23 History lithium carbonate 300 mg tablet 300 mg PO BID 12/09/23 12/09/23 History lithium carbonate 600 mg capsule 600 mg PO HS 12/09/23 12/09/23 History Inpatient Medication List Acetaminophen (Acetaminophen 325 Mg Tab) 650 mg PO Q4H PRN PRN Reason: Pain or Fever Stop: 01/09/24 01:48 Last Admin: 12/10/23 21:08 Dose: 650 mg Documented By: Admin: 12/10/23 15:57 Dose: 650 mg Documented By: Apixaban (Apixaban 5 Mg Tablet) 5 mg PO [facility] [address] Stop: 01/09/24 08:59 Last Admin: 12/10/23 20:15 Dose: 5 mg Documented By: Admin: 12/10/23 08:51 Dose: 5 mg Documented By: Benztropine Mesylate (Benztropine Mesylate 0.5 Mg Tab) 0.5 mg PO BID [facility] Stop: 01/09/24 08:59 Last Admin: 12/10/23 20:15 Dose: 0.5 mg Documented By: Admin: 12/10/23 08:51 Dose: 0.5 mg Documented By: Doxepin HCl (Doxepin Hcl 25 Mg Capsule) 25 mg PO HS [facility] Stop: 01/09/24 20:59 Last Admin: 12/10/23 20:15 Dose: 25 mg Documented By: MAURICE Famotidine (Famotidine 20 Mg Tab) 20 mg PO BID [facility] Stop: 01/09/24 08:59 Last Admin: 12/10/23 20:15 Dose: 20 mg Documented By: Admin: 12/10/23 08:49 Dose: 20 mg Documented By: Gabapentin (Gabapentin 300 Mg Cap) 300 mg PO TID [facility] Stop: 01/09/24 08:59 Last Admin: 12/10/23 20:15 Dose: 300 mg Documented By: Admin: 12/10/23 14:14 Dose: 300 mg Documented By: Admin: 12/10/23 08:48 Dose: 300 mg Documented By: Haloperidol (Haloperidol 5 Mg Tab) 10 mg PO BID [facility] Stop: 01/09/24 08:59 Last Admin: 12/10/23 20:16 Dose: 10 mg Documented By: Admin: 12/10/23 08:51 Dose: 10 mg Documented By: Ceftriaxone Sodium 2,000 mg/ (Dextrose) 50 mls @ 100 mls/hr IV Q24H [facility]; Protocol Stop: 12/20/23 00:59 Last Infusion: 12/11/23 00:59 Dose: Infused Documented By: Admin: 12/11/23 00:25 Dose: 100 mls/hr Documented By: Infusion: 12/10/23 01:33 Dose: Infused Documented By: Admin: 12/10/23 01:13 Dose: 100 mls/hr Documented By: JACQUES Lacosamide (Lacosamide 50 Mg Tablet) 100 mg PO BID [facility] Stop: 01/09/24 11:44 Last Admin: 12/10/23 21:04 Dose: 100 mg Documented By: Admin: 12/10/23 12:38 Dose: 100 mg Documented By: Levothyroxine Sodium (Levothyroxine Sodium 50 Mcg Tablet) 50 mcg PO DAILYBB [facility] Stop: 01/09/24 06:29 Last Admin: 12/11/23 06:28 Dose: 50 mcg Documented By: Admin: 12/10/23 06:18 Dose: 50 mcg Documented By: MAURICE [place] Carbonate ([place] Carbonate 300 Mg Tab) 600 mg PO HS [facility] Stop: 01/09/24 20:59 Last Admin: 12/10/23 20:16 Dose: 600 mg Documented By: MAURICE [place] Carbonate ([place] Carbonate 300 Mg Tab) 300 mg PO BID@0730,1200 [facility] Stop: 01/09/24 07:29 Last Admin: 12/10/23 12:38 Dose: 300 mg Documented By: Admin: 12/10/23 07:34 Dose: 300 mg Documented By: Naltrexone HCl (Naltrexone Hcl 50 Mg Tab) 50 mg PO DAILY [facility] Stop: 01/09/24 08:59 Last Admin: 12/10/23 08:52 Dose: 50 mg Documented By: Pantoprazole Sodium (Pantoprazole 40 Mg Tab) 40 mg PO QAM [facility] Stop: 01/09/24 08:59 Last Admin: 12/10/23 08:49 Dose: 40 mg Documented By: Propranolol HCl (Propranolol Hcl 20 Mg Tab) 40 mg PO BID [facility] Stop: 01/09/24 08:59 Last Admin: 12/10/23 20:16 Dose: 40 mg Documented By: Admin: 12/10/23 08:50 Dose: Not Given Documented By: Discontinued Medications Gadobutrol (Gadobutrol 65ml Vial) 6 ml IV ONCE ONE Stop: 12/10/23 09:46 Last Admin: 12/10/23 09:42 Dose: 6 ml Documented By: ELSI Sodium Chloride (Nss) 1,000 mls @ 80 mls/hr IV .[id number] [facility] Stop: 12/10/23 14:18 Last Infusion: 12/10/23 15:25 Dose: Infused Documented By: Infusion: 12/10/23 09:00 Dose: 0 mls/hr Documented By: Admin: 12/10/23 02:11 Dose: 80 mls/hr Documented By: MAURICE Ioversol (Optiray 320 125ml) 125 ml IV ONCE ONE Stop: 12/10/23 00:48 Last Admin: 12/10/23 00:48 Dose: 118 ml Documented By: KATHY Olanzapine (Olanzapine 20 Mg Tablet) 20 mg PO DAILY [facility] Stop: 01/09/24 08:59 Last Admin: 12/10/23 08:48 Dose: 20 mg Documented By: Description This is a 21 electrode EEG with a single channel dedicated to limited EKG. The electrodes were placed in accordance with the International 10-20 system. REPORT: At the onset of the EEG, the patient is awake. The background activity consist of 10 Hz, persistent, posteriorly dominant, moderate amplitude, symmetric and rhythmic activity that is reactive to eye opening. Anteriorly, it consist of a mixture of low voltage indeterminate activity and 15-25 Hz, persistent, low amplitude, symmetric and rhythmic activity. Stepwise intermittent photic stimulation (1-21 Hz)does not induce any abnormalities. Drowsiness is characterized by low amplitude mixed frequency activity, roving eye movements, and decreased eye blinking and muscle artifact. Stage II sleep is characterized by sleep spindles, vertex waves, and K complexes. Interpretation IMPRESSION: This is a normal awake and asleep routine EEG. There is no evidence of focal slowing or epileptiform activity.
[2023-12-11 07:33] LABS: Basophils # (auto) 0.08 K/uL (0.00-0.20); Basophils % (auto) 0.7 %; Eosinophils # (auto) 0.39 K/uL (0.00-0.50); Eosinophils % (auto) 3.5 %; Hematocrit (blood only) 38.2 % (37.0-47.0); Hemoglobin 12.9 g/dl (12.0-16.0); Immature Granulocytes # (auto) 0.02 K/uL (0.01-0.20); Immature Granulocytes % (auto) 0.2 %; Lymphocytes # (auto) 3.18 K/uL (1.20-3.40); Lymphocytes % (auto) 28.7 %; Mean Corpuscular Hgb Conc 33.8 g/dL (32.0-36.0); Mean Corpuscular Volume 91.8 fL (80.0-100.0); Mean Platelet Volume 8.9 fL (9.4-12.4); Monocytes # (auto) 1.27 K/uL (0.11-0.59); Monocytes % (auto) 11.5 %; Neutrophils # (auto) 6.13 K/uL (1.40-6.50); Neutrophils % (auto) 55.4 %; Nucleated RBC # (auto) 0.02 K/uL (0.00-0.12); Nucleated RBC % (auto) 0.2 %; Platelet Count 645 K/uL (130-400); RDW Coefficient of Variation 13.4 % (11.5-14.5); RDW Standard Deviation 45.1 fL (36.4-46.3); Red Blood Count 4.16 M/uL (4.20-5.40); White Blood Count 11.07 K/ul (4.8-10.8)
[2023-12-11 08:06] LABS: BUN Creatinine Ratio 8.4 (10-20); Calcium 9.5 mg/dl (8.6-10.3); Creatinine Clr Calc Pharmacy 89.5 ml/min; Est GFR (African American) 113.6 ml/min
--- NOTE | 2023-12-11 14:17 | Discharge Summary ---
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 Patient was in the ER earlier in the day with brief unresponsive episode ,possible syncope versus seizures and workup was okay and she was discharged. After going home she seems to had a 3 minutes of tonic-clonic seizures and had 3 minutes of postictal state. Currently patient is alert and awake and oriented. Complains of a headache. Mild nausea. Denies any chest pain. No shortness of breath. Vision is okay. No sore throat or cough. No fevers. No nausea no abdominal pain. Normal bowel and bladder movements. Hemodynamics are okay. ER discussed with [facility] neurology and plan to do CTA head and neck and if they are okay to monitor in [facility] and plan to do MRI and an EEG.. No antiepileptics for now. Patient was admitted in August 2023 with suicidal ideation at the time she also found to COVID and was seen by psychiatry.Currently denies any thoughts to hurt herself. Past medical history. As mentioned above Past surgical history. Catheter placement internal carotid artery. Fusion of skull arteries. Nasal surgery for deviated septum. Removal of total splint. Sinus surgery. Spinal fluid tap. Drainage. Stereotactic cranial intradural navigation. Vertebral artery catheter placement. Social history. . No smoking. Alcohol rarely. No drug use. Family history. Father has allergies. Mother has allergies. Maternal grandfather had coronary disease. Maternal grandmother had dementia. Primary Care Provider: Kinsey Chaparro PA-C Admission Exam Per Admitting Provider General- adult Head- atraumatic Eyes- PERRL. ENT- oropharynx clear Neck- supple, no JVD. Lungs- clear to auscultation no wheezing or crackles Heart- regular rhythm; no murmur, no gallop. Abdomen- normal bowel sounds, soft, nontender, no distension Extremities- no pretibial edema, no erythema Neuro- alert, oriented PERRL, no facial palsy; no dysarthria; moves extremities, obeys simple commands Principal Diagnosis Seizure-like activity Discharge Exam GENERAL: Alert and oriented x3. NAD, on RA. No SI/HI. HEENT: No pallor, no icterus. Pupils equal, round and reactive to light. Oral mucosa moist. NECK: No JVD, no neck masses. HEART: S1 and S2 heard. Regular rate and rhythm. No murmur, no gallop. RESPIRATORY SYSTEM: Normal AP diameter. No accessory muscle use. No wheezing, no crackles. ABDOMEN: Soft, bowel sounds present, nontender, no distention. CENTRAL NERVOUS SYSTEM: No facial droop. Speech is clear. Obeys simple commands. Moves extremities. EXTREMITIES: No edema, no erythema seen. Discharge Data Allergies Allergy/AdvReac Type Severity Reaction Status Date / Time vancomycin Allergy Intermediate Red/Itchy Verified 12/09/23 20:24 skin Consultations 12/09/23 23:18 ED Decision to Admit Stat 12/10/23 08:00 Consult Neurology Routine Consult Psychiatry Routine Ordered Studies 12/09/23 20:41 CT head/brain wo con Stat 12/09/23 23:18 CT angio head w con Stat 12/10/23 00:06 CTA neck with con [CT angio neck with con] Stat 12/10/23 07:09 MRI Brain [MR brain wo/w con] Routine Hospital Course (1) Seizure-like activity: Per prior attending with addendum: 23-year-old female with past med history significant for hyperprolactinemia, intermittent asthma, allergic rhinitis, history of thrombosis of mesenteric vein, history of portal vein thrombosis, 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 Patient was in the ER earlier in the day with brief unresponsive episode ,possible syncope versus seizures and workup was okay and she was discharged. After going home she seems to had a 3 minutes of tonic-clonic seizures and had 3 minutes of postictal state. Currently patient is alert and awake and oriented. Complains of a headache. Mild nausea. Denies any chest pain. No shortness of breath. Vision is okay. No sore throat or cough. No fevers. No nausea no abdominal pain. Normal bowel and bladder movements. Hemodynamics are okay. ER discussed with [facility] neurology and plan to do CTA head and neck and if they are okay to monitor in [facility] and plan to do MRI and an EEG.. No antiepileptics for now. Patient was admitted in August 2023 with suicidal ideation at the time she also found to COVID and was seen by psychiatry.Currently denies any thoughts to hurt herself. Seizure-like activity As mentioned in H&P ER discussed with neurology [facility] Antiseizure medication for now Will follow CTA head and neck if unremarkable will follow-up with EEG and MRI scan Seizure precautions IV Ativan as needed Will hold Wellbutrin Telemetry Consult neurology in a.m. for further recommendations UTI Started Rocephin Will follow cultures History of thrombosis of mesenteric vein History of portal vein thrombosis On Eliquis History of moyamoya disease S/p STA-MCA bypass History of severe depression Schizoaffective disorder depression type PTSD Borderline personality disorder Holding Wellbutrin for seizure potential Continue other home psych medications Will count psychiatry to help with her medications GERD On famotidine and omeprazole DVT prophylaxis On Eliquis Disposition Telemetry Full code Addendum 12/11/2023: Patient was seen and examined at bedside as a follow-up of seizure-like activity and UTI. Patient is hemodynamically stable, no SI/HI. EEG is done, normal EEG reported. Neurology and psychiatry had evaluated the patient, recommendations noted. Olanzapine and Wellbutrin has been discontinued, lacosamide has been started. Patient to follow-up with neurology and psychiatry upon discharge. Patient to not drive until cleared by neurology as an outpatient. DMV notified by prior attending. She is being discharged with following instruction at the point of discharge: Follow-up with your primary care physician within a week time and likely you will need labs CBC/CMP/magnesium/phosphorus. For your seizure-like activity, neurology evaluated. You have been started on lacosamide 100 mg twice a day. You will need to follow-up with neurology in 2 to 4 weeks time upon discharge. As discussed at the bedside, you are not to drive vehicles until cleared by neurology as an outpatient. Psychiatry also evaluated you while in the hospital. Olanzapine and Wellbutrin has been discontinued. Follow-up with your psychiatry in 2 to 4 weeks time upon discharge. You will be discharged on antibiotic to complete the course for UTI. Take your medications as prescribed. Please make sure that you are able to get your medications today by calling your pharmacy before you leave the hospital so that your treatment continuity is not broken. Home Health Attestation I certify that this patient is under my care and that I, or a physicians print shop assistant working with me, had a face to-face encounter that meets the home health [id number] encounter requirements with this patient. The encounter with the patient was in whole, or in part, for the following medical condition, which is the primary reason for home health care (list medical condition): I certify that, based on my findings, the following services are medically necessary home health services: My clinical findings support the need for the above services because: Further, I certify that my clinical findings support that this patient is homebound (i.e. absences from home require considerable and taxing effort and are for medical reasons or yazidism services or infrequently or of short duration when for other reasons) because: Certification for Home Health Services: Based on the above findings, I certify that this patient is confined to the home and needs intermittent prison care, physical therapy and/or speech therapy or continues to need occupational therapy. The patient is under my care, and I have initiated the establishment of the plan of care. This patient will be followed by a physician who will periodically review the plan of care. Total Time Total Time Spent Total Time Spent (In Minutes): 45 Discharge Plan Discharge Items Patient Disposition: Home - Self-Care Reason For Visit: SEIZURE Discharge Diagnosis: Seizure-like activity Activity: Resume your previous activity Non-emergency contact: Primary Care Provider Call non-emergency contact if: you have any medication questions and your symptoms worsen Follow-up/Referrals: Kinsey Chaparro PA-C [Primary Care Provider] - Diet: Heart Healthy Addtl Attending Provider Instructions: Follow-up with your primary care physician within a week time and likely you will need labs CBC/CMP/magnesium/phosphorus. For your seizure-like activity, neurology evaluated. You have been started on lacosamide 100 mg twice a day. You will need to follow-up with neurology in 2 to 4 weeks time upon discharge. As discussed at the bedside, you are not to drive vehicles until cleared by neurology as an outpatient. Psychiatry also evaluated you while in the hospital. Olanzapine and Wellbutrin has been discontinued. Follow-up with your psychiatry in 2 to 4 weeks time upon discharge. You will be discharged on antibiotic to complete the course for UTI. Take your medications as prescribed. Please make sure that you are able to get your medications today by calling your pharmacy before you leave the hospital so that your treatment continuity is not broken. Pending Studies at Discharge: No Stand-Alone Forms: My [facility], Smoking Cessation Medications and DC Order Prescriptions: New lacosamide [Vimpat] 50 mg Tablet 100 mg PO BID Qty: 120 0RF cefdinir 300 mg capsule 300 mg PO BID 5 Days Qty: 10 0RF Probiotic 3 billion cell capsule 3,000 mmu cells PO DAILY 7 Days Qty: 7 0RF Rx Instructions: administer with a meal Continued famotidine 20 mg Tablet 20 mg PO BID Eliquis 5 mg tablet 5 mg PO AMHS propranolol 40 mg tablet 40 mg PO BID omeprazole 40 mg capsule,delayed release(DR/EC) 40 mg PO QAM levothyroxine 50 mcg tablet 50 mcg PO DAILY norethindrone (contraceptive) 0.35 mg tablet 0.35 mg PO DAILY Rx Instructions: LAST FILLED 09/21/23 FOR 28 DAYS. naltrexone 50 mg tablet 50 mg PO DAILY doxepin 25 mg capsule 25 mg PO HS benztropine 0.5 mg tablet 0.5 mg PO BID lithium carbonate 600 mg capsule 600 mg PO HS gabapentin 300 mg capsule 300 mg PO TID haloperidol 10 mg tablet 10 mg PO BID lithium carbonate 300 mg tablet 300 mg PO BID Rx Instructions: Take 300mg in the morning and afternoon Discontinued olanzapine 20 mg tablet 20 mg PO DAILY Rx Instructions: NOT ON PT'S MED LIST, LAST FILLED 10/31/23 FOR 30 TABS. bupropion HCl 150 mg tablet extended release 24 hr 150 mg PO BID Discharge Orders: Discharge Order (Routine); Ordered 12/11/23 Ordered By: Andi Ferguson Admission Data Admit Date/Time: 12/10/23 00:42 Attending Provider: Andi Ferguson Admit Provider: Toi Dorado Primary Care Provider: Kinsey Chaparro Other Providers: Toi Dorado; Cathi Wheeler; Sandeep Ho; Cathi Valadez; Earl Grimes; Soto Salter; Nash Martinez; Asim Purdy; Wendy Solorio; Ian Maguire; Tyler Sumner; Gayle Foss; Matt Rene; Kinsey Calabrese; Thi Rod; Asim Valdes; Alma Rosa Mendez; Deepthi Mayo; Earl Schaefer; Reece Junior Jr; Ines Castañeda; Charlene Perez
== END 2023-12-11 17:24 | disposition home or self-care (01) | DRG 101 ==
LOC: ED 19:24 → 2S 12-10 00:42 → SUATTDRO 12-10 00:42 → 2S 12-10 01:31

== ENCOUNTER 2024-01-25 17:15 | Inpatient (IN) ==
[2024-01-25 19:00] LABS: Basophils # (auto) 0.08 K/uL (0.00-0.20); Basophils % (auto) 0.7 %; Eosinophils # (auto) 0.43 K/uL (0.00-0.50); Eosinophils % (auto) 3.6 %; Hematocrit (blood only) 38.1 % (37.0-47.0); Hemoglobin 13.3 g/dl (12.0-16.0); Immature Granulocytes # (auto) 0.02 K/uL (0.01-0.20); Immature Granulocytes % (auto) 0.2 %; Lymphocytes % (auto) 37.3 %; Mean Corpuscular Hemoglobin 31.7 pg (25.0-34.0); Mean Corpuscular Hgb Conc 34.9 g/dL (32.0-36.0); Mean Corpuscular Volume 90.7 fL (80.0-100.0); Mean Platelet Volume 9.2 fL (9.4-12.4); Monocytes # (auto) 1.24 K/uL (0.11-0.59); Monocytes % (auto) 10.3 %; Neutrophils % (auto) 47.9 %; Platelet Count 685 K/uL (130-400); RDW Coefficient of Variation 13.2 % (11.5-14.5); White Blood Count 12.07 K/ul (4.8-10.8)
[2024-01-25 19:13] LABS: Acetaminophen < 3 ug/ml (10-30); Salicylate < 3.0 mg/dl (3.0-30)
[2024-01-25 19:17] LABS: Albumin Globulin Ratio 1.9 (0.9-2); Albumin Level 4.3 gm/dl (3.4-5.0); Bilirubin,Total 0.4 mg/dl (0.2-1.0); Calcium 9.5 mg/dl (8.6-10.3); Creatinine Clr Calc Pharmacy 114.2 ml/min; Est GFR (African American) 132.7 ml/min; Est GFR (Non-African American) 114.5 ml/min; Globulin 2.3 gm/dl (2.5-4.0); Potassium 3.9 mmol/L (3.5-5.1); Total Protein 6.6 gm/dl (6.0-8.3)
[2024-01-25 19:30] LABS: Appearance Urine Clear (Clear); Bilirubin Urine Negative (Negative); Blood Urine Negative (Negative); Color Urine Yellow; Glucose Urine UA Negative (Negative); Ketones Urine Negative (Negative); Leukocyte Esterase Urine Negative (Negative); Nitrite Urine Negative (Negative); Protein Urine Negative (Negative); Specific Gravity Urine 1.008 (1.000-1.030); Urobilinogen Urine Negative (Negative)
[2024-01-25 19:31] LABS: Pregnancy Test, Urine Negative (Negative)
[2024-01-25 19:32] LABS: Thyroid Stimulating Hormone 1.454 uIu/ml (0.300-4.500)
[2024-01-25 20:03] LABS: Amphetamines+Metham, Urine Neg (Neg); Barbiturates, Urine Neg (Neg); Benzodiazepine, Urine Neg (Neg); Cocaine, Urine Neg (Neg); Fentanyl, Urine Neg (Neg); MDMA (Ecstacy), Urine Neg (Neg); Marijuana, Urine Neg (Neg); Methadone, Urine Neg (Neg); Opiate, Urine Neg (Neg); Phencyclidine, Urine Neg (Neg)
--- NOTE | 2024-01-25 21:23 | Emergency Department Note ---
History of Present Illness General Chief complaint: Mental Health Evaluation Stated complaint: MENTAL HEALTH EVAL Time Seen by Provider: 01/25/24 18:09 History of Present Illness Provider complaint: Mental health evaluation Maximum Pain Intensity: 6 23-year-old female presents emergency department for mental health evaluation. Patient states she has plan to cut herself on her wrist so she bleeds to . Patient states she did not attempt this but this was her plan. No plan to overdose on any pills. No chance of . No access to any firearms. Home Medications Medication Instructions Recorded Confirmed Type apixaban 5 mg tablet (Eliquis) 5 mg PO AMHS 07/27/22 01/25/24 History propranolol 40 mg tablet 40 mg PO BID 07/27/22 01/25/24 History famotidine 20 mg tablet 20 mg PO BID 10/13/22 01/25/24 History omeprazole 40 mg capsule,delayed 40 mg PO QAM 01/23/23 01/25/24 History release levothyroxine 50 mcg tablet 50 mcg PO DAILY 04/08/23 01/25/24 History norethindrone (contraceptive) 0.35 0.35 mg PO DAILY 04/11/23 01/25/24 History mg tablet doxepin 25 mg capsule 25 mg PO HS 08/30/23 01/25/24 History naltrexone 50 mg tablet 50 mg PO DAILY 08/30/23 01/25/24 History benztropine 0.5 mg tablet 0.5 mg PO BID 12/09/23 01/25/24 History gabapentin 300 mg capsule 300 mg PO TID 12/09/23 01/25/24 History haloperidol 10 mg tablet 15 mg PO BID 12/09/23 01/25/24 History lithium carbonate 300 mg tablet 300 mg PO BID 12/09/23 01/25/24 History lithium carbonate 600 mg capsule 600 mg PO HS 12/09/23 01/25/24 History lacosamide 50 mg tablet (Vimpat) 100 mg (2 x 50 mg) PO BID #120 tabs 12/11/23 01/25/24 Rx Allergies Allergy/AdvReac Type Severity Reaction Status Date / Time vancomycin Allergy Intermediate Red/Itchy Verified 12/09/23 20:24 skin Past Med/Surg History Problem List (Updated 01/25/24 @ 23:18 by Christopher Wiley MD) Depression with suicidal ideation (Acute) Hx of craniotomy (Acute) Seizure-like activity (Acute) Suicidal ideation COVID-19 (Acute) Bipolar disorder (Acute) Borderline personality disorder MDD (major depressive disorder), recurrent episode, severe (Acute) Subtherapeutic international normalized ratio (INR) (Acute) COVID (Acute) Acquired asplenia (Acute) Elevated platelet count (Acute) Fever (Acute) Elevated LFTs Generalized abdominal pain (Acute) Mesenteric adenitis (Acute) PTSD (post-traumatic stress disorder) Portal vein thrombosis (Acute) Acute vascular insufficiency of intestine (Acute) Asplenia (Acute) Medical History Auditory hallucinations Spherocytosis Involuntary commitment Depression with suicidal ideation MDD (major depressive disorder), recurrent, severe, with psychosis Depression with suicidal ideation Eating disorder, unspecified Suicidal ideation Major depressive disorder with psychotic features Major depression Thrombocytosis Intermittent asthma 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 Surgical History History of splenectomy Family History Denies family history of Coronary heart disease Social History Smoking Status: Never smoker Second Hand Exposure: No; Do You Dip or Chew Tobacco: No; Hx Alcohol Use: No Hx Substance Use: No Preferred Language: Yi Communication Ability: Effective Press Brake Operator Required: No Beliefs That Will Affect Care: None marital status: Current Living Situation: Spouse and Family How many Children do You have: 0 Feels Safe at Home: Yes Gender Identity: Female Assistive Devices: None Physical Exam Vital Signs Vital Signs - 24 hr 01/25/24 17:33 01/25/24 19:36 01/25/24 22:41 Temperature 36.6 C 36.1 C L Temperature Source Temporal Artery Scan Oral Pulse Rate 80 Pulse Rate [Finger] 53 L 67 Pulse Rhythm Regular Pulse Strength Normal Respiratory Rate 18 18 18 Respiratory Effort / Characteristics Non-Labored Spontaneous Non-Labored Spontaneous Non-Labored Spontaneous Respiratory Depth Normal Normal Normal Respiratory Pattern Regular Regular Regular Blood Pressure 110/74 Blood Pressure [Left Arm] 95/62 L 94/61 L Blood Pressure Mean 86 Blood Pressure Mean [Left Arm] 73 72 Blood Pressure Position Sitting Pulse Oximetry 96 97 98 Oxygen Delivery Method Room Air Room Air Room Air Sepsis Recent Fever Within 48 Hours No Sepsis New/Unexplained Change in Mental Status No Sepsis Action Taken by Nursing No Action Required Physical Exam GENERAL: oriented to person, place, and time. appears well-developed and well- nourished. HENT: Exam performed. - Head: Normocephalic and atraumatic. EYES: Conjunctivae and EOM are normal. Right eye exhibits no discharge. Left eye exhibits no discharge. No scleral icterus. NECK: Normal range of motion. Neck supple. No JVD present. CV: Normal rate, regular rhythm, normal heart sounds and intact distal pulses. There is no peripheral edema. Palpable radial pulses bue. PULM/CHEST: Effort normal and breath sounds normal. No respiratory distress. No stridor. no wheezes. no rales. ABD: The abdomen is soft. There is no tenderness. NEURO: Motor and sensation grossly intact. SKIN: Skin is warm and dry. He is not diaphoretic. PSYCH: Abrasions that are well-healed to the bilateral upper extremities from previous cutting attempts. No new wounds. Course Course 1809: The patient was evaluated in room A6. A complete history and physical exam was performed 1930: Patient medically cleared. Awaiting placement and evaluation by psychiatric case management. 8: Patient accepted to 3 S. Medical Decision Making Laboratory Data Attestation: I reviewed the patient's lab results. 01/25/24 18:27 01/25/24 18:27 Lab Results 01/25/24 01/25/24 Range/Units 18:11 18:27 WBC 12.07 H (4.8-10.8) K/ul RBC 4.20 (4.20-5.40) M/uL Hgb 13.3 (12.0-16.0) g/dl Hct 38.1 (37.0-47.0) % MCV 90.7 (80.0-100.0) fL MCH 31.7 (25.0-34.0) pg MCHC 34.9 (32.0-36.0) g/dL RDW Std Deviation 44.0 (36.4-46.3) fL RDW Coeff of Toni 13.2 (11.5-14.5) % Plt Count 685 H (130-400) K/uL MPV 9.2 L (9.4-12.4) fL Immature Gran % (Auto) 0.2 % Neut % (Auto) 47.9 % Lymph % (Auto) 37.3 % [place] % (Auto) 10.3 % Eos % (Auto) 3.6 % Baso % (Auto) 0.7 % Neut # (Auto) 5.80 (1.40-6.50) K/uL Lymph # (Auto) 4.50 H (1.20-3.40) K/uL [place] # (Auto) 1.24 H (0.11-0.59) K/uL Eos # (Auto) 0.43 (0.00-0.50) K/uL Baso # (Auto) 0.08 (0.00-0.20) K/uL Immature Gran # (Auto) 0.02 (0.01-0.20) K/uL Sodium 139 (136-145) mmol/L Potassium 3.9 (3.5-5.1) mmol/L Chloride 109 H (98-107) mmol/L Carbon Dioxide 24 (21-32) mmol/L Anion Gap 6 (3-11) BUN 8 (6-23) mg/dl Creatinine 0.73 (0.6-1.2) mg/dl Est Cr Clr Drug Dosing 114.2 ml/min Est GFR ( Amer) 132.7 ml/min Est GFR (Non-Af Amer) 114.5 ml/min BUN/Creatinine Ratio 11.0 (10-20) Glucose 84 (70-99(Fasting)) mg/dl Calcium 9.5 (8.6-10.3) mg/dl Total Bilirubin 0.4 (0.2-1.0) mg/dl AST 17 (13-39) U/L ALT 21 (7-52) U/L Alkaline Phosphatase 90 (34-104) U/L Total Protein 6.6 (6.0-8.3) gm/dl Albumin 4.3 (3.4-5.0) gm/dl Globulin 2.3 L (2.5-4.0) gm/dl Albumin/Globulin Ratio 1.9 (0.9-2) TSH 1.454 (0.300-4.500) uIu/ml Urine Color Yellow Urine Appearance Clear (Clear) Urine pH 8.0 H (4.5-7.5) Ur Specific [place] 1.008 (1.000-1.030) Urine Protein Negative (Negative) Urine Glucose (UA) Negative (Negative) Urine Ketones Negative (Negative) Urine Blood Negative (Negative) Urine Nitrite Negative (Negative) Urine Bilirubin Negative (Negative) Urine Urobilinogen Negative (Negative) Ur Leukocyte Esterase Negative (Negative) Urine Test Negative (Negative) Salicylates < 3.0 L (3.0-30) mg/dl Urine Opiates Screen Neg (Neg) Ur Methadone, Qual Neg (Neg) Urine Fentanyl Screen Neg (Neg) Acetaminophen < 3 L (10-30) ug/ml Urine Barbiturates Neg (Neg) Ur Phencyclidine (PCP) Neg (Neg) U Amphetamin/Meth Scrn Neg (Neg) MDMA (Ecstasy) Screen Neg (Neg) U Benzodiazepines Scrn Neg (Neg) Ur Cocaine Metabolite Neg (Neg) U Marijuana (THC) Screen Neg (Neg) Ethyl Alcohol mg/dL < 10.0 (<10.0) mg/dl SARS-CoV-2, RNA, NAAT NEGATIVE (NEGATIVE) [facility] Narrative 1809: The patient was evaluated in room A6. A complete history and physical exam was performed 1930: Patient medically cleared. Awaiting placement and evaluation by psychiatric case management. 2318: Patient accepted to 3 [facility]. Impression & Plan Depression with suicidal ideation Discharge Plan Visit Data Chief Complaint: Mental Health Evaluation Stated Complaint: MENTAL HEALTH EVAL ED Provider: Althea Solares Discharge Problem: Depression with suicidal ideation Patient Disposition: Admitted As Inpatient Forms Stand Alone Forms: [facility], Suicide Prevention Resources Prescriptions Prescriptions: No Action famotidine 20 mg Tablet 20 mg PO BID Eliquis 5 mg tablet 5 mg PO AMHS propranolol 40 mg tablet 40 mg PO BID omeprazole 40 mg capsule,delayed release(DR/EC) 40 mg PO QAM levothyroxine 50 mcg tablet 50 mcg PO DAILY norethindrone (contraceptive) 0.35 mg tablet 0.35 mg PO DAILY Rx Instructions: LAST FILLED 09/21/23 FOR 28 DAYS. naltrexone 50 mg tablet 50 mg PO DAILY doxepin 25 mg capsule 25 mg PO HS benztropine 0.5 mg tablet 0.5 mg PO BID lithium carbonate 600 mg capsule 600 mg PO HS gabapentin 300 mg capsule 300 mg PO TID haloperidol 10 mg tablet 15 mg PO BID lithium carbonate 300 mg tablet 300 mg PO BID Rx Instructions: Take 300mg in the morning and afternoon lacosamide [Vimpat] 50 mg Tablet 100 mg PO BID Qty: 120 0RF Referrals Referrals: Kinsey Chaparro PA-C [Primary Care Provider] -
--- OUTSIDE RECORDS SUMMARY | 2024-01-25 22:56 | External Medical Summary | Summary of Care ---
Author Name Unknown Organization [facility] Address [address] [place] [address] Phone [phone] Care Team Providers Care Ornamenter Hand Name Role Phone CourtneyKinsey dove ZAYRA Primary Care Provider [phone] Reason for Visit * Reason Onset Date Comments Other 12/30/2023 Encounter Details Date Type Department Care Team (Late st Contact Info) Description 12/30/2023 Telephone Neurology [facility] [place] [address] [place] [address] Cathi Wheeler PA-C [address] [facility] [place] [address] Other Allergies Active Allergy Reactions Criticality Noted Date Comments Vancomycin Itching 08/03/2019 Redness of skin documented as of this encounter (statuses as of 12/30/2023) Medications Medication Sig Dispensed Refills Start Date [...] BEFORE BEDTIME 60 Tablet 4 08/13/2023 Active Reyvow 50 MG Oral Tablet (Lasmiditan Succinate) 1 at onset of migraine. Max 1 dose in 24 hours. 15 Tablet 0 08/16/2023 Active Dicyclomine HCl 10 MG Oral Capsule (Bentyl)Indications:A bdominal pain, generalized Take 1 Capsule by mouth 4 times a day as needed for Pain, Mild, Pain, Moderate or Cramping. For abdominal pain 360 Capsule 1 08/16/2023 Active Norethindrone 0.35 MG Oral TabletIndications:PMD D (premenstrual dysphoric disorder) Take 1 Tablet by mouth in the morning. 84 Tablet 1 10/08/2023 Active Gabapentin 300 MG Oral Capsule (Neurontin) Take 1 Capsule by mouth in the morning and 1 Capsule at noon and 1 Capsule before bedtime. 0 12/17/2023 Active Emgality 120 MG/ML Subcutaneous Solution Auto-injector (Galcanezumab-gnlm) Inject 1 mL under the skin Every Month. 1 mL 2 12/19/2023 Active Benztropine Mesylate 0.5 MG Oral Tablet (Cogentin) Take 1 Tablet by mouth in the morning and 1 Tablet before bedtime. 0 12/04/2023 Active Lacosamide 50 MG Oral Tablet (Vimpat) Take 2 Tablets by mouth in the morning and 2 Tablets before bedtime. 120 Tablet 2 12/25/2023 Active documented as of this encounter (statuses as of 12/30/2023) Active Problems Problem Noted Date Diagnosed Date Suicidal ideation 02/19/2023 Bipolar 1 disorder, depressed, severe 08/23/2022 Right wrist pain 10/27/2021 Eating disorder 10/04/2021 Allergic rhinitis 09/07/2021 Gastro-esophageal reflux disease without esophag itis 07/17/2021 [...] flare does not respond to therapy promptly. Female infertility 08/05/2020 Overview: Reports 12 months [...] of pre-eclampsia; During , please notify your broadcast producer if you experience headache, changes in vision, [...] as of this encounter (statuses as of 12/30/2023) Resolved Problems Problem Noted Date Diagnosed Date Resolved Date Food insecurity 11/05/2022 03/07/2023 Overview: Per [facility] Protocol Other problems related to social environment 12/17/2023 Opioid dependence in remission 05/09/2021 11/27/2022 Right upper quadrant abdominal pain 03/21/2021 03/21/2021 Schizoaffective disorder 03/08/2021 Unspecified asthma, uncomplicated 12/14/2020 05/09/2021 Obesity, Class I, BMI 30.0-3 4.9 (see actual BMI) 08/05/2020 12/17/2023 Last Assessment & Plan: DISCUSSION: 1. Discussed [...] gestational diabetes mellitus screen at first visit. Encounter for initial prescr iption of implantable [...] and proper diet. Consider referral to a aircraft powerplant repairer prior to conception for maternal conditions that [...] Recommended vaccinations received, including Flu shot in 2019. Immunization History Administered Date(s) Administered DTaP - [...] as of this encounter (statuses as of 12/30/2023) Immunizations Name Administration Dates Next Due COVID-19 [...] Answer Date Recorded PHQ Adult Total Score 9 12/27/2023 Hunger Vital Sign Answer Date Recorded Within the past 12 months, y ou worried that your food would run out before you got the money to buy more. Never true 08/29/19 24 Within the past 12 months, t he food you bought just didn't last and you didn't have money to get more. Never true 08/29/2023 Sex and Gender Information Value Date Recorded [...] encounter Miscellaneous Notes * Telephone Encounter - Wendy Braxton, vice president of advertising - 12/30/2023 9:37 AM EDT Pharmacy requesting Vimpat be transferred to them eric Dove [address] Thank you, Wendy Braxton Founder And President [facility] 12/30/2023,9:38 AM * Telephone Encounter - Rand Higgins PHARM Tech - 12/30/2023 9:31 AM EDT Pharmacy calling for a refill on Vimpat. This was last prescribed by Cathi Wheeler . Transfer to specialty refill line. Thank you, Rand Higgins, Learning And Development Officer [facility] (Formerly [facility]) 12/30/2023,9:33 AM documented in this encounter Plan of Treatment Upcoming Encounters Date Type Department Care Team (Late st Contact Info) Description 01/22/2024 10:00 AM EDT Telemedicine Psychology, [facility] [address] [facility] [place] [address] Donna Lazaro PsyD [address] [facility] [place] [address] 03/31/2024 9:20 AM EDT Office Visit Neurology [facility] [place] [address] [facility] [place] [address] Cathi Wheeler, ZAYRA [address] [facility] [place] [address] Scheduled Procedures Name Priority Associated Diagnoses Date/Ti me COLONOSCOPY FLEXIBLE PROXIMAL DIAGNOSTIC Recall Left sided abdominal pain Thrombosis of mesenteric vein (HCC) Portal vein thrombosis ESOPHAGOGASTRODUODENOSCOPY ( EGD), FLEXIBLE, TRANSORAL, DIAGNOSTIC Recall Left sided abdominal pain Thrombosis of mesenteric vein (HCC) Portal vein thrombosis Health Maintenance Due Date Last Done Comments MENINGOCOCCAL (MENACTRA/MENV EO) (1 - Risk start 2-23 months series) 05/22/2016 03/27/2016, 03/26/2011, 02/13/2000 Hepatitis C Screening 2016 Meningitis B Vaccine (Bexsero/Trumemba) (2 of 4 - Increased Risk Bexsero 2-dose series) 10/06/2021 09/08/2021 Pap Smear 02/07/2023 02/08/2020 COVID-19 Vaccine (3 - 2022-2 4 season) 2023 12/30/2020, 12/07/2020 Influenza Vaccine (FLU shot) (Season Ended) 2024 06/20/2022, 05/18/2021, 05/06/2020, Additional history exists TSH 12/24/2024 12/25/2023, 12/2023, 05/22/2023, Additional history exists DTaP,Tdap,and Td Vaccines (5 - Td or Tdap) 09/08/2031 09/08/2021, 03/26/2011, 03/08/2003, Additional history exists Pneumococcal Vaccine: Pediat rics (0 to 5 Years) and At-Risk Patients (6 to 64 Years) (3 of 3 - PPSV23 or PCV20) 11/27/2063 09/14/2019, 06/05/2011, 11/03/2007, Additional history exists Hepatitis B Completed 12/26/1999, 03/1999, 1998 GARDASIL-HPV IMMUNIZATION SERIES Completed 05/26/2020, 01/07/2020, 10/20/2019 Gonorrhea / Chlamydia Screen Discontinued , 06/27/2020, 02/08/2020, Additional history exists documented as of this encounter Medical Devices Implanted Type Area Grinder Set Up Operator Thread Tool Device Identifier Shelf Expiration Date Model / Serial / Lot Screw Ti Lo Pro Sd 3mm 400.833 - [id number] Implanted:Qty: 4 on 12/28/2019 by Linden Townsend MD at [place] [facility] [place] Right: Head [employer] MAXILLOF[employer]IAL 400.833 / / Description:no expiration da te - reprocessed set Screw Ti Lo Pro Sd 4mm 400.834 - [id number] Implanted:Qty: 4 on 12/28/2019 by Linden Townsend MD at [place] [facility] [place] Right: Head [employer] MAXILLOFACIAL 400.834 / / Description:no expiration da te - reprocessed set Plate Ti Lo Pro Str 2h 421.502 - [id number] Implanted:Qty: 4 on 12/28/2019 by Linden Townsend MD at [facility] Right: Head [employer] MAXILLOFACIAL 421.502 / / [...] the patient have Health Care Power of Dairy Scientist? No Code Status History Code Status Date [...] the patient have Health Care Power of Dairy Scientist? No Full Code 12/27/2019 6:35 PM 12/28/2019 9:42 AM This or janice reflects the patients wishes and were consensually agreed upon. Question Answer Comments Discussion of Advance Directives occurred with: Not Discussed Healthcare Agents on File Name Relationship Healthcare Agent [facility] Communication Mike Doherty Spouse Emergency Contact Care Teams Ornamenter Hand Relationship Specialty Start Date End Date Courtneynovember ZAYRA Buchanan [address] Do[address] [place], [place] [address] PCP - General Physician Graduate Assistant 03/23/22 documented as of this encounter
--- OUTSIDE RECORDS SUMMARY | 2024-01-25 22:56 | External Medical Summary | Summary of Care ---
Author Name Unknown Organization [facility] Address [address] [place] [address] Phone [phone] Care Team Providers Care Respiratory Care Technician Name Role Phone Kinsey Chaparro PA-C Primary Care Provider [phone] Reason for Visit * Reason Onset Date Comments Med Request 12/18/2023 Encounter Details Date Type Department Care Team (Late st Contact Info) Description 12/18/2023 Telephone Family Practice [facility] [address] [facility] [place] [facility] [place] [address] Kinsey Chaparro PA-C [address] [facility] [place] [address] Med Request Allergies Active Allergy Reactions Criticality Noted Date Comments Vancomycin Itching 08/03/2019 Redness of skin documented as of this encounter (statuses as of 01/02/2024) Medications Medication Sig Dispensed Refills Start Date [...] 1 Tablet before bedtime. 180 Tablet 1 3 Active Ondansetron 4 MG Oral Tablet Disintegrating (Zofran) Place 1 Tablet on tongue every 8 hours as needed for Nausea. 40 Tablet 0 3 Active Apixaban 5 MG Oral Tablet (Eliquis) Take 1 Tablet by mouth in the morning and 1 Tablet before bedtime. 60 Tablet 4 3 Active Levothyroxine Sodium 50 MCG Oral Tablet (Levoxyl) Take 1 Tablet by mouth in the morning. (at least 30 min prior to breakfast or other meds). 30 Tablet 6 3 Active Omeprazole 40 MG Oral Capsule Delayed Release (PriLOSEC)Indicatio ns:Dyspepsia TAKE ONE CAPSULE BY MOUTH EVERY MORNING 1 HOUR BEFORE THE FIRST MEAL OF THE DAY 90 Capsule 0 3 Active Propranolol HCl 40 MG Oral Tablet (Inderal)Indication s:Headache, unspecified headache type TAKE ONE TABLET BY MOUTH TWICE A DAY IN THE MORNING AND BEFORE BEDTIME 60 Tablet 4 3 Active Reyvow 50 MG Oral Tablet (Lasmiditan Succinate) 1 at onset of migraine. Max 1 dose in 24 hours. 15 Tablet 0 3 Active Dicyclomine HCl 10 MG Oral Capsule (Bentyl)Indications :Abdominal pain, generalized Take 1 Capsule by mouth 4 times a day as needed for Pain, Mild, Pain, Moderate or Cramping. For abdominal pain 360 Capsule 1 3 Active Norethindrone 0.35 MG Oral TabletIndications:P MDD (premenstrual dysphoric disorder) Take 1 Tablet by mouth in the morning. 84 Tablet 1 4 Active Gabapentin 300 MG Oral Capsule (Neurontin) Take 1 Capsule by mouth in the morning and 1 Capsule at noon and 1 Capsule before bedtime. 0 4 Active Lacosamide 50 MG Oral Tablet (Vimpat) Take 1 Tablet by mouth in the morning and 1 Tablet before bedtime. 0 4 12/25/19 24 Discontinued documented as of this encounter (statuses as of 01/02/2024) Active Problems Problem Noted Date Diagnosed Date [...] of pre-eclampsia; During , please notify your rotary rock drilling machine operator if you experience headache, changes in vision, [...] as of this encounter (statuses as of 01/02/2024) Resolved Problems Problem Noted Date Diagnosed Date Resolved Date Food insecurity 11/05/2022 03/07/2023 Overview: Per [facility] Protocol Other problems related to social [...] and proper diet. Consider referral to a surg rn prior to conception for maternal conditions that [...] as of this encounter (statuses as of 01/02/2024) Immunizations Name Administration Dates Next Due COVID-19 [...] encounter Miscellaneous Notes * Telephone Encounter - Kinsey Chaparro PA-C - 12/18/2023 5:53 PM EDT Need to get clarification. Had a mental health admission at [facility]. * Telephone Encounter - Lorena Hopkins LPN - 12/18/2023 12:42 PM EDT I don't see cogentin 0.5 mg on the patient's medication list, is she to be taking this? Please advise. * Telephone Encounter - Zoë Bah, magento web developer - 12/18/2023 11:11 AM EDT Pt called stating that she needs the Lacosamide 50 updated in her chart to state 2 tabs twice a day, and also have cogentin 0.5 mg - twice a day added as well, please advise Thank you, Zoë Bah,[facility] Civil Rights Attorney [facility] ([facility]) 12/18/2023,11:13 AM documented in this encounter Plan of Treatment Upcoming Encounters Date Type Department Care Team (Late st Contact Info) Description 01/22/2024 10:00 AM EDT Telemedicine Psychology, [facility] [address] [facility] [place] [address] Donna Lazaro, PsJaems [address] [facility] [place] [address] 03/31/2024 9:20 AM EDT Office Visit Neurology [facility] [address] [facility] [place] [address] Cathi Wheeler PA-C [address] [facility] [place] [address] Scheduled Procedures Name Priority Associated Diagnoses Date/Ti [...] this encounter Medical Devices Implanted Type Area Deep Sea Diver Device Identifier Shelf Expiration Date Model / Serial / Lot Screw Ti Lo Pro Sd 3mm 400.833 - [id number] Implanted:Qty: 4 on 12/28/2019 by Lidnen Townsend [place] [facility] [place]: Head [employer]ILL[employer] 400.833 / / Description:no expiration da te - reprocessed set Screw Ti Lo Pro Sd 4mm 400.834 - [id number] Implanted:Qty: 4 on 12/28/2019 by Linden Townsend MD [place] [facility] [place]: Head [employer] MAXILLOFACIAL 400.834 / / Description:no expiration da te - reprocessed set Plate Ti Lo Pro Str 2h 421.502 - [id number] Implanted:Qty: 4 on 12/28/2019 by Linden Townsend MD [place] [facility] [place] [facility] [place]: Head [employer] MAXILLOFACIAL 421.502 / / [...] the patient have Health Care Power of Book Retailer? No Code Status History Code Status Date [...] the patient have Health Care Power of Book Retailer? No Full Code 12/27/2019 6:35 PM 12/28/2019 9:42 AM This or janice reflects the patients wishes and were consensually agreed upon. Question Answer Comments Discussion of Advance Directives occurred with: Not Discussed Healthcare Agents on File Name Relationship Healthcare Agent [facility] Communication Mike Doherty Spouse Emergency Contact Care Teams Respiratory Care Technician Relationship Specialty Start Date End Date Courtneynovember ZAYRA Buchanan [address] [facility] [place] [address] PCP - General Physician Mechanical Engineering Lecturer 03/23/22 documented as of this encounter
--- OUTSIDE RECORDS SUMMARY | 2024-01-25 22:56 | External Medical Summary | Summary of Care ---
Author Name Unknown Organization [facility] Address [address] [place] [facility] [place] [address] Phone [phone] Care Team Providers Care Mold Maker Plaster Name Role Phone CourtneyKinsey peralta Dewayne IVERSON Primary Care Provider [phone] Reason for Visit * Reason Onset Date Comments Medication Refill 01/11/2024 Encounter Details Date Type Department Care Team (Late st Contact Info) Description 01/11/2024 Refill Neurology [facility] [address] [place] [address] Cathi Wheeler PA-C [address] [facility] [place] [address] Allergies Active Allergy Reactions Criticality Noted Date Comments Vancomycin Itching 08/03/2019 Redness of skin documented as of this encounter (statuses as of 01/11/2024) Medications Medication Sig Dispensed Refills Start Date [...] 2 Tablets before bedtime. 120 Tablet 2 12/30/2023 Active documented as of this encounter (statuses as of 01/11/2024) Active Problems Problem Noted Date Diagnosed Date [...] of pre-eclampsia; During , please notify your social media marketing manager if you experience headache, changes in vision, [...] as of this encounter (statuses as of 01/11/2024) Resolved Problems Problem Noted Date Diagnosed Date Resolved Date Food insecurity 11/05/2022 03/07/2023 Overview: Per [facility] Protocol Other problems related to social [...] and proper diet. Consider referral to a kier hand prior to conception for maternal conditions that [...] as of this encounter (statuses as of 01/11/2024) Immunizations Name Administration Dates Next Due COVID-19 [...] encounter Miscellaneous Notes * Telephone Encounter - Myrna Beard CPhT - 01/11/2024 8:46 AM EDT Pt calling to request lacosamide 50mg. Informed pt that RX is available at their pharmacy. Pt verbalized understanding and stated they will check with their pharmacy regarding this medication. Thank you, Myrna Beard [facility] Manager [facility] ([facility] (Formerly [facility]) 01/11/2024, 8:46 AM documented in this encounter Plan of Treatment Upcoming Encounters Date Type Department Care Team (Late st Contact Info) Description 03/31/2024 9:20 AM EDT Office Visit [facility] [address] [facility] [place] [address] Cathi Wheeler PA-C [address] [facility] [place] [address] Scheduled Procedures Name Priority Associated Diagnoses Date/Ti [...] this encounter Medical Devices Implanted Type Area Refining Still Operator Device Identifier Shelf Expiration Date Model / Serial / Lot Screw Ti Lo Pro Sd 3mm 400.833 - [id number] Implanted:Qty: 4 on 12/28/2019 by Linden Townsend MD at [place] [facility] [place] Right: Head [employer] MAXILL[employer] 400.833 / / Description:no expiration da te - reprocessed set Screw Ti Lo Pro Sd 4mm 400.834 - [id number] Implanted:Qty: 4 on 12/28/2019 by Linden Townsend MD at [place] [facility] [place] Right: Head [employer] MAXILLOFACIAL 400.834 / / Description:no expiration da te - reprocessed set Plate Ti Lo Pro Str 2h 421.502 - [id number] Implanted:Qty: 4 on 12/28/2019 by Linden Townsend MD at [place] [facility] Right: Head [employer] MAXILLOFACIAL 421.502 [...] the patient have Health Care Power of Zinc Plater? No Code Status History Code Status Date [...] the patient have Health Care Power of Zinc Plater? No Full Code 12/27/2019 6:35 PM 12/28/2019 9:42 AM This or janice reflects the patients wishes and were consensually agreed upon. Question Answer Comments Discussion of Advance Directives occurred with: Not Discussed Healthcare Agents on File Name Relationship Healthcare Agent [facility] Communication Mike Doherty Spouse Emergency Contact Care Teams Mold Maker Plaster Relationship Specialty Start Date End Date November ZAYRA Buchanan [address] [facility] [place] [address] PCP - General Physician Bond Broker 03/23/22 documented as of this encounter
--- OUTSIDE RECORDS SUMMARY | 2024-01-25 22:56 | External Medical Summary | Summary of Care ---
Author Name Unknown Organization [facility] Address [address] [place] [address] Phone [phone] Care Team Providers Care Crew Person Name Role Phone Krysta Kinsey Buchanan PA-C Primary Care Provider [phone] Reason for Visit * Reason Onset Date Comments Appointment 01/08/2024 Encounter Details Date Type Department Care Team (Late st Contact Info) Description 01/08/2024 Telephone Psychology, [place] [address] [place] [address] 3, [facility] [address] [place] [address] Appointment Allergies Active Allergy Reactions Criticality Noted Date Comments Vancomycin Itching 08/03/2019 Redness of skin documented as of this encounter (statuses as of 01/14/2024) Medications Medication Sig Dispensed Refills Start Date End Date Status Albuterol Sulfate HFA 108 (90 Base) MCG/ACT Inhalation Aerosol Solution Inhale by mouth 2 Puffs every 4 hours as needed (dyspnea). INHALE TWO PUFFS BY MOUTH EVERY 4 HOURS NEEDED FOR DYSPNEA 18 g 4 03/09/2022 Active Doxepin HCl 25 MG Oral Capsule (SINEquan) Take 1 Capsule by mouth at bedtime. 08/02/2023 Active LORazepam 1 MG Oral Tablet (Ativan) Take 1 Tablet by mouth every 8 hours as needed. Active Famotidine 20 MG Oral Tablet (Pepcid)Indications:D yspepsia Take 1 Tablet by mouth in the morning and 1 Tablet before bedtime. 180 Tablet 1 08/13/2023 Active Ondansetron 4 MG Oral Tablet Disintegrating (Zofran) Place 1 Tablet on tongue every 8 hours as needed for Nausea. 40 Tablet 08/13/2023 Active Apixaban 5 MG Oral Tablet [...] FIRST MEAL OF THE DAY 90 Capsule 08/13/2023 Active Propranolol HCl 40 MG Oral Tablet (Inderal)Indications: Headache, unspecified headache type TAKE ONE TABLET BY MOUTH TWICE A DAY IN THE MORNING AND BEFORE BEDTIME 60 Tablet 4 08/13/2023 Active Reyvow 50 MG Oral Tablet (Lasmiditan Succinate) 1 at onset of migraine. Max 1 dose in 24 hours. 15 Tablet 08/16/2023 Active Dicyclomine HCl 10 MG Oral [...] at noon and 1 Capsule before bedtime. 12/17/2023 Active Emgality 120 MG/ML Subcutaneous Solution Auto-injector (Galcanezumab-[facility]) Inject 1 mL under the skin Every Month. 1 mL 2 12/19/2023 Active Benztropine Mesylate 0.5 MG Oral Tablet (Cogentin) Take 1 Tablet by mouth in the morning and 1 Tablet before bedtime. 12/04/2023 Active Lacosamide 50 MG Oral Tablet (Vimpat) Take 2 Tablets by mouth in the morning and 2 Tablets before bedtime. 120 Tablet 2 12/30/2023 Active documented as of this encounter (statuses as of 01/14/2024) Active Problems Problem Noted Date Diagnosed Date [...] of pre-eclampsia; During , please notify your real estate attorney if you experience headache, changes in vision, [...] as of this encounter (statuses as of 01/14/2024) Resolved Problems Problem Noted Date Diagnosed Date Resolved Date Food insecurity 11/05/2022 03/07/2023 Overview: Per [facility] Protocol Other problems related to social [...] and proper diet. Consider referral to a pediatric np prior to conception for maternal conditions that [...] as of this encounter (statuses as of 01/14/2024) Immunizations Name Administration Dates Next Due COVID-19 [...] money to buy more. Never true 08/29/19 Within the past 12 months, t he [...] encounter Miscellaneous Notes * Telephone Encounter - Makenna Santiago OSA - 01/14/2024 3:50 PM EDT 2nd attempt. Called patient to offer IOP. Unable to LM. Sent [facility] info. Removed from waitlist. * Telephone Encounter - Makenna Santiago OSA - 01/08/2024 10:22 AM EDT Called patient to offer IOP. LM. Sent [facility] info. documented in this encounter Plan of Treatment Upcoming Encounters Date Type Department Care Team (Late st Contact Info) Description 03/31/2024 9:20 AM EDT Office Visit Neurology [facility] [place] [address] [facility] [place] [address] Cathi Wheeler PA-C [address] [facility] [place] [address] Scheduled Procedures Name Priority Associated Diagnoses Date/Ti [...] this encounter Medical Devices Implanted Type Area Geophysical Prospector Device Identifier Shelf Expiration Date Model / Serial / Lot Screw Ti Lo Pro Sd 3mm 400.833 - [id number] Implanted:Qty: 4 on 12/28/2019 by Linden Townsend MD at OR [facility] [place] Right: Head SYNTHES MAXILLOFACIAL 400.833 / / Description:no expiration da te - reprocessed set Screw Ti Lo Pro Sd 4mm 400.834 - [id number] Implanted:Qty: 4 on 12/28/2019 by Linden Townsend MD at OR [facility] [place] Right: Head SYNTHES MAXILLOFACIAL 400.834 / / Description:no expiration da te - reprocessed set Plate Ti Lo Pro Str 2h 421.502 - [id number] Implanted:Qty: 4 on 12/28/2019 by Linden Townsend MD at OR [facility] [place] Right: Head SYNTHES MAXILLOFACIAL 421.502 / / Description:no expiration da te - reprocessed set documented as of this encounter Advance Directives * Full Code (Latest Code Status on File) Date Activated Date Inactivated Comments 03/18/2021 8:22 PM 03/21/2021 10:22 PM This order reflects the patients wishes and were consensually agreed upon. Question Answer Comments Discussion of Advance Directives occurred with: Not Discussed Does the patient have a Living Will? No Does the patient have Health Care Power of Attor regan? No * Full Code Date Activated Date Inactivated Comments 03/10/2021 11:40 PM 03/12/2021 11:06 PM This order reflects the patients wishes and were consensually agreed upon. * Full Code Date Activated Date Inactivated Comments 03/01/2021 7:41 PM 03/05/2021 7:35 PM This order re flects the patients wishes and were consensually agreed upon. Question Answer Comments Discussion of Advance Directives occurred with: Patient * Full Code Date Activated Date Inactivated Comments 12/28/2019 9:42 AM 12/30/2019 6:38 PM This order ref lects the patients wishes and were consensually agreed upon. Question Answer Comments Discussion of Advance Directives occurred with: Patient Does the patient have a Living Will? No Does the patient have Health Care Power of Attor regan? No * Full Code Date Activated Date Inactivated Comments 12/27/2019 6:35 PM 12/28/2019 9:42 AM This order ref lects the patients wishes and were consensually agreed upon. Question Answer Comments Discussion of Advance Directives occurred with: Not Discussed Healthcare Agents on File Name Relationship [facility] Mike Doherty Spouse Emergency Contact Care Teams Crew Person Relationship Specialty Start Date End Date Courtneynovember ZAYRA Buchanan [address] [place] [address] PCP - General Physician Jitney Driver 03/23/22 documented as of this encounter
--- OUTSIDE RECORDS SUMMARY | 2024-01-25 22:56 | External Medical Summary | Summary of Care ---
Author Name Unknown Organization [facility] Address [address] [place] [address] Phone [phone] Care Team Providers Care Certified Emergency Vehicle Technician Name Role Phone Courtneykathryn Kinsey Buchanan PA-C Primary Care Provider [phone] Reason for Visit * Reason Onset Date Comments Appointment 01/08/2024 Encounter Details Date Type Department Care Team (Late st Contact Info) Description 01/08/2024 Telephone Psychology, [place] [address] [place] [address] 3, Psychology Group [address] [place] [address] Appointment Allergies Active Allergy Reactions Criticality Noted Date Comments Vancomycin Itching 08/03/2019 Redness of skin documented as of this encounter (statuses as of 01/08/2024) Medications Medication Sig Dispensed Refills Start Date [...] Active Emgality 120 MG/ML Subcutaneous Solution Auto-injector (Galcanezumab-[facility]) Inject 1 mL under the skin Every [...] as of this encounter (statuses as of 01/08/2024) Active Problems Problem Noted Date Diagnosed Date [...] of pre-eclampsia; During , please notify your bisque tile burner if you experience headache, changes in vision, [...] as of this encounter (statuses as of 01/08/2024) Resolved Problems Problem Noted Date Diagnosed Date Resolved Date Food insecurity 11/05/2022 03/07/2023 Overview: Per [facility] Protocol Other problems related to social [...] and proper diet. Consider referral to a staff anesthesiologist prior to conception for maternal conditions that [...] as of this encounter (statuses as of 01/08/2024) Immunizations Name Administration Dates Next Due COVID-19 [...] 03/31/2024 9:20 AM EDT Office Visit Neurology [facility] [place] [address] [facility] [place] [address] Cathi Wheeler PA-C 200 [facility] [place] [address] Scheduled Procedures Name Priority Associated Diagnoses Date/Ti [...] this encounter Medical Devices Implanted Type Area Nitrocellulose Maker Device Identifier Shelf Expiration Date Model / Serial / Lot Screw Ti Lo Pro Sd 3mm 400.833 - [id number] Implanted:Qty: 4 on 12/28/2019 by Linden Townsend MD at OR [facility] [place] Right: Head SYNTHES MAXILLOFACIAL 400.833 / / Description:no expiration da te - reprocessed set Screw Ti Lo Pro Sd 4mm 400.834 - [id number] Implanted:Qty: 4 on 12/28/2019 by Linden Townsend MD at OR [facility] Right: Head SYNTHES MAXILLOFACIAL 400.834 / / Description:no expiration da te - reprocessed set Plate Ti Lo Pro Str 2h 421.502 - [id number] Implanted:Qty: 4 on 12/28/2019 by Linden Townsend MD at OR [facility] [place] Right: Head SYNTHES MAXILLOFACIAL 421.502 / / [...] the patient have Health Care Power of Bilingual Social Worker? No Code Status History Code Status Date [...] the patient have Health Care Power of Bilingual Social Worker? No Full Code 12/27/2019 6:35 PM 12/28/2019 9:42 AM This or janice reflects the patients wishes and were consensually agreed upon. Question Answer Comments Discussion of Advance Directives occurred with: Not Discussed Healthcare Agents on File Name Relationship Healthcare Agent [facility] Communication Mike Doherty Spouse Emergency Contact Care Teams Certified Emergency Vehicle Technician Relationship Specialty Start Date End Date KrystaNovember Dewayne, MAXC [address] [place] [address] [place] [address] PCP - General Physician Marine Extension Agent 03/23/22 documented as of this encounter
--- OUTSIDE RECORDS SUMMARY | 2024-01-25 22:56 | External Medical Summary | Summary of Care ---
Author Name Unknown Organization [facility] Address [address] [place] [facility] [place] [address] Phone [phone] Care Team Providers Care Natural Gas Treating Unit Operator Name Role Phone CourtneyKinsey peralta ZAYRA Primary Care Provider Reason for Visit * Reason Onset Date Comments Other 12/30/2023 Encounter Details Date Type Department Care Team (Late st Contact Info) Description 12/30/2023 Telephone Neurology [facility] [place] [address] [place] [address] Cathi Wheeler PA-C 200 [facility] [place] [address] Other Allergies Active Allergy Reactions Criticality Noted [...] of pre-eclampsia; During , please notify your industrial trainer if you experience headache, changes in vision, [...] Date Food insecurity 11/05/2022 03/07/2023 Overview: Per [facility] Protocol Other problems related to social [...] and proper diet. Consider referral to a paste thinner prior to conception for maternal conditions that [...] as of this encounter Miscellaneous Notes * Addendum Note - Ashley Posada, MED ASSIST - 12/30/2023 9:43 AM EDT Addended by: ASHLEY POSADA on: 12/30/2023 09:43 AM Modules accepted: Orders * Telephone Encounter - Wendy Braxton, industrial truck mechanic - 12/30/2023 9:37 AM EDT Pharmacy requesting Vim[facility] not [facility]. Derrell Villarreal[address] Thank you, Wendy Braxton What Job Titles Mean [facility] 12/30/2023,9:38 AM * Telephone Encounter - Rand Higgins PHARM Tech - 12/30/2023 9:31 AM EDT Pharmacy calling for a refill on Vimpat. This was last prescribed by Cathi Wheeler . Transfer to specialty refill line. Thank you, Rand Higgins, Catechist [facility] (Formerly [facility]) 12/30/2023,9:33 AM documented in this encounter Plan of Treatment Upcoming Encounters Date Type Department Care Team (Late st Contact Info) Description 01/22/2024 10:00 AM EDT Telemedicine Psychology, [facility] [address] [facility] [place] [address] Donna Lazaro, [place] [address] [facility] [place] [address] 03/31/2024 9:20 AM EDT Office Visit Neurology [facility] [place] [address] [facility] [place] [address] Cathi Wheeler PA-C [address] [facility] [address] [place] [address] Scheduled Procedures Name Priority Associated Diagnoses Date/Ti [...] this encounter Medical Devices Implanted Type Area Events Specialist Device Identifier Shelf Expiration Date Model / Serial / Lot Screw Ti Lo Pro Sd 3mm 400.833 - [id number] Implanted:Qty: 4 on 12/28/2019 by Linden Townsend [place] [facility] [place]: Head SYNTHES MAXILLOFACIAL 400.833 / / Description:no expiration da te - reprocessed set Screw Ti Lo Pro Sd 4mm 400.834 - [id number] Implanted:Qty: 4 on 12/28/2019 by Linden Townsend MD [place] [facility] [place]: Head SYNTHES MAXILLOFACIAL 400.834 / / Description:no expiration da te - reprocessed set Plate Ti Lo Pro Str 2h 421.502 - [id number] Implanted:Qty: 4 on 12/28/2019 by Linden Townsend MD [place] [facility] [place]: Head SYNTHES MAXILLOFACIAL 421.502 / / [...] the patient have Health Care Power of Rabies Inspector? No Code Status History Code Status Date [...] the patient have Health Care Power of Rabies Inspector? No Full Code 12/27/2019 6:35 PM 12/28/2019 9:42 AM This or janice reflects the patients wishes and were consensually agreed upon. Question Answer Comments Discussion of Advance Directives occurred with: Not Discussed Healthcare Agents on File Name Relationship Healthcare Agent [facility] Communication Mike Doherty Spouse Emergency Contact Care Teams Natural Gas Treating Unit Operator Relationship Specialty Start Date End Date KrystaNovember ZAYRA Buchanan [address] [facility] [place] [address] PCP - General Physician Commercial Loan Officer 03/23/22 documented as of this encounter
--- OUTSIDE RECORDS SUMMARY | 2024-01-25 22:56 | External Medical Summary | Summary of Care ---
Author Name Unknown Organization [facility] Address [address] [place] [address] Phone [phone] Care Team Providers Care Pickers Material Handlers Name Role Phone Courtneykathryn Kinsey Buchanan PA-C Primary Care Provider [phone] Reason for Visit * Reason Onset Date Comments Appointment 01/08/2024 Encounter Details Date Type Department Care Team (Late st Contact Info) Description 01/08/2024 Telephone Psychology, [place] [address] [place] [address] 3, Psychology Group [address] [place] [address] Appointment Allergies Active Allergy Reactions [...] Active Emgality 120 MG/ML Subcutaneous Solution Auto-injector (Galcanezumab[facility]) Inject 1 mL under the skin Every [...] of pre-eclampsia; During , please notify your sports marketing specialist if you experience headache, changes in vision, [...] Date Food insecurity 11/05/2022 03/07/2023 Overview: Per [facility] Protocol Other problems related to social [...] and proper diet. Consider referral to a manager knowledge prior to conception for maternal conditions that [...] AM EDT Office Visit Neurology [facility] [place] [address] [facility] [place] [address] Cathi Wheeler PA-C [address] [facility] [place] [address] Scheduled Procedures Name Priority Associated Diagnoses Date/Ti [...] this encounter Medical Devices Implanted Type Area Cell Tuber Machine Device Identifier Shelf Expiration Date Model / Serial / Lot Screw Ti Lo Pro Sd 3mm 400.833 - [id number] Implanted:Qty: 4 on 12/28/2019 by Linden Townsend [place] [facility] [place]: Head SYNTHES MAXILLOFACIAL 400.833 / / Description:no expiration da te - reprocessed set Screw Ti Lo Pro Sd 4mm 400.834 - [id number] Implanted:Qty: 4 on 12/28/2019 by Linden Townsend MD [place] [facility] [place]: Head SYNTHES MAXILLOFACIAL 400.834 / / Description:no expiration da te - reprocessed set Plate Ti Lo Pro Str 2h 421.502 - [id number] Implanted:Qty: 4 on 12/28/2019 by Linden Townsend [place] [facility] [place]: Head SYNTHES MAXILLOFACIAL 421.502 / / [...] the patient have Health Care Power of Gate Operator? No Code Status History Code Status [...] the patient have Health Care Power of Gate Operator? No Full Code 12/27/2019 6:35 PM 12/28/2019 9:42 AM This or janice reflects the patients wishes and were consensually agreed upon. Question Answer Comments Discussion of Advance Directives occurred with: Not Discussed Healthcare Agents on File Name Relationship Healthcare Agent [facility] Communication Mike Doherty Spouse Emergency Contact Care Teams Pickers Material Handlers Relationship Specialty Start Date End Date KrystaNovember Dewayne, MAXC [address] [place] [address] [place] [address] PCP - General Physician Stamping Mill Tender 03/23/22 documented as of this encounter
--- OUTSIDE RECORDS SUMMARY | 2024-01-25 22:56 | External Medical Summary | Summary of Care ---
Author Name Unknown Organization [facility] Address [address] [facility] [place] [address] Phone [phone] Care Team Providers Care Rn Patient Care Name Role Phone CourtneyKinsey peralta ZAYRA Primary Care Provider [phone] Reason for Visit * Reason Onset Date Comments Other 12/30/2023 Encounter Details Date Type Department Care Team (Late st Contact Info) Description 12/30/2023 Telephone Neurology [facility] [place] [address] [place] [address] Cathi Wheeler PA-C [address] [facility] [place] [address] Other Allergies Active Allergy Reactions Criticality Noted [...] of pre-eclampsia; During , please notify your associate store director if you experience headache, changes in vision, [...] Date Food insecurity 11/05/2022 03/07/2023 Overview: Per [facility] Protocol Other problems related to social [...] and proper diet. Consider referral to a butcher helper prior to conception for maternal conditions that [...] Orders * Telephone Encounter - Wendy Braxton, equity analyst - 12/30/2023 9:37 AM EDT Pharmacy [facility]. Derrell Villarreal[address] Thank you, Wendy Braxton Early Childhood Assistant [facility] 12/30/2023,9:38 AM * Telephone Encounter - Rand Higgins PHARM Tech - 12/30/2023 9:31 AM EDT Pharmacy calling for a refill on Vimpat. This was last prescribed by Cathi Wheeler . Transfer to specialty refill line. Thank you, Rand Higgins, Package Clerk [facility] ([facility]) 12/30/2023,9:33 AM documented in this encounter Plan of Treatment Upcoming Encounters Date Type Department Care Team (Late st Contact Info) Description 01/22/2024 10:00 AM EDT Telemedicine Psychology, [facility] [address] [facility] [place] [address] Donna Lazaro, Ge[place] [address] [facility] [place] [address] 03/31/2024 9:20 AM EDT Office Visit Neurology [facility] [place] [address] [facility] [place] [address] Cathi Wheeler PA-C [address] [facility] [address] [place] [address] Scheduled Procedures Name Priority Associated Diagnoses Date/Ti [...] this encounter Medical Devices Implanted Type Area Law Enforcement Officer Device Identifier Shelf Expiration Date Model / Serial / Lot Screw Ti Lo Pro Sd 3mm 400.833 - [id number] Implanted:Qty: 4 on 12/28/2019 by Linden Townsend MD at [place] [facility] Right: Head SYNTHES MAXILLOFACIAL 400.833 / / Description:no expiration da te - reprocessed set Screw Ti Lo Pro Sd 4mm 400.834 - [id number] Implanted:Qty: 4 on 12/28/2019 by Linden Townsend MD at [place] [facility] Right: Head SYNTHES MAXILLOFACIAL 400.834 / / Description:no expiration da te - reprocessed set Plate Ti Lo Pro Str 2h 421.502 - [id number] Implanted:Qty: 4 on 12/28/2019 by Linden Townsend MD at [place] [facility] Right: Head SYNTHES MAXILLOFACIAL 421.502 / / [...] the patient have Health Care Power of Pile Trimmer? No Code Status History Code Status Date [...] the patient have Health Care Power of Pile Trimmer? No Full Code 12/27/2019 6:35 PM 12/28/2019 9:42 AM This or janice reflects the patients wishes and were consensually agreed upon. Question Answer Comments Discussion of Advance Directives occurred with: Not Discussed Healthcare Agents on File Name Relationship Healthcare Agent [facility] Communication Mike Doherty Spouse Emergency Contact Care Teams Rn Patient Care Relationship Specialty Start Date End Date KrystaNovember ZAYRA Buchanan [address] [facility] [place] [address] PCP - General Physician It Sales Consultant 03/23/22 documented as of this encounter
--- OUTSIDE RECORDS SUMMARY | 2024-01-25 22:56 | External Medical Summary | Summary of Care ---
Author Name Unknown Organization [facility] Address [address] [place] [address] Phone [phone] Care Team Providers Care Fire Extinguisher Tester Name Role Phone CourtneyKinsey peralta ZAYRA Primary Care Provider [phone] Reason for Visit * Reason Onset Date Comments Other 12/30/2023 Encounter Details Date Type Department Care Team (Late st Contact Info) Description 12/30/2023 Telephone [facility] [place] [address] [place] [address] Cathi Wheeler PA-C 200 [facility] [place] [address] Other Allergies Active Allergy Reactions Criticality Noted [...] 1 08/16/2023 Active Norethindrone 0.35 MG Oral TabletIndications:P MDD [...] before bedtime. 120 Tablet 2 12/30/2023 Active Lacosamide 50 MG Oral Tablet (Vimpat) Take 2 Tablets by mouth in the morning and 2 Tablets before bedtime. 120 Tablet 2 12/25/2023 4 Discontinue d(Refill) documented as of this encounter [...] of pre-eclampsia; During , please notify your tile and marble setter if you experience headache, changes in vision, [...] Date Food insecurity 11/05/2022 03/07/2023 Overview: Per [facility] Protocol Other problems related to social [...] and proper diet. Consider referral to a medical transport specialist prior to conception for maternal conditions that [...] encounter Miscellaneous Notes * Addendum Note - Cathi Wheeler PA-C - 12/30/2023 9:54 AM EDTAddended by: CATHI WHEELER on: 12/30/2023 09:54 AM Modules accepted: Orders * Addendum Note - Ashley Posada, MED ASSIST - 12/30/2023 9:43 AM EDT Addended by: ASHLEY POSADA on: 12/30/2023 09:43 AM Modules accepted: Orders * Telephone Encounter - Wendy Braxton comb winder - 12/30/2023 9:37 AM EDT Pharmacy requesting Vimpat be transferred to [address] Thank you, Wendy Braxton Clinical Project Coordinator [facility] 12/30/2023,9:38 AM * Telephone Encounter - Rand Higgins comb winder - 12/30/2023 9:31 AM EDT Pharmacy calling for a refill on Vimpat. This was last prescribed by Cathi Wheeler . Transfer to specialty refill line. Thank you, Rand Higgins, Drywall Taper [facility] (Formerly Telepharm[facility]) 12/30/2023,9:33 AM documented in this encounter Plan of Treatment Upcoming Encounters Date Type Department Care Team (Late st Contact Info) Description 01/22/2024 10:00 AM EDT Telemedicine Psychology, Gretchen Iraida [address] [place] [address] [address] [address] Donna Lazaro, Geovany [address] [place] [address] 03/31/2024 9:20 AM EDT Office Visit Neurology [employer] [facility] [place] [address] Cathi Wheeler PA-C 200 [facility] [place], [place] [address] Scheduled Procedures Name Priority Associated Diagnoses Date/Ti [...] this encounter Medical Devices Implanted Type Area Rf Engineer Device Identifier Shelf Expiration Date Model / Serial / Lot Screw Ti Lo Pro Sd 3mm 400.833 - [id number] Implanted:Qty: 4 on 12/28/2019 by Linden Townsend MD at OR [facility] Right: Head [employer]ES MAXILLOFACIAL 400.833 / / Description:no expiration da te - reprocessed set Screw Ti Lo Pro Sd 4mm 400.834 - [id number] Implanted:Qty: 4 on 12/28/2019 by Linden Townsend MD at OR [facility] Right: Head SY[employer]ES MAXILLOFACIAL 400.834 / / Description:no expiration da te - reprocessed set Plate Ti Lo Pro Str 2h 421.502 - [id number] Implanted:Qty: 4 on 12/28/2019 by Linden Townsend MD at OR [facility] Right: Head SYN[employer]ES MAXILLOFACIAL 421.502 / / [...] the patient have Health Care Power of Bar Useful Or Busser? No Code Status History Code Status Date [...] the patient have Health Care Power of Bar Useful Or Busser? No Full Code 12/27/2019 6:35 PM 12/28/2019 9:42 AM This or janice reflects the patients wishes and were consensually agreed upon. Question Answer Comments Discussion of Advance Directives occurred with: Not Discussed Healthcare Agents on File Name Relationship [facility] Mike Doherty Spouse Emergency Contact Care Teams Fire Extinguisher Tester Relationship Specialty Start Date End Date Krysta November Dewayne, PAAyseC 200 [facility] [place] [address] PCP - General Physician Film Producer 03/23/22 documented as of this encounter
--- OUTSIDE RECORDS SUMMARY | 2024-01-25 22:57 | External Medical Summary | Summary of Care ---
Author Name Unknown Organization [facility] Address [address] [facility] [place] [address] Phone [phone] Care Team Providers Care Field Map Editor Name Role Phone Kinsey Chaparro ZAYRA Primary Care Provider [phone] Reason for Visit * Reason Onset Date Comments Medication Refill 12/18/2023 Encounter Details Date Type Department Care Team (Late st Contact Info) Description 12/18/[address] [facility] 200 [facility] [place] [address] Miguel Gonzalez MD 200 [facility] [place] [address] Allergies Active Allergy Reactions Criticality Noted Date Comments Vancomycin Itching 08/03/2019 Redness of skin documented as of this encounter (statuses as of 12/19/2023) Medications Medication Sig Dispensed Refills Start Date End Date Status Albuterol Sulfate HFA 108 (90 Base) MCG/ACT Inhalation Aerosol Solution Inhale by mouth 2 Puffs every 4 hours as needed (dyspnea). INHALE TWO PUFFS BY MOUTH EVERY 4 HOURS NEEDED FOR DYSPNEA 18 g 4 03/09/2022 Active Additional Information Patient not taking.Reported on 12/17/2023 Doxepin HCl 25 MG Oral Capsule (SINEquan) [...] the morning. 84 Tablet 1 10/08/2023 Active Lacosamide 50 MG Oral Tablet (Vimpat) Take 1 Tablet by mouth in the morning and 1 Tablet before bedtime. 0 12/13/2023 Active Gabapentin 300 MG Oral Capsule (Neurontin) Take 1 Capsule by mouth in the morning and 1 Capsule at noon and 1 Capsule before bedtime. 0 12/17/2023 Active Emgality 120 MG/ML Subcutaneous Solution Auto-injector (Galcanezumab-[facility]) Inject 1 mL under the skin Every Month. 1 mL 2 12/19/2023 Active Emgality 120 MG/ML Subcutaneous Solution Auto-injector (Galcanezumab-gnlm) Inject 1 mL under the skin Every Month. 1 mL 2 08/13/2023 12/18/19 24 Discontinu ed(Refill) documented as of this encounter (statuses as of 12/19/2023) Active Problems Problem Noted Date Diagnosed Date [...] 11/09/20. Borderline personality disorder 12/21/2020 Overview: Per CS 11/09/20. Asplenia 12/14/2020 Hyperprolactinemia 08/25/2020 Migraine without [...] of pre-eclampsia; During , please notify your metal and plastic heater if you experience headache, changes in vision, [...] as of this encounter (statuses as of 12/19/2023) Resolved Problems Problem Noted Date Diagnosed Date Resolved Date Food insecurity 11/05/2022 03/07/2023 Overview: Per [facility] Protocol Other problems related to social [...] and proper diet. Consider referral to a oral and maxillofacial surgery prior to conception for maternal conditions that [...] as of this encounter (statuses as of 12/19/2023) Immunizations Name Administration Dates Next Due COVID-19 mRNA, LNP-s, No Pre serve, 2-Dose Series ([employer]) 12/30/2020,12/07/2020 DTaP Dipth/Tet/Acell Pertussis (Infanrix), Peds 03/08/2003,03/19/2000 [...] Answer Date Recorded PHQ Adult Total Score 8 09/24/2023 Hunger Vital Sign Answer Date Recorded Within [...] encounter Miscellaneous Notes * Telephone Encounter - Miguel Gonzalez MD - 12/19/2023 11:09 AM EDTSigned Prescriptions: Disp Refills Emgality 120 MG/ML Subcutaneous Solution A*1 mL 2 Sig: Inject 1 mL under the skin Every Month. Authorizing Provider: MIGUEL GONZALEZ * Telephone Encounter - Ashley Posada [employer] ASSIST - 12/18/2023 12:47 PM EDTPending Prescriptions: Disp Refills Emgality 120 MG/ML Subcutaneous Solution A*1 mL 2 Sig: Inject 1 mL under the skin Every Month. documented in this encounter Plan of Treatment Upcoming Encounters Date Type Department Care Team (Late st Contact Info) Description 12/25/2023 10:30 AM EDT Scheduled Telephone Jeremy Red[place] [id number] Shirley Stinson, ANNALEEN [address] [place] [address] 12/25/2023 11:20 AM EDT Office Visit Neurology [facility] [place] [address] [place], [place] [address] Cathi Wheeler PA-C 200 [facility] [place], [place] [address] Scheduled Procedures Name Priority Associated Diagnoses Date/Ti [...] 06/20/2022, 05/18/2021, 05/06/2020, Additional history exists TSH 08/30/2024 08/30/2023, 04/27, 04/19/2023, Additional history exists DTaP,Tdap,and Td Vaccines (5 [...] this encounter Medical Devices Implanted Type Area Endo Tech Device Identifier Shelf Expiration Date Model / Serial / Lot Screw Ti Lo Pro Sd 3mm 400.833 - [id number] Implanted:Qty: 4 on 12/28/2019 by Linden Townsend MD [place] [facility] Right: Head [employer]ES MAXILLOFACIAL 400.833 / / Description:no expiration da te - reprocessed set Screw Ti Lo Pro Sd 4mm 400.834 - [id number] Implanted:Qty: 4 on 12/28/2019 by Linden Townsend MD at [place] [facility] Right: Head [employer]ES MAXILLOFACIAL 400.834 / / Description:no expiration da te - reprocessed set Plate Ti Lo Pro Str 2h 421.502 - [id number] Implanted:Qty: 4 on 12/28/2019 by Linden Townsend MD at [place] [facility] Right: Head [employer]ES MAXILLOFACIAL 421.502 / / [...] the patient have Health Care Power of Chef Kitchen Manager? No Code Status History Code Status Date [...] the patient have Health Care Power of Chef Kitchen Manager? No Full Code 12/27/2019 6:35 PM 12/28/2019 9:42 AM This or janice reflects the patients wishes and were consensually agreed upon. Question Answer Comments Discussion of Advance Directives occurred with: Not Discussed Healthcare Agents on File Name Relationship Healthcare Agent [facility] p Communication Mike Doherty Spouse Emergency Contact Care Teams Field Map Editor Relationship Specialty Start Date End Date Courtneynovember ZAYRA [place] 200 [facility] [place] [address] PCP - General Physician Forestry Aid Technician 03/23/22 documented as of this encounter
--- OUTSIDE RECORDS SUMMARY | 2024-01-25 22:57 | External Medical Summary | Summary of Care ---
Author Name Unknown Organization [facility] Address [address] [facility] [place] [address] Phone [phone] Care Team Providers Care Irrigationist Designer Name Role Phone Kinsey Chaparro ZAYRA Primary Care Provider [phone] Reason for Visit * Reason Comments Outpatient Testing Encounter Details Date Type Department Care Team (Late st Contact Info) Description 12/25/2023 11:40 AM EDT Laboratory Laboratory [facility] [place] [address] [place] [id number] [place], [address]en[address] [place] [address] Acquired hypothyroidism; Abdominal pain, left lower quadrant; Portal vein thrombosis; Encounter for long-term (current) use of other medications; Hypothyroidism, unspecified type; Medication management; Hospital discharge follow-up; Seizure (HCC) Allergies Active Allergy Reactions Criticality Noted Date Comments Vancomycin Itching 08/03/2019 Redness of skin documented as of this encounter (statuses as of 12/25/2023) Medications Medication Sig Dispensed Refills Start Date [...] Active Emgality 120 MG/ML Subcutaneous Solution Auto-injector (Galcanezumab-[facility]) Inject 1 mL under the skin Every Month. 1 mL 2 12/19/2023 Active Benztropine Mesylate 0.5 MG Oral Tablet (Cogentin) Take 1 Tablet by mouth in the morning and 1 Tablet before bedtime. 0 12/04/2023 Active documented as of this encounter (statuses as of 12/25/2023) Active Problems Problem Noted Date Diagnosed Date [...] of pre-eclampsia; During , please notify your fisher purse seine if you experience headache, changes in vision, [...] as of this encounter (statuses as of 12/25/2023) Resolved Problems Problem Noted Date Diagnosed Date Resolved Date Food insecurity 11/05/2022 03/07/2023 Overview: Per [facility] Protocol Other problems related to social [...] and proper diet. Consider referral to a fuel operator prior to conception for maternal conditions that [...] as of this encounter (statuses as of 12/25/2023) Immunizations Name Administration Dates Next Due COVID-19 [...] No 03/18/2021 documented as of this encounter Plan of Treatment Upcoming Encounters Date Type Department Care Team (Late st Contact Info) Description 03/31/2024 9:20 AM EDT Office Visit Neurology [place] [address] [place] [address] Cathi Wheeler PA-C [address] [place] [address] Pending Results Name Type Priority Associated Diagnoses Date /Time TSH WITH FREE T4 IF INDICATED Lab Routine Acquired hypothyroidism 12/25/2023 11:49 AM EDT COMPREHENSIVE METABOLIC PANEL Lab Routine Abdominal pain, left lower quadrant Portal vein thrombosis 12/25/2023 11:49 AM EDT D-DIMER Lab Routine Abdominal pain, left lower quadrant Portal vein thrombosis 12/25/2023 11:49 AM EDT LIPASE Lab Routine Abdominal pain, left lower quadrant Portal vein thrombosis 12/25/2023 11:49 AM EDT MAGNESIUM Lab Routine Encounter for long-term (current) use of other medications 12/25/2023 11:49 AM EDT VITAMIN B12 Lab Routine Medication management 12/25/2023 11:49 AM EDT PHOSPHORUS Lab Routine Hospital discharge follow-up 12/25/2023 11:49 AM EDT Scheduled Procedures Name Priority Associated Diagnoses Date/Ti [...] this encounter Medical Devices Implanted Type Area Circuit Breaker Mechanic Device Identifier Shelf Expiration Date Model / Serial / Lot Screw Ti Lo Pro Sd 3mm 400.833 - [id number] Implanted:Qty: 4 on 12/28/2019 by Linden Townsend MD at OR [facility] Right: Head SY[employer]ES MAXILLOFACIAL 400.833 / / Description:no expiration da te - reprocessed set Screw Ti Lo Pro Sd 4mm 400.834 - [id number] Implanted:Qty: 4 on 12/28/2019 by Linden Townsend MD at OR [facility] Right: Head SY[employer]ES MAXILLOFACIAL 400.834 / / Description:no expiration da te - reprocessed set Plate Ti Lo Pro Str 2h 421.502 - [id number] Implanted:Qty: 4 on 12/28/2019 by Linden Townsend MD at OR [facility] Right: Head SY[employer]ES MAXILLOFACIAL 421.502 / / Description:no expiration da te - reprocessed set documented as of this encounter Procedures Procedure Name Priority Date/Time Associated Diagnosis Comments DIFFERENTIAL, AUTOMATED Routine 12/25/2023 11:49 AM EDT Abdominal pain, left lower quadrant Portal vein thrombosis CBC Routine 12/25/2023 11:49 AM EDT Abdominal pain, left lower quadrant Portal vein thrombosis CBC Routine 12/25/2023 11:49 AM EDT Abdominal pain, left lower quadrant Portal vein thrombosis documented in this encounter Results * (ABNORMAL) DIFFERENTIAL, AUTOMATED (12/25/2023 11:49 AM EDT) WBC 11.90(H) 4.00 - 10.80 K/uL 12/25/2023 12:03 PM EDT [facility] 56-02 Neutrophils % 56.4 40.0 - 75.0 % 12/25/2023 12:03 PM EDT [facility] 56-02 Lymphocytes % 30.9 18.0 - 42.0 % 12/25/2023 12:03 PM EDT [facility] 56-02 Monocytes % 9.9 1.0 - 11.0 % 12/25/2023 12:03 PM EDT [facility] 56-02 Eosinophils % 2.4 0.0 - 6.0 % 12/25/2023 12:03 PM EDT [facility] 56-02 Basophils % 0.4 0.0 - 2.0 % 12/25/2023 12:03 PM EDT [facility] 56-02 Absolute Neutrophils 6.71 1.80 - 7.70 K/uL 12/25/2023 12:03 PM EDT [facility] 56-02 Absolute Lymphocytes 3.68 1.00 - 4.80 K/ul 12/25/2023 12:03 PM EDT [facility] 56-02 Absolute Monocytes 1.18(H) 0.00 - 1.10 K/uL 12/25/2023 12:03 PM EDT [facility] 56-02 Absolute Eosinophils 0.28 0.00 - 0.70 K/uL 12/25/2023 12:03 PM EDT [facility] 56-02 Absolute Basophils 0.05 0.00 - 0.20 K/uL 12/25/2023 12:03 PM EDT [facility] 56-02 Blood Venous blood specimen / Unknown Venipuncture / Unknown 12/25/2023 11:49 AM EDT 12/25/2023 11:49 AM EDT Sowmya Kitchen DO LAB BLOOD ORDERABLE S [facility] [address]- [address] [place] [address] * (ABNORMAL) CBC (12/25/2023 11:49 AM EDT) WBC 11.90(H) 4.00 - 10.80 K/uL 12/25/2023 12:03 PM EDT [facility] 56 RBC 4.49 3.85 - 5.15 M/uL 12/25/2023 12:03 PM EDT [address] HGB 13.9 12.0 - 15.3 g/dL 12/25/2023 12:[address]T [address] HCT 41.2 36.0 - 45.2 % 12/25/2023 12:03 PM EDT [address] MCV 91.8 81.5 - 97.5 fL 12/25/2023 12:03 PM EDT [address] MCH 31.0 27.0 - 34.0 pg 12/25/2023 12:03 PM EDT [address] MCHC 33.7 32.0 - 36.0 g/dL 12/25/2023 12:03 PM EDT [address] RDW 13.4 11.5 - 15.5 % 12/25/2023 12:03 PM EDT [facility] 56 PLT 806(H) 140 - 400 K/uL 12/25/2023 12:03 PM EDT [address] MPV 9.2 6.6 - 11.1 fL 12/25/2023 12:03 PM EDT [facility] 56 Blood Venous blood specimen / Unknown Venipuncture / Unknown 12/25/2023 11:49 AM EDT 12/25/2023 11:49 AM EDT Sowmya Kitchen DO LAB BLOOD ORDERABLE S [address] [place] [address] documented in this encounter Visit Diagnoses Diagnosis Acquired hypothyroidism Unspecified hypothyroidism Abdominal pain, left lower quadrant Portal vein thrombosis Encounter for long-term (current) use of other medications Hypothyroidism, unspecified type Medication management Encounter for long-term (current) use of other medications Hospital discharge follow-up Other follow-up examination Seizure (HCC) Other convulsions documented in this encounter Advance Directives Latest [...] the patient have Health Care Power of Program Arranger? No Code Status History Code Status Date [...] the patient have Health Care Power of Program Arranger? No Full Code 12/27/2019 6:35 PM 12/28/2019 9:42 AM This or janice reflects the patients wishes and were consensually agreed upon. Question Answer Comments Discussion of Advance Directives occurred with: Not Discussed Healthcare Agents on File Name Relationship Healthcare Agent [facility] p Communication Mike Doherty Spouse Emergency Contact Care Teams Irrigationist Designer Relationship Specialty Start Date End Date Courtneynovember ZAYRA [place] [facility] Steve Do[place] [address] PCP - General Physician Food Service Counter Clerk 03/23/22 documented as of this encounter
--- OUTSIDE RECORDS SUMMARY | 2024-01-25 22:57 | External Medical Summary | Summary of Care ---
Author Name Unknown Organization [facility] Address [address] [facility] [address] Phone [phone] Care Team Providers Care Hydroelectric Plant Electrical Engineer Name Role Phone Kinsey Chaparro PA-C Primary Care Provider [phone] Reason for Visit * Reason Onset Date Comments Fax 09/23/2023 Encounter Details Date Type Department Care Team (Late st Contact Info) Description 09/23/2023 Telephone Family Practice [facility] 200 [facility] [place] [address] Kinsey Chaparro PA-C 200 [facility] [place] [place] [address] Fax Allergies Active Allergy Reactions Criticality Noted Date Comments Vancomycin Itching 08/03/2019 Redness of skin documented as of this encounter (statuses as of 12/23/2023) Medications Medication Sig Dispensed Refills Start Date [...] 0 Active Famotidine 20 MG Oral Tablet (Pepcid)Indications: Dyspepsia Take 1 Tablet by mouth in the [...] Omeprazole 40 MG Oral Capsule Delayed Release (PriLOSEC)Indication s:Dyspepsia TAKE ONE CAPSULE BY MOUTH EVERY MORNING 1 HOUR BEFORE THE FIRST MEAL OF THE DAY 90 Capsule 0 08/13/2023 Active Propranolol HCl 40 MG Oral Tablet (Inderal)Indications :Headache, unspecified headache type TAKE ONE TABLET BY MOUTH TWICE A DAY IN THE MORNING AND BEFORE BEDTIME 60 Tablet 4 08/13/2023 Active Reyvow 50 MG Oral Tablet (Lasmiditan Succinate) 1 at onset of migraine. Max 1 dose in 24 hours. 15 Tablet 0 08/16/2023 Active Dicyclomine HCl 10 MG Oral Capsule (Bentyl)Indications: Abdominal pain, generalized Take 1 Capsule by mouth 4 times a day as needed for Pain, Mild, Pain, Moderate or Cramping. For abdominal pain 360 Capsule 1 08/16/2023 Active documented as of this encounter (statuses as of 12/23/2023) Active Problems Problem Noted Date Diagnosed Date [...] of pre-eclampsia; During , please notify your master coastwise yacht if you experience headache, changes in vision, [...] as of this encounter (statuses as of 12/23/2023) Resolved Problems Problem Noted Date Diagnosed Date Resolved Date Food insecurity 11/05/2022 03/07/2023 Overview: Per [facility] Protocol Other problems related to social [...] and proper diet. Consider referral to a developmental writing instructor prior to conception for maternal conditions that [...] as of this encounter (statuses as of 12/23/2023) Immunizations Name Administration Dates Next Due COVID-19 [...] encounter Miscellaneous Notes * Telephone Encounter - Laurie Mcintyre OSA - 09/23/2023 10:33 AM EST Caller requesting the following information to be faxed: Name/Company of caller: [employer], nurse / [employer] Information requested to be faxed: medications list Fax number: [phone] Attention to Name/Company: [employer], nurse / [employer] Any additional information?: n/a documented in this encounter Plan of Treatment Upcoming Encounters Date Type Department Care Team (Late st Contact Info) Description 12/25/2023 11:20 AM EDT Office Visit Neurology [place] [address] [place] [address] Cathi Wheeler PA-C [address] [place] [address] Scheduled Procedures Name Priority Associated Diagnoses Date/Ti [...] this encounter Medical Devices Implanted Type Area Centrifugal Machine Tender Device Identifier Shelf Expiration Date Model / Serial / Lot Screw Ti Lo Pro Sd 3mm 400.833 - [id number] Implanted:Qty: 4 on 12/28/2019 by Linden Townsend MD at OR [facility] Right: Head [employer]ES MAXILLOF[employer]IAL 400.833 / / Description:no expiration da te - reprocessed set Screw Ti Lo Pro Sd 4mm 400.834 - [id number] Implanted:Qty: 4 on 12/28/2019 by Linden Townsend MD at OR [facility] Right: Head SY[employer]ES MAXILLOFACIAL 400.834 / / Description:no expiration da te - reprocessed set Plate Ti Lo Pro Str 2h 421.502 - [id number] Implanted:Qty: 4 on 12/28/2019 by Linden Townsend [...] the patient have Health Care Power of Editorial Manager? No Code Status History Code Status [...] the patient have Health Care Power of Editorial Manager? No Full Code 12/27/2019 6:35 PM 12/28/2019 9:42 AM This or janice reflects the patients wishes and were consensually agreed upon. Question Answer Comments Discussion of Advance Directives occurred with: Not Discussed Healthcare Agents on File Name Relationship Healthcare Agent [facility] p Communication Mike Doherty Spouse Emergency Contact Care Teams Hydroelectric Plant Electrical Engineer Relationship Specialty Start Date End Date KrystaNovember ZAYRA [place] [address] [place] [address] PCP - General Physician Clerk Cashier 03/23/22 documented as of this encounter
--- OUTSIDE RECORDS SUMMARY | 2024-01-25 22:57 | External Medical Summary | Summary of Care ---
Author Name Unknown Organization [facility] Address [address] [place] [address] Phone [phone] Care Team Providers Care Manager Performance Improvement Name Role Phone CourtneyKinsey peralta ZAYRA Primary Care Provider [phone] Reason for Visit * Reason Onset Date Comments Information 12/25/2023 Encounter Details Date Type Department Care Team (Late st Contact Info) Description 12/25/2023 Telephone Neurology [facility] [place] [address] [place] [address] Cathi Wheeler PA-C [address] [facility] [place] [address] Information Allergies Active Allergy Reactions Criticality Noted Date [...] of pre-eclampsia; During , please notify your packerhead machine operator if you experience headache, changes [...] Date Food insecurity 11/05/2022 03/07/2023 Overview: Per [facility] Protocol Other problems related to social [...] and proper diet. Consider referral to a assembler metal furniture prior to conception for maternal conditions that [...] encounter Miscellaneous Notes * Telephone Encounter - Giles Hidalgo, academic intern - 12/25/2023 12:11 PM EDT Pharmacy calling to request diagnosis code and OV dates related to Lacosamide. Thank you, Giles Hidalgo Coding Team Lead I [facility] ([facility])(formerly Telepharmacy) 12/25/2023,12:28 PM documented in this encounter Plan of Treatment Upcoming Encounters Date Type Department Care Team (Late st Contact Info) Description 03/31/2024 9:20 AM EDT Office Visit Neurology Steve [facility] [place] [address] [place] [address] Cathi Wheeler PA-C [address] [facility] [place] [address] Scheduled Procedures Name Priority Associated Diagnoses Date/Ti [...] this encounter Medical Devices Implanted Type Area Deputy Felony Clerk Device Identifier Shelf Expiration Date Model / Serial / Lot Screw Ti Lo Pro Sd 3mm 400.833 - [id number] Implanted:Qty: 4 on 12/28/2019 by Linden Townsend MD at [place] [facility] Right: Head [employer] 400.833 / / Description:no expiration da te - reprocessed set Screw Ti Lo Pro Sd 4mm 400.834 - [id number] Implanted:Qty: 4 on 12/28/2019 by Linden Townsend MD at OR [facility] Right: Head [employer] 400.834 / / Description:no expiration da te - reprocessed set Plate Ti Lo Pro Str 2h 421.502 - [id number] Implanted:Qty: 4 on 12/28/2019 by Linden Townsend MD at OR [facility] Right: Head [employer] 421.502 / / [...] the patient have Health Care Power of Multimedia Manager? No Code Status History Code Status [...] the patient have Health Care Power of Multimedia Manager? No Full Code 12/27/2019 6:35 PM 12/28/2019 9:42 AM This o rder reflects the patients wishes and were consensually agreed upon. Question Answer Comments Discussion of Advance Directives occurred with: Not Discussed Healthcare Agents on File Name Relationship Healthcare Agent Relationshi p Communication Mike Doherty Spouse Emergency Contact Care Teams Manager Performance Improvement Relationship Specialty Start Date End Date KrystaNovember ZAYRA Buchanan [facility] Steve Doherty [place] [address] PCP - General Physician Biofuels Processing Technician 03/23/22 documented as of this encounter
--- OUTSIDE RECORDS SUMMARY | 2024-01-25 22:57 | External Medical Summary ---
Author Name Unknown Address Unknown Organization [id number]:[facility] [address] [place] [address] Laboratory Report Ordering Provider Test Date Status IRONAAYUSH HOSKINSTA 12/25/2023 11:49:16 Final Observation Date Value Abnormality Reference (Units ) Status BUN 12/25/2023 11:49:16 10 6-20 (mg/dL) Final Creatinine 12/25/2023 11:49:16 1.0 0.5-1.0 (mg/dL) Final Glomerular filtration rate/1.73 sq M.predicted [Volume Rate/Area] in Serum, Plasma or Blood by Creatinine-based formula (CKD-EPI) 12/25/2023 11:49:16 85 >=60 (mL/min) Final eGFR is calculated based on the CKD-EPI 2020 equation Sodium 12/25/2023 11:49:16 139 135-146 (m mol/L) Final Potassium 12/25/2023 11:49:16 5.0 3.5-5.1 (m mol/L) Final Cl 12/25/2023 11:49:16 105 98-107 (mm ol/L) Final CO2 12/25/2023 11:49:16 24 22-32 (mmo l/L) Final Anion gap 12/25/2023 11:49:16 10 7-15 (mmol /L) Final Glucose 12/25/2023 11:49:16 74 70-120 (mg /dL) Final Albumin 12/25/2023 11:49:16 4.6 3.8-5.0 (g /dL) Final AST (Aspartate aminotransferase) 12/25/2023 11:49:16 35 10-35 (U/L) Fin al Alk Phos 12/25/2023 11:49:16 124 35-130 (U/ L) Final Bilirubin, Total 12/25/2023 11:49:16 0.6 <=1 .2 (mg/dL) Final Calcium 12/25/2023 11:49:16 10.0 8.4-10.2 ( mg/dL) Final Protein 12/25/2023 11:49:16 6.8 6.0-8.3 (g /dL) Final ALT (Alanine aminotransferase) 12/25/2023 11:49:16 44 Above high normal 10-35 (U/L) Final Performing Location [facility] [address] [place] [address]
--- OUTSIDE RECORDS SUMMARY | 2024-01-25 22:57 | External Medical Summary ---
Author Name Unknown Address Unknown Organization K09:[facility] [place] [address] Laboratory Report Ordering Provider Test Date Status RJ PERDUE 12/25/2023 11:49:16 Final Observation Date Value Abnormality Reference (Units ) Status WBC, Total 12/25/2023 11:49:16 11.90 Above high normal 4 .00-10.80 (K/uL) Final RBC 12/25/2023 11:49:16 4.49 3.85-5.15 (M/uL) Final Hemoglobin 12/25/2023 11:49:16 13.9 12.0-15.3 (g/dL) Final HCT 12/25/2023 11:49:16 41.2 36.0-45.2 (%) Final MCV 12/25/2023 11:49:16 91.8 81.5-97.5 (fL) Final MCH 12/25/2023 11:49:16 31.0 27.0-34.0 (pg) Final MCHC 12/25/2023 11:49:16 33.7 32.0-36.0 (g/dL) Final RDW 12/25/2023 11:49:16 13.4 11.5-15.5 (%) Final Platelets 12/25/2023 11:49:16 806 Above high normal 14 0-400 (K/uL) Final MPV 12/25/2023 11:49:16 9.2 6.6-11.1 ( fL) Final Performing Location [facility] [place] [address]
--- OUTSIDE RECORDS SUMMARY | 2024-01-25 22:57 | External Medical Summary ---
Author Name Unknown Address Unknown Organization K01[facility] [place] [address] [place] [address] Laboratory Report Ordering Provider Test Date Status KEMAR PAREKH 12/25/2023 11:49:16 Final Observation Date Value Abnormality Reference (Units ) Status Vitamin B12 12/25/2023 11:49:16 814 184-8684 (pg/mL) Final Performing Location [facility] [place] [address] [place] [address]
--- OUTSIDE RECORDS SUMMARY | 2024-01-25 22:57 | External Medical Summary ---
Author Name Unknown Address Unknown Organization K09:[facility] [place] [address] Laboratory Report Ordering Provider Test Date Status MAHI SR 12/25/2023 11:49:16 Final Observation Date Value Abnormality Reference (Units ) Status Magnesium 12/25/2023 11:49:16 2.4 1.5-2.6 (m g/dL) Final Performing Location [facility] [place] [address]
--- OUTSIDE RECORDS SUMMARY | 2024-01-25 22:57 | External Medical Summary ---
Author Name Unknown Address Unknown Organization K01:[facility] [place] - [address] [place] [address] Laboratory Report Ordering Provider Test Date Status BETO QUILES 12/25/2023 11:49:16 Final Observation Date Value Abnormality Reference (Units ) Status TSH 12/25/2023 11:49:16 2.36 0.27-4.20 (uIU/mL) Final Performing Location [facility] - [address] [place] [address]
--- OUTSIDE RECORDS SUMMARY | 2024-01-25 22:57 | External Medical Summary ---
Author Name Unknown Address Unknown Organization K09:[facility] [address] Laboratory Report Ordering Provider Test Date Status RJ PERDUE 12/25/2023 11:49:16 Final Observation Date Value Abnormality Reference (Units ) Status SYNC LEUKOCYTES IN BLOOD BY AUTOMATED COUNT 12/25/2023 11:49:16 11.90 Above high normal 4.00-10.80 (K/uL) Final Segs 12/25/2023 11:49:16 56.4 40.0-75.0 (%) Final Lymphs % 12/25/2023 11:49:16 30.9 18.0-42.0 (%) Final Monos 12/25/2023 11:49:16 9.9 1.0-11.0 (%) Final Eosinophils 12/25/2023 11:49:16 2.4 0.0-6.0 (%) Final Basos 12/25/2023 11:49:16 0.4 0.0-2.0 (%) Final Absolute Segs 12/25/2023 11:49:16 6.71 1.80-7.70 (K/uL) Final Lymphs, absolute 12/25/2023 11:49:16 3.68 1.00-4.80 (K/ul) Final Monos, Abs 12/25/2023 11:49:16 1.18 Above high normal 0.00-1.10 (K/uL) Final Eos, Abs 12/25/2023 11:49:16 0.28 0.00-0.70 (K/uL) Final Basos, Abs 12/25/2023 11:49:16 0.05 0.00-0.20 (K/uL) Final Performing Location [facility] [address]
--- OUTSIDE RECORDS SUMMARY | 2024-01-25 22:57 | External Medical Summary ---
Author Name Unknown Address Unknown Organization K01:[facility] [place] [address] [place] [address] Laboratory Report Ordering Provider Test Date Status RJ PERDUE 12/25/2023 11:49:16 Final Observation Date Value Abnormality Reference (Units ) Status Lipase 12/25/2023 11:49:16 48 13-60 (U/L ) Final Performing Location [facility] [facility] [address] [place] [address]
--- OUTSIDE RECORDS SUMMARY | 2024-01-25 22:57 | External Medical Summary | Summary of Care ---
Author Name Unknown Organization [facility] Address [address] [place] [address] Phone [phone] Care Team Providers Care Shuttle Car Operator Name Role Phone Kinsey Chaparro ZAYRA Primary Care Provider [phone] Reason for Visit * Reason Onset Date Comments Nutritional Services Documentation 12/19/2023 Encounter Details Date Type Department Care Team (Late st Contact Info) Description 12/19/2023 2:30 PM EDT Scheduled Telephone Nutrition Services, [facility] [address] [place] [address] Alma Rosa Staley RDN [address] [place] [address] Allergies Active Allergy Reactions Criticality Noted Date [...] 1 08/16/2023 Active Norethindrone 0.35 MG Oral TabletIndications:PM DD (premenstrual dysphoric disorder) Take 1 Tablet by [...] Active Emgality 120 MG/ML Subcutaneous Solution Auto-injector ([facility]) Inject 1 mL under the skin Every Month. 1 mL 2 12/19/2023 Active documented as of this encounter (statuses [...] pre-eclampsia; During , please notify your sports anchor if you experience headache, changes in vision, [...] Date Food insecurity 11/05/2022 03/07/2023 Overview: Per [facility] Protocol Other problems related to [...] and proper diet. Consider referral to a brush sander prior to conception for maternal conditions that [...] Average Number of Drinks Not on file 12/09/2 019 Frequency of Binge Drinking Not on [...] encounter Miscellaneous Notes * Telephone Encounter - Alma Rosa Staley RDN - 12/19/2023 1:35 PM EDT Called patient about message regarding scheduling request. Result of call: Left voicemail and provided number for central [phone] Alma Rosa Staley, MS, RD, LDN Clinical Dietitian I Clinical Nutrition Services documented in this encounter Plan of Treatment Upcoming Encounters Date Type Department Care Team (Late st Contact Info) Description 12/21/2023 2:30 PM EDT Telemedicine Nutrition Services, [facility] [address] [place] [address] Alma Rosa Staley RDN [address] [facility] [place] [id number] 12/25/2023 11:20 AM EDT Office Visit Neurology Steve Khoury [place] [address] [facility] [place] [address] Cathi Wheeler PA-C [address] [place] [address] Scheduled Procedures Name Priority Associated Diagnoses Date/Ti [...] this encounter Medical Devices Implanted Type Area Tours Captain Device Identifier Shelf Expiration Date Model / Serial / Lot Screw Ti Lo Pro Sd 3mm 400.833 - [id number] Implanted:Qty: 4 on 12/28/2019 by Linden Townsend MD at OR [facility] [place] Right: Head [employer] 400.833 / / Description:no expiration da te - reprocessed set Screw Ti Lo Pro Sd 4mm 400.834 - [id number] Implanted:Qty: 4 on 12/28/2019 by Linden Townsend MD at OR [facility] [place] Right: Head [employer] 400.834 / / Description:no expiration da te - reprocessed set Plate Ti Lo Pro Str 2h 421.502 - [id number] Implanted:Qty: 4 on 12/28/2019 by Linden Townsedn MD at OR [facility] [place] Right: Head [employer] 421.502 / / [...] the patient have Health Care Power of Liquid Hydrogen Plant Operator? No Code Status History Code Status [...] the patient have Health Care Power of Liquid Hydrogen Plant Operator? No Full Code 12/27/2019 6:35 PM 12/28/2019 9:42 AM This or janice reflects the patients wishes and were consensually agreed upon. Question Answer Comments Discussion of Advance Directives occurred with: Not Discussed Healthcare Agents on File Name Relationship Healthcare Agent [facility] p Communication Mike Doherty Spouse Emergency Contact Care Teams Shuttle Car Operator Relationship Specialty Start Date End Date Krysta November ZAYRA Buch[place] [address] [place] [address] [place] [address] PCP - General Physician Safety Relief Valve Technician 03/23/22 documented as of this encounter
--- OUTSIDE RECORDS SUMMARY | 2024-01-25 22:57 | External Medical Summary | Summary of Care ---
Author Name Unknown Organization [facility] Address [address] [facility] [place] [address] Phone [phone] Care Team Providers Care Broom Maker Name Role Phone Kinsey Chaparro ZAYRA Primary Care Provider [phone] Reason for Visit * Reason Comments Hospital Follow-Up Encounter Details Date Type Department Care Team (Late st Contact Info) Description 12/25/2023 11:20 AM EDT Office Visit Neurology [facility] [address] [facility] [place] [address] Cathi Wheeler PA-C [address] [facility] [place] [address] Seizure disorder, simple partial, 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 0 4 Active Emgality 120 MG/ML Subcutaneous Solution Auto-injector (Galcanezumab-[facility]) Inject 1 mL under the skin Every Month. 1 mL 2 4 Active Benztropine Mesylate 0.5 MG Oral Tablet (Cogentin) Take 1 Tablet by mouth in the morning and 1 Tablet before bedtime. 0 4 Active Lacosamide 50 MG Oral Tablet (Vimpat) Take 2 Tablets by mouth in the morning and 2 Tablets before bedtime. 120 Tablet 2 4 Active Lacosamide 50 MG Oral Tablet [...] of pre-eclampsia; During , please notify your pad machine operator if you experience headache, changes [...] Date Food insecurity 11/05/2022 03/07/2023 Overview: Per [facility] Protocol Other problems related to social [...] and proper diet. Consider referral to a remote broadcast technician prior to conception for maternal conditions that [...] on file documented as of this encounter Last Filed Vital Signs Vital Sign Reading Time Taken Comments Blood Pressure 110/70 12/25/2023 11:24 AM EDT Pulse 72 12/25/2023 11:24 AM EDT Temperature 37 C (98.6 F) 12/25/2023 11:24 AM EDT Respiratory Rate - - Oxygen Saturation 98% 12/25/2023 11:24 AM EDT Inhaled Oxygen Concentration - - Weight 73.1 kg (161 lb 1.6 oz) 12/25/2023 11:24 AM EDT Height - - Body Mass Index 28.05 12/17/2023 1:27 PM EDT documented in this encounter Functional Status Functional Status Response [...] as of this encounter Progress Notes * Cathi Wheeler PA-C - 12/25/2023 11:21 AM EDT HISTORY & PHYSICAL EXAMINATION - NEUROLOGY Name: Delfina Doherty Date: 12/25/2023 Time: 11:21 AM Referring Provider: Asim Valdes, * Chief Complaint: Chief Complaint Patient presents with Hospital Follow-Up This is a 23 year old right handed woman returns today for follow up for seizure. HPI & Source of HPI The patient was the historian, and she is reliable. She was seen at [facility] 12/10/23. 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 She was in in the ED earlier that day with brief unresponsive episode ,possible syncope versus seizures and workup was okay and she was discharged. After going home she seems to had a 3 minutes of tonic- clonic seizures and had 3 minutes of postictal state. She was complaining of a headache.and some mild nausea. It was discussed with [place] neurology and plan to do CTA head and neck and if theyare okay to monitor in [facility] and plan to do MRI and an EEG..She was admitted in August 2023 with suicidal ideation at the time she also found to COVID and was seen by psychiatry. She was started on Vimpat 100 mg BID and has not had any recurrent seizures. During the stay Wellbutrin was also discontinued. No family history of seizure, no febrile seizures. She no longer works she [place] disability, a non smoker, minimal EtOH use, no other drugs denies CP, SOB, abdominal pain N, V. I have reviewed the patient's medications and allergies, past medical, surgical, social and family history, updating these as appropriate. See Histories section of the electronic medical record for adisplay of this information. Patient Active Problem List Diagnosis Code Severe episode of recurrent major depressive disorder, with psychotic features ([facility]) F33.3 Thrombocytosis after splenectomy ([facility]) D75.838, Z90.81 Vitamin D deficiency E55.9 Brock brock disease I67.5 Essential hemorrhagic thrombocythemia ([facility]) D47.3 Amenorrhea N91.2 Migraine without aura and without status migrainosus, not intractable G43.009 Intermittent asthma with reliever use up to twice per week without complication J45.20 Female infertility N97.9 Hyperprolactinemia ([facility]) E22.1 Asplenia Q89.01 Schizoaffective disorder, depressive type ([facility]) F25.1 PTSD (post-traumatic stress disorder) F43.10 Borderline personality disorder ([facility]) F60.3 Thrombosis of mesenteric vein ([facility]) K55.069 Portal vein thrombosis I81 Pulmonary nodule, left R91.1 Hereditary spherocytosis ([facility]) D58.0 Major depression with psychotic features ([facility]) F32.3 Gastro-esophageal reflux disease without esophagitis K21.9 Allergic rhinitis J30.9 Eating disorder F50.9 Right wrist pain M25.531 Bipolar 1 disorder, depressed, severe ([facility]) F31.4 Suicidal ideation R45.851 Family History Problem Relation Age of Onset Allergies Mother Seasonal pollen allergies Allergies Father Allergic rhinitis No Known Problems Sister No Known Problems Brother Dementia Grandmother (Maternal) Coronary Artery disease Grandfather (Maternal) Medications: Are you taking your medications? yes Current Outpatient Medications Medication Sig Dispense Refill Albuterol Sulfate HFA 108 (90 Base) MCG/ACT Inhalation Aerosol Solution Inhale by mouth 2 Puffs every 4 hours as needed (dyspnea). INHALE TWO PUFFS BY MOUTH EVERY 4 HOURS NEEDED FOR DYSPNEA 18 g 4 Doxepin HCl 25 MG Oral Capsule (SINEquan) Take 1 Capsule by mouth at bedtime. LORazepam 1 MG Oral Tablet (Ativan) Take 1 Tablet by mouth every 8 hours as needed. Famotidine 20 MG Oral Tablet (Pepcid) Take 1 Tablet by mouth in the morning and 1 Tablet before bedtime. 180 Tablet 1 Ondansetron 4 MG Oral Tablet Disintegrating (Zofran) Place 1 Tablet on tongue every 8 hours as needed for Nausea. 40 Tablet 0 Apixaban 5 MG Oral Tablet (Eliquis) Take 1 Tablet by mouth in the morning and 1 Tablet before bedtime. 60 Tablet 4 Levothyroxine Sodium 50 MCG Oral Tablet (Levoxyl) Take 1 Tablet by mouth in the morning. (at least 30 min prior to breakfast or other meds). 30 Tablet 6 Omeprazole 40 MG Oral Capsule Delayed Release (PriLOSEC) TAKE ONE CAPSULE BY MOUTH EVERY MORNING 1 HOUR BEFORE THE FIRST MEAL OF THE DAY 90 Capsule 0 Propranolol HCl 40 MG Oral Tablet (Inderal) TAKE ONE TABLET BY MOUTH TWICE A DAY IN THE MORNING ANDBEFORE BEDTIME 60 Tablet 4 Reyvow 50 MG Oral Tablet (Lasmiditan Succinate) 1 at onset of migraine. Max 1 dose in 24 hours. 15 Tablet 0 Dicyclomine HCl 10 MG Oral Capsule (Bentyl) Take 1 Capsule by mouth 4 times a day as needed for Pain, Mild, Pain, Moderate or Cramping. For abdominal pain 360 Capsule 1 Norethindrone 0.35 MG Oral Tablet Take 1 Tablet by mouth in the morning. 84 Tablet 1 Gabapentin 300 MG Oral Capsule (Neurontin) Take 1 Capsule by mouth in the morning and 1 Capsule at noon and 1 Capsule before bedtime. Emgality 120 MG/ML Subcutaneous Solution Auto-injector (Galcanezumab-[facility]) Inject 1 mL under the skin Every Month. 1 mL 2 Benztropine Mesylate 0.5 MG Oral Tablet (Cogentin) Take 1 Tablet by mouth in the morning and 1 Tablet before bedtime. Lacosamide 50 MG Oral Tablet (Vimpat) Take 2 Tablets by mouth in the morning and 2 Tablets before bedtime. 120 Tablet 2 No current facility-administered medications for this visit. Review of patient's allergies indicates: Allergen Reactions Vancomycin Itching Redness of skin Review of Systems: A total number of 10 systems were reviewed pertinent negative and positives not addressed in HPI are listed in the following review. Physical Exam: Constitutional: BP 110/70 (BP Site: Right Arm, BP Position: Sitting, BP Cuff Size: Regular) | Pulse 72 | Temp 37 C (98.6 F) (Tympanic) | Wt 73.1 kg (161 lb 1.6 oz) | SpO2 98% | BMI 28.05 kg/m | BSA 1.81 m , appearance nourished, healthy, and normal Ears, Nose, Mouth and Throat: mucous membranes moist, no injection and skin normal, eyes normal Cardiovascular: normal S-1 and S-2 and regular rate and rhythm Respiratory: clear to auscultation (CTA) and no rales, ronchi or wheeze Musculoskeletal: no peripheral edema Skin: normal and intact Eyes: extraocular muscles intact (EOMI) and pupils equal, round and reactive to light (PERRL) NEUROLOGIC EXAMINATION: Mental status: Alert and interactive Oriented to full date and location Oriented to person Speech fluent with no evidence of aphasia, slight speech impediment Cranial Nerves Normal findings for Cranial Nerves II - XII Coordination: rapid alternating movements are intact: Bilateral and on [id number] Gait/Stance: Posture normal. Gait normal: with steady with steps, base, arm swing, and tandem gait. Motor: Negative for pronator drift of out stretched arms with eyes closed. Strength: Normal - 5/5 all extremities LABORATORY: Recent labs reviewed Review of prior Studies: EEG- BP 12/11/23-This is a normal awake and asleep routine EEG. There is no evidence of focal slowing or epileptiform activity. CTA head-There is occlusion of the distal right cavernous carotid artery with recanalization of theright supraclinoid segment with diminished enhancement of the right MCA vessels. there is a right external carotid to MCA bypass utilizing the right temporal artery. CTA neck-The right ICA is diminished in size likely secondary to outflow obstruction. MRI brain-No acute infarct or intracranial hemorrhage. 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 This likely accounts for the mild diffuse atrophy within the right cerebral hemisphere. Small foci of ence phalomalacia within the right high convexity and right occipital lobe likely due to old infarcts orold postoperative change. Impression: Delfina Doherty is a 23 year old woman with a history of seizure. Her neurologic examination today reveals no new focal deficit. The history and examination are suggestive of diagnosis/problem list. Testing and Referrals ordered: lab ICD-10-CM 1. 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 Migraine without aura and without status migrainosus, not intractable G43.009 3. Brock brock disease I67.5 4. Hyperprolactinemia (HCC) E22.1 Return in 3 months or sooner if needed Continue Vimpat 50 mg (2 tab) twice daily EKG was done at [facility] and was NCR incomplete right bundle block- will repeat at next visit Do not drive until seizure free for 6 months. Avoid all other activities in which a sudden loss of consciousness would be dangerous, including but not limited to unsecured heights (scaffolding, ladders...), heavy machiner or machine tools or other machinery with moving parts, open flame, swimming pools (keeping in mind that a bathtub full of water is a small swimming pool), etc. PCP for medical management Call with questions concerns Medical Decision Making (determined by lowest of 2 of 3 elements): The medical decision making element of the number and complexity of problems addressed included at least 2 or more stable chronic illnesses (level 4). The medical decision making element of risk of complications, morbidity, and mortality of patient management is moderate (level 4) due to prescription drug management (moderate risk). The medical decision making element of the amount and complexity of data reviewed and analyzed included an independent interpretation of a test (level 4 at least). When 2 of 3 reach level 4, then this element is considered extensive (level 5). I personally spent a total of 30 minutes. This time was for a new office or established visit and was on the same calendar day. Education / Consultation - Topics covered as I spent 20 minutes, which is greater than 50% of this visit, counseling the patient on: Diagnostic Results Prognosis Importance of compliance with chosen treatment options Risk factor reductions Patient and family education Consulted with physician: Nash Martinez DO was available for direct supervision. Copy of note sent to PCP and Referring Provider. Total time of visit: 30 minutes. Cathi Wheeler PA-C Neurology [address] [place] [address] [address] [place] [address] 12/25/2023 11:21 AM documented in this encounter Nursing Notes * Davina Huynh LPN - 12/25/2023 11:22 AM EDT Chief Complaint Patient presents with Hospital Follow-Up Pt was in [facility] two weeks ago documented in this encounter Plan of Treatment Upcoming Encounters Date Type Department Care Team (Late st Contact Info) Description 03/31/2024 9:20 AM EDT Office Visit Neurology [facility] [address] [place] [address] Cathi Wheeler PA-C [address] [facility] [place] [address] Pending Results Name Type Priority Associated Diagnoses Date /Time LACOSAMIDE Lab Routine Seizure disorder, simple partial, 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) 12/25/2023 11:49 AM EDT Scheduled Procedures Name [...] this encounter Medical Devices Implanted Type Area Production Manager Device Identifier Shelf Expiration Date Model / Serial / Lot Screw Ti Lo Pro Sd 3mm 400.833 - [id number] Implanted:Qty: 4 on 12/28/2019 by Linden Townsend MD at [facility] Right: Head [employer] 400.833 / / Description:no expiration da te - reprocessed set Screw Ti Lo Pro Sd 4mm 400.834 - [id number] Implanted:Qty: 4 on 12/28/2019 by Linden Townsend MD at [facility] Right: Head [employer] 400.834 / / Description:no expiration da te - reprocessed set Plate Ti Lo Pro Str 2h 421.502 - [id number] Implanted:Qty: 4 on 12/28/2019 by Linden Townsend MD at [facility] Right: Head [employer] 421.502 / / Description:no expiration da te - reprocessed set documented as of this encounter Visit Diagnoses Diagnosis Seizure disorder, simple partial, 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 No Code Status History Code Status [...] the patient have Health Care Power of Internal Control Specialist? No Full Code 12/27/2019 6:35 PM 12/28/2019 9:42 AM This or janice reflects the patients wishes and were consensually agreed upon. Question Answer Comments Discussion of Advance Directives occurred with: Not Discussed Healthcare Agents on File Name Relationship [facility] Mike Do[facility] Spouse Emergency Contact Care Teams Broom Maker Relationship Specialty Start Date End Date Krysta November ZAYRA [place] [address] [place] [address] PCP - General Physician Square [employer] 03/23/22 documented as of this encounter
--- OUTSIDE RECORDS SUMMARY | 2024-01-25 22:57 | External Medical Summary ---
Author Name Unknown Address Unknown Organization K09:[facility] [place] [place] [address] Laboratory Report Ordering Provider Test Date Status 12/25/2023 11:49:16 Final Observation Date Value Abnormality Reference (Units ) Status Phosphate 12/25/2023 11:49:16 4.1 2.5-4.8 (m g/dL) Final Performing Location [facility] [place] [address]
--- OUTSIDE RECORDS SUMMARY | 2024-01-25 22:57 | External Medical Summary ---
Author Name Unknown Address Unknown Organization : Laboratory Report Ordering Provider Test Date Status ENRRIQUE TRAN 12/25/2023 11:49:16 Final Observation Date Value Abnormality Reference (Units ) Status Lacosamide [Mass/volume] in Serum or Plasma 12/25/2023 11:49:16 7.3 (mcg/mL) Final Expected concentrations of L acosamide in patients
receiving recommended daily dosages: Up to 15.0 mcg/mL.
Toxic range not established
This test was developed and its analytical performance
characteristics have been determined by [facility]. It has not been cleared or approved by the
FDA. This assay has been validated pursuant to the CLIA
regulations and is used for clinical purposes.
Test performed by:
[facility]
[address] [facility]
[place] [address]

[phone]
Soils Technician: Anatoliy Downey M.D.
Test Rep[facility] by [facility],
[facility],
[address] [place], [place]
Nick Villalpando M.D., Ph.D., Director of Laboratories
, CLIA [id number] Performing Location
--- OUTSIDE RECORDS SUMMARY | 2024-01-25 22:57 | External Medical Summary ---
Author Name Unknown Address Unknown Organization K01:[facility] [place] - [facility] [address] [place] [address] Laboratory Report Ordering Provider Test Date Status RJ PERDUE 12/25/2023 11:49:16 Final Rheumatoid factor at a level above 50 IU/mL may lead to an overestimation of the D-dimer level. A normal D-dimer result (<0.50 ug/mL FEU) has a negative predictive value of approximately 95% for the exclusion of acute pulmonary embolism (PE) or deep vein thrombosis when there is low or moderate pretest PE probability. Increased D-dimer values are abnormal but do not indicate a specific disease state and the D-dimer increase does not definitively correlate with clinical severity of disease. Observation Date Value Abnormality Reference (Units ) Status Fibrin D-dimer FEU [Mass/volume] in Platelet poor plasma by Immunoassay 12/25/2023 11:49:16 <0.27 <0.50 (ug/mL FEU) Final Performing Location LABORATORY [facility] - [facility] [address] [place] [address]
--- OUTSIDE RECORDS SUMMARY | 2024-01-25 22:57 | External Medical Summary | Summary of Care ---
Author Name Unknown Organization [facility] Address [address] [facility] [place] [address] Phone [phone] Care Team Providers Care Manager Of Health Name Role Phone Kinsey Chaparro PA-C Primary Care Provider [phone] Reason for Visit * Reason Comments Hospital Follow-Up Patient was discharg ed from the hospital December 03. Patient states that she is feeling well Encounter Details Date Type Department Care Team (Late st Contact Info) Description 12/17/2023 1:00 PM EDT Office Visit [facility] [place] [address] [facility] [place] [address] Kinsey Chaparro PA-C [address] [facility] [address] [place] [id number] Seizure (HCC)*; Severe episode of recurrent major depressive disorder, with psychotic features (HCC); Borderline personality disorder (HCC); Suicidal ideation; Schizoaffective disorder, depressive type (HCC); Thrombocytosis after splenectomy Allergies Active Allergy Reactions Criticality Noted Date Comments Vancomycin Itching 08/03/2019 Redness of skin documented as of this encounter (statuses as of 12/17/2023) Medications Medication Sig Dispensed Refills Start Date [...] BEFORE BEDTIME 60 Tablet 4 08/13/2023 Active Emgality 120 MG/ML Subcutaneous Solution Auto-injector (Galcanezumab-[facility]) Inject 1 mL under the skin Every Month. 1 mL 2 08/13/2023 Active Additional Information Patient not taking.Reported on 12/17/2023 Reyvow 50 MG Oral Tablet (Lasmiditan Succinate) [...] 1 Capsule before bedtime. 0 12/17/2023 Active documented as of this encounter (statuses as of 12/17/2023) Active Problems Problem Noted Date Diagnosed Date [...] of pre-eclampsia; During , please notify your ob gyn if you experience headache, changes in vision, [...] as of this encounter (statuses as of 12/17/2023) Resolved Problems Problem Noted Date Diagnosed Date Resolved Date Food insecurity 11/05/2022 03/07/2023 Overview: [facility] Protocol Other problems related to social [...] and proper diet. Consider referral to a director of dietary prior to conception for maternal conditions that [...] as of this encounter (statuses as of 12/17/2023) Immunizations Name Administration Dates Next Due COVID-19 [...] Sign Reading Time Taken Comments Blood Pressure 118/72 12/17/2023 1:27 PM EDT Pulse 66 12/17/2023 1:27 PM EDT Temperature 36.3 C (97.4 F) 12/17/2023 1:27 PM ED T Respiratory Rate - - Oxygen Saturation 98% 12/17/2023 1:27 PM EDT Inhaled Oxygen Concentration - - Weight 73.5 kg (162 lb) 12/17/2023 1:27 PM EDT Height 161.4 cm (5' 3.54") 12/17/2023 1:27 PM ED T Body Mass Index 28.21 12/17/2023 1:27 PM EDT documented in this [...] as of this encounter Progress Notes * Kinsey Chaparro PA-C - 12/17/2023 1:44 PM EDT Images from the original note were not included. History of Present Illness Delfina Doherty is a 23 year old female that presents for Hospital Follow-Up (Patient was discharged from the hospital December 03. Patient states that she is feeling well) Patient is 23 year old female who presents after 2 recent hospitalizations. Was hospitalized at [facility] from 11/24/23-12/04/2023. She was hospitalized for suicidal ideation. Her discharge diagnosis were major depressive disorder, borderline personality disorder, bipolor disorder. And suicidal ideation. Was started on gabapentin 300mg TID. Then on 12/08 she was noted to have a seizure. Was taken to the ER; did a ct scan which was normal. Was sent home. Then had another episode where she ended up falling down , and hit her head on a door.. taken by ambulance to the ER. Was kept a few day. She had extensive testing no abnormalities noted. Was started on vimpat. No problems with new med. No new seizure activity. Appetite good Sleep good Urination/ bowel movements Physical Exam Vitals: 12/17/23 1327 Temp: 36.3 C (97.4 F) Pulse: 66 SpO2: 98% BP: 118/72 BMI: 28.21 BP Readings from Last 3 Encounters: 12/17/23 118/72 04/27/23 116/70 03/27/23 118/72 Wt Readings from Last 3 Encounters: 12/17/23 73.5 kg (162 lb) 03/27/23 84.8 kg (187 lb) 03/22/23 84.2 kg (185 lb 9.6 oz) General: alert, healthy, no distress, well nourished, well developed, comfortable, and cooperative Head: Normocephalic, No masses, lesions, tenderness or abnormalities Eye Exam: PERRLA, extraocular movements intact, conjunctiva are pink and non- injected, sclera clear Neck: supple, no adenopathy, no bruits, thyroid normal size, non-tender, without nodularity Heart: regular rate & rhythm, no murmur, and no gallops Lungs: chest symmetric with normal AP diameter, no chest deformities noted, normal respiratory rateand rhythm, no chest wall tenderness, diaphragmatic excursion normal, lungs clear to auscultation Extremities: less than 2 second capillary refill, no joint deformities, effusion, or inflammation, no edema, no skin discoloration, no clubbing, no cyanosis Neuro Exam: alert & oriented x 3 with fluent speech, no focal motor/sensory deficits, gait normal I have reviewed the following results: None Assessment and Plan Seizure (HCC) (Primary) - CBC; Future; Expected date: 12/17/2023 - COMPREHENSIVE METABOLIC PANEL; Future; Expected date: 12/17/2023 - MAGNESIUM; Future; Expected date: 12/17/2023 - PHOSPHORUS; Future; Expected date: 12/17/2023 Severe episode of recurrent major depressive disorder, with psychotic features (HCC) Borderline personality disorder (HCC) Suicidal ideation Schizoaffective disorder, depressive type (HCC) Thrombocytosis after splenectomy Wrap-Up Time: I spent a total of 40-54 minutes (exact time 45 mins) on the date of service in preparation, delivery, and documentation of the care provided to Delfina Doherty excluding any time spent in the performance of separately billed services. documented in this encounter Nursing Notes * Justine Conklin MED ASSIST - 12/17/2023 1:27 PM EDT Chief Complaint Patient presents with Hospital Follow-Up Patient was discharged from the hospital December 03. Patient states that she is feeling well documented in this encounter Plan of Treatment Upcoming Encounters Date Type Department Care Team (Late st Contact Info) Description 12/25/2023 11:20 AM EDT Office Visit Neurology [facility] [address] [place] [address] Cathi Wheeler PA-C [address] [place] [id number] Scheduled Orders Name Type Priority Associated Diagnoses Orde r Schedule CBC Lab Routine Seizure (HCC) Expected: 12/17/2023 (Approximate), Expires: 12/16/2024 COMPREHENSIVE METABOLIC PANEL Lab Routine Seizure (HCC) Expected: 12/17/2023 (Approximate), Expires: 12/16/2024 MAGNESIUM Lab Routine Seizure (HCC) Expected: 12/17/2023 (Approximate), Expires: 12/16/2024 PHOSPHORUS Lab Routine Seizure (HCC) Expected: 12/17/2023 (Approximate), Expires: 12/16/2024 Scheduled Procedures Name Priority Associated Diagnoses Date/Ti [...] this encounter Medical Devices Implanted Type Area Wax Pumper Device Identifier Shelf Expiration Date Model / Serial / Lot Screw Ti Lo Pro Sd 3mm 400.833 - [id number] Implanted:Qty: 4 on 12/28/2019 by Linden Townsend MD at [facility] [place] Right: Head [employer] 400.833 / / Description:no expiration da te - reprocessed set Screw Ti Lo Pro Sd 4mm 400.834 - [id number] Implanted:Qty: 4 on 12/28/2019 by Linden Townsend MD at [facility] [place] Right: Head [employer] 400.834 / / Description:no expiration da te - reprocessed set Plate Ti Lo Pro Str 2h 421.502 - [id number] Implanted:Qty: 4 on 12/28/2019 by Linden Townsend MD at [facility] [place] Right: Head [employer] 421.502 / / Description:no expiration da te - reprocessed set documented as of this encounter Visit Diagnoses Diagnosis Seizure (HCC)- Primary Other convulsions Severe episode of recurrent major depressive disorder, with psychotic features (HCC) Borderline personality disorder (HCC) Borderline personality disorder Suicidal ideation Schizoaffective disorder, depressive type (HCC) Schizoaffective disorder, unspecified condition Thrombocytosis after splenectomy documented in this encounter Advance Directives Latest [...] the patient have Health Care Power of Manager Rehab? No Code Status History Code Status Date [...] the patient have Health Care Power of Manager Rehab? No Full Code 12/27/2019 6:35 PM 12/28/2019 9:42 AM This or janice reflects the patients wishes and were consensually agreed upon. Question Answer Comments Discussion of Advance Directives occurred with: Not Discussed Healthcare Agents on File Name Relationship Healthcare Agent [facility] p Communication Mike Doherty Spouse Emergency Contact Care Teams Manager Of Health Relationship Specialty Start Date End Date Courtneynovember ZAYRA [place] [facility] [place][note 2] [place] [id number] PCP - General Physician System Specialist 03/23/22 documented as of this encounter
--- OUTSIDE RECORDS SUMMARY | 2024-01-25 22:57 | External Medical Summary | Summary of Care ---
Author Name Unknown Organization [facility] Address [address] [place] [address] Phone [phone] Care Team Providers Care Belly Dump Driver Name Role Phone CourtneyKinsey peralta Dewayne IVERSON Primary Care Provider [phone] Reason for Referral * Evaluate & Treat - Unlimited Visits (Within 3 days (urgent)) - Pending Review Specialty Diagnoses / Procedures Referred By Jil olivia Referred To Contact Psychiatry / Psychology Diagnoses MDD (major depressive disorder), recurrent episode, moderate (HCC) PTSD (post-traumatic stress disorder) Grief Donna Lazaro PsyD [address] [place] [address] Referral ID Status Reason Start Date Expiration Date Visits Requested Visits Authorized [id number] Pending Review Specialty Services Required 12/27/2023 999 [id number] Question Answer Referral Priority Within 3 days (urgent) Where should this appointment be scheduled? [facility] Comments Recently released from psychiatric hospitalization for SI Recent loss (father) led to increased symptoms (depression, SI, trauma symptoms) Evidence for potential Borderline Personality Disorder dx Reason for Visit * Reason Comments Follow Up * - Authorized Specialty Diagnoses / Procedures Referred By Jil olivia Referred To Contact Referral ID Status Reason Start Date Expiration Date V isits Requested Visits Authorized [id number] Authorized 03/14/2023 03/12/2024 999 [id number] Encounter Details Date Type Department Care Team (Late st Contact Info) Description 12/27/2023 2:30 PM EDT Telemedicine Psychology, [facility] [address] [place] [address] Donna Lazaro, PsyD [address] [place] [address] MDD (major depressive disorder), recurrent episode, moderate (HCC)*; PTSD (post-traumatic stress disorder); Grief Allergies Active Allergy Reactions Criticality Noted Date Comments Vancomycin Itching 08/03/2019 Redness of skin documented as of this encounter (statuses as of 12/27/2023) Medications Medication Sig Dispensed Refills Start Date [...] Active Emgality 120 MG/ML Subcutaneous Solution Auto-injector (Galcanezumab-[facility]) Inject 1 mL under the skin [...] as of this encounter (statuses as of 12/27/2023) Active Problems Problem Noted Date Diagnosed Date [...] of pre-eclampsia; During , please notify your molecular spectroscopist if you experience headache, changes in vision, [...] as of this encounter (statuses as of 12/27/2023) Resolved Problems Problem Noted Date Diagnosed Date Resolved Date Food insecurity 11/05/2022 03/07/2023 Overview: Per [facility] Protocol Other problems related to social [...] and proper diet. Consider referral to a fugitive investigator prior to conception for maternal conditions that [...] as of this encounter (statuses as of 12/27/2023) Immunizations Name Administration Dates Next Due COVID-19 [...] Progress Notes * Donna Lazaro, PsyD - 12/27/2023 2:28 PM EDT Patient location: HOME. I was not in a hospital or clinic location. After connecting through [employer], patient was verified with two unique identifiers. Patient (or authorized legal commercial sales representative) was then informed that this was [...] that I have reviewed their record in [employer] and presented the opportunity for them to ask any questions regarding the visit today. The patient agreed to participate. Provider reviewed elements of Outpatient Services Description including limits of confidentiality, how to contact the department, risks and benefits of treatment and consent for treatment. Start Time: 2:31pm Stop Time: 3:01pm Total direct ibam-lv-aqfs time: 30 minutes Confirmed Pt's location at home in [place], [place]. BEHAVIORAL MEDICINE PROGRESS NOTE Psychology, [address] [facility] [id number] 12/27/2023 2:30 PM TYPE OF VISIT: Individual DIAGNOSIS: MDD, recurrent, moderate; PTSD; Grief R/O Borderline Personality Disorder REASON FOR FOLLOW-UP: Individual therapy Session #: 4 SESSION FOCUS: Grief/Loss; vIOP referral NOTES: Delfina last attended appointment with herb on 09/24/2023. Herb reviewed EMR since then. Delfina presented to this appointment with depression symptoms, some mild anxiety symptoms, trauma-related symptoms, and grief. She denied any current SI or any recent or current NSSIB.Undersignedinquired about psychiatric hospitalization since last appointment that was indicated in EMR when rajeshigned reviewed. Delfina reported that her father shortly after the last appointment with herb. Undersigned offered condolences and support. Delfina reported that the grief and seeing her father is such an ill state (prior to his passing) was incredibly difficult to tolerate and worsened her mental health symptoms. She reported that she started to experience active SI and went to her local ED for evaluation, and was subsequently hospitalized. She denied any SI intent, plan,or preparations since last appointment with herb. She described going to the ED as an effortto prevent her SI from worsening to a point of intent or plan. Delfina reported some fleeting passive SI since being discharged from the hospital. Crisis plan was reviewed. Rajeshigned inquired aboutdischarge recommendations from psychiatric hospitalization, noting that she was not notified of Delfina's hospitalization or her discharge. Delfina reported that she was referred to PHP and IOP options. She reported that she declined them, because she is planning to start a local social and vocational rehabilitation program for adults with serious mental health issues at the ([facility]) [facility]. Rajeshigned recommended [facility] vIOP and provided information about the structure. Undersigned encouraged Delfina to consider the referral and planning her time at the [facility] around the vIOP . Delfina was receptive to this. Herb placed the associated referral. Delfina reported that she continues to see Joanne Steele at [facility] for psychiatry/medication management services, and her next appointment is on Saturday. Delfina has not yet completed an JUAN for her psychiatry provider. Herb will follow-up and have forms sent. Delfina also spent some time processing the loss of her father and positive memories she has of him. Rajeshigned provided active listening, emotional validation, normalized the grieving process, and provided reminders about helpful coping strategies for grief (social support, expressing emotions, co ntinuing to engage in hobbies/interests, tending to basic human needs, etc.). Delfina was receptive. Undersigned recommended increasing frequency of appointments until Delfina is able to start vIOP. Delfina declined due to schedule preference. Delfina was scheduled based on her preference. Delfina agreed to reach out sooner, if needed. Delfina agreed to utilize her crisis plan, if needed. PROGRESS TOWARDS GOALS: -Safety planning -Treatment planning and goal setting -Insight into warning signs of worsening symptoms -[place] coping strategies for depression symptoms (behavioral activation, social support, gratitude lists, mindfulness, socratic questions) -[place] psychoeducation about loss/grief and coping strategies to manage grief (social support, expressing feelings, taking care of basic physical needs, maintaining interests/hobbies, etc.) -[place] resource for information and coping with trauma-related symptoms: PTSD Gift Shop Assistant [place] Goal: Improved self-management of depression and anxiety symptoms. Objective Measures: Stiven-7 Question 12/27/2023 10:05 AM EDT - Filed by Patient Over the last 2 weeks, how often have you been bothered by the following problems? Feeling nervous, anxious, or on edge Several days Not being able to stop or control worrying Several days Worrying too much about different things Nearly every day Trouble relaxing Nearly every day Being so restless that is hard to sit still Not at all Becoming easily annoyed or irritable Not at all Feeling afraid as if something awful might happen Several days Total score of all questions (range: 0 - 21) 9 (Mild) Phq9-Depression Question 12/27/2023 10:06 AM EDT - Filed by Patient Over the last two weeks, how often have you been bothered by any of the following problems? Little interest or pleasure in doing things Several days Feeling down, depressed or hopeless Several days Over the last two weeks, how often have you been bothered by any of the following problems? Trouble falling or staying asleep, or sleeping too much Several days Feeling tired or having little energy Several days Poor appetite or overeating Several days Feeling bad about yourself - or that you are a failure, or have let yourself or your family down Nearly everyday Trouble concentrating on things, such as reading the newspaper or watching television Several days Moving or speaking so slowly that other people could have noticed. Or the opposite - being so fidgety or restless that you have been moving around a lot more than usual Not at all Thoughts that you would be better off , or of hurting yourself Not at all Question 1 score (range: 0 - 3) 1 Question 2 score (range: 0 - 3) 1 Question 3 score (range: 0 - 3) 1 Question 4 score (range: 0 - 3) 1 Question 5 score (range: 0 - 3) 1 Question 6 score (range: 0 - 3) 3 Question 7 score (range: 0 - 3) 1 Question 8 score (range: 0 - 3) 0 Question 9 score (range: 0 - 3) 0 Sum of all PHQ9 questions. (range: 0 - 27) 9 (Mild Depression) Ptsd Checklist (Pcl-5) Assessment Question 12/27/2023 10:07 AM EDT - Filed by Patient Below is a list of problems that people sometimes have in response to a very stressful experience. Please read each problem carefully and then select one of the options to the right to indicate how much you have been bothered by that problem in the past month. Repeated, disturbing, and unwanted memories of the stressful experience? A little bit Repeated, disturbing dreams of the stressful experience? A little bit Suddenly feeling or acting as if the stressful experience were actually happening again (as if you were actually back there reliving it)? A little bit Feeling very upset when something reminded you of the stressful experience? A little bit Having strong physical reactions when something reminded you of the stressful experience (for example, heart pounding, trouble breathing, sweating)? A little bit Avoiding memories, thoughts, or feelings related to the stressful experience? A little bit Below is a list of problems that people sometimes have in response to a very stressful experience. Please read each problem carefully and then select one of the options to the right to indicate how much you have been bothered by that problem in the past month. Avoiding external reminders of the stressful experience (for example, people, places, conversations, activities, objects, or situations)? Quite a bit Trouble remembering important parts of the stressful experience? Quite a bit Having strong negative beliefs about yourself, other people, or the world (for example, having thoughts such as: I am bad, there is something seriously wrong with me, no one can be trusted, the worldis completely dangerous)? Extremely Blaming yourself or someone else for the stressful experience or what happened after it? Extremely Having strong negative feelings such as fear, horror, anger, guilt, or shame? A little bit Loss of interest in activities that you used to enjoy? A little bit Below is a list of problems that people sometimes have in response to a very stressful experience. Please read each problem carefully and then select one of the options to the right to indicate how much you have been bothered by that problem in the past month. Feeling distant or cut off from other people? A little bit Trouble experiencing positive feelings (for example, being unable to feel happiness or have loving feelings for people close to you)? A little bit Irritable behavior, angry outbursts, or acting aggressively? A little bit Taking too many risks or doing things that could cause you harm? A little bit Being "superalert" or watchful or on guard? A little bit Feeling jumpy or easily startled? A little bit Having difficulty concentrating? Quite a bit Trouble falling or staying asleep? Quite a bit PCL-5 34>33, positive [place] Suicide Severity Rating Scale Results 12/27/2023 14:38 [place] SUICIDE SEVERITY RATING SCALE (C-SSRS) Have you wished you were or wished you could go to sleep and not wake up? (In the Past Month or Since Last Visit) Yes Have you had any actual thoughts of killing yourself? (In the Past Month or Since Last Visit) Yes Have you been thinking about how you might do this? (In the Past Month or Since Last Visit) No Have you had thoughts and had some [...] participate in less restrictive means of help;Help-Seeking Behaviors;Access to appropriate services Risk Factors History of Depression;History of Trauma;Anxiety INTERVENTIONS: Cognitive Behavioral Therapy and Supportive Therapy PATIENT EDUCATION: Verbal & written MENTAL STATUS [...] recent HI or NSSIB. Risk Level Impression: -Low to Intermediate risk: Continue individual OP Therapy and medication management until able to start vIOP; use [facility] Crisis plan and/or crisis resources, as needed. FOLLOW-UP PLAN: Return: 1 week unless able to start vIOP before then. Action Plan: 1. Continue Cognitive Behavioral Therapy 2. Continue medication management with Joanne Steele at [facility]. Treatment plan reviewed with the patient. Patient voices understanding and concurs with plan. Donna Lazaro PsyD Division of Psychiatry & Behavioral Medicine [facility] [phone] documented in this encounter Plan of Treatment Upcoming Encounters Date Type Department Care Team (Late st Contact Info) Description 01/22/2024 10:00 AM EDT Telemedicine Psychology, [facility] [address] [facility] [place] [address] Donna Lazaro PsyD [address] [facility] [place] [address] 03/31/2024 9:20 AM EDT Office Visit Neurology [facility] [address] [facility] [place] [address] Cathi Wheeler PA-C [address] [facility] [place] [address] Scheduled Procedures Name Priority Associated Diagnoses Date/Ti me COLONOSCOPY FLEXIBLE PROXIMAL DIAGNOSTIC Recall Left sided abdominal pain Thrombosis of mesenteric vein (HCC) Portal vein thrombosis ESOPHAGOGASTRODUODENOSCOPY ( EGD), FLEXIBLE, TRANSORAL, DIAGNOSTIC Recall Left sided abdominal pain Thrombosis of mesenteric vein (HCC) Portal vein thrombosis Scheduled Referrals Name Type Priority Associated Diagnoses Orde r Schedule INTENSIVE OUTPATIENT PROGRAM REFERRAL OP Referral Within 3 days (urgent) MDD (major depressive disorder), recurrent episode, moderate (HCC) PTSD (post-traumatic stress disorder) Grief Ordered: 12/27/2023 Health Maintenance Due Date Last Done Comments [...] this encounter Medical Devices Implanted Type Area School Custodian Device Identifier Shelf Expiration Date Model / Serial / Lot Screw Ti Lo Pro Sd 3mm 400.833 - [id number] Implanted:Qty: 4 on 12/28/2019 by Linden Townsend MD at [place] [facility] Right: Head [employer]ES MAXILLOF[employer]IAL 400.833 / / Description:no expiration da te - reprocessed set Screw Ti Lo Pro Sd 4mm 400.834 - [id number] Implanted:Qty: 4 on 12/28/2019 by Linden Townsend MD at [place] [facility] Right: Head [employer] 400.834 / / Description:no expiration da te - reprocessed set Plate Ti Lo Pro Str 2h 421.502 - [id number] Implanted:Qty: 4 on 12/28/2019 by Linden Townsend MD at [place] [facility] Right: Head [employer] 421.502 / / Description:no expiration da te - reprocessed set documented as of this encounter Visit Diagnoses Diagnosis MDD (major depressive disorder), recurrent episode, moderate (HCC)- Primary Major depressive disorder, recurrent episode, moderate PTSD (post-traumatic stress disorder) Posttraumatic stress disorder Grief Adjustment disorder with depressed mood documented in this encounter Advance Directives Latest [...] the patient have Health Care Power of Managing Consultant Clinical Professor? No Code Status History Code Status Date [...] the patient have Health Care Power of Managing Consultant Clinical Professor? No Full Code 12/27/2019 6:35 PM 12/28/2019 9:42 AM This or janice reflects the patients wishes and were consensually agreed upon. Question Answer Comments Discussion of Advance Directives occurred with: Not Discussed Healthcare Agents on File Name Relationship Healthcare Agent [facility] p Communication Mike Doherty Spouse Emergency Contact Care Teams Belly Dump Driver Relationship Specialty Start Date End Date Courtneynovember Dewayne, ZAYRA [address] [facility] [place] [address] PCP - General Physician Post Tronic Machine Operator 03/23/22 documented as of this encounter
--- NOTE | 2024-01-25 22:58 | Emergency Department Note ---
ED Visit Note Signed out to me by Dr. Wiley at 23:00 on 01/25/2024. Patient was a voluntary 201 admission and accepted to 3 [facility] inpatient psychiatric unit. .
--- OUTSIDE RECORDS SUMMARY | 2024-01-25 22:58 | External Medical Summary | Summary of Care ---
Author Name Unknown Organization [facility] Address [address] [facility] [place] [address] Phone [phone] Care Team Providers Care Director Of Tax Services Name Role Phone Kinsey Chaparro ZAYRA Primary Care Provider [phone] Encounter Details Date Type Department Care Team (Late st Contact Info) Description 12/16/2023 Orders Only PATIENT PORTAL DO NOT DELETE THIS DEPT USED BY [place] [id number] Allergies Active Allergy Reactions Criticality Noted Date Comments Vancomycin Itching 08/03/2019 Redness of skin documented as of this encounter (statuses as of 12/16/2023) Medications Medication Sig Dispensed Refills Start Date [...] Active Emgality 120 MG/ML Subcutaneous Solution Auto-injector ([facility]) Inject 1 mL under the [...] the morning. 84 Tablet 1 10/08/2023 Active documented as of this encounter (statuses as of 12/16/2023) Active Problems Problem Noted Date Diagnosed Date [...] of pre-eclampsia; During , please notify your sandblaster glass if you experience headache, changes in vision, [...] as of this encounter (statuses as of 12/16/2023) Resolved Problems Problem Noted Date Diagnosed Date Resolved Date Food insecurity 11/05/2022 03/07/2023 Overview: Per [facility] Protocol Opioid dependence in remission [...] and proper diet. Consider referral to a radiography technician prior to conception for maternal conditions [...] as of this encounter (statuses as of 12/16/2023) Immunizations Name Administration Dates Next Due COVID-19 [...] Description 12/17/2023 1:00 PM EDT Office Visit Family Practice [facility] [address] [place] [address] Kinsey Chaparro PA-C [address] [place] [address] 12/25/2023 11:20 AM EDT Office Visit Neurology [facility] [address] [place] [address] [address] Cathi Wheeler PA-C [facility] [place] [address] Scheduled Procedures Name Priority Associated Diagnoses Date/Ti [...] this encounter Medical Devices Implanted Type Area Laboratory Tester Device Identifier Shelf Expiration Date Model / Serial / Lot Screw Ti Lo Pro Sd 3mm 400.833 - [id number] Implanted:Qty: 4 on 12/28/2019 by Linden Townsend MD at [place] [facility] Right: Head [employer] 400.833 / / Description:no expiration da te - reprocessed set Screw Ti Lo Pro Sd 4mm 400.834 - [id number] Implanted:Qty: 4 on 12/28/2019 by Linden Townsend MD at [place] [facility] Right: Head [employer] 400.834 / / Description:no expiration da te - reprocessed set Plate Ti Lo Pro Str 2h 421.502 - [id number] Implanted:Qty: 4 on 12/28/2019 by Linden Townsend [...] the patient have Health Care Power of Gluer? No Code Status History Code Status Date [...] the patient have Health Care Power of Gluer? No Full Code 12/27/2019 6:35 PM 12/28/2019 9:42 AM This or janice reflects the patients wishes and were consensually agreed upon. Question Answer Comments Discussion of Advance Directives occurred with: Not Discussed Healthcare Agents on File Name Relationship Healthcare Agent Relationshi p Communication Mike Doherty Spouse Emergency Contact Care Teams Director Of Tax Services Relationship Specialty Start Date End Date KrystaNovember ZAYRA Buchanan [address] [place] [address] [facility] [place] [address] PCP - General Physician Cloth Finishing Range Tender 03/23/22 documented as of this encounter
--- OUTSIDE RECORDS SUMMARY | 2024-01-25 22:58 | External Medical Summary | Summary of Care ---
Author Name Unknown Organization [facility] Address [address] [place] [address] Phone [phone] Care Team Providers Care Cell Coverer Name Role Phone Kinsey Chaparro ZAYRA Primary Care Provider [phone] Encounter Details Date Type Department Care Team (Late st Contact Info) Description 12/10/2023 Result Scan Unspecified Department <No scans attached> Allergies Active Allergy Reactions Criticality Noted Date Comments Vancomycin Itching 08/03/2019 Redness of skin documented as of this encounter (statuses as of 12/12/2023) Medications Medication Sig Dispensed Refills Start Date [...] Active Emgality 120 MG/ML Subcutaneous Solution Auto-injector (Galcanezumab-[facility]) Inject 1 mL under the skin [...] as of this encounter (statuses as of 12/12/2023) Active Problems Problem Noted Date Diagnosed Date [...] of pre-eclampsia; During , please notify your safety advisor if you experience headache, changes in vision, [...] as of this encounter (statuses as of 12/12/2023) Resolved Problems Problem Noted Date Diagnosed Date Resolved Date Food insecurity 11/05/2022 03/07/2023 Overview: Per [facility] Protocol Opioid dependence in remission 05/09/2021 [...] and proper diet. Consider referral to a covering and lining supervisor prior to conception for maternal conditions that [...] as of this encounter (statuses as of 12/12/2023) Immunizations Name Administration Dates Next Due COVID-19 [...] 1:00 PM EDT Office Visit Family Practice [facility] [address] [address] Kinsey Chaparro PA-C [address] [facility] [place] [address] 12/25/2023 11:20 AM EDT Office Visit Neurology [facility] [address] [place] [address] Cathi Wheeler PA-C [address] [place] [address] Scheduled Procedures Name Priority Associated Diagnoses Date/Ti [...] this encounter Medical Devices Implanted Type Area Him Coder Device Identifier Shelf Expiration Date Model / Serial / Lot Screw Ti Lo Pro Sd 3mm 400.833 - [id number] Implanted:Qty: 4 on 12/28/2019 by Linden Townsend MD at OR [facility] [place] Right: Head [employer]ILL[employer] 400.833 / / Description:no expiration da te - reprocessed set Screw Ti Lo Pro Sd 4mm 400.834 - [id number] Implanted:Qty: 4 on 12/28/2019 by Linden Townsend MD at OR [facility] [place] Right: Head [employer] MAXILLOF[employer] 400.834 / / Description:no expiration da te - reprocessed set Plate Ti Lo Pro Str 2h 421.502 - [id number] Implanted:Qty: 4 on 12/28/2019 by Linden Townsend MD at OR [facility] [place] Right: Head [employer] 421.502 / / Description:no expiration da te - reprocessed set documented as of this encounter Procedures Procedure Name Priority Date/Time Associated Diagnosis Comments PROCEDURE SCANNED RESULT 12/10/2023 documented in this encounter Results * PROCEDURE SCANNED RESULT (12/10/2023) 12/10/2023 No Physician Data Unknown SURGERY documented in this encounter Advance Directives Latest [...] the patient have Health Care Power of Clinical Therapist? No Code Status History Code Status Date [...] the patient have Health Care Power of Clinical Therapist? No Full Code 12/27/2019 6:35 PM 12/28/2019 9:42 AM This or janice reflects the patients wishes and were consensually agreed upon. Question Answer Comments Discussion of Advance Directives occurred with: Not Discussed Healthcare Agents on File Name Relationship Healthcare Agent [facility] Communication Mike Doherty Spouse Emergency Contact Care Teams Cell Coverer Relationship Specialty Start Date End Date Krysta November ZAYRA Buchanan [address] [place] [address] PCP - General Physician Cafeteria Aide 03/23/22 documented as of this encounter
--- OUTSIDE RECORDS SUMMARY | 2024-01-25 22:58 | External Medical Summary | Summary of Care ---
Author Name Unknown Organization [facility] Address [address] [place] [address] Phone [phone] Care Team Providers Care Benefits Representative Name Role Phone Kinsey Chaparro ZAYRA Primary Care Provider [phone] Reason for Visit * Reason Onset Date Comments Mycode - Thinking About It But No Form Provided 12/17/2023 Encounter Details Date Type Department Care Team (Late st Contact Info) Description 12/17/2023 Orders Only Outcomes Research Department [address], [place] [id number] Catherine Alonso CHRA MyCode Nonconsent Documentation Allergies Active Allergy Reactions Criticality Noted Date [...] Active Emgality 120 MG/ML Subcutaneous Solution Auto-injector (Galcanezumab-[facility]) Inject 1 mL under the [...] Schizoaffective disorder, depressive type 2020 Overview: Per [facility] 11/09/20. PTSD (post-traumatic stress disorder) 12/21/2020 Overview: Per [facility] 11/09/20. Borderline personality disorder 12/21/2020 Overview: Per [facility] 11/09/20. Asplenia 12/14/2020 Hyperprolactinemia 08/25/2020 Migraine without [...] of pre-eclampsia; During , please notify your wrong address clerk if you experience headache, changes in vision, [...] Date Food insecurity 11/05/2022 03/07/2023 Overview: Per [facility] Protocol Opioid dependence in remission 05/09/2021 [...] and proper diet. Consider referral to a wagon driller prior to conception for maternal conditions that [...] as of this encounter Progress Notes * Catherine Alonso CHRA - 12/17/2023 2:23 PM EDT MyCode Nonconsent Documentation Delfina Doherty was approached in the clinic regarding participation in the MyCode Project and did not consent. documented in this encounter Plan of Treatment Upcoming Encounters Date Type Department Care Team (Late st Contact Info) Description 12/25/2023 11:20 AM EDT Office Visit Neurology [facility] [address] [place] [address] Cathi Wheeler PA-C [address] [place] [address] Scheduled Procedures Name Priority Associated Diagnoses Date/Ti [...] this encounter Medical Devices Implanted Type Area Rn Plastics Device Identifier Shelf Expiration Date Model / Serial / Lot Screw Ti Lo Pro Sd 3mm 400.833 - [id number] Implanted:Qty: 4 on 12/28/2019 [place] Town[place] [facility] [place] Head [employer] 400.833 / / Description:no expiration da te - reprocessed set Screw Ti Lo Pro Sd 4mm 400.834 - [id number] Implanted:Qty: 4 on 12/28/2019 by Linden Townsend [place] [facility] [place] Head [employer] 400.834 / / Description:no expiration da te - reprocessed set Plate Ti Lo Pro Str 2h 421.502 - [id number] Implanted:Qty: 4 on 12/28/2019 by Linden Townsend [place] [facility] [place] Head [employer] 421.502 / / [...] the patient have Health Care Power of Radio Personality? No Code Status History Code Status Date [...] the patient have Health Care Power of Radio Personality? No Full Code 12/27/2019 6:35 PM 12/28/2019 9:42 AM This or janice reflects the patients wishes and were consensually agreed upon. Question Answer Comments Discussion of Advance Directives occurred with: Not Discussed Healthcare Agents on File Name Relationship Healthcare Agent Relationshi p Communication Mike Doherty Spouse Emergency Contact Care Teams Benefits Representative Relationship Specialty Start Date End Date KrystaNovember Dewayne, PA-C [address] [facility] [place] [address] PCP - General Physician Hospital Secretary 03/23/22 documented as of this encounter
--- OUTSIDE RECORDS SUMMARY | 2024-01-25 22:58 | External Medical Summary | Summary of Care ---
Author Name Unknown Organization [facility] Address [address] [place] [facility] [place] [place] [address] Phone [phone] Care Team Providers Care Nascar Racer Name Role Phone Kinsey Chaparro ZAYRA Primary Care Provider [phone] Reason for Visit * Reason Onset Date Comments Hospital Follow-Up 12/12/2023 ZACHERY Encounter Details Date Type Department Care Team (Late st Contact Info) Description 12/12/2023 Telephone Ancillary [facility] [address] [place] [address] Nina Orozco, CYNDI Hospital Follow-Up (ZACHERY) Allergies Active Allergy Reactions Criticality Noted Date [...] Active Emgality 120 MG/ML Subcutaneous Solution Auto-injector (Galcanezumab-gn) Inject 1 mL under the skin Every [...] of pre-eclampsia; During , please notify your puttying and calking supervisor if you experience headache, changes in vision, [...] Date Food insecurity 11/05/2022 03/07/2023 Overview: Per [facility] Protocol Opioid dependence in remission [...] and proper diet. Consider referral to a staffing mgr prior to conception for maternal conditions that [...] encounter Miscellaneous Notes * Telephone Encounter - Nina Orozco RN - 12/12/2023 9:15 AM EDT Images from the original note were not included. Transitions of Care Note Reason for Referral:Recent Admission Phone visit for follow up: ZACHERY Admitted to: [facility], Date: 12/09 Discharged to: Home self care, Date: 12/10 Diagnosis driving hospitalization: Seizure like activity Source/Contact: Patient SUBJECTIVE Consent: Verbal consent for review of hospital discharge: Yes REVIEW OF SYSTEMS Patient/Other Reports: Current patient/caregiver problems or concerns: feeling, "alright" CV: Denies problems Pulmonary: Denies problems Chills/Sweats/Fever:Denies chills/sweats Denies fever Appetite:Denies problems such as nausea, vomiting, burning, decreased appetite Current diet: regular Bowel: denies problems Bladder: denies problems Wound (If applicable): N/A Pain:Denies Sleep:Denies problems FUNCTIONAL STATUS: ADL'S: Needs Assistance With:N/A as pt is independent IADL'S: Needs Assistance With:N/A as pt is independent Cognitive and Mental Health: denies problems, alert and oriented x 3, and able to communicate, understand instructions, process information. MEDICATION RECONCILIATION Medications: Discharge med list reviewed with patient or caregiver New medication(s) filled since hospitalization- see below Discontinued medication(s) since hospitalization- see below Pharmacy did not have lacosamide in stock yesterday. Should have after 2 today ASSESSMENT Medication Risk Assessment: Pharmacy did not have Lacosamide yesterday, should have today. Did patient fail outpatient treatment? No Discharge instructions available for review? Yes PLAN Symptom Monitoring Interventions:Member/caregiver education - signs and symptoms to contact PrimaryCare (DO NOT DELETE-Three borges symptoms patient is to report to PCP) 1. Fever 2. Cough, SOB, Wheezing 3. seizures Department HeadGame Attendant of Care interventions/Action Plan: Medication reconciliation and 5 - 7 day follow-up with PCP in place - Date: Kinsey ZAYRA Chaparro 12/16, Dr. Wheeler December 24 Educated on role of ZACHERY completed with patient/caregiver. Educated patient/caregiver on patient right to have input on ZACHERY plan of care. Verification of Home Health/DME if indicated: NO n/a Identified Care Gaps: Yes Care Gaps closed this call: Appointment made or confirmed and Transition of Care follow-up communication Re-evaluation of Plan of Care and progress towards goals achievement: Patient education this visit: Verbal, Reinforced no driving, no swimming alone, no baths until seen by neurology Plan to discharge needs met, verbalizes understanding and agrees with plan. Nina Castillo, RN documented in this encounter Plan of Treatment Upcoming Encounters Date Type Department Care Team (Late st Contact Info) Description 12/17/2023 1:00 PM EDT Office Visit Family Practice [facility] [place] [address] [address] Kinsey Chaparro PA-C [address] [place] [address] [address] [address] 12/25/2023 11:20 AM EDT Office Visit Neurology [place] [place] [address] [place] [address] Cathi Wheeler PA-C [address] [place] [address] [address] Scheduled Orders Name Type Priority Associated Diagnoses Orde r Schedule CBC WITH WBC DIFFERENTIAL Lab Routine Hospital discharge follow-up Expected: 12/12/2023 (Approximate), Expires: 12/11/2024 COMPREHENSIVE METABOLIC PANEL Lab Routine Hospital discharge follow-up Expected: 12/12/2023 (Approximate), Expires: 12/11/2024 MAGNESIUM Lab Routine Hospital discharge follow-up Expected: 12/12/2023 (Approximate), Expires: 12/11/2024 PHOSPHORUS Lab Routine Hospital discharge follow-up Expected: 12/12/2023 (Approximate), Expires: 12/11/2024 Scheduled Procedures Name Priority Associated Diagnoses Date/Ti [...] this encounter Medical Devices Implanted Type Area Corporate Development Intern Device Identifier Shelf Expiration Date Model / Serial / Lot Screw Ti Lo Pro Sd 3mm 400.833 - [id number] Implanted:Qty: 4 on 12/28/2019 by Linden Townsend MD at OR [facility] [place] Right: Head [employer] 400.833 / / Description:no expiration da te - reprocessed set Screw Ti Lo Pro Sd 4mm 400.834 - [id number] Implanted:Qty: 4 on 12/28/2019 by Linden Townsend MD at [place] [facility] [place] Right: Head [employer] 400.834 / / Description:no expiration da te - reprocessed set Plate Ti Lo Pro Str 2h 421.502 - [id number] Implanted:Qty: 4 on 12/28/2019 by Linden Townsend MD at [place] [facility] [place] Right: Head [employer] MAXILLOF[employer] 421.502 / / Description:no expiration da te - reprocessed set documented as of this encounter Visit Diagnoses Diagnosis Hospital discharge follow-up- Primary Other follow-up examination documented in this encounter Advance Directives Latest [...] the patient have Health Care Power of Embedded Processor? No Code Status History Code Status Date [...] the patient have Health Care Power of Embedded Processor? No Full Code 12/27/2019 6:35 PM 12/28/2019 9:42 AM This or janice reflects the patients wishes and were consensually agreed upon. Question Answer Comments Discussion of Advance Directives occurred with: Not Discussed Healthcare Agents on File Name Relationship Healthcare Agent [facility] Communication Mike Doherty Spouse Emergency Contact Care Teams Nascar Racer Relationship Specialty Start Date End Date Courtneynovember Dewayne, ZAYRA [address] [place] [address] PCP - General Physician Regulatory Affairs Associate 03/23/22 documented as of this encounter
[2024-01-25] MEDS ORDERED: hydrOXYzine HCl 25 MG TAB PO PRN ×2 (23:39)
[2024-01-25] MEDS ORDERED: BISMUTH SUBSALICYLATE LIQD 236 ML PO PRN (23:39)
[2024-01-25] MEDS ORDERED: SODIUM CHLORIDE 0.65% NA SOLN 45 ML (OCEAN) PRN (23:39)
[2024-01-25] MEDS ORDERED: MAGNESIUM HYDROXIDE SUSP 30 ML UDC PO PRN (23:39)
[2024-01-25] MEDS ORDERED: ACETAMINOPHEN 325 MG TAB PO PRN (23:39)
[2024-01-25] MEDS ORDERED: ALUMINUM/MAGNESIUM SUSP 30 ML UDC PO PRN (23:39)
[2024-01-26] MEDS: GABAPENTIN 300 MG CAP PO STA (00:41)
[2024-01-26] MEDS: LITHIUM CARBONATE 300 MG TAB PO STA (00:42)
[2024-01-26] MEDS: LACOSAMIDE 50 MG TABLET PO STA (00:42)
[2024-01-26] MEDS ORDERED: LITHIUM CARBONATE 300 MG TAB PO SCH (09:00)
[2024-01-26] MEDS: PANTOprazole 40 MG TAB PO SCH (10:05)
[2024-01-26] MEDS: FAMOTIDINE 20 MG TAB PO SCH (10:05)
[2024-01-26] MEDS: APIXABAN 5 MG TABLET PO SCH (10:05)
[2024-01-26] MEDS: GABAPENTIN 300 MG CAP PO SCH (10:05)
[2024-01-26] MEDS: LEVOTHYROXINE SODIUM 50 MCG TABLET PO SCH (10:06)
[2024-01-26] MEDS: PROPRANOLOL HCL 20 MG TAB PO SCH (10:06)
[2024-01-26] MEDS: NALTREXONE HCL 50 MG TAB PO SCH (10:06)
[2024-01-26] MEDS: haloperidoL 5 MG TAB PO SCH (10:13)
[2024-01-26] MEDS: LITHIUM CARBONATE 300 MG TAB PO SCH ×2 (10:13→20:51)
[2024-01-26] MEDS: LACOSAMIDE 50 MG TABLET PO SCH (10:23)
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
[2024-01-26] MEDS: hydrOXYzine HCl 25 MG TAB PO PRN (16:23)
[2024-01-26] MEDS: DOXEPIN HCL 25 MG CAPSULE PO SCH (20:50)
[2024-01-27] MEDS: LITHIUM CARBONATE 300 MG TAB PO SCH (08:41)
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
[2024-01-27] MEDS: LORazepam 0.5 MG TAB PO PRN (14:04)
--- NOTE | 2024-01-28 12:17 | Psychiatric Progress Note ---
Date of Service January 28, 2024 Impression / Recommendations Impression 01/28/24: Went through distress tolerance skill handout with the patient. Discussed coping strategies for crisis situations. Recommend regular outpatient counseling or IOP and working with SW to attain resources. Overall, I spent a total of 30 minutes with this case including review of chart records, nursing report, direct evaluation of the patient at bedside, counseling the patient, multidisciplinary team meeting, orders, and documentation in the electronic health record. (1) Borderline personality disorder: (2) MDD (major depressive disorder), recurrent, in partial remission: (3) Suicidal ideation: intermittent (4) Asplenia: Plan 01/28/24: Continue treatment and plan. 01/27/24: Start Lorazepam 0.5mg Q6H prn for anxiety. Pt encouraged to utilize coping skills. Would likely benefit from IOP. 01/26/24: Plan to decrease lithium to 300 mg every morning and 600 mg at bedtime due to high normal lithium level (1.2). Decrease Haldol to 10 mg twice daily due to concerns of EPS and limited benefit; this was her previous dose from last hospitalization. Continue other home medications. Would likely benefit from IOP. Inventory Assets Strengths: stable supports, housing Needs: therapy, emotional regulation Suicide Risk Level Suicide Risk Level: Moderate (q15 min suicide checks) Suicide Risk Level Comments: H/o suicidal ideation, recent plan. Future oriented. Has intact reality testing. Risk Factors Assessment Male: No : No Do You Have Access To A Gun?: No Health Problems: Yes Mental Health Diagnoses: Yes Substance Use Disorders: No Previous Attempt: Yes Family History of Suicide: No Previous Psychiatric Hospitalization: Yes Hopelessness: No Protective Factors Assessment Latter-Day Beliefs: Yes : Yes Responsible for Young Children: No Employed: No (disabled) Stable Relationships: Yes Supportive Family: Yes Good Rapport with Provider: Yes Absence of Any Risk Factors Above: No Interval History Chief Complaint "[]". Review of Systems Sleep Information Total Hours of Sleep: 6 Sleep Comments: Admitted early in shift Meal Information Percent Meal Consumed - Breakfast: 100 Percent Meal Consumed - Lunch: 90 Percent Meal Consumed - Dinner: 100 Subjective Subjective Patient was seen & assessed and interval progress reviewed with treatment team nursing and social work Overnight no acute events. Patient took Ativan and Vistaril as needed. On interview patient reports sleeping well. Continues to complain of "voices". Reports they have been going on since 15 years of age and the voice is of someone she is not familiar with or has met with in the past. She reports having suicidal ideation at times secondary to distress about the voices and wanting it to end. She denies current suicidal ideation. Reports having a good morning and was seen in the day room interacting with her peers and playing video games. No other concerns presented today. Physical Exam Mental Examination Appearance: Well Groomed Eye Contact: Maintains Eye Contact Motor Behavior: Unremarkable Speech: Soft Mood: Calm Affect: Constricted Thought Process: Intact and [place] Insight: Poor Judgement: Fair Vital Signs (Past 24 Hours) Last Vital Signs Temp 36.9 C 01/28/24 06:25 Pulse 75 01/28/24 06:25 Resp 16 01/28/24 06:25 BP 97/63 L 01/28/24 06:25 Pulse Ox 98 01/26/24 01:17 O2 Del Method Room Air 01/26/24 01:17 Results & Data ([facility]) Current Inpatient Medications Current Inpatient Medications: Current Inpatient Medications Acetaminophen (Acetaminophen 325 Mg Tab) 650 mg PO Q4H PRN PRN Reason: Headache or Minor Fever Stop: 02/24/24 23:38 Al Hydrox/Mg Hydrox/Simethicone (Aluminum/Magnesium Susp 30 Ml Udc) 30 ml PO Q4H PRN PRN Reason: GI Upset Stop: 02/24/24 23:38 Apixaban (Apixaban 5 Mg Tablet) 5 mg PO AMHS RENU Stop: 02/25/24 08:59 Last Admin: 01/28/24 08:44 Dose: 5 mg Bismuth Subsalicylate (Bismuth Subsalicylate Liqd 236 Ml) 15 ml PO PRN PRN PRN Reason: Loose Stool Stop: 02/24/24 23:38 Doxepin HCl (Doxepin Hcl 25 Mg Capsule) 25 mg PO HS RENU Stop: 02/25/24 21:59 Last Admin: 01/27/24 21:31 Dose: 25 mg Famotidine (Famotidine 20 Mg Tab) 20 mg PO BID RENU Stop: 02/25/24 08:59 Last Admin: 01/28/24 08:44 Dose: 20 mg Gabapentin (Gabapentin 300 Mg Cap) 300 mg PO TID RENU Stop: 02/25/24 08:59 Last Admin: 01/28/24 08:44 Dose: 300 mg Haloperidol (Haloperidol 5 Mg Tab) 10 mg PO BID RENU Stop: 02/25/24 08:59 Last Admin: 01/28/24 08:43 Dose: 10 mg Hydroxyzine HCl (Hydroxyzine Hcl 25 Mg Tab) 50 mg PO HSZ PRN PRN Reason: Insomnia Stop: 02/24/24 23:38 Hydroxyzine HCl (Hydroxyzine Hcl 25 Mg Tab) 50 mg PO Q4H PRN PRN Reason: Anxiety Stop: 02/24/24 23:38 Last Admin: 01/27/24 18:23 Dose: 50 mg Lacosamide (Lacosamide 50 Mg Tablet) 100 mg PO BID RENU Stop: 02/25/24 08:59 Last Admin: 01/28/24 09:41 Dose: 100 mg Levothyroxine Sodium (Levothyroxine Sodium 50 Mcg Tablet) 50 mcg PO DAILYBB RENU Stop: 02/25/24 08:59 Last Admin: 01/28/24 08:45 Dose: 50 mcg [place] Carbonate ([place] Carbonate 300 Mg Tab) 600 mg PO HS RENU Stop: 02/25/24 21:59 Last Admin: 01/27/24 21:31 Dose: 600 mg [place] Carbonate ([place] Carbonate 300 Mg Tab) 300 mg PO DAILY RENU Stop: 02/26/24 08:59 Last Admin: 01/28/24 08:44 Dose: 300 mg Lorazepam (Lorazepam 0.5 Mg Tab) 0.5 mg PO Q6H PRN PRN Reason: Anxiety Stop: 02/26/24 11:19 Last Admin: 01/27/24 14:04 Dose: 0.5 mg Magnesium Hydroxide (Magnesium Hydroxide Susp 30 Ml Udc) 30 ml PO DAILY PRN PRN Reason: Constipation Stop: 02/24/24 23:38 Miscellaneous (* Control*Order Awaiting Action) 1 each N/A QS [facility] Stop: 02/25/24 15:59 Last Admin: 01/28/24 08:46 Dose: Not Given Naltrexone HCl (Naltrexone Hcl 50 Mg Tab) 50 mg PO DAILY RENU Stop: 02/25/24 08:59 Last Admin: 01/28/24 08:43 Dose: 50 mg Pantoprazole Sodium (Pantoprazole 40 Mg Tab) 40 mg PO QAM RENU Stop: 02/25/24 08:59 Last Admin: 01/28/24 08:44 Dose: 40 mg Propranolol HCl (Propranolol Hcl 20 Mg Tab) 40 mg PO BID RENU Stop: 02/25/24 08:59 Last Admin: 01/28/24 08:48 Dose: Not Given Sodium Chloride (Sodium Chloride 0.65% Na Soln 45 Ml (Amelia)) 1 - 2 sprays NA PRN PRN PRN Reason: Nasal Dryness/Congestion Stop: 02/24/24 23:38 Mental Health & Subst Abuse Tx Therapist Name of Therapist: Patient does not have one Mellowing Machine Operator Name of Mellowing Machine Operator: Billy Smith Date of Appointment with Mellowing Machine Operator: 01/26/24 Post Discharge Appointments Primary Care Physician Name Of Family Doctor/PCP: Kinsey Krysta Mac
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
== END 2024-01-29 12:22 | disposition home or self-care (01) | DRG 885 ==
LOC: ED 17:15 → 3S 23:03

== ENCOUNTER 2024-03-03 10:34 | Inpatient (IN) ==
--- NOTE | 2024-03-03 11:11 | Emergency Department Note ---
Impression & Plan Suicidal thoughts ED Provider Note Provider: Murali Taylor MD DATE OF SERVICE: 03/03/2024 CHIEF COMPLAINT: Suicidal thoughts HISTORY OF PRESENT ILLNESS: Patient is a 23-year-old female past medical history of depression and personality disorder as well as seizures, mesenteric vein thrombus, and moyamoya presenting here today For family coming for evaluation of worsening suicidal ideation. States over the last 2 to 3 days she has had worsening thoughts of this. States he is having thoughts of wanting to cut her wrist. States she did not try to hurt herself at this time. Was inpatient last month. States she has continued but not worsened auditory hallucinations. Denies wanting to harm anyone else. States he is not sleeping well last couple days but does states has been taking her home medications. No drug or alcohol issues reported. Reports a history in the past of suicide attempts. Patient did report to triage staff she had thought of overdosing on her medications as well today. PAST MEDICAL HISTORY: As noted above MEDICATIONS: Reviewed home medications states she did take this this morning SOCIAL HISTORY: Lives at home with family and PHYSICAL EXAM: GENERAL: alert and oriented in no acute distress supine on bed resting easily arousable to verbal stimuli Head: normocephalic and atraumatic EYES: No injection, discharge or icterus. EOMI. NECK: Trachea midline. Supple. ENT: Mucous membranes pink and moist. LUNGS: Airway patent. No retractions. Breath sounds clear with good air entry bilaterally. HEART: Regular rate and rhythm. SKIN: Acyanotic, warm, dry, without rashes EXTREMITIES: Without swelling, tenderness or deformity in particular without evidence of injury to the wrist. NEUROLOGICAL: No focal deficits. No aphasia. No facial droop or slurred speech. Ambulatory. Psych: Flattened affect. Reports auditory loose knees but not responding to external stimuli. Denies HI. Reports thoughts of SI wanting to slit her wrists. Worse in the last several days. Patient's laboratory studies reviewed. Differential includes Mood disorder, infection, hypoglycemia, electrolyte abnormalities, cardiac sources, intracerebral event, toxicologic, trauma, neurologic, as well as other pathologies. IMPRESSION/MEDICAL DECISION MAKING: Patient without complaint of pain, trouble breathing, syncope, or fever. Reports worsening suicidal ideation last several days with extensive past psychiatric history. States medication compliance. Seen with manager of case. Wishing for voluntary inpatient treatment giving the suicidal thoughts and basic blood work was obtained for this. Does not appear to be an extremis and physical exam is generally unremarkable for acute abnormalities. Basic blood work returns without significant abnormalities. Mild chronic leukocytosis and I doubt infectious etiology at this time. Case management further assessed and referral for inpatient treatment for SI was completed on a voluntary basis. 3 S. evaluated accepted her there on a 201 for further inpatient care. DIAGNOSIS: Suicidal thoughts DISPOSITION: 3 S. for further inpatient care Past Med/Surg History Problem List (Updated 03/03/24 @ 13:08 by Murali Taylor M.D.) Suicidal thoughts (Acute) MDD (major depressive disorder), recurrent, in partial remission Borderline personality disorder Asplenia (Acute) Medical History Auditory hallucinations Spherocytosis Involuntary commitment Depression with suicidal ideation MDD (major depressive disorder), recurrent, severe, with psychosis Depression with suicidal ideation Eating disorder, unspecified Suicidal ideation Major depressive disorder with psychotic features Major depression Thrombocytosis Intermittent asthma 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 Surgical History History of splenectomy Family History Denies family history of Coronary heart disease Social History Smoking Status: Never smoker Second Hand Exposure: No; Do You Dip or Chew Tobacco: No; Hx Alcohol Use: No Hx Substance Use: No Preferred Language: Indian Communication Ability: Effective Catalyst Impregnator Required: No Beliefs That Will Affect Care: None marital status: Current Living Situation: Spouse and Family How many Children do You have: 0 Feels Safe at Home: Yes Gender Identity: Female Assistive Devices: Glasses Allergies Allergies Allergy/AdvReac Type Severity Reaction Status Date / Time vancomycin Allergy Intermediate Red/Itchy Verified 12/09/23 20:24 skin Home Meds Home Medications Medication Instructions Recorded Confirmed apixaban 5 mg tablet (Eliquis) 5 mg PO AMHS 07/27/22 03/03/24 propranolol 40 mg tablet 40 mg PO BID 07/27/22 03/03/24 famotidine 20 mg tablet 20 mg PO BID 10/13/22 03/03/24 omeprazole 40 mg capsule,delayed 40 mg PO QAM 01/23/23 03/03/24 release levothyroxine 50 mcg tablet 50 mcg PO DAILY 04/08/23 03/03/24 doxepin 25 mg capsule 25 mg PO HS 08/30/23 03/03/24 naltrexone 50 mg tablet 50 mg PO DAILY 08/30/23 03/03/24 gabapentin 300 mg capsule 300 mg PO TID 12/09/23 03/03/24 Previous Rx's Medication Instructions Recorded lacosamide 50 mg tablet (Vimpat) 100 mg (2 x 50 mg) PO BID #120 tabs 12/11/23 haloperidol 5 mg tablet 10 mg (2 x 5 mg) PO BID #120 tabs 01/29/24 hydroxyzine HCl 50 mg tablet 50 mg PO HSZ PRN insomnia #30 tabs 01/29/24 lithium carbonate 300 mg capsule 300 mg PO DAILY #30 caps 01/29/24 lithium carbonate 600 mg capsule 600 mg PO HS #30 caps 01/29/24 lorazepam 0.5 mg tablet 0.5 mg PO Q6H PRN anxiety #15 tabs 01/29/24 Results & Data (ED) Vital Signs Vital Signs - 24 hr 03/03/24 10:34 Temperature 36.6 C Temperature Source Temporal Artery Scan Pulse Rate 67 Respiratory Rate 18 Blood Pressure 97/70 L Blood Pressure Mean 79 Pulse Oximetry 96 Sepsis Recent Fever Within 48 Hours No Sepsis New/Unexplained Change in Mental Status N/A Sepsis Action Taken by Nursing No Action Required Laboratory Data 03/03/24 11:49 03/03/24 11:19 Lab Results 03/03/24 03/03/24 03/03/24 Range/Units 10:50 11:11 11:19 WBC (4.8-10.8) K/ul RBC (4.20-5.40) M/uL Hgb (12.0-16.0) g/dl Hct (37.0-47.0) % MCV (80.0-100.0) fL MCH (25.0-34.0) pg MCHC (32.0-36.0) g/dL RDW Std Deviation (36.4-46.3) fL RDW Coeff of Toni (11.5-14.5) % Plt Count (130-400) K/uL MPV (9.4-12.4) fL Immature Gran % (Auto) % Neut % (Auto) % Lymph % (Auto) % [place] % (Auto) % Eos % (Auto) % Baso % (Auto) % Neut # (Auto) (1.40-6.50) K/uL Lymph # (Auto) (1.20-3.40) K/uL [place] # (Auto) (0.11-0.59) K/uL Eos # (Auto) (0.00-0.50) K/uL Baso # (Auto) (0.00-0.20) K/uL Immature Gran # (Auto) (0.01-0.20) K/uL Sodium 137 (136-145) mmol/L Potassium 4.2 (3.5-5.1) mmol/L Chloride 107 (98-107) mmol/L Carbon Dioxide 25 (21-32) mmol/L Anion Gap 5 (3-11) BUN 10 (6-23) mg/dl Creatinine 0.82 (0.6-1.2) mg/dl Est Cr Clr Drug Dosing 102.1 ml/min Est GFR ( Amer) 115.3 ml/min Est GFR (Non-Af Amer) 99.5 ml/min BUN/Creatinine Ratio 12.2 (10-20) Glucose 95 (70-99(Fasting)) mg/dl Calcium 9.5 (8.6-10.3) mg/dl Total Bilirubin 0.8 (0.2-1.0) mg/dl AST 23 (13-39) U/L ALT 29 (7-52) U/L Alkaline Phosphatase 91 (34-104) U/L Total Protein 6.8 (6.0-8.3) gm/dl Albumin 4.2 (3.4-5.0) gm/dl Globulin 2.6 (2.5-4.0) gm/dl Albumin/Globulin Ratio 1.6 (0.9-2) TSH 1.945 (0.300-4.500) uIu/ml HCG, Qual Negative (Negative) Urine Color Yellow Urine Appearance Cloudy A (Clear) Urine pH 8.0 H (4.5-7.5) Ur Specific [place] 1.009 (1.000-1.030) Urine Protein Negative (Negative) Urine Glucose (UA) Negative (Negative) Urine Ketones Negative (Negative) Urine Blood Negative (Negative) Urine Nitrite Negative (Negative) Urine Bilirubin Negative (Negative) Urine Urobilinogen Negative (Negative) Ur Leukocyte Esterase Trace H (Negative) Urine WBC (Auto) 0-5 (0-5) /hpf Urine RBC (Auto) 0-2 (0-2) /hpf U Hyaline Cast (Auto) 0-2 (0-2) /lpf U Epithel Cells (Auto) 3-5 H (0-2) /hpf Urine Bacteria (Auto) None Seen (None Seen) Salicylates < 3.0 L (3.0-30) mg/dl Urine Opiates Screen Neg (Neg) Ur Methadone, Qual Neg (Neg) Urine Fentanyl Screen Neg (Neg) Acetaminophen < 3 L (10-30) ug/ml Urine Barbiturates Neg (Neg) Ur Phencyclidine (PCP) Neg (Neg) U Amphetamin/Meth Scrn Neg (Neg) MDMA (Ecstasy) Screen Neg (Neg) U Benzodiazepines Scrn Neg (Neg) [place] 1.1 (0.6-1.2) mmol/L Ur Cocaine Metabolite Neg (Neg) U Marijuana (THC) Screen Neg (Neg) Ethyl Alcohol mg/dL < 10.0 (<10.0) mg/dl SARS-CoV-2, RNA, NAAT NEGATIVE (NEGATIVE) 03/03/24 Range/Units 11:49 WBC 11.48 H (4.8-10.8) K/ul RBC 4.45 (4.20-5.40) M/uL Hgb 13.6 (12.0-16.0) g/dl Hct 39.9 (37.0-47.0) % MCV 89.7 (80.0-100.0) fL MCH 30.6 (25.0-34.0) pg MCHC 34.1 (32.0-36.0) g/dL RDW Std Deviation 41.7 (36.4-46.3) fL RDW Coeff of Toni 12.6 (11.5-14.5) % Plt Count 695 H (130-400) K/uL MPV 9.1 L (9.4-12.4) fL Immature Gran % (Auto) 0.2 % Neut % (Auto) 62.8 % Lymph % (Auto) 25.1 % [place] % (Auto) 9.1 % Eos % (Auto) 1.9 % Baso % (Auto) 0.9 % Neut # (Auto) 7.21 H (1.40-6.50) K/uL Lymph # (Auto) 2.88 (1.20-3.40) K/uL [place] # (Auto) 1.05 H (0.11-0.59) K/uL Eos # (Auto) 0.22 (0.00-0.50) K/uL Baso # (Auto) 0.10 (0.00-0.20) K/uL Immature Gran # (Auto) 0.02 (0.01-0.20) K/uL Sodium (136-145) mmol/L Potassium (3.5-5.1) mmol/L Chloride (98-107) mmol/L Carbon Dioxide (21-32) mmol/L Anion Gap (3-11) BUN (6-23) mg/dl Creatinine (0.6-1.2) mg/dl Est Cr Clr Drug Dosing ml/min Est GFR ( Amer) ml/min Est GFR (Non-Af Amer) ml/min BUN/Creatinine Ratio (10-20) Glucose (70-99(Fasting)) mg/dl Calcium (8.6-10.3) mg/dl Total Bilirubin (0.2-1.0) mg/dl AST (13-39) U/L ALT (7-52) U/L Alkaline Phosphatase (34-104) U/L Total Protein (6.0-8.3) gm/dl Albumin (3.4-5.0) gm/dl Globulin (2.5-4.0) gm/dl Albumin/Globulin Ratio (0.9-2) TSH (0.300-4.500) uIu/ml HCG, Qual (Negative) Urine Color Urine Appearance (Clear) Urine pH (4.5-7.5) Ur Specific [place] (1.000-1.030) Urine Protein (Negative) Urine Glucose (UA) (Negative) Urine Ketones (Negative) Urine Blood (Negative) Urine Nitrite (Negative) Urine Bilirubin (Negative) Urine Urobilinogen (Negative) Ur Leukocyte Esterase (Negative) Urine WBC (Auto) (0-5) /hpf Urine RBC (Auto) (0-2) /hpf U Hyaline Cast (Auto) (0-2) /lpf U Epithel Cells (Auto) (0-2) /hpf Urine Bacteria (Auto) (None Seen) Salicylates (3.0-30) mg/dl Urine Opiates Screen (Neg) Ur Methadone, Qual (Neg) Urine Fentanyl Screen (Neg) Acetaminophen (10-30) ug/ml Urine Barbiturates (Neg) Ur Phencyclidine (PCP) (Neg) U Amphetamin/Meth Scrn (Neg) MDMA (Ecstasy) Screen (Neg) U Benzodiazepines Scrn (Neg) [place] (0.6-1.2) mmol/L Ur Cocaine Metabolite (Neg) U Marijuana (THC) Screen (Neg) Ethyl Alcohol mg/dL (<10.0) mg/dl SARS-CoV-2, RNA, NAAT (NEGATIVE) Discharge Plan Visit Data Chief Complaint: Mental Health Evaluation Stated Complaint: MHE ED Provider: Murali Taylor Discharge Problem: Suicidal thoughts Patient Disposition: Admitted As Inpatient Discharge Instructions Interventions: ED Discharge Assessment Last Done: 03/03/24 12:58
[2024-03-03 11:28] LABS: Appearance Urine Cloudy (Clear); Bacteria Urine Automated None Seen (None Seen); Bilirubin Urine Negative (Negative); Blood Urine Negative (Negative); Cast Urine Automated 0-2 /lpf (0-2); Color Urine Yellow; Glucose Urine UA Negative (Negative); Ketones Urine Negative (Negative); Leukocyte Esterase Urine Trace (Negative); Nitrite Urine Negative (Negative); Protein Urine Negative (Negative); RBC Urine Automated 0-2 /hpf (0-2); Specific Gravity Urine 1.009 (1.000-1.030); Urobilinogen Urine Negative (Negative); WBC Urine Automated 0-5 /hpf (0-5)
[2024-03-03 11:56] LABS: Lithium 1.1 mmol/L (0.6-1.2)
[2024-03-03 12:01] LABS: Acetaminophen < 3 ug/ml (10-30); Salicylate < 3.0 mg/dl (3.0-30)
[2024-03-03 12:07] LABS: Pregnancy Test, Serum Negative (Negative)
[2024-03-03 12:14] LABS: Albumin Globulin Ratio 1.6 (0.9-2); Albumin Level 4.2 gm/dl (3.4-5.0); BUN Creatinine Ratio 12.2 (10-20); Bilirubin,Total 0.8 mg/dl (0.2-1.0); Calcium 9.5 mg/dl (8.6-10.3); Creatinine Clr Calc Pharmacy 102.1 ml/min; Est GFR (African American) 115.3 ml/min; Est GFR (Non-African American) 99.5 ml/min; Globulin 2.6 gm/dl (2.5-4.0); Potassium 4.2 mmol/L (3.5-5.1); Total Protein 6.8 gm/dl (6.0-8.3)
[2024-03-03 12:19] LABS: Amphetamines+Metham, Urine Neg (Neg); Barbiturates, Urine Neg (Neg); Benzodiazepine, Urine Neg (Neg); Cocaine, Urine Neg (Neg); Fentanyl, Urine Neg (Neg); MDMA (Ecstacy), Urine Neg (Neg); Marijuana, Urine Neg (Neg); Methadone, Urine Neg (Neg); Opiate, Urine Neg (Neg); Phencyclidine, Urine Neg (Neg)
[2024-03-03 12:26] LABS: Basophils % (auto) 0.9 %; Eosinophils # (auto) 0.22 K/uL (0.00-0.50); Eosinophils % (auto) 1.9 %; Hematocrit (blood only) 39.9 % (37.0-47.0); Hemoglobin 13.6 g/dl (12.0-16.0); Immature Granulocytes # (auto) 0.02 K/uL (0.01-0.20); Immature Granulocytes % (auto) 0.2 %; Lymphocytes # (auto) 2.88 K/uL (1.20-3.40); Lymphocytes % (auto) 25.1 %; Mean Corpuscular Hemoglobin 30.6 pg (25.0-34.0); Mean Corpuscular Hgb Conc 34.1 g/dL (32.0-36.0); Mean Corpuscular Volume 89.7 fL (80.0-100.0); Mean Platelet Volume 9.1 fL (9.4-12.4); Monocytes # (auto) 1.05 K/uL (0.11-0.59); Monocytes % (auto) 9.1 %; Neutrophils # (auto) 7.21 K/uL (1.40-6.50); Neutrophils % (auto) 62.8 %; Platelet Count 695 K/uL (130-400); RDW Coefficient of Variation 12.6 % (11.5-14.5); RDW Standard Deviation 41.7 fL (36.4-46.3); Red Blood Count 4.45 M/uL (4.20-5.40); White Blood Count 11.48 K/ul (4.8-10.8)
[2024-03-03 12:27] LABS: Thyroid Stimulating Hormone 1.945 uIu/ml (0.300-4.500)
[2024-03-03] MEDS ORDERED: hydrOXYzine HCl 25 MG TAB PO PRN ×2 (12:45)
[2024-03-03] MEDS ORDERED: BISMUTH SUBSALICYLATE LIQD 236 ML PO PRN (12:45)
[2024-03-03] MEDS ORDERED: ACETAMINOPHEN 325 MG TAB PO PRN (12:45)
[2024-03-03] MEDS ORDERED: SODIUM CHLORIDE 0.65% NA SOLN 45 ML (OCEAN) PRN (12:45)
[2024-03-03] MEDS ORDERED: ALUMINUM/MAGNESIUM SUSP 30 ML UDC PO PRN (12:45)
[2024-03-03] MEDS ORDERED: MAGNESIUM HYDROXIDE SUSP 30 ML UDC PO PRN (12:45)
[2024-03-03] MEDS: FAMOTIDINE 20 MG TAB PO SCH (20:42)
[2024-03-03] MEDS: LITHIUM CARBONATE 300 MG TAB PO SCH (20:42)
[2024-03-03] MEDS: GABAPENTIN 300 MG CAP PO SCH (20:43)
[2024-03-03] MEDS: PROPRANOLOL HCL 20 MG TAB PO SCH (20:43)
[2024-03-03] MEDS: haloperidoL 5 MG TAB PO SCH (20:43)
[2024-03-03] MEDS: APIXABAN 5 MG TABLET PO SCH (20:44)
[2024-03-03] MEDS: LACOSAMIDE 50 MG TABLET PO SCH (20:44)
[2024-03-03] MEDS: DOXEPIN HCL 25 MG CAPSULE PO SCH (20:44)
--- OUTSIDE RECORDS SUMMARY | 2024-03-03 22:45 | External Medical Summary | Summary of Care ---
Author Name Unknown Organization [facility] Address [address] [place] [address] Phone [phone] Care Team Providers Care Lath Hand Name Role Phone Kinsey Beach PA-C Primary Care Provider [phone] Reason for Visit * Reason Onset Date Comments Medication Refill 01/22/2024 Encounter Details Date Type Department Care Team (Late st Contact Info) Description 01/22/2024 Refill Family Practice [facility] [address] [facility] [place] [address] Kinsey Beach PA-C [address] [facility] [place] [address] Dyspepsia Allergies Active Allergy Reactions Criticality Noted Date Comments Vancomycin Itching 08/03/2019 Redness of skin documented as of this encounter (statuses as of 01/27/2024) Medications Medication Sig Dispensed Refills Start Date [...] mouth every 8 hours as needed. Active Ondansetron 4 MG Oral Tablet Disintegrating [...] other meds). 30 Tablet 6 08/13/2023 Active Propranolol HCl 40 MG Oral [...] Active Emgality 120 MG/ML Subcutaneous Solution Auto-injector (Galcanezumab-[facility]) Inject 1 mL under the skin Every Month. 1 mL 2 12/19/2023 Active Benztropine Mesylate 0.5 MG Oral Tablet (Cogentin) Take 1 Tablet by mouth in the morning and 1 Tablet before bedtime. 12/04/2023 Active Lacosamide 50 MG Oral Tablet (Vimpat) Take 2 Tablets by mouth in the morning and 2 Tablets before bedtime. 120 Tablet 2 12/30/2023 Active Famotidine 20 MG Oral Tablet (Pepcid)Indications :Dyspepsia Take 1 Tablet by mouth in the morning and 1 Tablet before bedtime. 180 Tablet 1 01/24/2024 Active Omeprazole 40 MG Oral Capsule Delayed Release (PriLOSEC)Indicatio ns:Dyspepsia TAKE ONE CAPSULE BY MOUTH EVERY MORNING 1 HOUR BEFORE THE FIRST MEAL OF THE DAY 90 Capsule 1 01/24/2024 Active Famotidine 20 MG Oral Tablet (Pepcid)Indications :Dyspepsia Take 1 Tablet by mouth in the morning and 1 Tablet before bedtime. 180 Tablet 1 08/13/2023 4 Discontinue d(Refill) Omeprazole 40 MG Oral Capsule Delayed Release (PriLOSEC)Indicatio ns:Dyspepsia TAKE ONE CAPSULE BY MOUTH EVERY MORNING 1 HOUR BEFORE THE FIRST MEAL OF THE DAY 90 Capsule 08/13/2023 4 Discontinue d(Refill) documented as of this encounter (statuses as of 01/27/2024) Active Problems Problem Noted Date Diagnosed Date [...] of pre-eclampsia; During , please notify your batch or continuous still operator if you experience headache, changes in [...] as of this encounter (statuses as of 01/27/2024) Resolved Problems Problem Noted Date Diagnosed Date [...] and proper diet. Consider referral to a aids social worker prior to conception for maternal conditions that [...] as of this encounter (statuses as of 01/27/2024) Immunizations Name Administration Dates Next Due COVID-19 [...] Miscellaneous Notes * Telephone Encounter - Kinsey Beach PA-C - 01/24/2024 8:14 AM EDTSigned Prescriptions: Disp Refills Famotidine 20 MG Oral Tablet (Pepcid) 180 Ta*1 Sig: Take 1 Tablet by mouth in the morning and 1 Tablet before bedtime. Authorizing Provider: KINSEY BEACH Omeprazole 40 MG Oral Capsule Delayed Rele*90 Cap*1 Sig: TAKE ONE CAPSULE BY MOUTH EVERY MORNING 1 HOUR BEFORE THE FIRST MEAL OF THE DAY Authorizing Provider: KINSEY MELENDEZ * Telephone Encounter - Althea Philippe RP - 01/24/2024 7:28 AM EDTPending Prescriptions: Disp Refills Famotidine 20 MG Oral Tablet (Pepcid) 180 Ta*1 Sig: Take 1 Tablet by mouth in the morning and 1 Tablet before bedtime. Omeprazole 40 MG Oral Capsule Delayed Rele*90 Cap*1 Sig: TAKE ONE CAPSULE BY MOUTH EVERY MORNING 1 HOUR BEFORE THE FIRST MEAL OF THE DAY ------- * Telephone Encounter - Althea Philippe RP - 01/24/2024 7:28 AM EDT Not yet approved by PCP. Please approve if appropriate. Thanks, Althea Philippe Clinical Pharmacist [facility] ([facility]) [phone] 01/24/2024, 7:28 AM * Telephone Encounter - Valerie Head PHARM Tech - 01/22/2024 5:58 PM EDT Did you pend patient's preferred pharmacy and medication before forwarding?yes Pharmacy: [id number] Pending Prescriptions: Disp Refills Famotidine 20 MG Oral Tablet (Pepcid) 180 Ta*1 Sig: Take 1 Tablet by mouth in the morning and 1 Tablet before bedtime. Omeprazole 40 MG Oral Capsule Delayed Rel*90 Cap*0 Sig: TAKE ONE CAPSULE BY MOUTH EVERY MORNING 1 HOUR BEFORE THE FIRST MEAL OF THE DAY Last Visit: 12/17/2023 (in office), 08/07/2023 (telemedicine) Next Visit: Visit date not found If no future appointments scheduled, and last appointment is greater than a year ago, please schedule patient for a follow-up appointment Last date the medication was ordered: 08/13/23 Is this request for a controlled substance?No Urine Drug Screen:No results found. However, due to the size of the patient record, not all encounters were searched. Please check Results Review for a complete set of results. Patient Phone Numbers Labs: Lab Results Component Value Date/Time CREAT 1.0 12/25/2023 11:49 AM CREAT 0.78 09/06/2023 12:00 AM CREAT 0.7 05/23/2020 06:20 AM POTASSIUM 5.0 12/25/2023 11:49 AM POTASSIUM 4.0 09/06/2023 12:00 AM POTASSIUM 3.9 05/23/2020 06:20 AM TSH 2.36 12/25/2023 11:49 AM TSH 2.030 08/30/2023 12:00 AM TSH 1.03 05/22/2023 08:23 AM TSH 0.39 06/27/2020 08:43 AM LDLCALC 148 (H) 03/29/2021 08:45 AM LDLCALC 101 03/01/2020 09:47 AM ALT 44 (H) 12/25/2023 11:49 AM ALT 22 11/25/2019 07:46 PM ALT 20 10/20/2019 06:42 PM HGBA1C 5.1 11/25/2023 12:08 PM HGBA1C 5.2 03/01/2020 09:47 AM documented in this encounter Plan of Treatment Upcoming Encounters Date Type Department Care Team (Late st Contact Info) Description 03/31/2024 9:20 AM EDT Office Visit Neurology [facility] [address] [facility] [place] [address] Cathi Wheeler PA-C [address] [facility] [place] [address] Scheduled Procedures Name Priority Associated Diagnoses Date/Ti [...] this encounter Medical Devices Implanted Type Area Assurance Engineer Device Identifier Shelf Expiration Date Model / Serial / Lot Screw Ti Lo Pro Sd 3mm 400.833 - [id number] Implanted:Qty: 4 on 12/28/2019 by Linden Townsend MD at [facility] Right: Head [employer] 400.833 / / Description:no expiration da te - reprocessed set Screw Ti Lo Pro Sd 4mm 400.834 - [id number] Implanted:Qty: 4 on 12/28/2019 by Linden Townsend MD at OR [facility] Right: Head [employer] 400.834 / / Description:no expiration da te - reprocessed set Plate Ti Lo Pro Str 2h 421.502 - [id number] Implanted:Qty: 4 on 12/28/2019 by Linden Townsend MD at OR [facility] Right: Head [employer] [id number] / / Description:no expiration da te - reprocessed set documented as of this encounter Visit Diagnoses Diagnosis Dyspepsia Dyspepsia and other specified disorders of function of stomach documented in this encounter Advance Directives * Full Code [...] Mike Doherty Spouse Emergency Contact Care Teams Lath Hand Relationship Specialty Start Date End Date Krysta November Dewayne, MAXC [address] [place] [address] PCP - General Physician Carcass Trimmer 03/23/22 documented as of this encounter
[2024-03-04 06:42] VITALS: O2SAT 95
[2024-03-04] MEDS: LEVOTHYROXINE SODIUM 50 MCG TABLET PO SCH (08:37)
--- NOTE | 2024-03-04 08:41 | History & Physical ---
Date of Service March 04, 2024 Impression / Recommendations Irma Mathis is a 23-year-old woman with a history of borderline personality disorder, depression, PTSD, eating disorder, self-harm, chronic intermittent SI and auditory hallucinations, and moyamoya disease, splenectomy, and was admitted on 03/03/24 12:45 on a 201 voluntary commitment for SI with plan and command AH to hurt herself in the context of worsening sleep over the past four days. Diagnostically consistent with insomnia and exacerbation of BPD symptoms. Discussed medication treatment options in detail. Discussed risks, benefits and alternatives. Patient consented to increasing her gabapentin to further help with insomnia. Given no other symptoms of psychosis at this time, except auditory hallucinations, this is felt to represent her previously exhibited internal negative self-talk/BPD related to symptom for which adjustments to her haldol are not felt to be necessary nor beneficial at this time as her medications had been working well until recent insomnia. Reviewed side effects including but not limited to: sedation, respiratory suppression with gabapentin. Reviewed side effects of her haldol which she wishes to remain on including movement (TD, NMS), cardiac (QTc prolongation), and metabolic (stroke, insulin resistance) and necessity for fasting lipid and glucose labwork and AIMS done with score of 0. MNPR due to asplenia with increased infection risk Overall I spent a total of 75 minutes for this admission including review of chart records, review of labwork, direct evaluation of the patient, counseling the patient, ordering medication, risk assessment, discussion with the psyc hiatric liason RN and documentation in the electronic health record. (1) Borderline personality disorder: (2) Suicidal thoughts: (3) Insomnia: (4) Asplenia: Plan 03/04/2024: The patient was admitted to the [facility] ([facility]) on q15 min checks (behavioral with suicide precautions) for safety. The patient will participate in group, recreational, and milieu therapies and will be offered additional individual and family sessions as clinically appropriate. -Continue prior to admission medications -Increase gabapentin from 300mg TID to 300mg qAM, 300mg qnoon and 600mg HS -Fasting lipid panel and glucose in AM Inventory Assets Strengths: supportive relationships, willing to get treatment Needs: safety and stabilization, medication adjustment, additional coping skills, increased outpatient services Suicide Risk Level Suicide Risk Level: High-Moderate (q15 min suicide checks) (SI with plan and AH but feels safe in the hospital, has not engaged in any recent self-harm and feels able to reach out for support if she feels unable to remain safe) Risk Factors Assessment Male: No : Yes Do You Have Access To A Gun?: No Health Problems: Yes Mental Health Diagnoses: Yes Substance Use Disorders: No Previous Attempt: Yes Previous Psychiatric Hospitalization: Yes Protective Factors Assessment : Yes Employed: No Stable Relationships: Yes Supportive Family: Yes Good Rapport with Provider: Yes Psychiatric History Identifying Data MAKENZIE HILLIARD is a 23-year-old F who currently lives in [place] with her and in-laws, has a history of borderline personality disorder, depression, PTSD, eating disorder, self-harm, chronic intermittent SI and auditory hallucinations, and moyamoya disease, splenectomy, and was admitted on 03/03/24 12:45 on a 201 voluntary commitment for SI with plan and command AH to hurt herself. Chief Complaint "It was going good until I stopped sleeping ". History of Present Illness Makenzie reports a recent disruption in sleep pattern starting approximately 4 days ago and since then her auditory hallucinations have become loud, constant and instructing her to kill herself. This has also contributed to worsening of her baseline chronic intermittent SI. In reviewing sleep hygiene she denies any recent apparent changes in routine or her health contributing to increased sleep difficulty. Typically she goes to bed at 10 PM and sleeps until 7 AM but has been having difficulty falling and staying asleep. Denies nightmares or unusual dreams. No changes in screen time before bed, caffeine intake, or medications. She feels her psychiatric medications had been working well until her sleep disruption began four days ago. Has had thoughts of overdosing or cutting self but has not acted on them nor engaged in any recent restricted eating. Attends [employer] 3 times a week for full day programming but does not have a therapist due to insurance limitations. Has a peer support via [employer]. 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 Denies any recent substance use. Past Psychiatric History Current Psychiatric Diagnosis: Bipolar; Borderline PD; MDD Outpatient Services: [facility] for psychiatry, [facility], [facility], Between university partnership rep at [facility] Previous Psych Admissions: multiple >10 last at [facility] in January 2024 from 01/26/2024 -01/29/2024 Do You Have Access To A Gun?: No History of Previous Suicide Attempt: Yes Describe Attempts in the Past: October 2022 Past Medication Trials: many Past Head Trauma/Neuro History History of Concussion/Seizure: Yes possible seizure-like activity in the past vs syncope Allergies Allergy/AdvReac Type Severity Reaction Status Date / Time vancomycin Allergy Intermediate Red/Itchy Verified 12/09/23 20:24 skin Home Medications Medication Instructions Recorded Confirmed Type apixaban 5 mg tablet (Eliquis) 5 mg PO AMHS 07/27/22 03/03/24 History propranolol 40 mg tablet 40 mg PO BID 07/27/22 03/03/24 History famotidine 20 mg tablet 20 mg PO BID 10/13/22 03/03/24 History omeprazole 40 mg capsule,delayed 40 mg PO QAM 01/23/23 03/03/24 History release levothyroxine 50 mcg tablet 50 mcg PO DAILY 04/08/23 03/03/24 History doxepin 25 mg capsule 25 mg PO HS 08/30/23 03/03/24 History naltrexone 50 mg tablet 50 mg PO DAILY 08/30/23 03/03/24 History gabapentin 300 mg capsule 300 mg PO TID 12/09/23 03/03/24 History lacosamide 50 mg tablet (Vimpat) 100 mg (2 x 50 mg) PO BID #120 tabs 12/11/23 03/03/24 Rx haloperidol 5 mg tablet 10 mg (2 x 5 mg) PO BID #120 tabs 01/29/24 03/03/24 Rx hydroxyzine HCl 50 mg tablet 50 mg PO HSZ PRN insomnia #30 tabs 01/29/24 03/03/24 Rx lithium carbonate 300 mg capsule 300 mg PO DAILY #30 caps 01/29/24 03/03/24 Rx lithium carbonate 600 mg capsule 600 mg PO HS #30 caps 01/29/24 03/03/24 Rx lorazepam 0.5 mg tablet 0.5 mg PO Q6H PRN anxiety #15 tabs 01/29/24 03/03/24 Rx Family History Family History of: Depression and Anxiety Alcohol History Hx of Alcohol Use Over the Past 12 Months: No AUDIT Total Score: 0 Smoking Use Have You Smoked or Used Tobacco Products in the Last 30 Days: No Smoking Status: Never smoker Substance History Hx of Prescription Med Misuse Over the Past 12 Months: No Hx of Over the Counter Med Misuse Over the Past 12 Months: No Hx of Inhalent Misuse Over the Past 12 Months: No Hx of Organic Substance Use Over the Past 12 Months: No Hx of Illegal Substances/Street Drug Use Over Past 12 Months: No Problems as a Result of Past Substance Use: None Identified Personal History Living Arrangements: Home Highest Grade Completed: Some College Employment Status: Unemployed Marital Status: Number Of Children: n/a Beliefs That Will Affect Care: None Current Legal Problems: No Hx Legal Problems: No Hx Traumatic Life Events: Yes Patient History Medical History Auditory hallucinations Spherocytosis Involuntary commitment Depression with suicidal ideation MDD (major depressive disorder), recurrent, severe, with psychosis Depression with suicidal ideation Eating disorder, unspecified Suicidal ideation Major depressive disorder with psychotic features Major depression Thrombocytosis Intermittent asthma 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 Surgical History History of splenectomy Family History Denies family history of Coronary heart disease Social History Smoking Status: Never smoker Second Hand Exposure: No; Do You Dip or Chew Tobacco: No; Hx Alcohol Use: No Hx Substance Use: No Preferred Language: Faroese Communication Ability: Effective Retail Wireless Associate Required: No Beliefs That Will Affect Care: None marital status: Current Living Situation: Spouse and Family How many Children do You have: 0 Feels Safe at Home: Yes Gender Identity: Female Assistive Devices: Glasses Review of Systems Review of Systems: All systems reviewed & are unremarkable except as noted in HPI & below Physical Exam Psychiatric: Orientation: alert and oriented x 3 Apperance: appropriately dressed and appropriately groomed Eye Contact: good eye contact Motor Behavior: no abnormal motor movements Speech: normal rate/rhythm/volume of speech Affect: + constricted affect Mood: + depressed mood Thought Process: goal directed thought process and + concrete thought process Thought Content: reality based without delusions Suicidal Thoughts: denies suicidal intent; + reports suicidal thoughts and + reports suicidal plan (none for hospital, outside to overdose or cut herself) Homicidal Thoughts: denies homicidal thoughts Hallucinations: + auditory hallucinations (cAH to hurt herself); no visual hallucinations Cognition: recent memory grossly intact, remote memory grossly intact, attention grossly intact and language grossly intact Estimated Intelligence: consistent with education level Insight: + fair insight Judgment: + limited judgement Vital Signs (Past 24 Hours): Last Vital Signs Temp 36.5 C 03/04/24 06:41 Pulse 65 03/04/24 06:41 Resp 18 03/04/24 06:41 BP 93/56 L 03/04/24 06:41 Pulse Ox 95 03/04/24 06:41 O2 Del Method Room Air 03/04/24 06:41 Exam Statement: A physical exam was performed in the ED by Dr. Taylor for the purposes of medical clearance. I accept that physical as correct and adequate for the purposes of the inpatient physical exam. Results & Data ([facility]) Laboratory Results Laboratory Results - last 24 hr 03/03/24 03/03/24 03/03/24 10:50 11:11 11:19 WBC RBC Hgb Hct MCV MCH MCHC RDW Std Deviation RDW Coeff of Toni Plt Count MPV Immature Gran % (Auto) Neut % (Auto) Lymph % (Auto) [place] % (Auto) Eos % (Auto) Baso % (Auto) Neut # (Auto) Lymph # (Auto) [place] # (Auto) Eos # (Auto) Baso # (Auto) Immature Gran # (Auto) Sodium 137 Potassium 4.2 Chloride 107 Carbon Dioxide 25 Anion Gap 5 BUN 10 Creatinine 0.82 Est Cr Clr Drug Dosing 102.1 Est GFR ( Amer) 115.3 Est GFR (Non-Af Amer) 99.5 BUN/Creatinine Ratio 12.2 Glucose 95 Calcium 9.5 Total Bilirubin 0.8 AST 23 ALT 29 Alkaline Phosphatase 91 Total Protein 6.8 Albumin 4.2 Globulin 2.6 Albumin/Globulin Ratio 1.6 TSH 1.945 HCG, Qual Negative Urine Color Yellow Urine Appearance Cloudy A Urine pH 8.0 H Ur Specific [place] 1.009 Urine Protein Negative Urine Glucose (UA) Negative Urine Ketones Negative Urine Blood Negative Urine Nitrite Negative Urine Bilirubin Negative Urine Urobilinogen Negative Ur Leukocyte Esterase Trace H Urine WBC (Auto) 0-5 Urine RBC (Auto) 0-2 U Hyaline Cast (Auto) 0-2 U Epithel Cells (Auto) 3-5 H Urine Bacteria (Auto) None Seen Salicylates < 3.0 L Urine Opiates Screen Neg Ur Methadone, Qual Neg Urine Fentanyl Screen Neg Acetaminophen < 3 L Urine Barbiturates Neg Ur Phencyclidine (PCP) Neg U Amphetamin/Meth Scrn Neg MDMA (Ecstasy) Screen Neg U Benzodiazepines Scrn Neg [place] 1.1 Ur Cocaine Metabolite Neg U Marijuana (THC) Screen Neg Ethyl Alcohol mg/dL < 10.0 SARS-CoV-2, RNA, NAAT NEGATIVE 03/03/24 11:49 WBC 11.48 H RBC 4.45 Hgb 13.6 Hct 39.9 MCV 89.7 MCH 30.6 MCHC 34.1 RDW Std Deviation 41.7 RDW Coeff of Toni 12.6 Plt Count 695 H MPV 9.1 L Immature Gran % (Auto) 0.2 Neut % (Auto) 62.8 Lymph % (Auto) 25.1 [place] % (Auto) 9.1 Eos % (Auto) 1.9 Baso % (Auto) 0.9 Neut # (Auto) 7.21 H Lymph # (Auto) 2.88 [place] # (Auto) 1.05 H Eos # (Auto) 0.22 Baso # (Auto) 0.10 Immature Gran # (Auto) 0.02 Sodium Potassium Chloride Carbon Dioxide Anion Gap BUN Creatinine Est Cr Clr Drug Dosing Est GFR ( Amer) Est GFR (Non-Af Amer) BUN/Creatinine Ratio Glucose Calcium Total Bilirubin AST ALT Alkaline Phosphatase Total Protein Albumin Globulin Albumin/Globulin Ratio TSH HCG, Qual Urine Color Urine Appearance Urine pH Ur Specific [place] Urine Protein Urine Glucose (UA) Urine Ketones Urine Blood Urine Nitrite Urine Bilirubin Urine Urobilinogen Ur Leukocyte Esterase Urine WBC (Auto) Urine RBC (Auto) U Hyaline Cast (Auto) U Epithel Cells (Auto) Urine Bacteria (Auto) Salicylates Urine Opiates Screen Ur Methadone, Qual Urine Fentanyl Screen Acetaminophen Urine Barbiturates Ur Phencyclidine (PCP) U Amphetamin/Meth Scrn MDMA (Ecstasy) Screen U Benzodiazepines Scrn Aucilla Ur Cocaine Metabolite U Marijuana (THC) Screen Ethyl Alcohol mg/dL SARS-CoV-2, RNA, NAAT Current Inpatient Medications Current Inpatient Medications: Current Inpatient Medications Acetaminophen (Acetaminophen 325 Mg Tab) 650 mg PO Q4H PRN PRN Reason: Headache or Minor Fever Stop: 04/02/24 12:44 Al Hydrox/Mg Hydrox/Simethicone (Aluminum/Magnesium Susp 30 Ml Udc) 30 ml PO Q4H PRN PRN Reason: GI Upset Stop: 04/02/24 12:44 Apixaban (Apixaban 5 Mg Tablet) 5 mg PO AMHS RENU Stop: 04/02/24 20:59 Last Admin: 03/03/24 20:44 Dose: 5 mg Bismuth Subsalicylate (Bismuth Subsalicylate Liqd 236 Ml) 15 ml PO PRN PRN PRN Reason: Loose Stool Stop: 04/02/24 12:44 Doxepin HCl (Doxepin Hcl 25 Mg Capsule) 25 mg PO HS RENU Stop: 04/02/24 21:59 Last Admin: 03/03/24 20:44 Dose: 25 mg Famotidine (Famotidine 20 Mg Tab) 20 mg PO BID RENU Stop: 04/02/24 20:59 Last Admin: 03/03/24 20:42 Dose: 20 mg Gabapentin (Gabapentin 300 Mg Cap) 300 mg PO TID RENU Stop: 04/02/24 20:59 Last Admin: 03/03/24 20:43 Dose: 300 mg Haloperidol (Haloperidol 5 Mg Tab) 10 mg PO BID RENU Stop: 04/02/24 20:59 Last Admin: 03/03/24 20:43 Dose: 10 mg Hydroxyzine HCl (Hydroxyzine Hcl 25 Mg Tab) 50 mg PO HSZ PRN PRN Reason: Insomnia Stop: 04/02/24 12:44 Hydroxyzine HCl (Hydroxyzine Hcl 25 Mg Tab) 25 mg PO Q4H PRN PRN Reason: Anxiety Stop: 04/02/24 12:44 Lacosamide (Lacosamide 50 Mg Tablet) 100 mg PO BID RENU Stop: 04/02/24 20:59 Last Admin: 03/03/24 20:44 Dose: 100 mg Levothyroxine Sodium (Levothyroxine Sodium 50 Mcg Tablet) 50 mcg PO DAILYBB [facility] Stop: 04/03/24 07:59 A[place] Carbonate (A[place] Carbonate 300 Mg Tab) 600 mg PO HS [facility] Stop: 04/02/24 21:59 Last Admin: 03/03/24 20:42 Dose: 600 mg [place] Carbonate ([place] Carbonate 300 Mg Tab) 300 mg PO DAILY RENU Stop: 04/03/24 08:59 Lorazepam (Lorazepam 0.5 Mg Tab) 0.5 mg PO Q6H PRN PRN Reason: anxiety Stop: 04/02/24 15:25 Magnesium Hydroxide (Magnesium Hydroxide Susp 30 Ml Udc) 30 ml PO DAILY PRN PRN Reason: Constipation Stop: 04/02/24 12:44 Naltrexone HCl (Naltrexone Hcl 50 Mg Tab) 50 mg PO DAILY RENU Stop: 04/03/24 08:59 Pantoprazole Sodium (Pantoprazole 40 Mg Tab) 40 mg PO QAM RENU; Protocol Stop: 04/03/24 08:59 Propranolol HCl (Propranolol Hcl 20 Mg Tab) 40 mg PO BID RENU Stop: 04/02/24 20:59 Last Admin: 03/03/24 20:43 Dose: 40 mg Sodium Chloride (Sodium Chloride 0.65% Na Soln 45 Ml ([place])) 1 - 2 sprays NA PRN PRN PRN Reason: Nasal Dryness/Congestion Stop: 04/02/24 12:44
[2024-03-04] MEDS: LITHIUM CARBONATE 300 MG TAB PO SCH (08:42)
[2024-03-04] MEDS: NALTREXONE HCL 50 MG TAB PO SCH (08:42)
[2024-03-04] MEDS: PANTOprazole 40 MG TAB PO SCH (08:43)
[2024-03-04] MEDS: LORazepam 0.5 MG TAB PO PRN (13:15)
[2024-03-04] MEDS: GABAPENTIN 300 MG CAP PO SCH (13:44)
[2024-03-04] MEDS: GABAPENTIN 600 MG TAB PO SCH (20:56)
[2024-03-05 06:37] VITALS: RESP 16
--- NOTE | 2024-03-05 08:29 | Psychiatric Progress Note ---
Date of Service March 05, 2024 Impression / Recommendations Irma Mathis is a 23-year-old woman with a history of borderline personality disorder, depression, PTSD, eating disorder, self-harm, chronic intermittent SI and auditory hallucinations, and moyamoya disease, splenectomy, and was admitted on 03/03/24 12:45 on a 201 voluntary commitment for SI with plan and command AH to hurt herself in the context of worsening sleep over the past four days. Diagnostically consistent with insomnia and exacerbation of BPD symptoms. A: Mood improving and denies SI today. Presentation remains consistent with borderline personality disorder and unspecified depression likely adjustment disorder with depressed mood in setting of insomnia prior to admission. Working on disposition and safety planning, focus on brief hospitalization given history of decompensation with prolonged hospitalization and goal of ensuring she can re-engage quickly with her outpatient supports and [employer] routine. Fasting lipid panel reviewed and normal, glucose slightly elevated, reasonable to continue with haldol. MNPR due to asplenia with increased infection risk Overall, I spent a total of 25 minutes on this case including meeting with the patient, reviewing the chart, nursing report, multidisciplinary team meeting, orders, and documentation. (1) Depression: (2) Borderline personality disorder: (3) Suicidal thoughts: (4) Insomnia: (5) Asplenia: (6) Post traumatic stress disorder (PTSD): Plan 03/05/2024: Continue current medications and tx plan. 03/04/2024: The patient was admitted to the [facility]) on q15 min checks (behavioral with suicide precautions) for safety. The patient will participate in group, recreational, and milieu therapies and will be offered additional individual and family sessions as clinically appropriate. -Continue prior to admission medications -Increase gabapentin from 300mg TID to 300mg qAM, 300mg qnoon and 600mg HS -Fasting lipid panel and glucose in AM Inventory Assets Strengths: supportive relationships, willing to get treatment Needs: safety and stabilization, medication adjustment, additional coping skills, increased outpatient services Suicide Risk Level Suicide Risk Level: Moderate (q15 min suicide checks) (SI with plan and AH but feels safe in the hospital, has not engaged in any recent self-harm and feels able to reach out for support if she feels unable to remain safe) Risk Factors Assessment Male: No : Yes Do You Have Access To A Gun?: No Health Problems: Yes Mental Health Diagnoses: Yes Substance Use Disorders: No Previous Attempt: Yes Previous Psychiatric Hospitalization: Yes Protective Factors Assessment : Yes Employed: No Stable Relationships: Yes Supportive Family: Yes Good Rapport with Provider: Yes Interval History Identifying Information MAKENZIE HILLIARD is a 23-year-old F who currently lives in [place] with her and in-laws, has a history of borderline personality disorder, depression, PTSD, eating disorder, self-harm, chronic intermittent SI and auditory hallucinations, and moyamoya disease, splenectomy, and was admitted on 03/03/24 12:45 on a 201 voluntary commitment for SI with plan and command AH to hurt herself. Chief Complaint "I'm alright". Review of Systems Sleep Information Total Hours of Sleep: 8.45 Meal Information Percent Meal Consumed - Breakfast: 80 Percent Meal Consumed - Dinner: 65 Subjective Subjective Patient was seen & assessed and interval progress reviewed with treatment team nursing and social work. Spent a lot of time reading in her room. Declined her bedtime medications but would not process why. Slept 8.25 hours and sleeping in this morning. Today reports her mood is improving, denies any SI today reporting "they're better". States she declined her medication last night because she felt suicidal. Today she has been accepting of her medication and wants to try the increased gabapentin dose for HS though slept well last night without any medication. We discussed if possibly there has been some stressor or other contributing factor at her home that was impacting her sleep given her improvement in the hospital even without medication. She remains unable to identify any stressors but agrees there seems to be an environment component. Engaged in safety planning. Met with her new case packer. Physical Exam Psychiatric Orientation: alert and oriented x 3 Apperance: appropriately dressed and appropriately groomed Eye Contact: good eye contact Motor Behavior: no abnormal motor movements Speech: normal rate/rhythm/volume of speech Affect: euthymic affect Mood: no depressed mood and no anxious mood Thought Process: goal directed thought process and + concrete thought process Thought Content: reality based without delusions Suicidal Thoughts: denies suicidal thoughts, denies suicidal plan and denies suicidal intent Homicidal Thoughts: denies homicidal thoughts Hallucinations: no auditory hallucinations and no visual hallucinations Cognition: recent memory grossly intact, remote memory grossly intact, attention grossly intact and language grossly intact Estimated Intelligence: consistent with education level Insight: + fair insight Judgment: + limited judgement Vital Signs (Past 24 Hours) Last Vital Signs Temp 36.9 C 03/05/24 06:35 Pulse 90 03/05/24 06:36 Resp 16 03/05/24 06:35 BP 93/62 L 03/05/24 06:36 Pulse Ox 95 03/04/24 06:41 O2 Del Method Room Air 03/04/24 06:41 Results & Data ([facility]) Laboratory Results Laboratory Results - last 24 hr 03/04/24 08:54 [place] 0.9 Current Inpatient Medications Current Inpatient Medications: Current Inpatient Medications Acetaminophen (Acetaminophen 325 Mg Tab) 650 mg PO Q4H PRN PRN Reason: Headache or Minor Fever Stop: 04/02/24 12:44 Al Hydrox/Mg Hydrox/Simethicone (Aluminum/Magnesium Susp 30 Ml Udc) 30 ml PO Q4H PRN PRN Reason: GI Upset Stop: 04/02/24 12:44 Apixaban (Apixaban 5 Mg Tablet) 5 mg PO AMHS RENU Stop: 04/02/24 20:59 Last Admin: 03/04/24 20:54 Dose: Not Given Bismuth Subsalicylate (Bismuth Subsalicylate Liqd 236 Ml) 15 ml PO PRN PRN PRN Reason: Loose Stool Stop: 04/02/24 12:44 Doxepin HCl (Doxepin Hcl 25 Mg Capsule) 25 mg PO HS RENU Stop: 04/02/24 21:59 Last Admin: 03/04/24 20:55 Dose: Not Given Famotidine (Famotidine 20 Mg Tab) 20 mg PO BID RENU Stop: 04/02/24 20:59 Last Admin: 03/04/24 20:55 Dose: Not Given Gabapentin (Gabapentin 300 Mg Cap) 300 mg PO [id number] RENU Stop: 04/03/24 13:59 Last Admin: 03/04/24 13:44 Dose: 300 mg Gabapentin (Gabapentin 600 Mg Tab) 600 mg PO HS RENU Stop: 04/03/24 21:59 Last Admin: 03/04/24 20:56 Dose: Not Given Haloperidol (Haloperidol 5 Mg Tab) 10 mg PO BID RENU Stop: 04/02/24 20:59 Last Admin: 03/04/24 20:55 Dose: Not Given Hydroxyzine HCl (Hydroxyzine Hcl 25 Mg Tab) 50 mg PO HSZ PRN PRN Reason: Insomnia Stop: 04/02/24 12:44 Hydroxyzine HCl (Hydroxyzine Hcl 25 Mg Tab) 25 mg PO Q4H PRN PRN Reason: Anxiety Stop: 04/02/24 12:44 Lacosamide (Lacosamide 50 Mg Tablet) 100 mg PO BID RENU Stop: 04/02/24 20:59 Last Admin: 03/04/24 20:55 Dose: Not Given Levothyroxine Sodium (Levothyroxine Sodium 50 Mcg Tablet) 50 mcg PO DAILYBB RENU Stop: 04/03/24 07:59 Last Admin: 03/04/24 08:37 Dose: 50 mcg [place] Carbonate ([place] Carbonate 300 Mg Tab) 600 mg PO HS [facility] Stop: 04/02/24 21:59 Last Admin: 03/04/24 20:56 Dose: Not Given [place] Carbonate ([place] Carbonate 300 Mg Tab) 300 mg PO DAILY RENU Stop: 04/03/24 08:59 Last Admin: 03/04/24 08:42 Dose: 300 mg Lorazepam (Lorazepam 0.5 Mg Tab) 0.5 mg PO Q6H PRN PRN Reason: anxiety Stop: 04/02/24 15:25 Last Admin: 03/04/24 13:15 Dose: 0.5 mg Magnesium Hydroxide (Magnesium Hydroxide Susp 30 Ml Udc) 30 ml PO DAILY PRN PRN Reason: Constipation Stop: 04/02/24 12:44 Naltrexone HCl (Naltrexone Hcl 50 Mg Tab) 50 mg PO DAILY RENU Stop: 04/03/24 08:59 Last Admin: 03/04/24 08:42 Dose: 50 mg Pantoprazole Sodium (Pantoprazole 40 Mg Tab) 40 mg PO QAM [facility]; Protocol Stop: 04/03/24 08:59 Last Admin: 03/04/24 08:43 Dose: 40 mg Propranolol HCl (Propranolol Hcl 20 Mg Tab) 40 mg PO BID [facility] Stop: 04/02/24 20:59 Last Admin: 03/04/24 20:55 Dose: Not Given Sodium Chloride (Sodium Chloride 0.65% Na Soln 45 Ml ([place])) 1 - 2 sprays NA PRN PRN PRN Reason: Nasal Dryness/Congestion Stop: 04/02/24 12:44 Mental Health & Subst Abuse Tx Therapist Date of Therapist Appointment: [facility] Exhaust And Muffler Repairer Name of Exhaust And Muffler Repairer: Ana Smith Post Discharge Appointments Primary Care Physician Name Of Family Doctor/PCP: Kinsey Mac
[2024-03-05 09:13] LABS: Chol HDL Ratio 3.7 (0-5)
[2024-03-06 06:45] VITALS: BP 104/70; TEMP 97.9
--- NOTE | 2024-03-06 08:32 | Discharge Summary ---
Date of Service March 06, 2024 History of Present Illness Delfina reports a recent disruption in sleep pattern starting approximately 4 days ago and since then her auditory hallucinations have become loud, constant and instructing her to kill herself. This has also contributed to worsening of her baseline chronic intermittent SI. In reviewing sleep hygiene she denies any recent apparent changes in routine or her health contributing to increased sleep difficulty. Typically she goes to bed at 10 PM and sleeps until 7 AM but has been having difficulty falling and staying asleep. Denies nightmares or unusual dreams. No changes in screen time before bed, caffeine intake, or medications. She feels her psychiatric medications had been working well until her sleep disruption began four days ago. Has had thoughts of overdosing or cutting self but has not acted on them nor engaged in any recent restricted eating. Attends [employer] 3 times a week for full day programming but does not have a therapist due to insurance limitations. Has a peer support via [employer]. In the process of obtaining new case checker after previous one was not a good fit. Denies any recent substance use. Physical Exam Vital Signs (Past 24 Hours) Last Vital Signs Temp 36.6 C 03/06/24 06:43 Pulse 87 03/06/24 06:44 Resp 16 03/06/24 06:43 BP 104/70 03/06/24 06:44 Pulse Ox 95 03/04/24 06:41 O2 Del Method Room Air 03/04/24 06:41 See admission H&P and DOD summary. Principal Diagnosis Major Depressive Disorder, Borderline Personality Disorder Psychiatric Data See daily stay summary. In short, patient was engaged with the social/therapeutic milieu of the unit, safety was maintained and the patient was largely cooperative with care. Medication changes included addition of gabapentin 300mg HS prn for insomnia and they tolerated this well. She met with her new case checker for support and safety plan was completed prior to discharge. She participated in safety planning and in discussions about ways to seek support and recognizing warning signs and utilizing coping skills. She continues to struggle to utilize her outpatient resources outside of the hospital, continuing to explore ways to help her feel motivated and willing to access these resources when she feels unsafe or overwhelmed particularly given the chronic nature of intermittent SI. Reviewed importance of seeking emergency care should outpatient resources and safety plan strategies not help or if she feels unable to remain safe to engage with less intense services which she agrees to do. On the day of discharge she stated her mood was "good" and remained future- oriented including relaxing, watching TV shows she likes, spending time with her and engaging in aftercare appointments for psychiatry, case management, [facility], [facility]. Continue to encourage involvement with DBT services when or if her insurance changes or new community resources become available/financially feasible. Day of Discharge Assessment Today the patient voices readiness for discharge. They note improvement in mood and anxiety. They deny thoughts of harm to self or others. Thoughts are organized and they are clinically improved from admission. There is no evidence of psychosis. They improved in the hospital with support and medication adjustments. They agree to take medications as prescribed and keep follow-up appointments. At the time of the discharge they are deemed to be stable and appropriate for outpatient level of care. They are not deemed to be at imminent risk of harm to self or others. They are aware of emergency and crisis services. Knows to call 911 or go to nearest emergency care center if in a crisis which cannot be handled as an outpatient. Overall, I spent a total of 38 minutes on this case including meeting with the patient, reviewing the chart, nursing report, multidisciplinary team meeting, orders, and documentation. Transition of Care Transition Of Care Record: was reviewed with the patient Advance Directives Advance Directives Information Provided: Yes Advance Directives: No Mental Health Advance Directive: No Advance Directives on File: No Living Will: No Power of Auto Hauler: No Advance Directives Reason:: Declines as Mental Health Visit. Suicide Risk Level Suicide Risk Level Comments: Acute risk is low given improvement in mood and denial of SI, lack of access to lethal means, improvement in sleep, hopefulness and improvement in psychosis. Chronic risk is moderate to high given multiple non-modifiable risk factors: psychiatric co-morbid diagnoses, periods of impulsivity, prior attempt, hx self- harm, emotional reactivity, chronic illness, prior psychiatric hospitalizations, limited social support, cluster B personality disorder, childhood trauma but also with protective factors including: sense of responsibility to family and social supports, outpatient care in place. Counseled on ways to reduce acute and chronic risk including engaging with outpatient providers, using safety plan if needed, utilizing supports, taking medication, and using coping skills. Modifiable risk factors of SI, psychosis and depression were addressed during hospitalization through development of new coping skills, coordination with new outpatient case checker, building strengths, safety planning, and medication adjustments. Risk Factors Assessment Male: No : Yes Do You Have Access To A Gun?: No Health Problems: Yes Mental Health Diagnoses: Yes Substance Use Disorders: No Previous Attempt: Yes Family History of Suicide: No Previous Psychiatric Hospitalization: Yes Hopelessness: No Protective Factors Assessment : Yes Employed: No Stable Relationships: Yes Supportive Family: Yes Good Rapport with Provider: Yes Discharge Data Lab Results 03/03/24 03/03/24 03/03/24 10:50 11:11 11:19 WBC RBC Hgb Hct MCV MCH MCHC RDW Std Deviation RDW Coeff of Toni Plt Count MPV Immature Gran % (Auto) Neut % (Auto) Lymph % (Auto) [place] % (Auto) Eos % (Auto) Baso % (Auto) Neut # (Auto) Lymph # (Auto) [place] # (Auto) Eos # (Auto) Baso # (Auto) Immature Gran # (Auto) Sodium 137 Potassium 4.2 Chloride 107 Carbon Dioxide 25 Anion Gap 5 BUN 10 Creatinine 0.82 Est Cr Clr Drug Dosing 102.1 Est GFR ( Amer) 115.3 Est GFR (Non-Af Amer) 99.5 BUN/Creatinine Ratio 12.2 Glucose 95 Fasting Glucose Calcium 9.5 Total Bilirubin 0.8 AST 23 ALT 29 Alkaline Phosphatase 91 Total Protein 6.8 Albumin 4.2 Globulin 2.6 Albumin/Globulin Ratio 1.6 Triglycerides Cholesterol LDL Cholesterol, Calc VLDL Cholesterol, Calc HDL Cholesterol Cholesterol/HDL Ratio TSH 1.945 HCG, Qual Negative Urine Color Yellow Urine Appearance Cloudy A Urine pH 8.0 H Ur Specific Jackson 1.009 Urine Protein Negative Urine Glucose (UA) Negative Urine Ketones Negative Urine Blood Negative Urine Nitrite Negative Urine Bilirubin Negative Urine Urobilinogen Negative Ur Leukocyte Esterase Trace H Urine WBC (Auto) 0-5 Urine RBC (Auto) 0-2 U Hyaline Cast (Auto) 0-2 U Epithel Cells (Auto) 3-5 H Urine Bacteria (Auto) None Seen Salicylates < 3.0 L Urine Opiates Screen Neg Ur Methadone, Qual Neg Urine Fentanyl Screen Neg Acetaminophen < 3 L Urine Barbiturates Neg Ur Phencyclidine (PCP) Neg U Amphetamin/Meth Scrn Neg MDMA (Ecstasy) Screen Neg U Benzodiazepines Scrn Neg [place] 1.1 Ur Cocaine Metabolite Neg U Marijuana (THC) Screen Neg Ethyl Alcohol mg/dL < 10.0 SARS-CoV-2, RNA, NAAT NEGATIVE 03/03/24 03/04/24 03/05/24 11:49 08:54 08:26 WBC 11.48 H RBC 4.45 Hgb 13.6 Hct 39.9 MCV 89.7 MCH 30.6 MCHC 34.1 RDW Std Deviation 41.7 RDW Coeff of Toni 12.6 Plt Count 695 H MPV 9.1 L Immature Gran % (Auto) 0.2 Neut % (Auto) 62.8 Lymph % (Auto) 25.1 [place] % (Auto) 9.1 Eos % (Auto) 1.9 Baso % (Auto) 0.9 Neut # (Auto) 7.21 H Lymph # (Auto) 2.88 [place] # (Auto) 1.05 H Eos # (Auto) 0.22 Baso # (Auto) 0.10 Immature Gran # (Auto) 0.02 Sodium Potassium Chloride Carbon Dioxide Anion Gap BUN Creatinine Est Cr Clr Drug Dosing Est GFR ( Amer) Est GFR (Non-Af Amer) BUN/Creatinine Ratio Glucose Fasting Glucose 106 H Calcium Total Bilirubin AST ALT Alkaline Phosphatase Total Protein Albumin Globulin Albumin/Globulin Ratio Triglycerides 124 Cholesterol 127 LDL Cholesterol, Calc 68 VLDL Cholesterol, Calc 25 HDL Cholesterol 34 Cholesterol/HDL Ratio 3.7 TSH HCG, Qual Urine Color Urine Appearance Urine pH Ur Specific Jackson Urine Protein Urine Glucose (UA) Urine Ketones Urine Blood Urine Nitrite Urine Bilirubin Urine Urobilinogen Ur Leukocyte Esterase Urine WBC (Auto) Urine RBC (Auto) U Hyaline Cast (Auto) U Epithel Cells (Auto) Urine Bacteria (Auto) Salicylates Urine Opiates Screen Ur Methadone, Qual Urine Fentanyl Screen Acetaminophen Urine Barbiturates Ur Phencyclidine (PCP) U Amphetamin/Meth Scrn MDMA (Ecstasy) Screen U Benzodiazepines Scrn [place] 0.9 Ur Cocaine Metabolite U Marijuana (THC) Screen Ethyl Alcohol mg/dL SARS-CoV-2, RNA, NAAT Hospital Course (1) Depression: (2) Borderline personality disorder: (3) Suicidal thoughts: (4) Insomnia: (5) Asplenia: (6) Post traumatic stress disorder (PTSD): (7) MDD (major depressive disorder), recurrent, in partial remission: Plan 03/06/2024: Sleep reamins improved, feels safe and ready for discharge 03/05/2024: Continue current medications and tx plan. 03/04/2024: The patient was admitted to the [facility] ([facility] inpatient mental health unit) on q15 min checks (behavioral with suicide precautions) for safety. The patient will participate in group, recreational, and milieu therapies and will be offered additional individual and family sessions as clinically appropriate. -Continue prior to admission medications -Increase gabapentin from 300mg TID to 300mg qAM, 300mg qnoon and 600mg HS -Fasting lipid panel and glucose in AM Mental Health & Subst Abuse Tx Psychiatrist Name of Psychiatrist: [facility] Date Of Appointment With Psychiatric Provider: 03/10/24 Time of Appointment with Psychiatrist: 11:00am Therapist Date of Therapist Appointment: Zoey Tavera [employer] Wel[employer] Lead Burner Name of Welding Lead Burner: Ana Smith Phone Number for Welding Lead Burner: [phone] Case Management Appointment Comment: Follow up with Case management reasignment Post Discharge Appointments Primary Care Physician Name Of Family Doctor/PCP: Kinsey Mac Primary Care Provider Appointment Comment: As needed Contact Information Discharge Discharge Address: [address] [place] [address] MYRIAM Mehta [address] Discharge Plan Discharge Items Patient Disposition: Home - Self-Care Reason For Visit: MHE Discharge Diagnosis: Major Depressive Disorder, Borderline Personality Disorder Activity: Resume your previous activity Non-emergency contact: Primary Care Provider, Psychiatrist and Card Hanger Call non-emergency contact if: you have any medication questions and your symptoms worsen Follow-up/Referrals: Kinsey Chaparro PA-C [Primary Care Provider] - Diet: Regular Addtl Attending Provider Instructions: SPECIAL CARE INSTRUCTIONS: 1. Follow through with your scheduled aftercare appointments. If unable to keep an appointment, please call to reschedule. 2. Take your medication only as prescribed. Medication should not be changed or stopped without the approval of your doctor. In the event of worsening symptoms or concerns about side effects, contact your doctor immediately. 3. Utilize new healthy coping skills, anger management skills, and stress management skills learned during your hospitalization. Journal feelings and process them with a support person. Identify stressors or situations that may result in relapse, deterioration or inappropriate behaviors and develop a plan to deal with those issues. 4. If your coping skills are ineffective and you are in crisis, contact your outpatient providers for direction. If unable to reach your providers, please call the [facility] CRISIS LINE AT , go to the [facility] walk-in center at [address], [address], [place], or go to the closest Emergency Room. 5. Avoid alcohol and un-prescribed drugs. 6. You have been provided with the Mental Health Advance Directives Pamphlet for your review. 7. Your condition is stable for discharge to outpatient level of care, but recovery is an ongoing process. Ifthoughts to harm yourself or others return, follow the safety plan developed during your stay. Planning for a safe return home includes securing weapons. Our treatment team recommends weaponsbe removed from the home until your outpatient provider reassesses your progress. In rare cases where the items themselvescannot be removed, guns and ammunitionshould be secured separatelyand keys stored by a reliable personoutside of the home. If you were admitted on an involuntary commitment, the police or other legal authorities may be involved in this process. AFTERCARE APPOINTMENTS: * Please call your insurance company prior to your scheduled appointment to confirm your aftercare providers are covered. Take your insurance information to your appointments. WHO TO CALL AND WHEN: Medical Emergencies: For questions or emergencies related to your hospital stay, please contact the Inpatient Behavioral Health Unit at [phone]. A psychiatric aides teacher is on-call 18/03 for the Behavioral Health Unit for emergencies At any time you feel your situation is an emergency, you may also call 911 immediately. [place] Crisis Line: [phone] Pending Studies at Discharge: No Stand-Alone Forms: My [facility] Medications and DC Order Prescriptions: New gabapentin 300 mg capsule 300 mg PO HS PRN (Reason: insomnia) 30 Days Qty: 30 0RF Rx Instructions: If Vistaril is ineffective for sleep can try additional dose of gabapentin 300mg at bedtime with scheduled gabapentin 300mg for a total bedtime dose of 600mg. Continued famotidine 20 mg Tablet 20 mg PO BID Eliquis 5 mg tablet 5 mg PO AMHS propranolol 40 mg tablet 40 mg PO BID omeprazole 40 mg capsule,delayed release(DR/EC) 40 mg PO QAM levothyroxine 50 mcg tablet 50 mcg PO DAILY naltrexone 50 mg tablet 50 mg PO DAILY doxepin 25 mg capsule 25 mg PO HS lorazepam 0.5 mg Tablet 0.5 mg PO Q6H PRN (Reason: anxiety) Qty: 15 0RF lithium carbonate 600 mg capsule 600 mg PO HS Qty: 30 0RF lithium carbonate 300 mg capsule 300 mg PO DAILY Qty: 30 0RF haloperidol 5 mg Tablet 10 mg PO BID Qty: 120 0RF hydroxyzine HCl 50 mg tablet 50 mg PO HSZ PRN (Reason: insomnia) 30 Days Qty: 15 0RF gabapentin 300 mg capsule 300 mg PO TID lacosamide [Vimpat] 50 mg Tablet 100 mg PO BID Qty: 120 0RF Discharge Orders: Discharge Order (Routine); Ordered 03/06/24 Ordered By: Alma Rosa Yaenz/Other Patient Handouts: Suicide Warning What To Do, Suicide Know Self Warnings Admission Data Admit Date/Time: 03/03/24 12:45 Attending Provider: Alma Rosa Mendez Admit Provider: Alma Rosa Mendez Primary Care Provider: Kinsey Chaparro Coding Level of Care Code 82761 D/C day mgmt > 30 min Diagnoses Depression F32.A Borderline personality disorder F60.3 Suicidal thoughts R45.851 Insomnia G47.00 Asplenia Q89.01 Post traumatic stress disorder (PTSD) F43.10 MDD (major depressive disorder), recurrent, in partial remission F33.41
[2024-03-06 09:17] LABS: Creatinine Clr Calc Pharmacy 100.9 ml/min; Est GFR (African American) 113.6 ml/min
[2024-03-06 16:21] VITALS: PULSE 67
== END 2024-03-06 17:54 | disposition home or self-care (01) | DRG 885 ==
LOC: ED 10:34 → 3S 12:45 → ED 12:58

== ENCOUNTER 2024-03-17 20:58 | Observation (INO) ==
[2024-03-17 22:11] LABS: Acetaminophen < 3 ug/ml (10-30); Salicylate < 3.0 mg/dl (3.0-30)
[2024-03-17 22:12] LABS: Hematocrit (blood only) 37.5 % (37.0-47.0); Mean Corpuscular Hemoglobin 30.9 pg (25.0-34.0); Mean Corpuscular Hgb Conc 34.7 g/dL (32.0-36.0); Mean Corpuscular Volume 89.1 fL (80.0-100.0); Mean Platelet Volume 9.3 fL (9.4-12.4); Platelet Count 681 K/uL (130-400); RDW Coefficient of Variation 12.4 % (11.5-14.5); RDW Standard Deviation 40.7 fL (36.4-46.3); Red Blood Count 4.21 M/uL (4.20-5.40); White Blood Count 17.97 K/ul (4.8-10.8)
[2024-03-17 22:33] LABS: Basophils # (auto) 0.14 K/uL (0.00-0.20); Basophils % (auto) 0.8 %; Eosinophils # (auto) 0.56 K/uL (0.00-0.50); Eosinophils % (auto) 3.1 %; Immature Granulocytes # (auto) 0.04 K/uL (0.01-0.20); Immature Granulocytes % (auto) 0.2 %; Lymphocytes # (auto) 5.97 K/uL (1.20-3.40); Lymphocytes % (auto) 33.2 %; Neutrophils # (auto) 9.46 K/uL (1.40-6.50); Neutrophils % (auto) 52.7 %; Pappenheimer Bodies 2+
[2024-03-17 22:37] LABS: Pregnancy Test, Urine Negative (Negative)
[2024-03-17 22:38] LABS: Albumin Globulin Ratio 1.6 (0.9-2); Albumin Level 4.4 gm/dl (3.4-5.0); Bilirubin,Total 0.6 mg/dl (0.2-1.0); Creatinine Clr Calc Pharmacy 91.4 ml/min; Est GFR (African American) 100.3 ml/min; Est GFR (Non-African American) 86.5 ml/min; Globulin 2.8 gm/dl (2.5-4.0); Potassium 3.8 mmol/L (3.5-5.1); Total Protein 7.2 gm/dl (6.0-8.3)
[2024-03-17 22:41] LABS: Appearance Urine Clear (Clear); Bacteria Urine Automated None Seen (None Seen); Bilirubin Urine Negative (Negative); Blood Urine Negative (Negative); Cast Urine Automated 0-2 /lpf (0-2); Color Urine Yellow; Epithelial Cell Urine Auto 0-2 /hpf (0-2); Glucose Urine UA Negative (Negative); Ketones Urine Negative (Negative); Leukocyte Esterase Urine Trace (Negative); Nitrite Urine Negative (Negative); Protein Urine Negative (Negative); RBC Urine Automated 0-2 /hpf (0-2); Specific Gravity Urine 1.008 (1.000-1.030); Urobilinogen Urine Negative (Negative); WBC Urine Automated 0-5 /hpf (0-5); pH Urine 7.5 (4.5-7.5)
[2024-03-17 22:53] LABS: Thyroid Stimulating Hormone 8.243 uIu/ml (0.300-4.500)
[2024-03-17 23:15] LABS: Amphetamines+Metham, Urine Neg (Neg); Barbiturates, Urine Neg (Neg); Benzodiazepine, Urine Neg (Neg); Cocaine, Urine Neg (Neg); Fentanyl, Urine Neg (Neg); MDMA (Ecstacy), Urine Neg (Neg); Marijuana, Urine Neg (Neg); Methadone, Urine Neg (Neg); Opiate, Urine Neg (Neg); Phencyclidine, Urine Neg (Neg)
--- NOTE | 2024-03-17 23:48 | Emergency Department Note ---
History of Present Illness General Chief complaint: Mental Health Evaluation Stated complaint: MENTAL HEALTH EVAL Time Seen by Provider: 03/17/24 21:09 History of Present Illness Provider complaint: Mental health evaluation 23-year-old female presents emergency department for suicidal ideation mental health evaluation. Patient states she has been having thoughts of wanting kill her cell. Patient states she plans on doing this by sitting at rest. Patient denies any ingestions. She denies any access to any firearms. Home Medications Medication Instructions Recorded Confirmed Type apixaban 5 mg tablet (Eliquis) 5 mg PO AMHS 07/27/22 03/17/24 History propranolol 40 mg tablet 40 mg PO BID 07/27/22 03/17/24 History famotidine 20 mg tablet 20 mg PO BID 10/13/22 03/17/24 History omeprazole 40 mg capsule,delayed 40 mg PO QAM 01/23/23 03/17/24 History release levothyroxine 50 mcg tablet 50 mcg PO DAILY 04/08/23 03/17/24 History doxepin 25 mg capsule 25 mg PO HS 08/30/23 03/17/24 History naltrexone 50 mg tablet 50 mg PO DAILY 08/30/23 03/17/24 History gabapentin 300 mg capsule 300 mg PO TID 12/09/23 03/17/24 History lacosamide 50 mg tablet (Vimpat) 100 mg (2 x 50 mg) PO BID #120 tabs 12/11/23 03/17/24 Rx haloperidol 5 mg tablet 10 mg (2 x 5 mg) PO BID #120 tabs 01/29/24 03/17/24 Rx lithium carbonate 300 mg capsule 300 mg PO DAILY #30 caps 01/29/24 03/17/24 Rx lithium carbonate 600 mg capsule 600 mg PO HS #30 caps 01/29/24 03/17/24 Rx lorazepam 0.5 mg tablet 0.5 mg PO Q6H PRN anxiety #15 tabs 01/29/24 03/17/24 Rx gabapentin 300 mg capsule 300 mg PO HS PRN insomnia 30 days 03/06/24 03/17/24 Rx #30 caps hydroxyzine HCl 50 mg tablet 50 mg PO HSZ PRN insomnia 30 days 03/06/24 03/17/24 Rx #15 tabs Allergies Allergy/AdvReac Type Severity Reaction Status Date / Time vancomycin Allergy Intermediate Red/Itchy Verified 12/09/23 20:24 skin Past Med/Surg History Problem List (Updated 03/18/24 @ 02:23 by Christopher Wiley MD) Depression with suicidal ideation (Acute) Post traumatic stress disorder (PTSD) Insomnia Suicidal thoughts (Acute) MDD (major depressive disorder), recurrent, in partial remission Borderline personality disorder Asplenia (Acute) Medical History Seizure-like activity COVID-19 Suicidal ideation Elevated platelet count Elevated LFTs Mesenteric adenitis Acute vascular insufficiency of intestine Portal vein thrombosis Auditory hallucinations Spherocytosis Involuntary commitment Depression with suicidal ideation MDD (major depressive disorder), recurrent, severe, with psychosis Depression with suicidal ideation Eating disorder, unspecified Suicidal ideation Major depressive disorder with psychotic features Major depression Intermittent asthma 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 Surgical History Hx of craniotomy History of splenectomy Family History Denies family history of Coronary heart disease Social History Smoking Status: Never smoker Second Hand Exposure: No; Do You Dip or Chew Tobacco: No; Hx Alcohol Use: No Hx Substance Use: No Preferred Language: [place] Communication Ability: Effective 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 Beliefs That Will Affect Care: None marital status: Current Living Situation: Spouse and Family How many Children do You have: 0 Feels Safe at Home: Yes Gender Identity: Female Assistive Devices: Glasses Physical Exam Vital Signs Vital Signs - 24 hr 03/17/24 21:02 03/17/24 22:57 03/17/24 23:48 Temperature 36.9 C 36.7 C Temperature Source Temporal Artery Scan Oral Pulse Rate 70 Pulse Rate [Finger] 78 Respiratory Rate 18 16 Respiratory Effort / Characteristics Non-Labored Spontaneous Respiratory Depth Normal Blood Pressure 115/80 Blood Pressure [Right Arm] 103/59 L Blood Pressure Mean 91 Blood Pressure Mean [Right Arm] 73 Blood Pressure Position Sitting Pulse Oximetry 97 94 Oxygen Delivery Method Room Air Room Air Sepsis Recent Fever Within 48 Hours No Sepsis New/Unexplained Change in Mental Status N/A Sepsis Action Taken by Nursing No Action Required 03/18/24 01:00 Temperature Temperature Source Pulse Rate Pulse Rate [Finger] Respiratory Rate 16 Respiratory Effort / Characteristics Respiratory Depth Normal Blood Pressure Blood Pressure [Right Arm] Blood Pressure Mean Blood Pressure Mean [Right Arm] Blood Pressure Position Pulse Oximetry Oxygen Delivery Method Sepsis Recent Fever Within 48 Hours Sepsis New/Unexplained Change in Mental Status Sepsis Action Taken by Nursing Physical Exam GENERAL: oriented to person, place, and time. appears well-developed and well- nourished. HENT: Exam performed. - Head: Normocephalic and atraumatic. EYES: Conjunctivae and EOM are normal. Right eye exhibits no discharge. Left eye exhibits no discharge. No scleral icterus. NECK: Normal range of motion. Neck supple. No JVD present. CV: Normal rate, regular rhythm, normal heart sounds and intact distal pulses. There is no peripheral edema. Palpable radial pulses bue. PULM/CHEST: Effort normal and breath sounds normal. No respiratory distress. No stridor. no wheezes. no rales. ABD: The abdomen is soft. There is no tenderness. NEURO: Motor and sensation grossly intact. SKIN: Skin is warm and dry. He is not diaphoretic. PSYCH: Depressed. Bizarre affect. Suicidal ideation. Course Course 2108: The patient was evaluated in room A7. A complete history and physical exam was performed 2244: Vital signs stable. Labs show white blood cell count of 17.97. Patient has a history of chronic leukocytosis status post splenectomy. Patient had leukocytosis similarly for psych evaluation on November 23. Patient medically cleared. Awaiting psychiatric evaluation. 0220: Vital signs stable. Patient afebrile. Psychiatric case management states multiple psychiatric facilities have declined the patient secondary to elevated TSH and white blood cell count. White blood cell count elevation is chronic, patient is afebrile no clinical concern for infection given patient's only chief complaint was that she wants to cut her wrists and commit suicide. Patient clinically does not have any evidence of thyroid storm. [facility] can evaluate in the morning and that patient can have repeat labs in the morning. Dr. Dorado made aware of the plan and states he will evaluate the patient. Administered Medications Sodium Chloride (Nss) 1,000 mls @ 999 mls/hr IV .Q1H1M ONE Stop: 03/18/24 02:46 Last Admin: 07/24/24 01:58 Dose: 999 mls/hr Documented By: AN Medical Decision Making Laboratory Data Attestation: I reviewed the patient's lab results. 03/17/24 21:19 03/17/24 21:19 Lab Results 03/17/24 03/17/24 Range/Units 21:19 Unknown WBC 17.97 H (4.8-10.8) K/ul RBC 4.21 (4.20-5.40) M/uL Hgb 13.0 (12.0-16.0) g/dl Hct 37.5 (37.0-47.0) % MCV 89.1 (80.0-100.0) fL MCH 30.9 (25.0-34.0) pg MCHC 34.7 (32.0-36.0) g/dL RDW Std Deviation 40.7 (36.4-46.3) fL RDW Coeff of Toni 12.4 (11.5-14.5) % Plt Count 681 H (130-400) K/uL MPV 9.3 L (9.4-12.4) fL Immature Gran % (Auto) 0.2 % Neut % (Auto) 52.7 % Lymph % (Auto) 33.2 % [place] % (Auto) 10.0 % Eos % (Auto) 3.1 % Baso % (Auto) 0.8 % Neut # (Auto) 9.46 H (1.40-6.50) K/uL Lymph # (Auto) 5.97 H (1.20-3.40) K/uL [place] # (Auto) 1.80 H (0.11-0.59) K/uL Eos # (Auto) 0.56 H (0.00-0.50) K/uL Baso # (Auto) 0.14 (0.00-0.20) K/uL Immature Gran # (Auto) 0.04 (0.01-0.20) K/uL Pappenheimer Bodies 2+ Sodium 137 (136-145) mmol/L Potassium 3.8 (3.5-5.1) mmol/L Chloride 105 (98-107) mmol/L Carbon Dioxide 25 (21-32) mmol/L Anion Gap 7 (3-11) BUN 12 (6-23) mg/dl Creatinine 0.92 (0.6-1.2) mg/dl Est Cr Clr Drug Dosing 91.4 ml/min Est GFR ( Amer) 100.3 ml/min Est GFR (Non-Af Amer) 86.5 ml/min BUN/Creatinine Ratio 13.0 (10-20) Glucose 86 (70-99(Fasting)) mg/dl Calcium 10.0 (8.6-10.3) mg/dl Total Bilirubin 0.6 (0.2-1.0) mg/dl AST 25 (13-39) U/L ALT 37 (7-52) U/L Alkaline Phosphatase 102 (34-104) U/L Total Protein 7.2 (6.0-8.3) gm/dl Albumin 4.4 (3.4-5.0) gm/dl Globulin 2.8 (2.5-4.0) gm/dl Albumin/Globulin Ratio 1.6 (0.9-2) TSH 8.243 H (0.300-4.500) uIu/ml Free T4 1.00 (0.61-1.60) ng/dl Urine Color Yellow Urine Appearance Clear (Clear) Urine pH 7.5 (4.5-7.5) Ur Specific [place] 1.008 (1.000-1.030) Urine Protein Negative (Negative) Urine Glucose (UA) Negative (Negative) Urine Ketones Negative (Negative) Urine Blood Negative (Negative) Urine Nitrite Negative (Negative) Urine Bilirubin Negative (Negative) Urine Urobilinogen Negative (Negative) Ur Leukocyte Esterase Trace H (Negative) Urine WBC (Auto) 0-5 (0-5) /hpf Urine RBC (Auto) 0-2 (0-2) /hpf U Hyaline Cast (Auto) 0-2 (0-2) /lpf U Epithel Cells (Auto) 0-2 (0-2) /hpf Urine Bacteria (Auto) None Seen (None Seen) Urine Test Negative (Negative) Salicylates < 3.0 L (3.0-30) mg/dl Urine Opiates Screen Neg (Neg) Ur Methadone, Qual Neg (Neg) Urine Fentanyl Screen Neg (Neg) Acetaminophen < 3 L (10-30) ug/ml Urine Barbiturates Neg (Neg) Ur Phencyclidine (PCP) Neg (Neg) U Amphetamin/Meth Scrn Neg (Neg) MDMA (Ecstasy) Screen Neg (Neg) U Benzodiazepines Scrn Neg (Neg) Ur Cocaine Metabolite Neg (Neg) U Marijuana (THC) Screen Neg (Neg) Ethyl Alcohol mg/dL < 10.0 (<10.0) mg/dl SARS-CoV-2, RNA, NAAT NEGATIVE (NEGATIVE) [facility] Narrative 2108: The patient was evaluated in room A7. A complete history and physical exam was performed 2244: Vital signs stable. Labs show white blood cell count of 17.97. Patient has a history of chronic leukocytosis status post splenectomy. Patient had leukocytosis similarly for psych evaluation on November 23. Patient medically cleared. Awaiting psychiatric evaluation. 0220: Vital signs stable. Patient afebrile. Psychiatric case management states multiple psychiatric facilities have declined the patient secondary to elevated TSH and white blood cell count. White blood cell count elevation is chronic, patient is afebrile no clinical concern for infection given patient's only chief complaint was that she wants to cut her wrists and commit suicide. Patient clinically does not have any evidence of thyroid storm. Patient will be admitted to the [facility] hospitalist team so that psychiatry can evaluate in the morning and that patient can have repeat labs in the morning. Dr. Dorado made aware of the plan and states he will evaluate the patient. Impression & Plan Depression with suicidal ideation Discharge Plan Visit Data Chief Complaint: Mental Health Evaluation Stated Complaint: MENTAL HEALTH EVAL ED Provider: Christopher Wiley Discharge Problem: Depression with suicidal ideation Patient Disposition: Being Evaluated by Hospitalist Forms Stand Alone Forms: [facility] [place], Suicide Prevention Resources Prescriptions Prescriptions: No Action famotidine 20 mg Tablet 20 mg PO BID Eliquis 5 mg tablet 5 mg PO AMHS propranolol 40 mg tablet 40 mg PO BID omeprazole 40 mg capsule,delayed release(DR/EC) 40 mg PO QAM levothyroxine 50 mcg tablet 50 mcg PO DAILY naltrexone 50 mg tablet 50 mg PO DAILY doxepin 25 mg capsule 25 mg PO HS lorazepam 0.5 mg Tablet 0.5 mg PO Q6H PRN (Reason: anxiety) Qty: 15 0RF lithium carbonate 600 mg capsule 600 mg PO HS Qty: 30 0RF lithium carbonate 300 mg capsule 300 mg PO DAILY Qty: 30 0RF haloperidol 5 mg Tablet 10 mg PO BID Qty: 120 0RF gabapentin 300 mg capsule 300 mg PO HS PRN (Reason: insomnia) 30 Days Qty: 30 0RF Rx Instructions: If Vistaril is ineffective for sleep can try additional dose of gabapentin 300mg at bedtime with scheduled gabapentin 300mg for a total bedtime dose of 600mg. hydroxyzine HCl 50 mg tablet 50 mg PO HSZ PRN (Reason: insomnia) 30 Days Qty: 15 0RF gabapentin 300 mg capsule 300 mg PO TID lacosamide [Vimpat] 50 mg Tablet 100 mg PO BID Qty: 120 0RF Referrals Referrals: Kinsey Chaparro PA-C [Primary Care Provider] -
[2024-03-18] MEDS: SODIUM CHLORIDE 0.9% 1,000 ML IV ONE (01:58)
--- NOTE | 2024-03-18 04:18 | History & Physical Report ---
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 Was recently in the behavioral unit. She was brought in because of thoughts to kill herself. Patient states she still has those thoughts. Denies any headache. No runny nose. Has some sore throat and mild cough. Denies fevers. No back pain. No chest pain. No shortness of breath. No nausea. No abdominal pain. Normal bowel and bladder movements. Current resting comfortably and hemodynamically stable. Suicidal thoughts History of suicidal ideations Suicidal precautions One-on-one Psychiatry consult Leukocytosis History of splenectomy UA is negative Will follow chest x-ray and blood cultures Follow repeat labs History of thrombosis of mesenteric vein History of portal vein thrombosis On Eliquis History of moyamoya disease S/p STA-MCA bypass History of severe depression Schizoaffective disorder depression type PTSD Borderline personality disorder Continue home meds Follow lithium levels Medication adjustment as per psychiatry History of seizure like activity On lacosamide GERD On famotidine and omeprazole DVT prophylaxis On Eliquis Disposition Medical floor Full code History of Present Illness Chief Complaint: Suicidal ideation, leukocytosis Primary Care Provider: Kinsey Chaparro PA-C 23-year-old female with past med history significant for hyperprolactinemia, intermittent asthma, allergic rhinitis, history of thrombosis of mesenteric vein, history of portal vein thrombosis, 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 Was recently in the behavioral unit. She was brought in because of thoughts to kill herself. Patient states she still has those thoughts. Denies any headache. No runny nose. Has some sore throat and mild cough. Denies fevers. No back pain. No chest pain. No shortness of breath. No nausea. No abdominal pain. Normal bowel and bladder movements. Current resting comfortably and hemodynamically stable. Past medical history. As mentioned above Past surgical history. Catheter placement internal carotid artery. Fusion of skull arteries. Nasal surgery for deviated septum. Removal of total splint. Sinus surgery. Spinal fluid tap. Drainage. Stereotactic cranial intradural n avigation. Vertebral artery catheter placement. Social history. . No smoking. Alcohol rarely. No drug use. Family history. Father has allergies. Mother has allergies. Maternal grandfa ther had coronary disease. Maternal grandmother had dementia. Allergies Allergy/AdvReac Type Severity Reaction Status Date / Time vancomycin Allergy Intermediate Red/Itchy Verified 12/09/23 20:24 skin Home Medications Medication Instructions Recorded Confirmed Type apixaban 5 mg tablet (Eliquis) 5 mg PO AMHS 07/27/22 03/17/24 History propranolol 40 mg tablet 40 mg PO BID 07/27/22 03/17/24 History famotidine 20 mg tablet 20 mg PO BID 10/13/22 03/17/24 History omeprazole 40 mg capsule,delayed 40 mg PO QAM 01/23/23 03/17/24 History release levothyroxine 50 mcg tablet 50 mcg PO DAILY 04/08/23 03/17/24 History doxepin 25 mg capsule 25 mg PO HS 08/30/23 03/17/24 History naltrexone 50 mg tablet 50 mg PO DAILY 08/30/23 03/17/24 History gabapentin 300 mg capsule 300 mg PO TID 12/09/23 03/17/24 History lacosamide 50 mg tablet (Vimpat) 100 mg (2 x 50 mg) PO BID #120 tabs 12/11/23 03/17/24 Rx haloperidol 5 mg tablet 10 mg (2 x 5 mg) PO BID #120 tabs 01/29/24 03/17/24 Rx lithium carbonate 300 mg capsule 300 mg PO DAILY #30 caps 01/29/24 03/17/24 Rx lithium carbonate 600 mg capsule 600 mg PO HS #30 caps 01/29/24 03/17/24 Rx lorazepam 0.5 mg tablet 0.5 mg PO Q6H PRN anxiety #15 tabs 01/29/24 03/17/24 Rx gabapentin 300 mg capsule 300 mg PO HS PRN insomnia 30 days 03/06/24 03/17/24 Rx #30 caps hydroxyzine HCl 50 mg tablet 50 mg PO HSZ PRN insomnia 30 days 03/06/24 03/17/24 Rx #15 tabs Past Med/Surg History Problem List (Updated 03/18/24 @ 02:23 by Christopher Wiley MD) Depression with suicidal ideation (Acute) Post traumatic stress disorder (PTSD) Insomnia Suicidal thoughts (Acute) MDD (major depressive disorder), recurrent, in partial remission Borderline personality disorder Asplenia (Acute) Medical History Seizure-like activity COVID-19 Suicidal ideation Elevated platelet count Elevated LFTs Mesenteric adenitis Acute vascular insufficiency of intestine Portal vein thrombosis Auditory hallucinations Spherocytosis Involuntary commitment Depression with suicidal ideation MDD (major depressive disorder), recurrent, severe, with psychosis Depression with suicidal ideation Eating disorder, unspecified Suicidal ideation Major depressive disorder with psychotic features Major depression Intermittent asthma 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 Surgical History Hx of craniotomy History of splenectomy Family History Denies family history of Coronary heart disease Social History Smoking Status: Never smoker Second Hand Exposure: No; Do You Dip or Chew Tobacco: No; Hx Alcohol Use: No Hx Substance Use: No Preferred Language: [place] Communication Ability: Effective 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 Lungs- clear to auscultation no wheezing or crackles Heart- regular rhythm; no murmur, no gallop. Abdomen- normal bowel sounds, soft, nontender, no distension. Extremities- no pretibial edema, no erythema seen Neuro- alert, oriented EOMI; no facial palsy; no dysarthria; moves extremities Results & Data Results & Data Vital Signs (Past 12 Hours) Vital Signs Temp Pulse Pulse Resp BP BP Pulse Ox 03/18/24 01:00 16 03/17/24 23:48 78 16 103/59 L 94 03/17/24 22:57 36.7 C 03/17/24 21:02 36.9 C 70 18 115/80 97 O2 Del Method 03/18/24 01:00 03/17/24 23:48 Room Air 03/17/24 22:57 03/17/24 21:02 Room Air Diagnostic Findings Laboratory Results WBC 17.97 K/ul (4.8-10.8) H 03/17/24 21:19 RBC 4.21 M/uL (4.20-5.40) 03/17/24 21:19 Hgb 13.0 g/dl (12.0-16.0) 03/17/24 21:19 Hct 37.5 % (37.0-47.0) 03/17/24 21:19 MCV 89.1 fL (80.0-100.0) 03/17/24 21:19 MCH 30.9 pg (25.0-34.0) 03/17/24 21:19 MCHC 34.7 g/dL (32.0-36.0) 03/17/24 21:19 RDW Std Deviation 40.7 fL (36.4-46.3) 03/17/24 21:19 RDW Coeff of Toni 12.4 % (11.5-14.5) 03/17/24 21:19 Plt Count 681 K/uL (130-400) H 03/17/24 21:19 MPV 9.3 fL (9.4-12.4) L 03/17/24 21:19 Immature Gran % (Auto) 0.2 % 03/17/24 21:19 Neut % (Auto) 52.7 % 03/17/24 21:19 Lymph % (Auto) 33.2 % 03/17/24 21:19 [place] % (Auto) 10.0 % 03/17/24 21:19 Eos % (Auto) 3.1 % 03/17/24 21:19 Baso % (Auto) 0.8 % 03/17/24 21:19 Neut # (Auto) 9.46 K/uL (1.40-6.50) H 03/17/24 21:19 Lymph # (Auto) 5.97 K/uL (1.20-3.40) H 03/17/24 21:19 [place] # (Auto) 1.80 K/uL (0.11-0.59) H 03/17/24 21:19 Eos # (Auto) 0.56 K/uL (0.00-0.50) H 03/17/24 21:19 Baso # (Auto) 0.14 K/uL (0.00-0.20) 03/17/24 21:19 Immature Gran # (Auto) 0.04 K/uL (0.01-0.20) 03/17/24 21:19 Pappenheimer Bodies 2+ 03/17/24 21:19 Sodium 137 mmol/L (136-145) 03/17/24 21:19 Potassium 3.8 mmol/L (3.5-5.1) 03/17/24 21:19 Chloride 105 mmol/L (98-107) 03/17/24 21:19 Carbon Dioxide 25 mmol/L (21-32) 03/17/24 21:19 Anion Gap 7 (3-11) 03/17/24 21:19 BUN 12 mg/dl (6-23) 03/17/24 21:19 Creatinine 0.92 mg/dl (0.6-1.2) 03/17/24 21:19 Est Cr Clr Drug Dosing 91.4 ml/min 03/17/24 21:19 Est GFR ( Amer) 100.3 ml/min 03/17/24 21:19 Est GFR (Non-Af Amer) 86.5 ml/min 03/17/24 21:19 BUN/Creatinine Ratio 13.0 (10-20) 03/17/24 21:19 Glucose 86 mg/dl (70-99(Fasting)) 03/17/24 21:19 Calcium 10.0 mg/dl (8.6-10.3) 03/17/24 21:19 Total Bilirubin 0.6 mg/dl (0.2-1.0) 03/17/24 21:19 AST 25 U/L (13-39) 03/17/24 21:19 ALT 37 U/L (7-52) 03/17/24 21:19 Alkaline Phosphatase 102 U/L (34-104) 03/17/24 21:19 Total Protein 7.2 gm/dl (6.0-8.3) 03/17/24 21:19 Albumin 4.4 gm/dl (3.4-5.0) 03/17/24 21:19 Globulin 2.8 gm/dl (2.5-4.0) 03/17/24 21:19 Albumin/Globulin Ratio 1.6 (0.9-2) 03/17/24 21:19 TSH 8.243 uIu/ml (0.300-4.500) H 03/17/24 21:19 Free T4 1.00 ng/dl (0.61-1.60) 03/17/24 21:19 Urine Color Yellow 03/17/24 Unknown Urine Appearance Clear (Clear) 03/17/24 Unknown Urine pH 7.5 (4.5-7.5) 03/17/24 Unknown Ur Specific [place] 1.008 (1.000-1.030) 03/17/24 Unknown Urine Protein Negative (Negative) 03/17/24 Unknown Urine Glucose (UA) Negative (Negative) 03/17/24 Unknown Urine Ketones Negative (Negative) 03/17/24 Unknown Urine Blood Negative (Negative) 03/17/24 Unknown Urine Nitrite Negative (Negative) 03/17/24 Unknown Urine Bilirubin Negative (Negative) 03/17/24 Unknown Urine Urobilinogen Negative (Negative) 03/17/24 Unknown Ur Leukocyte Esterase Trace (Negative) H 03/17/24 Unknown Urine WBC (Auto) 0-5 /hpf (0-5) 03/17/24 Unknown Urine RBC (Auto) 0-2 /hpf (0-2) 03/17/24 Unknown U Hyaline Cast (Auto) 0-2 /lpf (0-2) 03/17/24 Unknown U Epithel Cells (Auto) 0-2 /hpf (0-2) 03/17/24 Unknown Urine Bacteria (Auto) None Seen (None Seen) 03/17/24 Unknown Urine Test Negative (Negative) 03/17/24 Unknown Salicylates < 3.0 mg/dl (3.0-30) L 03/17/24 21:19 Urine Opiates Screen Neg (Neg) 03/17/24 Unknown Ur Methadone, Qual Neg (Neg) 03/17/24 Unknown Urine Fentanyl Screen Neg (Neg) 03/17/24 Unknown Acetaminophen < 3 ug/ml (10-30) L 03/17/24 21:19 Urine Barbiturates Neg (Neg) 03/17/24 Unknown Ur Phencyclidine (PCP) Neg (Neg) 03/17/24 Unknown U Amphetamin/Meth Scrn Neg (Neg) 03/17/24 Unknown MDMA (Ecstasy) Screen Neg (Neg) 03/17/24 Unknown U Benzodiazepines Scrn Neg (Neg) 03/17/24 Unknown Ur Cocaine Metabolite Neg (Neg) 03/17/24 Unknown U Marijuana (THC) Screen Neg (Neg) 03/17/24 Unknown Ethyl Alcohol mg/dL < 10.0 mg/dl (<10.0) 03/17/24 21:19 SARS-CoV-2, RNA, NAAT NEGATIVE (NEGATIVE) 03/17/24 21:19 Code Status & VTE Plan VTE Prophylaxis Plan VTE Prophylaxis will be ordered: Yes
[2024-03-18] MEDS ORDERED: GABAPENTIN 300 MG CAP PO PRN (06:49)
[2024-03-18] MEDS ORDERED: LORazepam 0.5 MG TAB PO PRN (06:49)
[2024-03-18] MEDS ORDERED: hydrOXYzine HCl 25 MG TAB PO PRN (06:49)
[2024-03-18] MEDS ORDERED: ACETAMINOPHEN 325 MG TAB PO PRN (06:49)
[2024-03-18] MEDS: SODIUM CHLORIDE 0.9% 1,000 ML IV SCH (07:21)
--- OUTSIDE RECORDS SUMMARY | 2024-03-18 07:49 | External Medical Summary | Summary of Care ---
Author Name Unknown Organization [facility] Address [address] [facility] [place] [address] Phone [phone] Care Team Providers Care Apple Picker Name Role Phone Kinsey Chaparro ZAYRA Primary Care Provider [phone] Reason for Visit * Reason Comments eRx-Medication Refill Encounter Details Date Type Department Care Team (Late st Contact Info) Description 03/09/2024 Refill Neurology [facility] [place] [address] [facility] [place] [address] Miguel Gonzalez MD [address] [place] [address] Allergies Active Allergy Reactions Criticality Noted Date Comments Vancomycin Itching 08/03/2019 Redness of skin documented as of this encounter (statuses as of 03/10/2024) Medications Medication Sig Dispensed Refills Start Date End Date Status Albuterol Sulfate HFA 108 (90 Base) MCG/ACT Inhalation Aerosol Solution Inhale by mouth 2 Puffs every 4 hours as needed (dyspnea). INHALE TWO PUFFS BY MOUTH EVERY 4 HOURS NEEDED FOR DYSPNEA 18 g 4 03/09/20 22 Active Doxepin HCl 25 MG Oral Capsule (SINEquan) Take 1 Capsule by mouth at bedtime. 08/02/20 23 Active LORazepam 1 MG Oral Tablet (Ativan) Take 1 Tablet by mouth every 8 hours as needed. Active Ondansetron 4 MG Oral Tablet Disintegrating (Zofran) Place 1 Tablet on tongue every 8 hours as needed for Nausea. 40 Tablet 08/13/20 23 Active Apixaban 5 MG Oral Tablet (Eliquis) Take 1 Tablet by mouth in the morning and 1 Tablet before bedtime. 60 Tablet 4 08/13/20 Active Levothyroxine Sodium 50 MCG Oral Tablet (Levoxyl) Take 1 Tablet by mouth in the morning. (at least 30 min prior to breakfast or other meds). 30 Tablet 6 08/13/20 23 Active Propranolol HCl 40 MG Oral Tablet (Inderal)Indicatio ns:Headache, unspecified headache type TAKE ONE TABLET BY MOUTH TWICE A DAY IN THE MORNING AND BEFORE BEDTIME 60 Tablet 4 08/13/20 23 Active Reyvow 50 MG Oral Tablet (Lasmiditan Succinate) 1 at onset of migraine. Max 1 dose in 24 hours. 15 Tablet 08/16/20 23 Active Dicyclomine HCl 10 MG Oral Capsule (Bentyl)Indication s:Abdominal pain, generalized Take 1 Capsule by mouth 4 times a day as needed for Pain, Mild, Pain, Moderate or Cramping. For abdominal pain 360 Capsule 1 08/16/20 23 Active Norethindrone 0.35 MG Oral TabletIndications: PMDD (premenstrual dysphoric disorder) Take 1 Tablet by mouth in the morning. 84 Tablet 1 10/08/19 24 Active Gabapentin 300 MG Oral Capsule (Neurontin) Take 1 Capsule by mouth in the morning and 1 Capsule at noon and 1 Capsule before bedtime. 12/17/19 24 Active Benztropine Mesylate 0.5 MG Oral Tablet (Cogentin) Take 1 Tablet by mouth in the morning and 1 Tablet before bedtime. 12/04/19 24 Active Lacosamide 50 MG Oral Tablet (Vimpat) Take 2 Tablets by mouth in the morning and 2 Tablets before bedtime. 120 Tablet 2 12/30/19 24 Active Famotidine 20 MG Oral Tablet (Pepcid)Indication s:Dyspepsia Take 1 Tablet by mouth in the morning and 1 Tablet before bedtime. 180 Tablet 1 01/24/20 24 Active Omeprazole 40 MG Oral Capsule Delayed Release (PriLOSEC)Indicati ons:Dyspepsia TAKE ONE CAPSULE BY MOUTH EVERY MORNING 1 HOUR BEFORE THE FIRST MEAL OF THE DAY 90 Capsule 1 01/24/20 24 Active Emgality 120 MG/ML Subcutaneous Solution Auto-injector (Galcanezumab-gnlm ) INJECT 1 ML SUBCUTANEOUSLY ONCE EVERY MONTH 1 mL 1 03/10/20 24 Active Emgality 120 MG/ML Subcutaneous Solution Auto-injector (Galcanezumab-gnlm ) Inject 1 mL under the skin Every Month. 1 mL 2 12/19/19 24 024 Discontinued documented as of this encounter (statuses as of 03/10/2024) Active Problems Problem Noted Date Diagnosed Date [...] Schizoaffective disorder, depressive type 2020 Overview: Per G 11/09/20. PTSD (post-traumatic stress disorder) 12/21/2020 Overview: [...] of pre-eclampsia; During , please notify your boat crew deck hand if you experience headache, changes in vision, [...] as of this encounter (statuses as of 03/10/2024) Resolved Problems Problem Noted Date Diagnosed Date Resolved Date Food insecurity 11/05/2022 03/07/2023 Overview: Per [employer] [facility] Protocol Other problems related to [...] and proper diet. Consider referral to a slab lifting supervisor prior to conception for maternal conditions [...] as of this encounter (statuses as of 03/10/2024) Immunizations Name Administration Dates Next Due COVID-19 mRNA, LNP-s, No Pre serve, 2-Dose Series ([employer]) 12/30/2020,12/07/2020 DTaP Dipth/Tet/Acell Pertussis (Infanrix), Peds 03/08/2003,03/19/2000 HIB PRP-T, 4 Dose, PF, IM (H iberix, ActHib) 12/30/2019(Deferred: Contraindication - to be given prior to discharge per dr henedrson) HPV Vaccine, 9-Valent 05/26/2020,01/07/2020,09/27 Hepatitis A, Ped/Adol., 18 y ear and below, 2-Dose 06/24/2012,03/26/2011 Hepatitis B, 0-19 yrs 12/26/1999,01/31/1999,10/1998 IPV [...] money to get more. Never true 08/29/2023 Childcare Answer Date Recorded Do you feel overwhelmed with taking care of a child, family member or friend? No 08/29/2023 Does your family need help f inding childcare? (Household - for ages 0-17 years) Not on file 08/29/2023 Clothing Answer Date Recorded Have you been unable to get clothing when it was really needed? No 08/29/2023 Is your family able to get c lothes or diapers when needed? (Household - for ages 0-17 years) Not on file 08/29/2023 Personal Safety Answer Date Recorded Do you feel unsafe or have concerns for your saf ety? No 08/29/2023 Do you have concerns for you r family's safety? (Household - for ages 0-17 years) Not on file 08/29/2023 Utilities Answer Date Recorded Do you have trouble paying y our heating, water, or electric bill? No 08/29/2023 Is your family able to pay t he heat, water, or electric bill? (Household - for ages 0-17 years) Not on file 08/29/2023 Does your family have access to good internet? (Household - for ages 0-17 years) Not on file 08/29/2023 Employment Status Answer Date Recorded Are you unemployed or without regular income? No 08/29/2023 Does the household have a re gular source of income? (Household - for ages 0-17 years) Not on file 08/29/2023 Social Connections Answer Date Recorded How often do you feel lonely or isolated from those around you? Sometimes 08/29/2023 Financial Resource Strain Answer Date R ecorded Do you have any trouble payi ng for your medications, or do you think you might in the future? No 08/29/2023 Does your family have troubl e paying for medicine? (Household - for ages 0-17 years) Not on file 08/29/2023 Transportation Needs Answer Date Record ed READ ONLY Do you have troubl e getting a ride to medical visits or work? Never True 08/29/2023 Does your family have a hard time getting a ride to doctors visits? (Household - for ages 0-17 years) Not on file 08/29/2023 Has lack of transportation k ept you from medical appointments, meetings, work, or from getting things needed for daily living? Check all that apply. (Adult - for ages 18 years and over) Not on file 08/29/2023 Do you (or your family) have trouble finding or paying for a ride (transportation)? (Household - for ages 0-17 years) Not on file 08/29/2023 Housing Stability Answer Date Recorded Do you currently live in a s helter or have no steady place to sleep at night? No 08/29/2023 READ ONLY Do you think you a re at risk of becoming homeless? No 08/29/2023 Does your family worry about paying for your home or becoming homeless? (Household - for ages 0-17 years) Not on file 0 08/29/2023 Are you homeless or worried that you might be in the future? (Adult - for ages 18 years and over) Not on file Are you (or your family) harleen eless or worried that you might be in the future? (Household - for ages 0-17 years) Not on file Food Insecurity Answer Date Recorded Do you need food for this week? No 08/29/2023 Are you able to get enough f ood for your family? (Household - for ages 0-17 years) Not on file 08/29/2023 Does your family need food t his week? (Household - for ages 0-17 years) Not on file 08/29/2023 Do you always have enough fo od for your family? (Household - for ages 0-17 years) Not on file 08/29/2023 Sex and Gender Information Value Date [...] encounter Miscellaneous Notes * Telephone Encounter - Lopez Hamlin RPh - 03/10/2024 11:47 AM EDTSigned Prescriptions: Disp Refills Emgality 120 MG/ML Subcutaneous Solution A*1 mL 1 Sig: INJECT 1 ML SUBCUTANEOUSLY ONCE EVERY MONTHAuthorizing Provider: MIGUEL GONZALEZ User: LOPEZ HAMLIN--- documented in this encounter Plan of Treatment Upcoming Encounters Date Type Department Care Team (Late st Contact Info) Description 03/31/2024 9:20 AM EDT Office Visit Neurology [facility] [place] [address] [facility], [place] [address] Cathi Wheeler PA-C [address] [facility] [place] [address] Scheduled Procedures Name Priority Associated Diagnoses Date/Ti [...] - 2022-2 4 season) 2023 12/30/2020, 12/07/2020 *SPIROMETRY ONCE FOR ASTHMA-ADULT 03/08/2024 Influenza Vaccine (FLU shot) (#1) 2024 06/20/2022, 05/18/2021, 05/06/2020, Additional history exists TSH 12/24/2024 12/25/2023, 12/2023, 05/22/2023, Additional history exists Depression Monitoring 12/26/2024 12/27/2023 DTaP,Tdap,and Td Vaccines (5 - Td or Tdap) 09/08/2031 09/08/2021, 03/26/2011, 03/08/2003, Additional history exists Pneumococcal Vaccine: Pediat rics (0 to 5 Years) and At-Risk Patients (6 to 64 Years) (3 of 3 - PPSV23 or PCV20) 11/27/2063 09/14/2019, 06/05/2011, 11/03/2007, Additional history exists Hepatitis B Vaccine Completed 12/26/1999, 01/31/1999, 1998 HPV (Gardasil) Vaccine Completed , 01/07/2020, 10/20/2019 Gonorrhea / Chlamydia Screen Discontinued , 06/27/2020, 02/08/2020, Additional history exists documented as of this encounter Medical Devices Implanted Type Area Retail Analyst Device Identifier Shelf Expiration Date Model / Serial / Lot Screw Ti Lo Pro Sd 3mm 400.833 - [id number] Implanted:Qty: 4 on 12/28/2019 by Linden Townsend MD at [facility] Right: Head [employer] 400.833 / / Description:no expiration da te - reprocessed set Screw Ti Lo Pro Sd 4mm 400.834 - [id number] Implanted:Qty: 4 on 12/28/2019 by Linden Townsend MD at [facility] [place] Right: Head [employer] 400.834 / / Description:no expiration da te - reprocessed set Plate Ti Lo Pro Str 2h 421.502 - [id number] Implanted:Qty: 4 on 12/28/2019 by Linden Townsend [...] Mike Doherty Spouse Emergency Contact Care Teams Apple Picker Relationship Specialty Start Date End Date Courtneynovember ZAYRA Buchanan [address] [facility] [place] [address] PCP - General Physician Atmospheric Sciences Professor 03/23/22 documented as of this encounter
[2024-03-18 08:13] LABS: Basophils % (auto) 0.8 %; Eosinophils % (auto) 3.9 %; Hematocrit (blood only) 36.8 % (37.0-47.0); Hemoglobin 12.8 g/dl (12.0-16.0); Immature Granulocytes % (auto) 0.3 %; Lymphocytes % (auto) 26.3 %; Mean Corpuscular Hgb Conc 34.8 g/dL (32.0-36.0); Mean Corpuscular Volume 89.1 fL (80.0-100.0); Mean Platelet Volume 8.7 fL (9.4-12.4); Monocytes % (auto) 10.4 %; Neutrophils % (auto) 58.3 %; Platelet Count 704 K/uL (130-400); RDW Coefficient of Variation 12.3 % (11.5-14.5); RDW Standard Deviation 40.1 fL (36.4-46.3); Red Blood Count 4.13 M/uL (4.20-5.40); White Blood Count 10.61 K/ul (4.8-10.8)
[2024-03-18 08:14] LABS: Basophils # (auto) 0.09 K/uL (0.00-0.20); Eosinophils # (auto) 0.41 K/uL (0.00-0.50); Immature Granulocytes # (auto) 0.03 K/uL (0.01-0.20); Lymphocytes # (auto) 2.79 K/uL (1.20-3.40); Neutrophils # (auto) 6.19 K/uL (1.40-6.50)
[2024-03-18 08:26] LABS: BUN Creatinine Ratio 13.8 (10-20); Calcium 9.1 mg/dl (8.6-10.3); Creatinine Clr Calc Pharmacy 105.1 ml/min; Est GFR (African American) 118.8 ml/min; Est GFR (Non-African American) 102.5 ml/min; Magnesium 2.1 mg/dl (1.7-2.4)
[2024-03-18] MEDS: LEVOTHYROXINE SODIUM 50 MCG TABLET PO SCH (08:36)
[2024-03-18] MEDS: APIXABAN 5 MG TABLET PO SCH (08:36)
[2024-03-18] MEDS: GABAPENTIN 300 MG CAP PO SCH (08:36)
[2024-03-18] MEDS: FAMOTIDINE 20 MG TAB PO SCH (08:36)
[2024-03-18] MEDS: PANTOprazole 40 MG TAB PO SCH (08:37)
[2024-03-18] MEDS: haloperidoL 5 MG TAB PO SCH (08:37)
[2024-03-18] MEDS: NALTREXONE HCL 50 MG TAB PO SCH (08:37)
[2024-03-18] MEDS: LITHIUM CARBONATE 300 MG TAB PO SCH (08:37)
[2024-03-18] MEDS: PROPRANOLOL HCL 20 MG TAB PO SCH (08:38)
[2024-03-18 08:41] LABS: Thyroid Stimulating Hormone 2.358 uIu/ml (0.300-4.500)
--- NOTE | 2024-03-18 10:21 | XRay Report ---
XR chest 1V portable CLINICAL HISTORY: Leukocytosis TECHNIQUE: Single frontal radiograph of the chest was obtained. Comparison: Comparison is made to chest radiograph 12/09/2023 FINDINGS: No lines and tubes are seen. The cardiomediastinal silhouette is normal. The lungs are clear. No evid ence of pleural effusion or pneumothorax. IMPRESSION: No acute abnormalities and in particular no radiographic evidence of pneumonia. ACT 112: Negative or not required by law. Electronically signed by: Rakesh Dimas M.D. 03/18/2024 10:20 AM
[2024-03-18] MEDS: LACOSAMIDE 50 MG TABLET PO SCH (10:37)
--- NOTE | 2024-03-18 12:11 | Psychiatric Consultation ---
Date of Consultation March 18, 2024 Impression / Recommendations Impression Makenzie is a 23-year-old woman with a history of borderline personality disorder, depression, PTSD, eating disorder, self-harm, chronic intermittent SI and auditory hallucinations, and moyamoya disease, splenectomy, with worsening of her chronic SI with plan and feels unable to remain safe outside of the hospital setting. Diagnostically consistent with exacerbation of BPD symptoms in context of no identified stressors but continues to have no DBT work due to lack of therapists or IOPs that take her insurance which is likely to be one of the only interventions that will significantly impact her acute and chronic risk of self-harm. Given increased SI with plan and her inability to remain safe and history of prior suicide attempts will plan for psychiatric admission later today as now medically clear. Overall, I spent a total of 60 minutes with this case including review of chart records, review of labwork, direct evaluation of the patient at bedside, counseling the patient, discussion of the patient with the hospitalist provider, discussion with the psychiatric liason during clinical rounds and documentation in the electronic health record. (1) Depression with suicidal ideation: (2) Post traumatic stress disorder (PTSD): (3) Suicidal thoughts: (4) MDD (major depressive disorder), recurrent, in partial remission: (5) Borderline personality disorder: (6) Asplenia: Plan -Plan for inpatient psychiatric admission later today -1-on-1 and suicide precautions while on medical floor Psych History Identifying Data MAKENZIE HILLIARD is a 23-year-old woman with a history of borderline personality disorder, depression, PTSD, eating disorder, self-harm, chronic intermittent SI and auditory hallucinations, and moyamoya disease, splenectomy, and was admitted medically after presenting with SI with plan but found to have elevated WBC and TSH so medically admitted. Psychiatry consulted for "SI". Chief Complaint "I have suicidal thoughts to slit my wrists". History of Present Illness Makenzie was recently admitted on [facility] from 03/04/2024 -03/06/2024 for similar symptoms. Today reports SI with plan to slit her wrists. Denies any recent or ongoing stressors. Feels her SI is related to hearing voices but denies command AH. Attempted to use her coping skills but continued to have SI. Has been sleeping well. Stable appetite. Her outpatient provider recently adjusting the timing of her haldol to 5mg qAM and 15mg HS but no other medication changes since her admission two weeks ago. No other changes to her outpatient providers or supports. She is voluntary for inpatient psychiatric treatment as she feels unable to remain safe. Past Psychiatric History Current Psychiatric Diagnosis: PTSD, MDD, Borderline personality disorder Allergies Allergy/AdvReac Type Severity Reaction Status Date / Time vancomycin Allergy Intermediate Red/Itchy Verified 12/09/23 20:24 skin Home Medications Medication Instructions Recorded Confirmed Type apixaban 5 mg tablet (Eliquis) 5 mg PO AMHS 07/27/22 03/17/24 History propranolol 40 mg tablet 40 mg PO BID 07/27/22 03/17/24 History famotidine 20 mg tablet 20 mg PO BID 10/13/22 03/17/24 History omeprazole 40 mg capsule,delayed 40 mg PO QAM 01/23/23 03/17/24 History release levothyroxine 50 mcg tablet 50 mcg PO DAILY 04/08/23 03/17/24 History doxepin 25 mg capsule 25 mg PO HS 08/30/23 03/17/24 History naltrexone 50 mg tablet 50 mg PO DAILY 08/30/23 03/17/24 History gabapentin 300 mg capsule 300 mg PO TID 12/09/23 03/17/24 History lacosamide 50 mg tablet (Vimpat) 100 mg (2 x 50 mg) PO BID #120 tabs 12/11/23 03/17/24 Rx haloperidol 5 mg tablet 10 mg (2 x 5 mg) PO BID #120 tabs 01/29/24 03/17/24 Rx lithium carbonate 300 mg capsule 300 mg PO DAILY #30 caps 01/29/24 03/17/24 Rx lithium carbonate 600 mg capsule 600 mg PO HS #30 caps 01/29/24 03/17/24 Rx lorazepam 0.5 mg tablet 0.5 mg PO Q6H PRN anxiety #15 tabs 01/29/24 03/17/24 Rx gabapentin 300 mg capsule 300 mg PO HS PRN insomnia 30 days 03/06/24 03/17/24 Rx #30 caps hydroxyzine HCl 50 mg tablet 50 mg PO HSZ PRN insomnia 30 days 03/06/24 03/17/24 Rx #15 tabs Patient History Medical History Seizure-like activity COVID-19 Suicidal ideation Elevated platelet count Elevated LFTs Mesenteric adenitis Acute vascular insufficiency of intestine Portal vein thrombosis Auditory hallucinations Spherocytosis Involuntary commitment Depression with suicidal ideation MDD (major depressive disorder), recurrent, severe, with psychosis Depression with suicidal ideation Eating disorder, unspecified Suicidal ideation Major depressive disorder with psychotic features Major depression Intermittent asthma 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 Surgical History Hx of craniotomy History of splenectomy Family History Denies family history of Coronary heart disease Social History Smoking Status: Former smoker Tobacco Type: Cigarettes Second Hand Exposure: No; Do You Dip or Chew Tobacco: No; Tobacco Cessation Education Requested by Patient: No Hx Alcohol Use: No Hx Substance Use: No Preferred Language: Prydeinig Communication Ability: Effective Cartridge Gauger Required: No Beliefs That Will Affect Care: None marital status: Current Living Situation: Spouse and Family Current Living Situation Comment: lives with inlaws and How many Children do You have: 0 Other Information That Helps Us Care for You: No Feels Safe at Home: Yes Safety Concerns: Feels Safe At This Time Gender Identity: Female Assistive Devices: Glasses Physical Exam Psychiatric: Orientation: alert and oriented x 3 Apperance: appropriately dressed and appropriately groomed Eye Contact: good eye contact Motor Behavior: no abnormal motor movements Speech: normal rate/rhythm/volume of speech Affect: + mood not congruent with affect (neutral ) Mood: + depressed mood Thought Process: goal directed thought process and + concrete thought process Thought Content: reality based without delusions Suicidal Thoughts: denies suicidal intent; + reports suicidal thoughts and + reports suicidal plan (none for hospital, outside to cut herself) Homicidal Thoughts: denies homicidal thoughts Hallucinations: + auditory hallucinations (cAH to hurt herself); no visual hallucinations Cognition: recent memory grossly intact, remote memory grossly intact, attention grossly intact and language grossly intact Estimated Intelligence: consistent with education level Insight: + limited insight Judgment: + limited judgement Vital Signs (Past 24 Hours): Last Vital Signs Temp 36.9 C 03/18/24 07:15 Pulse 70 03/18/24 07:15 Resp 14 03/18/24 07:15 BP 99/67 L 03/18/24 07:15 Pulse Ox 98 03/18/24 07:15 O2 Del Method Room Air 03/18/24 07:15 Results & Data (PSY) Medications Administered Apixaban (Apixaban 5 Mg Tablet) 5 mg PO AMHS RENU Stop: 04/17/24 08:59 Last Admin: 03/18/24 08:36 Dose: 5 mg Documented By: LMM Famotidine (Famotidine 20 Mg Tab) 20 mg PO BID RENU Stop: 04/17/24 08:59 Last Admin: 03/18/24 08:36 Dose: 20 mg Documented By: LMM Gabapentin (Gabapentin 300 Mg Cap) 300 mg PO TID RENU Stop: 04/17/24 08:59 Last Admin: 03/18/24 08:36 Dose: 300 mg Documented By: LMM Haloperidol (Haloperidol 5 Mg Tab) 10 mg PO BID RENU Stop: 04/17/24 08:59 Last Admin: 03/18/24 08:37 Dose: 10 mg Documented By: LMM Sodium Chloride (Nss) 1,000 mls @ 80 mls/hr IV .[id number] RENU Stop: 03/18/24 19:18 Last Admin: 03/18/24 07:21 Dose: 80 mls/hr Documented By: LMM Lacosamide (Lacosamide 50 Mg Tablet) 100 mg PO BID RENU Stop: 04/17/24 08:59 Last Admin: 03/18/24 10:37 Dose: 100 mg Documented By: LMM Levothyroxine Sodium (Levothyroxine Sodium 50 Mcg Tablet) 50 mcg PO DAILYBB RENU Stop: 04/17/24 06:59 Last Admin: 03/18/24 08:36 Dose: 50 mcg Documented By: LMM [place] Carbonate ([place] Carbonate 300 Mg Tab) 300 mg PO DAILY RENU Stop: 04/17/24 08:59 Last Admin: 03/18/24 08:37 Dose: 300 mg Documented By: LMM Naltrexone HCl (Naltrexone Hcl 50 Mg Tab) 50 mg PO DAILY RENU Stop: 04/17/24 08:59 Last Admin: 03/18/24 08:37 Dose: 50 mg Documented By: LMM Pantoprazole Sodium (Pantoprazole 40 Mg Tab) 40 mg PO QAM RENU Stop: 04/17/24 08:59 Last Admin: 03/18/24 08:37 Dose: 40 mg Documented By: LMM Propranolol HCl (Propranolol Hcl 20 Mg Tab) 40 mg PO BID RENU Stop: 04/17/24 08:59 Last Admin: 03/18/24 08:38 Dose: Not Given Documented By: DEVAUGHN Coding Level of Care Code 63338 IN/OBS CONSULT LVL 4,60M Diagnoses Depression with suicidal ideation F32.A; R45.851 Post traumatic stress disorder (PTSD) F43.10 Suicidal thoughts R45.851 MDD (major depressive disorder), recurrent, in partial remission F33.41 Borderline personality disorder F60.3 Asplenia Q89.01
--- NOTE | 2024-03-18 14:25 | Hospitalist Progress Note ---
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 Was recently in the behavioral unit. She was brought in because of thoughts to kill herself. Patient states she still has those thoughts. Denies any headache. No runny nose. Has some sore throat and mild cough. Denies fevers. No back pain. No chest pain. No shortness of breath. No nausea. No abdominal pain. Normal bowel and bladder movements. Current resting comfortably and hemodynamically stable. Suicidal thoughts H/O suicidal ideations Suicidal precautions One-on-one Appreciate Psychiatry Input Plan to be discharged to inpatient psychiatry today Leukocytosis No obvious signs of infection H/O splenectomy UA not suggestive of UTI --CXR:No acute abnormalities and in particular no radiographic evidence of pneumonia. Leukocytosis resolved History of thrombosis of mesenteric vein History of portal vein thrombosis On Eliquis History of moyamoya disease S/p STA-MCA bypass History of severe depression Schizoaffective disorder depression type PTSD Borderline personality disorder Continue home meds Follow lithium levels--pending Medication adjustment as per psychiatry History of seizure like activity On lacosamide GERD On famotidine and omeprazole DVT prophylaxis On Eliquis CODE STATUS Full code Disposition Inpatient psychiatry Admission and Anticipated Discharge Date Admission Date: March 18, 2024 Subjective Patient is seen and examined at bedside States having suicidal thoughts Sitter at bedside Denies any chest pain, dyspnea, cough, nausea, vomiting, abdominal pain Offers no other complaints Discussed with psychiatry today Review of Systems Review of Systems: All systems reviewed & are unremarkable except as noted in Subjective Physical Exam Physical Exam: Physical Exam: Vitals signs as noted above General Appearance:Moderately built and nourished, no apparent distress Head: normocephalic, Atraumatic Eyes: normal inspection, EOMI Neck: supple, Trachea midline Respiratory/Chest: Normal breath sounds, CTA, No accessory muscle use Cardiovascular: S1, S2, No murmur Abdomen/GI:Soft, Non tender, Bowel sounds present Extremities/Musculoskeletal:normal inspection, no edema Neurologic/Psych:AAOX3, grossly no focal neurological deficits Skin: normal color, warm Results & Data Results & Data Vital Signs (Past 12 Hours) Vital Signs Temp Pulse Resp BP Pulse Ox O2 Del Method 03/18/24 07:15 Room Air 03/18/24 07:15 36.9 C 70 14 99/67 L 98 Room Air 03/18/24 06:05 36.8 C 67 101/67 97 Room Air Laboratory Results Short CBC 03/17/24 03/18/24 Range/Units 21:19 07:54 WBC 17.97 H 10.61 (4.8-10.8) K/ul Hgb 13.0 12.8 (12.0-16.0) g/dl Hct 37.5 36.8 L (37.0-47.0) % Plt Count 681 H 704 H (130-400) K/uL BMP 03/17/24 03/18/24 21:19 07:54 Sodium 137 140 Potassium 3.8 4.0 Chloride 105 109 H Carbon Dioxide 25 25 BUN 12 11 Creatinine 0.92 0.80 Glucose 86 107 H Calcium 10.0 9.1 Liver Function 03/17/24 Range/Units 21:19 Total Bilirubin 0.6 (0.2-1.0) mg/dl AST 25 (13-39) U/L ALT 37 (7-52) U/L Alkaline Phosphatase 102 (34-104) U/L Albumin 4.4 (3.4-5.0) gm/dl Urine 03/17/24 Range/Units Unknown Urine Color Yellow Urine Appearance Clear (Clear) Urine pH 7.5 (4.5-7.5) Ur Specific Edison 1.008 (1.000-1.030) Urine Protein Negative (Negative) Urine Glucose (UA) Negative (Negative)
--- NOTE | 2024-03-18 14:31 | Discharge Summary ---
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 Was recently in the behavioral unit. She was brought in because of thoughts to kill herself. Patient states she still has those thoughts. Denies any headache. No runny nose. Has some sore throat and mild cough. Denies fevers. No back pain. No chest pain. No shortness of breath. No nausea. No abdominal pain. Normal bowel and bladder movements. Current resting comfortably and hemodynamically stable. Past medical history. As mentioned above Past surgical history. Catheter placement internal carotid artery. Fusion of skull arteries. Nasal surgery for deviated septum. Removal of total splint. Sinus surgery. Spinal fluid tap. Drainage. Stereotactic cranial intradural navigation. Vertebral artery catheter placement. Social history. . No smoking. Alcohol rarely. No drug use. Family history. Father has allergies. Mother has allergies. Maternal grandfather had coronary disease. Maternal grandmother had dementia. Principal Diagnosis Depression with suicidal ideation Posttraumatic stress disorder Discharge Data Allergies Allergy/AdvReac Type Severity Reaction Status Date / Time vancomycin Allergy Intermediate Red/Itchy Verified 12/09/23 20:24 skin Consultations 03/18/24 01:51 ED Decision to Admit Stat 03/18/24 08:00 Consult Psychiatry Routine 03/18/24 11:03 Consult Behavioral Health Liaison Routine Procedures Performed Laboratory Results WBC 10.61 K/ul (4.8-10.8) 03/18/24 07:54 RBC 4.13 M/uL (4.20-5.40) L 03/18/24 07:54 Hgb 12.8 g/dl (12.0-16.0) 03/18/24 07:54 Hct 36.8 % (37.0-47.0) L 03/18/24 07:54 MCV 89.1 fL (80.0-100.0) 03/18/24 07:54 MCH 31.0 pg (25.0-34.0) 03/18/24 07:54 MCHC 34.8 g/dL (32.0-36.0) 03/18/24 07:54 RDW Std Deviation 40.1 fL (36.4-46.3) 03/18/24 07:54 RDW Coeff of Toni 12.3 % (11.5-14.5) 03/18/24 07:54 Plt Count 704 K/uL (130-400) H 03/18/24 07:54 MPV 8.7 fL (9.4-12.4) L 03/18/24 07:54 Immature Gran % (Auto) 0.3 % 03/18/24 07:54 Neut % (Auto) 58.3 % 03/18/24 07:54 Lymph % (Auto) 26.3 % 03/18/24 07:54 [place] % (Auto) 10.4 % 03/18/24 07:54 Eos % (Auto) 3.9 % 03/18/24 07:54 Baso % (Auto) 0.8 % 03/18/24 07:54 Neut # (Auto) 6.19 K/uL (1.40-6.50) 03/18/24 07:54 Lymph # (Auto) 2.79 K/uL (1.20-3.40) 03/18/24 07:54 [place] # (Auto) 1.10 K/uL (0.11-0.59) H 03/18/24 07:54 Eos # (Auto) 0.41 K/uL (0.00-0.50) 03/18/24 07:54 Baso # (Auto) 0.09 K/uL (0.00-0.20) 03/18/24 07:54 Immature Gran # (Auto) 0.03 K/uL (0.01-0.20) 03/18/24 07:54 Pappenheimer Bodies 2+ 03/17/24 21:19 Sodium 140 mmol/L (136-145) 03/18/24 07:54 Potassium 4.0 mmol/L (3.5-5.1) 03/18/24 07:54 Chloride 109 mmol/L (98-107) H 03/18/24 07:54 Carbon Dioxide 25 mmol/L (21-32) 03/18/24 07:54 Anion Gap 6 (3-11) 03/18/24 07:54 BUN 11 mg/dl (6-23) 03/18/24 07:54 Creatinine 0.80 mg/dl (0.6-1.2) 03/18/24 07:54 Est Cr Clr Drug Dosing 105.1 ml/min 03/18/24 07:54 Est GFR ( Amer) 118.8 ml/min 03/18/24 07:54 Est GFR (Non-Af Amer) 102.5 ml/min 03/18/24 07:54 BUN/Creatinine Ratio 13.8 (10-20) 03/18/24 07:54 Glucose 107 mg/dl (70-99(Fasting)) H 03/18/24 07:54 Calcium 9.1 mg/dl (8.6-10.3) 03/18/24 07:54 Magnesium 2.1 mg/dl (1.7-2.4) 03/18/24 07:54 Total Bilirubin 0.6 mg/dl (0.2-1.0) 03/17/24 21:19 AST 25 U/L (13-39) 03/17/24 21:19 ALT 37 U/L (7-52) 03/17/24 21:19 Alkaline Phosphatase 102 U/L (34-104) 03/17/24 21:19 Total Protein 7.2 gm/dl (6.0-8.3) 03/17/24 21:19 Albumin 4.4 gm/dl (3.4-5.0) 03/17/24 21:19 Globulin 2.8 gm/dl (2.5-4.0) 03/17/24 21:19 Albumin/Globulin Ratio 1.6 (0.9-2) 03/17/24 21:19 TSH 2.358 uIu/ml (0.300-4.500) 03/18/24 07:54 Free T4 1.00 ng/dl (0.61-1.60) 03/17/24 21:19 Urine Color Yellow 03/17/24 Unknown Urine Appearance Clear (Clear) 03/17/24 Unknown Urine pH 7.5 (4.5-7.5) 03/17/24 Unknown Ur Specific [place] 1.008 (1.000-1.030) 03/17/24 Unknown Urine Protein Negative (Negative) 03/17/24 Unknown Urine Glucose (UA) Negative (Negative) 03/17/24 Unknown Urine Ketones Negative (Negative) 03/17/24 Unknown Urine Blood Negative (Negative) 03/17/24 Unknown Urine Nitrite Negative (Negative) 03/17/24 Unknown Urine Bilirubin Negative (Negative) 03/17/24 Unknown Urine Urobilinogen Negative (Negative) 03/17/24 Unknown Ur Leukocyte Esterase Trace (Negative) H 03/17/24 Unknown Urine WBC (Auto) 0-5 /hpf (0-5) 03/17/24 Unknown Urine RBC (Auto) 0-2 /hpf (0-2) 03/17/24 Unknown U Hyaline Cast (Auto) 0-2 /lpf (0-2) 03/17/24 Unknown U Epithel Cells (Auto) 0-2 /hpf (0-2) 03/17/24 Unknown Urine Bacteria (Auto) None Seen (None Seen) 03/17/24 Unknown Urine Test Negative (Negative) 03/17/24 Unknown Salicylates < 3.0 mg/dl (3.0-30) L 03/17/24 21:19 Urine Opiates Screen Neg (Neg) 03/17/24 Unknown Ur Methadone, Qual Neg (Neg) 03/17/24 Unknown Urine Fentanyl Screen Neg (Neg) 03/17/24 Unknown Acetaminophen < 3 ug/ml (10-30) L 03/17/24 21:19 Urine Barbiturates Neg (Neg) 03/17/24 Unknown Ur Phencyclidine (PCP) Neg (Neg) 03/17/24 Unknown U Amphetamin/Meth Scrn Neg (Neg) 03/17/24 Unknown MDMA (Ecstasy) Screen Neg (Neg) 03/17/24 Unknown U Benzodiazepines Scrn Neg (Neg) 03/17/24 Unknown Ur Cocaine Metabolite Neg (Neg) 03/17/24 Unknown U Marijuana (THC) Screen Neg (Neg) 03/17/24 Unknown Ethyl Alcohol mg/dL < 10.0 mg/dl (<10.0) 03/17/24 21:19 SARS-CoV-2, RNA, NAAT NEGATIVE (NEGATIVE) 03/17/24 21:19 Impressions Chest X-Ray 03/18/24 09:11 XR chest 1V portable CLINICAL HISTORY: Leukocytosis TECHNIQUE: Single frontal radiograph of the chest was obtained. Comparison: Comparison is made to chest radiograph 12/09/2023 FINDINGS: No lines and tubes are seen. The cardiomediastinal silhouette is normal. The lungs are clear. No evidence of pleural effusion or pneumothorax. IMPRESSION: No acute abnormalities and in particular no radiographic evidence of pneumonia. ACT 112: Negative or not required by law. Electronically signed by: Rakesh Dimas M.D. 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 Was recently in the behavioral unit. She was brought in because of thoughts to kill herself. Patient states she still has those thoughts. Denies any headache. No runny nose. Has some sore throat and mild cough. Denies fevers. No back pain. No chest pain. No shortness of breath. No nausea. No abdominal pain. Normal bowel and bladder movements. Current resting comfortably and hemodynamically stable. Suicidal thoughts H/O suicidal ideations Suicidal precautions One-on-one Appreciate Psychiatry Input Plan to be discharged to inpatient psychiatry today Leukocytosis No obvious signs of infection H/O splenectomy UA not suggestive of UTI --CXR:No acute abnormalities and in particular no radiographic evidence of pneumonia. Leukocytosis resolved History of thrombosis of mesenteric vein History of portal vein thrombosis On Eliquis History of moyamoya disease S/p STA-MCA bypass History of severe depression Schizoaffective disorder depression type PTSD Borderline personality disorder Continue home meds Follow lithium levels--pending Medication adjustment as per psychiatry History of seizure like activity On lacosamide GERD On famotidine and omeprazole DVT prophylaxis On Eliquis CODE STATUS Full code Disposition Inpatient psychiatry Total Time Total Time Spent Total Time Spent (In Minutes): 43 minutes Discharge Plan Discharge Items Patient Disposition: Transfer Behavioral Health Fac Reason For Visit: SI, LEUKOCYSTOSIS Discharge Diagnosis: Depression with suicidal ideation Posttraumatic stress disorder Activity: Per Instructions section Exercise/Sports: Gradually increase as tolerated Non-emergency contact: Primary Care Provider and Psychiatrist Call non-emergency contact if: you have any medication questions, your symptoms worsen, your pain is concerning for you and you have a fever Follow-up/Referrals: Kinsey Chaparro PA-C [Primary Care Provider] - Diet: Heart Healthy Addtl Attending Provider Instructions: Follow-up with primary care physician Kinsey Chaparro PA-C in 1 week Follow-up with your psychiatrist Dr. Mendez as advised Seek immediate medical attention if your symptoms reoccur or worsen Please take all medications as instructed on discharge list below. Please call if you have any questions or problems. You can reach a [facility] hospitalist on duty at [facility] 24 hours a day by calling [phone] Pending Studies at Discharge: No Stand-Alone Forms: My [facility], Smoking Cessation Medications and DC Order Prescriptions: Continued famotidine 20 mg Tablet 20 mg PO BID Eliquis 5 mg tablet 5 mg PO AMHS propranolol 40 mg tablet 40 mg PO BID omeprazole 40 mg capsule,delayed release(DR/EC) 40 mg PO QAM levothyroxine 50 mcg tablet 50 mcg PO DAILY naltrexone 50 mg tablet 50 mg PO DAILY doxepin 25 mg capsule 25 mg PO HS lorazepam 0.5 mg Tablet 0.5 mg PO Q6H PRN (Reason: anxiety) Qty: 15 0RF lithium carbonate 600 mg capsule 600 mg PO HS Qty: 30 0RF lithium carbonate 300 mg capsule 300 mg PO DAILY Qty: 30 0RF haloperidol 5 mg Tablet 10 mg PO BID Qty: 120 0RF gabapentin 300 mg capsule 300 mg PO HS PRN (Reason: insomnia) 30 Days Qty: 30 0RF Rx Instructions: If Vistaril is ineffective for sleep can try additional dose of gabapentin 300mg at bedtime with scheduled gabapentin 300mg for a total bedtime dose of 600mg. hydroxyzine HCl 50 mg tablet 50 mg PO HSZ PRN (Reason: insomnia) 30 Days Qty: 15 0RF gabapentin 300 mg capsule 300 mg PO TID lacosamide [Vimpat] 50 mg Tablet 100 mg PO BID Qty: 120 0RF Discharge Orders: Discharge Order (Routine); Ordered 03/18/24 Ordered By: Hima Espinal Admission Data Admit Date/Time: 03/18/24 04:15 Attending Provider: Hima Espinal Admit Provider: Toi Dorado Primary Care Provider: Kinsey Chaparro Other Providers: Toi Dorado; Alma Rosa Mendez; Earl Schaefer; Reece Junior Jr; Ines Castañeda; Charlene Perez; Isra Vieyra
[2024-03-18] MEDS ORDERED: LITHIUM CARBONATE 300 MG TAB PO SCH (21:00)
[2024-03-18] MEDS ORDERED: DOXEPIN HCL 25 MG CAPSULE PO SCH (21:00)
== END 2024-03-18 16:00 ==
LOC: ED 20:58 → INTOOBSV 03-18 04:15 → 3N 03-18 04:15

== ENCOUNTER 2024-03-18 14:43 | Inpatient (IN) ==
[2024-03-18] MEDS ORDERED: SODIUM CHLORIDE 0.65% NA SOLN 45 ML (OCEAN) PRN (14:58)
[2024-03-18] MEDS ORDERED: hydrOXYzine HCl 25 MG TAB PO PRN (14:58)
[2024-03-18] MEDS ORDERED: MAGNESIUM HYDROXIDE SUSP 30 ML UDC PO PRN (14:58)
[2024-03-18] MEDS ORDERED: ALUMINUM/MAGNESIUM SUSP 30 ML UDC PO PRN (14:58)
[2024-03-18] MEDS ORDERED: BISMUTH SUBSALICYLATE LIQD 236 ML PO PRN (14:58)
[2024-03-18] MEDS ORDERED: ACETAMINOPHEN 325 MG TAB PO PRN (14:58)
[2024-03-18] MEDS: FAMOTIDINE 20 MG TAB PO SCH (21:04)
[2024-03-18] MEDS: haloperidoL 5 MG TAB PO SCH (21:04)
[2024-03-18] MEDS: APIXABAN 5 MG TABLET PO SCH (21:04)
[2024-03-18] MEDS: GABAPENTIN 300 MG CAP PO SCH (21:04)
[2024-03-18] MEDS: DOXEPIN HCL 25 MG CAPSULE PO SCH (21:05)
[2024-03-18] MEDS: LACOSAMIDE 50 MG TABLET PO SCH (21:05)
[2024-03-18] MEDS: LORazepam 0.5 MG TAB PO PRN (21:06)
[2024-03-18] MEDS: LITHIUM CARBONATE 300 MG TAB PO SCH (21:06)
[2024-03-18] MEDS: PROPRANOLOL HCL 20 MG TAB PO SCH (21:28)
[2024-03-19] MEDS: LEVOTHYROXINE SODIUM 50 MCG TABLET PO SCH (07:46)
[2024-03-19 08:07] LABS: Chol HDL Ratio 4.3 (0-5)
--- NOTE | 2024-03-19 08:50 | History & Physical ---
Date of Service March 19, 2024 Impression / Recommendations Impression MAKENZIE HILLIARD is a 23-year-old F who currently lives in [place] with her and in-laws, has a history of borderline personality disorder, depression, PTSD, eating disorder, self-harm, chronic intermittent SI and auditory hallucinations, and moyamoya disease, splenectomy and was admitted on 03/18/24 14:58 on a 201 voluntary commitment for SI with plan and command AH to hurt herself. Diagnostically consistent with exacerbation of BPD symptoms. 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 DBT remains the most evidence-based intervention to help with her symptom burden and reduce her frequency of inpatient hospitalizations. Traditionally this has been challenging due to her insurance coverage but given her report today of having new commercial insurance through her , will work to determine if a dditional outpatient IOP may be an option now. Ongoing work to encourage her to utilize her extensive safety planning and outpatient resources, including on- call CM, in effort to build more skills of coping with her chronic SI rather than always relying on hospitalization as this seems to just further re-enforce maladaptive coping skills and removes her from the structure and beneficial therapeutic interventions of her outpatient providers and services. With increasing frequency of hospitalization, wonder about possible of dependent personality component as well. Discussed medication treatment options in detail. Discussed risks, benefits and alternatives. She would like to try discontinuing haldol and starting risperidone instead. Discussed that I feel DBT is likely to be the most benef icial intervention but willing to try an alternative antipsychotic given ongoing symptoms even with high dose haldol. Patient consented to risperidone for unspecified psychosis. Reviewed side effects including but not limited to: movement (TD, NMS), cardiac (QTc prolongation), and metabolic (stroke, insulin resistance) and necessity for fasting lipid and glucose labwork and AIMS done with score of 0. Fasting glucose & lipid panel labwork reviewed and stable for use of risperidone. [facility] level within therapeutic range. MNPR due to asplenia with increased infection risk Overall I spent a total of 80 minutes for this admission including review of chart records, review of labwork, direct evaluation of the patient, counseling the patient, ordering medication, risk assessment, discussion with the psychiatric liason RN and documentation in the electronic health record. (1) Depression with suicidal ideation: (2) Borderline personality disorder: (3) Post traumatic stress disorder (PTSD): Plan 03/19/2024: The patient was admitted to the [facility] ([facility]) on q15 min checks (behavioral with suicide precautions) for safety. The patient will participate in group, recreational, and milieu therapies and will be offered additional individual and family sessions as clinically appropriate. -Continue prior to admission medications -discontinue haldol -Start risperidone 1mg BID and 0.5mg BID prn for hallucinations -Look into options for DBT IOP given new insurance coverage Inventory Assets Strengths: supportive relationships, willing to get treatment Needs: safety and stabilization, medication adjustment, additional coping skills, increased outpatient services Suicide Risk Level Suicide Risk Level: High-Moderate (q15 min suicide checks) (Si with plan prior to admission and command AH but feels safe in the hospital, no evidence for responding to internal stimuli/acute psychosis to suggest she may act on command AH, feels able to ask for support if needed) Risk Factors Assessment Male: No : Yes Do You Have Access To A Gun?: No Health Problems: Yes Mental Health Diagnoses: Yes Substance Use Disorders: No Previous Attempt: Yes Family History of Suicide: No Previous Psychiatric Hospitalization: Yes Hopelessness: No Protective Factors Assessment : Yes Stable Relationships: Yes Supportive Family: Yes Good Rapport with Provider: Yes Psychiatric History Identifying Data MAKENZIE HILLIARD is a 23-year-old F who currently lives in [place] with her and in-laws, has a history of borderline personality disorder, depression, PTSD, eating disorder, self-harm, chronic intermittent SI and auditory hallucinations, and moyamoya disease, splenectomy and was admitted on 03/18/24 14:58 on a 201 voluntary commitment for SI with plan and command AH to hurt herself. Chief Complaint "I still have them, it's constant". History of Present Illness Makenzie presented to the hospital for SI and voices telling her to hurt herself with plan to possible slit her wrists. She was admitted two weeks ago for almost identical symptoms. She denies any recent stressors. We discuss the pattern of her chronic intermittent SI and periods of command hallucinations in the absence of any other symptoms of psychosis. Her symptoms remain suggestive of BPD which she agrees is likely. She feels she comes to the hospital because the suicidal thoughts start and she can't distract from them they are "constant" and "like a loop". She then may attempt a few distraction skills but then calls Crisis and they have her come to the emergency room. Reviewed option to ask to speak with the on-call rn field case manager as they may be better aware of the chronicity of her SI and may have other coping skills and suggestions Makenzie can try. She is agreeable to trying this in the future. She denies any rewarding aspects of hospitalization nor anything she is trying to avoid at home. Rather feels that she likes that she feels "safe" in the hospital and with prompting expands that this is due to having staff around to talk to anytime. Reviewed that utilizing outpatient supports more when she starts to experience SI, such as on-call rn field case manager may help mimic some of the support she feels the hospital environment offers and she agrees with this. She feels the haldol is not helping at all with the voices. She recalls risperidone worked well at one point in the past and wonders about trying this. One new change is that she now has private insurance though her 's work. Given this she has now started with an outpatient therapist, had one session so far. Reviewed this may allow for referrals for more intensive DBT therapy which she is open to. Past Psychiatric History Current Psychiatric Diagnosis: bipolar disorder, borderline personality disorder, MDD Outpatient Services: [facility], [facility], [facility], Between transplant case manager at [facility]; has a new therapist Socorro at [facility] Previous Psych Admissions: multiple >15 last at [facility] in January 2024 from 03/04/2024-03/06/2024 Do You Have Access To A Gun?: No History of Previous Suicide Attempt: Yes Describe Attempts in the Past: overdose attempt October 2022 Past Medication Trials: multiple Past Head Trauma/Neuro History History of Concussion/Seizure: Yes possible seizure-like activity in the past vs syncope Allergies Allergy/AdvReac Type Severity Reaction Status Date / Time vancomycin Allergy Intermediate Red/Itchy Verified 12/09/23 20:24 skin Home Medications Medication Instructions Recorded Confirmed Type apixaban 5 mg tablet (Eliquis) 5 mg PO AMHS 07/27/22 03/17/24 History propranolol 40 mg tablet 40 mg PO BID 07/27/22 03/17/24 History famotidine 20 mg tablet 20 mg PO BID 10/13/22 03/17/24 History omeprazole 40 mg capsule,delayed 40 mg PO QAM 01/23/23 03/17/24 History release levothyroxine 50 mcg tablet 50 mcg PO DAILY 04/08/23 03/17/24 History doxepin 25 mg capsule 25 mg PO HS 08/30/23 03/17/24 History naltrexone 50 mg tablet 50 mg PO DAILY 08/30/23 03/17/24 History gabapentin 300 mg capsule 300 mg PO TID 12/09/23 03/17/24 History lacosamide 50 mg tablet (Vimpat) 100 mg (2 x 50 mg) PO BID #120 tabs 12/11/23 03/17/24 Rx haloperidol 5 mg tablet 10 mg (2 x 5 mg) PO BID #120 tabs 01/29/24 03/17/24 Rx lithium carbonate 300 mg capsule 300 mg PO DAILY #30 caps 01/29/24 03/17/24 Rx lithium carbonate 600 mg capsule 600 mg PO HS #30 caps 01/29/24 03/17/24 Rx lorazepam 0.5 mg tablet 0.5 mg PO Q6H PRN anxiety #15 tabs 01/29/24 03/17/24 Rx gabapentin 300 mg capsule 300 mg PO HS PRN insomnia 30 days 03/06/24 03/17/24 Rx #30 caps hydroxyzine HCl 50 mg tablet 50 mg PO HSZ PRN insomnia 30 days 03/06/24 03/17/24 Rx #15 tabs Family History Family History of: Depression and Anxiety Alcohol History Hx of Alcohol Use Over the Past 12 Months: No AUDIT Total Score: 0 Smoking Use Have You Smoked or Used Tobacco Products in the Last 30 Days: No Smoking Status: Never smoker Substance History Hx of Prescription Med Misuse Over the Past 12 Months: No Hx of Over the Counter Med Misuse Over the Past 12 Months: No Hx of Inhalent Misuse Over the Past 12 Months: No Hx of Organic Substance Use Over the Past 12 Months: No Hx of Illegal Substances/Street Drug Use Over Past 12 Months: No Problems as a Result of Past Substance Use: None Identified Personal History Living Arrangements: Apartment Highest Grade Completed: Some College Employment Status: Unemployed Marital Status: Number Of Children: 0 Beliefs That Will Affect Care: None Current Legal Problems: No Hx Legal Problems: No Hx Traumatic Life Events: Yes Patient History Medical History Seizure-like activity COVID-19 Suicidal ideation Elevated platelet count Elevated LFTs Mesenteric adenitis Acute vascular insufficiency of intestine Portal vein thrombosis Auditory hallucinations Spherocytosis Involuntary commitment Depression with suicidal ideation MDD (major depressive disorder), recurrent, severe, with psychosis Depression with suicidal ideation Eating disorder, unspecified Suicidal ideation Major depressive disorder with psychotic features Major depression Intermittent asthma 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 Surgical History Hx of craniotomy History of splenectomy Family History Denies family history of Coronary heart disease Social History Smoking Status: Never smoker Tobacco Type: Cigarettes Second Hand Exposure: No; Do You Dip or Chew Tobacco: No; Hx Alcohol Use: No Hx Substance Use: No Preferred Language: Turkmen Communication Ability: Effective Dog Walker Required: No Beliefs That Will Affect Care: None marital status: Current Living Situation: Spouse and Family Current Living Situation Comment: lives with inlaws and How many Children do You have: 0 Feels Safe at Home: Yes Gender Identity: Female Assistive Devices: Glasses Review of Systems Review of Systems: All systems reviewed & are unremarkable except as noted in HPI & below Physical Exam Psychiatric: Orientation: alert and oriented x 3 Apperance: appropriately dressed and appropriately groomed Eye Contact: + fair eye contact Motor Behavior: no abnormal motor movements Speech: normal rate/rhythm/volume of speech Affect: + blunted affect Mood: + depressed mood Thought Process: goal directed thought process Thought Content: reality based without delusions Suicidal Thoughts: denies suicidal plan (none for hospital, outside to cut wrists) and denies suicidal intent; + reports suicidal thoughts (intermittent thoughts ) Homicidal Thoughts: denies homicidal thoughts Hallucinations: + auditory hallucinations (reports command to harm herself); no visual hallucinations Cognition: recent memory grossly intact, remote memory grossly intact, attention grossly intact and language grossly intact Estimated Intelligence: + below average estimated intelligence Insight: + limited insight Judgment: + poor judgement Vital Signs (Past 24 Hours): Last Vital Signs Temp 36.0 C L 03/19/24 06:00 Pulse 91 H 03/19/24 06:27 Resp 16 03/19/24 06:00 BP 109/76 03/19/24 06:27 Pulse Ox 98 03/18/24 16:06 O2 Del Method Room Air 03/18/24 16:06 Exam Statement: A physical exam was performed on the medical floor by Dr. Espinal for the purposes of medical clearance. I accept that physical as correct and adequate for the purposes of the inpatient physical exam. Results & Data ([facility]) Laboratory Results Laboratory Results - last 24 hr 03/19/24 07:24 Fasting Glucose 101 H Triglycerides 96 Cholesterol 142 LDL Cholesterol, Calc 90 VLDL Cholesterol, Calc 19 HDL Cholesterol 33 Cholesterol/HDL Ratio 4.3 [facility] Pending Current Inpatient Medications Current Inpatient Medications: Current Inpatient Medications Acetaminophen (Acetaminophen 325 Mg Tab) 650 mg PO Q4H PRN PRN Reason: Headache or Minor Fever Stop: 04/17/24 14:57 Al Hydrox/Mg Hydrox/Simethicone (Aluminum/Magnesium Susp 30 Ml Udc) 30 ml PO Q4H PRN PRN Reason: GI Upset Stop: 04/17/24 14:57 Apixaban (Apixaban 5 Mg Tablet) 5 mg PO AMHS RENU Stop: 04/17/24 20:59 Last Admin: 03/18/24 21:04 Dose: 5 mg Doxepin HCl (Doxepin Hcl 25 Mg Capsule) 25 mg PO HS RENU Stop: 04/17/24 21:59 Last Admin: 03/18/24 21:05 Dose: 25 mg Famotidine (Famotidine 20 Mg Tab) 20 mg PO BID RENU Stop: 04/17/24 20:59 Last Admin: 03/18/24 21:04 Dose: 20 mg Gabapentin (Gabapentin 300 Mg Cap) 300 mg PO TID RENU Stop: 04/17/24 20:59 Last Admin: 03/18/24 21:04 Dose: 300 mg Haloperidol (Haloperidol 5 Mg Tab) 10 mg PO BID RENU Stop: 04/17/24 20:59 Last Admin: 03/18/24 21:04 Dose: 10 mg Hydroxyzine HCl (Hydroxyzine Hcl 25 Mg Tab) 50 mg PO HSZ PRN PRN Reason: Insomnia Stop: 04/17/24 14:57 Hydroxyzine HCl (Hydroxyzine Hcl 25 Mg Tab) 25 mg PO Q4H PRN PRN Reason: Anxiety Stop: 04/17/24 14:57 Lacosamide (Lacosamide 50 Mg Tablet) 100 mg PO BID RENU Stop: 04/17/24 20:59 Last Admin: 03/18/24 21:05 Dose: 100 mg Levothyroxine Sodium (Levothyroxine Sodium 50 Mcg Tablet) 50 mcg PO DAILYBB RENU Stop: 04/18/24 07:59 Last Admin: 03/19/24 07:46 Dose: 50 mcg [facility] [place] [facility] Carbonate ([place] Carbonate 300 Mg Tab) 600 mg PO HS RENU Stop: 04/17/24 21:59 Last Admin: 03/18/24 21:06 Dose: 600 mg [facility] [place] Carbonate ([place] Carbonate 300 Mg Tab) 300 mg PO DAILY RENU Stop: 04/18/24 08:59 Lorazepam (Lorazepam 0.5 Mg Tab) 0.5 mg PO Q6H PRN PRN Reason: anxiety Stop: 04/17/24 20:13 Last Admin: 03/18/24 21:06 Dose: 0.5 mg Magnesium Hydroxide (Magnesium Hydroxide Susp 30 Ml Udc) 30 ml PO DAILY PRN PRN Reason: Constipation Stop: 04/17/24 14:57 Naltrexone HCl (Naltrexone Hcl 50 Mg Tab) 50 mg PO DAILY RENU Stop: 04/18/24 08:59 Pantoprazole Sodium (Pantoprazole 40 Mg Tab) 40 mg PO QAM RENU Stop: 04/18/24 08:59 Propranolol HCl (Propranolol Hcl 20 Mg Tab) 40 mg PO BID RENU Stop: 04/17/24 20:59 Last Admin: 03/18/24 21:28 Dose: Not Given Sodium Chloride (Sodium Chloride 0.65% Na Soln 45 Ml ([place])) 1 - 2 sprays NA PRN PRN PRN Reason: Nasal Dryness/Congestion Stop: 04/17/24 14:57
[2024-03-19] MEDS: LITHIUM CARBONATE 300 MG TAB PO SCH (09:26)
[2024-03-19] MEDS: PANTOprazole 40 MG TAB PO SCH (09:27)
[2024-03-19] MEDS: NALTREXONE HCL 50 MG TAB PO SCH (09:27)
[2024-03-19] MEDS: risperiDONE 0.25 MG TAB PO PRN (16:13)
[2024-03-19] MEDS: risperiDONE 1 MG TABLET PO SCH (21:34)
--- NOTE | 2024-03-20 08:39 | Psychiatric Progress Note ---
Date of Service March 20, 2024 Impression / Recommendations Impression MAKENZIE HILLIARD is a 23-year-old F who currently lives in [place] with her and in-laws, has a history of borderline personality disorder, depression, PTSD, eating disorder, self-harm, chronic intermittent SI and auditory hallucinations, and moyamoya disease, splenectomy and was admitted on 03/18/24 14:58 on a 201 voluntary commitment for SI with plan and command AH to hurt herself. Diagnostically consistent with exacerbation of BPD symptoms. 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 A: Continues to present with flat affect but doesn't endorse any symptoms of depression and no evidence for acute psychosis or responding to internal stimuli. She reports ongoing SI and continues to hear auditory hallucinations telling her to harm herself. Has not acted on these thoughts and continues to feel able to ignore what the voices say. Feels her AH are lessening with switch to risperidone. Tolerating medications. Slightly hypotensive this morning, she has been asymptomatic, suspect due to her eating disorder with restriction (though she denies intentional restriction), encouraged increased po intake today which she is willing to try. If hypotension persists over subsequent days would consider reducing propranolol or doxepin dose. Exploring outpatient IOP options given new information about her insurance coverage/changes to her insurance that she shared yesterday for the first time. MNPR due to asplenia with increased infection risk Overall, I spent a total of 35 minutes on this case including meeting with the patient, reviewing the chart, nursing report, multidisciplinary team meeting, orders, and documentation. (1) Depression with suicidal ideation: (2) Borderline personality disorder: (3) Post traumatic stress disorder (PTSD): Plan 03/20/2024: Continue current medications and tx plan. 03/19/2024: The patient was admitted to the [facility] ([facility] health unit) on q15 min checks (behavioral with suicide precautions) for safety. The patient will participate in group, recreational, and milieu therapies and will be offered additional individual and family sessions as clinically appropriate. -Continue prior to admission medications -discontinue haldol -Start risperidone 1mg BID and 0.5mg BID prn for hallucinations -Look into options for DBT IOP given new insurance coverage Inventory Assets Strengths: supportive relationships, willing to get treatment Needs: safety and stabilization, medication adjustment, additional coping skills, increased outpatient services Suicide Risk Level Suicide Risk Level: Moderate (q15 min suicide checks) (Si with plan prior to admission and command AH but feels safe in the hospital, no evidence for responding to internal stimuli/acute psychosis to suggest she may act on command AH, feels able to ask for support if needed) Risk Factors Assessment Male: No : Yes Do You Have Access To A Gun?: No Health Problems: Yes Mental Health Diagnoses: Yes Substance Use Disorders: No Previous Attempt: Yes Family History of Suicide: No Previous Psychiatric Hospitalization: Yes Hopelessness: No Protective Factors Assessment : Yes Stable Relationships: Yes Supportive Family: Yes Good Rapport with Provider: Yes Interval History Identifying Information MAKENZIE HILLIARD is a 23-year-old F who currently lives in [place] with her lucy coronel and in-laws, has a history of borderline personality disorder, depression, PTSD, eating disorder, self-harm, chronic intermittent SI and auditory hallucinations, and moyamoya disease, splenectomy and was admitted on 03/18/24 14:58 on a 201 voluntary commitment for SI with plan and command AH to hurt herself. Chief Complaint "I'm alright". Review of Systems Sleep Information Total Hours of Sleep: 6.5 Meal Information Percent Meal Consumed - Breakfast: 0 Percent Meal Consumed - Lunch: 0 Percent Meal Consumed - Dinner: 100 Subjective Subjective Patient was seen & assessed and interval progress reviewed with treatment team nursing and social work. Reported hearing a male voice last evening telling her to harm herself but able to discuss this with staff and seek support. Did not eat most of her meals yesterday which she reports was due to lack of appetite, denies intentional restriction. Today reports her mood is "alright". Continues to hear a voice at times that tells her to "hurt myself" but doesn't want to act on these thoughts, remains comfortable alerting staff for additional support and knows she can utilize prn risperidone. So far she feels risperidone is helping compared with haldol stating that "the voices they've been quieter". Didn't sleep very well last night, reports she kept waking up, she isn't sure why. We discuss possibility it may have been related to poor po intake. She denies any dizziness or weakness or other physical symptoms today. Physical Exam Psychiatric Orientation: alert and oriented x 3 Apperance: appropriately dressed and appropriately groomed Eye Contact: + fair eye contact Motor Behavior: no abnormal motor movements Speech: normal rate/rhythm/volume of speech Affect: + blunted affect Mood: + depressed mood Thought Process: goal directed thought process Thought Content: reality based without delusions Suicidal Thoughts: denies suicidal plan (none for hospital, outside to cut wrists) and denies suicidal intent; + reports suicidal thoughts (intermittent thoughts ) Homicidal Thoughts: denies homicidal thoughts Hallucinations: + auditory hallucinations (reports command to harm herself); no visual hallucinations Cognition: recent memory grossly intact, remote memory grossly intact, attention grossly intact and language grossly intact Estimated Intelligence: + below average estimated intelligence Insight: + limited insight Judgment: + limited judgement Vital Signs (Past 24 Hours) Last Vital Signs Temp 35.8 C L 03/20/24 06:00 Pulse 93 H 03/20/24 06:24 Resp 16 03/20/24 06:00 BP 86/54 L 03/20/24 06:24 Pulse Ox 98 03/18/24 16:06 O2 Del Method Room Air 03/18/24 16:06 Results & Data ([facility]) Laboratory Results Laboratory Results - last 24 hr 03/19/24 07:24 [place] 0.7 Current Inpatient Medications Current Inpatient Medications: Current Inpatient Medications Acetaminophen (Acetaminophen 325 Mg Tab) 650 mg PO Q4H PRN PRN Reason: Headache or Minor Fever Stop: 04/17/24 14:57 Al Hydrox/Mg Hydrox/Simethicone (Aluminum/Magnesium Susp 30 Ml Udc) 30 ml PO Q4H PRN PRN Reason: GI Upset Stop: 04/17/24 14:57 Apixaban (Apixaban 5 Mg Tablet) 5 mg PO AMHS RENU Stop: 04/17/24 20:59 Last Admin: 03/19/24 21:35 Dose: 5 mg Doxepin HCl (Doxepin Hcl 25 Mg Capsule) 25 mg PO HS RENU Stop: 04/17/24 21:59 Last Admin: 03/19/24 21:35 Dose: 25 mg Famotidine (Famotidine 20 Mg Tab) 20 mg PO BID RENU Stop: 04/17/24 20:59 Last Admin: 03/19/24 21:34 Dose: 20 mg Gabapentin (Gabapentin 300 Mg Cap) 300 mg PO TID RENU Stop: 04/17/24 20:59 Last Admin: 03/19/24 21:34 Dose: 300 mg Hydroxyzine HCl (Hydroxyzine Hcl 25 Mg Tab) 50 mg PO HSZ PRN PRN Reason: Insomnia Stop: 04/17/24 14:57 Hydroxyzine HCl (Hydroxyzine Hcl 25 Mg Tab) 25 mg PO Q4H PRN PRN Reason: Anxiety Stop: 04/17/24 14:57 Lacosamide (Lacosamide 50 Mg Tablet) 100 mg PO BID RENU Stop: 04/17/24 20:59 Last Admin: 03/19/24 21:34 Dose: 100 mg Levothyroxine Sodium (Levothyroxine Sodium 50 Mcg Tablet) 50 mcg PO DAILYBB RENU Stop: 04/18/24 07:59 Last Admin: 03/20/24 08:10 Dose: 50 mcg [place] Carbonate ([place] Carbonate 300 Mg Tab) 600 mg PO HS RENU Stop: 04/17/24 21:59 Last Admin: 03/19/24 21:35 Dose: 600 mg [place] Carbonate ([place] Carbonate 300 Mg Tab) 300 mg PO DAILY RENU Stop: 04/18/24 08:59 Last Admin: 03/19/24 09:26 Dose: 300 mg Lorazepam (Lorazepam 0.5 Mg Tab) 0.5 mg PO Q6H PRN PRN Reason: anxiety Stop: 04/17/24 20:13 Last Admin: 03/19/24 21:43 Dose: 0.5 mg Magnesium Hydroxide (Magnesium Hydroxide Susp 30 Ml Udc) 30 ml PO DAILY PRN PRN Reason: Constipation Stop: 04/17/24 14:57 Naltrexone HCl (Naltrexone Hcl 50 Mg Tab) 50 mg PO DAILY RENU Stop: 04/18/24 08:59 Last Admin: 03/19/24 09:27 Dose: 50 mg Pantoprazole Sodium (Pantoprazole 40 Mg Tab) 40 mg PO QAM RENU Stop: 04/18/24 08:59 Last Admin: 03/19/24 09:27 Dose: 40 mg Propranolol HCl (Propranolol Hcl 20 Mg Tab) 40 mg PO BID RENU Stop: 04/17/24 20:59 Last Admin: 03/19/24 21:43 Dose: 40 mg Risperidone (Risperidone 1 Mg Tablet) 1 mg PO BID RENU Stop: 04/18/24 20:59 Last Admin: 03/19/24 21:34 Dose: 1 mg Risperidone (Risperidone 0.25 Mg Tab) 0.5 mg PO BID PRN PRN Reason: hallucinations Stop: 04/18/24 11:33 Last Admin: 03/19/24 16:13 Dose: 0.5 mg Sodium Chloride (Sodium Chloride 0.65% Na Soln 45 Ml ([place])) 1 - 2 sprays NA PRN PRN PRN Reason: Nasal Dryness/Congestion Stop: 04/17/24 14:57 Mental Health & Subst Abuse Tx Industrial Energy Engineer Name of Industrial Energy Engineer: Andreea Smith
[2024-03-20] MEDS: hydrOXYzine HCl 25 MG TAB PO PRN (17:24)
[2024-03-21 08:23] LABS: Creatinine Clr Calc Pharmacy 95.6 ml/min; Est GFR (Non-African American) 96.6 ml/min
--- NOTE | 2024-03-21 16:44 | Psychiatric Progress Note ---
Date of Service March 21, 2024 Impression / Recommendations Impression MAKENZIE HILLIARD is a 23-year-old F who currently lives in [place] with her and in-laws, has a history of borderline personality disorder, depression, PTSD, eating disorder, self-harm, chronic intermittent SI and auditory hallucinations, and moyamoya disease, splenectomy and was admitted on 03/18/24 14:58 on a 201 voluntary commitment for SI with plan and command AH to hurt herself. Diagnostically consistent with exacerbation of BPD symptoms. 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 A: C Today patient reflects on distressing emotions present on admission day. She reported using her safety plan and coping skills however unsuccessful. Patient optimistic about DBT therapy and educated about how it can be effective for distress tolerance and coping. Patient is future oriented and presents improved outlook. MNPR due to asplenia with increased infection risk Overall, I spent a total of 45 minutes on this case including meeting with the patient, reviewing the chart, nursing report, multidisciplinary team meeting, orders, and documentation. (1) Depression with suicidal ideation: (2) Borderline personality disorder: (3) Post traumatic stress disorder (PTSD): Plan 03/21/2024: Continue current medications and tx plan. 03/20/2024: Continue current medications and tx plan. 03/19/2024: The patient was admitted to the [facility] ([facility] health unit) on q15 min checks (behavioral with suicide precautions) for safety. The patient will participate in group, recreational, and milieu therapies and will be offered additional individual and family sessions as clinically appropriate. -Continue prior to admission medications -discontinue haldol -Start risperidone 1mg BID and 0.5mg BID prn for hallucinations -Look into options for DBT IOP given new insurance coverage Inventory Assets Strengths: supportive relationships, willing to get treatment Needs: safety and stabilization, medication adjustment, additional coping skills, increased outpatient services Suicide Risk Level Suicide Risk Level: Moderate (q15 min suicide checks) (Si with plan prior to admission and command AH but feels safe in the hospital, no evidence for respond ing to internal stimuli/acute psychosis to suggest she may act on command AH, feels able to ask for support if needed) Risk Factors Assessment Male: No : Yes Do You Have Access To A Gun?: No Health Problems: Yes Mental Health Diagnoses: Yes Substance Use Disorders: No Previous Attempt: Yes Family History of Suicide: No Previous Psychiatric Hospitalization: Yes Hopelessness: No Protective Factors Assessment : Yes Stable Relationships: Yes Supportive Family: Yes Good Rapport with Provider: Yes Interval History Identifying Information MAKENZIE HILLIARD is a 23-year-old F who currently lives in [place] with her and in-laws, has a history of borderline personality disorder, depression, PTSD, eating disorder, self-harm, chronic intermittent SI and auditory hallucinations, and moyamoya disease, splenectomy and was admitted on 03/18/24 14:58 on a 201 voluntary commitment for SI with plan and command AH to hurt herself. Chief Complaint "Found out why I was anxious" Review of Systems Sleep Information Total Hours of Sleep: 9.5 Meal Information Percent Meal Consumed - Breakfast: 100 Percent Meal Consumed - Lunch: 100 Percent Meal Consumed - Dinner: 50 Subjective Subjective Patient was seen & assessed and interval progress reviewed with treatment team nursing and social work Reports that this last week was her father's first birthday since his passing and was why she was anxious. Reports being at home and feeling hopeless for a few hours. At 4:30 PM she spoke to her [id number] who recommended for her to read or listen to music to cope. Reports that did not work and that she complained of physical anxiety and muscle tension. She had a plan to slit her wrist. She did have the after-hours number for transplant case manager and decided to call crisis. Then patient came in. Reports the Risperdal is working well and that she likes having as needed medication at home to cope with anxiety. Says the voices are "quiet". Says the voices are of a male voice. She is open for DBT and confirms that she now has new insurance. Denies suicidal ideation. Physical Exam Mental Examination Appearance: Well Groomed Eye Contact: Maintains Eye Contact Motor Behavior: Unremarkable Speech: Normal (limited spontaneous speech) Mood: Euthymic and Calm Affect: Blunted and Congruent Thought Process: Intact and Linear Thought Content: Intact Hallucinations: Auditory Insight: Poor Judgement: Poor Vital Signs (Past 24 Hours) Last Vital Signs Temp 36.6 C 03/21/24 06:32 Pulse 80 03/21/24 06:32 Resp 16 03/21/24 06:32 BP 104/73 03/21/24 06:32 Pulse Ox 98 03/18/24 16:06 O2 Del Method Room Air 03/18/24 16:06 Results & Data ([facility]) Laboratory Results Laboratory Results - last 24 hr 03/21/24 07:37 Creatinine 0.84 Est Cr Clr Drug Dosing 95.6 Est GFR ( Amer) 112.0 Est GFR (Non-Af Amer) 96.6 Current Inpatient Medications Current Inpatient Medications: Current Inpatient Medications Acetaminophen (Acetaminophen 325 Mg Tab) 650 mg PO Q4H PRN PRN Reason: Headache or Minor Fever Stop: 04/17/24 14:57 Al Hydrox/Mg Hydrox/Simethicone (Aluminum/Magnesium Susp 30 Ml Udc) 30 ml PO Q4H PRN PRN Reason: GI Upset Stop: 04/17/24 14:57 Apixaban (Apixaban 5 Mg Tablet) 5 mg PO AMHS RENU Stop: 04/17/24 20:59 Last Admin: 03/21/24 08:08 Dose: 5 mg Doxepin HCl (Doxepin Hcl 25 Mg Capsule) 25 mg PO HS RENU Stop: 04/17/24 21:59 Last Admin: 03/20/24 22:59 Dose: Not Given Famotidine (Famotidine 20 Mg Tab) 20 mg PO BID RENU Stop: 04/17/24 20:59 Last Admin: 03/21/24 08:08 Dose: 20 mg Gabapentin (Gabapentin 300 Mg Cap) 300 mg PO TID RENU Stop: 04/17/24 20:59 Last Admin: 03/21/24 11:22 Dose: 300 mg Hydroxyzine HCl (Hydroxyzine Hcl 25 Mg Tab) 50 mg PO HSZ PRN PRN Reason: Insomnia Stop: 04/17/24 14:57 Hydroxyzine HCl (Hydroxyzine Hcl 25 Mg Tab) 25 mg PO Q4H PRN PRN Reason: Anxiety Stop: 04/17/24 14:57 Last Admin: 03/21/24 13:05 Dose: 25 mg Lacosamide (Lacosamide 50 Mg Tablet) 100 mg PO BID RENU Stop: 04/17/24 20:59 Last Admin: 03/21/24 08:07 Dose: 100 mg Levothyroxine Sodium (Levothyroxine Sodium 50 Mcg Tablet) 50 mcg PO DAILYBB RENU Stop: 04/18/24 07:59 Last Admin: 03/21/24 06:46 Dose: 50 mcg [place] Carbonate ([place] Carbonate 300 Mg Tab) 600 mg PO HS RENU Stop: 04/17/24 21:59 Last Admin: 03/20/24 22:59 Dose: Not Given [place] Carbonate ([place] Carbonate 300 Mg Tab) 300 mg PO DAILY RENU Stop: 04/18/24 08:59 Last Admin: 03/21/24 08:08 Dose: 300 mg Lorazepam (Lorazepam 0.5 Mg Tab) 0.5 mg PO Q6H PRN PRN Reason: anxiety Stop: 04/17/24 20:13 Last Admin: 03/19/24 21:43 Dose: 0.5 mg Magnesium Hydroxide (Magnesium Hydroxide Susp 30 Ml Udc) 30 ml PO DAILY PRN PRN Reason: Constipation Stop: 04/17/24 14:57 Naltrexone HCl (Naltrexone Hcl 50 Mg Tab) 50 mg PO DAILY RENU Stop: 04/18/24 08:59 Last Admin: 03/21/24 08:08 Dose: 50 mg Pantoprazole Sodium (Pantoprazole 40 Mg Tab) 40 mg PO QAM RENU Stop: 04/18/24 08:59 Last Admin: 03/21/24 08:08 Dose: 40 mg Propranolol HCl (Propranolol Hcl 20 Mg Tab) 40 mg PO BID RENU Stop: 04/17/24 20:59 Last Admin: 03/21/24 08:07 Dose: 40 mg Risperidone (Risperidone 1 Mg Tablet) 1 mg PO BID RENU Stop: 04/18/24 20:59 Last Admin: 03/21/24 08:08 Dose: 1 mg Risperidone (Risperidone 0.25 Mg Tab) 0.5 mg PO BID PRN PRN Reason: hallucinations Stop: 04/18/24 11:33 Last Admin: 03/21/24 11:22 Dose: 0.5 mg Sodium Chloride (Sodium Chloride 0.65% Na Soln 45 Ml ([place])) 1 - 2 sprays NA PRN PRN PRN Reason: Nasal Dryness/Congestion Stop: 04/17/24 14:57 Mental Health & Subst Abuse Tx Psychiatrist Name of Psychiatrist: Inaika Psychiatrist's Date Of Appointment With Psychiatric Provider: 04/07/24 Time of Appointment with Psychiatrist: 11:20 AM Psychiatric Appointment Comment: virtual Smoking Pipes Cleaner Name of Smoking Pipes Cleaner: Andreea Smith Phone Number for Smoking Pipes Cleaner: Case Management Appointment Comment: Please follow up with your patient case manager to resume outpatient schedule. Post Discharge Appointments Primary Care Physician Name Of Family Doctor/PCP: Kinsey Mac Provider Appointment Comment: Please follow up with PCP as needed.
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
--- NOTE | 2024-03-23 10:13 | Discharge Summary ---
Date of Service March 23, 2024 History of Present Illness Delfina presented to the hospital for SI and voices telling her to hurt herself with plan to possible slit her wrists. She was admitted two weeks ago for almost identical symptoms. She denies any recent stressors. We discuss the pattern of her chronic intermittent SI and periods of command hallucinations in the absence of any other symptoms of psychosis. Her symptoms remain suggestive of BPD which she agrees is likely. She feels she comes to the hospital because the suicidal thoughts start and she can't distract from them they are "constant" and "like a loop". She then may attempt a few distraction skills but then calls Crisis and they have her come to the emergency room. Reviewed option to ask to speak with the on-call disease case manager as they may be better aware of the chronicity of her SI and may have other coping skills and suggestions Delfina can try. She is agreeable to trying this in the future. She denies any rewarding aspects of hospitalization nor anything she is trying to avoid at home. Rather feels that she likes that she feels "safe" in the hospital and with prompting expands that this is due to having staff around to talk to anytime. Reviewed that utilizing outpatient supports more when she starts to experience SI, such as on-call disease case manager may help mimic some of the support she feels the hospital environment offers and she agrees with this. She feels the haldol is not helping at all with the voices. She recalls risperidone worked well at one point in the past and wonders about trying this. One new change is that she now has private insurance though her 's work. Given this she has now started with an outpatient therapist, had one session so far. Reviewed this may allow for referrals for more intensive DBT therapy which she is open to. Physical Exam Mental Examination Appearance: Well Groomed Eye Contact: Maintains Eye Contact Motor Behavior: Unremarkable Speech: Normal (limited spontaneous speech) Mood: Euthymic and Calm Affect: Blunted and Congruent Thought Process: Intact and Linear Thought Content: Intact Hallucinations: Auditory Insight: Poor (improved) Judgement: Poor (improved) Vital Signs (Past 24 Hours) Last Vital Signs Temp 36.7 C 03/23/24 06:44 Pulse 103 H 03/23/24 06:45 Resp 16 03/23/24 06:44 BP 95/64 L 03/23/24 06:45 Pulse Ox 98 03/18/24 16:06 O2 Del Method Room Air 03/18/24 16:06 Principal Diagnosis Borderline Personality Disorder Psychiatric Data See daily stay summary. In short, safety was maintained and the patient was cooperative with care. Medication changes included d/c home Haldol and starting Risperidone 1mg BID with 0.5mg BID PRN for hallucinations and they tolerated this well. A family session was held and safety plan was completed prior to dis charge. Plan for outpatient IOP for DBT through [facility]. Day of Discharge Assessment Today the patient voices readiness for discharge. They note improvement in mood and deny thoughts to harm self or others. Thoughts remain organized and they are improved from admission. There is no evidence of psychosis. They agree to take mediations as prescribed and keep follow-up appointments. They are stable for discharge to outpatient level of care. Transition of Care Transition Of Care Record: was reviewed with the patient Advance Directives Advance Directives Information Provided: Yes Advance Directives: No Mental Health Advance Directive: No Advance Directives on File: No Living Will: No Power of Production Intern: No Advance Directives Reason:: Declines as Mental Health Visit. Risk Factors Assessment Male: No : Yes Do You Have Access To A Gun?: No Health Problems: Yes Mental Health Diagnoses: Yes Substance Use Disorders: No Previous Attempt: Yes Family History of Suicide: No Previous Psychiatric Hospitalization: Yes Hopelessness: No Protective Factors Assessment : Yes Stable Relationships: Yes Supportive Family: Yes Good Rapport with Provider: Yes Discharge Data Lab Results 03/19/24 03/21/24 07:24 07:37 Creatinine 0.84 Est Cr Clr Drug Dosing 95.6 Est GFR ( Amer) 112.0 Est GFR (Non-Af Amer) 96.6 Fasting Glucose 101 H Triglycerides 96 Cholesterol 142 LDL Cholesterol, Calc 90 VLDL Cholesterol, Calc 19 HDL Cholesterol 33 Cholesterol/HDL Ratio 4.3 [place] 0.7 Hospital Course (1) Borderline personality disorder: (2) Post traumatic stress disorder (PTSD): (3) Depression with suicidal ideation: Plan 03/22/2024: Continue medications and treatment plan 03/21/2024: Continue current medications and tx plan. 03/20/2024: Continue current medications and tx plan. 03/19/2024: The patient was admitted to the [facility] ([facility] mental health unit) on q15 min checks (behavioral with suicide precautions) for safety. The patient will participate in group, recreational, and milieu therapies and will be offered additional individual and family sessions as clinically appropriate. -Continue prior to admission medications -discontinue haldol -Start risperidone 1mg BID and 0.5mg BID prn for hallucinations -Look into options for DBT IOP given new insurance coverage Mental Health & Subst Abuse Tx Psychiatrist Name of Psychiatrist: [facility] Date Of Appointment With Psychiatric Provider: 04/07/24 Time of Appointment with Psychiatrist: 11:20 AM Psychiatric Appointment Comment: virtual Superintendent Tests Name of Superintendent Tests: Andreea Smith Phone Number for Superintendent Tests: Case Management Appointment Comment: Please follow up with your disease case manager to resume outpatient schedule. Post Discharge Appointments Primary Care Physician Name Of Family Doctor/PCP: Kinsey Mac Primary Care Provider Appointment Comment: Please follow up with PCP as needed. Contact Information Discharge Discharge [address]: [address] [place] [address] [place] [id number] Discharge Plan Discharge Items Patient Disposition: Home - Self-Care Reason For Visit: unspecifed depression Discharge Diagnosis: Borderline Personality Disorder Post Traumatic Stress Disorder Depression Condition on Discharge: Good Activity: Resume your previous activity Non-emergency contact: Primary Care Provider and Therapist Call non-emergency contact if: you have any medication questions and your symptoms worsen Follow-up/Referrals: Kinsey Chaparro PA-C [Primary Care Provider] - Diet: Regular Addtl Attending Provider Instructions: -Take Risperidone 1mg twice daily, take additional 0.5mg NEEDED for voices, anxiety -STOP HALDOL -Continue other medications -Engage in Intensive Outpatient Program Pending Studies at Discharge: No Stand-Alone Forms: My [employer], Smoking Cessation Medications and DC Order Prescriptions: New risperidone 1 mg Tablet 1 mg PO BID Qty: 60 1RF risperidone 0.5 mg tablet 0.5 mg PO BID PRN (Reason: distressing voices) Qty: 60 0RF Continued famotidine 20 mg Tablet 20 mg PO BID Eliquis 5 mg tablet 5 mg PO AMHS propranolol 40 mg tablet 40 mg PO BID omeprazole 40 mg capsule,delayed release(DR/EC) 40 mg PO QAM levothyroxine 50 mcg tablet 50 mcg PO DAILY naltrexone 50 mg tablet 50 mg PO DAILY doxepin 25 mg capsule 25 mg PO HS lorazepam 0.5 mg Tablet 0.5 mg PO Q6H PRN (Reason: anxiety) Qty: 15 0RF lithium carbonate 600 mg capsule 600 mg PO HS Qty: 30 0RF lithium carbonate 300 mg capsule 300 mg PO DAILY Qty: 30 0RF gabapentin 300 mg capsule 300 mg PO HS PRN (Reason: insomnia) 30 Days Qty: 30 0RF Rx Instructions: If Vistaril is ineffective for sleep can try additional dose of gabapentin 300mg at bedtime with scheduled gabapentin 300mg for a total bedtime dose of 600mg. hydroxyzine HCl 50 mg tablet 50 mg PO HSZ PRN (Reason: insomnia) 30 Days Qty: 15 0RF gabapentin 300 mg capsule 300 mg PO TID lacosamide [Vimpat] 50 mg Tablet 100 mg PO BID Qty: 120 0RF Discontinued haloperidol 5 mg Tablet 10 mg PO BID Qty: 120 0RF Discharge Orders: Discharge Order (Routine); Ordered 03/23/24 Ordered By: Isra Vieyra Admission Data Admit Date/Time: 03/18/24 14:58 Attending Provider: Alma Rosa Mendez Admit Provider: Alma Rosa Mendez Primary Care Provider: Kinsey Chaparro Coding [place] [address] D/C day mgmt 30 min or < Patient Type Established History Expanded Problem Focused Exam Expanded Problem Focused Medical Decision Making Moderate Complexity Diagnoses Borderline personality disorder F60.3 Post traumatic stress disorder (PTSD) F43.10 Depression with suicidal ideation F32.A; R45.851
== END 2024-03-23 17:56 | disposition home or self-care (01) | DRG 881 ==
LOC: 3S 14:58